=== PATIENT | female | born 1975 | race Caucasian/White ===

== ENCOUNTER 2023-04-02 09:42 | Emergency (ER) | payer OTHER, SELFPAY ==
[2023-04-02 09:56] VITALS: BP 116/78; PULSE 93; RESP 16; TEMP 36.6; O2SAT 100; BMI 32.9
--- NOTE | 2023-04-02 10:16 | CRLHL7_ITS ---
For Patients: As a result of the Century Cures Act, medical imaging exams and procedure reports are released immediately into your electronic medical record. You may view this report before your referring provider. If you have questions, please contact your health care provider. INDICATION: THIGH AND KNEE PAIN COMPARISON: None. TECHNIQUE: A compression venous ultrasound exam was performed of the left lower extremity using crawley-scale imaging, color Doppler and spectral Doppler analysis. FINDINGS: Sonographic imaging of the left lower extremity demonstrates normal compressibility and color Doppler venous blood flow within the common femoral vein, deep femoral vein, and the proximal greater saphenous vein. Within the thigh, the femoral vein is patent and compressible. At a lower level, the popliteal and posterior tibial veins also show normal compressibility and color Doppler venous blood flow. Limited imaging of the contralateral groin demonstrates a normal spectral waveform and color Doppler venous blood flow within the right common femoral vein. IMPRESSION: Normal venous ultrasound exam. No evidence of deep vein thrombosis within the left lower extremity. Dictated by Segun Ahn MD @ 04/02/2023 11:01:58 AM (Electronically Signed)
[2023-04-02] MEDS: ACETAMINOPHEN 500 MG TABLET 1000 MG PO (10:24)
--- NOTE | 2023-04-02 11:10 | ED_ITS ---
HPI - General Adult General Chief complaint: Extremity Pain/Injury, Lower Stated complaint: Leg pain, mono Time Seen by Provider: 04/02/23 09:58 History of Present Illness HPI narrative: 47 yo previously healthy female presenting to the ER today for pain involving her left anterolateral thigh and left knee. His crush go with good she does have a history of a previous partial ACL injury that was treated with physical therapy years ago. She also is currently recovering from mono and has been sick that for the past several weeks. She had a slip and fall injury that occurred perhaps 6 or 8 weeks ago when she was walking down a hill. Ever since then she has had some mild pain involving her left anterolateral thigh (lateral quad muscles) and sometimes down into her left knee. It has been persistent over time. She is typically able to manage it with ibuprofen. It got a little bit worse since yesterday and was not controlled with ibuprofen last night. No clear reason for to get worse. No fevers. No swelling. No redness. No bruising. No swelling or pain in her right leg. No associated hip pain or back pain. She called the clinic triage line and instructed to come to the ER to get a DVT ultrasound given the leg pain. She has no history of DVT or PE. No shortness of breath. Related Data Home Medications Medication Instructions Recorded Confirmed lisinopril 10 1 tab PO DAILY 04/02/23 04/02/23 mg-hydrochlorothiazide 12.5 mg tablet Previous Rx's Medication Instructions Recorded cyclobenzaprine 10 mg tablet 5 - 10 mg (0.5 - 1 x 10 mg) PO TID 04/02/23 PRN muscle spasm #10 tabs Allergies Allergy/AdvReac Type Severity Reaction Status Date / Time No Known Drug Allergies Allergy Verified 04/02/23 09:56 [facility] Social History Smoking Status: Never smoker How often do you have a drink containing alcohol: never AUDIT-C Alcohol total score: 0 Non-prescribed substance use: denies use Exam Narrative: Exam Narrative: Constitutional: Appears well-developed and well-nourished. Alert. Conversant. Non toxic. HENT: Head: Atraumatic. Nose: Nose normal. Mouth/Throat: Oral mucosa is clear and moist. no trismus. Pharynx normal. Tonsils symmetric. No tonsillar enlargement, erythema, or exudate. Eyes: Conjunctivae normal. EOM normal. Pupils equal, round, and reactive to light. No scleral icterus. Neck: Normal range of motion. Neck supple. No tracheal deviation present. Cardiovascular: Normal rate, regular rhythm. No gallop. No friction rub. No murmur heard. Symmetric PT and DP artery pulses Pulmonary/Chest: Effort normal. No stridor. No respiratory distress. Abdominal: Soft. Bowel sounds normal. No distension. No mass. No tenderness. No rebound. No guarding. Musculoskeletal: RUE: Normal range of motion. No tenderness. No deformity LUE: Normal range of motion. No tenderness. No deformity RLE: Normal range of motion. No edema. No tenderness. No deformity LLE: Normal range of motion. No edema. She endorses pain in the anterolateral distal half of her thigh. Is not really tender there and if anything feels better when it is palpated. Normal inspection. No redness. No warmth. No rash. No bruising. No tenderness over the lumbar spine, SI joints, hip. Norm al flexion and extension of the hip and knee. She does have a little bit of pain with flexing her knee. Examination of the knee reveals no definite ligamentous laxity but possibly as subtle anterior drawer sign. No bony tenderness over the patella, proximal tibia, proximal fibula. This does not reproduce her leg pain. Lower extremity is nontender. No calf swelling or edema. Ankle, foot are normal Lymph: No cervical adenopathy. Neurological: Alert and oriented to person, place, and time. Normal strength. CN II-VII intact. No sensory deficit. GCS eye subscore is 4. GCS verbal subscore is 5. GCS motor subscore is 6. Normal coordination Skin: Skin is warm and dry. No rash noted. No pallor. Normal capillary refill. Psychiatric: Normal mood. Normal affect. Const: Vital Signs, click to edit/add: Vital Signs - 24 hr 04/02/23 09:56 Temperature 97.9 F Pulse Rate [Right Pulse Oximeter] 93 Respiratory Rate 16 Blood Pressure [Ri ght Upper Arm] 116/78 Pulse Oximetry 100 Oxygen Delivery Me thod Room Air Course Vital Signs Vital signs: Initial Vital Signs Temperature 97.9 F 04/02/23 09:56 Temperature Source Temporal Artery Scan 04/02/23 09:56 Pulse Rate 93 04/02/23 09:56 Respiratory Rate 16 04/02/23 09:56 Blood Pressure 116/78 04/02/23 09:56 Blood Pressure Mean 90 04/02/23 09:56 Blood Pressure Position Sitting 04/02/23 09:56 Pulse Oximetry 100 04/02/23 09:56 Oxygen Delivery Method Room Air 04/02/23 09:56 Vital Signs Temperature 97.9 F 04/02/23 09:56 Pulse Rate 93 04/02/23 09:56 Respiratory Rate 16 04/02/23 09:56 Blood Pressure 116/78 04/02/23 09:56 Pulse Oximetry 100 04/02/23 09:56 Oxygen Delivery Method Room Air 04/02/23 09:56 Temperature 97.9 F 04/02/23 09:56 Pulse Rate 93 04/02/23 09:56 Respiratory Rate 16 04/02/23 09:56 Blood Pressure 116/78 04/02/23 09:56 Pulse Oximetry 100 04/02/23 09:56 Oxygen Delivery Method Room Air 04/02/23 09:56 Medical Decision Making MDM Narrative Medical decision making narrative: This is a very pleasant 47-year-old female with a distant history of a partial left ACL injury. She has had several weeks of left anterolateral thigh and knee pain after a fall. She was sent here to the ER today by clinic to be ruled out for DVT. Fortunately DVT ultrasound is negative. She is not have any symptoms of PE. At this point clinical suspicion would favor a musculoskeletal cause for pain. Given the ability to ambulate on the problem leg now for about 6 weeks, likelihood of fracture is very low. Will hold off on radiography, using shared decision-making. Discussed the potential need for MRI of her knee or her thigh for further evaluation. This is not available here in the ER today. She will need outpatient follow-up with Orthopedic surgery. She will follow-up with [place] [facility] within the next 3-7 days. Precautions for return to the are reviewed. For temporary pain management she will continue on ibuprofen. Recommended 600 mg q.6 hours p.r.n.. Add acetaminophen 1000 mg q.6 hours p.r.n.. Also add a prescription for Flexeril that she can use her muscle relaxer. Discussed sedation precautions with this. She plans to use it only if she is having pain the keeps her awake at night. Imaging Data US leg: Radiologist's impression: IMPRESSION: Normal venous ultrasound exam. No evidence of deep vein thrombosis within the left lower extremity. Discharge Plan Discharge Clinical Impression: Acute thigh pain Patient Disposition: Home, Self-Care Condition: Stable Instructions: Leg Pain (ED) Additional Instructions: Please continue to use Ibuprofen (600mg every 6 hours as needed) and Tylenol (1000mg every 6 hours as needed) for pain. Add muscle relaxers if needed, but be careful because muscle relaxers cause side effects such as drowsiness and dizziness. Please follow up with the [facility] orthopedic clinic within 3-7 days for a recheck. Call [phone] to schedule the appointment. If you have worsening symptoms such as increasing pain, numbness or weakness in your leg, fever, swelling or bruising of your leg, trouble breathing, come back to the ER right away. Prescriptions: New cyclobenzaprine 10 mg tablet 5 - 10 mg PO TID PRN (Reason: muscle spasm) Qty: 10 0RF No Action lisinopril-hydrochlorothiazide 10-12.5 mg tablet 1 tab PO DAILY Follow Up/Referrals: Ondina Chávez MD [Primary Care Provider] - Stand Alone Forms: LookIt Info Instructions
== END 2023-04-02 11:41 | disposition home or self-care (01) ==
PROVIDERS: Emergency Provider Emergency Medicine; PCP Family Medicine
DX: M79.652 Pain in left thigh (principal)
CPT/HCPCS: 93971; 99283; 99284; A9270

== ENCOUNTER 2023-05-01 12:44 | Outpatient (RCR) | payer OTHER, SELFPAY | END 2023-06-26 14:11 | disposition home or self-care (01) | PROVIDERS: PCP Family Medicine; Visit Provider Orthopaedic Surgery Sports Medicine | DX: S83.512A Sprain of anterior cruciate ligament of left knee, initial encounter (principal); M25.562 Pain in left knee; Z74.09 Other reduced mobility; R53.1 Weakness; Z51.89 Encounter for other specified aftercare | CPT/HCPCS: 97110; 97140; 97161 ==

== ENCOUNTER 2023-05-08 19:11 | Outpatient (CLI) | payer OTHER, SELFPAY ==
--- NOTE | 2023-05-08 19:45 | MR_ITS ---
[address] [address] Phone:?[phone] Fax:?[phone] Referring Physician Information: Pravin Chavez M.D. [id number] [facility] [address] Phone:?[phone] Fax:?[phone] Patient:Minh Cota D.O.B:?1975 Sex:?Female Phone:?[phone] [facility] MRN:?[id number] Exam Date:?05/08/2023 EXAM: MRI OF THE LEFT FEMUR, WITH AND WITHOUT CONTRAST CLINICAL: Evaluate osseous lesions. COMPARISONS: MRI 05/03/2023. X-rays 04/19/2023. TECHNICAL: Multiplanar multisequence MRI of the left femur was obtained without the use of contrast. Coronal STIR, coronal T1, coronal T2, axial PD fat-sat, axial T1, axial T1 fat-sat pre and post contrast and coronal T1 fat-sat pre and post contrast images of the bilateral femurs were obtained. Sagittal STIR and T1 fat-sat post contrast images of the left femur were also obtained. SEDATION: None. CONTRAST: 15 mL of dotarem was injected intravenously. FINDINGS: Multiple enhancing lesions are seen within the proximal and distal femurs bilaterally, with the proximal lesions not entirely included in the [id number]. Largest lesion within the distal right femoral diaphysis measures approximately 8.8 cm in craniocaudal length as seen on coronal series 3 image 12 with the lesion within the distal left femoral metaphysis measuring approximately 5.8 cm in craniocaudal dimension. Other femoral lesions noted more proximally. There is scattered periosteal edema about the femurs. Partially visualized osseous lesions are also seen within the imaged proximal tibias bilaterally. No discrete osseous fracture is identified. No myotendinous injury is identified. IMPRESSION: 1. Multiple lesions within the visualized femurs and imaged proximal tibias bilaterally concerning for malignancy/metastatic disease. Recommend follow-up with whole body nuclear medicine bone scan for further evaluation. NANCY Electronically signed on 05/09/2023 1:14:00 PM by Les Madrid D.O.
== END 2023-05-08 19:12 | disposition home or self-care (01) ==
LOC: MRI 19:12
PROVIDERS: PCP Family Medicine; Visit Provider Orthopaedic Surgery Sports Medicine
DX: D49.2 Neoplasm of unspecified behavior of bone, soft tissue, and skin (principal); M89.9 Disorder of bone, unspecified
CPT/HCPCS: 73720; A9575

== ENCOUNTER 2023-08-08 12:02 | Outpatient (CLI) | payer OTHER, SELFPAY ==
--- OUTSIDE RECORDS SUMMARY | 2023-08-09 18:59 | XMS_ITS | Clinical Summary ---
Author Name Unknown Organization [facility] Address [address] [place] [address] Care Team Providers Care Paint Tester Name Role Phone Elsewhere, Pcp Primary Care Provider Unavailabl e Source Comments Patient records contain information from all sites at [facility]. For routine questions regarding patient records, call [phone] during business hours, M-F 8:00 AM - 5:00 PM Central Time. Record requests for emergency care only can be directed to [phone] at any time.[facility] Allergies No known active allergies Medications Medication [...] Active Problems Problem Noted Date Diagnosed Date Sepsis 08/08/2023 Melanoma Trunk 06/04/2023 Encounters Date Type Department Care Team Description 08/09/2023 12:40 AM MERCHANDISING TEAM LEAD Ancillary Procedure Department of Radiology in [place], [place] [address] [place] [phone] Jose Cavanaugh APRN, C.N.P. Arrived 08/09/2023 12:21 AM MERCHANDISING TEAM LEAD - 08/09/2023 3:38 PM MERCHANDISING TEAM LEAD Hospital Encounter [facility], Tenth Floor [address] [place] [address] Jose Cavanaugh APRN, C.N.P. Ciaran Reese M.D. Dimou, Anastasios, M.D. Ahmad, Sumera R, M.B.B.S. Sepsis (HCC) (Primary Dx); Multiple Myeloma Not Having Achieved Remission (HCC) Discharge Disposition: Home or Self Care 08/09/2023 Clinical Communication Department of Oncology in [place], [place] [address] [place] [phone] Anahy Amezcua R.N., O.C.N. 08/09/2023 Documentation Department of Oncology in [place], [place] [address] [place] [phone] Pérez Zuniga M.D., Ph.D. 08/09/2023 Hospital Encounter [facility] Bed Planning Felicity Vargas M.D. Jhonathan Gray M.D., Ph.D. 08/08/2023 Intake [facility] 08/08/2023 Clinical Communication Department of Oncology in [place], [place] [address] [place] [phone] Cherelle Sanabria M.D. 08/06/2023 2:30 PM MERCHANDISING TEAM LEAD Clinical Communication Virtual Review in [place], [place] [address] [place] [address] 08/04/2023 Specialty Pharmacy [facility] [address] [place] [address] Demetrius Londono Jr., R.Ph. 07/29/2023 10:15 AM MERCHANDISING TEAM LEAD Telemedicine Department of Palliative Care in [place], [place] [address] [place] [phone] Valentine Kelsey M.D., M.S. Melanoma Trunk (HCC) (Primary Dx); Secondary Malignant Neoplasm Bone (HCC); Pain Cancer Associated; Palliative Care 07/26/2023 1:15 PM MERCHANDISING TEAM LEAD Telemedicine Department of Palliative Care in [place], [place] [address] [place] [phone] Marija Olivas APRN, C.N.P., M.S.N. Meka Rinaldi D.N.P., R.N., [facility] Palliative Care 07/17/2023 4:15 PM MERCHANDISING TEAM LEAD Comprehensive Visit Department of Dermatology in [place], [place] [address] [place] [phone] Naida Mejia P.A.-C., M.S. Anh Lee M.D. Nevi Multiple (Primary Dx); Melanoma Trunk (HCC); Secondary Malignant Neoplasm Bone (HCC); Screening Examination Skin Cancer; Dermatoheliosis; Tumor Skin Uncertain Behavior 07/17/2023 12:45 PM MERCHANDISING TEAM LEAD Ancillary Procedure Department of Ophthalmology 07/17/2023 11:45 AM MERCHANDISING TEAM LEAD Office Visit Department of Ophthalmology in [place], [place] [address] [place] [phone] Wolfgang Larose M.D. Hemorrhage Retinal Bilateral (Primary Dx); Melanoma Trunk (HCC) 07/17/2023 11:30 AM MERCHANDISING TEAM LEAD Ancillary Procedure Department of Ophthalmology in [place], [place] [address] [place] [phone] Phi Palm M.D., Ph.D. Hemorrhage Retinal Bilateral 07/17/2023 10:40 AM MERCHANDISING TEAM LEAD Ancillary Procedure Department of Ophthalmology in [place], [place] [address] [place] [phone] Phi Palm M.D., Ph.D. 07/17/2023 10:00 AM MERCHANDISING TEAM LEAD Procedure visit Department of Ophthalmology in [place], [place] [address] [place] [phone] Phi Palm M.D., Ph.D. Suleiman Vargas Hemorrhage Retinal Bilateral 07/17/2023 12:10 AM MERCHANDISING TEAM LEAD Ancillary Procedure Department of Dermatology 07/17/2023 12:05 AM MERCHANDISING TEAM LEAD Ancillary Procedure Department of Dermatology 07/17/2023 Ancillary Procedure Department of Ophthalmology 07/16/2023 Clinical Communication Department of Palliative Care in [place], [place] [address] [place] [phone] Meka Rinaldi D.N.P., R.N., [facility] 07/10/2023 Orders Only Department of Ophthalmology in [place], [place] [address] [place] [phone] Ani Bashir 07/05/2023 2:30 PM MERCHANDISING TEAM LEAD Comprehensive Visit Department of Ophthalmology in [place], [place] [address] [place] [phone] Wolfgang Larose M.D. Hemorrhage Retinal Bilateral (Primary Dx) 07/05/2023 Clinical Communication Department of Oncology in [place], [place] [address] [place] [phone] Anahy Amezcua R.N., O.C.N. Sx - retinal hemorrhaging 07/04/2023 12:20 PM MERCHANDISING TEAM LEAD Office Visit Department of Oncology in [place], [place] [address] [place] [address] Pérez Zuniga M.D., Ph.D. Melanoma Trunk (HCC) (Primary Dx); Nausea 07/04/2023 10:30 AM MERCHANDISING TEAM LEAD Clinical Support Department of Palliative Care in [place], [place] [address] [place] [address] Valentine Kelsey M.D., M.S. Inés Wiley R.Makenzie. Melanoma Trunk (HCC); Nausea 07/04/2023 9:36 AM MERCHANDISING TEAM LEAD - 07/04/2023 11:59 PM MERCHANDISING TEAM LEAD Hospital Encounter Department of Laboratory Medicine and Pathology, [facility] in [place], [place] [address] [place] [phone] Pérez Zuniga M.D., Ph.D. Melanoma Trunk (HCC); Secondary Malignant Neoplasm Bone (HCC); Other Jail Current Drug Therapy Discharge Disposition: Home or Self Care 07/04/2023 Clinical Communication Department of Ophthalmology in [place], [place] [address] [place] [phone] Provider, Unknown 07/04/2023 Clinical Communication Department of Palliative Care in [place], [place] [address] [place] [phone] Inés Wiley, R.N. 07/01/2023 3:00 PM MERCHANDISING TEAM LEAD Telemedicine Department of Palliative Care in [place], [place] [address] [place] [phone] Valentine Kelsey M.D., M.S. Melanoma Trunk (HCC) (Primary Dx); Nausea; Pain Cancer Associated; Palliative Care 07/01/2023 Clinical Communication [facility] [address] [place] [phone] Cherelle Brooks C.Ph.T. Redirect Prescriptions 06/24/2023 Clinical Communication Department of Palliative Care in [place], [place] [address] [place] [phone] Valentine Kelsey M.D., M.S. Rx Denial (XTAMPZA ER 9 MG CAPSULES) 06/21/2023 8:30 AM MERCHANDISING TEAM LEAD Comprehensive Visit Department of Palliative Care in [place], [place] [address] [place] [phone] Pérez Zuniga M.D., Ph.D. Valentine Kelsey M.D., M.S. Rachelle Oliver R.N. Melanoma Trunk (HCC); Secondary Malignant Neoplasm Bone (HCC) 06/20/2023 4:40 PM MERCHANDISING TEAM LEAD Office Visit Department of Oncology in [place], [place] [address] [place] [phone] Pérez Zuniga M.D., Ph.D. Melanoma Trunk (HCC) (Primary Dx); Secondary Malignant Neoplasm Bone (HCC); Other [place] Current Drug Therapy 06/20/2023 3:00 PM MERCHANDISING TEAM LEAD Nurse Only Department of Oncology in [address] [phone] Laura Dalal M.D. Akosua Liz D.N.PSantosh, R.N. 06/20/2023 12:07 PM MERCHANDISING TEAM LEAD - 06/20/2023 11:59 PM MERCHANDISING TEAM LEAD Hospital Encounter Department of Cardiovascular Diseases in [address] [phone] Pérez Zuniga M.D., Ph.D. Melanoma Trunk (HCC); Secondary Malignant Neoplasm Bone (HCC); Other [place] Current Drug Therapy Discharge Disposition: Home or Self Care 06/20/2023 11:46 AM MERCHANDISING TEAM LEAD - 06/20/2023 12:06 PM MERCHANDISING TEAM LEAD Hospital Encounter Department of Laboratory Medicine and Pathology, [facility] in [address] [phone] Pérez Zuniga M.D., Ph.D. Melanoma Trunk (HCC); Secondary Malignant Neoplasm Bone (HCC) Discharge Disposition: Home or Self Care 06/17/2023 7:00 AM MERCHANDISING TEAM LEAD Clinical Communication Virtual Review in [place], [place] [address] [place] [address] Pre-visit Intake 06/10/2023 Clinical Communication Department of Oncology in [address] [phone] Akosua Liz D.N.P., R.N. 06/05/2023 Clinical Communication [facility] [address] [place] [phone] Joanne Yoo C.Ph.T. Specialty Medication Delivery 06/05/2023 Specialty Pharmacy [facility] [address] [place] [phone] Yessi Patel, Pharm.D., R.Ph. Melanoma Trunk (HCC) (Primary Dx) 06/05/2023 Specialty Pharmacy [facility] [address] [place] [phone] Yessi Patel, Pharm.D., R.Ph. 06/05/2023 Clinical Communication Department of Oncology in [place], [place] [address] [place] [phone] Anahy Amezcua R.N., O.C.N. 06/04/2023 4:40 PM MERCHANDISING TEAM LEAD Education Department of Oncology in [place], [place] [address] [place] [phone] Pérez Zuniga M.D., Ph.D. Anahy Amezcua R.N., O.C.N. Melanoma Trunk (HCC); Secondary Malignant Neoplasm Bone (HCC) 06/04/2023 2:20 PM MERCHANDISING TEAM LEAD Comprehensive Visit Department of Oncology in [place], [place] [address] [place] [phone] Pérez Zuniga M.D., Ph.D. Melanoma Trunk (HCC) (Primary Dx); Secondary Malignant Neoplasm Bone (HCC); Other Jail Current Drug Therapy 06/04/2023 7:35 AM MERCHANDISING TEAM LEAD Ancillary Procedure Department of Radiology in [place], [place] [address] [place] [phone] Pérez Zuniga M.D., Ph.D. Melanoma Trunk (HCC); Secondary Malignant Neoplasm Bone (HCC) 06/04/2023 7:35 AM MERCHANDISING TEAM LEAD Ancillary Procedure Department of Radiology in [place], [place] [address] [place] [address] Pérez Zuniga M.D., Ph.D. Melanoma Trunk (HCC); Secondary Malignant Neoplasm Bone (HCC) 06/04/2023 Orders Only [facility] [address] [place] [phone] Joy Hernandez, PharmSantoshDSantosh, R.Ph. 05/30/2023 1:00 PM MERCHANDISING TEAM LEAD Lab RST RO LMP [address] [place] [phone] Naida Mejia P.A.-C., M.S. Melanoma Trunk (HCC); Secondary Malignant Neoplasm Bone (HCC) 05/29/2023 5:50 PM MERCHANDISING TEAM LEAD - 05/29/2023 11:59 PM MERCHANDISING TEAM LEAD Hospital Encounter Department of Radiology, [facility] in [place], [place] [address] [place] [address] Naida Mejia P.A.-C., M.S. Melanoma Trunk (HCC); Secondary Malignant Neoplasm Bone (HCC) Discharge Disposition: Home or Self Care 05/29/2023 5:21 PM MERCHANDISING TEAM LEAD - 05/29/2023 5:49 PM MERCHANDISING TEAM LEAD Hospital Encounter Department of Laboratory Medicine and Pathology, [facility] in [place], [place] [address] [place] [address] Naida Mejia P.A.-C., M.S. Melanoma Trunk (HCC); Secondary Malignant Neoplasm Bone (HCC) Discharge Disposition: Home or Self Care 05/29/2023 2:15 PM MERCHANDISING TEAM LEAD Admin Visit Department of Oncology in [place], [place] [address] [place] [phone] 05/29/2023 Clinical Communication Department of Oncology in [place], [place] [address] [place] [phone] Naida Mejia P.A.-C., M.S. Pre-visit Testing Orders 05/28/2023 Clinical Communication Department of Oncology in [place], [place] [address] [place] [phone] Naida Mejia P.A.-C., M.S. Pre-visit Testing Orders (New Reg) 05/24/2023 7:55 AM MERCHANDISING TEAM LEAD Lab RST RO LMP [address] [place] [phone] Naida Mejia P.A.-C., M.S. Melanoma Trunk (HCC); Secondary Malignant Neoplasm Bone (HCC) 05/23/2023 Clinical Communication Department of Oncology in [place], [place] [address] [place] [phone] Naida Mejia P.A.-C., M.S. 05/23/2023 Clinical Communication Department of Oncology in [place], [place] [address] [place] [phone] Provider, Unknown [facility] (Med Onc) 05/22/2023 Clinical Communication Department of Oncology in [place], [place] [address] [place] [phone] Naida Mejia P.A.-C., M.S. 05/22/2023 Clinical Communication Department of Oncology in [place], [place] [address] [place] [phone] Prescheduling, Provider Pre-visit Intake (NEW REG ) 05/13/2023 11:59 PM CDT Hospital Encounter Department of Radiology, [facility], in [place], [place] [address] [place] [address] Lacho Joshi M.D. Canceled (Patient: Request) Discharge [...] = 0.6 oz pur e alcohol) Occasional [facility] Utilities Answer Date Recorded In the past [...] situation today? I have a [facility] place to live 07/10/2023 Sex and Gender Information Value Date Recorded Sex Assigned at Female 05/31/2023 8:26 AM MERCHANDISING TEAM LEAD Gender Identity Female 05/31/2023 8:26 AM MERCHANDISING TEAM LEAD Sexual Orientation Straight 05/31/2023 8: 26 AM MERCHANDISING TEAM LEAD Last Filed Vital Signs Vital Sign Reading Time Taken Comments Blood Pressure 97/61 08/09/2023 3:00 PM MERCHANDISING TEAM LEAD Pulse 96 08/09/2023 3:00 PM MERCHANDISING TEAM LEAD Temperature 36.9 ??C (98.5 ??F) 08/09/2023 3:00 PM CS T Respiratory Rate 18 08/09/2023 3:00 PM MERCHANDISING TEAM LEAD Oxygen Saturation 99% 08/09/2023 3:00 PM MERCHANDISING TEAM LEAD Inhaled Oxygen Concentration - - Weight 79.3 kg (174 lb 13.2 oz) 08/09/2023 7:30 AM MERCHANDISING TEAM LEAD Height 154.9 cm (5' 1) 08/09/2023 8:00 AM MERCHANDISING TEAM LEAD Body Mass Index 33.03 08/09/2023 7:30 AM MERCHANDISING TEAM LEAD Plan of Treatment Upcoming Encounters Date Type Department Care Team (Late st Contact Info) Description 08/19/2023 6:40 AM MERCHANDISING TEAM LEAD Appointment Department of Laboratory Medicine and Pathology, [facility] in [place], [place] [address] [place] [phone] Pérez Zuniga M.D., Ph.D. [address] [place] [phone] 08/19/2023 7:00 AM MERCHANDISING TEAM LEAD Ancillary Procedure Department of Cardiovascular Medicine in [address] [phone] Pérez Zuniga M.D., Ph.D. [address] [place] [phone] 08/19/2023 9:00 AM MERCHANDISING TEAM LEAD Appointment Department of Radiology, [facility] in [place], [place] [address] [place] [phone] Pérez Zuniga M.D., Ph.D. [address] [place] [phone] 08/19/2023 3:40 PM MERCHANDISING TEAM LEAD Office Visit Department of Oncology in [address] [phone] Zhane Granados APRN, C.N.P. [address] [place] [phone] 08/21/2023 10:15 AM MERCHANDISING TEAM LEAD Clinical Support Department of Palliative Care in [place], [place] [address] [place] [address] Serenity Kelsey, Eliane. [address] [place] [address] Meka Rinaldi D.N.P., R.N., [facility] Health Maintenance Due Date Last Done Comments CT Colonography 1977 Cervical Cancer Screening 1977 Cologuard 1977 Colonoscopy 1977 Colorectal Cancer Screening 1977 FIT 1977 Generalized Anxiety (MOJGAN-7) 1977 HIV Screening 1977 Hepatitis B Vaccines (1 of 3 - 3-dose series) 1977 Hepatitis C Screening 1977 Depression Screening (Annual PHQ-2) 07/15/2023 Controlled Substance Agreement 08/09/2023 Controlled Substance Monitoring (PHQ-9) 08/09/2023 Controlled Substance Monitoring 08/09/2023 Opioid Risk Tool (ORT) 08/09/2023 PEG assessment for Opioid therapy 08/09/2023 Mammogram 10/23/2023 10/22/2022 Creatinine Level (Kidney Function Test) 08/09/2024 08/09/2023, 07/04/2023, 06/20/2023, Additional history exists Potassium Level 08/09/2024 08/09/2023, 07/16, 07/04/2023, Additional history exists Sodium Level 08/09/2024 08/09/2023, 07/16, 07/04/2023, Additional history exists Lipid (Cholesterol) Screening 08/12/2025 08/12/2020 Fasting Glucose for Diabetes Screening 08/09/2026 08/09/2023, 08/09/2023, 07/04/2023, Additional history exists DTaP,Tdap,and Td Vaccines (4 - Td or Tdap) 04/13/2031 04/13/2021, 06/26/2010, 07/28/2003, Additional history exists COVID-19 Vaccine Completed 06/05/2023, , 04/19/2021, Additional history exists Influenza Vaccine Completed 06/05/2023, , 03/23/2021, Additional history exists Pneumococcal vaccine (0-64 years) Aged Out No longer eligible based on patient's age to complete this topic Procedures Procedure Name Priority Date/Time Associated Diagnosis Comments HEPATIC FUNCTION PANEL, S Timed 08/09/2023 12:22 PM MERCHANDISING TEAM LEAD US GALLBLADDER AND OR BILIARY DUCTS RAD - Semiurgent (Fast; most ED patients; some inpatients) 08/09/2023 2:44 AM MERCHANDISING TEAM LEAD INTERPRETATION OF OUTSIDE CT ABDOMEN AND OR PELVIS RAD - Semiurgent (Fast; most ED patients; some inpatients) 08/09/2023 2:14 AM MERCHANDISING TEAM LEAD ECG STAT 08/09/2023 12:49 AM MERCHANDISING TEAM LEAD VBG & LYTES CG8+, POCT, B STAT 08/09/2023 12:49 AM MERCHANDISING TEAM LEAD LACTATE FOR SEPSIS WITH REFLEX, POCT STAT 08/09/2023 12:49 AM MERCHANDISING TEAM LEAD LIPASE, S/P STAT 08/09/2023 12:49 AM MERCHANDISING TEAM LEAD HEPATIC FUNCTION PANEL, S STAT 08/09/2023 12:49 AM MERCHANDISING TEAM LEAD BASIC METABOLIC PANEL, S/P STAT 08/09/2023 12:49 AM MERCHANDISING TEAM LEAD CBC WITH DIFFERENTIAL, B STAT 08/09/2023 12:49 AM MERCHANDISING TEAM LEAD OUTSIDE CT BODY Routine 08/08/2023 6:45 PM MERCHANDISING TEAM LEAD OUTSIDE DX CHEST Routine 08/08/2023 6:10 PM MERCHANDISING TEAM LEAD DERMATOPATHOLOGY Routine 07/17/2023 4:41 PM MERCHANDISING TEAM LEAD 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) Screening Examination Skin Cancer Dermatoheliosis Nevi Multiple ANGIOGRAPHY - OU - BOTH EYES Routine 07/17/2023 12:55 PM MERCHANDISING TEAM LEAD Hemorrhage Retinal Bilateral OPHTHALMOLOGY IMAGE EXAM Routine 07/17/2023 12:45 PM MERCHANDISING TEAM LEAD FUNDUS PHOTOS - OU - BOTH EYES Routine 07/17/2023 11:52 AM MERCHANDISING TEAM LEAD Hemorrhage Retinal Bilateral DERMATOLOGY IMAGE EXAM Routine 12:10 AM MERCHANDISING TEAM LEAD DERMATOLOGY IMAGE EXAM Routine 12:05 AM MERCHANDISING TEAM LEAD OPHTHALMOLOGY IMAGE EXAM Routine 07/17/2023 12:00 AM MERCHANDISING TEAM LEAD ECG Routine 07/04/2023 10:08 AM MERCHANDISING TEAM LEAD 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) Other [place] Current Drug Therapy CBC WITH DIFFERENTIAL, B Routine 07/04/2023 9:50 AM MERCHANDISING TEAM LEAD 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) Other Jail Current Drug Therapy THYROID FUNCTION CASCADE, S Routine 07/04/2023 9:49 AM MERCHANDISING TEAM LEAD 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) Other [place] Current Drug Therapy COMPREHENSIVE METABOLIC PANEL, S/P Routine 07/04/2023 9:49 AM MERCHANDISING TEAM LEAD 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) Other [place] Current Drug Therapy (TTE) 2D ECHO DOPPLER COLOR Routine 06/20/2023 1:28 PM MERCHANDISING TEAM LEAD 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) Other Jail Current Drug Therapy TYPE AND SCREEN Routine 06/20/2023 12:01 PM MERCHANDISING TEAM LEAD 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) THYROID FUNCTION CASCADE, S Routine 06/20/2023 12:01 PM MERCHANDISING TEAM LEAD 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) COMPREHENSIVE METABOLIC PANEL, S/P Routine 06/20/2023 12:01 PM MERCHANDISING TEAM LEAD 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) CBC WITH DIFFERENTIAL, B Routine 06/20/2023 12:01 PM MERCHANDISING TEAM LEAD 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) ECG Routine 06/04/2023 4:02 PM MERCHANDISING TEAM LEAD 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) INTERPRETATION OF OUTSIDE NM PET SCAN RAD - Routine (most inpatients and all outpatients) 06/04/2023 7:56 AM MERCHANDISING TEAM LEAD 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) INTERPRETATION OF OUTSIDE MR EXTREMITY RAD - Routine (most inpatients and all outpatients) 06/04/2023 7:54 AM MERCHANDISING TEAM LEAD 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) MR BRAIN WITHOUT AND WITH IV CONTRAST RAD - Routine (most inpatients and all outpatients) 05/29/2023 7:09 PM MERCHANDISING TEAM LEAD 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) TX T4 FREE Routine 05/29/2023 5:35 PM MERCHANDISING TEAM LEAD THYROPEROXIDASE (TPO) ABS, S Routine 05/29/2023 5:35 PM MERCHANDISING TEAM LEAD THYROID FUNCTION CASCADE, S Routine 05/29/2023 5:35 PM MERCHANDISING TEAM LEAD 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) LACTATE DEHYDROGENASE (LD), S Routine 05/29/2023 5:35 PM MERCHANDISING TEAM LEAD 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) COMPREHENSIVE METABOLIC PANEL, S/P Routine 05/29/2023 5:35 PM MERCHANDISING TEAM LEAD 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) CBC WITH DIFFERENTIAL, B Routine 05/29/2023 5:35 PM MERCHANDISING TEAM LEAD 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) OUTSIDE NM PET Routine 05/15/2023 11:00 AM CDT BRAF/KIT MUTATION ANALYSIS, TUMOR Routine 05/13/2023 8:27 AM CDT 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) PATHOLOGY REVIEW OF OUTSIDE MATERIAL Routine 05/13/2023 1:26 AM CDT 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) OUTSIDE DX CHEST Routine 05/09/2023 1:45 PM CDT from Last 3 Months Results * (ABNORMAL) Hepatic Function Panel (08/09/2023 12:22 PM MERCHANDISING TEAM LEAD) Only the most recent of2 resultswithin the time period is included. Bilirubin, Total, S 1.3(H) 0.0 - 1.2 mg/dL 08/09/2023 1:29 PM MERCHANDISING TEAM LEAD DTL Bilirubin, Direct, S 1.1(H) 0.0 - 0.3 mg/dL 08/09/2023 1:29 PM MERCHANDISING TEAM LEAD DTL Aspartate Aminotransferase (AST), S 154(H) 8 - 43 U/L 08/09/2023 1:29 PM MERCHANDISING TEAM LEAD DTL Alanine Aminotransferase (ALT), S 127(H) 7 - 45 U/L 08/09/2023 1:29 PM MERCHANDISING TEAM LEAD DTL Alkaline Phosphatase, S 396(H) 35 - 104 U/L 08/09/2023 1:29 PM MERCHANDISING TEAM LEAD DTL Albumin, S 3.5 3.5 - 5.0 g/dL 08/09/2023 1:29 PM MERCHANDISING TEAM LEAD DTL Protein, Total, S 6.2(L) 6.3 - 7.9 g/dL 08/09/2023 1:29 PM MERCHANDISING TEAM LEAD DTL Blood (Blood, Venous) 08/09/2023 12:22 PM MERCHANDISING TEAM LEAD 08/09/2023 1:14 PM MERCHANDISING TEAM LEAD Lesvia Ma APRN, C.N.P., M.S.N. LA B BLOOD ADD-ON [facility] [address] [place] [address], [facility] DTL [facility] [address] [place] [address] * US Gallbladder and or Biliary Ducts (08/09/2023 2:44 AM MERCHANDISING TEAM LEAD) Anatomical Region Laterality Modality Abdomen, Ultrasound RST LOS, Ultrasound ARZ LOS, Ultrasound FLA LOS N/A Ultrasound Impressions 08/09/2023 8:05 AM MERCHANDISING TEAM LEAD Cholelithiasis without evidence of acute cholecystitis. Narrative 08/09/2023 8:05 AM MERCHANDISING TEAM LEAD EXAM: US GALLBLADDER AND OR BILIARY DUCTS COMPARISON: 07/19/2023 CT abdomen pelvis. FINDINGS: Gallbladder: Sludge/non-shadowing gallstones within the nondistended gallbladder. No wall thickening or pericholecystic fluid. ??Negative sonographic Tello sign. Intrahepatic ducts: Not dilated. Common duct: Not dilated. Aorta: Normal caliber. Procedure Note Delano Sanders M.D. - 08/09/2023 EXAM: US GALLBLADDER AND OR BILIARY DUCTS COMPARISON: 07/19/2023 CT abdomen pelvis. FINDINGS: Gallbladder: Sludge/non-shadowing gallstones within the nondistendedgallbladder. No wall thickening or pericholecystic fluid. Negativesonographic Tello sign. Intrahepatic ducts: Not dilated. Common duct: Not dilated. Aorta: Normal caliber. IMPRESSION: Cholelithiasis without evidence of acute cholecystitis. Jose Cavanaugh APRN, C.N.P. IMG US TX OCEDURES * Interpretation of Outside CT Abdomen and or Pelvis (08/09/2023 2:14 AM MERCHANDISING TEAM LEAD) Anatomical Region Laterality Modality Abdomen, Pelvis, Abdominal R ST LOS, Abdominal ARZ LOS, Abdominal FLA LOS, Other N/A Computed Tomography Impressions 08/09/2023 5:35 AM MERCHANDISING TEAM LEAD 1. ??No evidence of cholangitis. 2. There is a new 13 x 20 mm nodule in the right lower lobe (09/04). This lesion has an irregular, ground glass border and contains an air bronchogram. Infection and metastatic disease are in the differential. 3. Interval increased size in multiple partially treated bone metastases. Narrative 08/09/2023 5:35 AM MERCHANDISING TEAM LEAD EXAM: ??INTERPRETATION OF OUTSIDE CT ABDOMEN AND OR PELVIS COMPARISON: ??05/15/2023 PET/CT Outside CT abdomen pelvis with IV contrast performed 08/08/2023. FINDINGS: There is a new 13 x 20 mm nodule in the right lower lobe (/). This lesion has an irregular, ground glass border and contains an air bronchogram. Infection and metastatic disease are in the differential. Marked interval reduced size of the masses described on the PET CT from 05/15/23 as abutting the uterus and cecum. These may represent metastatic disease to the ovaries - the right ovary contains a dominant cystic structure (2/104). The left ovary is enlarged with a complex multicystic structure, with hyperdense components (HU 38 2/121). Consider pelvic ultrasound for more detailed evaluation of the ovaries. There is a 2.7 x 4 cm solid, enhancing ovoid masslike lesion along the left uterine body which may represent a fibroid as this does not appear to have increased uptake on PET (2/122). Prominent adnexal vasculature bilaterally. Faint layering sludge within the nondistended gallbladder. Trace pericholecystic fluid, may be partially related to volume averaging. Nonacute appearance of the liver, spleen, pancreas, adrenal glands. Hepatic cyst or hemangioma, stable compared to the PET CT. No free intra-peritoneal air or ascites. Normal caliber small and large bowel. Negative appendix. The urinary bladder is unremarkable. No abdominal or pelvic lymphadenopathy. Innumerable osseous lesions, many of which have increased in size. For example, the ovoid lytic lesion in the left femoral neck measures 2.5 x 1.6 cm (; previously 2.1 x 1.3 cm), the lesion in the right femoral neck measures 2.3 x 2.6 cm (; previously 2.2 x 1.7 cm), and 1.1 x 1.4 cm at T8 (, ??previously 0.8 x 1.1 cm). These lesions appear treated, with sclerotic rims and some increased internal ossification is some of them. Stable height loss at the T10 superior endplate. Procedure Note Serenity Mireles M.D. - 08/09/2023 EXAM: INTERPRETATION OF OUTSIDE CT ABDOMEN AND OR PELVIS COMPARISON: 05/15/2023 PET/CT Outside CT abdomen pelvis with IV contrast performed 08/08/2023. FINDINGS: There is a new 13 x 20 mm nodule in the right lower lobe (09/04). Thislesion has an irregular, ground glass border and contains an airbronchogram. Infection and metastatic disease are in the differential. Marked interval reduced size of the masses described on the PET CT from05/15/23 as abutting the uterus and cecum. These may represent metastaticdisease to the ovaries - the right ovary contains a dominant cysticstructure (2/104). The left ovary is enlarged with a complex multicystic structure, with hyperdense components(HU 38 2/121). Consider pelvic ultrasound for more detailed evaluation ofthe ovaries. There is a 2.7 x 4 cm solid, enhancing ovoid masslike lesion along theleft uterine body which may represent a fibroid as this does not appear tohave increased uptake on PET (2/122). Prominent adnexal vasculature bilaterally. Faint layering sludge within the nondistended gallbladder. Tracepericholecystic fluid, may be partially related to volume averaging. Nonacute appearance of the liver, spleen, pancreas, adrenal glands.Hepatic cyst or hemangioma, stable compared to the PET CT. No freeintra-peritoneal air or ascites. Normal caliber small and large bowel.Negative appendix. The urinary bladder is unremarkable. No abdominal or pelviclymphadenopathy. Innumerable osseous lesions, many of which have increased in size. Forexample, the ovoid lytic lesion in the left femoral neck measures 2.5 x1.6 cm (; previously 2.1 x 1.3 cm), the lesion in the right femoralneck measures 2.3 x 2.6 cm (; previously 2.2 x 1.7 cm), and 1.1 x 1.4 cm at T8 (, previously 0.8 x1.1 cm). These lesions appear treated, with sclerotic rims and someincreased internal ossification is some of them. Stable height loss at theT10 superior endplate. IMPRESSION: 1. No evidence of cholangitis. 2. There is a new 13 x 20 mm nodule in the right lower lobe (09/04). Thislesion has an irregular, ground glass border and contains an airbronchogram. Infection and metastatic disease are in the differential. 3. Interval increased size in multiple partially treated bonemetastases. Jose Cavanaugh APRN, C.N.P. IMG CT TX OCEDURES * ECG 12 Lead (08/09/2023 12:49 AM MERCHANDISING TEAM LEAD) Only the most recent of3 resultswithin the time period is included. Ventricular Rate ECG/Min 66 BPM MUSE TX Interval 150 ms MUSE QRSD Interval 86 ms MUSE QT Interval 456 ms MUSE QTC Interval 478 ms MUSE P [place] 52 degrees MUSE R [place] 80 degrees MUSE T Wave [place] 86 degrees MUSE 08/09/2023 12:4 9 AM MERCHANDISING TEAM LEAD 08/09/2023 12:51 AM MERCHANDISING TEAM LEAD Impressions MUSE - 08/09/2023 12:51 AM MERCHANDISING TEAM LEAD Normal sinus rhythm Low anterior forces Nonspecific T wave abnormality When compared with ECG of 04-JUL-2023 10:08, Anterior forces have decreased T waves have changed Reviewed by BREANNA Whiting Narrative Procedure Note Jordan García M.D. - 08/09/2023 IMPRESSION: Normal sinus rhythm Low anterior forces Nonspecific T wave abnormality When compared with ECG of 04-JUL-2023 10:08, Anterior forces have decreased T waves have changed Reviewed by BREANNA Whiting Jose Cavanaugh APRN, C.N.P. ECG ORDER DANIEL MUSE NA * Lactate for Sepsis with Reflex, POCT (08/09/2023 12:49 AM MERCHANDISING TEAM LEAD) Pathologist [facility] [place] Lactate, POCT 1.33 0.50 - 2.20 mmol/L 08/09/2023 1:01 AM MERCHANDISING TEAM LEAD PCLX Blood (Blood, Venous) 08/09/2023 12:49 AM MERCHANDISING TEAM LEAD 08/09/2023 12:49 AM MERCHANDISING TEAM LEAD Jose Cavanaugh APRN, C.N.P. LAB POCT ORDERABLES - DEVICE POC [facility] [address] [place] [address], [place] PCLX [facility] POC [address] [place] [address] * (ABNORMAL) Venous Blood Gas and Electrolytes CG8+, POCT (08/09/2023 12:49 AM MERCHANDISING TEAM LEAD) Sample Site, POCT Venstick 08/09/2023 1:01 AM MERCHANDISING TEAM LEAD PCLX Comment: ----ADDITIONAL INFORMATION---- Performed at the Point of Care pH, Venous, POCT, B 7.37 7.32 - 7.43 08/09/2023 1:01 AM MERCHANDISING TEAM LEAD PCSM Comment: ----ADDITIONAL INFORMATION---- Performed at the Point of Care pCO2, Venous, POCT, B 35(L) 41 - 51 mm Hg 08/09/2023 1:01 AM MERCHANDISING TEAM LEAD PCSM Comment: ----ADDITIONAL INFORMATION---- Performed at the Point of Care pO2, Venous, POCT, B 36 Not Applicable mm Hg 08/09/2023 1:01 AM MERCHANDISING TEAM LEAD PCSM Comment: ----ADDITIONAL INFORMATION---- Performed at the Point of Care Base Excess, Venous, POCT, B -5 Not Applicable mmol/L 08/09/2023 1:01 AM MERCHANDISING TEAM LEAD PCSM Comment: ----ADDITIONAL INFORMATION---- Performed at the Point of Care HCO3, Venous, POCT, B 20 Not Applicable mmol/L 08/09/2023 1:01 AM MERCHANDISING TEAM LEAD PCSM Comment: ----ADDITIONAL INFORMATION---- Performed at the Point of Care Sodium, POCT, B 136 135 - 145 mmol/L 08/09/2023 1:01 AM MERCHANDISING TEAM LEAD PCLX Comment: ----ADDITIONAL INFORMATION---- Performed at the Point of Care Potassium, POCT, B 3.3(L) 3.6 - 5.2 mmol/L 08/09/2023 1:01 AM MERCHANDISING TEAM LEAD PCLX Comment: ----ADDITIONAL INFORMATION---- Performed at the Point of Care Calcium, Ionized, POCT, B 4.60(L) 4.65 - 5.30 mg/dL 08/09/2023 1:01 AM MERCHANDISING TEAM LEAD PCLX Comment: ----ADDITIONAL INFORMATION---- Performed at the Point of Care Glucose, POCT, B 135 70 - 140 mg/dL 08/09/2023 1:01 AM MERCHANDISING TEAM LEAD PCLX Comment: ----ADDITIONAL INFORMATION---- Performed at the Point of Care Hematocrit, POCT, B 31.0(L) 35.5 - 44.9 % 08/09/2023 1:01 AM MERCHANDISING TEAM LEAD PCLX Comment: ----ADDITIONAL INFORMATION---- Performed at the Point of Care Blood (Blood, Venous) 08/09/2023 12:49 AM MERCHANDISING TEAM LEAD 08/09/2023 12:49 AM MERCHANDISING TEAM LEAD Jose Cavanaugh APRN C.N.P. LAB POCT ORDERABLES - DEVICE Performing Organization Address City/State/[facility] Co de Phone Number POC [facility] [address] [place] [address], [facility] PCLX [facility] POC [address] [place] [address] PCSM [facility] POC [address] [place] [id number] * (ABNORMAL) CBC with Differential, Blood (08/09/2023 12:49 AM MERCHANDISING TEAM LEAD) Only the most recent of4 resultswithin the time period is included. Hemoglobin 10.8(L) 11.6 - 15.0 g/dL 08/09/2023 1:00 AM MERCHANDISING TEAM LEAD STMA Hematocrit 32.0(L) 35.5 - 44.9 % 08/09/2023 1:00 AM MERCHANDISING TEAM LEAD STMA Erythrocytes 3.33(L) 3.92 - 5.13 x10(12)/L 08/09/2023 1:00 AM MERCHANDISING TEAM LEAD STMA MCV 96.1 78.2 - 97.9 fL 08/09/2023 1:00 AM MERCHANDISING TEAM LEAD STMA RBC Distrib Width 14.1 12.2 - 16.1 % 08/09/2023 1:00 AM MERCHANDISING TEAM LEAD STMA Platelet Count 226 157 - 371 x10(9)/L 08/09/2023 1:00 AM MERCHANDISING TEAM LEAD STMA Leukocytes 7.9 3.4 - 9.6 x10(9)/L 08/09/2023 1:00 AM MERCHANDISING TEAM LEAD STMA Neutrophils 6.54(H) 1.56 - 6.45 x10(9)/L 08/09/2023 1:00 AM MERCHANDISING TEAM LEAD PM Lymphocytes 1.14 0.95 - 3.07 x10(9)/L 08/09/2023 1:00 AM MERCHANDISING TEAM LEAD STMA Monocytes 0.14(L) 0.26 - 0.81 x10(9)/L 08/09/2023 1:00 AM MERCHANDISING TEAM LEAD STMA Eosinophils <0.03 0.03 - 0.48 x10(9)/L 08/09/2023 1:00 AM MERCHANDISING TEAM LEAD STMA Basophils 0.04 0.01 - 0.08 x10(9)/L 08/09/2023 1:00 AM MERCHANDISING TEAM LEAD STMA Blood (Blood, Venous) 08/09/2023 12:49 AM MERCHANDISING TEAM LEAD 08/09/2023 12:58 AM MERCHANDISING TEAM LEAD Jose Cavanaugh APRN, C.N.P. LAB BLOOD ADD-ON [facility] [address] [place] [address], [facility] STMA [facility] [address] [place] [address] * (ABNORMAL) Lipase (08/09/2023 12:49 AM MERCHANDISING TEAM LEAD) Lipase, S 79(H) 13 - 60 U/L 08/09/2023 1: 51 AM MERCHANDISING TEAM LEAD DTL Blood (Blood, Venous) 08/09/2023 12:49 AM MERCHANDISING TEAM LEAD 08/09/2023 1:20 AM MERCHANDISING TEAM LEAD Jose Cavanaugh APRN, C.N.P. LAB BLOOD ADD-ON [facility] [address] [place] [address], [facility] DTL [facility] [address] [place] [address] * (ABNORMAL) Basic Metabolic Panel (08/09/2023 12:49 AM MERCHANDISING TEAM LEAD) Potassium, P 3.3(L) 3.6 - 5.2 mmol/L 08/09/2023 1:44 AM MERCHANDISING TEAM LEAD DTL Sodium, P 137 135 - 145 mmol/L 08/09/2023 1:44 AM MERCHANDISING TEAM LEAD DTL Chloride, P 102 98 - 107 mmol/L 08/09/2023 1:44 AM MERCHANDISING TEAM LEAD DTL Bicarbonate, P 18(L) 22 - 29 mmol/L 08/09/2023 1:44 AM MERCHANDISING TEAM LEAD DTL Anion Gap, P 17(H) 7 - 15 08/09/2023 1:44 AM MERCHANDISING TEAM LEAD DTL BUN (Blood Urea Nitrogen), P 16 6 - 21 mg/dL 08/09/2023 1:44 AM MERCHANDISING TEAM LEAD DTL Creatinine 0.95 0.59 - 1.04 mg/dL 08/09/2023 1:44 AM MERCHANDISING TEAM LEAD DTL Estimated GFR (eGFR) 75 >=60 mL/min/BSA 08/09/2023 1:44 AM MERCHANDISING TEAM LEAD DTL Comment: Estimated GFR calculated using the 2020 CKD_EPI creatinine equation. Calcium, Total, P 8.6 8.6 - 10.0 mg/dL 08/09/2023 1:44 AM MERCHANDISING TEAM LEAD DTL Glucose, P 138 70 - 140 mg/dL 08/09/2023 1:44 AM MERCHANDISING TEAM LEAD DTL Blood (Blood, Venous) 08/09/2023 12:49 AM MERCHANDISING TEAM LEAD 08/09/2023 1:20 AM MERCHANDISING TEAM LEAD Jose Cavanaugh APRN, C.N.P. LAB BLOOD ADD-ON [facility] [address] [place] [address], [facility] DTL [facility] [address] [place] [address] * CT ABDOMEN PELVIS W CON-Outside CT Body (08/08/2023 6:45 PM MERCHANDISING TEAM LEAD) 08/08/2023 6:44 PM MERCHANDISING TEAM LEAD Narrative IIMS - 08/08/2023 9:23 PM MERCHANDISING TEAM LEAD This order has been created and auto-finalized to support the import of outside images. If available, original interpretation can be found on the Media Tab in Chart Review, in Document Viewer, or as an image in QREADS. If a re-interpretation or overread is required please follow defined workflow. ?? Provider Not In System IMG CT PROCEDURES Performing Organization Address [facility] de Phone Number IIMS NA * XR CHEST 1V PORTABLE-Outside Chest Xray (08/08/2023 6:10 PM MERCHANDISING TEAM LEAD) Only the most recent of2 resultswithin the time period is included. 08/08/2023 6:06 PM MERCHANDISING TEAM LEAD Narrative IIMS - 08/08/2023 9:19 PM MERCHANDISING TEAM LEAD This order has been created and auto-finalized to support the import of outside images. If available, original interpretation can be found on the Media Tab in Chart Review, in Document Viewer, or as an image in QREADS. If a re-interpretation or overread is required please follow defined workflow. ?? Provider Not In System IMG DIAGNOSTIC IM AGING PROCEDURES Performing Organization Address [facility] de Phone Number IIMS NA * Dermatopathology (07/17/2023 4:41 PM MERCHANDISING TEAM LEAD) 07/22/2023 6:51 AM MERCHANDISING TEAM LEAD PDRM Report electronically signed by Catalina Martell M.D. 07/22/2023 6:51 AM MERCHANDISING TEAM LEAD PDRM Gross Description Received in formalin labeled [...] A1. ??Grossed by AJElvin. 07/22/2023 6:51 AM MERCHANDISING TEAM LEAD PDRM Interpretation FINAL DIAGNOSIS A. ??Right Shoulder - Anterior, Skin punch biopsy: Lentiginous compound nevus COMMENT Clinical note and photos reviewed. Diagnosis was made via digital imaging. A portion of the testing process was performed at [facility] site [id number]. 07/22/2023 6:51 AM MERCHANDISING TEAM LEAD PDRM Skin (Right Shoulder - Anterior) 07/17/2023 4:40 PM MERCHANDISING TEAM LEAD Anh Lee M.D. LAB PATH DERM OR DERABLES Performing Organization Address [facility] Co de Phone Number [facility] [address] [place] [address], [facility] PDRM [address] [facility] [address] [place] [address] * Fluorescein Angiography - OU - Both Eyes (07/17/2023 12:55 PM MERCHANDISING TEAM LEAD) Narrative OPHTHALMOLOGY IMAGING EXAM - 07/17/2023 7:03 PM MERCHANDISING TEAM LEAD Right Eye Dye used is fluorescein. Fluorescein dose given is normal. Left Eye Dye used is fluorescein. Fluorescein dose given is normal. Notes Interpretation in note Phi Palm M.D., Ph.D. OPHTH PHOTOGRA PHY Performing Organization Address [facility] de Phone Number OPHTHALMOLOGY IMAGING EXAM * [employer]-Ophthalmology Image Exam (07/17/2023 12:45 PM MERCHANDISING TEAM LEAD) Only the most recent of2 resultswithin the time period is included. 07/17/2023 12:4 5 PM MERCHANDISING TEAM LEAD Narrative IIMS - 07/17/2023 1:03 PM MERCHANDISING TEAM LEAD This order has been created and auto-finalized to support the import of images acquired without order. The clinical documentation to support these images can be found on the encounter that produced images. Provider Not In System IMG NON RAD IMAGI NG PROCEDURES Performing Organization Address [facility] Co de Phone Number IIMS NA * Fundus Photos - OU - Both Eyes (07/17/2023 11:52 AM MERCHANDISING TEAM LEAD) Narrative OPHTHALMOLOGY IMAGING EXAM - 07/17/2023 7:03 PM MERCHANDISING TEAM LEAD Right Eye Field of view is standard view. Fundus photo type obtained is Color. Left Eye Field of view is standard view. Fundus photo type obtained is Color. Notes Interpretation in note Phi Palm M.D., Ph.D. OPHTH PHOTOGRA ZABRINAY Performing Organization Address [facility] Co de Phone Number OPHTHALMOLOGY IMAGING EXAM * Shoulder Dermoscopy-Dermatology Image Exam (07/17/2023 12:10 AM MERCHANDISING TEAM LEAD) Only the most recent of2 resultswithin the time period is included. Narrative IIMS - 07/18/2023 7:21 AM MERCHANDISING TEAM LEAD This order has been created and auto-finalized to support the import of images acquired without order. The clinical documentation to support these images can be found on the encounter that produced images. Provider Not In System IMG NON RAD IMAGI NG PROCEDURES Performing Organization Address [facility] de Phone Number IIID NA * Thyroid Function [place] (07/04/2023 9:49 AM MERCHANDISING TEAM LEAD) Only the most recent of3 resultswithin the time period is included. TSH, Sensitive 2.3 0.3 - 4.2 mIU/L 07/04/2023 11:05 AM MERCHANDISING TEAM LEAD DTL Blood (Blood, Venous) 07/04/2023 9:49 AM MERCHANDISING TEAM LEAD 07/04/2023 10:29 AM MERCHANDISING TEAM LEAD Pérez Zuniga M.D., Ph.D. LAB BLOO D ADD-ON Performing Organization Address [facility] de Phone Number [facility] [address] [place] [address], [facility] DTL [facility] [address] [place] [address] * (ABNORMAL) Comprehensive Metabolic Panel (07/04/2023 9:49 AM MERCHANDISING TEAM LEAD) Only the most recent of3 resultswithin the time period is included. Potassium, S 4.7 3.6 - 5.2 mmol/L 07/04/2023 11:05 AM MERCHANDISING TEAM LEAD DTL Sodium, S 137 135 - 145 mmol/L 07/04/2023 11:05 AM MERCHANDISING TEAM LEAD DTL Chloride, S 103 98 - 107 mmol/L 07/04/2023 11:05 AM MERCHANDISING TEAM LEAD DTL Bicarbonate, S 24 22 - 29 mmol/L 07/04/2023 11:05 AM MERCHANDISING TEAM LEAD DTL Anion Gap 10 7 - 15 07/04/2023 11:05 AM MERCHANDISING TEAM LEAD DTL BUN (Blood Urea Nitrogen), S 22(H) 6 - 21 mg/dL 07/04/2023 11:05 AM MERCHANDISING TEAM LEAD DTL Creatinine 0.90 0.59 - 1.04 mg/dL 07/04/2023 11:05 AM MERCHANDISING TEAM LEAD DTL Estimated GFR (eGFR) 80 >=60 mL/min/BS A 07/04/2023 11:05 AM MERCHANDISING TEAM LEAD DTL Comment: Estimated GFR calculated using the 2020 CKD_EPI creatinine equation. Calcium, Total, S 9.9 8.6 - 10.0 mg/dL 07/04/2023 11:05 AM MERCHANDISING TEAM LEAD DTL Glucose, S 98 70 - 140 mg/dL 07/04/2023 11:05 AM MERCHANDISING TEAM LEAD DTL Protein, Total, S 7.7 6.3 - 7.9 g/dL 07/04/2023 11:05 AM MERCHANDISING TEAM LEAD DTL Albumin, S 4.3 3.5 - 5.0 g/dL 07/04/2023 11:05 AM MERCHANDISING TEAM LEAD DTL Aspartate Aminotransferase (AST), S 26 8 - 43 U/L 07/04/2023 11:05 AM MERCHANDISING TEAM LEAD DTL Alkaline Phosphatase, S 229(H) 35 - 104 U/L 07/04/2023 11:05 AM MERCHANDISING TEAM LEAD DTL Alanine Aminotransferase (ALT), S 24 7 - 45 U/L 07/04/2023 11:05 AM MERCHANDISING TEAM LEAD DTL Bilirubin, Total, S 0.2 0.0 - 1.2 mg/dL 07/04/2023 11:05 AM MERCHANDISING TEAM LEAD DTL Blood (Blood, Venous) 07/04/2023 9:49 AM MERCHANDISING TEAM LEAD 07/04/2023 10:29 AM MERCHANDISING TEAM LEAD Pérez Zuniga M.D., Ph.D. LAB BLOO D ADD-ON [facility] [employer] [facility] [address] [place] [address], [place] DTL [facility] [place] [address] [place] [address] * (TTE) 2D ECHO DOPPLER COLOR (06/20/2023 1:28 PM MERCHANDISING TEAM LEAD) Ejection Fraction 65 MC CV EIMS Mid-Ascending [...] Laterality Modality Other 06/20/2023 12:3 4 PM MERCHANDISING TEAM LEAD Impressions 06/20/2023 1:42 PM MERCHANDISING TEAM LEAD There are no previous [facility] echocardiograms available for comparison. LEFT VENTRICLE:Normal [...] the Order-Level Documents. Narrative 06/20/2023 1:42 PM MERCHANDISING TEAM LEAD For the complete report, see the Order-Level [...] Findings There are no previous [facility] echocardiograms available forcomparison. LEFT VENTRICLE:Normal left [...] (with Reflex Antibody ID) (06/20/2023 12:01 PM MERCHANDISING TEAM LEAD) ABORh O Neg Not applicable 06/20/2023 1:48 PM MERCHANDISING TEAM LEAD ETRM Antibody Screen Negative Negative 06/20/2023 2:00 PM MERCHANDISING TEAM LEAD ETRM Type & Screen Expiration 06/23/2023 23:59 06/20/2023 1:48 PM MERCHANDISING TEAM LEAD ETRM Testing Location Bee DEFAULT 06/20/2023 12:53 PM MERCHANDISING TEAM LEAD ETRM Blood (Blood, Venous) 06/20/2023 12:01 PM MERCHANDISING TEAM LEAD 06/20/2023 12:53 PM MERCHANDISING TEAM LEAD Pérez Zuniga M.D., Ph.D. LAB BLOO D BANK TEST ORDERABLES [facility] [address] [place] [address], [place] ETRM [facility] [address] [place] [address] * Interpretation of Outside NM PET Scan (06/04/2023 7:56 AM MERCHANDISING TEAM LEAD) Anatomical Region Laterality Modality Nuclear Medicine PET RST LOS , Nuclear Medicine ARZ LOS, Nuclear Medicine FLA LOS, Nuclear Medicine, Other, Neuroradiology ARZ LOS, Neuroradiology FLA LOS, Neuroradiology RST LOS, Body N/A Nuclear Medicine 06/10/2023 8:28 AM MERCHANDISING TEAM LEAD Impressions 06/10/2023 10:24 AM MERCHANDISING TEAM LEAD 1. Large intensely hypermetabolic mixed solid and [...] of the report. Narrative 06/10/2023 10:24 AM MERCHANDISING TEAM LEAD EXAM: ??INTERPRETATION OF OUTSIDE NM PET SCAN [...] of Outside MR Extremity (06/04/2023 7:54 AM MERCHANDISING TEAM LEAD) Anatomical Region Laterality Modality Musculoskeletal RST LOS, Mus culoskeletal ARZ LOS, Muskuloskeletal FLA LOS, Musculoskeletal, Other N/A Magnet ic Resonance 06/04/2023 11:3 3 AM MERCHANDISING TEAM LEAD Impressions 06/04/2023 11:45 AM MERCHANDISING TEAM LEAD There are several 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 The largest is seen proximally extending off of the proximal [id number]. This involves the intertrochanteric left femur extending [...] diaphysis, which extends off of the proximal [id number]-enmz (series 3 and 4 image 15). The lesions right around the knee were not present on the MRI from October 2014 and correlate with areas of hypermetabolic activity on the recent PET CT. Findings are compatible with recent biopsy results of metastatic melanoma. Large qzwgx-ha-rylu coronal and axial images include the right femur, which demonstrates numerous large intramedullary lesions throughout the right femoral diaphysis as well as the proximal right tibial diaphysis, as well. No definite discrete soft tissue masses within either thigh. Narrative 06/04/2023 11:45 AM MERCHANDISING TEAM LEAD EXAM: ??INTERPRETATION OF OUTSIDE MR LEFT FEMUR [...] is seen proximally extending off of the ifwjewlbahsjs-zr-[id number]. This involves the intertrochanteric left femur extendingdistally [...] tibial diaphysis, which extends offof the proximal psofw-te-dksp (series 3 and 4 image 15). The lesions right around the knee were not present on the MRIfrom October 2014 and correlate with areas of hypermetabolic activity on therecent PET CT. Findings are compatible with recent biopsy results ofmetastatic melanoma. Large jidff-jm-moaj coronal and axial images include the right femur, whichdemonstrates numerous large intramedullary lesions throughout the rightfemoral diaphysis as well as the proximal right tibial diaphysis, as well.No definite discrete soft tissue masses within either thigh. Pérez Zuniga M.D., Ph.D. IMG MRI PROCEDURES * MR Brain without and with IV Contrast (05/29/2023 7:09 PM MERCHANDISING TEAM LEAD) Anatomical Region Laterality Modality Head, Brain, Neuroradiology [facility], [facility]adiology [facility], Neur[facility]iology [facility] N/A Magnetic Resonance 05/30/2023 10:1 9 AM MERCHANDISING TEAM LEAD Impressions 05/30/2023 10:38 AM MERCHANDISING TEAM LEAD Multifocal subcentimeter intracranial metastases. No significant associated mass effect or hydrocephalus. Narrative 05/30/2023 10:38 AM MERCHANDISING TEAM LEAD EXAM: MR BRAIN WITHOUT AND WITH IV [...] venous anomaly. Procedure Note Antonio Wood M.D., [facility] - 05/30/2023 EXAM: MR BRAIN WITHOUT AND [...] Mejia P.A.-C. MSantoshS. IMG MRI PROCEDURES * T4 (Thyroxine), Free, Serum (05/29/2023 5:35 PM MERCHANDISING TEAM LEAD) T4 (Thyroxine), Free, S 1.0 0.9 - 1.7 ng/dL 05/29/2023 7:06 PM MERCHANDISING TEAM LEAD DTL Blood 05/29/2023 5:35 PM MERCHANDISING TEAM LEAD 05/29/2023 6:09 PM MERCHANDISING TEAM LEAD Naida Mejia P.A.-C. MSantoshS. LAB BLOO D ADD-ON [facility] [address] [place] [address], [place] [facility] [address] [place] [address] * Thyroperoxidase (TPO) Antibodies (05/29/2023 5:35 PM MERCHANDISING TEAM LEAD) Thyroperoxidase Ab, S 15.1 <34.0 IU/mL 05/29/2023 7:06 PM MERCHANDISING TEAM LEAD DTL Blood 05/29/2023 5:35 PM MERCHANDISING TEAM LEAD 05/29/2023 6:09 PM MERCHANDISING TEAM LEAD Naida Mejia P.A.-C., M.S. LAB BLOO D ADD-ON Performing Organization Address City/[facility]/ZIP Co de Phone Number [facility] [address] [place] [address], [facility] [address] [place] [address] * (ABNORMAL) LD (Lactate Dehydrogenase) (05/29/2023 5:35 PM MERCHANDISING TEAM LEAD) Lactate Dehydrogenase (LD), S 439(H) 122 - 222 U/L 05/29/2023 6:46 PM MERCHANDISING TEAM LEAD DTL Blood (Blood, Venous) 05/29/2023 5:35 PM MERCHANDISING TEAM LEAD 05/29/2023 6:09 PM MERCHANDISING TEAM LEAD Naida Mejia P.A.-C., M.S. LAB BLOO D NON ADD-ON Performing Organization Address City/[facility] Co de Phone Number [facility] [address] [place] [address], [facility] [address] [place] [address] * PET [facility]_PET_CAP_C (Adult)-Outside [place] Pet (05/15/2023 11:00 AM CDT) Narrative [facility] - 05/27/2023 12:26 PM MERCHANDISING TEAM LEAD This order has been created and auto-finalized to support the import of outside images. If available, original interpretation can be found on the Media Tab in Chart Review, in Document Viewer, or as an image in QREADS. If a re-interpretation or overread is required please follow defined workflow. ?? 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 06/24/2023 1:13 PM MERCHANDISING TEAM LEAD DTL Additional Information CLINICAL TRIALS Possible clinical trials of benefit for this patient can be found at the following sites: 1) ClinicalTrials.gov: www.clinicaltrials. gov/ct2/search/adva nced 2) [facility]: www.[place] healthcare/resear ch/clinical-trials/ 3) [facility] [place]: www.cancer.gov/clin icaltrials/search REFERENCE TRANSCRIPT Sequence variant nomenclature is based on the following RefSeq accession number (build GRCh37 (hg19)):BRAF [id number]. 06/24/2023 1:13 PM MERCHANDISING TEAM LEAD DTL Specimen Tissue, Tumor 06/24/2023 1:13 PM MERCHANDISING TEAM LEAD DTL Tissue ID [id number] 06/24/2023 1:13 PM MERCHANDISING TEAM LEAD DTL Method Microscopic examination is performed by [...] and additional information on this test, see www.imedo. [employer] (Test ID BRFKT). 06/24/2023 1:13 PM MERCHANDISING TEAM LEAD DTL Disclaimer This test cannot differentiate between [...] of heterozygosity) and sequencing artifact/misalignme nt [PMID: 18090087, PMID: [id number]]. Rare polymorphisms may be present that could [...] developed and its performance characteristics determined by [facility] in a manner consistent with CLIA requirements. This test has not been cleared or approved by the U.S. Food and Drug Administration. 06/24/2023 1:13 PM MERCHANDISING TEAM LEAD DTL Released By Lexy Lang M.D. 06/24/2023 1:13 PM MERCHANDISING TEAM LEAD DTL Interpretation BRAF c.1799T>A (p.V600E) (Exon 15) BRAF encodes the signaling protein Braf, which is downstream of Eduardo and activates the MAPK pathway. Braf signaling is critically involved in the processes of cell division and differentiation. BRAF activating mutations occur predominantly at a single location (V600E). BRAF activating mutations or amplification have been reported to result in uncontrolled cell growth and tumorigenesis [PMID:[id number], PMID:[id number]]. Clinically approved targeted therapy is available for patients with unresectable or metastatic solid tumors with a BRAF V600E mutation [fda.gov/drugs]. 06/24/2023 1:13 PM MERCHANDISING TEAM LEAD DTL Tissue (Bone) 05/13/2023 8:2 7 AM CDT 06/16/2023 1:57 PM MERCHANDISING TEAM LEAD Naida Mejia P.A.-C., M.S. LAB GENE TIC TESTING [facility] [address] [place] [address], [facility] DTL [address] [place] [address] * Pathology Review of Outside Material (05/13/2023 1:26 AM CDT) Pathologist [facility] 06/10/2023 3:51 PM MERCHANDISING TEAM LEAD DTL Participated in the Interpretation Yann Dixon M.D.-Pathology Fellow 06/10/2023 3:51 PM MERCHANDISING TEAM LEAD DTL Report electronically signed by Jose Willis M.D. I verify that I have examined all relevant slides/materials for the specimen(s) and rendered or confirmed the diagnosis. 06/10/2023 3:51 PM MERCHANDISING TEAM LEAD DTL Material Received A. [id number]: Left femur ? 22 stained slides, 20 unstained slides 06/10/2023 3:51 PM MERCHANDISING TEAM LEAD DTL Addendum Genetic testing for BRAF/KIT Mutation Analysis, Tumor (BRFKT) ??will be performed and resulted in the patient's medical record. Signed by Cl Edwards M.D. 06/14/2023 10:19 AM 06/14/2023 10:19 AM MERCHANDISING TEAM LEAD DTL Comment:REVISED RESULTS Interpretation FINAL DIAGNOSIS Left femur mass, biopsy ([id number]; 05/13/2023): Metastatic melanoma, diffusely positive for BRAF [...] not hesitate to reach me by calling [facility] at [phone]. 06/14/2023 10:19 AM MERCHANDISING TEAM LEAD DTL Varies 05/13/2023 1:26 AM CDT 06/05/2023 7:18 PM MERCHANDISING TEAM LEAD Naida Mejia P.A.-C. MAnkit LAB SURG PATH ORDERABLES [facility] [address] [place] [address], [facility] DTL [address] [place] [address] from Last 3 Months Additional Health Concerns Infection Onset Date Last Indicated Protective Environment 06/04/2023 3 Advance Directives For more information, please contact: [phone] Latest Code Status on File Code Status Date Activated Date Inactivated Comments Full Code 08/09/2023 5:52 AM 08/09/2023 5:43 PM Question Answer Comments Full Code: Discussed Care Teams Paint Tester Relationship Specialty Start Date End Date Elsewhere, Pcp PCP - General Family Medicine 06/17/23
--- OUTSIDE RECORDS SUMMARY | 2023-08-09 19:00 | XMS_ITS ---
Author Name Unknown Organization [facility] Address [address] [place] [address] Care Team Providers Care Undercollar Baster Name Role Phone Unavailable Unavailable Unavailable Surgery Details Not on file Complications Check Surgery Details section. Procedure Estimated Blood Loss Check Surgery Details section. Procedure Findings Check Surgery Details section. Procedure Specimens Taken Check Surgery Details section.
--- OUTSIDE RECORDS SUMMARY | 2023-08-09 19:00 | XMS_ITS | Encounter Summary ---
Author Name Unknown Organization [facility] Address [address] [place] [id number] Care Team Providers Care Marketing Strategy Analyst Name Role Phone Elsewhere, Pcp Primary Care Provider Unavailabl e Reason for Visit * Reason Comments Syncope Hypotension * Auth/Cert (Routine) Specialty Diagnoses / Procedures Referred By Contsweetie t Referred To Contact Diagnoses Sepsis (HCC) Multiple Myeloma Not Having Achieved Remission (HCC) Fever, syncopal Procedures ADMIT TO INPATIENT Referral ID Status Reason Start Date Expiration Date Visits Re quested Visits Authorized [id number] 1 1 Encounter Details Date Type Department Care Team (Late st Contact Info) Description 08/09/2023 12:21 AM APPLICATION ENGINEER - 08/09/2023 3:38 PM APPLICATION ENGINEER Hospital Encounter [facility], Tenth Floor [address] [place] [id number] Jose Cavanaugh, GAIL, C.N.P. [address] [place] [address] [phone] Ciaran Reese M.D. [address] [place] [address] [phone] Felicity Vargas M.D. [address] [place] [address] [phone] Veda Sanchez M.B.BSantoshS. [address] [place] [phone] Sepsis (HCC) (Primary Dx); Multiple Myeloma Not Having Achieved Remission (HCC) Discharge Disposition: Home or Self Care Social History Tobacco Use Types Packs/Day Years Used Date Smoking Tobacco: Never Passive Smoke Exposure: Never Smokeless Tobacco: Never Alcohol Use Standard Drinks/Week Comments Not Currently 6 (1 standard drink = 0.6 oz pur e alcohol) Occasional [facility] Utilities Answer Date Recorded In the [...] your living situation today? I [place] a [facility] [address] to live 07/10/2023 Sex and Gender Information Value Date Recorded Sex Assigned at Female 05/31/2023 8:26 AM APPLICATION ENGINEER Gender Identity Female 05/31/2023 8:26 AM APPLICATION ENGINEER Sexual Orientation Straight 05/31/2023 8: 26 AM APPLICATION ENGINEER documented as of this encounter Last Filed Vital Signs Vital Sign Reading Time Taken Comments Blood Pressure 97/61 08/09/2023 3:00 PM APPLICATION ENGINEER Pulse 96 08/09/2023 3:00 PM APPLICATION ENGINEER Temperature 36.9 ??C (98.5 ??F) 08/09/2023 3:00 PM CS T Respiratory Rate 18 08/09/2023 3:00 PM APPLICATION ENGINEER Oxygen Saturation 99% 08/09/2023 3:00 PM APPLICATION ENGINEER Inhaled Oxygen Concentration - - Weight 79.3 kg (174 lb 13.2 oz) 08/09/2023 7:30 AM APPLICATION ENGINEER Height 154.9 cm (5' 1) 08/09/2023 8:00 AM APPLICATION ENGINEER Body Mass Index 33.03 08/09/2023 7:30 AM APPLICATION ENGINEER documented in this encounter Discharge Summaries * Emely Beavers M.D. 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 She was [facility], zosyn, and stress dose steroids. Upon arrival to [facility] ED, she received an additional 1L crystalloid with initiation of norepinephrine up to 0.1. Upon arrival to ICU, she was quickly down-titrated off norepinephrine and maintained blood pressures. During her work-up for possible septic shock, she underwent a CXR, UA, and CTA/P at the OSH - all with noindication for acute infection. LFTs were found to be elevated - downtrending at time of discharge.As this is a known side effect of her chemo Blood cultures were also collected, no growth at this time. After discussion with her primary oncologist, hypotension and fevers can be seen with her current chemotherapy regimen. As she is well appearing at this time, he recommended discharge home with plansto follow up with him on Saturday. She was instructed to return to the ED if she experiences light-headedness, chest pain, dyspnea, nausea/vomiting, jaundice. OBJECTIVE VITAL SIGNS Temperature: [36.3 ??C-38 ??C] 37.2 ??C Heart Rate: [48-115] 110 Resp Rate: [11-31] 20 Blood Pressure: (66-138)/(53-124) 106/70 SpO2: [97 %-100 %] 99 % Height: [154.9 cm] 154.9 cm Weight: [77 kg-79.3 kg] 79.3 kg Pulse Rate: [48-111] 110 I/Os/Wt Intake/Output Summary (Last 24 hours) at 08/09/2023 1346 Last data filed at 08/09/2023 0632 Gross per 24 hour Intake 145.09 ml Output -- Net 145.09 ml Admission Weight: 77 kg Current Weight: 79.3 kg PHYSICAL EXAM General: Alert and oriented. No acute distress. Pleasant woman in NAD, sitting up comfortably in bed HEENT: Normocephalic. Atraumatic. EOMI. Heart: RRR. No murmurs appreciated. Lungs: Chest symmetric with respirations, CTAB. Abdomen: Soft, nontender, nondistended. No guarding or rebound. Skin: Visible skin is warm, dry and intact without apparent rashes or lesions. Extremities: Upper and lower extremities are atraumatic in appearance without tenderness or deformity. No edema noted Neuro: No focal deficits. Cranial nerves II-XII grossly intact. Psych: Mood and affect congruent. Good insight. DIAGNOSTICS LFTs (08/09): Tbili 1.3 D 1.1 ALT 127 AST 154 Alk Phos 396 RECOMMENDATIONS FOR PATIENT 1) Hold chemotherapy regimen until Saturday (08/11) 2) Plan to follow up with primary oncologist on Saturday (08/12) 3) PCP at [facility] to follow up blood culture results - please call your PCP on Saturday (08/12) to obtain results of blood culture Emely Beavers MD [facility] PGY-3 ICATION ENGINEER * Emely Beavers M.D. - 08/09/2023 6:24 AM CST 10-3 ICU Transfer Note SUBJECTIVE Interval Events: Admitted overnight for sepsis - syncopal episode resulting in presentation to OSH. 2L crystalloid and started on zosyn. Additional 1L crystalloid at [facility] ED with initiation of norepiephrine up to 0.1.Blood cx x2 at OSH, UA (negative), COVID/flu/RSV (negative). Cholelithiasis without cholecystitis on US. OBJECTIVE VITAL SIGNS Temperature: [36.3 ??C-36.4 ??C] 36.4 ??C Heart Rate: [48-80] 72 Resp Rate: [14-24] 14 Blood Pressure: (66-123)/(53-83) 85/53 SpO2: [97 %-100 %] 99 % Weight: [77 kg] 77 kg Pulse Rate: [48-77] 72 I/Os/Wt No intake or output data in the 24 hours ending 08/09/23 0624 Admission Weight: 77 kg Current Weight: 77 kg PHYSICAL EXAM General: Alert and oriented. No acute distress. Pleasant woman in NAD, sitting up comfortably in bed HEENT: Normocephalic. Atraumatic. EOMI. Heart: RRR. No murmurs appreciated. Lungs: Chest symmetric with respirations, CTAB. Abdomen: Soft, nontender, nondistended. No guarding or rebound. Skin: Visible skin is warm, dry and intact without apparent rashes or lesions. Extremities: Upper and lower extremities are atraumatic in appearance without tenderness or deformity. No edema noted Neuro: No focal deficits. Cranial nerves II-XII grossly intact. Psych: Mood and affect congruent. Good insight. DIAGNOSTICS I have reviewed relevant laboratory, imaging, and other diagnostics as applicable to this admission. ASSESSMENT / PLAN Ms. Tony Cota is a 48 y.o. female with known metastatic melanoma with mets to the bone and brain on dabrafenib + trametinib diagnosed (05/06) with cancer- related pains. Admitted for treatment of septic shock, now s/p 3L crystalloid, initially requiring norepinephrine gtt, now off. Doing well this AM - ready for transfer to floor. #1 Sepsis (HCC) Plan for Today: - Continuing zosyn for treatment of septic shock with unknown source - Will follow up blood cx at OSH - Repleting K - Re-check LFTs today - Transfer to floor Neuro: - Continue oxycodone 5mg / 10mg q6h PRN - has not required any so far Hemodynamics/CV: - MAP goal >65 - Currently off vasopressors Pulm: - No active concerns - CXR unremarkable - Saturating well on RA Renal: - Repleting K this AM - Daily BMP ID: - Will continue zosyn at this time - No clear source at this time - Will f/u on blood cx obtained at OSH Heme: - Known metastatic melanoma on dabrafenib and trametinib. Although these agents are associated withelevations in transaminases and ALP, typically it is asymptomatic so i would not expect it to causeher related symptoms. Would anticipate holding treatment for now regardless of whether DILI is the cause. GI: - CTA/P (08/08): no evidence of cholangitis; new nodule in RLL with irregular border and air bronchogram - infection vs metastatic disease; interval increased size in bone metastases - Cholestatic liver enzyme elevation - most likely DILI vs progression of disease - Will recheck LFTs this PM - Will start regular diet Endocrine: - Along with her chemotherapy agents she does take dexamethasone 1mg Q12H. She received stress dosesteroids outside - will transition back to home dexamethasone MSK/Skin: Activity: up ad joshua Diet: general GI prophylaxis: not indicated VTE prophylaxis: Heparin SQ 5,000 units TID LDA: PIVx2 Code status: Full Code DISPO: Transfer to floor today Emely Beavers MD [facility] PGY-3 ICATION ENGINEER documented in this encounter Medications at Time of Discharge Medication Sig Dispensed Refills Start Date End Date acetaminophen (TYLENOL) 500 mg tablet Take 500-1,000 mg by mouth every 6 (six) hours as needed. 0 dabrafenib (TAFINLAR) 75 mg capsule Take 2 capsules (150 mg total) by mouth 2 (two) times a day. Take at least 1 hour before or 2 hours after a meal. Do not open, crush, or break. 120 capsule 2 07/02/2023 dexAMETHasone (DECADRON) 1 mg tablet Take [...] every morning before breakfast. 0 05/08/2023 ondansetron (ZOFRAN) 8 mg tablet Take 1 tablet (8 mg total) by mouth every 8 (eight) hours as needed for nausea or vomiting. 30 tablet 5 08/19/2023 oxyCODONE (ROXICODONE) 5 mg immediate release tabletIndications:Ch ronic Pain/Nonacute Pain Take 1 tablet (5 mg total) by mouth every 4 (four) hours as needed for pain (pain) Indication: Chronic Pain/Nonacute Pain. 60 tablet 0 07/29/2023 polyethylene glycol (MIRALAX) 17 gram powder packet Take 17 g by mouth daily. Dissolve each 17 g dose in 240 mLs (8 ounces) of beverage. 0 sennosides (senna) 8.6 mg tablet Take 8.6 mg by mouth daily. 0 trametinib dimethyl sulfoxide (MEKINIST) 2 mg tablet Take 1 tablet (2 mg total) by mouth daily. Take at least 1 hour before or 2 hours after a meal. Keep refrigerated in original bottle. 30 tablet 2 07/02/2023 traZODone (DESYREL) 50 mg tablet 50 mg as needed. 0 08/01/2023 documented as of this encounter Progress Notes * Juani Morfin, Pharm.D., R.Ph. - 08/09/2023 11:50 AM CST Clinical Pharmacist Progress Note Tony Cota is a 48 y.o. female who was admitted on 08/09/2023 to [id number] for managementof suspected septic shock secondary to unknown source PMH: HTN, metastatic melanoma (brain, bone, renal) on dabrafenib, trametinib OBJECTIVE Home meds: Held: dabrafenib, trametinib, lisinopril-HCTZ Changed: none Home supply: has home supply dabrafenib, trametinib with her if needed Prophylaxis SQH PPI Assessment/Plan 1. Resuscitation with fluids, briefly on NE but now HD stable without any support 2. Transition zosyn to augmentin due to rapid improvement 3. Elevated LFT's likely due to oral chemo. Hold until Saturday per primary oncologist Juani Morfin, Joleen.Brie, R.Ph. Clinical Pharmacist Pager [phone] ICATION ENGINEER documented in this encounter H&P Notes * Veda Sanchez M.B.BSantoshS. - 08/09/2023 5:44 AM CST SUBJECTIVE CHIEF COMPLAINT Passed out going to post office, fever, nausea, HISTORY OF PRESENT ILLNESS I have seen patient personally, reviewed in multidisciplinary rounds chart, imaging and labs and agree with the plan per critical care team note. Mrs. Tony Cota is a 48 yo woman who is coming from our ED for hypotension, shock, need for pressors. She was intended to be a direct transfer from [facility] to oncology, but en route had low MAPs so was diverted to [facility] ER instead. Tony had presented first to outside ED with syncope. She shared that she was intended to have a PET scan yesterday morning. But the night before she had fever and so was advised to not have the PET scan. She had been not eating and drinking anyways as per instructions for the PET. And then when itwas cancelled just felt nauseous. She also had abdominal pain. She described having some more feverof about a 100 F. But somehow, felt ok enough to head to the post- office, when she had passed out. She had received blood cultures, antimicrobials and COVID/ Influenza at [facility]. Received 2 L ofIVF there too She arrived to our ED with BP of 84/58 and received 1 L of fluids. Also received zosyn. She was on norepi up to 0.1 down in [facility] ED. Lactate of 1.3. Tony has known metastatic melanoma with mets to bone and brain, and on dabrafenib + trametinib diagnosed in 05/06 incidentally and has been having caner related pains. She also takes dexamethasone 1mg BID. 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 Lives with her and has 3 children. Her and her eldest are in [place] exploring college options. Her friend Kenya is at bedside who supported Tony through her course from [facility] to [facility] and here. OBJECTIVE VITAL SIGNS I have reviewed the current vital sign data as applicable to this admission. PHYSICAL EXAM Gen; alert, awake, appears in good spirits, in NAD, Rest as per critical care team note DIAGNOSTICS I have reviewed relevant laboratory, imaging, and other diagnostics as applicable to this admission. ASSESSMENT / PLAN Shock Sepsis Dehydration Cholelithiasis Transaminitis Elevated bilirubin Hypokalemia Metastatic melanoma to bone and brains, on dabrafenib + trametinib Cancer related pain On chronic dexamethasone The shock state has resolved. Likely a combination of sepsis and dehydration. Tony has received antimicrobials and fluids. Off norepinephrine on arrival. Continue zosyn, follow blood cultures from [facility]. Query of DILI raised with elevated liver enzymes. Can consider that after infectious aspects evaluated. Observe in ICU. Oncology consult. Possible transfer later if remains off pressors. Rest as per critical care team note. ICATION ENGINEER * Meet Mcgregor M.D., Pharm.D. - 08/09/2023 3:37 AM CST ICU ADMISSION NOTE SUBJECTIVE CHIEF COMPLAINT Fever, malaise, syncope HISTORY OF PRESENT ILLNESS Tnoy Cota is a 48 y.o. female admitted for sepsis. Pertinent medical comorbidities include: metastatic melanoma, unknown primary, on dabrefenib/trametinib with bone mets, renal mets and intracranial mets, cancer related pain on home opioids. Patient reports two days of fever and chills. Had syncopal episode resulting in presentation to [facility] ED for initial evaluation. There received 2L crystalloid and started on Zosyn. She was transferred to [facility] ED where she received 1L crystalloid and Zosyn was continued. She was started on norepi nephrine for hypotension despite fluids. She underwent a CT scan in [facility] which demonstrated gallbladder sludge and pericholecystic fluid. Also had blood cultures x2, urinalysis (reportedly bland per patient), COVID/flu/RSV (negative per patient). RUQ US at [facility] demonstrated cholelithiasis without cholecystitis. Denies cough, chest pain, abd pain, N/V, dysuria. Remainder of medication list, allergies, past medical/surgical history, social history and family history were reviewed in the chart and updated as able and appropriate. OBJECTIVE PHYSICAL EXAMINATION Constitutional: vitals reviewed and in chart; interactive, not acutely ill Eyes: PERRL, anicteric, no conjunctival injection ENT: hearing grossly intact, moist mucus membranes CV: regular rate and rhythm; no lower extremity edema; cap refill <3 sec Resp: no respiratory distress GI: soft and nontender abdomen without guarding or rebound MSK: no joint swelling or redness Skin: no rashes appreciated; warm without pallor Neuro: motor strength to all 4 extremities grossly intact Psych: converses appropriately to questions, affect appropriate for situation; alert and oriented x3 DIAGNOSTICS The labs, imaging and diagnostic studies from the admission were reviewed. Notable findings are summarized below and in the plan by systems. CXR: No obvious consolidations to explain infectious etiology by my read ECG: NSR CT abd/pelvis: some sludge within gallbladder and trace pericholecystic fluid. Left ovarian cyst 5.6cm RUQ US: cholelithiasis without cholecystitis Labs: cholestatic liver enzyme pattern, mild hypokalemia at 3.3, mild anion gap acidosis with a normal lactate at 1.3. ASSESSMENT / PLAN Tony Cota is a 48 y.o. female admitted for sepsis. Presentation initially seemed like a sepsis syndrome. She overall appears nontoxic. She is already off pressors on arrival and I am not so worried about an extensive sepsis at the moment. Likely someviral illness. It is possible findings are related to DILI related to her chemo agents. Continue broad spectrum gram negative and anaerobe coverage for now but i suspect these can be continued once she gets settled. Hold chemo agents and engage oncology. At this time I have low suspicion for any respiratory cause given lack of any localizing findings. Would be reasonable to get a resp pathogen panel to assess for viral cause of fever. I don't think viral cause is likely given the relative lower levels of transaminases. Portal vein thrombosis is a possibility to consider. SYSTEM SUMMARY: Neuro: Takes oxycodone 5mg approx 2 times per day at home for cancer related pain. Will continue here. Hemodynamics/CV: MAP goal >65. She is off pressors on arrival. Pulm: No active concerns. CXR outside appears unremarkable for acute findings by my read. Good saturations on room air. VBG suggests appropriate ventilation. Renal: Mild hypokalemia. Replace PRN. Lactate normal. ID: [id number] U/S was negative for apparent cholecystitis. Her abd exam is totally benign. I do not have any source for infection based on exam. Can continue the Zosyn for now while initial evaluation is underway. Blood cultures x2 at OSH. She had UA at OSH which reportedly was bland per patient. Patient reports negative COVID/flu/RSV test at [facility] as well. Heme: Known metastatic melanoma on dabrafenib and trametinib. Although these agents are associated with elevations in transaminases and ALP, typically it is asymptomatic so i would not expect it to cause her related symptoms. Would anticipate holding treatment for now regardless of whether DILI is the cause. GI: Cholestatic liver enzyme elevation. CT findings noted above. Given the clinical picture possible DILI vs progression of disease vs portal vein thrombus vs some viral hepatitis (seems low likelihood given relatively lower transaminases). Endocrine: Along with her chemotherapy agents she does take dexamethasone 1mg Q12H. She received stress dose steroids outside. Don't plan to continue at the moment given clinical status. MSK/Skin: Activity: up ad joshua GOALS OF CARE: CODE STATUS: full code Surrogate: (Francis) ACCESS/LINES: Peripheral lines PROPHYLAXIS: VTE: SQH TID GI: not indicated DISPO: Requires PCU level of cares for hemodynamic monitoring Meet Mcgregor MD, PharmD PGY-4 Personal Pager: [phone] ICATION ENGINEER * Aranza Harvey Pharm.D., R.Ph. - 08/09/2023 1:27 AM CST Images from the original note were not included. Admission Medication History Note Adherence issues: No concerns Medication list source: Patient Prior to Admission Medications Med List Status: Pharmacy Complete Set By: Aranza Harvey PharmNemesio., R.Ph. at 08/09/2023 1:27 AM Taking? Last Dose Informant Start Date End Date LT acetaminophen (TYLENOL) 500 mg tablet -- -- -- -- Take 500-1,000 mg by mouth every 6 (six) hours as needed. dabrafenib (TAFINLAR) 75 mg capsule 08/08/2023 at 0800 -- 07/02/23 -- Take 2 capsules (150 mg total) by mouth 2 (two) times a day. Take at least 1 hour before or 2 hoursafter a meal. Do not open, crush, or break. dexAMETHasone (DECADRON) 1 mg tablet 08/08/2023 at 0800 -- 07/04/23 11/01/23 Take 1 tablet (1 mg total) by mouth every 12 (twelve) hours. hydrOXYzine (ATARAX) 25 mg tablet -- -- 05/31/23 -- Take 25-50 mg by mouth at bedtime as needed. lisinopril-hydroCHLOROthiazide (PRINZIDE,ZESTORETIC) 10-12.5 mg per tablet 08/08/2023 at 0800 -- 01/02/23 -- Take 1 tablet by mouth every morning. naloxone (NARCAN) 4 mg/actuation nasal spray -- -- 06/21/23 -- Administer 1 spray (4 mg total) into one nostril as needed for reversal. Use 1 spray in 1 nostril. Repeat with second device in other nostril after 2-3 minutes if no or minimal response. Notes: Based on insurance and cost, may sub with 2 x Naloxone 2 mg/2 mL Inj (Nasal) with MAD: sig: Assemble as directed and spray 1 mL into each nostril. Repeat in 2-3 minutes if no or minimal response. omeprazole (PriLOSEC OTC) [address] tablet -- -- 05/08/23 -- Take 20 mg by mouth every morning before breakfast. ondansetron (ZOFRAN) 8 mg tablet -- -- 08/19/23 -- Take 1 tablet (8 mg total) by mouth every 8 (eight) hours as needed for nausea or vomiting. Notes: Need about 1 tablet a day in the afternoon oxyCODONE (ROXICODONE) 5 mg immediate release tablet -- -- 07/29/23 -- Take 1 tablet (5 mg total) by mouth every 4 (four) hours as needed for pain (pain) Indication: Chronic Pain/Nonacute Pain. Notes: Take about 1 tablet at night time for aches and pains polyethylene glycol (MIRALAX) 17 gram powder packet -- -- -- -- Take 17 g by mouth daily. Dissolve each 17 g dose in 240 mLs (8 ounces) of beverage. sennosides (senna) 8.6 mg tablet -- -- -- -- Take 8.6 mg by mouth daily. sodium chloride 0.9 % injection 3 mL -- -- 07/10/23 -- 3 mL, intravenous, As needed, line care, Starting on Sat07/10/23 at 0748 trametinib dimethyl sulfoxide (MEKINIST) 2 mg tablet 08/07/2023 at 2100 -- 07/02/23 -- Take 1 tablet (2 mg total) by mouth daily. Take at least 1 hour before or 2 hours after a meal. Keep refrigerated in original bottle. traZODone (DESYREL) 50 mg tablet -- -- 08/01/23 -- 50 mg as needed. Notes: Not taking Aranaz Harvey, Pharm.D., R.Ph. 08/09/23 0127 ICATION ENGINEER documented in this encounter ED Notes * Jose Cavanaugh, GAIL, C.N.P. - 08/09/2023 12:54 AM CST SUBJECTIVE CHIEF COMPLAINT/REASON FOR VISIT Syncope and Hypotension HISTORY OF PRESENT ILLNESS Patient is a pleasant 48 y.o. female coming in for evaluation of hypotension and syncope. She is history of metastatic multiple myeloma coming in after she had a syncopal episode at [facility]. She was supposed to be direct admit to oncology but unfortunatelyin route she started dumping her pressure. Will in route she became very symptomatic diaphoretic lig htheaded and weak her pressures were in the 70s systolic. She would received 2 L of fluid at the outside facility it along with blood cultures and antibiotics. She also received a steroids there is well. The initial thought that this could represent cholangitis given the LFT elevation. Upon arrivalto the ER she is resting comfortably in no acute distress in his overall looking very well. She is currently on nor epi at 0.2 mg per kg her pressures are in the 120s. She is afebrile upon arrival tothe ER and does not appear in any acute distress at this time History provided by: Patient REVIEW OF SYSTEMS Constitutional: Positive for diaphoresis and fever. Respiratory: Negative for cough and chest tightness. Cardiovascular: Negative for chest pain. Gastrointestinal: Positive for abdominal pain. Negative for nausea and vomiting. Skin: Negative for wound. Neurological: Positive for syncope. Negative for weakness. Hematological: Does not bruise/bleed easily. Psychiatric/Behavioral: The patient is not nervous/anxious. OBJECTIVE Initial Vitals Temperature 08/09/23 0207 36.4 ??C Pulse Rate 08/09/23 0030 77 Heart Rate 08/09/23 0030 80 Resp Rate 08/09/23 0030 19 Blood Pressure 08/09/23 0030 (!) 84/58 SpO2 08/09/23 0030 100 % Pain Score 08/09/23 0405 0 - No pain PHYSICAL EXAMINATION Constitutional: Nursing note and vitals reviewed. Vital signs are normal. She appears not listless and not lethargic. She is active and cooperative. She is easily aroused. She does not appear ill. Nodistress. HENT: Head: Normocephalic and atraumatic. No signs of injury. There is normal jaw occlusion. Mouth/Throat: Oropharynx is clear and moist. Mucous membranes are moist. Eyes: Conjunctivae and EOM are normal. Pupils are equal, round, and reactive to light. Periorbital area normal appearing. Neck: Neck supple. Cardiovascular: Normal rate, regular rhythm, normal pulses and normal peripheral perfusion. Pulses are palpable. Pulses are no weak pulses. Capillary refill: takes less than 3 seconds Pulmonary/Chest: Effort normal. There is normal air entry. No apnea and no tachypnea. No respiratory distress. Abdominal: Soft. Bowel sounds are normal and non-distended. exhibits no distension. There is no abdominal tenderness. Musculoskeletal: General: No tenderness, deformity or edema. Normal range of motion. Cervical back: Full passive range of motion without pain, normal range of motion and neck supple. Neurological: Alert, oriented to person, place, and time and easily aroused. She has normal sensation and normal strength. She is not disoriented. GCS eye subscore is 4. GCS verbal subscore is 5. GCSmotor subscore is 6. Normal speech. Gait normal. Skin: Skin is warm, dry, intact and normal color. She is not diaphoretic. Psychiatric: She has a normal mood and affect. Speech pattern is normal. Judgment and thought content normal. Relaxed.Cognition and memory are normal. ASSESSMENT/PLAN Assessment and Plan Patient is a pleasant 48 y.o. female coming in for evaluation of syncope and hypotension. Given their history and physical exam, I have considered multiple differential diagnosis such as sepsis, cholangitis, dehydration, metastatic disease amongst others. I have ordered diagnostic studies to evaluate further. We will continue to reassess the patient throughout their stay in the ER. Patient had a thorough workup completed at the outpatient facility which did not find any significant findings or source of this infection. In route she did start to lose her pressures and they initiated her on norepinephrine. Since then she has been obtained pressures in the high 90s low 100s witha maps 60s while on norepinephrine here we did trial her often for brief moment and she did drop her pressures into the 70s. She is continuing to do well while she was here will provide her with another L of fluid. Overall I do feel she will likely require admission to the ICU given this profound hypotension. There has been no significant change in her laboratory studies and her ultrasound does not reveal any significant sign of cholecystitis and cholangitis at this time. There is evidence of cholelithiasis which could be causing obstructive pattern at this time this could also be related to her multiple myeloma. I have informed the cc OD of this in the agrees that the patient should be admitted to the ICU given the norepinephrine drip. 10-3 will be accepting the patient. I have provided signed off to the resident construction consultant. Based on their diagnostic studies and the overall appearance of the patient I do feel that the patient will require admission to the hospital. I have admitted the patient to critical care medicine for further evaluation and treatment. I have informed the patient of this plan for admission at this time they are agreeable to the plan. . I reviewed the following external records: prior outpatient radiology tests, primary care records, office records, outside ED records and prior outpatient labs. ED Course as of 08/09/23426Aug 09, 2023 0056 Patient was taken off the nor epi for a brief time when she 1st arrived in her pressures did drop significantly. She was restarted on the nor epi at 0.2 will continue to try to adjust keep maps at greater than 60. 0057 The patient continues to do well and feels overall quite well at this time. Will obtain an ultrasound and over-read of her CT scan from the outside facility. 0057 Repeat blood work with a lactate and VBG are overall reassuring at this time there is no significant elevation or acidosis or electrolyte derangement 0259 I spoke with the cc OD at this time he is happy to accept the patient he will call over to 10 3 to see if they are able to accept the patient at this time. 0319 10 3 will take the patient 0350 Sign-out has been given to the 10 3 resident and the construction consultant (via the cc OD) Final Diagnoses: as of 08/09/23426 Sepsis (HCC) Multiple Myeloma Not Having Achieved Remission (HCC) Care Handoff Row Name 08/09/23 0344 Care Handoff Type of Handoff Admission handoff Jose Cavanaugh APRN, C.N.P. 08/09/23426 ICATION ENGINEER documented in this encounter Plan of Treatment Upcoming Encounters Date Type Department Care Team (Late st Contact Info) Description 08/19/2023 6:40 AM APPLICATION ENGINEER Appointment Department of Laboratory Medicine and Pathology, [facility] in [place], [place] [address] [place] [phone] Pérez Zuniga M.D., Ph.D. [address] [place] [phone] 08/19/2023 7:00 AM APPLICATION ENGINEER Ancillary Procedure Department of Cardiovascular Medicine in [place], [place] [address] [place] [phone] Pérez Zuniga M.D., Ph.D. [address] [place] [phone] 08/19/2023 9:00 AM APPLICATION ENGINEER Appointment Department of Radiology, [facility] in [place], [place] [address] [place] [phone] Pérez Zuniga M.D., Ph.D. [address] [place] [phone] 08/19/2023 3:40 PM APPLICATION ENGINEER Office Visit Department of Oncology in [place], [place] [address] [place] [phone] Zhane Granados, PARTNER MARKETING MANAGER, C.N.P. [address] [place] [phone] 08/21/2023 10:15 AM APPLICATION ENGINEER Clinical Support Department of Palliative Care in [place], [place] [address] [place] [phone] Serenity Kelsey, P.A.-C. [address] [place] [phone] Meka Rinaldi D.N.P., R.N., [facility] documented as of this encounter Procedures Procedure Name Priority Date/Time Associated Diagnosis Comments HEPATIC FUNCTION PANEL, S Timed 08/09/2023 12:22 PM APPLICATION ENGINEER US GALLBLADDER AND OR BILIARY DUCTS RAD - Semiurgent (Fast; most ED patients; some inpatients) 08/09/2023 2:44 AM APPLICATION ENGINEER INTERPRETATION OF OUTSIDE CT ABDOMEN AND OR PELVIS RAD - Semiurgent (Fast; most ED patients; some inpatients) 08/09/2023 2:14 AM APPLICATION ENGINEER ECG STAT 08/09/2023 12:49 AM APPLICATION ENGINEER LACTATE FOR SEPSIS WITH REFLEX, POCT STAT 08/09/2023 12:49 AM APPLICATION ENGINEER VBG & LYTES CG8+, POCT, B STAT 08/09/2023 12:49 AM APPLICATION ENGINEER HEPATIC FUNCTION PANEL, S STAT 08/09/2023 12:49 AM APPLICATION ENGINEER CBC WITH DIFFERENTIAL, B STAT 08/09/2023 12:49 AM APPLICATION ENGINEER LIPASE, S/P STAT 08/09/2023 12:49 AM APPLICATION ENGINEER BASIC METABOLIC PANEL, S/P STAT 08/09/2023 12:49 AM APPLICATION ENGINEER documented in this encounter Results * (ABNORMAL) Hepatic Function Panel (08/09/2023 12:22 PM APPLICATION ENGINEER) Bilirubin, Total, S 1.3(H) 0.0 - 1.2 mg/dL 08/09/2023 1:29 PM APPLICATION ENGINEER DTL Bilirubin, Direct, S 1.1(H) 0.0 - 0.3 mg/dL 08/09/2023 1:29 PM APPLICATION ENGINEER DTL Aspartate Aminotransferase (AST), S 154(H) 8 - 43 U/L 08/09/2023 1:29 PM APPLICATION ENGINEER DTL Alanine Aminotransferase (ALT), S 127(H) 7 - 45 U/L 08/09/2023 1:29 PM APPLICATION ENGINEER DTL Alkaline Phosphatase, S 396(H) 35 - 104 U/L 08/09/2023 1:29 PM APPLICATION ENGINEER DTL Albumin, S 3.5 3.5 - 5.0 g/dL 08/09/2023 1:29 PM APPLICATION ENGINEER DTL Protein, Total, S 6.2(L) 6.3 - 7.9 g/dL 08/09/2023 1:29 PM APPLICATION ENGINEER DTL Blood (Blood, Venous) 08/09/2023 12:22 PM APPLICATION ENGINEER 08/09/2023 1:14 PM APPLICATION ENGINEER Lesvia Ma APRN, Harsha.N.Gemma, MLindsey ESPINAL BLOOD ADD-ON [facility] [address] [place] [address], [facility] [address] [place] [address] * US Gallbladder and or Biliary Ducts (08/09/2023 2:44 AM APPLICATION ENGINEER) Anatomical Region Laterality Modality Abdomen, Ultrasound RST LOS, Ultrasound ARZ LOS, Ultrasound FLA LOS N/A Ultrasound Impressions 08/09/2023 8:05 AM APPLICATION ENGINEER Cholelithiasis without evidence of acute cholecystitis. Narrative 08/09/2023 8:05 AM APPLICATION ENGINEER EXAM: US GALLBLADDER AND OR BILIARY DUCTS [...] IMPRESSION: Cholelithiasis without evidence of acute cholecystitis. Harsha Jones APRN.NSimi. IMG US IN OCEDURES * Interpretation of Outside CT Abdomen and or Pelvis (08/09/2023 2:14 AM APPLICATION ENGINEER) Anatomical Region Laterality Modality Abdomen, Pelvis, Abdominal R ST LOS, Abdominal ARZ LOS, Abdominal FLA LOS, Other N/A Computed Tomography Impressions 08/09/2023 5:35 AM APPLICATION ENGINEER 1. ??No evidence of cholangitis. 2. There is a new 13 x 20 mm nodule in the right lower lobe (2/21). This lesion has an irregular, ground glass border and contains an air bronchogram. Infection and metastatic disease are in the differential. 3. Interval increased size in multiple partially treated bone metastases. Narrative 08/09/2023 5:35 AM APPLICATION ENGINEER EXAM: ??INTERPRETATION OF OUTSIDE CT ABDOMEN AND OR PELVIS COMPARISON: ??05/15/2023 PET/CT Outside CT abdomen pelvis with IV contrast performed 08/08/2023. FINDINGS: There is a new 13 x 20 mm nodule in the right lower lobe (2/21). This lesion has an irregular, ground glass [...] bonemetastases. Jose Cavanaugh APRN, C.N.P. IMG CT IN OCEDURES * ECG 12 Lead (08/09/2023 12:49 AM APPLICATION ENGINEER) Ventricular Rate ECG/Min 66 BPM MUSE IN Interval 150 ms MUSE QRSD Interval 86 ms MUSE QT Interval 456 ms MUSE QTC Interval 478 ms MUSE P Deering 52 degrees MUSE R Deering 80 degrees MUSE T Wave Deering 86 degrees MUSE 08/09/2023 12:4 9 AM APPLICATION ENGINEER 08/09/2023 12:51 AM APPLICATION ENGINEER Impressions MUSE - 08/09/2023 12:51 AM APPLICATION ENGINEER Normal sinus rhythm Low anterior forces Nonspecific [...] Jose Cavanaugh APRN, C.N.P. ECG ORDER DANIEL Performing Organization Address City/[facility]/ZIP Co de Phone Number MUSE NA * (ABNORMAL) Lipase (08/09/2023 12:49 AM APPLICATION ENGINEER) Lipase, S 79(H) 13 - 60 U/L 08/09/2023 1: 51 AM APPLICATION ENGINEER DTL Blood (Blood, Venous) 08/09/2023 12:49 AM APPLICATION ENGINEER 08/09/2023 1:20 AM APPLICATION ENGINEER Jose Cavanaugh APRN, C.N.P. LAB BLOOD ADD-ON Performing Organization Address City/[facility] Co de Phone Number [facility] [address] [place] [address], [facility] DTL [facility] 200 [place] [address] * (ABNORMAL) Hepatic Function Panel (08/09/2023 12:49 AM APPLICATION ENGINEER) Bilirubin, Total, S 2.2(H) 0.0 - 1.2 mg/dL 08/09/2023 1:51 AM APPLICATION ENGINEER DTL Bilirubin, Direct, S 2.2(H) 0.0 - 0.3 mg/dL 08/09/2023 1:51 AM APPLICATION ENGINEER DTL Aspartate Aminotransferase (AST), S 202(H) 8 - 43 U/L 08/09/2023 1:51 AM APPLICATION ENGINEER DTL Alanine Aminotransferase (ALT), S 147(H) 7 - 45 U/L 08/09/2023 1:51 AM APPLICATION ENGINEER DTL Alkaline Phosphatase, S 471(H) 35 - 104 U/L 08/09/2023 1:51 AM APPLICATION ENGINEER DTL Albumin, S 3.6 3.5 - 5.0 g/dL 08/09/2023 1:51 AM APPLICATION ENGINEER DTL Protein, Total, S 6.5 6.3 - 7.9 g/dL 08/09/2023 1:51 AM APPLICATION ENGINEER DTL Blood (Blood, Venous) 08/09/2023 12:49 AM APPLICATION ENGINEER 08/09/2023 1:20 AM APPLICATION ENGINEER Price Jones APRNN.P. LAB BLOOD ADD-ON Performing Organization Address City/[facility]/ZIP Co de Phone Number [facility] [address] [place], [place] [phone] [place] [address] DTL [facility] 200 [place] [address] * (ABNORMAL) Basic Metabolic Panel (08/09/2023 12:49 AM APPLICATION ENGINEER) Pathologist [facility] Potassium, P 3.3(L) 3.6 - 5.2 mmol/L 08/09/2023 1:44 AM APPLICATION ENGINEER DTL Sodium, P 137 135 - 145 mmol/L 08/09/2023 1:44 AM APPLICATION ENGINEER DTL Chloride, P 102 98 - 107 mmol/L 08/09/2023 1:44 AM APPLICATION ENGINEER DTL Bicarbonate, P 18(L) 22 - 29 mmol/L 08/09/2023 1:44 AM APPLICATION ENGINEER DTL Anion Gap, P 17(H) 7 - 15 08/09/2023 1:44 AM APPLICATION ENGINEER DTL BUN (Blood Urea Nitrogen), P 16 6 - 21 mg/dL 08/09/2023 1:44 AM APPLICATION ENGINEER DTL Creatinine 0.95 0.59 - 1.04 mg/dL 08/09/2023 1:44 AM APPLICATION ENGINEER DTL Estimated GFR (eGFR) 75 >=60 mL/min/BSA 08/09/2023 1:44 AM APPLICATION ENGINEER DTL Comment: Estimated GFR calculated using the 2020 CKD_EPI creatinine equation. Calcium, Total, P 8.6 8.6 - 10.0 mg/dL 08/09/2023 1:44 AM APPLICATION ENGINEER DTL Glucose, P 138 70 - 140 mg/dL 08/09/2023 1:44 AM APPLICATION ENGINEER DTL Blood (Blood, Venous) 08/09/2023 12:49 AM APPLICATION ENGINEER 08/09/2023 1:20 AM APPLICATION ENGINEER Harsha Jones APRN.N.P. LAB BLOOD ADD-ON [facility] [address] [place] [address], [facility] DTL [facility] [address] [place] [address] * (ABNORMAL) CBC with Differential, Blood (08/09/2023 12:49 AM APPLICATION ENGINEER) Hemoglobin 10.8(L) 11.6 - 15.0 g/dL 08/09/2023 1:00 AM APPLICATION ENGINEER STMA Hematocrit 32.0(L) 35.5 - 44.9 % 08/09/2023 1:00 AM APPLICATION ENGINEER STMA Erythrocytes 3.33(L) 3.92 - 5.13 x10(12)/L 08/09/2023 1:00 AM APPLICATION ENGINEER STMA MCV 96.1 78.2 - 97.9 fL 08/09/2023 1:00 AM APPLICATION ENGINEER STMA RBC Distrib Width 14.1 12.2 - 16.1 % 08/09/2023 1:00 AM APPLICATION ENGINEER STMA Platelet Count 226 157 - 371 x10(9)/L 08/09/2023 1:00 AM APPLICATION ENGINEER STMA Leukocytes 7.9 3.4 - 9.6 x10(9)/L 08/09/2023 1:00 AM APPLICATION ENGINEER STMA Neutrophils 6.54(H) 1.56 - 6.45 x10(9)/L 08/09/2023 1:00 AM APPLICATION ENGINEER DHPM Lymphocytes 1.14 0.95 - 3.07 x10(9)/L 08/09/2023 1:00 AM APPLICATION ENGINEER STMA Monocytes 0.14(L) 0.26 - 0.81 x10(9)/L 08/09/2023 1:00 AM APPLICATION ENGINEER STMA Eosinophils <0.03 0.03 - 0.48 x10(9)/L 08/09/2023 1:00 AM APPLICATION ENGINEER STMA Basophils 0.04 0.01 - 0.08 x10(9)/L 08/09/2023 1:00 AM APPLICATION ENGINEER STMA Blood (Blood, Venous) 08/09/2023 12:49 AM APPLICATION ENGINEER 08/09/2023 12:58 AM APPLICATION ENGINEER Jose Cavanaugh APRN, C.N.P. LAB BLOOD ADD-ON [facility] [address] [place] [address], [place] STMA [facility] [address] [place] [address] [facility] [address] [place] [address] * (ABNORMAL) Venous Blood Gas and Electrolytes CG8+, POCT (08/09/2023 12:49 AM APPLICATION ENGINEER) [facility] Sample Site, POCT Venstick 08/09/2023 1:01 AM APPLICATION ENGINEER PCLX Comment: ----ADDITIONAL INFORMATION---- Performed at the Point of Care pH, Venous, POCT, B 7.37 7.32 - 7.43 08/09/2023 1:01 AM APPLICATION ENGINEER PCSM Comment: ----ADDITIONAL INFORMATION---- Performed at the Point of Care pCO2, Venous, POCT, B 35(L) 41 - 51 mm Hg 08/09/2023 1:01 AM APPLICATION ENGINEER PCSM Comment: ----ADDITIONAL INFORMATION---- Performed at the Point of Care pO2, Venous, POCT, B 36 Not Applicable mm Hg 08/09/2023 1:01 AM APPLICATION ENGINEER PCSM Comment: ----ADDITIONAL INFORMATION---- Performed at the Point of Care Base Excess, Venous, POCT, B -5 Not Applicable mmol/L 08/09/2023 1:01 AM APPLICATION ENGINEER PCSM Comment: ----ADDITIONAL INFORMATION---- Performed at the Point of Care HCO3, Venous, POCT, B 20 Not Applicable mmol/L 08/09/2023 1:01 AM APPLICATION ENGINEER PCSM Comment: ----ADDITIONAL INFORMATION---- Performed at the Point of Care Sodium, POCT, B 136 135 - 145 mmol/L 08/09/2023 1:01 AM APPLICATION ENGINEER PCLX Comment: ----ADDITIONAL INFORMATION---- Performed at the Point of Care Potassium, POCT, B 3.3(L) 3.6 - 5.2 mmol/L 08/09/2023 1:01 AM APPLICATION ENGINEER PCLX Comment: ----ADDITIONAL INFORMATION---- Performed at the Point of Care Calcium, Ionized, POCT, B 4.60(L) 4.65 - 5.30 mg/dL 08/09/2023 1:01 AM APPLICATION ENGINEER PCLX Comment: ----ADDITIONAL INFORMATION---- Performed at the Point of Care Glucose, POCT, B 135 70 - 140 mg/dL 08/09/2023 1:01 AM APPLICATION ENGINEER PCLX Comment: ----ADDITIONAL INFORMATION---- Performed at the Point of Care Hematocrit, POCT, B 31.0(L) 35.5 - 44.9 % 08/09/2023 1:01 AM APPLICATION ENGINEER PCLX Comment: ----ADDITIONAL INFORMATION---- Performed at the Point of Care Blood (Blood, Venous) 08/09/2023 12:49 AM APPLICATION ENGINEER 08/09/2023 12:49 AM APPLICATION ENGINEER Jose Cavanaugh APRN, C.N.P. LAB POCT ORDERABLES - DEVICE Performing Organization Address [facility] de Phone Number [facility] [address] [place] [address], [facility] PCLX [facility] [address] [place] [address] PCSM [facility] [address] [place] [address] * Lactate for Sepsis with Reflex, POCT (08/09/2023 12:49 AM APPLICATION ENGINEER) Lactate, POCT 1.33 0.50 - 2.20 mmol/L 08/09/2023 1:01 AM APPLICATION ENGINEER PCLX Blood (Blood, Venous) 08/09/2023 12:49 AM APPLICATION ENGINEER 08/09/2023 12:49 AM APPLICATION ENGINEER Jose Cavanaugh APRN, C.N.P. LAB POCT ORDERABLES - DEVICE Performing Organization Address [facility] de Phone Number [facility] [address] [place] [address], [facility] PCLX [facility] [address] [place] [address] documented in this encounter Visit Diagnoses Diagnosis Sepsis (HCC)- Primary Sepsis (HCC) Multiple Myeloma Not Having Achieved Remission (HCC) documented in this encounter Admitting Diagnoses Diagnosis Sepsis (HCC) documented in this encounter Administered Medications Inactive Administered Medications - up to 3 most recent administrations Medication Order MAR Action Action Date Dose Rate Site acetaminophen tablet 500 mg (TYLENOL) 500 mg, oral, 4 times daily PRN, mild pain or score 1-3 of 10, Starting on Sat08/09/23 at 0536 amoxicillin-pot clavulanate 875-125 mg per tablet 1 tablet (AUGMENTIN) 1 tablet, oral, Every 12 hours scheduled, First dose on Sat08/09/23 at 0900, Drug Monitoring Program: Pharmacist to adjust medication dosing based on indication and drug clearance factors., Indications: Sepsis syndrome, unknown source, community acquired Given 08/09/2023 9:34 AM APPLICATION ENGINEER 1 tablet dexAMETHasone tablet 1 mg (DECADRON) 1 mg, oral, Every 12 hours scheduled, First dose on Sat08/09/23 at 0900, For 85 days Given 08/09/2023 9:34 AM APPLICATION ENGINEER 1 mg heparin (porcine) injection 5,000 Units 5,000 Units, subcutaneous, Every 8 hours scheduled, First dose on Sat08/09/23 at 1400 NaCl 0.9 % bolus 1,000 mL 1,000 mL, intravenous, at 1,000 mL/hr, Administer over 1 Hours, Once, On Sat08/09/23 at 0153, For 1 dose New Bag 08/09/2023 2:05 AM APPLICATION ENGINEER 1,000 mL 1000 mL/hr norepinephrine 16 mcg/mL in D5W 250 mL infusion 0-0.3 mcg/kg/min ? 77 kg Order-specific weight (0-86.625 mL/hr, rounded to 0-86.63 mL/hr), intravenous, Continuous, Starting on Sat08/09/23 at 0034, Protect from light and avoid extravasation, Patient Type: Standard, Initiate at: 0.05 mcg/kg/min, Titrate at: 0.05 mcg/kg/min. every 5 min., Wean at: 0.01 mcg/kg/min. every 5 min., Goal: MAP 60-80 Restarted 08/09/2023 6:16 AM APPLICATION ENGINEER 0.02 mcg/kg/min 5.78 mL/hr Rate/Dose Change 08/09/2023 5:26 AM APPLICATION ENGINEER 0.05 mcg/kg/min 14 .4 mL/hr Rate/Dose Change 08/09/2023 2:40 AM APPLICATION ENGINEER 0.1 mcg/kg/min 28. 9 mL/hr oxyCODONE IR tablet 10 mg (ROXICODONE) 10 mg, oral, Every 4 hours PRN, severe pain or score 7-10 of 10, Starting on Sat08/09/23 at 0537 oxyCODONE IR tablet 5 mg (ROXICODONE) 5 mg, oral, Every 6 hours PRN, moderate pain or score 4-6 of 10, Starting on Sat08/09/[address] tablet 40 mg (PROTONIX) 40 mg, oral, Daily before breakfast, First dose on Sat08/09/23 at 0700, pantoprazole 40 mg oral daily was interchanged for omeprazole 20 or 40 mg oral daily Swallow whole. Do NOT crush, chew, or split tablet. Given 08/09/2023 7:22 AM APPLICATION ENGINEER 40 mg piperacillin-tazobactam in dextrose (iso osm) IVPB 3.375 g (ZOSYN) 3.375 g, intravenous, at 100 mL/hr, Administer over 0.5 Hours, Once, On Sat08/09/23 at 0230, For 1 dose, Drug Monitoring Program: Pharmacist to adjust medication dosing based on indication and drug clearance factors., Indications: Intra-abdominal infection, community acquired New Bag 08/09/2023 2:21 AM APPLICATION ENGINEER 3.375 g 1 00 mL/hr potassium chloride ER tablet 40 mEq (KLORCON/K-TAB) 40 mEq, oral, Once, On Sat08/09/23 at 0700, For 1 dose, For K<3.3-3.5 mEq/L - give total of 40 mEq Swallow whole. Do NOT crush, chew, or split tablet., Monitor the following for replacement: Potassium, Replace Potassium per: Standard Schedule Given 08/09/2023 7:23 AM APPLICATION ENGINEER 40 mEq documented in this encounter Active and Recently Administered Medications Times are shown in APPLICATION ENGINEER. Scheduled Medication Order 08/07/2023 08/08/2023 08/09/2023 amoxicillin-pot clavulanate 875-125 mg per tablet 1 tablet (AUGMENTIN) 1 tablet, oral, Every 12 hours scheduled, First dose on Sat08/09/23 at 0900, Drug Monitoring Program: Pharmacist to adjust medication dosing based on indication and drug clearance factors., Indications: Sepsis syndrome, unknown source, community acquired 0934 (Given - Provid er: Ny Lucero R.N.) dexAMETHasone tablet 1 mg (DECADRON) 1 mg, oral, Every 12 hours scheduled, First dose on Sat08/09/23 at 0900, For 85 days 0554 (Held by [facility] er - Provider: Meet Mcgregor M.D., Pharm.D. - Comment: For initial eval)0841 (Unheld by provider - Provider: Juani Morfin PharmSantoshDSantosh, R.Ph.)0934 (Given - Provider: Ny Lucero R.N.) heparin (porcine) injection 5,000 Units 5,000 Units, subcutaneous, Every 8 hours scheduled, First dose on Sat08/09/23 at 1400 1400 (Due) lisinopril-hydroCHLOROthiazide 10-12.5 mg per tablet 1 tablet (PRINZIDE,ZESTORETIC) 1 tablet, oral, Every morning, First dose on Sat08/09/23 at 0900, On hold since Sat08/09/2023 at 0554 until manually unheld 0554 (Held by [facility] er - Provider: Meet Mcgregor M.D., Pharm.D. - Comment: For initial hypotension)0900 (Not Given - Provider: Ny Lucero R.N. - Reason: See Provider Order)1738 (Unheld by provider - Provider: Discharge Provider, Automatic) NaCl 0.9 % bolus 1,000 mL (COMPLETED) 1,000 mL, intravenous, at 1,000 mL/hr, Administer over 1 Hours, Once, On Sat08/09/23 at 0153, For 1 dose 0205 (New Bag - Prov ider: Luan LincolnNSantosh)0305 (Due: Stopped - Provider: Rachel Girard R.N.) pantoprazole DR tablet 40 mg (PROTONIX) 40 mg, oral, Daily before breakfast, First dose on Sat08/09/23 at 0700, pantoprazole 40 mg oral daily was interchanged for omeprazole 20 or 40 mg oral daily Swallow whole. Do NOT crush, chew, or split tablet. 0722 (Given - Provid er: Ny Lucero R.N.) piperacillin-tazobactam in dextrose (iso osm) IVPB 3.375 g (ZOSYN) (COMPLETED) 3.375 g, intravenous, at 100 mL/hr, Administer over 0.5 Hours, Once, On Sat08/09/23 at 0230, For 1 dose, Drug Monitoring Program: Pharmacist to adjust medication dosing based on indication and drug clearance factors., Indications: Intra-abdominal infection, community acquired 0221 (New Bag - Prov ider: Rachel Girard RSantoshNSantosh)0249 (Stopped - Provider: Rachel Girard R.N.) potassium chloride ER tablet 40 mEq (KLORCON/K-TAB) (COMPLETED) 40 mEq, oral, Once, On Sat08/09/23 at 0700, For 1 dose, For K<3.3-3.5 mEq/L - give total of 40 mEq Swallow whole. Do NOT crush, chew, or split tablet., Monitor the following for replacement: Potassium, Replace Potassium per: Standard Schedule 0723 (Given - Provid er: Ny Lucero R.N.) Continuous Medication Order 08/07/2023 08/08/2023 08/09/2023 norepinephrine 16 mcg/mL in D5W 250 mL infusion (CANCELED) 0-0.3 mcg/kg/min ? 77 kg Order-specific weight (0-86.625 mL/hr, rounded to 0-86.63 mL/hr), intravenous, Continuous, Starting on Sat08/09/23 at 0034, Protect from light and avoid extravasation, Patient Type: Standard, Initiate at: 0.05 mcg/kg/min, Titrate at: 0.05 mcg/kg/min. every 5 min., Wean at: 0.01 mcg/kg/min. every 5 min., Goal: MAP 60-80 0041 (New Bag - Prov ider: Reyna Mayorga R.N.)0048 (Rate/Dose Change - Provider: Reyna Mayorga RSantoshN.)0058 (Rate/Dose Change - Provider: Luan WoodsN.)0106 (Rate/Dose Change - Provider: Reyna Mayorga R.N.)0139 (Rate/Dose Change - Provider: Josias Woods.N.)0204 (Rate/Dose Change - Provider: Rachel Girard R.N.)0216 (Rate/Dose Change - Provider: Rachel Girard R.N.)0224 (Rate/Dose Change - Provider: Rachel Girard R.N.)0230 (Rate/Dose Change - Provider: Rachel Girard R.N.)0240 (Rate/Dose Change - Provider: Rachel Girard R.N.)0526 (Rate/Dose Change - Provider: Simi Hubbard R.N.)0531 (Stopped - Provider: Simi Hubbard R.N.)0616 (Restarted - Provider: Isis Smith R.N.)0632 (Stopped - Provider: Isis Smith R.N.) PRN Medication Order 08/07/2023 08/08/2023 08/09/2023 acetaminophen tablet 500 mg (TYLENOL) 500 mg, oral, 4 times daily PRN, mild pain or score 1-3 of 10, Starting on Sat08/09/23 at 0536 oxyCODONE IR tablet 10 mg (ROXICODONE)(Linked Group 1) 10 mg, oral, Every 4 hours PRN, severe pain or score 7-10 of 10, Starting on Sat08/09/23 at 0537 oxyCODONE IR tablet 5 mg (ROXICODONE)(Linked Group 1) 5 mg, oral, Every 6 hours PRN, moderate pain or score 4-6 of 10, Starting on Sat08/09/23 at 0537 Linked Groups Order Group 1: oxyCODONE IR tablet 5 mg (ROXICODONE)Jump to med 5 mg, oral, Every 6 hours PRN, moderate pain or score 4-6 of 10, Starting on Sat08/09/23 at 0537 Or oxyCODONE IR tablet 10 mg (ROXICODONE)Jump to med 10 mg, oral, Every 4 hours PRN, severe pain or score 7-10 of 10, Starting on Sat08/09/23 at 0537 documented in this encounter Additional Health Concerns Infection Onset Date Last Indicated Resolved Time Protective Environment 06/04/2023 06/04/2023 documented as of this encounter Care Teams Marketing Strategy Analyst Relationship Specialty Start Date End Date Elsewhere, Pcp PCP - General Family Medicine 06/17/23 documented as of this encounter
--- OUTSIDE RECORDS SUMMARY | 2023-08-09 19:00 | XMS_ITS | Encounter Summary ---
Author Name Unknown Organization [facility] Address [address] [place] [address] Care Team Providers Care Transportation Superintendent Name Role Phone Elsewhere, Pcp Primary Care Provider Unavailabl e Encounter Details Date Type Department Care Team (Late st Contact Info) Description 08/09/2023 Documentation Department of Oncology in [place], [place] [address] [place] [phone] Pérez Zuniga M.D., Ph.D. [address] [place] [phone] Social History Tobacco Use Types Packs/Day Years [...] your living situation today? I have a [facility] place to live 07/10/2023 Sex and Gender Information Value Date Recorded Sex Assigned at Female 05/31/2023 8:26 AM [employer] Gender Identity Female 05/31/2023 8:26 AM COMM[employer] Sexual Orientation Straight 05/31/2023 8: 26 AM COMMISSIONER [employer] documented as of this encounter Progress Notes * Pérez Zuniga M.D., Ph.D. - 08/09/2023 11:06 AM CST I saw Mrs. Cota in the hospital. She was admitted with hypotension and fever. Fully recovered thismorning with the care of our ICU team. I suspect that the main culprit for the events pre-admissionwas a recent viral infection (ill child) along with ongoing dabrafenib + trametinib therapy, complicated by nausea and dramatic decrease in PO intake. With all that in mind, we will hold the chemo meds today and tomorrow; she will make sure that she is taking enough fluids every day as this will bethe requirement to restart chemo on Saturday or Saturday morning. We will recheck the LFT's on Saturday and of next week; this is a common abnormality with this form of chemotherapy. We will just m onitor and adjust meds as needed. She has an appointment in about 10 days to see us on Gonda 10. Mrs. Cota was very appreciative for the visit. I am very grateful to the ICU team for their outstanding care. The patient should be OK to dismiss today. [employer]ER [employer] documented in this encounter Plan of Treatment Upcoming Encounters Date Type Department Care Team (Late st Contact Info) Description 08/19/2023 6:40 AM COMMISSIONER [employer] Appointment [facility] [address] [phone] Pérez Zuniga M.D., Ph.D. [address] [place] [phone] 08/19/2023 7:00 AM COMM[employer]ER [employer] Ancillary Procedure Department of Cardiovascular Medicine in [address] [phone] Pérez Zuniga M.D., Ph.D. [address] [place] [phone] 08/19/2023 9:00 AM COMMISSIONER [employer] Appointment Department of Radiology, [facility] in [address] [phone] Pérez Zuniga M.D., Ph.D. [address] [place] [phone] 08/19/2023 3:40 PM [employer] Office Visit Department of Oncology in [address] [phone] Zhane Granados APRN, C.N.P. [address] [place] [phone] 08/21/2023 10:15 AM [employer] Clinical Support Department of Palliative Care in [place], [place] [address] [place] [phone] Serenity Kelsey P.A.-C. [address] [place] [phone] Meka Rinaldi D.N.Dina., R.N., [facility] documented as of this encounter Visit Diagnoses Not on filedocumented in this encounter Additional Health Concerns Infection Onset Date Last Indicated Resolved Time Protective Environment 06/04/2023 06/04/2023 documented as of this encounter Care Teams Transportation Superintendent Relationship Specialty Start Date End Date Elsewhere, Pcp PCP - General Family Medicine 06/17/23 documented as of this encounter
--- OUTSIDE RECORDS SUMMARY | 2023-08-09 19:00 | XMS_ITS | Encounter Summary ---
Author Name Unknown Organization [facility] Address [address] [place] [address] Care Team Providers Care Piercer Name Role Phone Elsewhere, Pcp Primary Care Provider Unavailabl e Encounter Details Date Type Department Care Team (Late st Contact Info) Description 08/09/2023 12:40 AM INSIDE STEWARD/STEWARDESS Ancillary Procedure Department of Radiology in [place], [place] [address] [place] [phone] Jose Cavanaugh, GAIL, C.N.P. [address] [place] [phone] Arrived Social History Tobacco Use Types Packs/Day Years [...] Sex Assigned at Female 05/31/2023 8:26 AM INSIDE STEWARD/STEWARDESS Gender Identity Female 05/31/2023 8:26 AM INSIDE STEWARD/STEWARDESS Sexual Orientation Straight 05/31/2023 8: 26 AM INSIDE STEWARD/STEWARDESS documented as of this encounter Plan of Treatment Upcoming Encounters Date Type Department Care Team (Late st Contact Info) Description 08/19/2023 6:40 AM INSIDE STEWARD/STEWARDESS Appointment Department of Laboratory Medicine and Pathology, [facility] in [place], [place] [address] [place] [phone] Pérez Zuniga M.D., Ph.D. [address] [place] [phone] 08/19/2023 7:00 AM INSIDE STEWARD/STEWARDESS Ancillary Procedure Department of Cardiovascular Medicine in [place], [place] [address] [place] [phone] Pérez Zuniga M.D., Ph.D. [address] [place] [phone] 08/19/2023 9:00 AM INSIDE STEWARD/STEWARDESS Appointment Department of Radiology, [facility], in [place], [place] [address] [place] [phone] Pérez Zuniga M.D., Ph.D. [address] [place] [phone] 08/19/2023 3:40 PM INSIDE STEWARD/STEWARDESS Office Visit Department of Oncology in [place], [place] [address] [place] [phone] Zhane Granados APRN, C.N.P. [address] [place] [phone] 08/21/2023 10:15 AM INSIDE STEWARD/STEWARDESS Clinical Support Department of Palliative Care in [place], [place] [address] [place] [phone] Serenity Kelsey, P.A.-C. [address] [place] [phone] Meka Rinaldi, Elvin.N.P., R.N., [facility] documented as of this encounter Procedures Procedure Name Priority Date/Time Associated Diagnosis Comments INTERPRETATION OF OUTSIDE CT ABDOMEN AND OR PELVIS RAD - Semiurgent (Fast; most ED patients; some inpatients) 08/09/2023 2:14 AM INSIDE STEWARD/STEWARDESS documented in this encounter Results * Interpretation of Outside CT Abdomen and or Pelvis (08/09/2023 2:14 AM INSIDE STEWARD/STEWARDESS) Anatomical Region Laterality Modality Abdomen, Pelvis, Abdominal R ST LOS, Abdominal ARZ LOS, Abdominal FLA LOS, Other N/A Computed Tomography Impressions 08/09/2023 5:35 AM INSIDE STEWARD/STEWARDESS 1. ??No evidence of cholangitis. 2. There is a new 13 x 20 mm nodule in the right lower lobe (2/21). This lesion has an irregular, ground glass border and contains an air bronchogram. Infection and metastatic disease are in the differential. 3. Interval increased size in multiple partially treated bone metastases. Narrative 08/09/2023 5:35 AM INSIDE STEWARD/STEWARDESS EXAM: ??INTERPRETATION OF OUTSIDE CT ABDOMEN AND [...] nodule in the right lower lobe (/). Thislesion has an irregular, ground glass border [...] bonemetastases. Jose Cavanaugh APRN, C.N.P. IMG CT NM OCEDURES documented in this encounter Visit Diagnoses Not on filedocumented in this encounter Additional Health Concerns Infection Onset Date Last Indicated Resolved Time Protective Environment 06/04/2023 06/04/2023 documented as of this encounter Care Teams Piercer Relationship Specialty Start Date End Date Elsewhere, Pcp PCP - General Family Medicine 06/17/23 documented as of this encounter
--- OUTSIDE RECORDS SUMMARY | 2023-08-09 19:00 | XMS_ITS | Referral Summary ---
Author Name Unknown Organization [facility] Address [address] [place] [phone] Care Team Providers Care Pollution Control Chemist Name Role Phone Elsewhere, Pcp Primary Care Provider Unavailabl e Source Comments Patient records contain information from all sites at [facility]. For routine questions regarding patient records, call [phone] during business hours, M-F 8:00 AM - 5:00 PM Central Time. Record requests for emergency care only can be directed to [phone] at any time.[facility] Encounters Date Type Department Care Team Description 08/09/2023 Clinical Communication Department of Oncology in [place], [place] [address] [place] [phone] Anahy Amezcua R.N., O.C.N. 08/09/2023 Documentation Department of Oncology in [place], [place] [address] [place] [phone] Pérez Zuniga M.D., Ph.D. 08/09/2023 12:40 AM GRADE AND CENTER MARKER Ancillary Procedure Department of Radiology in [place], [place] [address] [place] [phone] Jose Cavanaugh APRN, C.N.P. Arrived 08/09/2023 12:21 AM GRADE AND CENTER MARKER - 08/09/2023 3:38 PM GRADE AND CENTER MARKER Hospital Encounter [facility], Tenth Floor [address] [place] [address] Jose Cavanaugh APRN, Harsha.N.P. Ciaran Reese M.D. Felicity Vargas M.D. Veda Sanchez M.B.B.S. Sepsis (HCC) (Primary Dx); Multiple Myeloma Not Having Achieved Remission (HCC) Discharge Disposition: Home or Self Care 08/09/2023 Hospital Encounter [facility] Bed Planning Felicity Vargas M.D. Ranganath, Nischal, M.D., Ph.D. 08/08/2023 Intake [facility] 08/08/2023 Clinical Communication Department of Oncology in [address] [phone] Cherelle Sanabria M.D. 08/06/2023 2:30 PM GRADE AND CENTER MARKER Clinical Communication Virtual Review in [address] [address] 08/04/2023 Specialty Pharmacy [facility] [address] [place] [address] [facility] 07/29/2023 10:15 AM GRADE AND CENTER MARKER Telemedicine Department of Palliative Care in [address] [phone] Valentine Kelsey M.D., M.S. Melanoma Trunk (HCC) (Primary Dx); Secondary Malignant Neoplasm Bone (HCC); Pain Cancer Associated; Palliative Care 07/26/2023 1:15 PM GRADE AND CENTER MARKER Telemedicine Department of Palliative Care in [address] [phone] Marija Olivas APRN, C.N.P., M.S.N. Meka Rinaldi D.N.P., R.N., [facility] Palliative Care 07/17/2023 12:10 AM GRADE AND CENTER MARKER Ancillary Procedure Department of Dermatology 07/17/2023 12:05 AM GRADE AND CENTER MARKER Ancillary Procedure Department of Dermatology 07/17/2023 12:45 PM GRADE AND CENTER MARKER Ancillary Procedure Department of Ophthalmology 07/17/2023 Ancillary Procedure Department of Ophthalmology 07/17/2023 11:45 AM GRADE AND CENTER MARKER Office Visit Department of Ophthalmology in [place], [place] [address] [place] [phone] Wolfgang Larose M.D. Hemorrhage Retinal Bilateral (Primary Dx); Melanoma Trunk (HCC) 07/17/2023 10:40 AM GRADE AND CENTER MARKER Ancillary Procedure Department of Ophthalmology in [place], [place] [address] [place] [phone] Phi Palm M.D., Ph.D. 07/17/2023 11:30 AM GRADE AND CENTER MARKER Ancillary Procedure Department of Ophthalmology in [place], [place] [address] [place] [phone] Phi Palm M.D., Ph.D. Hemorrhage Retinal Bilateral 07/17/2023 10:00 AM GRADE AND CENTER MARKER Procedure visit Department of Ophthalmology in [place], [place] [address] [place] [phone] Phi Palm M.D., Ph.D. Suleiman Vargas Hemorrhage Retinal Bilateral 07/17/2023 4:15 PM GRADE AND CENTER MARKER Comprehensive Visit Department of Dermatology in [place], [place] [address] [place] [phone] Naida Mejia P.A.-C., M.S. Anh Lee M.D. Nevi Multiple (Primary Dx); Melanoma Trunk (HCC); Secondary Malignant Neoplasm Bone (HCC); Screening Examination Skin Cancer; Dermatoheliosis; Tumor Skin Uncertain Behavior 07/16/2023 Clinical Communication Department of Palliative Care in [address] [phone] Meka Rinaldi D.N.P., R.N., [facility] 07/10/2023 Orders Only Department of Ophthalmology in [place], [place] [address] [place] [phone] Ani Bashir 07/05/2023 2:30 PM GRADE AND CENTER MARKER Comprehensive Visit Department of Ophthalmology in [place], [place] [address] [place] [phone] Wolfgang Larose M.D. Hemorrhage Retinal Bilateral (Primary Dx) 07/05/2023 Clinical Communication Department of Oncology in [place], [place] [address] [place] [address] Anahy Amezcua R.N., O.C.N. Sx - retinal hemorrhaging 07/04/2023 Clinical Communication Department of Ophthalmology in [place], [place] [address] [place] [address] Provider, Unknown 07/04/2023 Clinical Communication Department of Palliative Care in [place], [place] [address] [place] [phone] Inés Wiley R.N. 07/04/2023 10:30 AM GRADE AND CENTER MARKER Clinical Support Department of Palliative Care in [place], [place] [address] [place] [phone] Valentine Kelsey M.D., M.S. Inés Wiley RHaider. Melanoma Trunk (HCC); Nausea 07/04/2023 9:36 AM GRADE AND CENTER MARKER - 07/04/2023 11:59 PM GRADE AND CENTER MARKER Hospital Encounter Department of Laboratory Medicine and Pathology, [facility] in [place], [place] [address] [place] [address] éPrez Zuniga M.D., Ph.D. Melanoma Trunk (HCC); Secondary Malignant Neoplasm Bone (HCC); Other Senior Living Current Drug Therapy Discharge Disposition: Home or Self Care 07/04/2023 12:20 PM GRADE AND CENTER MARKER Office Visit Department of Oncology in [place], [place] [address] [place] [address] Pérez Zuniga M.D., Ph.D. Melanoma Trunk (HCC) (Primary Dx); Nausea 07/01/2023 Clinical Communication [facility] [address] [place] [phone] Cherelle Brooks C.Ph.T. Redirect Prescriptions 07/01/2023 3:00 PM GRADE AND CENTER MARKER Telemedicine Department of Palliative Care in [place], [place] [address] [place] [phone] Valentine Kelsey M.D., M.S. Melanoma Trunk (HCC) (Primary Dx); Nausea; Pain Cancer Associated; Palliative Care 06/24/2023 Clinical Communication Department of Palliative Care in [address] [phone] Valentine Kelsey M.D., M.S. Rx Denial (XTAMPZA ER 9 MG CAPSULES) 06/21/2023 8:30 AM GRADE AND CENTER MARKER Comprehensive Visit Department of Palliative Care in [address] [phone] Pérez Zuniga M.D., Ph.D. Valentine Kelsey M.D., M.S. Rachelle Oliver R.Makenzie. Melanoma Trunk (HCC); Secondary Malignant Neoplasm Bone (HCC) 06/20/2023 3:00 PM GRADE AND CENTER MARKER Nurse Only Department of Oncology in [address] [phone] Laura Dalal M.D. Akosua Liz D.NAurelia, R.N. 06/20/2023 11:46 AM GRADE AND CENTER MARKER - 06/20/2023 12:06 PM GRADE AND CENTER MARKER Hospital Encounter Department of Laboratory Medicine and Pathology, [facility], in [address] [address] Pérez Zuniga M.D., Ph.D. Melanoma Trunk (HCC); Secondary Malignant Neoplasm Bone (HCC) Discharge Disposition: Home or Self Care 06/20/2023 12:07 PM GRADE AND CENTER MARKER - 06/20/2023 11:59 PM GRADE AND CENTER MARKER Hospital Encounter Department of Cardiovascular Diseases in [address] [address] Pérez Zuniga M.D., Ph.D. Melanoma Trunk (HCC); Secondary Malignant Neoplasm Bone (HCC); Other Assistant Press Operator Current Drug Therapy Discharge Disposition: Home or Self Care 06/20/2023 4:40 PM GRADE AND CENTER MARKER Office Visit Department of Oncology in [address] [address] Pérez Zuniga M.D., Ph.D. Melanoma Trunk (HCC) (Primary Dx); Secondary Malignant Neoplasm Bone (HCC); Other Senior Living Current Drug Therapy 06/17/2023 7:00 AM GRADE AND CENTER MARKER Clinical Communication Virtual Review in [place], [place] [address] [place] [address] Pre-visit Intake 06/10/2023 Clinical Communication Department of Oncology in [place], [place] [address] [place] [phone] Akosua Liz D.N.P., R.N. 06/05/2023 Clinical Communication [facility] [address] [place] [phone] Joanne Yoo C.Ph.T. Specialty Medication Delivery 06/05/2023 Specialty Pharmacy [facility] [place] [phone] Yessi Patel, Pharm.D., R.Ph. Melanoma Trunk (HCC) (Primary Dx) 06/05/2023 Specialty Pharmacy [facility] [address] [place] [phone] Yessi Patel, Pharm.D., R.Ph. 06/05/2023 Clinical Communication Department of Oncology in [place], [place] [address] [place] [phone] Anahy Amezcua R.N., O.C.N. 06/04/2023 4:40 PM GRADE AND CENTER MARKER Education Department of Oncology in [place], [place] [address] [place] [address] Pérez Zuniga M.D., Ph.D. Anahy Amezcua R.N., O.C.N. Melanoma Trunk (HCC); Secondary Malignant Neoplasm Bone (HCC) 06/04/2023 Orders Only [facility] [place] [phone] Joy Hernandez, Pharm.D., R.Ph. 06/04/2023 7:35 AM GRADE AND CENTER MARKER Ancillary Procedure Department of Radiology in [place], [place] [address] [place] [address] Pérez Zuniga M.D., Ph.D. Melanoma Trunk (HCC); Secondary Malignant Neoplasm Bone (HCC) 06/04/2023 7:35 AM GRADE AND CENTER MARKER Ancillary Procedure Department of Radiology in [place], [place] [address] [place] [phone] Pérez Zuniga M.D., Ph.D. Melanoma Trunk (HCC); Secondary Malignant Neoplasm Bone (HCC) 06/04/2023 2:20 PM GRADE AND CENTER MARKER Comprehensive Visit Department of Oncology in [address] [phone] Pérez Zuniga M.D., Ph.D. Melanoma Trunk (HCC) (Primary Dx); Secondary Malignant Neoplasm Bone (HCC); Other Assistant Press Operator Current Drug Therapy 05/30/2023 1:00 PM GRADE AND CENTER MARKER Lab RST RO LMP [address] [place] [phone] Naida Mejia P.A.-C., M.S. Melanoma Trunk (HCC); Secondary Malignant Neoplasm Bone (HCC) 05/29/2023 Clinical Communication Department of Oncology in [address] [phone] Naida Mejia P.A.-Harsha., M.S. Pre-visit Testing Orders 05/29/2023 2:15 PM GRADE AND CENTER MARKER Admin Visit Department of Oncology in [address] [phone] 05/29/2023 5:21 PM GRADE AND CENTER MARKER - 05/29/2023 5:49 PM GRADE AND CENTER MARKER Hospital Encounter Department of Laboratory Medicine and Pathology, [facility] in [place], [place] [address] [place] [phone] Naida Mejia P.A.-C., M.S. Melanoma Trunk (HCC); Secondary Malignant Neoplasm Bone (HCC) Discharge Disposition: Home or Self Care 05/29/2023 5:50 PM GRADE AND CENTER MARKER - 05/29/2023 11:59 PM GRADE AND CENTER MARKER Hospital Encounter Department of Radiology, [facility] in [place], [place] [address] [place] [phone] Naida Mejia P.A.-C., M.S. Melanoma Trunk (HCC); Secondary Malignant Neoplasm Bone (HCC) Discharge Disposition: Home or Self Care 05/28/2023 Clinical Communication Department of Oncology in [place], [place] [address] [place] [address] Naida Mejia P.A.-C., M.S. Pre-visit Testing Orders (New Reg) 05/24/2023 7:55 AM GRADE AND CENTER MARKER Lab RST RO LMP [address] [place] [phone] Naida Mejia P.A.-C., M.S. Melanoma Trunk (HCC); Secondary Malignant Neoplasm Bone (HCC) 05/23/2023 Clinical Communication Department of Oncology in [place], [place] [address] [place] [phone] Naida Mejia P.A.-C., M.S. 05/23/2023 Clinical Communication Department of Oncology in [place], [place] [address] [place] [phone] Provider, Unknown [facility] (Med Onc) 05/22/2023 Clinical Communication Department of Oncology in [place], [place] [address] [place] [phone] Naida Mejia P.A.-C., M.S. 05/22/2023 Clinical Communication Department of Oncology in [address] [phone] Prescheduling, Provider Pre-visit Intake (NEW REG ) 05/13/2023 11:59 PM CDT Hospital Encounter Department of Radiology, [facility], in [place], [place] [address] [place] [phone] Lacho Joshi M.D. Canceled (Patient: Request) Discharge [...] Diagnosed Date Sepsis 08/08/2023 Melanoma Trunk 06/04/2023 Social History Tobacco Use Types Packs/Day Years Used Date Smoking Tobacco: Never Passive Smoke Exposure: Never Smokeless Tobacco: Never Tobacco Cessation:Counseling Given: Not Answered Alcohol Use Standard Drinks/Week Comments Not Currently 6 (1 standard drink = 0.6 oz pur e alcohol) Occasional [employer] Answer Date Recorded In the past 12 months has e [employer], gas, oil, or water [employer] threatened to shut off services in your [...] your living situation today? I have a [facility] place to live 07/10/2023 Sex and Gender Information Value Date Recorded Sex Assigned at Female 05/31/2023 8:26 AM GRADE AND CENTER MARKER Gender Identity Female 05/31/2023 8:26 AM GRADE AND CENTER MARKER Sexual Orientation Straight 05/31/2023 8: 26 AM GRADE AND CENTER MARKER Last Filed Vital Signs Vital Sign Reading Time Taken Comments Blood Pressure 97/61 08/09/2023 3:00 PM GRADE AND CENTER MARKER Pulse 96 08/09/2023 3:00 PM GRADE AND CENTER MARKER Temperature 36.9 ??C (98.5 ??F) 08/09/2023 3:00 PM CS T Respiratory Rate 18 08/09/2023 3:00 PM GRADE AND CENTER MARKER Oxygen Saturation 99% 08/09/2023 3:00 PM GRADE AND CENTER MARKER Inhaled Oxygen Concentration - - Weight 79.3 kg (174 lb 13.2 oz) 08/09/2023 7:30 AM GRADE AND CENTER MARKER Height 154.9 cm (5' 1) 08/09/2023 8:00 AM GRADE AND CENTER MARKER Body Mass Index 33.03 08/09/2023 7:30 AM GRADE AND CENTER MARKER Plan of Treatment Upcoming Encounters Date Type Department Care Team (Late st Contact Info) Description 08/19/2023 6:40 AM GRADE AND CENTER MARKER Appointment Department of Laboratory Medicine and Pathology, [facility], in [place], [place] [address] [place] [phone] Pérez Zuniga M.D., Ph.D. [address] [place] [phone] 08/19/2023 7:00 AM GRADE AND CENTER MARKER Ancillary Procedure Department of Cardiovascular Medicine in [place], [place] [address] [place] [phone] Pérez Zuniga M.D., Ph.D. [address] [place] [phone] 08/19/2023 9:00 AM GRADE AND CENTER MARKER Appointment Department of Radiology, [facility], in [place], [place] [address] [place] [address] Pérez Zuniga M.D., Ph.D. [address] [place] [phone] 08/19/2023 3:40 PM GRADE AND CENTER MARKER Office Visit Department of Oncology in [place], [place] [address] [place] [phone] Zhane Granados, MATERIAL STRESS TESTER, C.N.P. [address] [place] [phone] 08/21/2023 10:15 AM GRADE AND CENTER MARKER Clinical Support Department of Palliative Care in [place], [place] [address] [place] [phone] Serenity Kelsey, P.A.-C. [address] [place] [phone] Meka Rinaldi D.N.P., R.N., [facility] Procedures Procedure Name Priority Date/Time Associated Diagnosis Comments HEPATIC FUNCTION PANEL, S Timed 08/09/2023 12:22 PM GRADE AND CENTER MARKER US GALLBLADDER AND OR BILIARY DUCTS RAD - Semiurgent (Fast; most ED patients; some inpatients) 08/09/2023 2:44 AM GRADE AND CENTER MARKER INTERPRETATION OF OUTSIDE CT ABDOMEN AND OR PELVIS RAD - Semiurgent (Fast; most ED patients; some inpatients) 08/09/2023 2:14 AM GRADE AND CENTER MARKER ECG STAT 08/09/2023 12:49 AM GRADE AND CENTER MARKER VBG & LYTES CG8+, POCT, B STAT 08/09/2023 12:49 AM GRADE AND CENTER MARKER LACTATE FOR SEPSIS WITH REFLEX, POCT STAT 08/09/2023 12:49 AM GRADE AND CENTER MARKER LIPASE, S/P STAT 08/09/2023 12:49 AM GRADE AND CENTER MARKER HEPATIC FUNCTION PANEL, S STAT 08/09/2023 12:49 AM GRADE AND CENTER MARKER BASIC METABOLIC PANEL, S/P STAT 08/09/2023 12:49 AM GRADE AND CENTER MARKER CBC WITH DIFFERENTIAL, B STAT 08/09/2023 12:49 AM GRADE AND CENTER MARKER OUTSIDE CT BODY Routine 08/08/2023 6:45 PM GRADE AND CENTER MARKER OUTSIDE DX CHEST Routine 08/08/2023 6:10 PM GRADE AND CENTER MARKER DERMATOPATHOLOGY Routine 07/17/2023 4:41 PM GRADE AND CENTER MARKER 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) Screening Examination Skin Cancer Dermatoheliosis Nevi Multiple ANGIOGRAPHY - OU - BOTH EYES Routine 07/17/2023 12:55 PM GRADE AND CENTER MARKER Hemorrhage Retinal Bilateral OPHTHALMOLOGY IMAGE EXAM Routine 07/17/2023 12:45 PM GRADE AND CENTER MARKER FUNDUS PHOTOS - OU - BOTH EYES Routine 07/17/2023 11:52 AM GRADE AND CENTER MARKER Hemorrhage Retinal Bilateral DERMATOLOGY IMAGE EXAM Routine 4 12:10 AM GRADE AND CENTER MARKER DERMATOLOGY IMAGE EXAM Routine 4 12:05 AM GRADE AND CENTER MARKER OPHTHALMOLOGY IMAGE EXAM Routine 07/17/2023 12:00 AM GRADE AND CENTER MARKER ECG Routine 07/04/2023 10:08 AM GRADE AND CENTER MARKER 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) Other Assistant Press Operator Current Drug Therapy CBC WITH DIFFERENTIAL, B Routine 07/04/2023 9:50 AM GRADE AND CENTER MARKER 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) Other Senior Living Current Drug Therapy THYROID FUNCTION CASCADE, S Routine 07/04/2023 9:49 AM GRADE AND CENTER MARKER 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) Other Senior Living Current Drug Therapy COMPREHENSIVE METABOLIC PANEL, S/P Routine 07/04/2023 9:49 AM GRADE AND CENTER MARKER 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) Other Senior Living Current Drug Therapy (TTE) 2D ECHO DOPPLER COLOR Routine 06/20/2023 1:28 PM GRADE AND CENTER MARKER 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) Other Senior Living Current Drug Therapy TYPE AND SCREEN Routine 06/20/2023 12:01 PM GRADE AND CENTER MARKER 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) THYROID FUNCTION CASCADE, S Routine 06/20/2023 12:01 PM GRADE AND CENTER MARKER 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) COMPREHENSIVE METABOLIC PANEL, S/P Routine 06/20/2023 12:01 PM GRADE AND CENTER MARKER 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) CBC WITH DIFFERENTIAL, B Routine 06/20/2023 12:01 PM GRADE AND CENTER MARKER 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) ECG Routine 06/04/2023 4:02 PM GRADE AND CENTER MARKER 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) INTERPRETATION OF OUTSIDE NM PET SCAN RAD - Routine (most inpatients and all outpatients) 06/04/2023 7:56 AM GRADE AND CENTER MARKER 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) INTERPRETATION OF OUTSIDE MR EXTREMITY RAD - Routine (most inpatients and all outpatients) 06/04/2023 7:54 AM GRADE AND CENTER MARKER 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) MR BRAIN WITHOUT AND WITH IV CONTRAST RAD - Routine (most inpatients and all outpatients) 05/29/2023 7:09 PM GRADE AND CENTER MARKER 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) WI T4 FREE Routine 05/29/2023 5:35 PM GRADE AND CENTER MARKER THYROPEROXIDASE (TPO) ABS, S Routine 05/29/2023 5:35 PM GRADE AND CENTER MARKER THYROID FUNCTION CASCADE, S Routine 05/29/2023 5:35 PM GRADE AND CENTER MARKER 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) LACTATE DEHYDROGENASE (LD), S Routine 05/29/2023 5:35 PM GRADE AND CENTER MARKER 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) COMPREHENSIVE METABOLIC PANEL, S/P Routine 05/29/2023 5:35 PM GRADE AND CENTER MARKER 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) CBC WITH DIFFERENTIAL, B Routine 05/29/2023 5:35 PM GRADE AND CENTER MARKER Melanoma Trunk (HCC) Secondary Malignant Neoplasm Bone [...] (ABNORMAL) Hepatic Function Panel (08/09/2023 12:22 PM GRADE AND CENTER MARKER) Only the most recent of2 resultswithin the time period is included. Bilirubin, Total, S 1.3(H) 0.0 - 1.2 mg/dL 08/09/2023 1:29 PM GRADE AND CENTER MARKER DTL Bilirubin, Direct, S 1.1(H) 0.0 - 0.3 mg/dL 08/09/2023 1:29 PM GRADE AND CENTER MARKER DTL Aspartate Aminotransferase (AST), S 154(H) 8 - 43 U/L 08/09/2023 1:29 PM GRADE AND CENTER MARKER DTL Alanine Aminotransferase (ALT), S 127(H) 7 - 45 U/L 08/09/2023 1:29 PM GRADE AND CENTER MARKER DTL Alkaline Phosphatase, S 396(H) 35 - 104 U/L 08/09/2023 1:29 PM GRADE AND CENTER MARKER DTL Albumin, S 3.5 3.5 - 5.0 g/dL 08/09/2023 1:29 PM GRADE AND CENTER MARKER DTL Protein, Total, S 6.2(L) 6.3 - 7.9 g/dL 08/09/2023 1:29 PM GRADE AND CENTER MARKER DTL Blood (Blood, Venous) 08/09/2023 12:22 PM GRADE AND CENTER MARKER 08/09/2023 1:14 PM GRADE AND CENTER MARKER Lesvia Ma APRN, C.N.P., M.S.N. LA B BLOOD ADD-ON [facility] [address] [place] [address], [facility] DTL [facility] [address] [place] [address] * US Gallbladder and or Biliary Ducts (08/09/2023 2:44 AM GRADE AND CENTER MARKER) Anatomical Region Laterality Modality Abdomen, Ultrasound RST LOS, Ultrasound ARZ LOS, Ultrasound FLA LOS N/A Ultrasound Impressions 08/09/2023 8:05 AM GRADE AND CENTER MARKER Cholelithiasis without evidence of acute cholecystitis. Narrative 08/09/2023 8:05 AM GRADE AND CENTER MARKER EXAM: US GALLBLADDER AND OR BILIARY DUCTS COMPARISON: 07/19/2023 CT abdomen pelvis. FINDINGS: Gallbladder: Sludge/non-shadowing gallstones within the nondistended gallbladder. No wall thickening or pericholecystic fluid. ??Negative sonographic Tello sign. Intrahepatic ducts: Not dilated. Common duct: Not dilated. Aorta: Normal caliber. Procedure Note Delano aSnders M.D. - 08/09/2023 EXAM: US GALLBLADDER AND OR BILIARY DUCTS COMPARISON: 07/19/2023 CT abdomen pelvis. FINDINGS: Gallbladder: Sludge/non-shadowing gallstones within the nondistendedgallbladder. No wall thickening or pericholecystic fluid. Negativesonographic Tello sign. Intrahepatic ducts: Not dilated. Common duct: Not dilated. Aorta: Normal caliber. IMPRESSION: Cholelithiasis without evidence of acute cholecystitis. Jose Cavanaugh APRN, C.N.P. IMG US WI OCEDURES * Interpretation of Outside CT Abdomen and or Pelvis (08/09/2023 2:14 AM GRADE AND CENTER MARKER) Anatomical Region Laterality Modality Abdomen, Pelvis, Abdominal R ST LOS, Abdominal ARZ LOS, Abdominal FLA LOS, Other N/A Computed Tomography Impressions 08/09/2023 5:35 AM GRADE AND CENTER MARKER 1. ??No evidence of cholangitis. 2. There is a new 13 x 20 mm nodule in the right lower lobe (09/04). This lesion has an irregular, ground glass border and contains an air bronchogram. Infection and metastatic disease are in the differential. 3. Interval increased size in multiple partially treated bone metastases. Narrative 08/09/2023 5:35 AM GRADE AND CENTER MARKER EXAM: ??INTERPRETATION OF OUTSIDE CT ABDOMEN AND OR PELVIS COMPARISON: ??05/15/2023 PET/CT Outside CT abdomen pelvis with IV contrast performed 08/08/2023. FINDINGS: There is a new 13 x 20 mm nodule in the right lower lobe (2/). This lesion has an irregular, ground glass [...] mm nodule in the right lower lobe (2/). Thislesion has an irregular, ground glass border and contains an airbronchogram. Infection and metastatic disease are in the differential. Marked interval reduced size of the masses described on the PET CT from05/15/23 as abutting the uterus and cecum. These may represent metastaticdisease to the ovaries - the right ovary contains a dominant cysticstructure (/104). The left ovary is enlarged with a complex multicystic structure, with hyperdense components(HU 38 2/121). Consider pelvic ultrasound for more detailed evaluation ofthe ovaries. There is a 2.7 x 4 cm solid, enhancing ovoid masslike lesion along theleft uterine body which may represent a fibroid as this does not appear tohave increased uptake on PET (/122). Prominent adnexal vasculature bilaterally. Faint layering sludge [...] bonemetastases. Jose Cavanaugh APRN, C.N.P. IMG CT WI OCEDURES * ECG 12 Lead (08/09/2023 12:49 AM GRADE AND CENTER MARKER) Only the most recent of3 resultswithin the time period is included. Ventricular Rate ECG/Min 66 BPM MUSE WI Interval 150 ms MUSE QRSD Interval 86 ms MUSE QT Interval 456 ms MUSE QTC Interval 478 ms MUSE P [place] 52 degrees MUSE R [place] 80 degrees MUSE T Wave [place] 86 degrees MUSE 08/09/2023 12:4 9 AM [employer]ADE AND CENTER MARKER 08/09/2023 12:51 AM GRADE AND CENTER MARKER Impressions MUSE - 08/09/2023 12:51 AM GRADE AND CENTER MARKER Normal sinus rhythm Low anterior forces Nonspecific [...] C.N.P. ECG ORDER DANIEL Performing Organization Address [facility] de Phone Number MUSE NA * Lactate for Sepsis with Reflex, POCT (08/09/2023 12:49 AM GRADE AND CENTER MARKER) Pathologist [facility] [place] Lactate, POCT 1.33 0.50 - 2.20 mmol/L 08/09/2023 1:01 AM GRADE AND CENTER MARKER PCLX Blood (Blood, Venous) 08/09/2023 12:49 AM GRADE AND CENTER MARKER 08/09/2023 12:49 AM GRADE AND CENTER MARKER Jose Cavanaugh APRN, C.N.P. LAB POCT ORDERABLES - DEVICE Performing Organization Address City/[facility] Co de Phone Number POC [facility] [address] [place] [address], [facility] PCLX [facility] POC [address] [place] [address] * (ABNORMAL) Venous Blood Gas and Electrolytes CG8+, POCT (08/09/2023 12:49 AM GRADE AND CENTER MARKER) [facility] Sample Site, POCT Venstick 08/09/2023 1:01 AM GRADE AND CENTER MARKER PCLX Comment: ----ADDITIONAL INFORMATION---- Performed at the Point of Care pH, Venous, POCT, B 7.37 7.32 - 7.43 08/09/2023 1:01 AM GRADE AND CENTER MARKER PCSM Comment: ----ADDITIONAL INFORMATION---- Performed at the Point of Care pCO2, Venous, POCT, B 35(L) 41 - 51 mm Hg 08/09/2023 1:01 AM GRADE AND CENTER MARKER PCSM Comment: ----ADDITIONAL INFORMATION---- Performed at the Point of Care pO2, Venous, POCT, B 36 Not Applicable mm Hg 08/09/2023 1:01 AM GRADE AND CENTER MARKER PCSM Comment: ----ADDITIONAL INFORMATION---- Performed at the Point of Care Base Excess, Venous, POCT, B -5 Not Applicable mmol/L 08/09/2023 1:01 AM GRADE AND CENTER MARKER PCSM Comment: ----ADDITIONAL INFORMATION---- Performed at the Point of Care HCO3, Venous, POCT, B 20 Not Applicable mmol/L 08/09/2023 1:01 AM GRADE AND CENTER MARKER PCSM Comment: ----ADDITIONAL INFORMATION---- Performed at the Point of Care Sodium, POCT, B 136 135 - 145 mmol/L 08/09/2023 1:01 AM GRADE AND CENTER MARKER PCLX Comment: ----ADDITIONAL INFORMATION---- Performed at the Point of Care Potassium, POCT, B 3.3(L) 3.6 - 5.2 mmol/L 08/09/2023 1:01 AM GRADE AND CENTER MARKER PCLX Comment: ----ADDITIONAL INFORMATION---- Performed at the Point of Care Calcium, Ionized, POCT, B 4.60(L) 4.65 - 5.30 mg/dL 08/09/2023 1:01 AM GRADE AND CENTER MARKER PCLX Comment: ----ADDITIONAL INFORMATION---- Performed at the Point of Care Glucose, POCT, B 135 70 - 140 mg/dL 08/09/2023 1:01 AM GRADE AND CENTER MARKER PCLX Comment: ----ADDITIONAL INFORMATION---- Performed at the Point of Care Hematocrit, POCT, B 31.0(L) 35.5 - 44.9 % 08/09/2023 1:01 AM GRADE AND CENTER MARKER PCLX Comment: ----ADDITIONAL INFORMATION---- Performed at the Point of Care Blood (Blood, Venous) 08/09/2023 12:49 AM GRADE AND CENTER MARKER 08/09/2023 12:49 AM GRADE AND CENTER MARKER Jose Cavanaugh APRN, C.N.P. LAB POCT ORDERABLES - DEVICE [facility] [address] [place] [address], [facility] PCLX [facility] POC [address] [place] [address] PCSM [facility] POC [address] [place] [address] * (ABNORMAL) CBC with Differential, Blood (08/09/2023 12:49 AM GRADE AND CENTER MARKER) Only the most recent of4 resultswithin the time period is included. Hemoglobin 10.8(L) 11.6 - 15.0 g/dL 08/09/2023 1:00 AM GRADE AND CENTER MARKER STMA Hematocrit 32.0(L) 35.5 - 44.9 % 08/09/2023 1:00 AM GRADE AND CENTER MARKER STMA Erythrocytes 3.33(L) 3.92 - 5.13 x10(12)/L 08/09/2023 1:00 AM GRADE AND CENTER MARKER STMA MCV 96.1 78.2 - 97.9 fL 08/09/2023 1:00 AM GRADE AND CENTER MARKER STMA RBC Distrib Width 14.1 12.2 - 16.1 % 08/09/2023 1:00 AM GRADE AND CENTER MARKER STMA Platelet Count 226 157 - 371 x10(9)/L 08/09/2023 1:00 AM GRADE AND CENTER MARKER STMA Leukocytes 7.9 3.4 - 9.6 x10(9)/L 08/09/2023 1:00 AM GRADE AND CENTER MARKER STMA Neutrophils 6.54(H) 1.56 - 6.45 x10(9)/L 08/09/2023 1:00 AM GRADE AND CENTER MARKER DHPM Lymphocytes 1.14 0.95 - 3.07 x10(9)/L 08/09/2023 1:00 AM GRADE AND CENTER MARKER STMA Monocytes 0.14(L) 0.26 - 0.81 x10(9)/L 08/09/2023 1:00 AM GRADE AND CENTER MARKER STMA Eosinophils <0.03 0.03 - 0.48 x10(9)/L 08/09/2023 1:00 AM GRADE AND CENTER MARKER STMA Basophils 0.04 0.01 - 0.08 x10(9)/L 08/09/2023 1:00 AM GRADE AND CENTER MARKER STMA Blood (Blood, Venous) 08/09/2023 12:49 AM GRADE AND CENTER MARKER 08/09/2023 12:58 AM GRADE AND CENTER MARKER Jose Cavanaugh APRN, C.N.P. LAB BLOOD ADD-ON Performing Organization Address City/[facility]/ZIP Co de Phone Number [facility] [address] [place] [address], [facility] STMA [facility] [address] [place] [address] * (ABNORMAL) Lipase (08/09/2023 12:49 AM GRADE AND CENTER MARKER) Pathologist [facility] [place] Lipase, S 79(H) 13 - 60 U/L 08/09/2023 1: 51 AM GRADE AND CENTER MARKER DTL Blood (Blood, Venous) 08/09/2023 12:49 AM GRADE AND CENTER MARKER 08/09/2023 1:20 AM GRADE AND CENTER MARKER Jose Cavanaugh APRN, C.N.P. LAB BLOOD ADD-ON [facility] [address] DTL [facility] [address] [place] [address] * (ABNORMAL) Basic Metabolic Panel (08/09/2023 12:49 AM GRADE AND CENTER MARKER) Potassium, P 3.3(L) 3.6 - 5.2 mmol/L 08/09/2023 1:44 AM GRADE AND CENTER MARKER DTL Sodium, P 137 135 - 145 mmol/L 08/09/2023 1:44 AM GRADE AND CENTER MARKER DTL Chloride, P 102 98 - 107 mmol/L 08/09/2023 1:44 AM GRADE AND CENTER MARKER DTL Bicarbonate, P 18(L) 22 - 29 mmol/L 08/09/2023 1:44 AM GRADE AND CENTER MARKER DTL Anion Gap, P 17(H) 7 - 15 08/09/2023 1:44 AM GRADE AND CENTER MARKER DTL BUN (Blood Urea Nitrogen), P 16 6 - 21 mg/dL 08/09/2023 1:44 AM GRADE AND CENTER MARKER DTL Creatinine 0.95 0.59 - 1.04 mg/dL 08/09/2023 1:44 AM GRADE AND CENTER MARKER DTL Estimated GFR (eGFR) 75 >=60 mL/min/BSA 08/09/2023 1:44 AM GRADE AND CENTER MARKER DTL Comment: Estimated GFR calculated using the 2020 CKD_EPI creatinine equation. Calcium, Total, P 8.6 8.6 - 10.0 mg/dL 08/09/2023 1:44 AM GRADE AND CENTER MARKER DTL Glucose, P 138 70 - 140 mg/dL 08/09/2023 1:44 AM GRADE AND CENTER MARKER DTL Blood (Blood, Venous) 08/09/2023 12:49 AM GRADE AND CENTER MARKER 08/09/2023 1:20 AM GRADE AND CENTER MARKER Jose Cavanaugh APRN, C.N.P. LAB BLOOD ADD-ON Performing Organization Address City/State/[facility] Co de Phone Number [facility] [address] [place] [address], [facility] [address] [place] [address] * CT ABDOMEN PELVIS W CON-Outside CT Body (08/08/2023 6:45 PM GRADE AND CENTER MARKER) 08/08/2023 6:44 PM GRADE AND CENTER MARKER Narrative IIMS - 08/08/2023 9:23 PM GRADE AND CENTER MARKER This order has been created and auto-finalized to support the import of outside images. If available, original interpretation can be found on the Media Tab in Chart Review, in Document Viewer, or as an image in QREADS. If a re-interpretation or overread is required please follow defined workflow. ?? Provider Not In System IMG CT PROCEDURES IIMS NA * XR CHEST 1V PORTABLE-Outside Chest Xray (08/08/2023 6:10 PM GRADE AND CENTER MARKER) Only the most recent of2 resultswithin the time period is included. 08/08/2023 6:06 PM GRADE AND CENTER MARKER Narrative IIMS - 08/08/2023 9:19 PM GRADE AND CENTER MARKER This order has been created and auto-finalized to support the import of outside images. If available, original interpretation can be found on the Media Tab in Chart Review, in Document Viewer, or as an image in QREADS. If a re-interpretation or overread is required please follow defined workflow. ?? Provider Not In System IMG DIAGNOSTIC IM AGING PROCEDURES Performing Organization Address [facility] de Phone Number IIMS NA * Dermatopathology (07/17/2023 4:41 PM GRADE AND CENTER MARKER) 07/22/2023 6:51 AM GRADE AND CENTER MARKER PDRM Report electronically signed by Catalina Martell M.D. 07/22/2023 6:51 AM GRADE AND CENTER MARKER PDRM Gross Description Received in formalin labeled with the patient's name, medical record number, and right shoulder-anterio r is a 0.5 cm in diameter whiteskin punch biopsy excised to a depth 0.5 cm. Eccentrically located on the skin surface is a 0.4 x 0.3 cm pale hansen-hansen, pigmented lesionwith well-circumscrib ed borders. ??Specimen is bisected and submitted entirely in cassette A1. ??Grossed by AJD. 07/22/2023 6:51 AM GRADE AND CENTER MARKER PDRM Interpretation FINAL DIAGNOSIS A. ??Right Shoulder - Anterior, Skin punch biopsy: Lentiginous compound nevus COMMENT Clinical note and photos reviewed. Diagnosis was made via digital imaging. A portion of the testing process was performed at [facility] [employer] site [id number]. 07/22/2023 6:51 AM GRADE AND CENTER MARKER PDRM Skin (Right Shoulder - Anterior) 07/17/2023 4:40 PM GRADE AND CENTER MARKER Anh Lee M.D. LAB PATH DERM OR DERABLES Performing Organization Address [facility] Co de Phone Number [facility] [address] [place] [address], [facility] PDRM [address] [facility] [address] [place] [address] * Fluorescein Angiography - OU - Both Eyes (07/17/2023 12:55 PM GRADE AND CENTER MARKER) Narrative OPHTHALMOLOGY IMAGING EXAM - 07/17/2023 7:03 PM GRADE AND CENTER MARKER Right Eye Dye used is fluorescein. Fluorescein dose given is normal. Left Eye Dye used is fluorescein. Fluorescein dose given is normal. Notes Interpretation in note Phi Palm M.D., Ph.D. [facility] PHOTOGRDonnie PEÑA Performing Organization Address [facility] de Phone Number OPHTHALMOLOGY IMAGING EXAM * [employer]-Ophthalmology Image Exam (07/17/2023 12:45 PM GRADE AND CENTER MARKER) Only the most recent of2 resultswithin the time period is included. 07/17/2023 12:4 5 PM GRADE AND CENTER MARKER Narrative IIMS - 07/17/2023 1:03 PM GRADE AND CENTER MARKER This order has been created and auto-finalized to support the import of images acquired without order. The clinical documentation to support these images can be found on the encounter that produced images. Provider Not In System IMG NON RAD IMAGI NG PROCEDURES Performing Organization Address [facility] de Phone Number IIMS NA * Fundus Photos - OU - Both Eyes (07/17/2023 11:52 AM GRADE AND CENTER MARKER) Narrative OPHTHALMOLOGY IMAGING EXAM - 07/17/2023 7:03 PM GRADE AND CENTER MARKER Right Eye Field of view is standard view. Fundus photo type obtained is Color. Left Eye Field of view is standard view. Fundus photo type obtained is Color. Notes Interpretation in note Phi Palm M.D., Ph.D. [facility] PHOTOGRA MARIANA Performing Organization Address [facility] de Phone Number OPHTHALMOLOGY IMAGING EXAM * Shoulder Dermoscopy-Dermatology Image Exam (07/17/2023 12:10 AM GRADE AND CENTER MARKER) Only the most recent of2 resultswithin the time period is included. Narrative IIPR - 07/18/2023 7:21 AM GRADE AND CENTER MARKER This order has been created and auto-finalized to support the import of images acquired without order. The clinical documentation to support these images can be found on the encounter that produced images. Provider Not In System IMG NON RAD IMAGI NG PROCEDURES Performing Organization Address City/[facility]/ZIP Co de Phone Number [facility] NA * Thyroid Function [place] (07/04/2023 9:49 AM GRADE AND CENTER MARKER) Only the most recent of3 resultswithin the time period is included. TSH, Sensitive 2.3 0.3 - 4.2 mIU/L 07/04/2023 11:05 AM GRADE AND CENTER MARKER DTL Blood (Blood, Venous) 07/04/2023 9:49 AM GRADE AND CENTER MARKER 07/04/2023 10:29 AM GRADE AND CENTER MARKER Pérez Zuniga M.D., Ph.D. LAB BLOO D ADD-ON Performing Organization Address City/[facility] [place] [address], [facility] [place] [address] * (ABNORMAL) Comprehensive Metabolic Panel (07/04/2023 9:49 AM GRADE AND CENTER MARKER) Only the most recent of3 resultswithin the time period is included. Potassium, S 4.7 3.6 - 5.2 mmol/L 07/04/2023 11:05 AM GRADE AND CENTER MARKER DTL Sodium, S 137 135 - 145 mmol/L 07/04/2023 11:05 AM GRADE AND CENTER MARKER DTL Chloride, S 103 98 - 107 mmol/L 07/04/2023 11:05 AM GRADE AND CENTER MARKER DTL Bicarbonate, S 24 22 - 29 mmol/L 07/04/2023 11:05 AM GRADE AND CENTER MARKER DTL Anion Gap 10 7 - 15 07/04/2023 11:05 AM GRADE AND CENTER MARKER DTL BUN (Blood Urea Nitrogen), S 22(H) 6 - 21 mg/dL 07/04/2023 11:05 AM GRADE AND CENTER MARKER DTL Creatinine 0.90 0.59 - 1.04 mg/dL 07/04/2023 11:05 AM GRADE AND CENTER MARKER DTL Estimated GFR (eGFR) 80 >=60 mL/min/BS A 07/04/2023 11:05 AM GRADE AND CENTER MARKER DTL Comment: Estimated GFR calculated using the 2020 CKD_EPI creatinine equation. Calcium, Total, S 9.9 8.6 - 10.0 mg/dL 07/04/2023 11:05 AM GRADE AND CENTER MARKER DTL Glucose, S 98 70 - 140 mg/dL 07/04/2023 11:05 AM GRADE AND CENTER MARKER DTL Protein, Total, S 7.7 6.3 - 7.9 g/dL 07/04/2023 11:05 AM GRADE AND CENTER MARKER DTL Albumin, S 4.3 3.5 - 5.0 g/dL 07/04/2023 11:05 AM GRADE AND CENTER MARKER DTL Aspartate Aminotransferase (AST), S 26 8 - 43 U/L 07/04/2023 11:05 AM GRADE AND CENTER MARKER DTL Alkaline Phosphatase, S 229(H) 35 - 104 U/L 07/04/2023 11:05 AM GRADE AND CENTER MARKER DTL Alanine Aminotransferase (ALT), S 24 7 - 45 U/L 07/04/2023 11:05 AM GRADE AND CENTER MARKER DTL Bilirubin, Total, S 0.2 0.0 - 1.2 mg/dL 07/04/2023 11:05 AM GRADE AND CENTER MARKER DTL Blood (Blood, Venous) 07/04/2023 9:49 AM GRADE AND CENTER MARKER 07/04/2023 10:29 AM GRADE AND CENTER MARKER Pérez Zuniga M.D., Ph.D. LAB BLOO D ADD-ON [facility] [address] [place] [address], [facility] [address] [place] [address] * (TTE) 2D ECHO DOPPLER COLOR (06/20/2023 1:28 PM GRADE AND CENTER MARKER) Ejection Fraction 65 MC CV EIMS Mid-Ascending [...] Laterality Modality Other 06/20/2023 12:3 4 PM GRADE AND CENTER MARKER Impressions 06/20/2023 1:42 PM GRADE AND CENTER MARKER There are no previous [facility] echocardiograms available for comparison. LEFT VENTRICLE:Normal left [...] the Order-Level Documents. Narrative 06/20/2023 1:42 PM GRADE AND CENTER MARKER For the complete report, see the Order-Level [...] pericardial effusion. Findings There are no previous [facility] echocardiograms available forcomparison. LEFT VENTRICLE:Normal left ventricular [...] (with Reflex Antibody ID) (06/20/2023 12:01 PM GRADE AND CENTER MARKER) ABORh O Neg Not applicable 06/20/2023 1:48 PM GRADE AND CENTER MARKER ETRM Antibody Screen Negative Negative 06/20/2023 2:00 PM GRADE AND CENTER MARKER ETRM Type & Screen Expiration 06/23/2023 23:59 06/20/2023 1:48 PM GRADE AND CENTER MARKER ETRM Testing Location [place] DEFAULT 06/20/2023 12:53 PM GRADE AND CENTER MARKER ETRM Blood (Blood, Venous) 06/20/2023 12:01 PM GRADE AND CENTER MARKER 06/20/2023 12:53 PM GRADE AND CENTER MARKER Préez Zuniga M.D., Ph.D. LAB BLOO D BANK TEST ORDERABLES [facility] [address] [place] [address], [place] ETRM [facility] [address] [place] [address] * Interpretation of Outside NM PET Scan (06/04/2023 7:56 AM GRADE AND CENTER MARKER) Anatomical Region Laterality Modality Nuclear Medicine PET RST LOS , Nuclear Medicine ARZ LOS, Nuclear Medicine FLA LOS, Nuclear Medicine, Other, Neuroradiology ARZ LOS, Neuroradiology FLA LOS, Neuroradiology RST LOS, Body N/A Nuclear Medicine 06/10/2023 8:28 AM GRADE AND CENTER MARKER Impressions 06/10/2023 10:24 AM GRADE AND CENTER MARKER 1. Large intensely hypermetabolic mixed solid and [...] of the report. Narrative 06/10/2023 10:24 AM GRADE AND CENTER MARKER EXAM: ??INTERPRETATION OF OUTSIDE NM PET SCAN [...] of Outside MR Extremity (06/04/2023 7:54 AM GRADE AND CENTER MARKER) Anatomical Region Laterality Modality Musculoskeletal RST LOS, Mus culoskeletal ARZ LOS, Muskuloskeletal FLA LOS, Musculoskeletal, Other N/A Magnet ic Resonance 06/04/2023 11:3 3 AM GRADE AND CENTER MARKER Impressions 06/04/2023 11:45 AM GRADE AND CENTER MARKER There are several 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 The largest is seen proximally extending off of the proximal uceky-cy-mapw. This involves the intertrochanteric left femur extending [...] diaphysis, which extends off of the proximal ktunc-rx-fnjv (series 3 and 4 image 15). The lesions right around the knee were not present on the MRI from October 2014 and correlate with areas of hypermetabolic activity on the recent PET CT. Findings are compatible with recent biopsy results of metastatic melanoma. Large vvvej-xv-smvu coronal and axial images include the right femur, which demonstrates numerous large intramedullary lesions throughout the right femoral diaphysis as well as the proximal right tibial diaphysis, as well. No definite discrete soft tissue masses within either thigh. Narrative 06/04/2023 11:45 AM GRADE AND CENTER MARKER EXAM: ??INTERPRETATION OF OUTSIDE MR LEFT FEMUR [...] is seen proximally extending off of the lhsvstcuagjpy-iy-dssf. This involves the intertrochanteric left femur extendingdistally [...] tibial diaphysis, which extends offof the proximal fkigx-xk-qatu (series 3 and 4 image 15). The lesions right around the knee were not present on the MRIfrom October 2014 and correlate with areas of hypermetabolic activity on therecent PET CT. Findings are compatible with recent biopsy results ofmetastatic melanoma. Large hxttb-mp-xtmt coronal and axial images include the right femur, whichdemonstrates numerous large intramedullary lesions throughout the rightfemoral diaphysis as well as the proximal right tibial diaphysis, as well.No definite discrete soft tissue masses within either thigh. Pérez Zuniga M.D., Ph.D. IMG MRI PROCEDURES * MR Brain without and with IV Contrast (05/29/2023 7:09 PM GRADE AND CENTER MARKER) Anatomical Region Laterality Modality Head, Brain, Neuroradiology RST LOS, Neuroradiology ARZ LOS, Neuroradiology FLA LOS N/A Magnetic Resonance 05/30/2023 10:1 9 AM GRADE AND CENTER MARKER Impressions 05/30/2023 10:38 AM GRADE AND CENTER MARKER Multifocal subcentimeter intracranial metastases. No significant associated mass effect or hydrocephalus. Narrative 05/30/2023 10:38 AM GRADE AND CENTER MARKER EXAM: MR BRAIN WITHOUT AND WITH IV [...] venous anomaly. Procedure Note Antonio Wood M.D., [facility] - 05/30/2023 EXAM: [...] T4 (Thyroxine), Free, Serum (05/29/2023 5:35 PM GRADE AND CENTER MARKER) T4 (Thyroxine), Free, S 1.0 0.9 - 1.7 ng/dL 05/29/2023 7:06 PM GRADE AND CENTER MARKER DTL Blood 05/29/2023 5:35 PM GRADE AND CENTER MARKER 05/29/2023 6:09 PM GRADE AND CENTER MARKER Narrative Authorizing Provider Result Krish Mejia P.A.-C., M.S. LAB BLOO D ADD-ON [facility] [address] [place] [address], [facility] [address] [place] [address] * Thyroperoxidase (TPO) Antibodies (05/29/2023 5:35 PM GRADE AND CENTER MARKER) Thyroperoxidase Ab, S 15.1 <34.0 IU/mL 05/29/2023 7:06 PM GRADE AND CENTER MARKER DTL Blood 05/29/2023 5:35 PM GRADE AND CENTER MARKER 05/29/2023 6:09 PM GRADE AND CENTER MARKER Naida Mejia P.A.-C., M.S. LAB BLOO D ADD-ON Performing Organization Address [facility] [place] [address] * (ABNORMAL) LD (Lactate Dehydrogenase) (05/29/2023 5:35 PM GRADE AND CENTER MARKER) Lactate Dehydrogenase (LD), S 439(H) 122 - 222 U/L 05/29/2023 6:46 PM GRADE AND CENTER MARKER DTL Blood (Blood, Venous) 05/29/2023 5:35 PM GRADE AND CENTER MARKER 05/29/2023 6:09 PM GRADE AND CENTER MARKER Naida Mejia P.A.-C., M.S. LAB BLOO D NON ADD-ON Performing Organization Address [facility] [place] [address] * PET [facility]_PET_CAP_C (Adult)-Outside NM Pet (05/15/2023 11:00 AM CDT) Narrative IIPR - 05/27/2023 12:26 PM GRADE AND CENTER MARKER This order has been created and auto-finalized to support the import of outside images. If available, original interpretation can be found on the Media Tab in Chart Review, in Document Viewer, or as an image in QREADS. If a re-interpretation or overread is required please follow defined workflow. ?? 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 06/24/2023 1:13 PM GRADE AND CENTER MARKER DTL Additional Information CLINICAL TRIALS Possible clinical trials of benefit for this patient can be found at the following sites: 1) ClinicalTrials.gov: www.clinicaltrials. gov/ct2/search/adva nced 2) [facility]: www.[facility]/resear ch/clinical-trials/ 3) National [employer] [place]: www.cancer.gov/clin icaltrials/search REFERENCE TRANSCRIPT Sequence variant nomenclature is based on the following RefSeq accession number (build GRCh37 (hg19)):BRAF [id number]. 06/24/2023 1:13 PM GRADE AND CENTER MARKER DTL Specimen Tissue, Tumor 06/24/2023 1:13 PM GRADE AND CENTER MARKER DTL Tissue ID [id number] 06/24/2023 1:13 PM GRADE AND CENTER MARKER DTL Method Microscopic examination is performed by [...] and additional information on this test, see [email or web address]. Unocoin (Test ID BRFKT). 06/24/2023 1:13 PM GRADE AND CENTER MARKER DTL Disclaimer This test cannot differentiate between [...] of heterozygosity) and sequencing artifact/misalignme nt [PMID: 17411333, PMID: [id number]]. Rare polymorphisms may be present that could [...] and its performance characteristics determined by [facility] in a manner consistent with CLIA requirements. This test has not been cleared or approved by the U.S. Food and Drug Administration. 06/24/2023 1:13 PM GRADE AND CENTER MARKER DTL Released By Lexy Lang M.D. 06/24/2023 1:13 PM GRADE AND CENTER MARKER DTL Interpretation BRAF c.1799T>A (p.V600E) (Exon 15) BRAF encodes the signaling protein Braf, which is downstream of Eduardo and activates the MAPK pathway. Braf signaling is critically involved in the processes of cell division and differentiation. BRAF activating mutations occur predominantly at a single location (V600E). BRAF activating mutations or amplification have been reported to result in uncontrolled cell growth and tumorigenesis [PMID:[id number], PMID:[id number]]. Clinically approved targeted therapy is available for patients with unresectable or metastatic solid tumors with a BRAF V600E mutation [fda.gov/drugs]. 06/24/2023 1:13 PM GRADE AND CENTER MARKER DTL Tissue (Bone) 05/13/2023 8:2 7 AM CDT 06/16/2023 1:57 PM GRADE AND CENTER MARKER Naida Mejia P.A.-C., M.S. LAB GENE TIC TESTING [facility] [employer] - [facility] [address] [place] [address], [facility] DTL [address] [place] [address] * Pathology Review of Outside Material (05/13/2023 1:26 AM CDT) 06/10/2023 3:51 PM GRADE AND CENTER MARKER DTL Participated in the Interpretation Yann Dixon M.D.-Pathology Fellow 06/10/2023 3:51 PM GRADE AND CENTER MARKER DTL Report electronically signed by Jose Willis M.D. I verify that I have examined all relevant slides/materials for the specimen(s) and rendered or confirmed the diagnosis. 06/10/2023 3:51 PM GRADE AND CENTER MARKER DTL Material Received A. [id number]: Left femur ? 22 stained slides, 20 unstained slides 06/10/2023 3:51 PM GRADE AND CENTER MARKER DTL Addendum Genetic testing for BRAF/KIT Mutation Analysis, Tumor (BRFKT) ??will be performed and resulted in the patient's medical record. Signed by Cl Edwards M.D. 06/14/2023 10:19 AM 06/14/2023 10:19 AM GRADE AND CENTER MARKER DTL Comment:REVISED RESULTS Interpretation FINAL DIAGNOSIS Left femur mass, biopsy ([id number]; 05/13/2023): Metastatic melanoma, diffusely positive for BRAF [...] hesitate to reach me by calling [facility] [employer] at [phone]. 06/14/2023 10:19 AM GRADE AND CENTER MARKER DTL Varies 05/13/2023 1:26 AM CDT 06/05/2023 7:18 PM GRADE AND CENTER MARKER Naida Mejia P.A.-C. MAnkit LAB SURG PATH ORDERABLES [facility] - [facility] [address] [place] [address], [facility] DTL [address] [place] [address] from Last 3 Months Additional Health Concerns Infection Onset Date Last Indicated Protective Environment 06/04/2023 3 Advance Directives For more information, please contact: [phone] Latest Code Status on File Code Status Date Activated Date Inactivated Comments Full Code 08/09/2023 5:52 AM 08/09/2023 5:43 PM Question Answer Comments Full Code: Discussed Care Teams Pollution Control Chemist Relationship Specialty Start Date End Date Elsewhere, Pcp PCP - General Family Medicine 06/17/23
--- OUTSIDE RECORDS SUMMARY | 2023-08-09 19:00 | XMS_ITS | Encounter Summary ---
Author Name Unknown Organization [facility] Address [address] [place] [address] Care Team Providers Care Campaign Analyst Name Role Phone Elsewhere, Pcp Primary Care Provider Unavailabl e Encounter Details Date Type Department Care Team (Late st Contact Info) Description 08/09/2023 Clinical Communication Department of Oncology in [place], [place] [address] [place] [phone] Anahy Amezcua, R.N., O.C.N. [address] [place] [phone] Social History Tobacco Use Types Packs/Day Years Used Date Smoking Tobacco: Never Passive Smoke Exposure: Never Smokeless Tobacco: Never Alcohol Use Standard Drinks/Week Comments Not Currently 6 (1 standard drink = 0.6 oz pur e alcohol) Occasional C Utilities Answer Date Recorded In the past 12 months has [employer], gas, oil, or water [employer] threatened to shut off services in your [...] your living situation today? I have a [facility] place to live 07/10/2023 Sex and Gender Information Value Date Recorded Sex Assigned at Female 05/31/2023 8:26 AM ELECTRONICS INSTALLER Gender Identity Female 05/31/2023 8:26 AM ELECTRONICS INSTALLER Sexual Orientation Straight 05/31/2023 8: 26 AM ELECTRONICS INSTALLER documented as of this encounter Plan of Treatment Upcoming Encounters Date Type Department Care Team (Late st Contact Info) Description 08/19/2023 6:40 AM ELECTRONICS INSTALLER Appointment Department of Laboratory Medicine and Pathology, [facility], in [place], [place] 200 [place] [phone] Pérez Zuniga M.D., Ph.D. [address] [place] [phone] 08/19/2023 7:00 AM ELECTRONICS INSTALLER Ancillary Procedure Department of Cardiovascular Medicine in [place], [place] 200 [place] [phone] Pérez Zuniga M.D., Ph.D. [address] [place] [phone] 08/19/2023 9:00 AM ELECTRONICS INSTALLER Appointment Department of Radiology, [facility], in [place], [place] [address] [place] [phone] Pérez Zuniga M.D., Ph.D. [address] [place] [phone] 08/19/2023 3:40 PM ELECTRONICS INSTALLER Office Visit Department of Oncology in [place], [place] [address] [place] [phone] Zhane Granados APRN, C.N.P. [address] [place] [phone] 08/21/2023 10:15 AM ELECTRONICS INSTALLER Clinical Support Department of Palliative Care in [place], [place] [address] [place] [phone] Serenity Kelsey, P.A.-C. [address] [place] [phone] Meka Rinaldi D.N.P., R.N., [facility] documented as of this encounter Visit Diagnoses Diagnosis Melanoma Trunk (HCC)- Primary Other Detention Current Drug Therapy documented in this encounter Additional Health Concerns Infection Onset Date Last Indicated Resolved Time Protective Environment 06/04/2023 06/04/2023 documented as of this encounter Care Teams Campaign Analyst Relationship Specialty Start Date End Date Elsewhere, Pcp PCP - General Family Medicine 06/17/23 documented as of this encounter
--- OUTSIDE RECORDS SUMMARY | 2023-08-09 19:01 | XMS_ITS | Encounter Summary ---
Author Name Unknown Organization [facility] Address [address] [place] [address] Care Team Providers Care Utility Arborist Name Role Phone Elsewhere, Pcp Primary Care Provider Unavailabl e Reason for Referral * Outpatient (Routine) - Authorized Specialty Diagnoses / Procedures Referred By Contac t Referred To Contact Palliative Medicine Diagnoses Palliative Care Serenity Kelsey P.A.-C. [address] [place] [phone] [facility] Referral ID Status Reason Start Date Expiration Date V isits Requested Visits Authorized [id number] Authorized 07/26/2023 07/25/2026 1 1 Scheduling Instructions Please schedule for 08/21 at 1015 via video. SURE SEALER AND TESTER Reason for Visit * Outpatient (Routine) - Closed Specialty Diagnoses / Procedures Referred By Contac t Referred To Contact Palliative Medicine Diagnoses Palliative Care Marija Olivas, GAIL, C.N.P., M.S.N. [address] [place] [phone] [facility] Referral ID Status Reason Start Date Expiration Date Visits Re quested Visits Authorized [id number] Closed 07/16/2023 07/15/2026 1 1 Encounter Details Date Type Department Care Team (Late st Contact Info) Description 07/26/2023 1:15 PM PRESSURE SEALER AND TESTER Telemedicine Department of Palliative Care in [place], [place] [address] [place] [phone] Marija Olivas APRN, C.N.P., M.S.N. [address] [place] [phone] Meka Rinaldi D.N.P., R.N., [facility] Palliative Care Social History Tobacco Use Types Packs/Day Years Used Date Smoking Tobacco: Never Passive Smoke Exposure: Never Smokeless Tobacco: Never Alcohol Use Standard Drinks/Week Comments Not Currently 6 (1 standard drink = 0.6 oz pur e alcohol) Occasional [facility] Utilities Answer Date Recorded In the past 12 months has [employer], gas, oil, or water [employer] threatened to shut off services in your [...] your living situation today? 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 She lives in [place] with her , Francis, and their 3 kids (a daughter who is a senior in highschool, daughterwho is a freshman in highschool and a 6th grade son), and dog. 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 [facility] plans to work on the following goals prior to our next meeting: Continue morning gratitude practice (setting an alarm just prior to morning chemo medications to create a habit) Complete the entirety of course modules-[facility] is looking forward to modules 2 and 4 Re-engage in journaling, a previously meaningful and uplifting activity in Tony's life. Next Resilient Living Meetin/7 at 10:15 via video Meka Rinaldi RNathletic equipment manager Department of Palliative Medicine [facility] I spent 60 minutes face to face and non-face to face caring for the patient today. SURE SEALER AND TESTER documented in this encounter Plan of Treatment Upcoming Encounters Date Type Department Care Team (Late st Contact Info) Description 08/19/2023 6:40 AM PRESSURE SEALER AND TESTER Appointment Department of Laboratory Medicine and Pathology, [facility], in [place], [place] [address] [place] [phone] Pérez Zuniga M.D., Ph.D. [address] [place] [phone] 08/19/2023 7:00 AM PRESSURE SEALER AND TESTER Ancillary Procedure Department of Cardiovascular Medicine in [address] [phone] Pérez Zuniga M.D., Ph.D. [address] [place] [phone] 08/19/2023 9:00 AM PRESSURE SEALER AND TESTER Appointment Department of Radiology, [facility], in [address] [phone] Pérez Zuniga M.D., Ph.D. [address] [place] [phone] 08/19/2023 3:40 PM PRESSURE SEALER AND TESTER Office Visit Department of Oncology in [address] [phone] Zhane Granados, TOP STEEP TENDER, C.N.P. [address] [place] [phone] 08/21/2023 10:15 AM PRESSURE SEALER AND TESTER Clinical Support Department of Palliative Care in [address] [phone] Serenity Kelsey, P.A.-C. [address] [place] [phone] Meka Rinaldi D.N.P., R.N., [facility] Scheduled Referrals Name Type Priority Associated Diagnoses Order Schedule Palliative Care nurse therapy visit (clinic) Outpatient Referral Routine Palliative Care Expected: 08/21/2023, Expires: 10/24/2024 documented as of this encounter Visit Diagnoses Diagnosis Palliative Care documented in this encounter Additional Health Concerns Infection Onset Date Last Indicated Resolved Time Protective Environment 06/04/2023 06/04/2023 documented as of this encounter Care Teams Utility Arborist Relationship Specialty Start Date End Date Elsewhere, Pcp PCP - General Family Medicine 06/17/23 documented as of this encounter
--- OUTSIDE RECORDS SUMMARY | 2023-08-09 19:01 | XMS_ITS | Encounter Summary ---
Author Name Unknown Organization [facility] Address [address] [place] [address] Care Team Providers Care Margin Trimmer Name Role Phone Elsewhere, Pcp Primary Care Provider Unavailabl e Encounter Details Date Type Department Care Team (Latest Contact Info) Description 08/08/2023 Intake [facility] Social History Tobacco Use Types Packs/Day [...] your living situation today? I have a [facility] place to live 07/10/2023 Sex and Gender Information Value Date Recorded Sex Assigned at Female 05/31/2023 8:26 AM MOTOR COACH OPERATOR Gender Identity Female 05/31/2023 8:26 AM MOTOR COACH OPERATOR Sexual Orientation Straight 05/31/2023 8: 26 AM MOTOR COACH OPERATOR documented as of this encounter Plan of Treatment Upcoming Encounters Date Type Department Care Team (Late st Contact Info) Description 08/19/2023 6:40 AM MOTOR COACH OPERATOR Appointment Department of Laboratory Medicine and Pathology, [facility] in [place], [place] [address] [place] [phone] Pérez Zuniga M.D., Ph.D. [address] [place] [phone] 08/19/2023 7:00 AM MOTOR COACH OPERATOR Ancillary Procedure Department of Cardiovascular Medicine in [place], [place] [address] [place] [address] Pérez Zuniga M.D., Ph.D. [address] [place] [phone] 08/19/2023 9:00 AM MOTOR COACH OPERATOR Appointment Department of Radiology, [facility] in [place], [place] [address] [place] [address] Pérez Zuniga M.D., Ph.D. [address] [place] [phone] 08/19/2023 3:40 PM MOTOR COACH OPERATOR Office Visit Department of Oncology in [place], [place] [address] [place] [phone] Zhane Granados APRN, C.N.P. [address] [place] [phone] 08/21/2023 10:15 AM MOTOR COACH OPERATOR Clinical Support Department of Palliative Care in [place], [place] [address] [place] [phone] Serenity Kelsey, P.A.-C. [address] [place] [phone] Meka Rinaldi D.N.P., R.N., [facility] documented as of this encounter Visit Diagnoses Not on filedocumented in this encounter Additional Health Concerns Infection Onset Date Last Indicated Resolved Time Protective Environment 06/04/2023 06/04/2023 documented as of this encounter Care Teams Margin Trimmer Relationship Specialty Start Date End Date Elsewhere, Pcp PCP - General Family Medicine 06/17/23 documented as of this encounter
--- OUTSIDE RECORDS SUMMARY | 2023-08-09 19:01 | XMS_ITS | Encounter Summary ---
Author Name Unknown Organization [facility] Address [address] [place] [address] Care Team Providers Care Field Investigator Name Role Phone Elsewhere, Pcp Primary Care [...] your living situation today? I have a [facility] place to live 07/10/2023 Sex and Gender Information Value Date Recorded Sex Assigned at Female 05/31/2023 8:26 AM PIPE FITTER MARINE Gender Identity Female 05/31/2023 8:26 AM PIPE FITTER MARINE Sexual Orientation Straight 05/31/2023 8: 26 AM PIPE FITTER MARINE documented as of this encounter Plan of Treatment Upcoming Encounters Date Type Department Care Team (Late st Contact Info) Description 08/19/2023 6:40 AM PIPE FITTER MARINE Appointment Department of Laboratory Medicine and Pathology, [facility] in [place], [place] [address] [place] [phone] Pérez Zuniga M.D., Ph.D. [address] [place] [phone] 08/19/2023 7:00 AM PIPE FITTER MARINE Ancillary Procedure Department of Cardiovascular Medicine in [place], [place] [address] [place] [phone] éPrez Zuniga M.D., Ph.D. [address] [place] [phone] 08/19/2023 9:00 AM PIPE FITTER MARINE Appointment Department of Radiology, [facility] in [place], [place] [address] [place] [phone] Pérez Zuniga M.D., Ph.D. [address] [place] [phone] 08/19/2023 3:40 PM PIPE FITTER MARINE Office Visit Department of Oncology in [place], [place] [address] [place] [phone] Zhane Granados APRN, C.N.P. [address] [place] [phone] 08/21/2023 10:15 AM PIPE FITTER MARINE Clinical Support Department of Palliative Care in [place], [place] [address] [place] [phone] Serenity Kelsey P.A.-Harsha. [address] [place] [phone] Meka Rinaldi D.N.P., R.N., [facility] documented as of this encounter Procedures Procedure Name Priority Date/Time Associated Diagnosis Comments OPHTHALMOLOGY IMAGE EXAM Routine 07/17/2023 12:00 AM PIPE FITTER MARINE documented in this encounter Results * Eyes Color-Ophthalmology Image Exam (07/17/2023 12:00 AM PIPE FITTER MARINE) Narrative IIMS - 07/17/2023 11:51 AM PIPE FITTER MARINE This order has been created and auto-finalized to support the import of images acquired without order. The clinical documentation to support these images can be found on the encounter that produced images. Provider Not In System IMG NON RAD IMAGI NG PROCEDURES IIWY NA documented in this encounter Visit Diagnoses Not on filedocumented in this encounter Additional Health Concerns Infection Onset Date Last Indicated Resolved Time Protective Environment 06/04/2023 06/04/2023 documented as of this encounter Care Teams Field Investigator Relationship Specialty Start Date End Date Elsewhere, Pcp PCP - General Family Medicine 06/17/23 documented as of this encounter
--- OUTSIDE RECORDS SUMMARY | 2023-08-09 19:01 | XMS_ITS | Encounter Summary ---
Author Name Unknown Organization [facility] Address [address] [place] [address] Care Team Providers Care Pigs Feet Cleaner Name Role Phone Elsewhere, Pcp Primary Care Provider Unavailabl e Encounter Details Date Type Department Care Team (Late st Contact Info) Description 07/17/2023 12:10 AM COSMETIC CONSULTANT Ancillary Procedure Department of Dermatology Social History Tobacco Use Types Packs/Day Years Used Date Smoking Tobacco: Never Passive Smoke Exposure: Never Smokeless Tobacco: Never Alcohol Use Standard Drinks/Week Comments Not Currently 6 (1 standard drink = 0.6 oz pur e alcohol) Occasional [facility] Utilities Answer Date Recorded In the past 12 months has [employer], gas, oil, or water company threatened [...] your living situation today? I have a [facility] place to live 07/10/2023 Sex and Gender Information Value Date Recorded Sex Assigned at Female 05/31/2023 8:26 AM COSMETIC CONSULTANT Gender Identity Female 05/31/2023 8:26 AM COSMETIC CONSULTANT Sexual Orientation Straight 05/31/2023 8: 26 AM COSMETIC CONSULTANT documented as of this encounter Plan of Treatment Upcoming Encounters Date Type Department Care Team (Late st Contact Info) Description 08/19/2023 6:40 AM COSMETIC CONSULTANT Appointment Department of Laboratory Medicine and Pathology, [place], [place] [address] [place] [phone] Pérez Zuniga M.D., Ph.D. [address] [place] [phone] 08/19/2023 7:00 AM COSMETIC CONSULTANT Ancillary Procedure Department of Cardiovascular Medicine in [place], [place] [address] [place] [phone] Pérez Zuniga M.D., Ph.D. [address] [place] [phone] 08/19/2023 9:00 AM COSMETIC CONSULTANT Appointment Department of Radiology, [facility] in [place], [place] [address] [place] [address] Pérez Zuniga M.D., Ph.D. [address] [place] [phone] 08/19/2023 3:40 PM COSMETIC CONSULTANT Office Visit Department of Oncology in [place], [place] [address] [place] [address] Zhane Granados, GAIL, C.N.P. [address] [place] [phone] 08/21/2023 10:15 AM COSMETIC CONSULTANT Clinical Support Department of Palliative Care in [place], [place] [address] [place] [phone] Serenity Kelsey P.A.-C. [address] [place] [phone] Meka Rinaldi D.N.P., R.N., [facility] documented as of this encounter Procedures Procedure Name Priority Date/Time Associated Diagnosis Comments DERMATOLOGY IMAGE EXAM Routine 07/17/2023 12:10 AM COSMETIC CONSULTANT documented in this encounter Results * Shoulder Dermoscopy-Dermatology Image Exam (07/17/2023 12:10 AM COSMETIC CONSULTANT) Narrative [facility]IM[facility] - 07/18/2023 7:21 AM COSMETIC CONSULTANT This order has been created and auto-finalized to support the import of images acquired without order. The clinical documentation to support these images can be found on the encounter that produced images. Provider Not In System IMG NON RAD IMAGI NG PROCEDURES IITX NA documented in this encounter Visit Diagnoses Not on filedocumented in this encounter Additional Health Concerns Infection Onset Date Last Indicated Resolved Time Protective Environment 06/04/2023 06/04/2023 documented as of this encounter Care Teams Pigs Feet Cleaner Relationship Specialty Start Date End Date Elsewhere, Pcp PCP - General Family Medicine 06/17/23 documented as of this encounter
--- OUTSIDE RECORDS SUMMARY | 2023-08-09 19:01 | XMS_ITS | Encounter Summary ---
Author Name Unknown Organization [facility] Address [address] [place] [address] Care Team Providers Care Customs Broker Name Role Phone Elsewhere, Pcp Primary Care Provider Unavailabl e Reason for Visit * Outpatient (Routine) - Closed Specialty Diagnoses / Procedures Referred By Mikki feliciano Referred To Contact Ophthalmology Phi Palm M.D., Ph.D. [address] [place] [address] [facility] Referral ID Status Reason Start Date Expiration Date Visits Re quested Visits Authorized [id number] Closed 07/05/2023 07/04/2026 1 1 Encounter Details Date Type Department Care Team (Latest Contact Info) Description 07/17/2023 11:45 AM SPRING ASSEMBLER SUPERVISOR Office Visit Department of Ophthalmology in [place], [place] [address] [place] [phone] Wolfgang Larose M.D. [address] [place] [phone] Hemorrhage Retinal Bilateral (Primary Dx); Melanoma Trunk (HCC) Social History Tobacco Use Types Packs/Day Years Used Date Smoking Tobacco: Never Passive Smoke Exposure: Never Smokeless Tobacco: Never Alcohol Use Standard Drinks/Week Comments Not Currently 6 (1 standard drink = 0.6 oz pur e alcohol) Occasional [facility] Utilities Answer Date Recorded In the past [...] your living situation today? I have a [facility] place to live 07/10/2023 Sex and Gender Information Value Date Recorded Sex Assigned at Female 05/31/2023 8:26 AM SPRING ASSEMBLER SUPERVISOR Gender Identity Female 05/31/2023 8:26 AM SPRING ASSEMBLER SUPERVISOR Sexual Orientation Straight 05/31/2023 8: 26 AM SPRING ASSEMBLER SUPERVISOR documented as of this encounter Progress [...] 1 mg BID. Discussed with Dr. Ingram NG ASSEMBLER SUPERVISOR documented in this encounter Plan of Treatment Upcoming Encounters Date Type Department Care Team (Late st Contact Info) Description 08/19/2023 6:40 AM SPRING ASSEMBLER SUPERVISOR Appointment Department of Laboratory Medicine and Pathology, [facility] in [address] [phone] Pérez Zuniga M.D., Ph.D. [address] [place] [phone] 08/19/2023 7:00 AM SPRING ASSEMBLER SUPERVISOR Ancillary Procedure Department of Cardiovascular Medicine in [address] [phone] Pérez Zuniga M.D., Ph.D. [address] [place] [phone] 08/19/2023 9:00 AM SPRING ASSEMBLER SUPERVISOR Appointment Department of Radiology, [facility] in [address] [phone] Pérez Zuniga M.D., Ph.D. [address] [place] [phone] 08/19/2023 3:40 PM SPRING ASSEMBLER SUPERVISOR Office Visit Department of Oncology in [address] [phone] Zhane Granados APRN, C.N.P. [address] [place] [phone] 08/21/2023 10:15 AM SPRING ASSEMBLER SUPERVISOR Clinical Support Department of Palliative Care in [place], [place] [address] [place] [phone] Serenity Kelsey P.A.-C. [address] [place] [address] Meka Rinaldi D.N.P., R.N., [facility] documented as of this encounter Visit Diagnoses Diagnosis Hemorrhage Retinal Bilateral- Primary Melanoma Trunk (HCC) documented in this encounter Additional Health Concerns Infection Onset Date Last Indicated Resolved Time Protective Environment 06/04/2023 06/04/2023 documented as of this encounter Care Teams Customs Broker Relationship Specialty Start Date End Date Elsewhere, Pcp PCP - General Family Medicine 06/17/23 documented as of this encounter
--- OUTSIDE RECORDS SUMMARY | 2023-08-09 19:01 | XMS_ITS | Encounter Summary ---
Author Name Unknown Organization [facility] Address [address] [place] [address] Care Team Providers Care Computer Systems Software Engineer Name Role Phone Elsewhere, Pcp Primary Care Provider Unavailabl e Reason for Visit * Outpatient (Routine) - Closed Specialty Diagnoses / Procedures Referred By Mikki feliciano Referred To Contact Ophthalmology Diagnoses Hemorrhage Retinal Bilateral Procedures ANGIOGRAPHY - OU - BOTH EYES OPH PROC IV START Phi Palm M.D., Ph.D. [address] [place] [phone] Rst [place] [place] [address] [place] [phone] Referral ID Status Reason Start Date Expiration Date Visits Re quested Visits Authorized [id number] Closed 07/17/2023 07/16/2024 3 3 Encounter Details Date Type Department Care Team (Latest Contact Info) Description 07/17/2023 10:00 AM VIDEO TAPE EDITOR Procedure visit Department of Ophthalmology in [place], [place] [address] [place] [phone] Phi Palm M.D., Ph.D. [address] [place] [phone] Suleiman Vargas Hemorrhage Retinal Bilateral Social History Tobacco Use Types Packs/Day Years Used Date Smoking Tobacco: Never Passive Smoke Exposure: Never Smokeless Tobacco: Never Alcohol Use Standard Drinks/Week Comments Not Currently 6 (1 standard drink = 0.6 oz pur e alcohol) Occasional [facility] Utilities Answer Date Recorded In [...] your living situation today? I have a [facility] place to live 07/10/2023 Sex and Gender Information Value Date Recorded Sex Assigned at Female 05/31/2023 8:26 AM VIDEO TAPE EDITOR Gender Identity Female 05/31/2023 8:26 AM VIDEO TAPE EDITOR Sexual Orientation Straight 05/31/2023 8: 26 AM VIDEO TAPE EDITOR documented as of this encounter Progress Notes * Suleiman Vargas - 07/17/2023 10:00 AM CST Patient [...] CREATININE 0.90 07/04/2023 Adverse reaction noted: NONE. O TAPE EDITOR documented in this encounter Plan of Treatment Upcoming Encounters Date Type Department Care Team (Late st Contact Info) Description 08/19/2023 6:40 AM VIDEO TAPE EDITOR Appointment Department of Laboratory Medicine and Pathology, [facility] in [place], [place] [address] [place] [phone] Pérez Zuniga M.D., Ph.D. [address] [place] [phone] 08/19/2023 7:00 AM VIDEO TAPE EDITOR Ancillary Procedure Department of Cardiovascular Medicine in [address] [phone] Pérez Zuniga M.D., Ph.D. [address] [place] [phone] 08/19/2023 9:00 AM VIDEO TAPE EDITOR Appointment Department of Radiology, [facility] in [place], [place] [address] [place] [phone] Pérez Zuniga M.D., Ph.D. [address] [place] [phone] 08/19/2023 3:40 PM VIDEO TAPE EDITOR Office Visit Department of Oncology in [place], [place] [address] [place] [phone] Zhane Granados APRN, C.N.P. [address] [place] [phone] 08/21/2023 10:15 AM VIDEO TAPE EDITOR Clinical Support Department of Palliative Care in [place], [place] [address] [place] [phone] Serenity Kelsey P.A.-C. [address] [place] [phone] Meka Rinaldi D.N.Dina., R.N., [facility] documented as of this encounter Procedures Procedure Name Priority Date/Time Associated Diagnosis Comments ANGIOGRAPHY - OU - BOTH EYES Routine 07/17/2023 12:55 PM VIDEO TAPE EDITOR Hemorrhage Retinal Bilateral documented in this encounter Results * Fluorescein Angiography - OU - Both Eyes (07/17/2023 12:55 PM VIDEO TAPE EDITOR) Narrative OPHTHALMOLOGY IMAGING EXAM - 07/17/2023 7:03 PM VIDEO TAPE EDITOR Right Eye Dye used is fluorescein. Fluorescein [...] Sat07/10/23 at 0748 Given 07/17/2023 12:43 PM VIDEO TAPE EDITOR 3 mL Inactive Administered Medications - up to 3 most recent administrations Medication Order MAR Action Action Date Dose Rate Site fluorescein 100 mg/mL (10 %) injection 500 mg (AK-FLUOR/FLUORESCEIN) 500 mg, intravenous, Once, On Sat07/10/23 at 0815, For 1 dose Given 07/17/2023 12:42 PM VIDEO TAPE EDITOR 500 mg documented in this encounter Additional Health Concerns Infection Onset Date Last Indicated Resolved Time Protective Environment 06/04/2023 06/04/2023 documented as of this encounter Care Teams Computer Systems Software Engineer Relationship Specialty Start Date End Date Elsewhere, Pcp PCP - General Family Medicine 06/17/23 documented as of this encounter
--- OUTSIDE RECORDS SUMMARY | 2023-08-09 19:01 | XMS_ITS | Encounter Summary ---
Author Name Unknown Organization [facility] Address [address] [place] [address] Care Team Providers Care Barrel Cutter Name Role Phone Elsewhere, Pcp Primary Care Provider Unavailabl e Reason for Referral * Outpatient (Routine) - Authorized Specialty Diagnoses / Procedures Referred By Mikki feliciano Referred To Contact Palliative Valentine Singh M.D., M.S. [address] [place] [phone] [facility] Referral ID Status Reason Start Date Expiration Date V isits Requested Visits Authorized [id number] Authorized 07/29/2023 07/28/2026 1 1 Scheduling Instructions 4-8 weeks, with Dr. Kelsey or if needed based on date, ok for another provider FIELD Reason for Visit * Outpatient (Routine) - Closed Specialty Diagnoses / Procedures Referred By Mikki feliciano Referred To Contact Palliative Valentine Singh M.D., M.S. [address] [place] [phone] [facility] Referral ID Status Reason Start Date Expiration Date Visits Re quested Visits Authorized [id number] Closed 07/01/2023 06/30/2026 1 1 Encounter Details Date Type Department Care Team (Late st Contact Info) Description 07/29/2023 10:15 AM RN FIELD Telemedicine Department of Palliative Care in [place], [place] 200 [place] [address] Valentine Kelsey M.D., M.S. 200 [place] [phone] Melanoma Trunk (HCC) (Primary Dx); Secondary Malignant Neoplasm Bone (HCC); Pain Cancer Associated; Palliative Care Social History Tobacco Use Types Packs/Day Years Used Date Smoking Tobacco: Never Passive Smoke Exposure: Never Smokeless Tobacco: Never Alcohol Use Standard Drinks/Week Comments Not Currently 6 (1 standard drink = 0.6 oz pur e alcohol) Occasional [facility] Utilities Answer Date Recorded In the [...] your living situation today? I have a [facility] place to live 07/10/2023 Sex and Gender Information Value Date Recorded Sex Assigned at Female 05/31/2023 8:26 AM RN FIELD Gender Identity Female 05/31/2023 8:26 AM RN FIELD Sexual Orientation Straight 05/31/2023 8: 26 AM RN FIELD documented as of this encounter Progress Notes * Valentine Kelsey M.D., M.S. - 07/29/2023 10:15 AM CST SUBJECTIVE CHIEF COMPLAINT/REASON FOR VISIT Tony Cota is a 47 y.o. woman from [place], [place] with Stage IV melanoma metastatic to [...] fever and nausea with future dexamethasone wean. [employer] Who completed this form?: Patient No [...] Cota is a 47 y.o. woman from [place], [place] with Stage IV melanoma metastatic to [...] related to controlled substance prescribing: Melanoma [place] AUTOMOTIVE TECHNICIAN INSTRUCTOR Review: We have reviewed the patient's record in the [place] prescription monitoring program 07/29/2023. Opioid Toxicity Review: [...] technology by Valentine Kelsey M.D., M.S. in [facility] to the patient in Patient's Home Valentine Kelsey M.D., M.S. FIELD documented in this encounter Plan of Treatment Upcoming Encounters Date Type Department Care Team (Late st Contact Info) Description 08/19/2023 6:40 AM RN FIELD Appointment Department of Laboratory Medicine and Pathology, [facility], in [place], [place] [address] [place] [phone] Pérez Zuniga M.D., Ph.D. [address] [place] [phone] 08/19/2023 7:00 AM RN FIELD Ancillary Procedure Department of Cardiovascular Medicine in [place], [place] [address] [place] [phone] Pérez Zuniga M.D., Ph.D. [address] [place] [phone] 08/19/2023 9:00 AM RN FIELD Appointment Department of Radiology, [facility], in [place], [place] [address] [place] [phone] Pérez Zuniga M.D., Ph.D. [address] [place] [phone] 08/19/2023 3:40 PM RN FIELD Office Visit Department of Oncology in [place], [place] [address] [place] [phone] Zhane Granados, GAIL, C.N.P. [address] [place] [phone] 08/21/2023 10:15 AM RN FIELD Clinical Support Department of Palliative Care in [place], [place] [address] [place] [phone] Serenity Kelsey, P.A.-C. [address] [place] [phone] Meka Rinaldi D.N.P., R.N., [facility] Scheduled Referrals Name Type Priority Associated [...] documented as of this encounter Care Teams Barrel Cutter Relationship Specialty Start Date End Date Elsewhere, Pcp PCP - General Family Medicine 06/17/23 documented as of this encounter
--- OUTSIDE RECORDS SUMMARY | 2023-08-09 19:01 | XMS_ITS | Encounter Summary ---
Author Name Unknown Organization [facility] Address [address] [place] [address] Care Team Providers Care Engraved Roller Inspector Name Role Phone Elsewhere, Pcp Primary Care Provider Unavailabl e Encounter Details Date Type Department Care Team (Late st Contact Info) Description 08/08/2023 Clinical Communication Department of Oncology in [place], [place] [address] [place] [phone] Cherelle Sanabria M.D. [address] [place] [phone] Social History Tobacco Use Types Packs/Day Years Used Date Smoking Tobacco: Never Passive Smoke Exposure: Never Smokeless Tobacco: Never Alcohol Use Standard Drinks/Week Comments Not Currently 6 (1 standard drink = 0.6 oz pur e alcohol) Occasional C Utilities Answer Date Recorded In the past 12 months has [email or web address] electric, gas, oil, or water company threatened [...] your living situation today? I have a [facility] place to live 07/10/2023 Sex and Gender Information Value Date Recorded Sex Assigned at Female 05/31/2023 8:26 AM FINANCIAL REPORTING DIRECTOR Gender Identity Female 05/31/2023 8:26 AM FINANCIAL REPORTING DIRECTOR Sexual Orientation Straight 05/31/2023 8: 26 AM FINANCIAL REPORTING DIRECTOR documented as of this encounter Miscellaneous Notes * Telephone Encounter - Cherelle Sanabria M.D. - 08/08/2023 12:45 AM FINANCIAL REPORTING DIRECTOR Oncology Red Leader Received a call from Tony Cota, 48 [...] by: Cherelle Sanabria M.D. 08/08/23 1:06 AM FINANCIAL REPORTING DIRECTOR Medical Oncology Fellow NCIAL REPORTING DIRECTOR documented in this encounter Plan of Treatment Upcoming Encounters Date Type Department Care Team (Late st Contact Info) Description 08/19/2023 6:40 AM FINANCIAL REPORTING DIRECTOR Appointment Department of Laboratory Medicine and Pathology, [facility] in [place], [place] [address] [place] [phone] Pérez Zuniga M.D., Ph.D. [address] [place] [phone] 08/19/2023 7:00 AM FINANCIAL REPORTING DIRECTOR Ancillary Procedure Department of Cardiovascular Medicine in [place], [place] [address] [place] [phone] Pérez Zuniga M.D., Ph.D. [address] [place] [phone] 08/19/2023 9:00 AM FINANCIAL REPORTING DIRECTOR Appointment Department of Radiology, [facility] in [place], [place] [address] [place] [address] Pérez Zuniga M.D., Ph.D. [address] [place] [phone] 08/19/2023 3:40 PM FINANCIAL REPORTING DIRECTOR Office Visit Department of Oncology in [place], [place] [address] [place] [phone] Zhane Granados APRN, C.N.P. [address] [place] [phone] 08/21/2023 10:15 AM FINANCIAL REPORTING DIRECTOR Clinical Support Department of Palliative Care in [place], [place] [address] [place] [phone] Serenity Kelsey, P.A.-C. [address] [place] [phone] Meka Rinaldi D.N.P., R.N., [facility] documented as of this encounter Visit Diagnoses Not on filedocumented in this encounter Additional Health Concerns Infection Onset Date Last Indicated Resolved Time Protective Environment 06/04/2023 06/04/2023 documented as of this encounter Care Teams Engraved Roller Inspector Relationship Specialty Start Date End Date Elsewhere, Pcp PCP - General Family Medicine 06/17/23 documented as of this encounter
--- OUTSIDE RECORDS SUMMARY | 2023-08-09 19:01 | XMS_ITS | Encounter Summary ---
Author Name Unknown Organization [facility] Address [address] [place] [address] Care Team Providers Care Enterprise Systems Architect Name Role Phone Elsewhere, Pcp Primary Care Provider Unavailabl e Reason for Visit * Outpatient (Routine) - Closed Specialty Diagnoses / Procedures Referred By Mikki feliciano Referred To Contact Ophthalmology Diagnoses Hemorrhage Retinal Bilateral Procedures ANGIOGRAPHY - OU - BOTH EYES OPH PROC IV START Phi Palm M.D., Ph.D. [address] [place] [phone] Rst Oph [place] [address] [place] [phone] Referral ID Status Reason Start Date Expiration Date Visits Re quested Visits Authorized [id number] Closed 07/17/2023 07/16/2024 3 3 Encounter Details Date Type Department Care Team (Late st Contact Info) Description 07/17/2023 10:40 AM HOUSEHOLD APPLIANCE INSTALLER Ancillary Procedure Department of Ophthalmology in [place], [place] [address] [place] [phone] Phi Palm M.D., Ph.D. [address] [place] [phone] Social History Tobacco Use Types Packs/Day Years Used Date Smoking Tobacco: Never Passive Smoke Exposure: Never Smokeless Tobacco: Never Alcohol Use Standard Drinks/Week Comments Not Currently 6 (1 standard drink = 0.6 oz pur e alcohol) Occasional [facility] Utilities Answer Date Recorded In the past [...] your living situation today? I have a [facility] place to live 07/10/2023 Sex and Gender Information Value Date Recorded Sex Assigned at Female 05/31/2023 8:26 AM HOUSEHOLD APPLIANCE INSTALLER Gender Identity Female 05/31/2023 8:26 AM HOUSEHOLD APPLIANCE INSTALLER Sexual Orientation Straight 05/31/2023 8: 26 AM HOUSEHOLD APPLIANCE INSTALLER documented as of this encounter Plan of Treatment Upcoming Encounters Date Type Department Care Team (Late st Contact Info) Description 08/19/2023 6:40 AM HOUSEHOLD APPLIANCE INSTALLER Appointment Department of Laboratory Medicine and Pathology, [facility], in [place], [place] [address] [place] [phone] Pérez Zuniga M.D., Ph.D. [address] [place] [phone] 08/19/2023 7:00 AM HOUSEHOLD APPLIANCE INSTALLER Ancillary Procedure Department of Cardiovascular Medicine in [place], [place] [address] [place] [phone] Pérez Zuniga M.D., Ph.D. [address] [place] [phone] 08/19/2023 9:00 AM HOUSEHOLD APPLIANCE INSTALLER Appointment Department of Radiology, [facility], in [place], [place] [address] [place] [phone] Pérez Zuniga M.D., Ph.D. [address] [place] [phone] 08/19/2023 3:40 PM HOUSEHOLD APPLIANCE INSTALLER Office Visit Department of Oncology in [place], [place] [address] [place] [phone] Zhane Granados, SUPPLY CHAIN MANAGER, C.N.P. [address] [place] [phone] 08/21/2023 10:15 AM HOUSEHOLD APPLIANCE INSTALLER Clinical Support Department of Palliative Care in [place], [place] [address] [place] [phone] Serenity Kelsey, P.A.-C. [address] [place] [phone] Meka Rinaldi D.N.P., R.N., [facility] documented as of this encounter Procedures Procedure Name Priority Date/Time Associated Diagnosis Comments ANGIOGRAPHY - OU - BOTH EYES Routine 07/17/2023 12:55 PM HOUSEHOLD APPLIANCE INSTALLER Hemorrhage Retinal Bilateral documented in this encounter Results * Fluorescein Angiography - OU - Both Eyes (07/17/2023 12:55 PM HOUSEHOLD APPLIANCE INSTALLER) Narrative OPHTHALMOLOGY IMAGING EXAM - 07/17/2023 7:03 PM HOUSEHOLD APPLIANCE INSTALLER Right Eye Dye used is fluorescein. Fluorescein [...] documented as of this encounter Care Teams Enterprise Systems Architect Relationship Specialty Start Date End Date Elsewhere, Pcp PCP - General Family Medicine 06/17/23 documented as of this encounter
--- OUTSIDE RECORDS SUMMARY | 2023-08-09 19:01 | XMS_ITS | Encounter Summary ---
Author Name Unknown Organization [facility] Address [address] [place] [address] Care Team Providers Care Resident Care Director Name Role Phone Elsewhere, Pcp Primary Care Provider Unavailabl e Encounter Details Date Type Department Care Team (Late st Contact Info) Description 07/17/2023 12:05 AM ENGINEERING SUPPLIES SALES Ancillary Procedure Department of Dermatology Social History Tobacco Use Types Packs/Day Years Used Date Smoking Tobacco: Never Passive Smoke Exposure: Never Smokeless Tobacco: Never Alcohol Use Standard Drinks/Week Comments Not Currently 6 (1 standard drink = 0.6 oz pur e alcohol) Occasional [facility] Utilities Answer Date Recorded In the past 12 months has [email or web address] electric, gas, oil, or water company threatened [...] your living situation today? I have a [facility] place to live 07/10/2023 Sex and Gender Information Value Date Recorded Sex Assigned at Female 05/31/2023 8:26 AM ENGINEERING SUPPLIES SALES Gender Identity Female 05/31/2023 8:26 AM ENGINEERING SUPPLIES SALES Sexual Orientation Straight 05/31/2023 8: 26 AM ENGINEERING SUPPLIES SALES documented as of this encounter Plan of Treatment Upcoming Encounters Date Type Department Care Team (Late st Contact Info) Description 08/19/2023 6:40 AM ENGINEERING SUPPLIES SALES Appointment Department of Laboratory Medicine and Pathology, [place], [place] [address] [place] [phone] Pérez Zuniga M.D., Ph.D. [address] [place] [phone] 08/19/2023 7:00 AM ENGINEERING SUPPLIES SALES Ancillary Procedure Department of Cardiovascular Medicine in [place], [place] [address] [place] [phone] Pérez Zuniga M.D., Ph.D. [address] [place] [phone] 08/19/2023 9:00 AM ENGINEERING SUPPLIES SALES Appointment Department of Radiology, [facility] in [place], [place] [address] [place] [address] Pérez Zuniga M.D., Ph.D. [address] [place] [phone] 08/19/2023 3:40 PM ENGINEERING SUPPLIES SALES Office Visit Department of Oncology in [place], [place] [address] [place] [phone] Zhane Granados, GAIL, C.N.P. [address] [place] [phone] 08/21/2023 10:15 AM ENGINEERING SUPPLIES SALES Clinical Support Department of Palliative Care in [place], [place] [address] [place] [phone] Serenity Kelsey P.A.-C. [address] [place] [phone] Meka Rinaldi D.N.P., R.N., [facility] documented as of this encounter Procedures Procedure Name Priority Date/Time Associated Diagnosis Comments DERMATOLOGY IMAGE EXAM Routine 07/17/2023 12:05 AM ENGINEERING SUPPLIES SALES documented in this encounter Results * Back 527 Dermoscopy-Dermatology Image Exam (07/17/2023 12:05 AM ENGINEERING SUPPLIES SALES) Narrative IIMS - 07/18/2023 7:21 AM ENGINEERING SUPPLIES SALES This order has been created and auto-finalized to support the import of images acquired without order. The clinical documentation to support these images can be found on the encounter that produced images. Provider Not In System IMG NON RAD IMAGI NG PROCEDURES IIMI NA documented in this encounter Visit Diagnoses Not on filedocumented in this encounter Additional Health Concerns Infection Onset Date Last Indicated Resolved Time Protective Environment 06/04/2023 06/04/2023 documented as of this encounter Care Teams Resident Care Director Relationship Specialty Start Date End Date Elsewhere, Pcp PCP - General Family Medicine 06/17/23 documented as of this encounter
--- OUTSIDE RECORDS SUMMARY | 2023-08-09 19:01 | XMS_ITS | Encounter Summary ---
Author Name Unknown Organization [facility] Address [address] [place] [phone] Care Team Providers Care Property Maintenance Technician Name Role Phone Elsewhere, Pcp Primary Care Provider Unavailabl e Encounter Details Date Type Department Care Team (Latest Contact Info) Description 08/06/2023 2:30 PM DINING ROOM MANAGER Clinical Communication Virtual Review in [place], [place] 200 [place], [place] [phone] Social History Tobacco Use Types Packs/Day Years Used Date Smoking Tobacco: Never Passive Smoke Exposure: Never Smokeless Tobacco: Never Tobacco Cessation:Counseling Given: Not Answered Alcohol Use Standard Drinks/Week Comments Not Currently 6 (1 standard drink = 0.6 oz pur e alcohol) Occasional [facility] Utilities Answer Date Recorded In the past 12 months has [employer], gas, oil, or water [employer] threatened to shut off services in your [...] your living situation today? I have a [facility] place to live 07/10/2023 Sex and Gender Information Value Date Recorded Sex Assigned at Female 05/31/2023 8:26 AM DINING ROOM MANAGER Gender Identity Female 05/31/2023 8:26 AM DINING ROOM MANAGER Sexual Orientation Straight 05/31/2023 8: 26 AM DINING ROOM MANAGER documented as of this encounter Plan of Treatment Upcoming Encounters Date Type Department Care Team (Late st Contact Info) Description 08/19/2023 6:40 AM DINING ROOM MANAGER Appointment Department of Laboratory Medicine and Pathology, [facility] in [place], [place] [address] [place] [address] Pérez Zuniga M.D., Ph.D. [address] [place] [phone] 08/19/2023 7:00 AM DINING ROOM MANAGER Ancillary Procedure Department of Cardiovascular Medicine in [place], [place] [address] [place] [address] Pérez Zuniga M.D., Ph.D. [address] [place] [phone] 08/19/2023 9:00 AM DINING ROOM MANAGER Appointment Department of Radiology, [facility] in [place], [place] [address] [place] [phone] Pérez Zuniga M.D., Ph.D. [address] [place] [phone] 08/19/2023 3:40 PM DINING ROOM MANAGER Office Visit Department of Oncology in [place], [place] [address] [place] [phone] Zhane Granados APRN, C.N.P. [address] [place] [phone] 08/21/2023 10:15 AM DINING ROOM MANAGER Clinical Support Department of Palliative Care in [place], [place] [address] [place] [phone] Serenity Kelsey, P.A.-C. [address] [place] [phone] Meka Rinaldi D.N.P., R.N., [facility] documented as of this encounter Visit Diagnoses Not on filedocumented in this encounter Additional Health Concerns Infection Onset Date Last Indicated Resolved Time Protective Environment 06/04/2023 06/04/2023 documented as of this encounter Care Teams Property Maintenance Technician Relationship Specialty Start Date End Date Elsewhere, Pcp PCP - General Family Medicine 06/17/23 documented as of this encounter
--- OUTSIDE RECORDS SUMMARY | 2023-08-09 19:01 | XMS_ITS | Encounter Summary ---
Author Name Unknown Organization [facility] Address [address] [place] [address] Care Team Providers Care Hi Lift Operator Name Role Phone Elsewhere, Pcp Primary Care Provider Unavailabl e Encounter Details Date Type Department Care Team (Late st Contact Info) Description 07/17/2023 12:45 PM ASSISTANT MEN'S SOCCER COACH Ancillary Procedure Department of Ophthalmology Social History Tobacco Use Types Packs/Day Years Used Date Smoking Tobacco: Never Passive Smoke Exposure: Never Smokeless Tobacco: Never Alcohol Use Standard Drinks/Week Comments Not Currently 6 (1 standard drink = 0.6 oz pur e alcohol) Occasional [facility] Utilities Answer Date Recorded In the past 12 months has [employer], gas, oil, or water company threatened [...] living situation today? I have a [facility] place to live 07/10/2023 Sex and Gender Information Value Date Recorded Sex Assigned at Female 05/31/2023 8:26 AM ASSISTANT MEN'S SOCCER COACH Gender Identity Female 05/31/2023 8:26 AM ASSISTANT MEN'S SOCCER COACH Sexual Orientation Straight 05/31/2023 8: 26 AM ASSISTANT MEN'S SOCCER COACH documented as of this encounter Plan of Treatment Upcoming Encounters Date Type Department Care Team (Late st Contact Info) Description 08/19/2023 6:40 AM ASSISTANT MEN'S SOCCER COACH Appointment Department of Laboratory Medicine and Pathology, [place], [place] [address] [place] [address] Pérez Zuniga M.D., Ph.D. [address] [place] [phone] 08/19/2023 7:00 AM ASSISTANT MEN'S SOCCER COACH Ancillary Procedure Department of Cardiovascular Medicine in [place], [place] [address] [place] [address] Pérez Zuniga M.D., Ph.D. [address] [place] [phone] 08/19/2023 9:00 AM ASSISTANT MEN'S SOCCER COACH Appointment Department of Radiology, [facility] in [place], [place] [address] [place] [address] Pérez Zuniga M.D., Ph.D. [address] [place] [phone] 08/19/2023 3:40 PM ASSISTANT MEN'S SOCCER COACH Office Visit Department of Oncology in [place], [place] [address] [place] [phone] Zhane Granados APRN, C.N.P. [address] [place] [phone] 08/21/2023 10:15 AM ASSISTANT MEN'S SOCCER COACH Clinical Support Department of Palliative Care in [place], [place] [address] [place] [phone] Serenity Kelsey P.A.-C. [address] [place] [phone] Meka Rinaldi D.N.P., R.N., [facility] documented as of this encounter Procedures Procedure Name Priority Date/Time Associated Diagnosis Comments OPHTHALMOLOGY IMAGE EXAM Routine 07/17/2023 12:45 PM ASSISTANT MEN'S SOCCER COACH documented in this encounter Results * [employer]-Ophthalmology Image Exam (07/17/2023 12:45 PM ASSISTANT MEN'S SOCCER COACH) 07/17/2023 12:4 5 PM ASSISTANT MEN'S SOCCER COACH Narrative IIMS - 07/17/2023 1:03 PM ASSISTANT MEN'S SOCCER COACH This order has been created and auto-finalized [...] documented as of this encounter Care Teams Hi Lift Operator Relationship Specialty Start Date End Date Elsewhere, Pcp PCP - General Family Medicine 06/17/23 documented as of this encounter
--- OUTSIDE RECORDS SUMMARY | 2023-08-09 19:01 | XMS_ITS | Encounter Summary ---
Author Name Unknown Organization [facility] Address [address] [place] [address] Care Team Providers Care Laboratory Supervisor Name Role Phone Elsewhere, Pcp Primary Care Provider Unavailabl e Encounter Details Date Type Department Care Team (Late st Contact Info) Description 08/04/2023 Specialty Pharmacy [facility] [address] [place] [phone] Demetrius Londono Jr., R.Ph. [address] [place] [phone] Social History Tobacco Use Types Packs/Day Years [...] living situation today? I have a [facility] place to live 07/10/2023 Sex and Gender Information Value Date Recorded Sex Assigned at Female 05/31/2023 8:26 AM HEATING PLANT SUPERINTENDENT Gender Identity Female 05/31/2023 8:26 AM HEATING PLANT SUPERINTENDENT Sexual Orientation Straight 05/31/2023 8: 26 AM HEATING PLANT SUPERINTENDENT documented as of this encounter Miscellaneous Notes * Telephone Encounter - Demetrius Londono Jr., R.Ph. - 08/04/2023 1:15 PM HEATING PLANT SUPERINTENDENT [facility] Specialty Pharm[facility] service discontinued at this time. Patient using other pharmacy. ING PLANT SUPERINTENDENT documented in this encounter Plan of Treatment Upcoming Encounters Date Type Department Care Team (Late st Contact Info) Description 08/19/2023 6:40 AM HEATING PLANT SUPERINTENDENT Appointment Department of Laboratory Medicine and Pathology, [facility], in [place], [place] [address] [place] [address] Pérez Zuniga M.D., Ph.D. [address] [place] [phone] 08/19/2023 7:00 AM HEATING PLANT SUPERINTENDENT Ancillary Procedure Department of Cardiovascular Medicine in [place], [place] [address] [place] [address] Pérez Zuniga M.D., Ph.D. [address] [place] [phone] 08/19/2023 9:00 AM HEATING PLANT SUPERINTENDENT Appointment Department of Radiology, [facility] in [place], [place] [address] [place] [address] Pérez Zuniga M.D., Ph.D. [address] [place] [phone] 08/19/2023 3:40 PM HEATING PLANT SUPERINTENDENT Office Visit Department of Oncology in [place], [place] [address] [place] [phone] Zhane Granados APRN, C.N.P. [address] [place] [phone] 08/21/2023 10:15 AM HEATING PLANT SUPERINTENDENT Clinical Support Department of Palliative Care in [place], [place] [address] [place] [address] Serenity Kelsey, P.A.-C. [address] [place] [phone] Meka Rinaldi D.N.P., R.N., [facility] documented as of this encounter Visit Diagnoses Not on filedocumented in this encounter Additional Health Concerns Infection Onset Date Last Indicated Resolved Time Protective Environment 06/04/2023 06/04/2023 documented as of this encounter Care Teams Laboratory Supervisor Relationship Specialty Start Date End Date Elsewhere, Pcp PCP - General Family Medicine 06/17/23 documented as of this encounter
--- OUTSIDE RECORDS SUMMARY | 2023-08-09 19:01 | XMS_ITS | Encounter Summary ---
Author Name Unknown Organization [facility] Address [address] [place] [address] Care Team Providers Care Transfer Coordinator Name Role Phone Elsewhere, Pcp Primary Care Provider Unavailabl e Reason for Visit * Outpatient (Routine) - Closed Specialty Diagnoses / Procedures Referred By Mikki t Referred To Contact Ophthalmology Diagnoses Hemorrhage Retinal Bilateral Procedures ANGIOGRAPHY - OU - BOTH EYES OPH PROC IV START Phi Palm M.D., Ph.D. [address] [place] [phone] Rst [place]ph [place] [address] [place] [phone] Referral ID Status Reason Start Date Expiration Date Visits Re quested Visits Authorized [id number] Closed 07/17/2023 07/16/2024 3 3 Encounter Details Date Type Department Care Team (Latest Contact Info) Description 07/17/2023 11:30 AM OLIVE PITTER Ancillary Procedure Department of Ophthalmology in [place], [place] [address] [place] [phone] Phi Palm M.D., Ph.D. [address] [place] [phone] Hemorrhage Retinal Bilateral Social History Tobacco Use Types Packs/Day Years Used Date Smoking Tobacco: Never Passive Smoke Exposure: Never Smokeless Tobacco: Never Alcohol Use Standard Drinks/Week Comments Not Currently 6 (1 standard drink = 0.6 oz pur e alcohol) Occasional [facility] Utilities Answer Date Recorded In [...] your living situation today? I have a [facility] place to live 07/10/2023 Sex and Gender Information Value Date Recorded Sex Assigned at Female 05/31/2023 8:26 AM OLIVE PITTER Gender Identity Female 05/31/2023 8:26 AM OLIVE PITTER Sexual Orientation Straight 05/31/2023 8: 26 AM OLIVE PITTER documented as of this encounter Plan of Treatment Upcoming Encounters Date Type Department Care Team (Late st Contact Info) Description 08/19/2023 6:40 AM OLIVE PITTER Appointment Department of Laboratory Medicine and Pathology, [facility], in [place], [place] [address] [place] [phone] Pérez Zuniga M.D., Ph.D. [address] [place] [phone] 08/19/2023 7:00 AM OLIVE PITTER Ancillary Procedure Department of Cardiovascular Medicine in [place], [place] [address] [place] [phone] Pérez Zuniga M.D., Ph.D. [address] [place] [phone] 08/19/2023 9:00 AM OLIVE PITTER Appointment Department of Radiology, [facility], in [place], [place] [address] [place] [phone] Pérez Zuniga M.D., Ph.D. [address] [place] [phone] 08/19/2023 3:40 PM OLIVE PITTER Office Visit Department of Oncology in [place], [place] [address] [place] [phone] Zhane Granados, FAMILY PROGRAM SPECIALIST, C.N.P. [address] [place] [phone] 08/21/2023 10:15 AM OLIVE PITTER Clinical Support Department of Palliative Care in [place], [place] [address] [place] [phone] Serenity Kelsey, P.A.-C. [address] [place] [phone] Meka Rinaldi D.N.P., R.N., [facility] documented as of this encounter Procedures Procedure Name Priority Date/Time Associated Diagnosis Comments FUNDUS PHOTOS - OU - BOTH EYES Routine 07/17/2023 11:52 AM OLIVE PITTER Hemorrhage Retinal Bilateral documented in this encounter Results * Fundus Photos - OU - Both Eyes (07/17/2023 11:52 AM OLIVE PITTER) Narrative OPHTHALMOLOGY IMAGING EXAM - 07/17/2023 7:03 PM OLIVE PITTER Right Eye Field of view is standard [...] documented as of this encounter Care Teams Transfer Coordinator Relationship Specialty Start Date End Date Elsewhere, Pcp PCP - General Family Medicine 06/17/23 documented as of this encounter
--- OUTSIDE RECORDS SUMMARY | 2023-08-09 19:01 | XMS_ITS | Encounter Summary ---
Author Name Unknown Organization [facility] Address [address] [place] [address] Care Team Providers Care Armature Winder Repair Name Role Phone Elsewhere, Pcp Primary Care Provider Unavailabl e Reason for Visit * Auth/Cert (Routine) Specialty Diagnoses / Procedures Referred By Contac t Referred To Contact Diagnoses Sepsis (HCC) Multiple Myeloma Not Having Achieved Remission (HCC) Fever, syncopal Procedures ADMIT TO INPATIENT Referral ID Status Reason Start Date Expiration Date Visits Re quested Visits Authorized [id number] 1 1 Encounter Details Date Type Department Care Team (Late st Contact Info) Description 08/09/2023 Hospital Encounter RST [facility] Bed Planning Felicity Vargas M.D. [address] [place] [phone] Jhonathan Gray M.D., Ph.D. [address] [place] [phone] Social History Tobacco Use Types Packs/Day Years Used Date Smoking Tobacco: Never Passive Smoke Exposure: Never Smokeless Tobacco: Never Alcohol Use Standard Drinks/Week Comments Not Currently 6 (1 standard drink = 0.6 oz pur e alcohol) Occasional [facility] Utilities Answer Date Recorded In the past 12 months has e [employer], gas, oil, or water company threatened to [...] living situation today? I have a [facility] place to live 07/10/2023 Sex and Gender Information Value Date Recorded Sex Assigned at Female 05/31/2023 8:26 AM CLINICAL ASSISTANT PROFESSOR Gender Identity Female 05/31/2023 8:26 AM CLINICAL ASSISTANT PROFESSOR Sexual Orientation Straight 05/31/2023 8: 26 AM CLINICAL ASSISTANT PROFESSOR documented as of this encounter Plan of Treatment Upcoming Encounters Date Type Department Care Team (Late st Contact Info) Description 08/19/2023 6:40 AM CLINICAL ASSISTANT PROFESSOR Appointment Department of Laboratory Medicine and Pathology, [facility] in [place], [place] [address] [place] [address] Pérez Zuniga M.D., Ph.D. [address] [place] [phone] 08/19/2023 7:00 AM CLINICAL ASSISTANT PROFESSOR Ancillary Procedure Department of Cardiovascular Medicine in [place], [place] [address] [place] [address] Pérez Zuniga M.D., Ph.D. [address] [place] [phone] 08/19/2023 9:00 AM CLINICAL ASSISTANT PROFESSOR Appointment Department of Radiology, [facility] in [place], [place] [address] [place] [address] Pérez Zuniga M.D., Ph.D. [address] [place] [phone] 08/19/2023 3:40 PM CLINICAL ASSISTANT PROFESSOR Office Visit Department of Oncology in [place], [place] [address] [place] [address] Zhane Granados, BACON SLICER, C.N.P. [address] [place] [phone] 08/21/2023 10:15 AM CLINICAL ASSISTANT PROFESSOR Clinical Support Department of Palliative Care in [place], [place] [address] [place] [address] Serenity Kelsey, P.A.-C. [address] [place] [phone] Meka Rinaldi D.N.P., R.N., [facility] documented as of this encounter Visit Diagnoses Not on filedocumented in this encounter Admitting Diagnoses Diagnosis Sepsis (HCC) documented in this encounter Additional Health Concerns Infection Onset Date Last Indicated Resolved Time Protective Environment 06/04/2023 06/04/2023 documented as of this encounter Care Teams Armature Winder Repair Relationship Specialty Start Date End Date Elsewhere, Pcp PCP - General Family Medicine 06/17/23 documented as of this encounter
--- OUTSIDE RECORDS SUMMARY | 2023-08-09 19:02 | XMS_ITS | Encounter Summary ---
Author Name Unknown Organization [facility] Address [address] [place] [address] Care Team Providers Care Briquette Molder Name Role Phone Elsewhere, Pcp Primary Care Provider Unavailabl e Encounter Details Date Type Department Care Team (Latest Contact Info) Description 07/04/2023 9:36 AM HAT BINDER - 07/04/2023 11:59 PM HAT BINDER Hospital Encounter Department of Laboratory Medicine and Pathology, [facility], in [place], [place] [address] [place] [address] Pérez Zuniga M.D., Ph.D. [address] [place] [phone] Melanoma Trunk (HCC); Secondary Malignant Neoplasm Bone (HCC); Other Wire Communications Engineer Current Drug Therapy Discharge Disposition: Home or [...] Sex Assigned at Female 05/31/2023 8:26 AM HAT BINDER Gender Identity Female 05/31/2023 8:26 AM HAT BINDER Sexual Orientation Straight 05/31/2023 8: 26 AM HAT BINDER documented as of this encounter Medications at [...] in original bottle. 30 tablet 2 07/02/2023 morphine (MS Contin) 15 mg ER tabletIndications:Ch [...] st Contact Info) Description 08/19/2023 6:40 AM HAT BINDER Appointment Department of Laboratory Medicine and Pathology, [facility] in [place], [place] [address] [place] [phone] Pérez Zuniga M.D., Ph.D. [address] [place] [phone] 08/19/2023 7:00 AM HAT BINDER Ancillary Procedure Department of Cardiovascular Medicine in [address] [phone] Pérez Zuniga M.D., Ph.D. [address] [place] [phone] 08/19/2023 9:00 AM HAT BINDER Appointment Department of Radiology, [facility] in [place], [place] [address] [place] [phone] Pérez Zuniga M.D., Ph.D. [address] [place] [phone] 08/19/2023 3:40 PM HAT BINDER Office Visit Department of Oncology in [place], [place] [address] [place] [phone] Zhane Granados APRN, C.N.P. [address] [place] [phone] 08/21/2023 10:15 AM HAT BINDER Clinical Support Department of Palliative Care in [place], [place] [address] [place] [phone] Serenity Kelsey, PSantoshASantosh-C. 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2 - 97.9 fL 07/04/2023 10:56 AM HAT BINDER DHPM RBC Distrib Width 17.5(H) 12.2 - 16.1 % 07/04/2023 10:56 AM HAT BINDER DHPM Platelet Count 701(H) 157 - 371 x10(9)/L 07/04/2023 10:56 AM HAT BINDER DHPM Leukocytes 9.9(H) 3.4 - 9.6 x10(9)/L 07/04/2023 10:56 AM HAT BINDER DHPM Neutrophils 5.27 1.56 - 6.45 x10(9)/L 07/04/2023 10:56 AM HAT BINDER DHPM Lymphocytes 3.81(H) 0.95 - 3.07 x10(9)/L 07/04/2023 10:56 AM HAT BINDER DHPM Monocytes 0.63 0.26 - 0.81 x10(9)/L 07/04/2023 10:56 AM HAT BINDER DHPM Eosinophils 0.10 0.03 - 0.48 x10(9)/L 07/04/2023 10:56 AM HAT BINDER DHPM Basophils 0.12(H) 0.01 - 0.08 x10(9)/L 07/04/2023 10:56 AM HAT BINDER DHPM Blood (Blood, Venous) 07/04/2023 9:50 AM HAT BINDER 07/04/2023 10:11 AM HAT BINDER Pérez Zuniga M.D., Ph.D. LAB BLOO D ADD-ON Performing Organization Address City/State/[facility] Co de Phone Number [facility] [address] [place] [address], [facility] [address] [place] [address] * Thyroid Function [place] (07/04/2023 9:49 AM HAT BINDER) [facility] TSH, Sensitive 2.3 0.3 - 4.2 mIU/L 07/04/2023 11:05 AM HAT BINDER DTL Blood (Blood, Venous) 07/04/2023 9:49 AM HAT BINDER 07/04/2023 10:29 AM HAT BINDER Pérez Zuniga M.D., Ph.D. LAB BLOO D ADD-ON [facility] [address] [place] [address], [place] DTL [facility] [address] [place] [address] * (ABNORMAL) Comprehensive Metabolic Panel (07/04/2023 9:49 AM HAT BINDER) Potassium, S 4.7 3.6 - 5.2 mmol/L 07/04/2023 11:05 AM HAT BINDER DTL Sodium, S 137 135 - 145 mmol/L 07/04/2023 11:05 AM HAT BINDER DTL Chloride, S 103 98 - 107 mmol/L 07/04/2023 11:05 AM HAT BINDER DTL Bicarbonate, S 24 22 - 29 mmol/L 07/04/2023 11:05 AM HAT BINDER DTL Anion Gap 10 7 - 15 07/04/2023 11:05 AM HAT BINDER DTL BUN (Blood Urea Nitrogen), S 22(H) 6 - 21 mg/dL 07/04/2023 11:05 AM HAT BINDER DTL Creatinine 0.90 0.59 - 1.04 mg/dL 07/04/2023 11:05 AM HAT BINDER DTL Estimated GFR (eGFR) 80 >=60 mL/min/BS A 07/04/2023 11:05 AM HAT BINDER DTL Comment: Estimated GFR calculated using the 2020 CKD_EPI creatinine equation. Calcium, Total, S 9.9 8.6 - 10.0 mg/dL 07/04/2023 11:05 AM HAT BINDER DTL Glucose, S 98 70 - 140 mg/dL 07/04/2023 11:05 AM HAT BINDER DTL Protein, Total, S 7.7 6.3 - 7.9 g/dL 07/04/2023 11:05 AM HAT BINDER DTL Albumin, S 4.3 3.5 - 5.0 g/dL 07/04/2023 11:05 AM HAT BINDER DTL Aspartate Aminotransferase (AST), S 26 8 - 43 U/L 07/04/2023 11:05 AM HAT BINDER DTL Alkaline Phosphatase, S 229(H) 35 - 104 U/L 07/04/2023 11:05 AM HAT BINDER DTL Alanine Aminotransferase (ALT), S 24 7 - 45 U/L 07/04/2023 11:05 AM HAT BINDER DTL Bilirubin, Total, S 0.2 0.0 - 1.2 mg/dL 07/04/2023 11:05 AM HAT BINDER DTL Blood (Blood, Venous) 07/04/2023 9:49 AM HAT BINDER 07/04/2023 10:29 AM HAT BINDER Pérez Zuniga M.D., Ph.D. 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
--- OUTSIDE RECORDS SUMMARY | 2023-08-09 19:02 | XMS_ITS | Encounter Summary ---
Author Name Unknown Organization [facility] Address [address] [place] [address] Care Team Providers Care Rubble Placer Name Role Phone Elsewhere, Pcp Primary Care Provider Unavailabl e Reason for Visit * Outpatient (Routine) - Closed Specialty Diagnoses / Procedures Referred By Mikki t Referred To Contact Oncology Laura Dalal M.D. [address] [place] [phone] [facility] Referral ID Status Reason Start Date Expiration Date Visits Re quested Visits Authorized [id number] Closed 06/10/2023 06/09/2026 1 1 Encounter Details Date Type Department Care Team (Late st Contact Info) Description 06/20/2023 3:00 PM AUTOMOTIVE FUEL SYSTEMS CONVERTER Nurse Only Department of Oncology in [place], [place] [address] [place] [phone] Laura Dalal M.D. [address] [place] [phone] Akosua Liz D.N.P., R.N. [address] [place] [phone] Social History Tobacco Use Types Packs/Day Years [...] Sex Assigned at Female 05/31/2023 8:26 AM AUTOMOTIVE FUEL SYSTEMS CONVERTER Gender Identity Female 05/31/2023 8:26 AM AUTOMOTIVE FUEL SYSTEMS CONVERTER Sexual Orientation Straight 05/31/2023 8: 26 AM AUTOMOTIVE FUEL SYSTEMS CONVERTER documented as of this encounter Progress Notes * Akosua Liz D.N.P., R.N., O.C.N. - 06/20/2023 3:00 PM CST INTEGRATIVE ONCOLOGY NURSE FOLLOW UP NOTE Tony Cota is seen in the [facility] for a nurse follow [...] Liz DNP, RN, ONC [facility]ative [facility] MOTIVE FUEL SYSTEMS CONVERTER documented in this encounter Plan of Treatment Upcoming Encounters Date Type Department Care Team (Late st Contact Info) Description 08/19/2023 6:40 AM AUTOMOTIVE FUEL SYSTEMS CONVERTER Appointment Department of Laboratory Medicine and Pathology, [address] [phone] Pérez Zuniga M.D., Ph.D. [address] [place] [phone] 08/19/2023 7:00 AM AUTOMOTIVE FUEL SYSTEMS CONVERTER Ancillary Procedure Department of Cardiovascular Medicine in [address] [phone] Pérez Zuniga M.D., Ph.D. [address] [place] [phone] 08/19/2023 9:00 AM AUTOMOTIVE FUEL SYSTEMS CONVERTER Appointment Department of Radiology, [facility] in [address] [phone] Pérez Zuniga M.D., Ph.D. [address] [place] [phone] 08/19/2023 3:40 PM AUTOMOTIVE FUEL SYSTEMS CONVERTER Office Visit Department of Oncology in [place], [place] [address] [place] [phone] Zhane Granados APRN, C.N.P. [address] [place] [phone] 08/21/2023 10:15 AM AUTOMOTIVE FUEL SYSTEMS CONVERTER Clinical Support Department of Palliative Care in [place], [place] [address] [place] [phone] Serenity Kelsey, PKarin-C. [address] [place] [phone] Meka Rinaldi D.N.P., R.N., [facility] documented as of this encounter Visit Diagnoses Not on filedocumented in this encounter Additional Health Concerns Infection Onset Date Last Indicated Resolved Time Protective Environment 06/04/2023 06/04/2023 documented as of this encounter Care Teams Rubble Placer Relationship Specialty Start Date End Date Elsewhere, Pcp PCP - General Family Medicine 06/17/23 documented as of this encounter
--- OUTSIDE RECORDS SUMMARY | 2023-08-09 19:02 | XMS_ITS | Encounter Summary ---
Author Name Unknown Organization [facility] Address [address] [place] [address] Care Team Providers Care Instructor Watch Assembly Name Role Phone Elsewhere, Pcp Primary Care Provider Unavailabl e Reason for Visit * Reason Onset Date Comments Redirect Prescriptions 07/01/2023 Encounter Details Date Type Department Care Team (Latest Contact Info) Description 07/01/2023 Clinical Communication [facility] [address] [place] [phone] Cherelle Brooks C.Ph.T. [address] [place] [phone] Redirect Prescriptions Social History Tobacco Use Types [...] Sex Assigned at Female 05/31/2023 8:26 AM ECOLOGICAL TECHNICAL OFFICER Gender Identity Female 05/31/2023 8:26 AM ECOLOGICAL TECHNICAL OFFICER Sexual Orientation Straight 05/31/2023 8: 26 AM ECOLOGICAL TECHNICAL OFFICER documented as of this encounter Miscellaneous Notes * Addendum Note - Armani Nielson M.D., Ph.D. - 07/02/2023 3:46 PM ECOLOGICAL TECHNICAL OFFICER Addended by: ARMANI NIELSON on: 07/02/2023 03:46 PM Modules accepted: Orders OGICAL TECHNICAL OFFICER documented in this encounter Plan of Treatment Upcoming Encounters Date Type Department Care Team (Late st Contact Info) Description 08/19/2023 6:40 AM ECOLOGICAL TECHNICAL OFFICER Appointment Department of Laboratory Medicine and Pathology, [facility] in [place], [place] [address] [place] [phone] Armani Nielson M.D., Ph.D. [address] [place] [phone] 08/19/2023 7:00 AM ECOLOGICAL TECHNICAL OFFICER Ancillary Procedure Department of Cardiovascular Medicine in [address] [phone] Armani Nielson M.D., Ph.D. [address] [place] [phone] 08/19/2023 9:00 AM ECOLOGICAL TECHNICAL OFFICER Appointment Department of Radiology, [facility] in [place], [place] [address] [place] [phone] Armani Nielson M.D., Ph.D. [address] [place] [phone] 08/19/2023 3:40 PM ECOLOGICAL TECHNICAL OFFICER Office Visit Department of Oncology in [place], [place] [address] [place] [phone] Zhane Granados, GAIL, C.N.P. [address] [place] [phone] 08/21/2023 10:15 AM ECOLOGICAL TECHNICAL OFFICER Clinical Support Department of Palliative Care in [place], [place] 200 [place] [address] Serenity Kelsey P.A.-C. 200 [place] [phone] Meka Rinaldi D.N.P., R.N., [facility] documented as of this encounter Visit Diagnoses Not on filedocumented in this encounter Additional Health Concerns Infection Onset Date Last Indicated Resolved Time Protective Environment 06/04/2023 06/04/2023 documented as of this encounter Care Teams Instructor Watch Assembly Relationship Specialty Start Date End Date Elsewhere, Pcp PCP - General Family Medicine 06/17/23 documented as of this encounter
--- OUTSIDE RECORDS SUMMARY | 2023-08-09 19:02 | XMS_ITS | Encounter Summary ---
Author Name Unknown Organization [facility] Address [address] [place] [address] Care Team Providers Care Tanning Wheel Filler Name Role Phone Elsewhere, Pcp Primary Care Provider Unavailabl e Reason for Referral * Outpatient (Routine) - Authorized Specialty Diagnoses / Procedures Referred By Mikki feliciano Referred To Contact Palliative Medicine Diagnoses Melanoma Trunk (HCC) Marija Olivas APRN, C.N.P., M.S.N. [address] [place] [phone] [facility] Referral ID Status Reason Start Date Expiration Date V isits Requested Visits Authorized [id number] Authorized 07/04/2023 07/03/2026 1 1 Scheduling Instructions With oncology appts LANE COVERER Encounter Details Date Type Department Care Team (Late st Contact Info) Description 07/04/2023 Clinical Communication Department of Palliative Care in [place], [place] [address] [place] [phone] Inés Wiley R.N. [address] [place] [phone] Social History Tobacco Use Types Packs/Day Years [...] your living situation today? I have a [facility] place to live 07/10/2023 Sex and Gender Information Value Date Recorded Sex Assigned at Female 05/31/2023 8:26 AM AIRPLANE COVERER Gender Identity Female 05/31/2023 8:26 AM AIRPLANE COVERER Sexual Orientation Straight 05/31/2023 8: 26 AM AIRPLANE COVERER documented as of this encounter Plan of Treatment Upcoming Encounters Date Type Department Care Team (Late st Contact Info) Description 08/19/2023 6:40 AM AIRPLANE COVERER Appointment Department of Laboratory Medicine and Pathology, [facility] in [place], [place] [address] [place] [phone] Pérez Zuniga M.D., Ph.D. [address] [place] [phone] 08/19/2023 7:00 AM AIRPLANE COVERER Ancillary Procedure Department of Cardiovascular Medicine in [place], [place] [address] [place] [phone] Pérez Zuniga M.D., Ph.D. [address] [place] [phone] 08/19/2023 9:00 AM AIRPLANE COVERER Appointment Department of Radiology, [facility] in [place], [place] [address] [place] [phone] Pérez Zuniga M.D., Ph.D. [address] [place] [phone] 08/19/2023 3:40 PM AIRPLANE COVERER Office Visit Department of Oncology in [address] [phone] Zhane Granados APRN, C.N.P. [address] [place] [phone] 08/21/2023 10:15 AM AIRPLANE COVERER Clinical Support Department of Palliative Care in [address] [phone] Serenity Kelsey, P.A.-C. [address] [place] [phone] Meka Rinaldi D.N.P., R.N., [facility] Scheduled Referrals Name Type Priority Associated Diagnoses Order Schedule Palliative Care nurse therapy visit (clinic) Outpatient Referral Routine Melanoma Trunk (HCC) Expected: 08/01/2023, Expires: 10/02/2024 documented as of this encounter Visit Diagnoses Diagnosis Melanoma Trunk (HCC)- Primary documented in this encounter Additional Health Concerns Infection Onset Date Last Indicated Resolved Time Protective Environment 06/04/2023 06/04/2023 documented as of this encounter Care Teams Tanning Wheel Filler Relationship Specialty Start Date End Date Elsewhere, Pcp PCP - General Family Medicine 06/17/23 documented as of this encounter
--- OUTSIDE RECORDS SUMMARY | 2023-08-09 19:02 | XMS_ITS | Encounter Summary ---
Author Name Unknown Organization [facility] Address [address] [place] [address] Care Team Providers Care Feedmobile Driver Name Role Phone Elsewhere, Pcp Primary Care Provider Unavailabl e Reason for Referral * Outpatient (Routine) - Closed Specialty Diagnoses / Procedures Referred By Contac t Referred To Contact Palliative Medicine Valentine Kelsey M.D., M.S. 200 [place] [phone] [facility] Referral ID Status Reason Start Date Expiration Date Visits Re quested Visits Authorized [id number] Closed 07/01/2023 06/30/2026 [address] Kelsey ONAL TRUCK DRIVER * Outpatient (Routine) - Closed Specialty Diagnoses / Procedures Referred By Contsweetie t Referred To Contact Palliative Medicine Diagnoses Melanoma Trunk (HCC) Nausea Valentine Kelsey M.D., M.S. [address] [place] [phone] [facility] Referral ID Status Reason Start Date Expiration Date Visits Re quested Visits Authorized [id number] Closed 07/01/2023 06/30/2026 1 1 Scheduling Instructions If can coordinate with accupressure ONAL TRUCK DRIVER Reason for Visit * Outpatient (Routine) - Closed Specialty Diagnoses / Procedures Referred By Mikki feliciano Referred To Contact Palliative Medicine Valentine Kelsey M.D., M.S. [address] [place] [phone] [facility] Referral ID Status Reason Start Date Expiration Date Visits Re quested Visits Authorized [id number] Closed 06/21/2023 06/20/2026 1 1 Encounter Details Date Type Department Care Team (Late st Contact Info) Description 07/01/2023 3:00 PM REGIONAL TRUCK DRIVER Telemedicine Department of Palliative Care in [place], [place] [address] [place] [phone] Valentine Kelsey M.D., M.S. [address] [place] [phone] Melanoma Trunk (HCC) (Primary Dx); Nausea; Pain [...] Assigned at Female 05/31/2023 8:26 AM REGIONAL TRUCK DRIVER Gender Identity Female 05/31/2023 8:26 AM REGIONAL TRUCK DRIVER Sexual Orientation Straight 05/31/2023 8: 26 AM REGIONAL TRUCK DRIVER documented as of this encounter Progress Notes * Valentine Kelsey M.D., M.S. - 07/01/2023 3:00 PM CST SUBJECTIVE CHIEF COMPLAINT/REASON FOR VISIT Tony Cota is a 47 y.o. woman from [place] with Stage IV melanoma metastatic to [...] Cota is a 47 y.o. woman from [place], [place] with Stage IV melanoma metastatic to [...] related to controlled substance prescribing: Melanoma [place] FARM MANAGER Review: We have reviewed the patient's record in the [place] prescription monitoring program 07/01/2023. Opioid Toxicity Review: [...] technology by Valentine Kelsey M.D., M.S. in [facility] to the patient in Patient's Home Valentine Kelsey M.D., M.S. ONAL TRUCK DRIVER documented in this encounter Plan of Treatment Upcoming Encounters Date Type Department Care Team (Late st Contact Info) Description 08/19/2023 6:40 AM REGIONAL TRUCK DRIVER Appointment Department of Laboratory Medicine and Pathology, [facility], in [place], [place] [address] [place] [phone] Pérez Zuniga M.D., Ph.D. [address] [place] [phone] 08/19/2023 7:00 AM REGIONAL TRUCK DRIVER Ancillary Procedure Department of Cardiovascular Medicine in [place], [place] [address] [place] [phone] Pérez Zuniga M.D., Ph.D. [address] [place] [phone] 08/19/2023 9:00 AM REGIONAL TRUCK DRIVER Appointment Department of Radiology, [facility], in [place], [place] [address] [place] [phone] Pérez Zuniga M.D., Ph.D. [address] [place] [phone] 08/19/2023 3:40 PM REGIONAL TRUCK DRIVER Office Visit Department of Oncology in [place], [place] [address] [place] [phone] Zhane Granados APRN, C.N.P. [address] [place] [phone] 08/21/2023 10:15 AM REGIONAL TRUCK DRIVER Clinical Support Department of Palliative Care in [place], [place] [address] [place] [phone] Serenity Kelsey, P.A.-C. [address] [place] [phone] Meka Rinaldi D.N.P., R.N., [facility] Scheduled Referrals Name Type Priority Associated [...] documented as of this encounter Care Teams Feedmobile Driver Relationship Specialty Start Date End Date Elsewhere, Pcp PCP - General Family Medicine 06/17/23 documented as of this encounter
--- OUTSIDE RECORDS SUMMARY | 2023-08-09 19:02 | XMS_ITS | Encounter Summary ---
Author Name Unknown Organization [facility] Address [address] [place] [address] Care Team Providers Care Customer Sales Consultant Name Role Phone Elsewhere, Pcp Primary Care Provider Unavailabl e Encounter Details Date Type Department Care Team (Late st Contact Info) Description 07/10/2023 Orders Only Department of Ophthalmology in [place], [place] [address] [place] [address] Ani Bashir [address] [place] [address] Social History Tobacco Use Types Packs/Day Years Used Date Smoking Tobacco: Never Passive Smoke Exposure: Never Smokeless Tobacco: Never Alcohol Use Standard Drinks/Week Comments Not Currently 6 (1 standard drink = 0.6 oz pur e alcohol) Occasional C Utilities Answer Date Recorded In the past 12 months has 9Cookies, gas, oil, or water [employer] threatened to shut off services in your [...] Assigned at Female 05/31/2023 8:26 AM EMERGENCY MEDICINE MEDICAL DIRECTOR Gender Identity Female 05/31/2023 8:26 AM EMERGENCY MEDICINE MEDICAL DIRECTOR Sexual Orientation Straight 05/31/2023 8: 26 AM EMERGENCY MEDICINE MEDICAL DIRECTOR documented as of this encounter Plan of Treatment Upcoming Encounters Date Type Department Care Team (Late st Contact Info) Description 08/19/2023 6:40 AM EMERGENCY MEDICINE MEDICAL DIRECTOR Appointment Department of Laboratory Medicine and Pathology, [facility] in [place], [place] 200 [place] [address] Pérez Zuniga M.D., Ph.D. [address] [place] [phone] 08/19/2023 7:00 AM EMERGENCY MEDICINE MEDICAL DIRECTOR Ancillary Procedure Department of Cardiovascular Medicine in [place], [place] 200 [place] [address] Pérez Zuniga M.D., Ph.D. [address] [place] [phone] 08/19/2023 9:00 AM EMERGENCY MEDICINE MEDICAL DIRECTOR Appointment Department of Radiology, [facility], in [place], [place] [address] [place] [address] Pérez Zuniga M.D., Ph.D. [address] [place] [phone] 08/19/2023 3:40 PM EMERGENCY MEDICINE MEDICAL DIRECTOR Office Visit Department of Oncology in [place], [place] [address] [place] [phone] Zhane Granados APRN, C.N.P. [address] [place] [phone] 08/21/2023 10:15 AM EMERGENCY MEDICINE MEDICAL DIRECTOR Clinical Support Department of Palliative Care in [place], [place] [address] [place] [phone] Serenity Kelsey, P.A.-C. [address] [place] [address] [phone] Meka Rinaldi D.N.P., R.N., [facility] documented as of this encounter Visit Diagnoses Not on filedocumented in this encounter Additional Health Concerns Infection Onset Date Last Indicated Resolved Time Protective Environment 06/04/2023 06/04/2023 documented as of this encounter Care Teams Customer Sales Consultant Relationship Specialty Start Date End Date Elsewhere, Pcp PCP - General Family Medicine 06/17/23 documented as of this encounter
--- OUTSIDE RECORDS SUMMARY | 2023-08-09 19:02 | XMS_ITS | Encounter Summary ---
Author Name Unknown Organization [facility] Address [address] [place] [address] Care Team Providers Care Baseball Glove Stuffer Name Role Phone Elsewhere, Pcp Primary Care Provider Unavailabl e Reason for Visit * Outpatient (Routine) - Closed Specialty Diagnoses / Procedures Referred By Contsweetie t Referred To Contact Palliative Medicine Diagnoses Melanoma Trunk (HCC) Nausea Valentine Kelsey M.D., M.S. [address] [place] [phone] [facility] Referral ID Status Reason Start Date Expiration Date Visits Re quested Visits Authorized [id number] Closed 07/01/2023 06/30/2026 1 1 Encounter Details Date Type Department Care Team (Latest Contact Info) Description 07/04/2023 10:30 AM [facility] Clinical Support Department of Palliative Care in [place], [place] [address] [place] [phone] Valentine Kelsey M.D., M.S. [address] [place] [address] [phone] Inés Wiley R.N. [address] [place] [phone] Melanoma Trunk (HCC); Nausea Social History Tobacco [...] Sex Assigned at Female 05/31/2023 8:26 AM LOG HANDLER Gender Identity Female 05/31/2023 8:26 AM LOG HANDLER Sexual Orientation Straight 05/31/2023 8: 26 AM LOG HANDLER documented as of this encounter Progress Notes [...] Gastrointestinal Acupoints used: Esophagus, Liver, [place] [employer] [place], Spleen, and Stomach Device used: Titanium Ear [...] per day for best results. Acupressure Booklet [id number], Aromatherapy Safety [id number] , and Essential Oil Patient Education [id number] were provided and reviewed with the patient [...] Palliative Care Nurse [facility] HANDLER documented in this encounter Plan of Treatment Upcoming Encounters Date Type Department Care Team (Late st Contact Info) Description 08/19/2023 6:40 AM LOG HANDLER Appointment Department of Laboratory Medicine and Pathology, [place], [place] [address] [place] [phone] Pérez Zuniga M.D., Ph.D. [address] [place] [phone] 08/19/2023 7:00 AM LOG HANDLER Ancillary Procedure Department of Cardiovascular Medicine in [place], [place] [address] [place] [phone] Pérez Zuniga M.D., Ph.D. [address] [place] [phone] 08/19/2023 9:00 AM LOG HANDLER Appointment Department of Radiology, [place], in [place], [place] [address] [place] [phone] Pérez Zuniga M.D., Ph.D. [address] [place] [phone] 08/19/2023 3:40 PM LOG HANDLER Office Visit Department of Oncology in [place], [place] [address] [place] [phone] Zhane Granados, GAIL, C.N.P. [address] [place] [phone] 08/21/2023 10:15 AM LOG HANDLER Clinical Support Department of Palliative Care in [place], [place] [address] [place] [phone] Serenity Kelsey, P.A.-C. [address] [place] [phone] Meka Rinaldi D.N.P., R.N., [facility] documented as of this encounter Visit Diagnoses Diagnosis Melanoma Trunk (HCC) Nausea documented in this encounter Additional Health Concerns Infection Onset Date Last Indicated Resolved Time Protective Environment 06/04/2023 06/04/2023 documented as of this encounter Care Teams Baseball Glove Stuffer Relationship Specialty Start Date End Date Elsewhere, Pcp PCP - General Family Medicine 06/17/23 documented as of this encounter
--- OUTSIDE RECORDS SUMMARY | 2023-08-09 19:02 | XMS_ITS | Encounter Summary ---
Author Name Unknown Organization [facility] Address [address] [place] [address] Care Team Providers Care Pickle Cutter Name Role Phone Elsewhere, Pcp Primary Care Provider Unavailabl e Reason for Referral * Outpatient (Routine) - Closed Specialty Diagnoses / Procedures Referred By Mikki t Referred To Contact Ophthalmology Phi Palm M.D., Ph.D. [address] [place] [phone] [facility] Referral ID Status Reason Start Date Expiration Date Visits Re quested Visits Authorized [id number] Closed 07/05/2023 07/04/2026 [address] Larose CTOR OF SPORTS PERFORMANCE Encounter Details Date Type Department Care Team (Latest Contact Info) Description 07/05/2023 2:30 PM DIRECTOR OF SPORTS PERFORMANCE Comprehensive Visit Department of Ophthalmology in [place], [place] [address] [place] [phone] Wolfgang Larose M.D. [address] [place] [phone] Hemorrhage Retinal Bilateral (Primary Dx) Social History [...] Sex Assigned at Female 05/31/2023 8:26 AM DIRECTOR OF SPORTS PERFORMANCE Gender Identity Female 05/31/2023 8:26 AM DIRECTOR OF SPORTS PERFORMANCE Sexual Orientation Straight 05/31/2023 8: 26 AM DIRECTOR OF SPORTS PERFORMANCE documented as of this encounter Progress Notes * Phi Palm M.D., Ph.D. - 07/05/2023 2:30 PM CST # Retinal hemorrhage, both eyes [facility] seeing for Dr. Larose to expedite care in [place] She had an asymptomatic visit to [facility] yesterday and was found to have [...] next available. She will be back in [place] Jul 17. Will request photography then. She will call us for any visualsymptoms in the interim. # Metastatic melanoma Dabrafenib at 75 QAM + 150 QPM and Trametinib at 2 mg QD, doing well with DXM 1 mg BID. [employer]OR OF SPORTS PERFORMANCE documented in this encounter Plan of Treatment Upcoming Encounters Date Type Department Care Team (Late st Contact Info) Description 08/19/2023 6:40 AM DIRECTOR OF SPORTS PERFORMANCE Appointment Department of Laboratory Medicine and Pathology, [facility], in [place], [place] [address] [place] [phone] Pérez Zuniga M.D., Ph.D. [address] [place] [phone] 08/19/2023 7:00 AM DIRECTOR OF SPORTS PERFORMANCE Ancillary Procedure Department of Cardiovascular Medicine in [place], [place] [address] [place] [phone] Pérez Zuniga M.D., Ph.D. [address] [place], [place] [phone] 08/19/2023 9:00 AM DIRECTOR OF SPORTS PERFORMANCE Appointment Department of Radiology, [facility] in [place], [place] [address] [place] [phone] Pérez Zuniga M.D., Ph.D. [address] [place] [phone] 08/19/2023 3:40 PM DIRECTOR OF SPORTS PERFORMANCE Office Visit Department of Oncology in [address] [phone] Zhane Granados, GAIL, C.N.P. [address] [place] [phone] 08/21/2023 10:15 AM DIRECTOR OF SPORTS PERFORMANCE Clinical Support Department of Palliative Care in [address] [phone] Serenity Kelsey, P.A.-C. [address] [place] [phone] Meka Rinaldi D.N.P., R.N., [facility] Scheduled Referrals Name Type Priority Associated Diagnoses Order Schedule Ophthalmology office visit (clinic) Outpatient Referral Routine Expected: 07/17/2023, Expires: 10/03/2024 documented as of this encounter Results * Fluorescein Angiography - OU - Both Eyes (07/17/2023 12:55 PM DIRECTOR OF SPORTS PERFORMANCE) Narrative OPHTHALMOLOGY IMAGING EXAM - 07/17/2023 7:03 PM DIRECTOR OF SPORTS PERFORMANCE Right Eye Dye used is fluorescein. Fluorescein dose given is normal. Left Eye Dye used is fluorescein. Fluorescein dose given is normal. Notes Interpretation in note Phi Palm M.D., Ph.D. TAYLA PHOTOSELVIN PEÑA Performing Organization Address City/[facility]/ZIP Co de Phone Number OPHTHALMOLOGY IMAGING EXAM * Fundus Photos - OU - Both Eyes (07/17/2023 11:52 AM DIRECTOR OF SPORTS PERFORMANCE) Narrative OPHTHALMOLOGY IMAGING EXAM - 07/17/2023 7:03 PM DIRECTOR OF SPORTS PERFORMANCE Right Eye Field of view is standard view. Fundus photo type obtained is Color. Left Eye Field of view is standard view. Fundus photo type obtained is Color. Notes Interpretation in note Phi Palm M.D., Ph.D. TAYLA PHOTOSELVIN PEÑA Performing Organization Address [facility] de Phone Number OPHTHALMOLOGY IMAGING EXAM documented in this encounter Visit Diagnoses Diagnosis Hemorrhage Retinal Bilateral- Primary Hemorrhage Retinal Bilateral Hemorrhage Retinal Bilateral documented in this encounter Additional Health Concerns Infection Onset Date Last Indicated Resolved Time Protective Environment 06/04/2023 06/04/2023 documented as of this encounter Care Teams Pickle Cutter Relationship Specialty Start Date End Date Elsewhere, Pcp PCP - General Family Medicine 06/17/23 documented as of this encounter
--- OUTSIDE RECORDS SUMMARY | 2023-08-09 19:02 | XMS_ITS | Encounter Summary ---
Author Name Unknown Organization [facility] Address [address] [place] [address] Care Team Providers Care Hemmer Chainstitch Name Role Phone Elsewhere, Pcp Primary Care Provider Unavailabl e Reason for Referral * Outpatient (Routine) - Authorized Specialty Diagnoses / Procedures Referred By Contac t Referred To Contact Diagnoses Melanoma Trunk (HCC) Nausea Procedures ECG 12 Lead Pérez Zuniga M.D., Ph.D. [address] [place] [phone] [facility] Referral ID Status Reason Start Date Expiration Date V isits Requested Visits Authorized [id number] Authorized 07/04/2023 07/03/2024 1 1 AGENT * MRI/CAT/PET Scan (Routine) - Authorized Specialty Diagnoses / Procedures Referred By Contac t Referred To Contact Diagnoses Melanoma Trunk (HCC) Nausea Procedures PET CT Skull to Thigh FDG Pérez Zuniga M.D., Ph.D. [address] [place] [phone] [facility] Referral ID Status Reason Start Date Expiration Date V isits Requested Visits Authorized [id number] Authorized 07/04/2023 07/03/2024 1 1 AGENT * Outpatient (Routine) - Authorized Specialty Diagnoses / Procedures Referred By iMkki feliciano Referred To Contact Oncology Pérez Zuniga M.D., Ph.D. [address] [place] [phone] [facility] Referral ID Status Reason Start Date Expiration Date V isits Requested Visits Authorized [id number] Authorized 07/04/2023 07/03/2026 1 1 AGENT Reason for Visit * Outpatient (Routine) - Closed Specialty Diagnoses / Procedures Referred By Mikki feliciano Referred To Contact Oncology Pérez Zuniga M.D., Ph.D. [address] [place] [phone] [facility] Referral ID Status Reason Start Date Expiration Date Visits Re quested Visits Authorized [id number] Closed 06/20/2023 06/19/2026 1 1 Encounter Details Date Type Department Care Team (Late st Contact Info) Description 07/04/2023 12:20 PM GATE AGENT Office Visit Department of Oncology in [place], [place] [address] [place] [phone] Pérez Zuniga M.D., Ph.D. [address] [place] [phone] Melanoma Trunk (HCC) (Primary Dx); Nausea Social [...] Sex Assigned at Female 05/31/2023 8:26 AM GATE AGENT Gender Identity Female 05/31/2023 8:26 AM GATE AGENT Sexual Orientation Straight 05/31/2023 8: 26 AM GATE AGENT documented as of this encounter Progress Notes [...] and/or coordination of care as described above. AGENT documented in this encounter Plan of Treatment Upcoming Encounters Date Type Department Care Team (Late st Contact Info) Description 08/19/2023 6:40 AM GATE AGENT Appointment Department of Laboratory Medicine and Pathology, [facility] in [place], [place] [address] [place] [phone] Pérez Zuniga M.D., Ph.D. [address] [place] [phone] 08/19/2023 7:00 AM GATE AGENT Ancillary Procedure Department of Cardiovascular Medicine in [place], [place] [address] [place] [phone] Pérez Zuniga M.D., Ph.D. [address] [place] [phone] 08/19/2023 9:00 AM GATE AGENT Appointment Department of Radiology, [facility] in [place], [place] [address] [place] [phone] Pérez Zuniga M.D., Ph.D. [address] [place] [phone] 08/19/2023 3:40 PM GATE AGENT Office Visit Department of Oncology in [place], [place] [address] [place] [phone] Zhane Granados APRN, C.N.P. [address] [place] [phone] 08/21/2023 10:15 AM GATE AGENT Clinical Support Department of Palliative Care in [place], [place] [address] [place] [phone] Serenity Kelsey PSantoshASantosh-Price [address] [place] [phone] Meka Rinaldi D.N.P., R.N., [facility] Scheduled Orders Name Type Priority [...] Expected: 08/01/2023 (Approximate), Expires: 07/04/2024 Thyroid Function [facility] Routine Melanoma Trunk (HCC) Nausea Expected: [...] documented as of this encounter Care Teams Hemmer Chainstitch Relationship Specialty Start Date End Date Elsewhere, Pcp PCP - General Family Medicine 06/17/23 documented as of this encounter
--- OUTSIDE RECORDS SUMMARY | 2023-08-09 19:02 | XMS_ITS | Encounter Summary ---
Author Name Unknown Organization [facility] Address [address] [place] [address] Care Team Providers Care Patient Placement Coordinator Name Role Phone Elsewhere, Pcp Primary Care Provider Unavailabl e Reason for Referral * Outpatient (Routine) - Authorized Specialty Diagnoses / Procedures Referred By Contac t Referred To Contact Dermatology Anh Lee M.D. [address] [place] [phone] [facility] Referral ID Status Reason Start Date Expiration Date V isits Requested Visits Authorized [id number] Authorized 07/17/2023 07/16/2026 1 1 BILITATION DIRECTOR * Outpatient (Routine) - Authorized Specialty Diagnoses / Procedures Referred By Contac t Referred To Contact Clinical Genomics Diagnoses Dermatoheliosis Anh Lee M.D. 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 [address] [place] [phone] [facility] Referral ID Status Reason Start Date Expiration Date Visits Re quested Visits Authorized [id number] Closed 05/22/2023 05/21/2024 1 1 Encounter Details Date Type Department Care Team (Latest Contact Info) Description 07/17/2023 4:15 PM REHABILITATION DIRECTOR Comprehensive Visit Department of Dermatology in [place], [place] [address] [place] [phone] Naida Mejia P.A.-C., M.S. [address] [place] [phone] Anh Lee M.D. [address] [place] [phone] Nevi Multiple (Primary Dx); Melanoma Trunk (HCC); Secondary Malignant Neoplasm Bone (HCC); Screening Examination Skin Cancer; Dermatoheliosis; Tumor Skin Uncertain Behavior Social History Tobacco Use Types Packs/Day Years Used Date Smoking Tobacco: Never Passive Smoke Exposure: Never Smokeless Tobacco: Never Alcohol Use Standard Drinks/Week Comments Not Currently 6 (1 standard drink = 0.6 oz pur e alcohol) Occasional [facility] Utilities Answer Date Recorded In the past 12 months has Get In, oil, or water [employer] threatened to shut off services in your [...] your living situation today? I have a [facility] place to live 07/10/2023 Sex and Gender Information Value Date Recorded Sex Assigned at Female 05/31/2023 8:26 AM REHABILITATION DIRECTOR Gender Identity Female 05/31/2023 8:26 AM REHABILITATION DIRECTOR Sexual Orientation Straight 05/31/2023 8: 26 AM REHABILITATION DIRECTOR documented as of this encounter Consult Notes [...] [facility]. The patient is new to [facility]. Today, she reports that she had a mole growing in the whites of her eye in high school. This was removed, and found to be benign, with no recurrence over yearsof ophthalmologic follow up. No other pigmented lesions have been biopsied. Last skin check by a betting agency manager was approximately 8 years ago. She states [...] the patient by letter. Patient given pamphlet [id number]. #5 Skin tumor uncertain behavior, left upper [...] behalf by ROSHAN Wilcox, a trained medical physics teacher. The creation of this record is based on the scribe remotely listening to the visit and the provider's statements to them. This document has been checked and approved by the attending provider. Scribed for Anh Lee M.D. by ROSHAN Wilcox, on 07/17/2023, 11:10 AM REHABILITATION DIRECTOR. BILITATION DIRECTOR documented in this encounter Plan of Treatment Upcoming Encounters Date Type Department Care Team (Late st Contact Info) Description 08/19/2023 6:40 AM REHABILITATION DIRECTOR Appointment Department of Laboratory Medicine and Pathology, [facility] in [address] [phone] Pérez Zuniga M.D., Ph.D. [address] [place] [phone] 08/19/2023 7:00 AM REHABILITATION DIRECTOR Ancillary Procedure Department of Cardiovascular Medicine in [address] [phone] Pérez Zuniga M.D., Ph.D. [address] [place] [phone] 08/19/2023 9:00 AM REHABILITATION DIRECTOR Appointment Department of Radiology, [facility] in [place], [place] [address] [place] [phone] Pérez Zuniga M.D., Ph.D. [address] [place] [phone] 08/19/2023 3:40 PM REHABILITATION DIRECTOR Office Visit Department of Oncology in [place], [place] [address] [place] [phone] Zhane Granados APRN, C.N.P. [address] [place] [phone] 08/21/2023 10:15 AM REHABILITATION DIRECTOR Clinical Support Department of Palliative Care in [place], [place] [address] [place] [phone] Serenity Kelsey, PSantoshASantosh-CSantosh [address] [place] [phone] Meka Rinaldi D.N.P., R.N., [facility] Scheduled Referrals Name Type Priority Associated Diagnoses Order Schedule Clinical Genomics - General genetics consult (clinic) Outpatient Referral Routine Dermatoheliosis Expected: 07/17/2023 (Approximate), Expires: 10/15/2024 Dermatology office visit (clinic) Outpatient Referral Routine Expected: 10/16/2023 (Approximate), Expires: 10/15/2024 documented as of this encounter Procedures Procedure Name Priority Date/Time Associated Diagnosis Comments DERMATOPATHOLOGY Routine 07/17/2023 4:41 PM REHABILITATION DIRECTOR 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 07/22/2023 6:51 AM REHABILITATION DIRECTOR PDRM Gross Description Received in formalin labeled [...] A1. ??Grossed by JONATHAN. 07/22/2023 6:51 AM REHABILITATION DIRECTOR PDRM Interpretation FINAL DIAGNOSIS A. ??Right Shoulder - Anterior, Skin punch biopsy: Lentiginous compound nevus COMMENT Clinical note and photos reviewed. Diagnosis was made via digital imaging. A portion of the testing process was performed at [facility] site [id number]. 07/22/2023 6:51 AM REHABILITATION DIRECTOR PDRM Skin (Right Shoulder - Anterior) 07/17/2023 4:40 PM REHABILITATION DIRECTOR Anh Lee M.D. 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
--- OUTSIDE RECORDS SUMMARY | 2023-08-09 19:02 | XMS_ITS | Encounter Summary ---
Author Name Unknown Organization [facility] Address [address] [place] [address] Care Team Providers Care Nursing Education Consultant Name Role Phone Elsewhere, Pcp Primary Care Provider Unavailabl e Reason for Referral * Medication Prior Authorization - Closed Specialty Diagnoses / Procedures Referred By Mikki feliciano Referred To Contact Valentine Dolan M.D., M.S. [address] [place] [address] Referral ID Status Reason Start Date Expiration Date Visits Re quested Visits Authorized [id number] Closed 1 1 NGUAL MANAGER * Outpatient (Routine) - Closed Specialty Diagnoses / Procedures Referred By Mikki feliciano Referred To Contact Palliative Medicine Valentine Dolan M.D., M.S. [address] [place] [address] [facility] Referral ID Status Reason Start Date Expiration Date Visits Re quested Visits Authorized [id number] Closed 06/21/2023 06/20/2026 1 1 Scheduling Instructions For 07/[address] 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 [address] [place] [phone] [facility] Referral ID Status Reason Start Date Expiration Date Visits Re quested Visits Authorized [id number] Closed 06/04/2023 06/03/2024 1 1 Encounter Details Date Type Department Care Team (Latest Contact Info) Description 06/21/2023 8:30 AM BILINGUAL MANAGER Comprehensive Visit Department of Palliative Care in [place], [place] [address] [place] [phone] Pérez Zuniga M.D., Ph.D. [address] [place] [phone] Valentine Dolan M.D., M.S. [address] [place] [phone] Rachelle Oliver RSantoshNSantosh [address] [place] [phone] Melanoma Trunk (HCC); Secondary Malignant Neoplasm Bone [...] Sex Assigned at Female 05/31/2023 8:26 AM BILINGUAL MANAGER Gender Identity Female 05/31/2023 8:26 AM BILINGUAL MANAGER Sexual Orientation Straight 05/31/2023 8: 26 AM BILINGUAL MANAGER documented as of this encounter Last Filed Vital Signs Vital Sign Reading Time Taken Comments Blood Pressure 102/69 06/21/2023 8:26 AM BILINGUAL MANAGER Pulse 78 06/21/2023 8:26 AM BILINGUAL MANAGER Temperature 36.8 ??C (98.2 ??F) 06/21/2023 8:26 AM CS T Respiratory Rate - - Oxygen Saturation 100% 06/21/2023 8:26 AM BILINGUAL MANAGER Inhaled Oxygen Concentration - - Weight - - Height - - Body Mass Index - - documented in this encounter Patient Instructions * Patient Instructions* Valentine Dolan M.D., M.S. - 06/21/2023 8:30 AM BILINGUAL MANAGER You can adjust the timing of the [...] three times a day 6 hours apart. NGUAL MANAGER documented in this encounter Progress Notes * [...] Care: Care for People with Serious Illness [id number] and Integrative and Supportive Therapies for Palliative Care Patients [id number] provided at this visit. Standard Opioid education included: Medication specific education for Oxycodone and Xtampza Safe Management of Controlled Substances [id number] Important Information About Opioid Medication ZO5231 (page 7 opioid withdrawal) Treating Constipation Caused by Pain Medications [id number] Educational materials provided were: Integrative and Supportive Therapies for Palliative Care Patients [id number], Opioid Storage and Safety MC 7891-06, Palliative Care: Care for People with Serious Illness [id number], Re[facility] Integrative Medicine Program [place] AS6965-34, Safe Management of Controlled Substances KR1990 , and Treating Constipation Caused by Pain Medications [id number] Follow-up as per the consult note of Dr. Valentine Dolan 06/21 NGUAL MANAGER documented in this encounter Consult Notes * Valentine Dolan M.D., M.S. - 06/21/2023 8:30 AM CST SUBJECTIVE PRIMARY CARE PROVIDER ELSEWHERE, PCP Patient Care Team: Ondina Chávez M.D. as External Primary Care Physician (Family Medicine) REFERRING PROVIDER Pérez Znuiga M.D., Ph.D. [phone] REFERRING SERVICE Medical Oncology CHIEF COMPLAINT / REASON FOR CONSULT Tony Cota is a 47 y.o. woman from [place], [place] with Stage IV melanoma metastatic to [...] in original bottle. Social History: Lives in [place], [place] with her Francis and three children. 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 They have a 17-year-old daughter who is a senior in high school, a 15-year-old daughter who is a freshman, and a son who is 6th grade. Their families live in [place]. Tony's mother is currently living with them to care for the children and get them ready in the morning. CODE STATUS No Order REVIEW OF SYSTEMS As described in the history of present illness otherwise reviewed with patient and non-contributoryto the current encounter. [place] Scores Who completed this form?: Patient No [...] Date: 06/20/2023 Impression: There are no previous [facility] echocardiograms available for comparison. LEFT VENTRICLE:Normal [...] Cota is a 47 y.o. woman from [place], [place] with Stage IV melanoma metastatic to [...] with bone, pulmonary, lymph node metastases [place] MAINTENANCE ELECTRICIAN Review: We have reviewed the patient's record in the [place] prescription monitoring program 06/21/2023. Opioid Toxicity Review: [...] Tony will be notified of this adjustment. NGUAL MANAGER documented in this encounter Miscellaneous Notes * Addendum Note - Valentine Dolan M.D., M.S. - 06/21/2023 8:30 AM BILINGUAL MANAGER Addended by: VALENTINE DOLAN on: 06/24/2023 03:42 PM Modules accepted: Orders NGUAL MANAGER documented in this encounter Plan of Treatment Upcoming Encounters Date Type Department Care Team (Late st Contact Info) Description 08/19/2023 6:40 AM BILINGUAL MANAGER Appointment Department of Laboratory Medicine and Pathology, [facility] in [address] [phone] Pérez Zuniga M.D., Ph.D. [address] [place] [phone] 08/19/2023 7:00 AM BILINGUAL MANAGER Ancillary Procedure Department of Cardiovascular Medicine in [address] [phone] Pérez Zuniga M.D., Ph.D. [address] [place] [phone] 08/19/2023 9:00 AM BILINGUAL MANAGER Appointment Department of Radiology, [facility] in [address] [phone] Pérez Zuniga M.D., Ph.D. [address] [place] [phone] 08/19/2023 3:40 PM BILINGUAL MANAGER Office Visit Department of Oncology in [address] [phone] Zhane Granados APRN, C.N.P. [address] [place] [phone] 08/21/2023 10:15 AM BILINGUAL MANAGER Clinical Support Department of Palliative Care in [address] [phone] Serenity Dolan P.A.-C. 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
--- OUTSIDE RECORDS SUMMARY | 2023-08-09 19:02 | XMS_ITS | Encounter Summary ---
Author Name Unknown Organization [facility] Address [address] [place] [address] Care Team Providers Care Veterinarian Name Role Phone Elsewhere, Pcp Primary Care Provider Unavailabl e Encounter Details Date Type Department Care Team (Latest Contact Info) Description 07/04/2023 Clinical Communication Department of Ophthalmology in [place], [place] [address] [place] [phone] Provider, Unknown Social History Tobacco Use Types Packs/Day Years Used Date Smoking Tobacco: Never Passive Smoke Exposure: Never Smokeless Tobacco: Never Alcohol Use Standard Drinks/Week Comments Not Currently 6 (1 standard drink = 0.6 oz pur e alcohol) Occasional C Utilities Answer Date Recorded In the past 12 months has [facility] [employer], gas, oil, or water [employer] threatened to shut off services in your [...] your living situation today? I have a [facility] place to live 07/10/2023 Sex and Gender Information Value Date Recorded Sex Assigned at Female 05/31/2023 8:26 AM VICE PRESIDENT TAX Gender Identity Female 05/31/2023 8:26 AM VICE PRESIDENT TAX Sexual Orientation Straight 05/31/2023 8: 26 AM VICE PRESIDENT TAX documented as of this encounter Plan of Treatment Upcoming Encounters Date Type Department Care Team (Late st Contact Info) Description 08/19/2023 6:40 AM VICE PRESIDENT TAX Appointment Department of Laboratory Medicine and Pathology, [facility] in [place], [place] [address] [place] [phone] Pérez Zuniga M.D., Ph.D. [address] [place] [phone] 08/19/2023 7:00 AM VICE PRESIDENT TAX Ancillary Procedure Department of Cardiovascular Medicine in [place], [place] [address] [place] [phone] Pérez Zuniga M.D., Ph.D. [address] [place] [phone] 08/19/2023 9:00 AM VICE PRESIDENT TAX Appointment Department of Radiology, [facility] in [place], [place] [address] [place] [address] Pérez Zuniga M.D., Ph.D. [address] [place] [phone] 08/19/2023 3:40 PM VICE PRESIDENT TAX Office Visit Department of Oncology in [place], [place] [address] [place] [phone] Zhane Granados, GAIL, C.N.P. [address] [place] [phone] 08/21/2023 10:15 AM VICE PRESIDENT TAX Clinical Support Department of Palliative Care in [place], [place] [address] [place] [phone] Serenity Kelsey, P.A.-C. [address] [place] [phone] Meka Rinaldi D.N.P., R.N., [facility] documented as of this encounter Visit Diagnoses Not on filedocumented in this encounter Additional Health Concerns Infection Onset Date Last Indicated Resolved Time Protective Environment 06/04/2023 06/04/2023 documented as of this encounter Care Teams Veterinarian Relationship Specialty Start Date End Date Elsewhere, Pcp PCP - General Family Medicine 06/17/23 documented as of this encounter
--- OUTSIDE RECORDS SUMMARY | 2023-08-09 19:02 | XMS_ITS | Encounter Summary ---
Author Name Unknown Organization [facility] Address [address] [place] [address] Care Team Providers Care Gas Transfer Operator Name Role Phone Elsewhere, Pcp Primary Care Provider Unavailabl e Reason for Referral * Outpatient (Routine) - Closed Specialty Diagnoses / Procedures Referred By Mikki feliciano Referred To Contact Palliative Medicine Diagnoses Palliative Care Marija Olivas APRN, C.N.P., M.S.N. [address] [place] [phone] [facility] Referral ID Status Reason Start Date Expiration Date Visits Re quested Visits Authorized [id number] Closed 07/16/2023 07/15/2026 1 1 Scheduling Instructions Please schedule on Meka's personal calendar at 1 pm. Patient is aware. VIDEO visit. O VISUAL MANAGER Encounter Details Date Type Department Care Team (Late st Contact Info) Description 07/16/2023 Clinical Communication Department of Palliative Care in [place], [place] [address] [place] [phone] Meka Rinaldi D.N.P., R.N., [facility] Social History Tobacco Use Types Packs/Day Years Used Date Smoking Tobacco: Never Passive Smoke Exposure: Never Smokeless Tobacco: Never Alcohol Use Standard Drinks/Week Comments Not Currently 6 (1 standard drink = 0.6 oz pur e alcohol) Occasional [facility] Utilities Answer Date Recorded In the [...] Sex Assigned at Female 05/31/2023 8:26 AM AUDIO VISUAL MANAGER Gender Identity Female 05/31/2023 8:26 AM AUDIO VISUAL MANAGER Sexual Orientation Straight 05/31/2023 8: 26 AM AUDIO VISUAL MANAGER documented as of this encounter Miscellaneous Notes * Telephone Encounter - Meka Rinaldi D.N.P., NINI Farley - 07/16/2023 11:34 AM CST ----- Message from Jo-Ann Mariscal sent at 07/16/2023 11:23 AM AUDIO VISUAL MANAGER ----- Regarding: RE: Resilient Living Looks like we will need a new order for this. Please place order, I will watch for it. ----- Message ----- From: Meka Rinaldi D.N.P., NINI Farley Sent: 07/16/2023 10:58 AM AUDIO VISUAL MANAGER To: Rst Pal Scheduling Subject: Resilient Living Please reschedule resilient living visit to Saturday, 07/26 at 1 pm. Video visit. Tony is aware. Thank you! ----- Message ----- From: Marilu Parikh R.N., CHPN Sent: 07/09/2023 1:43 PM AUDIO VISUAL MANAGER To: Meka Rinaldi D.N.P., Martine lenny Jacobsen canceled Tony's RLP visit for 07/12. I sent her a portal message and let her know you would follow up on rescheduling when you are back in clinic! Thanks, Marilu O VISUAL MANAGER documented in this encounter Plan of Treatment Upcoming Encounters Date Type Department Care Team (Late st Contact Info) Description 08/19/2023 6:40 AM AUDIO VISUAL MANAGER Appointment Department of Laboratory Medicine and Pathology, [facility], in [place], [place] [address] [place] [phone] Pérez Zuniga M.D., Ph.D. [address] [place] [phone] 08/19/2023 7:00 AM AUDIO VISUAL MANAGER Ancillary Procedure Department of Cardiovascular Medicine in [place], [place] [address] [place] [phone] Pérez Zuniga M.D., Ph.D. [address] [place] [phone] 08/19/2023 9:00 AM AUDIO VISUAL MANAGER Appointment Department of Radiology, [facility], in [place], [place] [address] [place] [phone] Pérez Zuniga M.D., Ph.D. [address] [place] [phone] 08/19/2023 3:40 PM AUDIO VISUAL MANAGER Office Visit Department of Oncology in [place], [place] [address] [place] [phone] Zhane Granados APRN, C.N.P. [address] [place] [phone] 08/21/2023 10:15 AM AUDIO VISUAL MANAGER Clinical Support Department of Palliative Care in [place], [place] [address] [place] [phone] Serenity Kelsey, P.A.-C. [address] [place] [phone] Meka Rinaldi D.N.P., R.N., [facility] Scheduled Referrals Name Type Priority Associated Diagnoses Order Schedule Palliative Care nurse therapy visit (clinic) Outpatient Referral Routine Palliative Care Expected: 07/26/2023, Expires: 10/14/2024 documented as of this encounter Visit Diagnoses Diagnosis Palliative Care- Primary documented in this encounter Additional Health Concerns Infection Onset Date Last Indicated Resolved Time Protective Environment 06/04/2023 06/04/2023 documented as of this encounter Care Teams Gas Transfer Operator Relationship Specialty Start Date End Date Elsewhere, Pcp PCP - General Family Medicine 06/17/23 documented as of this encounter
--- OUTSIDE RECORDS SUMMARY | 2023-08-09 19:02 | XMS_ITS | Encounter Summary ---
Author Name Unknown Organization [facility] Address [address] [place] [phone] Care Team Providers Care Welder And Fitter Name Role Phone Elsewhere, Pcp Primary Care Provider Unavailabl e Reason for Visit * Reason Onset Date Comments Rx Denial 06/24/2023 XTAMPZA ER 9 MG CAPSULES Encounter Details Date Type Department Care Team (Latest Contact Info) Description 06/24/2023 Clinical Communication Department of Palliative Care in [place], [place] [address] [place] [phone] Valentine Kelsey M.D., M.S. [address] [place] [phone] Rx Denial (XTAMPZA ER 9 MG CAPSULES) [...] Sex Assigned at Female 05/31/2023 8:26 AM GAMING COMMISSIONER Gender Identity Female 05/31/2023 8:26 AM GAMING COMMISSIONER Sexual Orientation Straight 05/31/2023 8: 26 AM GAMING COMMISSIONER documented as of this encounter Miscellaneous Notes * Telephone Encounter - Rachelle Oliver R.N. - 06/24/2023 4:28 PM GAMING COMMISSIONER Medication changed to MS Contin per Dr. Kelsey NG COMMISSIONER * Telephone Encounter - Reyna Nelson I. [...] Release Rx: Open this encounter, go to [employer], and click on the medication. If the blue ???Release Rx?? button appears as an option, click to release the prescription. If the blue Release Rx button is not visible, the Rx has already been released to the pharmacy. If you have questions, please reply to Dina HILLS. Thank you, The OPPA Team NG COMMISSIONER documented in this encounter Plan of Treatment Upcoming Encounters Date Type Department Care Team (Late st Contact Info) Description 08/19/2023 6:40 AM GAMING COMMISSIONER Appointment Department of Laboratory Medicine and Pathology, [facility] in [place], [place] [address] [place] [address] Pérez Zuniga M.D., Ph.D. [address] [place] [phone] 08/19/2023 7:00 AM GAMING COMMISSIONER Ancillary Procedure Department of Cardiovascular Medicine in [place], [place] [address] [place] [phone] Pérez Zuniga M.D., Ph.D. [address] [place] [phone] 08/19/2023 9:00 AM GAMING COMMISSIONER Appointment Department of Radiology, [facility], in [place], [place] [address] [place] [address] Pérez Zuniga M.D., Ph.D. [address] [place] [phone] 08/19/2023 3:40 PM GAMING COMMISSIONER Office Visit Department of Oncology in [place], [place] [address] [place] [phone] Zhane Granados, PUMP ROOM OPERATOR, C.N.P. [address] [place] [phone] 08/21/2023 10:15 AM GAMING COMMISSIONER Clinical Support Department of Palliative Care in [place], [place] [address] [place] [phone] Serenity Kelsey, P.A.-C. [address] [place] [phone] Meka Rinaldi D.N.P., R.N., [facility] documented as of this encounter Visit Diagnoses Not on filedocumented in this encounter Additional Health Concerns Infection Onset Date Last Indicated Resolved Time Protective Environment 06/04/2023 06/04/2023 documented as of this encounter Care Teams Welder And Fitter Relationship Specialty Start Date End Date Elsewhere, Pcp PCP - General Family Medicine 06/17/23 documented as of this encounter
--- OUTSIDE RECORDS SUMMARY | 2023-08-09 19:02 | XMS_ITS | Encounter Summary ---
Author Name Unknown Organization [facility] Address [address] [place] [address] Care Team Providers Care Home Sales Service Professional Name Role Phone Elsewhere, Pcp Primary Care Provider Unavailabl e Reason for Visit * Reason Onset Date Comments Sx - retinal hemorrhaging 07/05/2023 Encounter Details Date Type Department Care Team (Latest Contact Info) Description 07/05/2023 Clinical Communication Department of Oncology in [place], [place] [address] [place] [phone] Anahy Amezcua, RSantoshN., O.C.N. [address] [place] [phone] Sx - retinal hemorrhaging Social History Tobacco [...] Sex Assigned at Female 05/31/2023 8:26 AM INDEPENDENT CROP CONSULTANT Gender Identity Female 05/31/2023 8:26 AM INDEPENDENT CROP CONSULTANT Sexual Orientation Straight 05/31/2023 8: 26 AM INDEPENDENT CROP CONSULTANT documented as of this encounter Miscellaneous Notes * Telephone Encounter - Efrain, Svetomir N, M.D., Ph.D. - 07/05/2023 8:52 AM CST I spoke to the patient. A routine eye exam at [facility] demonstrated minimal evidence of retinal pooling of [...] Cota was very appreciative of the call. PENDENT CROP CONSULTANT documented in this encounter Plan of Treatment Upcoming Encounters Date Type Department Care Team (Late st Contact Info) Description 08/19/2023 6:40 AM INDEPENDENT CROP CONSULTANT Appointment Department of Laboratory Medicine and Pathology, [place], [place] [address] [place] [phone] Pérez Zuniga M.D., Ph.D. [address] [place] [phone] 08/19/2023 7:00 AM INDEPENDENT CROP CONSULTANT Ancillary Procedure Department of Cardiovascular Medicine in [place], [place] [address] [place] [phone] Pérez Zuniga M.D., Ph.D. [address] [place] [phone] 08/19/2023 9:00 AM INDEPENDENT CROP CONSULTANT Appointment Department of Radiology, [facility] in [place], [place] [address] [place] [phone] Pérez Zuniga M.D., Ph.D. [address] [place] [phone] 08/19/2023 3:40 PM INDEPENDENT CROP CONSULTANT Office Visit Department of Oncology in [place], [place] [address] [place] [phone] Zhane Granados APRN, C.N.P. [address] [place] [phone] 08/21/2023 10:15 AM INDEPENDENT CROP CONSULTANT Clinical Support Department of Palliative Care in [place], [place] [address] [place] [phone] Serenity Kelsey, P.A.-C. [address] [place] [phone] Meka Rinaldi D.N.P., R.N., [facility] documented as of this encounter Visit Diagnoses Not on filedocumented in this encounter Additional Health Concerns Infection Onset Date Last Indicated Resolved Time Protective Environment 06/04/2023 06/04/2023 documented as of this encounter Care Teams Home Sales Service Professional Relationship Specialty Start Date End Date Elsewhere, Pcp PCP - General Family Medicine 06/17/23 documented as of this encounter
--- OUTSIDE RECORDS SUMMARY | 2023-08-09 19:03 | XMS_ITS | Encounter Summary ---
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 [address] [place] [address] [facility] Referral ID Status Reason Start Date Expiration Date Visits Re quested Visits Authorized [id number] Closed 06/04/2023 06/03/2024 1 1 Encounter Details Date Type Department Care Team (Latest Contact Info) Description 06/20/2023 12:07 PM VISITOR USE ASSISTANT - 06/20/2023 11:59 PM VISITOR USE ASSISTANT Hospital Encounter Department of Cardiovascular Diseases in [place], [place] [address] [place] [address] Pérez Zuniga M.D., Ph.D. [address] [place] [address] Melanoma Trunk (HCC); Secondary Malignant Neoplasm Bone (HCC); Other Long-Term Current Drug Therapy Discharge Disposition: Home or [...] Sex Assigned at Female 05/31/2023 8:26 AM VISITOR USE ASSISTANT Gender Identity Female 05/31/2023 8:26 AM VISITOR USE ASSISTANT Sexual Orientation Straight 05/31/2023 8: 26 AM VISITOR USE ASSISTANT documented as of this encounter Medications at [...] st Contact Info) Description 08/19/2023 6:40 AM VISITOR USE ASSISTANT Appointment Department of Laboratory Medicine and Pathology, [place], [place] [address] [place] [phone] Pérez Zuniga M.D., Ph.D. [address] [place] [address] [phone] 08/19/2023 7:00 AM VISITOR USE ASSISTANT Ancillary Procedure Department of Cardiovascular Medicine in [place], [place] [address] [place] [phone] Pérez Zuniga M.D., Ph.D. [address] [place] [address] [phone] 08/19/2023 9:00 AM VISITOR USE ASSISTANT Appointment Department of Radiology, [facility] in [place], [place] [address] [place] [phone] Pérez Zuniga M.D., Ph.D. [address] [place] [phone] 08/19/2023 3:40 PM VISITOR USE ASSISTANT Office Visit Department of Oncology in [place], [place] [address] [place] [address] [phone] Zhane Granados APRN, C.N.P. [address] [place] [phone] 08/21/2023 10:15 AM VISITOR USE ASSISTANT Clinical Support Department of Palliative Care in [place], [place] [address] [place] [phone] Serenity Kelsey P.A.-C. 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 LEFT VENTRICLE:Normal [...] the Order-Level Documents. Narrative 06/20/2023 1:42 PM VISITOR USE ASSISTANT For the complete report, see the Order-Level [...] pericardial effusion. Findings There are no previous [facility] echocardiograms available forcomparison. LEFT VENTRICLE:Normal left [...] (HCC) Secondary Malignant Neoplasm Bone (HCC) Other Sharepoint Admin Current Drug Therapy documented in this encounter Additional Health Concerns Infection Onset Date Last Indicated Resolved Time Protective Environment 06/04/2023 06/04/2023 documented as of this encounter Care Teams Hoeing Row Boss Relationship Specialty Start Date End Date Elsewhere, Pcp PCP - General Family Medicine 06/17/23 documented as of this encounter
--- OUTSIDE RECORDS SUMMARY | 2023-08-09 19:03 | XMS_ITS | Encounter Summary ---
Author Name Unknown Organization [facility] Address [address] [place] [address] Care Team Providers Care Roving Frame Tender Name Role Phone Elsewhere, Pcp Primary Care Provider Unavailabl e Reason for Visit * Reason Onset Date Comments Pre-visit Intake 06/17/2023 Encounter Details Date Type Department Care Team (Latest Contact Info) Description 06/17/2023 7:00 AM RAKER BUFFING WHEEL Clinical Communication Virtual Review in [address] [address] Pre-visit Intake Social History Tobacco [...] Sex Assigned at Female 05/31/2023 8:26 AM RAKER BUFFING WHEEL Gender Identity Female 05/31/2023 8:26 AM RAKER BUFFING WHEEL Sexual Orientation Straight 05/31/2023 8: 26 AM RAKER BUFFING WHEEL documented as of this encounter Plan of Treatment Upcoming Encounters Date Type Department Care Team (Late st Contact Info) Description 08/19/2023 6:40 AM RAKER BUFFING WHEEL Appointment Department of Laboratory Medicine and Pathology, [facility] in [place], [place] [address] [place] [phone] Pérez Zuniga M.D., Ph.D. [address] [place] [phone] 08/19/2023 7:00 AM RAKER BUFFING WHEEL Ancillary Procedure Department of Cardiovascular Medicine in [place], [place] [address] [place] [phone] Pérez Zuniga M.D., Ph.D. [address] [place] [phone] 08/19/2023 9:00 AM RAKER BUFFING WHEEL Appointment Department of Radiology, [facility] in [place], [place] [address] [place] [phone] Pérez Zuniga M.D., Ph.D. [address] [place] [phone] 08/19/2023 3:40 PM RAKER BUFFING WHEEL Office Visit Department of Oncology in [place], [place] [address] [place] [phone] Zhane Granados, PAPER PATTERN FOLDER, C.N.P. [address] [place] [phone] 08/21/2023 10:15 AM RAKER BUFFING WHEEL Clinical Support Department of Palliative Care in [place], [place] [address] [place] [phone] Serenity Kelsey, P.A.-C. [address] [place] [phone] Meka Rinaldi D.N.P., R.N., [facility] documented as of this encounter Visit Diagnoses Not on filedocumented in this encounter Additional Health Concerns Infection Onset Date Last Indicated Resolved Time Protective Environment 06/04/2023 06/04/2023 documented as of this encounter Care Teams Roving Frame Tender Relationship Specialty Start Date End Date Elsewhere, Pcp PCP - General Family Medicine 06/17/23 documented as of this encounter
--- OUTSIDE RECORDS SUMMARY | 2023-08-09 19:03 | XMS_ITS | Encounter Summary ---
Author Name Unknown Organization [facility] Address [address] [place] [address] Care Team Providers Care Fire Medic Name Role Phone Unavailable Primary Care Provider Unavailabl e Encounter Details Date Type Department Care Team (Late st Contact Info) Description 06/05/2023 Clinical Communication Department of Oncology in [place], [place] [address] [place] [phone] Anahy Amezcua R.N., O.C.N. [address] [place] [phone] Social History Tobacco Use Types Packs/Day Years [...] Sex Assigned at Female 05/31/2023 8:26 AM HR INTERNSHIP Gender Identity Female 05/31/2023 8:26 AM HR INTERNSHIP Sexual Orientation Straight 05/31/2023 8: 26 AM HR INTERNSHIP documented as of this encounter Miscellaneous Notes * Telephone Encounter - Anahy Amezcua R.N., O.C.N. - 06/05/2023 12:48 PM HR INTERNSHIP SUBJECTIVE CHIEF COMPLAINT / REASON FOR CALL [...] following references were used: nursing clinical judgement INTERNSHIP * Telephone Encounter - Anahy Amezcua R.N., O.C.N. - 06/05/2023 10:52 AM HR INTERNSHIP SUBJECTIVE CHIEF COMPLAINT / REASON FOR CALL [...] following references were used: nursing clinical judgement. INTERNSHIP documented in this encounter Plan of Treatment Upcoming Encounters Date Type Department Care Team (Late st Contact Info) Description 08/19/2023 6:40 AM HR INTERNSHIP Appointment Department of Laboratory Medicine and Pathology, [facility] in [address] [phone] Pérez Zuniga M.D., Ph.D. [address] [place] [phone] 08/19/2023 7:00 AM HR INTERNSHIP Ancillary Procedure Department of Cardiovascular Medicine in [address] [phone] Pérez Zuniga M.D., Ph.D. [address] [place] [phone] 08/19/2023 9:00 AM HR INTERNSHIP Appointment Department of Radiology, [facility] in [address] [phone] Pérez Zuniga M.D., Ph.D. [address] [place] [phone] 08/19/2023 3:40 PM HR INTERNSHIP Office Visit Department of Oncology in [address] [phone] Zhane Granados APRN, C.N.P. [address] [place] [phone] 08/21/2023 10:15 AM HR INTERNSHIP Clinical Support Department of Palliative Care in [address] [phone] Serenity Kelsey P.A.-C. [address] [place] [address] Meka Rinaldi D.N.P., R.N., [facility] documented as of this encounter Visit Diagnoses Not on filedocumented in this encounter Additional Health Concerns Infection Onset Date Last Indicated Resolved Time Protective Environment 06/04/2023 06/04/2023 documented as of this encounter
--- OUTSIDE RECORDS SUMMARY | 2023-08-09 19:03 | XMS_ITS | Encounter Summary ---
Author Name Unknown Organization [facility] Address [address] [place] [address] Care Team Providers Care Damage Adjuster Name Role Phone Unavailable Primary Care Provider Unavailabl e Encounter Details Date Type Department Care Team (Latest Contact Info) Description 06/04/2023 7:35 AM MANAGER SIGN Ancillary Procedure Department of Radiology in [place], [place] [address] [place] [address] Pérez Zuniga M.D., Ph.D. [address] [place] [phone] Melanoma Trunk (HCC); Secondary Malignant Neoplasm Bone [...] Assigned at Female 05/31/2023 8:26 AM MANAGER SIGN Gender Identity Female 05/31/2023 8:26 AM MANAGER SIGN Sexual Orientation Straight 05/31/2023 8: 26 AM MANAGER SIGN documented as of this encounter Plan of Treatment Upcoming Encounters Date Type Department Care Team (Late st Contact Info) Description 08/19/2023 6:40 AM MANAGER SIGN Appointment Department of Laboratory Medicine and Pathology, [facility] in [place], [place] [address] [place] [phone] Pérez Zuniga M.D., Ph.D. [address] [place] [phone] 08/19/2023 7:00 AM MANAGER SIGN Ancillary Procedure Department of Cardiovascular Medicine in [place], [place] [address] [place] [phone] Pérez Zuniga M.D., Ph.D. [address] [place] [phone] 08/19/2023 9:00 AM MANAGER SIGN Appointment Department of Radiology, [facility] in [place], [place] [address] [place] [phone] Pérez Zuniga M.D., Ph.D. [address] [place] [phone] 08/19/2023 3:40 PM MANAGER SIGN Office Visit Department of Oncology in [place], [place] [address] [place] [phone] Zhane Granados, VOLUNTEER PATIENT REPRESENTATIVE, C.N.P. [address] [place] [phone] 08/21/2023 10:15 AM MANAGER SIGN Clinical Support Department of Palliative Care in [place], [place] [address] [place] [phone] Serenity Kelsey, P.A.-C. 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 The largest is seen proximally extending off of the proximal lygeh-yx-hbds. This involves the intertrochanteric left femur extending [...] diaphysis, which extends off of the proximal mcaht-vg-hlmb (series 3 and 4 image 15). The lesions right around the knee were not present on the MRI from October 2014 and correlate with areas of hypermetabolic activity on the recent PET CT. Findings are compatible with recent biopsy results of metastatic melanoma. Large liztg-mw-btrb coronal and axial images include the right femur, which demonstrates numerous large intramedullary lesions throughout the right femoral diaphysis as well as the proximal right tibial diaphysis, as well. No definite discrete soft tissue masses within either thigh. Narrative 06/04/2023 11:45 AM MANAGER SIGN EXAM: ??INTERPRETATION OF OUTSIDE MR LEFT FEMUR [...] is seen proximally extending off of the cwfhsfnmcvgad-sh-hmnf. This involves the intertrochanteric left femur extendingdistally [...] tibial diaphysis, which extends offof the proximal nvhop-bi-dpup (series 3 and 4 image 15). The lesions right around the knee were not present on the MRIfrom October 2014 and correlate with areas of hypermetabolic activity on therecent PET CT. Findings are compatible with recent biopsy results ofmetastatic melanoma. Large ygoec-fm-bghm coronal and axial images include the right [...]
--- OUTSIDE RECORDS SUMMARY | 2023-08-09 19:03 | XMS_ITS | Encounter Summary ---
Author Name Unknown Organization [facility] Address [address] [place] [address] Care Team Providers Care Parking Lot Attendant Name Role Phone Unavailable Primary Care Provider Unavailabl e Encounter Details Date Type Department Care Team (Latest Contact Info) Description 06/04/2023 7:35 AM SPOOL WINDER Ancillary Procedure Department of Radiology in [place], [place] [address] [place] [address] Pérez Zuniga M.D., Ph.D. [address] [place] [phone] Melanoma Trunk (HCC); Secondary Malignant Neoplasm Bone [...] Sex Assigned at Female 05/31/2023 8:26 AM SPOOL WINDER Gender Identity Female 05/31/2023 8:26 AM SPOOL WINDER Sexual Orientation Straight 05/31/2023 8: 26 AM SPOOL WINDER documented as of this encounter Plan of Treatment Upcoming Encounters Date Type Department Care Team (Late st Contact Info) Description 08/19/2023 6:40 AM SPOOL WINDER Appointment Department of Laboratory Medicine and Pathology, [facility] in [place], [place] [address] [place] [phone] Pérez Zuniga M.D., Ph.D. [address] [place] [phone] 08/19/2023 7:00 AM SPOOL WINDER Ancillary Procedure Department of Cardiovascular Medicine in [place], [place] [address] [place] [phone] Pérez Zuniga M.D., Ph.D. [address] [place] [phone] 08/19/2023 9:00 AM SPOOL WINDER Appointment Department of Radiology, [facility] in [place], [place] [address] [place] [phone] Pérez Zuniga M.D., Ph.D. [address] [place] [phone] 08/19/2023 3:40 PM SPOOL WINDER Office Visit Department of Oncology in [place], [place] [address] [place] [phone] Zhane Granados, SALES AND MERCHANDISING REPRESENTATIVE, C.N.P. [address] [place] [phone] 08/21/2023 10:15 AM SPOOL WINDER Clinical Support Department of Palliative Care in [place], [place] [address] [place] [phone] Serenity Kelsey, P.A.-C. 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 Large intensely hypermetabolic mixed solid [...] of the report. Narrative 06/10/2023 10:24 AM SPOOL WINDER EXAM: ??INTERPRETATION OF OUTSIDE NM PET [...] of the report. Pérez Zuniga M.D., Ph.D. 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
--- OUTSIDE RECORDS SUMMARY | 2023-08-09 19:03 | XMS_ITS | Encounter Summary ---
Author Name Unknown Organization [facility] Address [address] [place] [address] Care Team Providers Care Stamping Die Maker Name Role Phone Unavailable Primary Care Provider Unavailabl e Encounter Details Date Type Department Care Team (Late st Contact Info) Description 06/04/2023 Orders Only [facility] [address] [place] [phone] Joy Hernandez, Pharm.D., R.Ph. [address] [place] [phone] Social History Tobacco Use Types Packs/Day Years [...] Sex Assigned at Female 05/31/2023 8:26 AM PRODUCT CONSULTANT Gender Identity Female 05/31/2023 8:26 AM PRODUCT CONSULTANT Sexual Orientation Straight 05/31/2023 8: 26 AM PRODUCT CONSULTANT documented as of this encounter Plan of Treatment Upcoming Encounters Date Type Department Care Team (Late st Contact Info) Description 08/19/2023 6:40 AM PRODUCT CONSULTANT Appointment Department of Laboratory Medicine and Pathology, [facility] in [place], [place] [address] [place] [address] Pérez Zuniga M.D., Ph.D. [address] [place] [phone] 08/19/2023 7:00 AM PRODUCT CONSULTANT Ancillary Procedure Department of Cardiovascular Medicine in [place], [place] [address] [place] [address] Pérez Zuniga M.D., Ph.D. [address] [place] [phone] 08/19/2023 9:00 AM PRODUCT CONSULTANT Appointment Department of Radiology, [facility], in [place], [place] [address] [place] [address] Pérez Zuniga M.D., Ph.D. [address] [place] [phone] 08/19/2023 3:40 PM PRODUCT CONSULTANT Office Visit Department of Oncology in [place], [place] [address] [place] [phone] Zhane Granados, SODA FOUNTAIN MANAGER, C.N.P. [address] [place] [phone] 08/21/2023 10:15 AM PRODUCT CONSULTANT Clinical Support Department of Palliative Care in [place], [place] [address] [place] [phone] Serenity Kelsey, P.A.-C. [address] [place] [phone] Meka Rinaldi D.N.P., R.N., [facility] documented as of this encounter Visit Diagnoses Not on filedocumented in this encounter
--- OUTSIDE RECORDS SUMMARY | 2023-08-09 19:03 | XMS_ITS | Encounter Summary ---
Author Name Unknown Organization [facility] Address [address] [place] [address] Care Team Providers Care Field Assessor Name Role Phone Unavailable Primary Care Provider Unavailabl e Encounter Details Date Type Department Care Team (Latest Contact Info) Description 06/05/2023 Specialty Pharmacy [facility] [address] [place] [phone] Yessi Patel, Pharm.D., R.Ph. [address] [place] [address] Melanoma Trunk (HCC) (Primary Dx) Social History [...] Sex Assigned at Female 05/31/2023 8:26 AM MANUFACTURING SOFTWARE ENGINEER Gender Identity Female 05/31/2023 8:26 AM MANUFACTURING SOFTWARE ENGINEER Sexual Orientation Straight 05/31/2023 8: 26 AM MANUFACTURING SOFTWARE ENGINEER documented as of this encounter Miscellaneous Notes [...] sensitivity, medication and health history considered at on awake counselor (renal function if available). To optimize outcomes, patient assessed for the needof other possible supportive therapies and informed of importance of proper monitoring and future reassessment. The patient/caregiver's prior education on this new therapy and disease specific knowledge were assessed with counseling and education tailored to this level of understanding. Caruso concerns and questions were addressed. Patient specific considerations/desires/requests noted at on awake counselor: Suggested to stop ibuprofen due to [...] apparent. Patient is eligible for service through [facility]. Links to access additional resources [...] on what pharmacy they will be using group home. Insurance investigation still underway. Follow-up: 1 month(s) Yessi Patel, PharmNemesio., R.Ph. FACTURING SOFTWARE ENGINEER documented in this encounter Plan of Treatment Upcoming Encounters Date Type Department Care Team (Late st Contact Info) Description 08/19/2023 6:40 AM MANUFACTURING SOFTWARE ENGINEER Appointment Department of Laboratory Medicine and Pathology, [facility], in [place], [place] [address] [place] [address] Pérez Zuniga M.D., Ph.D. [address] [place] [phone] 08/19/2023 7:00 AM MANUFACTURING SOFTWARE ENGINEER Ancillary Procedure Department of Cardiovascular Medicine in [place], [place] [address] [place] [address] Pérez Zuniga M.D., Ph.D. [address] [place] [phone] 08/19/2023 9:00 AM MANUFACTURING SOFTWARE ENGINEER Appointment Department of Radiology, [facility] in [place], [place] [address] [place] [address] Pérez Zuniga M.D., Ph.D. [address] [place] [phone] 08/19/2023 3:40 PM MANUFACTURING SOFTWARE ENGINEER Office Visit Department of Oncology in [place], [place] [address] [place] [address] Zhane Granados, LIBRARY CLERICAL ASSISTANT, C.N.P. [address] [place] [phone] 08/21/2023 10:15 AM MANUFACTURING SOFTWARE ENGINEER Clinical Support Department of Palliative Care in [place], [place] [address] [place] [phone] Serenity Kelsey, P.A.-C. [address] [place] [phone] Meka Rinaldi D.N.P., R.N., [facility] documented as of this encounter Visit Diagnoses Diagnosis Melanoma Trunk (HCC)- Primary documented in this encounter Additional Health Concerns Infection Onset Date Last Indicated Resolved Time Protective Environment 06/04/2023 06/04/2023 documented as of this encounter
--- OUTSIDE RECORDS SUMMARY | 2023-08-09 19:03 | XMS_ITS | Encounter Summary ---
Author Name Unknown Organization [facility] Address [address] [place] [address] Care Team Providers Care Beauty Sales Advisor Name Role Phone Unavailable Primary Care Provider Unavailabl e Encounter Details Date Type Department Care Team (Late st Contact Info) Description 06/04/2023 4:40 PM CLOTHING PATTERN PREPARER Education Department of Oncology in [place], [place] [address] [place] [phone] Pérez Zuniga M.D., Ph.D. [address] [place] [phone] Anahy Amezcua R.N., O.C.N. [address] [place] [phone] Melanoma Trunk (HCC); Secondary Malignant Neoplasm Bone [...] Sex Assigned at Female 05/31/2023 8:26 AM CLOTHING PATTERN PREPARER Gender Identity Female 05/31/2023 8:26 AM CLOTHING PATTERN PREPARER Sexual Orientation Straight 05/31/2023 8: 26 AM CLOTHING PATTERN PREPARER documented as of this encounter Progress Notes * Anahy Amezcua R.N., O.C.N. - 06/04/2023 4:40 PM CST Cancer Treatment Education Visit REASON FOR VISIT Met with Tony Cota for cancer treatment education. ASSESSMENT/PLAN Patient education provided per the cancer treatment letter attached in encounters. Printed materials provided to patient per Education Tab. Answered questions. Patient verbalized understanding and voiced appreciation for education. HING PATTERN PREPARER documented in this encounter Plan of Treatment Upcoming Encounters Date Type Department Care Team (Late st Contact Info) Description 08/19/2023 6:40 AM CLOTHING PATTERN PREPARER Appointment Department of Laboratory Medicine and Pathology, [facility] in [address] [phone] Pérez Zuniga M.D., Ph.D. [address] [place] [phone] 08/19/2023 7:00 AM CLOTHING PATTERN PREPARER Ancillary Procedure Department of Cardiovascular Medicine in [address] [phone] Pérez Zuniga M.D., Ph.D. [address] [place] [phone] 08/19/2023 9:00 AM CLOTHING PATTERN PREPARER Appointment Department of Radiology, [facility] in [place], [place] [address] [place] [phone] Pérez Zuniga M.D., Ph.D. [address] [place] [phone] 08/19/2023 3:40 PM CLOTHING PATTERN PREPARER Office Visit Department of Oncology in [address] [phone] Zhane Granados APRN, C.N.P. [address] [place] [phone] 08/21/2023 10:15 AM [facility] Clinical Support Department of Palliative Care in [place], [place] [address] [place] [phone] Serenity Kelsey, PSantoshA.-C. [address] [place] [phone] Meka Rinaldi D.N.P., R.N., [facility] documented as of this encounter Visit Diagnoses Diagnosis 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) documented in this encounter Additional Health Concerns Infection Onset Date Last Indicated Resolved Time Protective Environment 06/04/2023 06/04/2023 documented as of this encounter
--- OUTSIDE RECORDS SUMMARY | 2023-08-09 19:03 | XMS_ITS | Encounter Summary ---
Author Name Unknown Organization [facility] Address [address] [place] [address] Care Team Providers Care Slot Editor Name Role Phone Elsewhere, Pcp Primary Care Provider Unavailabl e Encounter Details Date Type Department Care Team (Latest Contact Info) Description 06/20/2023 11:46 AM EDM OPERATOR - 06/20/2023 12:06 PM EDM OPERATOR Hospital Encounter Department of Laboratory Medicine and Pathology, [facility], in [place], [place] [address] [place] [address] Pérez Zuniga M.D., Ph.D. [address] [place] [phone] Melanoma Trunk (HCC); Secondary Malignant Neoplasm Bone [...] Sex Assigned at Female 05/31/2023 8:26 AM EDM OPERATOR Gender Identity Female 05/31/2023 8:26 AM EDM OPERATOR Sexual Orientation Straight 05/31/2023 8: 26 AM EDM OPERATOR documented as of this encounter Medications at [...] st Contact Info) Description 08/19/2023 6:40 AM EDM OPERATOR Appointment Department of Laboratory Medicine and Pathology, [facility] in [place], [place] [address] [place] [phone] Pérez Zuniga M.D., Ph.D. [address] [place] [phone] 08/19/2023 7:00 AM EDM OPERATOR Ancillary Procedure Department of Cardiovascular Medicine in [place], [place] [address] [place] [phone] Pérez Zuniga M.D., Ph.D. [address] [place] [phone] 08/19/2023 9:00 AM EDM OPERATOR Appointment Department of Radiology, [facility] in [place], [place] [address] [place] [phone] Pérez Zuniga M.D., Ph.D. [address] [place] [phone] 08/19/2023 3:40 PM EDM OPERATOR Office Visit Department of Oncology in [address] [phone] Zhane Granados APRN, C.N.P. [address] [place] [phone] 08/21/2023 10:15 AM EDM OPERATOR Clinical Support Department of Palliative Care in [address] [phone] Serenity Kelsey, P.A.-C. [address] [place] [phone] Meka Rinaldi D.N.P., R.N., [facility] documented as of this encounter Procedures Procedure Name Priority Date/Time Associated Diagnosis Comments THYROID FUNCTION CASCADE, S Routine 06/20/2023 12:01 PM EDM OPERATOR 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) CBC WITH DIFFERENTIAL, B Routine 06/20/2023 12:01 PM EDM OPERATOR 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) TYPE AND SCREEN Routine 06/20/2023 12:01 PM EDM OPERATOR 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) COMPREHENSIVE METABOLIC PANEL, S/P Routine 06/20/2023 12:01 PM EDM OPERATOR 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) documented in this encounter Results * Type and Screen (with Reflex Antibody ID) (06/20/2023 12:01 PM EDM OPERATOR) ABORh O Neg Not applicable 06/20/2023 1:48 PM EDM OPERATOR ETRM Antibody Screen Negative Negative 06/20/2023 2:00 PM EDM OPERATOR ETRM Type & Screen Expiration 06/23/2023 23:59 06/20/2023 1:48 PM EDM OPERATOR ETRM Testing Location [place] DEFAULT 06/20/2023 12:53 PM EDM OPERATOR ETRM Blood (Blood, Venous) 06/20/2023 12:01 PM EDM OPERATOR 06/20/2023 12:53 PM EDM OPERATOR Pérez Zuniga M.D., Ph.D. LAB BLOO D BANK TEST ORDERABLES [facility] [address] [place] [address], [facility] ETRM [facility] [address] [place] [address] * Thyroid Function [place] (06/20/2023 12:01 PM EDM OPERATOR) TSH, Sensitive 1.5 0.3 - 4.2 mIU/L 06/20/2023 1:14 PM EDM OPERATOR DTL Blood (Blood, Venous) 06/20/2023 12:01 PM EDM OPERATOR 06/20/2023 12:41 PM EDM OPERATOR Pérez Zuniga M.D., Ph.D. LAB BLOO D ADD-ON [facility] [address] [place] [address], [facility] DTL [facility] [address] [place] [address] * (ABNORMAL) Comprehensive Metabolic Panel (06/20/2023 12:01 PM EDM OPERATOR) [facility] Potassium, S 4.0 3.6 - 5.2 mmol/L 06/20/2023 1:14 PM EDM OPERATOR DTL Sodium, S 137 135 - 145 mmol/L 06/20/2023 1:14 PM EDM OPERATOR DTL Chloride, S 101 98 - 107 mmol/L 06/20/2023 1:14 PM EDM OPERATOR DTL Bicarbonate, S 20(L) 22 - 29 mmol/L 06/20/2023 1:14 PM EDM OPERATOR DTL Anion Gap 16(H) 7 - 15 06/20/2023 1:14 PM EDM OPERATOR DTL BUN (Blood Urea Nitrogen), S 27(H) 6 - 21 mg/dL 06/20/2023 1:14 PM EDM OPERATOR DTL Creatinine 0.94 0.59 - 1.04 mg/dL 06/20/2023 1:14 PM EDM OPERATOR DTL Estimated GFR (eGFR) 76 >=60 mL/min/BS A 06/20/2023 1:14 PM EDM OPERATOR DTL Comment: Estimated GFR calculated using the 2020 CKD_EPI creatinine equation. Calcium, Total, S 9.7 8.6 - 10.0 mg/dL 06/20/2023 1:14 PM EDM OPERATOR DTL Glucose, S 101 70 - 140 mg/dL 06/20/2023 1:14 PM EDM OPERATOR DTL Protein, Total, S 7.7 6.3 - 7.9 g/dL 06/20/2023 1:14 PM EDM OPERATOR DTL Albumin, S 4.1 3.5 - 5.0 g/dL 06/20/2023 1:14 PM EDM OPERATOR DTL Aspartate Aminotransferase (AST), S 26 8 - 43 U/L 06/20/2023 1:14 PM EDM OPERATOR DTL Alkaline Phosphatase, S 277(H) 35 - 104 U/L 06/20/2023 1:14 PM EDM OPERATOR DTL Alanine Aminotransferase (ALT), S 22 7 - 45 U/L 06/20/2023 1:14 PM EDM OPERATOR DTL Bilirubin, Total, S 0.2 0.0 - 1.2 mg/dL 06/20/2023 1:14 PM EDM OPERATOR DTL Blood (Blood, Venous) 06/20/2023 12:01 PM EDM OPERATOR 06/20/2023 12:41 PM EDM OPERATOR Pérez Zuniga M.D., Ph.D. LAB BLOO D ADD-ON [facility] [address] [place] [address], [facility] [address] [place] [address] * (ABNORMAL) CBC with Differential, Blood (06/20/2023 12:01 PM EDM OPERATOR) Hemoglobin 7.6(L) 11.6 - 15.0 g/dL 06/20/2023 1:15 PM EDM OPERATOR DTL Hematocrit 24.1(L) 35.5 - 44.9 % 06/20/2023 1:15 PM EDM OPERATOR DTL Erythrocytes 2.49(L) 3.92 - 5.13 x10(12)/L 06/20/2023 1:15 PM EDM OPERATOR DTL MCV 96.8 78.2 - 97.9 fL 06/20/2023 1:15 PM EDM OPERATOR DTL RBC Distrib Width 16.2(H) 12.2 - 16.1 % 06/20/2023 1:15 PM EDM OPERATOR DTL Platelet Count 496(H) 157 - 371 x10(9)/L 06/20/2023 1:15 PM EDM OPERATOR DTL Leukocytes 7.9 3.4 - 9.6 x10(9)/L 06/20/2023 1:15 PM EDM OPERATOR DTL Neutrophils 4.72 1.56 - 6.45 x10(9)/L 06/20/2023 1:15 PM EDM OPERATOR DHPM Lymphocytes 1.98 0.95 - 3.07 x10(9)/L 06/20/2023 1:15 PM EDM OPERATOR DTL Monocytes 0.90(H) 0.26 - 0.81 x10(9)/L 06/20/2023 1:15 PM EDM OPERATOR DTL Eosinophils 0.22 0.03 - 0.48 x10(9)/L 06/20/2023 1:15 PM EDM OPERATOR DTL Basophils 0.07 0.01 - 0.08 x10(9)/L 06/20/2023 1:15 PM EDM OPERATOR DTL Blood (Blood, Venous) 06/20/2023 12:01 PM EDM OPERATOR 06/20/2023 12:26 PM EDM OPERATOR Pérez Zuniga M.D., Ph.D. LAB BLOO D ADD-ON [facility] [address] [place] [address], [facility] DTL [facility] [address] [place] [address] DHPM [facility] [address] [place] [address] documented in this encounter Visit Diagnoses Diagnosis 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) documented in this encounter Additional Health Concerns Infection Onset Date Last Indicated Resolved Time Protective Environment 06/04/2023 06/04/2023 documented as of this encounter Care Teams Slot Editor Relationship Specialty Start Date End Date Elsewhere, Pcp PCP - General Family Medicine 06/17/23 documented as of this encounter
--- OUTSIDE RECORDS SUMMARY | 2023-08-09 19:03 | XMS_ITS | Encounter Summary ---
Author Name Unknown Organization [facility] Address [address] [place] [address] Care Team Providers Care Hospital Sales Representative Name Role Phone Unavailable Primary Care Provider Unavailabl e Reason for Referral * Outpatient (Routine) - Closed Specialty Diagnoses / Procedures Referred By Mikki feliciano Referred To Contact Oncology Laura Dalal M.D. [address] [place] [phone] [facility] Referral ID Status Reason Start Date Expiration Date Visits Re quested Visits Authorized [id number] Closed 06/10/2023 06/09/2026 1 1 Scheduling Instructions With Julia Liz 3:00 pm ARATOR OPERATOR Encounter Details Date Type Department Care Team (Late st Contact Info) Description 06/10/2023 Clinical Communication Department of Oncology in [place], [place] [address] [place] [phone] Akosua Liz D.N.P., R.N. [address] [place] [phone] Social History Tobacco Use Types Packs/Day Years [...] Sex Assigned at Female 05/31/2023 8:26 AM COMPARATOR OPERATOR Gender Identity Female 05/31/2023 8:26 AM COMPARATOR OPERATOR Sexual Orientation Straight 05/31/2023 8: 26 AM COMPARATOR OPERATOR documented as of this encounter Plan of Treatment Upcoming Encounters Date Type Department Care Team (Late st Contact Info) Description 08/19/2023 6:40 AM COMPARATOR OPERATOR Appointment Department of Laboratory Medicine and Pathology, [facility] in [place], [place] [address] [place] [phone] Pérez Zuniga M.D., Ph.D. [address] [place] [phone] 08/19/2023 7:00 AM COMPARATOR OPERATOR Ancillary Procedure Department of Cardiovascular Medicine in [address] [phone] Pérez Zuniga M.D., Ph.D. [address] [place] [phone] 08/19/2023 9:00 AM COMPARATOR OPERATOR Appointment Department of Radiology, [facility] in [place], [place] [address] [place] [phone] Pérez Zuniga M.D., Ph.D. [address] [place] [phone] 08/19/2023 3:40 PM COMPARATOR OPERATOR Office Visit Department of Oncology in [place], [place] [address] [place] [phone] Zhane Granados APRN, C.N.P. [address] [place] [phone] 08/21/2023 10:15 AM [facility] Clinical Support Department of Palliative Care in [place], [place] [address] [place] [phone] Serenity Kelsey P.A.-C. [address] [place] [phone] Meka Rinaldi D.N.P., R.N., [facility] Scheduled Referrals Name Type Priority Associated Diagnoses Orde r Schedule Oncology nurse visit (clinic) Outpatient Referral Routine Expected: 06/20/2023, Expires: 09/10/2024 documented as of this encounter Visit Diagnoses Not on filedocumented in this encounter Additional Health Concerns Infection Onset Date Last Indicated Resolved Time Protective Environment 06/04/2023 06/04/2023 documented as of this encounter
--- OUTSIDE RECORDS SUMMARY | 2023-08-09 19:03 | XMS_ITS | Encounter Summary ---
Author Name Unknown Organization [facility] Address [address] [place] [address] Care Team Providers Care Manager Oracle Database Name Role Phone Elsewhere, Pcp Primary Care Provider Unavailabl e Reason for Referral * Outpatient (Routine) - Closed Specialty Diagnoses / Procedures Referred By Contac t Referred To Contact Diagnoses 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) Other Hardness Inspector Current Drug Therapy Procedures ECG 12 Lead Pérez Zuniga M.D., Ph.D. 200 [place] [phone] [facility] Referral ID Status Reason Start Date Expiration Date Visits Re quested Visits Authorized [id number] Closed 06/20/2023 06/19/2024 1 1 ET STRAIGHTENER * Outpatient (Routine) - Closed Specialty Diagnoses / Procedures Referred By Contac t Referred To Contact Oncology Pérez Zuniga M.D., Ph.D. [address] [place] [phone] [facility] Referral ID Status Reason Start Date Expiration Date Visits Re quested Visits Authorized [id number] Closed 06/20/2023 06/19/2026 1 1 ET STRAIGHTENER Reason for Visit * Outpatient (Routine) - Closed Specialty Diagnoses / Procedures Referred By Mikki feliciano Referred To Contact Oncology Pérez Zuniga M.D., Ph.D. [address] [place] [phone] [facility] Referral ID Status Reason Start Date Expiration Date Visits Re quested Visits Authorized [id number] Closed 06/04/2023 06/03/2026 1 1 Encounter Details Date Type Department Care Team (Late st Contact Info) Description 06/20/2023 4:40 PM BILLET STRAIGHTENER Office Visit Department of Oncology in [place], [place] [address] [place] [phone] Pérez Zuniga M.D., Ph.D. [address] [place] [phone] Melanoma Trunk (HCC) (Primary Dx); Secondary Malignant Neoplasm Bone (HCC); Other Hardness Inspector Current Drug Therapy Social History Tobacco Use [...] Sex Assigned at Female 05/31/2023 8:26 AM BILLET STRAIGHTENER Gender Identity Female 05/31/2023 8:26 AM BILLET STRAIGHTENER Sexual Orientation Straight 05/31/2023 8: 26 AM BILLET STRAIGHTENER documented as of this encounter Last Filed Vital Signs Vital Sign Reading Time Taken Comments Blood Pressure 125/79 06/20/2023 2:14 PM BILLET STRAIGHTENER Pulse 99 06/20/2023 2:14 PM BILLET STRAIGHTENER Temperature 37 ??C (98.6 ??F) 06/20/2023 2:14 PM BILLET STRAIGHTENER Respiratory Rate 16 06/20/2023 2:14 PM BILLET STRAIGHTENER Oxygen Saturation 100% 06/20/2023 2:14 PM BILLET STRAIGHTENER Inhaled Oxygen Concentration - - Weight 75 kg (165 lb 5.5 oz) 06/20/2023 2:14 PM BILLET STRAIGHTENER Height 160 cm (5' 2.99) 06/20/2023 2:14 PM BILLET STRAIGHTENER Body Mass Index 29.3 06/20/2023 2:14 PM BILLET STRAIGHTENER documented in this encounter Progress Notes * [...] and/or coordination of care as described above. ET STRAIGHTENER documented in this encounter Plan of Treatment Upcoming Encounters Date Type Department Care Team (Late st Contact Info) Description 08/19/2023 6:40 AM BILLET STRAIGHTENER Appointment Department of Laboratory Medicine and Pathology, [facility] in [place], [place] [address] [place] [phone] Pérez Zuniga M.D., Ph.D. [address] [place] [phone] 08/19/2023 7:00 AM BILLET STRAIGHTENER Ancillary Procedure Department of Cardiovascular Medicine in [place], [place] [address] [place] [phone] Pérez Zuniga M.D., Ph.D. [address] [place] [phone] 08/19/2023 9:00 AM BILLET STRAIGHTENER Appointment Department of Radiology, [facility] in [place], [place] [address] [place] [phone] Pérez Zuniga M.D., Ph.D. [address] [place] [phone] 08/19/2023 3:40 PM BILLET STRAIGHTENER Office Visit Department of Oncology in [place], [place] [address] [place] [phone] Zhane Granados APRN, C.N.P. [address] [place] [phone] 08/21/2023 10:15 AM BILLET STRAIGHTENER Clinical Support Department of Palliative Care in [place], [place] [address] [place] [phone] Serenity Kelsey, PSantoshADenilson. [address] [place] [phone] Meka Rinaldi D.N.P., R.N., [facility] Scheduled Referrals Name Type Priority Associated Diagnoses Orde r Schedule Oncology office visit (clinic) Outpatient Referral Routine Expected: 07/04/2023 (Approximate), Expires: 09/18/2024 documented as of this encounter Results * ECG 12 Lead (07/04/2023 10:08 AM [facility]) Ventricular Rate ECG/Min 81 BPM MUSE PA Interval 136 ms MUSE QRSD Interval 82 ms MUSE QT Interval 384 ms MUSE QTC Interval 446 ms MUSE P Uriah 46 degrees MUSE R Uriah 60 degrees MUSE T Wave Uriah 19 degrees MUSE 07/04/2023 10:0 8 AM BILLET STRAIGHTENER 07/04/2023 10:10 AM BILLET STRAIGHTENER Impressions MUSE - 07/04/2023 10:10 AM BILLET STRAIGHTENER Normal sinus rhythm Normal ECG When compared [...] CBC with Differential, Blood (07/04/2023 9:50 AM BILLET STRAIGHTENER) Hemoglobin 8.2(L) 11.6 - 15.0 g/dL 07/04/2023 10:56 AM BILLET STRAIGHTENER DHPM Hematocrit 26.3(L) 35.5 - 44.9 % 07/04/2023 10:56 AM BILLET STRAIGHTENER DHPM Erythrocytes 2.62(L) 3.92 - 5.13 x10(12)/L 07/04/2023 10:56 AM BILLET STRAIGHTENER DHPM MCV 100.4(H) 78.2 - 97.9 fL 07/04/2023 10:56 AM BILLET STRAIGHTENER DHPM RBC Distrib Width 17.5(H) 12.2 - 16.1 % 07/04/2023 10:56 AM BILLET STRAIGHTENER DHPM Platelet Count 701(H) 157 - 371 x10(9)/L 07/04/2023 10:56 AM BILLET STRAIGHTENER DHPM Leukocytes 9.9(H) 3.4 - 9.6 x10(9)/L 07/04/2023 10:56 AM BILLET STRAIGHTENER DHPM Neutrophils 5.27 1.56 - 6.45 x10(9)/L 07/04/2023 10:56 AM BILLET STRAIGHTENER DHPM Lymphocytes 3.81(H) 0.95 - 3.07 x10(9)/L 07/04/2023 10:56 AM BILLET STRAIGHTENER DHPM Monocytes 0.63 0.26 - 0.81 x10(9)/L 07/04/2023 10:56 AM BILLET STRAIGHTENER DHPM Eosinophils 0.10 0.03 - 0.48 x10(9)/L 07/04/2023 10:56 AM BILLET STRAIGHTENER DHPM Basophils 0.12(H) 0.01 - 0.08 x10(9)/L 07/04/2023 10:56 AM BILLET STRAIGHTENER DHPM Blood (Blood, Venous) 07/04/2023 9:50 AM BILLET STRAIGHTENER 07/04/2023 10:11 AM BILLET STRAIGHTENER Pérez Zuniga M.D., Ph.D. LAB BLOO D ADD-ON Performing Organization Address City/[facility]/ZIP Co de Phone Number [facility] 200 [place] [address], [facility] 200 [place] [address] * Thyroid Function [place] (07/04/2023 9:49 AM BILLET STRAIGHTENER) TSH, Sensitive 2.3 0.3 - 4.2 mIU/L 07/04/2023 11:05 AM BILLET STRAIGHTENER DTL Blood (Blood, Venous) 07/04/2023 9:49 AM BILLET STRAIGHTENER 07/04/2023 10:29 AM BILLET STRAIGHTENER Pérez Zuniga M.D., Ph.D. LAB BLOO D ADD-ON Performing Organization Address [facility] Co de Phone Number [facility] 200 [place] [address], [facility] 200 [place] [address] * (ABNORMAL) Comprehensive Metabolic Panel (07/04/2023 9:49 AM BILLET STRAIGHTENER) Potassium, S 4.7 3.6 - 5.2 mmol/L 07/04/2023 11:05 AM BILLET STRAIGHTENER DTL Sodium, S 137 135 - 145 mmol/L 07/04/2023 11:05 AM BILLET STRAIGHTENER DTL Chloride, S 103 98 - 107 mmol/L 07/04/2023 11:05 AM BILLET STRAIGHTENER DTL Bicarbonate, S 24 22 - 29 mmol/L 07/04/2023 11:05 AM BILLET STRAIGHTENER DTL Anion Gap 10 7 - 15 07/04/2023 11:05 AM BILLET STRAIGHTENER DTL BUN (Blood Urea Nitrogen), S 22(H) 6 - 21 mg/dL 07/04/2023 11:05 AM BILLET STRAIGHTENER DTL Creatinine 0.90 0.59 - 1.04 mg/dL 07/04/2023 11:05 AM BILLET STRAIGHTENER DTL Estimated GFR (eGFR) 80 >=60 mL/min/BS A 07/04/2023 11:05 AM BILLET STRAIGHTENER DTL Comment: Estimated GFR calculated using the 2020 CKD_EPI creatinine equation. Calcium, Total, S 9.9 8.6 - 10.0 mg/dL 07/04/2023 11:05 AM BILLET STRAIGHTENER DTL Glucose, S 98 70 - 140 mg/dL 07/04/2023 11:05 AM BILLET STRAIGHTENER DTL Protein, Total, S 7.7 6.3 - 7.9 g/dL 07/04/2023 11:05 AM BILLET STRAIGHTENER DTL Albumin, S 4.3 3.5 - 5.0 g/dL 07/04/2023 11:05 AM BILLET STRAIGHTENER DTL Aspartate Aminotransferase (AST), S 26 8 - 43 U/L 07/04/2023 11:05 AM BILLET STRAIGHTENER DTL Alkaline Phosphatase, S 229(H) 35 - 104 U/L 07/04/2023 11:05 AM BILLET STRAIGHTENER DTL Alanine Aminotransferase (ALT), S 24 7 - 45 U/L 07/04/2023 11:05 AM BILLET STRAIGHTENER DTL Bilirubin, Total, S 0.2 0.0 - 1.2 mg/dL 07/04/2023 11:05 AM BILLET STRAIGHTENER DTL Blood (Blood, Venous) 07/04/2023 9:49 AM BILLET STRAIGHTENER 07/04/2023 10:29 AM BILLET STRAIGHTENER Pérez Zuniga M.D., Ph.D. LAB BLOO D ADD-ON [facility] [address] [place] [address], [facility] [address] [place] [address] documented in this encounter Visit Diagnoses Diagnosis Melanoma Trunk (HCC)- Primary Secondary Malignant Neoplasm Bone (HCC) Other Group Home Current Drug Therapy documented in this encounter Additional Health Concerns Infection Onset Date Last Indicated Resolved Time Protective Environment 06/04/2023 06/04/2023 documented as of this encounter Care Teams Manager Oracle Database Relationship Specialty Start Date End Date Elsewhere, Pcp PCP - General Family Medicine 06/17/23 documented as of this encounter
--- OUTSIDE RECORDS SUMMARY | 2023-08-09 19:03 | XMS_ITS | Encounter Summary ---
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 [address] [place] [phone] [facility] Referral ID Status Reason Start Date Expiration Date Visits Re quested Visits Authorized [id number] Closed 06/04/2023 06/03/2024 1 1 SER HAND * Specialty Diagnoses / Procedures Referred By Contac t Referred To Contact Pérez Zuniga M.D., Ph.D. [address] [place] [phone] [facility] Referral ID Status Reason Start Date Expiration Date Visits Re quested Visits Authorized SER HAND * Outpatient (Routine) - Closed Specialty Diagnoses / Procedures Referred By Contac t Referred To Contact Oncology Pérez Zuniga M.D., Ph.D. [address] [place] [phone] 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 [address] [place] [phone] [facility] Referral ID Status Reason Start Date Expiration Date Visits Re quested Visits Authorized [id number] Closed 06/04/2023 06/03/2024 1 1 SER HAND Reason for Visit * Appointment Request (Routine) - Closed Specialty Diagnoses / Procedures Referred By Mikki t Referred To Contact Oncology Diagnoses Metastatic Melanoma Cancer Referral ID Status Reason Start Date Expiration Date Visits Re quested Visits Authorized [id number] Closed 05/22/2023 05/21/2024 1 1 Encounter Details Date Type Department Care Team (Latest Contact Info) Description 06/04/2023 2:20 PM PRESSER HAND Comprehensive Visit Department of Oncology in [place], [place] 200 [place] [phone] Pérez Zuniga M.D., Ph.D. [address] [place] [phone] Melanoma Trunk (HCC) (Primary Dx); Secondary Malignant Neoplasm Bone (HCC); Other Assisted Current Drug Therapy Social History Tobacco Use [...] Sex Assigned at Female 05/31/2023 8:26 AM PRESSER HAND Gender Identity Female 05/31/2023 8:26 AM PRESSER HAND Sexual Orientation Straight 05/31/2023 8: 26 AM PRESSER HAND documented as of this encounter Last Filed Vital Signs Vital Sign Reading Time Taken Comments Blood Pressure 103/69 06/04/2023 2:11 PM PRESSER HAND Pulse 81 06/04/2023 2:11 PM PRESSER HAND Temperature 36.3 ??C (97.3 ??F) 06/04/2023 2:11 PM CS T Respiratory Rate 17 06/04/2023 2:11 PM PRESSER HAND Oxygen Saturation 100% 06/04/2023 2:11 PM PRESSER HAND Inhaled Oxygen Concentration - - Weight 85 kg (187 lb 6.3 oz) 06/04/2023 2:11 PM PRESSER HAND Height 160 cm (5' 2.99) 06/04/2023 2:11 PM PRESSER HAND Body Mass Index 33.2 06/04/2023 2:11 PM PRESSER HAND documented in this encounter Consult Notes * [...] and/or coordination of care as described above. SER HAND documented in this encounter Miscellaneous Notes * Addendum Note - Laura Amezcua R.N., O.C.N. - 06/04/2023 2:20 PM CSTAddended by: LAURA AMEZCUA on: 06/04/2023 03:23 PM Modules accepted: Orders SER HAND * Addendum Note - Laura Amezcua R.N., O.C.N. - 06/04/2023 2:20 PM CSTAddended by: LAURA AMEZCUA on: 06/04/2023 03:38 PM Modules accepted: Orders SER HAND documented in this encounter Plan of Treatment Upcoming Encounters Date Type Department Care Team (Late st Contact Info) Description 08/19/2023 6:40 AM PRESSER HAND Appointment Department of Laboratory Medicine and Pathology, [facility], in [place], [place] [address] [place] [phone] Pérez Zuniga M.D., Ph.D. [address] [place] [phone] 08/19/2023 7:00 AM PRESSER HAND Ancillary Procedure Department of Cardiovascular Medicine in [place], [place] [address] [place] [phone] Pérez Zuniga M.D., Ph.D. [address] [place] [phone] 08/19/2023 9:00 AM PRESSER HAND Appointment Department of Radiology, [facility], in [place], [place] [address] [place] [phone] Pérez Zuniga M.D., Ph.D. [address] [place] [phone] 08/19/2023 3:40 PM PRESSER HAND Office Visit Department of Oncology in [place], [place] [address] [place], [place] [phone] Zhane Granados APRN, C.N.P. [address] [place] [phone] 08/21/2023 10:15 AM PRESSER HAND Clinical Support Department of Palliative Care in [place], [place] [address] [place] [phone] Serenity Kelsey, P.A.-C. 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 LEFT VENTRICLE:Normal left [...] the Order-Level Documents. Narrative 06/20/2023 1:42 PM PRESSER HAND For the complete report, see the Order-Level [...] effusion. Findings There are no previous [facility] echocardiograms available forcomparison. LEFT VENTRICLE:Normal left ventricular [...] (with Reflex Antibody ID) (06/20/2023 12:01 PM PRESSER HAND) ABORh O Neg Not applicable 06/20/2023 1:48 PM PRESSER HAND ETRM Antibody Screen Negative Negative 06/20/2023 2:00 PM PRESSER HAND ETRM Type & Screen Expiration 06/23/2023 23:59 06/20/2023 1:48 PM PRESSER HAND ETRM Testing Location [facility] 06/20/2023 12:53 PM PRESSER HAND ETRM Blood (Blood, Venous) 06/20/2023 12:01 PM PRESSER HAND 06/20/2023 12:53 PM PRESSER HAND Pérez Zuniga M.D., Ph.D. LAB BLOO D BANK TEST ORDERABLES Performing Organization Address [facility] Co de Phone Number [facility] [address] [place] [address], [facility] ETRM [facility] [address] [place] [address] * Thyroid Function [place] (06/20/2023 12:01 PM PRESSER HAND) TSH, Sensitive 1.5 0.3 - 4.2 mIU/L 06/20/2023 1:14 PM PRESSER HAND DTL Blood (Blood, Venous) 06/20/2023 12:01 PM PRESSER HAND 06/20/2023 12:41 PM PRESSER HAND Pérez Zuniga M.D., Ph.D. LAB BLOO D ADD-ON Performing Organization Address [facility] Co de Phone Number [facility] [address] [place] [address], [facility] DTL [facility] [address] [place] [address] * (ABNORMAL) Comprehensive Metabolic Panel (06/20/2023 12:01 PM PRESSER HAND) Potassium, S 4.0 3.6 - 5.2 mmol/L 06/20/2023 1:14 PM PRESSER HAND DTL Sodium, S 137 135 - 145 mmol/L 06/20/2023 1:14 PM PRESSER HAND DTL Chloride, S 101 98 - 107 mmol/L 06/20/2023 1:14 PM PRESSER HAND DTL Bicarbonate, S 20(L) 22 - 29 mmol/L 06/20/2023 1:14 PM PRESSER HAND DTL Anion Gap 16(H) 7 - 15 06/20/2023 1:14 PM PRESSER HAND DTL BUN (Blood Urea Nitrogen), S 27(H) 6 - 21 mg/dL 06/20/2023 1:14 PM PRESSER HAND DTL Creatinine 0.94 0.59 - 1.04 mg/dL 06/20/2023 1:14 PM PRESSER HAND DTL Estimated GFR (eGFR) 76 >=60 mL/min/BS A 06/20/2023 1:14 PM PRESSER HAND DTL Comment: Estimated GFR calculated using the 2020 CKD_EPI creatinine equation. Calcium, Total, S 9.7 8.6 - 10.0 mg/dL 06/20/2023 1:14 PM PRESSER HAND DTL Glucose, S 101 70 - 140 mg/dL 06/20/2023 1:14 PM PRESSER HAND DTL Protein, Total, S 7.7 6.3 - 7.9 g/dL 06/20/2023 1:14 PM PRESSER HAND DTL Albumin, S 4.1 3.5 - 5.0 g/dL 06/20/2023 1:14 PM PRESSER HAND DTL Aspartate Aminotransferase (AST), S 26 8 - 43 U/L 06/20/2023 1:14 PM PRESSER HAND DTL Alkaline Phosphatase, S 277(H) 35 - 104 U/L 06/20/2023 1:14 PM PRESSER HAND DTL Alanine Aminotransferase (ALT), S 22 7 - 45 U/L 06/20/2023 1:14 PM PRESSER HAND DTL Bilirubin, Total, S 0.2 0.0 - 1.2 mg/dL 06/20/2023 1:14 PM PRESSER HAND DTL Blood (Blood, Venous) 06/20/2023 12:01 PM PRESSER HAND 06/20/2023 12:41 PM PRESSER HAND Pérez Zuniga M.D., Ph.D. LAB BLOO D ADD-ON [facility] [address] [place] [address], [facility] [address] [place] [address] * (ABNORMAL) CBC with Differential, Blood (06/20/2023 12:01 PM PRESSER HAND) Hemoglobin 7.6(L) 11.6 - 15.0 g/dL 06/20/2023 1:15 PM PRESSER HAND DTL Hematocrit 24.1(L) 35.5 - 44.9 % 06/20/2023 1:15 PM PRESSER HAND DTL Erythrocytes 2.49(L) 3.92 - 5.13 x10(12)/L 06/20/2023 1:15 PM PRESSER HAND DTL MCV 96.8 78.2 - 97.9 fL 06/20/2023 1:15 PM PRESSER HAND DTL RBC Distrib Width 16.2(H) 12.2 - 16.1 % 06/20/2023 1:15 PM PRESSER HAND DTL Platelet Count 496(H) 157 - 371 x10(9)/L 06/20/2023 1:15 PM PRESSER HAND DTL Leukocytes 7.9 3.4 - 9.6 x10(9)/L 06/20/2023 1:15 PM PRESSER HAND DTL Neutrophils 4.72 1.56 - 6.45 x10(9)/L 06/20/2023 1:15 PM PRESSER HAND DHPM Lymphocytes 1.98 0.95 - 3.07 x10(9)/L 06/20/2023 1:15 PM PRESSER HAND DTL Monocytes 0.90(H) 0.26 - 0.81 x10(9)/L 06/20/2023 1:15 PM PRESSER HAND DTL Eosinophils 0.22 0.03 - 0.48 x10(9)/L 06/20/2023 1:15 PM PRESSER HAND DTL Basophils 0.07 0.01 - 0.08 x10(9)/L 06/20/2023 1:15 PM PRESSER HAND DTL Blood (Blood, Venous) 06/20/2023 12:01 PM PRESSER HAND 06/20/2023 12:26 PM PRESSER HAND Pérez Zuniga M.D., Ph.D. LAB BLOO D ADD-ON [facility] [address] [place] [address], [facility] DTL [facility] [address] [place] [address] DHPM [facility] [address] [place] [address] * ECG 12 Lead (06/04/2023 4:02 PM PRESSER HAND) Ventricular Rate ECG/Min 83 BPM MUSE W[place] Interval 146 ms MUSE QRSD Interval 84 ms MUSE QT Interval 392 ms MUSE QTC Interval 460 ms MUSE P [place] 50 degrees MUSE R [place] 51 degrees MUSE T Wave [place] -10 degrees MUSE 06/04/2023 4:02 PM PRESSER HAND 06/04/2023 4:11 PM PRESSER HAND Impressions MUSE - 06/04/2023 4:11 PM PRESSER HAND Normal sinus rhythm Low voltage QRS Nonspecific ST and T wave abnormality No previous ECGs available Reviewed by BREANNA Schwarz Narrative Procedure Note Cornelius Amezcua M.D., Ph.D. - 06/04/2023 IMPRESSION: Normal sinus rhythm Low voltage QRS Nonspecific ST and T wave abnormality No previous ECGs available Reviewed by BREANNA Schwarz Svetomdenise Zuniga M.D., Ph.D. ECG [facility] MUSE NA * Interpretation of Outside NM PET Scan (06/04/2023 7:56 AM PRESSER HAND) Anatomical Region Laterality Modality Nuclear Medicine PET RST LOS , Nuclear Medicine ARZ LOS, Nuclear Medicine FLA LOS, Nuclear Medicine, Other, Neuroradiology ARZ LOS, Neuroradiology FLA LOS, Neuroradiology RST LOS, Body N/A Nuclear Medicine 06/10/2023 8:28 AM PRESSER HAND Impressions 06/10/2023 10:24 AM PRESSER HAND 1. Large intensely hypermetabolic mixed solid and [...] of the report. Narrative 06/10/2023 10:24 AM PRESSER HAND EXAM: ??INTERPRETATION OF OUTSIDE NM PET SCAN [...] of Outside MR Extremity (06/04/2023 7:54 AM PRESSER HAND) Anatomical Region Laterality Modality Musculoskeletal RST LOS, Mus culoskeletal ARZ LOS, Muskuloskeletal FLA LOS, Musculoskeletal, Other N/A Magnet ic Resonance 06/04/2023 11:3 3 AM PRESSER HAND Impressions 06/04/2023 11:45 AM PRESSER HAND There are several 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 The largest is seen proximally extending off of the proximal bbwah-ad-tepf. This involves the intertrochanteric left femur extending [...] diaphysis, which extends off of the proximal cbowp-kt-dvhl (series 3 and 4 image 15). The lesions right around the knee were not present on the MRI from October 2014 and correlate with areas of hypermetabolic activity on the recent PET CT. Findings are compatible with recent biopsy results of metastatic melanoma. Large awkyv-yl-skco coronal and axial images include the right femur, which demonstrates numerous large intramedullary lesions throughout the right femoral diaphysis as well as the proximal right tibial diaphysis, as well. No definite discrete soft tissue masses within either thigh. Narrative 06/04/2023 11:45 AM PRESSER HAND EXAM: ??INTERPRETATION OF OUTSIDE MR LEFT FEMUR [...] is seen proximally extending off of the hqlcauyazenfy-yt-mday. This involves the intertrochanteric left femur extendingdistally [...] tibial diaphysis, which extends offof the proximal qbktv-mm-lisz (series 3 and 4 image 15). The lesions right around the knee were not present on the MRIfrom October 2014 and correlate with areas of hypermetabolic activity on therecent PET CT. Findings are compatible with recent biopsy results ofmetastatic melanoma. Large hhebk-tm-tqia coronal and axial images include the right femur, whichdemonstrates numerous large intramedullary lesions throughout the rightfemoral diaphysis as well as the proximal right tibial diaphysis, as well.No definite discrete soft tissue masses within either thigh. Pérez Zuniga M.D., Ph.D. 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
--- OUTSIDE RECORDS SUMMARY | 2023-08-09 19:03 | XMS_ITS | Encounter Summary ---
Author Name Unknown Organization [facility] Address [address] [place] [address] Care Team Providers Care Agriculture Instructor Name Role Phone Unavailable Primary Care Provider Unavailabl e Reason for Visit * Reason Onset Date Comments Specialty Medication Delivery 06/05/2023 Encounter Details Date Type Department Care Team (Latest Contact Info) Description 06/05/2023 Clinical Communication [facility] [address] [place] [phone] Joanne Yoo C.Ph.T. Specialty Medication Delivery Social [...] Sex Assigned at Female 05/31/2023 8:26 AM SENIOR ANALYST DEVELOPER Gender Identity Female 05/31/2023 8:26 AM SENIOR ANALYST DEVELOPER Sexual Orientation Straight 05/31/2023 8: 26 AM SENIOR ANALYST DEVELOPER documented as of this encounter Plan of Treatment Upcoming Encounters Date Type Department Care Team ( st Contact Info) Description 08/19/2023 6:40 AM SENIOR ANALYST DEVELOPER Appointment Department of Laboratory Medicine and Pathology, [facility] in [place], [place] [address] [place] [phone] Pérez Zuniga M.D., Ph.D. [address] [place] [phone] 08/19/2023 7:00 AM SENIOR ANALYST DEVELOPER Ancillary Procedure Department of Cardiovascular Medicine in [place], [place] [address] [place] [phone] Pérez Zuniga M.D., Ph.D. [address] [place] [phone] 08/19/2023 9:00 AM SENIOR ANALYST DEVELOPER Appointment Department of Radiology, [facility] in [place], [place] [address] [place] [phone] Pérez Zuniga M.D., Ph.D. [address] [place] [phone] 08/19/2023 3:40 PM SENIOR ANALYST DEVELOPER Office Visit Department of Oncology in [address] [phone] Zhane Granados, MANUFACTURING EXECUTIVE, C.N.P. [address] [place] [phone] 08/21/2023 10:15 AM SENIOR ANALYST DEVELOPER Clinical Support Department of Palliative Care in [place], [place] [address] [place] [phone] Serenity Kelsey, P.A.-C. [address] [place] [phone] Meka Rinaldi D.N.P., R.N., [facility] documented as of this encounter Visit Diagnoses Not on filedocumented in this encounter Additional Health Concerns Infection Onset Date Last Indicated Resolved Time Protective Environment 06/04/2023 06/04/2023 documented as of this encounter
--- OUTSIDE RECORDS SUMMARY | 2023-08-09 19:03 | XMS_ITS | Encounter Summary ---
Author Name Unknown Organization [facility] Address [address] [place] [address] Care Team Providers Care Certified Medication Technician Name Role Phone Unavailable Primary Care Provider Unavailabl e Encounter Details Date Type Department Care Team (Late st Contact Info) Description 06/05/2023 Specialty Pharmacy [facility] [address] [place] [phone] Yessi Patel, Pharm.D., R.Ph. [address] [place] [phone] Social History Tobacco Use Types Packs/Day Years [...] Sex Assigned at Female 05/31/2023 8:26 AM BLOOD BANK TECHNOLOGIST Gender Identity Female 05/31/2023 8:26 AM BLOOD BANK TECHNOLOGIST Sexual Orientation Straight 05/31/2023 8: 26 AM BLOOD BANK TECHNOLOGIST documented as of this encounter Miscellaneous Notes * Telephone Encounter - Yessi Patel, Pharm.D., R.Ph. - 06/05/2023 1:59 PM CST Note created for purposes of potential enrollment with [facility] and medication interaction check via Glance App interaction wash test checker. No telephone contact with patient at this point. D BANK TECHNOLOGIST documented in this encounter Plan of Treatment Upcoming Encounters Date Type Department Care Team (Late st Contact Info) Description 08/19/2023 6:40 AM BLOOD BANK TECHNOLOGIST Appointment Department of Laboratory Medicine and Pathology, [facility] in [place], [place] [address] [place] [phone] Pérez Zuniga M.D., Ph.D. [address] [place] [phone] 08/19/2023 7:00 AM BLOOD BANK TECHNOLOGIST Ancillary Procedure Department of Cardiovascular Medicine in [place], [place] [address] [place] [phone] Pérez Zuniga M.D., Ph.D. [address] [place] [phone] 08/19/2023 9:00 AM BLOOD BANK TECHNOLOGIST Appointment Department of Radiology, [facility] in [place], [place] [address] [place] [phone] Pérez Zuniga M.D., Ph.D. [address] [place] [phone] 08/19/2023 3:40 PM BLOOD BANK TECHNOLOGIST Office Visit Department of Oncology in [place], [place] [address] [place] [phone] Zhane Granados APRN, C.N.P. [address] [place] [phone] 08/21/2023 10:15 AM BLOOD BANK TECHNOLOGIST Clinical Support Department of Palliative Care in [place], [place] [address] [place] [phone] Serenity Kelsey P.A.-C. [address] [place] [phone] Meka Rinaldi D.N.P., R.N., [facility] documented as of this encounter Visit Diagnoses Not on filedocumented in this encounter Additional Health Concerns Infection Onset Date Last Indicated Resolved Time Protective Environment 06/04/2023 06/04/2023 documented as of this encounter
--- OUTSIDE RECORDS SUMMARY | 2023-08-09 19:04 | XMS_ITS | Encounter Summary ---
Author Name Unknown Organization [facility] Address [address] [place] [address] Care Team Providers Care Fly Setter Name Role Phone Unavailable Primary Care Provider Unavailabl e Encounter Details Date Type Department Care Team (Late st Contact Info) Description 05/06/2023 Clinical Communication Department of Orthopedic Surgery in [place], [place] [address] [place] [phone] Prescheduling, Provider Social History Tobacco Use Types Packs/Day Years Used Date Smoking Tobacco: Never Assessed Nutrition Answer Date Recorded Nutrition: EVOO Fat Source Unknown 05/06 Nutrition: Servings of Fruits/Vegetables per Day Not on file 05/06/2023 Dental Answer Date Recorded Dental: Regular Dentist Unknown 05/06/20 Sex and Gender Information Value Date Recorded Sex Assigned at Female 05/31/2023 8:26 AM FUNDRAISING ASSISTANT Gender Identity Female 05/31/2023 8:26 AM FUNDRAISING ASSISTANT Sexual Orientation Straight 05/31/2023 8: 26 AM FUNDRAISING ASSISTANT documented as of this encounter Plan of Treatment Upcoming Encounters Date Type Department Care Team (Late st Contact Info) Description 08/19/2023 6:40 AM FUNDRAISING ASSISTANT Appointment Department of Laboratory Medicine and Pathology, [facility], in [place], [place] [address] [place] [phone] Pérez Zuniga M.D., Ph.D. [address] [place] [phone] 08/19/2023 7:00 AM FUNDRAISING ASSISTANT Ancillary Procedure Department of Cardiovascular Medicine in [place], [place] [address] [place] [phone] Pérez Zuniga M.D., Ph.D. [address] [place] [phone] 08/19/2023 9:00 AM FUNDRAISING ASSISTANT Appointment Department of Radiology, [facility] in [place], [place] [address] [place] [phone] Pérez Zuniga M.D., Ph.D. [address] [place] [phone] 08/19/2023 3:40 PM FUNDRAISING ASSISTANT Office Visit Department of Oncology in [place], [place] [address] [place] [phone] Zhane Granados, SENIOR JAVA ARCHITECT, C.N.P. [address] [place] [phone] 08/21/2023 10:15 AM FUNDRAISING ASSISTANT Clinical Support Department of Palliative Care in [place], [place] [address] [place] [phone] Serenity Kelsey, P.A.-C. [address] [place] [phone] Meka Rinaldi D.N.P., R.N., [facility] documented as of this encounter Visit Diagnoses Not on filedocumented in this encounter
--- OUTSIDE RECORDS SUMMARY | 2023-08-09 19:04 | XMS_ITS | Encounter Summary ---
Author Name Unknown Organization [facility] Address [address] [place] [address] Care Team Providers Care Media Planner / Buyer Name Role Phone Elsewhere, Pcp Primary Care Provider Unavailabl e Reason for Visit * Reason Onset Date Comments Pre-visit Testing Orders 05/28/2023 New Reg Encounter Details Date Type Department Care Team (Latest Contact Info) Description 05/28/2023 Clinical Communication Department of Oncology in [place], [place] [address] [place] [phone] Naida Mejia P.A.-C., M.S. [address] [place] [phone] Pre-visit Testing Orders (New Reg) Social History Tobacco Use Types Packs/Day Years Used Date Smoking Tobacco: Never Assessed Nutrition Answer Date Recorded Nutrition: EVOO Fat Source Unknown 05/06 Nutrition: Servings of Fruits/Vegetables per Day Not on file 05/06/2023 Dental Answer Date Recorded Dental: Regular Dentist Unknown 05/06/20 Sex and Gender Information Value Date Recorded Sex Assigned at Female 05/31/2023 8:26 AM FERRY ENGINEER Gender Identity Female 05/31/2023 8:26 AM FERRY ENGINEER Sexual Orientation Straight 05/31/2023 8: 26 AM FERRY ENGINEER documented as of this encounter Plan of Treatment Upcoming Encounters Date Type Department Care Team (Late st Contact Info) Description 08/19/2023 6:40 AM FERRY ENGINEER Appointment Department of Laboratory Medicine and Pathology, [facility] in [place], [place] [address] [place] [phone] Pérez Zuniga M.D., Ph.D. [address] [place] [phone] 08/19/2023 7:00 AM FERRY ENGINEER Ancillary Procedure Department of Cardiovascular Medicine in [place], [place] [address] [place] [phone] Pérez Zuniga M.D., Ph.D. [address] [place] [phone] 08/19/2023 9:00 AM FERRY ENGINEER Appointment Department of Radiology, [facility] in [place], [place] [address] [place] [phone] Pérez Zuniga M.D., Ph.D. [address] [place] [phone] 08/19/2023 3:40 PM FERRY ENGINEER Office Visit Department of Oncology in [place], [place] [address] [place] [phone] Zhane Granados, GAIL, C.N.P. [address] [place] [phone] 08/21/2023 10:15 AM FERRY ENGINEER Clinical Support Department of Palliative Care in [place], [place] [address] [place] [phone] Serenity Kelsey, P.A.-C. [address] [place] [phone] Meka Rinaldi D.N.P., R.N., [facility] documented as of this encounter Visit Diagnoses Not on filedocumented in this encounter Additional Health Concerns Infection Onset Date Last Indicated Resolved Time Protective Environment 06/04/2023 06/04/2023 documented as of this encounter Care Teams Media Planner / Buyer Relationship Specialty Start Date End Date Elsewhere, Pcp PCP - General Family Medicine 06/17/23 documented as of this encounter
--- OUTSIDE RECORDS SUMMARY | 2023-08-09 19:04 | XMS_ITS | Encounter Summary ---
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 200 [place] [phone] [facility] Referral ID Status Reason Start Date Expiration Date Visits Re quested Visits Authorized [id number] Closed 05/22/2023 05/21/2024 1 1 Scheduling Instructions Please coordinate with medical oncology visits, as able. 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 200 [place] [address] [facility] Referral ID Status Reason Start Date Expiration Date Visits Re quested Visits Authorized [id number] Closed 05/22/2023 05/21/2024 1 1 I SHARE PROGRAM COORDINATOR Encounter Details Date Type Department Care Team (Late st Contact Info) Description 05/22/2023 Clinical Communication Department of Oncology in [place], [place] [address] [place] [phone] Naida Mejia P.A.-C., M.S. [address] [place] [phone] Social History Tobacco Use Types Packs/Day Years Used Date Smoking Tobacco: Never Assessed Nutrition Answer Date Recorded Nutrition: EVOO Fat Source Unknown 05/06 Nutrition: Servings of Fruits/Vegetables per Day Not on file 05/06/2023 Dental Answer Date Recorded Dental: Regular Dentist Unknown 05/06/20 Sex and Gender Information Value Date Recorded Sex Assigned at Female 05/31/2023 8:26 AM MULTI SHARE PROGRAM COORDINATOR Gender Identity Female 05/31/2023 8:26 AM MULTI SHARE PROGRAM COORDINATOR Sexual Orientation Straight 05/31/2023 8: 26 AM MULTI SHARE PROGRAM COORDINATOR documented as of this encounter Miscellaneous Notes [...] External Pathology Dermatology for full skin exam I SHARE PROGRAM COORDINATOR documented in this encounter Plan of Treatment Upcoming Encounters Date Type Department Care Team (Late st Contact Info) Description 08/19/2023 6:40 AM MULTI SHARE PROGRAM COORDINATOR Appointment Department of Laboratory Medicine and Pathology, [facility], in [place], [place] [address] [place] [address] Pérez Zuniga M.D., Ph.D. [address] [place] [phone] 08/19/2023 7:00 AM MULTI SHARE PROGRAM COORDINATOR Ancillary Procedure Department of Cardiovascular Medicine in [place], [place] [address] [place] [phone] Pérez Zuniga M.D., Ph.D. [address] [place] [phone] 08/19/2023 9:00 AM MULTI SHARE PROGRAM COORDINATOR Appointment Department of Radiology, [facility], in [place], [place] [address] [place] [phone] Pérez Zuniga M.D., Ph.D. [address] [place] [phone] 08/19/2023 3:40 PM MULTI SHARE PROGRAM COORDINATOR Office Visit Department of Oncology in [place], [place] [address] [place] [phone] Zhane Granados, SUPERVISOR AIR CONDITIONING INSTALLER, C.N.P. [address] [place] [phone] 08/21/2023 10:15 AM MULTI SHARE PROGRAM COORDINATOR Clinical Support Department of Palliative Care in [place], [place] [address] [place] [phone] Serenity Kelsey, P.A.-C. 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 No significant associated mass effect or hydrocephalus. Narrative 05/30/2023 10:38 AM MULTI SHARE PROGRAM COORDINATOR EXAM: MR BRAIN WITHOUT AND WITH IV [...] venous anomaly. Procedure Note Antonio Wood M.D., [facility] - 05/30/2023 EXAM: MR BRAIN WITHOUT AND [...] IMG MRI PROCEDURES * (ABNORMAL) Thyroid Function Clinch (05/29/2023 5:35 PM MULTI SHARE PROGRAM COORDINATOR) TSH, Sensitive 4.7(H) 0.3 - 4.2 mIU/L 05/29/2023 6:46 PM MULTI SHARE PROGRAM COORDINATOR DTL Blood (Blood, Venous) 05/29/2023 5:35 PM MULTI SHARE PROGRAM COORDINATOR 05/29/2023 6:09 PM MULTI SHARE PROGRAM COORDINATOR Naida Mejia P.A.-C., M.S. LAB BLOO D ADD-ON Performing Organization Address City/[facility] [address]/ZIP Co de Phone Number [facility] [address] [facility] 200 [place] [address] * (ABNORMAL) LD (Lactate Dehydrogenase) (05/29/2023 5:35 PM MULTI SHARE PROGRAM COORDINATOR) Lactate Dehydrogenase (LD), S 439(H) 122 - 222 U/L 05/29/2023 6:46 PM MULTI SHARE PROGRAM COORDINATOR DTL Blood (Blood, Venous) 05/29/2023 5:35 PM MULTI SHARE PROGRAM COORDINATOR 05/29/2023 6:09 PM MULTI SHARE PROGRAM COORDINATOR Naida Mejia P.A.-C., M.S. LAB BLOO D NON ADD-ON [facility] 200 [place] [address] * (ABNORMAL) Comprehensive Metabolic Panel (05/29/2023 5:35 PM MULTI SHARE PROGRAM COORDINATOR) Potassium, S 3.7 3.6 - 5.2 mmol/L 05/29/2023 6:46 PM MULTI SHARE PROGRAM COORDINATOR DTL Sodium, S 134(L) 135 - 145 mmol/L 05/29/2023 6:46 PM MULTI SHARE PROGRAM COORDINATOR DTL Chloride, S 97(L) 98 - 107 mmol/L 05/29/2023 6:46 PM MULTI SHARE PROGRAM COORDINATOR DTL Bicarbonate, S 20(L) 22 - 29 mmol/L 05/29/2023 6:46 PM MULTI SHARE PROGRAM COORDINATOR DTL Anion Gap 17(H) 7 - 15 05/29/2023 6:46 PM MULTI SHARE PROGRAM COORDINATOR DTL BUN (Blood Urea Nitrogen), S 28(H) 6 - 21 mg/dL 05/29/2023 6:46 PM MULTI SHARE PROGRAM COORDINATOR DTL Creatinine 1.56(H) 0.59 - 1.04 mg/dL 05/29/2023 6:46 PM MULTI SHARE PROGRAM COORDINATOR DTL Estimated GFR (eGFR) 42(L) >=60 mL/min/BS A 05/29/2023 6:46 PM MULTI SHARE PROGRAM COORDINATOR DTL Comment: Estimated GFR calculated using the 2020 CKD_EPI creatinine equation. Calcium, Total, S 9.0 8.6 - 10.0 mg/dL 05/29/2023 6:46 PM MULTI SHARE PROGRAM COORDINATOR DTL Glucose, S 137 70 - 140 mg/dL 05/29/2023 6:46 PM MULTI SHARE PROGRAM COORDINATOR DTL Protein, Total, S 6.7 6.3 - 7.9 g/dL 05/29/2023 6:46 PM MULTI SHARE PROGRAM COORDINATOR DTL Albumin, S 3.4(L) 3.5 - 5.0 g/dL 05/29/2023 6:46 PM MULTI SHARE PROGRAM COORDINATOR DTL Aspartate Aminotransferase (AST), S 21 8 - 43 U/L 05/29/2023 6:46 PM MULTI SHARE PROGRAM COORDINATOR DTL Alkaline Phosphatase, S 132(H) 35 - 104 U/L 05/29/2023 6:46 PM MULTI SHARE PROGRAM COORDINATOR DTL Alanine Aminotransferase (ALT), S 9 7 - 45 U/L 05/29/2023 7:14 PM MULTI SHARE PROGRAM COORDINATOR DTL Bilirubin, Total, S 0.3 0.0 - 1.2 mg/dL 05/29/2023 6:46 PM MULTI SHARE PROGRAM COORDINATOR DTL Blood (Blood, Venous) 05/29/2023 5:35 PM MULTI SHARE PROGRAM COORDINATOR 05/29/2023 6:09 PM MULTI SHARE PROGRAM COORDINATOR Naida Mejia P.A.-C.Rajinder LAB BLOO D ADD-ON [facility] [address] [place] [address], [facility] DTL [facility] [address] [place] [address] * (ABNORMAL) CBC with Differential, Blood (05/29/2023 5:35 PM MULTI SHARE PROGRAM COORDINATOR) Hemoglobin 7.6(L) 11.6 - 15.0 g/dL 05/29/2023 6:02 PM MULTI SHARE PROGRAM COORDINATOR DTL Hematocrit 22.9(L) 35.5 - 44.9 % 05/29/2023 6:02 PM MULTI SHARE PROGRAM COORDINATOR DTL Erythrocytes 2.46(L) 3.92 - 5.13 x10(12)/L 05/29/2023 6:02 PM MULTI SHARE PROGRAM COORDINATOR DTL MCV 93.1 78.2 - 97.9 fL 05/29/2023 6:02 PM MULTI SHARE PROGRAM COORDINATOR DTL RBC Distrib Width 15.1 12.2 - 16.1 % 05/29/2023 6:02 PM MULTI SHARE PROGRAM COORDINATOR DTL Platelet Count 464(H) 157 - 371 x10(9)/L 05/29/2023 6:02 PM MULTI SHARE PROGRAM COORDINATOR DTL Leukocytes 14.9(H) 3.4 - 9.6 x10(9)/L 05/29/2023 6:02 PM MULTI SHARE PROGRAM COORDINATOR DTL Neutrophils 12.04(H) 1.56 - 6.45 x10(9)/L 05/29/2023 6:02 PM MULTI SHARE PROGRAM COORDINATOR DHPM Lymphocytes 1.39 0.95 - 3.07 x10(9)/L 05/29/2023 6:02 PM MULTI SHARE PROGRAM COORDINATOR DTL Monocytes 1.32(H) 0.26 - 0.81 x10(9)/L 05/29/2023 6:02 PM MULTI SHARE PROGRAM COORDINATOR DTL Eosinophils 0.11 0.03 - 0.48 x10(9)/L 05/29/2023 6:02 PM MULTI SHARE PROGRAM COORDINATOR DTL Basophils 0.05 0.01 - 0.08 x10(9)/L 05/29/2023 6:02 PM MULTI SHARE PROGRAM COORDINATOR DTL Blood (Blood, Venous) 05/29/2023 5:35 PM MULTI SHARE PROGRAM COORDINATOR 05/29/2023 5:52 PM MULTI SHARE PROGRAM COORDINATOR Naida Banegas Roberto Altman M.S. 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 06/24/2023 1:13 PM MULTI SHARE PROGRAM COORDINATOR DTL Additional Information CLINICAL TRIALS Possible clinical trials of benefit for this patient can be found at the following sites: 1) ClinicalTrials.gov: www.clinicaltrials. gov/ct2/search/adva nced 2) [facility]: www.[facility]/resear ch/clinical-trials/ 3) [employer] [place]: www.cancer.gov/clin icaltrials/search REFERENCE TRANSCRIPT Sequence variant nomenclature is based on the following RefSeq accession number (build GRCh37 (hg19)):BRAF [id number]. 06/24/2023 1:13 PM MULTI SHARE PROGRAM COORDINATOR DTL Specimen Tissue, Tumor 06/24/2023 1:13 PM MULTI SHARE PROGRAM COORDINATOR DTL Tissue ID [id number] 06/24/2023 1:13 PM MULTI SHARE PROGRAM COORDINATOR DTL Method Microscopic examination is performed by [...] and additional information on this test, see www.[employer]. [place] (Test ID BRFKT). 06/24/2023 1:13 PM MULTI SHARE PROGRAM COORDINATOR DTL Disclaimer This test cannot differentiate between [...] of heterozygosity) and sequencing artifact/misalignme nt [PMID: [id number], PMID: [id number]]. Rare polymorphisms may be present that could [...] developed and its performance characteristics determined by [facility] in a manner consistent with CLIA requirements. This test has not been cleared or approved by the U.S. Food and Drug Administration. 06/24/2023 1:13 PM MULTI SHARE PROGRAM COORDINATOR DTL Released By Lexy Lang M.D. 06/24/2023 1:13 PM MULTI SHARE PROGRAM COORDINATOR DTL Interpretation BRAF c.1799T>A (p.V600E) (Exon 15) BRAF encodes the signaling protein Braf, which is downstream of Eduardo and activates the MAPK pathway. Braf signaling is critically involved in the processes of cell division and differentiation. BRAF activating mutations occur predominantly at a single location (V600E). BRAF activating mutations or amplification have been reported to result in uncontrolled cell growth and tumorigenesis [PMID:[id number], PMID:21260483]. Clinically approved targeted therapy is available for patients with unresectable or metastatic solid tumors with a BRAF V600E mutation [fda.gov/drugs]. 06/24/2023 1:13 PM MULTI SHARE PROGRAM COORDINATOR DTL Tissue (Bone) 05/13/2023 8:2 7 AM CDT 06/16/2023 1:57 PM MULTI SHARE PROGRAM COORDINATOR Naida Mejia P.A.-C., M.S. 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
--- OUTSIDE RECORDS SUMMARY | 2023-08-09 19:04 | XMS_ITS | Encounter Summary ---
Author Name Unknown Organization [facility] Address [address] [place] [address] Care Team Providers Care Supply Chain Generalist Name Role Phone Unavailable Primary Care Provider Unavailabl e Encounter Details Date Type Department Care Team (Late st Contact Info) Description 05/30/2023 1:00 PM SEAFOOD PACKER Lab RST RO LMP [address] [place] [phone] Naida Mejia P.A.-Harsha., M.S. [address] [place] [phone] Melanoma Trunk (HCC); Secondary Malignant Neoplasm Bone [...] Sex Assigned at Female 05/31/2023 8:26 AM SEAFOOD PACKER Gender Identity Female 05/31/2023 8:26 AM SEAFOOD PACKER Sexual Orientation Straight 05/31/2023 8: 26 AM SEAFOOD PACKER documented as of this encounter Plan of Treatment Upcoming Encounters Date Type Department Care Team (Late st Contact Info) Description 08/19/2023 6:40 AM SEAFOOD PACKER Appointment Department of Laboratory Medicine and Pathology, [facility] in [place], [place] [address] [place] [phone] Pérez Zuniga M.D., Ph.D. [address] [place] [phone] 08/19/2023 7:00 AM SEAFOOD PACKER Ancillary Procedure Department of Cardiovascular Medicine in [place], [place] [address] [place] [phone] Pérez Zuniga M.D., Ph.D. [address] [place] [phone] 08/19/2023 9:00 AM SEAFOOD PACKER Appointment Department of Radiology, [facility] in [place], [place] [address] [place] [phone] Pérez Zuniga M.D., Ph.D. [address] [place] [phone] 08/19/2023 3:40 PM SEAFOOD PACKER Office Visit Department of Oncology in [address] [phone] Zhane Granados APRN, C.N.P. [address] [place] [phone] 08/21/2023 10:15 AM SEAFOOD PACKER Clinical Support Department of Palliative Care in [address] [phone] Serenity Kelsey, P.A.-C. 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 I verify that I have examined all relevant slides/materials for the specimen(s) and rendered or confirmed the diagnosis. 06/10/2023 3:51 PM SEAFOOD PACKER DTL Material Received A. [id number]: Left femur ? 22 stained slides, 20 unstained slides 06/10/2023 3:51 PM SEAFOOD PACKER DTL Addendum Genetic testing for BRAF/KIT Mutation Analysis, Tumor (BRFKT) ??will be performed and resulted in the patient's medical record. Signed by Cl Edwards M.D. 06/14/2023 10:19 AM 06/14/2023 10:19 AM SEAFOOD PACKER DTL Comment:REVISED RESULTS Interpretation FINAL DIAGNOSIS Left femur mass, biopsy ([id number]; 05/13/2023): Metastatic melanoma, diffusely positive for BRAF [...] not hesitate to reach me by calling [facility] [employer] at [phone]. 06/14/2023 10:19 AM SEAFOOD PACKER DTL Varies 05/13/2023 1:26 AM CDT 06/05/2023 7:18 PM SEAFOOD PACKER Naida Mejia P.A.-C. M.S. 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
--- OUTSIDE RECORDS SUMMARY | 2023-08-09 19:04 | XMS_ITS | Encounter Summary ---
Author Name Unknown Organization [facility] Address [address] [place] [address] Care Team Providers Care Dance Entertainer Name Role Phone Elsewhere, Pcp Primary Care Provider Unavailabl e Encounter Details Date Type Department Care Team (Late st Contact Info) Description 05/23/2023 Clinical Communication Department of Oncology in [place], [place] [address] [place] [phone] Naida Mejia P.A.-C., M.S. [address] [place] [phone] Social History Tobacco Use Types Packs/Day Years Used Date Smoking Tobacco: Never Assessed Nutrition Answer Date Recorded Nutrition: EVOO Fat Source Unknown 05/06 Nutrition: Servings of Fruits/Vegetables per Day Not on file 05/06/2023 Dental Answer Date Recorded Dental: Regular Dentist Unknown 05/06/20 Sex and Gender Information Value Date Recorded Sex Assigned at Female 05/31/2023 8:26 AM WEAPONS OFFICER Gender Identity Female 05/31/2023 8:26 AM WEAPONS OFFICER Sexual Orientation Straight 05/31/2023 8: 26 AM WEAPONS OFFICER documented as of this encounter Plan of Treatment Upcoming Encounters Date Type Department Care Team (Late st Contact Info) Description 08/19/2023 6:40 AM WEAPONS OFFICER Appointment Department of Laboratory Medicine and Pathology, [facility], in [place], [place] [address] [place] [phone] Pérez Zuniga M.D., Ph.D. [address] [place] [phone] 08/19/2023 7:00 AM WEAPONS OFFICER Ancillary Procedure Department of Cardiovascular Medicine in [place], [place] [address] [place] [phone] Pérez Zuniga M.D., Ph.D. [address] [place] [phone] 08/19/2023 9:00 AM WEAPONS OFFICER Appointment Department of Radiology, [facility] in [place], [place] [address] [place] [phone] Pérez Zuniga M.D., Ph.D. [address] [place] [phone] 08/19/2023 3:40 PM WEAPONS OFFICER Office Visit Department of Oncology in [place], [place] [address] [place] [phone] Zhane Granados, SERVICE ORDER DISPATCHER CHIEF, C.N.P. [address] [place] [phone] 08/21/2023 10:15 AM WEAPONS OFFICER Clinical Support Department of Palliative Care in [place], [place] [address] [place] [phone] Serenity Kelsey, P.A.-C. [address] [place] [phone] Meka Rinaldi D.N.P., R.N., [facility] documented as of this encounter Visit Diagnoses Not on filedocumented in this encounter Additional Health Concerns Infection Onset Date Last Indicated Resolved Time Protective Environment 06/04/2023 06/04/2023 documented as of this encounter Care Teams Dance Entertainer Relationship Specialty Start Date End Date Elsewhere, Pcp PCP - General Family Medicine 06/17/23 documented as of this encounter
--- OUTSIDE RECORDS SUMMARY | 2023-08-09 19:04 | XMS_ITS | Encounter Summary ---
Author Name Unknown Organization [facility] Address [address] [place] [address] Care Team Providers Care Safety Sealer Name Role Phone Unavailable Primary Care Provider Unavailabl e Encounter Details Date Type Department Care Team (Latest Contact Info) Description 05/29/2023 5:21 PM CHEMICAL ENGINEERING TECHNICIAN - 05/29/2023 5:49 PM CHEMICAL ENGINEERING TECHNICIAN Hospital Encounter Department of Laboratory Medicine and Pathology, [facility], in [place], [place] [address] [place] [address] Naida Mejia P.A.-C., M.S. [address] [place] [address] Melanoma Trunk (HCC); Secondary Malignant Neoplasm Bone [...] Sex Assigned at Female 05/31/2023 8:26 AM CHEMICAL ENGINEERING TECHNICIAN Gender Identity Female 05/31/2023 8:26 AM CHEMICAL ENGINEERING TECHNICIAN Sexual Orientation Straight 05/31/2023 8: 26 AM CHEMICAL ENGINEERING TECHNICIAN documented as of this encounter Medications at [...] st Contact Info) Description 08/19/2023 6:40 AM CHEMICAL ENGINEERING TECHNICIAN Appointment Department of Laboratory Medicine and Pathology, [place], [place] [address] [place] [phone] Pérez Zuniga M.D., Ph.D. [address] [place] [phone] 08/19/2023 7:00 AM CHEMICAL ENGINEERING TECHNICIAN Ancillary Procedure Department of Cardiovascular Medicine in [place], [place] [address] [place] [phone] Pérez Zuniga M.D., Ph.D. [address] [place] [phone] 08/19/2023 9:00 AM CHEMICAL ENGINEERING TECHNICIAN Appointment Department of Radiology, [facility] in [place], [place] [address] [place] [phone] Pérez Zuniga M.D., Ph.D. [address] [place] [phone] 08/19/2023 3:40 PM CHEMICAL ENGINEERING TECHNICIAN Office Visit Department of Oncology in [place], [place] [address] [place] [phone] Zhane Granados, GAIL, C.N.P. [address] [place] [phone] 08/21/2023 10:15 AM CHEMICAL ENGINEERING TECHNICIAN Clinical Support Department of Palliative Care in [place], [place] [address] [place] [phone] Serenity Kelsey P.A.-Harsha. 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) THYROPEROXIDASE (TPO) ABS, S Routine 05/29/2023 5:35 PM CHEMICAL ENGINEERING TECHNICIAN CBC WITH DIFFERENTIAL, B Routine 05/29/2023 5:35 PM CHEMICAL ENGINEERING TECHNICIAN 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) LACTATE DEHYDROGENASE (LD), S Routine 05/29/2023 5:35 PM CHEMICAL ENGINEERING TECHNICIAN 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 LAB BLOO D ADD-ON [facility] [address] [facility] 200 [place] [address] * Thyroperoxidase (TPO) Antibodies (05/29/2023 5:35 PM CHEMICAL ENGINEERING TECHNICIAN) Thyroperoxidase Ab, S 15.1 <34.0 IU/mL 05/29/2023 7:06 PM CHEMICAL ENGINEERING TECHNICIAN DTL Blood 05/29/2023 5:35 PM CHEMICAL ENGINEERING TECHNICIAN 05/29/2023 6:09 PM CHEMICAL ENGINEERING TECHNICIAN Naida Mejia P.A.-C., M.S. LAB BLOO D ADD-ON Performing Organization Address City/[facility]/ZIP Co de Phone Number [facility] [address] [place] [address], [facility] [address] [place] [address] * (ABNORMAL) Thyroid Function [place] (05/29/2023 5:35 PM CHEMICAL ENGINEERING TECHNICIAN) TSH, Sensitive 4.7(H) 0.3 - 4.2 mIU/L 05/29/2023 6:46 PM CHEMICAL ENGINEERING TECHNICIAN DTL Blood (Blood, Venous) 05/29/2023 5:35 PM CHEMICAL ENGINEERING TECHNICIAN 05/29/2023 6:09 PM CHEMICAL ENGINEERING TECHNICIAN Naida Mejia P.A.-C., M.S. LAB BLOO D ADD-ON [facility] [address] [place] [address], [facility] 200 [place] [address] * (ABNORMAL) LD (Lactate Dehydrogenase) (05/29/2023 5:35 PM CHEMICAL ENGINEERING TECHNICIAN) Lactate Dehydrogenase (LD), S 439(H) 122 - 222 U/L 05/29/2023 6:46 PM CHEMICAL ENGINEERING TECHNICIAN DTL Blood (Blood, Venous) 05/29/2023 5:35 PM CHEMICAL ENGINEERING TECHNICIAN 05/29/2023 6:09 PM CHEMICAL ENGINEERING TECHNICIAN Naida Mejia P.A.-C. MSantoshSSantosh LAB BLOO D NON ADD-ON [facility] 200 [place] [address], [facility] [address] [address] * (ABNORMAL) Comprehensive Metabolic Panel (05/29/2023 5:35 PM CHEMICAL ENGINEERING TECHNICIAN) Pathologist [facility] Potassium, S 3.7 3.6 - 5.2 mmol/L 05/29/2023 6:46 PM CHEMICAL ENGINEERING TECHNICIAN DTL Sodium, S 134(L) 135 - 145 mmol/L 05/29/2023 6:46 PM CHEMICAL ENGINEERING TECHNICIAN DTL Chloride, S 97(L) 98 - 107 mmol/L 05/29/2023 6:46 PM CHEMICAL ENGINEERING TECHNICIAN DTL Bicarbonate, S 20(L) 22 - 29 mmol/L 05/29/2023 6:46 PM CHEMICAL ENGINEERING TECHNICIAN DTL Anion Gap 17(H) 7 - 15 05/29/2023 6:46 PM CHEMICAL ENGINEERING TECHNICIAN DTL BUN (Blood Urea Nitrogen), S 28(H) 6 - 21 mg/dL 05/29/2023 6:46 PM CHEMICAL ENGINEERING TECHNICIAN DTL Creatinine 1.56(H) 0.59 - 1.04 mg/dL 05/29/2023 6:46 PM CHEMICAL ENGINEERING TECHNICIAN DTL Estimated GFR (eGFR) 42(L) >=60 mL/min/BS A 05/29/2023 6:46 PM CHEMICAL ENGINEERING TECHNICIAN DTL Comment: Estimated GFR calculated using the 2020 CKD_EPI creatinine equation. Calcium, Total, S 9.0 8.6 - 10.0 mg/dL 05/29/2023 6:46 PM CHEMICAL ENGINEERING TECHNICIAN DTL Glucose, S 137 70 - 140 mg/dL 05/29/2023 6:46 PM CHEMICAL ENGINEERING TECHNICIAN DTL Protein, Total, S 6.7 6.3 - 7.9 g/dL 05/29/2023 6:46 PM CHEMICAL ENGINEERING TECHNICIAN DTL Albumin, S 3.4(L) 3.5 - 5.0 g/dL 05/29/2023 6:46 PM CHEMICAL ENGINEERING TECHNICIAN DTL Aspartate Aminotransferase (AST), S 21 8 - 43 U/L 05/29/2023 6:46 PM CHEMICAL ENGINEERING TECHNICIAN DTL Alkaline Phosphatase, S 132(H) 35 - 104 U/L 05/29/2023 6:46 PM CHEMICAL ENGINEERING TECHNICIAN DTL Alanine Aminotransferase (ALT), S 9 7 - 45 U/L 05/29/2023 7:14 PM CHEMICAL ENGINEERING TECHNICIAN DTL Bilirubin, Total, S 0.3 0.0 - 1.2 mg/dL 05/29/2023 6:46 PM CHEMICAL ENGINEERING TECHNICIAN DTL Blood (Blood, Venous) 05/29/2023 5:35 PM CHEMICAL ENGINEERING TECHNICIAN 05/29/2023 6:09 PM CHEMICAL ENGINEERING TECHNICIAN Naida Mejia P.A.-C. M.S. LAB BLOO D ADD-ON [address] [address], [facility] [address] [address] * (ABNORMAL) CBC with Differential, Blood (05/29/2023 5:35 PM CHEMICAL ENGINEERING TECHNICIAN) Hemoglobin 7.6(L) 11.6 - 15.0 g/dL 05/29/2023 6:02 PM CHEMICAL ENGINEERING TECHNICIAN DTL Hematocrit 22.9(L) 35.5 - 44.9 % 05/29/2023 6:02 PM CHEMICAL ENGINEERING TECHNICIAN DTL Erythrocytes 2.46(L) 3.92 - 5.13 x10(12)/L 05/29/2023 6:02 PM CHEMICAL ENGINEERING TECHNICIAN DTL MCV 93.1 78.2 - 97.9 fL 05/29/2023 6:02 PM CHEMICAL ENGINEERING TECHNICIAN DTL RBC Distrib Width 15.1 12.2 - 16.1 % 05/29/2023 6:02 PM CHEMICAL ENGINEERING TECHNICIAN DTL Platelet Count 464(H) 157 - 371 x10(9)/L 05/29/2023 6:02 PM CHEMICAL ENGINEERING TECHNICIAN DTL Leukocytes 14.9(H) 3.4 - 9.6 x10(9)/L 05/29/2023 6:02 PM CHEMICAL ENGINEERING TECHNICIAN DTL Neutrophils 12.04(H) 1.56 - 6.45 x10(9)/L 05/29/2023 6:02 PM CHEMICAL ENGINEERING TECHNICIAN DHPM Lymphocytes 1.39 0.95 - 3.07 x10(9)/L 05/29/2023 6:02 PM CHEMICAL ENGINEERING TECHNICIAN DTL Monocytes 1.32(H) 0.26 - 0.81 x10(9)/L 05/29/2023 6:02 PM CHEMICAL ENGINEERING TECHNICIAN DTL Eosinophils 0.11 0.03 - 0.48 x10(9)/L 05/29/2023 6:02 PM CHEMICAL ENGINEERING TECHNICIAN DTL Basophils 0.05 0.01 - 0.08 x10(9)/L 05/29/2023 6:02 PM CHEMICAL ENGINEERING TECHNICIAN DTL Blood (Blood, Venous) 05/29/2023 5:35 PM CHEMICAL ENGINEERING TECHNICIAN 05/29/2023 5:52 PM CHEMICAL ENGINEERING TECHNICIAN Naida Mejia P.A.-C., M.S. 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
--- OUTSIDE RECORDS SUMMARY | 2023-08-09 19:04 | XMS_ITS | Encounter Summary ---
Author Name Unknown Organization [facility] Address [address] [place] [address] Care Team Providers Care De Icer Name Role Phone Unavailable Primary Care Provider Unavailabl e Reason for Visit * MRI/CAT/PET Scan (Routine) - Authorized Specialty Diagnoses / Procedures Referred By Mikki feliciano Referred To Contact Radiology Diagnoses Tumor Bone Procedures CT Bone Biopsy Lacho Joshi M.D. [address] [place] [phone] [facility] Referral ID Status Reason Start Date Expiration Date V isits Requested Visits Authorized [id number] Authorized 05/07/2023 05/06/2024 1 1 Encounter Details Date Type Department Care Team (Latest Contact Info) Description 05/13/2023 11:59 PM CDT Hospital Encounter Department of Radiology, [facility] in [place], [place] [address] [place] [address] Lacho Joshi M.D. [address] [place] [phone] Canceled (Patient: Request) Discharge Disposition: Home or [...] Sex Assigned at Female 05/31/2023 8:26 AM MEAL COOKER Gender Identity Female 05/31/2023 8:26 AM MEAL COOKER Sexual Orientation Straight 05/31/2023 8: 26 AM MEAL COOKER documented as of this encounter Medications at [...] st Contact Info) Description 08/19/2023 6:40 AM MEAL COOKER Appointment Department of Laboratory Medicine and Pathology, [place], [place] [address] [place] [phone] Pérez Zuniga M.D., Ph.D. [address] [place] [phone] 08/19/2023 7:00 AM MEAL COOKER Ancillary Procedure Department of Cardiovascular Medicine in [place], [place] [address] [place] [phone] Pérez Zuniga M.D., Ph.D. [address] [place] [phone] 08/19/2023 9:00 AM MEAL COOKER Appointment Department of Radiology, [facility] in [place], [place] [address] [place] [address] Pérez Zuniga M.D., Ph.D. [address] [place] [phone] 08/19/2023 3:40 PM MEAL COOKER Office Visit Department of Oncology in [place], [place] [address] [place] [phone] Zhane Granados APRN, C.N.P. [address] [place] [phone] 08/21/2023 10:15 AM MEAL COOKER Clinical Support Department of Palliative Care in [place], [place] [address] [place] [phone] Serenity Kelsey, P.A.-C. [address] [place] [phone] Meka Rinaldi D.N.P., R.N., [facility] documented as of this encounter Visit Diagnoses Not on filedocumented in this encounter
--- OUTSIDE RECORDS SUMMARY | 2023-08-09 19:04 | XMS_ITS | Encounter Summary ---
Author Name Unknown Organization [facility] Address [address] [place] [address] Care Team Providers Care Sow Farm Barn Technician Name Role Phone Elsewhere, Pcp Primary Care Provider Unavailabl e Reason for Visit * Reason Onset Date Comments [facility] 05/23/2023 Med Onc Encounter Details Date Type Department Care Team (Late st Contact Info) Description 05/23/2023 Clinical Communication Department of Oncology in [place], [place] [address] [place] [phone] Provider, Unknown [facility] (Med Onc) Social History Tobacco Use Types Packs/Day Years Used Date Smoking Tobacco: Never Assessed Nutrition Answer Date Recorded Nutrition: EVOO Fat Source Unknown 05/06 Nutrition: Servings of Fruits/Vegetables per Day Not on file 05/06/2023 Dental Answer Date Recorded Dental: Regular Dentist Unknown 05/06/20 Sex and Gender Information Value Date Recorded Sex Assigned at Female 05/31/2023 8:26 AM SENIOR SOFTWARE QA ENGINEER Gender Identity Female 05/31/2023 8:26 AM SENIOR SOFTWARE QA ENGINEER Sexual Orientation Straight 05/31/2023 8: 26 AM SENIOR SOFTWARE QA ENGINEER documented as of this encounter Plan of Treatment Upcoming Encounters Date Type Department Care Team (Late st Contact Info) Description 08/19/2023 6:40 AM SENIOR SOFTWARE QA ENGINEER Appointment Department of Laboratory Medicine and Pathology, [facility], in [place], [place] [address] [place] [address] Pérez Zuniga M.D., Ph.D. [address] [place] [phone] 08/19/2023 7:00 AM SENIOR SOFTWARE QA ENGINEER Ancillary Procedure Department of Cardiovascular Medicine in [place], [place] [address] [place] [phone] Pérez Zuniga M.D., Ph.D. [address] [place] [phone] 08/19/2023 9:00 AM SENIOR SOFTWARE QA ENGINEER Appointment Department of Radiology, [facility], in [address] [phone] Pérez Zuniga M.D., Ph.D. [address] [place] [phone] 08/19/2023 3:40 PM SENIOR SOFTWARE QA ENGINEER Office Visit Department of Oncology in [address] [phone] Zhane Granados, COPY CUTTER, C.N.P. [address] [place] [phone] 08/21/2023 10:15 AM SENIOR SOFTWARE QA ENGINEER Clinical Support Department of Palliative Care in [address] [phone] Serenity Kelsey, P.A.-C. [address] [place] [phone] Meka Rinaldi D.N.P., R.N., [facility] documented as of this encounter Visit Diagnoses Not on filedocumented in this encounter Additional Health Concerns Infection Onset Date Last Indicated Resolved Time Protective Environment 06/04/2023 06/04/2023 documented as of this encounter Care Teams Sow Farm Barn Technician Relationship Specialty Start Date End Date Elsewhere, Pcp PCP - General Family Medicine 06/17/23 documented as of this encounter
--- OUTSIDE RECORDS SUMMARY | 2023-08-09 19:04 | XMS_ITS | Encounter Summary ---
Author Name Unknown Organization [facility] Address [address] [place] [address] Care Team Providers Care Associate Professor Of Criminal Justice Name Role Phone Unavailable Primary Care Provider Unavailabl e Reason for Referral * MRI/CAT/PET Scan (Routine) - Authorized Specialty Diagnoses / Procedures Referred By Mikki feliciano Referred To Contact Radiology Diagnoses Tumor Bone Procedures CT Bone Biopsy Lacho Joshi M.D. 200 [place] [phone] [facility] Referral ID Status Reason Start Date Expiration Date V isits Requested Visits Authorized [id number] Authorized 05/07/2023 05/06/2024 1 1 * Outpatient (Routine) - Authorized Specialty Diagnoses / Procedures Referred By Mikki feliciano Referred To Contact Diagnoses Tumor Bone Procedures DX Femur Left 2 Views Lacho Joshi M.D. [address] [place] [phone] [facility] Referral ID Status Reason Start Date Expiration Date V isits Requested Visits Authorized [id number] Authorized 05/07/2023 05/06/2024 1 1 Encounter Details Date Type Department Care Team (Late st Contact Info) Description 05/07/2023 Orders Only Department of Orthopedic Surgery in [place], [place] [address] [place] [phone] Lacho Joshi M.D. [address] [place] [phone] Tumor Bone (Primary Dx) Social History Tobacco Use Types Packs/Day Years Used Date Smoking Tobacco: Never Assessed Nutrition Answer Date Recorded Nutrition: EVOO Fat Source Unknown 05/06 Nutrition: Servings of Fruits/Vegetables per Day Not on file 05/06/2023 Dental Answer Date Recorded Dental: Regular Dentist Unknown 05/06/20 Sex and Gender Information Value Date Recorded Sex Assigned at Female 05/31/2023 8:26 AM INSPECTOR [employer] Gender Identity Female 05/31/2023 8:26 AM INSPECTOR [employer] Sexual Orientation Straight 05/31/2023 8: 26 AM INSPECTOR [employer] documented as of this encounter Plan of Treatment Upcoming Encounters Date Type Department Care Team (Late st Contact Info) Description 08/19/2023 6:40 AM INSPECTOR [employer] Appointment Department of Laboratory Medicine and Pathology, [facility] in [place], [place] [address] [place] [phone] Pérez Zuniga M.D., Ph.D. [address] [place] [phone] 08/19/2023 7:00 AM INSPECTOR [employer] Ancillary Procedure Department of Cardiovascular Medicine in [place], [place] [address] [place] [phone] Pérez Zuniga M.D., Ph.D. [address] [place] [phone] 08/19/2023 9:00 AM INSPECTOR [employer] Appointment Department of Radiology, [facility] in [place], [place] [address] [place] [phone] Pérez Zuniga M.D., Ph.D. [address] [place] [phone] 08/19/2023 3:40 PM INSPECTOR [employer] Office Visit Department of Oncology in [place], [place] [address] [place] [phone] Zhane Granados APRN, C.N.P. [address] [place] [phone] 08/21/2023 10:15 AM INSPECTOR [employer] Clinical Support Department of Palliative Care in [place], [place] [address] [place] [phone] Serenity Kelsey, PSantoshA.-C. [address] [place] [phone] Meka Rinaldi D.N.P., R.N., [facility] Scheduled Orders Name Type Priority Associated Diagnoses [...]
--- OUTSIDE RECORDS SUMMARY | 2023-08-09 19:04 | XMS_ITS | Encounter Summary ---
Author Name Unknown Organization [facility] Address [address] [place] [address] Care Team Providers Care Coin Wrapping Machine Operator Name Role Phone Unavailable Primary Care Provider Unavailabl e Reason for Visit * Reason Onset Date Comments Pre-visit Intake 05/22/2023 NEW REG Encounter Details Date Type Department Care Team (Latest Contact Info) Description 05/22/2023 Clinical Communication Department of Oncology in [place], [place] [address] [place] [phone] Prescheduling, Provider Pre-visit Intake (NEW REG ) Social History Tobacco Use Types Packs/Day Years Used Date Smoking Tobacco: Never Assessed Nutrition Answer Date Recorded Nutrition: EVOO Fat Source Unknown 05/06 Nutrition: Servings of Fruits/Vegetables per Day Not on file 05/06/2023 Dental Answer Date Recorded Dental: Regular Dentist Unknown 05/06/20 Sex and Gender Information Value Date Recorded Sex Assigned at Female 05/31/2023 8:26 AM CATTLE FEEDER Gender Identity Female 05/31/2023 8:26 AM CATTLE FEEDER Sexual Orientation Straight 05/31/2023 8: 26 AM CATTLE FEEDER documented as of this encounter Plan of Treatment Upcoming Encounters Date Type Department Care Team (Late st Contact Info) Description 08/19/2023 6:40 AM CATTLE FEEDER Appointment Department of Laboratory Medicine and Pathology, [facility], in [place], [place] [address] [place] [address] Pérez Zuniga M.D., Ph.D. [address] [place] [phone] 08/19/2023 7:00 AM CATTLE FEEDER Ancillary Procedure Department of Cardiovascular Medicine in [place], [place] [address] [place] [address] Pérez Zuniga M.D., Ph.D. [address] [place] [phone] 08/19/2023 9:00 AM CATTLE FEEDER Appointment Department of Radiology, [facility], in [place], [place] [address] [place] [address] Pérez Zuniga M.D., Ph.D. [address] [place] [phone] 08/19/2023 3:40 PM CATTLE FEEDER Office Visit Department of Oncology in [place], [place] [address] [place] [phone] Zhane Granados, NEGATIVE NOTCHER, C.N.P. [address] [place] [phone] 08/21/2023 10:15 AM CATTLE FEEDER Clinical Support Department of Palliative Care in [place], [place] [address] [place] [address] Serenity Kelsey, P.A.-C. [address] [place] [phone] Meka Rinaldi, Elvin.N.P., R.N., [facility] documented as of this encounter Visit Diagnoses Not on filedocumented in this encounter
--- OUTSIDE RECORDS SUMMARY | 2023-08-09 19:04 | XMS_ITS | Encounter Summary ---
Author Name Unknown Organization [facility] Address [address] [place] [address] Care Team Providers Care Clam Shovel Operator Name Role Phone Unavailable Primary Care Provider Unavailabl e Encounter Details Date Type Department Care Team (Late st Contact Info) Description 05/24/2023 7:55 AM RESEARCH MICROBIOLOGIST Lab RST RO LMP [address] [place] [phone] Naida Mejia P.A.-C., M.S. [address] [place] [phone] Melanoma Trunk (HCC); Secondary Malignant Neoplasm Bone [...] Sex Assigned at Female 05/31/2023 8:26 AM RESEARCH MICROBIOLOGIST Gender Identity Female 05/31/2023 8:26 AM RESEARCH MICROBIOLOGIST Sexual Orientation Straight 05/31/2023 8: 26 AM RESEARCH MICROBIOLOGIST documented as of this encounter Plan of Treatment Upcoming Encounters Date Type Department Care Team (Late st Contact Info) Description 08/19/2023 6:40 AM RESEARCH MICROBIOLOGIST Appointment Department of Laboratory Medicine and Pathology, [facility] in [place], [place] [address] [place] [phone] Pérez Zuniga M.D., Ph.D. [address] [place] [phone] 08/19/2023 7:00 AM RESEARCH MICROBIOLOGIST Ancillary Procedure Department of Cardiovascular Medicine in [place], [place] [address] [place] [phone] Pérez Zuniga M.D., Ph.D. [address] [place] [phone] 08/19/2023 9:00 AM RESEARCH MICROBIOLOGIST Appointment Department of Radiology, [facility] in [place], [place] [address] [place] [phone] Pérez Zuniga M.D., Ph.D. [address] [place] [phone] 08/19/2023 3:40 PM RESEARCH MICROBIOLOGIST Office Visit Department of Oncology in [address] [phone] Zhane Granados, GAIL, C.N.P. [address] [place] [phone] 08/21/2023 10:15 AM RESEARCH MICROBIOLOGIST Clinical Support Department of Palliative Care in [place], [place] [address] [place] [phone] Serenity Kelsey, P.A.-C. [address] [place] [phone] Meka Rinaldi D.N.P., R.N., [facility] documented as of this encounter Procedures Procedure [...] c.1799T>A (Exon 15) Amino Acid Change: p.V600E (Uwt518Vzo) Variant Allele Frequency: 49.9% No other reportable sequence variants were detected within the analyzed regions of the tested genes listed in the method description. 06/24/2023 1:13 PM RESEARCH MICROBIOLOGIST DTL Additional Information CLINICAL TRIALS Possible clinical trials of benefit for this patient can be found at the following sites: 1) ClinicalTrials.gov: www.clinicaltrials. gov/ct2/search/adva nced 2) [facility]: www.[facility]/resear ch/clinical-trials/ 3) [employer] [place]: www.cancer.gov/clin icaltrials/search REFERENCE TRANSCRIPT Sequence variant nomenclature is based on the following RefSeq accession number (build GRCh37 (hg19)):BRAF [id number]. 06/24/2023 1:13 PM RESEARCH MICROBIOLOGIST DTL Specimen Tissue, Tumor 06/24/2023 1:13 PM RESEARCH MICROBIOLOGIST DTL Tissue ID [id number] 06/24/2023 1:13 PM RESEARCH MICROBIOLOGIST DTL Method Microscopic examination is performed by [...] and additional information on this test, see www.[facility]. [employer] (Test ID BRFKT). 06/24/2023 1:13 PM RESEARCH MICROBIOLOGIST DTL Disclaimer This test cannot differentiate between [...] of heterozygosity) and sequencing artifact/misalignme nt [PMID: [id number], PMID: [id number]]. Rare polymorphisms may be present that could [...] its performance characteristics determined by [facility] in a manner consistent with CLIA requirements. This test has not been cleared or approved by the U.S. Food and Drug Administration. 06/24/2023 1:13 PM RESEARCH MICROBIOLOGIST DTL Released By Lexy Lang M.D. 06/24/2023 1:13 PM RESEARCH MICROBIOLOGIST DTL Interpretation BRAF c.1799T>A (p.V600E) (Exon 15) BRAF encodes the signaling protein Braf, which is downstream of Eduardo and activates the MAPK pathway. Braf signaling is critically involved in the processes of cell division and differentiation. BRAF activating mutations occur predominantly at a single location (V600E). BRAF activating mutations or amplification have been reported to result in uncontrolled cell growth and tumorigenesis [PMID:[id number], PMID:[id number]]. Clinically approved targeted therapy is available for patients with unresectable or metastatic solid tumors with a BRAF V600E mutation [fda.gov/drugs]. 06/24/2023 1:13 PM RESEARCH MICROBIOLOGIST DTL Tissue (Bone) 05/13/2023 8:2 7 AM CDT 06/16/2023 1:57 PM RESEARCH MICROBIOLOGIST Naida Mejia P.A.-C. MSantoshS. 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
--- OUTSIDE RECORDS SUMMARY | 2023-08-09 19:04 | XMS_ITS | Encounter Summary ---
Author Name Unknown Organization [facility] Address [address] [place] [address] Care Team Providers Care Sports Centre Manager Name Role Phone Elsewhere, Pcp Primary Care Provider Unavailabl e Reason for Visit * Reason Onset Date Comments Pre-visit Testing Orders 05/29/2023 Encounter Details Date Type Department Care Team (Latest Contact Info) Description 05/29/2023 Clinical Communication Department of Oncology in [place], [place] [address] [place] [phone] Naida Mejia P.A.-C., M.S. [address] [place] [phone] Pre-visit Testing Orders Social History Tobacco Use Types Packs/Day Years Used Date Smoking Tobacco: Never Assessed Nutrition Answer Date Recorded Nutrition: EVOO Fat Source Unknown 05/06 Nutrition: Servings of Fruits/Vegetables per Day Not on file 05/06/2023 Dental Answer Date Recorded Dental: Regular Dentist Unknown 05/06/20 Sex and Gender Information Value Date Recorded Sex Assigned at Female 05/31/2023 8:26 AM STRATIGRAPHER Gender Identity Female 05/31/2023 8:26 AM STRATIGRAPHER Sexual Orientation Straight 05/31/2023 8: 26 AM STRATIGRAPHER documented as of this encounter Plan of Treatment Upcoming Encounters Date Type Department Care Team (Late st Contact Info) Description 08/19/2023 6:40 AM STRATIGRAPHER Appointment Department of Laboratory Medicine and Pathology, [facility] in [place], [place] [address] [place] [phone] Pérez Zuniga M.D., Ph.D. [address] [place] [phone] 08/19/2023 7:00 AM STRATIGRAPHER Ancillary Procedure Department of Cardiovascular Medicine in [place], [place] [address] [place] [phone] Pérez Zuniga M.D., Ph.D. [address] [place] [phone] 08/19/2023 9:00 AM STRATIGRAPHER Appointment Department of Radiology, [facility] in [place], [place] [address] [place] [phone] Pérez Zuniga M.D., Ph.D. [address] [place] [phone] 08/19/2023 3:40 PM STRATIGRAPHER Office Visit Department of Oncology in [place], [place] [address] [place] [phone] Zhane Granados, MECHANICAL RESEARCH ENGINEER, C.N.P. [address] [place] [phone] 08/21/2023 10:15 AM STRATIGRAPHER Clinical Support Department of Palliative Care in [place], [place] [address] [place] [phone] Serenity Kelsey, P.A.-C. [address] [place] [phone] Meka Rinaldi D.N.P., R.N., [facility] documented as of this encounter Results * Pathology Review of Outside Material (05/13/2023 1:26 AM CDT) 06/10/2023 3:51 PM STRATIGRAPHER DTL Participated in the Interpretation Yann Dixon M.D.-Pathology Fellow 06/10/2023 3:51 PM STRATIGRAPHER DTL Report electronically signed by Jose Willis M.D. I verify that I have examined all relevant slides/materials for the specimen(s) and rendered or confirmed the diagnosis. 06/10/2023 3:51 PM STRATIGRAPHER DTL Material Received A. [id number]: Left femur ? 22 stained slides, 20 unstained slides 06/10/2023 3:51 PM STRATIGRAPHER DTL Addendum Genetic testing for BRAF/KIT Mutation Analysis, Tumor (BRFKT) ??will be performed and resulted in the patient's medical record. Signed by Cl Edwards M.D. 06/14/2023 10:19 AM 06/14/2023 10:19 AM STRATIGRAPHER DTL Comment:REVISED RESULTS Interpretation FINAL DIAGNOSIS Left femur mass, biopsy ([id number]; 05/13/2023): Metastatic melanoma, diffusely positive for BRAF [...] not hesitate to reach me by calling [facility] [employer] at [phone]. 06/14/2023 10:19 AM STRATIGRAPHER DTL Varies 05/13/2023 1:26 AM CDT 06/05/2023 7:18 PM STRATIGRAPHER Naida Mejia P.A.-C. MSantoshS. 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
--- OUTSIDE RECORDS SUMMARY | 2023-08-09 19:04 | XMS_ITS | Encounter Summary ---
Author Name Unknown Organization [facility] Address [address] [place] [address] Care Team Providers Care Oracle Applications Developer Name Role Phone Unavailable Primary Care Provider Unavailabl e Encounter Details Date Type Department Care Team (Late st Contact Info) Description 05/29/2023 2:15 PM COMPUTER EQUIPMENT INSTALLER Admin Visit Department of Oncology in [place], [place] [address] [place] [phone] Social History Tobacco Use Types Packs/Day Years Used Date Smoking Tobacco: Never Assessed Nutrition Answer Date Recorded Nutrition: EVOO Fat Source Unknown 05/06 Nutrition: Servings of Fruits/Vegetables per Day Not on file 05/06/2023 Dental Answer Date Recorded Dental: Regular Dentist Unknown 05/06/20 Sex and Gender Information Value Date Recorded Sex Assigned at Female 05/31/2023 8:26 AM COMPUTER EQUIPMENT INSTALLER Gender Identity Female 05/31/2023 8:26 AM COMPUTER EQUIPMENT INSTALLER Sexual Orientation Straight 05/31/2023 8: 26 AM COMPUTER EQUIPMENT INSTALLER documented as of this encounter Plan of Treatment Upcoming Encounters Date Type Department Care Team (Late Contact Info) Description 08/19/2023 6:40 AM COMPUTER EQUIPMENT INSTALLER Appointment Department of Laboratory Medicine and Pathology, [facility], in [place], [place] [address] [place] [phone] Pérez Zuniga M.D., Ph.D. [address] [place] [phone] 08/19/2023 7:00 AM COMPUTER EQUIPMENT INSTALLER Ancillary Procedure Department of Cardiovascular Medicine in [place], [place] [address] [place] [address] Pérez Zuniga M.D., Ph.D. [address] [place] [phone] 08/19/2023 9:00 AM COMPUTER EQUIPMENT INSTALLER Appointment Department of Radiology, [facility] in [place], [place] [address] [place] [address] Pérez Zuniga M.D., Ph.D. [address] [place] [phone] 08/19/2023 3:40 PM COMPUTER EQUIPMENT INSTALLER Office Visit Department of Oncology in [place], [place] [address] [place] [phone] Zhane Granados, SAP FICO BUSINESS ANALYST, C.N.P. [address] [place] [phone] 08/21/2023 10:15 AM COMPUTER EQUIPMENT INSTALLER Clinical Support Department of Palliative Care in [place], [place] [address] [place] [phone] Serenity Kelsey, P.A.-C. [address] [place] [phone] Meka Rinaldi D.N.P., R.N., [facility] documented as of this encounter Visit Diagnoses Not on filedocumented in this encounter
--- OUTSIDE RECORDS SUMMARY | 2023-08-09 19:04 | XMS_ITS | Encounter Summary ---
Author Name Unknown Organization [facility] Address [address] [place] [address] Care Team Providers Care Epic Kaleidoscope Analyst Name Role Phone Unavailable Primary Care Provider Unavailabl e Reason for Referral * MRI/CAT/PET Scan (Routine) - Closed Specialty Diagnoses / Procedures Referred By Mikki feliciano Referred To Contact Radiology Diagnoses 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) Procedures MR Brain without and with IV Contrast Naida Mejia P.A.-C., M.S. [address] [place] [phone] [facility] Referral ID Status Reason Start Date Expiration Date Visits Re quested Visits Authorized [id number] Closed 05/22/2023 05/21/2024 1 1 CILPERSON Reason for Visit * MRI/CAT/PET Scan (Routine) - Closed Specialty Diagnoses / Procedures Referred By Mikki feliciano Referred To Contact Radiology Diagnoses 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) Procedures MR Brain without and with IV Contrast Naida Mejia P.A.-C., M.S. [address] [place] [phone] [facility] Referral ID Status Reason Start Date Expiration Date Visits Re quested Visits Authorized [id number] Closed 05/22/2023 05/21/2024 1 1 Encounter Details Date Type Department Care Team (Latest Contact Info) Description 05/29/2023 5:50 PM COUNCILPERSON - 05/29/2023 11:59 PM COUNCILPERSON Hospital Encounter Department of Radiology, [facility] in [place], [place] [address] [place] [address] Naida Mejia P.A.-C., M.S. [address] [place] [address] Melanoma Trunk (HCC); Secondary Malignant Neoplasm Bone [...] Sex Assigned at Female 05/31/2023 8:26 AM COUNCILPERSON Gender Identity Female 05/31/2023 8:26 AM COUNCILPERSON Sexual Orientation Straight 05/31/2023 8: 26 AM COUNCILPERSON documented as of this encounter Last Filed Vital Signs Vital Sign Reading Time Taken Comments Blood Pressure - - Pulse - - Temperature - - Respiratory Rate - - Oxygen Saturation - - Inhaled Oxygen Concentration - - Weight - - Height 157.5 cm (5' 2) 05/29/2023 6:22 PM COUNCILPERSON Body Mass Index - - documented in [...] st Contact Info) Description 08/19/2023 6:40 AM COUNCILPERSON Appointment Department of Laboratory Medicine and Pathology, [facility] in [address] [phone] Pérez Zuniga M.D., Ph.D. [address] [place] [phone] 08/19/2023 7:00 AM COUNCILPERSON Ancillary Procedure Department of Cardiovascular Medicine in [address] [phone] Pérez Zuniga M.D., Ph.D. [address] [place] [phone] 08/19/2023 9:00 AM COUNCILPERSON Appointment Department of Radiology, [facility] in [address] [phone] Pérez Zuniga M.D., Ph.D. [address] [place] [phone] 08/19/2023 3:40 PM COUNCILPERSON Office Visit Department of Oncology in [address] [phone] Zhane Granados APRN, C.N.P. [address] [place] [phone] 08/21/2023 10:15 AM COUNCILPERSON Clinical Support Department of Palliative Care in [address] [phone] Serenity Kelsey, P.A.-C. [address] [place] [phone] Meka Rinaldi D.N.P., R.N., [facility] documented as of this encounter Procedures Procedure Name Priority Date/Time Associated Diagnosis Comments MR BRAIN WITHOUT AND WITH IV CONTRAST RAD - Routine (most inpatients and all outpatients) 05/29/2023 7:09 PM COUNCILPERSON 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) documented in this encounter Results * MR Brain without and with IV Contrast (05/29/2023 7:09 PM COUNCILPERSON) Anatomical Region Laterality Modality Head, Brain, Neuroradiology RST LOS, Neuroradiology ARZ LOS, Neuroradiology FLA LOS N/A Magnetic Resonance 05/30/2023 10:1 9 AM COUNCILPERSON Impressions 05/30/2023 10:38 AM COUNCILPERSON Multifocal subcentimeter intracranial metastases. No significant associated mass effect or hydrocephalus. Narrative 05/30/2023 10:38 AM COUNCILPERSON EXAM: MR BRAIN WITHOUT AND WITH IV [...] anomaly. Procedure Note Antonio Wood M.D., [facility] - 05/30/2023 EXAM: MR BRAIN WITHOUT AND [...] mL not recommended. Given 05/29/2023 7:09 PM COUNCILPERSON 7.5 mL documented in this encounter
--- OUTSIDE RECORDS SUMMARY | 2023-08-09 19:05 | XMS_ITS | Encounter Summary ---
Author Name Unknown Organization [facility] Address [address] [place] [address] Care Team Providers Care Vinyl Hanger Name Role Phone Ondina Chávez MD Primary Care Provider [phone] Max Lee MD Unavailable [phone] Igor Myers MD Unavailable UnavailDonna Forde RN Unavailable Unavailable Igor Myers MD Unavailable Unavaila Shiva Huff MD Unavailable [phone] Encounter Details Date Type Department Care Team (Late st Contact Info) Description 05/24/2023 [facility] Medical Advice [facility] [address] [place] [address] Shiva Kruger MD [address] [place] [address] Social History Tobacco Use Types [...] not send urgent or symptomatic messages through [employer]. I will contact scheduling to arrange or make changes in my appointments. Patient will contact clinic and [facility] as needed ongoing. documented as of this encounter Visit Diagnoses Not on filedocumented in this encounter Care Teams Vinyl Hanger Relationship Specialty Start Date End Date Ondina Chávez MD [facility] [address] [place] [address] PCP - General Family Medicine 05/07/23 Max Lee MD [address] [place] [address] Hematology & Oncology 05/17/23 Igor Myers MD Hematology & Oncology 05/20/23 Donna Ang, BEATRIZ Specialty Driver Retraining Instructor Hematology & Oncology 05/31/23 Igor Myers MD Assigned Cancer Care Provider 06/01/23 Shiva Kruger MD [facility] [place] [address] Assigned Musculoskeletal Provider 05/18/23 documented as of this encounter
--- OUTSIDE RECORDS SUMMARY | 2023-08-09 19:05 | XMS_ITS | Clinical Summary ---
Author Name Unknown Organization [facility] Address [address] [place] [id number] Care Team Providers Care Datapower Consultant Name Role Phone Ondina Chávez MD Primary Care Provider [phone] Max Lee MD Unavailable [phone] Igor Myers MD Unavailable Unavaila Donna Hunt RN Unavailable Unavailable Igor Myers MD Unavailable Unavaila Shiva Huff MD Unavailable [phone] Allergies No known active allergies Medications Medication [...] Department Care Team Description 05/31/2023 Orders Only [facility] [address] [phone] Igor Myers MD Bone cyst 05/28/2023 Telephone [facility] [address] [phone] Igor Myers MD Prior Auth - Medication (OxyContin 10mg ER -PA denied) 05/28/2023 MyC Medical Advice [facility] Cancer [address] [phone] Igor Myers MD 05/24/2023 9:45 AM PAVER INSTALLER Oncology Visit [facility] [address] [phone] Rachel Sanz PA-C Bloom, Stuart Hunegs, MD Cancer related pain (Primary Dx); 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) 05/24/2023 MyC Medical Advice [facility] [address] 4th [place] [phone] Shiva Kruger MD 05/24/2023 Travel 05/23/2023 Tumor Conference [facility] Services - Cancer Care Service Line [address] [place] [address] Demetrice Harrison MD 05/22/2023 Travel 05/22/2023 Orders Only [facility] [address] [phone] Igor Myers MD Metastatic malignant melanoma (H) (Primary Dx) 05/22/2023 PRE VISIT [facility] [address] [place] [phone] Max Lee MD *-*INCOMING RECORDS*-* 05/21/2023 12:30 PM PAVER INSTALLER Office Visit [facility] Radiation Oncology [address] [facility], 1st [place] [phone] Rachel Sanz PA-C Reynolds, Margaret A, MD Nurse, [facility] Rad Onc Cancer related pain (Primary Dx); 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) 05/21/2023 Travel 05/21/[address] [facility] Radiation Oncology [address] [facility], [address] [place] [phone] Zuleika Rogers MD *-*INCOMING RECORDS*-* 05/20/2023 MyC Medical Advice [facility] Cancer [facility] [address] [place] [phone] Ana Balck 05/20/2023 MyC Medical Advice [facility] [address] [phone] Shiva Kruger MD 05/20/2023 Travel 05/16/2023 Orders Only [facility] [address] [phone] Shiva Kruger MD 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) (Primary Dx) 05/15/2023 10:12 AM CDT - 05/15/2023 11:59 PM CDT Hospital Encounter [facility] Imaging [address] [place] [phone] Rachel Sanz PA-C 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) Discharge Disposition: Home or Self Care 05/15/2023 Travel 05/14/2023 MyC Medical Advice [facility] [address] [phone] Shiva Kruger MD 05/14/2023 MyC Refill [facility] Orthopedic [address] [phone] Shiva Kruger MD History of claustrophobia (Primary Dx) 05/14/2023 MyC Refill [facility] Orthopedic [address] [phone] Patria Tidwell, BEATRIZ 05/14/2023 Orders Only [address] [phone] Rachel Sanz PA-C Claustrophobia (Primary Dx) 05/13/2023 12:43 PM CDT Anesthesia Event [facility] PeriOp Services [address] [place] [address] [phone] Suleiman Sanz MD Essler, Stacia M, BREAD PAN GREASER DIRECT CASTING OPERATOR 05/13/2023 11:30 AM CDT - 05/13/2023 1:10 PM CDT Surgery [facility] [address] [place] [address] [phone] Shiav Kruger MD Biopsy left distal femur 05/13/2023 8:43 AM CDT - 05/13/2023 11:59 PM CDT Hospital Encounter [facility] PACU [address] [place] [phone] Shiva Kruger MD Bone cyst (Primary Dx); 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) Discharge Disposition: Home or Self Care 05/13/2023 MyC Medical Advice [facility]opedic [address] [phone] Patria Tidwell, BEATRIZ 05/13/2023 Orders Only [facility] [address] [place] [phone] Rachel Sanz PA-C 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) (Primary Dx) 05/13/2023 Travel 05/10/2023 Telephone [facility]opedic [address] [place] [phone] Rachel Sanz PA-C 05/10/2023 Telephone [facility] Orthopedic [address] [place] [phone] Shiva Kruger MD Schedule Surgery (Dr. Kruger) 05/10/2023 Orders [address] [facility] Interventional Radiology [address] [place] [phone] Zuri Pizarro APRN DIRECT CASTING OPERATOR Bone cyst 05/09/2023 4:45 PM CDT Lab [facility] Lab [address] 1st [place] [phone] Bone cyst; Primary hypertension 05/09/2023 3:30 PM CDT Office Visit [facility] Preoperative Assessment Center [address] [place] [phone] Lily Meyers APRN DIRECT CASTING OPERATOR Preop examination (Primary Dx); Primary hypertension 05/09/2023 2:00 PM CDT Ancillary Procedure [facility] Orthopedic Xray [address] [place] [phone] Rachel Sanz PA-C Bone cyst 05/09/2023 1:00 PM CDT Office Visit [facility] Orthopedic [address] [phone] Shiva Kruger MD Bone cyst (Primary Dx) 05/09/2023 Travel 05/09/2023 PRE VISIT [facility] [address] [place] [phone] Shiva Kruger MD Previsit from [...] Comments Blood Pressure 106/71 05/24/2023 9:36 AM PAVER INSTALLER Pulse 70 05/24/2023 9:36 AM PAVER INSTALLER Temperature 36.7 ??C (98 ??F) 05/24/2023 9:36 AM PAVER INSTALLER Respiratory Rate 16 05/24/2023 9:36 AM PAVER INSTALLER Oxygen Saturation 100% 05/24/2023 9:36 AM PAVER INSTALLER Inhaled Oxygen Concentration - - Weight 82.3 kg (181 lb 8 oz) 05/24/2023 9:36 AM PAVER INSTALLER Height 160.3 cm (5' 3.11) 05/13/2023 8:55 [...] not send urgent or symptomatic messages through [employer]. I will contact scheduling to arrange or [...] Routine 05/09/2023 2:10 PM CDT Bone cyst from Last 3 Months Results * PET Oncology (Eyes to Thighs) (05/15/2023 12:02 PM CDT) Anatomical Region Laterality Modality Whole Body, SUBRAD CT BODY, P NUC [facility] Positron Emission Tomography (PET) Impressions 05/15/2023 2:53 [...] or part of chromosome 22. ISCN: nuc homero([id number])[81/ 200]/([id number])[6 0/200]/(FXDL9r3) [48/200] ADDITIONAL COMMENTS: Control ranges: EWSR1 rearr: 0-0.1% FHEM5t0: 0-3.4% QPXM5w3: 0-1.8% PGCH7p6: 0-0.1% Analyte Specific Reagents (ASRs) are used in many laboratory tests necessary for standard medical care and generally do not require FDA approval. This test was developed and its performance characteristics determined by the [facility]. It has not been cleared or approved by the U.S. Food and Drug Administration. Electronically signed by Jose Patel M.D., Ph.D., [facility] on 05/21/23 at 5:03 PM. 05/21/2023 5:03 PM [facility] CYTOGENETICS Bone Biopsy STRUCTURE OF LEFT FEMUR / Unknown 05/13/2023 1:39 PM CDT 05/17/2023 4:50 PM CDT Shiva Kruger MD LAB - BEAKER AP CYTOGENETICS [facility] Cytogenetics Lab [address] [facility] Room 15-[address] [phone] * MTB Complex and Resistance (05/13/2023 1:32 PM CDT) Pathologist [facility] Mycobacterium Tuberculosis PCR Not Detected 05/16/2023 3:20 [...] the molecular method test result. Performed By: [email or web address] [address] [place] [address] Dedicated Local Truck Driver: Ventura Adrian MD, PhD CLIA Number: [id number] Bone Biopsy STRUCTURE OF LEFT FEMUR / Unknown Non-blood Collection / Unknown 05/13/2023 1:32 PM CDT 05/13/2023 1:58 PM CDT Shiva Kruger MD LAB - BLOOD ORDER [facility] [employer] [address] [place] [address], [place] [phone] * Bone Biopsy Aerobic Bacterial Culture Routine (05/13/2023 1:32 PM CDT) Culture No Growth BRADLY 05/19/2023 7:06 AM PAVER INSTALLER [facility] Bone Biopsy STRUCTURE OF LEFT FEMUR / Unknown Non-blood Collection / Unknown 05/13/2023 1:32 PM CDT 05/13/2023 1:58 PM CDT Shiva Kruger MD LAB - MICRO GENER AL ORDERABLES [facility] Inf. Diseases Diag. Lab [address] [facility][1], [address] [address], [facility] [phone] * Fungal or Yeast Culture Routine (05/13/2023 1:32 PM CDT) Culture No Growth BRADLY 06/10/2023 7:35 AM PAVER INSTALLER [facility] Bone Biopsy STRUCTURE OF LEFT FEMUR / Unknown Non-blood Collection / Unknown 05/13/2023 1:32 PM CDT 05/13/2023 1:58 PM CDT Shiva Kruger MD LAB - MICRO GENER AL ORDERABLES Performing Organization Address City/[facility] Co de Phone Number [facility] Inf. Diseases Diag. Lab [address] [facility][1], [address] [address], [facility] [phone] * Anaerobic Bacterial Culture Routine (05/13/2023 1:32 PM CDT) Culture No anaerobic organisms isolated BRADLY 05/20/2023 9:34 AM PAVER INSTALLER [facility] Bone Biopsy STRUCTURE OF LEFT FEMUR / Unknown Non-blood Collection / Unknown 05/13/2023 1:32 PM CDT 05/13/2023 1:58 PM CDT Shiva Kruger MD LAB - MICRO GENER AL ORDERABLES [facility] Inf. Diseases Diag. Lab [address] [facility][1], [address] [place] [address], [facility] [phone] * (ABNORMAL) Surgical Pathology Exam (05/13/2023 1:26 PM CDT) Case Report Surgical Pathology Report ? Case: [id number] ? Authorizing Provider: ??Shiva Kruger MD ?? [...] if ? needed ? 3 6:13 PM [facility] Addendum FISH test demonstrates no evidence of EWSR1 gene rearrangement, rendering the possibility of clear cell sarcoma unlikely. The original final diagnosis of melanoma is therefore unchanged. 3 6:13 PM [facility] Addendum electronically signed by La Nena Velarde MD on 05/21/2023 at 6:13 PM Final Diagnosis A, B. Bone, left femur tumor, biopsy: - Metastatic high grade malignancy most consistent with melanoma - See comment 6:13 PM [facility] Comment:This is an [...] reported in an addendum. 3 6:13 PM [facility] Comment:This is an appended report. These results have been appended to a previously preliminary verified report. Clinical Information History of a heterogeneous solid cystic hypermetabolic pelvic mass abutting the uterus and cecum, multiple lytic osseous and pulmonary metastatic lesions, and a right renal cortical soft tissue nodule. 3 6:13 PM [facility] [employer] Comment:This is an appended report. These results have been appended to a previously preliminary verified report. Intraoperative Consultation A(1). Femur, Left, Left femur tumor: AFS1: Metastatic carcinoma 3 6:13 PM [facility] Gross Description A(1). [...] (decal) B2-B3: Soft tissue 3 6:13 PM [facility] Comment:This is an appended report. [...] determine the final diagnosis. 3 6:13 PM [facility] Comment:This is an appended report. These results have been appended to a previously preliminary verified report. Disclaimer Analyte Specific Reagents (ASRs) are used in many laboratory tests necessary for standard medical care and generally do not require FDA approval. This test was developed and its performance characteristics determined by [facility]. It has not been cleared or approved by the U.S. Food and Drug Administration. [facility] are certified for the performance of high-complexity clinical testing under the Clinical Laboratory Improvement Amendments of 1988 (CLIA), and in keeping with the certification requirements, the laboratory has verified this test's accuracy, precision and/or validity of the method. 3 6:13 PM [facility] Comment:This is an appended report. These results have been appended to a previously preliminary verified report. MCRS Yes(A) N/A 3 6:13 PM [facility] Comment:This is an appended report. These results have been appended to a previously preliminary verified report. Performing Labs The technical component of this testing was completed at [facility] 3 6:13 PM [facility] Comment:This is an appended report. These results have been appended to a previously preliminary verified report. Case Images 3 6:13 PM [facility] Bone Biopsy STRUCTURE OF LEFT FEMUR / Unknown 05/13/2023 1:26 PM CDT 05/13/2023 1:36 PM CDT Bone biopsy specimen (specimen) STRUCTURE OF LEFT FEMUR / Unknown 05/13/2023 1:39 PM CDT 05/13/2023 2:17 PM CDT [facility] Specialty Lab [address] [facility], [address] [place] [address], [facility] [phone] [facility] Acute Care Lab [address] [facility], [address] [place] [address], [facility] [phone] * ANE AIRWAY ETT PERFORMABLE (05/13/2023 1:12 PM CDT) Narrative Emelia Bermudez APRN SALES SUPERVISOR - 05/13/2023 1:12 PM CDT Emelia Bermudez [...] easy ? Dentition: Intact Suleiman Sanz MD MA ANESTHESIA * (ABNORMAL) Protein Electrophoresis, Serum (05/09/2023 [...] OOD ORDERABLES SPECIALTY CORE/PROT/ENDO Specialty Core/Prot/Endo [address] [facility], [address] [phone] * Total Protein, Serum for ELP (05/09/2023 4:21 PM CDT) Total Protein Serum for ELP 7.9 6.4 - 8.3 g/dL 05/10/2023 3:42 AM CDT [facility] Blood STRUCTURE OF LEFT UPPER LIMB / Unknown Venipuncture / Unknown 05/09/2023 4:21 PM CDT 05/09/2023 4:21 PM CDT Rachel Sanz PA-C LAB - BL OOD ORDERABLES [facility] Core Lab [address] [facility], [address] [address], [facility] [phone] * (ABNORMAL) CBC with platelets and differential (05/09/2023 4:21 PM CDT) WBC Count 7.9 4.0 - 11.0 10e3/uL 05/09/2023 4:25 PM CDT [facility] RBC Count 3.37(L) 3.80 - 5.20 10e6/uL 05/09/2023 4:25 PM CDT [facility] - CORE LAB Hemoglobin 10.2(L) 11.7 - 15.7 g/dL 05/09/2023 4:25 PM CDT [facility]ORE LAB Hematocrit 30.2(L) 35.0 - 47.0 % 05/09/2023 4:25 PM CDT [facility]ORE LAB MCV 90 78 - 100 fL 05/09/2023 4:25 PM CDT [facility]ORE LAB MCH 30.3 26.5 - 33.0 pg 05/09/2023 4:25 PM CDT [facility]ORE LAB MCHC 33.8 31.5 - 36.5 g/dL 05/09/2023 4:25 PM CDT [facility] LAB RDW 13.4 10.0 - 15.0 % 05/09/2023 4:25 PM CDT [facility] LAB Platelet Count 460(H) 150 - 450 10e3/uL 05/09/2023 4:25 PM CDT [facility] % Neutrophils 72 % 05/09/2023 4:25 PM CDT [facility] % Lymphocytes 19 % 05/09/2023 4:25 PM CDT [facility] % Monocytes 9 % 05/09/2023 4:25 PM CDT [facility] % Eosinophils 0 % 05/09/2023 4:25 PM CDT [facility] % Basophils 0 % 05/09/2023 4:25 PM CDT [facility] % Immature Granulocytes 0 % 05/09/2023 4:25 PM CDT [facility] LAB NRBCs per 100 WBC 0 <1 /100 023 4:25 PM CDT [facility] LAB Absolute Neutrophils 5.6 1.6 - 8.3 10e3/uL 05/09/2023 4:25 PM CDT [facility] LAB Absolute Lymphocytes 1.5 0.8 - 5.3 10e3/uL 05/09/2023 4:25 PM CDT [facility] LAB Absolute Monocytes 0.7 0.0 - 1.3 10e3/uL 05/09/2023 4:25 PM CDT [facility] LAB Absolute Eosinophils 0.0 0.0 - 0.7 10e3/uL 05/09/2023 4:25 PM CDT [facility] Absolute Basophils 0.0 0.0 - 0.2 10e3/uL 05/09/2023 4:25 PM CDT [facility] Absolute Immature Granulocytes 0.0 <=0.4 10e3/uL 05/09/2023 4:25 PM CDT [facility] Absolute NRBCs 0.0 10e3/uL 05/09/2023 4:25 PM CDT [facility] LAB Blood STRUCTURE OF LEFT UPPER LIMB / Unknown Venipuncture / Unknown 05/09/2023 4:21 PM CDT 05/09/2023 4:21 PM CDT Rachel Sanz PA-C LAB - BL OOD ORDERABLES [facility] [address] 1st [place] [address] * Adult Type and Screen (05/09/2023 4:21 PM CDT) ABO/RH(D) O NEG 05/08/2023 7:00 PM CDT BLOOD BANK Antibody Screen Negative Negative 05/08/2023 7:00 PM CDT BLOOD BANK SPECIMEN EXPIRATION DATE [id number] 05/08/2023 7:00 PM CDT BLOOD BANK Blood STRUCTURE OF LEFT UPPER LIMB / Unknown Venipuncture / Unknown 05/09/2023 4:21 PM CDT 05/09/2023 4:21 PM CDT Lily Meyers APRN DIRECT CASTING OPERATOR LAB - BLOOD BAN K TEST ORDER BLOOD BANK [address] [place] [address] * (ABNORMAL) Custar and lambda light chain (05/09/2023 4:21 PM CDT) Custar Free Light Chains 4.33(H) 0.33 - 1.94 mg/dL 05/10/2023 11:06 AM CDT [facility] C[facility]/PROT/ENDO Lambda Free Light Chains 2.91(H) 0.57 - 2.63 mg/dL 05/10/2023 11:06 AM CDT [facility] CORE/PROT/ENDO Custar /Lambda Ratio 1.49 0.26 - 1.65 05/10/2023 11:06 AM [facility]T SPECIALTY CORE/PROT/ENDO Blood STRUCTURE OF LEFT UPPER LIMB / Unknown Venipuncture / Unknown 05/09/2023 4:21 PM CDT 05/09/2023 4:21 PM CDT Rachel Sanz PA-C LAB - BL OOD ORDERABLES [facility] CORE/PROT/ENDO Specialty Core/Prot/Endo [address] [facility], Room [address] [phone] * (ABNORMAL) Erythrocyte sedimentation rate auto (05/09/2023 4:21 PM CDT) Erythrocyte Sedimentation Rate 100(H) 0 - 20 mm/hr 05/09/2023 4:32 PM CDT [facility] Blood STRUCTURE OF LEFT UPPER LIMB / Unknown Venipuncture / Unknown 05/09/2023 4:21 PM CDT 05/09/2023 4:21 PM CDT Rachel Sanz PA-C LAB - BL OOD ORDERABLES [facility]ORE LAB [facility] [address] [facility] 1st [place] [address] * (ABNORMAL) CRP inflammation (05/09/2023 4:21 PM CDT) CRP Inflammation 75.60(H) <5.00 mg/L 05/09/2023 4:57 PM CDT [facility] Blood STRUCTURE OF LEFT UPPER LIMB / Unknown Venipuncture / Unknown 05/09/2023 4:21 PM CDT 05/09/2023 4:21 PM CDT Rachel Sanz PA-C LAB - BL OOD ORDERABLES [facility] - [facility]ORE LAB [facility] Surgery [facility] [address] [place] [address] 1st [place] [address] * (ABNORMAL) Comprehensive metabolic panel (05/09/2023 4:21 PM CDT) Sodium 133(L) 135 - 145 mmol/L 05/09/2023 4:57 PM CDT [facility] Comment:Reference intervals for this test were updated on 04/09/2023 to more accurately reflect our healthy population. There may be differences in the flagging of prior results with similar values performed with this method. Interpretation of those prior results can be made in the context of the updated reference intervals. Potassium 3.3(L) 3.4 - 5.3 mmol/L 05/09/2023 4:57 PM CDT [facility] Carbon Dioxide (CO2) 25 22 - 29 mmol/L 05/09/2023 4:57 PM CDT [facility] Anion Gap 18(H) 7 - 15 mmol/L 05/09/2023 4:57 PM CDT [facility] Urea Nitrogen 14.1 6.0 - 20.0 mg/dL 05/09/2023 4:57 PM CDT [facility] Creatinine 0.73 0.51 - 0.95 mg/dL 05/09/2023 4:57 PM CDT [facility] GFR Estimate >90 >60 mL/min/1. 73m2 05/09/2023 4:57 PM CDT [facility] Calcium 10.1(H) 8.6 - 10.0 mg/dL 05/09/2023 4:57 PM CDT [facility] Chloride 90(L) 98 - 107 mmol/L 05/09/2023 4:57 PM CDT [facility] Glucose 95 70 - 99 mg/dL 05/09/2023 4:57 PM CDT [facility] Alkaline Phosphatase 110(H) 35 - 104 U/L 05/09/2023 4:57 PM CDT [facility] AST 25 0 - 45 U/L 05/09/2023 4:57 PM CDT [facility] Comment:Reference intervals for this test were updated on 12/24/2022 to more accurately reflect our healthy population. There may be differences in the flagging of prior results with similar values performed with this method. Interpretation of those prior results can be made in the context of the updated reference intervals. ALT 16 0 - 50 U/L 05/09/2023 4:57 PM CDT [facility] Comment:Reference intervals for [...] - 8.3 g/dL 05/09/2023 4:57 PM CDT [facility] Albumin 4.1 3.5 - 5.2 g/dL 05/09/2023 4:57 PM CDT [facility] Bilirubin Total 0.4 <=1.2 mg/dL 05/09/2023 4:57 PM CDT [facility] Blood STRUCTURE OF LEFT UPPER LIMB / Unknown Venipuncture / Unknown 05/09/2023 4:21 PM CDT 05/09/2023 4:21 PM CDT Rachel Sanz PA-C LAB - BL OOD ORDERABLES [facility] LAB [facility] Surgery [facility] [address] [facility] 1st [place] [address] * XR Chest 2 VW (05/09/2023 2:10 [...] Sanz PA-C IMG DIAG NOSTIC IMAGING ORDERABLES from Last 3 Months Care Teams Datapower Consultant Relationship Specialty Start Date End Date Ondina Chávez MD [facility] [address] [place] [address] PCP - General Family Medicine 05/07/23 Max Lee MD [address] [place] [address] Hematology & Oncology 05/17/23 Igor Myers MD Hematology & Oncology 05/20/23 Donna Ang, BEATRIZ Specialty Quality Assurance Inspector Hematology & Oncology 05/31/23 Igor Myers MD Assigned Cancer Care Provider 06/01/23 Shiva Kruger MD [address] [place] [address] Assigned Musculoskeletal Provider 05/18/23
--- OUTSIDE RECORDS SUMMARY | 2023-08-09 19:05 | XMS_ITS | Encounter Summary ---
Author Name Unknown Organization [facility] Address [address] [place] [address] Care Team Providers Care Sewing Room Supervisor Name Role Phone Ondina Chávez MD Primary Care Provider [phone] Max Lee MD Unavailable [phone] Igor Myers MD Unavailable Unavaila Shiva Huff MD Unavailable [phone] Encounter Details Date Type Department Care Team [...] on filedocumented in this encounter Care Teams Sewing Room Supervisor Relationship Specialty Start Date End Date Ondina Chávez MD [facility] [address] [place] [address] PCP - General Family Medicine 05/07/23 Max Lee MD [address] [place] [address] Hematology & Oncology 05/17/23 Igor Myers MD Hematology & Oncology 05/20/23 Shiva Kruger MD [facility] [address] Assigned Musculoskeletal Provider 05/18/23 documented as of this encounter
--- OUTSIDE RECORDS SUMMARY | 2023-08-09 19:05 | XMS_ITS | Encounter Summary ---
Author Name Unknown Organization [facility] Address [address] [place] [address] Care Team Providers Care Shrimp Packer Name Role Phone Ondina Chávez MD Primary Care Provider Max Lee MD Unavailable [phone] Igor Myers MD Unavailable Unavaila Shiva Huff MD Unavailable [phone] Encounter Details Date Type Department Care Team [...] not send urgent or symptomatic messages through [employer]. I will contact scheduling to arrange or make changes in my appointments. Patient will contact clinic and [facility]CC as needed ongoing. documented as of this encounter Visit Diagnoses Not on filedocumented in this encounter Care Teams Shrimp Packer Relationship Specialty Start Date End Date Ondina Chávez MD [facility] [address] [place] [address] PCP - General Family Medicine 05/07/23 Max Lee MD [address] [place] [address] Hematology & Oncology 05/17/23 Igor Myers MD Hematology & Oncology 05/20/23 Shiva Kruger MD [address] [place] [address] [address] [place] [address] Assigned Musculoskeletal Provider 05/18/23 documented as of this encounter
--- OUTSIDE RECORDS SUMMARY | 2023-08-09 19:05 | XMS_ITS | Encounter Summary ---
Author Name Unknown Organization [facility] Address [address] [place] [address] Care Team Providers Care E Commerce Architect Name Role Phone Ondina Chávez MD Primary Care Provider [phone] Max Lee MD Unavailable [phone] Igor Myers MD Unavailable Unavaila Shiva Huff MD Unavailable [phone] Encounter Details Date Type Department Care Team [...] on filedocumented in this encounter Care Teams E Commerce Architect Relationship Specialty Start Date End Date Ondina Chávez MD [facility] [address] [place] [address] PCP - General Family Medicine 05/07/23 Max Lee MD [address] [place] [address] Hematology & Oncology 05/17/23 Igor Myers MD Hematology & Oncology 05/20/23 Shiva Kruger MD [facility] [address] Assigned Musculoskeletal Provider 05/18/23 documented as of this encounter
--- OUTSIDE RECORDS SUMMARY | 2023-08-09 19:05 | XMS_ITS | Encounter Summary ---
Author Name Unknown Organization [facility] Address [address] [place] [address] Care Team Providers Care Refractory Bricklayer Name Role Phone Ondina Chávez MD Primary Care Provider [phone] Max Lee MD Unavailable [phone] Igor Myers MD Unavailable Unavaila Shiva Huff MD Unavailable [phone] Reason for Visit * Reason Onset Date Comments *-*INCOMING RECORDS*-* 05/22/2023 Encounter Details Date Type Department Care Team (Late st Contact Info) Description 05/22/2023 PRE VISIT [facility] [address] [place] [address] Max Lee MD [address] [place] [address] *-*INCOMING RECORDS*-* Social History Tobacco [...] on filedocumented in this encounter Care Teams Refractory Bricklayer Relationship Specialty Start Date End Date Ondina Chávez MD [address] [address] PCP - General Family Medicine 05/07/23 Max Lee MD [address] [place] [address] Hematology & Oncology 05/17/23 Igor Myers MD Hematology & Oncology 05/20/23 Shiva Kruger MD [address] [place] [address] [place] [id number] Assigned Musculoskeletal Provider 05/18/23 documented as of this encounter
--- OUTSIDE RECORDS SUMMARY | 2023-08-09 19:05 | XMS_ITS | Encounter Summary ---
Author Name Unknown Organization [place] Address [address] [place] [address] Care Team Providers Care Web Marketing Strategist Name Role Phone Ondina Chávez MD Primary Care Provider [phone] Max Lee MD Unavailable [phone] Igor Myers MD Unavailable Unavaila Donna Hunt RN Unavailable Unavailable Igor Myers MD Unavailable Unavaila Shiva Huff MD Unavailable [phone] Encounter Details Date Type Department Care Team (Late st Contact Info) Description 05/28/2023 [facility] [address] [place] [phone] Igor Myers MD Social History Tobacco [...] not send urgent or symptomatic messages through [employer]. I will contact scheduling to arrange or make changes in my appointments. Patient will contact clinic and [facility] as needed ongoing. documented as of this encounter Visit Diagnoses Not on filedocumented in this encounter Care Teams Web Marketing Strategist Relationship Specialty Start Date End Date Ondina Chávez MD [facility] [address] [place] [address] PCP - General Family Medicine 05/07/23 Max Lee MD [address] [place] [address] Hematology & Oncology 05/17/23 Igor Myers MD Hematology & Oncology 05/20/23 Donna Ang, BEATRIZ Specialty Campaign Coordinator Hematology & Oncology 05/31/23 Igor Myers MD Assigned Cancer Care Provider 06/01/23 Shiva Kruger MD [address] [place] [address] Assigned Musculoskeletal Provider 05/18/23 documented as of this encounter
--- OUTSIDE RECORDS SUMMARY | 2023-08-09 19:05 | XMS_ITS | Referral Summary ---
Author Name Unknown Organization [facility] Address [address] [place] [address] Care Team Providers Care Paste Up Artist Name Role Phone Ondina Chávez MD Primary Care Provider Max Lee MD Unavailable [phone] Igor Myers MD Unavailable UnavailDonna Forde RN Unavailable Unavailable Igor Myers MD Unavailable Unavaila Shiva Huff MD Unavailable [phone] Encounters Date Type Department Care Team Description 05/31/2023 Orders Only [facility] Cancer [address] [phone] Igor Myers MD Bone cyst 05/28/2023 Telephone [facility] Cancer [address] [phone] Igor Myers MD Prior Auth - Medication (OxyContin 10mg ER -PA denied) 05/28/2023 MyC Medical Advice [facility] Cancer [address] [phone] Igor Myers MD 05/24/2023 MyC Medical Advice [facility] Orthopedic Clinic [address] 4th [place] [address] Shiva Kruger MD 05/24/2023 Travel 05/24/2023 9:45 AM SALES SUPPORT ADVISOR Oncology Visit [facility] Cancer [address] [phone] Rachel Sanz PA-C Bloom, Stuart Hunegs, MD Cancer related pain (Primary Dx); 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) 05/23/2023 Tumor Conference [facility] - Cancer Care Service Line Replaced by [facility] [place] [phone] Demetrice Harrison MD 05/22/2023 Travel 05/22/2023 Orders Only [facility] Cancer [address] [phone] Igor Myers MD Metastatic malignant melanoma (H) (Primary Dx) 05/22/2023 PRE VISIT [facility] Cancer [address] [phone] Max Lee MD *-*INCOMING RECORDS*-* 05/21/2023 Travel 05/21/2023 12:30 PM SALES SUPPORT ADVISOR Office Visit [facility] Radiation Oncology [address] [facility], 1st [place] [phone] Rachel Sanz PA-C Reynolds, Margaret A, MD Nurse, [facility] Rad Onc Cancer related pain (Primary Dx); 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) 05/21/2023 PRE VISIT [facility] Radiation Oncology [address] [facility], 1st [place] [phone] Zuleika Rogers MD *-*INCOMING RECORDS*-* 05/20/2023 MyC Medical Advice [facility] Cancer [address] [phone] Ana Black 05/20/2023 MyC Medical Advice [facility] Orthopedic [address] 4th [place] [phone] Shiva Kruger MD 05/20/2023 Travel 05/16/2023 Orders Only [facility] Orthopedic [address] [phone] Shiva Kruger MD 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) (Primary Dx) 05/15/2023 Travel 05/15/2023 10:12 AM CDT - 05/15/2023 11:59 PM CDT Hospital Encounter [facility] Imaging [address] [place] [address] Rachel Sanz PA-C 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) Discharge Disposition: Home or Self Care 05/14/2023 MyC Medical Advice [facility] Orthopedic [address] [phone] Shiva Kruger MD 05/14/2023 MyC Refill [address] [phone] Shiva Kruger MD History of claustrophobia (Primary Dx) 05/14/2023 MyC Refill [facility] Orthopedic [address] [phone] Patria Tidwell RN 05/14/2023 Orders Only [address] [phone] Rachel Sanz PA-C Claustrophobia (Primary Dx) 05/13/2023 MyC Medical Advice [address] [phone] Patria Tidwell, BEATRIZ 05/13/2023 Orders Only [facility] Orthopedic [address] [phone] Rachel Sanz PA-C 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) (Primary Dx) 05/13/2023 Travel 05/13/2023 11:30 AM CDT - 05/13/2023 1:10 PM CDT Surgery [facility] [address] [place] [phone] Shiva Kruger MD Biopsy left distal femur 05/13/2023 12:43 PM CDT Anesthesia Event [facility] [address] [place] [address] [place] [phone] Suleiman Sanz MD Essler, Stacia M, EQUITIES TRADER AUDIO PRODUCTION INSTRUCTOR 05/13/2023 8:43 AM CDT - 05/13/2023 11:59 PM CDT Hospital Encounter [facility] PACU [address] [place] [phone] Shiva Kruger MD Bone cyst (Primary Dx); 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) Discharge Disposition: Home or Self Care 05/10/2023 Telephone [facility] [address] 4[address] [place] [address] Rachel Sanz PA-C 05/10/2023 Telephone [facility] [address] [phone] Shiva Kruger MD Schedule Surgery (Dr. Kruger) 05/10/2023 Orders Only [facility] Interventional Radiology [address] [place] [phone] Zuri Pizarro, GAIL AUDIO PRODUCTION INSTRUCTOR Bone cyst 05/09/2023 4:45 PM CDT Lab [facility] Lab [address] 1st [place] [phone] Bone cyst; Primary hypertension 05/09/2023 2:00 PM CDT Ancillary Procedure [facility] Orthopedic Xray [address] 4th [place] [phone] Rachel Sanz, PAMiguelinaC Bone cyst 05/09/2023 3:30 PM CDT Office Visit [facility] Preoperative Assessment Center [address] 5th [place] [phone] Lily Meyers, GAIL AUDIO PRODUCTION INSTRUCTOR Preop examination (Primary Dx); Primary hypertension 05/09/2023 Travel 05/09/2023 PRE VISIT [facility] Clinic [address] [place] [phone] Shiva Kruger MD Previsit 05/09/2023 1:00 PM CDT Office Visit [facility] Orthopedic [address] 4th [place] [phone] Shiva Kruger MD Bone cyst (Primary Dx) [...] Comments Blood Pressure 106/71 05/24/2023 9:36 AM SALES SUPPORT ADVISOR Pulse 70 05/24/2023 9:36 AM SALES SUPPORT ADVISOR Temperature 36.7 ??C (98 ??F) 05/24/2023 9:36 AM SALES SUPPORT ADVISOR Respiratory Rate 16 05/24/2023 9:36 AM SALES SUPPORT ADVISOR Oxygen Saturation 100% 05/24/2023 9:36 AM SALES SUPPORT ADVISOR Inhaled Oxygen Concentration - - Weight 82.3 kg (181 lb 8 oz) 05/24/2023 9:36 AM SALES SUPPORT ADVISOR Height 160.3 cm (5' 3.11) 05/13/2023 8:55 [...] not send urgent or symptomatic messages through via680. I will contact scheduling to arrange or [...] JJ FLOYD DO Rachel Sanz PA-C IMG PET ORDERABLES * CT Chest/Abdomen/Pelvis w Contrast [...] or part of chromosome 22. ISCN: nuc homero([id number])[81/ 200]/([id number])[6 0/200]/([id number]) [48/200] ADDITIONAL COMMENTS: Control ranges: EWSR1 rearr: 0-0.1% MMBI6q5: 0-3.4% CXDW0g4: 0-1.8% GONW3x1: 0-0.1% Analyte Specific Reagents (ASRs) are used in many laboratory tests necessary for standard medical care and generally do not require FDA approval. This test was developed and its performance characteristics determined by the [facility]. It has not been cleared or approved by the U.S. Food and Drug Administration. . 05/21/2023 5:03 PM [facility] CYTOGENETICS Bone Biopsy STRUCTURE OF LEFT FEMUR / Unknown 05/13/2023 1:39 PM CDT 05/17/2023 4:50 PM CDT Shiva Kruger MD LAB - [facility] CYTOGENETICS [facility] Cytogenetics Lab [address] [facility] Room [address] [phone] * MTB Complex and Resistance (05/13/2023 1:32 PM CDT) Pathologist [facility] Mycobacterium Tuberculosis PCR Not Detected 05/16/2023 3:20 AM CDT [employer] MTB Rifampin Resistance by PCR Not Applicable 05/16/2023 3:20 AM CDT [employer] MTB Complex Interpretation Not Detected 05/16/2023 3:20 AM CDT [facility] Comment: MTB target is not detected within the sample. INTERPRETIVE INFORMATION: Mycobacterium tuberculosis Complex Detection and Rifampin Resistance by PCR Mycobacterial culture is a more sensitive method than molecular testing for the diagnosis of tuberculosis and is still considered the gold standard. When possible, a culture must be performed regardless of the molecular method test result. Performed By: [employer] [address] [place] [address] Telehealth Coordinator: Ventura Adrian MD, PhD CLIA Number: [id number] Bone Biopsy STRUCTURE OF LEFT FEMUR / Unknown Non-blood Collection / Unknown 05/13/2023 1:32 PM CDT 05/13/2023 1:58 PM CDT Shiva Kruger MD LAB - BLOOD ORDER [facility] [employer] [address] [place] [address], [facility] [phone] * Bone Biopsy Aerobic Bacterial Culture Routine (05/13/2023 1:32 PM CDT) Culture No Growth BRADLY 05/19/2023 7:06 AM SALES SUPPORT ADVISOR [facility] Bone Biopsy STRUCTURE OF LEFT FEMUR / Unknown Non-blood Collection / Unknown 05/13/2023 1:32 PM CDT 05/13/2023 1:58 PM CDT Shiva Kruger MD LAB - MICRO GENER AL ORDERABLES Performing Organization Address City/[facility] Co de Phone Number [facility] Inf. Diseases Diag. Lab [address] [facility], Room [place] [phone], [facility] [phone] * Fungal or Yeast Culture Routine (05/13/2023 1:32 PM CDT) Culture No Growth BRADLY 06/10/2023 7:35 AM SALES SUPPORT ADVISOR [facility] Bone Biopsy STRUCTURE OF LEFT FEMUR / Unknown Non-blood Collection / Unknown 05/13/2023 1:32 PM CDT 05/13/2023 1:58 PM CDT Shiva Kruger MD LAB - MICRO GENER AL ORDERABLES Performing Organization Address City/[facility]/ZIP Co de Phone Number [facility] Inf. Diseases Diag. Lab [address] [facility], Room [address] [address], [facility] [phone] * Anaerobic Bacterial Culture Routine (05/13/2023 1:32 PM CDT) Culture No anaerobic organisms isolated BRADLY 05/20/2023 9:34 AM SALES SUPPORT ADVISOR [facility] Bone Biopsy STRUCTURE OF LEFT FEMUR / Unknown Non-blood Collection / Unknown 05/13/2023 1:32 PM CDT 05/13/2023 1:58 PM CDT Shiva Kruger MD LAB - MICRO GENER AL ORDERABLES [facility] Inf. Diseases Diag. Lab [address] [facility], [address] [place] [phone], [facility] [phone] * (ABNORMAL) Surgical Pathology Exam (05/13/2023 1:26 PM CDT) Case Report Surgical Pathology Report ? Case: [id number] ? Authorizing Provider: ??Shiva Kruger MD ?? [...] if ? needed ? 3 6:[address] [facility] Addendum FISH test demonstrates no evidence of EWSR1 gene rearrangement, rendering the possibility of clear cell sarcoma unlikely. The original final diagnosis of melanoma is therefore unchanged. 3 6:[address] [facility] Addendum electronically signed by La Nena Velarde MD on 05/21/2023 at 6:13 PM Final Diagnosis A, B. Bone, left femur tumor, biopsy: - Metastatic high grade malignancy most consistent with melanoma - See comment 3 6:[address] [facility] Comment:This is [...] in an addendum. 3 6:[address] [facility] Comment:This is an appended report. These results have been appended to a previously preliminary verified report. Clinical Information History of a heterogeneous solid cystic hypermetabolic pelvic mass abutting the uterus and cecum, multiple lytic osseous and pulmonary metastatic lesions, and a right renal cortical soft tissue nodule. 3 6:13 PM SALES SUPPORT ADVISOR SPECIAL[facility] LABS Comment:This is an appended report. These results have been appended to a previously preliminary verified report. Intraoperative Consultation A(1). Femur, Left, Left femur tumor: AFS1: Metastatic carcinoma 3 6:13 PM SALES SUPPORT ADVISOR [facility] LAB[facility] Gross Description A(1). Femur, Left, [...] (decal) B2-B3: Soft tissue 3 6:13 PM SALES SUPPORT ADVISOR [facility] Comment:This is an appended report. [...] the final diagnosis. 3 6:[address] [facility] Comment:This is an appended report. These results have been appended to a previously preliminary verified report. Disclaimer Analyte Specific Reagents (ASRs) are used in many laboratory tests necessary for standard medical care and generally do not require FDA approval. This test was developed and its performance characteristics determined by [facility]. It has not been cleared or approved by the U.S. Food and Drug Administration. [facility] Laboratories are certified for the performance of high-complexity clinical testing under the Clinical Laboratory Improvement Amendments of 1988 (CLIA), and in keeping with the certification requirements, the laboratory has verified this test's accuracy, precision and/or validity of the method. 3 6:[address] [facility] Comment:This is an appended report. These results have been appended to a previously preliminary verified report. MCRS Yes(A) N/A 3 6:[address] [facility] Comment:This is an appended report. These results have been appended to a previously preliminary verified report. Performing Labs The technical component of this testing was completed at [facility] 3 6:[address] [facility] Comment:This is an appended report. These results have been appended to a previously preliminary verified report. Case Images 3 6:[address] [facility] Bone Biopsy STRUCTURE OF LEFT FEMUR / Unknown 05/13/2023 1:26 PM CDT 05/13/2023 1:36 PM CDT Bone biopsy specimen (specimen) STRUCTURE OF LEFT FEMUR / Unknown 05/13/2023 1:39 PM CDT 05/13/2023 2:17 PM CDT Shiva [facility] Specialty Lab [address] [facility], Room [address] [place] [phone], [facility] [phone] LABORATORY [facility] Acute Care Lab [address] [facility], Room [address] [place] [phone], [facility] [phone] * ANE AIRWAY ETT PERFORMABLE (05/13/2023 1:12 PM CDT) Narrative Emelai Bermudez APRN PRODUCTION STAGE MANAGER - 05/13/2023 1:12 PM CDT Emelia Bermudez APRN PRODUCTION STAGE MANAGER ? 05/13/2023 ??1:13 PM Airway ? Patient [...] easy ? Dentition: Intact Suleiman Sanz MD [place] ANESTHESIA * (ABNORMAL) Protein Electrophoresis, Serum (05/09/2023 [...] SPECIALTY CORE/PROT/ENDO Specialty Core/Prot/Endo [address] [facility], Room [address] [phone] * Total Protein, Serum for ELP (05/09/2023 4:21 PM CDT) Total Protein Serum for ELP 7.9 6.4 - 8.3 g/dL 05/10/2023 3:42 AM CDT [facility] Blood STRUCTURE OF LEFT UPPER LIMB / Unknown Venipuncture / Unknown 05/09/2023 4:21 PM CDT 05/09/2023 4:21 PM CDT Rachel Sanz PA-C LAB - BL OOD ORDERABLES [facility] [place] Core Lab [address] [facility], [address] [phone], [facility] [phone] * (ABNORMAL) CBC with platelets and differential (05/09/2023 4:21 PM CDT) [facility] WBC Count 7.9 4.0 - 11.0 10e3/uL 05/09/2023 4:25 PM CDT [facility] - CORE LAB RBC Count 3.37(L) 3.80 - 5.20 10e6/uL 05/09/2023 4:25 PM CDT [facility] - CORE LAB Hemoglobin 10.2(L) 11.7 - 15.7 g/dL 05/09/2023 4:25 PM CDT [facility] - CORE LAB Hematocrit 30.2(L) 35.0 - 47.0 % 05/09/2023 4:25 PM CDT [facility] - CORE LAB MCV 90 78 - 100 fL 05/09/2023 4:25 PM CDT [facility] - CORE LAB MCH 30.3 26.5 - 33.0 pg 05/09/2023 4:25 PM CDT [facility] - CORE LAB MCHC 33.8 31.5 - 36.5 g/dL 05/09/2023 4:25 PM CDT [facility] - CORE LAB RDW 13.4 10.0 - 15.0 % 05/09/2023 4:25 PM CDT [facility] - CORE LAB Platelet Count 460(H) 150 - 450 10e3/uL 05/09/2023 4:25 PM CDT [facility] - CORE LAB % Neutrophils 72 % 05/09/2023 4:25 PM CDT [facility] - CORE LAB % Lymphocytes 19 % 05/09/2023 4:25 PM CDT [facility] - CORE LAB % Monocytes 9 % 05/09/2023 4:25 PM CDT [facility] - CORE LAB % Eosinophils 0 % 05/09/2023 4:25 PM CDT [facility] - CORE LAB % Basophils 0 % 05/09/2023 4:25 PM CDT [facility] - CORE LAB % Immature Granulocytes 0 % 05/09/2023 4:25 PM CDT [facility] - CORE LAB NRBCs per 100 WBC 0 <1 /100 023 4:25 PM CDT [facility] - CORE LAB Absolute Neutrophils 5.6 1.6 - 8.3 10e3/uL 05/09/2023 4:25 PM CDT [facility] - CORE LAB Absolute Lymphocytes 1.5 0.8 - 5.3 10e3/uL 05/09/2023 4:25 PM CDT [facility] - CORE LAB Absolute Monocytes 0.7 0.0 - 1.3 10e3/uL 05/09/2023 4:25 PM CDT [facility] - CORE LAB Absolute Eosinophils 0.0 0.0 - 0.7 10e3/uL 05/09/2023 4:25 PM CDT [facility] - CORE LAB Absolute Basophils 0.0 0.0 - 0.2 10e3/uL 05/09/2023 4:25 PM CDT [facility] - CORE LAB Absolute Immature Granulocytes 0.0 <=0.4 10e3/uL 05/09/2023 4:25 PM CDT [facility] - CORE LAB Absolute NRBCs 0.0 10e3/uL 05/09/2023 4:25 PM CDT [facility] - CORE LAB Blood STRUCTURE OF LEFT UPPER LIMB / Unknown Venipuncture / Unknown 05/09/2023 4:21 PM CDT 05/09/2023 4:21 PM CDT Rachel Sanz PA-C LAB - BL OOD ORDERABLES [facility] - CORE LAB [facility] [address] [place] [address] 1st [place] [address] * Adult Type and Screen (05/09/2023 4:21 PM CDT) ABO/RH(D) O NEG 05/08/2023 7:00 PM CDT [facility] Antibody Screen Negative Negative 05/08/2023 7:00 PM CDT U BLOOD BANK SPECIMEN EXPIRATION DATE [id number] 05/08/2023 7:00 PM CDT U BLO[facility] BANK Blood STRUCTURE OF LEFT UPPER LIMB / Unknown Venipuncture / Unknown 05/09/2023 4:21 PM CDT 05/09/2023 4:21 PM CDT Lily Meyers EQUITIES TRADER AUDIO PRODUCTION INSTRUCTOR LAB - BLOOD BAN K TEST ORDER [facility] [address] [place] [address], [facility] * (ABNORMAL) Kaser and lambda light chain (05/09/2023 4:21 PM CDT) Kaser Free Light Chains 4.33(H) 0.33 - 1.94 mg/dL 05/10/2023 11:06 AM CDT SPECIALTY CORE/PROT/ENDO Lambda Free Light Chains 2.91(H) 0.57 - 2.63 mg/dL 05/10/2023 11:06 AM CDT SPECIALTY CORE/PROT/ENDO Kaser /Lambda Ratio 1.49 0.26 - 1.65 05/10/2023 11:06 AM CDT SPECIALTY CORE/PROT/ENDO Blood STRUCTURE OF LEFT UPPER LIMB / Unknown Venipuncture / Unknown 05/09/2023 4:21 PM CDT 05/09/2023 4:21 PM CDT Rachel Sanz PA-C LAB - BL OOD ORDERABLES SPECIALTY CORE/PROT/ENDO Specialty Core/Prot/Endo [address] [facility], Room [address] [phone] * (ABNORMAL) Erythrocyte sedimentation rate auto (05/09/2023 4:21 PM CDT) Erythrocyte Sedimentation Rate 100(H) 0 - 20 mm/hr 05/09/2023 4:32 PM CDT [facility] - CORE LAB Blood STRUCTURE OF LEFT UPPER LIMB / Unknown Venipuncture / Unknown 05/09/2023 4:21 PM CDT 05/09/2023 4:21 PM CDT Rachel Sanz PA-C LAB - BL OOD ORDERABLES [facility] - CORE LAB [facility] [address] [facility] 1st [place] [address] * (ABNORMAL) CRP inflammation (05/09/2023 4:21 PM CDT) Pathologist [facility] CRP Inflammation 75.60(H) <5.00 mg/L 05/09/2023 4:57 PM CDT [facility] - CORE LAB Blood STRUCTURE OF LEFT UPPER LIMB / Unknown Venipuncture / Unknown 05/09/2023 4:21 PM CDT 05/09/2023 4:21 PM CDT Rachel Sanz PA-C LAB - BL OOD ORDERABLES [facility] - CORE LAB [address] 1st [place] [address] * (ABNORMAL) Comprehensive metabolic panel (05/09/2023 4:21 PM CDT) Pathologist [facility] Sodium 133(L) 135 - 145 mmol/L 05/09/2023 4:57 PM CDT [facility] - CORE LAB Comment:Reference intervals for this test were updated on 04/09/2023 to more accurately reflect our healthy population. There may be differences in the flagging of prior results with similar values performed with this method. Interpretation of those prior results can be made in the context of the updated reference intervals. Potassium 3.3(L) 3.4 - 5.3 mmol/L 05/09/2023 4:57 PM CDT [facility] - CORE LAB Carbon Dioxide (CO2) 25 22 - 29 mmol/L 05/09/2023 4:57 PM CDT [facility] - CORE LAB Anion Gap 18(H) 7 - 15 mmol/L 05/09/2023 4:57 PM CDT [facility] - CORE LAB Urea Nitrogen 14.1 6.0 - 20.0 mg/dL 05/09/2023 4:57 PM CDT [facility] - CORE LAB Creatinine 0.73 0.51 - 0.95 mg/dL 05/09/2023 4:57 PM CDT [facility] - CORE LAB GFR Estimate >90 >60 mL/min/1. 73m2 05/09/2023 4:57 PM CDT [facility] - CORE LAB Calcium 10.1(H) 8.6 - 10.0 mg/dL 05/09/2023 4:57 PM CDT [facility] - CORE LAB Chloride 90(L) 98 - 107 mmol/L 05/09/2023 4:57 PM CDT [facility] - CORE LAB Glucose 95 70 - 99 mg/dL 05/09/2023 4:57 PM CDT [facility] - CORE LAB Alkaline Phosphatase 110(H) 35 - 104 U/L 05/09/2023 4:57 PM CDT [facility] - CORE LAB AST 25 0 - 45 U/L 05/09/2023 4:57 PM CDT [facility] - CORE LAB Comment:Reference intervals for this test were updated on 12/24/2022 to more accurately reflect our healthy population. There may be differences in the flagging of prior results with similar values performed with this method. Interpretation of those prior results can be made in the context of the updated reference intervals. ALT 16 0 - 50 U/L 05/09/2023 4:57 PM CDT [facility] - CORE LAB Comment:Reference intervals for [...] - 8.3 g/dL 05/09/2023 4:57 PM CDT [facility] - CORE LAB Albumin 4.1 3.5 - 5.2 g/dL 05/09/2023 4:57 PM CDT [facility] - CORE LAB Bilirubin Total 0.4 <=1.2 mg/dL 05/09/2023 4:57 PM CDT [facility] - CORE LAB Blood STRUCTURE OF LEFT UPPER LIMB / Unknown Venipuncture / Unknown 05/09/2023 4:21 PM CDT 05/09/2023 4:21 PM CDT Rachel Sanz PA-C LAB - BL OOD ORDERABLES [facility] - CORE LAB [facility] Surgery [address] 1st [place] [address] * XR Chest 2 VW (05/09/2023 2:10 [...] ORDERABLES from Last 3 Months Care Teams Paste Up Artist Relationship Specialty Start Date End Date Ondina Chávez MD [facility] [address] [place] [address] PCP - General Family Medicine 05/07/23 Max Lee MD [address] [place] [address] Hematology & Oncology 05/17/23 Igor Myers MD Hematology & Oncology 05/20/23 Donna Ang, RN Specialty Trailer Body Assembler Hematology & Oncology 05/31/23 Igor Myers MD Assigned Cancer Care Provider 06/01/23 Shiva Kruger MD [facility] [place] [id number] [place] [address] Assigned Musculoskeletal Provider 05/18/23
--- OUTSIDE RECORDS SUMMARY | 2023-08-09 19:05 | XMS_ITS | Encounter Summary ---
Author Name Unknown Organization [place] Address [address] [place] [address]. [place] [address] Care Team Providers Care Refund Specialist Name Role Phone Ondina Chávez MD Primary Care Provider [phone] Max Lee MD Unavailable [phone] Igor Myers MD Unavailable Unavaila Shiva Huff MD Unavailable [phone] Encounter Details Date Type Department Care Team (Late st Contact Info) Description 05/23/2023 Tumor Conference [facility] - Cancer Care Service Line [facility]0 [place] [address] Demetrice Harrison MD [address] [facility] [address] [place], [place] [address]185 Social History Tobacco Use Types Packs/Day Years [...] on filedocumented in this encounter Care Teams Refund Specialist Relationship Specialty Start Date End Date Ondina Chávez MD [facility] [address] [place] [address] PCP - General Family Medicine 05/07/23 Max Lee MD [address] [place] [address] Hematology & Oncology 05/17/23 Igor Myers MD Hematology & Oncology 05/20/23 Shiva Kruger MD [address] [place] [address] [address] [place] [address] Assigned Musculoskeletal Provider 05/18/23 documented as of this encounter
--- OUTSIDE RECORDS SUMMARY | 2023-08-09 19:05 | XMS_ITS | Encounter Summary ---
Author Name Unknown Organization [place] Address [address] [place] [address] Care Team Providers Care Charter Representative Name Role Phone Ondina Chávez MD Primary Care Provider [phone] Max Lee MD Unavailable [phone] Igor Myers MD Unavailable Unavaila Donna Hunt RN Unavailable Unavailable Shiva Kruger MD Unavailable [phone] Encounter Details Date Type Department Care Team (Late st Contact Info) Description 05/31/2023 Orders Only [facility] [address] [place] [address] Igor Myers MD Bone cyst [...] not send urgent or symptomatic messages through [employer]. I will contact scheduling to arrange or make changes in my appointments. Patient will contact clinic and RNCC as needed ongoing. documented as of this encounter Visit Diagnoses Diagnosis Bone cyst Cyst of bone (localized), unspecified documented in this encounter Care Teams Charter Representative Relationship Specialty Start Date End Date Ondina Chávez MD [facility] [address] [place] [address] PCP - General Family Medicine 05/07/23 Max Lee MD [address] [place] [address] Hematology & Oncology 05/17/23 Igor Myers MD Hematology & Oncology 05/20/23 Donna Ang, BEATRIZ Specialty Leather Seasoner Hematology & Oncology 05/31/23 Shiva Kruger MD [facility] [address] [place] [address] Assigned Musculoskeletal Provider 05/18/23 documented as of this encounter
--- OUTSIDE RECORDS SUMMARY | 2023-08-09 19:05 | XMS_ITS | Encounter Summary ---
Author Name Unknown Organization [place] Address [address] [place] [address] Care Team Providers Care Artificial Breeding Distributor Name Role Phone Ondina Chávez MD Primary Care Provider [phone] Max Lee MD Unavailable [phone] Igor Myers MD Unavailable Unavaila Shiva Huff MD Unavailable [phone] Reason for Visit * Reason Onset Date Comments *-*INCOMING RECORDS*-* 05/21/2023 Encounter Details Date Type Department Care Team (Late st Contact Info) Description 05/21/2023 PRE VISIT [facility] Radiation Oncology [address] [facility], 1st [place] [phone] Zuleika Rogers MD [address] [place], [place] [address] *-*INCOMING RECORDS*-* Social History Tobacco Use Types [...] on filedocumented in this encounter Care Teams Artificial Breeding Distributor Relationship Specialty Start Date End Date Ondina Chávez MD [address] [address] PCP - General Family Medicine 05/07/23 Max Lee MD [address] [place] [address] Hematology & Oncology 05/17/23 Igor Myers MD Hematology & Oncology 05/20/23 Shiva Kruger MD [address] [place] [address] [place] [address] [id number] Assigned Musculoskeletal Provider 05/18/23 documented as of this encounter
--- OUTSIDE RECORDS SUMMARY | 2023-08-09 19:05 | XMS_ITS | Encounter Summary ---
Author Name Unknown Organization [place] Address [address] [place] [address] Care Team Providers Care Feeder Switchboard Operator Name Role Phone Ondina Chávez MD Primary Care Provider [phone] Max Lee MD Unavailable [phone] Igor Myers MD Unavailable Unavaila Shiva Huff MD Unavailable [phone] Reason for Referral * Diagnostic Imaging MRI (Routine) - Authorized Specialty Diagnoses / Procedures Referred By Mikki feliciano Referred To Contact Radiology. 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) Rachel Sanz PA-C [address] [place] [address] Referral ID Status Reason Start Date Expiration Date V isits Requested Visits Authorized [id number] Pending Review 05/13/2023 05/12/2024 1 1 Encounter Details Date Type Department Care Team (Late st Contact Info) Description 05/24/2023 9:45 AM HOME HEALTH RN Oncology Visit [facility] Cancer Clinic [address] [place] [address] Rachel Sanz PA-C [address] [place] [address] Igor Myers MD Cancer related pain [...] Comments Blood Pressure 106/71 05/24/2023 9:36 AM HOME HEALTH RN Pulse 70 05/24/2023 9:36 AM HOME HEALTH RN Temperature 36.7 ??C (98 ??F) 05/24/2023 9:36 AM HOME HEALTH RN Respiratory Rate 16 05/24/2023 9:36 AM HOME HEALTH RN Oxygen Saturation 100% 05/24/2023 9:36 AM HOME HEALTH RN Inhaled Oxygen Concentration - - Weight 82.3 kg (181 lb 8 oz) 05/24/2023 9:36 AM HOME HEALTH RN Height - - Body Mass Index 32.04 05/13/2023 8:55 AM CDT documented in this encounter Progress Notes * Igor Myers MD - 05/24/2023 9:45 AM CST Images from the original note were not included. [facility] Medical Oncology Note Date of visit: May [...] started with treatment. Igor Myers MD, MSc dope pourer [facility] Cancer [address] [id number] CHIEF COMPLAINT/DIAGNOSIS New dagnosis of widespread metastatic malignant melanoma History of Present Illness: Tony Cota is a 42 year old woman who saw her PMD this summer for her annual physical with no realconcerning medical issues at that time. She then developed left knee and thigh pain and went to [facility] ED 04/03/2023. US was negative for [...] the following exceptions: Tony grew up in [place], [place] and graduated from high school in 1995. Her soon-to-be Francis was also in that class, though they were not high school sweetheart's. She then went to the [employer] where she majored in both business and communications. 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 When her first child was born, Sherlyn, 17 years ago, she transitioned to a [id number] mom followed by a substitute astronomy teacher. She has 3 children, Gloria who is 17, Doris who is 15, and Magdy who is 12. They all are very into sports. She ingestant metduring the second year of college. They in the year 1999 after graduation for both. They currently live in [place]. Francis works for [employer] as a leader of a [employer] division. They love live music. She likes to MPV as well. Family History: No family history [...] MAG, PHOS, LDH, URIC in the last [id number] hours. Recent Labs Lab Test 05/09/23 1621 [...] with other provider(s), and discussion with family HEALTH RN documented in this encounter Nursing Notes * [...] not needed today. Pharmacy name entered into [facility]: [id number] [address] [id number] - [place] [address] Clinical concerns: Pt is experiencing mild pain in their left thigh (where biopsy was performed) and left shoulder. Pain is constant and rated a 3 after taking pain meds. Before meds pain would be 8 or 9. Erika Arreguin HEALTH RN documented in this encounter Plan of Treatment [...] not send urgent or symptomatic messages through [employer] I will contact scheduling to arrange or make changes in my appointments. Patient will contact clinic and RNCC as needed ongoing. 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
--- OUTSIDE RECORDS SUMMARY | 2023-08-09 19:05 | XMS_ITS | Encounter Summary ---
Author Name Unknown Organization [place] Address [address] [place] [address] Care Team Providers Care Applications Engineer Name Role Phone Ondina Chávez MD Primary Care Provider [phone] Max Lee MD Unavailable [phone] Igor Myers MD Unavailable Unavaila Donna Hunt RN Unavailable Unavailable Igor Myers MD Unavailable Unavaila Shiva Huff MD Unavailable [phone] Reason for Visit * Reason Onset Date Comments Prior Auth - Medication 05/28/2023 OxyConti n 10mg ER -[place] denied Encounter Details Date Type Department Care Team (Late st Contact Info) Description 05/28/2023 [facility] [address] [place] [address] Igor Myers MD Prior Auth [...] OXYCONTIN 10 MG PO T12A Insurance Company: [employer] [facility] - Denial Date: 04/28/2023 Denial Rational: Excluded from coverage Appeal Information: HEAD DOOR TECHNICIAN * Telephone Encounter - Cherelle Causey - 05/29/2023 7:26 AM CST Images from the original note were not included. Central Prior Authorization Team PA Initiation Medication: OXYCONTIN 10 MG PO T12A Insurance Company: [employer]) - Pharmacy Filling the Rx: [id number] [place] [address] Filling Pharmacy Filling Pharmacy Fax: Start Date: 05/29/2023 HEAD DOOR TECHNICIAN * Telephone Encounter - Taisha Goldstein LPN - 05/28/2023 7:21 PM CST Fax received from [facility] Prior auth need for OxyContin 10mg ER to be used to cancer related pain [employer] GOMEZ on fax: [id number] Payer Info: Carrier: [facility] Plan Name: [employer] [facility] [place] ID# [id number] [facility] [id number] [facility] 9999 HEAD DOOR TECHNICIAN documented in this encounter Plan of [...] not send urgent or symptomatic messages through [employer]. I will contact scheduling to arrange or make changes in my appointments. Patient will contact clinic and RNCC as needed ongoing. documented as of this encounter Visit Diagnoses Not on filedocumented in this encounter Care Teams Applications Engineer Relationship Specialty Start Date End Date Ondina Chávez MD [address] [address] PCP - General Family Medicine 05/07/23 Max Lee MD [address] [place] [address] Hematology & Oncology 05/17/23 Igor Myers MD Hematology & Oncology 05/20/23 Donna Ang, BEATRIZ Specialty University Manager Hematology & Oncology 05/31/23 Igor Myers MD Assigned Cancer Care Provider 06/01/23 Shiva Kruger MD [address] [place] [address] [address] [place] [address] Assigned Musculoskeletal Provider 05/18/23 documented as of this encounter
--- OUTSIDE RECORDS SUMMARY | 2023-08-09 19:05 | XMS_ITS ---
Author Name Unknown Organization [place] Address [address] [place] [address] Care Team Providers Care Senior Compliance Analyst Name Role Phone Ondina Chávez MD Primary Care Provider [phone] Max Lee MD Unavailable [phone] Igor Myers MD Unavailable Unavaila Donna Hunt RN Unavailable Unavailable Igor Myers MD Unavailable Unavaila Shiva Huff MD Unavailable [phone] Active Problems Problem Noted Date Diagnosed Date [...]
--- OUTSIDE RECORDS SUMMARY | 2023-08-09 19:05 | XMS_ITS | Encounter Summary ---
Author Name Unknown Organization [facility] Address [address] [place] [address]. 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) Oanh Carrillo PA-C [address] [place] [address] Referral ID Status Reason Start Date Expiration Date Visits Re quested Visits Authorized [id number] Closed 05/13/2023 05/12/2024 1 1 Encounter Details Date Type Department Care Team (Late st Contact Info) Description 05/21/2023 12:30 PM FIRST OFFICER Office Visit formerly [facility] Radiation Oncology [address] [facility], 1st [place] [phone] Oanh Carrillo PA-C [address] [place] [place] [address] Akosua Rosas MD [address] [place] [address] [address] [place] [address] Nurse, [facility] Rad Onc Cancer related pain (Primary [...] Kruger MD; Location: [facility] OR ENT SURGERY [place] teeth extracted. 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 She has 3 young children. FAMILY HISTORY: [...] Akosua Rosas MD Department of Radiation Oncology [facility] CC Patient Care Team: Ondina Chávez MD as PCP - General (Family Medicine) Max Lee MD as MD (Hematology & Oncology) Igor Myers MD as MD (Hematology & Oncology) AONH CARRILLO Deanna MD This note was dictated with voice recognition software and then edited. Please excuse any unintentional errors. T OFFICER * Bibi Steel RN - 05/21/2023 12:30 PM CST HPI INITIAL PATIENT ASSESSMENT Diagnosis: Cancer Prior radiation therapy: None Prior chemotherapy: None Prior hormonal therapy:No Pain Eval: Current history of pain associated with this visit: Intensity: 6/10 Current: dull Location: [facility] Treatment: Oxycodone 5 mg Psychosocial Living arrangements: Lives with family Fall Risk: independent director of maternity services referral needs: Not needed Advanced Directive: No Implantable Cardiac Device? No Review of Systems Constitutional: Positive for malaise/fatigue. HENT: Negative. Eyes: Negative. Respiratory: Negative. Cardiovascular: Negative. Gastrointestinal: Positive for constipation, nausea and vomiting. Genitourinary: Negative. Musculoskeletal: Leg pain Skin: Negative. Neurological: Negative. Endo/Heme/Allergies: Negative. Psychiatric/Behavioral: The patient is nervous/anxious. 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
--- OUTSIDE RECORDS SUMMARY | 2023-08-09 19:06 | XMS_ITS | Encounter Summary ---
Author Name Unknown Organization [place] Address [address] [place] [address] Care Team Providers Care Curriculum And Instruction Director Name Role Phone Ondina Chávez MD Primary Care Provider [phone] Max Lee MD Unavailable [phone] Zuleika Rogers MD Unavailable [phone] Igor Myers MD Unavailable Unavaila [facility] Shiva Kruger MD Unavailable [phone] Encounter Details Date Type Department Care Team (Late st Contact Info) Description 05/20/2023 MyC Medical Advice [facility] [address] 4th [place] [address] Shiva Kruger MD [address] [place] [address] Social History Tobacco Use Types [...] call if they had an further questions. ANICAL SPREADER OPERATOR documented in this encounter Plan of Treatment Not on file documented as of this encounter Visit Diagnoses Not on filedocumented in this encounter Care Teams Curriculum And Instruction Director Relationship Specialty Start Date End Date Ondina Chávez MD [address] [address] PCP - General Family Medicine 05/07/23 Max Lee MD [address] [place] [address] Hematology & Oncology 05/17/23 Zuleika Rogers MD [address] [place] [address] [phone] Radiation Oncology 05/17/23 05/20/23 Igor Myers MD Hematology & Oncology 05/20/23 Shiva Kruger MD [address] [place] [address] 170434 Assigned Musculoskeletal Provider 05/18/23 documented as of this encounter
--- OUTSIDE RECORDS SUMMARY | 2023-08-09 19:06 | XMS_ITS | Encounter Summary ---
Author Name Unknown Organization [place] Address [address] [place] [address]. [place] [address] Care Team Providers Care Voucher Examiner Name Role Phone Ondina Chávez MD Primary Care Provider [phone] Reason for Visit * Auth/Cert (Routine) Specialty Diagnoses / Procedures Referred By Mikki t Referred To Contact Surgery Diagnoses Bone cyst Bone cyst [M85.60] Procedures VT BIOPSY BONE,TROCAR/NEEDLE SUPERFICIAL VT BONE BIOPSY,TROCAR/NEEDLE DEEP VT BIOPSY BONE OPEN, SUPERIFICAL VT BIOPSY BONE,EXCISIONAL DEEP VT OPEN TX FEMORAL FRACTURE DISTAL MED/LAT CONDYLE biopsy left distal femur. possible plating Ur Periop [address] [place] [phone] Referral ID Status Reason Start Date Expiration Date Visits Re quested Visits Authorized [id number] 1 1 Encounter Details Date Type Department Care Team (Late st Contact Info) Description 05/13/2023 12:43 PM CDT Anesthesia Event [facility] [address] [place] [address] Suleiman Sanz MD [address] [place] [address] 294/ [address] [place], [place] 46[address] Emelia Bermudez, ANIMAL HUSBANDMAN WEATHER ANALYST [address] [place] [address] 038264 Anesthesia Record Procedure Summary Procedure Name Responsible [...] recorded are pre- induction. Emelia Bermudez APRN WEATHER ANALYST 1243 An Start 1243 An Start Data [...] Grade View: 1; Adjucts: Stylet; Placement Person: WEATHER ANALYST; Attempts: 1 05/13/23 1313 by Emelia Bermudez APRN CRNA 05/13/23 1353 by Emelia Bermudez APRN WEATHER ANALYST documented in this encounter Social History Tobacco [...] Anesthesia Procedure Notes - Emelia Bermudez APRN WEATHER ANALYST - 05/13/2023 1:12 PM CDTAssociated Order(s): Airway [...] Surgical History: Procedure Laterality Date ENT SURGERY [place] teeth extracted. No Known Allergies Social History [...] and realistic alternatives discussed. Questions answered and patient/digital sales representative(s) expressed understanding. - Discussed: - Discussed with: Patient Postoperative Care Pain management: Oral pain medications, IV analgesics, Multi-modal analgesia. PONV prophylaxis: Ondansetron (or other 5HT-3), Dexamethasone or Solumedrol, Background Propofol Infusion Comments: Suleiman Sanz MD documented in this encounter Miscellaneous Notes * Anesthesia Care Transfer Note - Emelia Bermudez APRN WEATHER ANALYST - 05/13/2023 2:01 PM CDT Patient: Tony [...] mg documented in this encounter Care Teams Voucher Examiner Relationship Specialty Start Date End Date Ondina Chávez MD [address] [address] PCP - General Family Medicine 05/07/23 documented as of this encounter
--- OUTSIDE RECORDS SUMMARY | 2023-08-09 19:06 | XMS_ITS | Encounter Summary ---
Author Name Unknown Organization [place] Address [address] [place] [address]. [place] [address] Care Team Providers Care Camera Operator Name Role Phone Ondina Chávez MD Primary Care Provider [phone] Encounter Details Date Type Department Care Team (Late st Contact Info) Description 05/14/2023 [facility] Only [facility] [address] 4th [place] [address] Rachel Sanz PA-C [address] [place] [phone] Claustrophobia (Primary Dx) Social History Tobacco Use [...] phobias documented in this encounter Care Teams Camera Operator Relationship Specialty Start Date End Date Ondina Chávez MD [facility] [address] [place] [address] PCP - General Family Medicine 05/07/23 documented as of this encounter
--- OUTSIDE RECORDS SUMMARY | 2023-08-09 19:06 | XMS_ITS | Encounter Summary ---
Author Name Unknown Organization [place] Address [address] [place] [address] Care Team Providers Care Card Lacer Name Role Phone Ondina Chávez MD Primary Care Provider [phone] Encounter Details Date Type Department Care Team [...] on filedocumented in this encounter Care Teams Card Lacer Relationship Specialty Start Date End Date Ondina Chávez MD [facility] [address] [place] [address] PCP - General Family Medicine 05/07/23 documented as of this encounter
--- OUTSIDE RECORDS SUMMARY | 2023-08-09 19:06 | XMS_ITS | Encounter Summary ---
Author Name Unknown Organization [place] Address [address] [place] [address]. [place] [address] Care Team Providers Care Bridge Expert Name Role Phone Ondina Chávez MD Primary Care Provider Reason for Visit * Auth/Cert (Routine) Specialty Diagnoses / Procedures Referred By Mikki t Referred To Contact Surgery Diagnoses Bone cyst Bone cyst [M85.60] Procedures [place] BIOPSY BONE,TROCAR/NEEDLE SUPERFICIAL [place] BONE BIOPSY,TROCAR/NEEDLE DEEP [place] BIOPSY BONE OPEN, SUPERIFICAL [place] BIOPSY BONE,EXCISIONAL DEEP [place] OPEN TX FEMORAL FRACTURE DISTAL MED/LAT CONDYLE biopsy left distal femur. possible plating Ur Periop [facility] [place] [address] Referral ID Status Reason Start Date Expiration Date Visits Re quested Visits Authorized [id number] 1 1 Encounter Details Date Type Department Care Team (Late st Contact Info) Description 05/13/2023 11:30 AM CDT - 05/13/2023 1:10 PM CDT Surgery [facility] PeriOp Services [address] [place] [address] Shiva Kruger MD [address] [place] [address] Biopsy left distal femur Surgery [...] doctor, call Dr. Kruger, Orthopedic, or: ' [phone] and ask for the Resident Coal Handler for: Orthopedic (answered 24 hours a day) ' Emergency Department: [facility]: [phone] [facility]: [phone] Rev. 04/2014 documented in this encounter Medications [...] Crespo MD - 05/13/2023 1:55 PM CDT [facility] Brief Operative Note Pre-operative diagnosis: Bone [...] or part of chromosome 22. ISCN: nuc homero([id number])[81/ 200]/([id number])[6 0/200]/(WRAC0u3) [48/200] ADDITIONAL COMMENTS: Control ranges: EWSR1 rearr: 0-0.1% TBNP3g8: 0-3.4% FJJE2h6: 0-1.8% XLKQ0t1: 0-0.1% Analyte Specific Reagents (ASRs) are used in many laboratory tests necessary for standard medical care and generally do not require FDA approval. This test was developed and its performance characteristics determined by the [facility], [facility]. It has not been cleared or approved by the U.S. Food and Drug Administration. . 05/21/2023 5:03 PM [facility] Bone Biopsy STRUCTURE OF LEFT FEMUR / Unknown 05/13/2023 1:39 PM CDT 05/17/2023 4:50 PM CDT Shiva [facility] Cytogenetics Lab [address] [facility] Room [address] [phone] * MTB Complex and Resistance (05/13/2023 1:32 PM CDT) Mycobacterium Tuberculosis PCR Not Detected 05/16/2023 3:20 AM CDT [facility] MTB Rifampin Resistance by PCR Not Applicable 05/16/2023 3:20 AM CDT [facility] MTB Complex Interpretation Not Detected 05/16/2023 3:20 AM CDT [facility] Comment: MTB target is not detected within the sample. INTERPRETIVE INFORMATION: Mycobacterium tuberculosis Complex Detection and Rifampin Resistance by PCR Mycobacterial culture is a more sensitive method than molecular testing for the diagnosis of tuberculosis and is still considered the gold standard. When possible, a culture must be performed regardless of the molecular method test result. Performed By: [employer] [address] [place] [address] Meter Engineer: Ventura Adrian MD, PhD CLIA Number: [id number] Bone Biopsy STRUCTURE OF LEFT FEMUR / Unknown Non-blood Collection / Unknown 05/13/2023 1:32 PM CDT 05/13/2023 1:58 PM CDT Shiva Kruger MD LAB - BLOOD ORDER DANIEL [address] [address], [facility] [phone] * Bone Biopsy Aerobic Bacterial Culture Routine (05/13/2023 1:32 PM CDT) Pathologist [facility] Culture No Growth BRADLY 05/19/2023 7:06 AM [facility] Bone Biopsy STRUCTURE OF LEFT FEMUR / Unknown Non-blood Collection / Unknown 05/13/2023 1:32 PM CDT 05/13/2023 1:58 PM CDT Shiva Kruger MD LAB - MICRO GENER AL ORDERABLES [facility] Inf. Diseases Diag. Lab [address] [facility], [address] [place] [address], [facility] [phone] * Fungal or Yeast Culture Routine (05/13/2023 1:32 PM CDT) Culture No Growth BRADLY 06/10/2023 7:35 AM [facility] Bone Biopsy STRUCTURE OF LEFT FEMUR / Unknown Non-blood Collection / Unknown 05/13/2023 1:32 PM CDT 05/13/2023 1:58 PM CDT Shiva Kruger MD LAB - MICRO GENER AL ORDERABLES [facility] Inf. Diseases Diag. Lab [address] [facility], Room [place] [id number], [facility] [phone] * Anaerobic Bacterial Culture Routine (05/13/2023 1:32 PM CDT) Culture No anaerobic organisms isolated BRADLY 05/20/2023 9:34 AM [facility] Bone Biopsy STRUCTURE OF LEFT FEMUR / Unknown Non-blood Collection / Unknown 05/13/2023 1:32 PM CDT 05/13/2023 1:58 PM CDT Shiva Kruger MD LAB - MICRO GENER AL ORDERABLES Performing Organization Address City/[facility]/ZIP Co de Phone Number [facility] Inf. Diseases Diag. Lab [address] [facility], Room [place] [id number], [facility] [phone] * (ABNORMAL) Surgical Pathology Exam (05/13/2023 1:26 PM CDT) Case Report Surgical Pathology Report ? Case: [id number] ? Authorizing Provider: ??Shiva Kruger MD ?? [...] if ? needed ? 3 6:13 PM [facility] Addendum FISH test demonstrates no evidence of EWSR1 gene rearrangement, rendering the possibility of clear cell sarcoma unlikely. The original final diagnosis of melanoma is therefore unchanged. 3 6:13 PM [facility] Addendum electronically signed by La Nena Velarde MD on 05/21/2023 at 6:13 PM Final Diagnosis A, B. Bone, left femur tumor, biopsy: - Metastatic high grade malignancy most consistent with melanoma - See comment 3 6:13 PM [facility] Comment:This is an [...] reported in an addendum. 3 6:13 PM [facility] Comment:This is an appended report. These results have been appended to a previously preliminary verified report. Clinical Information History of a heterogeneous solid cystic hypermetabolic pelvic mass abutting the uterus and cecum, multiple lytic osseous and pulmonary metastatic lesions, and a right renal cortical soft tissue nodule. 3 6:13 PM [facility] Comment:This is an appended report. These results have been appended to a previously preliminary verified report. Intraoperative Consultation A(1). Femur, Left, Left femur tumor: AFS1: Metastatic carcinoma 3 6:13 PM [facility] Gross Description A(1). [...] (decal) B2-B3: Soft tissue 3 6:13 PM [facility] Comment:This is an appended report. These [...] determine the final diagnosis. 3 6:13 PM [facility] Comment:This is an appended report. These results have been appended to a previously preliminary verified report. Disclaimer Analyte Specific Reagents (ASRs) are used in many laboratory tests necessary for standard medical care and generally do not require FDA approval. This test was developed and its performance characteristics determined by [facility]. It has not been cleared or approved by the U.S. Food and Drug Administration. [facility] are certified for the performance of high-complexity clinical testing under the Clinical Laboratory Improvement Amendments of 1988 (CLIA), and in keeping with the certification requirements, the laboratory has verified this test's accuracy, precision and/or validity of the method. 3 6:13 PM [facility] Comment:This is an appended report. These results have been appended to a previously preliminary verified report. MCRS Yes(A) N/A 3 6:13 PM [facility] Comment:This is an appended report. These results have been appended to a previously preliminary verified report. Performing Labs The technical component of this testing was completed at [facility] 3 6:13 PM [facility] Comment:This is an appended report. These results have been appended to a previously preliminary verified report. Case Images 3 6:13 PM [facility] Bone Biopsy STRUCTURE OF LEFT FEMUR / Unknown 05/13/2023 1:26 PM CDT 05/13/2023 1:36 PM CDT Bone biopsy specimen (specimen) STRUCTURE OF LEFT FEMUR / Unknown 05/13/2023 1:39 PM CDT 05/13/2023 2:17 PM CDT Shiva Kruger MD LAB - [facility] Specialty Lab [address] [facility], [address] [place] [address], [facility] [phone] [facility] LAB[facility]AT[facility] Care Lab [address] [facility], [address] [place] [address], [facility] [phone] documented in this encounter Visit Diagnoses Diagnosis [...] ll documented in this encounter Care Teams Bridge Expert Relationship Specialty Start Date End Date Ondina Chávez MD [facility] [address] [place] [address] PCP - General Family Medicine 05/07/23 documented as of this encounter
--- OUTSIDE RECORDS SUMMARY | 2023-08-09 19:06 | XMS_ITS | Encounter Summary ---
Author Name Unknown Organization [place] Address [address] [place] [address] Care Team Providers Care Room Service Server Name Role Phone Ondina Chávez MD Primary Care Provider Max Lee MD Unavailable [phone] Zuleika Rogers MD Unavailable [phone] Igor Myers MD Unavailable Unavaila Donna Hunt RN Unavailable Unavailable Igor Myers MD Unavailable Unavaila Shiva Huff MD Unavailable [phone] Encounter Details Date Type Department Care Team (Late st Contact Info) Description 05/14/2023 [facility] [address] 4[address] [place] [address] Shiva Kruger MD [address] [place], [place] [address] Social History Tobacco Use Types Packs/Day Years [...] on filedocumented in this encounter Care Teams Room Service Server Relationship Specialty Start Date End Date Ondina Chávez MD [facility] [address] [place] [address] PCP - General Family Medicine 05/07/23 Max Lee MD [address] [place] [address] [id number] Hematology & Oncology 05/17/23 Zuleika Rogers MD [address] [place] [address] [phone] Radiation Oncology 05/17/23 05/20/23 Igor Myers MD Hematology & Oncology 05/20/23 Donna Ang, BEATRIZ Specialty Liner Helper Hematology & Oncology 05/31/23 Igor Myers MD Assigned Cancer Care Provider 06/01/23 Shiva Kruger MD [address] [place] [address] Assigned Musculoskeletal Provider 05/18/23 documented as of this encounter
--- OUTSIDE RECORDS SUMMARY | 2023-08-09 19:06 | XMS_ITS | Encounter Summary ---
Author Name Unknown Organization [place] Address [address] [place] [address] Care Team Providers Care Virtualization Consultant Name Role Phone Ondina Chávez MD Primary Care Provider [phone] Encounter Details Date Type Department Care Team (Late st Contact Info) Description 05/13/2023 [facility] [address] [place] [address] Patria Tidwell RN Social History [...] on filedocumented in this encounter Care Teams Virtualization Consultant Relationship Specialty Start Date End Date Ondina Chávez MD [facility] [address] [place] [address] PCP - General Family Medicine 05/07/23 documented as of this encounter
--- OUTSIDE RECORDS SUMMARY | 2023-08-09 19:06 | XMS_ITS | Encounter Summary ---
Author Name Unknown Organization [place] Address [address] [place] [address] Care Team Providers Care Metal Wire Coating Operator Name Role Phone Ondina Chávez MD Primary Care Provider [phone] Encounter Details Date Type Department Care Team [...] on filedocumented in this encounter Care Teams Metal Wire Coating Operator Relationship Specialty Start Date End Date Ondina Chávez MD [facility] [address] [place] [address] PCP - General Family Medicine 05/07/23 documented as of this encounter
--- OUTSIDE RECORDS SUMMARY | 2023-08-09 19:06 | XMS_ITS | Encounter Summary ---
Author Name Unknown Organization [place] Address [address] [place] [address] Care Team Providers Care Lap Maker Name Role Phone Ondina Chávez MD Primary Care Provider Max Lee MD Unavailable [phone] Zuleika Rogers MD Unavailable [phone] Igor Myers MD Unavailable Unavaila Donna Hunt RN Unavailable Unavailable Igor Myers MD Unavailable Unavaila Shiva Huff MD Unavailable [phone] Encounter Details Date Type Department Care Team (Late st Contact Info) Description 05/14/2023 [facility] [address] [place] [address] Shiva Kruger MD [address] [place], [place] [phone] History of claustrophobia (Primary Dx) Social History [...] Primary documented in this encounter Care Teams Lap Maker Relationship Specialty Start Date End Date Ondina Chávez MD [facility] [address] [place] [address] PCP - General Family Medicine 05/07/23 Max Lee MD [address] [place] [address] Hematology & Oncology 05/17/23 Zuleika Rogers MD [address] [place] [address] Radiation Oncology 05/17/23 05/20/23 Igor Myers MD Hematology & Oncology 05/20/23 Donna Ang, BEATRIZ Specialty Grinding Machine Tender Hematology & Oncology 05/31/23 Igor Myers MD Assigned Cancer Care Provider 06/01/23 Shiva Kruger MD [address] [place] [address] Assigned Musculoskeletal Provider 05/18/23 documented as of this encounter
--- OUTSIDE RECORDS SUMMARY | 2023-08-09 19:06 | XMS_ITS | Encounter Summary ---
Author Name Unknown Organization [place] Address [address] [place] [address] Care Team Providers Care Headliner Installer Name Role Phone Ondina Chávez MD Primary Care Provider [phone] Max Lee MD Unavailable Zuleika Rogers MD Unavailable Encounter Details Date Type Department Care Team (Late st Contact Info) Description 05/16/2023 Orders Only [facility] [place] [address] [facility] [address] [place] [phone] Shiva Kruger MD [address] [place], [place] [address] Metastatic carcinoma involving bone with unknown primary [...] Primary documented in this encounter Care Teams Headliner Installer Relationship Specialty Start Date End Date Ondina Chávez MD [facility] [address] [place] [address] PCP - General Family Medicine 05/07/23 Max Lee MD [address] [place] [address] Hematology & Oncology 05/17/23 Zuleika Rogers MD [address] [place] [address] Radiation Oncology 05/17/23 05/20/23 documented as of this encounter
--- OUTSIDE RECORDS SUMMARY | 2023-08-09 19:06 | XMS_ITS | Encounter Summary ---
Author Name Unknown Organization [place] Address [address] [place] [address] Care Team Providers Care Steel Sash Erector Name Role Phone Ondina Chávez MD Primary Care Provider Encounter Details Date Type Department Care Team (Late st Contact Info) Description 05/14/2023 [facility] [address] 4th [place] [address] Patria Tidwell RN Social History [...] on filedocumented in this encounter Care Teams Steel Sash Erector Relationship Specialty Start Date End Date Ondina Chávez MD [facility] [address] [place] [address] PCP - General Family Medicine 05/07/23 documented as of this encounter
--- OUTSIDE RECORDS SUMMARY | 2023-08-09 19:06 | XMS_ITS | Encounter Summary ---
Author Name Unknown Organization [facility] Address [address] [place] [address]. [place] [address] Care Team Providers Care Personal Chef Name Role Phone Ondina Chávez MD Primary Care Provider [phone] Reason for Visit * Auth/Cert (Routine) Specialty Diagnoses / Procedures Referred By Mikki t Referred To Contact Surgery Diagnoses Bone cyst Bone cyst [M85.60] Procedures NJ BIOPSY BONE,TROCAR/NEEDLE SUPERFICIAL NJ BONE BIOPSY,TROCAR/NEEDLE DEEP NJ BIOPSY BONE OPEN, SUPERIFICAL NJ BIOPSY BONE,EXCISIONAL DEEP NJ OPEN TX FEMORAL FRACTURE DISTAL MED/LAT CONDYLE biopsy left distal femur. possible plating Ur Periop [address] [place] [id number] Referral ID Status Reason Start Date Expiration Date Visits Re quested Visits Authorized [id number] 1 1 Encounter Details Date Type Department Care Team (Latest Contact Info) Description 05/13/2023 8:43 AM CDT - 05/13/2023 11:59 PM CDT Hospital Encounter [facility] PACU [facility] [place] [address] Shiva Kruger MD [address] [place] [address] Bone cyst (Primary Dx); Metastatic [...] doctor, call Dr. Kruger, Orthopedic, or: ' [phone] and ask for the Resident Front Office Assistant for: Orthopedic (answered 24 hours a day) ' Emergency Department: [facility]: [phone] [facility]: [phone] Rev. 04/2014 documented in this encounter Medications [...] Crespo MD - 05/13/2023 1:55 PM CDT [facility] Brief Operative Note Pre-operative diagnosis: Bone [...] or part of chromosome 22. ISCN: nuc homero([id number])[81/ 200]/([id number])[6 0/200]/(SJMO7i0) [48/200] ADDITIONAL COMMENTS: Control ranges: EWSR1 rearr: 0-0.1% NZEQ6h8: 0-3.4% LKOC3g6: 0-1.8% JCDB6x2: 0-0.1% Analyte Specific Reagents (ASRs) are used in many laboratory tests necessary for standard medical care and generally do not require FDA approval. This test was developed and its performance characteristics determined by the [facility], [facility]. It has not been cleared or approved by the U.S. Food and Drug Administration. . 05/21/2023 5:03 PM ECHOCARDIOGRAPHY RADIOLOGY TECHNOLOGIST CYTOGENETICS Bone Biopsy STRUCTURE OF LEFT FEMUR / Unknown 05/13/2023 1:39 PM CDT 05/17/2023 4:50 PM CDT Shiva GARCÍA - [facility] Organization Address City/State/ZIP Co de Phone Number CYTOGENETICS [facility] Cytogenetics Lab 6 [facility] Room [address] [phone] * MTB Complex and Resistance (05/13/2023 1:32 [...] the molecular method test result. Performed By: [facility] [address] [place] [address] Mailing Specialist: Ventura Adrian MD, PhD CLIA Number: [id number] Bone Biopsy STRUCTURE OF LEFT FEMUR / Unknown Non-blood Collection / Unknown 05/13/2023 1:32 PM CDT 05/13/2023 1:58 PM CDT Shiva Kruger MD LAB - BLOOD ORDER [facility] [employer] [address] [place] [address], [facility] [phone] * Bone Biopsy Aerobic Bacterial Culture Routine (05/13/2023 1:32 PM CDT) Culture No Growth BRADLY 05/19/2023 7:06 AM ECHOCARDIOGRAPHY RADIOLOGY TECHNOLOGIST [facility] Bone Biopsy STRUCTURE OF LEFT FEMUR / Unknown Non-blood Collection / Unknown 05/13/2023 1:32 PM CDT 05/13/2023 1:58 PM CDT Shiva Kruger MD LAB - MICRO GENER AL ORDERABLES [facility] Inf. Diseases Diag. Lab [address] [facility], [address] [place] [address], [facility] [phone] * Fungal or Yeast Culture Routine (05/13/2023 1:32 PM CDT) Culture No Growth BRADLY 06/10/2023 7:35 AM ECHOCARDIOGRAPHY RADIOLOGY TECHNOLOGIST [facility] Bone Biopsy STRUCTURE OF LEFT FEMUR / Unknown Non-blood Collection / Unknown 05/13/2023 1:32 PM CDT 05/13/2023 1:58 PM CDT Shiva Kruger MD LAB - MICRO GENER AL ORDERABLES Performing Organization Address [facility] Co de Phone Number [facility] Inf. Diseases Diag. Lab [address] [facility], Room [place] [phone], [facility] [phone] * Anaerobic Bacterial Culture Routine (05/13/2023 1:32 PM CDT) Culture No anaerobic organisms isolated BRADLY 05/20/2023 9:34 AM ECHOCARDIOGRAPHY RADIOLOGY TECHNOLOGIST [facility] Bone Biopsy STRUCTURE OF LEFT FEMUR / Unknown Non-blood Collection / Unknown 05/13/2023 1:32 PM CDT 05/13/2023 1:58 PM CDT Shiva Kruger MD LAB - MICRO GENER AL ORDERABLES Performing Organization Address [facility] Co de Phone Number [facility] Inf. Diseases Diag. Lab [address] [facility], Room [address] [address], [facility] [phone] * (ABNORMAL) Surgical Pathology Exam (05/13/2023 1:26 PM CDT) Case Report Surgical Pathology Report ? Case: [id number] ? Authorizing Provider: ??Shiva Kruger MD ?? [...] if ? needed ? 3 6:13 PM [facility] Addendum FISH test demonstrates no evidence of EWSR1 gene rearrangement, rendering the possibility of clear cell sarcoma unlikely. The original final diagnosis of melanoma is therefore unchanged. 3 6:13 PM [facility] Addendum electronically signed by La Nena Velarde MD on 05/21/2023 at 6:13 PM Final Diagnosis A, B. Bone, left femur tumor, biopsy: - Metastatic high grade malignancy most consistent with melanoma - See comment 3 6:13 PM [facility] Comment:This is an appended [...] reported in an addendum. 3 6:13 PM [facility] Comment:This is an appended report. These results have been appended to a previously preliminary verified report. Clinical Information History of a heterogeneous solid cystic hypermetabolic pelvic mass abutting the uterus and cecum, multiple lytic osseous and pulmonary metastatic lesions, and a right renal cortical soft tissue nodule. 3 6:13 PM [facility] Comment:This is an appended report. These results have been appended to a previously preliminary verified report. Intraoperative Consultation A(1). Femur, Left, Left femur tumor: AFS1: Metastatic carcinoma 3 6:13 PM [facility] Gross Description A(1). Femur, [...] (decal) B2-B3: Soft tissue 3 6:13 PM [facility] Comment:This is an appended report. [...] determine the final diagnosis. 3 6:13 PM [facility] Comment:This is an appended [...] validity of the method. 3 6:13 PM [facility] Comment:This is an appended report. These results have been appended to a previously preliminary verified report. MCRS Yes(A) N/A 3 6:13 PM [facility] Comment:This is an appended report. These results have been appended to a previously preliminary verified report. Performing Labs The technical component of this testing was completed at [facility] 3 6:13 PM [facility] Comment:This is an appended report. These results have been appended to a previously preliminary verified report. Case Images 3 6:13 PM [facility] Bone Biopsy STRUCTURE OF LEFT FEMUR / Unknown 05/13/2023 1:26 PM CDT 05/13/2023 1:36 PM CDT Bone biopsy specimen (specimen) STRUCTURE OF LEFT FEMUR / Unknown 05/13/2023 1:39 PM CDT 05/13/2023 2:17 PM CDT Shiva GARCÍA - [facility] Specialty Lab [address], [address] [place] [address], [place] [phone] UR LABORATORY [facility] Acute Care Lab [address] [facility], [address] [place] [address], [facility] [phone] documented in this encounter Visit Diagnoses Diagnosis [...] ll documented in this encounter Care Teams Personal Chef Relationship Specialty Start Date End Date Ondina Chávez MD [facility] [address] [place] [address] PCP - General Family Medicine 05/07/23 documented as of this encounter
--- OUTSIDE RECORDS SUMMARY | 2023-08-09 19:06 | XMS_ITS | Encounter Summary ---
Author Name Unknown Organization [facility] Address [address] [place] [address] Care Team Providers Care Tobacco Prevention Health Educator Name Role Phone Ondina Chávez MD Primary Care Provider [phone] Max Lee MD Unavailable [phone] Zuleika Rogers MD Unavailable [phone] Igor Myers MD Unavailable Unavaila Shiva Huff MD Unavailable [phone] Encounter Details Date Type Department Care Team [...] on filedocumented in this encounter Care Teams Tobacco Prevention Health Educator Relationship Specialty Start Date End Date Ondina Chávez MD [facility] [address] [place] [address] PCP - General Family Medicine 05/07/23 Max Lee MD [address] [place] [address] Hematology & Oncology 05/17/23 Zuleika Rogers MD [address] [place] [address] Radiation Oncology 05/17/23 05/20/23 Igor Myers MD Hematology & Oncology 05/20/23 Shiva Kruger MD [address] [place] [id number] Assigned Musculoskeletal Provider 05/18/23 documented as of this encounter
--- OUTSIDE RECORDS SUMMARY | 2023-08-09 19:06 | XMS_ITS | Encounter Summary ---
Author Name Unknown Organization [facility] Address [address] [place] [address] Care Team Providers Care Vineyard Worker Name Role Phone Ondina Chávez MD Primary Care Provider [phone] Reason for Referral * Diagnostic Imaging PET (Routine) - Closed Specialty Diagnoses / Procedures Referred By [facility] Referred To Contact Radiology. 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 Call member services at your health plan with any benefit or coverage questions. 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 Ask for the Chemo only medicine physician. Reason for Referral: Medical Oncology Scheduling Instructions: Aleah Hernandez will call you to coordinate your care as prescribed by the provider. If you don? t hear from a wholesale representative within 2 business days, please call Comments Please be aware that coverage of these services is subject to the terms and limitations of your health insurance plan. Call member services at your health plan with any benefit or coverage questions. Aleah Hernandez will call you to coordinate your care as prescribed by the provider. If you don? t hear from a wholesale representative within 2 business days, please call Encounter Details Date Type Department Care Team (Late st Contact Info) Description 05/13/2023 Orders Only [facility] [address] 4[address] [place] [address] Rachel Sanz PA-C [address] [place] [address] Metastatic carcinoma involving bone with [...] Associated Diagnoses Orde r Schedule Adult Oncology/Hematology It Project Lead Referral Referral Urgent: 3-5 Days Metastatic carcinoma [...] (H) documented in this encounter Care Teams Vineyard Worker Relationship Specialty Start Date End Date Ondina Chávez MD [facility] [address] [place] [address] PCP - General Family Medicine 05/07/23 documented as of this encounter
--- OUTSIDE RECORDS SUMMARY | 2023-08-09 19:06 | XMS_ITS | Encounter Summary ---
Author Name Unknown Organization [facility] Address [address] [place] [address] Care Team Providers Care Casino Attendant Name Role Phone Ondina Chávez MD Primary Care Provider [phone] Reason for Visit * Diagnostic Imaging PET (Routine) - Closed Specialty Diagnoses / Procedures Referred By Mikki feliciano Referred To Contact Radiology. 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) Procedures PET Oncology (Eyes to Thighs) PET Oncology Whole Body Rachel Sanz PA-C [address] [place] [address] [place] [address] Referral ID Status Reason Start Date Expiration Date Visits Re quested Visits Authorized [id number] Closed 05/13/2023 05/12/2024 1 1 Encounter Details Date Type Department Care Team (Latest Contact Info) Description 05/15/2023 10:12 AM CDT - 05/15/2023 11:59 PM CDT Hospital Encounter [facility] [address] [place] [address] Rachel Sanz PA-C [address] [place] [address] Metastatic carcinoma involving bone with [...] and bilateral iliac bones. Procedure Note Jj eKene MD - 05/15/2023 Combined Report of: PET [...] mLs documented in this encounter Care Teams Casino Attendant Relationship Specialty Start Date End Date Ondina Chávez MD [facility] [address] [place] [address] PCP - General Family Medicine 05/07/23 documented as of this encounter
--- OUTSIDE RECORDS SUMMARY | 2023-08-09 19:06 | XMS_ITS | Encounter Summary ---
Author Name Unknown Organization [facility] Address [address] [place] [address] Care Team Providers Care Stone Cutter Name Role Phone Ondina Cáhvez MD Primary Care Provider [phone] Max Lee MD Unavailable [phone] Zuleika Rogers MD Unavailable [phone] Igor Myers MD Unavailable Unavaila Donna Hunt RN Unavailable Unavailable Igor Myers MD Unavailable Unavaila Shiva Huff MD Unavailable [phone] Encounter Details Date Type Department Care Team (Late st Contact Info) Description 05/20/2023 MyC Medical Advice [facility] [address] [place] [address] Ana Black Social History Tobacco [...] on filedocumented in this encounter Care Teams Stone Cutter Relationship Specialty Start Date End Date Ondina Chávez MD [facility] [address] [place] [address] PCP - General Family Medicine 05/07/23 Max Lee MD [address] [place] [address] Hematology & Oncology 05/17/23 Zuleika Rogers MD [address] [place] [address] Radiation Oncology 05/17/23 05/20/23 Igor Myers MD Hematology & Oncology 05/20/23 Donna Ang, RN Specialty Senior Software Qa Engineer Hematology & Oncology 05/31/23 Igor Myers MD Assigned Cancer Care Provider 06/01/23 Shiva Kruger MD [address] [place] [address] Assigned Musculoskeletal Provider 05/18/23 documented as of this encounter
--- OUTSIDE RECORDS SUMMARY | 2023-08-09 19:07 | XMS_ITS | Encounter Summary ---
Author Name Unknown Organization [facility] Address [address] [place] [address] Care Team Providers Care Video Game Creator Name Role Phone Ondina Chávez MD Primary Care Provider [phone] Encounter Details Date Type Department Care Team (Late st Contact Info) Description 05/07/2023 Telephone [facility] [address] 4[address] [place] [address] Shiva Kruger MD [address] [place] [address] Social History Tobacco Use Types Packs/Day Years [...] on filedocumented in this encounter Care Teams Video Game Creator Relationship Specialty Start Date End Date Ondina Chávez MD [facility] [address] [place] [address] PCP - General Family Medicine 05/07/23 documented as of this encounter
--- OUTSIDE RECORDS SUMMARY | 2023-08-09 19:07 | XMS_ITS | Encounter Summary ---
Author Name Unknown Organization [facility] Address [address] [place] [address] Care Team Providers Care Gear Cutting Machine Set Up Operator Name Role Phone Ondina Chávez MD Primary Care Provider [phone] Encounter Details Date Type Department Care Team (Late st Contact Info) Description 05/10/2023 Orders Only [facility] Interventional Radiology [address] [place] [address] Zuri Pizarro APRN UNIT LEADER [address] [place], [place] [address] Bone cyst Social History Tobacco Use Types [...] encounter Consult Notes * Zuri Pizarro APRN UNIT LEADER - 05/10/2023 6:45 AM CDTAssociated Order(s): IR [...] Surg made aware of IR recommendations via [employer] messaging. Zuri Pizarro DNP, APRN Interventional Radiology IR on-call pager: [phone] documented in this encounter Plan of Treatment Not on file documented as of this encounter Visit Diagnoses Diagnosis Bone cyst Cyst of bone (localized), unspecified documented in this encounter Care Teams Gear Cutting Machine Set Up Operator Relationship Specialty Start Date End Date Ondina Chávez MD [facility] [address] [place] [address] PCP - General Family Medicine 05/07/23 documented as of this encounter
--- OUTSIDE RECORDS SUMMARY | 2023-08-09 19:07 | XMS_ITS | Encounter Summary ---
Author Name Unknown Organization [facility] Address [address] [place] [address] Care Team Providers Care Services Manager Name Role Phone Ondina Chávez MD Primary Care Provider [phone] Reason for Visit * Reason Onset Date Comments Previsit 05/09/2023 Encounter Details Date Type Department Care Team (Late st Contact Info) Description 05/09/[address] [facility] [address] 4[address] [place] [phone] Shiva Kruger MD [address] [place], [place] [address] Previsit Social History Tobacco Use Types Packs/Day [...] Taken Sent a request for imaging from [facility]. Action May 09, 2023 9:54 AM MT Action Taken Imaging from [facility] received and called [facility] for the MRI done [...] Tab 04/19/2023 - aramis Zambrano MD - [facility] OFFICE NOTE from other specialist Media Tab 10/27/2014 - Josh Reynoso MD - [facility] DISCHARGE REPORT from the ER Media Tab 04/02/2023 - [facility] ED MEDICATION LIST Care Everywhere LABS MRI PACS [facility]: 05/08/2023 - LT Femur [facility]: 05/03/2023, 10/15/2014- LT Knee CT SCAN PACS [facility]: 04/02/2023 - Left Lower Extremity XRAYS (IMAGES & REPORTS) PACS [facility]: 04/19/2023 - Left Knee 04/19/2023 - Pelvis documented in this encounter Plan of Treatment Not on file documented as of this encounter Visit Diagnoses Not on filedocumented in this encounter Care Teams Services Manager Relationship Specialty Start Date End Date Ondina Chávez MD [facility] [address] [place] [address] PCP - General Family Medicine 05/07/23 documented as of this encounter
--- OUTSIDE RECORDS SUMMARY | 2023-08-09 19:07 | XMS_ITS | Encounter Summary ---
Author Name Unknown Organization [facility] Address [address] [place] [address] Care Team Providers Care Leathersmith Name Role Phone Ondina Chávez MD Primary Care Provider [phone] Reason for Visit * Reason Onset Date Comments Schedule Surgery 05/10/2023 Dr. Kruger Encounter Details Date Type Department Care Team (Late st Contact Info) Description 05/10/2023 Telephone [facility] [address] 4[address] [place] [address] Shiva Kruger MD [address] [place] [address] Schedule Surgery (Dr. Kruger) Social [...] Informed patient they will need an adult regional driver Yes Pre op with Provider PAC completed Additional imaging/appointments: TBD, per case request. Surgery packet: Received Additional comments: Requesting c/b to go over lab results. Urszula Pires on 05/10/2023 at 10:21 AM * Telephone Encounter - Urszula Pires I - 05/10/2023 10:09 AM CDT Phoned patient to confirm surgery with Dr. Kruger. Provided brief reason of call and call back number of [phone]. documented in this encounter Plan of Treatment Not on file documented as of this encounter Visit Diagnoses Not on filedocumented in this encounter Care Teams Leathersmith Relationship Specialty Start Date End Date Ondina Chávez MD [facility] [address] [place] [address] PCP - General Family Medicine 05/07/23 documented as of this encounter
--- OUTSIDE RECORDS SUMMARY | 2023-08-09 19:07 | XMS_ITS | Clinical Summary ---
Author Name Unknown Organization [facility] Address [place], [place] [address] Care Team Providers Care Market Intelligence Consultant Name Role Phone Ondina Chávez MD Primary Care Provider [phone] Allergies No known active allergies Medications Medication [...] Type Department Care Team Description 07/31/[address] [address] Ondina Chávez MD Refill Request (Trazodone) 05/16/[address] [address] Ondina Chávez MD 05/10/2023 4:05 PM CDT Phone Office Visit [facility] [address] [place] [address] Ondina Chávez MD Sleep Problem 05/10/2023 Travel 05/10/2023 Telephone [facility] [address] [place] [address] Ondina Chávez MD Medication Management (new prescription for valium) from Last 3 Months Immunizations Name Administration Dates Next Due AMB Influenza, IIV4 PF (=>6 mos Flulaval,Fluzone Fluarix)(Flu Clinic Only) 05/05/2018 COVID-19 vaccine (LocoMobi 30mcg/0.3mL) 12YO+ BIVALENT PFANTONY 03/28/2022 Influenza Virus, Unspecified 06/26/2010, 05/03/2008,04/23/2007,2005,04/16/2005 Influenza, [...] 3 3 Date Outcome GA Total Labor Labor/2nd/3rd Weight Sex Delivery Anes PTL Claudia A1 [...] through age 75 2022 COVID-19 vaccine series (2022- season) 2023 03/28/2022, 04/19/2021, 09/24/2020, Additional history [...] screening for ag e 18-79 Completed 03/28/2022 Care Teams Market Intelligence Consultant Relationship Specialty Start Date End Date Ondina Chávez MD [address] [place] [address] PCP - General Family Practice 08/18/20
--- OUTSIDE RECORDS SUMMARY | 2023-08-09 19:07 | XMS_ITS | Encounter Summary ---
Author Name Unknown Organization [place] Address [address] [place] [address] Care Team Providers Care Firebrick Layer Helper Name Role Phone Ondina Chávez MD Primary Care Provider [phone] Reason for Visit * Reason Comments Pre-Op Exam Encounter Details Date Type Department Care Team (Latest Contact Info) Description 05/09/2023 3:30 PM CDT Office Visit [facility] Preoperative Assessment Center [address] 5th [place] [address] Lily Meyers, GAIL [address] [address] Preop examination (Primary Dx); Primary [...] Grade View: 1; Adjucts: Stylet; Placement Person: FIREMAN HELPER; Attempts: 1 05/13/23 1313 by Emelia Bermudez APRN FIREMAN HELPER 05/13/23 1353 by Emelia Bermudez APRN [...] Please come to: Please come to: [facility] [address] [place] [address]. [place] [address] The Green Ramp for patients and visitors is located beneath the [facility]. The parking facility entrance is at the intersection of [address] [place] [address]. Patients and visitors who self-park will receive the reduced hospital parking rate (noticket validation needed). [place] parking, located at the [facility] main entrance on [address] [place] [address], is available Saturday - Saturday from 7 am to 3:30 pm. Discounted parking pass options can be purchased from geometry tutor attendants during business hours. -Check in at the security desk in the [facility] ([facility]) Lobby. They willdirect you to the correct elevators. -Proceed to the 3rd floor, check in at the Adult Surgery Waiting Lounge. [phone] If you are in need of directions, [...] or fragrance. - No makeup or fingernail icelandic. - Bring your ID and insurance card. [...] contact the Pre Admission Nursing Office at [phone]. - If you have health changes between [...] others Clean your hands with alcohol hand chief telephone operator. Do this when you arrive at and [...] encounter H&P Notes * Lily Meyers APRN PRESS PIPE INSPECTOR - 05/09/2023 3:30 PM CDT Images from [...] P in preparation for Procedure Information Case: [id number] Date/Time: 05/13/23 1130 Procedures: biopsy left distal [...] Surgical History: Procedure Laterality Date ENT SURGERY [place] teeth extracted. Prior to Admission Medications Current [...] prior anesthetic. No history of anesthetic complications ([place] teeth extraction.) ROS/MED HX ENT/Pulmonary: - neg pulmonary ROS Neurologic: - neg neurologic ROS Cardiovascular: Comment: Denies cardiac symptoms including chest pain, SOB, palpitations, syncope, CHANEL, orthopnea, or PND. 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 Resulting [facility] LABORATORY-CENTRAL LABORATORY Specimen Collected: 01/02/23 11:51 AM HEMOGLOBIN Specimen: Blood - Blood specimen (specimen) Component Ref Range & Units 4 mo ago HEMOGLOBIN 12.0 - 16.0 g/dL 13.0 MCV 80 - 100 fL 93 Resulting [facility] Specimen Collected: 01/02/23 11:51 AM FERRITIN Specimen: Blood - Blood specimen (specimen) Component Ref Range & Units 4 mo ago FERRITIN 15.0 - 150.0 ng/mL 28.3 Resulting [facility] LABORATORY-CENTRAL LABORATORY Specimen Collected: 01/02/23 11:51 AM [...] Antibody Screen Negative Negative SPECIMEN EXPIRATION DATE [id number] (L): Data is abnormally low (H): Data [...] Lily Meyers APRN CNP Preoperative Assessment Center [facility] documented in this encounter Plan of Treatment Not on file documented as of this encounter Visit Diagnoses Diagnosis Preop examination- Primary Preoperative examination, unspecified Primary hypertension Unspecified essential hypertension documented in this encounter Care Teams Firebrick Layer Helper Relationship Specialty Start Date End Date Ondina Chávez MD [facility] [address] [place] [address] PCP - General Family Medicine 05/07/23 documented as of this encounter
--- OUTSIDE RECORDS SUMMARY | 2023-08-09 19:07 | XMS_ITS | Encounter Summary ---
Author Name Unknown Organization [place] Address [address] [place] [address] Care Team Providers Care Sales Hunter Name Role Phone Ondina Chávez MD Primary Care Provider [phone] Encounter Details Date Type Department Care Team (Late st Contact Info) Description 05/09/2023 4:45 PM CDT Lab [address] 1st [place] [address] Bone cyst; Primary hypertension Social [...] PM CDT BLOOD BANK SPECIMEN EXPIRATION DATE [id number] 05/08/2023 7:00 PM CDT BLOOD BANK Blood STRUCTURE OF LEFT UPPER LIMB / Unknown Venipuncture / Unknown 05/09/2023 4:21 PM CDT 05/09/2023 4:21 PM CDT Lily Meyers [facility] DIRECTOR GASTROENTEROLOGY PROFESSOR LAB - BLOOD BAN K TEST ORDER BLOOD BANK [address] [place] [address], [facility] * (ABNORMAL) Protein Electrophoresis, Serum (05/09/2023 4:21 [...] ORDERABLES [facility] SPECIALTY CORE/PROT/ENDO Specialty Core/Prot/Endo [address] [facility] [address] [facility], Room [address] [place] [address], [facility] [phone] * Total Protein, Serum for ELP (05/09/2023 4:21 PM CDT) Total Protein Serum for ELP 7.9 6.4 - 8.3 g/dL 05/10/2023 3:42 AM CDT [facility] LAB[facility] Blood STRUCTURE OF LEFT UPPER LIMB / Unknown Venipuncture / Unknown 05/09/2023 4:21 PM CDT 05/09/2023 4:21 PM CDT Rachel Sanz PA-C LAB - BL OOD ORDERABLES U LABORATORY [facility] [place] Core Lab [address] [facility] J [facility], [address] [place] [address], [facility] [phone] * (ABNORMAL) CBC with platelets and differential (05/09/2023 4:21 PM CDT) [facility] WBC Count 7.9 4.0 - 11.0 10e3/uL 05/09/2023 4:25 PM CDT [facility] LABORATORY - CORE LAB RBC Count 3.37(L) 3.80 - 5.20 10e6/uL 05/09/2023 4:25 PM CDT [facility] LABORATORY - CORE LAB Hemoglobin 10.2(L) 11.7 - 15.7 g/dL 05/09/2023 4:25 PM CDT [facility] LABORATORY - CORE LAB Hematocrit 30.2(L) 35.0 - 47.0 % 05/09/2023 4:25 PM CDT [facility] LABORATORY - CORE LAB MCV 90 78 - 100 fL 05/09/2023 4:25 PM CDT [facility] LABORATORY - CORE LAB MCH 30.3 26.5 - 33.0 pg 05/09/2023 4:25 PM CDT [facility] LABORATORY - CORE LAB MCHC 33.8 31.5 - 36.5 g/dL 05/09/2023 4:25 PM CDT [facility] LABORATORY - CORE LAB RDW 13.4 10.0 - 15.0 % 05/09/2023 4:25 PM CDT [facility] LABORATORY - CORE LAB Platelet Count 460(H) 150 - 450 10e3/uL 05/09/2023 4:25 PM CDT [facility] LABORATORY - CORE LAB % Neutrophils 72 % 05/09/2023 4:25 PM CDT [facility] LABORATORY - CORE LAB % Lymphocytes 19 % 05/09/2023 4:25 PM CDT [facility] LABORATORY - CORE LAB % Monocytes 9 % 05/09/2023 4:25 PM CDT [facility] LABORATORY - CORE LAB % Eosinophils 0 % 05/09/2023 4:25 PM CDT [facility] LABORATORY - CORE LAB % Basophils 0 % 05/09/2023 4:25 PM CDT [facility] LABORATORY - CORE LAB % Immature Granulocytes 0 % 05/09/2023 4:25 PM CDT [facility] LABORATORY - CORE LAB NRBCs per 100 WBC 0 <1 /100 023 4:25 PM CDT [facility] LABORATORY - CORE LAB Absolute Neutrophils 5.6 1.6 - 8.3 10e3/uL 05/09/2023 4:25 PM CDT [facility] LABORATORY - CORE LAB Absolute Lymphocytes 1.5 0.8 - 5.3 10e3/uL 05/09/2023 4:25 PM CDT [facility] LABORATORY - CORE LAB Absolute Monocytes 0.7 0.0 - 1.3 10e3/uL 05/09/2023 4:25 PM CDT [facility] LABORATORY - CORE LAB Absolute Eosinophils 0.0 0.0 - 0.7 10e3/uL 05/09/2023 4:25 PM CDT [facility] LABORATORY - CORE LAB Absolute Basophils 0.0 0.0 - 0.2 10e3/uL 05/09/2023 4:25 PM CDT [facility] LABORATORY - CORE LAB Absolute Immature Granulocytes 0.0 <=0.4 10e3/uL 05/09/2023 4:25 PM CDT [facility] LABORATORY - CORE LAB Absolute NRBCs 0.0 10e3/uL 05/09/2023 4:25 PM CDT [facility] LABORAT[facility] - CORE LAB Blood STRUCTURE OF LEFT UPPER LIMB / Unknown Venipuncture / Unknown 05/09/2023 4:21 PM CDT 05/09/2023 4:21 PM CDT Rachel Sanz PA-C LAB - BL OOD ORDERABLES [facility] LABORATORY - CORE LAB [facility] Surgery [facility] [address] [facility] 1st [place] [address] * (ABNORMAL) [place] and lambda light chain (05/09/2023 4:21 PM CDT) [place] Free Light Chains 4.33(H) 0.33 - 1.94 mg/dL 05/10/2023 11:06 AM CDT UM SPECIALTY CORE/PROT/ENDO Lambda Free Light Chains 2.91(H) 0.57 - 2.63 mg/dL 05/10/2023 11:06 AM CDT SPECIALTY CORE/PROT/ENDO [place] /Lambda Ratio 1.49 0.26 - 1.65 05/10/2023 11:06 AM CDT SPECIALTY CORE/PROT/ENDO Blood STRUCTURE OF LEFT UPPER LIMB / Unknown Venipuncture / Unknown 05/09/2023 4:21 PM CDT 05/09/2023 4:21 PM CDT Rachel Sanz PA-C LAB - BL OOD ORDERABLES SPECIALTY CORE/PROT/ENDO Specialty Core/Prot/Endo [address] [facility] [address] Building, Room [address] [phone] * (ABNORMAL) Erythrocyte sedimentation rate auto (05/09/2023 4:21 PM CDT) Erythrocyte Sedimentation Rate 100(H) 0 - 20 mm/hr 05/09/2023 4:32 PM CDT [facility]ORATORY - CORE LAB Blood STRUCTURE OF LEFT UPPER LIMB / Unknown Venipuncture / Unknown 05/09/2023 4:21 PM CDT 05/09/2023 4:21 PM CDT Rachel Sanz PA-C LAB - BL OOD ORDERABLES [facility]ORATORY - CORE LAB [facility] [address] [place] [address] 1st [place] [address] * (ABNORMAL) CRP inflammation (05/09/2023 4:21 PM CDT) CRP Inflammation 75.60(H) <5.00 mg/L 05/09/2023 4:57 PM CDT [facility]ATORY - CORE LAB Blood STRUCTURE OF LEFT UPPER LIMB / Unknown Venipuncture / Unknown 05/09/2023 4:21 PM CDT 05/09/2023 4:21 PM CDT Rachel Sanz PA-C LAB - BL OOD ORDERABLES [facility] - CORE LAB [facility] [address] [place] [address] 1st [place] [address] * (ABNORMAL) Comprehensive metabolic panel (05/09/2023 4:21 PM CDT) Sodium 133(L) 135 - 145 mmol/L 05/09/2023 4:57 PM CDT [facility]ORATORY - CORE LAB Comment:Reference intervals for this test were updated on 04/09/2023 to more accurately reflect our healthy population. There may be differences in the flagging of prior results with similar values performed with this method. Interpretation of those prior results can be made in the context of the updated reference intervals. Potassium 3.3(L) 3.4 - 5.3 mmol/L 05/09/2023 4:57 PM CDT [facility]AT[facility] - CORE LAB Carbon Dioxide (CO2) 25 22 - 29 mmol/L 05/09/2023 4:57 PM CDT [facility] - CORE LAB Anion Gap 18(H) 7 - 15 mmol/L 05/09/2023 4:57 PM CDT [facility] - CORE LAB Urea Nitrogen 14.1 6.0 - 20.0 mg/dL 05/09/2023 4:57 PM CDT [facility] - CORE LAB Creatinine 0.73 0.51 - 0.95 mg/dL 05/09/2023 4:57 PM CDT [facility] - CORE LAB GFR Estimate >90 >60 mL/min/1. 73m2 05/09/2023 4:57 PM CDT [facility] - CORE LAB Calcium 10.1(H) 8.6 - 10.0 mg/dL 05/09/2023 4:57 PM CDT [facility] - CORE LAB Chloride 90(L) 98 - 107 mmol/L 05/09/2023 4:57 PM CDT [facility] - CORE LAB Glucose 95 70 - 99 mg/dL 05/09/2023 4:57 PM CDT [facility] - CORE LAB Alkaline Phosphatase 110(H) 35 - 104 U/L 05/09/2023 4:57 PM CDT [facility] - CORE LAB AST 25 0 - 45 U/L 05/09/2023 4:57 PM CDT [facility] - CORE LAB Comment:Reference intervals for this test were updated on 12/24/2022 to more accurately reflect our healthy population. There may be differences in the flagging of prior results with similar values performed with this method. Interpretation of those prior results can be made in the context of the updated reference intervals. ALT 16 0 - 50 U/L 05/09/2023 4:57 PM CDT [facility] - CORE LAB Comment:Reference intervals for [...] - 8.3 g/dL 05/09/2023 4:57 PM CDT [facility] - CORE LAB Albumin 4.1 3.5 - 5.2 g/dL 05/09/2023 4:57 PM CDT [facility] - CORE LAB Bilirubin Total 0.4 <=1.2 mg/dL 05/09/2023 4:57 PM CDT [facility] - CORE LAB Blood STRUCTURE OF LEFT UPPER LIMB / Unknown Venipuncture / Unknown 05/09/2023 4:21 PM CDT 05/09/2023 4:21 PM CDT Rachel Sanz PA-C LAB - BL OOD ORDERABLES [facility] - CORE LAB [facility] Surgery [address] 1st [place] [address] documented in this encounter Visit Diagnoses Diagnosis Bone cyst Cyst of bone (localized), unspecified Primary hypertension Unspecified essential hypertension documented in this encounter Care Teams Sales Hunter Relationship Specialty Start Date End Date Ondina Chávez MD [facility] [address] [place] [address] PCP - General Family Medicine 05/07/23 documented as of this encounter
--- OUTSIDE RECORDS SUMMARY | 2023-08-09 19:07 | XMS_ITS | Encounter Summary ---
Author Name Unknown Organization [place] Address [address] [place] [address] Care Team Providers Care Marketing Lead Name Role Phone Ondina Chávez MD Primary Care Provider [phone] Reason for Referral * Therapeutic Imaging/IR (Routine: Next available opening) - Pending Review Specialty Diagnoses / Procedures Referred By Contac t Referred To Contact Radiology. Diagnoses Bone cyst Procedures IR Referral Outpatient Rachel Sanz PA-C [address] [place] [address] Referral ID Status Reason Start Date Expiration Date V isits Requested Visits Authorized [id number] Pending Review 05/09/2023 05/08/2024 1 1 * Diagnostic Imaging XR (Routine) - Pending Review Specialty Diagnoses / Procedures Referred By Contac t Referred To Contact Radiology. Diagnoses Bone cyst Procedures XR Chest 2 VW Rachel Sanz PA-C [address] [place] [address] Referral ID Status Reason Start Date Expiration Date V isits Requested Visits Authorized [id number] Pending Review 05/09/2023 05/08/2024 1 1 Reason for Visit * Reason Comments Consult Left distal femur le german referred by KENIA Ortega // first noticed pain early March Encounter Details Date Type Department Care Team (Late st Contact Info) Description 05/09/2023 1:00 PM CDT Office Visit [facility] [place] [address] [facility] [address] 4th [place] [phone] Shiva Kruger MD [address] [place] [address] Bone cyst (Primary Dx) Social History Tobacco [...] is a non-smoker. 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 She is with 3 children. She has a couple family members who are physicians. She has also set up a consult with the [facility] next week if needed. No other concerns. [...] 7) Primary Pain Location: (left thigh) [facility] [address] [place] [address] No Known Allergies Current [...] (willing/able to accept information): Yes Any cultural factors/yazidi beliefs that may influence understanding or compliance? [...] the following person or people: Francis Soaresnellie ([phone]) -Next step: Surgery scheduled 05/13. Pre-op H&P scheduled with PAC 05/09 at 3:30. Time spent with patient: 15 minutes. Patria Tidwell RNCC documented in this encounter Plan of Treatment Not on file documented as of this encounter Procedures Procedure Name Priority Date/Time Associated Diagnosis Comments CASE REQUEST MODIFICATION Routine 2022 2:35 PM CDT documented in this encounter Results * (ABNORMAL) [place] and lambda light chain (05/09/2023 4:21 PM CDT) [place] Free Light Chains 4.33(H) 0.33 - 1.94 mg/dL 05/10/2023 11:06 AM CDT [facility] SPECIAL[facility] CORE/PROT/ENDO Lambda Free Light Chains 2.91(H) 0.57 - 2.63 mg/dL 05/10/2023 11:06 AM CDT [facility] SPECIALTY CORE/PROT/ENDO [place] /Lambda Ratio 1.49 0.26 - 1.65 05/10/2023 11:06 AM CDT SPECIALTY CORE/PROT/ENDO Blood STRUCTURE OF LEFT UPPER LIMB / Unknown Venipuncture / Unknown 05/09/2023 4:21 PM CDT 05/09/2023 4:21 PM CDT Rachel Sanz PA-C LAB - BL OOD ORDERABLES UM SPECIALTY CORE/PROT/ENDO [facility] Specialty Core/Prot/Endo [address] [facility] [address] Building, Room [address] [phone] * (ABNORMAL) Erythrocyte sedimentation rate auto (05/09/2023 4:21 PM CDT) Erythrocyte Sedimentation Rate 100(H) 0 - 20 mm/hr 05/09/2023 4:32 PM CDT [facility] - [facility] LAB Blood STRUCTURE OF LEFT UPPER LIMB / Unknown Venipuncture / Unknown 05/09/2023 4:21 PM CDT 05/09/2023 4:21 PM CDT Rachel Sanz PA-C LAB - BL OOD ORDERABLES Performing Organization Address [facility] Co de Phone Number [facility] - [facility]ORE LAB [address] [place] [address] * (ABNORMAL) CRP inflammation (05/09/2023 4:21 PM CDT) Pathologist [facility] CRP Inflammation 75.60(H) <5.00 mg/L 05/09/2023 4:57 PM CDT [facility] - [facility]ORE LAB Blood STRUCTURE OF LEFT UPPER LIMB / Unknown Venipuncture / Unknown 05/09/2023 4:21 PM CDT 05/09/2023 4:21 PM CDT Rachel Sanz PA-C LAB - BL OOD ORDERABLES Performing Organization Address [facility] de Phone Number [facility] - [facility]ORE LAB [facility] - [address] [place] [address] * (ABNORMAL) Comprehensive metabolic panel (05/09/2023 4:21 PM CDT) [facility] Sodium 133(L) 135 - 145 mmol/L 05/09/2023 4:57 PM CDT [facility] - [facility] LAB Comment:Reference intervals for this test were updated on 04/09/2023 to more accurately reflect our healthy population. There may be differences in the flagging of prior results with similar values performed with this method. Interpretation of those prior results can be made in the context of the updated reference intervals. Potassium 3.3(L) 3.4 - 5.3 mmol/L 05/09/2023 4:57 PM CDT [facility] - [facility]ORE LAB Carbon Dioxide (CO2) 25 22 - 29 mmol/L 05/09/2023 4:57 PM CDT [facility] - [facility]ORE LAB Anion Gap 18(H) 7 - 15 mmol/L 05/09/2023 4:57 PM CDT [facility] - [facility]ORE LAB Urea Nitrogen 14.1 6.0 - 20.0 mg/dL 05/09/2023 4:57 PM CDT [facility] - [facility]ORE LAB Creatinine 0.73 0.51 - 0.95 mg/dL 05/09/2023 4:57 PM CDT [facility] - [facility]ORE LAB GFR Estimate >90 >60 mL/min/1. 73m2 05/09/2023 4:57 PM CDT [facility] - [facility]ORE LAB Calcium 10.1(H) 8.6 - 10.0 mg/dL 05/09/2023 4:57 PM CDT [facility] - [facility] LAB Chloride 90(L) 98 - 107 mmol/L 05/09/2023 4:57 PM CDT [facility] - [facility]ORE LAB Glucose 95 70 - 99 mg/dL 05/09/2023 4:57 PM CDT [facility] - [facility]ORE LAB Alkaline Phosphatase 110(H) 35 - 104 U/L 05/09/2023 4:57 PM CDT [facility] - [facility]ORE LAB AST 25 0 - 45 U/L 05/09/2023 4:57 PM CDT [facility] LAB Comment:Reference intervals for this test were updated on 12/24/2022 to more accurately reflect our healthy population. There may be differences in the flagging of prior results with similar values performed with this method. Interpretation of those prior results can be made in the context of the updated reference intervals. ALT 16 0 - 50 U/L 05/09/2023 4:57 PM CDT [facility] Comment:Reference intervals for [...] - 8.3 g/dL 05/09/2023 4:57 PM CDT [facility] LAB Albumin 4.1 3.5 - 5.2 g/dL 05/09/2023 4:57 PM CDT [facility] LAB Bilirubin Total 0.4 <=1.2 mg/dL 05/09/2023 4:57 PM T [facility] - [facility] LAB Blood STRUCTURE OF LEFT UPPER LIMB / Unknown Venipuncture / Unknown 05/09/2023 4:21 PM CDT 05/09/2023 4:21 PM CDT Rachel Sanz PA-C LAB - BL OOD ORDERABLES [facility] - CORE LAB [facility] [address] 1st [place] [address] * XR Chest 2 VW (05/09/2023 2:10 [...] unspecified documented in this encounter Care Teams Marketing Lead Relationship Specialty Start Date End Date Ondina Chávez MD [facility] [address] [place] [address] PCP - General Family Medicine 05/07/23 documented as of this encounter
--- OUTSIDE RECORDS SUMMARY | 2023-08-09 19:07 | XMS_ITS | Encounter Summary ---
Author Name Unknown Organization [place] Address [address] [place] [address] Care Team Providers Care Yeast Fermentation Attendant Name Role Phone Ondina Chávez MD Primary Care Provider [phone] Reason for Visit * Reason Onset Date Comments Appointment 05/07/2023 RED FLAG TUMOR N EEDS VISIT Encounter Details Date Type Department Care Team (Late st Contact Info) Description 05/07/[address] [facility] [address] [place] [address] Unknown, DoctorMD Appointment (RED FLAG [...] of femur w and w/o done at [facility] SaturdayMay 08 at 7pm. Referring provider's nurse will push image early morning. Sujey Gilliland LPN * Telephone Encounter - Audra Yung - 05/07/2023 9:57 AM CDTSummary: RED FLAG TUMOR NEEDS VISIT [facility] Phone Message May a detailed message be left on voicemail: no Reason for Call: Needs appt for lesion left femur/ Dr Pravin Zambrano @ [place]/ MRI left knee @ [facility] MRI was done of the left knee where they saw the lesion. Radiologist is recommending further imaging, but they wanted to see what the Ortho Oncology doctor would recommend. Call Priya HENDERSON to schedule the appt [phone] Action Taken: Message routed to: [facility] Travel Screening: Not Applicable documented in this encounter Plan of Treatment Not on file documented as of this encounter Visit Diagnoses Not on filedocumented in this encounter Care Teams Yeast Fermentation Attendant Relationship Specialty Start Date End Date Ondina Chávez MD [facility] [address] [place] [address] PCP - General Family Medicine 05/07/23 documented as of this encounter
--- OUTSIDE RECORDS SUMMARY | 2023-08-09 19:07 | XMS_ITS | Encounter Summary ---
Author Name Unknown Organization [place] Address [address] [place] [address]. [place] [address] Care Team Providers Care Emergency Medical Dispatcher Name Role Phone Ondina Chávez MD Primary Care Provider [phone] Encounter Details Date Type Department Care Team (Late st Contact Info) Description 05/06/2023 Medical Correspondence [facility] [address] [place] [id number] Outside, Provider Social History Tobacco Use [...] on filedocumented in this encounter Care Teams Emergency Medical Dispatcher Relationship Specialty Start Date End Date Ondina Chávez MD [facility] [address] [place] [address] PCP - General Family Medicine 05/07/23 documented as of this encounter
--- OUTSIDE RECORDS SUMMARY | 2023-08-09 19:07 | XMS_ITS | Encounter Summary ---
Author Name Unknown Organization [place] Address [address] [place] [address]. [place] [address] Care Team Providers Care Relaster Name Role Phone Ondina Chávez MD Primary Care Provider [phone] Encounter Details Date Type Department Care Team (Late st Contact Info) Description 05/10/[address] [facility] [address] [place] [address] Rachel Sanz PA-C [address] [place] [address] Social History Tobacco Use Types Packs/Day [...] on filedocumented in this encounter Care Teams Relaster Relationship Specialty Start Date End Date Ondina Chávez MD [facility] [address] [place] [address] PCP - General Family Medicine 05/07/23 documented as of this encounter
--- OUTSIDE RECORDS SUMMARY | 2023-08-09 19:07 | XMS_ITS | Encounter Summary ---
Author Name Unknown Organization [place] Address [address] [place] [address] Care Team Providers Care Bus And Trolley Dispatcher Name Role Phone Ondina Chváez MD Primary Care Provider [phone] Encounter Details Date Type Department Care Team [...] on filedocumented in this encounter Care Teams Bus And Trolley Dispatcher Relationship Specialty Start Date End Date Ondina Chávez MD [facility] [address] [place] [address] PCP - General Family Medicine 05/07/23 documented as of this encounter
--- OUTSIDE RECORDS SUMMARY | 2023-08-09 19:07 | XMS_ITS | Encounter Summary ---
Author Name Unknown Organization [place] Address [address] [place] [address]. [place] [address] Care Team Providers Care Lockstitch Shoulder Joiner Name Role Phone Ondina Chávez MD Primary Care Provider [phone] Reason for Visit * Diagnostic Imaging XR (Routine) - Pending Review Specialty Diagnoses / Procedures Referred By Mikki t Referred To Contact Radiology. Diagnoses Bone cyst Procedures XR Chest 2 VW Rachel Sanz PA-C [address] [place] [address] Referral ID Status Reason Start Date Expiration Date V isits Requested Visits Authorized [id number] Pending Review 05/09/2023 05/08/2024 1 1 Encounter Details Date Type Department Care Team (Late st Contact Info) Description 05/09/2023 2:00 PM CDT Ancillary Procedure [facility] Orthopedic Xray [address] [place] [address] Rachel Sanz PA-C [address] [place] [id number] Bone cyst Social History Tobacco Use Types [...] unspecified documented in this encounter Care Teams Lockstitch Shoulder Joiner Relationship Specialty Start Date End Date Onidna Chávez MD [facility] [address] [place] [address] PCP - General Family Medicine 05/07/23 documented as of this encounter
== END 2023-08-08 12:03 | disposition home or self-care (01) ==
LOC: AMB 08-09 18:57
PROVIDERS: PCP Family Medicine; Visit Provider Emergency Medicine
DX: R55 Syncope and collapse (principal); S09.90XA Unspecified injury of head, initial encounter; W18.30XA Fall on same level, unspecified, initial encounter; Y93.89 Activity, other specified; Y92.512 Supermarket, store or market as the place of occurrence of the external cause
CPT/HCPCS: A0425; A0427

== ENCOUNTER 2023-08-08 16:53 | Emergency (ER) | payer OTHER, SELFPAY ==
[2023-08-08] VITALS (35 sets, daily range): BP systolic 85–105; BP diastolic 45–85; PULSE 92–120; RESP 20; TEMP 37.8–37.9; O2SAT 98–100; BMI 26.3
--- NOTE | 2023-08-08 17:12 | ED.GENADULT ---
HPI - General Adult General Date Seen: 08/08/23 Chief complaint: Syncope/Fainted Stated complaint: Syncope Time Seen by Provider: 08/08/23 17:01 History of Present Illness HPI narrative: This is a 48-year-old female with a past medical history notable for metastatic malignant melanoma. She follows with oncology at [facility] and is currently on to oral chemo medications and oral Decadron for her therapy. She has been on those meds for the past several weeks. She was actually due to have a follow-up PET scan and lab workup through [facility] today. Last night she began to feel ill with fever and chills. No other symptoms at that time. No cough. No chest pain. She was nauseous but has a lot of nausea and vomiting related to her chemo. No abdominal pain. No diarrhea. She took an at-home COVID test and it was negative. She called her oncologist about the fever and chills and they decided to delay her previously scheduled PET scan This morning she was nauseous. She tried to take some electrolyte drinks and water but threw them up. Later she remember to take her Zofran so she took that. She really has not been able to eat today or drink very much. She was at the store with her daughter. She was standing at the store when she began to feel lightheaded. She felt lightheadedness coming down so she tried to put her head down. In retrospect, she wishes she would have just sat down on the floor. Despite putting her head down she did lose consciousness. She did not have any chest pain, headache, shortness of breath, palpitations or any other symptoms leading up to her fainting spell. She came to immediately. There was no witness seizure. No postictal confusion. Since waking up she says she is feeling fine. No shortness of breath. No chest pain. No palpitations. She is nauseous. 911 was called because she fainted at the store. Initial blood pressure was low in the 80s/50s. EMS was unable to start an IV. Blood sugar was 118. The patient is mentating normally. She is polite and o'clock appreciative of her paramedics care. Her daughter is with her. Daughter is appropriately concerned. Patient says she has otherwise been ?dialed in? with her chemo and taking it as prescribed. No recent leg swelling. No rashes. She is feeling optimistic and was looking forward to getting her PET scan done today. But understands why it cannot be done in the setting of fever. Had no known sick exposures. No urinary symptoms. No abdominal pain. No rashes. She normally takes Decadron 2 times a day. She did manage to take her Decadron dose this morning but did not get her afternoon dose yet. Related Data Home Medications Medication Instructions Recorded Confirmed lisinopril 10 1 tab PO DAILY 04/02/23 04/19/23 mg-hydrochlorothiazide 12.5 mg tablet dabrafenib 75 mg capsule (Tafinlar) 150 mg PO BID 08/08/23 08/08/23 dexamethasone 1 mg tablet 1 mg PO BID 08/08/23 08/08/23 hydroxyzine HCl 25 mg tablet 25 - 50 mg PO QPM PRN anxiety 08/08/23 08/08/23 ondansetron HCl 8 mg tablet 8 mg PO Q8H PRN nausea/vomiting 08/08/23 08/08/23 trametinib 2 mg tablet (Mekinist) 2 mg PO DAILY 08/08/23 08/08/23 trazodone 50 mg tablet 100 mg PO QPM PRN 08/08/23 08/08/23 Previous Rx's Medication Instructions Recorded diazepam 5 mg tablet (Valium) 5 mg PO ONCE #2 tabs 05/07/23 oxycodone 5 mg tablet 5 mg PO Q6H PRN pain #10 tabs 05/07/23 Allergies Allergy/AdvReac Type Severity Reaction Status Date / Time No Known Drug Allergies Allergy Unverified 08/08/23 18:49 [facility] Medical History (Updated 08/08/23 @ 23:54 by Jordan Wilkins MD) Hypertension ?I10 - Essential (primary) hypertension (ICD-10) Sprain of anterior cruciate ligament of left knee ?S83.512A - Sprain of anterior cruciate ligament of left knee, initial encounter (ICD-10) Social History Smoking Status: Never smoker How often do you have a drink containing alcohol: never AUDIT-C Alcohol total score: 0 Non-prescribed substance use: denies use Exam Narrative: Exam Narrative: Constitutional: Appears well-developed and well-nourished. Alert. Conversant. Non toxic. Tachycardic. Blood pressure 92/50 HENT: Head: Atraumatic. Nose: Nose normal. Mouth/Throat: Oral mucosa is clear and moist. no trismus. Pharynx normal. Tonsils symmetric. No tonsillar enlargement, erythema, or exudate. Eyes: Conjunctivae normal. EOM normal. Pupils equal, round, and reactive to light. No scleral icterus. Neck: Normal range of motion. Neck supple. No tracheal deviation present. Cardiovascular: rate 115 on the monitor. Tachycardic, regular rhythm. No gallop. No friction rub. No murmur heard. Symmetric radial artery pulses Pulmonary/Chest: Effort normal. No stridor. No respiratory distress. No wheezes. No rales. No rhonchi . No tenderness. Abdominal: Soft. Bowel sounds normal. No distension. No mass. No HSM. No tenderness. No rebound. No guarding. Musculoskeletal: RUE: Normal range of motion. No tenderness. No deformity LUE: Normal range of motion. No tenderness. No deformity RLE: Normal range of motion. No edema. No tenderness. No deformity LLE: Normal range of motion. No edema. No tenderness. No deformity Lymph: No cervical adenopathy. Neurological: Alert and oriented to person, place, and time. Normal strength. CN II-VII intact. No sensory deficit. GCS eye subscore is 4. GCS verbal subscore is 5. GCS motor subscore is 6. Normal coordination Skin: Skin is warm and dry. No rash noted. No pallor. Normal capillary refill. Psychiatric: Normal mood. Normal affect. Const: Vital Signs, click to edit/add: Vital Signs - 24 hr 08/08/23 16:55 08/08/23 17:11 08/08/23 17:12 Temperature 100.1 F H Pulse Rate 116 H 111 H Pulse Rate [Pulse Oximeter] 118 H Pulse Rate [orthos tatic lying] Pulse Rate [orthos tatic sitting] Pulse Rate [orthos tatic standing] Respiratory Rate 20 Blood Pressure 100/55 L Blood Pressure [Ri ght Upper Arm] 92/58 L Blood Pressure [or thostatic lying] Blood Pressure [or thostatic sitting] Blood Pressure [or thostatic standing ] Pulse Oximetry 98 100 100 Oxygen Delivery Me thod Room Air 08/08/23 17:15 08/08/23 17:30 08/08/23 17:36 Temperature Pulse Rate 113 H 115 H 114 H Pulse Rate [Pulse Oximeter] Pulse Rate [orthos tatic lying] Pulse Rate [orthos tatic sitting] Pulse Rate [orthos tatic standing] Respiratory Rate Blood Pressure 90/57 L Blood Pressure [Ri ght Upper Arm] Blood Pressure [or thostatic lying] Blood Pressure [or thostatic sitting] Blood Pressure [or thostatic standing ] Pulse Oximetry 99 100 [facility] 08[facility] 17:41 08/08/23 17:47 08/08/23 18:00 Temperature Pulse Rate 111 H 108 H Pulse Rate [Pulse Oximeter] Pulse Rate [orthos tatic lying] Pulse Rate [orthos tatic sitting] Pulse Rate [orthos tatic standing] Respiratory Rate Blood Pressure 101/85 Blood Pressure [Ri ght Upper Arm] Blood Pressure [or thostatic lying] Blood Pressure [or thostatic sitting] Blood Pressure [or thostatic standing ] Pulse Oximetry 100 100 [facility] 08/08/23 18:02 08/08/23 18:03 08/08/23 18:15 Temperature Pulse Rate 110 H 107 H 109 H Pulse Rate [Pulse Oximeter] Pulse Rate [orthos tatic lying] Pulse Rate [orthos tatic sitting] Pulse Rate [orthos tatic standing] Respiratory Rate Blood Pressure 99/60 Blood Pressure [Ri ght Upper Arm] Blood Pressure [or thostatic lying] Blood Pressure [or thostatic sitting] Blood Pressure [or thostatic standing ] Pulse Oximetry 100 100 100 [facility] 08/08/23 18:29 08/08/23 18:30 08/08/23 18:32 Temperature Pulse Rate 112 H 112 H 111 H Pulse Rate [Pulse Oximeter] Pulse Rate [orthos tatic lying] Pulse Rate [orthos tatic sitting] Pulse Rate [orthos tatic standing] Respiratory Rate Blood Pressure 99/59 L 91/55 L Blood Pressure [Ri ght Upper Arm] Blood Pressure [or thostatic lying] Blood Pressure [or thostatic sitting] Blood Pressure [or thostatic standing ] Pulse Oximetry 100 100 100 [facility] 08/08/23 18:40 08/08/23 18:45 08/08/23 18:58 Temperature Pulse Rate 120 H 112 H Pulse Rate [Pulse Oximeter] Pulse Rate [orthos tatic lying] 112 H Pulse Rate [orthos tatic sitting] 112 H Pulse Rate [orthos tatic standing] 115 H Respiratory Rate Blood Pressure 96/58 L 97/58 L Blood Pressure [Ri ght Upper Arm] Blood Pressure [or thostatic lying] 91/55 L Blood Pressure [or thostatic sitting] 85/68 L Blood Pressure [or thostatic standing ] 96/58 L Pulse Oximetry 99 100 Oxygen Delivery Me thod 08/08/23 18:59 08/08/23 19:00 08/08/23 19:15 Temperature Pulse Rate 112 H 115 H 105 H Pulse Rate [Pulse Oximeter] Pulse Rate [orthos tatic lying] Pulse Rate [orthos tatic sitting] Pulse Rate [orthos tatic standing] Respiratory Rate Blood Pressure Blood Pressure [Ri ght Upper Arm] Blood Pressure [or thostatic lying] Blood Pressure [or thostatic sitting] Blood Pressure [or thostatic standing ] Pulse Oximetry 100 99 99 [facility] 08/08/23 19:38 08/08/23 19:39 08/08/23 19:45 Temperature Pulse Rate 112 H 111 H 104 H Pulse Rate [Pulse Oximeter] Pulse Rate [orthos tatic lying] Pulse Rate [orthos tatic sitting] Pulse Rate [orthos tatic standing] Respiratory Rate Blood Pressure 105/53 L Blood Pressure [Ri ght Upper Arm] Blood Pressure [or thostatic lying] Blood Pressure [or thostatic sitting] Blood Pressure [or thostatic standing ] Pulse Oximetry 99 100 99 [facility] 08/08/23 19:55 08/08/23 20:00 08/08/23 20:02 Temperature 100.2 F H Pulse Rate 102 H 103 H Pulse Rate [Pulse Oximeter] Pulse Rate [orthos tatic lying] Pulse Rate [orthos tatic sitting] Pulse Rate [orthos tatic standing] Respiratory Rate Blood Pressure 96/58 L Blood Pressure [Ri ght Upper Arm] Blood Pressure [or thostatic lying] Blood Pressure [or thostatic sitting] Blood Pressure [or thostatic standing ] Pulse Oximetry 98 99 Oxygen Delivery Me od 08/08/23 20:15 08/08/23 20:30 08/08/23 20:32 Temperature Pulse Rate 99 93 98 Pulse Rate [Pulse Oximeter] Pulse Rate [orthos tatic lying] Pulse Rate [orthos tatic sitting] Pulse Rate [orthos tatic standing] Respiratory Rate Blood Pressure 97/56 L Blood Pressure [Ri ght Upper Arm] Blood Pressure [or thostatic lying] Blood Pressure [or thostatic sitting] Blood Pressure [or thostatic standing ] Pulse Oximetry 99 98 98 Oxygen Delivery Me thod 08/08/23 20:33 08/08/23 20:45 08/08/23 21:00 Temperature Pulse Rate 96 92 101 H Pulse Rate [Pulse Oximeter] Pulse Rate [orthos tatic lying] Pulse Rate [orthos tatic sitting] Pulse Rate [orthos tatic standing] Respiratory Rate Blood Pressure Blood Pressure [Ri ght Upper Arm] Blood Pressure [or thostatic lying] Blood Pressure [or thostatic sitting] Blood Pressure [or thostatic standing ] Pulse Oximetry 98 98 100 Oxygen Delivery Me thod 08/08/23 21:03 08/08/23 21:32 Temperature Pulse Rate 92 Pulse Rate [Pulse Oximeter] Pulse Rate [orthos tatic lying] Pulse Rate [orthos tatic sitting] Pulse Rate [orthos tatic standing] Respiratory Rate Blood Pressure 93/45 L 97/64 Blood Pressure [Ri ght Upper Arm] Blood Pressure [or thostatic lying] Blood Pressure [or thostatic sitting] Blood Pressure [or thostatic standing ] Pulse Oximetry 98 Oxygen Delivery Me thod Course Course ED Course: Multiple bedside rechecks during initial evaluation and stabilization Reevaluation(s) Reevaluation #1: Recheck-blood pressure still normal. 1 L of saline almost in. Mental status still normal. Updated patient Reevaluation #2: Multiple rechecks. Reevaluation #3: Recheck-conversation with [facility]. Agreed for plan to transfer. They do of 1 bed available and will call back when bed assignment is ready. Recheck-bed assigned. At this point we cannot transfer by EMS because we only have 1 ring get our service area. Patient will be boarding here. Anticipate EMS will be available by about 11:00 p.m.. Additional Reevaluation(s): Recheck-at about 10 30 I was notified the patient's blood pressure had drifted down to about 82/51. Map 61. Patient is otherwise asymptomatic. She is feeling a bit tired because the late hour but no dizziness, shortness of breath, chest pain, confusion, abdominal pain, or vomiting. She had arteries received 2 L of crystalloid with normalization in her lactate. 1 L lactated Ringer's ordered. I recheck the patient at the bedside. Other than hypotension she was asymptomatic. Still good mentation. Normal cap refill and skin perfusion. Recheck-EMS arrived in his loading for transport. Patient is still hypotensive but blood pressure is trending up now 89/56. Mental status still normal. Skin is pink, warm, well perfused She has received about 500 mils of her 3 L of crystalloid. Will continue with IV fluid bolus. Anticipate blood pressure should normalize with that. Discussed with paramedics that if she remains hypotensive or blood pressure drops lower, it would be reasonable start Levophed. They have this available on the rig. I also recommended that they continue with IV crystalloid supplementation. Administer a 1000 mL of saline bolus, if still hypotensive after lactated Ringer's bolus is completed Consultations Consultation #1: Update-I was notified by phone from EMS in route the patient was still hypotensive at nearing completion of her L of LR. They intend to start Levophed. I updated the receiving facility at [facility]. They will re route the patient to the ER (rather than the oncology floor) for evaluation to determine ultimate disposition. Vital Signs Vital signs: Initial Vital Signs Temperature 100.1 F H 08/08/23 16:55 Temperature Source Temporal Artery Scan 08/08/23 16:55 Pulse Rate 118 H 08/08/23 16:55 Pulse Rhythm Regular 08/08/23 16:55 Respiratory Rate 20 08/08/23 16:55 Blood Pressure 92/58 L 08/08/23 16:55 Blood Pressure Mean 69 L 08/08/23 16:55 Blood Pressure Position Supine 08/08/23 16:55 Pulse Oximetry 98 08/08/23 16:55 Oxygen Delivery Method Room Air 08/08/23 16:55 Vital Signs Temperature 100.1 F H 08/08/23 16:55 Pulse Rate 118 H 08/08/23 16:55 Respiratory Rate 20 08/08/23 16:55 Blood Pressure 92/58 L 08/08/23 16:55 Pulse Oximetry 98 08/08/23 16:55 Oxygen Delivery Method Room Air 08/08/23 16:55 Temperature 100.2 F H 08/08/23 19:55 Pulse Rate 92 08/08/23 21:03 Respiratory Rate 20 08/08/23 16:55 Blood Pressure 97/64 08/08/23 21:32 Pulse Oximetry 98 08/08/23 21:03 Oxygen Delivery Method Room Air 08/08/23 16:55 Medications Administered Medications: Discontinued Medications Generic Name Dose Route Start Last Admin Trade Name Freq PRN Reason Stop Dose Admin Hydrocortisone Sodium Succinate 100 mg 08/08/23 17:10 08/08/23 17:25 Hydrocortisone Sod Succinate 50 Mg/Ml Inj IVP 08/08/23 17:11 100 mg ONCE ONE Administration Sodium Chloride 1,000 mls @ 1,000 mls/hr 08/08/23 17:15 08/08/23 18:35 0.9 % Sodium Chloride 1000 Ml IV 08/08/23 18:14 Infused .Q1H ELIZABETH Infusion Piperacillin Sod/Tazobactam 100 mls @ 200 mls/hr 08/08/23 19:50 08/08/23 20:58 Sod 4.5 gm/ Sodium Chloride IVPB 08/08/23 19:51 Infused ONCE ONE Infusion Vancomycin HCl 1,500 mg/ 515 mls @ 257.5 mls/hr 08/08/23 20:41 08/08/23 21:16 Sodium Chloride IVPB 08/08/23 20:42 257.5 mls/hr ONCE ONE Administration Protocol Ibuprofen 600 mg 08/08/23 19:43 08/08/23 19:55 Ibuprofen 600 Mg Tablet PO 08/08/23 19:44 600 mg ONCE ONE Administration Lactated Ringer's 1,000 ml 08/08/23 18:37 08/08/23 19:01 Lactated Ringers 1000 Ml IV 08/08/23 18:38 1,000 ml ONCE ONE Administration Lactated Ringer's 1,000 ml 08/08/23 22:37 08/08/23 22:42 Lactated Ringers 1000 Ml IV 08/08/23 22:38 1,000 ml ONCE ONE Administration Ondansetron HCl 4 mg 08/08/23 17:10 08/08/23 17:25 Ondansetron 2 Mg/Ml Inj IVP 08/08/23 17:11 4 mg ONCE ONE Administration Medical Decision Making MDM Narrative Medical decision making narrative: This is a very pleasant 48-year-old female with metastatic melanoma currently on oral chemotherapy an oral steroids. She is brought to the ER today by EMS after she had a witnessed syncopal event at a store this afternoon, with her daughter. In terms of the syncope, broad differential is considered. Strongly suspect that this is probably orthostatic and hypovolemic syncope. She has had nausea and vomiting related to her chemo meds and in particular has not been able to take any food or any water at all today. EKG is obtained and shows sinus tachycardia but no other arrhythmogenic abnormality such as prolonged QT, Brugada syndrome. She did not have any antecedent chest pain to suggest ACS, PE. No hypoxia. No shortness of breath. No antecedent headache to suggest subarachnoid hemorrhage. No focal deficits to suggest stroke. No witnessed seizure or postictal spell. Troponin negative. No ischemia on EKG. She is on long-term Decadron as part of her chemo regimen. Hydrocortisone 100 mg IV ordered with initial low blood pressure report from EMS. She is also febrile with a temperature 100.1? at home and a fever last night. Workup for fevers also undertaken. She is on long-term steroids with her chemo also consider possible adrenal insufficiency leading to low blood pressure and syncope. Stress dose hydrocortisone administered. Sodium and potassium normal. Kidney function normal. Consider infectious etiology for fever. Blood cultures pending. She is tachycardic but only has a low-grade fever. Overall she clinically looks good and has normal mental status, good peripheral perfusion, and does not look ?toxic. ? Blood pressure was hypotensive per paramedics but normal here in the ER even before IV fluids. Nonetheless, with fever, hypotension in a patient on chemo and steroids, infection and sepsis is considered. After IV fluids blood pressure is up to 99/60. Venous lactic is only mildly abnormal at 2.2. UA negative for infection . Chest x-ray negative for pneumonia by my read. CT abdomen pelvis negative for any clear inflammatory changes or intra-abdominal sepsis. No clear evidence for cholangitis on CT. She is not actually having any right upper quadrant pain. Initially no clear evidence for septic shock. Total white count normal at 7.7. Differential shows 89% neutrophils, which could suggest possible bacterial infection. Procalcitonin is markedly elevated. Empiric antibiotics with Zosyn and vancomycin administered. After 2 L of IV crystalloid, blood pressure was normal in the high 90s over 50s and heart rate came down from about 115 to about 91-93, sinus on the monitor. Repeat lactic acid after 2 L IV fluid improved to normal-1.2. After initial disposition had been determined we were awaiting transport patient did have recurrent hypotension. Additional IV fluids ordered. She is not having any cough but with current community prevalence we did screen for COVID, influenza, and RSV by PCR in testing is negative. Chest x-ray negative by my read Labs show markedly abnormal LFTs with alk-phos over 500, AST 300, ALT 183. Total bilirubin 2.8. She is not having any abdominal pain right upper quadrant pain. Previous LFTs drawn at [facility] recently were essentially normal on 07/04. Discussed the patient's presentation and LFTs with medical oncology from [facility], Dr. Yee. At this point would need to rule out cholangitis. No obvious gallstones or biliary tree dilatation on CT scan. Patient will be transferred to [facility] in [place] for further workup. They have a bed available tonight. Oncology agrees with starting empiric antibiotics, stress dose steroids which we have already given. Lab Data Labs: Lab Results 08/08/23 08/08/23 08/08/23 Range/Units 16:52 16:52 17:15 WBC 7.76 (4.50-11.00) K/uL RBC 3.52 L (4.00-5.20) m/uL Hgb 11.2 L (12.0-16.0) gm/dL Hct 34.4 (33.0-51.0) % MCV 98 (80-100) fL MCH 32 (26-34) pg MCHC 33 (32-36) gm/dL RDW Coeff of Zac 13.8 (11.5-15.5) % Plt Count 230 (140-440) K/uL Neut % (Auto) 89.2 H (42.0-72.0) % Lymph % (Auto) 7.2 L (20-44) % [place] % (Auto) 2.6 (0.0-11.0) % Eos % (Auto) 0.0 (0.0-7.0) % Baso % (Auto) 0.4 (0.0-3.0) % Neut # (Auto) 6.90 (1.7-7.0) K/uL Lymph # (Auto) 0.60 L (0.90-2.90) K/uL [place] # (Auto) 0.20 (0.00-0.90) K/UL Eos # (Auto) 0.00 (0.00-0.50) K/uL Baso # (Auto) 0.03 (0.00-0.30) K/uL Abs Immat Gran (auto) 0.05 (0.00-0.30) K/uL Imm/Tot Granulo (auto) 0.6 % VBG pH 7.374 (7.32-7.43) VBG pCO2 41 (40-50) mmHG VBG pO2 26.0 (25-47) mmHG VBG HCO3 24 (21-28) mmol/L Sodium 131 L (135-149) mmol/L Potassium 3.6 (3.6-5.1) mmol/L Chloride 97 (96-114) mmol/L Carbon Dioxide 23 (20-32) mmol/L Anion Gap 11 (7-15) mEq/L BUN 21 (5-24) mg/dL Creatinine 1.5 (0.5-1.5) mg/dL Estimated Creat Clear 42.17 Estimated GFR 43 ml/min Glucose 109 (60-115) mg/dL Lactate 2.2 H (0.5-1.9) mmol/L Calcium 8.8 (8.4-10.6) mg/dL Total Bilirubin 2.8 H (0.1-1.5) mg/dL AST 313 H (12-35) U/L ALT 183 H (4-35) U/L Alkaline Phosphatase 516 H (40-150) U/L Troponin I < 0.01 L Cancelled (0.01-0.04) ng/mL Total Protein 7.7 (6.0-8.3) g/dL Albumin 4.0 (3.3-5.0) g/dL Procalcitonin > 100.00 H (<0.50) ng/mL Urine Color (Yellow) Urine Appearance (Clear) Urine pH (5.0-8.5) Ur Specific [place] (1.000-1.030) Urine Protein (Negative) Urine Glucose (UA) (Negative) Urine Ketones (Negative) Urine Blood (Negative) Urine Nitrite (Negative) Urine Bilirubin (Negative) Urine Urobilinogen (0.2-1.0) Ur Leukocyte Esterase (Negative) Urine RBC (0-2) Urine WBC (0-5) Ur Squamous Epith Cells (None-Few) Urine Bacteria (None) SARS-CoV-2 (PCR) Negative SARS-CoV-2 (Negative) Influenza Type A (PCR) Negative PCR FLU A (Negative) Influenza Type B (PCR) Negative PCR FLU B (Negative) RSV (PCR) Negative PCR RSV (Negative) Lab Acknowledgement 08/08/23 08/08/23 08/08/23 Range/Units 19:50 20:18 Unknown WBC (4.50-11.00) K/uL RBC (4.00-5.20) m/uL Hgb (12.0-16.0) gm/dL Hct (33.0-51.0) % MCV (80-100) fL MCH (26-34) pg MCHC (32-36) gm/dL RDW Coeff of Zac (11.5-15.5) % Plt Count (140-440) K/uL Neut % (Auto) (42.0-72.0) % Lymph % (Auto) (20-44) % [place] % (Auto) (0.0-11.0) % Eos % (Auto) (0.0-7.0) % Baso % (Auto) (0.0-3.0) % Neut # (Auto) (1.7-7.0) K/uL Lymph # (Auto) (0.90-2.90) K/uL [place] # (Auto) (0.00-0.90) K/UL Eos # (Auto) (0.00-0.50) K/uL Baso # (Auto) (0.00-0.30) K/uL Abs Immat Gran (auto) (0.00-0.30) K/uL Imm/Tot Granulo (auto) % VBG pH (7.32-7.43) VBG pCO2 (40-50) mmHG VBG pO2 (25-47) mmHG VBG HCO3 (21-28) mmol/L Sodium (135-149) mmol/L Potassium (3.6-5.1) mmol/L Chloride (96-114) mmol/L Carbon Dioxide (20-32) mmol/L Anion Gap (7-15) mEq/L BUN (5-24) mg/dL Creatinine (0.5-1.5) mg/dL Estimated Creat Clear Estimated GFR ml/min Glucose (60-115) mg/dL Lactate 1.2 (0.5-1.9) mmol/L Calcium (8.4-10.6) mg/dL Total Bilirubin (0.1-1.5) mg/dL AST (12-35) U/L ALT (4-35) U/L Alkaline Phosphatase (40-150) U/L Troponin I (0.01-0.04) ng/mL Total Protein (6.0-8.3) g/dL Albumin (3.3-5.0) g/dL Procalcitonin (<0.50) ng/mL Urine Color Yellow (Yellow) Urine Appearance Cloudy A (Clear) Urine pH 5.5 (5.0-8.5) Ur Specific [place] 1.010 (1.000-1.030) Urine Protein 1+ A (Negative) Urine Glucose (UA) Negative (Negative) Urine Ketones 1+ A (Negative) Urine Blood Trace-intact A (Negative) Urine Nitrite Negative (Negative) Urine Bilirubin Negative (Negative) Urine Urobilinogen 0.2 (0.2-1.0) Ur Leukocyte Esterase Negative (Negative) Urine RBC 0-2 (0-2) Urine WBC 0-2 (0-5) Ur Squamous Epith Cells Few (None-Few) Urine Bacteria Few A (None) SARS-CoV-2 (PCR) (Negative) Influenza Type A (PCR) (Negative) Influenza Type B (PCR) (Negative) RSV (PCR) (Negative) Lab Acknowledgement Test Added Imaging Data Chest x-ray: My impression: No acute infiltrate. No pleural effusion. Normal mediastinum. No CHF. No pneumothorax. by my read. CT scan - abdomen: Attestation: I have reviewed the pertinent imaging results. Radiologist's impression: IMPRESSION: 1. no acute intra-abdominal process identified. 2. Right lower lobe 2.1 cm nodule, suspicious for metastatic disease. 3. Numerous lytic lesion sin the visualized bones, most consistent with metastases. 4. Left hepatic lobe, well marginated hypodensity, appears benign, although without prior comparison, metastatic disease not entirely excluded. 5. Mildly prominent upper abdominal lymph nodes, suspicious for metastatic involvement given history of malignancy. 6. Left adnexal multiple cysts and probable fibroid uterus. This can be better evaluated with outpatient, non-emergent pelvic ultrasound. ECG Data Attestation: I personally reviewed and interpreted this ECG as follows: Interpretation: Sinus tachycardia. Rate 115. IN 134 QRS axis normal axis. ST segment/T wave: Nonspecific T-wave flattening in ST wave changes throughout. No acute ST segment elevation or depression. QTc: 431 Discharge Plan Discharge Clinical Impression: Acute dehydration, Metastatic melanoma, Abnormal LFTs, Syncope, Sepsis, Acute hypotension Patient Disposition: [facility] Prescriptions: No Action trazodone 50 mg tablet 100 mg PO QPM PRN ondansetron HCl 8 mg tablet 8 mg PO Q8H PRN (Reason: nausea/vomiting) dexamethasone 1 mg tablet 1 mg PO BID hydroxyzine HCl 25 mg tablet 25 - 50 mg PO QPM PRN (Reason: anxiety) Tafinlar 75 mg capsule 150 mg PO BID Mekinist 2 mg tablet 2 mg PO DAILY lisinopril-hydrochlorothiazide 10-12.5 mg tablet 1 tab PO DAILY diazepam [Valium] 5 mg tablet 5 mg PO ONCE Qty: 2 0RF Rx Instructions: Take 1 tablet a half hour prior to MRI. May repeat x1. Patient will need tow car driver to/from MRI. oxycodone 5 mg tablet 5 mg PO Q6H PRN (Reason: pain) Qty: 10 0RF Stand Alone Forms: [employer] Info Instructions
[2023-08-08 17:18] LABS: HCO3 VBG 24 mmol/L (21-28); Lactate* 2.2 mmol/L (0.5-1.9); PCO2 VBG 41 mmHG (40-50); pH VBG 7.374 (7.32-7.43)
[2023-08-08 17:20] LABS: Basophils Absolute Auto 0.03 K/uL (0.00-0.30); Basophils Percent Auto 0.4 % (0.0-3.0); Hematocrit 34.4 % (33.0-51.0); Hemoglobin* 11.2 gm/dL (12.0-16.0); Immature Granulocytes Abs Auto 0.05 K/uL (0.00-0.30); Immature Granulocytes Pct Auto 0.6 %; Lymphocytes Percent Auto 7.2 % (20-44); Mean Corpuscular HGB Conc 33 gm/dL (32-36); Mean Corpuscular Hemoglobin 32 pg (26-34); Mean Corpuscular Volume 98 fL (80-100); Monocytes Percent Auto 2.6 % (0.0-11.0); Neutrophils Percent Auto 89.2 % (42.0-72.0); Platelet Count* 230 K/uL (140-440); RDW Coefficient of Variation % 13.8 % (11.5-15.5); Red Blood Count 3.52 m/uL (4.00-5.20); White Blood Count* 7.76 K/uL (4.50-11.00)
[2023-08-08] MEDS: 0.9 % SODIUM CHLORIDE 1000 ml 1,000 ML IV (17:24)
[2023-08-08] MEDS: ONDANSETRON 2 MG/ML inj 4 MG IVP (17:25)
[2023-08-08] MEDS: HYDROCORTISONE SOD SUCCINATE 50 MG/ML inj 100 MG IVP (17:25)
[2023-08-08 17:32] LABS: Chloride* 97 mmol/L (96-114); Potassium* 3.6 mmol/L (3.6-5.1); Sodium* 131 mmol/L (135-149)
[2023-08-08 17:34] LABS: Creatinine* 1.5 mg/dL (0.5-1.5); Est. Creatinine Clearance* 42.17; Estimated Glomerular Filt Rate 43 ml/min
[2023-08-08 17:35] LABS: Alanine Aminotransferase* 183 U/L (4-35); Alkaline Phosphatase* 516 U/L (40-150); Anion Gap 11 mEq/L (7-15); Aspartate Amino Transferase* 313 U/L (12-35); Bilirubin Total* 2.8 mg/dL (0.1-1.5); Blood Urea Nitrogen* 21 mg/dL (5-24); Calcium* 8.8 mg/dL (8.4-10.6); Carbon Dioxide* 23 mmol/L (20-32); Glucose* 109 mg/dL (60-115); Total Protein* 7.7 g/dL (6.0-8.3)
[2023-08-08 17:41] LABS: Slide Review Reflex No
[2023-08-08 17:48] LABS: Troponin I* < 0.01 ng/mL (0.01-0.04)
--- NOTE | 2023-08-08 18:03 | CRLHL7_ITS ---
For Patients: As a result of the Century Cures Act, medical imaging exams and procedure reports are released immediately into your electronic medical record. You may view this report before your referring provider. If you have questions, please contact your health care provider. INDICATION: Fever, abnormal LFTs, metastatic melanoma. TECHNIQUE: CT abdomen and pelvis acquired with 78 cc Isovue 370 IV contrast. COMPARISON: None. FINDINGS: Lower chest: 2.1 centimeter nodule in the right lower lobe. Liver: Indeterminate 1.8 centimeter hypodensity in the left hepatic lobe with well-defined margins. Otherwise, no suspicious hepatic lesions identified. Gallbladder and bile ducts: Unremarkable. No radiopaque stones or inflammation. No biliary dilatation. Pancreas: Unremarkable. No mass or inflammation. Spleen: Unremarkable. Normal in size. No masses. Adrenal glands: Unremarkable. No nodules. Kidneys: Unremarkable. No suspicious masses, stones, or hydronephrosis. GI tract: Unremarkable. Normal in caliber. No sign of mass or inflammation. Normal appendix. Vasculature: Abdominal aorta is normal in caliber. Mesenteric arteries are patent. Lymph nodes: Rounded, mildly prominent upper abdominal lymph nodes. Peritoneum/Abdominal Wall: Unremarkable. No sign of mass or infiltration. No free air or significant free fluid. Pelvis: Multiple cysts in the left adnexa. Probable fibroid uterus. Bladder is unremarkable. Bones: Multiple lytic lesions noted throughout the visualized bones including the right proximal femur, bilateral iliac bones, sacrum and visualized thoracolumbar spine. IMPRESSION: 1. no acute intra-abdominal process identified. 2. Right lower lobe 2.1 cm nodule, suspicious for metastatic disease. 3. Numerous lytic lesion sin the visualized bones, most consistent with metastases. 4. Left hepatic lobe, well marginated hypodensity, appears benign, although without prior comparison, metastatic disease not entirely excluded. 5. Mildly prominent upper abdominal lymph nodes, suspicious for metastatic involvement given history of malignancy. 6. Left adnexal multiple cysts and probable fibroid uterus. This can be better evaluated with outpatient, non-emergent pelvic ultrasound. Please note that all CT scans at this facility use dose modulation, iterative reconstruction, and/or weight-based dosing when appropriate to reduce radiation dose to as low as reasonably achievable. Dictated by Angie Ring MD @ 08/08/2023 7:25:16 PM (Electronically Signed)
--- NOTE | 2023-08-08 18:03 | XR_ITS ---
Patient: BRI JUNIOR Facility:?[facility] Patient ID:?[id number] Site Patient ID:?[id number]. Site :?[id number] Study:?XRay-Chest PORTABLE-08/08/2023 6:11:28 PM Ordering Physician:Rosario Ortega Final Report: INDICATION: Fever TECHNIQUE: Chest 1 view. Permanently recorded images are archived. COMPARISON: CT abdomen and pelvis from the same day FINDINGS: Cardiovascular and mediastinum: Heart size and vasculature are normal in caliber and appearance. Lungs and pleural spaces: Known right lower lobe nodule, better seen on the same day CT. No focal consolidation. No pleural effusion or pneumothorax. Bones and soft tissues: Unremarkable for age. IMPRESSION: No evidence of an acute pulmonary process. Dictated by Jordan Roblero MD @ 08/08/2023 7:53:02 PM Signed by:?Jordan Roblero MD @08/08/2023 7:53:02 PM (Electronic Signature)
--- OUTSIDE RECORDS SUMMARY | 2023-08-08 18:03 | XMS_ITS | Encounter Summary ---
Author Name Unknown Organization [facility] Address [address] [place] [address] Care Team Providers Care Master Chef Name Role Phone Elsewhere, Pcp Primary Care Provider Unavailabl e Encounter Details Date Type Department Care Team (Late st Contact Info) Description 07/17/2023 12:10 AM FACE BURLER Ancillary Procedure Department of Dermatology Social History Tobacco Use Types Packs/Day Years Used Date Smoking Tobacco: Never Passive Smoke Exposure: Never Smokeless Tobacco: Never Alcohol Use Standard Drinks/Week Comments Not Currently 6 (1 standard drink = 0.6 oz pur e alcohol) Occasional [facility] Utilities Answer Date Recorded In the past 12 months has [employer] electric, gas, oil, or water company threatened to shut off services in your home? No 07/10/2023 Exercise Vital Sign Answer Date Recorde d On average, how many days pe r week do you engage in moderate to strenuous exercise (like a brisk walk)? 4 days 07/10/2023 On average, how many minutes do you engage in exercise at this level? 20 min 07/10/2023 Hunger Vital Sign Answer Date Recorded Within the past 12 months, y ou worried that your food would run out before you got the money to buy more. Never true 07/10/20 23 Within the past 12 months, t he food you bought just didn't last and you didn't have money to get more. Never true 07/10/2023 PRAPARE - Transportation Answer Date Re corded In the past 12 months, has l ack of transportation kept you from medical appointments or from getting medications? No 06/15 In the past 12 months, has l ack of transportation kept you from meetings, work, or from getting things needed for daily living? No 07/10/2023 Nutrition Answer Date Recorded Nutrition: EVOO Fat Source Unknown 07/10 On average, how many serving s of fruits and vegetables do you eat per day (serving size is equal to 1 cup or approximately the size of a tennis ball)? 3-5 07/10/2023 Dental Answer Date Recorded Dental: Regular Dentist Yes 07/10/20 Employment Answer Date Recorded Employment status Employed but not working due t o illness or injury 07/10/2023 Housing Stability Answer Date Recorded What is your living situation today? I have a [facility] place to live 07/10/2023 Sex and Gender Information Value Date Recorded Sex Assigned at Female 05/31/2023 8:26 AM FACE BURLER Gender Identity Female 05/31/2023 8:26 AM FACE BURLER Sexual Orientation Straight 05/31/2023 8: 26 AM FACE BURLER documented as of this encounter Plan of Treatment Upcoming Encounters Date Type Department Care Team (Late st Contact Info) Description 08/19/2023 6:40 AM FACE BURLER Appointment Department of Laboratory Medicine and Pathology, [place], [place] [address] [place] [address] Pérez Zuniga M.D., Ph.D. [address] [place] [phone] 08/19/2023 7:00 AM FACE BURLER Ancillary Procedure Department of Cardiovascular Medicine in [place], [place] [address] [place] [address] Pérez Zuniga M.D., Ph.D. [address] [place] [phone] 08/19/2023 9:00 AM FACE BURLER Appointment Department of Radiology, [facility] in [place], [place] [address] [place] [address] Pérez Zuniga M.D., Ph.D. [address] [place] [phone] 08/19/2023 3:40 PM FACE BURLER Office Visit Department of Oncology in [place], [place] [address] [place] [address] Zhane Granados, GAIL, C.N.P. [address] [place] [phone] 08/21/2023 10:15 AM FACE BURLER Clinical Support Department of Palliative Care in [place], [place] [address] [place] [phone] Serenity Kelsey P.A.-C. [address] [place] [phone] Meka Rinaldi D.N.P., R.N., [facility] documented as of this encounter Procedures Procedure Name Priority Date/Time Associated Diagnosis Comments DERMATOLOGY IMAGE EXAM Routine 07/17/2023 12:10 AM FACE BURLER documented in this encounter Results * Shoulder Dermoscopy-Dermatology Image Exam (07/17/2023 12:10 AM FACE BURLER) Narrative [facility] - 07/18/2023 7:21 AM FACE BURLER This order has been created and auto-finalized to support the import of images acquired without order. The clinical documentation to support these images can be found on the encounter that produced images. Provider Not In System IMG NON RAD IMAGI NG PROCEDURES IICO NA documented in this encounter Visit Diagnoses Not on filedocumented in this encounter Additional Health Concerns Infection Onset Date Last Indicated Resolved Time Protective Environment 06/04/2023 06/04/2023 documented as of this encounter Care Teams Master Chef Relationship Specialty Start Date End Date Elsewhere, Pcp PCP - General Family Medicine 06/17/23 documented as of this encounter
--- OUTSIDE RECORDS SUMMARY | 2023-08-08 18:03 | XMS_ITS | Referral Summary ---
Author Name Unknown Organization [facility] Address [address] [place] [id number] Care Team Providers Care Regular Senior Care Provider Name Role Phone Elsewhere, Pcp Primary Care Provider Unavailabl e Source Comments Patient records contain information from all sites at [facility]. For routine questions regarding patient records, call [phone] during business hours, M-F 8:00 AM - 5:00 PM Central Time. Record requests for emergency care only can be directed to [phone] at any time.[facility] Encounters Date Type Department Care Team Description 08/08/2023 Clinical Communication Department of Oncology in [place], [place] [address] [place] [phone] Cherelle Sanabria M.D. 08/06/2023 2:[address] [facility] Clinical Communication Virtual Review in [place], [place] [address] [place] [address] 08/04/2023 Specialty Pharmacy [facility] [address] [place] [phone] Demetrius Londono Jr., R.Ph. 07/29/2023 10:15 AM ANDROID PROGRAMMER Telemedicine Department of Palliative Care in [place], [place] [address] [place] [phone] Valentine Kelsey M.D., M.S. Melanoma Trunk (HCC) (Primary Dx); Secondary Malignant Neoplasm Bone (HCC); Pain Cancer Associated; Palliative Care 07/26/2023 1:15 PM ANDROID PROGRAMMER Telemedicine Department of Palliative Care in [address] [phone] Marija Olivas APRN, C.NSantoshP., M.S.N. Meka Rinaldi D.N.P., R.N., [facility] Palliative Care 07/17/2023 12:10 AM ANDROID PROGRAMMER Ancillary Procedure Department of Dermatology 07/17/2023 12:05 AM ANDROID PROGRAMMER Ancillary Procedure Department of Dermatology 07/17/2023 12:45 PM ANDROID PROGRAMMER Ancillary Procedure Department of Ophthalmology 07/17/2023 Ancillary Procedure Department of Ophthalmology 07/17/2023 11:45 AM ANDROID PROGRAMMER Office Visit Department of Ophthalmology in [address] [phone] Wolfgang Larose M.D. Hemorrhage Retinal Bilateral (Primary Dx); Melanoma Trunk (HCC) 07/17/2023 10:40 AM ANDROID PROGRAMMER Ancillary Procedure Department of Ophthalmology in [address] [phone] Phi Palm M.D., Ph.D. 07/17/2023 11:30 AM ANDROID PROGRAMMER Ancillary Procedure Department of Ophthalmology in [address] [phone] Phi Plam M.D., Ph.D. Hemorrhage Retinal Bilateral 07/17/2023 10:00 AM ANDROID PROGRAMMER Procedure visit Department of Ophthalmology in [address] [phone] Phi Palm M.D., Ph.D. Suleiman Vargas Hemorrhage Retinal Bilateral 07/17/2023 4:15 PM ANDROID PROGRAMMER Comprehensive Visit Department of Dermatology in [address] [phone] Naida Mejia P.A.-C., M.SAnh Doshi M.D. Nevi Multiple (Primary Dx); Melanoma Trunk (HCC); Secondary Malignant Neoplasm Bone (HCC); Screening Examination Skin Cancer; Dermatoheliosis; Tumor Skin Uncertain Behavior 07/16/2023 Clinical Communication Department of Palliative Care in [place], [place] [address] [place] [phone] Meka Rinaldi D.N.P., R.N., [facility] 07/10/2023 Orders Only Department of Ophthalmology in [place], [place] [address] [place] [phone] Ani Bashir 07/05/2023 2:30 PM ANDROID PROGRAMMER Comprehensive Visit Department of Ophthalmology in [place], [place] [address] [place] [phone] Wolfgang Larose M.D. Hemorrhage Retinal Bilateral (Primary Dx) 07/05/2023 Clinical Communication Department of Oncology in [place], [place] [address] [place] [phone] Anahy Amezcua R.N., O.C.N. Sx - retinal hemorrhaging 07/04/2023 Clinical Communication Department of Ophthalmology in [place], [place] [address] [place] [phone] Provider, Unknown 07/04/2023 Clinical Communication Department of Palliative Care in [place], [place] [address] [place] [phone] Inés Wiley R.N. 07/04/2023 10:30 AM ANDROID PROGRAMMER Clinical Support Department of Palliative Care in [address] [phone] Valentine Kelsey M.D., M.S. Inés Wiley R.Makenzie. Melanoma Trunk (HCC); Nausea 07/04/2023 9:36 AM ANDROID PROGRAMMER - 07/04/2023 11:59 PM ANDROID PROGRAMMER Hospital Encounter Department of Laboratory Medicine and Pathology, [facility], in [place], [place] [address] [place] [phone] Pérez Zuniga M.D., Ph.D. Melanoma Trunk (HCC); Secondary Malignant Neoplasm Bone (HCC); Other [facility] Current Drug Therapy Discharge Disposition: Home or Self Care 07/04/2023 12:20 PM ANDROID PROGRAMMER Office Visit Department of Oncology in [place], [place] [address] [place] [phone] Pérez Zuniga M.D., Ph.D. Melanoma Trunk (HCC) (Primary Dx); Nausea 07/01/2023 Clinical Communication [facility] [address] [place] [address] Cherelle Brooks C.Ph.T. Redirect Prescriptions 07/01/2023 3:00 PM ANDROID PROGRAMMER Telemedicine Department of Palliative Care in [place], [place] [address] [place] [phone] Valentine Kelsey M.D., M.S. Melanoma Trunk (HCC) (Primary Dx); Nausea; Pain Cancer Associated; Palliative Care 06/24/2023 Clinical Communication Department of Palliative Care in [place], [place] [address] [place] [phone] Valentine Kelsey M.D., M.S. Rx Denial (XTAMPZA ER 9 MG CAPSULES) 06/21/2023 8:30 AM ANDROID PROGRAMMER Comprehensive Visit Department of Palliative Care in [place], [place] [address] [place] [phone] Pérez Zuniga M.D., Ph.D. Valentine Kelsey M.D., M.S. Rachelle Oliver, R.N. Melanoma Trunk (HCC); Secondary Malignant Neoplasm Bone (HCC) 06/20/2023 3:00 PM ANDROID PROGRAMMER Nurse Only Department of Oncology in [place], [place] [address] [place] [phone] Laura Dalal M.D. Akosua Liz D.N.P., R.N. 06/20/2023 11:46 AM ANDROID PROGRAMMER - 06/20/2023 12:06 PM ANDROID PROGRAMMER Hospital Encounter Department of Laboratory Medicine and Pathology, [facility], in [place], [place] [address] [place] [phone] Pérez Zuniga M.D., Ph.D. Melanoma Trunk (HCC); Secondary Malignant Neoplasm Bone (HCC) Discharge Disposition: Home or Self Care 06/20/2023 12:07 PM ANDROID PROGRAMMER - 06/20/2023 11:59 PM ANDROID PROGRAMMER Hospital Encounter Department of Cardiovascular Diseases in [place], [place] [address] [place] [phone] Pérez Zuniga M.D., Ph.D. Melanoma Trunk (HCC); Secondary Malignant Neoplasm Bone (HCC); Other Clay Stain Mixer Current Drug Therapy Discharge Disposition: Home or Self Care 06/20/2023 4:40 PM ANDROID PROGRAMMER Office Visit Department of Oncology in [place], [place] [address] [place] [phone] Pérez Zuniga M.D., Ph.D. Melanoma Trunk (HCC) (Primary Dx); Secondary Malignant Neoplasm Bone (HCC); Other Clay Stain Mixer Current Drug Therapy 06/17/2023 7:00 AM ANDROID PROGRAMMER Clinical Communication Virtual Review in [place], [place] [address] [place] [address] Pre-visit Intake 06/10/2023 Clinical Communication Department of Oncology in [place], [place] [address] [place] [phone] Akosua Liz D.N.P., R.N. 06/05/2023 Clinical Communication [facility] [address] [place] [phone] Joanne Yoo C.Ph.T. Specialty Medication Delivery 06/05/2023 Specialty Pharmacy [facility] [address] [place] [phone] Yessi Patel, Pharm.D., R.Ph. Melanoma Trunk (HCC) (Primary Dx) 06/05/2023 Specialty Pharmacy [facility] [address] [place] [phone] Yessi Patel, Pharm.D., R.Ph. 06/05/2023 Clinical Communication Department of Oncology in [place], [place] [address] [place] [phone] Anahy Amezcua R.N., O.C.N. 06/04/2023 4:40 PM ANDROID PROGRAMMER Education Department of Oncology in [place], [place] [address] [place] [phone] Pérez Zuniga M.D., Ph.D. Anahy Amezcua R.N., O.C.N. Melanoma Trunk (HCC); Secondary Malignant Neoplasm Bone (HCC) 06/04/2023 Orders Only [facility] [address] [place] [phone] Joy Hernandez Pharm.D., R.Ph. 06/04/2023 7:35 AM ANDROID PROGRAMMER Ancillary Procedure Department of Radiology in [place], [place] [address] [place] [phone] Pérez Zuniga M.D., Ph.D. Melanoma Trunk (HCC); Secondary Malignant Neoplasm Bone (HCC) 06/04/2023 7:35 AM ANDROID PROGRAMMER Ancillary Procedure Department of Radiology in [place], [place] [address] [place] [phone] Pérez Zuniga M.D., Ph.D. Melanoma Trunk (HCC); Secondary Malignant Neoplasm Bone (HCC) 06/04/2023 2:20 PM ANDROID PROGRAMMER Comprehensive Visit Department of Oncology in [place], [place] [address] [place] [phone] Pérez Zuniga M.D., Ph.D. Melanoma Trunk (HCC) (Primary Dx); Secondary Malignant Neoplasm Bone (HCC); Other Clay Stain Mixer Current Drug Therapy 05/30/2023 1:00 PM ANDROID PROGRAMMER Lab RST RO LMP [address] [place] [phone] Naida Mejia P.A.-C., M.S. Melanoma Trunk (HCC); Secondary Malignant Neoplasm Bone (HCC) 05/29/2023 Clinical Communication Department of Oncology in [place], [place] [address] [place] [phone] Naida Mejia P.A.-C., M.S. Pre-visit Testing Orders 05/29/2023 2:15 PM ANDROID PROGRAMMER Admin Visit Department of Oncology in [place], [place] [address] [place] [phone] 05/29/2023 5:21 PM ANDROID PROGRAMMER - 05/29/2023 5:49 PM ANDROID PROGRAMMER Hospital Encounter Department of Laboratory Medicine and Pathology, [facility] in [place], [place] [address] [place] [phone] Naida Mejia P.A.-C., M.S. Melanoma Trunk (HCC); Secondary Malignant Neoplasm Bone (HCC) Discharge Disposition: Home or Self Care 05/29/2023 5:50 PM ANDROID PROGRAMMER - 05/29/2023 11:59 PM ANDROID PROGRAMMER [facility] [place] [place] [address] [place] [phone] Naida Mejia P.A.-C., M.S. Melanoma Trunk (HCC); Secondary Malignant Neoplasm Bone (HCC) Discharge Disposition: Home or Self Care 05/28/2023 Clinical Communication Department of Oncology in [address] [phone] Naida Mejia P.A.-C., M.S. Pre-visit Testing Orders (New Reg) 05/24/2023 7:55 AM ANDROID PROGRAMMER Lab RST RO LMP [address] [place] [phone] Naida Mejia P.A.-C., M.S. Melanoma Trunk (HCC); Secondary Malignant Neoplasm Bone (HCC) 05/23/2023 Clinical Communication Department of Oncology in [address] [phone] Naida Mejia P.A.-C., M.S. 05/23/2023 Clinical Communication Department of Oncology in [address] [phone] Provider, Unknown [facility] (Med Onc) 05/22/2023 Clinical Communication Department of Oncology in [address] [phone] Naida Mejia P.A.-C., M.S. 05/22/2023 Clinical Communication Department of Oncology in [place], [place] [address] [place] [phone] Prescheduling, Provider Pre-visit Intake (NEW REG ) 05/13/2023 11:59 PM CDT Hospital Encounter Department of Radiology, [facility] in [place], [place] [address] [place] [address], [place] [phone] Lacho Joshi M.D. Canceled (Patient: Request) Discharge Disposition: Home or Self Care from Last 3 Months Allergies No known active allergies Medications Medication Sig Dispensed Refills Start Date End Date Status lisinopril-hydr oCHLOROthiazide (PRINZIDE,ZESTO RETIC) 10-12.5 mg per tablet Take 1 tablet by mouth every morning. 0 3 Active hydrOXYzine (ATARAX) 25 mg tablet Take 25-50 mg by mouth at bedtime as needed. 0 3 Active acetaminophen (TYLENOL) 500 mg tablet Take 500-1,000 mg by mouth every 6 (six) hours as needed. 0 Active omeprazole (PriLOSEC OTC) [address] tablet Take 20 mg by mouth every morning before breakfast. 0 3 Active polyethylene glycol (MIRALAX) 17 gram powder packet Take 17 g by mouth daily. Dissolve each 17 g dose in 240 mLs (8 ounces) of beverage. 0 Active sennosides (senna) 8.6 mg tablet Take 8.6 mg by mouth daily. 0 Active naloxone (NARCAN) 4 mg/actuation nasal spray Administer 1 spray (4 mg total) into one nostril as needed for reversal. Use 1 spray in 1 nostril. Repeat with second device in other nostril after 2-3 minutes if no or minimal response. 2 each 0 3 Active trametinib dimethyl sulfoxide (MEKINIST) 2 mg tablet Take 1 tablet (2 mg total) by mouth daily. Take at least 1 hour before or 2 hours after a meal. Keep refrigerated in original bottle. 30 tablet 2 3 Active dabrafenib (TAFINLAR) 75 mg capsule Take 2 capsules (150 mg total) by mouth 2 (two) times a day. Take at least 1 hour before or 2 hours after a meal. Do not open, crush, or break. 120 capsule 2 3 Active dexAMETHasone (DECADRON) 1 mg tablet Take 1 tablet (1 mg total) by mouth every 12 (twelve) hours. 60 tablet 3 3 11/01/19 24 Active oxyCODONE (ROXICODONE) 5 mg immediate release tabletIndicatio ns:Chronic Pain/Nonacute Pain Take 1 tablet (5 mg total) by mouth every 4 (four) hours as needed for pain (pain) Indication: Chronic Pain/Nonacute Pain. 60 tablet 0 4 Active ondansetron (ZOFRAN) 8 mg tablet Take 1 tablet (8 mg total) by mouth every 8 (eight) hours as needed for nausea or vomiting. 30 tablet 5 4 Active traZODone (DESYREL) 50 mg tablet 50 mg as needed. 0 4 Active oxyCODONE (ROXICODONE) 5 mg immediate release tabletIndicatio ns:Chronic Pain/Nonacute Pain Take 1-2 tablets (5-10 mg total) by mouth every 4 (four) hours as needed for pain Indication: Chronic Pain/Nonacute Pain. 80 tablet 0 3 07/21/19 24 ondansetron (ZOFRAN) 8 mg tablet Take 1 tablet (8 mg total) by mouth every 8 (eight) hours as needed for nausea or vomiting. 30 tablet 0 3 07/16/19 24 Discontinued(Reo rder) morphine (MS Contin) 15 mg ER tabletIndicatio ns:Chronic Pain/Nonacute Pain Take 1 tablet (15 mg total) by mouth every 12 (twelve) hours Indication: Chronic Pain/Nonacute Pain. 60 tablet 0 3 07/24/19 24 ondansetron (ZOFRAN) 8 mg tablet Take 1 tablet (8 mg total) by mouth every 8 (eight) hours as needed for nausea or vomiting. 30 tablet 0 4 07/29/19 24 Discontinued Hospital, Clinic, or Other Facility Administered Medication Ordered Dose Route Frequency Start Date End Date Status sodium chloride 0.9 % injection 3 mL 3 mL IV As needed 07/10/2023 Active fluorescein 100 mg/mL (10 %) injection 500 mg (AK-FLUOR/FLUORESCEIN) 500 mg IV Once 07/10/2023 07/17/2023 En ded Active Problems Problem Noted Date Diagnosed Date Melanoma Trunk 06/04/2023 Social History Tobacco Use Types Packs/Day Years Used Date Smoking Tobacco: Never Passive Smoke Exposure: Never Smokeless Tobacco: Never Tobacco Cessation:Counseling Given: Not Answered Alcohol Use Standard Drinks/Week Comments Not Currently 6 (1 standard drink = 0.6 oz pur e alcohol) Occasional [facility] Utilities Answer Date Recorded In the past 12 months has e electric, gas, oil, or water company threatened [...] money to buy more. Never true 07/10/20 Within the past 12 months, t he [...] your living situation today? I have a [facility] place to live 07/10/2023 Sex and Gender Information Value Date Recorded Sex Assigned at Female 05/31/2023 8:26 AM ANDROID PROGRAMMER Gender Identity Female 05/31/2023 8:26 AM ANDROID PROGRAMMER Sexual Orientation Straight 05/31/2023 8: 26 AM ANDROID PROGRAMMER Last Filed Vital Signs Vital Sign Reading Time Taken Comments Blood Pressure 102/69 06/21/2023 8:26 AM ANDROID PROGRAMMER Pulse 78 06/21/2023 8:26 AM ANDROID PROGRAMMER Temperature 36.8 ??C (98.2 ??F) 06/21/2023 8:26 AM CS T Respiratory Rate 16 06/20/2023 2:14 PM ANDROID PROGRAMMER Oxygen Saturation 100% 06/21/2023 8:26 AM ANDROID PROGRAMMER Inhaled Oxygen Concentration - - Weight 75 kg (165 lb 5.5 oz) 06/20/2023 2:14 PM ANDROID PROGRAMMER Height 160 cm (5' 2.99) 06/20/2023 2:14 PM ANDROID PROGRAMMER Body Mass Index 29.3 06/20/2023 2:14 PM ANDROID PROGRAMMER Plan of Treatment Upcoming Encounters Date Type Department Care Team (Late st Contact Info) Description 08/19/2023 6:40 AM ANDROID PROGRAMMER Appointment Department of Laboratory Medicine and Pathology, [facility] in [address] [phone] Pérez Zuniga M.D., Ph.D. [address] [place] [phone] 08/19/2023 7:00 AM ANDROID PROGRAMMER Ancillary Procedure Department of Cardiovascular Medicine in [address] [phone] Préez Zuniga M.D., Ph.D. [address] [place] [phone] 08/19/2023 9:00 AM ANDROID PROGRAMMER Appointment Department of Radiology, [facility] in [place], [place] [address] [place] [phone] Pérez Zuniga M.D., Ph.D. [address] [place] [phone] 08/19/2023 3:40 PM ANDROID PROGRAMMER Office Visit Department of Oncology in [place], [place] [address] [place] [phone] Zhane Granados APRN, C.N.P. [address] [place] [phone] 08/21/2023 10:15 AM ANDROID PROGRAMMER Clinical Support Department of Palliative Care in [place], [place] [address] [place] [phone] Serenity Kelsey P.A.-C. [address] [place] [phone] Meka Rinaldi D.N.P., R.N., [facility] Procedures Procedure Name Priority Date/Time Associated Diagnosis Comments DERMATOPATHOLOGY Routine 07/17/2023 4:41 PM ANDROID PROGRAMMER 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) Screening Examination Skin Cancer Dermatoheliosis Nevi Multiple ANGIOGRAPHY - OU - BOTH EYES Routine 07/17/2023 12:55 PM ANDROID PROGRAMMER Hemorrhage Retinal Bilateral OPHTHALMOLOGY IMAGE EXAM Routine 07/17/2023 12:45 PM ANDROID PROGRAMMER FUNDUS PHOTOS - OU - BOTH EYES Routine 07/17/2023 11:52 AM ANDROID PROGRAMMER Hemorrhage Retinal Bilateral DERMATOLOGY IMAGE EXAM Routine 4 12:10 AM ANDROID PROGRAMMER DERMATOLOGY IMAGE EXAM Routine 4 12:05 AM ANDROID PROGRAMMER OPHTHALMOLOGY IMAGE EXAM Routine 07/17/2023 12:00 AM ANDROID PROGRAMMER ECG Routine 07/04/2023 10:08 AM ANDROID PROGRAMMER 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) Other [facility] Current Drug Therapy CBC WITH DIFFERENTIAL, B Routine 07/04/2023 9:50 AM ANDROID PROGRAMMER 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) Other Clay Stain Mixer Current Drug Therapy THYROID FUNCTION CASCADE, S Routine 07/04/2023 9:49 AM ANDROID PROGRAMMER 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) Other [facility] Current Drug Therapy COMPREHENSIVE METABOLIC PANEL, S/P Routine 07/04/2023 9:49 AM ANDROID PROGRAMMER 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) Other Clay Stain Mixer Current Drug Therapy (TTE) 2D ECHO DOPPLER COLOR Routine 06/20/2023 1:28 PM ANDROID PROGRAMMER 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) Other [facility] Current Drug Therapy TYPE AND SCREEN Routine 06/20/2023 12:01 PM ANDROID PROGRAMMER 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) THYROID FUNCTION CASCADE, S Routine 06/20/2023 12:01 PM ANDROID PROGRAMMER 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) COMPREHENSIVE METABOLIC PANEL, S/P Routine 06/20/2023 12:01 PM ANDROID PROGRAMMER 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) CBC WITH DIFFERENTIAL, B Routine 06/20/2023 12:01 PM ANDROID PROGRAMMER 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) ECG Routine 06/04/2023 4:02 PM ANDROID PROGRAMMER 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) INTERPRETATION OF OUTSIDE NM PET SCAN RAD - Routine (most inpatients and all outpatients) 06/04/2023 7:56 AM ANDROID PROGRAMMER 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) INTERPRETATION OF OUTSIDE MR EXTREMITY RAD - Routine (most inpatients and all outpatients) 06/04/2023 7:54 AM ANDROID PROGRAMMER 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) MR BRAIN WITHOUT AND WITH IV CONTRAST RAD - Routine (most inpatients and all outpatients) 05/29/2023 7:09 PM ANDROID PROGRAMMER 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) MI T4 FREE Routine 05/29/2023 5:35 PM ANDROID PROGRAMMER THYROPEROXIDASE (TPO) ABS, S Routine 05/29/2023 5:35 PM ANDROID PROGRAMMER THYROID FUNCTION CASCADE, S Routine 05/29/2023 5:35 PM ANDROID PROGRAMMER 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) LACTATE DEHYDROGENASE (LD), S Routine 05/29/2023 5:35 PM ANDROID PROGRAMMER 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) COMPREHENSIVE METABOLIC PANEL, S/P Routine 05/29/2023 5:35 PM ANDROID PROGRAMMER 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) CBC WITH DIFFERENTIAL, B Routine 05/29/2023 5:35 PM ANDROID PROGRAMMER 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) OUTSIDE NM PET Routine 05/15/2023 11:00 AM CDT BRAF/KIT MUTATION ANALYSIS, TUMOR Routine 05/13/2023 8:27 AM CDT 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) PATHOLOGY REVIEW OF OUTSIDE MATERIAL Routine 05/13/2023 1:26 AM CDT 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) OUTSIDE DX CHEST Routine 05/09/2023 1:45 PM CDT OUTSIDE MR MSK Routine 05/08/2023 7:35 PM CDT from Last 3 Months Results * Dermatopathology (07/17/2023 4:41 PM ANDROID PROGRAMMER) 07/22/2023 6:51 AM ANDROID PROGRAMMER PDRM Report electronically signed by Catalina Martell M.D. 07/22/2023 6:51 AM ANDROID PROGRAMMER PDRM Gross Description Received in formalin labeled with the patient's name, medical record number, and right shoulder-anterio r is a 0.5 cm in diameter whiteskin punch biopsy excised to a depth 0.5 cm. Eccentrically located on the skin surface is a 0.4 x 0.3 cm pale hansen-hansen, pigmented lesionwith well-circumscrib ed borders. ??Specimen is bisected and submitted entirely in cassette A1. ??Grossed by AJElvin. 07/22/2023 6:51 AM ANDROID PROGRAMMER PDRM Interpretation FINAL DIAGNOSIS A. ??Right Shoulder - Anterior, Skin punch biopsy: Lentiginous compound nevus COMMENT Clinical note and photos reviewed. Diagnosis was made via digital imaging. A portion of the testing process was performed at [facility] site [id number]. 07/22/2023 6:51 AM ANDROID PROGRAMMER PDRM Skin (Right Shoulder - Anterior) 07/17/2023 4:40 PM ANDROID PROGRAMMER Anh Lee M.D. LAB PATH DERM OR DERABLES Performing Organization Address [facility] Co de Phone Number [facility] [address] [place] [address], [facility] PDRM [address] [place] [address] 200 [place] [address] * Fluorescein Angiography - OU - Both Eyes (07/17/2023 12:55 PM ANDROID PROGRAMMER) Narrative OPHTHALMOLOGY IMAGING EXAM - 07/17/2023 7:03 PM ANDROID PROGRAMMER Right Eye Dye used is fluorescein. Fluorescein dose given is normal. Left Eye Dye used is fluorescein. Fluorescein dose given is normal. Notes Interpretation in note Phi Palm M.D., Ph.D. OPHTH PHOTOGRA PHY Performing Organization Address [facility] Co de Phone Number OPHTHALMOLOGY IMAGING EXAM * [employer]-Ophthalmology Image Exam (07/17/2023 12:45 PM ANDROID PROGRAMMER) Only the most recent of2 resultswithin the time period is included. 07/17/2023 12:4 5 PM ANDROID PROGRAMMER Narrative IIMS - 07/17/2023 1:03 PM ANDROID PROGRAMMER This order has been created and auto-finalized to support the import of images acquired without order. The clinical documentation to support these images can be found on the encounter that produced images. Provider Not In System IMG NON RAD IMAGI NG PROCEDURES IIMS NA * Fundus Photos - OU - Both Eyes (07/17/2023 11:52 AM ANDROID PROGRAMMER) Narrative OPHTHALMOLOGY IMAGING EXAM - 07/17/2023 7:03 PM ANDROID PROGRAMMER Right Eye Field of view is standard view. Fundus photo type obtained is Color. Left Eye Field of view is standard view. Fundus photo type obtained is Color. Notes Interpretation in note Phi Palm M.D., Ph.D. OPHTH PHOTOGRA PHY Performing Organization Address [facility] de Phone Number OPHTHALMOLOGY IMAGING EXAM * Shoulder Dermoscopy-Dermatology Image Exam (07/17/2023 12:10 AM ANDROID PROGRAMMER) Only the most recent of2 resultswithin the time period is included. Narrative IIMS - 07/18/2023 7:21 AM ANDROID PROGRAMMER This order has been created and auto-finalized to support the import of images acquired without order. The clinical documentation to support these images can be found on the encounter that produced images. Provider Not In System IMG NON RAD IMAGI NG PROCEDURES Performing Organization Address [facility] de Phone Number IIMS NA * ECG 12 Lead (07/04/2023 10:08 AM ANDROID PROGRAMMER) Only the most recent of2 resultswithin the time period is included. Ventricular Rate ECG/Min 81 BPM MUSE MI Interval 136 ms MUSE QRSD Interval 82 ms MUSE QT Interval 384 ms MUSE QTC Interval 446 ms MUSE P [place] 46 degrees MUSE R [place] 60 degrees MUSE T Wave [place] 19 degrees MUSE 07/04/2023 10:0 8 AM ANDROID PROGRAMMER 07/04/2023 10:10 AM ANDROID PROGRAMMER Impressions MUSE - 07/04/2023 10:10 AM ANDROID PROGRAMMER Normal sinus rhythm Normal ECG When compared with ECG of 04-JUN-2023 16:02, No significant change was found Reviewed by BREANNA Bustamante Narrative Procedure Note Edmundo Sam M.D. - 07/04/2023 IMPRESSION: Normal sinus rhythm Normal ECG When compared with ECG of 04-JUN-2023 16:02, No significant change was found Reviewed by BREANNA Bustamante Pérez Zuniga M.D., Ph.D. ECG JOHN SIU MUSE NA * (ABNORMAL) CBC with Differential, Blood (07/04/2023 9:50 AM ANDROID PROGRAMMER) Only the most recent of3 resultswithin the time period is included. Hemoglobin 8.2(L) 11.6 - 15.0 g/dL 07/04/2023 10:56 AM ANDROID PROGRAMMER DHPM Hematocrit 26.3(L) 35.5 - 44.9 % 07/04/2023 10:56 AM ANDROID PROGRAMMER DHPM Erythrocytes 2.62(L) 3.92 - 5.13 x10(12)/L 07/04/2023 10:56 AM ANDROID PROGRAMMER DHPM MCV 100.4(H) 78.2 - 97.9 fL 07/04/2023 10:56 AM ANDROID PROGRAMMER DHPM RBC Distrib Width 17.5(H) 12.2 - 16.1 % 07/04/2023 10:56 AM ANDROID PROGRAMMER DHPM Platelet Count 701(H) 157 - 371 x10(9)/L 07/04/2023 10:56 AM ANDROID PROGRAMMER DHPM Leukocytes 9.9(H) 3.4 - 9.6 x10(9)/L 07/04/2023 10:56 AM ANDROID PROGRAMMER DHPM Neutrophils 5.27 1.56 - 6.45 x10(9)/L 07/04/2023 10:56 AM ANDROID PROGRAMMER DHPM Lymphocytes 3.81(H) 0.95 - 3.07 x10(9)/L 07/04/2023 10:56 AM ANDROID PROGRAMMER DHPM Monocytes 0.63 0.26 - 0.81 x10(9)/L 07/04/2023 10:56 AM ANDROID PROGRAMMER DHPM Eosinophils 0.10 0.03 - 0.48 x10(9)/L 07/04/2023 10:56 AM ANDROID PROGRAMMER DHPM Basophils 0.12(H) 0.01 - 0.08 x10(9)/L 07/04/2023 10:56 AM ANDROID PROGRAMMER [facility] Blood (Blood, Venous) 07/04/2023 9:50 AM ANDROID PROGRAMMER 07/04/2023 10:11 AM ANDROID PROGRAMMER Pérez Zuniga M.D., Ph.D. LAB BLOO D ADD-ON Performing Organization Address [facility] Co de Phone Number [facility] [address] [place] [address], [place] [address] * Thyroid Function [place] (07/04/2023 9:49 AM ANDROID PROGRAMMER) Only the most recent of3 resultswithin the time period is included. TSH, Sensitive 2.3 0.3 - 4.2 mIU/L 07/04/2023 11:05 AM ANDROID PROGRAMMER DT Blood (Blood, Venous) 07/04/2023 9:49 AM ANDROID PROGRAMMER 07/04/2023 10:29 AM ANDROID PROGRAMMER Pérez Zuniga M.D., Ph.D. LAB BLOO D ADD-ON Performing Organization Address [facility] de Phone Number [facility] [address] [place] [address], [place] [address] * (ABNORMAL) Comprehensive Metabolic Panel (07/04/2023 9:49 AM ANDROID PROGRAMMER) Only the most recent of3 resultswithin the time period is included. Potassium, S 4.7 3.6 - 5.2 mmol/L 07/04/2023 11:05 AM ANDROID PROGRAMMER DTL Sodium, S 137 135 - 145 mmol/L 07/04/2023 11:05 AM ANDROID PROGRAMMER DTL Chloride, S 103 98 - 107 mmol/L 07/04/2023 11:05 AM ANDROID PROGRAMMER DTL Bicarbonate, S 24 22 - 29 mmol/L 07/04/2023 11:05 AM ANDROID PROGRAMMER DTL Anion Gap 10 7 - 15 07/04/2023 11:05 AM ANDROID PROGRAMMER DTL BUN (Blood Urea Nitrogen), S 22(H) 6 - 21 mg/dL 07/04/2023 11:05 AM ANDROID PROGRAMMER DTL Creatinine 0.90 0.59 - 1.04 mg/dL 07/04/2023 11:05 AM ANDROID PROGRAMMER DTL Estimated GFR (eGFR) 80 >=60 mL/min/BS A 07/04/2023 11:05 AM ANDROID PROGRAMMER DTL Comment: Estimated GFR calculated using the 2020 CKD_EPI creatinine equation. Calcium, Total, S 9.9 8.6 - 10.0 mg/dL 07/04/2023 11:05 AM ANDROID PROGRAMMER DTL Glucose, S 98 70 - 140 mg/dL 07/04/2023 11:05 AM ANDROID PROGRAMMER DTL Protein, Total, S 7.7 6.3 - 7.9 g/dL 07/04/2023 11:05 AM ANDROID PROGRAMMER DTL Albumin, S 4.3 3.5 - 5.0 g/dL 07/04/2023 11:05 AM ANDROID PROGRAMMER DTL Aspartate Aminotransferase (AST), S 26 8 - 43 U/L 07/04/2023 11:05 AM ANDROID PROGRAMMER DTL Alkaline Phosphatase, S 229(H) 35 - 104 U/L 07/04/2023 11:05 AM ANDROID PROGRAMMER DTL Alanine Aminotransferase (ALT), S 24 7 - 45 U/L 07/04/2023 11:05 AM ANDROID PROGRAMMER DTL Bilirubin, Total, S 0.2 0.0 - 1.2 mg/dL 07/04/2023 11:05 AM ANDROID PROGRAMMER DTL Blood (Blood, Venous) 07/04/2023 9:49 AM ANDROID PROGRAMMER 07/04/2023 10:29 AM ANDROID PROGRAMMER Pérez Zuniga M.D., Ph.D. LAB BLOO D ADD-ON [facility] [address] [place] [address], [facility] [address] [place] [address] * (TTE) 2D ECHO DOPPLER COLOR (06/20/2023 1:28 PM ANDROID PROGRAMMER) Pathologist [facility] Ejection Fraction 65 CV EIMS Mid-Ascending Aorta 31 MC CV EIMS LV Mass Index 51 MC CV EIMS LV End-Diastolic Diameter 45 MC CV EIMS LV End-Systolic Diameter 30 MC CV EIMS LV End-Diastolic Volume 122 MC CV EIMS LV End-Systolic Volume 43 MC CV EIMS MV E Velocity 0.7 MC CV EIMS MV A Velocity 0.5 MC CV EIMS MV E/A 1.4 MC CV EIMS MV e' Velocity Medial 0.11 MC CV EIMS MV e' Velocity Lateral 0.15 MC CV EIMS MV E/e' Medial 6.4 MC CV EIMS MV E/e' Lateral 4.7 MC CV EIMS Left ventricular stroke volume index 35 MC CV EIMS Cardiac Output 5.2 MC CV EIMS Cardiac Index 2.77 MC CV EIMS LV Global Longitudinal Strain -21 MC CV EIMS LV Interventricular Septal Wall Thickness 8 MC CV EIMS LV Posterior Wall Thickness 6 MC CV EIMS LV Relative Wall Thickness 27 MC CV EIMS TAPSE 24 MC CV EIMS Tricuspid Annular S? 0.14 MC CV EIMS TR Vmax 2.19 MC CV EIMS RA Pressure 5 MC CV EIMS RV Systolic Pressure 24 MC CV EIMS AV mean gradient 4 MC CV EIMS Aortic valve area 2.63 MC CV EIMS Aortic Valve Dimensionless Index 0.76 MC CV EIMS LA Volume Index 34 MC CV EIMS Aortic Valve Systolic Peak Velocity 1.3 MC CV EIMS Anatomical Region Laterality Modality Other 06/20/2023 12:3 4 PM ANDROID PROGRAMMER Impressions 06/20/2023 1:42 PM ANDROID PROGRAMMER There are no previous [facility] echocardiograms available for comparison. LEFT VENTRICLE:Normal left ventricular chamber size. Normal left ventricular wall thickness. Calculated 2-D biplane volumetric left ventricular ejection fraction of 65%. Global averaged left ventricular longitudinal peak systolic strain is normal at -21% (normal = more negative than -18%). No regional wall motion abnormalities. Normal left ventricular diastolic function. RIGHT VENTRICLE:Normal right ventricular chamber size. Normal right ventricular systolic function. Estimated right ventricular systolic pressure 24 mmHg (right atrial pressure of 5 mmHg). ATRIA:Normal left atrial size. Left atrial volume index 34 ml/m2. Normal right atrial size. CARDIAC VALVES:Trileaflet aortic valve. Normal aortic valve. No aortic valve regurgitation. Normal mitral valve. Mild mitral valve regurgitation. Normal pulmonary valve. Normal pulmonary valve systolic velocities. Trivial pulmonary valve regurgitation. Normal tricuspid valve. Mild tricuspid valve regurgitation (image 74, two regurgitant jets). OTHER ECHO FINDINGS:Normal inferior vena cava size with normal inspiratory collapse (>50%). Normal mid ascending aorta diameter of 31 mm. No abdominal aortic aneurysm. Normal abdominal aorta Doppler flow pattern. No intracardiac mass or thrombus, but the left atrial appendage cannot be visualized adequately with transthoracic echo to exclude thrombus in this location. No ??pericardial effusion. Patent foramen ovale (image 98). For the complete report, see the Order-Level Documents. Narrative 06/20/2023 1:42 PM ANDROID PROGRAMMER For the complete report, see the Order-Level Documents. Hemodynamics Blood Pressure: 124 / 78 mmHg ECG: Sinus rhythm Final Impressions 1. Normal left ventricular chamber size, no regional wall motion abnormalities, calculated 2-D biplane volumetric ejection fraction of 65%, global averaged longitudinal peak systolic strain is normal at -21% (normal = more negative than -18%). 2. Normal left ventricular diastolic function. 3. Mild tricuspid valve regurgitation (two regurgitant jets). 4. Normal right ventricular chamber size, normal systolic function, estimated right ventricular systolic pressure 24 mmHg (right atrial pressure of 5 mmHg). 5. Patent foramen ovale. ?? This is seen by color Doppler and appears small. There is no right heart enlargement. The PFO is best appreciated on images 97 and 98. ?? Bubble study was not performed. 6. No ??pericardial effusion. Procedure Note Humza Cai M.D. - 06/20/2023 For the complete report, see the Order-Level Documents. Hemodynamics Blood Pressure: 124 / 78 mmHg ECG: Sinus rhythm Final Impressions 1. Normal left ventricular chamber size, no regional wall motionabnormalities, calculated 2-D biplane volumetric ejection fraction of 65%,global averaged longitudinal peak systolic strain is normal at -21%(normal = more negative than -18%). 2. Normal left ventricular diastolic function. 3. Mild tricuspid valve regurgitation (two regurgitant jets). 4. Normal right ventricular chamber size, normal systolic function,estimated right ventricular systolic pressure 24 mmHg (right atrialpressure of 5 mmHg). 5. Patent foramen ovale. This is seen by color Doppler and appearssmall. There is no right heart enlargement. The PFO is best appreciated onimages 97 and 98. Bubble study was not performed. 6. No pericardial effusion. Findings There are no previous [facility] echocardiograms available forcomparison. LEFT VENTRICLE:Normal left ventricular chamber size. Normal leftventricular wall thickness. Calculated 2-D biplane volumetric leftventricular ejection fraction of 65%. Global averaged left ventricularlongitudinal peak systolic strain is normal at -21% (normal = morenegative than -18%). No regional wall motion abnormalities. Normal leftventricular diastolic function. RIGHT VENTRICLE:Normal right ventricular chamber size. Normal rightventricular systolic function. Estimated right ventricular systolicpressure 24 mmHg (right atrial pressure of 5 mmHg). ATRIA:Normal left atrial size. Left atrial volume index 34 ml/m2. Normalright atrial size. CARDIAC VALVES:Trileaflet aortic valve. Normal aortic valve. No aorticvalve regurgitation. Normal mitral valve. Mild mitral valve regurgitation.Normal pulmonary valve. Normal pulmonary valve systolic velocities.Trivial pulmonary valve regurgitation. Normal tricuspid valve. Mildtricuspid valve regurgitation (image 74, two regurgitant jets). OTHER ECHO FINDINGS:Normal inferior vena cava size with normal inspiratorycollapse (>50%). Normal mid ascending aorta diameter of 31 mm. Noabdominal aortic aneurysm. Normal abdominal aorta Doppler flow pattern. Nointracardiac mass or thrombus, but the left atrial appendage cannot bevisualized adequately with transthoracic echo to exclude thrombus in thislocation. No pericardial effusion. Patent foramen ovale (image 98). For the complete report, see the Order-Level Documents. Pérez Zuniga M.D., Ph.D. CV ECHO PROCEDURES * Type and Screen (with Reflex Antibody ID) (06/20/2023 12:01 PM ANDROID PROGRAMMER) ABORh O Neg Not applicable 06/20/2023 1:48 PM ANDROID PROGRAMMER ETRM Antibody Screen Negative Negative 06/20/2023 2:00 PM ANDROID PROGRAMMER ETRM Type & Screen Expiration 06/23/2023 23:59 06/20/2023 1:48 PM ANDROID PROGRAMMER ETRM Testing Location [place] DEFAULT 06/20/2023 12:53 PM ANDROID PROGRAMMER ETRM Blood (Blood, Venous) 06/20/2023 12:01 PM ANDROID PROGRAMMER 06/20/2023 12:53 PM ANDROID PROGRAMMER Pérez Zuniga M.D., Ph.D. LAB BLOO D BANK TEST ORDERABLES [facility] [address] [place] [address], [place] ETRM [facility] [address] [place] [address] * Interpretation of Outside NM PET Scan (06/04/2023 7:56 AM ANDROID PROGRAMMER) Anatomical Region Laterality Modality Nuclear Medicine PET RST LOS , Nuclear Medicine ARZ LOS, Nuclear Medicine FLA LOS, Nuclear Medicine, Other, Neuroradiology ARZ LOS, Neuroradiology FLA LOS, Neuroradiology RST LOS, Body N/A Nuclear Medicine 06/10/2023 8:28 AM ANDROID PROGRAMMER Impressions 06/10/2023 10:24 AM ANDROID PROGRAMMER 1. Large intensely hypermetabolic mixed solid and cystic pelvic mass, unclear whether this arises from the uterus or the left adnexa. Additional intensely hypermetabolic mixed solid and cystic mass arising either from the right adnexa or cecum. Given history, this presumably represents metastatic melanoma; however, other pelvic malignancies remain in the differential. Further anatomic characterization with pelvic MRI may be helpful. 2. Bilateral pulmonary nodules, with the larger nodules demonstrating abnormally increased FDG uptake. There is an additional dominant right lower lobe intensely hypermetabolic pulmonary mass. Findings likely reflect metastatic disease disease (presumably metastatic melanoma). 3. Exophytic moderately hypermetabolic solid right renal mass. Given intensity of uptake compared to adjacent renal parenchyma, favor metastatic melanoma. A primary solid renal lesion is also in the differential, particularly if this lesion does not demonstrate improvement after initiation of therapy for metastatic melanoma. 4. Scattered small subcutaneous nodules and a few lymph nodes with associated mild to mild to moderate FDG uptake, suspicious for metastatic disease. 5. Known intracranial metastases are better demonstrated on the brain MRI from 05/29/2023. Please see that study for details. 6. Extensive abnormally hypermetabolic osseous metastatic disease most of which is lytic and/or destructive. Given the lytic/destructive nature of the lesions, some of these may be at risk for pathologic fracture, particularly involving the femoral necks (right more concerning than left). Some of the lesions involving the sacrum and spine have associated soft tissue components extending into the adjacent spinal canal/neural foramens as described above. Correlate for neurologic symptoms and consider additional imaging of those areas as indicated. 7. Fairly intense FDG uptake in the anorectal region without definite CT correlate. This may be physiologic or inflammatory but consider direct visualization as clinically indicated. 8. Several tiny low-density lesions in the liver which are too small to characterize and do not discretely demonstrate abnormally increased FDG uptake in relation a background. Recommend attention on follow-up. Additional findings as described in the body of the report. Narrative 06/10/2023 10:24 AM ANDROID PROGRAMMER EXAM: ??INTERPRETATION OF OUTSIDE NM PET SCAN dated 05/15/2023. TECHNIQUE: ??F-18 Fluorodeoxyglucose (FDG) PET/CT scan was performed from the vertex through the knees with CT fusion imaging for attenuation correction and anatomic coregistration only. Please note that the CT was performed with IV contrast. COMPARISON: ??Outside MRI left femur, 05/08/2023; MRI brain, 05/29/2023 INDICATION: Recently diagnosed metastatic melanoma. Biopsy of a left femoral mass, 05/13/2023 positive for metastatic melanoma. Initial treatment strategy. FINDINGS: ?? Intensely hypermetabolic mixed solid and cystic pelvic mass, superior to the bladder and anterior to the uterus (CT slice 234). This mass measures approximately 11.3 x 7.8 x 12.2 cm with a maximum SUV of 15.2 (origin unclear, left adnexal versus uterus). A 3 x 2.3 cm soft tissue structure is noted adjacent to the left aspect of the uterus which may represent the physiologic left adnexa/ovary and does not demonstrate associated concerning FDG uptake. There is an additional 4.5 x 3.5 cm mixed solid and cystic structure in the right hemipelvis (CT slice 235) with intense FDG uptake (maximum SUV 17.5) which could relate to the right adnexa versus the cecum. Extensive bilateral pulmonary nodules (more numerous in the lower lungs) with the larger nodules demonstrating associated mild to moderate FDG uptake. For instance a 5 mm nodule in the right upper lobe (CT slice 103) demonstrates a maximum SUV of 5.2 and a 7 mm nodule in the left lower lobe (CT slice 120) demonstrates a maximum SUV of 4.9. A dominant mass in the right lower lobe (CT slice 130) measures 4.1 x 3.5 x 2.6 cm with intense FDG uptake (maximum SUV 13.9). 1.8 x 1.6 cm moderately hypermetabolic exophytic solid right renal mass (CT slice 179, maximum SUV 7.4). Extensive multifocal abnormally hypermetabolic osseous metastatic disease throughout the axial and appendicular skeleton, including but not limited to the bilateral humeri, left clavicular head, right acromion, spine, sternum, ribs, sacrum, pelvis, and bilateral femora (uptake ranges from moderate to intense). Most of these lesions are lytic and/or destructive and some demonstrate associated soft tissue components. Some of the spinal and sacral lesions extend into the adjacent neural foramina/spinal canal. For instance an abnormally hypermetabolic 2.3 x 2.2 x 2 cm destructive lesion involving the T10 vertebral body (CT slice 146, maximum SUV 14.7) extends into the adjacent spinal canal at the level of T10-11. An abnormally hypermetabolic destructive lytic lesion with associated soft tissue component involving the right aspect of T12 (CT slice 166, maximum SUV 13.9) has a soft tissue component which extends towards the right T12-L1 neural foramen, and an abnormally hypermetabolic destructive lytic lesion in the left sacrum (CT slice 229, maximum SUV 10.1) appears to extend into the left S1 and S2 neural foramina. Given the destructive nature of the multiple osseous lesions, there is risk for pathologic fractures, particularly in bilateral femoral necks. For instance a lesion in the right femoral neck significantly thins the anterior cortex (CT slice 263) measuring approximately 2 x 1.4 cm with a maximum SUV of 8.7. There are multiple scattered prominent lymph nodes and subcutaneous soft tissue nodules with varying degrees of mild to mild-moderate FDG uptake. For instance a soft tissue nodule/lymph node involving the posterior mid right upper arm (CT slice 49) measures 9 mm with a maximum SUV of 3.6, a 7 mm left axillary lymph node (CT slice 119) demonstrates a maximum SUV of 3.8, a subcutaneous soft tissue nodule in the left back (CT slice 188) measures 6 mm with a maximum SUV of 2.7, and a posterior left femoral subcutaneous soft tissue nodule (CT slice 292) measures 9 mm with a maximum SUV of 2.6. 7 mm left presacral/internal iliac lymph node (CT slice 232) with mild uptake, indeterminate. Known bilateral intracranial metastases noted on the brain MRI from 05/29/2023 are not well evaluated on this study and are difficult to discern from adjacent background brain parenchymal activity. Presumed physiologic symmetric bilateral vocal cord apparatus activity. Fairly symmetric moderate oropharyngeal lymphoid tissue uptake is also favored to be physiologic. Intense FDG uptake in the anorectal region (PET slice 277, maximum SUV 10.4) is without definite CT correlate and may be physiologic/inflammatory, but consider direct visualization. Additional CT findings: 7 mm low-density right thyroid nodule (CT slice 87) without associated increased FDG uptake. Lobulated low-density lesion in the anterior left hepatic lobe (CT slice 161) without associated increased FDG uptake, likely a cyst or hemangioma. Additional tiny too small to characterize low-density lesions in the right hepatic lobe (CT slice 158 and 156) are without definite focal increased FDG uptake in relation to background. Attention on follow-up is recommended. Likely focal fatty replacement along the falciform ligament. Small splenule in the left upper quadrant. Several suspected small uterine fibroids. Procedure Note Jose Valentino M.D. - 06/10/2023 EXAM: INTERPRETATION OF OUTSIDE NM PET SCAN dated 05/15/2023. TECHNIQUE: F-18 Fluorodeoxyglucose (FDG) PET/CT scan was performed fromthe vertex through the knees with CT fusion imaging for attenuationcorrection and anatomic coregistration only. Please note that the CT wasperformed with IV contrast. COMPARISON: Outside MRI left femur, 05/08/2023; MRI brain, 05/29/2023 INDICATION: Recently diagnosed metastatic melanoma. Biopsy of a leftfemoral mass, 05/13/2023 positive for metastatic melanoma. Initialtreatment strategy. FINDINGS: Intensely hypermetabolic mixed solid and cystic pelvic mass, superior tothe bladder and anterior to the uterus (CT slice 234). This mass measuresapproximately 11.3 x 7.8 x 12.2 cm with a maximum SUV of 15.2 (originunclear, left adnexal versus uterus). A 3 x 2.3 cm soft tissue structure is noted adjacent to the left aspectof the uterus which may represent the physiologic left adnexa/ovary anddoes not demonstrate associated concerning FDG uptake. There is anadditional 4.5 x 3.5 cm mixed solid and cystic structure in the right hemipelvis (CT slice 235) with intense FDGuptake (maximum SUV 17.5) which could relate to the right adnexa versusthe cecum. Extensive bilateral pulmonary nodules (more numerous in the lower lungs)with the larger nodules demonstrating associated mild to moderate FDGuptake. For instance a 5 mm nodule in the right upper lobe (CT slice 103)demonstrates a maximum SUV of 5.2 and a 7 mm nodule in the left lower lobe (CT slice 120) demonstrates amaximum SUV of 4.9. A dominant mass in the right lower lobe (CT slice 130)measures 4.1 x 3.5 x 2.6 cm with intense FDG uptake (maximum SUV 13.9). 1.8 x 1.6 cm moderately hypermetabolic exophytic solid right renal mass(CT slice 179, maximum SUV 7.4). Extensive multifocal abnormally hypermetabolic osseous metastatic diseasethroughout the axial and appendicular skeleton, including but not limitedto the bilateral humeri, left clavicular head, right acromion, spine,sternum, ribs, sacrum, pelvis, and bilateral femora (uptake ranges from moderate to intense). Most of theselesions are lytic and/or destructive and some demonstrate associated softtissue components. Some of the spinal and sacral lesions extend into theadjacent neural foramina/spinal canal. For instance an abnormally hypermetabolic 2.3 x 2.2 x 2 cmdestructive lesion involving the T10 vertebral body (CT slice 146, maximumSUV 14.7) extends into the adjacent spinal canal at the level of T10-11.An abnormally hypermetabolic destructive lytic lesion with associated soft tissue component involving the rightaspect of T12 (CT slice 166, maximum SUV 13.9) has a soft tissue componentwhich extends towards the right T12-L1 neural foramen, and an abnormallyhypermetabolic destructive lytic lesion in the left sacrum (CT slice 229, maximum SUV 10.1) appears toextend into the left S1 and S2 neural foramina. Given the destructivenature of the multiple osseous lesions, there is risk for pathologicfractures, particularly in bilateral femoral necks. For instance a lesion in the right femoral neck significantly thinsthe anterior cortex (CT slice 263) measuring approximately 2 x 1.4 cm witha maximum SUV of 8.7. There are multiple scattered prominent lymph nodes and subcutaneous softtissue nodules with varying degrees of mild to mild-moderate FDG uptake.For instance a soft tissue nodule/lymph node involving the posterior midright upper arm (CT slice 49) measures 9 mm with a maximum SUV of 3.6, a 7 mm left axillary lymph node(CT slice 119) demonstrates a maximum SUV of 3.8, a subcutaneous softtissue nodule in the left back (CT slice 188) measures 6 mm with a maximumSUV of 2.7, and a posterior left femoral subcutaneous soft tissue nodule (CT slice 292) measures 9 mm witha maximum SUV of 2.6. 7 mm left presacral/internal iliac lymph node (CT slice 232) with milduptake, indeterminate. Known bilateral intracranial metastases noted on the brain MRI from05/29/2023 are not well evaluated on this study and are difficult todiscern from adjacent background brain parenchymal activity. Presumed physiologic symmetric bilateral vocal cord apparatus activity.Fairly symmetric moderate oropharyngeal lymphoid tissue uptake is alsofavored to be physiologic. Intense FDG uptake in the anorectal region (PET slice 277, maximum SUV10.4) is without definite CT correlate and may bephysiologic/inflammatory, but consider direct visualization. Additional CT findings: 7 mm low-density right thyroid nodule (CT slice87) without associated increased FDG uptake. Lobulated low-density lesionin the anterior left hepatic lobe (CT slice 161) without associatedincreased FDG uptake, likely a cyst or hemangioma. Additional tiny too small to characterize low-density lesionsin the right hepatic lobe (CT slice 158 and 156) are without definitefocal increased FDG uptake in relation to background. Attention onfollow-up is recommended. Likely focal fatty replacement along the falciform ligament. Small splenule in the leftupper quadrant. Several suspected small uterine fibroids. IMPRESSION: 1. Large intensely hypermetabolic mixed solid and cystic pelvic mass,unclear whether this arises from the uterus or the left adnexa. Additionalintensely hypermetabolic mixed solid and cystic mass arising either fromthe right adnexa or cecum. Given history, this presumably represents metastatic melanoma; however, otherpelvic malignancies remain in the differential. Further anatomiccharacterization with pelvic MRI may be helpful. 2. Bilateral pulmonary nodules, with the larger nodules demonstratingabnormally increased FDG uptake. There is an additional dominant rightlower lobe intensely hypermetabolic pulmonary mass. Findings likelyreflect metastatic disease disease (presumably metastatic melanoma). 3. Exophytic moderately hypermetabolic solid right renal mass. Givenintensity of uptake compared to adjacent renal parenchyma, favormetastatic melanoma. A primary solid renal lesion is also in thedifferential, particularly if this lesion does not demonstrate improvement after initiation of therapy for metastaticmelanoma. 4. Scattered small subcutaneous nodules and a few lymph nodes withassociated mild to mild to moderate FDG uptake, suspicious for metastaticdisease. 5. Known intracranial metastases are better demonstrated on the brain MRIfrom 05/29/2023. Please see that study for details. 6. Extensive abnormally hypermetabolic osseous metastatic disease most ofwhich is lytic and/or destructive. Given the lytic/destructive nature ofthe lesions, some of these may be at risk for pathologic fracture,particularly involving the femoral necks (right more concerning than left). Some of the lesions involving thesacrum and spine have associated soft tissue components extending into theadjacent spinal canal/neural foramens as described above. Correlate forneurologic symptoms and consider additional imaging of those areas as indicated. 7. Fairly intense FDG uptake in the anorectal region without definite CTcorrelate. This may be physiologic or inflammatory but consider directvisualization as clinically indicated. 8. Several tiny low-density lesions in the liver which are too small tocharacterize and do not discretely demonstrate abnormally increased FDGuptake in relation a background. Recommend attention on follow-up. Additional findings as described in the body of the report. Pérez Zuniga M.D., Ph.D. IMG NM P ROCEDURES * Interpretation of Outside MR Extremity (06/04/2023 7:54 AM ANDROID PROGRAMMER) Anatomical Region Laterality Modality Musculoskeletal RST LOS, Mus culoskeletal ARZ LOS, Muskuloskeletal FLA LOS, Musculoskeletal, Other N/A Magnet ic Resonance 06/04/2023 11:3 3 AM ANDROID PROGRAMMER Impressions 06/04/2023 11:45 AM ANDROID PROGRAMMER There are several 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 The largest is seen proximally extending off of the proximal kjtjr-aa-nsch. This involves the intertrochanteric left femur extending distally to the proximal/middle 3rd junction. Small lesion at the midshaft (series 4 image 9). There is a 3rd prominent lesion within the distal metadiaphysis measuring up to 5.6 cm in length (series 4 image 13) with several small (subcentimeter) satellite nodules within the distal metaphysis (series 4 images 16 through 19). These lesions are all enhancing on the post gadolinium images. There is a prominent lesion within the proximal tibial diaphysis, which extends off of the proximal fieex-ut-taej (series 3 and 4 image 15). The lesions right around the knee were not present on the MRI from October 2014 and correlate with areas of hypermetabolic activity on the recent PET CT. Findings are compatible with recent biopsy results of metastatic melanoma. Large surdo-ch-imob coronal and axial images include the right femur, which demonstrates numerous large intramedullary lesions throughout the right femoral diaphysis as well as the proximal right tibial diaphysis, as well. No definite discrete soft tissue masses within either thigh. Narrative 06/04/2023 11:45 AM ANDROID PROGRAMMER EXAM: ??INTERPRETATION OF OUTSIDE MR LEFT FEMUR WITHOUT AND WITH IV CONTRAST FROM 05/08/2023 COMPARISON: ??MRI from 10/15/2014. PET CT from 05/15/2023 Procedure Note Luther León M.D. - 06/04/2023 EXAM: INTERPRETATION OF OUTSIDE MR LEFT FEMUR WITHOUT AND WITH IVCONTRAST FROM 05/08/2023 COMPARISON: MRI from 10/15/2014. PET CT from 05/15/2023 IMPRESSION: There are several large marrow replacing intramedullary lesions within theleft femur. The largest is seen proximally extending off of the pbhderorjhrkn-xq-cnap. This involves the intertrochanteric left femur extendingdistally to the proximal/middle 3rd junction. Small lesion at the midshaft (series 4 image9). There is a 3rd prominent lesion within the distal metadiaphysismeasuring up to 5.6 cm in length (series 4 image 13) with several small(subcentimeter) satellite nodules within the distal metaphysis (series 4 images 16 through 19). Theselesions are all enhancing on the post gadolinium images. There is aprominent lesion within the proximal tibial diaphysis, which extends offof the proximal wboee-ko-ardx (series 3 and 4 image 15). The lesions right around the knee were not present on the MRIfrom October 2014 and correlate with areas of hypermetabolic activity on therecent PET CT. Findings are compatible with recent biopsy results ofmetastatic melanoma. Large snhte-yt-utms coronal and axial images include the right femur, whichdemonstrates numerous large intramedullary lesions throughout the rightfemoral diaphysis as well as the proximal right tibial diaphysis, as well.No definite discrete soft tissue masses within either thigh. Pérez Zuniga M.D., Ph.D. IMG MRI PROCEDURES * MR Brain without and with IV Contrast (05/29/2023 7:09 PM ANDROID PROGRAMMER) Anatomical Region Laterality Modality Head, Brain, Neuroradiology RST LOS, Neuroradiology ARZ [facility], Neuroradiology FLA [facility] N/A Magnetic Resonance 05/30/2023 10:1 9 AM ANDROID PROGRAMMER Impressions 05/30/2023 10:38 AM ANDROID PROGRAMMER Multifocal subcentimeter intracranial metastases. No significant associated mass effect or hydrocephalus. Narrative 05/30/2023 10:38 AM ANDROID PROGRAMMER EXAM: MR BRAIN WITHOUT AND WITH IV CONTRAST COMPARISON: None FINDINGS: Numerous small foci of abnormal intracranial enhancement, concerning for metastatic disease (axial series 700): right frontoparietal (image 82), right parietal (image 81), left inferior parietal lobule (image 72), left superior frontal gyrus (image 84), and left temporal lobe (image 63). Punctate enhancement along the right corpus callosum (image 76) is too small to characterize as a metastasis vs vessel. Some of the lesions have mild associated edema without significant mass effect. No hydrocephalus. No acute infarct. No recent intracranial hemorrhage. Focal hyperostosis of the right frontal calvarium with associated dural thickening but no masslike enhancement. Focal enhance of the right posterior scalp (image 63). 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 Procedure Note Antonio Wood M.D., [facility] [place] - 05/30/2023 EXAM: MR BRAIN WITHOUT AND WITH IV CONTRAST COMPARISON: None FINDINGS: Numerous small foci of abnormal intracranial enhancement,concerning for metastatic disease (axial series 700): right frontoparietal(image 82), right parietal (image 81), left inferior parietal lobule(image 72), left superior frontal gyrus (image 84), and left temporal lobe (image 63). Punctate enhancement alongthe right corpus callosum (image 76) is too small to characterize as ametastasis vs vessel. Some of the lesions have mild associated edemawithout significant mass effect. No hydrocephalus. No acute infarct. No recent intracranial hemorrhage. Focalhyperostosis of the right frontal calvarium with associated duralthickening but no masslike enhancement. Focal enhance of the rightposterior scalp (image 63). 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 IMPRESSION: Multifocal subcentimeter intracranial metastases. No significantassociated mass effect or hydrocephalus. Naida Mejia P.A.-C. M.S. IMG MRI PROCEDURES * T4 (Thyroxine), Free, Serum (05/29/2023 5:35 PM ANDROID PROGRAMMER) T4 (Thyroxine), Free, S 1.0 0.9 - 1.7 ng/dL 05/29/2023 7:06 PM ANDROID PROGRAMMER DTL Blood 05/29/2023 5:35 PM ANDROID PROGRAMMER 05/29/2023 6:09 PM ANDROID PROGRAMMER Naida Mejia P.A.-C., M.S. LAB BLOO D ADD-ON [facility] [address] [place] [address], [facility] [address] [place] [address] * Thyroperoxidase (TPO) Antibodies (05/29/2023 5:35 PM ANDROID PROGRAMMER) Thyroperoxidase Ab, S 15.1 <34.0 IU/mL 05/29/2023 7:06 PM ANDROID PROGRAMMER DTL Blood 05/29/2023 5:35 PM ANDROID PROGRAMMER 05/29/2023 6:09 PM ANDROID PROGRAMMER Naida Mejia P.A.-C. M.S. LAB BLOO D ADD-ON Performing Organization Address City/[facility] Co de Phone Number [facility] [address] [place] [address] * (ABNORMAL) LD (Lactate Dehydrogenase) (05/29/2023 5:35 PM ANDROID PROGRAMMER) Lactate Dehydrogenase (LD), S 439(H) 122 - 222 U/L 05/29/2023 6:46 PM ANDROID PROGRAMMER DTL Blood (Blood, Venous) 05/29/2023 5:35 PM ANDROID PROGRAMMER 05/29/2023 6:09 PM ANDROID PROGRAMMER Naida Mejia P.A.-C. M.S. LAB BLOO D NON ADD-ON Performing Organization Address [facility] de Phone Number [facility] [address] [place] [address] * PET [facility]_PET_CAP_C (Adult)-Outside NM Pet (05/15/2023 11:00 AM CDT) Narrative [facility] - 05/27/2023 12:26 PM ANDROID PROGRAMMER This order has been created and auto-finalized to support the import of outside images. If available, original interpretation can be found on the Media Tab in Chart Review, in Document Viewer, or as an image in QREADS. If a re-interpretation or overread is required please follow defined workflow. ?? Provider Not In System IMG NM PROCEDURES Performing Organization Address [facility] Co de Phone Number [facility] NA * BRAF/KIT Mutation Analysis, Next-Generation Sequencing, Tumor (05/13/2023 8:27 AM CDT) Result Provided diagnosis: metastatic melanoma involving left femur The following CLINICALLY RELEVANT VARIANT was detected: Gene: BRAF DNA Change: c.1799T>A (Exon 15) Amino Acid Change: p.V600E (Mrx135Anx) Variant Allele Frequency: 49.9% No other reportable sequence variants were detected within the analyzed regions of the tested genes listed in the method description. 06/24/2023 1:13 PM ANDROID PROGRAMMER DTL Additional Information CLINICAL TRIALS Possible clinical trials of benefit for this patient can be found at the following sites: 1) ClinicalTrials.gov: www.clinicaltrials. gov/ct2/search/adva nced 2) [facility]: www.[facility]/resear ch/clinical-trials/ 3) [employer] [place]: www.cancer.gov/clin icaltrials/search REFERENCE TRANSCRIPT Sequence variant nomenclature is based on the following RefSeq accession number (build GRCh37 (hg19)):BRAF [id number]. 06/24/2023 1:13 PM ANDROID PROGRAMMER DTL Specimen Tissue, Tumor 06/24/2023 1:13 PM ANDROID PROGRAMMER DTL Tissue ID [id number] 06/24/2023 1:13 PM ANDROID PROGRAMMER DTL Method Microscopic examination is performed by a pathologist to identify areas of tumor for enrichment by macrodissection. DNA is extracted from FFPE or cytology slides, and next generation sequencing is performed to evaluate the presence of a mutation in all coding regions and exon/intron boundaries of the BRAF and KIT genes. Variant nomenclature is based on build GRCh37 (hg19). For details about gene transcripts (RefSeq accession numbers), specific targeted regions of each gene, and additional information on this test, see www.[employer]. Prixtel (Test ID BRFKT). 06/24/2023 1:13 PM ANDROID PROGRAMMER DTL Disclaimer This test cannot differentiate between somatic and germline alterations. Additional testing may be necessary to clarify the significance of results if there is a potential hereditary risk. DNA variants of uncertain significance may be identified. A negative result does not rule out the presence of a variant that may be present but below the limits of detection of this assay. The analytical sensitivity of this assay for sequence reportable alterations is 5% mutant allele frequency with a minimum coverage of 500X in a sample with at least 20% tumor content. Point mutations and small insertion/deletion mutations will be detected in the BRAF and KIT genes only. This test may detect single exon deletions but does not detect multi-exon deletions, duplications or genomic copy number variants. Variant allele frequency (VAF) is the percentage of sequencing reads supporting a specific variant divided by the total sequencing reads at that position. In somatic testing, VAF should be interpreted in the context of several factors including, but not limited to: tumor purity/heterogeneit y/copy number status (ploidy, gains/losses, loss of heterozygosity) and sequencing artifact/misalignme nt [PMID: 89399198, PMID: 18057693]. Rare polymorphisms may be present that could lead to false-negative or false-positive results. The presence or absence of a variant may not be predictive of response to therapy in all patients. Test results should be interpreted in the context of clinical, tumor sampling, histopathological, and other laboratory data. If results obtained do not match other clinical or laboratory findings, contact the laboratory for discussion. Misinterpretation of results may occur if the information provided is inaccurate and/or incomplete. Reliable results are dependent on adequate specimen collection and processing. This test has been validated on cytology slides and formalin-fixed, paraffin-embedded tissues; other types of fixatives are discouraged. Improper treatment of tissues, such as decalcification, may cause PCR failure. This test was developed and its performance characteristics determined by [facility] in a manner consistent with CLIA requirements. This test has not been cleared or approved by the U.S. Food and Drug Administration. 06/24/2023 1:13 PM ANDROID PROGRAMMER DTL Released By Lexy Lang M.D. 06/24/2023 1:13 PM ANDROID PROGRAMMER DTL Interpretation BRAF c.1799T>A (p.V600E) (Exon 15) BRAF encodes the signaling protein Braf, which is downstream of Eduardo and activates the MAPK pathway. Braf signaling is critically involved in the processes of cell division and differentiation. BRAF activating mutations occur predominantly at a single location (V600E). BRAF activating mutations or amplification have been reported to result in uncontrolled cell growth and tumorigenesis [PMID:85118717, PMID:88524850]. Clinically approved targeted therapy is available for patients with unresectable or metastatic solid tumors with a BRAF V600E mutation [fda.gov/drugs]. 06/24/2023 1:13 PM ANDROID PROGRAMMER DTL Tissue (Bone) 05/13/2023 8:2 7 AM CDT 06/16/2023 1:57 PM ANDROID PROGRAMMER Naida Mejia P.A.-C., M.S. LAB GENE TIC TESTING [facility] [address] [place] [address], [facility] DTL [address] [facility] [address] [place] [address] * Pathology Review of Outside Material (05/13/2023 1:26 AM CDT) 06/10/2023 3:51 PM ANDROID PROGRAMMER DTL Participated in the Interpretation Yann Dixon M.D.-Pathology Fellow 06/10/2023 3:51 PM ANDROID PROGRAMMER DTL Report electronically signed by Jose Willis M.D. I verify that I have examined all relevant slides/materials for the specimen(s) and rendered or confirmed the diagnosis. 06/10/2023 3:51 PM ANDROID PROGRAMMER DTL Material Received A. [id number]: Left femur ? 22 stained slides, 20 unstained slides 06/10/2023 3:51 PM ANDROID PROGRAMMER DTL Addendum Genetic testing for BRAF/KIT Mutation Analysis, Tumor (BRFKT) ??will be performed and resulted in the patient's medical record. Signed by Cl Edwards M.D. 06/14/2023 10:19 AM 06/14/2023 10:19 AM ANDROID PROGRAMMER DTL Comment:REVISED RESULTS Interpretation FINAL DIAGNOSIS Left femur mass, biopsy ([id number]; 05/13/2023): Metastatic melanoma, diffusely positive for BRAF V600E on outside immunohistochemical studies. Thank you very much for allowing me to review this case. With your permission, I have retained material for my teaching files. ??If this is not acceptable, please let me know, and I will return material under separate cover. Your remaining material is enclosed. ??If you have any questions, please do not hesitate to reach me by calling [facility] [employer] at [phone]. 06/14/2023 10:19 AM ANDROID PROGRAMMER DTL Varies 05/13/2023 1:26 AM CDT 06/05/2023 7:18 PM ANDROID PROGRAMMER Naida Mejia P.A.-C. MSantoshS. LAB SURG PATH ORDERABLES Performing Organization Address [facility] de Phone Number [facility] [address] [place] [address], [facility] DTL [address] [place] [address] * XR CHEST 2 VIEWS-Outside Chest Xray (05/09/2023 1:45 PM CDT) Narrative IIMS - 05/27/2023 12:20 PM ANDROID PROGRAMMER This order has been created and auto-finalized to support the import of outside images. If available, original interpretation can be found on the Media Tab in Chart Review, in Document Viewer, or as an image in QREADS. If a re-interpretation or overread is required please follow defined workflow. ?? Provider Not In System IMG DIAGNOSTIC IM AGING PROCEDURES Performing Organization Address [facility] de Phone Number [facility] NA * MR FEMUR LT WO/W CON-Outside MR MSK (05/08/2023 7:35 PM CDT) 05/08/2023 7:33 PM CDT Narrative [facility] - 05/08/2023 8:54 PM CDT This order has been created and auto-finalized to support the import of outside images. If available, original interpretation can be found on the Media Tab in Chart Review, in Document Viewer, or as an image in QREADS. If a re-interpretation or overread is required please follow defined workflow. ?? Provider Not In System IMG MRI PROCEDURE S Performing Organization Address [facility] de Phone Number [facility] NA from Last 3 Months Additional Health Concerns Infection Onset Date Last Indicated Protective Environment 06/04/2023 3 Care Teams Regular Senior Care Provider Relationship Specialty Start Date End Date Elsewhere, Pcp PCP - General Family Medicine 06/17/23
--- OUTSIDE RECORDS SUMMARY | 2023-08-08 18:03 | XMS_ITS | Clinical Summary ---
Author Name Unknown Organization [facility] Address [address] [place] [address] Care Team Providers Care Car Top Bolter Name Role Phone Elsewhere, Pcp Primary Care Provider Unavailabl e Source Comments Patient records contain information from all sites at [facility]. For routine questions regarding patient records, call [phone] during business hours, M-F 8:00 AM - 5:00 PM Central Time. Record requests for emergency care only can be directed to [phone] at any time.[facility] Allergies No known active allergies Medications Medication [...] Noted Date Diagnosed Date Melanoma Trunk 06/04/2023 Encounters Date Type Department Care Team Description 08/08/2023 Clinical Communication Department of Oncology in [address] [phone] Cherelle Sanabria M.D. 08/06/2023 2:30 PM SPLICING SUPERVISOR Clinical Communication Virtual Review in [place], [place] [address] [place] [address] 08/04/2023 Specialty Pharmacy [facility] [address] [place] [phone] Demetrius Londono Jr., R.Ph. 07/29/2023 10:15 AM SPLICING SUPERVISOR Telemedicine Department of Palliative Care in [address] [phone] Valentine Kelsey M.D., M.S. Melanoma Trunk (HCC) (Primary Dx); Secondary Malignant Neoplasm Bone (HCC); Pain Cancer Associated; Palliative Care 07/26/2023 1:15 PM SPLICING SUPERVISOR Telemedicine Department of Palliative Care in [address] [phone] Marija Olivas, GAIL, C.N.P., M.S.Meka Brennan D.N.P., R.N., [facility] Palliative Care 07/17/2023 4:15 PM SPLICING SUPERVISOR Comprehensive Visit Department of Dermatology in [address] [phone] Naida Mejia P.A.-C., Anh Shoemaker M.D. Nevi Multiple (Primary Dx); Melanoma Trunk (HCC); Secondary Malignant Neoplasm Bone (HCC); Screening Examination Skin Cancer; Dermatoheliosis; Tumor Skin Uncertain Behavior 07/17/2023 12:45 PM SPLICING SUPERVISOR Ancillary Procedure Department of Ophthalmology 07/17/2023 11:45 AM SPLICING SUPERVISOR Office Visit Department of Ophthalmology in [address] [phone] Wolfgang Larose M.D. Hemorrhage Retinal Bilateral (Primary Dx); Melanoma Trunk (HCC) 07/17/2023 11:30 AM SPLICING SUPERVISOR Ancillary Procedure Department of Ophthalmology in [address] [phone] Phi Palm M.D., Ph.D. Hemorrhage Retinal Bilateral 07/17/2023 10:40 AM SPLICING SUPERVISOR Ancillary Procedure Department of Ophthalmology in [address] [phone] Phi Palm M.D., Ph.D. 07/17/2023 10:00 AM SPLICING SUPERVISOR Procedure visit Department of Ophthalmology in [address] [phone] Phi Palm M.D., Ph.D. Suleiman Vargas Hemorrhage Retinal Bilateral 07/17/2023 12:10 AM SPLICING SUPERVISOR Ancillary Procedure Department of Dermatology 07/17/2023 12:05 AM SPLICING SUPERVISOR Ancillary Procedure Department of Dermatology 07/17/2023 Ancillary Procedure Department of Ophthalmology 07/16/2023 Clinical Communication Department of Palliative Care in [address] [phone] Meka Rinaldi D.N.P., R.N., [facility] 07/10/2023 Orders Only Department of Ophthalmology in [address] [place] [address] Ani Bashir Aleah 07/05/2023 2:30 PM SPLICING SUPERVISOR Comprehensive Visit Department of Ophthalmology in [place], [place] [address] [place] [phone] Wolfgang Larose M.D. Hemorrhage Retinal Bilateral (Primary Dx) 07/05/2023 Clinical Communication Department of Oncology in [place], [place] [address] [place] [phone] Anahy Amezcua R.N., O.C.N. Sx - retinal hemorrhaging 07/04/2023 12:20 PM SPLICING SUPERVISOR Office Visit Department of Oncology in [place], [place] [address] [place] [phone] Pérez Zuniga M.D., Ph.D. Melanoma Trunk (HCC) (Primary Dx); Nausea 07/04/2023 10:30 AM SPLICING SUPERVISOR Clinical Support Department of Palliative Care in [place], [place] [address] [place] [phone] Valentine Kelsey M.D., M.S. Inés Wiley R.N. Melanoma Trunk (HCC); Nausea 07/04/2023 9:36 AM SPLICING SUPERVISOR - 07/04/2023 11:59 PM SPLICING SUPERVISOR Hospital Encounter Department of Laboratory Medicine and Pathology, [facility], in [place], [place] [address] [place] [phone] Pérez Zuniga M.D., Ph.D. Melanoma Trunk (HCC); Secondary Malignant Neoplasm Bone (HCC); Other Group Home Current Drug Therapy Discharge Disposition: Home or Self Care 07/04/2023 Clinical Communication Department of Ophthalmology in [place], [place] [address] [place] [phone] Provider, Unknown 07/04/2023 Clinical Communication Department of Palliative Care in [address] [phone] Inés Wiley RVince 07/01/2023 3:00 PM SPLICING SUPERVISOR Telemedicine Department of Palliative Care in [place], [place] [address] [place] [phone] Valentine Kelsey M.D., M.S. Melanoma Trunk (HCC) (Primary Dx); Nausea; Pain Cancer Associated; Palliative Care 07/01/2023 Clinical Communication [facility] [address] [place] [address] Cherelle Brooks C.Ph.T. Redirect Prescriptions 06/24/2023 Clinical Communication Department of Palliative Care in [place], [place] [address] [place] [phone] Valentine Kelsey M.D., M.S. Rx Denial (XTAMPZA ER 9 MG CAPSULES) 06/21/2023 8:30 AM SPLICING SUPERVISOR Comprehensive Visit Department of Palliative Care in [place], [place] [address] [place] [phone] Pérez Zuniga M.D., Ph.D. Valentine Kelsey M.D., M.S. Rachelle Oliver, R.N. Melanoma Trunk (HCC); Secondary Malignant Neoplasm Bone (HCC) 06/20/2023 4:40 PM SPLICING SUPERVISOR Office Visit Department of Oncology in [place], [place] [address] [place] [phone] Pérez Zuniga M.D., Ph.D. Melanoma Trunk (HCC) (Primary Dx); Secondary Malignant Neoplasm Bone (HCC); Other College Admissions Counselor Current Drug Therapy 06/20/2023 3:00 PM SPLICING SUPERVISOR Nurse Only Department of Oncology in [address] [phone] Laura Dalal M.D. Akosua Liz D.N.P., R.N. 06/20/2023 12:07 PM SPLICING SUPERVISOR - 06/20/2023 11:59 PM SPLICING SUPERVISOR Hospital Encounter Department of Cardiovascular Diseases in [place], [place] [address] [place] [phone] Pérez Zuniga M.D., Ph.D. Melanoma Trunk (HCC); Secondary Malignant Neoplasm Bone (HCC); Other Group Home Current Drug Therapy Discharge Disposition: Home or Self Care 06/20/2023 11:46 AM SPLICING SUPERVISOR - 06/20/2023 12:06 PM SPLICING SUPERVISOR Hospital Encounter Department of Laboratory Medicine and Pathology, [facility], in [place], [place] [address] [place] [phone] Pérez Zuniga M.D., Ph.D. Melanoma Trunk (HCC); Secondary Malignant Neoplasm Bone (HCC) Discharge Disposition: Home or Self Care 06/17/2023 7:00 AM SPLICING SUPERVISOR Clinical Communication Virtual Review in [place], [place] 200 [place] [address] Pre-visit Intake 06/10/2023 Clinical Communication Department of Oncology in [place], [place] [address] [place] [phone] Akosua Liz D.N.P., R.N. 06/05/2023 Clinical Communication [facility] [address] [place] [phone] Joanne Yoo C.Ph.T. Specialty Medication Delivery 06/05/2023 Specialty Pharmacy [facility] [address] [place] [phone] Yessi Patel, Pharm.D., R.Ph. Melanoma Trunk (HCC) (Primary Dx) 06/05/2023 Specialty Pharmacy [facility] [address] [place] [phone] Yessi Patel, Pharm.D., R.Ph. 06/05/2023 Clinical Communication Department of Oncology in [place], [place] [address] [place] [phone] Anahy Amezcua R.N., O.C.N. 06/04/2023 4:40 PM SPLICING SUPERVISOR Education Department of Oncology in [place], [place] [address] [place] [phone] Pérez Zuniga M.D., Ph.D. Anahy Amezcua R.N., O.C.N. Melanoma Trunk (HCC); Secondary Malignant Neoplasm Bone (HCC) 06/04/2023 2:20 PM SPLICING SUPERVISOR Comprehensive Visit Department of Oncology in [place], [place] [address] [place] [phone] Pérez Zuniga M.D., Ph.D. Melanoma Trunk (HCC) (Primary Dx); Secondary Malignant Neoplasm Bone (HCC); Other College Admissions Counselor Current Drug Therapy 06/04/2023 7:35 AM SPLICING SUPERVISOR Ancillary Procedure Department of Radiology in [place], [place] [address] [place] [phone] Pérez Zuniga M.D., Ph.D. Melanoma Trunk (HCC); Secondary Malignant Neoplasm Bone (HCC) 06/04/2023 7:35 AM SPLICING SUPERVISOR Ancillary Procedure Department of Radiology in [place], [place] [address] [place] [phone] Pérez Zuniga M.D., Ph.D. Melanoma Trunk (HCC); Secondary Malignant Neoplasm Bone (HCC) 06/04/2023 Orders Only [facility] [address] [place] [phone] Joy Hernandez, PharmSantoshD., R.Ph. 05/30/2023 1:00 PM SPLICING SUPERVISOR Lab RST RO LMP [address] [place] [phone] Naida Mejia P.A.-C., M.S. Melanoma Trunk (HCC); Secondary Malignant Neoplasm Bone (HCC) 05/29/2023 5:50 PM SPLICING SUPERVISOR - 05/29/2023 11:59 PM SPLICING SUPERVISOR Hospital Encounter Department of Radiology, [facility] in [place], [place] [address] [place] [phone] Naida Mejia P.A.-Harsha., M.S. Melanoma Trunk (HCC); Secondary Malignant Neoplasm Bone (HCC) Discharge Disposition: Home or Self Care 05/29/2023 5:21 PM SPLICING SUPERVISOR - 05/29/2023 5:49 PM SPLICING SUPERVISOR Hospital Encounter Department of Laboratory Medicine and Pathology, [facility] in [place], [place] [address] [place] [phone] Naida Mejia P.A.-C., M.S. Melanoma Trunk (HCC); Secondary Malignant Neoplasm Bone (HCC) Discharge Disposition: Home or Self Care 05/29/2023 2:15 PM SPLICING SUPERVISOR Admin Visit Department of Oncology in [place], [place] [address] [place] [phone] 05/29/2023 Clinical Communication Department of Oncology in [place], [place] [address] [place] [phone] Naida Mejia P.A.-C., M.S. Pre-visit Testing Orders 05/28/2023 Clinical Communication Department of Oncology in [place], [place] [address] [place] [phone] Naida Mejia P.A.-C., M.S. Pre-visit Testing Orders (New Reg) 05/24/2023 7:55 AM SPLICING SUPERVISOR Lab RST RO LMP [address] [place] [phone] Naida Mejia P.A.-C., M.S. Melanoma Trunk (HCC); Secondary Malignant Neoplasm Bone (HCC) 05/23/2023 Clinical Communication Department of Oncology in [address] [phone] Naida Mejia P.A.-C., M.S. 05/23/2023 Clinical Communication Department of Oncology in [address] [phone] Provider, Unknown [facility] (Med Onc) 05/22/2023 Clinical Communication Department of Oncology in [address] [phone] Naida Mejia P.A.-C., M.S. 05/22/2023 Clinical Communication Department of Oncology in [address] [phone] Prescheduling, Provider Pre-visit Intake (NEW REG ) 05/13/2023 11:59 PM CDT Hospital Encounter Department of Radiology, [facility], in [address] [phone] Lacho Joshi M.D. Canceled (Patient: Request) Discharge Disposition: Home or Self Care from Last 3 Months Family History Medical History Relation Name Comments Hypertension Brother Fredi Begum Sleep apnea Father Irineo Begum Diabetes Maternal Grandfather Magdy Skinner Rheum arthritis Maternal Grandmother Tania Skinner Hyperlipidemia Mother Cherelle Begum Hypertension Mother Cherelle Begum Osteoporosis Mother Cherelle Begum Parkinson disease Paternal Grandfather Tin Begum Relation Name Status Comments Brother Fredi Begum Father Irineo Begum Maternal Grandfather Magdy Skinner Maternal Grandmother Tania Skinner Mother Cherelle Begum Paternal Grandfather Tin Begum Social History Tobacco Use Types Packs/Day Years Used Date Smoking Tobacco: Never Passive Smoke Exposure: Never Smokeless Tobacco: Never Tobacco Cessation:Counseling Given: Not Answered Alcohol Use Standard Drinks/Week Comments Not Currently 6 (1 standard drink = 0.6 oz pur e alcohol) Occasional [facility] Utilities Answer Date Recorded In the past 12 months has e [employer], gas, oil, or water [facility] threatened to shut off services in your [...] your living situation today? I have a [facility] place to live 07/10/2023 Sex and Gender Information Value Date Recorded Sex Assigned at Female 05/31/2023 8:26 AM SPLICING SUPERVISOR Gender Identity Female 05/31/2023 8:26 AM SPLICING SUPERVISOR Sexual Orientation Straight 05/31/2023 8: 26 AM SPLICING SUPERVISOR Last Filed Vital Signs Vital Sign Reading Time Taken Comments Blood Pressure 102/69 06/21/2023 8:26 AM SPLICING SUPERVISOR Pulse 78 06/21/2023 8:26 AM SPLICING SUPERVISOR Temperature 36.8 ??C (98.2 ??F) 06/21/2023 8:26 AM CS T Respiratory Rate 16 06/20/2023 2:14 PM SPLICING SUPERVISOR Oxygen Saturation 100% 06/21/2023 8:26 AM SPLICING SUPERVISOR Inhaled Oxygen Concentration - - Weight 75 kg (165 lb 5.5 oz) 06/20/2023 2:14 PM SPLICING SUPERVISOR Height 160 cm (5' 2.99) 06/20/2023 2:14 PM SPLICING SUPERVISOR Body Mass Index 29.3 06/20/2023 2:14 PM SPLICING SUPERVISOR Plan of Treatment Upcoming Encounters Date Type Department Care Team (Late st Contact Info) Description 08/19/2023 6:40 AM SPLICING SUPERVISOR Appointment Department of Laboratory Medicine and Pathology, [place], [place] [address] [place] [phone] Pérez Zuniga M.D., Ph.D. [address] [place] [phone] 08/19/2023 7:00 AM SPLICING SUPERVISOR Ancillary Procedure Department of Cardiovascular Medicine in [place], [place] [address] [place] [address] Pérez Zuniga M.D., Ph.D. [address] [place] [phone] 08/19/2023 9:00 AM SPLICING SUPERVISOR Appointment Department of Radiology, [facility] in [place], [place] [address] [place] [address] Pérez Zuniga M.D., Ph.D. [address] [place] [phone] 08/19/2023 3:40 PM SPLICING SUPERVISOR Office Visit Department of Oncology in [place], [place] [address] [place] [phone] Zhane Granados APRN, C.N.P. [address] [place] [phone] 08/21/2023 10:15 AM SPLICING SUPERVISOR Clinical Support Department of Palliative Care in [place], [place] [address] [place] [phone] Serenity Kelsey, PSantoshA.-C. [address] [place] [phone] Meka Rinaldi D.N.P., R.N., [facility] Health Maintenance Due Date Last Done Comments CT Colonography 1977 Cervical Cancer Screening 1977 Cologuard 1977 Colonoscopy 1977 Colorectal Cancer Screening 1977 FIT 1977 Generalized Anxiety (MOJGAN-7) 1977 HIV Screening 1977 Hepatitis B Vaccines (1 of 3 - 3-dose series) 1977 Hepatitis C Screening 1977 Depression Screening (Annual PHQ-2) 07/15/2023 Controlled Substance Agreement 07/29/2023 Controlled Substance Monitoring (PHQ-9) 07/29/2023 Controlled Substance Monitoring 07/29/2023 Opioid Risk Tool (ORT) 07/29/2023 PEG assessment for Opioid therapy 07/29/2023 Opioid Use Disorder (OUD) Screening 07/30/2023 Mammogram 10/23/2023 10/22/2022 Creatinine Level (Kidney Function Test) 07/04/2024 07/04/2023, 06/20/2023, 05/29/2023, Additional history exists Potassium Level 07/04/2024 07/04/2023, 1201/2023, 05/29/2023, Additional history exists Sodium Level 07/04/2024 07/04/2023, 01/2023, 05/29/2023, Additional history exists Lipid (Cholesterol) Screening 08/12/2025 08/12/2020 Fasting Glucose for Diabetes Screening 07/04/2026 07/04/2023, 06/20/2023, 05/29/2023, Additional history exists DTaP,Tdap,and Td Vaccines (4 - Td or Tdap) 04/13/2031 04/13/2021, 06/26/2010, 07/28/2003, Additional history exists COVID-19 Vaccine Completed 06/05/2023, , 04/19/2021, Additional history exists Influenza Vaccine Completed 06/05/2023, , 03/23/2021, Additional history exists Pneumococcal vaccine (0-64 years) Aged Out No longer eligible based on patient's age to complete this topic Procedures Procedure Name Priority Date/Time Associated Diagnosis Comments DERMATOPATHOLOGY Routine 07/17/2023 4:41 PM SPLICING SUPERVISOR 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) Screening Examination Skin Cancer Dermatoheliosis Nevi Multiple ANGIOGRAPHY - OU - BOTH EYES Routine 07/17/2023 12:55 PM SPLICING SUPERVISOR Hemorrhage Retinal Bilateral OPHTHALMOLOGY IMAGE EXAM Routine 07/17/2023 12:45 PM SPLICING SUPERVISOR FUNDUS PHOTOS - OU - BOTH EYES Routine 07/17/2023 11:52 AM SPLICING SUPERVISOR Hemorrhage Retinal Bilateral DERMATOLOGY IMAGE EXAM Routine 12:10 AM SPLICING SUPERVISOR DERMATOLOGY IMAGE EXAM Routine 12:05 AM SPLICING SUPERVISOR OPHTHALMOLOGY IMAGE EXAM Routine 07/17/2023 12:00 AM SPLICING SUPERVISOR ECG Routine 07/04/2023 10:08 AM SPLICING SUPERVISOR 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) Other Group Home Current Drug Therapy CBC WITH DIFFERENTIAL, B Routine 07/04/2023 9:50 AM SPLICING SUPERVISOR 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) Other Group Home Current Drug Therapy THYROID FUNCTION CASCADE, S Routine 07/04/2023 9:49 AM SPLICING SUPERVISOR 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) Other Group Home Current Drug Therapy COMPREHENSIVE METABOLIC PANEL, S/P Routine 07/04/2023 9:49 AM SPLICING SUPERVISOR 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) Other Group Home Current Drug Therapy (TTE) 2D ECHO DOPPLER COLOR Routine 06/20/2023 1:28 PM SPLICING SUPERVISOR 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) Other College Admissions Counselor Current Drug Therapy TYPE AND SCREEN Routine 06/20/2023 12:01 PM SPLICING SUPERVISOR 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) THYROID FUNCTION CASCADE, S Routine 06/20/2023 12:01 PM SPLICING SUPERVISOR 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) COMPREHENSIVE METABOLIC PANEL, S/P Routine 06/20/2023 12:01 PM SPLICING SUPERVISOR 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) CBC WITH DIFFERENTIAL, B Routine 06/20/2023 12:01 PM SPLICING SUPERVISOR 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) ECG Routine 06/04/2023 4:02 PM SPLICING SUPERVISOR 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) INTERPRETATION OF OUTSIDE NM PET SCAN RAD - Routine (most inpatients and all outpatients) 06/04/2023 7:56 AM SPLICING SUPERVISOR 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) INTERPRETATION OF OUTSIDE MR EXTREMITY RAD - Routine (most inpatients and all outpatients) 06/04/2023 7:54 AM SPLICING SUPERVISOR 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) MR BRAIN WITHOUT AND WITH IV CONTRAST RAD - Routine (most inpatients and all outpatients) 05/29/2023 7:09 PM SPLICING SUPERVISOR 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) [place] T4 FREE Routine 05/29/2023 5:35 PM SPLICING SUPERVISOR THYROPEROXIDASE (TPO) ABS, S Routine 05/29/2023 5:35 PM SPLICING SUPERVISOR THYROID FUNCTION CASCADE, S Routine 05/29/2023 5:35 PM SPLICING SUPERVISOR 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) LACTATE DEHYDROGENASE (LD), S Routine 05/29/2023 5:35 PM SPLICING SUPERVISOR 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) COMPREHENSIVE METABOLIC PANEL, S/P Routine 05/29/2023 5:35 PM SPLICING SUPERVISOR 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) CBC WITH DIFFERENTIAL, B Routine 05/29/2023 5:35 PM SPLICING SUPERVISOR Melanoma Trunk (HCC) Secondary Malignant Neoplasm Bone [...] Months Results * Dermatopathology (07/17/2023 4:41 PM SPLICING SUPERVISOR) 07/22/2023 6:51 AM SPLICING SUPERVISOR PDRM Report electronically signed by Catalina Martell M.D. 07/22/2023 6:51 AM SPLICING SUPERVISOR PDRM Gross Description Received in formalin labeled with the patient's name, medical record number, and right shoulder-anterio r is a 0.5 cm in diameter whiteskin punch biopsy excised to a depth 0.5 cm. Eccentrically located on the skin surface is a 0.4 x 0.3 cm pale hansen-hansen, pigmented lesionwith well-circumscrib ed borders. ??Specimen is bisected and submitted entirely in cassette A1. ??Grossed by JONATHAN. 07/22/2023 6:51 AM SPLICING SUPERVISOR PDRM Interpretation FINAL DIAGNOSIS A. ??Right Shoulder - Anterior, Skin punch biopsy: Lentiginous compound nevus COMMENT Clinical note and photos reviewed. Diagnosis was made via digital imaging. A portion of the testing process was performed at [facility] site [id number]. 07/22/2023 6:51 AM SPLICING SUPERVISOR PDRM Skin (Right Shoulder - Anterior) 07/17/2023 4:40 PM SPLICING SUPERVISOR Anh Lee M.D. LAB PATH DERM OR DERABLES Performing Organization Address City/[facility]/ZIP Co de Phone Number [facility] [address] [place], [place] [address] PDRM [address] [place] [address] * Fluorescein Angiography - OU - Both Eyes (07/17/2023 12:55 PM SPLICING SUPERVISOR) Narrative OPHTHALMOLOGY IMAGING EXAM - 07/17/2023 7:03 PM SPLICING SUPERVISOR Right Eye Dye used is fluorescein. Fluorescein dose given is normal. Left Eye Dye used is fluorescein. Fluorescein dose given is normal. Notes Interpretation in note Phi Palm M.D., Ph.D. OPHTH PHOTOGRA PHY Performing Organization Address City/[facility]/ZIP Co de Phone Number OPHTHALMOLOGY IMAGING EXAM * [employer]-Ophthalmology Image Exam (07/17/2023 12:45 PM SPLICING SUPERVISOR) Only the most recent of2 resultswithin the time period is included. 07/17/2023 12:4 5 PM SPLICING SUPERVISOR Narrative IIMS - 07/17/2023 1:03 PM SPLICING SUPERVISOR This order has been created and auto-finalized to support the import of images acquired without order. The clinical documentation to support these images can be found on the encounter that produced images. Provider Not In System IMG NON RAD IMAGI NG PROCEDURES Performing Organization Address [facility] de Phone Number IIMS NA * Fundus Photos - OU - Both Eyes (07/17/2023 11:52 AM SPLICING SUPERVISOR) Narrative OPHTHALMOLOGY IMAGING EXAM - 07/17/2023 7:03 PM SPLICING SUPERVISOR Right Eye Field of view is standard view. Fundus photo type obtained is Color. Left Eye Field of view is standard view. Fundus photo type obtained is Color. Notes Interpretation in note Phi Palm M.D., Ph.D. OPHTH PHOTOGRA PHY Performing Organization Address [facility] de Phone Number OPHTHALMOLOGY IMAGING EXAM * Shoulder Dermoscopy-Dermatology Image Exam (07/17/2023 12:10 AM SPLICING SUPERVISOR) Only the most recent of2 resultswithin the time period is included. Narrative IIUT - 07/18/2023 7:21 AM SPLICING SUPERVISOR This order has been created and auto-finalized to support the import of images acquired without order. The clinical documentation to support these images can be found on the encounter that produced images. Provider Not In System IMG NON RAD IMAGI NG PROCEDURES Performing Organization Address [facility] de Phone Number IIMS NA * ECG 12 Lead (07/04/2023 10:08 AM SPLICING SUPERVISOR) Only the most recent of2 resultswithin the time period is included. Ventricular Rate ECG/Min 81 BPM MUSE [place] Interval 136 ms MUSE QRSD Interval 82 ms MUSE QT Interval 384 ms MUSE QTC Interval 446 ms MUSE P [place] 46 degrees MUSE R [place] 60 degrees MUSE T Wave [place] 19 degrees MUSE 07/04/2023 10:0 8 AM SPLICING SUPERVISOR 07/04/2023 10:10 AM SPLICING SUPERVISOR Impressions MUSE - 07/04/2023 10:10 AM SPLICING SUPERVISOR Normal sinus rhythm Normal ECG When compared with ECG of 04-JUN-2023 16:02, No significant change was found Reviewed by BREANNA Bustamante Narrative Procedure Note Edmundo Sam M.D. - 07/04/2023 IMPRESSION: Normal sinus rhythm Normal ECG When compared with ECG of 04-JUN-2023 16:02, No significant change was found Reviewed by BREANNA Bustamante Pérez Zuniga M.D., Ph.D. ECG [facility] MUSE NA * (ABNORMAL) CBC with Differential, Blood (07/04/2023 9:50 AM SPLICING SUPERVISOR) Only the most recent of3 resultswithin the time period is included. Hemoglobin 8.2(L) 11.6 - 15.0 g/dL 07/04/2023 10:56 AM SPLICING SUPERVISOR DHPM Hematocrit 26.3(L) 35.5 - 44.9 % 07/04/2023 10:56 AM SPLICING SUPERVISOR DHPM Erythrocytes 2.62(L) 3.92 - 5.13 x10(12)/L 07/04/2023 10:56 AM SPLICING SUPERVISOR DHPM MCV 100.4(H) 78.2 - 97.9 fL 07/04/2023 10:56 AM SPLICING SUPERVISOR DHPM RBC Distrib Width 17.5(H) 12.2 - 16.1 % 07/04/2023 10:56 AM SPLICING SUPERVISOR DHPM Platelet Count 701(H) 157 - 371 x10(9)/L 07/04/2023 10:56 AM SPLICING SUPERVISOR DHPM Leukocytes 9.9(H) 3.4 - 9.6 x10(9)/L 07/04/2023 10:56 AM SPLICING SUPERVISOR DHPM Neutrophils 5.27 1.56 - 6.45 x10(9)/L 07/04/2023 10:56 AM SPLICING SUPERVISOR DHPM Lymphocytes 3.81(H) 0.95 - 3.07 x10(9)/L 07/04/2023 10:56 AM SPLICING SUPERVISOR DHPM Monocytes 0.63 0.26 - 0.81 x10(9)/L 07/04/2023 10:56 AM SPLICING SUPERVISOR DHPM Eosinophils 0.10 0.03 - 0.48 x10(9)/L 07/04/2023 10:56 AM SPLICING SUPERVISOR DHPM Basophils 0.12(H) 0.01 - 0.08 x10(9)/L 07/04/2023 10:56 AM SPLICING SUPERVISOR DHPM Blood (Blood, Venous) 07/04/2023 9:50 AM SPLICING SUPERVISOR 07/04/2023 10:11 AM SPLICING SUPERVISOR Pérez Zuniga M.D., Ph.D. LAB BLOO D ADD-ON Performing Organization Address City/[facility] [place] [address] * Thyroid Function Nicholas (07/04/2023 9:49 AM SPLICING SUPERVISOR) Only the most recent of3 resultswithin the time period is included. Pathologist [facility] TSH, Sensitive 2.3 0.3 - 4.2 mIU/L 07/04/2023 11:05 AM SPLICING SUPERVISOR DTL Blood (Blood, Venous) 07/04/2023 9:49 AM SPLICING SUPERVISOR 07/04/2023 10:29 AM SPLICING SUPERVISOR Pérez Zuniga M.D., Ph.D. LAB BLOO D ADD-ON Performing Organization Address City/[facility]/ZIP Co de Phone Number [facility] [address] [place] [address] * (ABNORMAL) Comprehensive Metabolic Panel (07/04/2023 9:49 AM SPLICING SUPERVISOR) Only the most recent of3 resultswithin the time period is included. Pathologist [facility] Potassium, S 4.7 3.6 - 5.2 mmol/L 07/04/2023 11:05 AM SPLICING SUPERVISOR DTL Sodium, S 137 135 - 145 mmol/L 07/04/2023 11:05 AM SPLICING SUPERVISOR DTL Chloride, S 103 98 - 107 mmol/L 07/04/2023 11:05 AM SPLICING SUPERVISOR DTL Bicarbonate, S 24 22 - 29 mmol/L 07/04/2023 11:05 AM SPLICING SUPERVISOR DTL Anion Gap 10 7 - 15 07/04/2023 11:05 AM SPLICING SUPERVISOR DTL BUN (Blood Urea Nitrogen), S 22(H) 6 - 21 mg/dL 07/04/2023 11:05 AM SPLICING SUPERVISOR DTL Creatinine 0.90 0.59 - 1.04 mg/dL 07/04/2023 11:05 AM SPLICING SUPERVISOR DTL Estimated GFR (eGFR) 80 >=60 mL/min/BS A 07/04/2023 11:05 AM SPLICING SUPERVISOR DTL Comment: Estimated GFR calculated using the 2020 CKD_EPI creatinine equation. Calcium, Total, S 9.9 8.6 - 10.0 mg/dL 07/04/2023 11:05 AM SPLICING SUPERVISOR DTL Glucose, S 98 70 - 140 mg/dL 07/04/2023 11:05 AM SPLICING SUPERVISOR DTL Protein, Total, S 7.7 6.3 - 7.9 g/dL 07/04/2023 11:05 AM SPLICING SUPERVISOR DTL Albumin, S 4.3 3.5 - 5.0 g/dL 07/04/2023 11:05 AM SPLICING SUPERVISOR DTL Aspartate Aminotransferase (AST), S 26 8 - 43 U/L 07/04/2023 11:05 AM SPLICING SUPERVISOR DTL Alkaline Phosphatase, S 229(H) 35 - 104 U/L 07/04/2023 11:05 AM SPLICING SUPERVISOR DTL Alanine Aminotransferase (ALT), S 24 7 - 45 U/L 07/04/2023 11:05 AM SPLICING SUPERVISOR DTL Bilirubin, Total, S 0.2 0.0 - 1.2 mg/dL 07/04/2023 11:05 AM SPLICING SUPERVISOR DTL Blood (Blood, Venous) 07/04/2023 9:49 AM SPLICING SUPERVISOR 07/04/2023 10:29 AM SPLICING SUPERVISOR Pérez Zuniga M.D., Ph.D. LAB BLOO D ADD-ON [facility] [address] [place] [address], [place] DTL [facility] [address] [place] [address] * (TTE) 2D ECHO DOPPLER COLOR (06/20/2023 1:28 PM SPLICING SUPERVISOR) Ejection Fraction 65 MC CV EIMS Mid-Ascending Aorta 31 MC CV [...] Laterality Modality Other 06/20/2023 12:3 4 PM SPLICING SUPERVISOR Impressions 06/20/2023 1:42 PM SPLICING SUPERVISOR There are no previous [facility] echocardiograms available for comparison. LEFT VENTRICLE:Normal left [...] the Order-Level Documents. Narrative 06/20/2023 1:42 PM SPLICING SUPERVISOR For the complete report, see the Order-Level [...] pericardial effusion. Findings There are no previous [facility] echocardiograms available forcomparison. LEFT VENTRICLE:Normal left ventricular [...] (with Reflex Antibody ID) (06/20/2023 12:01 PM SPLICING SUPERVISOR) ABORh O Neg Not applicable 06/20/2023 1:48 PM SPLICING SUPERVISOR ETRM Antibody Screen Negative Negative 06/20/2023 2:00 PM SPLICING SUPERVISOR ETRM Type & Screen Expiration 06/23/2023 23:59 06/20/2023 1:48 PM SPLICING SUPERVISOR ETRM Testing Location Bee DEFAULT 06/20/2023 12:53 PM SPLICING SUPERVISOR ETRM Blood (Blood, Venous) 06/20/2023 12:01 PM SPLICING SUPERVISOR 06/20/2023 12:53 PM SPLICING SUPERVISOR Pérez Zuniga M.D., Ph.D. LAB BLOO D BANK TEST ORDERABLES [facility] [address] [place] [address], [place] ETRM [facility] [address] [place] [address] * Interpretation of Outside NM PET Scan (06/04/2023 7:56 AM SPLICING SUPERVISOR) Anatomical Region Laterality Modality Nuclear Medicine PET RST LOS , Nuclear Medicine ARZ LOS, Nuclear Medicine FLA LOS, Nuclear Medicine, Other, Neuroradiology ARZ LOS, Neuroradiology FLA LOS, Neuroradiology RST LOS, Body N/A Nuclear Medicine 06/10/2023 8:28 AM SPLICING SUPERVISOR Impressions 06/10/2023 10:24 AM SPLICING SUPERVISOR 1. Large intensely hypermetabolic mixed solid and [...] of the report. Narrative 06/10/2023 10:24 AM SPLICING SUPERVISOR EXAM: ??INTERPRETATION OF OUTSIDE NM PET SCAN [...] of Outside MR Extremity (06/04/2023 7:54 AM SPLICING SUPERVISOR) Anatomical Region Laterality Modality Musculoskeletal RST LOS, Mus culoskeletal ARZ LOS, Muskuloskeletal FLA LOS, Musculoskeletal, Other N/A Magnet ic Resonance 06/04/2023 11:3 3 AM SPLICING SUPERVISOR Impressions 06/04/2023 11:45 AM SPLICING SUPERVISOR There are several 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 The largest is seen proximally extending off of the proximal qrray-iw-bdfn. This involves the intertrochanteric left femur extending [...] diaphysis, which extends off of the proximal wnrwf-ek-zbqd (series 3 and 4 image 15). The lesions right around the knee were not present on the MRI from October 2014 and correlate with areas of hypermetabolic activity on the recent PET CT. Findings are compatible with recent biopsy results of metastatic melanoma. Large yvmbs-uz-xhnn coronal and axial images include the right femur, which demonstrates numerous large intramedullary lesions throughout the right femoral diaphysis as well as the proximal right tibial diaphysis, as well. No definite discrete soft tissue masses within either thigh. Narrative 06/04/2023 11:45 AM SPLICING SUPERVISOR EXAM: ??INTERPRETATION OF OUTSIDE MR LEFT FEMUR [...] is seen proximally extending off of the foncwtavjkqlg-ck-iphe. This involves the intertrochanteric left femur extendingdistally [...] tibial diaphysis, which extends offof the proximal rrbwj-or-vmxz (series 3 and 4 image 15). The lesions right around the knee were not present on the MRIfrom October 2014 and correlate with areas of hypermetabolic activity on therecent PET CT. Findings are compatible with recent biopsy results ofmetastatic melanoma. Large ubmwn-ho-fmmg coronal and axial images include the right femur, whichdemonstrates numerous large intramedullary lesions throughout the rightfemoral diaphysis as well as the proximal right tibial diaphysis, as well.No definite discrete soft tissue masses within either thigh. Pérez Zuniga M.D., Ph.D. IMG MRI PROCEDURES * MR Brain without and with IV Contrast (05/29/2023 7:09 PM SPLICING SUPERVISOR) Anatomical Region Laterality Modality Head, Brain, Neuroradiology RST [facility], Neuroradiology [facility], Neuroradiology [facility] N/A Magnetic Resonance 05/30/2023 10:1 9 AM SPLICING SUPERVISOR Impressions 05/30/2023 10:38 AM SPLICING SUPERVISOR Multifocal subcentimeter intracranial metastases. No significant associated mass effect or hydrocephalus. Narrative 05/30/2023 10:38 AM SPLICING SUPERVISOR EXAM: MR BRAIN WITHOUT AND WITH IV [...] venous anomaly. Procedure Note Antonio Wood M.D., [facility] - 05/30/2023 EXAM: MR BRAIN WITHOUT AND [...] significantassociated mass effect or hydrocephalus. Naida Mejia P.A.-C., M.S. IMG MRI PROCEDURES * T4 (Thyroxine), Free, Serum (05/29/2023 5:35 PM SPLICING SUPERVISOR) T4 (Thyroxine), Free, S 1.0 0.9 - 1.7 ng/dL 05/29/2023 7:06 PM SPLICING SUPERVISOR DTL Blood 05/29/2023 5:35 PM SPLICING SUPERVISOR 05/29/2023 6:09 PM SPLICING SUPERVISOR Naida Mejia P.A.-C., M.S. LAB BLOO D ADD-ON [facility] [address] [place] [address], [facility] DTL [facility] [place] [address] * Thyroperoxidase (TPO) Antibodies (05/29/2023 5:35 PM SPLICING SUPERVISOR) Thyroperoxidase Ab, S 15.1 <34.0 IU/mL 05/29/2023 7:06 PM SPLICING SUPERVISOR DTL Blood 05/29/2023 5:35 PM SPLICING SUPERVISOR 05/29/2023 6:09 PM SPLICING SUPERVISOR Naida Mejia P.A.-C., M.S. LAB BLOO D ADD-ON Performing Organization Address City/[facility]/[place] [address] * (ABNORMAL) LD (Lactate Dehydrogenase) (05/29/2023 5:35 PM SPLICING SUPERVISOR) Lactate Dehydrogenase (LD), S 439(H) 122 - 222 U/L 05/29/2023 6:46 PM SPLICING SUPERVISOR DTL Blood (Blood, Venous) 05/29/2023 5:35 PM SPLICING SUPERVISOR 05/29/2023 6:09 PM SPLICING SUPERVISOR Naida Mejia P.A.-C., M.S. LAB BLOO D NON ADD-ON Performing Organization Address City/[facility]/[place] [address] * PET [facility]_PET_CAP_C (Adult)-Outside NM Pet (05/15/2023 11:00 AM CDT) Narrative IIMS - 05/27/2023 12:26 PM SPLICING SUPERVISOR This order has been created and auto-finalized to support the import of outside images. If available, original interpretation can be found on the Media Tab in Chart Review, in Document Viewer, or as an image in [email or web address]. If a re-interpretation or overread is required please follow defined workflow. ?? Provider Not In System [facility] PROCEDURES IIMS NA * BRAF/KIT Mutation Analysis, Next-Generation Sequencing, Tumor (05/13/2023 8:27 AM CDT) Result Provided diagnosis: metastatic melanoma involving left femur The following CLINICALLY RELEVANT VARIANT was detected: Gene: BRAF DNA Change: c.1799T>A (Exon 15) Amino Acid Change: p.V600E (Epm494Xqb) Variant Allele Frequency: 49.9% No other reportable sequence variants were detected within the analyzed regions of the tested genes listed in the method description. 06/24/2023 1:13 PM SPLICING SUPERVISOR DTL Additional Information CLINICAL TRIALS Possible clinical trials of benefit for this patient can be found at the following sites: 1) ClinicalTrials.gov: www.clinicaltrials. gov/ct2/search/adva nced 2) [facility]: www.[facility]/resear ch/clinical-trials/ 3) National Cancer [place]: www.cancer.gov/clin icaltrials/search REFERENCE TRANSCRIPT Sequence variant nomenclature is based on the following RefSeq accession number (build GRCh37 (hg19)):BRAF [id number]. 06/24/2023 1:13 PM SPLICING SUPERVISOR DTL Specimen Tissue, Tumor 06/24/2023 1:13 PM SPLICING SUPERVISOR DTL Tissue ID [id number] 06/24/2023 1:13 PM SPLICING SUPERVISOR DTL Method Microscopic examination is performed by [...] and additional information on this test, see www.[employer]. GRAVIDI (Test ID BRFKT). 06/24/2023 1:13 PM SPLICING SUPERVISOR DTL Disclaimer This test cannot differentiate between [...] of heterozygosity) and sequencing artifact/misalignme nt [PMID: 44859771, PMID: [id number]]. Rare polymorphisms may be present that could [...] developed and its performance characteristics determined by [facility] in a manner consistent with CLIA requirements. This test has not been cleared or approved by the U.S. Food and Drug Administration. 06/24/2023 1:13 PM SPLICING SUPERVISOR DTL Released By Lexy Lang M.D. 06/24/2023 1:13 PM SPLICING SUPERVISOR DTL Interpretation BRAF c.1799T>A (p.V600E) (Exon 15) BRAF encodes the signaling protein Braf, which is downstream of Eduardo and activates the MAPK pathway. Braf signaling is critically involved in the processes of cell division and differentiation. BRAF activating mutations occur predominantly at a single location (V600E). BRAF activating mutations or amplification have been reported to result in uncontrolled cell growth and tumorigenesis [PMID:71363783, PMID:23409467]. Clinically approved targeted therapy is available for patients with unresectable or metastatic solid tumors with a BRAF V600E mutation [fda.gov/drugs]. 06/24/2023 1:13 PM SPLICING SUPERVISOR DTL Tissue (Bone) 05/13/2023 8:2 7 AM CDT 06/16/2023 1:57 PM SPLICING SUPERVISOR Naida Mejia P.A.-C. M.S. LAB GENE TIC TESTING [facility] [address] [place] [address], [facility] DTL [address] [place] [address] * Pathology Review of Outside Material (05/13/2023 1:26 AM CDT) Pathologist [facility] 06/10/2023 3:51 PM SPLICING SUPERVISOR DTL Participated in the Interpretation Yann Dixon M.D.-Pathology Fellow 06/10/2023 3:51 PM SPLICING SUPERVISOR DTL Report electronically signed by Jose Willis M.D. I verify that I have examined all relevant slides/materials for the specimen(s) and rendered or confirmed the diagnosis. 06/10/2023 3:51 PM SPLICING SUPERVISOR DTL Material Received A. [id number]: Left femur ? 22 stained slides, 20 unstained slides 06/10/2023 3:51 PM SPLICING SUPERVISOR DTL Addendum Genetic testing for BRAF/KIT Mutation Analysis, Tumor (BRFKT) ??will be performed and resulted in the patient's medical record. Signed by Cl Edwards M.D. 06/14/2023 10:19 AM 06/14/2023 10:19 AM SPLICING SUPERVISOR DTL Comment:REVISED RESULTS Interpretation FINAL DIAGNOSIS Left femur mass, biopsy ([id number]; 05/13/2023): Metastatic melanoma, diffusely positive for BRAF [...] not hesitate to reach me by calling [facility] at [phone]. 06/14/2023 10:19 AM SPLICING SUPERVISOR DTL Varies 05/13/2023 1:26 AM CDT 06/05/2023 7:18 PM SPLICING SUPERVISOR Naida Mejia P.A.-C., M.S. LAB SURG PATH ORDERABLES Performing Organization Address City/[facility] Co de Phone Number [facility] [address] [place] [address], [facility] DTL [address] [place] [address] * XR CHEST 2 VIEWS-Outside Chest Xray (05/09/2023 1:45 PM CDT) Narrative IIMS - 05/27/2023 12:20 PM SPLICING SUPERVISOR This order has been created and auto-finalized to support the import of outside images. If available, original interpretation can be found on the Media Tab in Chart Review, in Document Viewer, or as an image in [employer]READS. If a re-interpretation or overread is required please follow defined workflow. ?? Provider Not In System IMG DIAGNOSTIC IM AGING PROCEDURES Performing Organization Address City/[facility]/ZIP Co de Phone Number [facility] NA * MR FEMUR LT WO/W CON-Outside [...] Not In System IMG MRI PROCEDURE S IIMS NA from Last 3 Months Additional Health Concerns Infection Onset Date Last Indicated Protective Environment 06/04/2023 3 Care Teams Car Top Bolter Relationship Specialty Start Date End Date Elsewhere, Pcp PCP - General Family Medicine 06/17/23
--- OUTSIDE RECORDS SUMMARY | 2023-08-08 18:03 | XMS_ITS | Encounter Summary ---
Author Name Unknown Organization [facility] Address [address] [place] [id number] Care Team Providers Care Metal Ceiling Builder Name Role Phone Elsewhere, Pcp Primary Care Provider Unavailabl e Reason for Referral * Outpatient (Routine) - Authorized Specialty Diagnoses / Procedures Referred By Contac t Referred To Contact Palliative Medicine Diagnoses Palliative Care Serenity Kelsey P.A.-C. [address] [place] [phone] [facility] Referral ID Status Reason Start Date Expiration Date V isits Requested Visits Authorized [id number] Authorized 07/26/2023 07/25/2026 1 1 Scheduling Instructions Please schedule for 08/21 at 1015 via video. ASSEMBLER Reason for Visit * Outpatient (Routine) - Closed Specialty Diagnoses / Procedures Referred By Contac t Referred To Contact Palliative Medicine Diagnoses Palliative Care Marija Olivas, GAIL, C.N.P., M.S.N. [address] [place] [phone] [facility] Referral ID Status Reason Start Date Expiration Date Visits Re quested Visits Authorized [id number] Closed 07/16/2023 07/15/2026 1 1 Encounter Details Date Type Department Care Team (Late st Contact Info) Description 07/26/2023 1:15 PM LINK ASSEMBLER Telemedicine Department of Palliative Care in [place], [place] [address] [place] [phone] Marija Olivas APRN, C.N.P., M.S.N. [address] [place] [address] Meka Rinaldi D.N.P., R.N., [facility] Palliative Care Social History Tobacco Use Types Packs/Day Years Used Date Smoking Tobacco: Never Passive Smoke Exposure: Never Smokeless Tobacco: Never Alcohol Use Standard Drinks/Week Comments Not Currently 6 (1 standard drink = 0.6 oz pur e alcohol) Occasional [facility] Utilities Answer Date Recorded In the past 12 months has Shake, gas, oil, or water [employer] threatened to shut off services in your [...] your living situation today? I have a [facility] place to live 07/10/2023 Sex and Gender Information Value Date Recorded Sex Assigned at Female 05/31/2023 8:26 AM LINK ASSEMBLER Gender Identity Female 05/31/2023 8:26 AM LINK ASSEMBLER Sexual Orientation Straight 05/31/2023 8: 26 AM LINK ASSEMBLER documented as of this encounter Progress Notes * Meka Rinaldi D.N.P., R.N., [facility] - 07/26/2023 1:15 PM CST Palliative Care Clinic: Resilient Living Program, visit # 1 Visit Type: telemedicine live video visit PATIENT: Tony Cota; 48 y.o.female DATE OF SERVICE: 07/26/2023 CHIEF COMPLAINT/REASON FOR VISIT Participation in the Resilient Living Program SUBJECTIVE HISTORY OF PRESENT ILLNESS Tony Cota is a 48 y.o. female with history of metastatic melanoma who is followed in the Palliative Care Clinic for symptom management. The patient has identified the need for ongoing stress management and resilience training in the setting of serious illness. Others present during this visit: N/A Distress Thermometer score: 2 ESAS No Pain = 0 and Worst Pain = 10: 2 No Fatigue = 0 and Worst Fatigue = 10: 3 No Nausea = 0 and Worst Nausea = 10: 1 No Depression = 0 and Worst Depression = 10: 1 No Anxiety = 0 and Worst Anxiety = 10: 3 No Drowsiness = 0 and Worst Drowsiness = 10 : 0 No Shortness of Breath = 0 and Worst Shortness of Breath = 10: 0 Best Appetite = 0 and Worst Appetite = 10: 4 Best Feeling of Well Being = 0 and Worst Feeling of Well Being = 10: 4 Best Sleep = 0 and Worst Sleep = 10: 4 No Financial Distress (Distress/suffering experienced secondary to financial issues) = 0 and Worst Financial Distress = 10: 2 No Spiritual Pain (Pain deep in your soul/being that is not physical) = 0 and Worst Spiritual Pain = 10: 2 Social History Tony (pronounced Paysha) identifies herself as a , 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 She lives in [place] with her , Francis, and their 3 kids (a daughter who is a senior in highschool, daughterwho is a freshman in highschool and a 6th grade son), and dog. 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 Tony enjoys morning walks with her dog, family game nights, and spending time watching her kids attheir various activities (basketball, ski, soccer, track). Tony shares she has been on treatment for about a month and a half now. She has found that with this, she has experienced slightly more fatigue, muscle soreness, and reduction in strength, however upon reflecting back to pre- treatment, shares I feel almost back to myself. She describes herself as a naturally optimistic, glass half full person, seeing the good first. She also describes herself as goal oriented. Has been experiencing anxiety that comes and goes, specifically as it relates to the uncertainty, or the crawley that accompanies a cancer diagnosis. Tony has started a medication atnight to help with sleep and has found benefit from this. Current stressors include: cancer diagnosis, specifically where to park the fear and the what ifs that arise. She is hopeful to find strategies within this program to help her with the constant ness that accompanies a serious illness diagnosis. Tony is presently using daily intentional walks, gratitude practices, and engagement with family and work to help manage stress. This module's content on gratitude served as a reminder of practices she has engaged in previously such as gratitude journaling. The predominant stress trigger identified by the patient: - demand/resource imbalance, (where far more is expected of a person than they can handle - lack of control - lack of meaning OBJECTIVE Comfortable. In no acute distress. Tony was able to complete Module 1 of the online portion of this program prior to today's visit. ASSESSMENT / PLAN Resilient Living Program Reviewed the Resilient Living Program: This is a mindfulness-based program designed to help build resilience - the ability to recover from adversity. The tenants of this program are backed by research demonstrating the following outcomes: decreased stress, enhanced resiliency, and increased health promoting behaviors. All human beings have a neural predisposition to excessive mind wandering, rumination, and paying attention to threat at the exclusion of nathan - all part of the brain's default mode. Humans spend 50-80% of their time in this brain mode which is correlated with higher levels of unhappiness. The goal of this program is that with adherence over time, a person's default way of think ing will be replaced by higher grounding principles. Reviewed Module I concepts: Brain 101: A work in progress Brain vulnerabilities: Focus, Fatigue, Fear Attention sumps Putting in all together: take charge of the brain Gratitude practice Tony was able to recognize current unhelpful patterns of thinking and focus including attention sumps and spiraling what if type thoughts. Tony found the following ideas and concepts helpful: strengthening the muscles in our brain that help keep us engaged in the present moment RECOMMENDATION/PLAN: From Module I Implement Morning Gratitude: Wake up every morning and begin each day practicing a gratitude. This involves visualizing the faces of the people you deeply care for and appreciate in your mind and sending them silent gratitude. Implement RUM (Rest, Uplifting emotions, Meaning) moments: The brain is hungry for rest, uplifting emotions, and meaning as ways to energize and stave off stress. [facility] plans to work on the following goals prior to our next meeting: Continue morning gratitude practice (setting an alarm just prior to morning chemo medications to create a habit) Complete the entirety of course modules-[facility] is looking forward to modules 2 and 4 Re-engage in journaling, a previously meaningful and uplifting activity in Tony's life. Next Resilient Living Meetin/7 at 10:15 via video Meka Rinaldi RNbusiness solutions architect Department of Palliative Medicine [facility] I spent 60 minutes face to face and non-face to face caring for the patient today. ASSEMBLER documented in this encounter Plan of Treatment Upcoming Encounters Date Type Department Care Team (Late st Contact Info) Description 08/19/2023 6:40 AM LINK ASSEMBLER Appointment Department of Laboratory Medicine and Pathology, [facility], in [place], [place] [address] [place] [address] Pérez Zuniga M.D., Ph.D. [address] [place] [phone] 08/19/2023 7:00 AM LINK ASSEMBLER Ancillary Procedure Department of Cardiovascular Medicine in [address] [phone] Pérez Zuniga M.D., Ph.D. [address] [place] [phone] 08/19/2023 9:00 AM LINK ASSEMBLER Appointment Department of Radiology, [facility], in [address] [phone] Pérez Zuniga M.D., Ph.D. [address] [place] [phone] 08/19/2023 3:40 PM LINK ASSEMBLER Office Visit Department of Oncology in [address] [phone] Zhane Granados, MUSEUM GUIDE, C.N.P. [address] [place] [phone] 08/21/2023 10:15 AM LINK ASSEMBLER Clinical Support Department of Palliative Care in [address] [phone] Serenity Kelsey, P.A.-C. [address] [place] [phone] Meka Rinaldi D.N.P., R.N., [facility] Scheduled Referrals Name Type Priority Associated Diagnoses Order Schedule Palliative Care nurse therapy visit (clinic) Outpatient Referral Routine Palliative Care Expected: 08/21/2023, Expires: 10/24/2024 documented as of this encounter Visit Diagnoses Diagnosis Palliative Care documented in this encounter Additional Health Concerns Infection Onset Date Last Indicated Resolved Time Protective Environment 06/04/2023 06/04/2023 documented as of this encounter Care Teams Metal Ceiling Builder Relationship Specialty Start Date End Date Elsewhere, Pcp PCP - General Family Medicine 06/17/23 documented as of this encounter
--- OUTSIDE RECORDS SUMMARY | 2023-08-08 18:03 | XMS_ITS | Encounter Summary ---
Author Name Unknown Organization [facility] Address [address] [place] [address] Care Team Providers Care Replanting Machine Crew Name Role Phone Elsewhere, Pcp Primary Care Provider Unavailabl e Reason for Referral * Outpatient (Routine) - Authorized Specialty Diagnoses / Procedures Referred By Mikki feliciano Referred To Contact Palliative Valentine Singh M.D., M.S. [address] [place] [phone] [facility] Referral ID Status Reason Start Date Expiration Date V isits Requested Visits Authorized [id number] Authorized 07/29/2023 07/28/2026 1 1 Scheduling Instructions 4-8 weeks, with Dr. Kelsey or if needed based on date, ok for another provider HMAN/CRANE OPERATOR Reason for Visit * Outpatient (Routine) - Closed Specialty Diagnoses / Procedures Referred By Mikki feliciano Referred To Contact Palliative Valentine Singh M.D., M.S. [address] [place] [phone] [facility] Referral ID Status Reason Start Date Expiration Date Visits Re quested Visits Authorized [id number] Closed 07/01/2023 06/30/2026 1 1 Encounter Details Date Type Department Care Team (Late st Contact Info) Description 07/29/2023 10:15 AM WINCHMAN/CRANE OPERATOR Telemedicine Department of Palliative Care in [place], [place] 200 [place] [address] Valentine Kelsey M.D., M.S. 200 [place] [address] Melanoma Trunk (HCC) (Primary Dx); Secondary Malignant Neoplasm Bone (HCC); Pain Cancer Associated; Palliative Care Social History Tobacco Use Types Packs/Day Years Used Date Smoking Tobacco: Never Passive Smoke Exposure: Never Smokeless Tobacco: Never Alcohol Use Standard Drinks/Week Comments Not Currently 6 (1 standard drink = 0.6 oz pur e alcohol) Occasional [facility] Utilities Answer Date Recorded In the past 12 months has th e electric, gas, oil, or water company [...] your living situation today? I have a [facility] place to live 07/10/2023 Sex and Gender Information Value Date Recorded Sex Assigned at Female 05/31/2023 8:26 AM WINCHMAN/CRANE OPERATOR Gender Identity Female 05/31/2023 8:26 AM WINCHMAN/CRANE OPERATOR Sexual Orientation Straight 05/31/2023 8: 26 AM WINCHMAN/CRANE OPERATOR documented as of this encounter Progress Notes * Valentine Kelsey M.D., M.S. - 07/29/2023 10:15 AM CST SUBJECTIVE CHIEF COMPLAINT/REASON FOR VISIT Tony Cota is a 47 y.o. 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 established patient visit Visit conducted via virtual visit. The following person/people were also present during the discussion: None Medical Record review was conducted prior to the virtual visit. Date of last in-person clinic visit: 06/21/23 Interval History: Tony had good quality time with her family over the holidays. She notes some increased anxiety over upcoming scans, although feels hopeful they will show a good treatment response given significant improvements in pain and functionally in her left arm movement. On the video today, she demonstratesfull range of motion of her left shoulder/arm. Since last visit, Tony attempted to stop utilizing the oxycodone 5mg PO; however, after stopping, she developed worsening pain in the evening and has been taking twice a day morning and evening (daily OME = 15). She denies significant other symptom concerns at this time. Tony's main concern is recurrence of symptoms of fever and nausea with future dexamethasone wean. [place] Scores Who completed this form?: Patient No Pain = 0 and Worst Pain = 10: 1 No Fatigue = 0 and Worst Fatigue = 10: 1 No Nausea = 0 and Worst Nausea = 10: 2 No Depression = 0 and Worst Depression = 10: 0 No Anxiety = 0 and Worst Anxiety = 10: 2 No Drowsiness = 0 and Worst Drowsiness = 10 : 0 No Shortness of Breath = 0 and Worst Shortness of Breath = 10: 0 Best Appetite = 0 and Worst Appetite = 10: 2 Best Feeling of Well Being = 0 and Worst Feeling of Well Being = 10: 5 Best Sleep = 0 and Worst Sleep = 10: 5 No Financial Distress (Distress/suffering experienced secondary to financial issues) = 0 and Worst Financial Distress = 10: 3 No Spiritual Pain (Pain deep in your soul/being that is not physical) = 0 and Worst Spiritual Pain = 10: 0 OBJECTIVE PHYSICAL EXAM General: Alert, appropriately interactive over the phone, no acute distress Lungs: non-labored breathing pattern during conversation Psychiatric: Oriented X 3, intact recent and remote memory, judgment and insight, congruent mood and affect. LABS CMP 07/04/23: Potassium, S 3.6 - 5.2 mmol/L 4.7 4.0 3.7 Sodium, S 135 - 145 mmol/L 137 137 134 Low Chloride, S 98 - 107 mmol/L 103 101 97 Low Bicarbonate, S 22 - 29 mmol/L 24 20 Low 20 Low Anion Gap 7 - 15 10 16 High 17 High BUN (Blood Urea Nitrogen), S 6 - 21 mg/dL 22 High 27 High 28 High Creatinine 0.59 - 1.04 mg/dL 0.90 0.94 1.56 High Estimated GFR (eGFR) >=60 mL/min/BSA 80 76 CM 42 Low CM Comment: Estimated GFR calculated using the 2020 CKD_EPI creatinine equation. Calcium, Total, S 8.6 - 10.0 mg/dL 9.9 9.7 9.0 Glucose, S 70 - 140 mg/dL 98 101 137 Protein, Total, S 6.3 - 7.9 g/dL 7.7 7.7 6.7 Albumin, S 3.5 - 5.0 g/dL 4.3 4.1 3.4 Low Aspartate Aminotransferase (AST), S 8 - 43 U/L 26 26 21 Alkaline Phosphatase, S 35 - 104 U/L 229 High 277 High 132 High Alanine Aminotransferase (ALT), S 7 - 45 U/L 24 22 9 Bilirubin, Total, S 0.0 - 1.2 mg/dL 0.2 0.2 0.3 ASSESSMENT / PLAN Tony Cota is a 47 y.o. 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 Cancer-Associated Pain: Significantly improving with treatment with now full ROM in LUE, likely reflecting a positive treatment response. Would plan to discard MS richmond given improvements in pain. Tony may trial stopping the morning oxycodone if desired given the pain was more prominent at night;also discussed not driving for 4 hours after oxycodone. However, she could drive in the afternoon. - Continue acetaminophen, can utilize up to 1000mg 3x/day - Continue oxycodone 5mg PO q4h PRN; currently utilizing twice a day - Would dispose of MS [place] at this time Opioid Summary Opioid Need: This patient has a condition that necessitates treatment with an opioid for longer than 7 days. Additionally, a non-opioid alternative was not appropriate or inadequate to manage patient???s pain. Diagnosis related to controlled substance prescribing: Melanoma [place] OIL HEATER OPERATOR Review: We have reviewed the patient's record in the [place] prescription monitoring program 07/29/2023. Opioid Toxicity Review: We have reviewed the risks of opioid therapy and completed an assessment oftoxicities. Opioid Aberrant Use Concerns: None Recommended Opioid Regimen as of 07/29/2023.: as above Current Oral Morphine Equivalents (OME/MME): 15 OME/day 2. Nausea: Currently managed with daily zofran 8mg; prescription provided with refills. 3. Considerations for Dexamethasone Discontinuation: As she will be further out with the next plan for dexamethasone discontinuation, are hopeful she will not have the same symptoms. However, we discussed that when the dexamethasone is discontinued, could have ibuprofen available for fevers in addition to the acetaminophen and consider scheduling the ondansetron more frequently if needed (taking daily) or add olanzapine scheduled if needed. Follow up visit: 4-6 weeks Consult conducted via real-time audio/video technology by Valentine Kelsey M.D., M.S. in [facility] to the patient in Patient's Home Valentine Kelsey M.D., M.S. HMAN/CRANE OPERATOR documented in this encounter Plan of Treatment Upcoming Encounters Date Type Department Care Team (Late st Contact Info) Description 08/19/2023 6:40 AM WINCHMAN/CRANE OPERATOR Appointment Department of Laboratory Medicine and Pathology, [facility], in [place], [place] [address] [place] [address] Pérez Zuniga M.D., Ph.D. [address] [place] [phone] 08/19/2023 7:00 AM WINCHMAN/CRANE OPERATOR Ancillary Procedure Department of Cardiovascular Medicine in [place], [place] [address] [place] [phone] Pérez Zuniga M.D., Ph.D. [address] [place] [phone] 08/19/2023 9:00 AM WINCHMAN/CRANE OPERATOR Appointment Department of Radiology, [facility], in [place], [place] [address] [place] [phone] Pérez Zuniga M.D., Ph.D. [address] [place] [phone] 08/19/2023 3:40 PM WINCHMAN/CRANE OPERATOR Office Visit Department of Oncology in [place], [place] [address] [place] [phone] Zhane Granados, GAIL, C.N.P. [address] [place] [phone] 08/21/2023 10:15 AM WINCHMAN/CRANE OPERATOR Clinical Support Department of Palliative Care in [place], [place] [address] [place] [phone] Serenity Kelsey, P.A.-C. [address] [place] [phone] Meka Rinaldi D.N.P., R.N., [facility] Scheduled Referrals Name Type Priority Associated Diagnoses Order Schedule Palliative Care office visit (clinic) Outpatient Referral Routine Expected: 09/06/2023, Expires: 10/27/2024 documented as of this encounter Visit Diagnoses Diagnosis Melanoma Trunk (HCC)- Primary Secondary Malignant Neoplasm Bone (HCC) Pain Cancer Associated Palliative Care documented in this encounter Additional Health Concerns Infection Onset Date Last Indicated Resolved Time Protective Environment 06/04/2023 06/04/2023 documented as of this encounter Care Teams Replanting Machine Crew Relationship Specialty Start Date End Date Elsewhere, Pcp PCP - General Family Medicine 06/17/23 documented as of this encounter
--- OUTSIDE RECORDS SUMMARY | 2023-08-08 18:03 | XMS_ITS ---
Author Name Unknown Organization [facility] Address [address] [place] [address] Care Team Providers Care J2Ee Software Engineer Name Role Phone Unavailable Unavailable Unavailable Surgery Details Not on file Complications Check Surgery Details section. Procedure Estimated Blood Loss Check Surgery Details section. Procedure Findings Check Surgery Details section. Procedure Specimens Taken Check Surgery Details section.
--- OUTSIDE RECORDS SUMMARY | 2023-08-08 18:03 | XMS_ITS | Encounter Summary ---
Author Name Unknown Organization [facility] Address [address] [place] [address] Care Team Providers Care Harmonic Analyst Name Role Phone Elsewhere, Pcp Primary Care Provider Unavailabl e Encounter Details Date Type Department Care Team (Late st Contact Info) Description 08/08/2023 Clinical Communication Department of Oncology in [place], [place] [address] [place] [phone] Cherelle Sanabria M.D. [address] [place] [phone] Social History Tobacco Use Types Packs/Day Years Used Date Smoking Tobacco: Never Passive Smoke Exposure: Never Smokeless Tobacco: Never Alcohol Use Standard Drinks/Week Comments Not Currently 6 (1 standard drink = 0.6 oz pur e alcohol) Occasional C Utilities Answer Date Recorded In the past 12 months has [employer] electric, gas, oil, or water company threatened [...] your living situation today? I have a [facility] place to live 07/10/2023 Sex and Gender Information Value Date Recorded Sex Assigned at Female 05/31/2023 8:26 AM MOVIE OPERATOR Gender Identity Female 05/31/2023 8:26 AM MOVIE OPERATOR Sexual Orientation Straight 05/31/2023 8: 26 AM MOVIE OPERATOR documented as of this encounter Miscellaneous Notes * Telephone Encounter - Cherelle Sanabria M.D. - 08/08/2023 12:45 AM MOVIE OPERATOR Oncology Shipping Specialist Received a call from Tony Cota, 48 yo with history of metastatic malignant melanoma on DT. Tonight she was not feeling well however she thought it was just secondary to anxiety with appointments tomorrow and life events. She tried to sleep but could not. She then began feeling cold with chills and got under the blankets. She began to feel her heart racing and had difficulty catching her breath for about an hour. She laid by the fan but as she felt hot, she checked her temperature and it was 104F. I see she previously had a high fever when trying to wean off of dexamethasone, however is currently on baseline dose of 2 mg BID and has not missed any doses. She also feels this is different than that event. Furthermore, her son has had a fever for 2 days and she has been around him. She endorses a headache. No chest pain, cough, or other notable symptoms, just generally feeling unwell. Explained that her fevers could be a side effect of medications, however given her recent sick contact,general malaise/headache, and high grade fevers, this could be secondary to an infection ie COVID/flu. Recommended evaluation at this time. She is in agreement with this. She states that she may be unable to make her appointment with Dr. Zuniga today. Will send note to Dr. Zuniga and care team for awareness. She will also plan to call in at 8AM to inform team. Electronically signed by: Cherelle Sanabria M.D. 08/08/23 1:06 AM MOVIE OPERATOR Medical Oncology Fellow E OPERATOR documented in this encounter Plan of Treatment Upcoming Encounters Date Type Department Care Team (Late st Contact Info) Description 08/19/2023 6:40 AM MOVIE OPERATOR Appointment Department of Laboratory Medicine and Pathology, [facility] in [place], [place] [address] [place] [phone] Pérez Zuniga M.D., Ph.D. [address] [place] [phone] 08/19/2023 7:00 AM MOVIE OPERATOR Ancillary Procedure Department of Cardiovascular Medicine in [place], [place] [address] [place] [phone] Pérez Zuniga M.D., Ph.D. [address] [place] [phone] 08/19/2023 9:00 AM MOVIE OPERATOR Appointment Department of Radiology, [facility] in [place], [place] [address] [place] [phone] Pérez Zuniga M.D., Ph.D. [address] [place] [phone] 08/19/2023 3:40 PM MOVIE OPERATOR Office Visit Department of Oncology in [place], [place] [address] [place] [phone] Zhane Granados APRN, C.N.P. [address] [place] [phone] 08/21/2023 10:15 AM MOVIE OPERATOR Clinical Support Department of Palliative Care in [place], [place] [address] [place] [phone] Serenity Kelsey, P.A.-C. [address] [place] [phone] Meka Rinaldi D.N.P., R.N., [facility] documented as of this encounter Visit Diagnoses Not on filedocumented in this encounter Additional Health Concerns Infection Onset Date Last Indicated Resolved Time Protective Environment 06/04/2023 06/04/2023 documented as of this encounter Care Teams Harmonic Analyst Relationship Specialty Start Date End Date Elsewhere, Pcp PCP - General Family Medicine 06/17/23 documented as of this encounter
--- OUTSIDE RECORDS SUMMARY | 2023-08-08 18:03 | XMS_ITS | Encounter Summary ---
Author Name Unknown Organization [facility] Address [address] [place] [address] Care Team Providers Care Studio Sales Associate Name Role Phone Elsewhere, Pcp Primary Care Provider Unavailabl e Encounter Details Date Type Department Care Team (Latest Contact Info) Description 08/06/2023 2:30 PM MOBILE PAINT SPECIALIST Clinical Communication Virtual Review in [place], [place] 200 [place], [place] [phone] Social History Tobacco Use Types Packs/Day Years Used Date Smoking Tobacco: Never Passive Smoke Exposure: Never Smokeless Tobacco: Never Tobacco Cessation:Counseling Given: Not Answered Alcohol Use Standard Drinks/Week Comments Not Currently 6 (1 standard drink = 0.6 oz pur e alcohol) Occasional [facility] Utilities Answer Date Recorded In the past 12 months has [employer], gas, oil, or water [email or web address] threatened to shut off services in your [...] your living situation today? I have a [facility] place to live 07/10/2023 Sex and Gender Information Value Date Recorded Sex Assigned at Female 05/31/2023 8:26 AM MOBILE PAINT SPECIALIST Gender Identity Female 05/31/2023 8:26 AM MOBILE PAINT SPECIALIST Sexual Orientation Straight 05/31/2023 8: 26 AM MOBILE PAINT SPECIALIST documented as of this encounter Plan of Treatment Upcoming Encounters Date Type Department Care Team (Late st Contact Info) Description 08/19/2023 6:40 AM MOBILE PAINT SPECIALIST Appointment Department of Laboratory Medicine and Pathology, [facility] in [place], [place] [address] [place] [phone] Pérez Zuniga M.D., Ph.D. [address] [place] [phone] 08/19/2023 7:00 AM MOBILE PAINT SPECIALIST Ancillary Procedure Department of Cardiovascular Medicine in [place], [place] [address] [place] [phone] Pérez Zuniga M.D., Ph.D. [address] [place] [phone] 08/19/2023 9:00 AM MOBILE PAINT SPECIALIST Appointment Department of Radiology, [facility] in [place], [place] [address] [place] [phone] Pérez Zuniga M.D., Ph.D. [address] [place] [phone] 08/19/2023 3:40 PM MOBILE PAINT SPECIALIST Office Visit Department of Oncology in [place], [place] [address] [place] [phone] Zhane Granados APRN, C.N.P. [address] [place] [phone] 08/21/2023 10:15 AM MOBILE PAINT SPECIALIST Clinical Support Department of Palliative Care in [place], [place] [address] [place] [phone] Serenity Kelsey, P.A.-C. [address] [place] [phone] Meka Rinaldi D.N.P., R.N., [facility] documented as of this encounter Visit Diagnoses Not on filedocumented in this encounter Additional Health Concerns Infection Onset Date Last Indicated Resolved Time Protective Environment 06/04/2023 06/04/2023 documented as of this encounter Care Teams Studio Sales Associate Relationship Specialty Start Date End Date Elsewhere, Pcp PCP - General Family Medicine 06/17/23 documented as of this encounter
--- OUTSIDE RECORDS SUMMARY | 2023-08-08 18:03 | XMS_ITS | Encounter Summary ---
Author Name Unknown Organization [facility] Address [address] [place] [address] Care Team Providers Care Records Coordinator Name Role Phone Elsewhere, Pcp Primary Care Provider Unavailabl e Encounter Details Date Type Department Care Team (Late st Contact Info) Description 08/04/[address] [facility] [address] [place] [phone] Demetrius Londono Jr., R.Ph. [address] [place] [phone] Social History Tobacco Use Types Packs/Day Years [...] your living situation today? I have a [facility] place to live 07/10/2023 Sex and Gender Information Value Date Recorded Sex Assigned at Female 05/31/2023 8:26 AM LUMBER GRADER Gender Identity Female 05/31/2023 8:26 AM LUMBER GRADER Sexual Orientation Straight 05/31/2023 8: 26 AM LUMBER GRADER documented as of this encounter Miscellaneous Notes * Telephone Encounter - Demetrius Londono Jr., R.Ph. - 08/04/2023 1:[address] [facility] Specialty Pharmacy service discontinued at this time. Patient using other pharmacy. ER GRADER documented in this encounter Plan of Treatment Upcoming Encounters Date Type Department Care Team (Late st Contact Info) Description 08/19/2023 6:40 AM LUMBER GRADER Appointment Department of Laboratory Medicine and Pathology, [facility], in [place], [place] [address] [place] [phone] Pérez uZniga M.D., Ph.D. [address] [place] [phone] 08/19/2023 7:00 AM LUMBER GRADER Ancillary Procedure Department of Cardiovascular Medicine in [place], [place] [address] [place] [phone] Pérez Zuniga M.D., Ph.D. [address] [place] [phone] 08/19/2023 9:00 AM LUMBER GRADER Appointment Department of Radiology, [facility] in [place], [place] [address] [place] [address] Pérez Zuniga M.D., Ph.D. [address] [place] [phone] 08/19/2023 3:40 PM LUMBER GRADER Office Visit Department of Oncology in [place], [place] [address] [place] [phone] Zhane Granados APRN, C.N.P. [address] [place] [phone] 08/21/2023 10:15 AM LUMBER GRADER Clinical Support Department of Palliative Care in [place], [place] [address] [place] [phone] Serenity Kelsey, P.A.-C. [address] [place] [phone] Meka Rinaldi D.N.P., R.N., [facility] documented as of this encounter Visit Diagnoses Not on filedocumented in this encounter Additional Health Concerns Infection Onset Date Last Indicated Resolved Time Protective Environment 06/04/2023 06/04/2023 documented as of this encounter Care Teams Records Coordinator Relationship Specialty Start Date End Date Elsewhere, Pcp PCP - General Family Medicine 06/17/23 documented as of this encounter
--- OUTSIDE RECORDS SUMMARY | 2023-08-08 18:04 | XMS_ITS | Encounter Summary ---
Author Name Unknown Organization [facility] Address [address] [place] [address] Care Team Providers Care Roll Table Operator Name Role Phone Elsewhere, Pcp Primary Care Provider Unavailabl e Reason for Referral * Outpatient (Routine) - Authorized Specialty Diagnoses / Procedures Referred By Mikki feliciano Referred To Contact Palliative Medicine Diagnoses Melanoma Trunk (HCC) Marija Olivas APRN, C.N.P., M.S.N. [address] [place] [phone] [facility] Referral ID Status Reason Start Date Expiration Date V isits Requested Visits Authorized [id number] Authorized 07/04/2023 07/03/2026 1 1 Scheduling Instructions With oncology appts R TRAINING MANAGER Encounter Details Date Type Department Care Team (Late st Contact Info) Description 07/04/2023 Clinical Communication Department of Palliative Care in [place], [place] [address] [place] [phone] Inés Wiley R.N. [address] [place] [phone] Social History Tobacco Use Types Packs/Day Years Used Date Smoking Tobacco: Never Passive Smoke Exposure: Never Smokeless Tobacco: Never Alcohol Use Standard Drinks/Week Comments Not Currently 6 (1 standard drink = 0.6 oz pur e alcohol) Occasional [facility] Utilities Answer Date Recorded In the [...] your living situation today? I have a [facility] place to live 07/10/2023 Sex and Gender Information Value Date Recorded Sex Assigned at Female 05/31/2023 8:26 AM LABOR TRAINING MANAGER Gender Identity Female 05/31/2023 8:26 AM LABOR TRAINING MANAGER Sexual Orientation Straight 05/31/2023 8: 26 AM LABOR TRAINING MANAGER documented as of this encounter Plan of Treatment Upcoming Encounters Date Type Department Care Team (Late st Contact Info) Description 08/19/2023 6:40 AM LABOR TRAINING MANAGER Appointment Department of Laboratory Medicine and Pathology, [facility] in [place], [place] [address] [place] [phone] Pérez Zuniga M.D., Ph.D. [address] [place] [phone] 08/19/2023 7:00 AM LABOR TRAINING MANAGER Ancillary Procedure Department of Cardiovascular Medicine in [place], [place] [address] [place] [phone] Pérez Zuniga M.D., Ph.D. [address] [place] [phone] 08/19/2023 9:00 AM LABOR TRAINING MANAGER Appointment Department of Radiology, [facility] in [place], [place] [address] [place] [phone] Pérez Zuniga M.D., Ph.D. [address] [place] [phone] 08/19/2023 3:40 PM LABOR TRAINING MANAGER Office Visit Department of Oncology in [address] [phone] Zhane Granados APRN, C.N.P. [address] [place] [phone] 08/21/2023 10:15 AM LABOR TRAINING MANAGER Clinical Support Department of Palliative Care in [address] [phone] Serenity Kelsey, P.A.-C. [address] [place] [phone] Meka Rinaldi D.N.P., R.N., [facility] Scheduled Referrals Name Type Priority Associated Diagnoses Order Schedule Palliative Care nurse therapy visit (clinic) Outpatient Referral Routine Melanoma Trunk (HCC) Expected: 08/01/2023, Expires: 10/02/2024 documented as of this encounter Visit Diagnoses Diagnosis Melanoma Trunk (HCC)- Primary documented in this encounter Additional Health Concerns Infection Onset Date Last Indicated Resolved Time Protective Environment 06/04/2023 06/04/2023 documented as of this encounter Care Teams Roll Table Operator Relationship Specialty Start Date End Date Elsewhere, Pcp PCP - General Family Medicine 06/17/23 documented as of this encounter
--- OUTSIDE RECORDS SUMMARY | 2023-08-08 18:04 | XMS_ITS | Encounter Summary ---
Author Name Unknown Organization [facility] Address [address] [place] [address] Care Team Providers Care Patient Financial Advocate Name Role Phone Elsewhere, Pcp Primary Care Provider Unavailabl e Reason for Visit * Outpatient (Routine) - Closed Specialty Diagnoses / Procedures Referred By Mikki feliciano Referred To Contact Ophthalmology Diagnoses Hemorrhage Retinal Bilateral Procedures ANGIOGRAPHY - OU - BOTH EYES OPH PROC IV START Phi Palm M.D., Ph.D. [address] [place] [phone] Rst Oph [place] [address] [place] [phone] Referral ID Status Reason Start Date Expiration Date Visits Re quested Visits Authorized [id number] Closed 07/17/2023 07/16/2024 3 3 Encounter Details Date Type Department Care Team (Late st Contact Info) Description 07/17/2023 10:40 AM CLOTH DESIZING RANGE TENDER Ancillary Procedure Department of Ophthalmology in [place], [place] [address] [place] [phone] Phi Palm M.D., Ph.D. [address] [place] [phone] Social History Tobacco Use Types Packs/Day Years Used Date Smoking Tobacco: Never Passive Smoke Exposure: Never Smokeless Tobacco: Never Alcohol Use Standard Drinks/Week Comments Not Currently 6 (1 standard drink = 0.6 oz pur e alcohol) Occasional [facility] Utilities Answer Date Recorded In the [...] your living situation today? I have a [facility] place to live 07/10/2023 Sex and Gender Information Value Date Recorded Sex Assigned at Female 05/31/2023 8:26 AM CLOTH DESIZING RANGE TENDER Gender Identity Female 05/31/2023 8:26 AM CLOTH DESIZING RANGE TENDER Sexual Orientation Straight 05/31/2023 8: 26 AM CLOTH DESIZING RANGE TENDER documented as of this encounter Plan of Treatment Upcoming Encounters Date Type Department Care Team (Late st Contact Info) Description 08/19/2023 6:40 AM CLOTH DESIZING RANGE TENDER Appointment Department of Laboratory Medicine and Pathology, [facility], in [place], [place] [address] [place] [phone] Pérez Zuniga M.D., Ph.D. [address] [place] [phone] 08/19/2023 7:00 AM CLOTH DESIZING RANGE TENDER Ancillary Procedure Department of Cardiovascular Medicine in [place], [place] [address] [place] [phone] Pérez Zuniga M.D., Ph.D. [address] [place] [phone] 08/19/2023 9:00 AM CLOTH DESIZING RANGE TENDER Appointment Department of Radiology, [facility], in [place], [place] [address] [place] [phone] Pérez Zuniga M.D., Ph.D. [address] [place] [phone] 08/19/2023 3:40 PM CLOTH DESIZING RANGE TENDER Office Visit Department of Oncology in [place], [place] [address] [place] [phone] Zhane Granados, TOUR CONDUCTOR, C.N.P. [address] [place] [phone] 08/21/2023 10:15 AM CLOTH DESIZING RANGE TENDER Clinical Support Department of Palliative Care in [place], [place] [address] [place] [phone] Serenity Kelsey, P.A.-C. [address] [place] [phone] Meka Rinaldi D.N.P., R.N., [facility] documented as of this encounter Procedures Procedure Name Priority Date/Time Associated Diagnosis Comments ANGIOGRAPHY - OU - BOTH EYES Routine 07/17/2023 12:55 PM CLOTH DESIZING RANGE TENDER Hemorrhage Retinal Bilateral documented in this encounter Results * Fluorescein Angiography - OU - Both Eyes (07/17/2023 12:55 PM CLOTH DESIZING RANGE TENDER) Narrative OPHTHALMOLOGY IMAGING EXAM - 07/17/2023 7:03 PM CLOTH DESIZING RANGE TENDER Right Eye Dye used is fluorescein. Fluorescein dose given is normal. Left Eye Dye used is fluorescein. Fluorescein dose given is normal. Notes Interpretation in note Phi Palm M.D., Ph.D. OPHTH PHOTOGRA PHY OPHTHALMOLOGY IMAGING EXAM documented in this encounter Visit Diagnoses Not on filedocumented in this encounter Additional Health Concerns Infection Onset Date Last Indicated Resolved Time Protective Environment 06/04/2023 06/04/2023 documented as of this encounter Care Teams Patient Financial Advocate Relationship Specialty Start Date End Date Elsewhere, Pcp PCP - General Family Medicine 06/17/23 documented as of this encounter
--- OUTSIDE RECORDS SUMMARY | 2023-08-08 18:04 | XMS_ITS | Encounter Summary ---
Author Name Unknown Organization [facility] Address [address] [place] [phone] Care Team Providers Care Ultrasound Tester Name Role Phone Elsewhere, Pcp Primary Care Provider Unavailabl e Reason for Visit * Outpatient (Routine) - Closed Specialty Diagnoses / Procedures Referred By Mikki t Referred To Contact Ophthalmology Diagnoses Hemorrhage Retinal Bilateral Procedures ANGIOGRAPHY - OU - BOTH EYES OPH PROC IV START Phi Palm M.D., Ph.D. [address] [place] [phone] Rst Oph [place] [address] [place] [phone] Referral ID Status Reason Start Date Expiration Date Visits Re quested Visits Authorized [id number] Closed 07/17/2023 07/16/2024 3 3 Encounter Details Date Type Department Care Team (Latest Contact Info) Description 07/17/2023 11:30 AM FOUNDRY SUPERINTENDANT Ancillary Procedure Department of Ophthalmology in [place], [place] [address] [place] [phone] Phi Palm M.D., Ph.D. [address] [place] [phone] Hemorrhage Retinal Bilateral Social History Tobacco Use Types Packs/Day Years Used Date Smoking Tobacco: Never Passive Smoke Exposure: Never Smokeless Tobacco: Never Alcohol Use Standard Drinks/Week Comments Not Currently 6 (1 standard drink = 0.6 oz pur e alcohol) Occasional [facility] Utilities Answer Date Recorded In the [...] your living situation today? I have a [facility] place to live 07/10/2023 Sex and Gender Information Value Date Recorded Sex Assigned at Female 05/31/2023 8:26 AM FOUNDRY SUPERINTENDANT Gender Identity Female 05/31/2023 8:26 AM FOUNDRY SUPERINTENDANT Sexual Orientation Straight 05/31/2023 8: 26 AM FOUNDRY SUPERINTENDANT documented as of this encounter Plan of Treatment Upcoming Encounters Date Type Department Care Team (Late st Contact Info) Description 08/19/2023 6:40 AM FOUNDRY SUPERINTENDANT Appointment Department of Laboratory Medicine and Pathology, [facility], in [place], [place] [address] [place] [phone] Pérez Zuniga M.D., Ph.D. [address] [place] [phone] 08/19/2023 7:00 AM FOUNDRY SUPERINTENDANT Ancillary Procedure Department of Cardiovascular Medicine in [place], [place] [address] [place] [phone] Pérez Zuniga M.D., Ph.D. [address] [place] [phone] 08/19/2023 9:00 AM FOUNDRY SUPERINTENDANT Appointment Department of Radiology, [facility], in [place], [place] [address] [place] [phone] Pérez Zuniga M.D., Ph.D. [address] [place] [phone] 08/19/2023 3:40 PM FOUNDRY SUPERINTENDANT Office Visit Department of Oncology in [place], [place] [address] [place] [phone] Zhane Graandos, [employer], C.N.P. [address] [place] [phone] 08/21/2023 10:15 AM FOUNDRY SUPERINTENDANT Clinical Support Department of Palliative Care in [place], [place] [address] [place] [phone] Serenity Kelsey, P.A.-C. [address] [place] [phone] Meka Rinaldi D.N.P., R.N., [facility] documented as of this encounter Procedures Procedure Name Priority Date/Time Associated Diagnosis Comments FUNDUS PHOTOS - OU - BOTH EYES Routine 07/17/2023 11:52 AM FOUNDRY SUPERINTENDANT Hemorrhage Retinal Bilateral documented in this encounter Results * Fundus Photos - OU - Both Eyes (07/17/2023 11:52 AM FOUNDRY SUPERINTENDANT) Narrative OPHTHALMOLOGY IMAGING EXAM - 07/17/2023 7:03 PM FOUNDRY SUPERINTENDANT Right Eye Field of view is standard view. Fundus photo type obtained is Color. Left Eye Field of view is standard view. Fundus photo type obtained is Color. Notes Interpretation in note Phi Palm M.D., Ph.D. OPHTH PHOTOGRA PHY OPHTHALMOLOGY IMAGING EXAM documented in this encounter Visit Diagnoses Diagnosis Hemorrhage Retinal Bilateral documented in this encounter Additional Health Concerns Infection Onset Date Last Indicated Resolved Time Protective Environment 06/04/2023 06/04/2023 documented as of this encounter Care Teams Ultrasound Tester Relationship Specialty Start Date End Date Elsewhere, Pcp PCP - General Family Medicine 06/17/23 documented as of this encounter
--- OUTSIDE RECORDS SUMMARY | 2023-08-08 18:04 | XMS_ITS | Encounter Summary ---
Author Name Unknown Organization [facility] Address [address] [place] [address] Care Team Providers Care Visitor Service Assistant Name Role Phone Elsewhere, Pcp Primary Care Provider Unavailabl e Reason for Referral * Outpatient (Routine) - Authorized Specialty Diagnoses / Procedures Referred By Contac t Referred To Contact Dermatology Anh Lee M.D. [address] [place] [phone] [facility] Referral ID Status Reason Start Date Expiration Date V isits Requested Visits Authorized [id number] Authorized 07/17/2023 07/16/2026 1 1 ORT SKILLED MAINTENANCE SUPERVISOR * Outpatient (Routine) - Authorized Specialty Diagnoses / Procedures Referred By Contac t Referred To Contact [facility] Diagnoses Dermatoheliosis Anh Lee M.D. 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 [address] [place] [phone] [facility] Referral ID Status Reason Start Date Expiration Date Visits Re quested Visits Authorized [id number] Closed 05/22/2023 05/21/2024 1 1 Encounter Details Date Type Department Care Team (Latest Contact Info) Description 07/17/2023 4:15 PM AIRPORT SKILLED MAINTENANCE SUPERVISOR Comprehensive Visit Department of Dermatology in [place], [place] [address] [place] [phone] Naiad Mejia P.A.-C., M.S. [address] [place] [phone] Anh Lee M.D. [address] [place] [phone] Nevi Multiple (Primary Dx); Melanoma Trunk (HCC); Secondary Malignant Neoplasm Bone (HCC); Screening Examination Skin Cancer; Dermatoheliosis; Tumor Skin Uncertain Behavior Social History Tobacco Use Types Packs/Day Years Used Date Smoking Tobacco: Never Passive Smoke Exposure: Never Smokeless Tobacco: Never Alcohol Use Standard Drinks/Week Comments Not Currently 6 (1 standard drink = 0.6 oz pur e alcohol) Occasional [facility] Utilities Answer Date Recorded In the past 12 months has [employer], oil, or water sones threatened to shut off services in your [...] your living situation today? I have a [facility] place to live 07/10/2023 Sex and Gender Information Value Date Recorded Sex Assigned at Female 05/31/2023 8:26 AM AIRPORT SKILLED MAINTENANCE SUPERVISOR Gender Identity Female 05/31/2023 8:26 AM AIRPORT SKILLED MAINTENANCE SUPERVISOR Sexual Orientation Straight 05/31/2023 8: 26 AM AIRPORT SKILLED MAINTENANCE SUPERVISOR documented as of this encounter Consult Notes * Anh Lee M.D. - 07/17/2023 4:15 PM CST REFERRED BY Naida Mejia P.A.-C., M.S. CHIEF COMPLAINT/REASON FOR VISIT History of metastatic malignant melanoma HISTORY OF PRESENT ILLNESS Ms. Tony Cota is a pleasant 48 y.o. female who presents today for a full skin cancer screening examination. The patient has a history of metastatic malignant melanoma first discovered in the leftfemur, unknown primary, diagnosed 05/03/2023, metastatic to bone and brain, BRAF V600E positive, treating with dabrafenib and trametinib. There is no other reported personal or family history of skincancer. She has [facility]. The patient is new to [facility]. Today, she reports that she had a mole growing in the whites of her eye in high school. This was removed, and found to be benign, with no recurrence over yearsof ophthalmologic follow up. No other pigmented lesions have been biopsied. Last skin check by a rack production worker was approximately 8 years ago. She states that she used tanning beds in the past, less than 50 times. She has gotten sunburns when she was younger. She has three children and had questions about genetic testing. No Known Allergies PAST DERMATOLOGIC HISTORY Metastatic malignant melanoma, unknown primary. FAMILY DERMATOLOGIC HISTORY Negative for skin cancer SYSTEMS REVIEW The patient denies unintended weight loss, fevers, chills, night sweats, headache, cough, bloody sputum, shortness of breath, abdominal pain, nausea, numbness/weakness, swollen glands, bone pain, or changing pigmented skin lesions. PHYSICAL EXAM General: Awake, alert, in no acute distress, and with appropriate affect. Eyes: No scleral injection or icterus. No eyelid abnormalities. Lymph: No lower extremity edema. No cervical, supraclavicular, axillary, lymphadenopathy. Skin: I have examined the scalp, face, neck, chest, abdomen, back, buttocks, bilateral upper extremities, and bilateral lower extremities. Morrison type II. There is dermatoheliosis in sun-exposedareas. On the right thigh is a light brown to pink macule that dimples with manipulation. Scatteredlight brown to dark brown, symmetric, uniform macules and thin papules on the trunk, and extremities with reassuring features under dermoscopy. Multiple pink to brown waxy, stuck-on appearing papulesand plaques scattered throughout the exam, consistent with seborrheic keratoses. Located on the left paraspinal back there is a 2-x 1-cm light brown macule with two darker macules within it. Located on the right shoulder is a 4- x 4-mm brown papule. Located on the left upper paraspinal back is a 3- x 4-mm brown macule. IMPRESSION/REPORT/PLAN #1 Skin cancer screening examination #2 Dermatoheliosis #3 History of metastatic malignant melanoma Due to the history of melanoma, there is an increased risk of additional melanoma in the future. Recommended regular examinations to evaluate for new, changing, symptomatic, or otherwise worrisome lesions. Signs and symptoms of melanoma and nonmelanoma skin cancer discussed. Photoprotection was recommended. Sun protection with SPF 30+ and sun avoidance were reviewed with the patient. Return to Dermatology in 3 months for a full skin exam or sooner for any concerns. An order for consultation in the [facility] was placed, as she is interested in considering genetic testing for inherited melanoma predisposition. #4 Skin tumor uncertain behavior, right shoulder This is clinically significant for atypical nevus. Photographs with dermoscopy were taken. Punch biopsy performed. CONSENT Discussed the risks, benefits, alternatives, and the necessity of other members of the healthcare team participating in the procedure. All questions answered and consent given. UNIVERSAL PROTOCOL Procedural pause conducted to verify: correct patient identity, procedure to be performed, and as applicable, correct side and site, correct patient position, and availability of implants, special equipment, or special requirements. PROCEDURE INFORMATION Punch biopsy. We explained the potential diagnosis and recommended that we obtain a biopsy. The risks and benefits of the procedure were discussed, and the patient consented to these procedures. Using 1% lidocainewith epinephrine for local anesthesia, a 6-mm punch biopsy was obtained. Biopsy submitted to Dermato pathology. Biopsy site closed with a top layer of nylon. The skin sutures need to be removed in 10-14 days. Dressing was applied, and wound care instructions were explained. Biopsy results and any further recommendations will be communicated to the patient by letter. Patient given pamphlet [id number]. #5 Skin tumor uncertain behavior, left upper paraspinal back This is clinically significant for atypical nevus. Photographs were taken. Punch biopsy recommendedbut not performed as patient began feeling pre-syncopal after first biopsy and preferred to defer until a time her could be present at appointment. I told her she is welcome to contact me at any time and I can arrange for a biopsy-only visit. If biopsy has not yet been done by the time we see her back in 3 months, we can re-evaluate and compare to photos. #6 Nevus spilus, left mid back Photographs with dermoscopy were obtained today for documentation and monitoring. We will monitor this during her follow up appointments. #7 Seborrheic keratoses #8 Benign-appearing nevi The benign nature of the skin lesion(s) was discussed with the patient. No treatment is required. Irecommend continued observation. Should symptoms or changes develop related to this condition, I would recommend a return visit for reassessment. PATIENT EDUCATION Ready to learn. No apparent learning barriers were identified. Learning preferences include listening. Explained diagnosis and treatment plan; patient/guardian of patient expressed understanding of the content. This document serves as a record of services personally performed by Anh Lee M.D. It was created on their behalf by ROSHAN Wilcox, a trained medical fee clerk. The creation of this record is based on the scribe remotely listening to the visit and the provider's statements to them. This document has been checked and approved by the attending provider. Scribed for Anh Lee M.D. by ROSHAN Wilcox, on 07/17/2023, 11:10 AM AIRPORT SKILLED MAINTENANCE SUPERVISOR. ORT SKILLED MAINTENANCE SUPERVISOR documented in this encounter Plan of Treatment Upcoming Encounters Date Type Department Care Team (Late st Contact Info) Description 08/19/2023 6:40 AM AIRPORT SKILLED MAINTENANCE SUPERVISOR Appointment Department of Laboratory Medicine and Pathology, [facility] in [address] [phone] Pérez Zuniga M.D., Ph.D. [address] [place] [phone] 08/19/2023 7:00 AM AIRPORT SKILLED MAINTENANCE SUPERVISOR Ancillary Procedure Department of Cardiovascular Medicine in [address] [phone] Pérez Zuniga M.D., Ph.D. [address] [place] [phone] 08/19/2023 9:00 AM AIRPORT SKILLED MAINTENANCE SUPERVISOR Appointment Department of Radiology, [facility] in [place], [place] [address] [place] [phone] Pérez Zuniga M.D., Ph.D. [address] [place] [phone] 08/19/2023 3:40 PM AIRPORT SKILLED MAINTENANCE SUPERVISOR Office Visit Department of Oncology in [place], [place] [address] [place] [phone] Zhane Granados APRN, C.N.P. [address] [place] [phone] 08/21/2023 10:15 AM AIRPORT SKILLED MAINTENANCE SUPERVISOR Clinical Support Department of Palliative Care in [place], [place] [address] [place] [phone] Serenity Kelsey, PSantoshASantosh-CSantosh [address] [place] [phone] Meka Rinaldi D.N.P., R.N., [facility] Scheduled Referrals Name Type Priority Associated Diagnoses Order Schedule Clinical Genomics - General genetics consult (clinic) Outpatient Referral Routine Dermatoheliosis Expected: 07/17/2023 (Approximate), Expires: 10/15/2024 Dermatology office visit (clinic) Outpatient Referral Routine Expected: 10/16/2023 (Approximate), Expires: 10/15/2024 documented as of this encounter Procedures Procedure Name Priority Date/Time Associated Diagnosis Comments DERMATOPATHOLOGY Routine 07/17/2023 4:41 PM AIRPORT SKILLED MAINTENANCE SUPERVISOR 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 07/22/2023 6:51 AM AIRPORT SKILLED MAINTENANCE SUPERVISOR PDRM Gross Description Received in formalin [...] A1. ??Grossed by JONATHAN. 07/22/2023 6:51 AM AIRPORT SKILLED MAINTENANCE SUPERVISOR PDRM Interpretation FINAL DIAGNOSIS A. ??Right Shoulder - Anterior, Skin punch biopsy: Lentiginous compound nevus COMMENT Clinical note and photos reviewed. Diagnosis was made via digital imaging. A portion of the testing process was performed at [facility] site [id number]. 07/22/2023 6:51 AM AIRPORT SKILLED MAINTENANCE SUPERVISOR PDRM Skin (Right Shoulder - Anterior) 07/17/2023 4:40 PM AIRPORT SKILLED MAINTENANCE SUPERVISOR Anh Lee M.D. 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
--- OUTSIDE RECORDS SUMMARY | 2023-08-08 18:04 | XMS_ITS | Encounter Summary ---
Author Name Unknown Organization [facility] Address [address] [place] [address] Care Team Providers Care Construction Cost Estimator Name Role Phone Elsewhere, Pcp Primary Care Provider Unavailabl e Encounter Details Date Type Department Care Team (Latest Contact Info) Description 07/04/2023 Clinical Communication Department of Ophthalmology in [place], [place] [address] [place] [phone] Provider, Unknown Social History Tobacco Use Types Packs/Day Years Used Date Smoking Tobacco: Never Passive Smoke Exposure: Never Smokeless Tobacco: Never Alcohol Use Standard Drinks/Week Comments Not Currently 6 (1 standard drink = 0.6 oz pur e alcohol) Occasional C Utilities Answer Date Recorded In the past 12 months has [facility] [employer], gas, oil, or water [employer] threatened to shut off services in your [...] your living situation today? I have a [facility] place to live 07/10/2023 Sex and Gender Information Value Date Recorded Sex Assigned at Female 05/31/2023 8:26 AM TAKER OUT Gender Identity Female 05/31/2023 8:26 AM TAKER OUT Sexual Orientation Straight 05/31/2023 8: 26 AM TAKER OUT documented as of this encounter Plan of Treatment Upcoming Encounters Date Type Department Care Team (Late st Contact Info) Description 08/19/2023 6:40 AM TAKER OUT Appointment Department of Laboratory Medicine and Pathology, [facility] in [place], [place] [address] [place] [phone] Pérez Zuniga M.D., Ph.D. [address] [place] [phone] 08/19/2023 7:00 AM TAKER OUT Ancillary Procedure Department of Cardiovascular Medicine in [place], [place] [address] [place] [phone] Pérez Zuniga M.D., Ph.D. [address] [place] [phone] 08/19/2023 9:00 AM TAKER OUT Appointment Department of Radiology, [facility] in [place], [place] [address] [place] [phone] Pérez Zuniga M.D., Ph.D. [address] [place] [phone] 08/19/2023 3:40 PM TAKER OUT Office Visit Department of Oncology in [place], [place] [address] [place] [phone] Zhane Granados, GAIL, C.N.P. [address] [place] [phone] 08/21/2023 10:15 AM TAKER OUT Clinical Support Department of Palliative Care in [place], [place] [address] [place] [phone] Serenity Kelsey, P.A.-C. [address] [place] [phone] Meka Rinaldi D.N.P., R.N., [facility] documented as of this encounter Visit Diagnoses Not on filedocumented in this encounter Additional Health Concerns Infection Onset Date Last Indicated Resolved Time Protective Environment 06/04/2023 06/04/2023 documented as of this encounter Care Teams Construction Cost Estimator Relationship Specialty Start Date End Date Elsewhere, Pcp PCP - General Family Medicine 06/17/23 documented as of this encounter
--- OUTSIDE RECORDS SUMMARY | 2023-08-08 18:04 | XMS_ITS | Encounter Summary ---
Author Name Unknown Organization [facility] Address [address] [place] [phone] Care Team Providers Care Airplane Rigger Name Role Phone Elsewhere, Pcp Primary Care Provider Unavailabl e Reason for Visit * Outpatient (Routine) - Closed Specialty Diagnoses / Procedures Referred By Contsweetie t Referred To Contact Palliative Medicine Diagnoses Melanoma Trunk (HCC) Nausea Valentine Kelsey M.D., M.S. [address] [place] [phone] [facility] Referral ID Status Reason Start Date Expiration Date Visits Re quested Visits Authorized [id number] Closed 07/01/2023 06/30/2026 1 1 Encounter Details Date Type Department Care Team (Latest Contact Info) Description 07/04/2023 10:30 AM [facility] Clinical Support Department of Palliative Care in [place], [place] [address] [place] [phone] Valentine Kelsey M.D., M.S. [address] [place] [address] [phone] Inés Wiley R.N. [address] [place] [phone] Melanoma Trunk (HCC); Nausea Social History Tobacco Use Types Packs/Day Years Used Date Smoking Tobacco: Never Passive Smoke Exposure: Never Smokeless Tobacco: Never Alcohol Use Standard Drinks/Week Comments Not Currently 6 (1 standard drink = 0.6 oz pur e alcohol) Occasional Nutrition Answer Date Recorded Nutrition: EVOO Fat Source Unknown 05/06 Nutrition: Servings of Fruits/Vegetables per Day Not on file 05/06/2023 Dental Answer Date Recorded Dental: Regular Dentist Unknown 05/06/20 Sex and Gender Information Value Date Recorded Sex Assigned at Female 05/31/2023 8:26 AM FORM MAKER PLASTER Gender Identity Female 05/31/2023 8:26 AM FORM MAKER PLASTER Sexual Orientation Straight 05/31/2023 8: 26 AM FORM MAKER PLASTER documented as of this encounter Progress Notes * Inés Wiley R.N. - 07/04/2023 10:30 AM CST PALLIATIVE CARE OUTPATIENT NURSING VISIT Patient Name: Tony Cota Age: 47 y.o. Reason for Palliative Medicine Nurse Visit: Acupressure, aromatherapy, and auricular acupressure education for symptom management in the setting of complex medical illness. I introduced the patient to acupressure as a healing modality for Nausea management. Prior to initiating acupressure, safety precautions were reviewed including platelet counts and skin integrity. Prior to initiating auricular acupressure, safety precautions were reviewed including skin integrity, and allergies. Patient verbalized understanding of rationale for these interventions for symptom management and verbal consent was obtained to proceed with the session. ASSESSMENT Pre acupressure assessment: Tony is very open and eager to learn non pharmacologic techniques for nausea management. Currently, her nausea is well controlled on dexamethasone. She did try coming off of this medication, though experienced fevers and worsening nausea. She is also using Zofran to help control nausea. Dr Kelsey has a detailed note of nausea history. Pressure points used during session were: P6 , St36, Cv12, and Kid27. Post acupressure assessment: Tony is thankful for today's visit. She is eager to try these interventions for nausea to see if they will help. She is also looking forward to Reiki that should be scheduled on a day when she is here for chemo/oncology appointments. Auricular Acupressure Ear (s) used: left ear Auricular protocol selected: Upper Gastrointestinal Acupoints used: Esophagus, Liver, [place], Spleen, and Stomach Device used: Titanium Ear Beads Number of beads placed: 5 RECOMMENDATION/PLAN -Will watch for Reiki appointment to be scheduled -Will send portal follow up in one week to reassess response to auricular acupressure Patient verbalized understanding of location of pressure points, frequency of repetition, and when to avoid acupressure for symptom management. Patient was educated and encouraged to use acupressure points multiple times per day for best results. Acupressure Booklet [id number], Aromatherapy Safety [id number] , and Essential Oil Patient Education [id number] were provided and reviewed with the patient for continued use of acupressure for symptom management. Stimulation instructions provided: Gentle finger pressure several times/day Advised devices should be removed in 3-6 days or if pain, soreness, swelling, pinching, redness, heat, or itching develop. Reviewed most common auricular acupressure risks including local skin irritation/discomfort, mild tenderness or pain at the application site, and itching. Visit and plan was discussed with DANIEL Leon R.N. Palliative Care Nurse [facility] MAKER PLASTER documented in this encounter Plan of Treatment Upcoming Encounters Date Type Department Care Team (Late st Contact Info) Description 08/19/2023 6:40 AM FORM MAKER PLASTER Appointment Department of Laboratory Medicine and Pathology, [place], [place] [address] [place] [phone] Pérez Zuniga M.D., Ph.D. [address] [place] [phone] 08/19/2023 7:00 AM FORM MAKER PLASTER Ancillary Procedure Department of Cardiovascular Medicine in [place], [place] [address] [place] [phone] Pérez Zuniga M.D., Ph.D. [address] [place] [phone] 08/19/2023 9:00 AM FORM MAKER PLASTER Appointment Department of Radiology, [place], in [place], [place] [address] [place] [phone] Pérez Zuniga M.D., Ph.D. [address] [place] [phone] 08/19/2023 3:40 PM FORM MAKER PLASTER Office Visit Department of Oncology in [place], [place] [address] [place] [address] [phone] Zhane Granados, GAIL, C.N.P. [address] [place] [phone] 08/21/2023 10:15 AM FORM MAKER PLASTER Clinical Support Department of Palliative Care in [place], [place] [address] [place] [address] [phone] Serenity Kelsey, P.A.-C. [address] [place] [phone] Meka Rinaldi D.N.P., R.N., [facility] documented as of this encounter Visit Diagnoses Diagnosis Melanoma Trunk (HCC) Nausea documented in this encounter Additional Health Concerns Infection Onset Date Last Indicated Resolved Time Protective Environment 06/04/2023 06/04/2023 documented as of this encounter Care Teams Airplane Rigger Relationship Specialty Start Date End Date Elsewhere, Pcp PCP - General Family Medicine 06/17/23 documented as of this encounter
--- OUTSIDE RECORDS SUMMARY | 2023-08-08 18:04 | XMS_ITS | Encounter Summary ---
Author Name Unknown Organization [facility] Address [address] [place] [phone] Care Team Providers Care Food Photographer Name Role Phone Elsewhere, Pcp Primary Care Provider Unavailabl e Reason for Referral * Outpatient (Routine) - Closed Specialty Diagnoses / Procedures Referred By Mikki feliciano Referred To Contact Palliative Medicine Diagnoses Palliative Care Marija Olivas APRN, C.N.P., M.S.N. [address] [place] [phone] [facility] Referral ID Status Reason Start Date Expiration Date Visits Re quested Visits Authorized [id number] Closed 07/16/2023 07/15/2026 1 1 Scheduling Instructions Please schedule on Meka's personal calendar at 1 pm. Patient is aware. VIDEO visit. LAYER Encounter Details Date Type Department Care Team (Late st Contact Info) Description 07/16/2023 Clinical Communication Department of Palliative Care in [place], [place] [address] [place] [phone] Meka Rinaldi D.N.P., R.N., [facility] Social History Tobacco Use Types Packs/Day Years Used Date Smoking Tobacco: Never Passive Smoke Exposure: Never Smokeless Tobacco: Never Alcohol Use Standard Drinks/Week Comments Not Currently 6 (1 standard drink = 0.6 oz pur e alcohol) Occasional [facility] Utilities Answer Date Recorded In the [...] your living situation today? I have a [facility] place to live 07/10/2023 Sex and Gender Information Value Date Recorded Sex Assigned at Female 05/31/2023 8:26 AM DISPLAYER Gender Identity Female 05/31/2023 8:26 AM DISPLAYER Sexual Orientation Straight 05/31/2023 8: 26 AM DISPLAYER documented as of this encounter Miscellaneous Notes * Telephone Encounter - Meka Rinaldi D.N.P., NINI Farley - 07/16/2023 11:34 AM CST ----- Message from Jo-Ann Mariscal sent at 07/16/2023 11:23 AM DISPLAYER ----- Regarding: RE: Resilient Living Looks like we will need a new order for this. Please place order, I will watch for it. ----- Message ----- From: Meka Rinaldi D.N.P., NINI Farley Sent: 07/16/2023 10:58 AM DISPLAYER To: Rst Pal Scheduling Subject: Resilient Living Please reschedule resilient living visit to Saturday, 07/26 at 1 pm. Video visit. Tony is aware. Thank you! ----- Message ----- From: Marilu Parikh R.N., CHPN Sent: 07/09/2023 1:43 PM DISPLAYER To: Meka Rinaldi D.N.P., Martine lenny Jacobsen canceled Tony's RLP visit for 07/12. I sent her a portal message and let her know you would follow up on rescheduling when you are back in clinic! Thanks, Marilu LAYER documented in this encounter Plan of Treatment Upcoming Encounters Date Type Department Care Team (Late st Contact Info) Description 08/19/2023 6:40 AM DISPLAYER Appointment Department of Laboratory Medicine and Pathology, [facility], in [place], [place] [address] [place] [address] [phone] Pérez Zuniga M.D., Ph.D. [address] [place] [address] [phone] 08/19/2023 7:00 AM DISPLAYER Ancillary Procedure Department of Cardiovascular Medicine in [place], [place] [address] [place] [phone] Pérez Zuniga M.D., Ph.D. [address] [place] [phone] 08/19/2023 9:00 AM DISPLAYER Appointment Department of Radiology, [facility], in [place], [place] [address] [place] [phone] Pérez Zuniga M.D., Ph.D. [address] [place] [phone] 08/19/2023 3:40 PM DISPLAYER Office Visit Department of Oncology in [place], [place] [address] [place] [phone] Zhane Granados APRN, C.N.P. [address] [place] [phone] 08/21/2023 10:15 AM DISPLAYER Clinical Support Department of Palliative Care in [place], [place] [address] [place] [address] [phone] Serenity Kelsey, P.A.-C. [address] [place] [address] [phone] Meka Rinaldi D.N.P., R.N., [facility] Scheduled Referrals Name Type Priority Associated Diagnoses Order Schedule Palliative Care nurse therapy visit (clinic) Outpatient Referral Routine Palliative Care Expected: 07/26/2023, Expires: 10/14/2024 documented as of this encounter Visit Diagnoses Diagnosis Palliative Care- Primary documented in this encounter Additional Health Concerns Infection Onset Date Last Indicated Resolved Time Protective Environment 06/04/2023 06/04/2023 documented as of this encounter Care Teams Food Photographer Relationship Specialty Start Date End Date Elsewhere, Pcp PCP - General Family Medicine 06/17/23 documented as of this encounter
--- OUTSIDE RECORDS SUMMARY | 2023-08-08 18:04 | XMS_ITS | Encounter Summary ---
Author Name Unknown Organization [facility] Address [address] [place] [phone] Care Team Providers Care Agricultural Education Professor Name Role Phone Elsewhere, Pcp Primary Care Provider Unavailabl e Reason for Visit * Outpatient (Routine) - Closed Specialty Diagnoses / Procedures Referred By Mikki feliciano Referred To Contact Ophthalmology Diagnoses Hemorrhage Retinal Bilateral Procedures ANGIOGRAPHY - OU - BOTH EYES OPH PROC IV START Phi Palm M.D., Ph.D. [address] [place] [phone] Rst Oph Garber [address] [place] [phone] Referral ID Status Reason Start Date Expiration Date Visits Re quested Visits Authorized [id number] Closed 07/17/2023 07/16/2024 3 3 Encounter Details Date Type Department Care Team (Latest Contact Info) Description 07/17/2023 10:00 AM HYDRAULIC ROCK DRILL OPERATOR Procedure visit Department of Ophthalmology in [place], [place] [address] [place] [address] [phone] Phi Palm M.D., Ph.D. [address] [place] [address] [phone] Suleiman Vargas Hemorrhage Retinal Bilateral Social History Tobacco Use Types Packs/Day Years Used Date Smoking Tobacco: Never Passive Smoke Exposure: Never Smokeless Tobacco: Never Alcohol Use Standard Drinks/Week Comments Not Currently 6 (1 standard drink = 0.6 oz pur e alcohol) Occasional [facility] Utilities Answer Date Recorded In the [...] living situation today? I have a [facility] place to live 07/10/2023 Sex and Gender Information Value Date Recorded Sex Assigned at Female 05/31/2023 8:26 AM HYDRAULIC ROCK DRILL OPERATOR Gender Identity Female 05/31/2023 8:26 AM HYDRAULIC ROCK DRILL OPERATOR Sexual Orientation Straight 05/31/2023 8: 26 AM HYDRAULIC ROCK DRILL OPERATOR documented as of this encounter Progress Notes * Suleiamn Vargas - 07/17/2023 10:00 AM CST Patient was assessed for Angiogram. Verified education and informed consent has been completed. Patient fits discharge criteria; patient sent to have IV removed. : NO. If yes, mother encouraged to discard breast milk for the next 72 hours as medications used during the Angiogram can be shared with the infant through breast milk. status: NO Dr. PALM is the authorizing prescriber who directed the protocol. Patient's creatinine level is Lab Results Component Value Date CREATININE 0.90 07/04/2023 Adverse reaction noted: NONE. AULIC ROCK DRILL OPERATOR documented in this encounter Plan of Treatment Upcoming Encounters Date Type Department Care Team (Late st Contact Info) Description 08/19/2023 6:40 AM HYDRAULIC ROCK DRILL OPERATOR Appointment Department of Laboratory Medicine and Pathology, [facility] in [place], [place] [address] [place] [phone] Pérez Zuniga M.D., Ph.D. [address] [place] [phone] 08/19/2023 7:00 AM HYDRAULIC ROCK DRILL OPERATOR Ancillary Procedure Department of Cardiovascular Medicine in [address] [phone] Pérez Zuniga M.D., Ph.D. [address] [place] [phone] 08/19/2023 9:00 AM HYDRAULIC ROCK DRILL OPERATOR Appointment Department of Radiology, [facility] in [place], [place] [address] [place] [phone] Pérez Zuniga M.D., Ph.D. [address] [place] [phone] 08/19/2023 3:40 PM HYDRAULIC ROCK DRILL OPERATOR Office Visit Department of Oncology in [place], [place] [address] [place] [phone] Zhane Granados APRN, C.N.P. [address] [place] [phone] 08/21/2023 10:15 AM HYDRAULIC ROCK DRILL OPERATOR Clinical Support Department of Palliative Care in [place], [place] [address] [place] [phone] Serenity Kelsey P.A.-C. [address] [place] [phone] Meka Rinaldi D.N.Dina., R.N., [facility] documented as of this encounter Procedures Procedure Name Priority Date/Time Associated Diagnosis Comments ANGIOGRAPHY - OU - BOTH EYES Routine 07/17/2023 12:55 PM HYDRAULIC ROCK DRILL OPERATOR Hemorrhage Retinal Bilateral documented in this encounter Results * Fluorescein Angiography - OU - Both Eyes (07/17/2023 12:55 PM HYDRAULIC ROCK DRILL OPERATOR) Narrative OPHTHALMOLOGY IMAGING EXAM - 07/17/2023 7:03 PM HYDRAULIC ROCK DRILL OPERATOR Right Eye Dye used is fluorescein. Fluorescein dose given is normal. Left Eye Dye used is fluorescein. Fluorescein dose given is normal. Notes Interpretation in note Phi Palm M.D., Ph.D. OPHTH PHOTOGRA PHY OPHTHALMOLOGY IMAGING EXAM documented in this encounter Visit Diagnoses Diagnosis Hemorrhage Retinal Bilateral documented in this encounter Administered Medications Active Administered Medications - up to 3 most recent administrations Medication Order MAR Action Action Date Dose Rate Site sodium chloride 0.9 % injection 3 mL 3 mL, intravenous, As needed, line care, Starting on Sat07/10/23 at 0748 Given 07/17/2023 12:43 PM HYDRAULIC ROCK DRILL OPERATOR 3 mL Inactive Administered Medications - up to 3 most recent administrations Medication Order MAR Action Action Date Dose Rate Site fluorescein 100 mg/mL (10 %) injection 500 mg (AK-FLUOR/FLUORESCEIN) 500 mg, intravenous, Once, On Sat07/10/23 at 0815, For 1 dose Given 07/17/2023 12:42 PM HYDRAULIC ROCK DRILL OPERATOR 500 mg documented in this encounter Additional Health Concerns Infection Onset Date Last Indicated Resolved Time Protective Environment 06/04/2023 06/04/2023 documented as of this encounter Care Teams Agricultural Education Professor Relationship Specialty Start Date End Date Elsewhere, Pcp PCP - General Family Medicine 06/17/23 documented as of this encounter
--- OUTSIDE RECORDS SUMMARY | 2023-08-08 18:04 | XMS_ITS | Encounter Summary ---
Author Name Unknown Organization [facility] Address [address] [place] [address] Care Team Providers Care Heavy Duty Mechanic Farm Equipment Name Role Phone Elsewhere, Pcp Primary Care Provider Unavailabl e Encounter Details Date Type Department Care Team (Late st Contact Info) Description 07/10/2023 Orders Only Department of Ophthalmology in [place], [place] [address] [place] [phone] Ani Bashir [address] [place] [phone] Social History Tobacco Use Types Packs/Day Years Used Date Smoking Tobacco: Never Passive Smoke Exposure: Never Smokeless Tobacco: Never Alcohol Use Standard Drinks/Week Comments Not Currently 6 (1 standard drink = 0.6 oz pur e alcohol) Occasional C Utilities Answer Date Recorded In the past 12 months has [employer], gas, oil, or water [employer] threatened to shut off services in your [...] your living situation today? I have a [facility] place to live 07/10/2023 Sex and Gender Information Value Date Recorded Sex Assigned at Female 05/31/2023 8:26 AM CONFERENCE SERVICES COORDINATOR Gender Identity Female 05/31/2023 8:26 AM CONFERENCE SERVICES COORDINATOR Sexual Orientation Straight 05/31/2023 8: 26 AM CONFERENCE SERVICES COORDINATOR documented as of this encounter Plan of Treatment Upcoming Encounters Date Type Department Care Team (Late st Contact Info) Description 08/19/2023 6:40 AM CONFERENCE SERVICES COORDINATOR Appointment Department of Laboratory Medicine and Pathology, [facility] in [place], [place] [address] [place] [phone] Pérez Zuniga M.D., Ph.D. [address] [place] [phone] 08/19/2023 7:00 AM CONFERENCE SERVICES COORDINATOR Ancillary Procedure Department of Cardiovascular Medicine in [place], [place] 200 [place] [phone] Pérez Zuniga M.D., Ph.D. [address] [place] [phone] 08/19/2023 9:00 AM CONFERENCE SERVICES COORDINATOR Appointment Department of Radiology, [facility], in [place], [place] [address] [place] [phone] Pérez Zuniga M.D., Ph.D. [address] [place] [address] [phone] 08/19/2023 3:40 PM CONFERENCE SERVICES COORDINATOR Office Visit Department of Oncology in [place], [place] [address] [place] [phone] Zhane Granados APRN, C.N.P. [address] [place] [phone] 08/21/2023 10:15 AM CONFERENCE SERVICES COORDINATOR Clinical Support Department of Palliative Care in [place], [place] [address] [place] [address] [phone] Serenity Kelsey, P.A.-C. [address] [place] [address] [phone] Meka Rinaldi D.N.P., R.N., [facility] documented as of this encounter Visit Diagnoses Not on filedocumented in this encounter Additional Health Concerns Infection Onset Date Last Indicated Resolved Time Protective Environment 06/04/2023 06/04/2023 documented as of this encounter Care Teams Heavy Duty Mechanic Farm Equipment Relationship Specialty Start Date End Date Elsewhere, Pcp PCP - General Family Medicine 06/17/23 documented as of this encounter
--- OUTSIDE RECORDS SUMMARY | 2023-08-08 18:04 | XMS_ITS | Encounter Summary ---
Author Name Unknown Organization [facility] Address [address] [place] [address] Care Team Providers Care Lithographic Proofer Apprentice Name Role Phone Elsewhere, Pcp Primary Care Provider Unavailabl e Encounter Details Date Type Department Care Team (Latest Contact Info) Description 07/04/2023 9:36 AM PLUMBING HARDWARE ASSEMBLER - 07/04/2023 11:59 PM PLUMBING HARDWARE ASSEMBLER Hospital Encounter Department of Laboratory Medicine and Pathology, [facility], in [place], [place] [address] [place] [address] Pérez Zuniga M.D., Ph.D. [address] [place] [address] Melanoma Trunk (HCC); Secondary Malignant Neoplasm Bone (HCC); Other Payable Representative Current Drug Therapy Discharge Disposition: Home or Self Care Social History Tobacco Use Types Packs/Day [...] Sex Assigned at Female 05/31/2023 8:26 AM PLUMBING HARDWARE ASSEMBLER Gender Identity Female 05/31/2023 8:26 AM PLUMBING HARDWARE ASSEMBLER Sexual Orientation Straight 05/31/2023 8: 26 AM PLUMBING HARDWARE ASSEMBLER documented as of this encounter Medications at Time of Discharge Medication Sig Dispensed Refills Start Date End Date dabrafenib (TAFINLAR) 75 mg capsule Take 2 capsules (150 mg total) by mouth 2 (two) times a day. Take at least 1 hour before or 2 hours after a meal. Do not open, crush, or break. 120 capsule 2 07/02/2023 trametinib dimethyl sulfoxide (MEKINIST) 2 mg tablet Take 1 tablet (2 mg total) by mouth daily. Take at least 1 hour before or 2 hours after a meal. Keep refrigerated in original bottle. 30 tablet 2 07/02/2023 acetaminophen (TYLENOL) 500 mg tablet Take 500-1,000 mg by mouth every 6 (six) hours as needed. 0 dexAMETHasone (DECADRON) 1 mg tablet Take 1 tablet (1 mg total) by mouth every 12 (twelve) hours. 60 tablet 3 07/04/2023 11/01/2023 hydrOXYzine (ATARAX) 25 mg tablet Take 25-50 mg by mouth at bedtime as needed. 0 05/31/2023 lisinopril-hydroCHLO ROthiazide (PRINZIDE,ZESTORETIC ) 10-12.5 mg per tablet Take 1 tablet by mouth every morning. 0 01/02/2023 naloxone (NARCAN) 4 mg/actuation nasal spray Administer 1 spray (4 mg total) into one nostril as needed for reversal. Use 1 spray in 1 nostril. Repeat with second device in other nostril after 2-3 minutes if no or minimal response. 2 each 0 06/21/2023 omeprazole (PriLOSEC OTC) [address] tablet Take 20 mg by mouth every morning before breakfast. 0 05/08/2023 polyethylene glycol (MIRALAX) 17 gram powder packet Take 17 g by mouth daily. Dissolve each 17 g dose in 240 mLs (8 ounces) of beverage. 0 sennosides (senna) 8.6 mg tablet Take 8.6 mg by mouth daily. 0 morphine (MS Contin) 15 mg ER tabletIndications:Ch ronic Pain/Nonacute Pain Take 1 tablet (15 mg total) by mouth every 12 (twelve) hours Indication: Chronic Pain/Nonacute Pain. 60 tablet 0 06/24/2023 07/24/2023 oxyCODONE (ROXICODONE) 5 mg immediate release tabletIndications:Ch ronic Pain/Nonacute Pain Take 1-2 tablets (5-10 mg total) by mouth every 4 (four) hours as needed for pain Indication: Chronic Pain/Nonacute Pain. 80 tablet 0 06/21/2023 07/21/2023 ondansetron (ZOFRAN) 8 mg tablet Take 1 tablet (8 mg total) by mouth every 8 (eight) hours as needed for nausea or vomiting. 30 tablet 0 06/21/2023 07/16/2023 documented as of this encounter Plan of Treatment Upcoming Encounters Date Type Department Care Team (Late st Contact Info) Description 08/19/2023 6:40 AM PLUMBING HARDWARE ASSEMBLER Appointment Department of Laboratory Medicine and Pathology, [facility] in [place], [place] [address] [place] [phone] Pérez Zuniga M.D., Ph.D. [address] [place] [phone] 08/19/2023 7:00 AM PLUMBING HARDWARE ASSEMBLER Ancillary Procedure Department of Cardiovascular Medicine in [address] [phone] Pérez Zuniga M.D., Ph.D. [address] [place] [phone] 08/19/2023 9:00 AM PLUMBING HARDWARE ASSEMBLER Appointment Department of Radiology, [facility] in [place], [place] [address] [place] [phone] Pérez Zuniga M.D., Ph.D. [address] [place] [phone] 08/19/2023 3:40 PM PLUMBING HARDWARE ASSEMBLER Office Visit Department of Oncology in [place], [place] [address] [place] [phone] Zhane Granados APRN, C.N.P. [address] [place] [phone] 08/21/2023 10:15 AM PLUMBING HARDWARE ASSEMBLER Clinical Support Department of Palliative Care in [place], [place] [address] [place] [phone] Serenity Kelsey, PSantoshASantosh-C. 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) Other Payable Representative Current Drug Therapy COMPREHENSIVE METABOLIC PANEL, S/P Routine 07/04/2023 9:49 AM PLUMBING HARDWARE ASSEMBLER 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) Other Longterm Current Drug Therapy documented in this encounter Results * (ABNORMAL) CBC with Differential, Blood (07/04/2023 9:50 AM PLUMBING HARDWARE ASSEMBLER) Pathologist [facility] Hemoglobin 8.2(L) 11.6 - 15.0 g/dL 07/04/2023 10:56 AM PLUMBING HARDWARE ASSEMBLER [facility] Hematocrit 26.3(L) 35.5 - 44.9 % 07/04/2023 10:56 AM PLUMBING HARDWARE ASSEMBLER [facility] Erythrocytes 2.62(L) 3.92 - 5.13 x10(12)/L 07/04/2023 10:56 AM PLUMBING HARDWARE ASSEMBLER [facility] MCV 100.4(H) 78.2 - 97.9 fL 07/04/2023 10:56 AM PLUMBING HARDWARE ASSEMBLER [facility] RBC Distrib Width 17.5(H) 12.2 - 16.1 % 07/04/2023 10:56 AM PLUMBING HARDWARE ASSEMBLER [facility] Platelet Count 701(H) 157 - 371 x10(9)/L 07/04/2023 10:56 AM PLUMBING HARDWARE ASSEMBLER [facility] Leukocytes 9.9(H) 3.4 - 9.6 x10(9)/L 07/04/2023 10:56 AM PLUMBING HARDWARE ASSEMBLER [facility] Neutrophils 5.27 1.56 - 6.45 x10(9)/L 07/04/2023 10:56 AM PLUMBING HARDWARE ASSEMBLER [facility] Lymphocytes 3.81(H) 0.95 - 3.07 x10(9)/L 07/04/2023 10:56 AM PLUMBING HARDWARE ASSEMBLER [facility] Monocytes 0.63 0.26 - 0.81 x10(9)/L 07/04/2023 10:56 AM PLUMBING HARDWARE ASSEMBLER [facility] Eosinophils 0.10 0.03 - 0.48 x10(9)/L 07/04/2023 10:56 AM PLUMBING HARDWARE ASSEMBLER [facility] Basophils 0.12(H) 0.01 - 0.08 x10(9)/L 07/04/2023 10:56 AM PLUMBING HARDWARE ASSEMBLER [facility] Blood (Blood, Venous) 07/04/2023 9:50 AM PLUMBING HARDWARE ASSEMBLER 07/04/2023 10:11 AM PLUMBING HARDWARE ASSEMBLER Pérez Zuniga M.D., Ph.D. LAB BLOO D ADD-ON Performing Organization Address City/State/[facility] Co de Phone Number [facility] [address] [place] [address], [facility] [address] [place] [address] * Thyroid Function [place] (07/04/2023 9:49 AM PLUMBING HARDWARE ASSEMBLER) [facility] TSH, Sensitive 2.3 0.3 - 4.2 mIU/L 07/04/2023 11:05 AM PLUMBING HARDWARE ASSEMBLER DTL Blood (Blood, Venous) 07/04/2023 9:49 AM PLUMBING HARDWARE ASSEMBLER 07/04/2023 10:29 AM PLUMBING HARDWARE ASSEMBLER Pérez Zuniga M.D., Ph.D. LAB BLOO D ADD-ON [facility] [place] [employer] [address] [place] [address], [place] DTL [facility] [address] [place] [address] * (ABNORMAL) Comprehensive Metabolic Panel (07/04/2023 9:49 AM PLUMBING HARDWARE ASSEMBLER) Potassium, S 4.7 3.6 - 5.2 mmol/L 07/04/2023 11:05 AM PLUMBING HARDWARE ASSEMBLER DTL Sodium, S 137 135 - 145 mmol/L 07/04/2023 11:05 AM PLUMBING HARDWARE ASSEMBLER DTL Chloride, S 103 98 - 107 mmol/L 07/04/2023 11:05 AM PLUMBING HARDWARE ASSEMBLER DTL Bicarbonate, S 24 22 - 29 mmol/L 07/04/2023 11:05 AM PLUMBING HARDWARE ASSEMBLER DTL Anion Gap 10 7 - 15 07/04/2023 11:05 AM PLUMBING HARDWARE ASSEMBLER DTL BUN (Blood Urea Nitrogen), S 22(H) 6 - 21 mg/dL 07/04/2023 11:05 AM PLUMBING HARDWARE ASSEMBLER DTL Creatinine 0.90 0.59 - 1.04 mg/dL 07/04/2023 11:05 AM PLUMBING HARDWARE ASSEMBLER DTL Estimated GFR (eGFR) 80 >=60 mL/min/BS A 07/04/2023 11:05 AM PLUMBING HARDWARE ASSEMBLER DTL Comment: Estimated GFR calculated using the 2020 CKD_EPI creatinine equation. Calcium, Total, S 9.9 8.6 - 10.0 mg/dL 07/04/2023 11:05 AM PLUMBING HARDWARE ASSEMBLER DTL Glucose, S 98 70 - 140 mg/dL 07/04/2023 11:05 AM PLUMBING HARDWARE ASSEMBLER DTL Protein, Total, S 7.7 6.3 - 7.9 g/dL 07/04/2023 11:05 AM PLUMBING HARDWARE ASSEMBLER DTL Albumin, S 4.3 3.5 - 5.0 g/dL 07/04/2023 11:05 AM PLUMBING HARDWARE ASSEMBLER DTL Aspartate Aminotransferase (AST), S 26 8 - 43 U/L 07/04/2023 11:05 AM PLUMBING HARDWARE ASSEMBLER DTL Alkaline Phosphatase, S 229(H) 35 - 104 U/L 07/04/2023 11:05 AM PLUMBING HARDWARE ASSEMBLER DTL Alanine Aminotransferase (ALT), S 24 7 - 45 U/L 07/04/2023 11:05 AM PLUMBING HARDWARE ASSEMBLER DTL Bilirubin, Total, S 0.2 0.0 - 1.2 mg/dL 07/04/2023 11:05 AM PLUMBING HARDWARE ASSEMBLER DTL Blood (Blood, Venous) 07/04/2023 9:49 AM PLUMBING HARDWARE ASSEMBLER 07/04/2023 10:29 AM PLUMBING HARDWARE ASSEMBLER Pérez Zuniga M.D., Ph.D. 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
--- OUTSIDE RECORDS SUMMARY | 2023-08-08 18:04 | XMS_ITS | Encounter Summary ---
Author Name Unknown Organization [facility] Address [address] [place] [address] Care Team Providers Care Gi Tech Name Role Phone Elsewhere, Pcp Primary Care Provider Unavailabl e Reason for Referral * Outpatient (Routine) - Authorized Specialty Diagnoses / Procedures Referred By Contac t Referred To Contact Diagnoses Melanoma Trunk (HCC) Nausea Procedures ECG 12 Lead Pérez Zuniga M.D., Ph.D. [address] [place] [phone] [facility] Referral ID Status Reason Start Date Expiration Date V isits Requested Visits Authorized [id number] Authorized 07/04/2023 07/03/2024 1 1 O RETOUCHER * MRI/CAT/PET Scan (Routine) - Authorized Specialty Diagnoses / Procedures Referred By Contac t Referred To Contact Diagnoses Melanoma Trunk (HCC) Nausea Procedures PET CT Skull to Thigh FDG Pérez Zuniga M.D., Ph.D. [address] [place] [phone] [facility] Referral ID Status Reason Start Date Expiration Date V isits Requested Visits Authorized [id number] Authorized 07/04/2023 07/03/2024 1 1 O RETOUCHER * Outpatient (Routine) - Authorized Specialty Diagnoses / Procedures Referred By Mikki feliciano Referred To Contact Oncology Pérez Zuniga M.D., Ph.D. [address] [place] [phone] [facility] Referral ID Status Reason Start Date Expiration Date V isits Requested Visits Authorized [id number] Authorized 07/04/2023 07/03/2026 1 1 O RETOUCHER Reason for Visit * Outpatient (Routine) - Closed Specialty Diagnoses / Procedures Referred By Mikki feliciano Referred To Contact Oncology Pérez Zuniga M.D., Ph.D. [address] [place] [phone] [facility] Referral ID Status Reason Start Date Expiration Date Visits Re quested Visits Authorized [id number] Closed 06/20/2023 06/19/2026 1 1 Encounter Details Date Type Department Care Team (Late st Contact Info) Description 07/04/2023 12:20 PM PHOTO RETOUCHER Office Visit Department of Oncology in [place], [place] [address] [place] [phone] Pérez Zuniga M.D., Ph.D. [address] [place] [phone] Melanoma Trunk (HCC) (Primary Dx); Nausea Social History Tobacco Use Types Packs/Day [...] Sex Assigned at Female 05/31/2023 8:26 AM PHOTO RETOUCHER Gender Identity Female 05/31/2023 8:26 AM PHOTO RETOUCHER Sexual Orientation Straight 05/31/2023 8: 26 AM PHOTO RETOUCHER documented as of this encounter Progress Notes * Pérez Zuniga M.D., Ph.D. 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 Cota returns for follow-up of melanoma. She feels a lot better with the DT treatment; pain control is stable. ECOG performance status is 0. MEDICAL/SURGICAL HISTORY Past Medical History: Diagnosis Date Hypertension NOS 07/2020 Melanoma Skin (HCC) 05/24/23 Past Surgical History: Procedure Laterality Date TONSILLECTOMY 1995 REVIEW OF SYSTEMS Pertinent items are noted in HPI; all other review of systems were negative. I reviewed the Medications, Allergies, Past Medical History, Social History, and Family History. OBJECTIVE VITAL SIGNS There were no vitals filed for this visit. No data recorded PHYSICAL EXAMINATION General: Alert female, in no acute distress. Ambulates on and off the exam table without difficulty. ASSESSMENT / PLAN Metastatic malignant melanoma, unknown primary, BRAF V600E positive, currently on Dabrafenib at 75 QAM + 150 QPM and Trametinib at 2 mg QD, doing well with DXM 1 mg BID. Mrs. Cota is doing well, feeling a lot better and able to move her LUE (abduct) to about 45 degrees. This is a significant improvement compared to pre-Rx. She is tolerating DT very well with the addition of a small dose of DXM. We will go up to full dose DT today and have her return to see us in 4 weeks with body imaging to assess response. Considering the aggressive nature of her melanoma, I am planning on adding anti-PD1 therapy in the next 1-3 months (+ DT). Mrs. Cota and family were very appreciative of the visit. Pain control. Mrs. Cota is doing very well on scheduled Tylenol and oxycodone; no need for additional treatments at this time. She tried to stop the medication for a couple of days with poor results. She is back on treatment as prescribed. I am very appreciative of the help from our colleagues in Palliative Medicine. PATIENT EDUCATION: Ready to learn, no apparent learning barriers were identified; learning preferences include listening. Explained diagnosis and treatment plan; patient expressed understanding of the content. ADMINISTRATIVE BILLING: I personally spent over half of a total 30 minutes face to face with the patient in counseling and discussion and/or coordination of care as described above. O RETOUCHER documented in this encounter Plan of Treatment Upcoming Encounters Date Type Department Care Team (Late st Contact Info) Description 08/19/2023 6:40 AM PHOTO RETOUCHER Appointment Department of Laboratory Medicine and Pathology, [facility] in [place], [place] [address] [place] [phone] Pérez Zuniga M.D., Ph.D. [address] [place] [phone] 08/19/2023 7:00 AM PHOTO RETOUCHER Ancillary Procedure Department of Cardiovascular Medicine in [place], [place] [address] [place] [phone] Pérez Zuniga M.D., Ph.D. [address] [place] [phone] 08/19/2023 9:00 AM PHOTO RETOUCHER Appointment Department of Radiology, [facility] in [place], [place] [address] [place] [phone] Pérez Zuniga M.D., Ph.D. [address] [place] [phone] 08/19/2023 3:40 PM PHOTO RETOUCHER Office Visit Department of Oncology in [place], [place] [address] [place] [phone] Zhane Granados APRN, C.N.P. [address] [place] [phone] 08/21/2023 10:15 AM PHOTO RETOUCHER Clinical Support Department of Palliative Care in [place], [place] [address] [place] [phone] Serenity Kelsey PSantoshASantosh-Price [address] [place] [phone] Meka Rinaldi D.N.P., R.N., [facility] Scheduled Orders Name Type Priority Associated Diagnoses Order Schedule PET CT Skull to Thigh FDG Imaging RAD - Routine (most inpatients and all outpatients) Melanoma Trunk (HCC) Nausea Expected: 08/01/2023 (Approximate), Expires: 10/02/2024 CBC with Differential, Blood Lab Routine Melanoma Trunk (HCC) Nausea Expected: 08/01/2023 (Approximate), Expires: 07/04/2024 Comprehensive Metabolic Panel Lab Routine Melanoma Trunk (HCC) Nausea Expected: 08/01/2023 (Approximate), Expires: 07/04/2024 Thyroid Function [facility] Routine Melanoma Trunk (HCC) Nausea Expected: 08/01/2023 (Approximate), Expires: 07/04/2024 ECG 12 Lead ECG Routine Melanoma Trunk (HCC) Nausea Expected: 08/04/2023 (Approximate), Expires: 10/02/2024 Scheduled Referrals Name Type Priority Associated Diagnoses Orde r Schedule Oncology office visit (clinic) Outpatient Referral Routine Expected: 08/01/2023 (Approximate), Expires: 10/02/2024 documented as of this encounter Visit Diagnoses Diagnosis Melanoma Trunk (HCC)- Primary Nausea documented in this encounter Additional Health Concerns Infection Onset Date Last Indicated Resolved Time Protective Environment 06/04/2023 06/04/2023 documented as of this encounter Care Teams Gi Tech Relationship Specialty Start Date End Date Elsewhere, Pcp PCP - General Family Medicine 06/17/23 documented as of this encounter
--- OUTSIDE RECORDS SUMMARY | 2023-08-08 18:04 | XMS_ITS | Encounter Summary ---
Author Name Unknown Organization [facility] Address [address] [place] [address] Care Team Providers Care Six Pack Loader Operator Name Role Phone Elsewhere, Pcp Primary Care Provider Unavailabl e Encounter Details Date Type Department Care Team (Late st Contact Info) Description 07/17/2023 12:05 AM BACK PADDER Ancillary Procedure Department of Dermatology Social History Tobacco Use Types Packs/Day Years Used Date Smoking Tobacco: Never Passive Smoke Exposure: Never Smokeless Tobacco: Never Alcohol Use Standard Drinks/Week Comments Not Currently 6 (1 standard drink = 0.6 oz pur e alcohol) Occasional C Utilities Answer Date Recorded In the past 12 months has [employer] electric, gas, oil, or water company threatened [...] your living situation today? I have a [facility] place to live 07/10/2023 Sex and Gender Information Value Date Recorded Sex Assigned at Female 05/31/2023 8:26 AM BACK PADDER Gender Identity Female 05/31/2023 8:26 AM BACK PADDER Sexual Orientation Straight 05/31/2023 8: 26 AM BACK PADDER documented as of this encounter Plan of Treatment Upcoming Encounters Date Type Department Care Team (Late st Contact Info) Description 08/19/2023 6:40 AM BACK PADDER Appointment Department of Laboratory Medicine and Pathology, [place], [place] [address] [place] [phone] Pérez Zuniga M.D., Ph.D. [address] [place] [phone] 08/19/2023 7:00 AM BACK PADDER Ancillary Procedure Department of Cardiovascular Medicine in [place], [place] [address] [place] [phone] Pérez Zuniga M.D., Ph.D. [address] [place] [phone] 08/19/2023 9:00 AM BACK PADDER Appointment Department of Radiology, [facility] in [place], [place] [address] [place] [phone] Pérez Zuniga M.D., Ph.D. [address] [place] [phone] 08/19/2023 3:40 PM BACK PADDER Office Visit Department of Oncology in [place], [place] [address] [place] [phone] Zhane Granados, GAIL, C.N.P. [address] [place] [phone] 08/21/2023 10:15 AM BACK PADDER Clinical Support Department of Palliative Care in [place], [place] [address] [place] [phone] Serenity Kelsey P.A.-C. [address] [place] [phone] Meka Rinaldi D.N.P., R.N., [facility] documented as of this encounter Procedures Procedure Name Priority Date/Time Associated Diagnosis Comments DERMATOLOGY IMAGE EXAM Routine 07/17/2023 12:05 AM BACK PADDER documented in this encounter Results * Back 527 Dermoscopy-Dermatology Image Exam (07/17/2023 12:05 AM BACK PADDER) Narrative [facility]IM[facility] - 07/18/2023 7:21 AM BACK PADDER This order has been created and auto-finalized to support the import of images acquired without order. The clinical documentation to support these images can be found on the encounter that produced images. Provider Not In System IMG NON RAD IMAGI NG PROCEDURES IIMD NA documented in this encounter Visit Diagnoses Not on filedocumented in this encounter Additional Health Concerns Infection Onset Date Last Indicated Resolved Time Protective Environment 06/04/2023 06/04/2023 documented as of this encounter Care Teams Six Pack Loader Operator Relationship Specialty Start Date End Date Elsewhere, Pcp PCP - General Family Medicine 06/17/23 documented as of this encounter
--- OUTSIDE RECORDS SUMMARY | 2023-08-08 18:04 | XMS_ITS | Encounter Summary ---
Author Name Unknown Organization [facility] Address [address] [place] [address] Care Team Providers Care Claims Counsel Name Role Phone Elsewhere, Pcp Primary Care Provider Unavailabl e Reason for Visit * Outpatient (Routine) - Closed Specialty Diagnoses / Procedures Referred By Mikki feliciano Referred To Contact Ophthalmology Phi Palm M.D., Ph.D. [address] [place] [address] [facility] Referral ID Status Reason Start Date Expiration Date Visits Re quested Visits Authorized [id number] Closed 07/05/2023 07/04/2026 1 1 Encounter Details Date Type Department Care Team (Latest Contact Info) Description 07/17/2023 11:45 AM CURATOR MEDICAL MUSEUM Office Visit Department of Ophthalmology in [place], [place] [address] [place] [phone] Wolfgang Larose M.D. [address] [place] [phone] Hemorrhage Retinal Bilateral (Primary Dx); Melanoma Trunk (HCC) Social History Tobacco Use Types Packs/Day Years Used Date Smoking Tobacco: Never Passive Smoke Exposure: Never Smokeless Tobacco: Never Alcohol Use Standard Drinks/Week Comments Not Currently 6 (1 standard drink = 0.6 oz pur e alcohol) Occasional [facility] Utilities Answer Date Recorded In the past [...] your living situation today? I have a [facility] place to live 07/10/2023 Sex and Gender Information Value Date Recorded Sex Assigned at Female 05/31/2023 8:26 AM CURATOR MEDICAL MUSEUM Gender Identity Female 05/31/2023 8:26 AM CURATOR MEDICAL MUSEUM Sexual Orientation Straight 05/31/2023 8: 26 AM CURATOR MEDICAL MUSEUM documented as of this encounter Progress Notes * Wolfgang Larose M.D. - 07/17/2023 11:45 AM CST # Retinal hemorrhage, both eyes Retinal hemorrhages resolved today with no evidence of exam. Fundus photos do not demonstrate heme as well and fluorescein angiography is WNL without evidence of vascular abnormality. She has been anemic, which may have contributed. Given that they have resolved and she denies any symptoms, no further w/up recommended at this time. She will contact with any new vision symptoms. Plan: - Recommend yearly dilated exams # Metastatic melanoma Dabrafenib at 75 QAM + 150 QPM and Trametinib at 2 mg QD, doing well with DXM [address] Ingram [employer] documented in this encounter Plan of Treatment Upcoming Encounters Date Type Department Care Team (Late st Contact Info) Description 08/19/2023 6:40 AM CURATOR [employer] M[employer]UM Appointment Department of Laboratory Medicine and Pathology, [facility] in [address] [phone] Pérez Zuniga M.D., Ph.D. [address] [place] [phone] 08/19/2023 7:00 AM [employer] Ancillary Procedure Department of Cardiovascular Medicine in [address] [phone] Pérez Zuniga M.D., Ph.D. [address] [place] [phone] 08/19/2023 9:00 AM CURATOR [employer]ICAL M[employer]UM Appointment Department of Radiology, [facility] in [address] [phone] Pérez Zuniga M.D., Ph.D. [address] [place] [phone] 08/19/2023 3:40 PM [employer] Office Visit Department of Oncology in [address] [phone] Zhane Granados APRN, C.N.P. [address] [place] [phone] 08/21/2023 10:15 AM [employer] Clinical Support Department of Palliative Care in [place], [place] [address] [place] [phone] Serenity Kelsey P.A.-C. [address] [place] [address] Meka Rinaldi D.N.P., R.N., [facility] documented as of this encounter Visit Diagnoses Diagnosis Hemorrhage Retinal Bilateral- Primary Melanoma Trunk (HCC) documented in this encounter Additional Health Concerns Infection Onset Date Last Indicated Resolved Time Protective Environment 06/04/2023 06/04/2023 documented as of this encounter Care Teams Claims Counsel Relationship Specialty Start Date End Date Elsewhere, Pcp PCP - General Family Medicine 06/17/23 documented as of this encounter
--- OUTSIDE RECORDS SUMMARY | 2023-08-08 18:04 | XMS_ITS | Encounter Summary ---
Author Name Unknown Organization [facility] Address [address] [place] [address] Care Team Providers Care Sales Development Consultant Name Role Phone Elsewhere, Pcp Primary Care Provider Unavailabl e Reason for Visit * Reason Onset Date Comments Sx - retinal hemorrhaging 07/05/2023 Encounter Details Date Type Department Care Team (Latest Contact Info) Description 07/05/2023 Clinical Communication Department of Oncology in [place], [place] [address] [place] [address] Anahy Amezcua, RSantoshN., O.C.N. [address] [place] [address] Sx - retinal hemorrhaging Social History Tobacco Use Types Packs/Day Years [...] Sex Assigned at Female 05/31/2023 8:26 AM INSURANCE BILLING SPECIALIST Gender Identity Female 05/31/2023 8:26 AM INSURANCE BILLING SPECIALIST Sexual Orientation Straight 05/31/2023 8: 26 AM INSURANCE BILLING SPECIALIST documented as of this encounter Miscellaneous Notes * Telephone Encounter - Efrain, Svetomir N, M.D., Ph.D. - 07/05/2023 8:52 AM CST I spoke to the patient. A routine eye exam at [facility] demonstrated minimal evidence of retinal pooling of blood (per Mrs. Cota) and she was referred to a retina specialist. This is completely asymptomatic. It may be related to her medication, but this would be very unusual. At this point, I agree with the plan to be seen by a retina specialist, but we cannot afford to hold treatment in the face of response to therapy. We will continue on Dab/Tram and re-evaluate after her visit with the ophthalmologists and restaging imaging. Mrs. Cota was very appreciative of the call. RANCE BILLING SPECIALIST documented in this encounter Plan of Treatment Upcoming Encounters Date Type Department Care Team (Late st Contact Info) Description 08/19/2023 6:40 AM INSURANCE BILLING SPECIALIST Appointment Department of Laboratory Medicine and Pathology, [place], [place] [address] [place] [phone] Pérez Zuniga M.D., Ph.D. [address] [place] [phone] 08/19/2023 7:00 AM INSURANCE BILLING SPECIALIST Ancillary Procedure Department of Cardiovascular Medicine in [place], [place] [address] [place] [phone] Pérez Zuniga M.D., Ph.D. [address] [place] [phone] 08/19/2023 9:00 AM INSURANCE BILLING SPECIALIST Appointment Department of Radiology, [facility] in [place], [place] [address] [place] [phone] Pérez Zuniga M.D., Ph.D. [address] [place] [phone] 08/19/2023 3:40 PM INSURANCE BILLING SPECIALIST Office Visit Department of Oncology in [place], [place] [address] [place] [phone] Zhane Granados APRN, C.N.P. [address] [place] [phone] 08/21/2023 10:15 AM INSURANCE BILLING SPECIALIST Clinical Support Department of Palliative Care in [place], [place] [address] [place] [phone] Serenity Kelsey, P.A.-C. [address] [place] [phone] Meka Rinaldi D.N.P., R.N., [facility] documented as of this encounter Visit Diagnoses Not on filedocumented in this encounter Additional Health Concerns Infection Onset Date Last Indicated Resolved Time Protective Environment 06/04/2023 06/04/2023 documented as of this encounter Care Teams Sales Development Consultant Relationship Specialty Start Date End Date Elsewhere, Pcp PCP - General Family Medicine 06/17/23 documented as of this encounter
--- OUTSIDE RECORDS SUMMARY | 2023-08-08 18:04 | XMS_ITS | Encounter Summary ---
Author Name Unknown Organization [facility] Address [address] [place] [address] Care Team Providers Care Brush Finisher Name Role Phone Elsewhere, Pcp Primary Care Provider Unavailabl e Encounter Details Date Type Department Care Team (Late st Contact Info) Description 07/17/2023 Ancillary Procedure Department of Ophthalmology Social History Tobacco Use Types Packs/Day Years [...] your living situation today? I have a [facility] place to live 07/10/2023 Sex and Gender Information Value Date Recorded Sex Assigned at Female 05/31/2023 8:26 AM MARINE BIOLOGIST Gender Identity Female 05/31/2023 8:26 AM MARINE BIOLOGIST Sexual Orientation Straight 05/31/2023 8: 26 AM MARINE BIOLOGIST documented as of this encounter Plan of Treatment Upcoming Encounters Date Type Department Care Team (Late st Contact Info) Description 08/19/2023 6:40 AM MARINE BIOLOGIST Appointment Department of Laboratory Medicine and Pathology, [facility] in [place], [place] [address] [place] [phone] Pérez Zuniga M.D., Ph.D. [address] [place] [phone] 08/19/2023 7:00 AM MARINE BIOLOGIST Ancillary Procedure Department of Cardiovascular Medicine in [place], [place] [address] [place] [phone] Pérez Zuniga M.D., Ph.D. [address] [place] [phone] 08/19/2023 9:00 AM MARINE BIOLOGIST Appointment Department of Radiology, [facility] in [place], [place] [address] [place] [address] Pérze Zuniga M.D., Ph.D. [address] [place] [phone] 08/19/2023 3:40 PM MARINE BIOLOGIST Office Visit Department of Oncology in [place], [place] [address] [place] [phone] Zhane Granados APRN, C.N.P. [address] [place] [phone] 08/21/2023 10:15 AM MARINE BIOLOGIST Clinical Support Department of Palliative Care in [place], [place] [address] [place] [phone] Serenity Kelsey P.A.-Harsha. [address] [place] [phone] Meka Rinaldi D.N.P., R.N., [facility] documented as of this encounter Procedures Procedure Name Priority Date/Time Associated Diagnosis Comments OPHTHALMOLOGY IMAGE EXAM Routine 07/17/2023 12:00 AM MARINE BIOLOGIST documented in this encounter Results * Eyes Color-Ophthalmology Image Exam (07/17/2023 12:00 AM MARINE BIOLOGIST) Narrative IIMS - 07/17/2023 11:51 AM MARINE BIOLOGIST This order has been created and auto-finalized to support the import of images acquired without order. The clinical documentation to support these images can be found on the encounter that produced images. Provider Not In System IMG NON RAD IMAGI NG PROCEDURES IIIN NA documented in this encounter Visit Diagnoses Not on filedocumented in this encounter Additional Health Concerns Infection Onset Date Last Indicated Resolved Time Protective Environment 06/04/2023 06/04/2023 documented as of this encounter Care Teams Brush Finisher Relationship Specialty Start Date End Date Elsewhere, Pcp PCP - General Family Medicine 06/17/23 documented as of this encounter
--- OUTSIDE RECORDS SUMMARY | 2023-08-08 18:04 | XMS_ITS | Encounter Summary ---
Author Name Unknown Organization [facility] Address [address] [place] [address] Care Team Providers Care Health Education Aide Name Role Phone Elsewhere, Pcp Primary Care Provider Unavailabl e Encounter Details Date Type Department Care Team (Late st Contact Info) Description 07/17/2023 12:45 PM RECEPTIONIST TELEPHONE OPERATOR Ancillary Procedure Department of Ophthalmology Social History Tobacco Use Types Packs/Day Years Used Date Smoking Tobacco: Never Passive Smoke Exposure: Never Smokeless Tobacco: Never Alcohol Use Standard Drinks/Week Comments Not Currently 6 (1 standard drink = 0.6 oz pur e alcohol) Occasional [facility] Utilities Answer Date Recorded In the past 12 months has Company [employer], gas, oil, or water company threatened [...] living situation today? I have a [facility] place to live 07/10/2023 Sex and Gender Information Value Date Recorded Sex Assigned at Female 05/31/2023 8:26 AM RECEPTIONIST TELEPHONE OPERATOR Gender Identity Female 05/31/2023 8:26 AM RECEPTIONIST TELEPHONE OPERATOR Sexual Orientation Straight 05/31/2023 8: 26 AM RECEPTIONIST TELEPHONE OPERATOR documented as of this encounter Plan of Treatment Upcoming Encounters Date Type Department Care Team (Late st Contact Info) Description 08/19/2023 6:40 AM RECEPTIONIST TELEPHONE OPERATOR Appointment Department of Laboratory Medicine and Pathology, [place], [place] [address] [place] [address] Pérez Zuniga M.D., Ph.D. [address] [place] [phone] 08/19/2023 7:00 AM RECEPTIONIST TELEPHONE OPERATOR Ancillary Procedure Department of Cardiovascular Medicine in [place], [place] [address] [place] [phone] Pérez Zuniga M.D., Ph.D. [address] [place] [phone] 08/19/2023 9:00 AM RECEPTIONIST TELEPHONE OPERATOR Appointment Department of Radiology, [facility] in [place], [place] [address] [place] [phone] Pérez Zuniga M.D., Ph.D. [address] [place] [phone] 08/19/2023 3:40 PM RECEPTIONIST TELEPHONE OPERATOR Office Visit Department of Oncology in [place], [place] [address] [place] [phone] Zhane Granados APRN, C.N.P. [address] [place] [phone] 08/21/2023 10:15 AM RECEPTIONIST TELEPHONE OPERATOR Clinical Support Department of Palliative Care in [place], [place] [address] [place] [phone] Serenity Kelsey P.A.-C. [address] [place] [phone] Meka Rinaldi D.N.P., R.N., [facility] documented as of this encounter Procedures Procedure Name Priority Date/Time Associated Diagnosis Comments OPHTHALMOLOGY IMAGE EXAM Routine 07/17/2023 12:45 PM RECEPTIONIST TELEPHONE OPERATOR documented in this encounter Results * [employer]-Ophthalmology Image Exam (07/17/2023 12:45 PM RECEPTIONIST TELEPHONE OPERATOR) 07/17/2023 12:4 5 PM RECEPTIONIST TELEPHONE OPERATOR Narrative IIMS - 07/17/2023 1:03 PM RECEPTIONIST TELEPHONE OPERATOR This order has been created and auto-finalized to support the import of images acquired without order. The clinical documentation to support these images can be found on the encounter that produced images. Provider Not In System IMG NON RAD IMAGI NG PROCEDURES IIMS NA documented in this encounter Visit Diagnoses Not on filedocumented in this encounter Additional Health Concerns Infection Onset Date Last Indicated Resolved Time Protective Environment 06/04/2023 06/04/2023 documented as of this encounter Care Teams Health Education Aide Relationship Specialty Start Date End Date Elsewhere, Pcp PCP - General Family Medicine 06/17/23 documented as of this encounter
--- OUTSIDE RECORDS SUMMARY | 2023-08-08 18:04 | XMS_ITS | Encounter Summary ---
Author Name Unknown Organization [facility] Address [address] [place] [address] Care Team Providers Care Furniture Reproducer Name Role Phone Elsewhere, Pcp Primary Care Provider Unavailabl e Reason for Referral * Outpatient (Routine) - Closed Specialty Diagnoses / Procedures Referred By Mikki t Referred To Contact Ophthalmology Phi Palm M.D., Ph.D. [address] [place] [phone] [facility] Referral ID Status Reason Start Date Expiration Date Visits Re quested Visits Authorized [id number] Closed 07/05/2023 07/04/2026 [address] Larose LE CARVER Encounter Details Date Type Department Care Team (Latest Contact Info) Description 07/05/2023 2:30 PM MARBLE CARVER Comprehensive Visit Department of Ophthalmology in [place], [place] [address] [place] [phone] Wolfgang Larose M.D. [address] [place] [phone] Hemorrhage Retinal Bilateral (Primary Dx) Social History Tobacco Use Types Packs/Day Years [...] Sex Assigned at Female 05/31/2023 8:26 AM MARBLE CARVER Gender Identity Female 05/31/2023 8:26 AM MARBLE CARVER Sexual Orientation Straight 05/31/2023 8: 26 AM MARBLE CARVER documented as of this encounter Progress Notes * Phi Palm M.D., Ph.D. - 07/05/2023 2:30 PM CST # Retinal hemorrhage, both eyes [facility] seeing for Dr. Larose to expedite care in [facility] She had an asymptomatic visit to [facility] yesterday and was found to have retinal hemorrhages. I agree, there is one small hemorrhage in the right eye and three in the left, one being white centered. She is on monoclonal antibody chemotherapy for metastatic melanoma as well as Dexamethasone 2mg daily for symptom control for the chemotherapy These appear low risk, I recommended fundus photo and FA transit left, next available. She will be back in [place] Jul 17. Will request photography then. She will call us for any visualsymptoms in the interim. # Metastatic melanoma Dabrafenib at 75 QAM + 150 QPM and Trametinib at 2 mg QD, doing well with DXM 1 mg BID. LE CARVER documented in this encounter Plan of Treatment Upcoming Encounters Date Type Department Care Team (Late st Contact Info) Description 08/19/2023 6:40 AM MARBLE CARVER Appointment Department of Laboratory Medicine and Pathology, [facility], in [place], [place] [address] [place] [phone] Pérez Zuniga M.D., Ph.D. [address] [place] [address] 08/19/2023 7:00 AM MARBLE CARVER Ancillary Procedure Department of Cardiovascular Medicine in [place], [place] [address] [place] [phone] Pérez Zuniga M.D., Ph.D. [address] [place], [place] [phone] 08/19/2023 9:00 AM MARBLE CARVER Appointment Department of Radiology, [facility] in [place], [place] [address] [place] [phone] Pérez Zuniga M.D., Ph.D. [address] [place] [phone] 08/19/2023 3:40 PM MARBLE CARVER Office Visit Department of Oncology in [address] [place] [address] [phone] Zhane Granados, GAIL, C.N.P. [address] [place] [phone] 08/21/2023 10:15 AM MARBLE CARVER Clinical Support Department of Palliative Care in [address] [place] [address] [phone] Serenity Kelsey, P.A.-C. [address] [place] [phone] Meka Rinaldi D.N.P., R.N., [facility] Scheduled Referrals Name Type Priority Associated Diagnoses Order Schedule Ophthalmology office visit (clinic) Outpatient Referral Routine Expected: 07/17/2023, Expires: 10/03/2024 documented as of this encounter Results * Fluorescein Angiography - OU - Both Eyes (07/17/2023 12:55 PM MARBLE CARVER) Narrative OPHTHALMOLOGY IMAGING EXAM - 07/17/2023 7:03 PM MARBLE CARVER Right Eye Dye used is fluorescein. Fluorescein dose given is normal. Left Eye Dye used is fluorescein. Fluorescein dose given is normal. Notes Interpretation in note Phi Palm M.D., Ph.D. TAYLA PHOTOSELVIN PEÑA Performing Organization Address City/[facility]/ZIP Co de Phone Number OPHTHALMOLOGY IMAGING EXAM * Fundus Photos - OU - Both Eyes (07/17/2023 11:52 AM MARBLE CARVER) Narrative OPHTHALMOLOGY IMAGING EXAM - 07/17/2023 7:03 PM MARBLE CARVER Right Eye Field of view is standard view. Fundus photo type obtained is Color. Left Eye Field of view is standard view. Fundus photo type obtained is Color. Notes Interpretation in note Phi Palm M.D., Ph.D. TAYLA PHOTOSELVIN PEÑA Performing Organization Address [facility] de Phone Number OPHTHALMOLOGY IMAGING EXAM documented in this encounter Visit Diagnoses Diagnosis Hemorrhage Retinal Bilateral- Primary Hemorrhage Retinal Bilateral Hemorrhage Retinal Bilateral documented in this encounter Additional Health Concerns Infection Onset Date Last Indicated Resolved Time Protective Environment 06/04/2023 06/04/2023 documented as of this encounter Care Teams Furniture Reproducer Relationship Specialty Start Date End Date Elsewhere, Pcp PCP - General Family Medicine 06/17/23 documented as of this encounter
--- OUTSIDE RECORDS SUMMARY | 2023-08-08 18:05 | XMS_ITS | Encounter Summary ---
Author Name Unknown Organization [facility] Address [address] [place] [address] Care Team Providers Care Correspondent Name Role Phone Elsewhere, Pcp Primary Care Provider Unavailabl e Encounter Details Date Type Department Care Team (Latest Contact Info) Description 06/20/2023 11:46 AM [facility] CHIEF - 06/20/2023 12:06 PM [employer] Hospital Encounter Department of Laboratory Medicine and Pathology, [facility], in [place], [place] [address] [place] [address] Pérez Zuniga M.D., Ph.D. [address] [place] [phone] Melanoma Trunk (HCC); Secondary Malignant Neoplasm Bone (HCC) Discharge Disposition: Home or Self Care Social [...] Sex Assigned at Female 05/31/2023 8:26 AM [facility] [facility]IEF Gender Identity Female 05/31/2023 8:26 AM [employer] [facility] CHIEF Sexual Orientation Straight 05/31/2023 8: 26 AM [employer] [facility] [employer]IEF documented as of this encounter Medications at Time of Discharge Medication Sig Dispensed Refills Start Date End Date acetaminophen (TYLENOL) 500 mg tablet Take 500-1,000 mg by mouth every 6 (six) hours as needed. 0 hydrOXYzine (ATARAX) 25 mg tablet Take 25-50 mg by mouth at bedtime as needed. 0 05/31/2023 lisinopril-hydroCHLO ROthiazide (PRINZIDE,ZESTORETIC ) 10-12.5 mg per tablet Take 1 tablet by mouth every morning. 0 01/02/2023 omeprazole (PriLOSEC OTC) [address] tablet Take 20 mg by mouth every morning before breakfast. 0 05/08/2023 polyethylene glycol (MIRALAX) 17 gram powder packet Take 17 g by mouth daily. Dissolve each 17 g dose in 240 mLs (8 ounces) of beverage. 0 sennosides (senna) 8.6 mg tablet Take 8.6 mg by mouth daily. 0 dabrafenib (TAFINLAR) 75 mg capsule Take 2 capsules (150 mg total) by mouth 2 (two) times a day. Take at least 1 hour before or 2 hours after a meal. Do not open, crush, or break. 120 capsule 2 06/04/2023 07/02/2023 dexAMETHasone (DECADRON) 1 mg tablet Take 1 tablet (1 mg total) by mouth every 12 (twelve) hours. 60 tablet 0 06/05/2023 07/04/2023 Rx oxyCODONE (RX ROXICODONE) 5 MG IR tablet Take 5 mg by mouth every 4 (four) hours as needed for pain. ED Starter Pack Prescription 0 06/21/2023 trametinib dimethyl sulfoxide (MEKINIST) 2 mg tablet Take 1 tablet (2 mg total) by mouth daily. Take at least 1 hour before or 2 hours after a meal. Keep refrigerated in original bottle. 30 tablet 2 06/04/2023 07/02/2023 documented as of this encounter Plan of Treatment Upcoming Encounters Date Type Department Care Team (Late st Contact Info) Description 08/19/2023 6:40 AM [employer] [facility] CHIEF Appointment Department of Laboratory Medicine and Pathology, [facility] in [place], [place] [address] [place] [phone] Pérez Zuniga M.D., Ph.D. [address] [place] [phone] 08/19/2023 7:00 AM [employer] CHIEF Ancillary Procedure Department of Cardiovascular Medicine in [place], [place] [address] [place] [phone] Pérez Zuniga M.D., Ph.D. [address] [place] [phone] 08/19/2023 9:00 AM [employer] CHIEF Appointment Department of Radiology, [facility] in [place], [place] [address] [place] [phone] Pérez Zuniga M.D., Ph.D. [address] [place] [phone] 08/19/2023 3:40 PM [employer]IEF Office Visit Department of Oncology in [address] [phone] Zhane Granados APRN, C.N.P. [address] [place] [phone] 08/21/2023 10:15 AM [employer] CHIEF Clinical Support Department of Palliative Care in [address] [phone] Serenity Kelsey, P.A.-C. 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) COMPREHENSIVE METABOLIC PANEL, S/P Routine 06/20/2023 12:01 PM [employer] CHIEF 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 LAB BLOO D BANK TEST ORDERABLES [facility] [address] [place] [address], [facility] ETRM [facility] [address] [place] [address] * Thyroid Function Likely (06/20/2023 12:01 PM [employer] BR[employer] CHIEF) TSH, Sensitive 1.5 0.3 - 4.2 mIU/L 06/20/2023 1:14 PM [employer] BR[employer] CHIEF DTL Blood (Blood, Venous) 06/20/2023 12:01 PM [employer] BR[employer] CHIEF 06/20/2023 12:41 PM [employer] BR[employer] CHIEF Pérez Zuniga M.D., Ph.D. LAB BLOO D ADD-ON [facility] [address] [place] [address], [facility] DTL [facility] [address] [place] [address] * (ABNORMAL) Comprehensive Metabolic Panel (06/20/2023 12:01 PM MAT[employer] BRANCH CHIEF) [facility] Potassium, S 4.0 3.6 - 5.2 mmol/L 06/20/2023 1:14 PM [employer]S BR[employer] CHIEF DTL Sodium, S 137 135 - 145 mmol/L 06/20/2023 1:14 PM [employer] CHIEF DTL Chloride, S 101 98 - 107 mmol/L 06/20/2023 1:14 PM [employer] BR[employer] CHIEF DTL Bicarbonate, S 20(L) 22 - 29 mmol/L 06/20/2023 1:14 PM [employer]S BR[employer] CHIEF DTL Anion Gap 16(H) 7 - 15 06/20/2023 1:14 PM [employer]S BR[employer] CHIEF DTL BUN (Blood Urea Nitrogen), S 27(H) 6 - 21 mg/dL 06/20/2023 1:14 PM [employer] CHIEF DTL Creatinine 0.94 0.59 - 1.04 mg/dL 06/20/2023 1:14 PM [employer] BR[employer] CHIEF DTL Estimated GFR (eGFR) 76 >=60 mL/min/BS A 06/20/2023 1:14 PM [employer] BR[employer] CHIEF DTL Comment: Estimated GFR calculated using the 2020 CKD_EPI creatinine equation. Calcium, Total, S 9.7 8.6 - 10.0 mg/dL 06/20/2023 1:14 PM [employer]S [employer] CHIEF DTL Glucose, S 101 70 - 140 mg/dL 06/20/2023 1:14 PM [employer] BR[employer] CHIEF DTL Protein, Total, S 7.7 6.3 - 7.9 g/dL 06/20/2023 1:14 PM [employer] CHIEF DTL Albumin, S 4.1 3.5 - 5.0 g/dL 06/20/2023 1:14 PM [employer] BR[employer] CHIEF DTL Aspartate Aminotransferase (AST), S 26 8 - 43 U/L 06/20/2023 1:14 PM [employer] BR[employer] CHIEF DTL Alkaline Phosphatase, S 277(H) 35 - 104 U/L 06/20/2023 1:14 PM [employer] BR[employer] CHIEF DTL Alanine Aminotransferase (ALT), S 22 7 - 45 U/L 06/20/2023 1:14 PM [employer] CHIEF DTL Bilirubin, Total, S 0.2 0.0 - 1.2 mg/dL 06/20/2023 1:14 PM [employer] CHIEF DTL Blood (Blood, Venous) 06/20/2023 12:01 PM [employer] CHIEF 06/20/2023 12:41 PM [employer] CHIEF Pérez Zuniga M.D., Ph.D. LAB BLOO D ADD-ON [facility] [address] [place] [address], [facility] [address] [place] [address] * (ABNORMAL) CBC with Differential, Blood (06/20/2023 12:01 PM [employer] BR[employer] CHIEF) Hemoglobin 7.6(L) 11.6 - 15.0 g/dL 06/20/2023 1:15 PM [employer] BR[employer] CHIEF DTL Hematocrit 24.1(L) 35.5 - 44.9 % 06/20/2023 1:15 PM [employer] BR[employer] CHIEF DTL Erythrocytes 2.49(L) 3.92 - 5.13 x10(12)/L 06/20/2023 1:15 PM [employer]S BR[employer] CHIEF DTL MCV 96.8 78.2 - 97.9 fL 06/20/2023 1:15 PM [employer] BR[employer] CHIEF DTL RBC Distrib Width 16.2(H) 12.2 - 16.1 % 06/20/2023 1:15 PM [employer] CHIEF DTL Platelet Count 496(H) 157 - 371 x10(9)/L 06/20/2023 1:15 PM [employer] BR[employer] CHIEF DTL Leukocytes 7.9 3.4 - 9.6 x10(9)/L 06/20/2023 1:15 PM [employer] BR[employer] CHIEF DTL Neutrophils 4.72 1.56 - 6.45 x10(9)/L 06/20/2023 1:15 PM [employer] BR[employer] CHIEF DHPM Lymphocytes 1.98 0.95 - 3.07 x10(9)/L 06/20/2023 1:15 PM [employer]S BRAN[employer] CHIEF DTL Monocytes 0.90(H) 0.26 - 0.81 x10(9)/L 06/20/2023 1:15 PM [employer] BRAN[employer] CHIEF DTL Eosinophils 0.22 0.03 - 0.48 x10(9)/L 06/20/2023 1:15 PM [employer]S BR[employer] CHIEF DTL Basophils 0.07 0.01 - 0.08 x10(9)/L 06/20/2023 1:15 PM [employer]S BRANCH CHIEF DTL Blood (Blood, Venous) 06/20/2023 12:01 PM [employer] BR[employer] CHIEF 06/20/2023 12:26 PM [employer] BR[employer] CHIEF Pérez Zuniga M.D., Ph.D. 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
--- OUTSIDE RECORDS SUMMARY | 2023-08-08 18:05 | XMS_ITS | Encounter Summary ---
Author Name Unknown Organization [facility] Address [address] [place] [address] Care Team Providers Care Licensed Veterinary Technician Name Role Phone Elsewhere, Pcp Primary Care Provider Unavailabl e Reason for Referral * Medication Prior Authorization - Closed Specialty Diagnoses / Procedures Referred By Mikki feliciano Referred To Contact Valentine Dolan M.D., M.S. [address] [place] [phone] Referral ID Status Reason Start Date Expiration Date Visits Re quested Visits Authorized [id number] Closed 1 1 ALLER TECHNICIAN * Outpatient (Routine) - Closed Specialty Diagnoses / Procedures Referred By Mikki feliciano Referred To Contact Palliative Medicine Valentine Dolan M.D., M.S. [address] [place] [address] [facility] Referral ID Status Reason Start Date Expiration Date Visits Re quested Visits Authorized [id number] Closed 06/21/2023 06/20/2026 1 1 Scheduling Instructions For 07/[address] 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 [address] [place] [phone] [facility] Referral ID Status Reason Start Date Expiration Date Visits Re quested Visits Authorized [id number] Closed 06/04/2023 06/03/2024 1 1 Encounter Details Date Type Department Care Team (Latest Contact Info) Description 06/21/2023 8:30 AM INSTALLER TECHNICIAN Comprehensive Visit Department of Palliative Care in [place], [place] [address] [place] [phone] Pérez Zuniga M.D., Ph.D. [address] [place] [phone] Valentine Dolan M.D., M.S. [address] [place] [phone] Rachelle Oliver RSantoshNSantosh [address] [place] [phone] Melanoma Trunk (HCC); Secondary Malignant Neoplasm Bone (HCC) Social History Tobacco Use Types Packs/Day [...] Sex Assigned at Female 05/31/2023 8:26 AM INSTALLER TECHNICIAN Gender Identity Female 05/31/2023 8:26 AM INSTALLER TECHNICIAN Sexual Orientation Straight 05/31/2023 8: 26 AM INSTALLER TECHNICIAN documented as of this encounter Last Filed Vital Signs Vital Sign Reading Time Taken Comments Blood Pressure 102/69 06/21/2023 8:26 AM INSTALLER TECHNICIAN Pulse 78 06/21/2023 8:26 AM INSTALLER TECHNICIAN Temperature 36.8 ??C (98.2 ??F) 06/21/2023 8:26 AM CS T Respiratory Rate - - Oxygen Saturation 100% 06/21/2023 8:26 AM INSTALLER TECHNICIAN Inhaled Oxygen Concentration - - Weight - - Height - - Body Mass Index - - documented in this encounter Patient Instructions * Patient Instructions* Valentine Dolan M.D., M.S. - 06/21/2023 8:30 AM INSTALLER TECHNICIAN You can adjust the timing of the dexamethasone daily to see when works best for you. Will plan to start Xtampza 13.5 milligrams twice daily ~12 hours apart for the long-acting pain medication. If this is not approved, would start long-acting morphine (called MS contin) 15 milligrams ~12 hours apart. Continue to take oxycodone 5 milligrams up to every 4 hours as needed for pain. If this is not sufficient with the long-acting pain medication, you can try two tablets (total of 10 milligrams) to seeif this helps with the arm pain. You can decrease the Tylenol to three times a day 6 hours apart. ALLER TECHNICIAN documented in this encounter Progress Notes * Rachelle Oliver R.N. - 06/21/2023 8:30 AM CST Palliative Care Introduction I introduced the patient and to role of palliative medicine in the care of patients with serious illness, namely expertise in pain and non-pain symptom management, psychosocial, and spiritual supportfor patients and families as well as assistance in broader medical decision making. Palliative Medicine Clinic team sheet and contact information was reviewed with the patient. Chief Complaint/Purpose of Visit Patient was here for patient education. Patient was referred by Dr. Valentine Dolan Impression/Report/Plan Please see After Visit Summary for specific patient instructions. Patient Education: Education provided to patient For details involving the learning needs assessment, teaching methods used, and evaluation of learning, please refer to the patient education flowsheet. Education topics covered in this visit include: Clinic Care Team/Contacting the Clinic, Pain, Constipation , Medication Safety , and Opioid Medication Palliative Medicine Clinic face sheet & contact information, Palliative Care: Care for People with Serious Illness [id number] and Integrative and Supportive Therapies for Palliative Care Patients [id number] provided at this visit. Standard Opioid education included: Medication specific education for Oxycodone and Xtampza Safe Management of Controlled Substances [id number] Important Information About Opioid Medication [id number] (page 7 opioid withdrawal) Treating Constipation Caused by Pain Medications [id number] Educational materials provided were: Integrative and Supportive Therapies for Palliative Care Patients [id number], Opioid Storage and Safety MC [id number], Palliative Care: Care for People with Serious Illness [id number], [facility] Integrative Medicine Program Flier [id number], Safe Management of Controlled Substances [id number] , and Treating Constipation Caused by Pain Medications [id number] Follow-up as per the consult note of Dr. Valentine Dolan 06/21 ALLER TECHNICIAN documented in this encounter Consult Notes * Valentine Dolan M.D., M.S. - 06/21/2023 8:30 AM CST SUBJECTIVE PRIMARY CARE PROVIDER ELSEWHERE, PCP Patient Care Team: Ondina Chávez M.D. as External Primary Care Physician (Family Medicine) REFERRING PROVIDER Pérez Zuniga M.D., Ph.D. [phone] REFERRING SERVICE Medical Oncology CHIEF COMPLAINT / REASON FOR CONSULT Tony Cota is a 47 y.o. 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 She is accompanied in the visit by her Francis. HISTORY OF PRESENT ILLNESS The patient's medical history has been well delineated in the electronic medical record. I refer you to the detailed notes of Dr. Zuniga for full details. Briefly, Tony presented with pain in the distal femur radiating into the upper thigh and was sent to the ED on 04/02 where she was ruled out for DVT. Evaluation in Ortho ordered MRI which showed osseous lesions on 05/12. She was diagnosed with metastatic melanoma from biopsy on 05/13. After outpatient Oncology consult here on 06/04, she wasstarted on dabrafenib+trametinib. Tony was referred to clinic for pain management. Although she initially presented with distal femur pain radiating from the left knee to the hip uncontrolled despite ibuprofen and acetaminophen, this has improved with starting treatment the past two weeks and with taking oxycodone 5mg PO. She has been taking oxycodone 5mg PO. She currently has no pain in the legs until ~6-7 hours from the oxycodone pending on activity. She was uncertain about whether to come in today because other than her left arm pain, her pain has been much improved. One issue with her current regimen has been inability to drive her children to their activities with her PRN medication. Her primary pain at present is left upper lateral arm pain wrapper up and around her shoulder without radiation into her neck or spine. She has been unable to utilize her arm due to the severity of this pain and thought about purchasing a sling to keep people from embracing her on this side. She has been unable to lift it due to pain limitations. However, notes slight pain improvement with treatment initiation such that she is able to lift her arm slightly to put deodorant on. Of note, with treatment, will have temperatures with 100.7F with chills, no sweating. Tony has had nausea which is improved with starting dexamethasone through Oncology. This was prescribed q12h, and since she was spacing from treatment, she had been taking at 10am and 10pm. This contributed to poor sleep, even though she had been taking hydroxyzine for sleep which had previously providing benefit to help with the racing thoughts at night. She characterizes herself as a rule follower and will take the medication precisely as prescribed. The following portions of the patient's history were reviewed and updated as appropriate: allergies, current medications, family history, medical history, social history, surgical history, and problem list. Current Outpatient Medications Medication Sig acetaminophen (TYLENOL) 500 mg tablet Take 500-1,000 mg by mouth every 6 (six) hours as needed. dabrafenib (TAFINLAR) 75 mg capsule Take 2 capsules (150 mg total) by mouth 2 (two) times a day. Take at least 1 hour before or 2 hours after a meal. Do not open, crush, or break. dexAMETHasone (DECADRON) 1 mg tablet Take 1 tablet (1 mg total) by mouth every 12 (twelve) hours. hydrOXYzine (ATARAX) 25 mg tablet Take 25-50 mg by mouth at bedtime as needed. lisinopril-hydroCHLOROthiazide (PRINZIDE,ZESTORETIC) 10-12.5 mg per tablet Take 1 tablet by mouth every morning. naloxone (NARCAN) 4 mg/actuation nasal spray Administer 1 spray (4 mg total) into one nostril as needed for reversal. Use 1 spray in 1 nostril. Repeat with second device in other nostril after 2-3 minutes if no or minimal response. omeprazole (PriLOSEC OTC) [address] tablet Take 20 mg by mouth every morning before breakfast. ondansetron (ZOFRAN) 8 mg tablet Take 1 tablet (8 mg total) by mouth every 8 (eight) hours as needed for nausea or vomiting. oxyCODONE (ROXICODONE) 5 mg immediate release tablet Take 1-2 tablets (5-10 mg total) by mouth every 4 (four) hours as needed for pain Indication: Chronic Pain/Nonacute Pain. oxyCODONE myristate (Xtampza ER) 13.5 mg ER capsule, sprinkle Take 1 capsule (13.5 mg total) by mouth every 12 (twelve) hours Indication: Chronic Pain/Nonacute Pain. polyethylene glycol (MIRALAX) 17 gram powder packet Take 17 g by mouth daily. Dissolve each 17 g dose in 240 mLs (8 ounces) of beverage. sennosides (senna) 8.6 mg tablet Take 8.6 mg by mouth daily. trametinib dimethyl sulfoxide (MEKINIST) 2 mg tablet Take 1 tablet (2 mg total) by mouth daily. Take at least 1 hour before or 2 hours after a meal. Keep refrigerated in original bottle. Social History: Lives in [place], [place] with her Francis and three children. 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 They have a 17-year-old daughter who is a senior in high school, a 15-year-old daughter who is a freshman, and a son who is 6th grade. Their families live in [place]. Tony's mother is currently living with them to care for the children and get them ready in the morning. CODE STATUS No Order REVIEW OF SYSTEMS As described in the history of present illness otherwise reviewed with patient and non-contributoryto the current encounter. Jansen Scores Who completed this form?: Patient No Pain = 0 and Worst Pain = 10: 5 No Fatigue = 0 and Worst Fatigue = 10: 4 No Nausea = 0 and Worst Nausea = 10: 5 No Depression = 0 and Worst Depression = 10: 3 No Anxiety = 0 and Worst Anxiety = 10: 4 No Drowsiness = 0 and Worst Drowsiness = 10 : 1 No Shortness of Breath = 0 and Worst Shortness of Breath = 10: 0 Best Appetite = 0 and Worst Appetite = 10: 6 Best Feeling of Well Being = 0 and Worst Feeling of Well Being = 10: 8 Best Sleep = 0 and Worst Sleep = 10: 7 No Financial Distress (Distress/suffering experienced secondary to financial issues) = 0 and Worst Financial Distress = 10: 2 No Spiritual Pain (Pain deep in your soul/being that is not physical) = 0 and Worst Spiritual Pain = 10: 2 Palliative Functional Assessment 80%- Full ambulation, Normal activity with effort and some evidence of disease, Full self-care, Normal or reduced intake, Full level of consciousness OBJECTIVE PHYSICAL EXAM T 36.8, HR 78, BP 102/69 General: Alert; no acute distress Skin: Good turgor, no rash Eyes: Conjunctiva clear, sclera non-icteric Neck: No jugular venous distention noted Lungs: Clear to auscultation anteriorly; no use of accessory muscles of respiration, non-labored breathing pattern. Abdomen: Bowel sounds present, non-tender, non-distended Extremities: No lower extremity edema noted. MSK: Pain greater with active lateral arm raise, but even with passive arm raise, worsening at ~60 degrees, significant increase in pain with passive arm lowering Psychiatric: Oriented X 3, intact recent and remote memory, judgment and insight, congruent mood and affect. DIAGNOSTICS Lab results: CMP 06/20/23: Potassium, S 3.6 - 5.2 mmol/L 4.0 3.7 Sodium, S 135 - 145 mmol/L 137 134 Low Chloride, S 98 - 107 mmol/L 101 97 Low Bicarbonate, S 22 - 29 mmol/L 20 Low 20 Low Anion Gap 7 - 15 16 High 17 High BUN (Blood Urea Nitrogen), S 6 - 21 mg/dL 27 High 28 High Creatinine 0.59 - 1.04 mg/dL 0.94 1.56 High Estimated GFR (eGFR) >=60 mL/min/BSA 76 42 Low CM Comment: Estimated GFR calculated using the 2020 CKD_EPI creatinine equation. Calcium, Total, S 8.6 - 10.0 mg/dL 9.7 9.0 Glucose, S 70 - 140 mg/dL 101 137 Protein, Total, S 6.3 - 7.9 g/dL 7.7 6.7 Albumin, S 3.5 - 5.0 g/dL 4.1 3.4 Low Aspartate Aminotransferase (AST), S 8 - 43 U/L 26 21 Alkaline Phosphatase, S 35 - 104 U/L 277 High 132 High Alanine Aminotransferase (ALT), S 7 - 45 U/L 22 9 Bilirubin, Total, S 0.0 - 1.2 mg/dL 0.2 0.3 CBC 06/20/23: Hemoglobin 11.6 - 15.0 g/dL 7.6 Low 7.6 Low Hematocrit 35.5 - 44.9 % 24.1 Low 22.9 Low Erythrocytes 3.92 - 5.13 x10(12)/L 2.49 Low 2.46 Low MCV 78.2 - 97.9 fL 96.8 93.1 RBC Distrib Width 12.2 - 16.1 % 16.2 High 15.1 Platelet Count 157 - 371 x10(9)/L 496 High 464 High Leukocytes 3.4 - 9.6 x10(9)/L 7.9 14.9 High Neutrophils 1.56 - 6.45 x10(9)/L 4.72 12.04 High Lymphocytes 0.95 - 3.07 x10(9)/L 1.98 1.39 Monocytes 0.26 - 0.81 x10(9)/L 0.90 High 1.32 High Eosinophils 0.03 - 0.48 x10(9)/L 0.22 0.11 Basophils 0.01 - 0.08 x10(9)/L 0.07 0.05 Echo Transthoracic (TTE) Result Date: 06/20/2023 Impression: There are no previous [facility] echocardiograms available for comparison. LEFT VENTRICLE:Normal left [...] to exclude thrombus in this location. No pericardial effusion. Patent foramen ovale (image 98). For the complete report, see the Order-Level Documents. PET scan 05/15/23: 1. Large intensely hypermetabolic mixed solid and [...] associated soft tissue components extending into the a djacent spinal canal/neural foramens as described above. Correlate [...] uptake in relation a background. Recommend attention onfollow-up. 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 We introduced the patient and their caregiver's to role of palliative care in the care of patients with serious illness, namely expertise in pain and non-pain symptom management, psychosocial, and spiritual support for patients and families as well as assistance in broader medical decision making. RECOMMENDATIONS Cancer-Associated Pain, greatest in Left upper arm: I validated that the inability to utilize her arm secondary to the pain is of concern and that additional adjustments to her pain regimen are warranted. While the treatment has been associated with some improvements that are encouraging, in the interim, would add a long-acting agent. Discussed that with stable dosing and knowing the mental effects on dosing, at times patients will drive with this as opposed to the variable drug levels with theimmediate release opioids. Would still however utilize the PRN oxycodone dosing. While Oxycontin is not available with her insurance, Xtampza appears it may be. As she has tolerated the oxycodone well, she would like to try this first if it is an option. If not, would then start MS contin 15mg PO bid. - Start Xtampza 13.5mg PO q12h - Continue oxycodone at 5mg PO q4h PRN for now; if left arm pain not improved with the addition of Xtampza, can increase oxycodone to 10mg (two tablets) which we discussed today - Narcan prescription sent to the pharmacy; discussed the rationale for sending with addition of long-acting opioid Opioid Summary Opioid Need: This patient has a condition that necessitates treatment with an opioid for longer than 7 days. Additionally, a non-opioid alternative was not appropriate or inadequate to manage patient???s pain. 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 Opioid Toxicity Review: We have reviewed the risks of opioid therapy and completed an assessment oftoxicities. Opioid Aberrant Use Concerns: None Current Opioid Regimen: As above Current Oral Morphine Equivalents (OME/MME): 30 OME/day 2. Nausea: Discussed retiming the dexamethasone to earlier in the day and avoiding nighttime dosingwhich is likely impacting sleep. - May retime dexamethasone 1mg PO to afternoon when targets maximum nausea - Ondansetron 8mg PO q8h PRN ordered for PRN usage - Will assess for consideration of olanzapine qhs dosage for nausea and nighttime thoughts, potentially to replace hydroxyzine Thank you for the opportunity to see this patient. Patient has our contact information and understands to call with new/worsening symptoms or concerns. We will work alongside the primary outpatient team to address these issues. Palliative care outpatient clinic will continue to follow along. Follow up visit: ~2 weeks Total time spent was 70 minutes, with >50% spent on counseling and coordination of care, including Risks and benefits of management(treatment) options, Instructions for management (treatment) and/or follow-up, Importance of compliance with the chosen management, and Risk factor reduction. Valentine Dolan M.D., M.S. ADDENDUM: Correct dosage for the Xtampza should be 9mg PO bid instead of 13.5mg to replace her current oxycodone usage. The new prescription has been sent and will work on the prior authorization forthis dosage. ADDENDUM: Xtampza is not approved unless has a contraindication to MS contin. Will send a prescription for MS contin 15mg PO bid. Tony will be notified of this adjustment. ALLER TECHNICIAN documented in this encounter Miscellaneous Notes * Addendum Note - Valentine Dolan M.D., M.S. - 06/21/2023 8:30 AM INSTALLER TECHNICIAN Addended by: VALENTINE DOLAN on: 06/24/2023 03:42 PM Modules accepted: Orders ALLER TECHNICIAN documented in this encounter Plan of Treatment Upcoming Encounters Date Type Department Care Team (Late st Contact Info) Description 08/19/2023 6:40 AM INSTALLER TECHNICIAN Appointment Department of Laboratory Medicine and Pathology, [facility] in [address] [phone] Pérez Zuniga M.D., Ph.D. [address] [place] [phone] 08/19/2023 7:00 AM INSTALLER TECHNICIAN Ancillary Procedure Department of Cardiovascular Medicine in [address] [phone] Pérez Zuniga M.D., Ph.D. [address] [place] [phone] 08/19/2023 9:00 AM INSTALLER TECHNICIAN Appointment Department of Radiology, [facility] in [address] [phone] Pérez Zuniga M.D., Ph.D. [address] [place] [phone] 08/19/2023 3:40 PM INSTALLER TECHNICIAN Office Visit Department of Oncology in [address] [phone] Zhane Granados APRN, C.N.P. [address] [place] [phone] 08/21/2023 10:15 AM INSTALLER TECHNICIAN Clinical Support Department of Palliative Care in [address] [phone] Serenity Dolan P.A.-C. 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
--- OUTSIDE RECORDS SUMMARY | 2023-08-08 18:05 | XMS_ITS | Encounter Summary ---
Author Name Unknown Organization [facility] Address [address] [place] [id number] Care Team Providers Care Executive Chairman Name Role Phone Elsewhere, Pcp Primary Care Provider Unavailabl e Reason for Visit * Reason Onset Date Comments Pre-visit Intake 06/17/2023 Encounter Details Date Type Department Care Team (Latest Contact Info) Description 06/17/2023 7:00 AM MEMBER OF CONGRESS Clinical Communication Virtual Review in [address] [address] Pre-visit Intake Social History Tobacco Use Types Packs/Day Years Used Date Smoking Tobacco: Never Passive Smoke Exposure: Never Smokeless Tobacco: Never Tobacco Cessation:Counseling Given: No Alcohol Use Standard Drinks/Week Comments Not Currently 6 (1 standard drink = 0.6 oz pur e alcohol) Occasional Nutrition Answer Date Recorded Nutrition: EVOO Fat Source Unknown 05/06 Nutrition: Servings of Fruits/Vegetables per Day Not on file 05/06/2023 Dental Answer Date Recorded Dental: Regular Dentist Unknown 05/06/20 Sex and Gender Information Value Date Recorded Sex Assigned at Female 05/31/2023 8:26 AM MEMBER OF CONGRESS Gender Identity Female 05/31/2023 8:26 AM MEMBER OF CONGRESS Sexual Orientation Straight 05/31/2023 8: 26 AM MEMBER OF CONGRESS documented as of this encounter Plan of Treatment Upcoming Encounters Date Type Department Care Team (Late st Contact Info) Description 08/19/2023 6:40 AM MEMBER OF CONGRESS Appointment Department of Laboratory Medicine and Pathology, [facility] in [place], [place] [address] [place] [phone] Pérez Zuniga M.D., Ph.D. [address] [place] [phone] 08/19/2023 7:00 AM MEMBER OF CONGRESS Ancillary Procedure Department of Cardiovascular Medicine in [place], [place] [address] [place] [phone] Pérez Zuniga M.D., Ph.D. [address] [place] [phone] 08/19/2023 9:00 AM MEMBER OF CONGRESS Appointment Department of Radiology, [facility] in [place], [place] [address] [place] [phone] Pérez Zuniga M.D., Ph.D. [address] [place] [phone] 08/19/2023 3:40 PM MEMBER OF CONGRESS Office Visit Department of Oncology in [place], [place] [address] [place] [phone] Zhane Granados, PRESCHOOL ASSISTANT TEACHER, C.N.P. [address] [place] [phone] 08/21/2023 10:15 AM MEMBER OF CONGRESS Clinical Support Department of Palliative Care in [place], [place] [address] [place] [phone] Serenity Kelsey, P.A.-C. [address] [place] [phone] Meka Rinaldi D.N.P., R.N., [facility] documented as of this encounter Visit Diagnoses Not on filedocumented in this encounter Additional Health Concerns Infection Onset Date Last Indicated Resolved Time Protective Environment 06/04/2023 06/04/2023 documented as of this encounter Care Teams Executive Chairman Relationship Specialty Start Date End Date Elsewhere, Pcp PCP - General Family Medicine 06/17/23 documented as of this encounter
--- OUTSIDE RECORDS SUMMARY | 2023-08-08 18:05 | XMS_ITS | Encounter Summary ---
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 [address] [place] [phone] [facility] Referral ID Status Reason Start Date Expiration Date Visits Re quested Visits Authorized [id number] Closed 06/20/2023 06/19/2024 1 1 RONMENTAL ENGINEERING AIDE * Outpatient (Routine) - Closed Specialty Diagnoses / Procedures Referred By Contac t Referred To Contact Oncology Pérez Zuniga M.D., Ph.D. [address] [place] [address] [facility] Referral ID Status Reason Start Date Expiration Date Visits Re quested Visits Authorized [id number] Closed 06/20/2023 06/19/2026 1 1 RONMENTAL ENGINEERING AIDE Reason for Visit * Outpatient (Routine) - Closed Specialty Diagnoses / Procedures Referred By Mikki feliciano Referred To Contact Oncology Pérez Zuniga M.D., Ph.D. [address] [place] [phone] [facility] Referral ID Status Reason Start Date Expiration Date Visits Re quested Visits Authorized [id number] Closed 06/04/2023 06/03/2026 1 1 Encounter Details Date Type Department Care Team (Late st Contact Info) Description 06/20/2023 4:40 PM ENVIRONMENTAL ENGINEERING AIDE Office Visit Department of Oncology in [place], [place] [address] [place] [phone] Pérez Zuniga M.D., Ph.D. [address] [place] [phone] Melanoma Trunk (HCC) (Primary Dx); Secondary Malignant Neoplasm Bone (HCC); Other Institutional Research Director Current Drug Therapy Social History Tobacco Use Types Packs/Day Years [...] Sex Assigned at Female 05/31/2023 8:26 AM ENVIRONMENTAL ENGINEERING AIDE Gender Identity Female 05/31/2023 8:26 AM ENVIRONMENTAL ENGINEERING AIDE Sexual Orientation Straight 05/31/2023 8: 26 AM ENVIRONMENTAL ENGINEERING AIDE documented as of this encounter Last Filed Vital Signs Vital Sign Reading Time Taken Comments Blood Pressure 125/79 06/20/2023 2:14 PM ENVIRONMENTAL ENGINEERING AIDE Pulse 99 06/20/2023 2:14 PM ENVIRONMENTAL ENGINEERING AIDE Temperature 37 ??C (98.6 ??F) 06/20/2023 2:14 PM ENVIRONMENTAL ENGINEERING AIDE Respiratory Rate 16 06/20/2023 2:14 PM ENVIRONMENTAL ENGINEERING AIDE Oxygen Saturation 100% 06/20/2023 2:14 PM ENVIRONMENTAL ENGINEERING AIDE Inhaled Oxygen Concentration - - Weight 75 kg (165 lb 5.5 oz) 06/20/2023 2:14 PM ENVIRONMENTAL ENGINEERING AIDE Height 160 cm (5' 2.99) 06/20/2023 2:14 PM ENVIRONMENTAL ENGINEERING AIDE Body Mass Index 29.3 06/20/2023 2:14 PM ENVIRONMENTAL ENGINEERING AIDE documented in this encounter Progress Notes * Pérez Zuniga M.D., Ph.D. 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 Cota returns for follow-up of melanoma. After two weeks of treatment with DT, she feels less pressure in her abdomen (pelvic mass) and is ambulating with less pain. The L shoulder still hurts; not much improved. ECOG performance status is 1 (limited by pain). MEDICAL/SURGICAL HISTORY Past Medical History: Diagnosis Date Hypertension NOS 07/2020 Melanoma Skin (HCC) 05/24/23 Past Surgical History: Procedure Laterality Date TONSILLECTOMY 1995 REVIEW OF SYSTEMS Pertinent items are noted in HPI; all other review of systems were negative. I reviewed the Medications, Allergies, Past Medical History, Social History, and Family History. OBJECTIVE VITAL SIGNS Vitals: 06/20/23 1414 BP: 125/79 BP Location: Right arm Patient Position: Sitting Cuff Size: Regular Pulse: 99 Resp: 16 Temp: 37 ??C TempSrc: Tympanic SpO2: 100% Weight: 75 kg Height: 160 cm No data recorded PHYSICAL EXAMINATION General: Alert female, in no acute distress. Ambulates on and off the exam table without difficulty. 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 Mrs. Cota is here today for a toxicity check while on DT. She is tolerating therapy very well. Her labs today are looking good and her symptoms seem to be improving. The AP is elevated which may be the result of therapy (bone fraction). We will stay on course with treatments and I will see her in 2 weeks again, and plan to restage in 6 weeks from now (PET/CT and MRI brain). Bone pain. Mrs. Cota will be seeing our colleagues in Palliative Medicine tomorrow for thoughts/ideas on pain control. She is presently on a low dose narcotic and scheduled Tylenol. PATIENT EDUCATION: Ready to learn, no apparent learning barriers were identified; learning preferences include listening. Explained diagnosis and treatment plan; patient expressed understanding of the content. ADMINISTRATIVE BILLING: I personally spent over half of a total 30 minutes face to face with the patient in counseling and discussion and/or coordination of care as described above. RONMENTAL ENGINEERING AIDE documented in this encounter Plan of Treatment Upcoming Encounters Date Type Department Care Team (Late st Contact Info) Description 08/19/2023 6:40 AM ENVIRONMENTAL ENGINEERING AIDE Appointment Department of Laboratory Medicine and Pathology, [facility] in [place], [place] [address] [place] [phone] Pérez Zuniga M.D., Ph.D. [address] [place] [phone] 08/19/2023 7:00 AM ENVIRONMENTAL ENGINEERING AIDE Ancillary Procedure Department of Cardiovascular Medicine in [place], [place] [address] [place] [phone] Pérez Zuniga M.D., Ph.D. [address] [place] [phone] 08/19/2023 9:00 AM ENVIRONMENTAL ENGINEERING AIDE Appointment Department of Radiology, [facility] in [place], [place] [address] [place] [phone] Pérez Zuniga M.D., Ph.D. [address] [place] [phone] 08/19/2023 3:40 PM ENVIRONMENTAL ENGINEERING AIDE Office Visit Department of Oncology in [place], [place] [address] [place] [phone] Zhane Granados APRN, C.N.P. [address] [place] [phone] 08/21/2023 10:15 AM ENVIRONMENTAL ENGINEERING AIDE Clinical Support Department of Palliative Care in [place], [place] [address] [place] [phone] Serenity Kelsey, PSantoshADenilson. [address] [place] [phone] Meka Rinaldi D.N.P., R.N., [facility] Scheduled Referrals Name Type Priority Associated Diagnoses Orde r Schedule Oncology office visit (clinic) Outpatient Referral Routine Expected: 07/04/2023 (Approximate), Expires: 09/18/2024 documented as of this encounter Results * ECG 12 Lead (07/04/2023 10:08 AM [facility]) Ventricular Rate ECG/Min 81 BPM MUSE OR Interval 136 ms MUSE QRSD Interval 82 ms MUSE QT Interval 384 ms MUSE QTC Interval 446 ms MUSE P Holcomb 46 degrees MUSE R Holcomb 60 degrees MUSE T Wave Holcomb 19 degrees MUSE 07/04/2023 10:0 8 AM ENVIRONMENTAL ENGINEERING AIDE 07/04/2023 10:10 AM ENVIRONMENTAL ENGINEERING AIDE Impressions MUSE - 07/04/2023 10:10 AM ENVIRONMENTAL ENGINEERING AIDE Normal sinus rhythm Normal ECG When compared [...] CBC with Differential, Blood (07/04/2023 9:50 AM ENVIRONMENTAL ENGINEERING AIDE) Hemoglobin 8.2(L) 11.6 - 15.0 g/dL 07/04/2023 10:56 AM ENVIRONMENTAL ENGINEERING AIDE DHPM Hematocrit 26.3(L) 35.5 - 44.9 % 07/04/2023 10:56 AM ENVIRONMENTAL ENGINEERING AIDE DHPM Erythrocytes 2.62(L) 3.92 - 5.13 x10(12)/L 07/04/2023 10:56 AM ENVIRONMENTAL ENGINEERING AIDE DHPM MCV 100.4(H) 78.2 - 97.9 fL 07/04/2023 10:56 AM ENVIRONMENTAL ENGINEERING AIDE DHPM RBC Distrib Width 17.5(H) 12.2 - 16.1 % 07/04/2023 10:56 AM ENVIRONMENTAL ENGINEERING AIDE DHPM Platelet Count 701(H) 157 - 371 x10(9)/L 07/04/2023 10:56 AM ENVIRONMENTAL ENGINEERING AIDE DHPM Leukocytes 9.9(H) 3.4 - 9.6 x10(9)/L 07/04/2023 10:56 AM ENVIRONMENTAL ENGINEERING AIDE DHPM Neutrophils 5.27 1.56 - 6.45 x10(9)/L 07/04/2023 10:56 AM ENVIRONMENTAL ENGINEERING AIDE DHPM Lymphocytes 3.81(H) 0.95 - 3.07 x10(9)/L 07/04/2023 10:56 AM ENVIRONMENTAL ENGINEERING AIDE DHPM Monocytes 0.63 0.26 - 0.81 x10(9)/L 07/04/2023 10:56 AM ENVIRONMENTAL ENGINEERING AIDE DHPM Eosinophils 0.10 0.03 - 0.48 x10(9)/L 07/04/2023 10:56 AM ENVIRONMENTAL ENGINEERING AIDE DHPM Basophils 0.12(H) 0.01 - 0.08 x10(9)/L 07/04/2023 10:56 AM ENVIRONMENTAL ENGINEERING AIDE DHPM Blood (Blood, Venous) 07/04/2023 9:50 AM ENVIRONMENTAL ENGINEERING AIDE 07/04/2023 10:11 AM ENVIRONMENTAL ENGINEERING AIDE Pérez Zuniga M.D., Ph.D. LAB BLOO D ADD-ON Performing Organization Address City/[facility]/ZIP Co de Phone Number [facility] [address] [place] [address], [facility] [address] [place] [address] * Thyroid Function [place] (07/04/2023 9:49 AM ENVIRONMENTAL ENGINEERING AIDE) TSH, Sensitive 2.3 0.3 - 4.2 mIU/L 07/04/2023 11:05 AM ENVIRONMENTAL ENGINEERING AIDE DTL Blood (Blood, Venous) 07/04/2023 9:49 AM ENVIRONMENTAL ENGINEERING AIDE 07/04/2023 10:29 AM ENVIRONMENTAL ENGINEERING AIDE Pérez Zuniga M.D., Ph.D. LAB BLOO D ADD-ON Performing Organization Address [facility] Co de Phone Number [facility] [address] [place] [address], [facility] [address] [place] [address] * (ABNORMAL) Comprehensive Metabolic Panel (07/04/2023 9:49 AM ENVIRONMENTAL ENGINEERING AIDE) Potassium, S 4.7 3.6 - 5.2 mmol/L 07/04/2023 11:05 AM ENVIRONMENTAL ENGINEERING AIDE DTL Sodium, S 137 135 - 145 mmol/L 07/04/2023 11:05 AM ENVIRONMENTAL ENGINEERING AIDE DTL Chloride, S 103 98 - 107 mmol/L 07/04/2023 11:05 AM ENVIRONMENTAL ENGINEERING AIDE DTL Bicarbonate, S 24 22 - 29 mmol/L 07/04/2023 11:05 AM ENVIRONMENTAL ENGINEERING AIDE DTL Anion Gap 10 7 - 15 07/04/2023 11:05 AM ENVIRONMENTAL ENGINEERING AIDE DTL BUN (Blood Urea Nitrogen), S 22(H) 6 - 21 mg/dL 07/04/2023 11:05 AM ENVIRONMENTAL ENGINEERING AIDE DTL Creatinine 0.90 0.59 - 1.04 mg/dL 07/04/2023 11:05 AM ENVIRONMENTAL ENGINEERING AIDE DTL Estimated GFR (eGFR) 80 >=60 mL/min/BS A 07/04/2023 11:05 AM ENVIRONMENTAL ENGINEERING AIDE DTL Comment: Estimated GFR calculated using the 2020 CKD_EPI creatinine equation. Calcium, Total, S 9.9 8.6 - 10.0 mg/dL 07/04/2023 11:05 AM ENVIRONMENTAL ENGINEERING AIDE DTL Glucose, S 98 70 - 140 mg/dL 07/04/2023 11:05 AM ENVIRONMENTAL ENGINEERING AIDE DTL Protein, Total, S 7.7 6.3 - 7.9 g/dL 07/04/2023 11:05 AM ENVIRONMENTAL ENGINEERING AIDE DTL Albumin, S 4.3 3.5 - 5.0 g/dL 07/04/2023 11:05 AM ENVIRONMENTAL ENGINEERING AIDE DTL Aspartate Aminotransferase (AST), S 26 8 - 43 U/L 07/04/2023 11:05 AM ENVIRONMENTAL ENGINEERING AIDE DTL Alkaline Phosphatase, S 229(H) 35 - 104 U/L 07/04/2023 11:05 AM ENVIRONMENTAL ENGINEERING AIDE DTL Alanine Aminotransferase (ALT), S 24 7 - 45 U/L 07/04/2023 11:05 AM ENVIRONMENTAL ENGINEERING AIDE DTL Bilirubin, Total, S 0.2 0.0 - 1.2 mg/dL 07/04/2023 11:05 AM ENVIRONMENTAL ENGINEERING AIDE DTL Blood (Blood, Venous) 07/04/2023 9:49 AM ENVIRONMENTAL ENGINEERING AIDE 07/04/2023 10:29 AM ENVIRONMENTAL ENGINEERING AIDE Pérez Zuniga M.D., Ph.D. LAB BLOO D ADD-ON [facility] [address] [place] [address], [facility] [address] [place] [address] documented in this encounter Visit Diagnoses Diagnosis Melanoma Trunk (HCC)- Primary Secondary Malignant Neoplasm Bone (HCC) Other Senior Care Current Drug Therapy documented in this encounter Additional Health Concerns Infection Onset Date Last Indicated Resolved Time Protective Environment 06/04/2023 06/04/2023 documented as of this encounter Care Teams Mobile Therapist Relationship Specialty Start Date End Date Elsewhere, Pcp PCP - General Family Medicine 06/17/23 documented as of this encounter
--- OUTSIDE RECORDS SUMMARY | 2023-08-08 18:05 | XMS_ITS | Encounter Summary ---
Author Name Unknown Organization [facility] Address [address] [place] [address] Care Team Providers Care Billet Examiner Name Role Phone Unavailable Primary Care Provider Unavailabl e Reason for Visit * Reason Onset Date Comments Specialty Medication Delivery 06/05/2023 Encounter Details Date Type Department Care Team (Latest Contact Info) Description 06/05/2023 Clinical Communication [facility] [id number] [place] [phone] Joanne Yoo C.Ph.T. Specialty Medication Delivery Social History Tobacco Use Types Packs/Day Years Used Date Smoking Tobacco: Never Smokeless Tobacco: Never Alcohol Use Standard Drinks/Week Comments Yes 1 (1 standard drink = 0.6 oz pur e alcohol) Occasional Nutrition Answer Date Recorded Nutrition: EVOO Fat Source Unknown 05/06 Nutrition: Servings of Fruits/Vegetables per Day Not on file 05/06/2023 Dental Answer Date Recorded Dental: Regular Dentist Unknown 05/06/20 Sex and Gender Information Value Date Recorded Sex Assigned at Female 05/31/2023 8:26 AM ENTRY LEVEL MACHINE OPERATOR Gender Identity Female 05/31/2023 8:26 AM ENTRY LEVEL MACHINE OPERATOR Sexual Orientation Straight 05/31/2023 8: 26 AM ENTRY LEVEL MACHINE OPERATOR documented as of this encounter Plan of Treatment Upcoming Encounters Date Type Department Care Team ( st Contact Info) Description 08/19/2023 6:40 AM ENTRY LEVEL MACHINE OPERATOR Appointment Department of Laboratory Medicine and Pathology, [facility] in [place], [place] [address] [place] [phone] Pérez Zuniga M.D., Ph.D. [address] [place] [phone] 08/19/2023 7:00 AM ENTRY LEVEL MACHINE OPERATOR Ancillary Procedure Department of Cardiovascular Medicine in [place], [place] [address] [place] [phone] Pérez Zuniga M.D., Ph.D. [address] [place] [phone] 08/19/2023 9:00 AM ENTRY LEVEL MACHINE OPERATOR Appointment Department of Radiology, [facility] in [place], [place] [address] [place] [phone] Pérez Zuniga M.D., Ph.D. [address] [place] [phone] 08/19/2023 3:40 PM ENTRY LEVEL MACHINE OPERATOR Office Visit Department of Oncology in [address] [phone] Zhane Granados, EMBEDDED LINUX ENGINEER, C.N.P. [address] [place] [phone] 08/21/2023 10:15 AM ENTRY LEVEL MACHINE OPERATOR Clinical Support Department of Palliative Care in [place], [place] [address] [place] [phone] Serenity Kelsey, P.A.-C. [address] [place] [phone] Meka Rinaldi D.N.P., R.N., [facility] documented as of this encounter Visit Diagnoses Not on filedocumented in this encounter Additional Health Concerns Infection Onset Date Last Indicated Resolved Time Protective Environment 06/04/2023 06/04/2023 documented as of this encounter
--- OUTSIDE RECORDS SUMMARY | 2023-08-08 18:05 | XMS_ITS | Encounter Summary ---
Author Name Unknown Organization [facility] Address [address] [place] [address] Care Team Providers Care Crimping Machine Operator For Metal Name Role Phone Elsewhere, Pcp Primary Care Provider Unavailabl e Reason for Referral * Outpatient (Routine) - Closed Specialty Diagnoses / Procedures Referred By Contac t Referred To Contact Palliative Medicine Valentine Kelsey M.D., M.S. [address] [place] [phone] [facility] Referral ID Status Reason Start Date Expiration Date Visits Re quested Visits Authorized [id number] Closed 07/01/2023 06/30/2026 [address] Kelsey HT READINESS TECHNICIAN * Outpatient (Routine) - Closed Specialty Diagnoses / Procedures Referred By Contsweetie t Referred To Contact Palliative Medicine Diagnoses Melanoma Trunk (HCC) Nausea Valentine Kelsey M.D., M.S. [address] [place] [phone] [facility] Referral ID Status Reason Start Date Expiration Date Visits Re quested Visits Authorized [id number] Closed 07/01/2023 06/30/2026 1 1 Scheduling Instructions If can coordinate with accupressure HT READINESS TECHNICIAN Reason for Visit * Outpatient (Routine) - Closed Specialty Diagnoses / Procedures Referred By Mikki feliciano Referred To Contact Palliative Medicine Valentine Kelsey M.D., M.S. [address] [place] [phone] [facility] Referral ID Status Reason Start Date Expiration Date Visits Re quested Visits Authorized [id number] Closed 06/21/2023 06/20/2026 1 1 Encounter Details Date Type Department Care Team (Late st Contact Info) Description 07/01/2023 3:00 PM FLIGHT READINESS TECHNICIAN Telemedicine Department of Palliative Care in [place], [place] [address] [place] [phone] Valentine Kelsey M.D., M.S. [address] [place] [phone] Melanoma Trunk (HCC) (Primary Dx); Nausea; Pain Cancer Associated; Palliative Care Social History [...] Sex Assigned at Female 05/31/2023 8:26 AM FLIGHT READINESS TECHNICIAN Gender Identity Female 05/31/2023 8:26 AM FLIGHT READINESS TECHNICIAN Sexual Orientation Straight 05/31/2023 8: 26 AM FLIGHT READINESS TECHNICIAN documented as of this encounter Progress Notes * Valentine Kelsey M.D., M.S. - 07/01/2023 3:00 PM CST SUBJECTIVE CHIEF COMPLAINT/REASON FOR VISIT Tony Cota is a 47 y.o. 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 established patient visit Visit conducted via virtual visit. The following person/people were also present during the discussion: None Medical Record review was conducted prior to the virtual visit. Date of last in-person clinic visit: 06/21/23 Interval History: Since last visit, Tony had increased fevers and nausea with the decreased dexamethasone to daily, so Oncology increased the dose back to bid and she felt better within a few hours. She currently takes these doses at 7am and 3pm which work best for her schedule; with taking the steroid away from bedtime, she now has been able to sleep. With regards to her nausea, she takes zofran ~11am and with the steroids and zofran her nausea is well-controlled other than that precipitated by smells or difficulty with brushing her teeth later in the afternoon/evening. Tony's pain has been improving such that she did not start the MS contin and has been weaning downthe oxycodone and acetaminophen she is using. She has been newly able to abduct her left arm ~60 degrees independently without needing to move it with her right hand. Currently she is taking oxycodone 5mg PO 2x/day (daily OME = 15) and acetaminophen twice daily. OBJECTIVE PHYSICAL EXAM General: Alert, appropriately interactive, no acute distress Lungs: Non-labored breathing pattern during conversation Psychiatric: Oriented X 3, intact recent and remote memory, judgment and insight, congruent mood and affect. Musculoskeletal: Abducts her left arm independently to ~60 degrees, moves arm freely from the elbow DIAGNOSTICS No new labs or imaging to review since last visit. ASSESSMENT / PLAN Tony Cota is a 47 y.o. 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 RECOMMENDATIONS Cancer-Associated Pain, greatest in LUE: Significantly improving with treatment, likely reflecting a positive treatment response. At present, discussed keeping and setting aside the MS contin to ensure that her pain is continuing to improve; would plan to discard following next visit if her pain remains well managed. Discussed that she can stop the oxycodone at any time and utilize only acetaminophen if this is adequately controlling her pain given that she is on such low doses. - Continue acetaminophen, can utilize up to 1000mg 3x/day - Continue oxycodone 5mg PO q4h PRN; can try discontinuing and utilizing only acetaminophen if sufficient - Set aside MS contin for now; may dispose of following next visit if pain continuing to improve Opioid Summary Opioid Need: This patient has a condition that necessitates treatment with an opioid for longer than 7 days. Additionally, a non-opioid alternative was not appropriate or inadequate to manage patient???s pain. Diagnosis related to controlled substance prescribing: Melanoma [place] CLAIM TECHNICIAN Review: We have reviewed the patient's record in the [place] prescription monitoring program 07/01/2023. Opioid Toxicity Review: We have reviewed the risks of opioid therapy and completed an assessment oftoxicities. Opioid Aberrant Use Concerns: None Recommended Opioid Regimen as of 07/01/2023.: as above Current Oral Morphine Equivalents (OME/MME): 15 OME/day 2. Nausea: Mostly well-managed with the steroids per Oncology and the daily scheduled zofran. Discussed that the associations with brushing the teeth could potential be associations with when she hasworsened nausea; however, she has tried to break the cycle through adjustments to her brushing teeth schedule. No additional recommendations at this time. Follow up visit: provider 1 month, clinic visit if able to coordinate Consult conducted via real-time audio/video technology by Valentine Kelsey M.D., M.S. in [facility] to the patient in Patient's Home Valentine Kelsey M.D., M.S. HT READINESS TECHNICIAN documented in this encounter Plan of Treatment Upcoming Encounters Date Type Department Care Team (Late st Contact Info) Description 08/19/2023 6:40 AM FLIGHT READINESS TECHNICIAN Appointment Department of Laboratory Medicine and Pathology, [facility], in [place], [place] [address] [place] [phone] Pérez Zuniga M.D., Ph.D. [address] [place] [phone] 08/19/2023 7:00 AM FLIGHT READINESS TECHNICIAN Ancillary Procedure Department of Cardiovascular Medicine in [place], [place] [address] [place] [phone] Pérez Zuniga M.D., Ph.D. [address] [place] [phone] 08/19/2023 9:00 AM FLIGHT READINESS TECHNICIAN Appointment Department of Radiology, [facility], in [place], [place] [address] [place] [phone] Pérez Zuniga M.D., Ph.D. [address] [place] [phone] 08/19/2023 3:40 PM FLIGHT READINESS TECHNICIAN Office Visit Department of Oncology in [place], [place] [address] [place] [phone] Zhane Granados APRN, C.N.P. [address] [place] [phone] 08/21/2023 10:15 AM FLIGHT READINESS TECHNICIAN Clinical Support Department of Palliative Care in [place], [place] [address] [place] [phone] Serenity Kelsey, P.A.-C. [address] [place] [phone] Meka Rinaldi D.N.P., R.N., [facility] Scheduled Referrals Name Type Priority Associated Diagnoses Order Schedule Palliative Care nurse therapy visit (clinic) Outpatient Referral Routine Melanoma Trunk (HCC) Nausea Expected: 07/04/2023 (Approximate), Expires: 09/29/2024 Palliative Care office visit (clinic) Outpatient Referral Routine Expected: 07/25/2023, Expires: 09/29/2024 documented as of this encounter Visit Diagnoses Diagnosis Melanoma Trunk (HCC)- Primary Nausea Pain Cancer Associated Palliative Care documented in this encounter Additional Health Concerns Infection Onset Date Last Indicated Resolved Time Protective Environment 06/04/2023 06/04/2023 documented as of this encounter Care Teams Crimping Machine Operator For Metal Relationship Specialty Start Date End Date Elsewhere, Pcp PCP - General Family Medicine 06/17/23 documented as of this encounter
--- OUTSIDE RECORDS SUMMARY | 2023-08-08 18:05 | XMS_ITS | Encounter Summary ---
Author Name Unknown Organization [facility] Address [address] [place] [address] Care Team Providers Care Account Executive Software Sales Name Role Phone Elsewhere, Pcp Primary Care Provider Unavailabl e Reason for Visit * Reason Onset Date Comments Rx Denial 06/24/2023 XTAMPZA ER 9 MG CAPSULES Encounter Details Date Type Department Care Team (Latest Contact Info) Description 06/24/2023 Clinical Communication Department of Palliative Care in [place], [place] [address] [place] [phone] Valentine Kelsey M.D., M.S. [address] [place] [phone] Rx Denial (XTAMPZA ER 9 MG CAPSULES) Social History Tobacco Use Types Packs/Day Years [...] Sex Assigned at Female 05/31/2023 8:26 AM COMMUNICATIONS SENIOR ASSOCIATE Gender Identity Female 05/31/2023 8:26 AM COMMUNICATIONS SENIOR ASSOCIATE Sexual Orientation Straight 05/31/2023 8: 26 AM COMMUNICATIONS SENIOR ASSOCIATE documented as of this encounter Miscellaneous Notes * Telephone Encounter - Rachelle Oliver R.N. - 06/24/2023 4:28 PM COMMUNICATIONS SENIOR ASSOCIATE Medication changed to MS Contin per Dr. Kelsey UNICATIONS SENIOR ASSOCIATE * Telephone Encounter - Reyna Nelson I. - 06/24/2023 3:09 PM CST Images from the original note were not included. The patient's health insurer has denied prior authorization for XTAMPZA ER 9 MG CAPSULES. A screen shot of the denial reason is at the bottom of this communication message. To view the complete denial letter, scroll down to the green Guidance section below and click on the appropriate medication in the Current Prescription Prior Authorizations display. As the prescriber, your options are: Appeal the decision to the insurer directly (see denial letter for how to appeal). Write a new Rx for an alternative medication therapy. Release the Rx to the pharmacy so the patient has the option to pay out of pocket. To Release Rx: Open this encounter, go to [employer], and click on the medication. If the blue ???Release Rx?? button appears as an option, click to release the prescription. If the blue Release Rx button is not visible, the Rx has already been released to the pharmacy. If you have questions, please reply to [facility]. Thank you, The [facility]PP[facility] Team UNICATIONS SENIOR ASSOCIATE documented in this encounter Plan of Treatment Upcoming Encounters Date Type Department Care Team (Late st Contact Info) Description 08/19/2023 6:40 AM COMMUNICATIONS SENIOR ASSOCIATE Appointment Department of Laboratory Medicine and Pathology, [facility] in [place], [place] [address] [place] [phone] Pérez Zuniga M.D., Ph.D. [address] [place] [phone] 08/19/2023 7:00 AM COMMUNICATIONS SENIOR ASSOCIATE Ancillary Procedure Department of Cardiovascular Medicine in [place], [place] [address] [place] [phone] Pérez Zuniga M.D., Ph.D. [address] [place] [phone] 08/19/2023 9:00 AM COMMUNICATIONS SENIOR ASSOCIATE Appointment Department of Radiology, [facility], in [place], [place] [address] [place] [phone] Pérez Zuniga M.D., Ph.D. [address] [place] [phone] 08/19/2023 3:40 PM COMMUNICATIONS SENIOR ASSOCIATE Office Visit Department of Oncology in [place], [place] [address] [place] [phone] Zhane Granados, MEDICAL BILLING MANAGER, C.N.P. [address] [place] [phone] 08/21/2023 10:15 AM COMMUNICATIONS SENIOR ASSOCIATE Clinical Support Department of Palliative Care in [place], [place] [address] [place] [phone] Serenity Kelsey, P.A.-C. [address] [place] [phone] Meka Rinaldi D.N.P., R.N., [facility] documented as of this encounter Visit Diagnoses Not on filedocumented in this encounter Additional Health Concerns Infection Onset Date Last Indicated Resolved Time Protective Environment 06/04/2023 06/04/2023 documented as of this encounter Care Teams Account Executive Software Sales Relationship Specialty Start Date End Date Elsewhere, Pcp PCP - General Family Medicine 06/17/23 documented as of this encounter
--- OUTSIDE RECORDS SUMMARY | 2023-08-08 18:05 | XMS_ITS | Encounter Summary ---
Author Name Unknown Organization [facility] Address [address] [place] [address] Care Team Providers Care Nurse Practitioner Manager Name Role Phone Unavailable Primary Care Provider Unavailabl e Reason for Referral * Outpatient (Routine) - Closed Specialty Diagnoses / Procedures Referred By Mikki feliciano Referred To Contact Oncology Laura Dalal M.D. [address] [place] [phone] [facility] Referral ID Status Reason Start Date Expiration Date Visits Re quested Visits Authorized [id number] Closed 06/10/2023 06/09/2026 1 1 Scheduling Instructions With Julia Liz 3:00 pm WARE VALIDATION ENGINEER Encounter Details Date Type Department Care Team (Late st Contact Info) Description 06/10/2023 Clinical Communication Department of Oncology in [place], [place] [address] [place] [phone] Akosua Liz D.N.P., R.N. [address] [place] [phone] Social History Tobacco Use Types Packs/Day Years [...] Sex Assigned at Female 05/31/2023 8:26 AM SOFTWARE VALIDATION ENGINEER Gender Identity Female 05/31/2023 8:26 AM SOFTWARE VALIDATION ENGINEER Sexual Orientation Straight 05/31/2023 8: 26 AM SOFTWARE VALIDATION ENGINEER documented as of this encounter Plan of Treatment Upcoming Encounters Date Type Department Care Team (Late st Contact Info) Description 08/19/2023 6:40 AM SOFTWARE VALIDATION ENGINEER Appointment Department of Laboratory Medicine and Pathology, [facility] in [place], [place] [address] [place] [phone] Pérez Zuniga M.D., Ph.D. [address] [place] [phone] 08/19/2023 7:00 AM SOFTWARE VALIDATION ENGINEER Ancillary Procedure Department of Cardiovascular Medicine in [address] [phone] Pérez Zuniga M.D., Ph.D. [address] [place] [phone] 08/19/2023 9:00 AM SOFTWARE VALIDATION ENGINEER Appointment Department of Radiology, [facility] in [place], [place] [address] [place] [phone] Pérez Zuniga M.D., Ph.D. [address] [place] [phone] 08/19/2023 3:40 PM SOFTWARE VALIDATION ENGINEER Office Visit Department of Oncology in [place], [place] [address] [place] [phone] Zhane Graandos APRN, C.N.P. [address] [place] [phone] 08/21/2023 10:15 AM [facility] Clinical Support Department of Palliative Care in [place], [place] [address] [place] [phone] Serenity Kelsey P.A.-C. [address] [place] [phone] Meka Rinaldi D.N.P., R.N., [facility] Scheduled Referrals Name Type Priority Associated Diagnoses Orde r Schedule Oncology nurse visit (clinic) Outpatient Referral Routine Expected: 06/20/2023, Expires: 09/10/2024 documented as of this encounter Visit Diagnoses Not on filedocumented in this encounter Additional Health Concerns Infection Onset Date Last Indicated Resolved Time Protective Environment 06/04/2023 06/04/2023 documented as of this encounter
--- OUTSIDE RECORDS SUMMARY | 2023-08-08 18:05 | XMS_ITS | Encounter Summary ---
Author Name Unknown Organization [facility] Address [address] [place] [id number] Care Team Providers Care Machine Designer Name Role Phone Elsewhere, Pcp Primary Care Provider Unavailabl e Reason for Visit * Outpatient (Routine) - Closed Specialty Diagnoses / Procedures Referred By Mikki t Referred To Contact Oncology Laura Dalal M.D. [address] [place] [phone] [facility] Referral ID Status Reason Start Date Expiration Date Visits Re quested Visits Authorized [id number] Closed 06/10/2023 06/09/2026 1 1 Encounter Details Date Type Department Care Team (Late st Contact Info) Description 06/20/2023 3:00 PM PORCELAIN ENAMELING SUPERVISOR Nurse Only Department of Oncology in [place], [place] [address] [place] [phone] Laura Dalal M.D. [address] [place] [phone] Akosua Liz D.N.P., R.N. [address] [place] [phone] Social History Tobacco Use Types Packs/Day Years [...] Sex Assigned at Female 05/31/2023 8:26 AM PORCELAIN ENAMELING SUPERVISOR Gender Identity Female 05/31/2023 8:26 AM PORCELAIN ENAMELING SUPERVISOR Sexual Orientation Straight 05/31/2023 8: 26 AM PORCELAIN ENAMELING SUPERVISOR documented as of this encounter Progress Notes * Akosua Liz D.N.P., R.N., O.C.N. - 06/20/2023 3:00 PM CST INTEGRATIVE ONCOLOGY NURSE FOLLOW UP NOTE Tony Cota is seen in the [facility] for a nurse follow up visit requested by Dr. Leena MD. Please refer to her detailed consult note from 06/04/23 for a completepatient history. ASSESSMENT: Tony Cota is a 47 y.o. female presents for integrative oncology follow up visit. Current issuesinclude stress management, insomnia. Sleep: patient feels worry has impacted her quality of sleep Stress: explored in detail what has been supportive for tony in the past Social support/Spirituality: patient feels she has amazing support from friends and family Cancer: Patient shared how this diagnosis has been devastating to her family, but she still tends to have a positive mindset. Patient feels she will have moments of hopelessness and wanted to continue to explore ways she could provide herself with support Sleep: Reviewed sleep hygiene and the importance of sleep.Patient was started on hydroxazine and has used trazodone in the past while her oldest daughter was in the hospital after a care accident. Patient previously would write thoughts down that were keeping her up at night, but feels like this would not be as feasible for her now. Patient feels if she is able to better manage her stress and anxi ety around her diagnosis this will improve her sleep. Stress: Patient became tearful as she shared about how her diagnosis and the symptoms she was experiencing before starting treatment were impacting her quality of life. Due to discomfort in her abdomen and legs, even riding in a vehicle was uncomfortable and she was no longer moving her body as much or spending time as much time with friends and hosting guests. Patient shared that their oldest daughter was in a MVA and we explored support that was helpful for her during that stressful time. Patient shared that time with friends and family is very important to her, but recognizes that she may need to set boundaries and slowly increase the amount of time, who she spends time with, and the activities she is able to do with them. Patient has three children and being their as a parent and attending their activities is important. Patient and shared that movement has always been an important part of tony's life and with her pain she was not walking as much. They discussed the importance of tony going for walks with family or meeting up with friends for coffee just to go for a walk or get out of the house. Patient shared that journaling has been helpful for her in the past and she feels writing down some of the emotions she is feeling may be a good place to park them. We explored how journaling fits into the topic of celebrating her treatment successes and how far she has come since starting treatment. Patient feels journaling may also help her have a clear idea of what social support would be best for her in the coming weeks. Patient would like to start journaling daily and feel she has minimal barriers to doing this and it is important to her to start. RN discussedin detail the wide variety of emotional health support. We explored the idea that tony feels very supported by friends and likes to connect with them, but does not want to only discuss cancer or be known by her diagnosis. We discussed the topic of healthy boundaries around what she would like to talk about with friends and would not like to share outside of her family. RN offered counseling/CBT as another option she could consider, RN shared that there are many other interventions and forms ofsupport for emotional health that we could explore. Patient shared that she would like to focus on the journaling, movement, and social connection at this time. Patient and are aware that we can revisit other forms or support or refer patient to other services in the future. Patient set the following emotional health goals: Tony will journal daily in the morning for 10-15 minutes Social support/spirituality: Reviewed importance of having a good social support network. Consider joining support groups or reach out to counselors/social workers for more resources. Spirituality isalso important for many patients with a cancer diagnosis and encouraged engaging with these resources as well. Will refer as needed. INTERVENTION(S): Integrative Therapy(ies) Discussed: journaling, exercise/movement, spirituality PLAN FOR FOLLOW UP: Patient will start with lifestyle interventions and dietary changes and recommended supplements. Reviewed the core plan in detail with patient and answered all questions in detail. Educational handouts and resources given to patient. >45 minutes were spent (total time) which includes FTF time spent with patient as well as chart review, review of labs, and care coordination Julia Liz DNP, RN, ONC [facility] ELAIN ENAMELING SUPERVISOR documented in this encounter Plan of Treatment Upcoming Encounters Date Type Department Care Team (Late st Contact Info) Description 08/19/2023 6:40 AM PORCELAIN ENAMELING SUPERVISOR Appointment Department of Laboratory Medicine and Pathology, [address] [phone] Pérez Zuniga M.D., Ph.D. [address] [place] [phone] 08/19/2023 7:00 AM PORCELAIN ENAMELING SUPERVISOR Ancillary Procedure Department of Cardiovascular Medicine in [address] [phone] Pérez Zuniga M.D., Ph.D. [address] [place] [phone] 08/19/2023 9:00 AM PORCELAIN ENAMELING SUPERVISOR Appointment Department of Radiology, [facility] in [address] [phone] Pérez Zuniga M.D., Ph.D. [address] [place] [phone] 08/19/2023 3:40 PM PORCELAIN ENAMELING SUPERVISOR Office Visit Department of Oncology in [place], [place] [address] [place] [phone] Zhane Granados APRN, C.N.P. [address] [place] [phone] 08/21/2023 10:15 AM PORCELAIN ENAMELING SUPERVISOR Clinical Support Department of Palliative Care in [place], [place] [address] [place] [phone] Serenity Kelsey, PKarin-C. [address] [place] [phone] Meka Rinaldi D.N.P., R.N., [facility] documented as of this encounter Visit Diagnoses Not on filedocumented in this encounter Additional Health Concerns Infection Onset Date Last Indicated Resolved Time Protective Environment 06/04/2023 06/04/2023 documented as of this encounter Care Teams Machine Designer Relationship Specialty Start Date End Date Elsewhere, Pcp PCP - General Family Medicine 06/17/23 documented as of this encounter
--- OUTSIDE RECORDS SUMMARY | 2023-08-08 18:05 | XMS_ITS | Encounter Summary ---
Author Name Unknown Organization [facility] Address [address] [place] [address] Care Team Providers Care Casing In Line Feeder Name Role Phone Elsewhere, Pcp Primary Care Provider Unavailabl e Reason for Referral * Outpatient (Routine) - Closed Specialty Diagnoses / Procedures Referred By Mikki feliciano Referred To Contact Diagnoses 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) Other Senior It Recruiter Current Drug Therapy Procedures Echo Transthoracic (TTE) Pérez Zuniga M.D., Ph.D. 200 [place] [phone] 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 200 [place] [phone] [facility] Referral ID Status Reason Start Date Expiration Date Visits Re quested Visits Authorized [id number] Closed 06/04/2023 06/03/2024 1 1 Encounter Details Date Type Department Care Team (Latest Contact Info) Description 06/20/2023 12:07 PM CYTOTECHNOLOGIST - 06/20/2023 11:59 PM CYTOTECHNOLOGIST Hospital Encounter Department of Cardiovascular Diseases in [place], [place] [address] [place] [phone] Pérez Zuniga M.D., Ph.D. [address] [place] [phone] Melanoma Trunk (HCC); Secondary Malignant Neoplasm Bone (HCC); Other Correction Current Drug Therapy Discharge Disposition: Home or [...] Sex Assigned at Female 05/31/2023 8:26 AM CYTOTECHNOLOGIST Gender Identity Female 05/31/2023 8:26 AM CYTOTECHNOLOGIST Sexual Orientation Straight 05/31/2023 8: 26 AM CYTOTECHNOLOGIST documented as of this encounter Medications at [...] st Contact Info) Description 08/19/2023 6:40 AM CYTOTECHNOLOGIST Appointment Department of Laboratory Medicine and Pathology, [place], [place] [address] [place] [phone] Pérez Zuniga M.D., Ph.D. [address] [place] [phone] 08/19/2023 7:00 AM CYTOTECHNOLOGIST Ancillary Procedure Department of Cardiovascular Medicine in [place], [place] [address] [place] [phone] Pérez Zuniga M.D., Ph.D. [address] [place] [phone] 08/19/2023 9:00 AM CYTOTECHNOLOGIST Appointment Department of Radiology, [facility] in [place], [place] [address] [place] [phone] Pérez Zuniga M.D., Ph.D. [address] [place] [phone] 08/19/2023 3:40 PM CYTOTECHNOLOGIST Office Visit Department of Oncology in [place], [place] [address] [place] [phone] Zhane Granados APRN, C.N.P. [address] [place] [phone] 08/21/2023 10:15 AM CYTOTECHNOLOGIST Clinical Support Department of Palliative Care in [place], [place] [address] [place] [phone] Serenity Kelsey P.A.-C. 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 LEFT VENTRICLE:Normal left [...] the Order-Level Documents. Narrative 06/20/2023 1:42 PM CYTOTECHNOLOGIST For the complete report, see the Order-Level [...] pericardial effusion. Findings There are no previous [facility] echocardiograms available forcomparison. LEFT VENTRICLE:Normal left ventricular [...] Pérez Zuniga M.D., Ph.D. CV ECHO PROCEDURES documented in this encounter Visit Diagnoses Diagnosis 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) Other Senior It Recruiter Current Drug Therapy documented in this encounter Additional Health Concerns Infection Onset Date Last Indicated Resolved Time Protective Environment 06/04/2023 06/04/2023 documented as of this encounter Care Teams Casing In Line Feeder Relationship Specialty Start Date End Date Elsewhere, Pcp PCP - General Family Medicine 06/17/23 documented as of this encounter
--- OUTSIDE RECORDS SUMMARY | 2023-08-08 18:05 | XMS_ITS | Encounter Summary ---
Author Name Unknown Organization [facility] Address [address] [place] [address] Care Team Providers Care Wiper Blender Name Role Phone Unavailable Primary Care Provider Unavailabl e Encounter Details Date Type Department Care Team (Late st Contact Info) Description 06/05/2023 Specialty Pharmacy [facility] [address] [place] [phone] Yessi Patel, Pharm.D., R.Ph. [address] [place] [phone] Social History Tobacco Use Types Packs/Day Years [...] Sex Assigned at Female 05/31/2023 8:26 AM REGIONAL SALES TRAINER Gender Identity Female 05/31/2023 8:26 AM REGIONAL SALES TRAINER Sexual Orientation Straight 05/31/2023 8: 26 AM REGIONAL SALES TRAINER documented as of this encounter Miscellaneous Notes * Telephone Encounter - Yessi Patel, Pharm.D., R.Ph. - 06/05/2023 1:59 PM CST Note created for purposes of potential enrollment with [facility] Specialty Pharmacy and medication interaction check via [employer] interaction photo checker. No telephone contact with patient at this point. ONAL SALES TRAINER documented in this encounter Plan of Treatment Upcoming Encounters Date Type Department Care Team (Late st Contact Info) Description 08/19/2023 6:40 AM REGIONAL SALES TRAINER Appointment Department of Laboratory Medicine and Pathology, [facility] in [place], [place] [address] [place] [phone] Pérez Zuniga M.D., Ph.D. [address] [place] [phone] 08/19/2023 7:00 AM REGIONAL SALES TRAINER Ancillary Procedure Department of Cardiovascular Medicine in [place], [place] [address] [place] [phone] Pérez Zuniga M.D., Ph.D. [address] [place] [phone] 08/19/2023 9:00 AM REGIONAL SALES TRAINER Appointment Department of Radiology, [facility] in [place], [place] [address] [place] [phone] Pérez Zuniga M.D., Ph.D. [address] [place] [phone] 08/19/2023 3:40 PM REGIONAL SALES TRAINER Office Visit Department of Oncology in [place], [place] [address] [place] [phone] Zhane Granados APRN, C.N.P. [address] [place] [phone] 08/21/2023 10:15 AM REGIONAL SALES TRAINER Clinical Support Department of Palliative Care in [place], [place] [address] [place] [phone] Serenity Kelsey P.A.-C. [address] [place] [phone] Meka Rinaldi D.N.P., R.N., [facility] documented as of this encounter Visit Diagnoses Not on filedocumented in this encounter Additional Health Concerns Infection Onset Date Last Indicated Resolved Time Protective Environment 06/04/2023 06/04/2023 documented as of this encounter
--- OUTSIDE RECORDS SUMMARY | 2023-08-08 18:05 | XMS_ITS | Encounter Summary ---
Author Name Unknown Organization [facility] Address [address] [place] [address] Care Team Providers Care Hr Business Partner Consultant Name Role Phone Unavailable Primary Care Provider Unavailabl e Encounter Details Date Type Department Care Team (Latest Contact Info) Description 06/05/2023 Specialty Pharmacy [facility] [address] [place] [phone] Yessi Patel, Pharm.D., R.Ph. [address] [place] [address] Melanoma Trunk (HCC) (Primary Dx) Social History Tobacco Use Types [...] Sex Assigned at Female 05/31/2023 8:26 AM EMERGENCY VEHICLE DISPATCHER Gender Identity Female 05/31/2023 8:26 AM EMERGENCY VEHICLE DISPATCHER Sexual Orientation Straight 05/31/2023 8: 26 AM EMERGENCY VEHICLE DISPATCHER documented as of this encounter Miscellaneous Notes * Telephone Encounter - Yessi Patel, Pharm.D., R.Ph. - 06/05/2023 2:23 PM CST SUBJECTIVE REASON FOR VISIT Patient counseling and education, via telephone, for new hematology/oncology medication therapy andestablishing medication reassessment timeline. HISTORY OF PRESENT ILLNESS Ms. Tony Cota is a 47 y.o. 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 Medications the Patient Reported Taking acetaminophen (TYLENOL) 500 mg tablet (Taking) dabrafenib (TAFINLAR) 75 mg capsule (Taking) dexAMETHasone (DECADRON) 1 mg tablet (Taking) hydrOXYzine (ATARAX) 25 mg tablet (Taking) lisinopril-hydroCHLOROthiazide (PRINZIDE,ZESTORETIC) 10-12.5 mg per tablet (Taking) omeprazole (PriLOSEC OTC) [address] tablet (Taking) polyethylene glycol (MIRALAX) 17 gram powder packet (Taking) Rx oxyCODONE (RX ROXICODONE) 5 MG IR tablet (Taking) sennosides (senna) 8.6 mg tablet (Taking) trametinib dimethyl sulfoxide (MEKINIST) 2 mg tablet (Taking) OBJECTIVE Lab Results Component Value Date CREATININE 1.56 (H) 05/29/2023 EGFR 42 (L) 05/29/2023 ASSESSMENT / PLAN 1. Medication counseling/education I counseled the patient via phone. Education related to medication: Tafinlar (dabrafenib) (as part of combination therapy with Mekinist): Doses/directions: Tafinlar: Take 2 capsules (150 mg total) by mouth 2 (two) times a day. Take at least 1 hour before or 2 hours after a meal. Do not open, crush, or break. - Mekinist: Take 1 tablet (2 mg total) by mouth daily. Take at least 1 hour before or 2 hours after a meal. Keep refrigerated in original bottle. Duration: Duration per tolerance/provider. Proper use: Tafinlar(dabrafenib) is typically taken two times daily, approximately 12 hours apart, at least 1 hour before or 2 hours after a meal. Swallow capsules whole without opening or crushing. The Mekinist portion of therapy is dosed once daily. (Example daily dosing: Tafinlar+Mekinist AM, Taf inlar PM) A TAFINLAR missed dose can be taken up to 6 hours prior to next dose, a MEKINIST missed dose should not be taken within 12 hours of next dose. Timely administration/intake: smartphone applications recommended. Storage/handling: Mekinist is refrigerated and should be kept in the original bottle, do not removedesiccant. Tafinlar can be kept at room temperature, no special considerations. Side effects: fever, rash, chills, headache, muscle and/or joint pain, cough, fatigue, nausea, vomiting, and diarrhea, high blood pressure and face or extremity swelling. Other potential warnings/ safety precautions: new primary skin cancers, tumor promotion, hemorrhage, enlargement of the heart muscle, severe fever, inflammation in the eye/retinal detachment, seriousskin toxicity, high blood sugar, blood clots, and skin toxicity with rash, redness, peeling of skin Lifestyle and Self -management skills/ Tips to prevent adverse drug reactions: Report changes in vision, light sensitivity, or eye pain; skin changes; or signs of bleeding. Monitor blood sugars. Callprescriber if any fever. Self-monitor for s/sx of blood clots. Keep follow up blood work/cardiac monitoring appts. Important to manage hand/foot symptoms. Interactions (drug/food interactions): Drug interactions referenced in #2 below. Food: Grapefruit/grapefruit juice needs to be avoided. Take on an empty stomach. Contraindications/ considerations: This combination may cause harm. Women who can become should use effective contraception (NON HORMONAL due to drug interactions) while on this combination and for 4 months after stopping. Educational resource/decision support tools: https://www.us.tafinlarmekinist.com/ and mayoinic.org. The patient was attentive and ready to learn. They verbalized understanding and are in agreement with the plan for taking this new regimen. They were advised to contact the prescriber concerning symptoms or side effects as mentioned above. The importance of adherence to the treatment plan was emphasized in regard to success of therapy. Allergy, past sensitivity, medication and health history considered at middle school counselor (renal function if available). To optimize outcomes, patient assessed for the needof other possible supportive therapies and informed of importance of proper monitoring and future reassessment. The patient/caregiver's prior education on this new therapy and disease specific knowledge were assessed with counseling and education tailored to this level of understanding. Caruso concerns and questions were addressed. Patient specific considerations/desires/requests noted at middle school counselor: Suggested to stop ibuprofen due to bleeding risk unless ok'd by her providers. Will stick to oxy/apap combo. Shipping 06/05 for delivery 06/07. Mekinist has extended stability at room temps. Also, shipment should actually hopefully come within the 36 hour cold-chain packaging window as well. Discussed with colleague Rupesh Griffin PharmD. Patient is able to self-administer the medication(s). No social, environmental, functional or cognitive barriers are apparent. Patient is eligible for service through [facility]. Links to access additional resources (financial, community), pharmacy contact information and disposal information included in dispensed 'Welcome Packet' and/or printed materials provided with the prescription. The patient/caregiver was encouraged to ask questions or to call the specialty pharmacy with questions they may have after reviewing printed material. 2. Potential drug-drug interactions No clinically significant drug interactions were identified with Mekinist (trametinib) and Tafinlar(dabrafenib) . Specialty medication(s) reconciled and good tamy attempt made in obtaining a complete medication list. Patient encouraged to report any new or change of medications (prescribed/over the counter/supplements) to assist in maintaining this list for accuracy. 3. Goals of therapy and other expectations/outcomes: Optimize medication adherence. Evaluate/prevent drug-drug and drug-disease interactions. Minimize, prevent and/or manage side effects. The patient is still undecided on what pharmacy they will be using senior living. Insurance investigation still underway. Follow-up: 1 month(s) Yessi Patel, PharmNemesio., R.Ph. GENCY VEHICLE DISPATCHER documented in this encounter Plan of Treatment Upcoming Encounters Date Type Department Care Team (Late st Contact Info) Description 08/19/2023 6:40 AM EMERGENCY VEHICLE DISPATCHER Appointment Department of Laboratory Medicine and Pathology, [facility], in [place], [place] [address] [place] [address] Pérez Zuniga M.D., Ph.D. [address] [place] [phone] 08/19/2023 7:00 AM EMERGENCY VEHICLE DISPATCHER Ancillary Procedure Department of Cardiovascular Medicine in [place], [place] [address] [place] [address] Pérez Zuniga M.D., Ph.D. [address] [place] [phone] 08/19/2023 9:00 AM EMERGENCY VEHICLE DISPATCHER Appointment Department of Radiology, [facility] in [place], [place] [address] [place] [address] Pérez Zuniga M.D., Ph.D. [address] [place] [phone] 08/19/2023 3:40 PM EMERGENCY VEHICLE DISPATCHER Office Visit Department of Oncology in [place], [place] [address] [place] [address] Zhane Granados, FISHING GEAR MECHANIC, C.N.P. [address] [place] [phone] 08/21/2023 10:15 AM EMERGENCY VEHICLE DISPATCHER Clinical Support Department of Palliative Care in [place], [place] [address] [place] [phone] Serenity Kelsey, P.A.-C. [address] [place] [phone] Meka Rinaldi D.N.P., R.N., [facility] documented as of this encounter Visit Diagnoses Diagnosis Melanoma Trunk (HCC)- Primary documented in this encounter Additional Health Concerns Infection Onset Date Last Indicated Resolved Time Protective Environment 06/04/2023 06/04/2023 documented as of this encounter
--- OUTSIDE RECORDS SUMMARY | 2023-08-08 18:05 | XMS_ITS | Encounter Summary ---
Author Name Unknown Organization [facility] Address [address] [place] [address] Care Team Providers Care Binder Stripper Machine Name Role Phone Unavailable Primary Care Provider Unavailabl e Encounter Details Date Type Department Care Team (Late st Contact Info) Description 06/04/2023 Orders Only [facility] [address] [place] [phone] Joy Hernandez, Pharm.D., R.Ph. [address] [place] [phone] Social History Tobacco Use Types Packs/Day Years [...] Sex Assigned at Female 05/31/2023 8:26 AM GOVERNMENT AFFAIRS FELLOW Gender Identity Female 05/31/2023 8:26 AM GOVERNMENT AFFAIRS FELLOW Sexual Orientation Straight 05/31/2023 8: 26 AM GOVERNMENT AFFAIRS FELLOW documented as of this encounter Plan of Treatment Upcoming Encounters Date Type Department Care Team (Late st Contact Info) Description 08/19/2023 6:40 AM GOVERNMENT AFFAIRS FELLOW Appointment Department of Laboratory Medicine and Pathology, [facility] in [place], [place] [address] [place] [address] Pérez Zuniga M.D., Ph.D. [address] [place] [phone] 08/19/2023 7:00 AM GOVERNMENT AFFAIRS FELLOW Ancillary Procedure Department of Cardiovascular Medicine in [place], [place] [address] [place] [address] Pérez Zuniga M.D., Ph.D. [address] [place] [phone] 08/19/2023 9:00 AM GOVERNMENT AFFAIRS FELLOW Appointment Department of Radiology, [facility], in [place], [place] [address] [place] [address] Pérez Zuniga M.D., Ph.D. [address] [place] [phone] 08/19/2023 3:40 PM GOVERNMENT AFFAIRS FELLOW Office Visit Department of Oncology in [place], [place] [address] [place] [phone] Zhane Granados, REHABILITATION SERVICES DIRECTOR, C.N.P. [address] [place] [phone] 08/21/2023 10:15 AM GOVERNMENT AFFAIRS FELLOW Clinical Support Department of Palliative Care in [place], [place] [address] [place] [phone] Serenity Kelsey, P.A.-C. [address] [place] [phone] Meka Rinaldi D.N.P., R.N., [facility] documented as of this encounter Visit Diagnoses Not on filedocumented in this encounter
--- OUTSIDE RECORDS SUMMARY | 2023-08-08 18:05 | XMS_ITS | Encounter Summary ---
Author Name Unknown Organization [facility] Address [address] [place] [address] Care Team Providers Care Senior Drupal Developer Name Role Phone Unavailable Primary Care Provider Unavailabl e Encounter Details Date Type Department Care Team (Late st Contact Info) Description 06/05/2023 Clinical Communication Department of Oncology in [place], [place] [address] [place] [phone] Anahy Amezcua R.N., O.C.N. [address] [place] [phone] Social History Tobacco Use Types Packs/Day Years [...] Sex Assigned at Female 05/31/2023 8:26 AM CORRECTIONS OFFICER Gender Identity Female 05/31/2023 8:26 AM CORRECTIONS OFFICER Sexual Orientation Straight 05/31/2023 8: 26 AM CORRECTIONS OFFICER documented as of this encounter Miscellaneous Notes * Telephone Encounter - Anahy Amezcua R.N., O.C.N. - 06/05/2023 12:48 PM CORRECTIONS OFFICER SUBJECTIVE CHIEF COMPLAINT / REASON FOR CALL No chief complaint on file. Information Discussed Per Dr. Zuniga, I called Ms. Cota to let her know that she should hold her ibuprofen, but initiate dexamethasone twice a day. I did let her know that Dr. Zuniga is okay with her resuming ibuprofen if her pain level would increase with stopping this. I did ask her to let us know if she would need to resume or ibuprofen. She verbalized understanding of this and has no further questions or concerns. PLAN Disposition/Recommendation: recommended continue engagement in self-management activities Information/Education: patient/caller able to teach back Caller agreeable to plan of care: yes The following references were used: nursing clinical judgement ECTIONS OFFICER * Telephone Encounter - Anahy Amezcua R.N., O.C.N. - 06/05/2023 10:52 AM CORRECTIONS OFFICER SUBJECTIVE CHIEF COMPLAINT / REASON FOR CALL No chief complaint on file. ASSESSMENT I called and spoke with Ms. Cota. She reports that in March she would have episodes of emesis at least 5/7 days. She reports that these would always be in the evening. She states that at that time she was prescribed some Zofran and she took 1 to do doses and her symptoms did improve. Ms. Cota notes that earlier this week she started to have episodes of emesis again in the evening.Mainly when she brushed her teeth. She did try to change the timing of brushing her teeth to see ifthis would help. She states that she is now having episodes of emesis this morning after eating. She reports that she only ate very small amount. Given the fact that she is going to be starting dabrafenib and trametinib, she is wondering if she should be taking something more routinely to help prevent nausea. I let her know that I would discuss with Dr. Zuniga and call her back with further recommendations. I did review with her that she should try to eat small frequent meals and stay well hydrated to help with nausea. PLAN Update Dr. Zuniga Disposition/Recommendation: notified provider and awaiting recommendations. Information/Education: patient/caller able to teach back. Caller agreeable to plan of care: yes. The following references were used: nursing clinical judgement. ECTIONS OFFICER documented in this encounter Plan of Treatment Upcoming Encounters Date Type Department Care Team (Late st Contact Info) Description 08/19/2023 6:40 AM CORRECTIONS OFFICER Appointment Department of Laboratory Medicine and Pathology, [facility] in [address] [address] Pérez Zuniga M.D., Ph.D. [address] [place] [phone] 08/19/2023 7:00 AM CORRECTIONS OFFICER Ancillary Procedure Department of Cardiovascular Medicine in [address] [address] Pérez Zuniga M.D., Ph.D. [address] [place] [phone] 08/19/2023 9:00 AM CORRECTIONS OFFICER Appointment Department of Radiology, [facility] in [address] [address] Pérez Zuniga M.D., Ph.D. [address] [place] [phone] 08/19/2023 3:40 PM CORRECTIONS OFFICER Office Visit Department of Oncology in [address] [phone] Zhane Granados APRN, C.N.P. [address] [place] [phone] 08/21/2023 10:15 AM CORRECTIONS OFFICER Clinical Support Department of Palliative Care in [address] [phone] Serenity Kelsey P.A.-C. [address] [place] [address] Meka Rinaldi D.N.P., R.N., [facility] documented as of this encounter Visit Diagnoses Not on filedocumented in this encounter Additional Health Concerns Infection Onset Date Last Indicated Resolved Time Protective Environment 06/04/2023 06/04/2023 documented as of this encounter
--- OUTSIDE RECORDS SUMMARY | 2023-08-08 18:05 | XMS_ITS | Encounter Summary ---
Author Name Unknown Organization [facility] Address [address] [place] [address] Care Team Providers Care Workers Compensation Specialist Name Role Phone Elsewhere, Pcp Primary Care Provider Unavailabl e Reason for Visit * Reason Onset Date Comments Redirect Prescriptions 07/01/2023 Encounter Details Date Type Department Care Team (Latest Contact Info) Description 07/01/2023 Clinical Communication [facility] [address] [place] [phone] Cherelle Brooks C.Ph.T. [address] [place] [address] Redirect Prescriptions Social History Tobacco Use Types Packs/Day Years [...] Assigned at Female 05/31/2023 8:26 AM MOBILE LOUNGE DRIVER Gender Identity Female 05/31/2023 8:26 AM MOBILE LOUNGE DRIVER Sexual Orientation Straight 05/31/2023 8: 26 AM MOBILE LOUNGE DRIVER documented as of this encounter Miscellaneous Notes * Addendum Note - Armani Nielson M.D., Ph.D. - 07/02/2023 3:46 PM MOBILE LOUNGE DRIVER Addended by: ARMANI NIELSON on: 07/02/2023 03:46 PM Modules accepted: Orders LE LOUNGE DRIVER documented in this encounter Plan of Treatment Upcoming Encounters Date Type Department Care Team (Late st Contact Info) Description 08/19/2023 6:40 AM MOBILE LOUNGE DRIVER Appointment Department of Laboratory Medicine and Pathology, [facility] in [place], [place] [address] [place] [phone] Armani Nielson M.D., Ph.D. [address] [place] [phone] 08/19/2023 7:00 AM MOBILE LOUNGE DRIVER Ancillary Procedure Department of Cardiovascular Medicine in [address] [phone] Armani Nielson M.D., Ph.D. [address] [place] [phone] 08/19/2023 9:00 AM MOBILE LOUNGE DRIVER Appointment Department of Radiology, [facility] in [place], [place] [address] [place] [place] [phone] Armani Nielson M.D., Ph.D. [address] [place] [phone] 08/19/2023 3:40 PM MOBILE LOUNGE DRIVER Office Visit Department of Oncology in [place], [place] [address] [place] [place] [phone] Zhane Granados, GAIL, C.N.P. [address] [place] [phone] 08/21/2023 10:15 AM MOBILE LOUNGE DRIVER Clinical Support Department of Palliative Care in [place], [place] 200 [place] [address] Serenity Kelsey P.A.-C. [address] [place] [phone] Meka Rinaldi D.N.P., R.N., [facility] documented as of this encounter Visit Diagnoses Not on filedocumented in this encounter Additional Health Concerns Infection Onset Date Last Indicated Resolved Time Protective Environment 06/04/2023 06/04/2023 documented as of this encounter Care Teams Workers Compensation Specialist Relationship Specialty Start Date End Date Elsewhere, Pcp PCP - General Family Medicine 06/17/23 documented as of this encounter
--- OUTSIDE RECORDS SUMMARY | 2023-08-08 18:05 | XMS_ITS | Encounter Summary ---
Author Name Unknown Organization [facility] Address [address] [place] [address] Care Team Providers Care Manager Financial Planning Name Role Phone Unavailable Primary Care Provider Unavailabl e Encounter Details Date Type Department Care Team (Late st Contact Info) Description 06/04/2023 4:40 PM MANAGER MANAGEMENT Education Department of Oncology in [place], [place] [address] [place] [phone] Pérez Zuniga M.D., Ph.D. [address] [place] [phone] Anahy Amezcua R.N., O.C.N. [address] [place] [phone] Melanoma Trunk (HCC); Secondary Malignant Neoplasm Bone [...] Sex Assigned at Female 05/31/2023 8:26 AM MANAGER MANAGEMENT Gender Identity Female 05/31/2023 8:26 AM MANAGER MANAGEMENT Sexual Orientation Straight 05/31/2023 8: 26 AM MANAGER MANAGEMENT documented as of this encounter Progress Notes * Anahy Amezcua R.N., O.C.N. - 06/04/2023 4:40 PM CST Cancer Treatment Education Visit REASON FOR VISIT Met with Tony Cota for cancer treatment education. ASSESSMENT/PLAN Patient education provided per the cancer treatment letter attached in encounters. Printed materials provided to patient per Education Tab. Answered questions. Patient verbalized understanding and voiced appreciation for education. GER MANAGEMENT documented in this encounter Plan of Treatment Upcoming Encounters Date Type Department Care Team (Late st Contact Info) Description 08/19/2023 6:40 AM MANAGER MANAGEMENT Appointment Department of Laboratory Medicine and Pathology, [facility] in [address] [phone] Pérez Zuniga M.D., Ph.D. [address] [place] [phone] 08/19/2023 7:00 AM MANAGER MANAGEMENT Ancillary Procedure Department of Cardiovascular Medicine in [address] [phone] Pérez Zuniga M.D., Ph.D. [address] [place] [phone] 08/19/2023 9:00 AM MANAGER MANAGEMENT Appointment Department of Radiology, [facility] in [place], [place] [address] [place] [phone] Pérez Zuniga M.D., Ph.D. [address] [place] [phone] 08/19/2023 3:40 PM MANAGER MANAGEMENT Office Visit Department of Oncology in [address] [phone] Zhane Granados APRN, C.N.P. [address] [place] [phone] 08/21/2023 10:15 AM [facility] Clinical Support Department of Palliative Care in [place], [place] [address] [place] [phone] Serenity Kelsey, PSantoshA.-C. [address] [place] [phone] Meka Rinaldi D.N.P., R.N., [facility] documented as of this encounter Visit Diagnoses Diagnosis 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) documented in this encounter Additional Health Concerns Infection Onset Date Last Indicated Resolved Time Protective Environment 06/04/2023 06/04/2023 documented as of this encounter
--- OUTSIDE RECORDS SUMMARY | 2023-08-08 18:06 | XMS_ITS | Encounter Summary ---
Author Name Unknown Organization [facility] Address [address] [place] [id number] Care Team Providers Care Calender Roll Operator Name Role Phone Elsewhere, Pcp Primary Care Provider Unavailabl e Reason for Visit * Reason Onset Date Comments Pre-visit Testing Orders 05/28/2023 New Reg Encounter Details Date Type Department Care Team (Latest Contact Info) Description 05/28/2023 Clinical Communication Department of Oncology in [place], [place] [address] [place] [phone] Naida Mejia P.A.-C., M.S. [address] [place] [phone] Pre-visit Testing Orders (New Reg) Social History Tobacco Use Types Packs/Day Years Used Date Smoking Tobacco: Never Assessed Nutrition Answer Date Recorded Nutrition: EVOO Fat Source Unknown 05/06 Nutrition: Servings of Fruits/Vegetables per Day Not on file 05/06/2023 Dental Answer Date Recorded Dental: Regular Dentist Unknown 05/06/20 Sex and Gender Information Value Date Recorded Sex Assigned at Female 05/31/2023 8:26 AM WASHTUB WORKER Gender Identity Female 05/31/2023 8:26 AM WASHTUB WORKER Sexual Orientation Straight 05/31/2023 8: 26 AM WASHTUB WORKER documented as of this encounter Plan of Treatment Upcoming Encounters Date Type Department Care Team (Late st Contact Info) Description 08/19/2023 6:40 AM WASHTUB WORKER Appointment Department of Laboratory Medicine and Pathology, [facility] in [place], [place] [address] [place] [phone] Pérez Zuniga M.D., Ph.D. [address] [place] [phone] 08/19/2023 7:00 AM WASHTUB WORKER Ancillary Procedure Department of Cardiovascular Medicine in [place], [place] [address] [place] [phone] Pérez Zuniga M.D., Ph.D. [address] [place] [phone] 08/19/2023 9:00 AM WASHTUB WORKER Appointment Department of Radiology, [facility] in [place], [place] [address] [place] [phone] Pérez Zuniga M.D., Ph.D. [address] [place] [phone] 08/19/2023 3:40 PM WASHTUB WORKER Office Visit Department of Oncology in [place], [place] [address] [place] [phone] Zhane Granados, GAIL, C.N.P. [address] [place] [phone] 08/21/2023 10:15 AM WASHTUB WORKER Clinical Support Department of Palliative Care in [place], [place] [address] [place] [phone] Serenity Kelsey, P.A.-C. [address] [place] [phone] Meka Rinaldi D.N.P., R.N., [facility] documented as of this encounter Visit Diagnoses Not on filedocumented in this encounter Additional Health Concerns Infection Onset Date Last Indicated Resolved Time Protective Environment 06/04/2023 06/04/2023 documented as of this encounter Care Teams Calender Roll Operator Relationship Specialty Start Date End Date Elsewhere, Pcp PCP - General Family Medicine 06/17/23 documented as of this encounter
--- OUTSIDE RECORDS SUMMARY | 2023-08-08 18:06 | XMS_ITS | Encounter Summary ---
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 200 [place] [phone] [facility] Referral ID Status Reason Start Date Expiration Date Visits Re quested Visits Authorized [id number] Closed 06/04/2023 06/03/2024 1 1 ER WINDER * Specialty Diagnoses / Procedures Referred By Contac t Referred To Contact Pérez Zuniga M.D., Ph.D. 200 [place] [phone] [facility] Referral ID Status Reason Start Date Expiration Date Visits Re quested Visits Authorized ER WINDER * Outpatient (Routine) - Closed Specialty Diagnoses / Procedures Referred By Contac t Referred To Contact Oncology Pérez Zuniga M.D., Ph.D. 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 [address] [place] [phone] [facility] Referral ID Status Reason Start Date Expiration Date Visits Re quested Visits Authorized [id number] Closed 06/04/2023 06/03/2024 1 1 ER WINDER Reason for Visit * Appointment Request (Routine) - Closed Specialty Diagnoses / Procedures Referred By Mikki t Referred To Contact Oncology Diagnoses Metastatic Melanoma Cancer Referral ID Status Reason Start Date Expiration Date Visits Re quested Visits Authorized [id number] Closed 05/22/2023 05/21/2024 1 1 Encounter Details Date Type Department Care Team (Latest Contact Info) Description 06/04/2023 2:20 PM FOSTER WINDER Comprehensive Visit Department of Oncology in [place], [place] 200 [place] [phone] Péerz Zuniga M.D., Ph.D. [address] [place] [phone] Melanoma Trunk (HCC) (Primary Dx); Secondary Malignant Neoplasm Bone (HCC); Other Snf Current Drug Therapy Social History Tobacco Use Types Packs/Day Years Used Date Smoking Tobacco: Never Smokeless Tobacco: Never Tobacco Cessation:Counseling Given: Not Answered Alcohol Use Standard Drinks/Week Comments Yes 1 (1 standard drink = 0.6 oz pur e alcohol) Occasional Nutrition Answer Date Recorded Nutrition: EVOO Fat Source Unknown 05/06 Nutrition: Servings of Fruits/Vegetables per Day Not on file 05/06/2023 Dental Answer Date Recorded Dental: Regular Dentist Unknown 05/06/20 Sex and Gender Information Value Date Recorded Sex Assigned at Female 05/31/2023 8:26 AM FOSTER WINDER Gender Identity Female 05/31/2023 8:26 AM FOSTER WINDER Sexual Orientation Straight 05/31/2023 8: 26 AM FOSTER WINDER documented as of this encounter Last Filed Vital Signs Vital Sign Reading Time Taken Comments Blood Pressure 103/69 06/04/2023 2:11 PM FOSTER WINDER Pulse 81 06/04/2023 2:11 PM FOSTER WINDER Temperature 36.3 ??C (97.3 ??F) 06/04/2023 2:11 PM CS T Respiratory Rate 17 06/04/2023 2:11 PM FOSTER WINDER Oxygen Saturation 100% 06/04/2023 2:11 PM FOSTER WINDER Inhaled Oxygen Concentration - - Weight 85 kg (187 lb 6.3 oz) 06/04/2023 2:11 PM FOSTER WINDER Height 160 cm (5' 2.99) 06/04/2023 2:11 PM FOSTER WINDER Body Mass Index 33.2 06/04/2023 2:11 PM FOSTER WINDER documented in this encounter Consult Notes * Pérez Zuniga M.D., Ph.D. 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 Cota presents for evaluation of melanoma. She has widely metastatic disease which is symptomatic with pain in the L shoulder, L femur (biopsy site) and frequent urination/pelvic pain due to a large pelvic mass pressing on the bladder. ECOG performance status is 1. REVIEW OF SYSTEMS Pertinent items are noted in HPI; all other review of systems were negative. I reviewed the Medications, Allergies, Past Medical History, Social History, and Family History. OBJECTIVE VITAL SIGNS Vitals: 06/04/23 1411 BP: 103/69 BP Location: Right arm Patient Position: Sitting Cuff Size: Large Pulse: 81 Resp: 17 Temp: 36.3 ??C TempSrc: Tympanic SpO2: 100% Weight: 85 kg Height: 160 cm DISTRESS SCORE: No data recorded PHYSICAL EXAMINATION General: Alert female in no acute distress. Ambulates on and off the exam table without difficulty. Skin: No rashes. Eyes: Sclerae non-icteric. ENT: Moist mucous membranes. No oral lesions. Lymph: No palpable cervical, supraclavicular, or axillary lymphadenopathy. Heart: Regular rate and rhythm. Lungs: Clear to auscultation and resonant to percussion bilaterally. ASSESSMENT / PLAN Metastatic malignant melanoma, unknown primary, BRAF V600E positive. Mrs. Cota is a delightful 47 araceli with newly diagnosed met melanoma with mostly bony mets, pelvic mass and small brain mets. She has symptomatic mets in the L shoulder and L femur, currently on narcotics. Deep pelvic pain/bladder issues are due to a pelvic mass. I had a long conversation with the patient and family regarding her disease and options for treatment. Considering that the melanoma is wide spread and symptomatic, mybest recommendation would be to start therapy with a BRAF/MEK inhibitor combination that has penetrance to the brain. Our plan will be to start with full doses of dabrafenib + trametinib and use one of or pharmacy vouchers so that we can start therapy today. We will obtain an ECG today before the patient leaves. After discussing the risks, benefits and alternatives of therapy, and family agreed to proceed with DT treatment. We will initiate the process immediately, hoping to get her on treatment yet this week. Anemia. Mrs. Cota has a mild anemia that may be related to the malignancy infiltrating the bone marrow. We will follow the CBC in 2 weeks when she will come back for a tox check and re evaluation. Disposition. At this point, my main goal is volume reduction of the melanoma. We will obtain a f/u PET/CT and brain MRI in 2 months and potentially transition to immunotherapy, depending on the status of the disease. We will follow up with her in 2 week, 4 weeks and 2 months. Bone pain. Mrs. Cota is currently on narcotics for her bone pain. We will ask our colleagues in Palliative Medicine to see her at her next f/u visit. PATIENT EDUCATION Learning needs assessment was performed. No learning barriers were identified. Explained diagnosis and treatment plan. Patient expressed understanding and was able to teach back. ADMINISTRATIVE BILLING I personally spent over half of a total 60 minutes with the patient in counseling and discussion and/or coordination of care as described above. ER WINDER documented in this encounter Miscellaneous Notes * Addendum Note - Laura Amezcua R.N., O.C.N. - 06/04/2023 2:20 PM CSTAddended by: LAURA AMEZCUA on: 06/04/2023 03:23 PM Modules accepted: Orders ER WINDER * Addendum Note - Laura Amezcua R.N., O.C.N. - 06/04/2023 2:20 PM CSTAddended by: LAURA AMEZCUA on: 06/04/2023 03:38 PM Modules accepted: Orders ER WINDER documented in this encounter Plan of Treatment Upcoming Encounters Date Type Department Care Team (Late st Contact Info) Description 08/19/2023 6:40 AM FOSTER WINDER Appointment Department of Laboratory Medicine and Pathology, [facility], in [place], [place] [address] [place] [phone] Pérez Zuniga M.D., Ph.D. [address] [place] [phone] 08/19/2023 7:00 AM FOSTER WINDER Ancillary Procedure Department of Cardiovascular Medicine in [place], [place] [address] [place] [phone] Pérez Zuniga M.D., Ph.D. [address] [place] [phone] 08/19/2023 9:00 AM FOSTER WINDER Appointment Department of Radiology, [facility], in [place], [place] [address] [place] [phone] Pérez Zuniga M.D., Ph.D. [address] [place] [phone] 08/19/2023 3:40 PM FOSTER WINDER Office Visit Department of Oncology in [place], [place] [address] [place], [place] [phone] Zhane Granados APRN, C.N.P. [address] [place] [phone] 08/21/2023 10:15 AM FOSTER WINDER Clinical Support Department of Palliative Care in [place], [place] [address] [place] [phone] Serenity Kelsey, P.A.-C. 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 LEFT VENTRICLE:Normal [...] the Order-Level Documents. Narrative 06/20/2023 1:42 PM FOSTER WINDER For the complete report, see the Order-Level [...] pericardial effusion. Findings There are no previous [facility] echocardiograms available forcomparison. LEFT VENTRICLE:Normal left [...] (with Reflex Antibody ID) (06/20/2023 12:01 PM FOSTER WINDER) ABORh O Neg Not applicable 06/20/2023 1:48 PM FOSTER WINDER ETRM Antibody Screen Negative Negative 06/20/2023 2:00 PM FOSTER WINDER ETRM Type & Screen Expiration 06/23/2023 23:59 06/20/2023 1:48 PM FOSTER WINDER ETRM Testing Location [facility] 06/20/2023 12:53 PM FOSTER WINDER ETRM Blood (Blood, Venous) 06/20/2023 12:01 PM FOSTER WINDER 06/20/2023 12:53 PM FOSTER WINDER Pérez Zuniga M.D., Ph.D. LAB BLOO D BANK TEST ORDERABLES Performing Organization Address [facility] Co de Phone Number [facility] 200 [place] [address], [facility] ETRM [facility] 200 [place] [address] * Thyroid Function [place] (06/20/2023 12:01 PM FOSTER WINDER) TSH, Sensitive 1.5 0.3 - 4.2 mIU/L 06/20/2023 1:14 PM FOSTER WINDER DTL Blood (Blood, Venous) 06/20/2023 12:01 PM FOSTER WINDER 06/20/2023 12:41 PM FOSTER WINDER Pérez Zuniga M.D., Ph.D. LAB BLOO D ADD-ON Performing Organization Address [facility] Co de Phone Number [facility] 200 [place] [address], [facility] DTL [facility] 200 [place] [address] * (ABNORMAL) Comprehensive Metabolic Panel (06/20/2023 12:01 PM FOSTER WINDER) Potassium, S 4.0 3.6 - 5.2 mmol/L 06/20/2023 1:14 PM FOSTER WINDER DTL Sodium, S 137 135 - 145 mmol/L 06/20/2023 1:14 PM FOSTER WINDER DTL Chloride, S 101 98 - 107 mmol/L 06/20/2023 1:14 PM FOSTER WINDER DTL Bicarbonate, S 20(L) 22 - 29 mmol/L 06/20/2023 1:14 PM FOSTER WINDER DTL Anion Gap 16(H) 7 - 15 06/20/2023 1:14 PM FOSTER WINDER DTL BUN (Blood Urea Nitrogen), S 27(H) 6 - 21 mg/dL 06/20/2023 1:14 PM FOSTER WINDER DTL Creatinine 0.94 0.59 - 1.04 mg/dL 06/20/2023 1:14 PM FOSTER WINDER DTL Estimated GFR (eGFR) 76 >=60 mL/min/BS A 06/20/2023 1:14 PM FOSTER WINDER DTL Comment: Estimated GFR calculated using the 2020 CKD_EPI creatinine equation. Calcium, Total, S 9.7 8.6 - 10.0 mg/dL 06/20/2023 1:14 PM FOSTER WINDER DTL Glucose, S 101 70 - 140 mg/dL 06/20/2023 1:14 PM FOSTER WINDER DTL Protein, Total, S 7.7 6.3 - 7.9 g/dL 06/20/2023 1:14 PM FOSTER WINDER DTL Albumin, S 4.1 3.5 - 5.0 g/dL 06/20/2023 1:14 PM FOSTER WINDER DTL Aspartate Aminotransferase (AST), S 26 8 - 43 U/L 06/20/2023 1:14 PM FOSTER WINDER DTL Alkaline Phosphatase, S 277(H) 35 - 104 U/L 06/20/2023 1:14 PM FOSTER WINDER DTL Alanine Aminotransferase (ALT), S 22 7 - 45 U/L 06/20/2023 1:14 PM FOSTER WINDER DTL Bilirubin, Total, S 0.2 0.0 - 1.2 mg/dL 06/20/2023 1:14 PM FOSTER WINDER DTL Blood (Blood, Venous) 06/20/2023 12:01 PM FOSTER WINDER 06/20/2023 12:41 PM FOSTER WINDER Pérez Zuniga M.D., Ph.D. LAB BLOO D ADD-ON [facility] [address] [place] [address], [facility] [address] [place] [address] * (ABNORMAL) CBC with Differential, Blood (06/20/2023 12:01 PM FOSTER WINDER) Hemoglobin 7.6(L) 11.6 - 15.0 g/dL 06/20/2023 1:15 PM FOSTER WINDER DTL Hematocrit 24.1(L) 35.5 - 44.9 % 06/20/2023 1:15 PM FOSTER WINDER DTL Erythrocytes 2.49(L) 3.92 - 5.13 x10(12)/L 06/20/2023 1:15 PM FOSTER WINDER DTL MCV 96.8 78.2 - 97.9 fL 06/20/2023 1:15 PM FOSTER WINDER DTL RBC Distrib Width 16.2(H) 12.2 - 16.1 % 06/20/2023 1:15 PM FOSTER WINDER DTL Platelet Count 496(H) 157 - 371 x10(9)/L 06/20/2023 1:15 PM FOSTER WINDER DTL Leukocytes 7.9 3.4 - 9.6 x10(9)/L 06/20/2023 1:15 PM FOSTER WINDER DTL Neutrophils 4.72 1.56 - 6.45 x10(9)/L 06/20/2023 1:15 PM FOSTER WINDER DHPM Lymphocytes 1.98 0.95 - 3.07 x10(9)/L 06/20/2023 1:15 PM FOSTER WINDER DTL Monocytes 0.90(H) 0.26 - 0.81 x10(9)/L 06/20/2023 1:15 PM FOSTER WINDER DTL Eosinophils 0.22 0.03 - 0.48 x10(9)/L 06/20/2023 1:15 PM FOSTER WINDER DTL Basophils 0.07 0.01 - 0.08 x10(9)/L 06/20/2023 1:15 PM FOSTER WINDER DTL Blood (Blood, Venous) 06/20/2023 12:01 PM FOSTER WINDER 06/20/2023 12:26 PM FOSTER WINDER Pérez Zuniga M.D., Ph.D. LAB BLOO D ADD-ON [facility] [address] [place] [address], [facility] DTL [facility] [address] [place] [address] DHPM [facility] [address] [place] [address] * ECG 12 Lead (06/04/2023 4:02 PM FOSTER WINDER) Ventricular Rate ECG/Min 83 BPM MUSE NJ Interval 146 ms MUSE QRSD Interval 84 ms MUSE QT Interval 392 ms MUSE QTC Interval 460 ms MUSE P Atlantic 50 degrees MUSE R Atlantic 51 degrees MUSE T Wave Atlantic -10 degrees MUSE 06/04/2023 4:02 PM FOSTER WINDER 06/04/2023 4:11 PM FOSTER WINDER Impressions MUSE - 06/04/2023 4:11 PM FOSTER WINDER Normal sinus rhythm Low voltage QRS Nonspecific ST and T wave abnormality No previous ECGs available Reviewed by BREANNA Schwarz Narrative Procedure Note Cornelius Amezcua M.D., Ph.D. - 06/04/2023 IMPRESSION: Normal sinus rhythm Low voltage QRS Nonspecific ST and T wave abnormality No previous ECGs available Reviewed by BREANNA Schwarz Svetomdenise Zuniga M.D., Ph.D. ECG [facility]DE [facility] MUSE NA * Interpretation of Outside NM PET Scan (06/04/2023 7:56 AM FOSTER WINDER) Anatomical Region Laterality Modality Nuclear Medicine PET RST LOS , Nuclear Medicine ARZ LOS, Nuclear Medicine FLA LOS, Nuclear Medicine, Other, Neuroradiology ARZ LOS, Neuroradiology FLA LOS, Neuroradiology RST LOS, Body N/A Nuclear Medicine 06/10/2023 8:28 AM FOSTER WINDER Impressions 06/10/2023 10:24 AM FOSTER WINDER 1. Large intensely hypermetabolic mixed solid and [...] of the report. Narrative 06/10/2023 10:24 AM FOSTER WINDER EXAM: ??INTERPRETATION OF OUTSIDE NM PET SCAN [...] of the report. Pérez Zuniga M.D., Ph.D. IM NM P ROCEDURES * Interpretation of Outside MR Extremity (06/04/2023 7:54 AM FOSTER WINDER) Anatomical Region Laterality Modality Musculoskeletal RST LOS, Mus culoskeletal ARZ LOS, Muskuloskeletal FLA LOS, Musculoskeletal, Other N/A Magnet ic Resonance 06/04/2023 11:3 3 AM FOSTER WINDER Impressions 06/04/2023 11:45 AM FOSTER WINDER There are several 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 The largest is seen proximally extending off of the proximal kzdco-nd-eesr. This involves the intertrochanteric left femur extending [...] diaphysis, which extends off of the proximal slhey-dm-kexd (series 3 and 4 image 15). The lesions right around the knee were not present on the MRI from October 2014 and correlate with areas of hypermetabolic activity on the recent PET CT. Findings are compatible with recent biopsy results of metastatic melanoma. Large dtxvz-kj-kslp coronal and axial images include the right femur, which demonstrates numerous large intramedullary lesions throughout the right femoral diaphysis as well as the proximal right tibial diaphysis, as well. No definite discrete soft tissue masses within either thigh. Narrative 06/04/2023 11:45 AM FOSTER WINDER EXAM: ??INTERPRETATION OF OUTSIDE MR LEFT FEMUR [...] is seen proximally extending off of the ywnaeocfwimhe-zy-fdcd. This involves the intertrochanteric left femur extendingdistally [...] tibial diaphysis, which extends offof the proximal cvyzm-vq-ovke (series 3 and 4 image 15). The lesions right around the knee were not present on the MRIfrom October 2014 and correlate with areas of hypermetabolic activity on therecent PET CT. Findings are compatible with recent biopsy results ofmetastatic melanoma. Large hldri-uj-uyzy coronal and axial images include the right femur, whichdemonstrates numerous large intramedullary lesions throughout the rightfemoral diaphysis as well as the proximal right tibial diaphysis, as well.No definite discrete soft tissue masses within either thigh. Pérez Zuniga M.D., Ph.D. 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
--- OUTSIDE RECORDS SUMMARY | 2023-08-08 18:06 | XMS_ITS | Encounter Summary ---
Author Name Unknown Organization [facility] Address [address] [place] [address] Care Team Providers Care Resource Specialist Name Role Phone Unavailable Primary Care Provider Unavailabl e Reason for Visit * Reason Onset Date Comments Pre-visit Intake 05/22/2023 NEW REG Encounter Details Date Type Department Care Team (Latest Contact Info) Description 05/22/2023 Clinical Communication Department of Oncology in [place], [place] [address] [place] [address] Prescheduling, Provider Pre-visit Intake (NEW REG ) Social History Tobacco Use Types Packs/Day Years Used Date Smoking Tobacco: Never Assessed Nutrition Answer Date Recorded Nutrition: EVOO Fat Source Unknown 05/06 Nutrition: Servings of Fruits/Vegetables per Day Not on file 05/06/2023 Dental Answer Date Recorded Dental: Regular Dentist Unknown 05/06/20 Sex and Gender Information Value Date Recorded Sex Assigned at Female 05/31/2023 8:26 AM BOOK RETAILER Gender Identity Female 05/31/2023 8:26 AM BOOK RETAILER Sexual Orientation Straight 05/31/2023 8: 26 AM BOOK RETAILER documented as of this encounter Plan of Treatment Upcoming Encounters Date Type Department Care Team (Late st Contact Info) Description 08/19/2023 6:40 AM BOOK RETAILER Appointment Department of Laboratory Medicine and Pathology, [facility], in [place], [place] [address] [place] [address] Pérez Zuniga M.D., Ph.D. [address] [place] [phone] 08/19/2023 7:00 AM BOOK RETAILER Ancillary Procedure Department of Cardiovascular Medicine in [place], [place] [address] [place] [address] Péerz Zuniga M.D., Ph.D. [address] [place] [phone] 08/19/2023 9:00 AM BOOK RETAILER Appointment Department of Radiology, [facility], in [place], [place] [address] [place] [address] Pérez Zuniga M.D., Ph.D. [address] [place] [phone] 08/19/2023 3:40 PM BOOK RETAILER Office Visit Department of Oncology in [place], [place] [address] [place] [phone] Zhane Granados, NETWORK SUPPORT MANAGER, C.N.P. [address] [place] [phone] 08/21/2023 10:15 AM BOOK RETAILER Clinical Support Department of Palliative Care in [place], [place] [address] [place] [address] Serenity Kelsey, P.A.-C. [address] [place] [phone] Meka Rinaldi, Elvin.N.P., R.N., [facility] documented as of this encounter Visit Diagnoses Not on filedocumented in this encounter
--- OUTSIDE RECORDS SUMMARY | 2023-08-08 18:06 | XMS_ITS | Encounter Summary ---
Author Name Unknown Organization [facility] Address [address] [place] [address] Care Team Providers Care Video Game Developer Name Role Phone Unavailable Primary Care Provider Unavailabl e Encounter Details Date Type Department Care Team (Latest Contact Info) Description 06/04/2023 7:35 AM ASSEMBLY PERSON Ancillary Procedure Department of Radiology in [place], [place] [address] [place] [address] Pérez Zuniga M.D., Ph.D. [address] [place] [phone] Melanoma Trunk (HCC); Secondary Malignant Neoplasm Bone [...] Sex Assigned at Female 05/31/2023 8:26 AM ASSEMBLY PERSON Gender Identity Female 05/31/2023 8:26 AM ASSEMBLY PERSON Sexual Orientation Straight 05/31/2023 8: 26 AM ASSEMBLY PERSON documented as of this encounter Plan of Treatment Upcoming Encounters Date Type Department Care Team (Late st Contact Info) Description 08/19/2023 6:40 AM ASSEMBLY PERSON Appointment Department of Laboratory Medicine and Pathology, [facility] in [place], [place] [address] [place] [phone] Pérez Zuniga M.D., Ph.D. [address] [place] [phone] 08/19/2023 7:00 AM ASSEMBLY PERSON Ancillary Procedure Department of Cardiovascular Medicine in [place], [place] [address] [place] [phone] Pérez Zuniga M.D., Ph.D. [address] [place] [phone] 08/19/2023 9:00 AM ASSEMBLY PERSON Appointment Department of Radiology, [facility] in [place], [place] [address] [place] [phone] Pérez Zuniga M.D., Ph.D. [address] [place] [phone] 08/19/2023 3:40 PM ASSEMBLY PERSON Office Visit Department of Oncology in [place], [place] [address] [place] [phone] Zhane Granados, SUPERINTENDENT SALES, C.N.P. [address] [place] [phone] 08/21/2023 10:15 AM ASSEMBLY PERSON Clinical Support Department of Palliative Care in [place], [place] [address] [place] [phone] Serenity Kelsey, P.A.-C. 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 The largest is seen proximally extending off of the proximal muzjy-jc-sbvk. This involves the intertrochanteric left femur extending [...] diaphysis, which extends off of the proximal phiyv-ap-hrxa (series 3 and 4 image 15). The lesions right around the knee were not present on the MRI from October 2014 and correlate with areas of hypermetabolic activity on the recent PET CT. Findings are compatible with recent biopsy results of metastatic melanoma. Large khagv-va-xdbf coronal and axial images include the right femur, which demonstrates numerous large intramedullary lesions throughout the right femoral diaphysis as well as the proximal right tibial diaphysis, as well. No definite discrete soft tissue masses within either thigh. Narrative 06/04/2023 11:45 AM ASSEMBLY PERSON EXAM: ??INTERPRETATION OF OUTSIDE MR LEFT FEMUR [...] is seen proximally extending off of the ushidbsvomfng-cs-corv. This involves the intertrochanteric left femur extendingdistally [...] tibial diaphysis, which extends offof the proximal dmuzm-uf-llxj (series 3 and 4 image 15). The lesions right around the knee were not present on the MRIfrom October 2014 and correlate with areas of hypermetabolic activity on therecent PET CT. Findings are compatible with recent biopsy results ofmetastatic melanoma. Large kmnce-al-klpj coronal and axial images include the right [...]
--- OUTSIDE RECORDS SUMMARY | 2023-08-08 18:06 | XMS_ITS | Encounter Summary ---
Author Name Unknown Organization [facility] Address [address] [place] [address] Care Team Providers Care Surety Bond Agent Name Role Phone Unavailable Primary Care Provider Unavailabl e Encounter Details Date Type Department Care Team (Late st Contact Info) Description 05/24/2023 7:55 AM MANAGER FACILITY Lab RST RO LMP [address] [place] [phone] Naida Mejia P.A.-C., M.S. [address] [place] [phone] Melanoma Trunk (HCC); Secondary Malignant Neoplasm Bone [...] Assigned at Female 05/31/2023 8:26 AM MANAGER FACILITY Gender Identity Female 05/31/2023 8:26 AM MANAGER FACILITY Sexual Orientation Straight 05/31/2023 8: 26 AM MANAGER FACILITY documented as of this encounter Plan of Treatment Upcoming Encounters Date Type Department Care Team (Late st Contact Info) Description 08/19/2023 6:40 AM MANAGER FACILITY Appointment Department of Laboratory Medicine and Pathology, [facility] in [place], [place] [address] [place] [phone] Pérez Zuniga M.D., Ph.D. [address] [place] [phone] 08/19/2023 7:00 AM MANAGER FACILITY Ancillary Procedure Department of Cardiovascular Medicine in [place], [place] [address] [place] [phone] Pérez Zuniga M.D., Ph.D. [address] [place] [phone] 08/19/2023 9:00 AM MANAGER FACILITY Appointment Department of Radiology, [facility] in [place], [place] [address] [place] [phone] Pérez Zuniga M.D., Ph.D. [address] [place] [phone] 08/19/2023 3:40 PM MANAGER FACILITY Office Visit Department of Oncology in [address] [phone] Zhane Granados, GAIL, C.N.P. [address] [place] [phone] 08/21/2023 10:15 AM MANAGER FACILITY Clinical Support Department of Palliative Care in [place], [place] [address] [place] [phone] Serenity Kelsey, P.A.-C. 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 06/24/2023 1:13 PM MANAGER FACILITY DTL Additional Information CLINICAL TRIALS Possible clinical trials of benefit for this patient can be found at the following sites: 1) ClinicalTrials.gov: www.clinicaltrials. gov/ct2/search/adva nced 2) [facility]: www.[facility]/resear ch/clinical-trials/ 3) [employer] [place]: www.cancer.gov/clin icaltrials/search REFERENCE TRANSCRIPT Sequence variant nomenclature is based on the following RefSeq accession number (build GRCh37 (hg19)):BRAF [id number]. 06/24/2023 1:13 PM MANAGER FACILITY DTL Specimen Tissue, Tumor 06/24/2023 1:13 PM MANAGER FACILITY DTL Tissue ID [id number] 06/24/2023 1:13 PM MANAGER FACILITY DTL Method Microscopic examination is performed by [...] and additional information on this test, see www.[employer]. [employer] (Test ID BRFKT). 06/24/2023 1:13 PM MANAGER FACILITY DTL Disclaimer This test cannot differentiate between [...] of heterozygosity) and sequencing artifact/misalignme nt [PMID: [id number], PMID: 74066375]. Rare polymorphisms may be present that could [...] developed and its performance characteristics determined by [facility] in a manner consistent with CLIA requirements. This test has not been cleared or approved by the U.S. Food and Drug Administration. 06/24/2023 1:13 PM MANAGER FACILITY DTL Released By Lexy Lang M.D. 06/24/2023 1:13 PM MANAGER FACILITY DTL Interpretation BRAF c.1799T>A (p.V600E) (Exon 15) BRAF encodes the signaling protein Braf, which is downstream of Eduardo and activates the MAPK pathway. Braf signaling is critically involved in the processes of cell division and differentiation. BRAF activating mutations occur predominantly at a single location (V600E). BRAF activating mutations or amplification have been reported to result in uncontrolled cell growth and tumorigenesis [PMID:[id number], PMID:22767413]. Clinically approved targeted therapy is available for patients with unresectable or metastatic solid tumors with a BRAF V600E mutation [fda.gov/drugs]. 06/24/2023 1:13 PM MANAGER FACILITY DTL Tissue (Bone) 05/13/2023 8:2 7 AM CDT 06/16/2023 1:57 PM MANAGER FACILITY Naida Mejia P.A.-C. MSantoshS. LAB GENE TIC TESTING 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
--- OUTSIDE RECORDS SUMMARY | 2023-08-08 18:06 | XMS_ITS | Encounter Summary ---
Author Name Unknown Organization [facility] Address [address] [place] [address] Care Team Providers Care Spool Hauler Name Role Phone Elsewhere, Pcp Primary Care Provider Unavailabl e Encounter Details Date Type Department Care Team (Late st Contact Info) Description 05/23/2023 Clinical Communication Department of Oncology in [place], [place] [address] [place] [phone] Naida Mejia P.A.-C., M.S. [address] [place] [phone] Social History Tobacco Use Types Packs/Day Years Used Date Smoking Tobacco: Never Assessed Nutrition Answer Date Recorded Nutrition: EVOO Fat Source Unknown 05/06 Nutrition: Servings of Fruits/Vegetables per Day Not on file 05/06/2023 Dental Answer Date Recorded Dental: Regular Dentist Unknown 05/06/20 Sex and Gender Information Value Date Recorded Sex Assigned at Female 05/31/2023 8:26 AM POWER LINE INSTALLER AND REPAIRER Gender Identity Female 05/31/2023 8:26 AM POWER LINE INSTALLER AND REPAIRER Sexual Orientation Straight 05/31/2023 8: 26 AM POWER LINE INSTALLER AND REPAIRER documented as of this encounter Plan of Treatment Upcoming Encounters Date Type Department Care Team (Late st Contact Info) Description 08/19/2023 6:40 AM POWER LINE INSTALLER AND REPAIRER Appointment Department of Laboratory Medicine and Pathology, [facility], in [place], [place] [address] [place] [phone] Pérez Zuniga M.D., Ph.D. [address] [place] [phone] 08/19/2023 7:00 AM POWER LINE INSTALLER AND REPAIRER Ancillary Procedure Department of Cardiovascular Medicine in [place], [place] [address] [place] [phone] Pérez Zuniga M.D., Ph.D. [address] [place] [phone] 08/19/2023 9:00 AM POWER LINE INSTALLER AND REPAIRER Appointment Department of Radiology, [facility] in [place], [place] [address] [place] [phone] Pérez Zuniga M.D., Ph.D. [address] [place] [phone] 08/19/2023 3:40 PM POWER LINE INSTALLER AND REPAIRER Office Visit Department of Oncology in [place], [place] [address] [place] [phone] Zhane Granados, BUS PERSON, C.N.P. [address] [place] [phone] 08/21/2023 10:15 AM POWER LINE INSTALLER AND REPAIRER Clinical Support Department of Palliative Care in [place], [place] [address] [place] [phone] Serenity Kelsey, P.A.-C. [address] [place] [phone] Meka Rinaldi D.N.P., R.N., [facility] documented as of this encounter Visit Diagnoses Not on filedocumented in this encounter Additional Health Concerns Infection Onset Date Last Indicated Resolved Time Protective Environment 06/04/2023 06/04/2023 documented as of this encounter Care Teams Spool Hauler Relationship Specialty Start Date End Date Elsewhere, Pcp PCP - General Family Medicine 06/17/23 documented as of this encounter
--- OUTSIDE RECORDS SUMMARY | 2023-08-08 18:06 | XMS_ITS | Encounter Summary ---
Author Name Unknown Organization [facility] Address [address] [place] [address] Care Team Providers Care Pharmacist Helper Name Role Phone Unavailable Primary Care Provider Unavailabl e Reason for Visit * MRI/CAT/PET Scan (Routine) - Authorized Specialty Diagnoses / Procedures Referred By Mikki feliciano Referred To Contact Radiology Diagnoses Tumor Bone Procedures CT Bone Biopsy Lacho Joshi M.D. [address] [place] [phone] [facility] Referral ID Status Reason Start Date Expiration Date V isits Requested Visits Authorized [id number] Authorized 05/07/2023 05/06/2024 1 1 Encounter Details Date Type Department Care Team (Latest Contact Info) Description 05/13/2023 11:59 PM CDT Hospital Encounter Department of Radiology, [facility] [place] [facility] in [place], [place] [address] [place] [phone] Lacho Joshi M.D. [address] [place] [phone] Canceled (Patient: Request) Discharge Disposition: Home or Self Care Social History Tobacco Use Types Packs/Day Years Used Date Smoking Tobacco: Never Assessed Nutrition Answer Date Recorded Nutrition: EVOO Fat Source Unknown 05/06 Nutrition: Servings of Fruits/Vegetables per Day Not on file 05/06/2023 Dental Answer Date Recorded Dental: Regular Dentist Unknown 05/06/20 Sex and Gender Information Value Date Recorded Sex Assigned at Female 05/31/2023 8:26 AM LIBRARY ASSOCIATE Gender Identity Female 05/31/2023 8:26 AM LIBRARY ASSOCIATE Sexual Orientation Straight 05/31/2023 8: 26 AM LIBRARY ASSOCIATE documented as of this encounter Medications at Time of Discharge Medication Sig Dispensed Refills Start Date End Date lisinopril-hydroCHLOROthia zide (PRINZIDE,ZESTORETIC) 10-12.5 mg per tablet Take 1 tablet by mouth every morning. 0 01/02/2023 omeprazole (PriLOSEC OTC) [address] tablet Take 20 mg by mouth every morning before breakfast. 0 05/08/2023 ondansetron ODT (ZOFRAN-ODT) 4 mg disintegrating tablet Dissolve 4 mg in the mouth every 8 (eight) hours as needed for nausea or vomiting. 0 05/08/2023 06/17/2023 documented as of this encounter Plan of Treatment Upcoming Encounters Date Type Department Care Team (Late st Contact Info) Description 08/19/2023 6:40 AM LIBRARY ASSOCIATE Appointment Department of Laboratory Medicine and Pathology, [place], [place] [address] [place] [phone] Pérez Zuniga M.D., Ph.D. [address] [place] [phone] 08/19/2023 7:00 AM LIBRARY ASSOCIATE Ancillary Procedure Department of Cardiovascular Medicine in [place], [place] [address] [place] [phone] Pérez Zuniga M.D., Ph.D. [address] [place] [phone] 08/19/2023 9:00 AM LIBRARY ASSOCIATE Appointment Department of Radiology, [facility] [place] [facility] in [place], [place] [address] [place] [phone] Pérez Zuniga M.D., Ph.D. [address] [place] [phone] 08/19/2023 3:40 PM LIBRARY ASSOCIATE Office Visit Department of Oncology in [place], [place] [address] [place] [phone] Zhane Granados APRN, C.N.P. [address] [place] [phone] 08/21/2023 10:15 AM LIBRARY ASSOCIATE Clinical Support Department of Palliative Care in [place], [place] [address] [place] [phone] Serenity Kelsey, P.A.-C. [address] [place] [phone] Meka Rinaldi D.N.P., R.N., [facility] documented as of this encounter Visit Diagnoses Not on filedocumented in this encounter
--- OUTSIDE RECORDS SUMMARY | 2023-08-08 18:06 | XMS_ITS | Encounter Summary ---
Author Name Unknown Organization [facility] Address [address] [place] [address] Care Team Providers Care Tariff Supervisor Name Role Phone Unavailable Primary Care Provider Unavailabl e Encounter Details Date Type Department Care Team (Latest Contact Info) Description 06/04/2023 7:35 AM TEXTILE SLITTING MACHINE OPERATOR Ancillary Procedure Department of Radiology in [place], [place] [address] [place] [phone] Pérez Zuniga M.D., Ph.D. [address] [place] [phone] Melanoma Trunk (HCC); Secondary Malignant Neoplasm Bone [...] Sex Assigned at Female 05/31/2023 8:26 AM TEXTILE SLITTING MACHINE OPERATOR Gender Identity Female 05/31/2023 8:26 AM TEXTILE SLITTING MACHINE OPERATOR Sexual Orientation Straight 05/31/2023 8: 26 AM TEXTILE SLITTING MACHINE OPERATOR documented as of this encounter Plan of Treatment Upcoming Encounters Date Type Department Care Team (Late st Contact Info) Description 08/19/2023 6:40 AM TEXTILE SLITTING MACHINE OPERATOR Appointment Department of Laboratory Medicine and Pathology, [facility] in [place], [place] [address] [place] [phone] Pérez Zuniga M.D., Ph.D. [address] [place] [phone] 08/19/2023 7:00 AM TEXTILE SLITTING MACHINE OPERATOR Ancillary Procedure Department of Cardiovascular Medicine in [place], [place] [address] [place] [phone] Pérez Zuniga M.D., Ph.D. [address] [place] [phone] 08/19/2023 9:00 AM TEXTILE SLITTING MACHINE OPERATOR Appointment Department of Radiology, [facility] in [place], [place] [address] [place] [phone] Pérez Zuniga M.D., Ph.D. [address] [place] [phone] 08/19/2023 3:40 PM TEXTILE SLITTING MACHINE OPERATOR Office Visit Department of Oncology in [place], [place] [address] [place] [phone] Zhane Granados, DISTRICT CLAIMS MANAGER, C.N.P. [address] [place] [phone] 08/21/2023 10:15 AM TEXTILE SLITTING MACHINE OPERATOR Clinical Support Department of Palliative Care in [place], [place] [address] [place] [phone] Serenity Kelsey, P.A.-C. 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 Large intensely hypermetabolic mixed solid and [...] of the report. Narrative 06/10/2023 10:24 AM TEXTILE SLITTING MACHINE OPERATOR EXAM: ??INTERPRETATION OF OUTSIDE NM PET SCAN [...] of the report. Pérez Zuniga M.D., Ph.D. 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
--- OUTSIDE RECORDS SUMMARY | 2023-08-08 18:06 | XMS_ITS | Encounter Summary ---
Author Name Unknown Organization [facility] Address [address] [place] [address] Care Team Providers Care Overlock Hemmer Name Role Phone Unavailable Primary Care Provider Unavailabl e Encounter Details Date Type Department Care Team (Late st Contact Info) Description 05/30/2023 1:00 PM ELECTRIFIER OPERATOR Lab RST RO LMP [address] [place] [phone] Naida Mejia P.A.-Harsha., M.S. [address] [place] [phone] Melanoma Trunk (HCC); Secondary Malignant Neoplasm Bone [...] Sex Assigned at Female 05/31/2023 8:26 AM ELECTRIFIER OPERATOR Gender Identity Female 05/31/2023 8:26 AM ELECTRIFIER OPERATOR Sexual Orientation Straight 05/31/2023 8: 26 AM ELECTRIFIER OPERATOR documented as of this encounter Plan of Treatment Upcoming Encounters Date Type Department Care Team (Late st Contact Info) Description 08/19/2023 6:40 AM ELECTRIFIER OPERATOR Appointment Department of Laboratory Medicine and Pathology, [facility] in [place], [place] [address] [place] [phone] Pérez Zuniga M.D., Ph.D. [address] [place] [phone] 08/19/2023 7:00 AM ELECTRIFIER OPERATOR Ancillary Procedure Department of Cardiovascular Medicine in [place], [place] [address] [place] [phone] Pérez Zuniga M.D., Ph.D. [address] [place] [phone] 08/19/2023 9:00 AM ELECTRIFIER OPERATOR Appointment Department of Radiology, [facility] in [place], [place] [address] [place] [phone] Pérez Zuniga M.D., Ph.D. [address] [place] [phone] 08/19/2023 3:40 PM ELECTRIFIER OPERATOR Office Visit Department of Oncology in [address] [phone] Zhane Granados APRN, C.N.P. [address] [place] [phone] 08/21/2023 10:15 AM ELECTRIFIER OPERATOR Clinical Support Department of Palliative Care in [address] [phone] Serenity Kelsey, P.A.-C. 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 I verify that I have examined all relevant slides/materials for the specimen(s) and rendered or confirmed the diagnosis. 06/10/2023 3:51 PM ELECTRIFIER OPERATOR DTL Material Received A. [id number]: Left femur ? 22 stained slides, 20 unstained slides 06/10/2023 3:51 PM ELECTRIFIER OPERATOR DTL Addendum Genetic testing for BRAF/KIT Mutation Analysis, Tumor (BRFKT) ??will be performed and resulted in the patient's medical record. Signed by Cl Edwards M.D. 06/14/2023 10:19 AM 06/14/2023 10:19 AM ELECTRIFIER OPERATOR DTL Comment:REVISED RESULTS Interpretation FINAL DIAGNOSIS Left femur mass, biopsy ([id number]; 05/13/2023): Metastatic melanoma, diffusely positive for BRAF [...] not hesitate to reach me by calling [facility] [employer] at [phone]. 06/14/2023 10:19 AM ELECTRIFIER OPERATOR DTL Varies 05/13/2023 1:26 AM CDT 06/05/2023 7:18 PM ELECTRIFIER OPERATOR Naida Mejia P.A.-C. M.S. 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
--- OUTSIDE RECORDS SUMMARY | 2023-08-08 18:06 | XMS_ITS | Encounter Summary ---
Author Name Unknown Organization [facility] Address [address] [place] [address] Care Team Providers Care Roads Supervisor Name Role Phone Unavailable Primary Care Provider Unavailabl e Encounter Details Date Type Department Care Team (Late st Contact Info) Description 05/29/2023 2:15 PM LICSW Admin Visit Department of Oncology in [place], [place] [address] [place] [phone] Social History Tobacco Use Types Packs/Day Years Used Date Smoking Tobacco: Never Assessed Nutrition Answer Date Recorded Nutrition: EVOO Fat Source Unknown 05/06 Nutrition: Servings of Fruits/Vegetables per Day Not on file 05/06/2023 Dental Answer Date Recorded Dental: Regular Dentist Unknown 05/06/20 Sex and Gender Information Value Date Recorded Sex Assigned at Female 05/31/2023 8:26 AM LICSW Gender Identity Female 05/31/2023 8:26 AM LICSW Sexual Orientation Straight 05/31/2023 8: 26 AM LICSW documented as of this encounter Plan of Treatment Upcoming Encounters Date Type Department Care Team (Late Contact Info) Description 08/19/2023 6:40 AM LICSW Appointment Department of Laboratory Medicine and Pathology, [facility], in [place], [place] [address] [place] [phone] Pérez Zuniga M.D., Ph.D. [address] [place] [phone] 08/19/2023 7:00 AM LICSW Ancillary Procedure Department of Cardiovascular Medicine in [place], [place] [address] [place] [address] Pérez Zuniga M.D., Ph.D. [address] [place] [phone] 08/19/2023 9:00 AM LICSW Appointment Department of Radiology, [facility] in [place], [place] [address] [place] [address] Pérez Zuniga M.D., Ph.D. [address] [place] [phone] 08/19/2023 3:40 PM LICSW Office Visit Department of Oncology in [place], [place] [address] [place] [address] Zhane Granados, SPECIAL EFFECTS ARTIST, C.N.P. [address] [place] [phone] 08/21/2023 10:15 AM LICSW Clinical Support Department of Palliative Care in [place], [place] [address] [place] [address] Serenity Kelsey, P.A.-C. [address] [place] [phone] Meka Rinaldi D.N.P., R.N., [facility] documented as of this encounter Visit Diagnoses Not on filedocumented in this encounter
--- OUTSIDE RECORDS SUMMARY | 2023-08-08 18:06 | XMS_ITS | Encounter Summary ---
Author Name Unknown Organization [facility] Address [address] [place] [address] Care Team Providers Care Trials Manager Name Role Phone Elsewhere, Pcp Primary Care Provider Unavailabl e Reason for Visit * Reason Onset Date Comments OSM 05/23/2023 Med Onc Encounter Details Date Type Department Care Team (Late st Contact Info) Description 05/23/2023 Clinical Communication Department of Oncology in [place], [place] [address] [place] [phone] Provider, Unknown OSM (Med Onc) Social History Tobacco Use Types Packs/Day Years Used Date Smoking Tobacco: Never Assessed Nutrition Answer Date Recorded Nutrition: EVOO Fat Source Unknown 05/06 Nutrition: Servings of Fruits/Vegetables per Day Not on file 05/06/2023 Dental Answer Date Recorded Dental: Regular Dentist Unknown 05/06/20 Sex and Gender Information Value Date Recorded Sex Assigned at Female 05/31/2023 8:26 AM A&P MECHANIC Gender Identity Female 05/31/2023 8:26 AM A&P MECHANIC Sexual Orientation Straight 05/31/2023 8: 26 AM A&P MECHANIC documented as of this encounter Plan of Treatment Upcoming Encounters Date Type Department Care Team (Late st Contact Info) Description 08/19/2023 6:40 AM A&P MECHANIC Appointment Department of Laboratory Medicine and Pathology, [facility], in [place], [place] [address] [place] [address] Pérez Zuniga M.D., Ph.D. [address] [place] [phone] 08/19/2023 7:00 AM A&P MECHANIC Ancillary Procedure Department of Cardiovascular Medicine in [place], [place] [address] [place] [phone] Pérez Zuniga M.D., Ph.D. [address] [place] [phone] 08/19/2023 9:00 AM A&P MECHANIC Appointment Department of Radiology, [facility], in [address] [phone] Pérez Zuniga M.D., Ph.D. [address] [place] [phone] 08/19/2023 3:40 PM A&P MECHANIC Office Visit Department of Oncology in [address] [phone] Zhane Granados, SERVICE UNIT OPERATOR, C.N.P. [address] [place] [phone] 08/21/2023 10:15 AM A&P MECHANIC Clinical Support Department of Palliative Care in [address] [phone] Serenity Kelsey, P.A.-C. [address] [place] [phone] Meka Rinaldi D.N.P., R.N., [facility] documented as of this encounter Visit Diagnoses Not on filedocumented in this encounter Additional Health Concerns Infection Onset Date Last Indicated Resolved Time Protective Environment 06/04/2023 06/04/2023 documented as of this encounter Care Teams Trials Manager Relationship Specialty Start Date End Date Elsewhere, Pcp PCP - General Family Medicine 06/17/23 documented as of this encounter
--- OUTSIDE RECORDS SUMMARY | 2023-08-08 18:06 | XMS_ITS | Encounter Summary ---
Author Name Unknown Organization [facility] Address [address] [place] [address] Care Team Providers Care House Registry Rn Name Role Phone Elsewhere, Pcp Primary Care Provider Unavailabl e Reason for Visit * Reason Onset Date Comments Pre-visit Testing Orders 05/29/2023 Encounter Details Date Type Department Care Team (Latest Contact Info) Description 05/29/2023 Clinical Communication Department of Oncology in [place], [place] [address] [place] [phone] aNida Mejia P.A.-C., M.S. [address] [place] [phone] Pre-visit Testing Orders Social History Tobacco Use Types Packs/Day Years Used Date Smoking Tobacco: Never Assessed Nutrition Answer Date Recorded Nutrition: EVOO Fat Source Unknown 05/06 Nutrition: Servings of Fruits/Vegetables per Day Not on file 05/06/2023 Dental Answer Date Recorded Dental: Regular Dentist Unknown 05/06/20 Sex and Gender Information Value Date Recorded Sex Assigned at Female 05/31/2023 8:26 AM REWORK OPERATOR Gender Identity Female 05/31/2023 8:26 AM REWORK OPERATOR Sexual Orientation Straight 05/31/2023 8: 26 AM REWORK OPERATOR documented as of this encounter Plan of Treatment Upcoming Encounters Date Type Department Care Team (Late st Contact Info) Description 08/19/2023 6:40 AM REWORK OPERATOR Appointment Department of Laboratory Medicine and Pathology, [facility] in [place], [place] [address] [place] [phone] Pérez Zuniga M.D., Ph.D. [address] [place] [phone] 08/19/2023 7:00 AM REWORK OPERATOR Ancillary Procedure Department of Cardiovascular Medicine in [place], [place] [address] [place] [phone] Pérez Zuniga M.D., Ph.D. [address] [place] [phone] 08/19/2023 9:00 AM REWORK OPERATOR Appointment Department of Radiology, [facility] in [place], [place] [address] [place] [phone] Pérez Zuniga M.D., Ph.D. [address] [place] [phone] 08/19/2023 3:40 PM REWORK OPERATOR Office Visit Department of Oncology in [place], [place] [address] [place] [phone] Zhane Granados, PIE CRIMPING MACHINE OPERATOR, C.N.P. [address] [place] [phone] 08/21/2023 10:15 AM REWORK OPERATOR Clinical Support Department of Palliative Care in [place], [place] [address] [place] [phone] Serenity Kelsey, P.A.-C. [address] [place] [phone] Meka Rinaldi D.N.P., R.N., [facility] documented as of this encounter Results * Pathology Review of Outside Material (05/13/2023 1:26 AM CDT) 06/10/2023 3:51 PM REWORK OPERATOR DTL Participated in the Interpretation Yann Dixon M.D.-Pathology Fellow 06/10/2023 3:51 PM REWORK OPERATOR DTL Report electronically signed by Jose Willis M.D. I verify that I have examined all relevant slides/materials for the specimen(s) and rendered or confirmed the diagnosis. 06/10/2023 3:51 PM REWORK OPERATOR DTL Material Received A. [id number]: Left femur ? 22 stained slides, 20 unstained slides 06/10/2023 3:51 PM REWORK OPERATOR DTL Addendum Genetic testing for BRAF/KIT Mutation Analysis, Tumor (BRFKT) ??will be performed and resulted in the patient's medical record. Signed by Cl Edwards M.D. 06/14/2023 10:19 AM 06/14/2023 10:19 AM REWORK OPERATOR DTL Comment:REVISED RESULTS Interpretation FINAL DIAGNOSIS Left femur mass, biopsy ([id number]; 05/13/2023): Metastatic melanoma, diffusely positive for BRAF [...] not hesitate to reach me by calling [facility] [employer] at [phone]. 06/14/2023 10:19 AM REWORK OPERATOR DTL Varies 05/13/2023 1:26 AM CDT 06/05/2023 7:18 PM REWORK OPERATOR Naida Mejia P.A.-C. MSantoshS. 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
--- OUTSIDE RECORDS SUMMARY | 2023-08-08 18:06 | XMS_ITS | Encounter Summary ---
Author Name Unknown Organization [facility] Address [address] [place] [address] Care Team Providers Care Lining Layer Name Role Phone Unavailable Primary Care Provider Unavailabl e Encounter Details Date Type Department Care Team (Latest Contact Info) Description 05/29/2023 5:21 PM INTERNATIONAL RECRUITER - 05/29/2023 5:49 PM INTERNATIONAL RECRUITER Hospital Encounter Department of Laboratory Medicine and Pathology, [facility], in [place], [place] [address] [place] [address] Naida Mejia P.A.-C., M.S. [address] [place] [address] Melanoma Trunk (HCC); Secondary Malignant Neoplasm Bone [...] Sex Assigned at Female 05/31/2023 8:26 AM INTERNATIONAL RECRUITER Gender Identity Female 05/31/2023 8:26 AM INTERNATIONAL RECRUITER Sexual Orientation Straight 05/31/2023 8: 26 AM INTERNATIONAL RECRUITER documented as of this encounter Medications at [...] for nausea or vomiting. 0 05/08/2023 06/17/2023 oxyCODONE (ROXICODONE) 10 mg IR tablet Take 10 mg by mouth every 6 (six) hours as needed for pain. 0 05/24/2023 06/17/2023 documented as of this encounter Plan of Treatment Upcoming Encounters Date Type Department Care Team (Late st Contact Info) Description 08/19/2023 6:40 AM INTERNATIONAL RECRUITER Appointment Department of Laboratory Medicine and Pathology, [place], [place] [address] [place] [phone] Pérez Zuniga M.D., Ph.D. [address] [place] [phone] 08/19/2023 7:00 AM INTERNATIONAL RECRUITER Ancillary Procedure Department of Cardiovascular Medicine in [place], [place] [address] [place] [phone] Pérez Zuniga M.D., Ph.D. [address] [place] [phone] 08/19/2023 9:00 AM INTERNATIONAL RECRUITER Appointment Department of Radiology, [facility] in [place], [place] [address] [place] [phone] Pérez Zuniga M.D., Ph.D. [address] [place] [phone] 08/19/2023 3:40 PM INTERNATIONAL RECRUITER Office Visit Department of Oncology in [place], [place] [address] [place] [phone] Zhane Granados, GAIL, C.N.P. [address] [place] [phone] 08/21/2023 10:15 AM INTERNATIONAL RECRUITER Clinical Support Department of Palliative Care in [place], [place] [address] [place] [phone] Serenity Kelsey P.A.-Harsha. 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A.-C., M.S. LAB BLOO D ADD-ON [facility] [address] [facility] 200 [place] [address] * Thyroperoxidase (TPO) Antibodies (05/29/2023 5:35 PM INTERNATIONAL RECRUITER) Thyroperoxidase Ab, S 15.1 <34.0 IU/mL 05/29/2023 7:06 PM INTERNATIONAL RECRUITER DTL Blood 05/29/2023 5:35 PM INTERNATIONAL RECRUITER 05/29/2023 6:09 PM INTERNATIONAL RECRUITER Naida Mejia P.A.-C., M.S. LAB BLOO D ADD-ON Performing Organization Address City/[facility]/ZIP Co de Phone Number [facility] [address] [place] [address], [facility] [address] [place] [address] * (ABNORMAL) Thyroid Function [place]upe (05/29/2023 5:35 PM INTERNATIONAL RECRUITER) TSH, Sensitive 4.7(H) 0.3 - 4.2 mIU/L 05/29/2023 6:46 PM INTERNATIONAL RECRUITER DTL Blood (Blood, Venous) 05/29/2023 5:35 PM INTERNATIONAL RECRUITER 05/29/2023 6:09 PM INTERNATIONAL RECRUITER Naida Mejia P.A.-C., M.S. LAB BLOO D ADD-ON [facility] [address] [place] [address], [facility] 200 [place] [address] * (ABNORMAL) LD (Lactate Dehydrogenase) (05/29/2023 5:35 PM INTERNATIONAL RECRUITER) Lactate Dehydrogenase (LD), S 439(H) 122 - 222 U/L 05/29/2023 6:46 PM INTERNATIONAL RECRUITER DTL Blood (Blood, Venous) 05/29/2023 5:35 PM INTERNATIONAL RECRUITER 05/29/2023 6:09 PM INTERNATIONAL RECRUITER Naida Mejia P.A.-C. MSantoshSSantosh LAB BLOO D NON ADD-ON [facility] 200 [place] [address], [facility] [address] [address] * (ABNORMAL) Comprehensive Metabolic Panel (05/29/2023 5:35 PM INTERNATIONAL RECRUITER) Pathologist [facility] Potassium, S 3.7 3.6 - 5.2 mmol/L 05/29/2023 6:46 PM INTERNATIONAL RECRUITER DTL Sodium, S 134(L) 135 - 145 mmol/L 05/29/2023 6:46 PM INTERNATIONAL RECRUITER DTL Chloride, S 97(L) 98 - 107 mmol/L 05/29/2023 6:46 PM INTERNATIONAL RECRUITER DTL Bicarbonate, S 20(L) 22 - 29 mmol/L 05/29/2023 6:46 PM INTERNATIONAL RECRUITER DTL Anion Gap 17(H) 7 - 15 05/29/2023 6:46 PM INTERNATIONAL RECRUITER DTL BUN (Blood Urea Nitrogen), S 28(H) 6 - 21 mg/dL 05/29/2023 6:46 PM INTERNATIONAL RECRUITER DTL Creatinine 1.56(H) 0.59 - 1.04 mg/dL 05/29/2023 6:46 PM INTERNATIONAL RECRUITER DTL Estimated GFR (eGFR) 42(L) >=60 mL/min/BS A 05/29/2023 6:46 PM INTERNATIONAL RECRUITER DTL Comment: Estimated GFR calculated using the 2020 CKD_EPI creatinine equation. Calcium, Total, S 9.0 8.6 - 10.0 mg/dL 05/29/2023 6:46 PM INTERNATIONAL RECRUITER DTL Glucose, S 137 70 - 140 mg/dL 05/29/2023 6:46 PM INTERNATIONAL RECRUITER DTL Protein, Total, S 6.7 6.3 - 7.9 g/dL 05/29/2023 6:46 PM INTERNATIONAL RECRUITER DTL Albumin, S 3.4(L) 3.5 - 5.0 g/dL 05/29/2023 6:46 PM INTERNATIONAL RECRUITER DTL Aspartate Aminotransferase (AST), S 21 8 - 43 U/L 05/29/2023 6:46 PM INTERNATIONAL RECRUITER DTL Alkaline Phosphatase, S 132(H) 35 - 104 U/L 05/29/2023 6:46 PM INTERNATIONAL RECRUITER DTL Alanine Aminotransferase (ALT), S 9 7 - 45 U/L 05/29/2023 7:14 PM INTERNATIONAL RECRUITER DTL Bilirubin, Total, S 0.3 0.0 - 1.2 mg/dL 05/29/2023 6:46 PM INTERNATIONAL RECRUITER DTL Blood (Blood, Venous) 05/29/2023 5:35 PM INTERNATIONAL RECRUITER 05/29/2023 6:09 PM INTERNATIONAL RECRUITER Naida Mejia P.A.-C. M.S. LAB BLOO D ADD-ON [address] [address], [facility] [address] [address] * (ABNORMAL) CBC with Differential, Blood (05/29/2023 5:35 PM INTERNATIONAL RECRUITER) Hemoglobin 7.6(L) 11.6 - 15.0 g/dL 05/29/2023 6:02 PM INTERNATIONAL RECRUITER DTL Hematocrit 22.9(L) 35.5 - 44.9 % 05/29/2023 6:02 PM INTERNATIONAL RECRUITER DTL Erythrocytes 2.46(L) 3.92 - 5.13 x10(12)/L 05/29/2023 6:02 PM INTERNATIONAL RECRUITER DTL MCV 93.1 78.2 - 97.9 fL 05/29/2023 6:02 PM INTERNATIONAL RECRUITER DTL RBC Distrib Width 15.1 12.2 - 16.1 % 05/29/2023 6:02 PM INTERNATIONAL RECRUITER DTL Platelet Count 464(H) 157 - 371 x10(9)/L 05/29/2023 6:02 PM INTERNATIONAL RECRUITER DTL Leukocytes 14.9(H) 3.4 - 9.6 x10(9)/L 05/29/2023 6:02 PM INTERNATIONAL RECRUITER DTL Neutrophils 12.04(H) 1.56 - 6.45 x10(9)/L 05/29/2023 6:02 PM INTERNATIONAL RECRUITER DHPM Lymphocytes 1.39 0.95 - 3.07 x10(9)/L 05/29/2023 6:02 PM INTERNATIONAL RECRUITER DTL Monocytes 1.32(H) 0.26 - 0.81 x10(9)/L 05/29/2023 6:02 PM INTERNATIONAL RECRUITER DTL Eosinophils 0.11 0.03 - 0.48 x10(9)/L 05/29/2023 6:02 PM INTERNATIONAL RECRUITER DTL Basophils 0.05 0.01 - 0.08 x10(9)/L 05/29/2023 6:02 PM INTERNATIONAL RECRUITER DTL Blood (Blood, Venous) 05/29/2023 5:35 PM INTERNATIONAL RECRUITER 05/29/2023 5:52 PM INTERNATIONAL RECRUITER Naida Mejia P.A.-C., M.S. LAB BLOO D ADD-ON [facility] [address] [place] [address], [facility] DTL [facility] [address] [place] [address] DHPM [facility] [address] [place] [address] documented in this encounter Visit Diagnoses Diagnosis 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) documented in this encounter
--- OUTSIDE RECORDS SUMMARY | 2023-08-08 18:06 | XMS_ITS | Encounter Summary ---
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 [address] [place] [address] [facility] Referral ID Status Reason Start Date Expiration Date Visits Re quested Visits Authorized [id number] Closed 05/22/2023 05/21/2024 1 1 Scheduling Instructions Please coordinate with medical oncology visits, as able. 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 [address] [place] [address] [facility] Referral ID Status Reason Start Date Expiration Date Visits Re quested Visits Authorized [id number] Closed 05/22/2023 05/21/2024 1 1 EKEEPER NANNY Encounter Details Date Type Department Care Team (Late st Contact Info) Description 05/22/2023 Clinical Communication Department of Oncology in [place], [place] [address] [place] [phone] Naida Mejia P.A.-C., M.S. [address] [place] [address] Social History Tobacco Use Types Packs/Day Years Used Date Smoking Tobacco: Never Assessed Nutrition Answer Date Recorded Nutrition: EVOO Fat Source Unknown 05/06 Nutrition: Servings of Fruits/Vegetables per Day Not on file 05/06/2023 Dental Answer Date Recorded Dental: Regular Dentist Unknown 05/06/20 Sex and Gender Information Value Date Recorded Sex Assigned at Female 05/31/2023 8:26 AM HOUSEKEEPER NANNY Gender Identity Female 05/31/2023 8:26 AM HOUSEKEEPER NANNY Sexual Orientation Straight 05/31/2023 8: 26 AM HOUSEKEEPER NANNY documented as of this encounter Miscellaneous Notes * Telephone Encounter - Naida Mejia P.A.-C., M.S. - 05/22/2023 10:16 PM CST Patient is a 47 y.o. 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 Bx most consistent with metastatic melanoma. Orders placed: CBC with Differential CMP LD Thyroid Function BRAF/KIT if IHC negative Brain MRI Internal Review of External Pathology Dermatology for full skin exam EKEEPER NANNY documented in this encounter Plan of Treatment Upcoming Encounters Date Type Department Care Team (Late st Contact Info) Description 08/19/2023 6:40 AM HOUSEKEEPER NANNY Appointment Department of Laboratory Medicine and Pathology, [facility], in [place], [place] [address] [place] [address] Pérez Zuniga M.D., Ph.D. [address] [place] [phone] 08/19/2023 7:00 AM HOUSEKEEPER NANNY Ancillary Procedure Department of Cardiovascular Medicine in [place], [place] [address] [place] [phone] Pérez Zuniga M.D., Ph.D. [address] [place] [phone] 08/19/2023 9:00 AM HOUSEKEEPER NANNY Appointment Department of Radiology, [facility], in [place], [place] [address] [place] [phone] Pérez Zuniga M.D., Ph.D. [address] [place] [phone] 08/19/2023 3:40 PM HOUSEKEEPER NANNY Office Visit Department of Oncology in [place], [place] [address] [place] [phone] Zhane Granados, PHYSICIAN/ALLERGY/IMMUNOLOGY, C.N.P. [address] [place] [phone] 08/21/2023 10:15 AM HOUSEKEEPER NANNY Clinical Support Department of Palliative Care in [place], [place] [address] [place] [phone] Serenity Kelsey, P.A.-C. 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 No significant associated mass effect or hydrocephalus. Narrative 05/30/2023 10:38 AM HOUSEKEEPER NANNY EXAM: MR BRAIN WITHOUT AND WITH IV [...] anomaly. Procedure Note Antonio Wood M.D., [facility] [place] - 05/30/2023 EXAM: [...] mass effect or hydrocephalus. Naida Mejia P.A.-C. MSantoshS. IMG MRI PROCEDURES * (ABNORMAL) Thyroid Function [place] (05/29/2023 5:35 PM HOUSEKEEPER NANNY) TSH, Sensitive 4.7(H) 0.3 - 4.2 mIU/L 05/29/2023 6:46 PM HOUSEKEEPER NANNY DTL Blood (Blood, Venous) 05/29/2023 5:35 PM HOUSEKEEPER NANNY 05/29/2023 6:09 PM HOUSEKEEPER NANNY Naida Mejia P.A.-C., M.S. LAB BLOO D ADD-ON Performing Organization Address City/[facility]/ZIP Co de Phone Number [facility] [address] [facility] 200 [place] [address] * (ABNORMAL) LD (Lactate Dehydrogenase) (05/29/2023 5:35 PM HOUSEKEEPER NANNY) Lactate Dehydrogenase (LD), S 439(H) 122 - 222 U/L 05/29/2023 6:46 PM HOUSEKEEPER NANNY DTL Blood (Blood, Venous) 05/29/2023 5:35 PM HOUSEKEEPER NANNY 05/29/2023 6:09 PM HOUSEKEEPER NANNY Naida Mejia P.A.-C., M.S. LAB BLOO D NON ADD-ON [facility] 200 [place] [address] * (ABNORMAL) Comprehensive Metabolic Panel (05/29/2023 5:35 PM HOUSEKEEPER NANNY) Potassium, S 3.7 3.6 - 5.2 mmol/L 05/29/2023 6:46 PM HOUSEKEEPER NANNY DTL Sodium, S 134(L) 135 - 145 mmol/L 05/29/2023 6:46 PM HOUSEKEEPER NANNY DTL Chloride, S 97(L) 98 - 107 mmol/L 05/29/2023 6:46 PM HOUSEKEEPER NANNY DTL Bicarbonate, S 20(L) 22 - 29 mmol/L 05/29/2023 6:46 PM HOUSEKEEPER NANNY DTL Anion Gap 17(H) 7 - 15 05/29/2023 6:46 PM HOUSEKEEPER NANNY DTL BUN (Blood Urea Nitrogen), S 28(H) 6 - 21 mg/dL 05/29/2023 6:46 PM HOUSEKEEPER NANNY DTL Creatinine 1.56(H) 0.59 - 1.04 mg/dL 05/29/2023 6:46 PM HOUSEKEEPER NANNY DTL Estimated GFR (eGFR) 42(L) >=60 mL/min/BS A 05/29/2023 6:46 PM HOUSEKEEPER NANNY DTL Comment: Estimated GFR calculated using the 2020 CKD_EPI creatinine equation. Calcium, Total, S 9.0 8.6 - 10.0 mg/dL 05/29/2023 6:46 PM HOUSEKEEPER NANNY DTL Glucose, S 137 70 - 140 mg/dL 05/29/2023 6:46 PM HOUSEKEEPER NANNY DTL Protein, Total, S 6.7 6.3 - 7.9 g/dL 05/29/2023 6:46 PM HOUSEKEEPER NANNY DTL Albumin, S 3.4(L) 3.5 - 5.0 g/dL 05/29/2023 6:46 PM HOUSEKEEPER NANNY DTL Aspartate Aminotransferase (AST), S 21 8 - 43 U/L 05/29/2023 6:46 PM HOUSEKEEPER NANNY DTL Alkaline Phosphatase, S 132(H) 35 - 104 U/L 05/29/2023 6:46 PM HOUSEKEEPER NANNY DTL Alanine Aminotransferase (ALT), S 9 7 - 45 U/L 05/29/2023 7:14 PM HOUSEKEEPER NANNY DTL Bilirubin, Total, S 0.3 0.0 - 1.2 mg/dL 05/29/2023 6:46 PM HOUSEKEEPER NANNY DTL Blood (Blood, Venous) 05/29/2023 5:35 PM HOUSEKEEPER NANNY 05/29/2023 6:09 PM HOUSEKEEPER NANNY Naida Mejia P.A.-C.Rajinder LAB BLOO D ADD-ON [facility] [address] [place] [address], [facility] DTL [facility] [address] [place] [address] * (ABNORMAL) CBC with Differential, Blood (05/29/2023 5:35 PM HOUSEKEEPER NANNY) Hemoglobin 7.6(L) 11.6 - 15.0 g/dL 05/29/2023 6:02 PM HOUSEKEEPER NANNY DTL Hematocrit 22.9(L) 35.5 - 44.9 % 05/29/2023 6:02 PM HOUSEKEEPER NANNY DTL Erythrocytes 2.46(L) 3.92 - 5.13 x10(12)/L 05/29/2023 6:02 PM HOUSEKEEPER NANNY DTL MCV 93.1 78.2 - 97.9 fL 05/29/2023 6:02 PM HOUSEKEEPER NANNY DTL RBC Distrib Width 15.1 12.2 - 16.1 % 05/29/2023 6:02 PM HOUSEKEEPER NANNY DTL Platelet Count 464(H) 157 - 371 x10(9)/L 05/29/2023 6:02 PM HOUSEKEEPER NANNY DTL Leukocytes 14.9(H) 3.4 - 9.6 x10(9)/L 05/29/2023 6:02 PM HOUSEKEEPER NANNY DTL Neutrophils 12.04(H) 1.56 - 6.45 x10(9)/L 05/29/2023 6:02 PM HOUSEKEEPER NANNY DHPM Lymphocytes 1.39 0.95 - 3.07 x10(9)/L 05/29/2023 6:02 PM HOUSEKEEPER NANNY DTL Monocytes 1.32(H) 0.26 - 0.81 x10(9)/L 05/29/2023 6:02 PM HOUSEKEEPER NANNY DTL Eosinophils 0.11 0.03 - 0.48 x10(9)/L 05/29/2023 6:02 PM HOUSEKEEPER NANNY DTL Basophils 0.05 0.01 - 0.08 x10(9)/L 05/29/2023 6:02 PM HOUSEKEEPER NANNY DTL Blood (Blood, Venous) 05/29/2023 5:35 PM HOUSEKEEPER NANNY 05/29/2023 5:52 PM HOUSEKEEPER NANNY Naida Banegas Roberto Altman M.S. LAB BLOO D ADD-ON [facility] [address] [place] [address], [facility] DTL [facility] [address] [place] [address] DHPM [facility] [address] [place] [address] * BRAF/KIT Mutation Analysis, Next-Generation Sequencing, Tumor (05/13/2023 8:27 AM CDT) Result Provided diagnosis: metastatic melanoma involving left femur The following CLINICALLY RELEVANT VARIANT was detected: Gene: BRAF DNA Change: c.1799T>A (Exon 15) Amino Acid Change: p.V600E (Cps792Gwa) Variant Allele Frequency: 49.9% No other reportable sequence variants were detected within the analyzed regions of the tested genes listed in the method description. 06/24/2023 1:13 PM HOUSEKEEPER NANNY DTL Additional Information CLINICAL TRIALS Possible clinical trials of benefit for this patient can be found at the following sites: 1) ClinicalTrials.gov: www.clinicaltrials. gov/ct2/search/adva nced 2) [facility]: www.[facility]/resear ch/clinical-trials/ 3) [employer] [place]: www.cancer.gov/clin icaltrials/search REFERENCE TRANSCRIPT Sequence variant nomenclature is based on the following RefSeq accession number (build GRCh37 (hg19)):BRAF [id number]. 06/24/2023 1:13 PM HOUSEKEEPER NANNY DTL Specimen Tissue, Tumor 06/24/2023 1:13 PM HOUSEKEEPER NANNY DTL Tissue ID [id number] 06/24/2023 1:13 PM HOUSEKEEPER NANNY DTL Method Microscopic examination is performed by [...] and additional information on this test, see [email or web address]. [employer] (Test ID BRFKT). 06/24/2023 1:13 PM HOUSEKEEPER NANNY DTL Disclaimer This test cannot differentiate between [...] of heterozygosity) and sequencing artifact/misalignme nt [PMID: 72138707, PMID: 21121480]. Rare polymorphisms may be present that could [...] developed and its performance characteristics determined by [facility] in a manner consistent with CLIA requirements. This test has not been cleared or approved by the U.S. Food and Drug Administration. 06/24/2023 1:13 PM HOUSEKEEPER NANNY DTL Released By Lexy Lang M.D. 06/24/2023 1:13 PM HOUSEKEEPER NANNY DTL Interpretation BRAF c.1799T>A (p.V600E) (Exon 15) BRAF encodes the signaling protein Braf, which is downstream of Eduardo and activates the MAPK pathway. Braf signaling is critically involved in the processes of cell division and differentiation. BRAF activating mutations occur predominantly at a single location (V600E). BRAF activating mutations or amplification have been reported to result in uncontrolled cell growth and tumorigenesis [PMID:83773807, PMID:23935611]. Clinically approved targeted therapy is available for patients with unresectable or metastatic solid tumors with a BRAF V600E mutation [fda.gov/drugs]. 06/24/2023 1:13 PM HOUSEKEEPER NANNY DTL Tissue (Bone) 05/13/2023 8:2 7 AM CDT 06/16/2023 1:57 PM HOUSEKEEPER NANNY Naida Mejia P.A.-C., M.S. 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
--- OUTSIDE RECORDS SUMMARY | 2023-08-08 18:06 | XMS_ITS | Encounter Summary ---
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 [address] [place] [phone] [facility] Referral ID Status Reason Start Date Expiration Date Visits Re quested Visits Authorized [id number] Closed 05/22/2023 05/21/2024 1 1 Encounter Details Date Type Department Care Team (Latest Contact Info) Description 05/29/2023 5:50 PM BOX FEEDER - 05/29/2023 11:59 PM BOX FEEDER Hospital Encounter Department of Radiology, [facility] in [place], [place] [address] [place] [address] Naida Mejia P.A.-C., M.S. [address] [place] [address] Melanoma Trunk (HCC); Secondary Malignant Neoplasm Bone [...] Sex Assigned at Female 05/31/2023 8:26 AM BOX FEEDER Gender Identity Female 05/31/2023 8:26 AM BOX FEEDER Sexual Orientation Straight 05/31/2023 8: 26 AM BOX FEEDER documented as of this encounter Last Filed Vital Signs Vital Sign Reading Time Taken Comments Blood Pressure - - Pulse - - Temperature - - Respiratory Rate - - Oxygen Saturation - - Inhaled Oxygen Concentration - - Weight - - Height 157.5 cm (5' 2) 05/29/2023 6:22 PM BOX FEEDER Body Mass Index - - documented in this encounter Medications at Time of Discharge [...] st Contact Info) Description 08/19/2023 6:40 AM BOX FEEDER Appointment Department of Laboratory Medicine and Pathology, [facility] in [address] [phone] Pérez Zuniga M.D., Ph.D. [address] [place] [phone] 08/19/2023 7:00 AM BOX FEEDER Ancillary Procedure Department of Cardiovascular Medicine in [address] [phone] Pérez Zuniga M.D., Ph.D. [address] [place] [phone] 08/19/2023 9:00 AM BOX FEEDER Appointment Department of Radiology, [facility] in [address] [phone] Pérez Zuniga M.D., Ph.D. [address] [place] [phone] 08/19/2023 3:40 PM BOX FEEDER Office Visit Department of Oncology in [address] [phone] Zhane Granados APRN, C.N.P. [address] [place] [phone] 08/21/2023 10:15 AM BOX FEEDER Clinical Support Department of Palliative Care in [address] [phone] Serenity Kelsey, P.A.-C. [address] [place] [phone] Meka Rinaldi D.N.P., R.N., 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 No significant associated mass effect or hydrocephalus. Narrative 05/30/2023 10:38 AM BOX FEEDER EXAM: MR BRAIN WITHOUT AND WITH IV [...] venous anomaly. Procedure Note Antonio Wood M.D., [facility] [place] [place] - 05/30/2023 EXAM: MR BRAIN WITHOUT AND [...] Naida Mejia P.A.-C., M.S. 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 Given 05/29/2023 7:09 PM BOX FEEDER 7.5 mL documented in this encounter
--- OUTSIDE RECORDS SUMMARY | 2023-08-08 18:07 | XMS_ITS | Clinical Summary ---
Author Name Unknown Organization [facility] Address [address] [place] [id number] Care Team Providers Care Elevator Constructor Supervisor Name Role Phone Ondina Chávez MD Primary Care Provider [phone] Max Lee MD Unavailable [phone] Igor Myers MD Unavailable Unavaila Donna Hunt RN Unavailable Unavailable Igor Myers MD Unavailable Unavaila Shiva Huff MD Unavailable [phone] Allergies No known active allergies Medications Medication Sig Dispensed Refills Start Date End Date Status lisinopril-hydrochlor othiazide (ZESTORETIC) 10-12.5 MG tablet Take 1 tablet by mouth every morning 0 01/02/2023 Active traZODone (DESYREL) 50 MG tablet Take 50 mg by mouth at bedtime 0 05/08/2023 Active ondansetron (ZOFRAN ODT) [address] 4 mg under the tongue every 8 hours as needed 0 05/08/2023 Active omeprazole 20 MG tablet Take 20 mg by mouth 0 05/08/2023 Active oxyCODONE (ROXICODONE) 5 MG tablet Take 5 mg by mouth every 6 hours as needed 0 05/08/2023 Active ibuprofen (ADVIL/MOTRIN) 200 MG tablet Take 200 mg by mouth every 4 hours as needed for pain 0 Active acetaminophen (TYLENOL) 500 MG tablet Take 500-1,000 mg by mouth every 6 hours as needed for mild pain 0 Active diazepam (VALIUM) 5 MG tabletIndications:His tory of claustrophobia Do no take until instructed by staff at appointment. 1 tablet 0 05/14/2023 Active oxyCODONE (ROXICODONE) 5 MG tabletIndications:Bon e cyst Take 1-2 tablets (5-10 mg) by mouth every 4 hours as needed for moderate to severe pain 90 tablet 0 05/31/2023 Active Active Problems Problem Noted Date Diagnosed Date Metastatic malignant melanoma 05/22/2023 Bone cyst 05/09/2023 Encounters Date Type Department Care Team Description 05/31/[address] [facility] Cancer [address] [phone] Igor Myers MD Bone cyst 05/28/[address] [facility] Cancer [address] [phone] Igor Myers MD Prior Auth - Medication (OxyContin 10mg ER -PA denied) 05/28/[address] 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 Cancer [address] [phone] Igor Myers MD Metastatic malignant melanoma (H) (Primary Dx) 05/22/[address] 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) (Primary Dx) 05/15/2023 10:12 AM CDT - 05/15/2023 11:59 PM CDT Hospital Encounter [facility] Imaging [address] [place] [phone] Rachel Sanz PA-C 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) Discharge Disposition: Home or Self Care 05/15/2023 Travel 05/14/2023 MyC Medical Advice [facility] [address] [phone] Shiva Kruger MD 05/14/2023 MyC Refill [facility]opedic [address] [phone] Shiva Kruger MD History of claustrophobia (Primary Dx) 05/14/2023 MyC Refill [facility]opedic [address] [phone] Patria Tidwell, BEATRIZ 05/14/2023 Orders Only [address] [phone] Rachel Sanz PA-C Claustrophobia (Primary Dx) 05/13/2023 12:43 PM CDT Anesthesia Event [facility] PeriOp Services [address] [place] [phone] Suleiman Sanz MD Essler, Stacia M, 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 PROFESSOR 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[employer]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 05/13/2023 11:30 AM CDT - 05/13/2023 1:10 PM CDT Surgery [facility] [address] [place] [address] [phone] Shiva Kruger MD Biopsy left distal femur 05/13/2023 8:43 AM CDT - 05/13/2023 11:59 PM CDT Hospital Encounter [facility] PACU [address] [place] [phone] Shiva Kruger MD Bone cyst (Primary Dx); 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) Discharge Disposition: Home or Self Care 05/13/2023 MyC Medical Advice [facility]opedic [address] [phone] Patria Tidwell, BEATRIZ 05/13/2023 Orders Only [facility] [address] [place] [phone] Rachel Sanz PA-C 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 Kruger) 05/10/2023 Orders Only [facility] Interventional Radiology [address] [place] [phone] Zuri Pizarro APRN ELECTRONIC CONTROLS REPAIRER SUPERVISOR Bone cyst 05/09/2023 4:45 PM CDT Lab [facility] Lab [address] 1st [place] [phone] Bone cyst; Primary hypertension 05/09/2023 3:30 PM CDT Office Visit [facility] Preoperative Assessment Center [address] [place] [phone] Lily Meyers APRN ELECTRONIC CONTROLS REPAIRER SUPERVISOR Preop examination (Primary Dx); Primary hypertension 05/09/2023 2:00 PM CDT Ancillary Procedure [facility] Orth[facility] Xray [address] [place] [phone] Rachel Sanz PA-C Bone cyst 05/09/2023 1:00 PM CDT Office Visit [facility] Orthopedic [address] [phone] Shiva Kruger MD Bone cyst (Primary Dx) 05/09/2023 Travel 05/09/2023 PRE VISIT [facility]opedic [address] [place] [phone] Shiva Kruger MD Previsit from Last 3 Months Social History Tobacco Use Types Packs/Day Years Used Date Smoking Tobacco: Never Smokeless Tobacco: Never Tobacco Cessation:Counseling Given: Not Answered Alcohol Use Standard Drinks/Week Comments Yes 0 (1 standard drink = 0.6 oz pur e alcohol) Social PHQ-2 Answer Date Recorded PHQ-2 Score 0 05/09/2023 Adolescent Education Answer Date Record ed Getting School Help Needed Not on file 05/07 Sex and Gender Information Value Date Recorded Sex Assigned at Not on file Gender Identity Not on file Sexual Orientation Not on file Last Filed Vital Signs Vital Sign Reading Time Taken Comments Blood Pressure 106/71 05/24/2023 9:36 AM SUPERVISOR [employer] Pulse 70 05/24/2023 9:36 AM SUPERVISOR [employer] Temperature 36.7 ??C (98 ??F) 05/24/2023 9:36 AM SUPERVISOR [employer] Respiratory Rate 16 05/24/2023 9:36 AM SUPERVISOR [employer] Oxygen Saturation 100% 05/24/2023 9:36 AM SUPERVISOR [employer] Inhaled Oxygen Concentration - - Weight 82.3 kg (181 lb 8 oz) 05/24/2023 9:36 AM SUPERVISOR [employer] Height 160.3 cm (5' 3.11) 05/13/2023 8:55 AM CD T Body Mass Index 32.04 05/13/2023 8:55 AM CDT Plan of Treatment Health Maintenance Due Date Last Done Comments ADVANCE CARE PLANNING 1977 ANNUAL REVIEW OF HM ORDERS 1977 CT COLONOGRAPHY 1977 FIT 1977 FLEX SIG 1977 HEPATITIS B IMMUNIZATION (1 of 3 - 3-dose series) 1977 sDNA (Cologuard) 1977 Pneumococcal Vaccine: Pediatrics (0 to 5 Years) and At-Risk Patients (6 to 64 Years) (1 of 2 - PCV) 1983 COLONOSCOPY 1987 COLORECTAL CANCER SCREENING 1987 HIV SCREENING 1992 HEPATITIS C SCREENING 1995 PAP 1998 LIPID 2022 COVID-19 Vaccine ( season) 2023 03/28/2022, 04/19/2021, 09/24/2020, Additional history exists INFLUENZA VACCINE (#1) 2023 2, 03/23/2021, 04/11/2020, Additional history exists YEARLY PREVENTIVE VISIT 03/28/2023 03/28/2022, 08/12 PHQ-2 (once per calendar year) 2023 05/09/2023, 05/09/2023 MAMMO SCREENING 10/23/2023 10/22/2022 DTAP/TDAP/TD IMMUNIZATION (4 - Td or Tdap) 04/13/2031 04/13/2021, 06/26/2010, 07/28/2003, Additional history exists HPV IMMUNIZATION Aged Out No longer e ligible based on patient's age to complete this topic IPV IMMUNIZATION Aged Out No longer e ligible based on patient's age to complete this topic MENINGITIS IMMUNIZATION Aged Out No l onger eligible based on patient's age to complete this topic RSV MONOCLONAL ANTIBODY Aged Out No l onger eligible based on patient's age to complete this topic Goals Goal Patient Goal Type Associated Problems Recent Progress Patient-Stated? Author Other General Yes Isis Hawthorne, BEATRIZ Note: Goal Statement: I will use my clinic and care team resources as directed. Date Goal set: 05/24/2023 Barriers: No barriers identified Strengths: support, coping, motivation, health awareness, and involvement with care team Date to Achieve By: ongoing Patient expressed understanding of goal: Yes Action steps to achieve this goal: I will contact triage with new, worsening or uncontrolled symptoms. I will contact triage with temperature over 100.4 I will call with difficulties of scheduling and/or transportation. I will request needed refills when there are 7 days of medication remaining. I will not send urgent or symptomatic messages through [employer]. I will contact scheduling to arrange or make changes in my appointments. Patient will contact clinic and [facility] as needed ongoing. 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) FISH Routine 05/13/2023 1:39 PM CDT AEROBIC BACTERIAL CULTURE ROUTINE Routine 05/13/2023 1:32 PM CDT FUNGAL OR YEAST CULTURE ROUTINE Routine 05/13/2023 1:32 PM CDT ANAEROBIC BACTERIAL CULTURE ROUTINE Routine 05/13/2023 1:32 PM CDT MTB COMPLEX AND RESISTANCE Routine 05/13/2023 1:32 PM CDT SURGICAL PATHOLOGY EXAM STAT 05/13/20 1:26 PM CDT ANE AIRWAY ETT PERFORMABLE Routine 05/13/2023 1:12 PM CDT BIOPSY, BONE, LOWER EXTREMITY 05/13/2023 12:42 PM CDT Bone cyst ABO/RH TYPE AND SCREEN Routine 3 4:21 PM CDT Primary hypertension PROTEIN ELECTROPHORESIS Routine 05/09/20 4:21 PM CDT Bone cyst CBC WITH PLATELETS & DIFFERENTIAL Routine 05/09/2023 4:21 PM CDT Bone cyst TYPE AND SCREEN, ADULT Routine 3 4:21 PM CDT Primary hypertension PROTEIN ELECTROPHORESIS, SERUM Routine 05/09/2023 4:21 PM CDT Bone cyst TOTAL PROTEIN, SERUM FOR ELP Routine 05/09/2023 4:21 PM CDT Bone cyst CBC WITH PLATELETS AND DIFFERENTIAL Routine 05/09/2023 4:21 PM CDT Bone cyst KAPPA AND LAMBDA LIGHT CHAIN Routine 05/09/2023 4:21 PM CDT Bone cyst ERYTHROCYTE SEDIMENTATION RATE AUTO Routine 05/09/2023 4:21 PM CDT Bone cyst CRP INFLAMMATION Routine 05/09/2023 4:21 PM CDT Bone cyst COMPREHENSIVE METABOLIC PANEL Routine 05/09/2023 4:21 PM CDT Bone cyst CASE REQUEST MODIFICATION Routine 05/09/2023 2:35 PM CDT XR CHEST 2 VIEWS Routine 05/09/2023 2:10 PM CDT Bone cyst MRI IMAGING - HIM SCAN 12:00 AM CDT from Last 3 Months Results * PET Oncology (Eyes to Thighs) (05/15/2023 12:02 PM CDT) Anatomical Region Laterality Modality Whole Body, SUBRAD CT BODY, UMP NUC MED Positron Emission Tomography (PET) Impressions 05/15/2023 2:53 PM CDT IMPRESSION: This patient with recently diagnosed metastatic carcinoma of unknown primary on femoral bone biopsy who presents for a staging exam: 1. Heterogeneous solid cystic hypermetabolic pelvic mass abutting the uterus and cecum. This is concerning for a primary tumor, possibly an adnexal mass. There is a smaller mass at the cecum which is likely a similar process. 2. Multiple lytic osseous and pulmonary metastatic lesions are throughout the axial and appendicular skeleton and in both lung davis suspicious for diffuse metastasis. No definite lymphadenopathy seen on current exam. 3. A hypermetabolic right renal cortical soft tissue nodule is indeterminate, this may represent metastatic disease versus second primary such as renal cell carcinoma. Dedicated renal protocol MRI pelvis may be helpful for further characterization. I have personally reviewed the examination and initial interpretation and I agree with the findings. JJ FLOYD, Narrative 05/15/2023 2:53 PM CDT Combined Report of: PET and CT on 05/15/2023 12:02 PM: 1. PET of the neck, chest, abdomen, and pelvis. 2. PET CT Fusion for Attenuation Correction and Anatomical Localization. 3. Diagnostic CT of the chest, abdomen and pelvis with intravenous contrast obtained for diagnostic interpretation. 4. 3D MIP and PET-CT fused images were processed on an independent workstation and archived to PACS and reviewed by a radiologist. Technique: 1. PET: The patient received 11.3 mCi of F-18-FDG. The serum glucose was 109 mg/dL prior to administration. Body weight was 80.6 kg. Images were evaluated in the axial, sagittal, and coronal planes as well as the rotational whole body MIP. Images were acquired from the cranial vertex to the feet. UPTAKE WAS MEASURED AT 60 MINUTES. BACKGROUND: Liver SUV max = 3.1, Aorta Blood SUV Max = 3.0. 2. CT: Volumetric acquisition for clinical interpretation of the chest, abdomen, and pelvis acquired at 3 mm sections. The chest, abdomen, and pelvis were evaluated at 5 mm sections in bone, soft tissue, and lung windows. Contrast and Medications: IV contrast: 108 mL of Isovue 370 intravenously. PO contrast: none. Additional Medications: None. 3. 3D MIP and PET-CT fused images were processed on an independent workstation and archived to PACS and reviewed by a radiologist. 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 ADDITIONAL INFORMATION OBTAINED FROM EMR: 47-year-old female with recently diagnosed metastatic bone carcinoma on left femoral bone biopsy having unknown primary. Staging exam. COMPARISON: None. FINDINGS: HEAD/NECK: There is no suspicious FDG uptake in the neck. The paranasal sinuses are clear. The mastoid air cells are clear. No hypermetabolic lymph nodes are demonstrated in the neck. The mucosal and deep spaces of the neck are unremarkable. The major salivary glands are unremarkable. The thyroid is unremarkable. The major vasculature of the neck are patent. CHEST: Multiple, scattered, predominantly rounded hypermetabolic soft tissue nodules of variable size in both lung davis for example: -Largest soft tissue mass in right lower lobe having SUV max of 13.8, measuring 4.0 x 3.3 cm. Series 4, image 130. -Left upper lobe with SUV max 4.9, measuring 0.8 x 0.7 cm (series 4, image 120. The central tracheobronchial tree is clear. No pleural effusion or pneumothorax. No hypermetabolic lymph nodes are demonstrated in the chest. Heart size is within normal limits. No pericardial effusion. The thoracic aorta and main pulmonary artery are within normal limits for diameter. The esophagus is unremarkable. Osseous lesions are detailed below under bones. ABDOMEN AND PELVIS: There is a large heterogeneously enhancing, hypermetabolic mass in the pelvis adjacent to the uterus, close to the cecum, and exerting mass effect over the terminal ileum and adjacent structures. This has internal hypodense, photopenic areas. It has an SUV max of 14.2 and measures approximately 12.0 x 68.5 x 8.5 cm. Series 4, image 244. There is soft tissue enhancement of the cecum with hypermetabolic uptake having SUV max of 13.7. Series 4, image 236. Several small fibroids within the uterus. A few prominent para-aortic lymph nodes with mild FDG uptake, for example right para-aortic node having SUV max of 2.7 measuring 1.3 cm. Series 4, image 190. These are favored to be reactive. The liver is unremarkable with 2 probable cysts. Apparent FDG uptake in segment 8 is likely artifactual from a right lower lobe/pleural nodule. The gallbladder is unremarkable. No intrahepatic or extrahepatic biliary ductal dilatation. The pancreas is unremarkable. No pancreatic ductal dilatation. The spleen is unremarkable. The adrenal glands are unremarkable. There is an exophytic hypermetabolic cortical lesion in the interpolar region of right kidney having SUV max of 7.3, it measures 1.4 x 1.3 cm. Series 4, image 180. Normal enhancing left kidney. No hydronephrosis on either side. The urinary bladder is unremarkable. Prominent left gonadal vein with prominent pelvic veins may be seen in pelvic congestion. Normal caliber of the small bowel. No free air, free fluid, or fluid collection. Normal caliber of the abdominal aorta. Few hypermetabolic subcutaneous nodules are seen in posterior-lateral abdominal wall for example hypermetabolic nodule with SUV max 2.7 history 0.5 cm. Series 4, image 188. These are nonspecific may represent injection granulomas. EXTREMITIES: There is no suspicious FDG uptake in the visualized ??extremities. BONES: Multiple areas of hypermetabolic lytic bone lesions, some with soft tissue competent are seen throughout the axial and proximal appendicular skeleton, for example: -Head of right fourth posterior rib and associated ??vertebral pedicle, that has an SUV max of 9.9. Series 4, image 101. -T4 vertebral body lytic lesion with SUV max 7.4. Series 4, image 111. -Body of sternum having soft tissue component having SUV max of 8.9. Series 4, image 118. -Left sacral ala with SUV max of 10.0 having a soft tissue component eroding into the S1 foramen on the left side. Series 4, image 2-8. Addition lesions in bilateral humeri and both femurs as well as the sacrum and bilateral iliac bones. Procedure Note Jj Floyd MD - 05/15/2023 Combined Report of: PET and CT on 05/15/2023 12:02 PM: 1. PET of the neck, chest, abdomen, and pelvis. 2. PET CT Fusion for Attenuation Correction and Anatomical Localization. 3. Diagnostic CT of the chest, abdomen and pelvis with intravenous contrast obtained for diagnostic interpretation. 4. 3D MIP and PET-CT fused images were processed on an independent workstation and archived to PACS and reviewed by a radiologist. Technique: 1. PET: The patient received 11.3 mCi of F-18-FDG. The serum glucose was 109 mg/dL prior to administration. Body weight was 80.6 kg. Images were evaluated in the axial, sagittal, and coronal planes as well as the rotational whole body MIP. Images were acquired from the cranial vertex to the feet. UPTAKE WAS MEASURED AT 60 MINUTES. BACKGROUND: Liver SUV max = 3.1, Aorta Blood SUV Max = 3.0. 2. CT: Volumetric acquisition for clinical interpretation of the chest, abdomen, and pelvis acquired at 3 mm sections. The chest, abdomen, and pelvis were evaluated at 5 mm sections in bone, soft tissue, and lung windows. Contrast and Medications: IV contrast: 108 mL of Isovue 370 intravenously. PO contrast: none. Additional Medications: None. 3. 3D MIP and PET-CT fused images were processed on an independent workstation and archived to PACS and reviewed by a radiologist. 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 ADDITIONAL INFORMATION OBTAINED FROM EMR: 47-year-old female with recently diagnosed metastatic bone carcinoma on left femoral bone biopsy having unknown primary. Staging exam. COMPARISON: None. FINDINGS: HEAD/NECK: There is no suspicious FDG uptake in the neck. The paranasal sinuses are clear. The mastoid air cells are clear. No hypermetabolic lymph nodes are demonstrated in the neck. The mucosal and deep spaces of the neck are unremarkable. The major salivary glands are unremarkable. The thyroid is unremarkable. The major vasculature of the neck are patent. CHEST: Multiple, scattered, predominantly rounded hypermetabolic soft tissue nodules of variable size in both lung davis for example: -Largest soft tissue mass in right lower lobe having SUV max of 13.8, measuring 4.0 x 3.3 cm. Series 4, image 130. -Left upper lobe with SUV max 4.9, measuring 0.8 x 0.7 cm (series 4, image 120. The central tracheobronchial tree is clear. No pleural effusion or pneumothorax. No hypermetabolic lymph nodes are demonstrated in the chest. Heart size is within normal limits. No pericardial effusion. The thoracic aorta and main pulmonary artery are within normal limits for diameter. The esophagus is unremarkable. Osseous lesions are detailed below under bones. ABDOMEN AND PELVIS: There is a large heterogeneously enhancing, hypermetabolic mass in the pelvis adjacent to the uterus, close to the cecum, and exerting mass effect over the terminal ileum and adjacent structures. This has internal hypodense, photopenic areas. It has an SUV max of 14.2 and measures approximately 12.0 x 68.5 x 8.5 cm. Series 4, image 244. There is soft tissue enhancement of the cecum with hypermetabolic uptake having SUV max of 13.7. Series 4, image 236. Several small fibroids within the uterus. A few prominent para-aortic lymph nodes with mild FDG uptake, for example right para-aortic node having SUV max of 2.7 measuring 1.3 cm. Series 4, image 190. These are favored to be reactive. The liver is unremarkable with 2 probable cysts. Apparent FDG uptake in segment 8 is likely artifactual from a right lower lobe/pleural nodule. The gallbladder is unremarkable. No intrahepatic or extrahepatic biliary ductal dilatation. The pancreas is unremarkable. No pancreatic ductal dilatation. The spleen is unremarkable. The adrenal glands are unremarkable. There is an exophytic hypermetabolic cortical lesion in the interpolar region of right kidney having SUV max of 7.3, it measures 1.4 x 1.3 cm. Series 4, image 180. Normal enhancing left kidney. No hydronephrosis on either side. The urinary bladder is unremarkable. Prominent left gonadal vein with prominent pelvic veins may be seen in pelvic congestion. Normal caliber of the small bowel. No free air, free fluid, or fluid collection. Normal caliber of the abdominal aorta. Few hypermetabolic subcutaneous nodules are seen in posterior-lateral abdominal wall for example hypermetabolic nodule with SUV max 2.7 history 0.5 cm. Series 4, image 188. These are nonspecific may represent injection granulomas. EXTREMITIES: There is no suspicious FDG uptake in the visualized extremities. BONES: Multiple areas of hypermetabolic lytic bone lesions, some with soft tissue competent are seen throughout the axial and proximal appendicular skeleton, for example: -Head of right fourth posterior rib and associated vertebral pedicle, that has an SUV max of 9.9. Series 4, image 101. -T4 vertebral body lytic lesion with SUV max 7.4. Series 4, image 111. -Body of sternum having soft tissue component having SUV max of 8.9. Series 4, image 118. -Left sacral ala with SUV max of 10.0 having a soft tissue component eroding into the S1 foramen on the left side. Series 4, image 2-8. Addition lesions in bilateral humeri and both femurs as well as the sacrum and bilateral iliac bones. 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 Heterogeneous solid cystic hypermetabolic pelvic mass abutting the uterus and cecum. This is concerning for a primary tumor, possibly an adnexal mass. There is a smaller mass at the cecum which is likely a similar process. 2. Multiple lytic osseous and pulmonary metastatic lesions are throughout the axial and appendicular skeleton and in both lung davis suspicious for diffuse metastasis. No definite lymphadenopathy seen on current exam. 3. A hypermetabolic right renal cortical soft tissue nodule is indeterminate, this may represent metastatic disease versus second primary such as renal cell carcinoma. Dedicated renal protocol MRI pelvis may be helpful for further characterization. I have personally reviewed the examination and initial interpretation and I agree with the findings. 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 Heterogeneous solid cystic hypermetabolic pelvic mass abutting the uterus and cecum. This is concerning for a primary tumor, possibly an adnexal mass. There is a smaller mass at the cecum which is likely a similar process. 2. Multiple lytic osseous and pulmonary metastatic lesions are throughout the axial and appendicular skeleton and in both lung davis suspicious for diffuse metastasis. No definite lymphadenopathy seen on current exam. 3. A hypermetabolic right renal cortical soft tissue nodule is indeterminate, this may represent metastatic disease versus second primary such as renal cell carcinoma. Dedicated renal protocol MRI pelvis may be helpful for further characterization. I have personally reviewed the examination and initial interpretation and I agree with the findings. JJ FLOYD DO Narrative 05/15/2023 2:53 PM CDT Combined Report of: PET and CT on 05/15/2023 12:02 PM: 1. PET of the neck, chest, abdomen, and pelvis. 2. PET CT Fusion for Attenuation Correction and Anatomical Localization. 3. Diagnostic CT of the chest, abdomen and pelvis with intravenous contrast obtained for diagnostic interpretation. 4. 3D MIP and PET-CT fused images were processed on an independent workstation and archived to PACS and reviewed by a radiologist. Technique: 1. PET: The patient received 11.3 mCi of F-18-FDG. The serum glucose was 109 mg/dL prior to administration. Body weight was 80.6 kg. Images were evaluated in the axial, sagittal, and coronal planes as well as the rotational whole body MIP. Images were acquired from the cranial vertex to the feet. UPTAKE WAS MEASURED AT 60 MINUTES. BACKGROUND: Liver SUV max = 3.1, Aorta Blood SUV Max = 3.0. 2. CT: Volumetric acquisition for clinical interpretation of the chest, abdomen, and pelvis acquired at 3 mm sections. The chest, abdomen, and pelvis were evaluated at 5 mm sections in bone, soft tissue, and lung windows. Contrast and Medications: IV contrast: 108 mL of Isovue 370 intravenously. PO contrast: none. Additional Medications: None. 3. 3D MIP and PET-CT fused images were processed on an independent workstation and archived to PACS and reviewed by a radiologist. 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 ADDITIONAL INFORMATION OBTAINED FROM EMR: 47-year-old female with recently diagnosed metastatic bone carcinoma on left femoral bone biopsy having unknown primary. Staging exam. COMPARISON: None. FINDINGS: HEAD/NECK: There is no suspicious FDG uptake in the neck. The paranasal sinuses are clear. The mastoid air cells are clear. No hypermetabolic lymph nodes are demonstrated in the neck. The mucosal and deep spaces of the neck are unremarkable. The major salivary glands are unremarkable. The thyroid is unremarkable. The major vasculature of the neck are patent. CHEST: Multiple, scattered, predominantly rounded hypermetabolic soft tissue nodules of variable size in both lung davis for example: -Largest soft tissue mass in right lower lobe having SUV max of 13.8, measuring 4.0 x 3.3 cm. Series 4, image 130. -Left upper lobe with SUV max 4.9, measuring 0.8 x 0.7 cm (series 4, image 120. The central tracheobronchial tree is clear. No pleural effusion or pneumothorax. No hypermetabolic lymph nodes are demonstrated in the chest. Heart size is within normal limits. No pericardial effusion. The thoracic aorta and main pulmonary artery are within normal limits for diameter. The esophagus is unremarkable. Osseous lesions are detailed below under bones. ABDOMEN AND PELVIS: There is a large heterogeneously enhancing, hypermetabolic mass in the pelvis adjacent to the uterus, close to the cecum, and exerting mass effect over the terminal ileum and adjacent structures. This has internal hypodense, photopenic areas. It has an SUV max of 14.2 and measures approximately 12.0 x 68.5 x 8.5 cm. Series 4, image 244. There is soft tissue enhancement of the cecum with hypermetabolic uptake having SUV max of 13.7. Series 4, image 236. Several small fibroids within the uterus. A few prominent para-aortic lymph nodes with mild FDG uptake, for example right para-aortic node having SUV max of 2.7 measuring 1.3 cm. Series 4, image 190. These are favored to be reactive. The liver is unremarkable with 2 probable cysts. Apparent FDG uptake in segment 8 is likely artifactual from a right lower lobe/pleural nodule. The gallbladder is unremarkable. No intrahepatic or extrahepatic biliary ductal dilatation. The pancreas is unremarkable. No pancreatic ductal dilatation. The spleen is unremarkable. The adrenal glands are unremarkable. There is an exophytic hypermetabolic cortical lesion in the interpolar region of right kidney having SUV max of 7.3, it measures 1.4 x 1.3 cm. Series 4, image 180. Normal enhancing left kidney. No hydronephrosis on either side. The urinary bladder is unremarkable. Prominent left gonadal vein with prominent pelvic veins may be seen in pelvic congestion. Normal caliber of the small bowel. No free air, free fluid, or fluid collection. Normal caliber of the abdominal aorta. Few hypermetabolic subcutaneous nodules are seen in posterior-lateral abdominal wall for example hypermetabolic nodule with SUV max 2.7 history 0.5 cm. Series 4, image 188. These are nonspecific may represent injection granulomas. EXTREMITIES: There is no suspicious FDG uptake in the visualized ??extremities. BONES: Multiple areas of hypermetabolic lytic bone lesions, some with soft tissue competent are seen throughout the axial and proximal appendicular skeleton, for example: -Head of right fourth posterior rib and associated ??vertebral pedicle, that has an SUV max of 9.9. Series 4, image 101. -T4 vertebral body lytic lesion with SUV max 7.4. Series 4, image 111. -Body of sternum having soft tissue component having SUV max of 8.9. Series 4, image 118. -Left sacral ala with SUV max of 10.0 having a soft tissue component eroding into the S1 foramen on the left side. Series 4, image 2-8. Addition lesions in bilateral humeri and both femurs as well as the sacrum and bilateral iliac bones. Procedure Note Jj Floyd MD - 05/15/2023 Combined Report of: PET and CT on 05/15/2023 12:02 PM: 1. PET of the neck, chest, abdomen, and pelvis. 2. PET CT Fusion for Attenuation Correction and Anatomical Localization. 3. Diagnostic CT of the chest, abdomen and pelvis with intravenous contrast obtained for diagnostic interpretation. 4. 3D MIP and PET-CT fused images were processed on an independent workstation and archived to PACS and reviewed by a radiologist. Technique: 1. PET: The patient received 11.3 mCi of F-18-FDG. The serum glucose was 109 mg/dL prior to administration. Body weight was 80.6 kg. Images were evaluated in the axial, sagittal, and coronal planes as well as the rotational whole body MIP. Images were acquired from the cranial vertex to the feet. UPTAKE WAS MEASURED AT 60 MINUTES. BACKGROUND: Liver SUV max = 3.1, Aorta Blood SUV Max = 3.0. 2. CT: Volumetric acquisition for clinical interpretation of the chest, abdomen, and pelvis acquired at 3 mm sections. The chest, abdomen, and pelvis were evaluated at 5 mm sections in bone, soft tissue, and lung windows. Contrast and Medications: IV contrast: 108 mL of Isovue 370 intravenously. PO contrast: none. Additional Medications: None. 3. 3D MIP and PET-CT fused images were processed on an independent workstation and archived to PACS and reviewed by a radiologist. 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 ADDITIONAL INFORMATION OBTAINED FROM EMR: 47-year-old female with recently diagnosed metastatic bone carcinoma on left femoral bone biopsy having unknown primary. Staging exam. COMPARISON: None. FINDINGS: HEAD/NECK: There is no suspicious FDG uptake in the neck. The paranasal sinuses are clear. The mastoid air cells are clear. No hypermetabolic lymph nodes are demonstrated in the neck. The mucosal and deep spaces of the neck are unremarkable. The major salivary glands are unremarkable. The thyroid is unremarkable. The major vasculature of the neck are patent. CHEST: Multiple, scattered, predominantly rounded hypermetabolic soft tissue nodules of variable size in both lung davis for example: -Largest soft tissue mass in right lower lobe having SUV max of 13.8, measuring 4.0 x 3.3 cm. Series 4, image 130. -Left upper lobe with SUV max 4.9, measuring 0.8 x 0.7 cm (series 4, image 120. The central tracheobronchial tree is clear. No pleural effusion or pneumothorax. No hypermetabolic lymph nodes are demonstrated in the chest. Heart size is within normal limits. No pericardial effusion. The thoracic aorta and main pulmonary artery are within normal limits for diameter. The esophagus is unremarkable. Osseous lesions are detailed below under bones. ABDOMEN AND PELVIS: There is a large heterogeneously enhancing, hypermetabolic mass in the pelvis adjacent to the uterus, close to the cecum, and exerting mass effect over the terminal ileum and adjacent structures. This has internal hypodense, photopenic areas. It has an SUV max of 14.2 and measures approximately 12.0 x 68.5 x 8.5 cm. Series 4, image 244. There is soft tissue enhancement of the cecum with hypermetabolic uptake having SUV max of 13.7. Series 4, image 236. Several small fibroids within the uterus. A few prominent para-aortic lymph nodes with mild FDG uptake, for example right para-aortic node having SUV max of 2.7 measuring 1.3 cm. Series 4, image 190. These are favored to be reactive. The liver is unremarkable with 2 probable cysts. Apparent FDG uptake in segment 8 is likely artifactual from a right lower lobe/pleural nodule. The gallbladder is unremarkable. No intrahepatic or extrahepatic biliary ductal dilatation. The pancreas is unremarkable. No pancreatic ductal dilatation. The spleen is unremarkable. The adrenal glands are unremarkable. There is an exophytic hypermetabolic cortical lesion in the interpolar region of right kidney having SUV max of 7.3, it measures 1.4 x 1.3 cm. Series 4, image 180. Normal enhancing left kidney. No hydronephrosis on either side. The urinary bladder is unremarkable. Prominent left gonadal vein with prominent pelvic veins may be seen in pelvic congestion. Normal caliber of the small bowel. No free air, free fluid, or fluid collection. Normal caliber of the abdominal aorta. Few hypermetabolic subcutaneous nodules are seen in posterior-lateral abdominal wall for example hypermetabolic nodule with SUV max 2.7 history 0.5 cm. Series 4, image 188. These are nonspecific may represent injection granulomas. EXTREMITIES: There is no suspicious FDG uptake in the visualized extremities. BONES: Multiple areas of hypermetabolic lytic bone lesions, some with soft tissue competent are seen throughout the axial and proximal appendicular skeleton, for example: -Head of right fourth posterior rib and associated vertebral pedicle, that has an SUV max of 9.9. Series 4, image 101. -T4 vertebral body lytic lesion with SUV max 7.4. Series 4, image 111. -Body of sternum having soft tissue component having SUV max of 8.9. Series 4, image 118. -Left sacral ala with SUV max of 10.0 having a soft tissue component eroding into the S1 foramen on the left side. Series 4, image 2-8. Addition lesions in bilateral humeri and both femurs as well as the sacrum and bilateral iliac bones. 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 Heterogeneous solid cystic hypermetabolic pelvic mass abutting the uterus and cecum. This is concerning for a primary tumor, possibly an adnexal mass. There is a smaller mass at the cecum which is likely a similar process. 2. Multiple lytic osseous and pulmonary metastatic lesions are throughout the axial and appendicular skeleton and in both lung davis suspicious for diffuse metastasis. No definite lymphadenopathy seen on current exam. 3. A hypermetabolic right renal cortical soft tissue nodule is indeterminate, this may represent metastatic disease versus second primary such as renal cell carcinoma. Dedicated renal protocol MRI pelvis may be helpful for further characterization. I have personally reviewed the examination and initial interpretation and I agree with the findings. JJ FLOYD DO Rachel Cecelia Sanz PA-C IMG CT O RDERABLES * FISH (05/13/2023 1:39 PM CDT) Interpretation METHODS: Specimen: Formalin-fixed, paraffin embedded (FFPE) left femur biopsy Test performed: Fluorescence in situ hybridization (FISH) Interphase cells examined: 200 Probes: - EWSR1 (22q12) (breakapart) - Weber Molecular RESULTS: ABNORMAL - Gains of EWSR1 (94.5%); No evidence of rearrangement of EWSR1 INTERPRETATION: Of the interphase cells examined, 94.5% had 3-5 EWSR1 signals present; no rearrangement of EWSR1 was found. The signal pattern seen in this case may reflect gains of all or part of chromosome 22. ISCN: nuc homero(JVED2a8)[81/ 200]/(OBHM1y4)[6 0/200]/(QSHH8r9) [48/200] ADDITIONAL COMMENTS: Control ranges: EWSR1 rearr: 0-0.1% MEOC8j5: 0-3.4% ZZYU2y6: 0-1.8% DDYK1z9: 0-0.1% Analyte Specific Reagents (ASRs) are used in many laboratory tests necessary for standard medical care and generally do not require FDA approval. This test was developed and its performance characteristics determined by the [facility], [facility]. It has not been cleared or approved by the U.S. Food and Drug Administration. Electronically signed by Jose Patel M.D., Ph.D., [facility] on 05/21/23 at 5:03 PM. 05/21/2023 5:03 PM [employer] [facility] Bone Biopsy STRUCTURE OF LEFT FEMUR / Unknown 05/13/2023 1:39 PM CDT 05/17/2023 4:50 PM CDT Shiva Kruger MD LAB - [facility] [employer] [facility] [facility] Cytogenetics Lab 6 [facility] [place] Room 15-[address] [phone] * MTB Complex and Resistance (05/13/2023 1:32 PM CDT) Mycobacterium Tuberculosis PCR Not Detected 05/16/2023 3:20 AM CDT [email or web address] MTB Rifampin Resistance by PCR Not Applicable 05/16/2023 3:20 AM CDT [facility] MTB Complex Interpretation Not Detected 05/16/2023 3:20 AM CDT [facility] Comment: MTB target is not detected within the sample. INTERPRETIVE INFORMATION: Mycobacterium tuberculosis Complex Detection and Rifampin Resistance by PCR Mycobacterial culture is a more sensitive method than molecular testing for the diagnosis of tuberculosis and is still considered the gold standard. When possible, a culture must be performed regardless of the molecular method test result. Performed By: [employer] [address] [place] [id number] [employer] Operator: Ventura Adrian MD, PhD CLIA Number: [id number] Bone Biopsy STRUCTURE OF LEFT FEMUR / Unknown Non-blood Collection / Unknown 05/13/2023 1:32 PM CDT 05/13/2023 1:58 PM CDT Shiva Kruger MD LAB - BLOOD ORDER DANIEL Performing Organization Address City/[facility]/ZIP Co de Phone Number [employer] [address] [place] [phone], [facility] [phone] * Bone Biopsy Aerobic Bacterial Culture Routine (05/13/2023 1:32 PM CDT) Culture No Growth BRADLY 05/19/2023 7:06 AM [employer] [facility] Bone Biopsy STRUCTURE OF LEFT FEMUR / Unknown Non-blood Collection / Unknown 05/13/2023 1:32 PM CDT 05/13/2023 1:58 PM CDT Shiva Kruger MD LAB - MICRO GENER AL ORDERABLES Performing Organization Address City/[facility]/ZIP Co de Phone Number [facility] Inf. Diseases Diag. Lab [address] [facility], Room [place] [phone], [facility] [phone] * Fungal or Yeast Culture Routine (05/13/2023 1:32 PM CDT) Culture No Growth BRADLY 06/10/2023 7:35 AM [employer] [facility] Bone Biopsy STRUCTURE OF LEFT FEMUR / Unknown Non-blood Collection / Unknown 05/13/2023 1:32 PM CDT 05/13/2023 1:58 PM CDT Shiva Kruger MD LAB - MICRO GENER AL ORDERABLES Performing Organization Address City/[facility] de Phone Number [facility] Inf. Diseases Diag. Lab [address] [facility], [address] [phone], [facility] [phone] * Anaerobic Bacterial Culture Routine (05/13/2023 1:32 PM CDT) Culture No anaerobic organisms isolated BRADLY 05/20/2023 9:34 AM [employer] [facility] Bone Biopsy STRUCTURE OF LEFT FEMUR / Unknown Non-blood Collection / Unknown 05/13/2023 1:32 PM CDT 05/13/2023 1:58 PM CDT Shiva Kruger MD LAB - MICRO GENER AL ORDERABLES [facility] Inf. Diseases Diag. Lab [address] [facility], [address] [place] [address], [facility] [phone] * (ABNORMAL) Surgical Pathology Exam (05/13/2023 1:26 PM CDT) Case Report Surgical Pathology Report ? Case: [id number] ? Authorizing Provider: ??Shiva Kruger MD ?? Collected: ? 05/13/2023 01:26 PM ? Ordering Location: ? [facility] ? Received: ?05/13/2023 01:36 PM ? Pathologist: ? La Nena Velarde MD ? Intraop: ? La Nena Velarde MD ? Specimens: ?? A) - Femur, Left, Left femur tumor ? B) - Femur, Left, FINAL, tumor left femur, please save some for immunophenotyping if ? needed ? 3 6:13 PM [facility] Addendum FISH test demonstrates no evidence of EWSR1 gene rearrangement, rendering the possibility of clear cell sarcoma unlikely. The original final diagnosis of melanoma is therefore unchanged. 3 6:13 PM [facility] Addendum electronically signed by La Nena Velarde MD on 05/21/2023 at 6:13 PM Final Diagnosis A, B. Bone, left femur tumor, biopsy: - Metastatic high grade malignancy most consistent with melanoma - See comment 3 6:13 PM [facility] Comment:This is an appended report. These results have been appended to a previously preliminary verified report. Comment Imaging studies demonstrate a large pelvic mass abutting the uterus and cecum with multiple osseous and pulmonary lesions. In conjunction with the lack of prior history of melanoma (per EMR), this clinical presentation is unusual for a melanoma. However, the immunohistochemical profile of the tumor (see microscopic description) is strongly indicative of a melanoma. FISH test for EWSR1 gene rearrangement will be performed to evaluate for the possibility of clear cell sarcoma (formerly known as melanoma of soft parts); the results will be reported in an addendum. 3 6:13 PM [facility] [employer] Comment:This is an appended report. These results have been appended to a previously preliminary verified report. Clinical Information History of a heterogeneous solid cystic hypermetabolic pelvic mass abutting the uterus and cecum, multiple lytic osseous and pulmonary metastatic lesions, and a right renal cortical soft tissue nodule. 3 6:13 PM [facility] Comment:This is an appended report. These results have been appended to a previously preliminary verified report. Intraoperative Consultation A(1). Femur, Left, Left femur tumor: AFS1: Metastatic carcinoma 11/07/202 3 6:13 PM [facility] Gross Description A(1). Femur, Left, Left femur tumor: The specimen is received fresh for frozen section, with proper patient identification, labeled left femur tumor. It consists of a 1.7 x 0.7 x 0.6 cm aggregate of bone and hansen-red soft tissue fragments. The soft tissue is submitted entirely for frozen section. The remainder of the frozen section block is submitted as A1 FS. The bone is wrapped and submitted in cassette A2 (decal). B(2). Femur, Left, FINAL, tumor left femur, please save some for immunophenotyping if needed: The specimen is received fresh with proper patient identification labeled tumor left femur. The specimen consists of a 4.0 x 3.5 x 1.5 cm aggregate of hansen-white soft tissue fragments and bone. The larger pieces are sectioned and the specimen is wrapped and entirely submitted. B1: Bone (decal) B2-B3: Soft tissue 3 6:13 PM [facility] Comment:This is an appended report. These results have been appended to a previously preliminary verified report. Microscopic Description Microscopic examination is performed. The biopsied tissue shows sheets of monotonous epithelioid cells with moderate pale eosinophilic cytoplasm, oval nuclei and inconspicuous nucleoli. Very high mitotic activity and tumor necrosis are noted. Immunohistochemical stains show the tumor is positive for SOX10, S100, Melan-A, HMB45, PRAME and BRAF V600E. Desmin, DOG1, INSM1, SSX18 and SF-1 are negative while SATB2 and SSXC show patchy weak reactivity. CK AE1/AE3 is weakly positive in rare cells. INI1 is retained. These results are consistent with and support the above diagnosis. Case was reviewed by the following: Resident Pathologist: Demetrius Miramontes MD A resident or fellow in a training program was involved in the initial review, preparation, and/or interpretation of this case. I, as the senior physician, attest that I have personally reviewed all specimens and or slides, including the listed special stains, and used them with my medical judgement to determine the final diagnosis. 3 6:13 PM [facility] Comment:This is an appended report. These results have been appended to a previously preliminary verified report. Disclaimer Analyte Specific Reagents (ASRs) are used in many laboratory tests necessary for standard medical care and generally do not require FDA approval. This test was developed and its performance characteristics determined by [facility]. It has not been cleared or approved by the U.S. Food and Drug Administration. [facility] are certified for the performance of high-complexity clinical testing under the Clinical Laboratory Improvement Amendments of 1988 (CLIA), and in keeping with the certification requirements, the laboratory has verified this test's accuracy, precision and/or validity of the method. 3 6:13 PM [facility] Comment:This is an appended report. These results have been appended to a previously preliminary verified report. MCRS Yes(A) N/A 3 6:13 PM [facility] Comment:This is an appended report. These results have been appended to a previously preliminary verified report. Performing Labs The technical component of this testing was completed at [facility] 3 6:13 PM [facility] Comment:This is an appended report. These results have been appended to a previously preliminary verified report. Case Images 3 6:13 PM [facility] Bone Biopsy STRUCTURE OF LEFT FEMUR / Unknown 05/13/2023 1:26 PM CDT 05/13/2023 1:36 PM CDT Bone biopsy specimen (specimen) STRUCTURE OF LEFT FEMUR / Unknown 05/13/2023 1:39 PM CDT 05/13/2023 2:17 PM CDT [facility] Specialty Lab [address] [facility] [address] Building, [address] [place] [address], [facility] [phone] LABORATORY [facility] Acute Care Lab [address] [facility], [address] [place] [address], [place] [phone] * ANE AIRWAY ETT PERFORMABLE (05/13/2023 1:12 PM CDT) Narrative Emelia Bermudez, GAIL CREMATORIUM OPERATOR - 05/13/2023 1:12 PM CDT Lara Emelianakul Diaz APRN CRNA ? 05/13/2023 ??1:13 PM Airway ? Patient location during procedure: OR Staff - ? Performed By: CRNAIndications and Patient Condition ? Indications for airway management: ze-procedural ? Induction type:intravenous ? Mask difficulty assessment: 1 - vent by mask Final Airway Details ? Final airway type: endotracheal airway ? Successful airway: Oral Endotracheal Airway Details ? Cuffed: yes ? Successful intubation technique: direct laryngoscopy ? DL Blade Type: MAC 3 ? Grade View of Cords: 1 ? Adjucts: stylet ? Position: Right ? Bite block used: None Post intubation assessment ? Placement verified by: capnometry, equal breath sounds and chest rise ? Number of attempts at approach: 1 ? Number of other approaches attempted: 0 ? Secured with: silk tape ? Ease of procedure: easy ? Dentition: Intact Suleiman Sanz MD DC ANESTHESIA * (ABNORMAL) Protein Electrophoresis, Serum (05/09/2023 4:21 PM CDT) Albumin 3.5(L) 3.7 - 5.1 g/dL 05/10/2023 1:06 PM CDT SPECIALTY CORE/PROT/E NDO Alpha 1 0.6(H) 0.2 - 0.4 g/dL 05/10/2023 1:06 PM CDT SPECIALTY CORE/PROT/E NDO Alpha 2 1.3(H) 0.5 - 0.9 g/dL 05/10/2023 1:06 PM CDT SPECIALTY CORE/PROT/E NDO Beta Globulin 1.0 0.6 - 1.0 g/dL 05/10/2023 1:06 PM CDT SPECIALTY CORE/PROT/E NDO Gamma Globulin 1.4 0.7 - 1.6 g/dL 05/10/2023 1:06 PM CDT SPECIALTY CORE/PROT/E NDO Monoclonal Peak 0.0 <=0.0 g/dL 05/10/2023 1:06 PM CDT SPECIALTY CORE/PROT/E NDO ELP Interpretation Hypoalbuminemia with increased alpha 1 and alpha 2 globulins, suggestive of acute phase reaction. No monoclonal protein seen. Pathologic significance requires clinical correlation. Zaid Fontenot M.D., Ph.D., Pathologist. 05/10/2023 1:06 PM CDT SPECIALTY CORE/PROT/E NDO Blood STRUCTURE OF LEFT UPPER LIMB / Unknown Venipuncture / Unknown 05/09/2023 4:21 PM CDT 05/09/2023 4:21 PM CDT Rachel Sanz PA-C LAB - BL OOD ORDERABLES SPECIALTY CORE/PROT/ENDO Specialty Core/Prot/Endo [address] [facility], [address] [phone] * Total Protein, Serum for ELP (05/09/2023 4:21 PM CDT) Total Protein Serum for ELP 7.9 6.4 - 8.3 g/dL 05/10/2023 3:42 AM CDT LABORATORY Blood STRUCTURE OF LEFT UPPER LIMB / Unknown Venipuncture / Unknown 05/09/2023 4:21 PM CDT 05/09/2023 4:21 PM CDT Rachel Sanz PA-C LAB - BL OOD ORDERABLES U LABORATORY [facility] [place] Core Lab [address] [facility] [address] [facility], [address] [place] [address], [facility] [phone] * (ABNORMAL) CBC with platelets and differential (05/09/2023 4:21 PM CDT) WBC Count 7.9 4.0 - 11.0 10e3/uL 05/09/2023 4:25 PM CDT [facility] RBC Count 3.37(L) 3.80 - 5.20 10e6/uL 05/09/2023 4:25 PM CDT [facility]ORE [facility] Hemoglobin 10.2(L) 11.7 - 15.7 g/dL 05/09/2023 4:25 PM CDT [facility] Hematocrit 30.2(L) 35.0 - 47.0 % 05/09/2023 4:25 PM CDT [facility] MCV 90 78 - 100 fL 05/09/2023 4:25 PM CDT [facility] MCH 30.3 26.5 - 33.0 pg 05/09/2023 4:25 PM CDT [facility] MCHC 33.8 31.5 - 36.5 g/dL 05/09/2023 4:25 PM CDT [facility] RDW 13.4 10.0 - 15.0 % 05/09/2023 4:25 PM CDT [facility] Platelet Count 460(H) 150 - 450 10e3/uL 05/09/2023 4:25 PM CDT [facility] % Neutrophils 72 % 05/09/2023 4:25 PM CDT [facility] % Lymphocytes 19 % 05/09/2023 4:25 PM CDT [facility] % Monocytes 9 % 05/09/2023 4:25 PM CDT [facility] % Eosinophils 0 % 05/09/2023 4:25 PM CDT [facility] % Basophils 0 % 05/09/2023 4:25 PM CDT [facility] % Immature Granulocytes 0 % 05/09/2023 4:25 PM CDT [facility] NRBCs per 100 WBC 0 <1 /100 023 4:25 PM CDT [facility] Absolute Neutrophils 5.6 1.6 - 8.3 10e3/uL 05/09/2023 4:25 PM CDT [facility] Absolute Lymphocytes 1.5 0.8 - 5.3 10e3/uL 05/09/2023 4:25 PM CDT [facility] Absolute Monocytes 0.7 0.0 - 1.3 10e3/uL 05/09/2023 4:25 PM CDT [facility] Absolute Eosinophils 0.0 0.0 - 0.7 10e3/uL 05/09/2023 4:25 PM CDT [facility] Absolute Basophils 0.0 0.0 - 0.2 10e3/uL 05/09/2023 4:25 PM CDT [facility] Absolute Immature Granulocytes 0.0 <=0.4 10e3/uL 05/09/2023 4:25 PM CDT [facility] Absolute NRBCs 0.0 10e3/uL 05/09/2023 4:25 PM CDT [facility] Blood STRUCTURE OF LEFT UPPER LIMB / Unknown Venipuncture / Unknown 05/09/2023 4:21 PM CDT 05/09/2023 4:21 PM CDT Rachel Sanz PA-C LAB - BL OOD ORDERABLES [facility] [address] 1st Floor Lab Core Lab [place], [place] [address] * Adult Type and Screen (05/09/2023 4:21 PM CDT) Pathologist [facility] ABO/RH(D) O NEG 05/08/2023 7:00 PM CDT BLOOD BANK Antibody Screen Negative Negative 05/08/2023 7:00 PM CDT BLOOD BANK SPECIMEN EXPIRATION DATE [id number] 05/08/2023 7:00 PM CDT BLOOD BANK Blood STRUCTURE OF LEFT UPPER LIMB / Unknown Venipuncture / Unknown 05/09/2023 4:21 PM CDT 05/09/2023 4:21 PM CDT Lily Meyers APRN ELECTRONIC CONTROLS REPAIRER SUPERVISOR LAB - BLOOD BAN K TEST ORDER BLOOD BANK [address] [place] [address] * (ABNORMAL) Peters and lambda light chain (05/09/2023 4:21 PM CDT) Pathologist [facility] Peters Free Light Chains 4.33(H) 0.33 - 1.94 mg/dL 05/10/2023 11:06 AM CDT SPECIALTY CORE/PROT/ENDO Lambda Free Light Chains 2.91(H) 0.57 - 2.63 mg/dL 05/10/2023 11:06 AM CDT [facility] SPECIALTY CORE/PROT/ENDO Peters /Lambda Ratio 1.49 0.26 - 1.65 05/10/2023 11:06 AM CDT SPECIALTY CORE/PROT/ENDO Blood STRUCTURE OF LEFT UPPER LIMB / Unknown Venipuncture / Unknown 05/09/2023 4:21 PM CDT 05/09/2023 4:21 PM CDT Rachel Sanz PA-C LAB - BL OOD ORDERABLES SPECIALTY CORE/PROT/ENDO Specialty Core/Prot/Endo [address] [facility] [address] [facility], [address] [phone] * (ABNORMAL) Erythrocyte sedimentation rate auto (05/09/2023 4:21 PM CDT) Erythrocyte Sedimentation Rate 100(H) 0 - 20 mm/hr 05/09/2023 4:32 PM CDT [facility] Blood STRUCTURE OF LEFT UPPER LIMB / Unknown Venipuncture / Unknown 05/09/2023 4:21 PM CDT 05/09/2023 4:21 PM CDT Rachel Sanz PA-C LAB - BL OOD ORDERABLES [facility] [address] [facility] 1st [place] [address] * (ABNORMAL) CRP inflammation (05/09/2023 4:21 PM CDT) CRP Inflammation 75.60(H) <5.00 mg/L 05/09/2023 4:57 PM CDT [facility] Blood STRUCTURE OF LEFT UPPER LIMB / Unknown Venipuncture / Unknown 05/09/2023 4:21 PM CDT 05/09/2023 4:21 PM CDT Rachel Sanz PA-C LAB - BL OOD ORDERABLES [facility] [address] 1[address] [place] [address] * (ABNORMAL) Comprehensive metabolic panel (05/09/2023 4:21 PM CDT) Sodium 133(L) 135 - 145 mmol/L 05/09/2023 4:57 PM CDT [facility] Comment:Reference intervals for this test were updated on 04/09/2023 to more accurately reflect our healthy population. There may be differences in the flagging of prior results with similar values performed with this method. Interpretation of those prior results can be made in the context of the updated reference intervals. Potassium 3.3(L) 3.4 - 5.3 mmol/L 05/09/2023 4:57 PM CDT [facility] Carbon Dioxide (CO2) 25 22 - 29 mmol/L 05/09/2023 4:57 PM CDT [facility] Anion Gap 18(H) 7 - 15 mmol/L 05/09/2023 4:57 PM CDT [facility] Urea Nitrogen 14.1 6.0 - 20.0 mg/dL 05/09/2023 4:57 PM CDT [facility] Creatinine 0.73 0.51 - 0.95 mg/dL 05/09/2023 4:57 PM CDT [facility] GFR Estimate >90 >60 mL/min/1. 73m2 05/09/2023 4:57 PM CDT [facility] Calcium 10.1(H) 8.6 - 10.0 mg/dL 05/09/2023 4:57 PM CDT [facility] Chloride 90(L) 98 - 107 mmol/L 05/09/2023 4:57 PM CDT [facility] Glucose 95 70 - 99 mg/dL 05/09/2023 4:57 PM CDT [facility] Alkaline Phosphatase 110(H) 35 - 104 U/L 05/09/2023 4:57 PM CDT [facility] AST 25 0 - 45 U/L 05/09/2023 4:57 PM CDT [facility] Comment:Reference intervals for this test were updated on 12/24/2022 to more accurately reflect our healthy population. There may be differences in the flagging of prior results with similar values performed with this method. Interpretation of those prior results can be made in the context of the updated reference intervals. ALT 16 0 - 50 U/L 05/09/2023 4:57 PM CDT [facility] Comment:Reference intervals for this test were updated on 12/24/2022 to more accurately reflect our healthy population. There may be differences in the flagging of prior results with similar values performed with this method. Interpretation of those prior results can be made in the context of the updated reference intervals. Protein Total 8.4(H) 6.4 - 8.3 g/dL 05/09/2023 4:57 PM CDT [facility] Albumin 4.1 3.5 - 5.2 g/dL 05/09/2023 4:57 PM CDT [facility] Bilirubin Total 0.4 <=1.2 mg/dL 05/09/2023 4:57 PM CDT [facility] Blood STRUCTURE OF LEFT UPPER LIMB / Unknown Venipuncture / Unknown 05/09/2023 4:21 PM CDT 05/09/2023 4:21 PM CDT Rachel Sanz PA-C LAB - BL OOD ORDERABLES [facility] [address] 1[address] [place] [address] * XR Chest 2 VW (05/09/2023 2:10 PM CDT) Anatomical Region Laterality Modality Chest Computed Radiogr aphy Impressions 05/09/2023 2:47 PM CDT Impression: 1. Suspicious right lower lung mass measuring up to 4.1 cm with a possible left scapular lytic lesion. Recommend CT chest for better characterization. I have personally reviewed the examination and initial interpretation and I agree with the findings. RODRIGUEZ CROWDER MD Narrative 05/09/2023 2:47 PM CDT Examination: ??XR CHEST 2 VIEWS Date: ??05/09/2023 2:10 PM Clinical Information: h/o abnormal bone marrow signal bilat femur; fever; fatigue; N/V; Bone cyst Additional Information: none Comparison: None available Findings: PA and lateral views of chest. No cardiomegaly. No pleural effusion or pneumothorax. Right lower lobe oval mass with an irregular superior border which measures up to 4.1 cm. Possible lytic area of the anterior border of the left scapula. Procedure Note Rodriguez Crowder MD - 05/09/2023 Examination: XR CHEST 2 VIEWS Date: 05/09/2023 2:10 PM Clinical Information: h/o abnormal bone marrow signal bilat femur; fever; fatigue; N/V; Bone cyst Additional Information: none Comparison: None available Findings: PA and lateral views of chest. No cardiomegaly. No pleural effusion or pneumothorax. Right lower lobe oval mass with an irregular superior border which measures up to 4.1 cm. Possible lytic area of the anterior border of the left scapula. Impression: 1. Suspicious right lower lung mass measuring up to 4.1 cm with a possible left scapular lytic lesion. Recommend CT chest for better characterization. I have personally reviewed the examination and initial interpretation and I agree with the findings. RODRIGUEZ CROWDER MD Rachel Sanz PA-C IMG DIAG NOSTIC IMAGING ORDERABLES * MRI IMAGING - HIM SCAN (05/08/2023 12:00 AM CDT) Anatomical Region Laterality Modality Other 05/08/2023 Provider Outside IMG MRI ORDERABLES from Last 3 Months Care Teams Elevator Constructor Supervisor Relationship Specialty Start Date End Date Ondina Chávez MD [facility] [address] [place] [address] PCP - General Family Medicine 05/07/23 Max Lee MD [address] [place] [address] Hematology & Oncology 05/17/23 Igor Myers MD Hematology & Oncology 05/20/23 Donna Ang, RN Specialty Fast Food Worker Hematology & Oncology 05/31/23 Igor Myers MD Assigned Cancer Care Provider 06/01/23 Shiva Kruger MD [facility] [place] [address] Assigned Musculoskeletal Provider 05/18/23
--- OUTSIDE RECORDS SUMMARY | 2023-08-08 18:07 | XMS_ITS | Encounter Summary ---
Author Name Unknown Organization [facility] Address [address] [place] [id number] Care Team Providers Care Line Assigner Name Role Phone Ondina Chávez MD Primary Care Provider [phone] Max Lee MD Unavailable [phone] Igor Myers MD Unavailable Unavaila Donna Hunt RN Unavailable Unavailable Shiva Kruger MD Unavailable [phone] Encounter Details Date Type Department Care Team (Late st Contact Info) Description 05/31/2023 Orders Only [facility] [address] [place] [address] Igor Myers MD Bone cyst Social History Tobacco Use Types Packs/Day Years Used Date Smoking Tobacco: Never Smokeless Tobacco: Never Alcohol Use Standard Drinks/Week Comments Yes 0 (1 standard drink = 0.6 oz pur e alcohol) Social PHQ-2 Answer Date Recorded PHQ-2 Score 0 05/09/2023 Adolescent Education Answer Date Record ed Getting School Help Needed Not on file 05/07 Sex and Gender Information Value Date Recorded Sex Assigned at Not on file Gender Identity Not on file Sexual Orientation Not on file documented as of this encounter Plan of Treatment Not on file documented as of this encounter Goals Goal Patient Goal Type Associated Problems [...] not send urgent or symptomatic messages through [employer]. I will contact scheduling to arrange or make changes in my appointments. Patient will contact clinic and [facility]CC as needed ongoing. documented as of this encounter Visit Diagnoses Diagnosis Bone cyst Cyst of bone (localized), unspecified documented in this encounter Care Teams Line Assigner Relationship Specialty Start Date End Date Ondina Chávez MD [facility] [address] [place] [address] PCP - General Family Medicine 05/07/23 Max Lee MD [address] [place] [address] Hematology & Oncology 05/17/23 Igor Myers MD Hematology & Oncology 05/20/23 Donan Ang, BEATRIZ Specialty Art Class Model Hematology & Oncology 05/31/23 Shiva Kruger MD [facility] [address] [place] [address] Assigned Musculoskeletal Provider 05/18/23 documented as of this encounter
--- OUTSIDE RECORDS SUMMARY | 2023-08-08 18:07 | XMS_ITS | Encounter Summary ---
Author Name Unknown Organization [facility] Address [address] [place] [address] Care Team Providers Care Baby Sitter Name Role Phone Ondina Chávez MD Primary Care Provider [phone] Mxa Lee MD Unavailable [phone] Igor Myers MD Unavailable Unavaila Shiva Huff MD Unavailable Encounter Details Date Type Department Care Team (Latest Contact Info) Description 05/24/2023 Travel Social History Tobacco Use Types Packs/Day Years [...] not send urgent or symptomatic messages through [employer]. I will contact scheduling to arrange or make changes in my appointments. Patient will contact clinic and [facility] as needed ongoing. documented as of this encounter Visit Diagnoses Not on filedocumented in this encounter Care Teams Baby Sitter Relationship Specialty Start Date End Date Ondina Chávez MD [facility] [address] [place] [address] PCP - General Family Medicine 05/07/23 Max Lee MD [address] [place] [address] Hematology & Oncology 05/17/23 Igor Myers MD Hematology & Oncology 05/20/23 Shiva Kruger MD [address] [place] [address] [address] [place] [address] Assigned Musculoskeletal Provider 05/18/23 documented as of this encounter
--- OUTSIDE RECORDS SUMMARY | 2023-08-08 18:07 | XMS_ITS | Encounter Summary ---
Author Name Unknown Organization [facility] Address [address] [place] [address] Care Team Providers Care Test Pilot Name Role Phone Ondina Chávez MD Primary Care Provider [phone] Max Lee MD Unavailable [phone] Igor Myers MD Unavailable Unavaila Shiva Huff MD Unavailable [phone] Reason for Referral * Diagnostic Imaging MRI (Routine) - Authorized Specialty Diagnoses / Procedures Referred By Mikki feliciano Referred To Contact Radiology. 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) Rachel Sanz PA-C [address] [place] [address] Referral ID Status Reason Start Date Expiration Date V isits Requested Visits Authorized [id number] Pending Review 05/13/2023 05/12/2024 1 1 Encounter Details Date Type Department Care Team (Late st Contact Info) Description 05/24/2023 9:45 AM SILK TRIMMER Oncology Visit [facility] [address] [place] [address] Rachel Sanz PA-C [address] [place] [address] Igor Myers MD Cancer related pain (Primary Dx); 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) Social History Tobacco Use Types Packs/Day Years [...] on file documented as of this encounter Last Filed Vital Signs Vital Sign Reading Time Taken Comments Blood Pressure 106/71 05/24/2023 9:36 AM SILK TRIMMER Pulse 70 05/24/2023 9:36 AM SILK TRIMMER Temperature 36.7 ??C (98 ??F) 05/24/2023 9:36 AM SILK TRIMMER Respiratory Rate 16 05/24/2023 9:36 AM SILK TRIMMER Oxygen Saturation 100% 05/24/2023 9:36 AM SILK TRIMMER Inhaled Oxygen Concentration - - Weight 82.3 kg (181 lb 8 oz) 05/24/2023 9:36 AM SILK TRIMMER Height - - Body Mass Index 32.04 05/13/2023 8:55 AM CDT documented in this encounter Progress Notes * Igor Myers MD - 05/24/2023 9:45 AM CST Images from the original note were not included. [facility] Medical Oncology Note Date of visit: May 24, 2023 New Outpatient Clinic Note Assessment: New diagnosis of widespread metastatic malignant melanoma. Unfortunately for Tony, this is a disease for which we don't have a cure. Therefore, the goals of treatment are to help her live as long aspossible, while at the same time have the highest quality of life. The tumor is positive for BRAF V600E mutation. Standard first line therapy in this setting is ipilimumab and nivolumab based on the just published DREAMseq trial. This trial randomized patients with metastatic disease to either first line ipi/nivo followed by combination targeted therapy with BRAF plus MEK inhibitors, vs the opposite sequence. This gives the longest progression free and overall survival. It does have substantial risk of side effects, including rash, diarrhea, electrolyte and liver function abnormalities, fatigue, nausea. About oneout of four patients went ff the regimen due to inability to tolerate the side effects. Tony is 47 and otherwise healthy, so I would like her to get started with ipi/nivo. If she cannot tolerate it, we could consider substituting relatlimab for the ipi,or just giving nivolumab monotherapy. We did review the NCCN 3 guidelines for systemic therapy in this setting, which also include thepossibility of combination targeted therapy with BRAF plus MEK inhibitors. But given the above trial, Tony will have the highest chance of being alive 7 years from now with getting started with Ipi/nivo. Clearly, the idea that a 47-year-old mother of 3 now having a life-threatening disease that carrieswith it a limited life expectancy for the majority of patients is a very difficult thing to process. Given the overall survival of 70% and 5 years with our current approach, I am cautiously optimistic that she will do okay. We will continue to discuss these things at every visit. My heart goes out to her, but the regimen as described above should be very helpful for her . Plan: Brain MRI to complete staging Chemotherapy teaching from [facility] for a ipilimumab and nivolumab Follow-up with Dr. Mcguire's office for evaluation of her biopsy site. This nonsurgeon does not see any stitches to remove today. We will begin OxyContin 10 mg p.o. twice daily with oxycodone for breakthrough pain. This will handle her current analgesic needs. Return to clinic as soon as possible to get started with treatment. Igor Myers MD, MSc payroll examiner [facility] [employer] [facility] [address] [id number] CHIEF COMPLAINT/DIAGNOSIS New dagnosis of widespread metastatic malignant melanoma History of Present Illness: Tony Cota is a 42 year old woman who saw her PMD this summer for her annual physical with no realconcerning medical issues at that time. She then developed left knee and thigh pain and went to [facility] ED 04/03/2023. US was negative for DVT and MRIs were ordered as out-patient. MRI of the left knee 05/03/2023 showed a 5 cm osseous lesion in the distal femur. She was referred to Dr. Harrison Kruger and on 05/13/2023 he performed a biopsy. The original read of the biopsy showed a carcinomaof unclear primary site. Final pathology was reviewed and she was presented at tumor conference 05/22/2023. The consensus was that this was mestatic malignanct melanoma. She is here today to discuss where we go from here regarding management. Interval history current review of symptoms: Tony still has pain in the left proximal leg. It is a lot better since going on oxycodone. There is some tenderness at the scar but not a lot. She still has significant left shoulder pain. Again theoxycodone has been helpful. She is taking roughly 4-5 5 mg tabs daily. She is also take some ibuprofen. She is fatigued. She is still menstruating regularly. She has no sternal pain despite what we see on scans. Emotionally this is obviously pretty difficult. This was all discussed at length. In terms of having other skin lesions, she did have a mole removed in the left eye 27 years ago. She was told it was not cancer but it was removed because it was growing. On ROS in addition to the above Endorses: Denies fevers, chills, NS, HORNER, dysphagia/odynophagia, change in weight, change in appetite, cough, SOB, CP, n/v, abd pain, constipation/diarrhea, hematochezia, dysuria, hematuria, swelling, rashes, lymphadenopathy Past Medical History: I have reviewed this patient's past medical history Past Medical History: Diagnosis Date Bone cyst of femur Essential hypertension Past Surgical History: This patient has no significant past surgical history Social History: Tobacco, ETOH, and rec drugs reviewed and as noted below with the following exceptions: Tony grew up in [place], [place] and graduated from high school in 1995. Her soon-to-be Francis was also in that class, though they were not high school sweetheart's. She then went to the [employer] where she majored in both business and communications. 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 She has 3 children, Gloria who is 17, Doris who is 15, and Magdy who is 12. They all are very into sports. She ingestant metduring the second year of college. They in the year 1999 after graduation for both. They currently live in [place]. Francis works for [employer] as a leader of a [employer] division. They love live music. She likes to [employer] as well. Family History: No family history on file. Medications: Current Outpatient Medications Medication Sig Dispense Refill acetaminophen (TYLENOL) 500 MG tablet Take 500-1,000 mg by mouth every 6 hours as needed for mild pain diazepam (VALIUM) 5 MG tablet Do no take until instructed by staff at appointment. 1 tablet 0 ibuprofen (ADVIL/MOTRIN) 200 MG tablet Take 200 mg by mouth every 4 hours as needed for pain lisinopril-hydrochlorothiazide (ZESTORETIC) 10-12.5 MG tablet Take 1 tablet by mouth every morning omeprazole 20 MG tablet Take 20 mg by mouth ondansetron (ZOFRAN ODT) [address] 4 mg under the tongue every 8 hours as needed oxyCODONE (ROXICODONE) 5 MG tablet Take 1-2 tablets (5-10 mg) by mouth every 6 hours as needed for pain 40 tablet 0 oxyCODONE (ROXICODONE) 5 MG tablet Take 1-2 tablets (5-10 mg) by mouth every 4 hours as needed for moderate to severe pain 12 tablet 0 oxyCODONE (ROXICODONE) 5 MG tablet Take 5 mg by mouth every 6 hours as needed traZODone (DESYREL) 50 MG tablet Take 50 mg by mouth at bedtime Physical Exam: Last menstrual period 05/13/2023, not currently . ECOG PS: 1 Constitutional: WDWN female in NAD, pleasant and appropriate HEENT: NC/AT, no icterus, OP clear, MMM Skin: No jaundice nor ecchymoses Lungs: CTAB, no w/r/r, nonlabored breathing Cardiovascular: RRR, S1, S2, no m/r/g Abdomen: +BS, soft, nontender, nondistended, no organomegaly. In the suprapubic area just left of midline, there is a 8-10 cm mass noted with minimal palpation. MSK/Extremities: Warm, well perfused. No edema. Biopsy site shows a well approximated wound with nosign of infection or hemorrhage or erythema. LN: no cervical, supraclavicular, axillary, nor inguinal lymphadenopathy Neurologic: alert, answering questions appropriately, moving all extremities spontaneously. CN 2-12grossly intact. Psych: appropriate affect Data: BIOPSY PATH: Final Diagnosis A, B. Bone, left femur tumor, biopsy: - Metastatic high grade malignancy most consistent with melanoma The biopsied tissue shows sheets of monotonous [...] consistent with and support the above diagnosis. Recent Labs Lab Test 05/09/23 1621 WBC 7.9 NEUTROPHIL 72 HGB 10.2* PLT 460* Recent Labs Lab Test 05/09/23 1621 NA 133* POTASSIUM 3.3* CHLORIDE 90* CO2 25 ANIONGAP 18* BUN 14.1 CR 0.73 EVAN 10.1* No results for input(s): MAG, PHOS, LDH, URIC in the last [id number] hours. Recent Labs Lab Test 05/09/23 1621 BILITOTAL 0.4 ALKPHOS 110* ALT 16 AST 25 ALBUMIN 4.1 @LABRCNT(PSAtumormarker:7) No results found for this or any previous visit (from the past 24 hour(s)). Other Data CT/PET 05/15/2023 1. Heterogeneous solid cystic hypermetabolic pelvic mass [...] pelvis may be helpful for further characterization. Labs, imaging and treatment plan reviewed with patient. All questions answered. 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 Estimated body mass index is 32.04 kg/m?? as calculated from the following: Height as of 05/13/23: 1.603 m (5' 3.11). Weight as of this encounter: 82.3 kg (181 lb 8 oz). Body surface area is 1.91 meters squared. Mild Pain (3) Comment: constant Patient's last menstrual period was 05/13/2023 (approximate). Allergies reviewed: Yes Medications reviewed: Yes Medications: Medication refills not needed today. Pharmacy name entered into [facility]: [id number] - [address] [id number] - [place] [address] Clinical concerns: Pt is experiencing mild pain in their left thigh (where biopsy was performed) and left shoulder. Pain is constant and rated a 3 after taking pain meds. Before meds pain would be 8 or 9. 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 I will contact scheduling to arrange or make changes in my appointments. Patient will contact clinic and RNCC as needed ongoing. 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
--- OUTSIDE RECORDS SUMMARY | 2023-08-08 18:07 | XMS_ITS | Encounter Summary ---
Author Name Unknown Organization [facility] Address [address] [place] [address] Care Team Providers Care Home Service Director Name Role Phone Ondina Chávez MD Primary Care Provider [phone] Max Lee MD Unavailable [phone] Igor Myers MD Unavailable Unavaila Donna Hunt RN Unavailable Unavailable Igor Myers MD Unavailable Unavaila Shiva Huff MD Unavailable [phone] Reason for Visit * Reason Onset Date Comments Prior Auth - Medication 05/28/2023 OxyConti n 10mg ER -[place] denied Encounter Details Date Type Department Care Team (Late st Contact Info) Description 05/28/2023 [facility] [address] [place] [address] Igor Myers MD Prior Auth - Medication (OxyContin 10mg ER -[place] denied) Social History Tobacco Use Types Packs/Day Years [...] on file documented as of this encounter Miscellaneous Notes * Telephone Encounter - Cherelle Causey - 05/30/2023 3:49 PM CST Images from the original note were not included. PRIOR AUTHORIZATION DENIED Medication: OXYCONTIN 10 MG PO T12A [facility] - Denial Date: 04/28/2023 Denial Rational: Excluded from coverage Appeal Information: RY DRILL OPERATOR HELPER * Telephone Encounter - Cherelle Causey - 05/29/2023 7:26 AM CST Images from the original note were not included. Central Prior Authorization Team PA Initiation Medication: OXYCONTIN 10 MG PO T12A Insurance [facility] - Pharmacy Filling the Rx: [id number] [place] [id number] Filling Pharmacy Filling Pharmacy Fax: Start Date: 05/29/2023 RY DRILL OPERATOR HELPER * Telephone Encounter - Taisha Goldstein LPN - 05/28/2023 7:21 PM CST Fax received from [facility] Prior auth need for OxyContin 10mg ER to be used to cancer related pain [employer] on fax: [id number] Payer Info: Carrier: [facility] Plan Name: [employer] [facility] ID# [id number] [facility] [id number] [facility] [id number] RY DRILL OPERATOR HELPER documented in this encounter Plan of Treatment Not on file documented as of this encounter Goals Goal Patient Goal Type Associated Problems Recent Progress Patient-Stated? Author Other General Yes Isis Hawthorne RN Note: Goal Statement: I will use my [...] not send urgent or symptomatic messages through [employer]. I will contact scheduling to arrange or make changes in my appointments. Patient will contact clinic and RNCC as needed ongoing. documented as of this encounter Visit Diagnoses Not on filedocumented in this encounter Care Teams Home Service Director Relationship Specialty Start Date End Date Ondina Chávez MD [address] [address] PCP - General Family Medicine 05/07/23 Max Lee MD [address] [place] [address] Hematology & Oncology 05/17/23 Igor Myers MD Hematology & Oncology 05/20/23 Donna Ang, BEATRIZ Specialty Framing Mill Operator Helper Hematology & Oncology 05/31/23 Igor Myers MD Assigned Cancer Care Provider 06/01/23 Shiva Kruger MD [address] [place] [address] [address] [place] [address] Assigned Musculoskeletal Provider 05/18/23 documented as of this encounter
--- OUTSIDE RECORDS SUMMARY | 2023-08-08 18:07 | XMS_ITS | Encounter Summary ---
Author Name Unknown Organization [facility] Address [address] [place] [address] Care Team Providers Care Electrical Intern Name Role Phone Ondina Chávez MD Primary Care Provider [phone] Max Lee MD Unavailable [phone] Igor Myers MD Unavailable UnavailDonna Forde RN Unavailable Unavailable Igor Myers MD Unavailable Unavaila Shiva Huff MD Unavailable [phone] Encounter Details Date Type Department Care Team (Late st Contact Info) Description 05/24/2023 [facility] [address] [place] [address] Shiva Kruger MD [address] [place] [address] Social History Tobacco Use Types Packs/Day Years [...] Patient-Stated? Author Other General Yes Isis Hawthorne, RN Note: Goal Statement: I will use [...] not send urgent or symptomatic messages through [employer]. I will contact scheduling to arrange or make changes in my appointments. Patient will contact clinic and RNCC as needed ongoing. documented as of this encounter Visit Diagnoses Not on filedocumented in this encounter Care Teams Electrical Intern Relationship Specialty Start Date End Date Ondina Chváez MD [facility] [address] [place] [address] PCP - General Family Medicine 05/07/23 Max Lee MD [address] [place] [address] Hematology & Oncology 05/17/23 Igor Myers MD Hematology & Oncology 05/20/23 Donna Ang, BEATRIZ Specialty Jumbo Operator Hematology & Oncology 05/31/23 Igor Myers MD Assigned Cancer Care Provider 06/01/23 Shiva Kruger MD [facility] [place] [address] Assigned Musculoskeletal Provider 05/18/23 documented as of this encounter
--- OUTSIDE RECORDS SUMMARY | 2023-08-08 18:07 | XMS_ITS | Referral Summary ---
Author Name Unknown Organization Levels Address [address] [place] [address] Care Team Providers Care Stamp Press Operator Name Role Phone Ondina Chávez MD Primary Care Provider Max Lee MD Unavailable [phone] Igor Myers MD Unavailable UnavailDonna Forde RN Unavailable Unavailable Igor Myers MD Unavailable Unavaila Shiva Huff MD Unavailable [phone] Encounters Date Type Department Care Team Description 05/31/2023 Orders Only [facility] Cancer [address] [phone] Igor Myers MD Bone cyst 05/28/2023 Telephone [facility] Cancer [address] [phone] Igor Myers MD Prior Auth - Medication (OxyContin 10mg ER -PA denied) 05/28/2023 MyC Medical Advice [facility] Cancer [address] [phone] Igor Myers MD 05/24/2023 MyC Medical Advice [facility] [address] 4th [place] [address] Shiva Kruger MD 05/24/2023 Travel 05/24/2023 9:45 AM VICE PRESIDENT NETWORK Oncology Visit [facility] Cancer [address] [phone] Rachel Sanz PA-C Bloom, Stuart Hunegs, MD Cancer related pain (Primary Dx); 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) 05/23/2023 Tumor Conference [facility] - Cancer Care Service Line [facility] [place] [place] [phone] Demetrice Harrison MD 05/22/2023 Travel 05/22/2023 Orders Only [facility] Cancer [address] [phone] Igor Myers MD Metastatic malignant melanoma (H) (Primary Dx) 05/22/2023 PRE VISIT [facility] Cancer [address] [phone] Max Lee MD *-*INCOMING RECORDS*-* 05/21/2023 Travel 05/21/2023 12:30 PM VICE PRESIDENT NETWORK Office Visit [facility] Radiation Oncology [address] [facility], 1st [place] [phone] Rachel Sanz PA-C Reynolds, Margaret A, MD Nurse, [facility] Rad Onc Cancer related pain (Primary Dx); 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) 05/21/2023 PRE VISIT [facility] Radiation Oncology [address] [facility], 1st [place] [phone] Zuleika Rogers MD *-*INCOMING RECORDS*-* 05/20/2023 MyC Medical Advice [facility] Cancer [address] [phone] Ana Black 05/20/2023 MyC Medical Advice [facility] [address]th [place] [phone] Shiva Kruger MD 05/20/2023 Travel 05/16/2023 Orders Only [facility] [address] [phone] Shiva Kruger MD 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) (Primary Dx) 05/15/2023 Travel 05/15/2023 10:12 AM CDT - 05/15/2023 11:59 PM CDT Hospital Encounter [facility] Imaging [address] [place] [address] Rachel Sanz PA-C 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) Discharge Disposition: Home or Self Care 05/14/2023 MyC Medical Advice [facility] [address] [phone] Shiva Kruger MD 05/14/2023 MyC Refill [address] [phone] Shiva Kruger MD History of claustrophobia (Primary Dx) 05/14/2023 MyC Refill [facility] [address] [phone] Patria Tidwell RN 05/14/2023 Orders Only [address] [phone] Rachel Sanz PA-C Claustrophobia (Primary Dx) 05/13/2023 MyC Medical Advice [address] [phone] Patria Tidwell, BEATRIZ 05/13/2023 Orders Only [facility] [address] [phone] Rachel Sanz PA-C 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) (Primary Dx) 05/13/2023 Travel 05/13/2023 11:30 AM CDT - 05/13/2023 1:10 PM CDT Surgery [facility] PeriOp Services [address] [facility] [phone] Shiva Kruger MD Biopsy left distal femur 05/13/2023 12:43 PM CDT Anesthesia Event [facility] [address] [place] [address] [place] [phone] Suleiman Sanz MD Essler, Stacia M, HVAC/R INSTRUCTOR SPRING TIER 05/13/2023 8:43 AM CDT - 05/13/2023 11:59 PM CDT Hospital Encounter [facility] PACU [address] [place] [phone] Shiva Kruger MD Bone cyst (Primary Dx); 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) Discharge Disposition: Home or Self Care 05/10/2023 Telephone [facility] [address] [place] [address] Rachel Sanz PA-C 05/10/2023 Telephone [facility] [address] [phone] Shiva Kruger MD Schedule Surgery (Dr. Kruger) 05/10/2023 Orders Only [facility] Interventional Radiology [address] [place] [phone] Zuri Pizarro, GAIL SPRING TIER Bone cyst 05/09/2023 4:45 PM CDT Lab [facility] [address] [place] [phone] Bone cyst; Primary hypertension 05/09/2023 2:00 PM CDT Ancillary Procedure [facility] Xray [address] [place] [phone] Rachel Sanz, PAMiguelinaC Bone cyst 05/09/2023 3:30 PM CDT Office Visit [facility] [address] 5th [place] [phone] Lily Meyers, GAIL SPRING TIER Preop examination (Primary Dx); Primary hypertension 05/09/2023 Travel 05/09/2023 PRE VISIT [facility] [address] [place] [phone] Shiva Kruger MD Previsit 05/09/2023 1:00 PM CDT Office Visit [facility] [address] [place] [phone] Shiva Kruger MD Bone cyst (Primary Dx) from Last 3 Months Allergies No known [...] Metastatic malignant melanoma 05/22/2023 Bone cyst 05/09/2023 Social History Tobacco Use Types Packs/Day Years [...] Comments Blood Pressure 106/71 05/24/2023 9:36 AM VICE PRESIDENT NETWORK Pulse 70 05/24/2023 9:36 AM VICE PRESIDENT NETWORK Temperature 36.7 ??C (98 ??F) 05/24/2023 9:36 AM VICE PRESIDENT NETWORK Respiratory Rate 16 05/24/2023 9:36 AM VICE PRESIDENT NETWORK Oxygen Saturation 100% 05/24/2023 9:36 AM VICE PRESIDENT NETWORK Inhaled Oxygen Concentration - - Weight 82.3 kg (181 lb 8 oz) 05/24/2023 9:36 AM VICE PRESIDENT NETWORK Height 160.3 cm (5' 3.11) 05/13/2023 8:55 AM CD T Body Mass Index 32.04 05/13/2023 8:55 AM CDT Plan of Treatment Not on file Goals Goal Patient Goal Type Associated Problems [...] not send urgent or symptomatic messages through [facility]. I will contact scheduling to arrange or [...] CDT Primary hypertension PROTEIN ELECTROPHORESIS Routine 05/09/20 23 4:21 PM CDT Bone cyst CBC WITH [...] JJ FLOYD DO Rachel Cecelia Sanz PA-C [facility] PET ORDERABLES * CT Chest/Abdomen/Pelvis w Contrast [...] findings. JJ FLOYD DO Rachel Sanz PA-C IMG CT O RDERABLES * [...] or part of chromosome 22. ISCN: nuc homero(EAQV6w2)[81/ 200]/(QTPQ9i1)[6 0/200]/(HFRM6d3) [48/200] ADDITIONAL COMMENTS: Control ranges: EWSR1 rearr: 0-0.1% PIAU7v2: 0-3.4% ODCX9e1: 0-1.8% VMLB3l6: 0-0.1% Analyte Specific Reagents (ASRs) are used in many laboratory tests necessary for standard medical care and generally do not require FDA approval. This test was developed and its performance characteristics determined by the [facility], [facility]. It has not been cleared or approved by the U.S. Food and Drug Administration. . 05/21/2023 5:03 PM [facility] Bone Biopsy STRUCTURE OF LEFT FEMUR / Unknown 05/13/2023 1:39 PM CDT 05/17/2023 4:50 PM CDT Shiva Kruger MD [facility] Organization Address City/State/[facility] Co de Phone Number CYTOGENETICS [facility] Cytogenetics Lab 6 [facility] Room 15[address] [phone] * MTB Complex and Resistance (05/13/2023 1:32 PM CDT) Pathologist [facility] Mycobacterium Tuberculosis PCR Not Detected 05/16/2023 3:20 AM CDT [facility] MTB Rifampin Resistance by PCR Not Applicable 05/16/2023 3:20 AM CDT [facility] MTB Complex Interpretation Not Detected 05/16/2023 3:20 AM CDT [facility] Comment: MTB target is not detected within the sample. INTERPRETIVE INFORMATION: Mycobacterium tuberculosis Complex Detection and Rifampin Resistance by PCR Mycobacterial culture is a more sensitive method than molecular testing for the diagnosis of tuberculosis and is still considered the gold standard. When possible, a culture must be performed regardless of the molecular method test result. Performed By: [facility] [address] [place] [address] President: Ventura Adrian MD, PhD CLIA Number: [id number] Bone Biopsy STRUCTURE OF LEFT FEMUR / Unknown Non-blood Collection / Unknown 05/13/2023 1:32 PM CDT 05/13/2023 1:58 PM CDT Shiva Kruger MD LAB - BLOOD ORDER DANIEL [facility] [address] [place] [address], [facility] [phone] * Bone Biopsy Aerobic Bacterial Culture Routine (05/13/2023 1:32 PM CDT) Culture No Growth BRADLY 05/19/2023 7:06 AM VICE PRESIDENT NETWORK [facility] Bone Biopsy STRUCTURE OF LEFT FEMUR / Unknown Non-blood Collection / Unknown 05/13/2023 1:32 PM CDT 05/13/2023 1:58 PM CDT Shiva Kruger MD LAB - MICRO GENER AL ORDERABLES Performing Organization Address City/[facility] Co de Phone Number [facility] Inf. Diseases Diag. Lab [address] [facility], Room [address] [address], [facility] [phone] * Fungal or Yeast Culture Routine (05/13/2023 1:32 PM CDT) Culture No Growth BRADLY 06/10/2023 7:35 AM VICE PRESIDENT NETWORK [facility] Bone Biopsy STRUCTURE OF LEFT FEMUR / Unknown Non-blood Collection / Unknown 05/13/2023 1:32 PM CDT 05/13/2023 1:58 PM CDT Shiva Kruger MD LAB - MICRO GENER AL ORDERABLES Performing Organization Address City/[facility]/ZIP Co de Phone Number [facility] Inf. Diseases Diag. Lab [address] [facility], [address] [address], [facility] [phone] * Anaerobic Bacterial Culture Routine (05/13/2023 1:32 PM CDT) Culture No anaerobic organisms isolated BRADLY 05/20/2023 9:34 AM VICE PRESIDENT NETWORK [facility] Bone Biopsy STRUCTURE OF LEFT FEMUR / Unknown Non-blood Collection / Unknown 05/13/2023 1:32 PM CDT 05/13/2023 1:58 PM CDT Shiva Kruger MD LAB - MICRO GENER AL ORDERABLES [facility] Inf. Diseases Diag. Lab [address] [facility], [address] [place] [address], [facility] [phone] * (ABNORMAL) Surgical Pathology Exam (05/13/2023 1:26 PM CDT) Case Report Surgical Pathology Report ? Case: [id number] ? Authorizing Provider: ??Shiva Kruger MD ?? [...] if ? needed ? 3 6:13 PM [facility] Addendum FISH test demonstrates no evidence of EWSR1 gene rearrangement, rendering the possibility of clear cell sarcoma unlikely. The original final diagnosis of melanoma is therefore unchanged. 3 6:13 PM [facility] Addendum electronically signed by La Nena Velarde MD on 05/21/2023 at 6:13 PM Final Diagnosis A, B. Bone, left femur tumor, biopsy: - Metastatic high grade malignancy most consistent with melanoma - See comment 3 6:13 PM [facility] Comment:This is an appended report. [...] reported in an addendum. 3 6:13 PM [facility] Comment:This is an appended report. These results have been appended to a previously preliminary verified report. Clinical Information History of a heterogeneous solid cystic hypermetabolic pelvic mass abutting the uterus and cecum, multiple lytic osseous and pulmonary metastatic lesions, and a right renal cortical soft tissue nodule. 3 6:13 PM [facility] Comment:This is an appended report. These results have been appended to a previously preliminary verified report. Intraoperative Consultation A(1). Femur, Left, Left femur tumor: AFS1: Metastatic carcinoma 3 6:13 PM [facility] Gross Description A(1). Femur, Left, [...] (decal) B2-B3: Soft tissue 3 6:13 PM VICE PRESIDENT NETWORK [facility] Comment:This is an appended report. These [...] determine the final diagnosis. 3 6:13 PM [facility] Comment:This is an appended report. These results have been appended to a previously preliminary verified report. Disclaimer Analyte Specific Reagents (ASRs) are used in many laboratory tests necessary for standard medical care and generally do not require FDA approval. This test was developed and its performance characteristics determined by [facility]. It has not been cleared or approved by the U.S. Food and Drug Administration. [facility] are certified for the performance of high-complexity clinical testing under the Clinical Laboratory Improvement Amendments of 1988 (CLIA), and in keeping with the certification requirements, the laboratory has verified this test's accuracy, precision and/or validity of the method. 3 6:13 PM [facility] Comment:This is an appended report. These results have been appended to a previously preliminary verified report. MCRS Yes(A) N/A 3 6:13 PM [facility] Comment:This is an appended report. These results have been appended to a previously preliminary verified report. Performing Labs The technical component of this testing was completed at [facility] 3 6:13 PM [facility] Comment:This is an appended report. These results have been appended to a previously preliminary verified report. Case Images 3 6:13 PM [facility] Bone Biopsy STRUCTURE OF LEFT FEMUR / Unknown 05/13/2023 1:26 PM CDT 05/13/2023 1:36 PM CDT Bone biopsy specimen (specimen) STRUCTURE OF LEFT FEMUR / Unknown 05/13/2023 1:39 PM CDT 05/13/2023 2:17 PM CDT Shiva [facility] Specialty Lab 500 [facility] J [facility], Room [address] [place] [address] [phone] UR LABORATORY [facility] Acute Care Lab [address] [facility], [address] [place] [address], [facility] [phone] * ANE AIRWAY ETT PERFORMABLE (05/13/2023 1:12 PM CDT) Narrative Emelia Bermduez APRN COMPLIANCE REVIEW SPECIALIST - 05/13/2023 1:12 PM CDT Emelia Bermudez APRN COMPLIANCE REVIEW SPECIALIST ? 05/13/2023 ??1:13 PM Airway ? Patient [...] easy ? Dentition: Intact Suleiman Sanz MD IN ANESTHESIA * (ABNORMAL) Protein Electrophoresis, Serum (05/09/2023 4:21 PM CDT) Albumin 3.5(L) 3.7 - 5.1 g/dL 05/10/2023 1:06 PM CDT SPECIALTY CORE/PROT/E NDO Alpha 1 0.6(H) 0.2 - 0.4 g/dL 05/10/2023 1:06 PM CDT SPECIALTY CORE/PROT/E NDO Alpha 2 1.3(H) 0.5 - 0.9 g/dL 05/10/2023 1:06 PM CDT [facility] SPECIALTY CORE/PROT/E NDO Beta Globulin 1.0 0.6 - 1.0 g/dL 05/10/2023 1:06 PM CDT [facility] SPECIALTY CORE/PROT/E NDO Gamma Globulin 1.4 0.7 - 1.6 g/dL 05/10/2023 1:06 PM CDT [facility] SPECIALTY CORE/PROT/E NDO Monoclonal Peak 0.0 <=0.0 g/dL 05/10/2023 1:06 PM CDT [facility] SPECIALTY CORE/PROT/E NDO ELP Interpretation Hypoalbuminemia with [...] OOD ORDERABLES SPECIALTY CORE/PROT/ENDO Specialty Core/Prot/Endo 500 [facility], [address] [phone] * Total Protein, Serum for ELP (05/09/2023 4:21 PM CDT) Total Protein Serum for ELP 7.9 6.4 - 8.3 g/dL 05/10/2023 3:42 AM CDT [facility] Blood STRUCTURE OF LEFT UPPER LIMB / Unknown Venipuncture / Unknown 05/09/2023 4:21 PM CDT 05/09/2023 4:21 PM CDT Rachel Sanz PA-C LAB - BL OOD ORDERABLES [facility] [place] [facility] 500 [facility], [address] [phone], [facility] [phone] * (ABNORMAL) CBC with platelets and differential (05/09/2023 4:21 PM CDT) [facility] WBC Count 7.9 4.0 - 11.0 10e3/uL 05/09/2023 4:25 PM CDT [facility] [place] [place] [facility] - CORE LAB RBC Count 3.37(L) 3.80 - 5.20 10e6/uL 05/09/2023 4:25 PM CDT [facility] [place] [place] [facility] - CORE LAB Hemoglobin 10.2(L) 11.7 - 15.7 g/dL 05/09/2023 4:25 PM CDT [facility] [place] [place] [facility] - CORE LAB Hematocrit 30.2(L) 35.0 - 47.0 % 05/09/2023 4:25 PM CDT [facility] [place] [place] [facility] - CORE LAB MCV 90 78 - 100 fL 05/09/2023 4:25 PM CDT [facility] [place] [place] [facility] - CORE LAB MCH 30.3 26.5 - 33.0 pg 05/09/2023 4:25 PM CDT [facility] [place] [place] [facility] - CORE LAB MCHC 33.8 31.5 - 36.5 g/dL 05/09/2023 4:25 PM CDT [facility] [place] [place] [facility] - CORE LAB RDW 13.4 10.0 - 15.0 % 05/09/2023 4:25 PM CDT [facility] [place] [place] [facility] - CORE LAB Platelet Count 460(H) 150 - 450 10e3/uL 05/09/2023 4:25 PM CDT [facility] [place] [place] [facility] - CORE LAB % Neutrophils 72 % 05/09/2023 4:25 PM CDT [facility] [place] [place] [facility] - CORE LAB % Lymphocytes 19 % 05/09/2023 4:25 PM CDT [facility] [place] [place] [facility] - CORE LAB % Monocytes 9 % 05/09/2023 4:25 PM CDT [facility] [place] [place] [facility] - CORE LAB % Eosinophils 0 % 05/09/2023 4:25 PM CDT [facility] [place] [place] [facility] - CORE LAB % Basophils 0 % 05/09/2023 4:25 PM CDT [facility] [place] [place] [facility] - CORE LAB % Immature Granulocytes 0 % 05/09/2023 4:25 PM CDT [facility] [place] [place] [facility] - CORE LAB NRBCs per 100 WBC 0 <1 /100 023 4:25 PM CDT [facility] [place] [place] [facility] - CORE LAB Absolute Neutrophils 5.6 1.6 - 8.3 10e3/uL 05/09/2023 4:25 PM CDT [facility] [place] [place] [facility] - CORE LAB Absolute Lymphocytes 1.5 0.8 - 5.3 10e3/uL 05/09/2023 4:25 PM CDT [facility] [place] [place] [facility] - CORE LAB Absolute Monocytes 0.7 0.0 - 1.3 10e3/uL 05/09/2023 4:25 PM CDT [facility] [place] [place] [facility] - CORE LAB Absolute Eosinophils 0.0 0.0 - 0.7 10e3/uL 05/09/2023 4:25 PM CDT [facility] [place] [place] [facility] - CORE LAB Absolute Basophils 0.0 0.0 - 0.2 10e3/uL 05/09/2023 4:25 PM CDT [facility] [place] [place] [facility] - CORE LAB Absolute Immature Granulocytes 0.0 <=0.4 10e3/uL 05/09/2023 4:25 PM CDT [facility] [place] [place] [facility] - CORE LAB Absolute NRBCs 0.0 10e3/uL 05/09/2023 4:25 PM CDT [facility] [place] [place] [facility] - CORE LAB Blood STRUCTURE OF LEFT UPPER LIMB / Unknown Venipuncture / Unknown 05/09/2023 4:21 PM CDT 05/09/2023 4:21 PM CDT Rachel Sanz PA-C LAB - BL OOD ORDERABLES [facility] [place] [place] [facility] - CORE LAB [address] 1st [place] [address] * Adult Type and Screen (05/09/2023 4:21 PM CDT) ABO/RH(D) O NEG 05/08/2023 7:00 PM CDT [facility] Antibody Screen Negative Negative 05/08/2023 7:00 PM CDT U BLOOD BANK SPECIMEN EXPIRATION DATE [id number] 05/08/2023 7:00 PM CDT U BLOOD BANK Blood STRUCTURE OF LEFT UPPER LIMB / Unknown Venipuncture / Unknown 05/09/2023 4:21 PM CDT 05/09/2023 4:21 PM CDT Lily M Essler HVAC/R INSTRUCTOR SPRING TIER LAB - BLOOD BAN K TEST ORDER BLOOD BANK [address] [place] [address] * (ABNORMAL) [place] and lambda light chain (05/09/2023 4:21 PM CDT) [place] Free Light Chains 4.33(H) 0.33 - 1.94 mg/dL 05/10/2023 11:06 AM CDT SPECIALTY CORE/PROT/ENDO [place] Free Light Chains 2.91(H) 0.57 - 2.63 mg/dL 05/10/2023 11:06 AM CDT SPECIALTY CORE/PROT/ENDO [place] /Lambda Ratio 1.49 0.26 - 1.65 05/10/2023 11:06 AM CDT SPECIALTY CORE/PROT/ENDO Blood STRUCTURE OF LEFT UPPER LIMB / Unknown Venipuncture / Unknown 05/09/2023 4:21 PM CDT 05/09/2023 4:21 PM CDT Rachel Sanz PA-C LAB - BL OOD ORDERABLES SPECIALTY CORE/PROT/ENDO Specialty Core/Prot/Endo 500 [facility] J Building, Room [address] [phone] * (ABNORMAL) Erythrocyte sedimentation rate auto (05/09/2023 4:21 PM CDT) Erythrocyte Sedimentation Rate 100(H) 0 - 20 mm/hr 05/09/2023 4:32 PM CDT [facility] [place] [place] [facility] - CORE LAB Blood STRUCTURE OF LEFT UPPER LIMB / Unknown Venipuncture / Unknown 05/09/2023 4:21 PM CDT 05/09/2023 4:21 PM CDT Rachel Sanz PA-C LAB - BL OOD ORDERABLES [facility] [place] [place] [facility] - CORE LAB [facility] [address] 1st [place] [address] * (ABNORMAL) CRP inflammation (05/09/2023 4:21 PM CDT) Pathologist [facility] CRP Inflammation 75.60(H) <5.00 mg/L 05/09/2023 4:57 PM CDT [facility] [place] [place] [facility] - CORE LAB Blood STRUCTURE OF LEFT UPPER LIMB / Unknown Venipuncture / Unknown 05/09/2023 4:21 PM CDT 05/09/2023 4:21 PM CDT Rachel Sanz PA-C LAB - BL OOD ORDERABLES [facility] [place] [place] [facility] - CORE LAB [facility] [address] [place] [address] * (ABNORMAL) Comprehensive metabolic panel (05/09/2023 4:21 PM CDT) [facility] Sodium 133(L) 135 - 145 mmol/L 05/09/2023 4:57 PM CDT [facility] [place] [place] [facility] - CORE LAB Comment:Reference intervals for this test were updated on 04/09/2023 to more accurately reflect our healthy population. There may be differences in the flagging of prior results with similar values performed with this method. Interpretation of those prior results can be made in the context of the updated reference intervals. Potassium 3.3(L) 3.4 - 5.3 mmol/L 05/09/2023 4:57 PM CDT [facility] [place] [place] [facility] - CORE LAB Carbon Dioxide (CO2) 25 22 - 29 mmol/L 05/09/2023 4:57 PM CDT [facility] [place] [place] [facility] - CORE LAB Anion Gap 18(H) 7 - 15 mmol/L 05/09/2023 4:57 PM CDT [facility] [place] [place] [facility] - CORE LAB Urea Nitrogen 14.1 6.0 - 20.0 mg/dL 05/09/2023 4:57 PM CDT [facility] [place] [place] [facility] - CORE LAB Creatinine 0.73 0.51 - 0.95 mg/dL 05/09/2023 4:57 PM CDT [facility] [place] [place] [facility] - CORE LAB GFR Estimate >90 >60 mL/min/1. 73m2 05/09/2023 4:57 PM CDT [facility] [place] [place] [facility] - CORE LAB Calcium 10.1(H) 8.6 - 10.0 mg/dL 05/09/2023 4:57 PM CDT [facility] [place] [place] [facility] - CORE LAB Chloride 90(L) 98 - 107 mmol/L 05/09/2023 4:57 PM CDT [facility] [place] [place] [facility] - CORE LAB Glucose 95 70 - 99 mg/dL 05/09/2023 4:57 PM CDT [facility] [place] [place] [facility] - CORE LAB Alkaline Phosphatase 110(H) 35 - 104 U/L 05/09/2023 4:57 PM CDT [facility] [place] [place] [facility] - CORE LAB AST 25 0 - 45 U/L 05/09/2023 4:57 PM CDT [facility] [facility] [place] [place] [facility] Comment:Reference intervals for this test were updated on 12/24/2022 to more accurately reflect our healthy population. There may be differences in the flagging of prior results with similar values performed with this method. Interpretation of those prior results can be made in the context of the updated reference intervals. ALT 16 0 - 50 U/L 05/09/2023 4:57 PM CDT [facility] [place] [place] [facility] Comment:Reference intervals for [...] - 8.3 g/dL 05/09/2023 4:57 PM CDT [facility] [place] [place] [facility] Albumin 4.1 3.5 - 5.2 g/dL 05/09/2023 4:57 PM CDT [facility] [place] [place] [facility] Bilirubin Total 0.4 <=1.2 mg/dL 05/09/2023 4:57 PM CDT [facility] [place] [place] [facility] Blood STRUCTURE OF LEFT UPPER LIMB / Unknown Venipuncture / Unknown 05/09/2023 4:21 PM CDT 05/09/2023 4:21 PM CDT Rachel Sanz PA-C LAB - BL OOD ORDERABLES [facility] [place] [place] [facility] [address] 1st [place] [address] * XR Chest 2 VW (05/09/2023 2:10 [...] ORDERABLES from Last 3 Months Care Teams Stamp Press Operator Relationship Specialty Start Date End Date Ondina Chávez MD [facility] [address] [place] [address] PCP - General Family Medicine 05/07/23 Max Lee MD [address] [place] [address] Hematology & Oncology 05/17/23 Igor Myers MD Hematology & Oncology 05/20/23 Donna Ang, BEATRIZ Specialty Pill Maker Hematology & Oncology 05/31/23 Igor Myers MD Assigned Cancer Care Provider 06/01/23 Shiva Kruger MD [facility] [place] [address] Assigned Musculoskeletal Provider 05/18/23
--- OUTSIDE RECORDS SUMMARY | 2023-08-08 18:07 | XMS_ITS | Encounter Summary ---
Author Name Unknown Organization [facility] Address [address] [place] [address] Care Team Providers Care Order Packer Name Role Phone Unavailable Primary Care Provider Unavailabl e Encounter Details Date Type Department Care Team (Late st Contact Info) Description 05/06/2023 Clinical Communication Department of Orthopedic Surgery in [place], [place] [address] [place] [phone] Prescheduling, Provider Social History Tobacco Use Types Packs/Day Years Used Date Smoking Tobacco: Never Assessed Nutrition Answer Date Recorded Nutrition: EVOO Fat Source Unknown 05/06 Nutrition: Servings of Fruits/Vegetables per Day Not on file 05/06/2023 Dental Answer Date Recorded Dental: Regular Dentist Unknown 05/06/20 Sex and Gender Information Value Date Recorded Sex Assigned at Female 05/31/2023 8:26 AM RISK MANAGEMENT INTERN Gender Identity Female 05/31/2023 8:26 AM RISK MANAGEMENT INTERN Sexual Orientation Straight 05/31/2023 8: 26 AM RISK MANAGEMENT INTERN documented as of this encounter Plan of Treatment Upcoming Encounters Date Type Department Care Team (Late st Contact Info) Description 08/19/2023 6:40 AM RISK MANAGEMENT INTERN Appointment Department of Laboratory Medicine and Pathology, [facility], in [place], [place] [address] [place] [phone] Pérez uZniga M.D., Ph.D. [address] [place] [phone] 08/19/2023 7:00 AM RISK MANAGEMENT INTERN Ancillary Procedure Department of Cardiovascular Medicine in [place], [place] [address] [place] [address] Pérez Zuniga M.D., Ph.D. [address] [place] [address] 08/19/2023 9:00 AM RISK MANAGEMENT INTERN Appointment Department of Radiology, [facility] in [place], [place] [address] [place] [address] Pérez Zuniga M.D., Ph.D. [address] [place] [phone] 08/19/2023 3:40 PM RISK MANAGEMENT INTERN Office Visit Department of Oncology in [place], [place] [address] [place] [address] Zhane Granados, RESEARCH CENTER PARTNER, C.N.P. [address] [place] [phone] 08/21/2023 10:15 AM RISK MANAGEMENT INTERN Clinical Support Department of Palliative Care in [place], [place] [address] [place] [address] Serenity Kelsey, P.A.-C. [address] [place] [phone] Meka Rinaldi D.N.P., R.N., [facility] documented as of this encounter Visit Diagnoses Not on filedocumented in this encounter
--- OUTSIDE RECORDS SUMMARY | 2023-08-08 18:07 | XMS_ITS | Encounter Summary ---
Author Name Unknown Organization [facility] Address [address] [place] [address] Care Team Providers Care Math Professor Name Role Phone Unavailable Primary Care Provider Unavailabl e Reason for Referral * MRI/CAT/PET Scan (Routine) - Authorized Specialty Diagnoses / Procedures Referred By Mikki feliciano Referred To Contact Radiology Diagnoses Tumor Bone Procedures CT Bone Biopsy Lacho Joshi M.D. 200 [place] [address] [facility] Referral ID Status Reason Start Date Expiration Date V isits Requested Visits Authorized [id number] Authorized 05/07/2023 05/06/2024 1 1 * Outpatient (Routine) - Authorized Specialty Diagnoses / Procedures Referred By Mikki feliciano Referred To Contact Diagnoses Tumor Bone Procedures DX Femur Left 2 Views Lacho Joshi M.D. [address] [place] [address] [facility] Referral ID Status Reason Start Date Expiration Date V isits Requested Visits Authorized [id number] Authorized 05/07/2023 05/06/2024 1 1 Encounter Details Date Type Department Care Team (Late st Contact Info) Description 05/07/2023 Orders Only Department of Orthopedic Surgery in [place], [place] [address] [place] [phone] Lacho Joshi M.D. [address] [place] [phone] Tumor Bone (Primary Dx) Social History Tobacco Use Types Packs/Day Years Used Date Smoking Tobacco: Never Assessed Nutrition Answer Date Recorded Nutrition: EVOO Fat Source Unknown 05/06 Nutrition: Servings of Fruits/Vegetables per Day Not on file 05/06/2023 Dental Answer Date Recorded Dental: Regular Dentist Unknown 05/06/20 Sex and Gender Information Value Date Recorded Sex Assigned at Female 05/31/2023 8:26 AM READING PROFESSOR Gender Identity Female 05/31/2023 8:26 AM READING PROFESSOR Sexual Orientation Straight 05/31/2023 8: 26 AM READING PROFESSOR documented as of this encounter Plan of Treatment Upcoming Encounters Date Type Department Care Team (Late st Contact Info) Description 08/19/2023 6:40 AM READING PROFESSOR Appointment Department of Laboratory Medicine and Pathology, [facility] in [place], [place] [address] [place] [phone] Pérez Zuniga M.D., Ph.D. [address] [place] [phone] 08/19/2023 7:00 AM READING PROFESSOR Ancillary Procedure Department of Cardiovascular Medicine in [place], [place] [address] [place] [phone] Pérez Zuniga M.D., Ph.D. [address] [place] [phone] 08/19/2023 9:00 AM READING PROFESSOR Appointment Department of Radiology, [facility] in [place], [place] [address] [place] [address] Pérez Zuniga M.D., Ph.D. [address] [place] [phone] 08/19/2023 3:40 PM READING PROFESSOR Office Visit Department of Oncology in [place], [place] [address] [place] [phone] Zhane Granados APRN, C.N.P. [address] [place] [phone] 08/21/2023 10:15 AM READING PROFESSOR Clinical Support Department of Palliative Care in [place], [place] [address] [place] [phone] Serenity Kelsey, PSantoshA.-C. [address] [place] [phone] Meka Rinaldi D.N.P., R.N., [facility] Scheduled Orders Name Type Priority Associated Diagnoses Orde r Schedule DX Femur Left 2 Views Imaging RAD - Routine (most inpatients and all outpatients) Tumor Bone Expected: 05/13/2023, Expires: 08/07/2024 CT Bone Biopsy Imaging RAD - Routine (m ost inpatients and all outpatients) Tumor Bone Expected: 05/13/2023, Expires: 08/07/2024 documented as of this encounter Visit Diagnoses Diagnosis Tumor Bone- Primary documented in this encounter
--- OUTSIDE RECORDS SUMMARY | 2023-08-08 18:07 | XMS_ITS | Encounter Summary ---
Author Name Unknown Organization [facility] Address [address] [place] [address] Care Team Providers Care Mingler Operator Name Role Phone Ondina Chávez MD Primary Care Provider [phone] Max Lee MD Unavailable [phone] Igor Myers MD Unavailable Unavaila Donna Hunt RN Unavailable Unavailable Igor Myers MD Unavailable Unavaila Shiva Huff MD Unavailable [phone] Encounter Details Date Type Department Care Team (Late st Contact Info) Description 05/28/2023 [facility] [address] [place] [phone] Igor Myers MD Social History Tobacco Use Types Packs/Day Years [...] not send urgent or symptomatic messages through [employer]. I will contact scheduling to arrange or make changes in my appointments. Patient will contact clinic and [facility]CC as needed ongoing. documented as of this encounter Visit Diagnoses Not on filedocumented in this encounter Care Teams Mingler Operator Relationship Specialty Start Date End Date Ondina Chávez MD [facility] [address] [place] [address] PCP - General Family Medicine 05/07/23 Max Lee MD [address] [place] [address] Hematology & Oncology 05/17/23 Igor Myers MD Hematology & Oncology 05/20/23 Donna Ang, BEATRIZ Specialty Comb Capper Hematology & Oncology 05/31/23 Igor Myers MD Assigned Cancer Care Provider 06/01/23 Shiva Kruger MD [address] [place] [address] Assigned Musculoskeletal Provider 05/18/23 documented as of this encounter
--- OUTSIDE RECORDS SUMMARY | 2023-08-08 18:07 | XMS_ITS ---
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/09/2023 Current Oncology Plans OP ONC Metastatic Melanoma or Unresectable - Ipilimumab / Nivolumab* Plan Start Date:05/29/2023 Plan Provider:Igor Myers MD Linked Problems Metastatic malignant melanom a (H) Treatment Medications Current Day (Day 1 , Cycle 1 - Planned for 05/29/2023) Next Day (Day 1, Cycle 2 - Planned for 06/19/2023) ipilimumab (YERVOY)nivolumab (OPDIVO) ipilimumab (YERVOY) 240 mg in sodium chloride 0.9 % 198 mL infusionnivolumab (OPDIVO) 80 mg in sodium chloride 0.9 % 58 mL infusion ipilimumab (YERVOY) 240 mg in sodium chloride 0.9 % 198 mL infusionnivolumab (OPDIVO) 80 mg in sodium chloride 0.9 % 58 mL infusion Past Plans No past plan information found. Radiation Treatments * No radiation treatments are documented for this patient in Epic. Treatments may have been administered in another system.
--- OUTSIDE RECORDS SUMMARY | 2023-08-08 18:08 | XMS_ITS | Encounter Summary ---
Author Name Unknown Organization [facility] Address [address] [place] [address] Care Team Providers Care Bundling Machine Operator Name Role Phone Ondina Chávez MD Primary Care Provider [phone] Max Lee MD Unavailable [phone] Igor Myers MD Unavailable Unavaila Shiva Huff MD Unavailable [phone] Encounter Details Date Type Department Care Team (Latest Contact Info) Description 05/22/2023 Travel Social History Tobacco Use Types Packs/Day [...] on file documented as of this encounter Visit Diagnoses Not on filedocumented in this encounter Care Teams Bundling Machine Operator Relationship Specialty Start Date End Date Ondina Chávez MD [facility] [address] [place] [address] PCP - General Family Medicine 05/07/23 Max Lee MD [address] [place] [address] Hematology & Oncology 05/17/23 Igor Myers MD Hematology & Oncology 05/20/23 Shiva Kruger MD [facility] [address] Assigned Musculoskeletal Provider 05/18/23 documented as of this encounter
--- OUTSIDE RECORDS SUMMARY | 2023-08-08 18:08 | XMS_ITS | Encounter Summary ---
Author Name Unknown Organization [facility] Address [address] [place] [address] Care Team Providers Care Viscera Washer Name Role Phone Ondina Chávez MD Primary Care Provider [phone] Max Lee MD Unavailable [phone] Zuleika Rogers MD Unavailable [phone] Igor Myers MD Unavailable Unavaila [facility] Shiva Kruger MD Unavailable [phone] Encounter Details Date Type Department Care Team (Late st Contact Info) Description 05/20/[address] [facility] [address] 4th [place] [address] Shiva Kruger MD [address] [place] [address] Social History Tobacco Use Types [...] encounter Miscellaneous Notes * Telephone Encounter - Nancy Bills RN - 05/20/2023 4:24 PM CST - A call was placed to the patient. - I let patient know the pathology diagnosis was as follows: - Metastatic high grade malignancy most consistent with melanoma They changed her appointments so she would be seeing oncology doctors the specialize in melanoma. I let her know that these doctors will the have more accurate information and to go with questions.She agreed to this. - Patient verbalized understanding of plan and all questions were answered. Call back number to clinic was given and patient was told to call if they had an further questions. ATION PROFESSIONAL documented in this encounter Plan of Treatment Not on file documented as of this encounter Visit Diagnoses Not on filedocumented in this encounter Care Teams Viscera Washer Relationship Specialty Start Date End Date Ondina Chávez MD [address] [address] PCP - General Family Medicine 05/07/23 Max Lee MD [address] [place] [address] Hematology & Oncology 05/17/23 Zuleika Rogers MD [address] [place] [phone] Radiation Oncology 05/17/23 05/20/23 Igor Myers MD Hematology & Oncology 05/20/23 Shiva Kruger MD [address] [place] [address] Assigned Musculoskeletal Provider 05/18/23 documented as of this encounter
--- OUTSIDE RECORDS SUMMARY | 2023-08-08 18:08 | XMS_ITS | Encounter Summary ---
Author Name Unknown Organization [facility] Address [address] [place] [address] Care Team Providers Care River Boat Captain Name Role Phone Ondina Chávez MD Primary Care Provider Max Lee MD Unavailable [phone] Zuleika Rogers MD Unavailable [phone] Igor Myers MD Unavailable Unavaila Donna Hunt RN Unavailable Unavailable Igor Myers MD Unavailable Unavaila Shiva Huff MD Unavailable [phone] Encounter Details Date Type Department Care Team (Late st Contact Info) Description 05/14/2023 Ashley Bullard [facility] [address] [place] [address] Shiva Kruger MD [address] [place], [place] [address] History of claustrophobia (Primary Dx) Social History Tobacco Use Types [...] as of this encounter Visit Diagnoses Diagnosis History of claustrophobia- Primary documented in this encounter Care Teams River Boat Captain Relationship Specialty Start Date End Date Ondina Chávez MD [facility] [address] [place] [address] PCP - General Family Medicine 05/07/23 Max Lee MD [address] [place] [address] Hematology & Oncology 05/17/23 Zuleika Rogers MD [address] [place] [address] Radiation Oncology 05/17/23 05/20/23 Igor Myers MD Hematology & Oncology 05/20/23 Donna Ang, BEATRIZ Specialty Preschool Principal Hematology & Oncology 05/31/23 Igor Myers MD Assigned Cancer Care Provider 06/01/23 Shiva Kruger MD [address] [place] [address] Assigned Musculoskeletal Provider 05/18/23 documented as of this encounter
--- OUTSIDE RECORDS SUMMARY | 2023-08-08 18:08 | XMS_ITS | Encounter Summary ---
Author Name Unknown Organization [facility] Address [address] [place] [address] Care Team Providers Care Clinical Trial Assistant Name Role Phone Ondina Chávez MD Primary Care Provider [phone] Max Lee MD Unavailable [phone] Zuleika Rogers MD Unavailable [phone] Igor Myers MD Unavailable Unavaila Shiva Huff MD Unavailable [phone] Encounter Details Date Type Department Care Team (Latest Contact Info) Description 05/20/2023 Travel Social History Tobacco Use Types Packs/Day [...] on filedocumented in this encounter Care Teams Clinical Trial Assistant Relationship Specialty Start Date End Date Ondina Chávez MD [facility] [address] [place] [address] PCP - General Family Medicine 05/07/23 Max Lee MD [address] [place] [address] Hematology & Oncology 05/17/23 Zuleika Roegrs MD [address] [place] [phone] Radiation Oncology 05/17/23 05/20/23 Igor Myers MD Hematology & Oncology 05/20/23 Shiva Kruger MD [address] [place] [address] [phone] Assigned Musculoskeletal Provider 05/18/23 documented as of this encounter
--- OUTSIDE RECORDS SUMMARY | 2023-08-08 18:08 | XMS_ITS | Encounter Summary ---
Author Name Unknown Organization [facility] Address [address] [place] [address]. [place] [address] Care Team Providers Care Criminalist Technician Name Role Phone Ondina Chávez MD Primary Care Provider [phone] Max Lee MD Unavailable [phone] Igor Myers MD Unavailable Unavaila Shiva Huff MD Unavailable [phone] Encounter Details Date Type Department Care Team (Late st Contact Info) Description 05/23/2023 Tumor Conference [facility] - Cancer Care Service Line [facility]0 [place] [address] Demetrice Harrison MD [address] [facility] [address] [place], [place] [address] Social History Tobacco Use Types Packs/Day Years [...] on filedocumented in this encounter Care Teams Criminalist Technician Relationship Specialty Start Date End Date Ondina Chávez MD [facility] [address] [place] [address] PCP - General Family Medicine 05/07/23 Max Lee MD [address] [place] [address] Hematology & Oncology 05/17/23 Igor Myers MD Hematology & Oncology 05/20/23 Shiva Kruger MD [address] [place] [address] [address] [place] [address] Assigned Musculoskeletal Provider 05/18/23 documented as of this encounter
--- OUTSIDE RECORDS SUMMARY | 2023-08-08 18:08 | XMS_ITS | Encounter Summary ---
Author Name Unknown Organization [facility] Address [address] [place] [address] Care Team Providers Care Community Arts Worker Name Role Phone Ondina Chávez MD Primary Care Provider [phone] Encounter Details Date Type Department Care Team (Latest Contact Info) Description 05/15/2023 Travel Social History Tobacco Use Types Packs/Day [...] on filedocumented in this encounter Care Teams Community Arts Worker Relationship Specialty Start Date End Date Ondina Chávez MD [facility] [address] [place] [address] PCP - General Family Medicine 05/07/23 documented as of this encounter
--- OUTSIDE RECORDS SUMMARY | 2023-08-08 18:08 | XMS_ITS | Encounter Summary ---
Author Name Unknown Organization [facility] Address [address] [place] [address] Care Team Providers Care Defective Cigarette Slitter Name Role Phone Ondina Chávez MD Primary Care Provider Max Lee MD Unavailable [phone] Igor Myers MD Unavailable Unavaila Shiva Huff MD Unavailable [phone] Encounter Details Date Type Department Care Team (Late st Contact Info) Description 05/22/2023 Orders Only [facility] [address] [place] [address] Igor Myers MD Metastatic malignant melanoma (H) (Primary Dx) Social History Tobacco Use Types [...] as of this encounter Visit Diagnoses Diagnosis Metastatic malignant melanoma (H)- Primary Melanoma of skin, site unspecified documented in this encounter Care Teams Defective Cigarette Slitter Relationship Specialty Start Date End Date Ondina Chávez MD [facility] [address] [place] [address] PCP - General Family Medicine 05/07/23 Max Lee MD [address] [place] [address] Hematology & Oncology 05/17/23 Igor Myers MD Hematology & Oncology 05/20/23 Shiva Kruger MD [address] [place] [address] Assigned Musculoskeletal Provider 05/18/23 documented as of this encounter
--- OUTSIDE RECORDS SUMMARY | 2023-08-08 18:08 | XMS_ITS | Encounter Summary ---
Author Name Unknown Organization [place] Address [address] [place] [address] Care Team Providers Care High School Math Teacher Name Role Phone Ondina Chávez MD Primary Care Provider [phone] Reason for Visit * Diagnostic Imaging PET (Routine) - Closed Specialty Diagnoses / Procedures Referred By Mikki feliciano Referred To Contact Radiology. 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) Procedures PET Oncology (Eyes to Thighs) PET Oncology Whole Body Rachel Sanz PA-C [address] [place] [address] [place] [address] Referral ID Status Reason Start Date Expiration Date Visits Re quested Visits Authorized [id number] Closed 05/13/2023 05/12/2024 1 1 Encounter Details Date Type Department Care Team (Latest Contact Info) Description 05/15/2023 10:12 AM CDT - 05/15/2023 11:59 PM CDT Hospital Encounter [facility] [address] [place] [address] Rachel Sanz PA-C [address] [place] [address] 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 1 tablet 0 05/14/2023 ibuprofen (ADVIL/MOTRIN) 200 MG tablet Take 200 mg by mouth every 4 hours as needed for pain 0 lisinopril-hydrochloroth iazide (ZESTORETIC) 10-12.5 MG tablet Take 1 tablet by mouth every morning 0 01/02/2023 omeprazole 20 MG tablet Take 20 mg by mouth 0 05/08/2023 ondansetron (ZOFRAN ODT) [address] 4 mg under the tongue every 8 hours as needed 0 05/08/2023 oxyCODONE (ROXICODONE) 5 MG tablet Take 5 mg by mouth every 6 hours as needed 0 05/08/2023 traZODone (DESYREL) 50 MG tablet Take 50 mg by mouth at bedtime 0 05/08/2023 oxyCODONE (ROXICODONE) 5 MG tabletIndications:Bone cyst Take 1-2 tablets (5-10 mg) by mouth every 4 hours as needed for moderate to severe pain 12 tablet 0 05/13/2023 05/31/2023 documented as of this encounter Plan of Treatment Not on file documented as of this encounter Procedures Procedure Name Priority Date/Time Associated Diagnosis Comments CT CHEST/ABDOMEN/PELVI S W CONTRAST STAT 05/15/2023 12:02 PM CDT 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 JJ KEENE DO Narrative 05/15/2023 2:53 PM CDT Combined [...] and bilateral iliac bones. Procedure Note Jj Keene MD - 05/15/2023 Combined Report of: PET [...] and I agree with the findings. JJ KEENE DO Rachel Sanz PA-C IMG CT O RDERABLES * PET Oncology (Eyes to Thighs) (05/15/2023 [...] and I agree with the findings. JJ KEENEDO Narrative 05/15/2023 2:53 PM CDT Combined Report [...] and bilateral iliac bones. Procedure Note Jj Keene MD - 05/15/2023 Combined Report of: PET [...] and I agree with the findings. 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 *HW* $Given 05/15/2023 10:50 AM CDT 10.62 millicuries iopamidol (ISOVUE-370) solution 10-135 mL 10-135 mL, Intravenous, ONCE, On Sat05/15/23 at 1030, For 1 dose $Given 05/15/2023 11:44 AM CDT 108 mLs sodium chloride (PF) 0.9% PF flush 10-60 mL 10-60 mL, Intravenous, ONCE, On Sat05/15/23 at 1030, For 1 dose $Given 05/15/2023 11:44 AM CDT 60 mLs documented in this encounter Care Teams High School Math Teacher Relationship Specialty Start Date End Date Ondina Chávez MD [facility] [address] [place] [address] PCP - General Family Medicine 05/07/23 documented as of this encounter
--- OUTSIDE RECORDS SUMMARY | 2023-08-08 18:08 | XMS_ITS | Encounter Summary ---
Author Name Unknown Organization [place] Address [address] [place] [address] Care Team Providers Care Medical Staff Manager Name Role Phone Ondina Chávez MD Primary Care Provider [phone] Max Lee MD Unavailable [phone] Igor Myers MD Unavailable Unavaila Shiva Huff MD Unavailable [phone] Encounter Details Date Type Department Care Team (Latest Contact Info) Description 05/21/2023 Travel Social History Tobacco Use Types Packs/Day [...] on filedocumented in this encounter Care Teams Medical Staff Manager Relationship Specialty Start Date End Date Ondina Chávez MD [facility] [address] [place] [address] PCP - General Family Medicine 05/07/23 Max Lee MD [address] [place] [address] Hematology & Oncology 05/17/23 Igor Myers MD Hematology & Oncology 05/20/23 Shiva Kruger MD [facility] [address] [address] Assigned Musculoskeletal Provider 05/18/23 documented as of this encounter
--- OUTSIDE RECORDS SUMMARY | 2023-08-08 18:08 | XMS_ITS | Encounter Summary ---
Author Name Unknown Organization [place] Address [address] [place] [address] Care Team Providers Care Customer Specialist Name Role Phone Ondina Chávez MD Primary Care Provider [phone] Reason for Referral * Diagnostic Imaging PET (Routine) - Closed Specialty Diagnoses / Procedures Referred By [facility] Referred To Contact Radiology. 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 Call member services at your health plan with any benefit or coverage questions. 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 Ask for the Chemo only medicine physician. Reason for Referral: Medical Oncology Scheduling Instructions: Aleah Hernandez will call you to coordinate your care as prescribed by the provider. If you don? t hear from a graphic art sales representative within 2 business days, please call Comments Please be aware that coverage of these services is subject to the terms and limitations of your health insurance plan. Call member services at your health plan with any benefit or coverage questions. Aleah Hernandez will call you to coordinate your care as prescribed by the provider. If you don? 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) (Primary Dx) Social History Tobacco Use [...] as of this encounter Plan of Treatment Scheduled Referrals Name Type Priority Associated Diagnoses Orde r Schedule Adult Oncology/Hematology Pharmacy Salesperson Referral Referral Urgent: 3-5 Days 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 JJ KEENE, Narrative 05/15/2023 2:53 PM CDT Combined Report [...] with the findings. 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
--- OUTSIDE RECORDS SUMMARY | 2023-08-08 18:08 | XMS_ITS | Encounter Summary ---
Author Name Unknown Organization [place] Address [address] [place] [address] Care Team Providers Care Cheese Cutter Name Role Phone Ondina Chávez MD Primary Care Provider [phone] Encounter Details Date Type Department Care Team (Late st Contact Info) Description 05/13/2023 [facility] Medical Advice [facility] [address] [place] [address] Patria Tidwell RN Social History Tobacco Use Types Packs/Day Years [...] encounter Miscellaneous Notes * Telephone Encounter - Patria Tidwell RN - 05/14/2023 10:27 AM CDT Call placed to patient. She has claustrophobia and has required Valium for previous MRI's. Confirmed pharmacy, prescription pended and routed to PA. Informed patient prescription had to be signed before it will be available for pickup at pharmacy. Instructed patient to bring medication to appointment and not take until instructed by staff. She will have her drive her to and from the appointment. She is currently taking 5 mg of Oxycodone every 6 hours. Advised patient against taking Valium and Oxycodone at the same time. Patient verbalized understanding. Patient was hoping to talk to Dr. Kruger after her PET/CT and pathology results are final. Virtualvisit scheduled for May 25 at 2:15. Patria Tidwell RNCC documented in this encounter Plan of Treatment Not on file documented as of this encounter Visit Diagnoses Not on filedocumented in this encounter Care Teams Cheese Cutter Relationship Specialty Start Date End Date Ondina Chávez MD [facility] [address] [place] [address] PCP - General Family Medicine 05/07/23 documented as of this encounter
--- OUTSIDE RECORDS SUMMARY | 2023-08-08 18:08 | XMS_ITS | Encounter Summary ---
Author Name Unknown Organization [place] Address [address] [place] [address]. [place] [address] Care Team Providers Care Academic Hospitalist Name Role Phone Ondina Chávez MD Primary Care Provider [phone] Encounter Details Date Type Department Care Team (Late st Contact Info) Description 05/14/2023 [facility] [address] [place] [address] Rachel Sanz PA-C [address] [place] [id number] Claustrophobia (Primary Dx) Social History Tobacco Use Types [...] on file documented as of this encounter Progress Notes * Patria Tidwell RN - 05/14/2023 9:49 AM CDT Erroneous encounter, please disregard. Patria Tidwell RNCC documented in this encounter Plan of Treatment Not on file documented as of this encounter Visit Diagnoses Diagnosis Claustrophobia- Primary Other isolated or specific phobias documented in this encounter Care Teams Academic Hospitalist Relationship Specialty Start Date End Date Ondina Chávez MD [facility] [address] [place] [address] PCP - General Family Medicine 05/07/23 documented as of this encounter
--- OUTSIDE RECORDS SUMMARY | 2023-08-08 18:08 | XMS_ITS | Encounter Summary ---
Author Name Unknown Organization [place] Address [address] [place] [address] Care Team Providers Care Business Process Architect Name Role Phone Ondina Chávez MD Primary Care Provider [phone] Encounter Details Date Type Department Care Team (Latest Contact Info) Description 05/13/2023 Travel Social History Tobacco Use Types Packs/Day [...] on filedocumented in this encounter Care Teams Business Process Architect Relationship Specialty Start Date End Date Ondina Chávez MD [facility] [address] [place] [address] PCP - General Family Medicine 05/07/23 documented as of this encounter
--- OUTSIDE RECORDS SUMMARY | 2023-08-08 18:08 | XMS_ITS | Encounter Summary ---
Author Name Unknown Organization [place] Address [address] [place] [address] Care Team Providers Care Transportation Technician Name Role Phone Ondina Chávez MD Primary Care Provider [phone] Max Lee MD Unavailable [phone] Igor Myers MD Unavailable Unavaila Shiva Huff MD Unavailable [phone] Reason for Visit * Reason Onset Date Comments *-*INCOMING RECORDS*-* 05/22/2023 Encounter Details Date Type Department Care Team (Late st Contact Info) Description 05/22/2023 PRE VISIT [facility] [address] [place] [address] Max Lee MD [address] [place] [address] *-*INCOMING RECORDS*-* Social History Tobacco Use Types Packs/Day Years [...] encounter Miscellaneous Notes * Telephone Encounter - Danielle Yancey - 05/17/2023 11:05 AM CDT May 17, 2023 11:05 AM TJ Internal Referral, Per call to PT, confirmed no previous radiation or outside records needed documented in this encounter Plan of Treatment Not on file documented as of this encounter Visit Diagnoses Not on filedocumented in this encounter Care Teams Transportation Technician Relationship Specialty Start Date End Date Ondina Chávez MD [address] [address] PCP - General Family Medicine 05/07/23 Max Lee MD [address] [place] [address] Hematology & Oncology 05/17/23 Igor Myers MD Hematology & Oncology 05/20/23 Shiva Kruger MD [address] [place] [address] [place] [address] [id number] Assigned Musculoskeletal Provider 05/18/23 documented as of this encounter
--- OUTSIDE RECORDS SUMMARY | 2023-08-08 18:08 | XMS_ITS | Encounter Summary ---
Author Name Unknown Organization [place] Address [address] [place] [address] Care Team Providers Care Machine Plug Shaper Name Role Phone Ondina Chávez MD Primary Care Provider [phone] Max Lee MD Unavailable [phone] Igor Myers MD Unavailable Unavaila Shiva Huff MD Unavailable [phone] Reason for Visit * Reason Onset Date Comments *-*INCOMING RECORDS*-* 05/21/2023 Encounter Details Date Type Department Care Team (Late st Contact Info) Description 05/21/2023 PRE VISIT [facility] Radiation Oncology [address] [facility], 1st [place] [id number] Zuleika Rogers MD [address] [place], [place] [address] *-*INCOMING RECORDS*-* Social History Tobacco Use Types [...] Telephone Encounter - Danielle Yancey - 05/17/2023 11:02 AM CDT May 17, 2023 11:03 AM TJ Internal Referral, Per call to PT, confirmed no previous radiation or outside records needed documented in this encounter Plan of Treatment Not on file documented as of this encounter Visit Diagnoses Not on filedocumented in this encounter Care Teams Machine Plug Shaper Relationship Specialty Start Date End Date Ondina Chávez MD [address] [address] PCP - General Family Medicine 05/07/23 Max Lee MD [address] [place] [address] Hematology & Oncology 05/17/23 Igor Myers MD Hematology & Oncology 05/20/23 Shiva Kruger MD [address] [place] [address] [place] [id number] Assigned Musculoskeletal Provider 05/18/23 documented as of this encounter
--- OUTSIDE RECORDS SUMMARY | 2023-08-08 18:08 | XMS_ITS | Encounter Summary ---
Author Name Unknown Organization [place] Address [address] [place] [address] Care Team Providers Care Winder Helper Name Role Phone Ondina Chávez MD Primary Care Provider [phone] Max Lee MD Unavailable [phone] Zuleika Rogers MD Unavailable [phone] Igor Myers MD Unavailable Unavaila Donna Hunt RN Unavailable Unavailable Igor Myers MD Unavailable Unavaila Shiva Huff MD Unavailable [phone] Encounter Details Date Type Department Care Team (Late st Contact Info) Description 05/20/2023 [facility] Medical Advice [facility] Cancer Clinic [address] [place] [address] Ana Black Social History Tobacco Use Types Packs/Day Years [...] on filedocumented in this encounter Care Teams Winder Helper Relationship Specialty Start Date End Date Ondina Chávez MD [facility] [address] [place] [address] PCP - General Family Medicine 05/07/23 Max Lee MD [address] [place] [address] Hematology & Oncology 05/17/23 Zuleika Rogers MD [address] [place] [address] Radiation Oncology 05/17/23 05/20/23 Igor Myers MD Hematology & Oncology 05/20/23 Donna Ang, RN Specialty Heel Buffer Hematology & Oncology 05/31/23 Igor Myers MD Assigned Cancer Care Provider 06/01/23 Shiva Kruger MD [address] [place] [address] Assigned Musculoskeletal Provider 05/18/23 documented as of this encounter
--- OUTSIDE RECORDS SUMMARY | 2023-08-08 18:08 | XMS_ITS | Encounter Summary ---
Author Name Unknown Organization [facility] Address [address] [place] [address]. 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) Oanh Carrillo PA-C [address] [place] [address] Referral ID Status Reason Start Date Expiration Date Visits Re quested Visits Authorized [id number] Closed 05/13/2023 05/12/2024 1 1 Encounter Details Date Type Department Care Team (Late st Contact Info) Description 05/21/2023 12:30 PM SINGE MACHINE OPERATOR Office Visit [facility] Radiation Oncology [address] [facility], 1st [place] [phone] Oanh Carrillo PA-C [address] [place], [place] [address] Akosua Rosas MD [address] [place] [address] [address] [place] [address] Nurse, [facility] Rad Onc Cancer related pain [...] of this encounter Progress Notes * Akosua Rosas MD - 05/21/2023 12:30 PM CST RADIATION ONCOLOGY CONSULTATION DATE OF VISIT: May 21, 2023 Tony Cota PROBLEM: Ms. Tony Cota was seen for initial consultation in the Department of Radiation Oncology on 05/21/2023 at the request of Dr. Kruger for new diagnosis of metastatic melanoma. All available pertinent medical records, radiographic and laboratory studies were reviewed. HISTORY OF PRESENT ILLNESS: Tony Cota is a 47-year-old woman who presented to her primary care physician in early April 2023 with left knee pain of several months duration which did not improve with physical therapy. The pain was significant enough to keep her from sleeping. Additionally, she had symptoms of pronounced fatigue which she thought was related to her son's recent diagnosis of mononucleosis, as well as nausea and vomiting which she attributes to the knee pain. She was initially evaluated and felt to have an ACL injury. An MRI scan of the left knee was obtained on 05/03/2023 which demonstrated osseous lesions within the distal femur which were new compared to prior examination on October 15, 2014. Findings were concerning for malignancy. She saw Dr. Kruger and underwent biopsy of the left distal femur on 05/13/2023. Pathology demonstrated metastatic high-grade malignancy most consistent with melanoma. IHC stains show positivity for SOX10, S100, Melan-A, HMB45, PRAME and BRAF V600E. Staining was negative for desmin, DOG1, INSM1, SSX 18 and SF-1 while SATB2 and SSXC show patchy weak reactivity. She underwent PET CT scan on 05/15/2023 which demonstrated a heterogeneous solid cystic hypermetabolic pelvic mass abutting the uterus and cecum concerning for primary tumor possibly representing an adnexal mass with a smaller mass at the cecum which is likely of similar process. There were multiplelytic osseous metastatic lesions throughout the axial and appendicular skeleton and in both lung davis suspicious for diffuse metastasis. There was a hypermetabolic right renal cortical soft tissue nodule which was indeterminant either representing metastatic disease versus second primary such as renal cell carcinoma. Within the bones, there were multiple lytic lesions within the vertebral bodies, body of the sternum, left sacral ala, bilateral humeri, bilateral femurs. She was referred to Radiation Oncology for consideration of palliative radiation to the left femur. Aside from fatigue and left thigh pain, she also notes frequent urination and has been getting up afew times each night to empty her bladder. She has not been experiencing any vaginal bleeding in between menstrual cycles. She has not experienced any unexplained weight loss. The nausea and vomitingimproved when she started taking oxycodone for pain. She is not having any headaches, confusion, visual changes, imbalance. PAST MEDICAL HISTORY: Past Medical History: Diagnosis Date Bone cyst of femur Essential hypertension PAST SURGICAL HISTORY: Past Surgical History: Procedure Laterality Date BIOPSY BONE LOWER EXTREMITY Left 05/13/2023 Procedure: Biopsy left distal femur; Surgeon: Shiva Kruger MD; Location: [facility] [place] teeth extracted. CHEMOTHERAPY HISTORY: None PAST RADIATION THERAPY HISTORY: None IMPLANTABLE CARDIAC DEVICE: None MEDICATIONS: Current Outpatient Medications Medication Sig Dispense Refill [...] Take 50 mg by mouth at bedtime ALLERGIES: Allergies as of 05/21/2023 (No Known Allergies) SOCIAL HISTORY: Social History Socioeconomic History Marital status: Spouse name: Not on file Number of children: Not on file Years of education: Not on file Highest education level: Not on file Occupational History Not on file Tobacco Use Smoking status: Never Smokeless tobacco: Never Substance and Sexual Activity Alcohol use: Yes Comment: Social Drug use: Not Currently Sexual activity: Not on file Other Topics Concern Not on file Social History Narrative Not on file Social Determinants of Health Financial Resource Strain: Not on file Food Insecurity: Not on file Transportation Needs: Not on file Physical Activity: Not on file Stress: Not on file Social Connections: Not on file Interpersonal Safety: Not on file Housing Stability: Not on file 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 She has 3 young children. FAMILY HISTORY: Noncontributory REVIEW OF SYMPTOMS: A full 12-point review of systems was performed. All pertinent positives and negatives are noted in HPI. FUNCTIONAL STATUS: ECO PHYSICAL EXAMINATION: LMP 05/13/2023 (Approximate) Exam: General: Alert, oriented, in no acute distress The remainder of physical examination was not performed today. IMAGING/PATH: Please refer to history of present illness. LABORATORY: Lab Results Component Value Date WBC 7.9 05/09/2023 HGB 10.2 (L) 05/09/2023 HCT 30.2 (L) 05/09/2023 MCV 90 05/09/2023 PLT 460 (H) 05/09/2023 Lab Results Component Value Date NA 133 (L) 05/09/2023 POTASSIUM 3.3 (L) 05/09/2023 CHLORIDE 90 (L) 05/09/2023 CO2 25 05/09/2023 GLC 95 05/09/2023 Lab Results Component Value Date AST 25 05/09/2023 ALT 16 05/09/2023 ALKPHOS 110 (H) 05/09/2023 BILITOTAL 0.4 05/09/2023 ASSESSMENT AND PLAN: Tony Cota is a 47-year-old woman with new diagnosis of possible metastatic melanoma. Her PET scanshows widely metastatic disease including a large pelvic mass. I spent some time reviewing her caseso far and going over her PET CT scan with the patient and her . They asked several questions which were answered such that they verbalized understanding of the issues. They understand the need for further evaluation prior to treatment recommendations. At this time, her pain is well controlled with oxycodone and palliative radiation can be consideredin the near future after further work-up. Her case was discussed with Gynecologic Oncology for review of the pelvic mass. The pathology does not have specific tumor markers to rule out a gynecologic origin of this tumor and these will be requested. We will also plan to discuss her case in Gynecologic Oncology tumor conference tomorrow. Additionally, she is currently scheduled to see Medical Oncology Dr. Myers on Saturday. Her PET scan shows several lytic lesions within the vertebral bodies with some anterior encroachment on the spinal canal at level T10 and I would recommend MRI of the spine as part of her further evaluation. Additionally, given her history of nausea and vomiting despite lack of neurologic symptoms,a brain MRI for further staging would help identify any potential brain metastasis. I refilled her prescription for oxycodone. We will contact her after discussion in tumor conferencetomorrow morning to discuss next steps. I have urged her to keep her an appointment with Dr. Myers as well. We appreciate the opportunity to participate in Ms. Cota' care. Please call with any questions. 95 minutes spent by me on the date of the encounter doing chart review, history and exam, documentation and further activities per the note. Akosua Rosas MD Department of Radiation Oncology [facility] Patient Care Team: Ondina Chávez MD as PCP - General (Family Medicine) Max Lee MD as MD (Hematology & Oncology) Igor Myers MD as MD (Hematology & Oncology) OANH CARRILLO Deanna MD This note was dictated with voice recognition software and then edited. Please excuse any unintentional errors. E MACHINE OPERATOR * Bibi Steel RN - 05/21/2023 12:30 PM CST HPI INITIAL PATIENT ASSESSMENT Diagnosis: Cancer Prior radiation therapy: None Prior chemotherapy: None Prior hormonal therapy:No Pain Eval: Current history of pain associated with this visit: Intensity: 6/10 Current: dull Location: Femur Treatment: Oxycodone 5 mg Psychosocial Living arrangements: Lives with family Fall Risk: independent senior administrative services officer referral needs: Not needed Advanced Directive: No Implantable Cardiac Device? No Review of Systems Constitutional: Positive for malaise/fatigue. HENT: Negative. Eyes: Negative. Respiratory: Negative. Cardiovascular: Negative. Gastrointestinal: Positive for constipation, nausea and vomiting. Genitourinary: Negative. Musculoskeletal: Leg pain Skin: Negative. Neurological: Negative. Endo/Heme/Allergies: Negative. Psychiatric/Behavioral: The patient is nervous/anxious. 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
--- OUTSIDE RECORDS SUMMARY | 2023-08-08 18:08 | XMS_ITS | Encounter Summary ---
Author Name Unknown Organization [facility] Address [address] [place] [address] Care Team Providers Care Inspector Bicycle Name Role Phone Ondina Chávez MD Primary Care Provider [phone] Max Lee MD Unavailable [phone] Zuleika Rogers MD Unavailable [phone] Igor Myers MD Unavailable Unavaila Donna Hunt RN Unavailable Unavailable Igor Myers MD Unavailable Unavaila Shiva Huff MD Unavailable [phone] Encounter Details Date Type Department Care Team (Late st Contact Info) Description 05/14/2023 [facility] Medical Advice [facility] [address] 4[address] [place] [address] Shiva Kruger MD [address] [place], [place] [phone] Social History Tobacco Use Types Packs/Day Years [...] on filedocumented in this encounter Care Teams Inspector Bicycle Relationship Specialty Start Date End Date Ondina Chávez MD [facility] [address] [place] [address] PCP - General Family Medicine 05/07/23 Max Lee MD [address] [place] [address] [id number] Hematology & Oncology 05/17/23 Zuleika Rogers MD [address] [place] [address] [phone] Radiation Oncology 05/17/23 05/20/23 Igor Myers MD Hematology & Oncology 05/20/23 Donna Ang, BEATRIZ Specialty Visitor Services Technician Hematology & Oncology 05/31/23 Igor Myers MD Assigned Cancer Care Provider 06/01/23 Shiva Kruger MD [address] [place] [id number] Assigned Musculoskeletal Provider 05/18/23 documented as of this encounter
--- OUTSIDE RECORDS SUMMARY | 2023-08-08 18:08 | XMS_ITS | Encounter Summary ---
Author Name Unknown Organization [facility] Address [address] [place] [address] Care Team Providers Care Frozen Foods Manager Name Role Phone Ondina Chávez MD Primary Care Provider [phone] Encounter Details Date Type Department Care Team (Late st Contact Info) Description 05/14/2023 [facility] [address] 4th [place] [address] Patria Tidwell RN Social History [...] Encounter - Patria Tidwell RN - 05/14/2023 10:21 AM CDT Erroneous encounter, please disregard. Patria Tidwell RNCC documented in this encounter Plan of Treatment Not on file documented as of this encounter Visit Diagnoses Not on filedocumented in this encounter Care Teams Frozen Foods Manager Relationship Specialty Start Date End Date Ondina Chávez MD [facility] [address] [place] [address] PCP - General Family Medicine 05/07/23 documented as of this encounter
--- OUTSIDE RECORDS SUMMARY | 2023-08-08 18:08 | XMS_ITS | Encounter Summary ---
Author Name Unknown Organization [facility] Address [address] [place] [address] Care Team Providers Care Unemployment Insurance Hearing Officer Name Role Phone Ondina Chávez MD Primary Care Provider Max Lee MD Unavailable Zuleika Rogers MD Unavailable [phone] Encounter Details Date Type Department Care Team (Late st Contact Info) Description 05/16/2023 Orders Only [facility] [place] [address] [facility] [address] 4th [place] [address] Shiva Kruger MD [address] [place], [place] [address] Metastatic carcinoma involving bone with unknown primary [...] of this encounter Visit Diagnoses Diagnosis 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
--- OUTSIDE RECORDS SUMMARY | 2023-08-08 18:09 | XMS_ITS | Encounter Summary ---
Author Name Unknown Organization [facility] Address [address] [place] [address]. [place] [address] Care Team Providers Care Utilities Manager Name Role Phone Ondina Chávez MD Primary Care Provider [phone] Reason for Visit * Auth/Cert (Routine) Specialty Diagnoses / Procedures Referred By Mikki t Referred To Contact Surgery Diagnoses Bone cyst Bone cyst [M85.60] Procedures FL BIOPSY BONE,TROCAR/NEEDLE SUPERFICIAL FL BONE BIOPSY,TROCAR/NEEDLE DEEP FL BIOPSY BONE OPEN, SUPERIFICAL FL BIOPSY BONE,EXCISIONAL DEEP FL OPEN TX FEMORAL FRACTURE DISTAL MED/LAT CONDYLE biopsy left distal femur. possible plating Ur [facility] [address] [place] [phone] Referral ID Status Reason Start Date Expiration Date Visits Re quested Visits Authorized [id number] 1 1 Encounter Details Date Type Department Care Team (Latest Contact Info) Description 05/13/2023 8:43 AM CDT - 05/13/2023 11:59 PM CDT Hospital Encounter [facility] PACU [facility] [place] [address] Shiva Kruger MD [address] [place] [address] Bone cyst (Primary Dx); Metastatic carcinoma involving [...] Sign Reading Time Taken Comments Blood Pressure 131/76 05/13/2023 4:13 PM CDT Pulse 102 05/13/2023 4:13 PM CDT Temperature 36.9 ??C (98.4 ??F) 05/13/2023 4:13 PM CD T Respiratory Rate 14 05/13/2023 4:15 PM CDT Oxygen Saturation 100% 05/13/2023 4:15 PM CDT Inhaled Oxygen Concentration - - Weight 80.6 kg (177 lb 11.1 oz) 05/13/2023 8:55 AM CDT Height 160.3 cm (5' 3.11) 05/13/2023 8:55 AM CD T Body Mass Index 31.37 05/13/2023 8:55 AM CDT documented in this encounter Discharge Instructions * Discharge Instructions* Jose Blank, RN - 05/13/2023 2:14 PM CDT Same-Day Surgery Adult Discharge Orders & Instructions For 24 hours after surgery: Get plenty of rest. A responsible adult must stay with you for at least 24 hours after you leave the hospital. Pain medication can slow your reflexes. Do not drive or use heavy equipment. If you have weakness or tingling, don't drive or use heavy equipment until this feeling goes away. Mixing alcohol and pain medication can cause dizziness and slow your breathing. It can even be fatal. Do not drink alcohol while taking pain medication. Avoid strenuous or risky activities. Ask for help when climbing stairs. You may feel lightheaded. If so, sit for a few minutes before standing. Have someone help you get up. If you have nausea (feel sick to your stomach), drink only clear liquids such as apple juice, danny diaz, broth or 7-Up. Rest may also help. Be sure to drink enough fluids. Move to a regular diet as you feel able. Take pain medications with a small amount of solid food, such as toast or crackers, to avoid nausea. A slight fever is normal. Call the doctor if your fever is over 100??F (37.7??C) (taken under the tongue) or lasts longer than 24 hours. You may have a dry mouth, muscle aches, trouble sleeping or a sore throat. These symptoms should goaway after 24 hours. Do not make important or legal decisions. Pain Management: 1. Take pain medication (if prescribed) for pain as directed by your physician. 2. WARNING: If the pain medication you have been prescribed contains Tylenol (acetaminophen), DO NOT take additional doses of Tylenol (acetaminophen). Call your doctor for any of the followin. Signs of infection (fever, growing tenderness at the surgery site, severe pain, a large amount of drainage or bleeding, foul-smelling drainage, redness, swelling). 2. It has been over 8 to 10 hours since surgery and you are still not able to urinate (pee). 3. Headache for over 24 hours. 4. Numbness, tingling or weakness the day after surgery (if you had spinal anesthesia). To contact a doctor, call Dr. Kruger, Orthopedic, or: ' [phone] and ask for the Resident Steel Loader for: Orthopedic (answered 24 hours a day) ' Emergency Department: [facility]: [phone] [facility]: [phone] Rev. 04/2014 documented in this encounter Medications at Time of Discharge Medication Sig Dispensed Refills Start Date End Date acetaminophen (TYLENOL) 500 MG tablet Take 500-1,000 mg by mouth every 6 hours as needed for mild pain 0 ibuprofen (ADVIL/MOTRIN) 200 MG tablet Take 200 mg by mouth every 4 hours as needed for pain 0 lisinopril-hydrochlorot hiazide (ZESTORETIC) 10-12.5 MG tablet Take 1 tablet [...] 05/13/2023 05/31/2023 documented as of this encounter Miscellaneous Notes * Brief Op Note - Jose Crespo MD - 05/13/2023 1:55 PM CDT [facility] Brief Operative Note Pre-operative diagnosis: Bone cyst [M85.60] Post-operative diagnosis Same as pre-operative diagnosis Procedure: biopsy left distal femur., Left - Leg Surgeon: Surgeon(s) and Role: * Shiva Kruger MD - Primary * Rachel Sanz PA-Harsha - Assisting * Jose Crespo MD - Resident - Assisting Anesthesia: General Estimated Blood Loss: Less than 20 ml Drains: None Specimens: ID Type Source Tests Collected by Time Destination 1 : Left femur tumor Bone Biopsy Femur, Left SURGICAL PATHOLOGY EXAM Shiva Kruger MD 05/13/2023 1:26 PM 2 : FINAL, tumor left femur, please save some for immunophenotyping if needed Bone Biopsy Femur, Left SURGICAL PATHOLOGY EXAM Shiva Kruger MD 05/13/2023 1:39 PM A : Left femur biopsy Bone Biopsy Femur, Left ANAEROBIC BACTERIAL CULTURE ROUTINE, FUNGAL OR YEAST CULTURE ROUTINE, AEROBIC BACTERIAL CULTURE ROUTINE, MTB COMPLEX AND RESISTANCE Shiva Kruger MD 05/13/2023 1:32 PM Findings: See full op note . Complications: None. Implants: * No implants in log * POSTOP PLAN: Discontinue to home per pacu protocol WBAT, ROMAT LLE, no running, jumping or other strenuous activity Follow up in clinic as previously scheduled Jose Crespo MD Orthopedic Surgery, PGY-4 * Op Note - Shiva Kruger MD - 05/13/2023 1:08 PM CDT Preop diagnosis: Tumor left distal femur Postoperative diagnosis: Same Procedure performed: Biopsy tumor left distal femur Surgeon: Shiva Kruger and Atul crespo Estimated blood loss: 50 cc Pathology submitted: 1. Frozen section tumor left distal femur 2. Cultures for aerobic anaerobic fungus TB. 3. Final pathology tumor left distal femur Patient was interviewed in the preoperative area risk and benefits have been reviewed. Consent was signed. The surgical site was marked with my initials and line of intended incision. Preoperative briefing was performed. The patient was taken the operating room in a supine position the left leg was prepped and draped sterilely. Surgical timeout was performed. 2 inch incision was made over the lateral aspect of left distal thigh. Sharp dissection was taken down through skin and subcutaneous tissue. The superficial fascia was incised just anterior to the ITband. The femur was exposed and opened with the drill. The biopsy site was curetted and then packedwith Gelfoam. The tests as described above were ordered. The frozen section was interpreted to show metastatic carcinoma. Postoperative plan: 1. Discharge home today. 2. Oxycodone for pain. I spoke with her about administering this with the Advil. 3. Body PET CT scan has been ordered. 4. Medical oncology and radiation therapy consults ordered. 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 ISCN: nuc homero(EOPP5t1)[81/ 200]/(LOBO4n7)[6 0/200]/(TYAR2x0) [48/200] ADDITIONAL COMMENTS: Control ranges: EWSR1 rearr: 0-0.1% MWPN3y9: 0-3.4% WCVI0n2: 0-1.8% WHVV5t4: 0-0.1% Analyte Specific Reagents (ASRs) are used in many laboratory tests necessary for standard medical care and generally do not require FDA approval. This test was developed and its performance characteristics determined by the [facility], [facility]. It has not been cleared or approved by the U.S. Food and Drug Administration. . 05/21/2023 5:03 PM LAYOUT INSPECTOR [facility] Bone Biopsy STRUCTURE OF LEFT FEMUR / Unknown 05/13/2023 1:39 PM CDT 05/17/2023 4:50 PM CDT Shiva GARCÍA - [facility] Organization Address City/State/ZIP Co de Phone Number [facility] Cytogenetics Lab 6 [facility] [place] [address] [phone] * MTB Complex and Resistance (05/13/2023 1:32 PM CDT) Mycobacterium Tuberculosis PCR Not Detected 05/16/2023 3:20 AM CDT [facility] MTB Rifampin Resistance by PCR Not [...] the molecular method test result. Performed By: [facility] [address] [place] [address] Inside Technical Sales Representative: Ventura Adrian MD, PhD CLIA Number: [id number] Bone Biopsy STRUCTURE OF LEFT FEMUR / Unknown Non-blood Collection / Unknown 05/13/2023 1:32 PM CDT 05/13/2023 1:58 PM CDT Shiva Kruger MD LAB - BLOOD ORDER [facility] [employer] [facility] [employer] [address] [place] [phone], [facility] [phone] * Bone Biopsy Aerobic Bacterial Culture Routine (05/13/2023 1:32 PM CDT) Culture No Growth BRADLY 05/19/2023 7:06 AM LAYOUT INSPECTOR [facility] Bone Biopsy STRUCTURE OF LEFT FEMUR / Unknown Non-blood Collection / Unknown 05/13/2023 1:32 PM CDT 05/13/2023 1:58 PM CDT Shiva Kruger MD LAB - MICRO GENER AL ORDERABLES [facility] Inf. Diseases Diag. Lab [address] [facility], [address] [place] [address], [facility] [phone] * Fungal or Yeast Culture Routine (05/13/2023 1:32 PM CDT) Culture No Growth BRADLY 06/10/2023 7:35 AM LAYOUT INSPECTOR [facility] Bone Biopsy STRUCTURE OF LEFT FEMUR / Unknown Non-blood Collection / Unknown 05/13/2023 1:32 PM CDT 05/13/2023 1:58 PM CDT Shiva Kruger MD LAB - MICRO GENER AL ORDERABLES Performing Organization Address [facility] Co de Phone Number [facility] Inf. Diseases Diag. Lab [address] [facility], Room [place] [phone], [facility] [phone] * Anaerobic Bacterial Culture Routine (05/13/2023 1:32 PM CDT) Culture No anaerobic organisms isolated BRADLY 05/20/2023 9:34 AM LAYOUT INSPECTOR [facility] Bone Biopsy STRUCTURE OF LEFT FEMUR / Unknown Non-blood Collection / Unknown 05/13/2023 1:32 PM CDT 05/13/2023 1:58 PM CDT Shiva Kruger MD LAB - MICRO GENER AL ORDERABLES Performing Organization Address [facility] Co de Phone Number [facility] Inf. Diseases Diag. Lab [address] [facility], [address] [address], [facility] [phone] * (ABNORMAL) Surgical Pathology Exam (05/13/2023 1:26 PM CDT) Case Report Surgical Pathology Report ? Case: [id number] ? Authorizing Provider: ??Shiva Kruger MD ?? [...] if ? needed ? 3 6:13 PM [facility] Addendum FISH test demonstrates no evidence of EWSR1 gene rearrangement, rendering the possibility of clear cell sarcoma unlikely. The original final diagnosis of melanoma is therefore unchanged. 3 6:13 PM [facility] Addendum electronically signed by La Nena Velarde MD on 05/21/2023 at 6:13 PM Final Diagnosis A, B. Bone, left femur tumor, biopsy: - Metastatic high grade malignancy most consistent with melanoma - See comment 3 6:13 PM [facility] Comment:This is an appended [...] reported in an addendum. 3 6:13 PM [facility] Comment:This is an appended report. These results have been appended to a previously preliminary verified report. Clinical Information History of a heterogeneous solid cystic hypermetabolic pelvic mass abutting the uterus and cecum, multiple lytic osseous and pulmonary metastatic lesions, and a right renal cortical soft tissue nodule. 3 6:13 PM [facility] Comment:This is an appended report. These results have been appended to a previously preliminary verified report. Intraoperative Consultation A(1). Femur, Left, Left femur tumor: AFS1: Metastatic carcinoma 3 6:13 PM [facility] Gross Description A(1). Femur, [...] (decal) B2-B3: Soft tissue 3 6:13 PM [facility] Comment:This is an appended report. [...] determine the final diagnosis. 3 6:13 PM [facility] Comment:This is an appended report. These results have been appended to a previously preliminary verified report. Disclaimer Analyte Specific Reagents (ASRs) are used in many laboratory tests necessary for standard medical care and generally do not require FDA approval. This test was developed and its performance characteristics determined by [facility]. It has not been cleared or approved by the U.S. Food and Drug Administration. [facility] are certified for the performance of high-complexity clinical testing under the Clinical Laboratory Improvement Amendments of 1988 (CLIA), and in keeping with the certification requirements, the laboratory has verified this test's accuracy, precision and/or validity of the method. 3 6:13 PM [facility] Comment:This is an appended report. These results have been appended to a previously preliminary verified report. MCRS Yes(A) N/A 3 6:13 PM [facility] Comment:This is an appended report. These results have been appended to a previously preliminary verified report. Performing Labs The technical component of this testing was completed at [facility] 3 6:13 PM [facility] Comment:This is an appended report. These results have been appended to a previously preliminary verified report. Case Images 3 6:13 PM [facility] Bone Biopsy STRUCTURE OF LEFT FEMUR / Unknown 05/13/2023 1:26 PM CDT 05/13/2023 1:36 PM CDT Bone biopsy specimen (specimen) STRUCTURE OF LEFT FEMUR / Unknown 05/13/2023 1:39 PM CDT 05/13/2023 2:17 PM CDT Shiva GARCÍA - [facility] Specialty Lab [address], [address] [place] [address], [place] [phone] UR LABORATORY [facility] Lab [address] 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 $Given 05/13/2023 2:27 PM CDT 975 mg fentaNYL (PF) (SUBLIMAZE) injection 25 mcg 25 mcg, Intravenous, EVERY 5 MIN PRN, moderate pain, Give fentaNYL (SUBLIMAZE) first if HYDROmorphone (DILAUDID) also ordered., Starting on Sat05/13/23 at 1406, Administer fentaNYL (SUBLIMAZE) for acute pain control. Move to HYDROmorphone (DILAUDID): -IF patient has received up to 200 mcg of fentaNYL (SUBLIMAZE) OR - IF patient has received 2 doses of fentaNYL (SUBLIMAZE) AND continues to have pain score greater than or equal to six (6) or is unable to participate in post op recovery due to pain. Wait 5 minutes AFTER last fentaNYL (SUBLIMAZE) dose before administering HYDROmorphone (DILADUDID). Postop Anesthesia Phase I only. Notify Provider to assess for uncontrolled pain or analgesic side effects. DO NOT revert back to fentanyl (SUBLIMAZE) after moving to HYDROmorphone (DILAUDID)., PACU $Given 05/13/2023 2:17 PM CDT 25 mcg $Given 05/13/2023 2:11 PM CDT 25 mcg fentaNYL (PF) (SUBLIMAZE) injection 25 mcg 25 mcg, Intravenous, EVERY 15 MIN PRN, other, acute pain while in Phase II, Starting on Sat05/13/23 at 1406, Up to a total of 100 mcg. Use as a short acting IV agent for acute pain control. Patient must be monitored a minimum of 30 minutes before leaving the facility and meet all Phase II discharge criteria., Phase ll fentaNYL (PF) (SUBLIMAZE) injection 50 mcg 50 mcg, Intravenous, EVERY 5 MIN PRN, severe pain, Give fentaNYL (SUBLIMAZE) first if HYDROmorphone (DILAUDID) also ordered., Starting on Sat05/13/23 at 1406, Administer fentaNYL (SUBLIMAZE) for acute pain control. Move to HYDROmorphone (DILAUDID): - IF patient has received up to 200 mcg of fentaNYL (SUBLIMAZE), OR - IF patient has received 2 doses of fentaNYL (SUBLIMAZE) AND continues to have severe pain (pain score greater than or equal to seven (7) or is unable to participate in post op recovery due to pain. Wait 5 minutes AFTER last fentaNYL (SUBLIMAZE) dose before administering HYDROmorphone (DILADUDID). Postop Anesthesia Phase I only. Notify Provider to assess for uncontrolled pain or analgesic side effects. DO NOT revert back to fentanyl (SUBLIMAZE) after moving to HYDROmorphone (DILAUDID)., PACU HYDROmorphone (PF) (DILAUDID) injection 0.2 mg 0.2 mg, Intravenous, EVERY 5 MIN PRN, moderate pain, Starting on Sat05/13/23 at 1406, Use FentaNYL (SUBLIMAZE) first if ordered. Administer HYDROmorphone (DILAUDID) up to a total of 2 mg for moderate or severe pain. Notify Provider to assess for uncontrolled pain or analgesic side effects., PACU HYDROmorphone (PF) (DILAUDID) injection 0.4 mg 0.4 mg, Intravenous, EVERY 5 MIN PRN, severe pain, Starting on Sat05/13/23 at 1406, Use FentaNYL (SUBLIMAZE) first if ordered. Administer HYDROmorphone (DILAUDID) up to a total of 2 mg for moderate or severe pain. Notify Provider to assess for uncontrolled pain or analgesic side effects., PACU lactated ringers infusion at 100 mL/hr, Intravenous, CONTINUOUS, Continue until IV catheter is weaned, PACU, Starting on Sat05/13/23 at 1430, Until Sat05/17/23 at 1449 ondansetron (ZOFRAN ODT) ODT tab 4 mg 4 mg, Oral, EVERY 30 MIN PRN, nausea, Starting on Sat05/13/23 at 1406, For 2 doses, MAX total dose = 8 mg, including OR dosing. If not resolved in 15 minutes, then go to step 2 [prochlorperazine (COMPAZINE), if ordered]. With dry hands, peel back foil backing and gently remove tablet. Do not push oral disintegrating tablet through foil backing. Administer immediately on tongue and oral disintegrating tablet dissolves in seconds, then swallow with saliva. Liquid not required., PACU ondansetron (ZOFRAN ODT) ODT tab 4 mg 4 mg, Oral, EVERY 30 MIN PRN, nausea, Starting on Sat05/13/23 at 1406, For 2 doses, MAX total dose = 8 mg, including OR dosing. If not resolved in 15 minutes, then go to step 2 [prochlorperazine (COMPAZINE), if ordered]. With dry hands, peel back foil backing and gently remove tablet. Do not push oral disintegrating tablet through foil backing. Administer immediately on tongue and oral disintegrating tablet dissolves in seconds, then swallow with saliva. Liquid not required., Phase ll ondansetron (ZOFRAN) injection 4 mg 4 mg, Intravenous, EVERY 30 MIN PRN, nausea, Administer over 2-5 Minutes, Starting on Sat05/13/23 at 1406, For 2 doses, MAX total dose = 8 mg, including OR dosing. If not resolved in 15 minutes, then go to step 2 [prochlorperazine (COMPAZINE), if ordered]. Irritant., PACU ondansetron (ZOFRAN) injection 4 mg 4 mg, Intravenous, EVERY 30 MIN PRN, nausea, Administer over 2-5 Minutes, Starting on Sat05/13/23 at 1406, For 2 doses, MAX total dose = 8 mg, including OR dosing. If not resolved in 15 minutes, then go to step 2 [prochlorperazine (COMPAZINE), if ordered]. Irritant., Phase ll oxyCODONE (ROXICODONE) tablet 5 mg 5 mg, Oral, ONCE PRN, moderate pain, Starting on Sat05/13/23 at 1406, For 1 dose, Max: 5 mg for opioid-na??ve patient., Phase ll oxyCODONE IR (ROXICODONE) tablet 10 mg 10 mg, Oral, ONCE PRN, severe pain, Starting on Sat05/13/23 at 1406, For 1 dose, Max: 5 mg for opioid-na??ve patient. Use caution with patient Age GREATER than 65 years, COPD, or CrCl LESS than 50 mL/min., Phase ll documented in this encounter Active and Recently Administered Medications Times are shown in CDT. Scheduled Medication Order 05/11/2023 05/12/2023 05/13/2023 acetaminophen (TYLENOL) tablet 975 mg (COMPLETED) 975 mg, Oral, ONCE, On Sat05/13/23 at 1430, For 1 dose, Maximum acetaminophen dose from all sources = 75 mg/kg/day not to exceed 4 grams/day. 1427 ($Given - Provi davina: Jose Blank RN) ceFAZolin Sodium (ANCEF) injection 2 g (COMPLETED) Routine, 2 g, Intravenous, PRE-OP/PRE-PROCEDURE, Starting on Sat05/13/23 at 0852, For 1 dose, Give first dose within 1 hour PRIOR to incision. If patient weight is greater than or equal to 120 kg increase dose to 3 g., Indications: Perioperative Pharmacoprophylaxis, Pre-procedure 1331 ($Given - Provi davina: Emelia Bermudez, GAIL KENT) Continuous Medication Order 05/11/2023 05/12/2023 05/13/2023 lactated ringers infusion at 100 mL/hr, Intravenous, CONTINUOUS, Continue until IV catheter is weaned, PACU, Starting on Sat05/13/23 at 1430, Until Sat05/17/23 at 1449 1430 (Canceled Entry - Provider: Orders Generic Provider - Comment: Automatically canceled at discontinue of medication order) PRN Medication Order 05/11/2023 05/12/2023 05/13/2023 fentaNYL (PF) (SUBLIMAZE) injection 25 mcg 25 mcg, Intravenous, EVERY 5 MIN PRN, moderate pain, Give fentaNYL (SUBLIMAZE) first if HYDROmorphone (DILAUDID) also ordered., Starting on Sat05/13/23 at 1406, Administer fentaNYL (SUBLIMAZE) for acute pain control. Move to HYDROmorphone (DILAUDID): -IF patient has received up to 200 mcg of fentaNYL (SUBLIMAZE) OR - IF patient has received 2 doses of fentaNYL (SUBLIMAZE) AND continues to have pain score greater than or equal to six (6) or is unable to participate in post op recovery due to pain. Wait 5 minutes AFTER last fentaNYL (SUBLIMAZE) dose before administering HYDROmorphone (DILADUDID). Postop Anesthesia Phase I only. Notify Provider to assess for uncontrolled pain or analgesic side effects. DO NOT revert back to fentanyl (SUBLIMAZE) after moving to HYDROmorphone (DILAUDID)., PACU 1411 ($Given - Provi davina: Jose Blank RN)1417 ($Given - Provider: Jose Blank RN) fentaNYL (PF) (SUBLIMAZE) injection 25 mcg 25 mcg, Intravenous, EVERY 15 MIN PRN, other, acute pain while in Phase II, Starting on Sat05/13/23 at 1406, Up to a total of 100 mcg. Use as a short acting IV agent for acute pain control. Patient must be monitored a minimum of 30 minutes before leaving the facility and meet all Phase II discharge criteria., Phase ll fentaNYL (PF) (SUBLIMAZE) injection 50 mcg 50 mcg, Intravenous, EVERY 5 MIN PRN, severe pain, Give fentaNYL (SUBLIMAZE) first if HYDROmorphone (DILAUDID) also ordered., Starting on Sat05/13/23 at 1406, Administer fentaNYL (SUBLIMAZE) for acute pain control. Move to HYDROmorphone (DILAUDID): - IF patient has received up to 200 mcg of fentaNYL (SUBLIMAZE), OR - IF patient has received 2 doses of fentaNYL (SUBLIMAZE) AND continues to have severe pain (pain score greater than or equal to seven (7) or is unable to participate in post op recovery due to pain. Wait 5 minutes AFTER last fentaNYL (SUBLIMAZE) dose before administering HYDROmorphone (DILADUDID). Postop Anesthesia Phase I only. Notify Provider to assess for uncontrolled pain or analgesic side effects. DO NOT revert back to fentanyl (SUBLIMAZE) after moving to HYDROmorphone (DILAUDID)., PACU HYDROmorphone (PF) (DILAUDID) injection 0.2 mg 0.2 mg, Intravenous, EVERY 5 MIN PRN, moderate pain, Starting on Sat05/13/23 at 1406, Use FentaNYL (SUBLIMAZE) first if ordered. Administer HYDROmorphone (DILAUDID) up to a total of 2 mg for moderate or severe pain. Notify Provider to assess for uncontrolled pain or analgesic side effects., PACU HYDROmorphone (PF) (DILAUDID) injection 0.4 mg 0.4 mg, Intravenous, EVERY 5 MIN PRN, severe pain, Starting on Sat05/13/23 at 1406, Use FentaNYL (SUBLIMAZE) first if ordered. Administer HYDROmorphone (DILAUDID) up to a total of 2 mg for moderate or severe pain. Notify Provider to assess for uncontrolled pain or analgesic side effects., PACU ondansetron (ZOFRAN ODT) ODT tab 4 mg(Linked Group 1) 4 mg, Oral, EVERY 30 MIN PRN, nausea, Starting on Sat05/13/23 at 1406, For 2 doses, MAX total dose = 8 mg, including OR dosing. If not resolved in 15 minutes, then go to step 2 [prochlorperazine (COMPAZINE), if ordered]. With dry hands, peel back foil backing and gently remove tablet. Do not push oral disintegrating tablet through foil backing. Administer immediately on tongue and oral disintegrating tablet dissolves in seconds, then swallow with saliva. Liquid not required., PACU ondansetron (ZOFRAN ODT) ODT tab 4 mg(Linked Group 2) 4 mg, Oral, EVERY 30 MIN PRN, nausea, Starting on Sat05/13/23 at 1406, For 2 doses, MAX total dose = 8 mg, including OR dosing. If not resolved in 15 minutes, then go to step 2 [prochlorperazine (COMPAZINE), if ordered]. With dry hands, peel back foil backing and gently remove tablet. Do not push oral disintegrating tablet through foil backing. Administer immediately on tongue and oral disintegrating tablet dissolves in seconds, then swallow with saliva. Liquid not required., Phase ll ondansetron (ZOFRAN) injection 4 mg(Linked Group 1) 4 mg, Intravenous, EVERY 30 MIN PRN, nausea, Administer over 2-5 Minutes, Starting on Sat05/13/23 at 1406, For 2 doses, MAX total dose = 8 mg, including OR dosing. If not resolved in 15 minutes, then go to step 2 [prochlorperazine (COMPAZINE), if ordered]. Irritant., PACU ondansetron (ZOFRAN) injection 4 mg(Linked Group 2) 4 mg, Intravenous, EVERY 30 MIN PRN, nausea, Administer over 2-5 Minutes, Starting on Sat05/13/23 at 1406, For 2 doses, MAX total dose = 8 mg, including OR dosing. If not resolved in 15 minutes, then go to step 2 [prochlorperazine (COMPAZINE), if ordered]. Irritant., Phase ll oxyCODONE (ROXICODONE) tablet 5 mg 5 mg, Oral, ONCE PRN, other, pain control or improvement in physical function.??, Starting on Sat05/13/23 at 1406, For 1 dose, Notify provider to assess for uncontrolled pain or analgesic side effects. oxyCODONE (ROXICODONE) tablet 5 mg 5 mg, Oral, ONCE PRN, moderate pain, Starting on Sat05/13/23 at 1406, For 1 dose, Max: 5 mg for opioid-na??ve patient., Phase ll oxyCODONE IR (ROXICODONE) tablet 10 mg 10 mg, Oral, ONCE PRN, severe pain, Starting on Sat05/13/23 at 1406, For 1 dose, Max: 5 mg for opioid-na??ve patient. Use caution with patient Age GREATER than 65 years, COPD, or CrCl LESS than 50 mL/min., Phase ll sodium chloride 0.9% (bottle) irrigation (CANCELED) PRN, Starting on Sat05/13/23 at 1353, Intra-procedure 1353 ($Given - Provi davina: Shiva Kruger MD) Linked Groups Order Group 1: ondansetron (ZOFRAN ODT) ODT tab 4 mgJump to med 4 mg, Oral, EVERY 30 MIN PRN, nausea, Starting on Sat05/13/23 at 1406, For 2 doses, MAX total dose = 8 mg, including OR dosing. If not resolved in 15 minutes, then go to step 2 [prochlorperazine (COMPAZINE), if ordered]. With dry hands, peel back foil backing and gently remove tablet. Do not push oral disintegrating tablet through foil backing. Administer immediately on tongue and oral disintegrating tablet dissolves in seconds, then swallow with saliva. Liquid not required., PACU Or ondansetron (ZOFRAN) injection 4 mgJump to med 4 mg, Intravenous, EVERY 30 MIN PRN, nausea, Administer over 2-5 Minutes, Starting on Sat05/13/23 at 1406, For 2 doses, MAX total dose = 8 mg, including OR dosing. If not resolved in 15 minutes, then go to step 2 [prochlorperazine (COMPAZINE), if ordered]. Irritant., PACU Group 2: ondansetron (ZOFRAN ODT) ODT tab 4 mgJump to med 4 mg, Oral, EVERY 30 MIN PRN, nausea, Starting on Sat05/13/23 at 1406, For 2 doses, MAX total dose = 8 mg, including OR dosing. If not resolved in 15 minutes, then go to step 2 [prochlorperazine (COMPAZINE), if ordered]. With dry hands, peel back foil backing and gently remove tablet. Do not push oral disintegrating tablet through foil backing. Administer immediately on tongue and oral disintegrating tablet dissolves in seconds, then swallow with saliva. Liquid not required., Phase ll Or ondansetron (ZOFRAN) injection 4 mgJump to med 4 mg, Intravenous, EVERY 30 MIN PRN, nausea, Administer over 2-5 Minutes, Starting on Sat05/13/23 at 1406, For 2 doses, MAX total dose = 8 mg, including OR dosing. If not resolved in 15 minutes, then go to step 2 [prochlorperazine (COMPAZINE), if ordered]. Irritant., Phase ll documented in this encounter Care Teams Utilities Manager Relationship Specialty Start Date End Date Ondina Chávez MD [facility] [address] [place] [address] PCP - General Family Medicine 05/07/23 documented as of this encounter
--- OUTSIDE RECORDS SUMMARY | 2023-08-08 18:09 | XMS_ITS | Encounter Summary ---
Author Name Unknown Organization [facility] Address [address] [place] [address]. [place] [address] Care Team Providers Care Cork Molder Name Role Phone Ondina Chávez MD Primary Care Provider Encounter Details Date Type Department Care Team (Late st Contact Info) Description 05/10/2023 Telephone [facility] [address] 4[address] [place] [address] Rachel Sanz PA-C [address] [place] [address] Social History Tobacco Use Types Packs/Day Years [...] encounter Miscellaneous Notes * Telephone Encounter - Rachel Sanz PA-C - 05/10/2023 1:50 PM CDT Spoke to the patient about her lab results. CMP electrolytes slightly off. Encourage gatorade and adding salt to foods, continue to hydrate. Patient has been vomiting for weeks, improved with zofran. Some abnormalities with multiple myeloma labs. Biopsy will give us the final answer. All questions answered. documented in this encounter Plan of Treatment Not on file documented as of this encounter Visit Diagnoses Not on filedocumented in this encounter Care Teams Cork Molder Relationship Specialty Start Date End Date Ondina Chávez MD [facility] [address] [place] [address] PCP - General Family Medicine 05/07/23 documented as of this encounter
--- OUTSIDE RECORDS SUMMARY | 2023-08-08 18:09 | XMS_ITS | Encounter Summary ---
Author Name Unknown Organization [facility] Address [address] [place] [address]. [place] [address] Care Team Providers Care Sql Engineer Name Role Phone Ondina Chávez MD Primary Care Provider [phone] Reason for Visit * Auth/Cert (Routine) Specialty Diagnoses / Procedures Referred By Mikki t Referred To Contact Surgery Diagnoses Bone cyst Bone cyst [M85.60] Procedures GA BIOPSY BONE,TROCAR/NEEDLE SUPERFICIAL GA BONE BIOPSY,TROCAR/NEEDLE DEEP GA BIOPSY BONE OPEN, SUPERIFICAL GA BIOPSY BONE,EXCISIONAL DEEP GA OPEN TX FEMORAL FRACTURE DISTAL MED/LAT CONDYLE biopsy left distal femur. possible plating Ur Periop [facility] [place] [address] Referral ID Status Reason Start Date Expiration Date Visits Re quested Visits Authorized [id number] 1 1 Encounter Details Date Type Department Care Team (Late st Contact Info) Description 05/13/2023 11:30 AM CDT - 05/13/2023 1:10 PM CDT Surgery [facility] [address] [place] [address] Shiva Kruger MD [address] [place] [address] Biopsy left distal femur Surgery Details Date/Time Status Location OR Service Patient Class Case Class Case Type Trauma Case? 05/13/23 11:30 AM Posted UR OR UR OR 11 Orthopedics Same Day Surgery Elective Panel 1 Procedure LRB Anes Op Region Wound Class Comments Biopsy left distal femur Left General Leg I-Seun an Surgeon Surgeon Role Service Panel Shiva Kruger MD Primary Orthopedics 1 Rachel Sanz PA-C Assisting Assista nt Authorization 1 Jose Crespo MD Resident - Assisting 1 documented in this encounter Social History Tobacco Use Types Packs/Day Years [...] Sign Reading Time Taken Comments Blood Pressure 120/68 05/13/2023 8:55 AM CDT Pulse 90 05/13/2023 8:55 AM CDT Temperature 36.6 ??C (97.9 ??F) 05/13/2023 8:55 AM CD T Respiratory Rate 18 05/13/2023 8:55 AM CDT Oxygen Saturation 100% 05/13/2023 8:55 AM CDT Inhaled Oxygen Concentration - - Weight [...] doctor, call Dr. Kruger, Orthopedic, or: ' [phone] and ask for the Resident Wheel Press Clerk for: Orthopedic (answered 24 hours a day) ' Emergency Department: [place] [place] [facility]: [phone] [facility]: [phone] Rev. 04/2014 documented in this encounter Medications [...] Crespo MD - 05/13/2023 1:55 PM CDT [facility] Brief Operative Note Pre-operative diagnosis: Bone cyst [M85.60] Post-operative diagnosis Same as pre-operative diagnosis Procedure: biopsy left distal femur., Left - Leg Surgeon: Surgeon(s) and Role: * Shiva Kruger MD - Primary * Rachel Sanz PA-C - Assisting * Jose Crespo MD - [...] with the findings. JJ FLOYD DO Rachel Rai [facility] O RDERABLES * FISH (05/13/2023 [...] or part of chromosome 22. ISCN: nuc homero([id number])[81/ 200]/(IJOO9p1)[6 0/200]/(ZVDW8c9) [48/200] ADDITIONAL COMMENTS: Control ranges: EWSR1 rearr: 0-0.1% JMEI3x0: 0-3.4% YRUM7z5: 0-1.8% AGSI4k6: 0-0.1% Analyte Specific Reagents (ASRs) are used in many laboratory tests necessary for standard medical care and generally do not require FDA approval. This test was developed and its performance characteristics determined by the [facility]. It has not been cleared or approved by the U.S. Food and Drug Administration. Electronically signed by Jose Patel M.D., Ph.D., [facility] on 05/21/23 at 5:03 PM. 05/21/2023 5:03 PM [facility] CHIEF CYTOGENETICS Bone Biopsy STRUCTURE OF LEFT FEMUR / Unknown 05/13/2023 1:39 PM CDT 05/17/2023 4:50 PM CDT Shiva BOSE U CYTOGENETICS [facility] Cytogenetics Lab [address] [facility] Building Room 15[address] [phone] * MTB Complex and Resistance (05/13/2023 1:32 PM CDT) Mycobacterium Tuberculosis PCR Not Detected 05/16/2023 3:20 AM CDT [facility] MTB Rifampin Resistance by PCR Not Applicable 05/16/2023 3:20 AM CDT [facility] MTB Complex Interpretation Not Detected 05/16/2023 3:20 AM CDT [facility] Comment: MTB target is not detected within the sample. INTERPRETIVE INFORMATION: Mycobacterium tuberculosis Complex Detection and Rifampin Resistance by PCR Mycobacterial culture is a more sensitive method than molecular testing for the diagnosis of tuberculosis and is still considered the gold standard. When possible, a culture must be performed regardless of the molecular method test result. Performed By: [employer] [address] [place] [id number] Transition Program Manager: Ventura Adrian MD, PhD CLIA Number: [id number] Bone Biopsy STRUCTURE OF LEFT FEMUR / Unknown Non-blood Collection / Unknown 05/13/2023 1:32 PM CDT 05/13/2023 1:58 PM CDT Shiva Kruger MD LAB - BLOOD ORDER DANIEL [address] [address], [facility] [phone] * Bone Biopsy Aerobic Bacterial Culture Routine (05/13/2023 1:32 PM CDT) Pathologist [facility] Culture No Growth BRADLY 05/19/2023 7:06 AM GEOPHYSICAL LABORATORY CHIEF [facility] Bone Biopsy STRUCTURE OF LEFT FEMUR / Unknown Non-blood Collection / Unknown 05/13/2023 1:32 PM CDT 05/13/2023 1:58 PM CDT Shiva Kruger MD LAB - MICRO GENER AL ORDERABLES [facility] Inf. Diseases Diag. Lab [address] [facility], [address] [place] [address], [facility] [phone] * Fungal or Yeast Culture Routine (05/13/2023 1:32 PM CDT) Culture No Growth BRADLY 06/10/2023 7:35 AM GEOPHYSICAL LABORATORY CHIEF [facility] Bone Biopsy STRUCTURE OF LEFT FEMUR / Unknown Non-blood Collection / Unknown 05/13/2023 1:32 PM CDT 05/13/2023 1:58 PM CDT Shiva Kruger MD LAB - MICRO GENER AL ORDERABLES [facility] Inf. Diseases Diag. Lab [address] [facility], Room [place] [address], [facility] [phone] * Anaerobic Bacterial Culture Routine (05/13/2023 1:32 PM CDT) Culture No anaerobic organisms isolated BRADLY 05/20/2023 9:34 AM GEOPHYSICAL LABORATORY CHIEF [facility] Bone Biopsy STRUCTURE OF LEFT FEMUR / Unknown Non-blood Collection / Unknown 05/13/2023 1:32 PM CDT 05/13/2023 1:58 PM CDT Shiva Kruger MD LAB - MICRO GENER AL ORDERABLES Performing Organization Address City/[facility]/ZIP Co de Phone Number [facility] Inf. Diseases Diag. Lab [address] [facility], [address] [place] [address], [facility] [phone] * (ABNORMAL) Surgical Pathology Exam (05/13/2023 1:26 PM CDT) Case Report Surgical Pathology Report ? Case: [id number] ? Authorizing Provider: ??Shiva Kruger MD ?? [...] if ? needed ? 3 6:13 PM [facility] Addendum FISH test demonstrates no evidence of EWSR1 gene rearrangement, rendering the possibility of clear cell sarcoma unlikely. The original final diagnosis of melanoma is therefore unchanged. 3 6:13 PM [facility]ICAL LAB[facility]ORY [facility] Addendum electronically signed by La Nena Velarde MD on 05/21/2023 at 6:13 PM Final Diagnosis A, B. Bone, left femur tumor, biopsy: - Metastatic high grade malignancy most consistent with melanoma - See comment 3 6:[address] [facility] Comment:This is an appended report. [...] reported in an addendum. 3 6:[address] [facility] Comment:This is an appended report. These results have been appended to a previously preliminary verified report. Clinical Information History of a heterogeneous solid cystic hypermetabolic pelvic mass abutting the uterus and cecum, multiple lytic osseous and pulmonary metastatic lesions, and a right renal cortical soft tissue nodule. 3 6:[address] [facility] Comment:This is an appended report. These results have been appended to a previously preliminary verified report. Intraoperative Consultation A(1). Femur, Left, Left femur tumor: AFS1: Metastatic carcinoma 3 6:[address] [facility] Gross Description A(1). Femur, Left, [...] (decal) B2-B3: Soft tissue 3 6:[address] [facility] Comment:This is an appended report. [...] determine the final diagnosis. 3 6:[address] [facility] Comment:This is an appended report. These results have been appended to a previously preliminary verified report. Disclaimer Analyte Specific Reagents (ASRs) are used in many laboratory tests necessary for standard medical care and generally do not require FDA approval. This test was developed and its performance characteristics determined by [facility]. It has not been cleared or approved by the U.S. Food and Drug Administration. [facility] are certified for the performance of high-complexity clinical testing under the Clinical Laboratory Improvement Amendments of 1988 (CLIA), and in keeping with the certification requirements, the laboratory has verified this test's accuracy, precision and/or validity of the method. 3 6:[address] [facility] Comment:This is an appended report. These results have been appended to a previously preliminary verified report. MCRS Yes(A) N/A 3 6:[address] [facility] Comment:This is an appended report. These results have been appended to a previously preliminary verified report. Performing Labs The technical component of this testing was completed at [facility] 3 6:[address] [facility] Comment:This is an appended report. These results have been appended to a previously preliminary verified report. Case Images 3 6:[address] [facility] Bone Biopsy STRUCTURE OF LEFT FEMUR / Unknown 05/13/2023 1:26 PM CDT 05/13/2023 1:36 PM CDT Bone biopsy specimen (specimen) STRUCTURE OF LEFT FEMUR / Unknown 05/13/2023 1:39 PM CDT 05/13/2023 2:17 PM CDT Shiva Kruger MD LAB - [facility] Specialty Lab [address] [facility], [address] [place] [address], [facility] [phone] UR LABORATORY [facility] Acute Care Lab [address] [facility], [address] [place] [address], [facility] [phone] documented in this encounter Visit Diagnoses Diagnosis Bone cyst- Primary Cyst of bone (localized), unspecified 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) Bone cyst Cyst of bone (localized), unspecified Metastatic carcinoma [...] Phase ll sodium chloride 0.9% (bottle) irrigation PRN, Starting on Sat05/13/23 at 1353, Intra-procedure $Given 05/13/2023 1:53 PM CDT 50 mLs Operative Site/Surgi amy Site documented in this encounter Active and Recently [...] ll documented in this encounter Care Teams Sql Engineer Relationship Specialty Start Date End Date Ondina Chávez MD [facility] [address] [place] [address] PCP - General Family Medicine 05/07/23 documented as of this encounter
--- OUTSIDE RECORDS SUMMARY | 2023-08-08 18:09 | XMS_ITS | Encounter Summary ---
Author Name Unknown Organization [facility] Address [address] [place] [address] Care Team Providers Care Dust Control Engineer Name Role Phone Ondina Chávez MD Primary Care Provider Encounter Details Date Type Department Care Team (Late st Contact Info) Description 05/07/2023 Telephone [facility] [address] [place] [phone] Shiva Kruger MD [address] [place] [address] Social History Tobacco Use Types Packs/Day Years Used Date Smoking Tobacco: Never Assessed Adolescent Education Answer Date Record ed Getting School Help Needed Not on file 05/07 Sex and Gender Information Value Date Recorded Sex Assigned at Not on file Gender Identity Not on file Sexual Orientation Not on file documented as of this encounter Plan of Treatment Not on file documented as of this encounter Visit Diagnoses Not on filedocumented in this encounter Care Teams Dust Control Engineer Relationship Specialty Start Date End Date Ondina Chávez MD [facility] [address] [place] [address] PCP - General Family Medicine 05/07/23 documented as of this encounter
--- OUTSIDE RECORDS SUMMARY | 2023-08-08 18:09 | XMS_ITS | Encounter Summary ---
Author Name Unknown Organization [place] Address [address] [place] [address] Care Team Providers Care Washing Tub Operator Name Role Phone Ondina Chávez MD Primary Care Provider [phone] Encounter Details Date Type Department Care Team (Late st Contact Info) Description 05/09/2023 4:45 PM CDT Lab [address] 1st [place] [address] Bone cyst; Primary hypertension Social History Tobacco Use Types Packs/Day Years [...] Procedure Name Priority Date/Time Associated Diagnosis Comments PROTEIN ELECTROPHORESIS, SERUM Routine 05/09/2023 4:21 PM CDT Bone cyst TOTAL PROTEIN, SERUM FOR ELP Routine 05/09/2023 4:21 PM CDT Bone cyst CBC WITH PLATELETS AND DIFFERENTIAL Routine 05/09/2023 4:21 PM CDT Bone cyst TYPE AND SCREEN, ADULT Routine 4:21 PM CDT Primary hypertension [place] LIGHT CHAIN Routine 05/09/2023 4:21 PM CDT Bone cyst CBC WITH PLATELETS & DIFFERENTIAL Routine 05/09/2023 4:21 PM CDT Bone cyst ERYTHROCYTE SEDIMENTATION RATE AUTO Routine 05/09/2023 4:21 PM CDT Bone cyst PROTEIN ELECTROPHORESIS Routine 05/09/20 4:21 PM CDT Bone cyst CRP INFLAMMATION Routine 05/09/2023 4:21 PM CDT Bone cyst COMPREHENSIVE METABOLIC PANEL Routine 05/09/2023 4:21 PM CDT Bone cyst ABO/RH TYPE AND SCREEN Routine 4:21 PM CDT Primary hypertension documented in this encounter Results * Adult Type and Screen (05/09/2023 4:21 PM CDT) ABO/RH(D) O NEG 05/08/2023 7:00 PM CDT BLOOD BANK Antibody Screen Negative Negative 05/08/2023 7:00 PM CDT BLOOD BANK SPECIMEN EXPIRATION DATE [id number] 05/08/2023 7:00 PM CDT BLOOD BANK Blood STRUCTURE OF LEFT UPPER LIMB / Unknown Venipuncture / Unknown 05/09/2023 4:21 PM CDT 05/09/2023 4:21 PM CDT Lily Meyers INSURANCE EXAMINING CLERK DIRECTOR SPECIAL EDUCATION LAB - BLOOD BAN K TEST ORDER BLOOD BANK [address] [place] [address], [facility] * (ABNORMAL) Protein Electrophoresis, Serum (05/09/2023 4:21 PM CDT) Albumin 3.5(L) 3.7 - 5.1 g/dL 05/10/2023 1:06 PM CDT [facility] CORE/PROT/E NDO Alpha 1 0.6(H) 0.2 - 0.4 g/dL 05/10/2023 1:06 PM CDT [facility] SPECIALTY CORE/PROT/E NDO Alpha 2 1.3(H) 0.5 [...] PM CDT 05/09/2023 4:21 PM CDT Rachel Cecelia Sanz PA-C LAB - BL OOD ORDERABLES [facility] SPECIALTY CORE/PROT/ENDO Specialty Core/Prot/Endo [address] [facility] [address] [facility], Room [address] [place] [address], [facility] [phone] * Total Protein, Serum for ELP (05/09/2023 4:21 PM CDT) Total Protein Serum for ELP 7.9 6.4 - 8.3 g/dL 05/10/2023 3:42 AM CDT [facility] Blood STRUCTURE OF LEFT UPPER LIMB / Unknown Venipuncture / Unknown 05/09/2023 4:21 PM CDT 05/09/2023 4:21 PM CDT Rachel Sanz PA-C LAB - BL OOD ORDERABLES [facility] [place] [facility] [address] [facility], [address] [place] [address], [facility] [phone] * (ABNORMAL) CBC with platelets and differential (05/09/2023 4:21 PM CDT) [facility] WBC Count 7.9 4.0 - 11.0 10e3/uL 05/09/2023 4:25 PM CDT [facility] RBC Count 3.37(L) 3.80 - 5.20 10e6/uL 05/09/2023 4:25 PM CDT [facility] Hemoglobin 10.2(L) 11.7 - 15.7 g/dL 05/09/2023 4:25 PM CDT [facility] Hematocrit 30.2(L) 35.0 - 47.0 % 05/09/2023 4:25 PM CDT [facility] MCV 90 78 - 100 fL 05/09/2023 4:25 PM CDT [facility] MCH 30.3 26.5 - 33.0 pg 05/09/2023 4:25 PM CDT [facility] MCHC 33.8 31.5 - 36.5 g/dL 05/09/2023 4:25 PM CDT [facility] RDW 13.4 10.0 - 15.0 % 05/09/2023 4:25 PM CDT [facility] Platelet Count 460(H) 150 - 450 10e3/uL 05/09/2023 4:25 PM CDT [facility] % Neutrophils 72 % 05/09/2023 4:25 PM CDT [facility] % Lymphocytes 19 % 05/09/2023 4:25 PM CDT [facility] % Monocytes 9 % 05/09/2023 4:25 PM CDT [facility] % Eosinophils 0 % 05/09/2023 4:25 PM CDT [facility] % Basophils 0 % 05/09/2023 4:25 PM CDT [facility] % Immature Granulocytes 0 % 05/09/2023 4:25 PM CDT [facility] NRBCs per 100 WBC 0 <1 /100 023 4:25 PM CDT [facility] Absolute Neutrophils 5.6 1.6 - 8.3 10e3/uL 05/09/2023 4:25 PM CDT [facility] Absolute Lymphocytes 1.5 0.8 - 5.3 10e3/uL 05/09/2023 4:25 PM CDT [facility] Absolute Monocytes 0.7 0.0 - 1.3 10e3/uL 05/09/2023 4:25 PM CDT [facility] Absolute Eosinophils 0.0 0.0 - 0.7 10e3/uL 05/09/2023 4:25 PM CDT [facility] Absolute Basophils 0.0 0.0 - 0.2 10e3/uL 05/09/2023 4:25 PM CDT [facility] Absolute Immature Granulocytes 0.0 <=0.4 10e3/uL 05/09/2023 4:25 PM CDT [facility] Absolute NRBCs 0.0 10e3/uL 05/09/2023 4:25 PM CDT [facility] Blood STRUCTURE OF LEFT UPPER LIMB / Unknown Venipuncture / Unknown 05/09/2023 4:21 PM CDT 05/09/2023 4:21 PM CDT Rachel Sanz PA-C LAB - BL OOD ORDERABLES [facility] [employer] [address] [facility] 1st [place] [address] * (ABNORMAL) [place] and lambda light chain (05/09/2023 4:21 PM CDT) [place] Free Light Chains 4.33(H) 0.33 - 1.94 mg/dL 05/10/2023 11:06 AM CDT [facility] CORE/PROT/ENDO Lambda Free Light Chains 2.91(H) 0.57 - 2.63 mg/dL 05/10/2023 11:06 AM CDT SPECIALTY CORE/PROT/ENDO [place] /Lambda Ratio 1.49 0.26 - 1.65 05/10/2023 11:06 AM CDT SPECIALTY CORE/PROT/ENDO Blood STRUCTURE OF LEFT UPPER LIMB / Unknown Venipuncture / Unknown 05/09/2023 4:21 PM CDT 05/09/2023 4:21 PM CDT Rachel Sanz PA-C LAB - BL OOD ORDERABLES SPECIALTY CORE/PROT/ENDO Specialty Core/Prot/Endo [address] [facility] [address] Building, Room [address] [phone] * (ABNORMAL) Erythrocyte sedimentation rate auto (05/09/2023 4:21 PM CDT) Erythrocyte Sedimentation Rate 100(H) 0 - 20 mm/hr 05/09/2023 4:32 PM CDT [facility] Blood STRUCTURE OF LEFT UPPER LIMB / Unknown Venipuncture / Unknown 05/09/2023 4:21 PM CDT 05/09/2023 4:21 PM CDT Rachel Sanz PA-C LAB - BL OOD ORDERABLES [facility] [address] [place] [address] 1st [place] [address] * (ABNORMAL) CRP inflammation (05/09/2023 4:21 PM CDT) CRP Inflammation 75.60(H) <5.00 mg/L 05/09/2023 4:57 PM CDT [facility] Blood STRUCTURE OF LEFT UPPER LIMB / Unknown Venipuncture / Unknown 05/09/2023 4:21 PM CDT 05/09/2023 4:21 PM CDT Rachel Sanz PA-C LAB - BL OOD ORDERABLES [facility] [address] [place] [address] 1st [place] [address] * (ABNORMAL) Comprehensive metabolic panel (05/09/2023 4:21 PM CDT) Sodium 133(L) 135 - 145 mmol/L 05/09/2023 4:57 PM CDT [facility] Comment:Reference intervals for this test were updated on 04/09/2023 to more accurately reflect our healthy population. There may be differences in the flagging of prior results with similar values performed with this method. Interpretation of those prior results can be made in the context of the updated reference intervals. Potassium 3.3(L) 3.4 - 5.3 mmol/L 05/09/2023 4:57 PM CDT [facility] Carbon Dioxide (CO2) 25 22 - 29 mmol/L 05/09/2023 4:57 PM CDT [facility] Anion Gap 18(H) 7 - 15 mmol/L 05/09/2023 4:57 PM CDT [facility] Urea Nitrogen 14.1 6.0 - 20.0 mg/dL 05/09/2023 4:57 PM CDT [facility] Creatinine 0.73 0.51 - 0.95 mg/dL 05/09/2023 4:57 PM CDT [facility] GFR Estimate >90 >60 mL/min/1. 73m2 05/09/2023 4:57 PM CDT [facility] Calcium 10.1(H) 8.6 - 10.0 mg/dL 05/09/2023 4:57 PM CDT [facility] Chloride 90(L) 98 - 107 mmol/L 05/09/2023 4:57 PM CDT [facility] Glucose 95 70 - 99 mg/dL 05/09/2023 4:57 PM CDT [facility] Alkaline Phosphatase 110(H) 35 - 104 U/L 05/09/2023 4:57 PM CDT [facility] AST 25 0 - 45 U/L 05/09/2023 4:57 PM CDT [facility] Comment:Reference intervals for this test were updated on 12/24/2022 to more accurately reflect our healthy population. There may be differences in the flagging of prior results with similar values performed with this method. Interpretation of those prior results can be made in the context of the updated reference intervals. ALT 16 0 - 50 U/L 05/09/2023 4:57 PM CDT [facility] Comment:Reference intervals for [...] - 8.3 g/dL 05/09/2023 4:57 PM CDT [facility] Albumin 4.1 3.5 - 5.2 g/dL 05/09/2023 4:57 PM CDT [facility] Bilirubin Total 0.4 <=1.2 mg/dL 05/09/2023 4:57 PM CDT [facility] Blood STRUCTURE OF LEFT UPPER LIMB / Unknown Venipuncture / Unknown 05/09/2023 4:21 PM CDT 05/09/2023 4:21 PM CDT Rachel Sanz PA-C LAB - BL OOD ORDERABLES [facility] [address] 1st [place] [address] documented in this encounter Visit Diagnoses Diagnosis Bone cyst Cyst of bone (localized), unspecified Primary hypertension Unspecified essential hypertension documented in this encounter Care Teams Washing Tub Operator Relationship Specialty Start Date End Date Ondina Chávez MD [facility] [address] [place] [address] PCP - General Family Medicine 05/07/23 documented as of this encounter
--- OUTSIDE RECORDS SUMMARY | 2023-08-08 18:09 | XMS_ITS | Encounter Summary ---
Author Name Unknown Organization [place] Address [address] [place] [address] Care Team Providers Care Payment Manager Name Role Phone Ondina Chávez MD Primary Care Provider [phone] Reason for Visit * Reason Onset Date Comments Previsit 05/09/2023 Encounter Details Date Type Department Care Team (Late st Contact Info) Description 05/09/2023 PRE VISIT [facility] [address] 4th [place] [phone] Shiva Kruger MD [address] [place], [place] [address] Previsit Social History Tobacco Use Types Packs/Day Years [...] encounter Miscellaneous Notes * Telephone Encounter - Ondina Beltran - 05/07/2023 9:05 PM CDT Action May 07, 2023 9:20 PM MT Action Taken Sent a request for imaging from [facility]. Action May 09, 2023 9:54 AM MT Action Taken Imaging from [facility] received and called [facility] for the MRI done yesterday.The rep states that the read is not available, just imaging and we confirmed that the results will not be ready today. Will have to call back another time for the read. DIAGNOSIS: Left Distal Femur Osseous Lesion APPOINTMENT DATE: 05/09/2023 NOTES STATUS DETAILS OFFICE NOTE from referring provider Media Tab 04/19/2023 - aramis Zambrano MD - [facility] OFFICE NOTE from other specialist Media Tab 10/27/2014 - Josh Reynoso MD - [facility] DISCHARGE REPORT from the ER Media Tab 04/02/2023 - [facility] ED MEDICATION LIST Care Everywhere LABS MRI PACS [facility]: 05/08/2023 - LT Femur [place]: 05/03/2023, 10/15/2014- LT Knee CT SCAN PACS [facility]: 04/02/2023 - Left Lower Extremity XRAYS (IMAGES & REPORTS) PACS [facility]: 04/19/2023 - Left Knee 04/19/2023 - Pelvis documented in this encounter Plan of Treatment Not on file documented as of this encounter Visit Diagnoses Not on filedocumented in this encounter Care Teams Payment Manager Relationship Specialty Start Date End Date Ondina Chávez MD [facility] [address] [place] [address] PCP - General Family Medicine 05/07/23 documented as of this encounter
--- OUTSIDE RECORDS SUMMARY | 2023-08-08 18:09 | XMS_ITS | Encounter Summary ---
Author Name Unknown Organization [place] Address [address] [place] [id number] Care Team Providers Care Household Cook Name Role Phone Ondina Chávez MD Primary Care Provider [phone] Encounter Details Date Type Department Care Team (Latest Contact Info) Description 05/09/2023 Travel Social History Tobacco Use Types Packs/Day [...] on filedocumented in this encounter Care Teams Household Cook Relationship Specialty Start Date End Date Ondina Chávez MD [facility] [address] [place] [address] PCP - General Family Medicine 05/07/23 documented as of this encounter
--- OUTSIDE RECORDS SUMMARY | 2023-08-08 18:09 | XMS_ITS | Encounter Summary ---
Author Name Unknown Organization [facility] Address [address] [place] [address] Care Team Providers Care Tilting Head Band Sawyer Name Role Phone Ondina Chávez MD Primary Care Provider [phone] Reason for Visit * Reason Comments Pre-Op Exam Encounter Details Date Type Department Care Team (Latest Contact Info) Description 05/09/2023 3:30 PM CDT Office Visit [facility] [address] 5th [place] [address] Lily Meyers, GAIL [address] [address] Preop examination (Primary Dx); Primary hypertension Anesthesia Record Procedure Summary Procedure Name Responsible Anesthesiologist Anesthesia Start Time Anesthesia Stop Time Biopsy left distal femur (Left: Leg) Suleiman Sanz MD 05/13/23 1243 05/13/23 1400 Events Date Time Event Comment 05/13/2023 1243 AN REASSESS I attest that I have identified and re-evaluated the patient immediately before the induction of anesthesia and I am satisfied that the anesthetic plan is suitable for the patient's condition and procedure. The first vital signs recorded are pre- induction. Emelia Bermudez APRN CRNA 1243 An Start 1243 An Start Data 1251 An Induction 1255 An Intubation 1324 Quick Note Antibiotic held per Dr. Kruger 1353 AN Extubation All extubation criteria met prior to removal. 1353 an stop data 1400 An Stop Electronically signed by Emelia Bermudez APRN CRNA on May 13, 2023 2:01 PM Meds * Agents No agents on file. * Blood No blood administrations on file. Lines, Drains, and Airways Type Details Placement Removal Incision/Surgical Site 05/13/23; 1320; Anterior, Left; Thigh 05/13/23 1320 by Marilyn León RN Incision/Surgical Site 05/13/23; 1347; L eft; Leg 05/13/23 1347 by Seamus Childers RN Peripheral IV 05/13/23; 0945; 20 G ; BD; Right; Hand; Chlorhexidine; Injectable; 1; Tolerated well 05/13/23 0945 by Zhane Ware RN 05/13/23 1642 by Myriam Escudero RN ETT Placement Date: 05/13/23; Placement Time: 1313 (created via procedure documentation); Mask Ventilation: 1; Induction Type: Intravenous; Ease of Intubation: Easy; Technique: Direct laryngoscopy; ETT Type: Oral; DL Blade Size: MAC 3; Grade View: 1; Adjucts: Stylet; Placement Person: COPPERSMITH HELPER; Attempts: 1 05/13/23 1313 by Emelia Bermudez APRN COPPERSMITH HELPER 05/13/23 1353 by Emelia Bermudez APRN CRNA documented in this encounter Social History Tobacco [...] Sign Reading Time Taken Comments Blood Pressure 119/77 05/09/2023 3:18 PM CDT Pulse 91 05/09/2023 3:18 PM CDT Temperature 36.7 ??C (98 ??F) 05/09/2023 3:18 PM CDT Respiratory Rate 16 05/09/2023 3:18 PM CDT Oxygen Saturation 100% 05/09/2023 3:18 PM CDT Inhaled Oxygen Concentration - - Weight 82.3 kg (181 lb 6.4 oz) 05/09/2023 3:18 P M CDT Height 160.3 cm (5' 3.11) 05/09/2023 3:18 PM CD T Body Mass Index 32.02 05/09/2023 3:18 PM CDT documented in this encounter Patient Instructions * Patient Instructions* Ashley Montelongo RN - 05/09/2023 3:30 PM CDT Preparing for Your Surgery Name: Tony Cota : 1975 Today's Date: 05/09/2023 Arriving for surgery: Surgery date: 05/13/2023 Arrival time: 9:00 am Please come to: Please come to: [facility] [address] [place] [address]. [place] [address] The Green Ramp for patients and visitors is located beneath the [facility]. The parking facility entrance is at the intersection of [address] [place] [address] [address]. Patients and visitors who self-park will receive the reduced hospital parking rate (noticket validation needed). [employer] parking, located at the [facility] main entrance on [address] [place] [address], is available Saturday - Saturday from 7 am to 3:30 pm. Discounted parking pass options can be purchased from ancient art curator attendants during business hours. -Check in at the security desk in the [facility] ([facility]) Lobby. They willdirect you to the correct elevators. -Proceed to the 3rd floor, check in at the Adult Surgery Waiting Lounge. [phone] If you are in need of directions, a wheelchair or escort please stop at the Information Desk in thelobby. Inform the information person that you are here for surgery; a wheelchair and escort to [address] will be provided. An escort to the Adult Surgery Waiting Lounge will be provided. What can I eat or drink? - You may eat and drink normally up to 8 hours prior to arrival time. (Until Midnight) - You may have clear liquids until 2 hours prior to arrival time. (Until 7 am) Examples of clear liquids: Water Clear broth Juices (apple, white grape, white cranberry and cider) without pulp Noncarbonated, powder based beverages (lemonade and Kirill-Aid) Sodas (Sprite, 7-Up, danny diaz and seltzer) Coffee or tea (without milk or cream) Gatorade - No Alcohol or cannabis products for at least 24 hours before surgery. Which medicines can I take? Hold Aspirin for 7 days before surgery. Hold Multivitamins for 7 days before surgery. Hold Supplements for 7 days before surgery. Hold Ibuprofen (Advil, Motrin) for 3 day(s) before surgery--unless otherwise directed by surgeon. Hold Naproxen (Aleve) for 4 days before surgery. - DO NOT take these medications the day of surgery: Lisinopril - PLEASE TAKE these medications the day of surgery: Omeprazole Acetaminophen (Tylenol) if needed Ondansetron if needed Oxycodone if needed How do I prepare myself? - Please take 2 showers (one the night prior to surgery and one the morning of surgery) using Scrubcare or Hibiclens soap. Use this soap only from the neck to your toes. Leave the soap on your skin for one minute--then rinse thoroughly. You may use your own shampoo and conditioner. No other hair products. - Please remove all jewelry and body piercings. - No lotions, deodorants or fragrance. - No makeup or fingernail nigerian. - Bring your ID and insurance card. -If you have a Deep Brain Stimulator, Spinal Cord Stimulator, or any Neuro Stimulator device---you must bring the remote control to the hospital. ALL PATIENTS GOING HOME THE SAME DAY OF SURGERY ARE REQUIRED TO HAVE A RESPONSIBLE ADULT TO DRIVE AND BE IN ATTENDANCE WITH THEM FOR 24 HOURS FOLLOWING SURGERY. Covid testing policy as of 06/19/2022 Your surgeon will notify and schedule you for a COVID test if one is needed before surgery--please direct any questions or COVID symptoms to your surgeon Questions or Concerns: - For any questions regarding the day of surgery or your hospital stay, please contact the Pre Admission Nursing Office at [phone]. - If you have health changes between today and your surgery, please call your surgeon. - For questions after surgery, please call your surgeons office. Current Visitor Guidelines You may have 2 visitors in the pre op area. Visiting hours: 8 a.m. to 8:30 p.m. You may have four visitors during your inpatient hospital stay. Patients confirmed or suspected to have symptoms of COVID 19 or flu: No visitors allowed for adult patients. Children (under age 18) can have 1 named visitor. People who are sick or showing symptoms of COVID 19 or flu: Are not allowed to visit patients--we can only make exceptions in special situations. Please follow these guidelines for your visit: Please maintain social distance Masking is optional--however at times you may be asked to wear a mask for the safety of yourself and others Clean your hands with alcohol hand county surveyor. Do this when you arrive at and leave the building andpatient room, And again after you touch your mask or anything in the room. Go directly to and from the room you are visiting. Stay in the patient???s room during your visit. Limit going to other places in the hospital as muchas possible Leave bags and jackets at home or in the car. For everyone???s health, please don???t come and go during your visit. That includes for smoking during your visit. documented in this encounter H&P Notes * Lily Meyers APRN TELEMARKETING SUPERVISOR - 05/09/2023 3:30 PM CDT Images from the original note were not included. Pre-Operative H & P CC: Preoperative exam to assess for increased cardiopulmonary risk while undergoing surgery and anesthesia. Date of Encounter: 05/09/2023 Primary Care Physician: Ondina Chávez Reason for visit: Encounter Diagnoses Name Primary? Preop examination Yes Primary hypertension HPI Tony Cota is a 47 year old female who presents for pre-operative H & P in preparation for Procedure Information Case: [id number] Date/Time: 05/13/23 1130 Procedures: biopsy left distal femur. (Left: Leg) possible plating (Left: Leg) Anesthesia type: General Diagnosis: Bone cyst [M85.60] Pre-op diagnosis: Bone cyst [M85.60] Location: [facility] OR 11 / [facility] OR Providers: Shiva Kruger MD The patient was seen by Dr. Kruger in orthopedic surgery consultation today for further evaluationof osseous lesions within the distal femur-- concerning for malignancy. Through Dr. Kruger's evaluation, he counseled the patient on the findings The above procedure has been scheduled for diagnosis. The patient presents to the PAC in person today with her , Francis, in preparation for the above scheduled procedure with comorbid conditions including History is obtained from the patient and chart review Hx of abnormal bleeding or anti-platelet use: denies Menstrual history: Patient's last menstrual period was 03/15/2023 (within days).: Past Medical History Past Medical History: Diagnosis Date Bone cyst of femur Essential hypertension Past Surgical History Past Surgical History: Procedure Laterality Date ENT SURGERY Fulshear teeth extracted. Prior to Admission Medications Current Outpatient Medications Medication Sig Dispense Refill acetaminophen (TYLENOL) 500 MG tablet Take 500-1,000 mg by mouth every 6 hours as needed for mild pain ibuprofen (ADVIL/MOTRIN) 200 MG tablet Take 200 mg by mouth every 4 hours as needed for pain lisinopril-hydrochlorothiazide (ZESTORETIC) 10-12.5 MG tablet Take 1 tablet by mouth every morning ondansetron (ZOFRAN ODT) [address] 4 mg under the tongue every 8 hours as needed oxyCODONE (ROXICODONE) 5 MG tablet Take 5 mg by mouth every 6 hours as needed traZODone (DESYREL) 50 MG tablet Take 50 mg by mouth at bedtime omeprazole 20 MG tablet Take 20 mg by mouth (Patient not taking: Reported on 05/09/2023) Allergies No Known Allergies Social History Social History Socioeconomic History Marital status: Spouse [...] on file Housing Stability: Not on file Family History No family history on file. Review of Systems The complete review of systems is negative other than noted in the HPI or here. Anesthesia Evaluation Pt has had prior anesthetic. No history of anesthetic complications (Fulshe[place] teeth extraction.) ROS/MED HX ENT/Pulmonary: - neg pulmonary ROS Neurologic: - neg neurologic ROS Cardiovascular: Comment: Denies cardiac symptoms including chest pain, SOB, palpitations, syncope, CHANEL, orthopnea, or PND. 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 Busy Mom of three children ages 17, 15 and 12. Hematologic: - neg hematologic ROS Musculoskeletal: Comment: Pain in left leg treated with tylenol and ibuprofen. GI/Hepatic: (+) GERD, Asymptomatic on medication, Renal/Genitourinary: - neg Renal ROS Endo: Comment: Weight loss of ~15 pounds over 2 months. Psychiatric/Substance Use: - neg psychiatric ROS Infectious Disease: - neg infectious disease ROS Malignancy: - neg malignancy ROS Other: (+) LMP: 03/15/2023, , BP 119/77 (BP Location: Right arm, Patient Position: Sitting, Cuff Size: Adult Regular) Pulse 91 Temp 98 ??F (36.7 ??C) (Oral) Resp 16 Ht 1.603 m (5' 3.11) Wt 82.3 kg (181 lb 6.4 oz) LMP03/15/2023 (Within Days) SpO2 100% No BMI 32.02 kg/m?? Physical Exam Constitutional: Awake, alert, cooperative, weepy intermittently and appears stated age. Eyes: Pupils equal, round and reactive to light, extra ocular muscles intact, sclera clear, conjunctiva normal. HENT: Normocephalic, oral pharynx with moist mucus membranes, good dentition. No goiter appreciated. Respiratory: Clear to auscultation bilaterally, no crackles or wheezing. Cardiovascular: Regular rate and rhythm, normal S1 and S2, and no murmur noted. Carotids +2, no bruits. No edema. Palpable pulses to radial DP and PT arteries. GI: Normal bowel sounds, soft, non-distended, non-tender, no masses palpated, no hepatosplenomegaly. Lymph/Hematologic: No cervical lymphadenopathy and no supraclavicular lymphadenopathy. Skin: Warm and dry. No rashes at anticipated surgical site. Musculoskeletal: Full ROM of neck. There is no redness, warmth, or swelling of the joints. Gross motor strength is normal. Neurologic: Awake, alert, oriented to name, place and time. Cranial nerves II- XII are grossly intact. Gait is normal. Neuropsychiatric: Calm, cooperative. Normal affect. Prior Labs/Diagnostic Studies All labs and imaging personally reviewed BASIC METABOLIC PANEL Specimen: Blood - Blood specimen (specimen) Component Ref Range & Units 4 mo ago Comments SODIUM 136 - 145 mmol/L 138 POTASSIUM 3.5 - 5.1 mmol/L 4.1 CHLORIDE 98 - 107 mmol/L 102 CO2,TOTAL 22 - 29 mmol/L 25 ANION GAP 5 - 18 11 GLUCOSE 70 - 99 mg/dL 99 CALCIUM 8.6 - 10.0 mg/dL 9.2 BUN 6 - 20 mg/dL 11 CREATININE 0.50 - 0.90 mg/dL 0.79 BUN/CREAT RATIO 10 - 20 14 eGFR >90 mL/min/1.73m2 >90 As of 09/26/2021, eGFR is calculated by the CKD-EPI creatinine equationwithout race adjustment. eGFR can be influenced by muscle mass, exercise, and diet. The reported eGFR is an estimation only and is only applicable if the renal function is stable. Resulting [facility] LABORATORY-CENTRAL LABORATORY Specimen Collected: 01/02/23 11:51 AM HEMOGLOBIN Specimen: Blood - Blood specimen (specimen) Component Ref Range & Units 4 mo ago HEMOGLOBIN 12.0 - 16.0 g/dL 13.0 MCV 80 - 100 fL 93 Resulting [facility] Specimen Collected: 01/02/23 11:51 AM FERRITIN Specimen: Blood - Blood specimen (specimen) Component Ref Range & Units 4 mo ago FERRITIN 15.0 - 150.0 ng/mL 28.3 Resulting [facility] LABORATORY-CENTRAL LABORATORY Specimen Collected: 01/02/23 11:51 AM LAB/DIAGNOSTIC STUDIES TODAY: Latest Reference Range & Units 05/09/23 16:21 Sodium 135 - 145 mmol/L 133 (L) Potassium 3.4 - 5.3 mmol/L 3.3 (L) Chloride 98 - 107 mmol/L 90 (L) Carbon Dioxide (CO2) 22 - 29 mmol/L 25 Urea Nitrogen 6.0 - 20.0 mg/dL 14.1 Creatinine 0.51 - 0.95 mg/dL 0.73 GFR Estimate >60 mL/min/1.73m2 >90 Calcium 8.6 - 10.0 mg/dL 10.1 (H) Anion Gap 7 - 15 mmol/L 18 (H) Albumin 3.5 - 5.2 g/dL 4.1 Protein Total 6.4 - 8.3 g/dL 8.4 (H) Alkaline Phosphatase 35 - 104 U/L 110 (H) ALT 0 - 50 U/L 16 AST 0 - 45 U/L 25 Bilirubin Total <=1.2 mg/dL 0.4 CRP Inflammation <5.00 mg/L 75.60 (H) Glucose 70 - 99 mg/dL 95 WBC 4.0 - 11.0 10e3/uL 7.9 Hemoglobin 11.7 - 15.7 g/dL 10.2 (L) Hematocrit 35.0 - 47.0 % 30.2 (L) Platelet Count 150 - 450 10e3/uL 460 (H) RBC Count 3.80 - 5.20 10e6/uL 3.37 (L) MCV 78 - 100 fL 90 MCH 26.5 - 33.0 pg 30.3 MCHC 31.5 - 36.5 g/dL 33.8 RDW 10.0 - 15.0 % 13.4 % Neutrophils % 72 % Lymphocytes % 19 % Monocytes % 9 % Eosinophils % 0 % Basophils % 0 Absolute Basophils 0.0 - 0.2 10e3/uL 0.0 Absolute Eosinophils 0.0 - 0.7 10e3/uL 0.0 Absolute Immature Granulocytes <=0.4 10e3/uL 0.0 Absolute Lymphocytes 0.8 - 5.3 10e3/uL 1.5 Absolute Monocytes 0.0 - 1.3 10e3/uL 0.7 % Immature Granulocytes % 0 Absolute Neutrophils 1.6 - 8.3 10e3/uL 5.6 Absolute NRBCs 10e3/uL 0.0 NRBCs per 100 WBC <1 /100 0 Sed Rate 0 - 20 mm/hr 100 (H) ABO/Rh(D) O NEG Antibody Screen Negative Negative SPECIMEN EXPIRATION DATE [id number] (L): Data is abnormally low (H): Data is abnormally high PROCEDURES MRI 05/03/23 Osseous lesions within the distal femur-- concerning for malignancy. Please see EMR for further details. The patient's records and results personally reviewed by this provider. Outside records reviewed from: Care Everywhere Assessment Tony Cota is a 47 year old female seen as a PAC referral for risk assessment and optimization for anesthesia. Plan/Recommendations Pt will be optimized for the proposed procedure. See below for details on the assessment, risk, andpreoperative recommendations NEUROLOGY - No history of TIA, CVA or seizure - Chronic Pain of left thigh ~ alternating acetaminophen and ibuprofen ~ recently prescribed oxycodone and took one at bedtime earlier this week. Did not find it to be effective. ~ morphine equivilant = 30 MME/Day -Post Op delirium risk factors: No risk identified ENT - No current airway concerns. Will need to be reassessed day of surgery. Mallampati: II TM: > 3 CARDIAC - No history of CAD and Afib. Denies cardiac symptoms - HTN ~ managed with lisinopril-hydrochlorothiazide combination ~ hold QUENTIN-I/thiazide diuretic combination morning of surgery. - METS (Metabolic Equivalents) Patient performs 4 or more METS exercise without symptoms Total Score: 0 - RCRI-Very low risk: Class 1 0.4% complication rate Total Score: 0 PULMONARY - LIDIA Low Risk Total Score: 1 LIDIA: Hypertension - Denies asthma or inhaler use - Tobacco History History Smoking Status Never Smokeless Tobacco Never GI - GERD ~ Controlled on medications: Proton Pump Inhibitor - Constipation ~ Miralax - Nausea and vomiting, unspecified ~ ondansetron - PONV High Risk Total Score: 3 1 AN PONV: Pt is Female 1 AN PONV: Patient is not a current smoker 1 AN PONV: Intended Post Op Opioids /RENAL - Baseline Creatinine see above ENDOCRINE - BMI: Estimated body mass index is 32.02 kg/m?? as calculated from the following: Height as of this encounter: 1.603 m (5' 3.11). Weight as of this encounter: 82.3 kg (181 lb 6.4 oz). Obesity (BMI >30) - No history of Diabetes Mellitus HEME - VTE Medium Risk 1.8% Total Score: 5 VTE: Current cancer - No history of abnormal bleeding or antiplatelet use. Hemoglobin Date Value Ref Range Status 05/09/2023 10.2 (L) 11.7 - 15.7 g/dL Final - Denies previous blood transfusion MSK - osseous lesions within the distal femur ~ concerning for malignancy ~ above procedure scheduled for diagnosis and guide treatment options. PSYCH - insomnia due to psychological stress/anxiety ~ PCP prescribed trazodone but patient has not found to be effective ~ Encouraged to follow closely with PCP for further evaluation and treatment Different anesthesia methods/types have been discussed with the patient, but they are aware that the final plan will be decided by the assigned anesthesia provider on the date of service. Patient was discussed with Dr Velarde The patient is optimized for their procedure. AVS with information on surgery time/arrival time, meds and NPO status given by nursing staff. No further diagnostic testing indicated. On the day of service: Prep time: 7 minutes Visit time: 19 minutes Documentation time: 23 minutes Total time: 49 minutes Lily Meyers APRN CNP Preoperative Assessment Center [facility] documented in this encounter Plan of Treatment Not on file documented as of this encounter Visit Diagnoses Diagnosis Preop examination- Primary Preoperative examination, unspecified Primary hypertension Unspecified essential hypertension documented in this encounter Care Teams Tilting Head Band Sawyer Relationship Specialty Start Date End Date Ondina Chávez MD [facility] [address] [place] [address] PCP - General Family Medicine 05/07/23 documented as of this encounter
--- OUTSIDE RECORDS SUMMARY | 2023-08-08 18:09 | XMS_ITS | Encounter Summary ---
Author Name Unknown Organization [facility] Address [address] [place] [id number] Care Team Providers Care General Cleaner Name Role Phone Ondina Chávez MD Primary Care Provider [phone] Reason for Visit * Reason Onset Date Comments Schedule Surgery 05/10/2023 Dr. Kruger Encounter Details Date Type Department Care Team (Late st Contact Info) Description 05/10/2023 Telephone [facility] [address] [place] [address] Shiva Kruger MD [address] [place] [address] Schedule Surgery (Dr. Kruger) Social History Tobacco Use Types Packs/Day Years [...] encounter Miscellaneous Notes * Telephone Encounter - Urszula Pires I - 05/10/2023 10:21 AM CDT Patient is scheduled for surgery with Dr. Kruger Spoke with: Tony Date of Surgery: 05/13/23 Location: [facility] OR Informed patient they will need an adult hazardous materials tanker driver Yes Pre op with Provider PAC completed Additional imaging/appointments: TBD, per case request. Surgery packet: Received Additional comments: Requesting c/b to go over lab results. Urszula Pires on 05/10/2023 at 10:21 AM * Telephone Encounter - Urszula Pires I - 05/10/2023 10:09 AM CDT Phoned patient to confirm surgery with Dr. Kruger. Provided brief reason of call and call back number of [phone]. documented in this encounter Plan of Treatment Not on file documented as of this encounter Visit Diagnoses Not on filedocumented in this encounter Care Teams General Cleaner Relationship Specialty Start Date End Date Ondina Chávez MD [facility] [address] [place] [address] PCP - General Family Medicine 05/07/23 documented as of this encounter
--- OUTSIDE RECORDS SUMMARY | 2023-08-08 18:09 | XMS_ITS | Encounter Summary ---
Author Name Unknown Organization [facility] Address [address] [place] [address]. [place] [address] Care Team Providers Care Plating Department Helper Name Role Phone Ondina Chávez MD Primary Care Provider [phone] Encounter Details Date Type Department Care Team (Late st Contact Info) Description 05/06/2023 Medical Correspondence [facility] [address] [place] [address] Outside, Provider Social History Tobacco Use Types Packs/Day [...] on filedocumented in this encounter Care Teams Plating Department Helper Relationship Specialty Start Date End Date Ondina Chávez MD [facility] [address] [place] [address] PCP - General Family Medicine 05/07/23 documented as of this encounter
--- OUTSIDE RECORDS SUMMARY | 2023-08-08 18:09 | XMS_ITS | Encounter Summary ---
Author Name Unknown Organization [facility] Address [address] [place] [address]. [place] [address] Care Team Providers Care Supervisor Shuttle Veneering Name Role Phone Ondina Chávez MD Primary Care Provider [phone] Reason for Visit * Diagnostic Imaging XR (Routine) - Pending Review Specialty Diagnoses / Procedures Referred By Mikki t Referred To Contact Radiology. Diagnoses Bone cyst Procedures XR Chest 2 VW Rachel Sanz PA-C [address] [place] [id number] Referral ID Status Reason Start Date Expiration Date V isits Requested Visits Authorized [id number] Pending Review 05/09/2023 05/08/2024 1 1 Encounter Details Date Type Department Care Team (Late st Contact Info) Description 05/09/2023 2:00 PM CDT Ancillary Procedure [facility] Orthopedic Xray [address] [place] [address] Rachel Sanz PA-C [address] [place] [id number] Bone cyst Social History Tobacco Use Types [...] Procedure Name Priority Date/Time Associated Diagnosis Comments XR CHEST 2 VIEWS Routine 05/09/2023 2:10 PM CDT Bone cyst documented in this encounter Results * XR Chest 2 VW (05/09/2023 2:10 [...] with the findings. RODRIGUEZ CROWDER MD Rachel Andersonrylee Sanz PA-C IMG DIAG NOSTIC IMAGING ORDERABLES documented in this encounter Visit Diagnoses Diagnosis Bone cyst Cyst of bone (localized), unspecified documented in this encounter Care Teams Supervisor Shuttle Veneering Relationship Specialty Start Date End Date Ondina Chávez MD [facility] [address] [place] [address] PCP - General Family Medicine 05/07/23 documented as of this encounter
--- OUTSIDE RECORDS SUMMARY | 2023-08-08 18:09 | XMS_ITS | Encounter Summary ---
Author Name Unknown Organization [facility] Address [address] [place] [address] Care Team Providers Care Sales Support Technician Name Role Phone Ondina Chávez MD Primary Care Provider [phone] Reason for Referral * Therapeutic Imaging/IR (Routine: Next available opening) - Pending Review Specialty Diagnoses / Procedures Referred By Contac t Referred To Contact Radiology. Diagnoses Bone cyst Procedures IR Referral Outpatient Rachel Sanz PA-C [address] [place] [address] Referral ID Status Reason Start Date Expiration Date V isits Requested Visits Authorized [id number] Pending Review 05/09/2023 05/08/2024 1 1 * Diagnostic Imaging XR (Routine) - Pending Review Specialty Diagnoses / Procedures Referred By Contac t Referred To Contact Radiology. Diagnoses Bone cyst Procedures XR Chest 2 VW Rachel Sanz PA-C [address] [place] [address] Referral ID Status Reason Start Date Expiration Date V isits Requested Visits Authorized [id number] Pending Review 05/09/2023 05/08/2024 1 1 Reason for Visit * Reason Comments Consult Left distal femur le german referred by KENIA Ortega // first noticed pain early March Encounter Details Date Type Department Care Team (Late st Contact Info) Description 05/09/2023 1:00 PM CDT Office Visit [facility] [address] [facility] [address] [facility] [address] 4th [place] [phone] Shiva Kruger MD [address] [place] [address] Bone cyst (Primary Dx) Social History Tobacco Use Types [...] on file documented as of this encounter Patient Instructions * Patient Instructions* Shiva Kruger MD - 05/09/2023 1:00 PM CDT Assessment: Multiple skeletal lesions with a right lung nodule. Biopsies are indicated. Plan: 1. Surgical biopsy and possible plating on Saturday. 2. Blood work has been ordered for today. 3. Image guided biopsy of the right lung mass has been requested but can always be canceled if not necessary. documented in this encounter Progress Notes * Rachel Sanz PA-C - 05/09/2023 1:00 PM CDT Chief Complaint: Left thigh pain, left femur lesion History: Tony is a 47-year-old female here with her today for further evaluation and treatment of left thigh pain and left femur bone abnormality. Patient reports that this summer, she noticed some left thigh pain and tightness without injury. She did not notice any swelling or redness. InAugust she felt very fatigued. She assumed she had mono, which one of her children had. She was getting pain at night in the thigh and it was hard to sleep. She has been alternating Tylenol and ibuprofen every 3 hours which seems to help. At some point, that was not helping her pain, so she was sent to the ER for Doppler ultrasound, which was negative. She was then referred to orthopedics for further work-up. She had an x-ray of the knee which was read as normal. She was sent to physical therapy with no relief. An MRI of the knee was ordered which showed an abnormality in the bone marrow of the left distal femur. Yesterday she had a left femur MRI which did partially include both femurs on the scan. She was referred here for further evaluation. She was just told that there was an abnormality in the bone. Patient reports that over the last 6 weeks she has had nausea and vomiting. Just recently she was given Zofran by her PCP, which has been helpful for her. She has had a significant loss of appetite and weight loss. She denies any night sweats, but does states she has had a low-grade fever of 100 degrees off-and-on over the last several weeks. Her only medical history is hypertension that is controlled with low-dose medication. She is a non-smoker. 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 She is with 3 children. She has a couple family members who are physicians. She has also set up a consult with the [facility] next week if needed. No other concerns. Patient reports no pain in the right thigh or lower extremities. She does occasionally have left upper arm pain. PastMedHx: HTN PastSurgHx: none FamHx: none Social History Tobacco Use Smoking status: Not on file Smokeless tobacco: Not on file Substance Use Topics Alcohol use: Not on file Meds: Current Outpatient Medications Medication acetaminophen (TYLENOL) 500 MG tablet ibuprofen (ADVIL/MOTRIN) 200 MG tablet lisinopril-hydrochlorothiazide (ZESTORETIC) 10-12.5 MG tablet omeprazole 20 MG tablet ondansetron (ZOFRAN ODT) 4 MG ODT tab oxyCODONE (ROXICODONE) 5 MG tablet traZODone (DESYREL) 50 MG tablet No current facility-administered medications for this visit. Allergies: No Known Allergies Review of Systems: ROS: 10 point ROS neg other than the symptoms noted above in the HPI. Physical Exam: There were no vitals taken for this visit. Tony is a 47-year-old female who is alert and oriented no apparent distress. She has a minimally antalgic gait without gait assistance. She has diffuse deep soreness of the left thigh. No obvious swelling or mass. She has full range of motion of the hip and knee today. She is neurovascular intact distally. No edema or calf pain Imaging: Outside images were reviewed including MRI of the left knee and MRI of the left femur withand without contrast, partially including the right femur as well shows: Multiple enhancing lesionswithin the proximal and distal femurs bilaterally with no sign of pathologic fracture or cortical breakthrough. There is scattered periosteal edema around the femurs. Partially visualized osseous lesions also within the proximal tibias bilaterally. AP and lateral chest x-ray was ordered and obtained today. This shows: 1. Suspicious right lower lung mass measuring up to 4.1 cm with a possible left scapular lytic lesion. Impression: 47-year-old female with multiple bony lesions and systemic symptoms, concerning for malignancy Plan: We told the patient and her that we do have some concern she may have a malignancy. It is also possible that she has a systemic infection. We would like to get some baseline lab work including CBC, CMP, CRP, sed rate, kappa and lambda light chain and serum protein electrophoresis. We will also schedule her for a biopsy of the left distal femur lesion on Saturday. She will be seen by the PAC clinic for clearance. She should stop her ibuprofen today. She can take Tylenol as needed forpain. There is a slight chance that she would need plate and screw fixation if we have to make a larger hole in the bone. This will be an outpatient procedure. We should have preliminary results the day of surgery and final results within 4 to 5 days. She will be presented at our tumor conference as well. She understands and agrees with this plan. All questions answered. Patient was also examined by Dr. Kruger, and he agrees with the plan of care. documented in this encounter Nursing Notes * Ivanna Nugent ATC - 05/09/2023 1:00 PM CDT Chief Complaint Patient presents with Consult Left distal femur lesion referred by KENIA Ortega // first noticed pain early March 47 year old 1975 Pain Assessment Patient Currently in Pain: Yes 0-10 Pain Scale: 3 (can get up to 7) Primary Pain Location: (left thigh) [facility] [id number] [place] [address] No Known Allergies Current Outpatient Medications Medication acetaminophen (TYLENOL) 500 MG tablet ibuprofen (ADVIL/MOTRIN) 200 MG tablet lisinopril-hydrochlorothiazide (ZESTORETIC) 10-12.5 MG tablet omeprazole 20 MG tablet ondansetron (ZOFRAN ODT) 4 MG ODT tab oxyCODONE (ROXICODONE) 5 MG tablet traZODone (DESYREL) 50 MG tablet No current facility-administered medications for this visit. * Patria Tidwell RN - 05/09/2023 1:00 PM CDT Pre-Op Teaching was done in person at the clinic. Teaching Flowsheet Relevant Diagnosis: L distal femur biopsy and possible plating Teaching Topic: Pre-Operative Teaching Person(s) involved in teaching: Patient and Motivation Level: Asks Questions: Yes Eager to Learn: Yes Cooperative: Yes Receptive (willing/able to accept information): Yes Any cultural factors/mormonism beliefs that may influence understanding or compliance? No Patient demonstrates understanding of the following: Reason for the appointment, diagnosis and treatment plan: Yes Knowledge of proper use of medications and conditions for which they are ordered (with special attention to potential side effects or drug interactions): Yes Which situations necessitate calling provider and whom to contact: Yes- discussed the stoplight tool to help assist with this. Teaching Concerns Addressed: Proper use of surgical scrub explain and provided to patient: Yes Nutritional needs and diet plan: Yes Pain management techniques: Yes Wound Care: Yes How and/when to access community resources: Yes Instructional Materials Used/Given: surgical soap received in clinic. - Important contact info/ phone numbers - Map/ location of surgery - Showering instructions - Stop light tool Additionally the following was discussed with patient: - Patient's , Francis, will drive her home and stay with her for 24 hours after surgery. - Authorization to Share Protected Health Information- Person to person communication signed by patient and sent to be scanned into chart. Patient authorized the following person or people: Francis Soaresnellie ([phone]) -Next step: Surgery scheduled 05/13. Pre-op H&P scheduled with PAC 05/09 at 3:30. Time spent with patient: 15 minutes. Patria Tidwell RNCC documented in this encounter Plan of Treatment Not on file documented as of this encounter Procedures Procedure Name Priority Date/Time Associated Diagnosis Comments CASE REQUEST MODIFICATION Routine 2022 2:35 PM CDT documented in this encounter Results * (ABNORMAL) [place] and lambda light chain (05/09/2023 4:21 PM CDT) [place] Free Light Chains 4.33(H) 0.33 - 1.94 mg/dL 05/10/2023 11:06 AM CDT [facility] Lambda Free Light Chains 2.91(H) 0.57 - 2.63 mg/dL 05/10/2023 11:06 AM CDT [facility]PROT/ENDO [place] /Lambda Ratio 1.49 0.26 - 1.65 05/10/2023 11:06 AM CDT SPECIALTY CORE/PROT/ENDO Blood STRUCTURE OF LEFT UPPER LIMB / Unknown Venipuncture / Unknown 05/09/2023 4:21 PM CDT 05/09/2023 4:21 PM CDT Rachel Sanz PA-C LAB - BL OOD ORDERABLES [facility]PROT/ENDO [facility]Prot/Endo [address] [facility] [address], Room [address] [phone] * (ABNORMAL) Erythrocyte sedimentation rate auto (05/09/2023 4:21 PM CDT) Erythrocyte Sedimentation Rate 100(H) 0 - 20 mm/hr 05/09/2023 4:32 PM CDT [facility] Blood STRUCTURE OF LEFT UPPER LIMB / Unknown Venipuncture / Unknown 05/09/2023 4:21 PM CDT 05/09/2023 4:21 PM CDT Rachel Sanz PA-C LAB - BL OOD ORDERABLES Performing Organization Address [facility] Co de Phone Number [facility] [address] [place] [address] * (ABNORMAL) CRP inflammation (05/09/2023 4:21 PM CDT) Pathologist [facility] CRP Inflammation 75.60(H) <5.00 mg/L 05/09/2023 4:57 PM CDT [facility] Blood STRUCTURE OF LEFT UPPER LIMB / Unknown Venipuncture / Unknown 05/09/2023 4:21 PM CDT 05/09/2023 4:21 PM CDT Rachel Sanz PA-C LAB - BL OOD ORDERABLES Performing Organization Address [facility] de Phone Number [facility] - [address] [place] [address] * (ABNORMAL) Comprehensive metabolic panel (05/09/2023 4:21 PM CDT) [facility] Sodium 133(L) 135 - 145 mmol/L 05/09/2023 4:57 PM CDT [facility] Comment:Reference intervals for this test were updated on 04/09/2023 to more accurately reflect our healthy population. There may be differences in the flagging of prior results with similar values performed with this method. Interpretation of those prior results can be made in the context of the updated reference intervals. Potassium 3.3(L) 3.4 - 5.3 mmol/L 05/09/2023 4:57 PM CDT [facility] Carbon Dioxide (CO2) 25 22 - 29 mmol/L 05/09/2023 4:57 PM CDT [facility] Anion Gap 18(H) 7 - 15 mmol/L 05/09/2023 4:57 PM CDT [facility] Urea Nitrogen 14.1 6.0 - 20.0 mg/dL 05/09/2023 4:57 PM CDT [facility] Creatinine 0.73 0.51 - 0.95 mg/dL 05/09/2023 4:57 PM CDT [facility] GFR Estimate >90 >60 mL/min/1. 73m2 05/09/2023 4:57 PM CDT [facility] Calcium 10.1(H) 8.6 - 10.0 mg/dL 05/09/2023 4:57 PM CDT [facility] Chloride 90(L) 98 - 107 mmol/L 05/09/2023 4:57 PM CDT [facility] Glucose 95 70 - 99 mg/dL 05/09/2023 4:57 PM CDT [facility] Alkaline Phosphatase 110(H) 35 - 104 U/L 05/09/2023 4:57 PM CDT [facility] AST 25 0 - 45 U/L 05/09/2023 4:57 PM CDT [facility] Comment:Reference intervals for this test were updated on 12/24/2022 to more accurately reflect our healthy population. There may be differences in the flagging of prior results with similar values performed with this method. Interpretation of those prior results can be made in the context of the updated reference intervals. ALT 16 0 - 50 U/L 05/09/2023 4:57 PM CDT [facility] Comment:Reference intervals for [...] - 8.3 g/dL 05/09/2023 4:57 PM CDT [facility] Albumin 4.1 3.5 - 5.2 g/dL 05/09/2023 4:57 PM CDT [facility] Bilirubin Total 0.4 <=1.2 mg/dL 05/09/2023 4:57 PM T [facility] Blood STRUCTURE OF LEFT UPPER LIMB / Unknown Venipuncture / Unknown 05/09/2023 4:21 PM CDT 05/09/2023 4:21 PM CDT Rachel Sanz PA-C LAB - BL OOD ORDERABLES [facility] [address] 1st [place] [address] * XR Chest 2 VW (05/09/2023 2:10 [...] with the findings. RODRIGUEZ CROWDER MD Rachel Cecelia Sanz PA-C IMG DIAG NOSTIC IMAGING ORDERABLES documented in this encounter Visit Diagnoses Diagnosis Bone cyst- Primary Cyst of bone (localized), unspecified Bone cyst Cyst of bone (localized), unspecified documented in this encounter Care Teams Sales Support Technician Relationship Specialty Start Date End Date Ondina Chávez MD [facility] [address] [place] [address] PCP - General Family Medicine 05/07/23 documented as of this encounter
--- OUTSIDE RECORDS SUMMARY | 2023-08-08 18:09 | XMS_ITS | Clinical Summary ---
Author Name Unknown Organization [employer] [facility] [employer] [facility] Address [place], [place] [address] Care Team Providers Care Communications Assistant Name Role Phone Ondina Chávez MD Primary Care Provider [phone] Allergies No known active allergies Medications Medication Sig Dispensed Refills Start Date End Date Status lisinopril-hydrochl orothiazide (10-12.5 mg) tablet (PRINZIDE; ZESTORETIC)Indicati ons:HTN (hypertension) Take 1 Tablet by mouth once daily. 90 Tablet 3 3 Active omeprazole 20 mg tabletIndications:N ausea and vomiting, unspecified vomiting type Take 1 Tablet (20 mg) by mouth once daily before a meal. 30 Tablet 0 3 Active ondansetron (ZOFRAN ODT) 4 mg disintegrating tabletIndications:N ausea and vomiting, unspecified vomiting type Place 1 Tablet (4 mg) on the tongue every 8 hours if needed for Nausea/Vomit ing. 30 Tablet 0 3 Active diazePAM (VALIUM) 5 mg tabletIndications:I nsomnia due to psychological stress Take 1 Tablet (5 mg) by mouth at bedtime if needed for Anxiety or Sleep (Do not use with oxycodone). 10 Tablet 0 3 Active oxyCODONE (ROXICODONE) 5 mg immediate release tabletIndications:B one tumor Take 1 Tablet (5 mg) by mouth every 4 hours if needed for Pain. 25 Tablet 0 3 Active hydrOXYzine HCL (ATARAX) 25 mg tabletIndications:I nsomnia due to psychological stress Take 1-2 Tablets (25-50 mg) by mouth at bedtime if needed for Anxiety (sleep). 180 Tablet 0 3 Active traZODone (DESYREL) 50 mg tabletIndications:I nsomnia due to psychological stress TAKE 1 TO 2 TABLETS BY MOUTH AT BEDTIME IF NEEDED FOR SLEEP 180 Tablet 0 4 Active traZODone (DESYREL) 50 mg tabletIndications:I nsomnia due to psychological stress TAKE 1 TO 2 TABLETS BY MOUTH AT BEDTIME IF NEEDED FOR SLEEP 180 Tablet 0 3 08/01/19 24 Discontinued hydrOXYzine HCL (ATARAX) 25 mg tabletIndications:I nsomnia due to psychological stress Take 1-2 Tablets (25-50 mg) by mouth at bedtime if needed for Anxiety (sleep). 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 Bone tumor 05/31/2023 Metastatic malignant melanoma 05/22/2023 Encounters Date Type Department Care Team Description 07/31/2023 Refill [facility] [address] [place] [address] Ondina Chávez MD Refill Request (Trazodone) 05/16/2023 Telephone [facility] [address] [place] [address] Ondina Chávez MD 05/10/2023 4:05 PM CDT Phone Office Visit [facility] [address] [place] [address] Ondina Chávez MD Sleep Problem 05/10/2023 Travel 05/10/2023 Telephone [facility] [address] [place] [address] Ondina Chávez MD Medication Management (new prescription for valium) 05/08/2023 10:00 AM CDT Office Visit [facility] [address] [place] [address] Ondina Chávez MD Follow Up 05/08/2023 Orders Only [facility] Scanner 1 scan: (1-Ord) ROUND TOP, LT FEMUR, 05/08/2023 05/08/2023 Orders Only [facility] Scanner 1 scan: (1-Ord) INCOMING RECORDS-MRI, [facility], 05/08/2023 05/08/2023 Orders Only [facility] Scanner 1 scan: (1-Ord) INCOMING RECORDS-MRI, [facility], 05/08/2023 05/08/2023 Orders Only [facility] Scanner 1 scan: (1-Ord) INCOMING RECORDS-, [facility], 05/08/2023 05/08/2023 Travel from Last 3 Months Immunizations Name Administration Dates Next Due AMB Influenza, IIV4 PF (=>6 mos Flulaval,Fluzone Fluarix)(Flu Clinic Only) 05/05/2018 COVID-19 vaccine ([email or web address] 30mcg/0.3mL) 12YO+ BIVALENT PF, MDV 03/28/2022 Influenza Virus, Unspecified 06/26/2010, 05/03/2008,04/23/2007,2005,04/16/2005 Influenza, IIV3 (Age >=3 years) 03/14/2011 Influenza, IIV4 04/09/2022,,04/11/2020,2018,04/19/2017,04/16/2016,04/06/2014 Influenza,LAIV4 Live Intrana shubham (Flumist) 04/12/2015,04/07/2013,03/14/2012,2008 Td (Age >=7 Years) 07/28/2003,02/15/1994 Tdap 04/13/2021,06/26/2010 Family History Medical History Relation Name Comments Hypertension Brother 1 Good Health Father Hyperlipidemia Mother Hypertension Mother Cancer-breast No Family History Relation Name Status Comments Brother 1 Alive Brother 2 Alive Father Alive Mother Alive Social History Tobacco Use Types Packs/Day Years Used Date Smoking Tobacco: Never Smokeless Tobacco: Never Tobacco Cessation:Counseling Given: Yes Alcohol Use Standard Drinks/Week Comments Yes 0 (1 standard drink = 0.6 oz pur e alcohol) occassionally PHQ-2 Answer Date Recorded PHQ-2 TOTAL SCORE 1 08/12/2020 Social Connections Answer Date Recorded Frequency of Communication with Friends and Fami ly 0 05/08/2023 Financial Resource Strain Answer Date R ecorded Difficulty of Paying Living Expenses 3 05/08/2023 Difficulty of Paying Living Expenses Not on file 05/08/2023 Food Insecurity Answer Date Recorded Worried About Running Out of Food in the Last Ye ar 1 05/08/2023 Transportation Needs Answer Date Record ed Lack of Transportation (Medical) 1 05/08/2023 Housing Stability Answer Date Recorded Unable to Pay for Housing in the Last Year 1 05/08/2023 Sex and Gender Information Value Date Recorded Sex Assigned at Not on file Gender Identity Not on file Sexual Orientation Not on file Obstetrics History Para Term AB IAB SAB Ectopic Multiple Livin g Live Births 3 3 3 3 3 Date Outcome GA Total Labor Labor//3rd Weight Sex Delivery Anes PTL Claudia A1 A5 Name Cl in Term Term Term Last Filed Vital Signs Vital Sign Reading Time Taken Comments Blood Pressure 108/73 05/08/2023 10:09 AM CDT Pulse 80 05/08/2023 10:09 AM CDT Temperature - - Respiratory Rate - - Oxygen Saturation 99% 05/08/2023 10:09 AM CDT Inhaled Oxygen Concentration - - Weight 81.5 kg (179 lb 9.6 oz) 05/08/2023 10:09 AM CDT Height 158.4 cm (5' 2.36) 03/28/2022 11:02 AM C DT Body Mass Index 32.47 03/28/2022 11:02 AM CDT Plan of Treatment Health Maintenance Due Date Last Done Comments Pneumococcal series for age 6-64 (1 of 2 - PCV) 1983 HIV for age 15-65 1992 Depression screening for age 12+ 08/12/2021 08/12/19 21 Colonoscopy through age 75 2022 COVID-19 vaccine series ( season) 2023 03/28/2022, 04/19/2021, 09/24/2020, Additional history exists Influenza for age 9-49 03/15/2023 , 03/23/2021, 04/11/2020, Additional history exists BMI (ht and wt on same day) for age 18+ 03/28/2023 03/28/2022, 08/12/2020 Mammogram for age 45-75 10/23/2023 10/22/2022 Lipids for age 45-75 08/12/2025 08/12/2020 Pap test for age 21-65 08/12/2025 08/12/2020, 2020 Tetanus booster 04/13/2031 04/13/2021, 06/14, 07/28/2003, Additional history exists Tdap Completed 04/13/2021, 06/26/2010 Hepatitis C screening for ag e 18-79 Completed 03/28/2022 Procedures Procedure Name Priority Date/Time Associated Diagnosis Comments SCAN-MRI INTERPRETATION 05/08/20 12:00 AM CDT SCAN CORRESP-IMAGING 05/08/2023 12:00 AM CDT SCAN CORRESP-IMAGING 05/08/2023 12:00 AM CDT SCAN CORRESP-IMAGING 05/08/2023 12:00 AM CDT from Last 3 Months Results * SCAN CORRESP-IMAGING (05/08/2023 12:00 AM CDT) Only the most recent of3 resultswithin the time period is included. Anatomical Region Laterality Modality Other Scanner OTHER * SCAN-MRI INTERPRETATION (05/08/2023 12:00 AM CDT) Anatomical Region Laterality Modality Other Scanner OTHER from Last 3 Months Care Teams Communications Assistant Relationship Specialty Start Date End Date Ondina Chávez MD [address] [place] [address] PCP - General Family Practice 08/18/20
--- OUTSIDE RECORDS SUMMARY | 2023-08-08 18:09 | XMS_ITS | Encounter Summary ---
Author Name Unknown Organization [place] Address [address] [place] [address] Care Team Providers Care Platemaker Name Role Phone Ondina Chávez MD Primary Care Provider [phone] Reason for Visit * Reason Onset Date Comments Appointment 05/07/2023 RED FLAG TUMOR N EEDS VISIT Encounter Details Date Type Department Care Team (Late st Contact Info) Description 05/07/2023 [facility] [address] [place] [address] Unknown, DoctorMD Appointment (RED FLAG TUMOR NEEDS VISIT) Social History Tobacco Use Types Packs/Day Years Used Date Smoking Tobacco: Never Assessed Adolescent Education Answer Date Record ed Getting School Help Needed Not on file 05/07 Sex and Gender Information Value Date Recorded Sex Assigned at Not on file Gender Identity Not on file Sexual Orientation Not on file documented as of this encounter Miscellaneous Notes * Telephone Encounter - Sujey Gilliland LPN - 05/07/2023 1:30 PM CDT Patient is having STAT MRI of femur w and w/o done at [facility] SaturdayMay 08 at 7pm. Referring provider's nurse will push image early morning. Sujey Gilliland LPN * Telephone Encounter - Audra Yung - 05/07/2023 9:57 AM CDTSummary: RED FLAG TUMOR NEEDS VISIT [facility] Call Center Phone Message May a detailed message be left on voicemail: no Reason for Call: Needs appt for lesion left femur/ Dr Pravin Zambrano @ [facility]/ MRI left knee @ [facility] MRI was done of the left knee where they saw the lesion. Radiologist is recommending further imaging, but they wanted to see what the Ortho Oncology doctor would recommend. Call Priya HENDERSON to schedule the appt [phone] Action Taken: Message routed to: [facility] Travel Screening: Not Applicable documented in this encounter Plan of Treatment Not on file documented as of this encounter Visit Diagnoses Not on filedocumented in this encounter Care Teams Platemaker Relationship Specialty Start Date End Date Ondina Chávez MD [facility] [address] [place] [address] PCP - General Family Medicine 05/07/23 documented as of this encounter
--- OUTSIDE RECORDS SUMMARY | 2023-08-08 18:09 | XMS_ITS | Encounter Summary ---
Author Name Unknown Organization [place] Address [address] [place] [address]. [place] [address] Care Team Providers Care Veterans Service Officer Name Role Phone Ondina Chávez MD Primary Care Provider [phone] Reason for Visit * Auth/Cert (Routine) Specialty Diagnoses / Procedures Referred By Mikki t Referred To Contact Surgery Diagnoses Bone cyst Bone cyst [M85.60] Procedures [place] BIOPSY BONE,TROCAR/NEEDLE SUPERFICIAL [place] BONE BIOPSY,TROCAR/NEEDLE DEEP [place] BIOPSY BONE OPEN, SUPERIFICAL [place] BIOPSY BONE,EXCISIONAL DEEP [place] OPEN TX FEMORAL FRACTURE DISTAL MED/LAT CONDYLE biopsy left distal femur. possible plating Ur [facility] [address] [place] [id number] Referral ID Status Reason Start Date Expiration Date Visits Re quested Visits Authorized [id number] 1 1 Encounter Details Date Type Department Care Team (Late st Contact Info) Description 05/13/2023 12:43 PM CDT Anesthesia Event [facility] [address] [place] [phone] Suleiman Sanz MD [address] [place] [address] [phone] [place], [place] [address] Emelia Bermudez, MEDIATOR SUPERVISOR POST WAVE [address] [place] [id number] Anesthesia Record Procedure Summary Procedure Name Responsible Anesthesiologist Anesthesia Start Time Anesthesia Stop Time Biopsy left distal femur (Left: Leg) Suleiman aSnz MD 05/13/23 1243 05/13/23 1400 Events Date Time Event Comment 05/13/2023 1243 AN REASSESS I attest that I have identified and re-evaluated the patient immediately before the induction of anesthesia and I am satisfied that the anesthetic plan is suitable for the patient's condition and procedure. The first vital signs recorded are pre- induction. Emelia Berumdez APRN SUPERVISOR POST WAVE 1243 An Start 1243 An Start Data 1251 An Induction 1255 An Intubation 1324 Quick Note Antibiotic held per Dr. Kruger 1353 AN Extubation All extubation criteria met prior to removal. 1353 an stop data 1400 An Stop Electronically signed by Emelia Bermudez APRN CRNA on May 13, 2023 2:01 PM Meds Name Total midazolam 1 mg/mL 2 mg fentaNYL 50 mcg/mL 100 mcg lidocaine 2% 100 mg propofol 10 mg/mL 150 mg propofol drip mcg/kg/min 84.63 mg rocuronium 10 mg/mL 50 mg phenylephrine (RYLAN-SYNEPHRINE) injection 200 mcg dexamethasone (DECADRON) 4 mg/mL 8 mg sugammadex (BRIDION) 200mg/2mL 200 mg ceFAZolin Sodium (ANCEF) injection 2 g 2 g ketorolac 30 mg/mL 30 mg LR 500 mL * Agents Name NO HELIOX O2 N2O Air Exp Sevoflurane Exp Isoflurane Exp Desflurane Exp N2O Ins Sevoflurane Ins Isoflurane Ins Desflurane O2 Auxiliary * Blood No blood administrations on file. [...] Grade View: 1; Adjucts: Stylet; Placement Person: SUPERVISOR POST WAVE; Attempts: 1 05/13/23 1313 by Emelia Bermudez APRN CRNA 05/13/23 1353 by Emelia Bermudez APRN SUPERVISOR POST WAVE documented in this encounter Social History Tobacco [...] on file documented as of this encounter OR Notes * Anesthesia Postprocedure Evaluation - Suleiman Sanz MD - 05/13/2023 3:46 PM CDT Patient: Tony Cota Procedure: Procedure(s): biopsy left distal femur. Anesthesia Type: General Note: Disposition: Outpatient Postop Pain Control: Uneventful Sign Out: Well controlled pain PONV: No Neuro/Psych: Uneventful Sign Out: Acceptable/Baseline neuro status Airway/Respiratory: Uneventful Sign Out: Acceptable/Baseline resp. status CV/Hemodynamics: Uneventful Sign Out: Acceptable CV status; No obvious hypovolemia; No obvious fluid overload Other NRE: NONE DID A NON-ROUTINE EVENT OCCUR? Last vitals: Vitals Value Taken Time BP 123/83 05/13/23 1445 Temp 36.8 ??C (98.2 ??F) 05/13/23 1430 Pulse 92 05/13/23 1449 Resp 9 05/13/23 1449 SpO2 97 % 05/13/23 1451 Vitals shown include unfiled device data. Electronically Signed By: Suleiman Sanz MD May 13, 2023 3:46 PM * Anesthesia Procedure Notes - Emelia Bermudez APRN SUPERVISOR POST WAVE - 05/13/2023 1:12 PM CDTAssociated Order(s): Airway Airway Patient location during procedure: OR Staff - Performed By: CRNAIndications and Patient Condition Indications for airway management: ze-procedural Induction type:intravenous Mask difficulty assessment: 1 - vent by mask Final Airway Details Final airway type: endotracheal airway Successful airway: Oral Endotracheal Airway Details Cuffed: yes Successful intubation technique: direct laryngoscopy DL Blade Type: MAC 3 Grade View of Cords: 1 Adjucts: stylet Position: Right Bite block used: None Post intubation assessment Placement verified by: capnometry, equal breath sounds and chest rise Number of attempts at approach: 1 Number of other approaches attempted: 0 Secured with: silk tape Ease of procedure: easy Dentition: Intact * Anesthesia Preprocedure Evaluation - Suleiman Sanz MD - 05/13/2023 8:49 AM CDT Anesthesia Pre-Procedure Evaluation Patient: Tony Cota : 1975 Procedure : Procedure(s): biopsy left distal femur. possible plating Past Medical History: Diagnosis Date Bone cyst of femur Essential hypertension Past Surgical History: Procedure Laterality Date ENT SURGERY [place] teeth extracted. No Known Allergies Social History Tobacco Use Smoking status: Never Smokeless tobacco: Never Substance Use Topics Alcohol use: Yes Comment: Social Wt Readings from Last 1 Encounters: 05/09/23 82.3 kg (181 lb 6.4 oz) Anesthesia Evaluation ROS/MED HX ENT/Pulmonary: Neurologic: Cardiovascular: (+) hypertension- - - - - METS/Exercise Tolerance: Hematologic: Musculoskeletal: GI/Hepatic: (+) GERD, Asymptomatic on medication, Renal/Genitourinary: Endo: (+) Obesity, Psychiatric/Substance Use: Infectious Disease: Malignancy: Other: Physical Exam Airway Mallampati: II Respiratory Devices and Support Dental (+) Minor Abnormalities - some fillings, tiny chips Cardiovascular Rhythm and rate: regular Pulmonary breath sounds clear to auscultation OUTSIDE LABS: CBC: Lab Results Component Value Date WBC 7.9 05/09/2023 HGB 10.2 (L) 05/09/2023 HCT 30.2 (L) 05/09/2023 PLT 460 (H) 05/09/2023 BMP: Lab Results Component Value Date NA 133 (L) 05/09/2023 POTASSIUM 3.3 (L) 05/09/2023 CHLORIDE 90 (L) 05/09/2023 CO2 25 05/09/2023 BUN 14.1 05/09/2023 CR 0.73 05/09/2023 GLC 95 05/09/2023 COAGS: No results found for: PTT, INR, FIBR POC: No results found for: BGM, HCG, HCGS HEPATIC: Lab Results Component Value Date ALBUMIN 4.1 05/09/2023 PROTTOTAL 8.4 (H) 05/09/2023 ALT 16 05/09/2023 AST 25 05/09/2023 ALKPHOS 110 (H) 05/09/2023 BILITOTAL 0.4 05/09/2023 OTHER: Lab Results Component Value Date EVAN 10.1 (H) 05/09/2023 SED 100 (H) 05/09/2023 Anesthesia Plan ASA Status: 2 NPO Status: NPO Appropriate Anesthesia Type: General. - Airway: LMA Induction: Intravenous. Maintenance: Balanced. Consents Anesthesia Plan(s) and associated risks, benefits, and realistic alternatives discussed. Questions answered and patient/inside sales account representative(s) expressed understanding. - Discussed: - Discussed with: Patient Postoperative Care Pain management: Oral pain medications, IV analgesics, Multi-modal analgesia. PONV prophylaxis: Ondansetron (or other 5HT-3), Dexamethasone or Solumedrol, Background Propofol Infusion Comments: Suleiman Sanz MD documented in this encounter Miscellaneous Notes * Anesthesia Care Transfer Note - Emelia Bermudez APRN SUPERVISOR POST WAVE - 05/13/2023 2:01 PM CDT Patient: Tony Cota Procedure: Procedure(s): biopsy left distal femur. Diagnosis: Bone cyst [M85.60] Diagnosis Additional Information: No value filed. Anesthesia Type: General Note: Oropharynx: spontaneously breathing Level of Consciousness: awake Oxygen Supplementation: face mask Level of Supplemental Oxygen (L/min / FiO2): 8 Independent Airway: airway patency satisfactory and stable Dentition: dentition unchanged Vital Signs Stable: post-procedure vital signs reviewed and stable Report to RN Given: handoff report given Patient transferred to: PACU Handoff Report: Identifed the Patient, Identified the Reponsible Provider, Reviewed the pertinent medical history, Discussed the surgical course, Reviewed Intra-OP anesthesia mangement and issues during anesthesia, Set expectations for post-procedure period and Allowed opportunity for questions andacknowledgement of understanding Vitals: Vitals Value Taken Time BP 108/66 05/13/23 1357 Temp Pulse 92 05/13/23 1359 Resp 27 05/13/23 1359 SpO2 100 % 05/13/23 1359 Vitals shown include unfiled device data. Electronically Signed By: Emelia Bermudez APRN CRNA May 13, 2023 2:01 PM documented in this encounter Plan of Treatment Not on file documented as of this encounter Procedures Procedure Name Priority Date/Time Associated Diagnosis Comments ANE AIRWAY ETT PERFORMABLE Routine 05/13/2023 1:12 PM CDT documented in this encounter Results * ANE AIRWAY ETT PERFORMABLE (05/13/2023 1:12 PM CDT) Narrative Emelia Bermudez APRN CRNA - 05/13/2023 1:12 PM CDT Emelia Bermudez APRN CRNA ? 05/13/2023 ??1:13 PM Airway [...] of procedure: easy ? Dentition: Intact Suleiman DRAPER ANESTHESIA documented in this encounter Visit Diagnoses Not on filedocumented in this encounter Administered Medications Inactive Administered Medications - up to 3 most recent administrations Medication Order MAR Action Action Date Dose Rate Site ceFAZolin Sodium (ANCEF) injection 2 g Routine, 2 g, Intravenous, PRE-OP/PRE-PROCEDURE, Starting on Sat05/13/23 at 0852, For 1 dose, Give first dose within 1 hour PRIOR to incision. If patient weight is greater than or equal to 120 kg increase dose to 3 g., Indications: Perioperative Pharmacoprophylaxis, Pre-procedure $Given 05/13/2023 1:31 PM CDT 2 g dexAMETHasone (DECADRON) injection Intravenous, PRN, Administer over 1 Minutes, Starting on Sat05/13/23 at 1251, Anesthesia Intra-op $Given 05/13/2023 12:51 PM CDT 8 mg fentaNYL (PF) (SUBLIMAZE) injection Intravenous, PRN, Administer over 3-5 Minutes, Starting on Sat05/13/23 at 1251, Anesthesia Intra-op $Given 05/13/2023 1:41 PM CDT 25 mcg $Given 05/13/2023 12:51 PM CDT 75 mcg ketorolac (TORADOL) injection Intravenous, PRN, Administer over 2 Minutes, Starting on Sat05/13/23 at 1342, Anesthesia Intra-op $Given 05/13/2023 1:42 PM CDT 30 mg lactated ringers infusion Intravenous, CONTINUOUS PRN, Anesthesia Intra-op, Starting on Sat05/13/23 at 1243, Until Sat05/13/23 at 1401 $New Bag 05/13/2023 12:43 PM CDT lidocaine 2% injection (MDV) Intravenous, PRN, Starting on Sat05/13/23 at 1251, Anesthesia Intra-op $Given 05/13/2023 12:51 PM CDT 100 m g midazolam (VERSED) injection Intravenous, Administer over 2 Minutes, PRN, Starting on Sat05/13/23 at 1243, Anesthesia Intra-op $Given 05/13/2023 12:43 PM CDT 2 mg phenylephrine (RYLAN-SYNEPHRINE) injection Intravenous, CONTINUOUS PRN, Starting on Sat05/13/23 at 1309, Anesthesia Intra-op $Bolus 05/13/2023 1:19 PM CDT 100 mcg $New Bag 05/13/2023 1:09 PM CDT 100 mcg propofol (DIPRIVAN) infusion Intravenous, CONTINUOUS PRN, Starting on Sat05/13/23 at 1300, Anesthesia Intra-op $New Bag 05/13/2023 1:00 PM CDT 30 mcg/kg/min 14.508 mL/hr propofol (DIPRIVAN) injection 10 mg/mL vial Intravenous, PRN, Starting on Sat05/13/23 at 1251, Anesthesia Intra-op $Given 05/13/2023 12:51 PM CDT 150 mg rocuronium injection Intravenous, PRN, Starting on Sat05/13/23 at 1251, Anesthesia Intra-op $Given 05/13/2023 12:51 PM CDT 50 mg sugammadex (BRIDION) injection Intravenous, PRN, Starting on Sat05/13/23 at 1349, Anesthesia Intra-op $Given 05/13/2023 1:49 PM CDT 200 mg documented in this encounter Care Teams Veterans Service Officer Relationship Specialty Start Date End Date Ondina Chávez MD [address] [address] PCP - General Family Medicine 05/07/23 documented as of this encounter
--- OUTSIDE RECORDS SUMMARY | 2023-08-08 18:09 | XMS_ITS | Encounter Summary ---
Author Name Unknown Organization [place] Address [address] [place] [address] Care Team Providers Care Pump Room Operator Name Role Phone Ondina Chávez MD Primary Care Provider [phone] Encounter Details Date Type Department Care Team (Late st Contact Info) Description 05/10/2023 Orders Only [facility] Interventional Radiology [address] [place] [address] Zuri Pizarro APRN WOOL WASHER [address] [place], [place] [address] Bone cyst Social History Tobacco Use Types [...] on file documented as of this encounter Consult Notes * Zuri Pizarro APRN WOOL WASHER - 05/10/2023 6:45 AM CDTAssociated Order(s): IR REFERRAL Images from the original note were not included. Outpatient IR Biopsy Referral Patient is a 47 y/o female with a PMH of bone cyst, multiple bone lesions, systemic sx's; new lung nodule, concerning for malignancy vs infection IR has been asked to biopsy the right lung lesion found on Chest X ray. Patient has not had an oncology consult for work up. IR has asked for cross sectional imaging, CT w/o contrast chest and oncology referral for complete work up prior to lung biopsy. 05/14/23 update from referring team: Hold Request for lung biopsy due to biopsy today showed metastatic Carcinoma I ordered Pet/CT, oncology and radiation. We will hold on the lung Bx for now 05/09/23 CT chest Findings: PA and lateral views of chest. [...] lesion. Recommend CT chest for better characterization. Primary team Rachel Sanz PAC Ortho Surg made aware of IR recommendations via [employer] messaging. Zuri Pizarro DNP, APRN Interventional Radiology IR on-call pager: [phone] documented in this encounter Plan of Treatment Not on file documented as of this encounter Visit Diagnoses Diagnosis Bone cyst Cyst of bone (localized), unspecified documented in this encounter Care Teams Pump Room Operator Relationship Specialty Start Date End Date nOdina Chávez MD [facility] [address] [place] [address] PCP - General Family Medicine 05/07/23 documented as of this encounter
[2023-08-08 18:10] LABS: PCR FLU A Negative PCR FLU A (Negative); PCR FLU B Negative PCR FLU B (Negative); PCR RSV Negative PCR RSV (Negative); SARS PCR* Negative SARS-CoV-2 (Negative)
[2023-08-08] MEDS: LACTATED RINGERS 1000 ML IV ×2 (19:01→22:42)
[2023-08-08] MEDS: IBUPROFEN 600 MG TABLET PO (19:55)
[2023-08-08 20:15] LABS: Appearance Urine Cloudy (Clear); Bilirubin Urine Negative (Negative); Blood Urine Trace-intact (Negative); Color Urine Yellow (Yellow); Glucose Urine Negative (Negative); Ketones Urine 1+ (Negative); Leukocyte Esterase Urine Negative (Negative); Nitrite Urine Negative (Negative); Protein Urine 1+ (Negative); Urobilinogen Urine 0.2 (0.2-1.0); pH Urine 5.5 (5.0-8.5)
[2023-08-08] MEDS: PIPERACILLIN/TAZOBACTAM 4.5 GM in 0.9 % SODIUM CHLORIDE Mini-bag 100 ML IVPB (20:20)
[2023-08-08 20:25] LABS: Bacteria Urine Few; RBC Urine 0-2 (0-2); Squamous Epithelial Cell Urine Few (None-Few); WBC Urine 0-2 (0-5)
[2023-08-08 20:28] LABS: Lactate* 1.2 mmol/L (0.5-1.9)
[2023-08-08 20:35] LABS: Procalcitonin* > 100.00 ng/mL (<0.50)
--- NOTE | 2023-08-08 23:27 | ED.NURSE ---
Patient report called to [facility] at [facility]. She will go to room 20. RN given report to was
== END 2023-08-08 23:21 | disposition short-term general hospital (02) ==
PROVIDERS: Emergency Provider Emergency Medicine; PCP Family Medicine
DX: R55 Syncope and collapse (principal); C43.9 Malignant melanoma of skin, unspecified; I95.9 Hypotension, unspecified; A41.9 Sepsis, unspecified organism
CPT/HCPCS: 36415; 71045; 74177; 80053; 81001; 82803; 83605; 84145; 84484; 85025; 87040; 87086; 87631; 93005; 96365; 96366; 96375; 99285; A9270; J1720; J2405; J2543; J3370; J7030; J7120; Q9967

== ENCOUNTER 2023-08-08 23:02 | Outpatient (CLI) | payer OTHER, SELFPAY ==
--- OUTSIDE RECORDS SUMMARY | 2023-08-09 19:18 | XMS_ITS | Encounter Summary ---
Author Name Unknown Organization [place] Address [address] [place] [address] Care Team Providers Care Director Pharmacovigilance Name Role Phone Ondina Chávez MD Primary Care Provider Max Lee MD Unavailable [phone] Igor Myers MD Unavailable Unavaila Shiva Huff MD Unavailable [phone] Encounter Details Date Type Department Care Team (Late st Contact Info) Description 05/22/2023 Orders Only [facility] [address] [place] [address] Igor Myers MD Metastatic malignant [...] unspecified documented in this encounter Care Teams Director Pharmacovigilance Relationship Specialty Start Date End Date Ondina Chávez MD [facility] [address] [place] [address] PCP - General Family Medicine 05/07/23 Max Lee MD [address] [place] [address] Hematology & Oncology 05/17/23 Igor Myers MD Hematology & Oncology 05/20/23 Shiva Kruger MD [address] [place] [id number] Assigned Musculoskeletal Provider 05/18/23 documented as of this encounter
--- OUTSIDE RECORDS SUMMARY | 2023-08-09 19:20 | XMS_ITS | Clinical Summary ---
Author Name Unknown Organization [facility] Address [address] [place] [address] Care Team Providers Care Night Assistant Name Role Phone Elsewhere, Pcp Primary Care Provider Unavailabl e Source Comments Patient records contain information from all sites at [facility]. For routine questions regarding patient records, call [phone] during business hours, M-F 8:00 AM - 5:00 PM Central Time. Record requests for emergency care only can be directed to [phone] at any time.[facility] Allergies No known active allergies Medications [...] Department Care Team Description 08/09/2023 12:40 AM INSURANCE CLAIMS ADJUSTER Ancillary Procedure Department of Radiology in [place], [place] [address] [place] [phone] Jose Cavanaugh APRN, C.N.P. Arrived 08/09/2023 12:21 AM INSURANCE CLAIMS ADJUSTER - 08/09/2023 3:38 PM INSURANCE CLAIMS ADJUSTER Hospital Encounter [facility], Tenth Floor [address] [place] [address] Jose Cavanaugh APRN, C.N.P. Ciaran Reese M.D. Dimou, Anastasios, M.D. Ahmad, Sumera R, M.B.B.S. Sepsis (HCC) (Primary Dx); Multiple Myeloma Not Having Achieved Remission (HCC) Discharge Disposition: Home or Self Care 08/09/2023 Clinical Communication Department of Oncology in [place], [place] [address] [place] [phone] Anahy Amezcua R.N., O.C.N. 08/09/2023 Documentation Department of Oncology in [place], [place] [address] [place] [phone] Pérez Zuniga M.D., Ph.D. 08/09/2023 Hospital Encounter [facility] Bed Planning Felicity Vargas M.D. Jhonathan Gray M.D., Ph.D. 08/08/2023 Intake [facility] 08/08/2023 Clinical Communication Department of Oncology in [place], [place] [address] [place] [phone] Cherelle Sanabria M.D. 08/06/2023 2:30 PM INSURANCE CLAIMS ADJUSTER Clinical Communication Virtual Review in [place], [place] 200 [place] [address] 08/04/2023 Specialty Pharmacy [facility] [address] [place] [address] Demetrius Londono Jr., R.Ph. 07/29/2023 10:15 AM INSURANCE CLAIMS ADJUSTER Telemedicine Department of Palliative Care in [place], [place] [address] [place] [phone] Valentine Kelsey M.D., M.S. Melanoma Trunk (HCC) (Primary Dx); Secondary Malignant Neoplasm Bone (HCC); Pain Cancer Associated; Palliative Care 07/26/2023 1:15 PM INSURANCE CLAIMS ADJUSTER Telemedicine Department of Palliative Care in [place], [place] [address] [place] [phone] Marija Olivas APRN, C.N.P., M.S.N. Meka Rinaldi D.N.P., R.N., [facility] Palliative Care 07/17/2023 4:15 PM INSURANCE CLAIMS ADJUSTER Comprehensive Visit Department of Dermatology in [place], [place] [address] [place] [phone] Naida Mejia P.A.-C., M.S. Anh Lee M.D. Nevi Multiple (Primary Dx); Melanoma Trunk (HCC); Secondary Malignant Neoplasm Bone (HCC); Screening Examination Skin Cancer; Dermatoheliosis; Tumor Skin Uncertain Behavior 07/17/2023 12:45 PM INSURANCE CLAIMS ADJUSTER Ancillary Procedure Department of Ophthalmology 07/17/2023 11:45 AM INSURANCE CLAIMS ADJUSTER Office Visit Department of Ophthalmology in [place], [place] [address] [place] [phone] Wolfgang Larose M.D. Hemorrhage Retinal Bilateral (Primary Dx); Melanoma Trunk (HCC) 07/17/2023 11:30 AM INSURANCE CLAIMS ADJUSTER Ancillary Procedure Department of Ophthalmology in [place], [place] [address] [place] [phone] Phi Palm M.D., Ph.D. Hemorrhage Retinal Bilateral 07/17/2023 10:40 AM INSURANCE CLAIMS ADJUSTER Ancillary Procedure Department of Ophthalmology in [place], [place] [address] [place] [phone] Phi Palm M.D., Ph.D. 07/17/2023 10:00 AM INSURANCE CLAIMS ADJUSTER Procedure visit Department of Ophthalmology in [place], [place] [address] [place] [phone] Phi Palm M.D., Ph.D. Suleiman Vargas Hemorrhage Retinal Bilateral 07/17/2023 12:10 AM INSURANCE CLAIMS ADJUSTER Ancillary Procedure Department of Dermatology 07/17/2023 12:05 AM INSURANCE CLAIMS ADJUSTER Ancillary Procedure Department of Dermatology 07/17/2023 Ancillary Procedure Department of Ophthalmology 07/16/2023 Clinical Communication Department of Palliative Care in [place], [place] [address] [place] [phone] Meka Rinaldi D.N.P., R.N., [facility] 07/10/2023 Orders Only Department of Ophthalmology in [place], [place] [address] [place] [phone] Ani Bashir 07/05/2023 2:30 PM INSURANCE CLAIMS ADJUSTER Comprehensive Visit Department of Ophthalmology in [place], [place] [address] [place] [phone] Wolfgang Larose M.D. Hemorrhage Retinal Bilateral (Primary Dx) 07/05/2023 Clinical Communication Department of Oncology in [place], [place] [address] [place] [phone] Anahy Amezcua R.N., O.C.N. Sx - retinal hemorrhaging 07/04/2023 12:20 PM INSURANCE CLAIMS ADJUSTER Office Visit Department of Oncology in [place], [place] [address] [place] [phone] Pérez Zuniga M.D., Ph.D. Melanoma Trunk (HCC) (Primary Dx); Nausea 07/04/2023 10:30 AM INSURANCE CLAIMS ADJUSTER Clinical Support Department of Palliative Care in [place], [place] [address] [place] [phone] Valentine Kelsey M.D., M.S. Inés Wiley R.Makenzie. Melanoma Trunk (HCC); Nausea 07/04/2023 9:36 AM INSURANCE CLAIMS ADJUSTER - 07/04/2023 11:59 PM INSURANCE CLAIMS ADJUSTER Hospital Encounter Department of Laboratory Medicine and Pathology, [facility] in [place], [place] [address] [place] [phone] Pérez Zuniga M.D., Ph.D. Melanoma Trunk (HCC); Secondary Malignant Neoplasm Bone (HCC); Other Alf Current Drug Therapy Discharge Disposition: Home or Self Care 07/04/2023 Clinical Communication Department of Ophthalmology in [place], [place] [address] [place] [phone] Provider, Unknown 07/04/2023 Clinical Communication Department of Palliative Care in [place], [place] [address] [place] [phone] Inés Wiley, R.N. 07/01/2023 3:00 PM INSURANCE CLAIMS ADJUSTER Telemedicine Department of Palliative Care in [place], [place] [address] [place] [phone] Valentine Kelsey M.D., M.S. Melanoma Trunk (HCC) (Primary Dx); Nausea; Pain Cancer Associated; Palliative Care 07/01/2023 Clinical Communication [facility] [address] [place] [phone] Cherelle Brooks C.Ph.T. Redirect Prescriptions 06/24/2023 Clinical Communication Department of Palliative Care in [place], [place] [address] [place] [phone] Valentine Kelsey M.D., M.S. Rx Denial (XTAMPZA ER 9 MG CAPSULES) 06/21/2023 8:30 AM INSURANCE CLAIMS ADJUSTER Comprehensive Visit Department of Palliative Care in [place], [place] [address] [place] [phone] Pérez Zuniga M.D., Ph.D. Valentine Kelsey M.D., M.S. Rachelle Oliver R.N. Melanoma Trunk (HCC); Secondary Malignant Neoplasm Bone (HCC) 06/20/2023 4:40 PM INSURANCE CLAIMS ADJUSTER Office Visit Department of Oncology in [place], [place] [address] [place] [phone] Pérez Zuniga M.D., Ph.D. Melanoma Trunk (HCC) (Primary Dx); Secondary Malignant Neoplasm Bone (HCC); Other Director Of Home Economics Current Drug Therapy 06/20/2023 3:00 PM INSURANCE CLAIMS ADJUSTER Nurse Only Department of Oncology in [address] [phone] Laura Dalal M.D. Akosua Liz D.N.PSantosh, R.N. 06/20/2023 12:07 PM INSURANCE CLAIMS ADJUSTER - 06/20/2023 11:59 PM INSURANCE CLAIMS ADJUSTER Hospital Encounter Department of Cardiovascular Diseases in [address] [phone] Pérez Zuniga M.D., Ph.D. Melanoma Trunk (HCC); Secondary Malignant Neoplasm Bone (HCC); Other Director Of Home Economics Current Drug Therapy Discharge Disposition: Home or Self Care 06/20/2023 11:46 AM INSURANCE CLAIMS ADJUSTER - 06/20/2023 12:06 PM INSURANCE CLAIMS ADJUSTER Hospital Encounter Department of Laboratory Medicine and Pathology, [facility] in [address] [phone] Pérez Zuniga M.D., Ph.D. Melanoma Trunk (HCC); Secondary Malignant Neoplasm Bone (HCC) Discharge Disposition: Home or Self Care 06/17/2023 7:00 AM INSURANCE CLAIMS ADJUSTER Clinical Communication Virtual Review in [place], [place] [address] [place] [address] Pre-visit Intake 06/10/2023 Clinical Communication Department of Oncology in [address] [phone] Akosua Liz D.N.P., R.N. 06/05/2023 Clinical Communication [facility] [address] [place] [phone] Joanne Yoo C.Ph.T. Specialty Medication Delivery 06/05/2023 Specialty Pharmacy [facility] [address] [place] [phone] Yessi Patel, Pharm.D., R.Ph. Melanoma Trunk (HCC) (Primary Dx) 06/05/2023 Specialty Pharmacy [facility] [address] [place] [phone] Yessi Patel, Pharm.D., R.Ph. 06/05/2023 Clinical Communication Department of Oncology in [place], [place] [address] [place] [phone] Anahy Amezcua R.N., O.C.N. 06/04/2023 4:40 PM INSURANCE CLAIMS ADJUSTER Education Department of Oncology in [place], [place] [address] [place] [phone] Pérez Zuniga M.D., Ph.D. Anahy Amezcua R.N., O.C.N. Melanoma Trunk (HCC); Secondary Malignant Neoplasm Bone (HCC) 06/04/2023 2:20 PM INSURANCE CLAIMS ADJUSTER Comprehensive Visit Department of Oncology in [place], [place] [address] [place] [phone] Pérez Zuniga M.D., Ph.D. Melanoma Trunk (HCC) (Primary Dx); Secondary Malignant Neoplasm Bone (HCC); Other Alf Current Drug Therapy 06/04/2023 7:35 AM INSURANCE CLAIMS ADJUSTER Ancillary Procedure Department of Radiology in [place], [place] [address] [place] [phone] Pérez Zuniga M.D., Ph.D. Melanoma Trunk (HCC); Secondary Malignant Neoplasm Bone (HCC) 06/04/2023 7:35 AM INSURANCE CLAIMS ADJUSTER Ancillary Procedure Department of Radiology in [place], [place] [address] [place] [address] Pérez Zuniga M.D., Ph.D. Melanoma Trunk (HCC); Secondary Malignant Neoplasm Bone (HCC) 06/04/2023 Orders Only [facility] [address] [place] [phone] Joy Hernandez, PharmSantoshDSantosh, R.Ph. 05/30/2023 1:00 PM INSURANCE CLAIMS ADJUSTER Lab RST RO [facility] [address] [place] [phone] Naida Mejia P.A.-C., M.S. Melanoma Trunk (HCC); Secondary Malignant Neoplasm Bone (HCC) 05/29/2023 5:50 PM INSURANCE CLAIMS ADJUSTER - 05/29/2023 11:59 PM INSURANCE CLAIMS ADJUSTER Hospital Encounter Department of Radiology, [facility] in [place], [place] [address] [place] [address] Naida Mejia P.A.-C., M.S. Melanoma Trunk (HCC); Secondary Malignant Neoplasm Bone (HCC) Discharge Disposition: Home or Self Care 05/29/2023 5:21 PM INSURANCE CLAIMS ADJUSTER - 05/29/2023 5:49 PM INSURANCE CLAIMS ADJUSTER Hospital Encounter Department of Laboratory Medicine and Pathology, [facility] in [place], [place] [address] [place] [address] Naida Mejia P.A.-C., M.S. Melanoma Trunk (HCC); Secondary Malignant Neoplasm Bone (HCC) Discharge Disposition: Home or Self Care 05/29/2023 2:15 PM INSURANCE CLAIMS ADJUSTER Admin Visit Department of Oncology in [place], [place] [address] [place] [phone] 05/29/2023 Clinical Communication Department of Oncology in [place], [place] [address] [place] [phone] Naida Mejia P.A.-C., M.S. Pre-visit Testing Orders 05/28/2023 Clinical Communication Department of Oncology in [place], [place] [address] [place] [phone] Naida Mejia P.A.-C., M.S. Pre-visit Testing Orders (New Reg) 05/24/2023 7:55 AM INSURANCE CLAIMS ADJUSTER Lab RST RO [facility]MP [address] [place] [phone] Naida Mejia P.A.-C., M.S. Melanoma Trunk (HCC); Secondary Malignant Neoplasm Bone (HCC) 05/23/2023 Clinical Communication Department of Oncology in [place], [place] [address] [place] [phone] Naida Mejia P.A.-C., M.S. 05/23/2023 Clinical Communication Department of Oncology in [place], [place] [address] [place] [phone] Provider, Unknown [facility] (Med Onc) 05/22/2023 Clinical Communication Department of Oncology in [place], [place] [address] [place] [phone] Naida Mejia P.A.-C., M.S. 05/22/2023 Clinical Communication Department of Oncology in [place], [place] [address] [place] [phone] Prescheduling, Provider Pre-visit Intake (NEW REG ) 05/13/2023 11:59 PM CDT Hospital Encounter Department of Radiology, [facility], in [place], [place] [address] [place] [address] Lacho Joshi M.D. Canceled (Patient: Request) Discharge [...] = 0.6 oz pur e alcohol) Occasional [facility] Utilities Answer Date Recorded In the past [...] your living situation today? I have a [facility] place to live 07/10/2023 Sex and Gender Information Value Date Recorded Sex Assigned at Female 05/31/2023 8:26 AM INSURANCE CLAIMS ADJUSTER Gender Identity Female 05/31/2023 8:26 AM INSURANCE CLAIMS ADJUSTER Sexual Orientation Straight 05/31/2023 8: 26 AM INSURANCE CLAIMS ADJUSTER Last Filed Vital Signs Vital Sign Reading Time Taken Comments Blood Pressure 97/61 08/09/2023 3:00 PM INSURANCE CLAIMS ADJUSTER Pulse 96 08/09/2023 3:00 PM INSURANCE CLAIMS ADJUSTER Temperature 36.9 ??C (98.5 ??F) 08/09/2023 3:00 PM CS T Respiratory Rate 18 08/09/2023 3:00 PM INSURANCE CLAIMS ADJUSTER Oxygen Saturation 99% 08/09/2023 3:00 PM INSURANCE CLAIMS ADJUSTER Inhaled Oxygen Concentration - - Weight 79.3 kg (174 lb 13.2 oz) 08/09/2023 7:30 AM INSURANCE CLAIMS ADJUSTER Height 154.9 cm (5' 1) 08/09/2023 8:00 AM INSURANCE CLAIMS ADJUSTER Body Mass Index 33.03 08/09/2023 7:30 AM INSURANCE CLAIMS ADJUSTER Plan of Treatment Upcoming Encounters Date Type Department Care Team (Late st Contact Info) Description 08/19/2023 6:40 AM INSURANCE CLAIMS ADJUSTER Appointment Department of Laboratory Medicine and Pathology, [facility] in [place], [place] [address] [place] [phone] Pérez Zuniga M.D., Ph.D. [address] [place] [phone] 08/19/2023 7:00 AM INSURANCE CLAIMS ADJUSTER Ancillary Procedure Department of Cardiovascular Medicine in [address] [phone] Pérez Zuniga M.D., Ph.D. [address] [place] [phone] 08/19/2023 9:00 AM INSURANCE CLAIMS ADJUSTER Appointment Department of Radiology, [facility] in [place], [place] [address] [place] [phone] Pérez Zuniga M.D., Ph.D. [address] [place] [phone] 08/19/2023 3:40 PM INSURANCE CLAIMS ADJUSTER Office Visit Department of Oncology in [address] [phone] Zhane Granados APRN, C.N.P. [address] [place] [phone] 08/21/2023 10:15 AM INSURANCE CLAIMS ADJUSTER Clinical Support Department of Palliative Care in [place], [place] [address] [place] [address] Serenity Kelsey, Eliane. [address] [place] [address] Meka Rinaldi D.N.P., R.N., [facility] Health Maintenance Due Date Last Done [...] FUNCTION PANEL, S Timed 08/09/2023 12:22 PM INSURANCE CLAIMS ADJUSTER US GALLBLADDER AND OR BILIARY DUCTS RAD - Semiurgent (Fast; most ED patients; some inpatients) 08/09/2023 2:44 AM INSURANCE CLAIMS ADJUSTER INTERPRETATION OF OUTSIDE CT ABDOMEN AND OR PELVIS RAD - Semiurgent (Fast; most ED patients; some inpatients) 08/09/2023 2:14 AM INSURANCE CLAIMS ADJUSTER ECG STAT 08/09/2023 12:49 AM INSURANCE CLAIMS ADJUSTER VBG & LYTES CG8+, POCT, B STAT 08/09/2023 12:49 AM INSURANCE CLAIMS ADJUSTER LACTATE FOR SEPSIS WITH REFLEX, POCT STAT 08/09/2023 12:49 AM INSURANCE CLAIMS ADJUSTER LIPASE, S/P STAT 08/09/2023 12:49 AM INSURANCE CLAIMS ADJUSTER HEPATIC FUNCTION PANEL, S STAT 08/09/2023 12:49 AM INSURANCE CLAIMS ADJUSTER BASIC METABOLIC PANEL, S/P STAT 08/09/2023 12:49 AM INSURANCE CLAIMS ADJUSTER CBC WITH DIFFERENTIAL, B STAT 08/09/2023 12:49 AM INSURANCE CLAIMS ADJUSTER OUTSIDE CT BODY Routine 08/08/2023 6:45 PM INSURANCE CLAIMS ADJUSTER OUTSIDE DX CHEST Routine 08/08/2023 6:10 PM INSURANCE CLAIMS ADJUSTER DERMATOPATHOLOGY Routine 07/17/2023 4:41 PM INSURANCE CLAIMS ADJUSTER 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) Screening Examination Skin Cancer Dermatoheliosis Nevi Multiple ANGIOGRAPHY - OU - BOTH EYES Routine 07/17/2023 12:55 PM INSURANCE CLAIMS ADJUSTER Hemorrhage Retinal Bilateral OPHTHALMOLOGY IMAGE EXAM Routine 07/17/2023 12:45 PM INSURANCE CLAIMS ADJUSTER FUNDUS PHOTOS - OU - BOTH EYES Routine 07/17/2023 11:52 AM INSURANCE CLAIMS ADJUSTER Hemorrhage Retinal Bilateral DERMATOLOGY IMAGE EXAM Routine 12:10 AM INSURANCE CLAIMS ADJUSTER DERMATOLOGY IMAGE EXAM Routine 12:05 AM INSURANCE CLAIMS ADJUSTER OPHTHALMOLOGY IMAGE EXAM Routine 07/17/2023 12:00 AM INSURANCE CLAIMS ADJUSTER ECG Routine 07/04/2023 10:08 AM INSURANCE CLAIMS ADJUSTER 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) Other Director Of Home Economics Current Drug Therapy CBC WITH DIFFERENTIAL, B Routine 07/04/2023 9:50 AM INSURANCE CLAIMS ADJUSTER 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) Other Alf Current Drug Therapy THYROID FUNCTION CASCADE, S Routine 07/04/2023 9:49 AM INSURANCE CLAIMS ADJUSTER 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) Other Director Of Home Economics Current Drug Therapy COMPREHENSIVE METABOLIC PANEL, S/P Routine 07/04/2023 9:49 AM INSURANCE CLAIMS ADJUSTER 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) Other Director Of Home Economics Current Drug Therapy (TTE) 2D ECHO DOPPLER COLOR Routine 06/20/2023 1:28 PM INSURANCE CLAIMS ADJUSTER 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) Other Alf Current Drug Therapy TYPE AND SCREEN Routine 06/20/2023 12:01 PM INSURANCE CLAIMS ADJUSTER 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) THYROID FUNCTION CASCADE, S Routine 06/20/2023 12:01 PM INSURANCE CLAIMS ADJUSTER 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) COMPREHENSIVE METABOLIC PANEL, S/P Routine 06/20/2023 12:01 PM INSURANCE CLAIMS ADJUSTER 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) CBC WITH DIFFERENTIAL, B Routine 06/20/2023 12:01 PM INSURANCE CLAIMS ADJUSTER 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) ECG Routine 06/04/2023 4:02 PM INSURANCE CLAIMS ADJUSTER 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) INTERPRETATION OF OUTSIDE NM PET SCAN RAD - Routine (most inpatients and all outpatients) 06/04/2023 7:56 AM INSURANCE CLAIMS ADJUSTER 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) INTERPRETATION OF OUTSIDE MR EXTREMITY RAD - Routine (most inpatients and all outpatients) 06/04/2023 7:54 AM INSURANCE CLAIMS ADJUSTER 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) MR BRAIN WITHOUT AND WITH IV CONTRAST RAD - Routine (most inpatients and all outpatients) 05/29/2023 7:09 PM INSURANCE CLAIMS ADJUSTER 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) DC T4 FREE Routine 05/29/2023 5:35 PM INSURANCE CLAIMS ADJUSTER THYROPEROXIDASE (TPO) ABS, S Routine 05/29/2023 5:35 PM INSURANCE CLAIMS ADJUSTER THYROID FUNCTION CASCADE, S Routine 05/29/2023 5:35 PM INSURANCE CLAIMS ADJUSTER 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) LACTATE DEHYDROGENASE (LD), S Routine 05/29/2023 5:35 PM INSURANCE CLAIMS ADJUSTER 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) COMPREHENSIVE METABOLIC PANEL, S/P Routine 05/29/2023 5:35 PM INSURANCE CLAIMS ADJUSTER 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) CBC WITH DIFFERENTIAL, B Routine 05/29/2023 5:35 PM INSURANCE CLAIMS ADJUSTER Melanoma Trunk (HCC) Secondary Malignant Neoplasm Bone [...] (ABNORMAL) Hepatic Function Panel (08/09/2023 12:22 PM INSURANCE CLAIMS ADJUSTER) Only the most recent of2 resultswithin the time period is included. Bilirubin, Total, S 1.3(H) 0.0 - 1.2 mg/dL 08/09/2023 1:29 PM INSURANCE CLAIMS ADJUSTER DTL Bilirubin, Direct, S 1.1(H) 0.0 - 0.3 mg/dL 08/09/2023 1:29 PM INSURANCE CLAIMS ADJUSTER DTL Aspartate Aminotransferase (AST), S 154(H) 8 - 43 U/L 08/09/2023 1:29 PM INSURANCE CLAIMS ADJUSTER DTL Alanine Aminotransferase (ALT), S 127(H) 7 - 45 U/L 08/09/2023 1:29 PM INSURANCE CLAIMS ADJUSTER DTL Alkaline Phosphatase, S 396(H) 35 - 104 U/L 08/09/2023 1:29 PM INSURANCE CLAIMS ADJUSTER DTL Albumin, S 3.5 3.5 - 5.0 g/dL 08/09/2023 1:29 PM INSURANCE CLAIMS ADJUSTER DTL Protein, Total, S 6.2(L) 6.3 - 7.9 g/dL 08/09/2023 1:29 PM INSURANCE CLAIMS ADJUSTER DTL Blood (Blood, Venous) 08/09/2023 12:22 PM INSURANCE CLAIMS ADJUSTER 08/09/2023 1:14 PM INSURANCE CLAIMS ADJUSTER Lesvia Ma APRN, C.N.P., M.S.N. [place] B BLOOD ADD-ON [facility] [address] [place] [address], [facility] DTL [facility] [address] [place] [address] * US Gallbladder and or Biliary Ducts (08/09/2023 2:44 AM INSURANCE CLAIMS ADJUSTER) Anatomical Region Laterality Modality Abdomen, Ultrasound RST LOS, Ultrasound ARZ LOS, Ultrasound FLA LOS N/A Ultrasound Impressions 08/09/2023 8:05 AM INSURANCE CLAIMS ADJUSTER Cholelithiasis without evidence of acute cholecystitis. Narrative 08/09/2023 8:05 AM INSURANCE CLAIMS ADJUSTER EXAM: US GALLBLADDER AND OR BILIARY DUCTS [...] cholecystitis. Jose Cavanaugh APRN, C.N.P. IMG US DC OCEDURES * Interpretation of Outside CT Abdomen and or Pelvis (08/09/2023 2:14 AM INSURANCE CLAIMS ADJUSTER) Anatomical Region Laterality Modality Abdomen, Pelvis, Abdominal R ST LOS, Abdominal ARZ LOS, Abdominal FLA LOS, Other N/A Computed Tomography Impressions 08/09/2023 5:35 AM INSURANCE CLAIMS ADJUSTER 1. ??No evidence of cholangitis. 2. There is a new 13 x 20 mm nodule in the right lower lobe (09/04). This lesion has an irregular, ground glass border and contains an air bronchogram. Infection and metastatic disease are in the differential. 3. Interval increased size in multiple partially treated bone metastases. Narrative 08/09/2023 5:35 AM INSURANCE CLAIMS ADJUSTER EXAM: ??INTERPRETATION OF OUTSIDE CT ABDOMEN AND [...] bonemetastases. Jose Cavanaugh APRN, C.N.P. IMG CT DC OCEDURES * ECG 12 Lead (08/09/2023 12:49 AM INSURANCE CLAIMS ADJUSTER) Only the most recent of3 resultswithin the time period is included. Ventricular Rate ECG/Min 66 BPM MUSE DC Interval 150 ms MUSE QRSD Interval 86 ms MUSE QT Interval 456 ms MUSE QTC Interval 478 ms MUSE P Eleele 52 degrees MUSE R Eleele 80 degrees MUSE T Wave Eleele 86 degrees MUSE 08/09/2023 12:4 9 AM INSURANCE CLAIMS ADJUSTER 08/09/2023 12:51 AM INSURANCE CLAIMS ADJUSTER Impressions MUSE - 08/09/2023 12:51 AM INSURANCE CLAIMS ADJUSTER Normal sinus rhythm Low anterior forces Nonspecific [...] Sepsis with Reflex, POCT (08/09/2023 12:49 AM INSURANCE CLAIMS ADJUSTER) Pathologist [facility] Lactate, POCT 1.33 0.50 - 2.20 mmol/L 08/09/2023 1:01 AM INSURANCE CLAIMS ADJUSTER PCLX Blood (Blood, Venous) 08/09/2023 12:49 AM INSURANCE CLAIMS ADJUSTER 08/09/2023 12:49 AM INSURANCE CLAIMS ADJUSTER Jose Caavnaugh APRN, C.N.P. LAB POCT ORDERABLES - DEVICE POC [facility] [address] [place] [address], [place] PCLX [facility] POC [address] [place] [address] * (ABNORMAL) Venous Blood Gas and Electrolytes CG8+, POCT (08/09/2023 12:49 AM INSURANCE CLAIMS ADJUSTER) Sample Site, POCT Venstick 08/09/2023 1:01 AM INSURANCE CLAIMS ADJUSTER PCLX Comment: ----ADDITIONAL INFORMATION---- Performed at the Point of Care pH, Venous, POCT, B 7.37 7.32 - 7.43 08/09/2023 1:01 AM INSURANCE CLAIMS ADJUSTER PCSM Comment: ----ADDITIONAL INFORMATION---- Performed at the Point of Care pCO2, Venous, POCT, B 35(L) 41 - 51 mm Hg 08/09/2023 1:01 AM INSURANCE CLAIMS ADJUSTER PCSM Comment: ----ADDITIONAL INFORMATION---- Performed at the Point of Care pO2, Venous, POCT, B 36 Not Applicable mm Hg 08/09/2023 1:01 AM INSURANCE CLAIMS ADJUSTER PCSM Comment: ----ADDITIONAL INFORMATION---- Performed at the Point of Care Base Excess, Venous, POCT, B -5 Not Applicable mmol/L 08/09/2023 1:01 AM INSURANCE CLAIMS ADJUSTER PCSM Comment: ----ADDITIONAL INFORMATION---- Performed at the Point of Care HCO3, Venous, POCT, B 20 Not Applicable mmol/L 08/09/2023 1:01 AM INSURANCE CLAIMS ADJUSTER PCSM Comment: ----ADDITIONAL INFORMATION---- Performed at the Point of Care Sodium, POCT, B 136 135 - 145 mmol/L 08/09/2023 1:01 AM INSURANCE CLAIMS ADJUSTER PCLX Comment: ----ADDITIONAL INFORMATION---- Performed at the Point of Care Potassium, POCT, B 3.3(L) 3.6 - 5.2 mmol/L 08/09/2023 1:01 AM INSURANCE CLAIMS ADJUSTER PCLX Comment: ----ADDITIONAL INFORMATION---- Performed at the Point of Care Calcium, Ionized, POCT, B 4.60(L) 4.65 - 5.30 mg/dL 08/09/2023 1:01 AM INSURANCE CLAIMS ADJUSTER PCLX Comment: ----ADDITIONAL INFORMATION---- Performed at the Point of Care Glucose, POCT, B 135 70 - 140 mg/dL 08/09/2023 1:01 AM INSURANCE CLAIMS ADJUSTER PCLX Comment: ----ADDITIONAL INFORMATION---- Performed at the Point of Care Hematocrit, POCT, B 31.0(L) 35.5 - 44.9 % 08/09/2023 1:01 AM INSURANCE CLAIMS ADJUSTER PCLX Comment: ----ADDITIONAL INFORMATION---- Performed at the Point of Care Blood (Blood, Venous) 08/09/2023 12:49 AM INSURANCE CLAIMS ADJUSTER 08/09/2023 12:49 AM INSURANCE CLAIMS ADJUSTER Jose Cavanaugh APRN C.N.P. LAB POCT ORDERABLES - DEVICE Performing Organization Address City/State/[facility] Co de Phone Number POC [facility] [address] [place] [address], [facility] PCLX [facility] P[facility] [address] [place] [address] PCSM [facility] POC [address] [place] [id number] * (ABNORMAL) CBC with Differential, Blood (08/09/2023 12:49 AM INSURANCE CLAIMS ADJUSTER) Only the most recent of4 resultswithin the time period is included. Hemoglobin 10.8(L) 11.6 - 15.0 g/dL 08/09/2023 1:00 AM INSURANCE CLAIMS ADJUSTER STMA Hematocrit 32.0(L) 35.5 - 44.9 % 08/09/2023 1:00 AM INSURANCE CLAIMS ADJUSTER STMA Erythrocytes 3.33(L) 3.92 - 5.13 x10(12)/L 08/09/2023 1:00 AM INSURANCE CLAIMS ADJUSTER STMA MCV 96.1 78.2 - 97.9 fL 08/09/2023 1:00 AM INSURANCE CLAIMS ADJUSTER STMA RBC Distrib Width 14.1 12.2 - 16.1 % 08/09/2023 1:00 AM INSURANCE CLAIMS ADJUSTER STMA Platelet Count 226 157 - 371 x10(9)/L 08/09/2023 1:00 AM INSURANCE CLAIMS ADJUSTER STMA Leukocytes 7.9 3.4 - 9.6 x10(9)/L 08/09/2023 1:00 AM INSURANCE CLAIMS ADJUSTER STMA Neutrophils 6.54(H) 1.56 - 6.45 x10(9)/L 08/09/2023 1:00 AM INSURANCE CLAIMS ADJUSTER PM Lymphocytes 1.14 0.95 - 3.07 x10(9)/L 08/09/2023 1:00 AM INSURANCE CLAIMS ADJUSTER STMA Monocytes 0.14(L) 0.26 - 0.81 x10(9)/L 08/09/2023 1:00 AM INSURANCE CLAIMS ADJUSTER STMA Eosinophils <0.03 0.03 - 0.48 x10(9)/L 08/09/2023 1:00 AM INSURANCE CLAIMS ADJUSTER STMA Basophils 0.04 0.01 - 0.08 x10(9)/L 08/09/2023 1:00 AM INSURANCE CLAIMS ADJUSTER STMA Blood (Blood, Venous) 08/09/2023 12:49 AM INSURANCE CLAIMS ADJUSTER 08/09/2023 12:58 AM INSURANCE CLAIMS ADJUSTER Jose Cavanaugh APRN, C.N.P. LAB BLOOD ADD-ON [facility] [address] [place] [address], [facility] STMA [facility] [address] [place] [address] * (ABNORMAL) Lipase (08/09/2023 12:49 AM INSURANCE CLAIMS ADJUSTER) Lipase, S 79(H) 13 - 60 U/L 08/09/2023 1: 51 AM INSURANCE CLAIMS ADJUSTER DTL Blood (Blood, Venous) 08/09/2023 12:49 AM INSURANCE CLAIMS ADJUSTER 08/09/2023 1:20 AM INSURANCE CLAIMS ADJUSTER Jose Cavanaugh APRN, C.N.P. LAB BLOOD ADD-ON [facility] [address] [place] [address], [facility] DTL [facility] [address] [place] [address] * (ABNORMAL) Basic Metabolic Panel (08/09/2023 12:49 AM INSURANCE CLAIMS ADJUSTER) Potassium, P 3.3(L) 3.6 - 5.2 mmol/L 08/09/2023 1:44 AM INSURANCE CLAIMS ADJUSTER DTL Sodium, P 137 135 - 145 mmol/L 08/09/2023 1:44 AM INSURANCE CLAIMS ADJUSTER DTL Chloride, P 102 98 - 107 mmol/L 08/09/2023 1:44 AM INSURANCE CLAIMS ADJUSTER DTL Bicarbonate, P 18(L) 22 - 29 mmol/L 08/09/2023 1:44 AM INSURANCE CLAIMS ADJUSTER DTL Anion Gap, P 17(H) 7 - 15 08/09/2023 1:44 AM INSURANCE CLAIMS ADJUSTER DTL BUN (Blood Urea Nitrogen), P 16 6 - 21 mg/dL 08/09/2023 1:44 AM INSURANCE CLAIMS ADJUSTER DTL Creatinine 0.95 0.59 - 1.04 mg/dL 08/09/2023 1:44 AM INSURANCE CLAIMS ADJUSTER DTL Estimated GFR (eGFR) 75 >=60 mL/min/BSA 08/09/2023 1:44 AM INSURANCE CLAIMS ADJUSTER DTL Comment: Estimated GFR calculated using the 2020 CKD_EPI creatinine equation. Calcium, Total, P 8.6 8.6 - 10.0 mg/dL 08/09/2023 1:44 AM INSURANCE CLAIMS ADJUSTER DTL Glucose, P 138 70 - 140 mg/dL 08/09/2023 1:44 AM INSURANCE CLAIMS ADJUSTER DTL Blood (Blood, Venous) 08/09/2023 12:49 AM INSURANCE CLAIMS ADJUSTER 08/09/2023 1:20 AM INSURANCE CLAIMS ADJUSTER Jose Cavanaugh APRN, C.N.P. LAB BLOOD ADD-ON [facility] [address] [place] [address], [facility] DTL [facility] [address] [place] [address] * CT ABDOMEN PELVIS W CON-Outside CT Body (08/08/2023 6:45 PM INSURANCE CLAIMS ADJUSTER) 08/08/2023 6:44 PM INSURANCE CLAIMS ADJUSTER Narrative IIMS - 08/08/2023 9:23 PM INSURANCE CLAIMS ADJUSTER This order has been created and auto-finalized to support the import of outside images. If available, original interpretation can be found on the Media Tab in Chart Review, in Document Viewer, or as an image in QREADS. If a re-interpretation or overread is required please follow defined workflow. ?? Provider Not In System IMG CT PROCEDURES Performing Organization Address [facility] de Phone Number IIMS NA * XR CHEST 1V PORTABLE-Outside Chest Xray (08/08/2023 6:10 PM INSURANCE CLAIMS ADJUSTER) Only the most recent of2 resultswithin the time period is included. 08/08/2023 6:06 PM INSURANCE CLAIMS ADJUSTER Narrative IIMS - 08/08/2023 9:19 PM INSURANCE CLAIMS ADJUSTER This order has been created and auto-finalized to support the import of outside images. If available, original interpretation can be found on the Media Tab in Chart Review, in Document Viewer, or as an image in QREADS. If a re-interpretation or overread is required please follow defined workflow. ?? Provider Not In System IMG DIAGNOSTIC IM AGING PROCEDURES Performing Organization Address [facility] de Phone Number IIMS NA * Dermatopathology (07/17/2023 4:41 PM INSURANCE CLAIMS ADJUSTER) 07/22/2023 6:51 AM INSURANCE CLAIMS ADJUSTER PDRM Report electronically signed by Catalina Martell M.D. 07/22/2023 6:51 AM INSURANCE CLAIMS ADJUSTER PDRM Gross Description Received in formalin labeled [...] A1. ??Grossed by AJElvin. 07/22/2023 6:51 AM INSURANCE CLAIMS ADJUSTER PDRM Interpretation FINAL DIAGNOSIS A. ??Right Shoulder - Anterior, Skin punch biopsy: Lentiginous compound nevus COMMENT Clinical note and photos reviewed. Diagnosis was made via digital imaging. A portion of the testing process was performed at [facility] site [id number]. 07/22/2023 6:51 AM INSURANCE CLAIMS ADJUSTER PDRM Skin (Right Shoulder - Anterior) 07/17/2023 4:40 PM INSURANCE CLAIMS ADJUSTER Anh Lee M.D. LAB PATH DERM OR DERABLES Performing Organization Address [facility] Co de Phone Number [facility] [address] [place] [address], [facility] PDRM [address] [facility] 200 [place] [address] * Fluorescein Angiography - OU - Both Eyes (07/17/2023 12:55 PM INSURANCE CLAIMS ADJUSTER) Narrative OPHTHALMOLOGY IMAGING EXAM - 07/17/2023 7:03 PM INSURANCE CLAIMS ADJUSTER Right Eye Dye used is fluorescein. Fluorescein dose given is normal. Left Eye Dye used is fluorescein. Fluorescein dose given is normal. Notes Interpretation in note Phi Palm M.D., Ph.D. OPHTH PHOTOGRA PHY Performing Organization Address [facility] de Phone Number OPHTHALMOLOGY IMAGING EXAM * [employer]-Ophthalmology Image Exam (07/17/2023 12:45 PM INSURANCE CLAIMS ADJUSTER) Only the most recent of2 resultswithin the time period is included. 07/17/2023 12:4 5 PM INSURANCE CLAIMS ADJUSTER Narrative IIMS - 07/17/2023 1:03 PM INSURANCE CLAIMS ADJUSTER This order has been created and auto-finalized to support the import of images acquired without order. The clinical documentation to support these images can be found on the encounter that produced images. Provider Not In System IMG NON RAD IMAGI NG PROCEDURES Performing Organization Address [facility] Co de Phone Number IIMS NA * Fundus Photos - OU - Both Eyes (07/17/2023 11:52 AM INSURANCE CLAIMS ADJUSTER) Narrative OPHTHALMOLOGY IMAGING EXAM - 07/17/2023 7:03 PM INSURANCE CLAIMS ADJUSTER Right Eye Field of view is standard view. Fundus photo type obtained is Color. Left Eye Field of view is standard view. Fundus photo type obtained is Color. Notes Interpretation in note Phi Palm M.D., Ph.D. OPHTH PHOTOGRA ZABRINAY Performing Organization Address [facility] Co de Phone Number OPHTHALMOLOGY IMAGING EXAM * Shoulder Dermoscopy-Dermatology Image Exam (07/17/2023 12:10 AM INSURANCE CLAIMS ADJUSTER) Only the most recent of2 resultswithin the time period is included. Narrative IIMS - 07/18/2023 7:21 AM INSURANCE CLAIMS ADJUSTER This order has been created and auto-finalized to support the import of images acquired without order. The clinical documentation to support these images can be found on the encounter that produced images. Provider Not In System IMG NON RAD IMAGI NG PROCEDURES Performing Organization Address [facility] de Phone Number IIMT NA * Thyroid Function Mcgrady (07/04/2023 9:49 AM INSURANCE CLAIMS ADJUSTER) Only the most recent of3 resultswithin the time period is included. TSH, Sensitive 2.3 0.3 - 4.2 mIU/L 07/04/2023 11:05 AM INSURANCE CLAIMS ADJUSTER DTL Blood (Blood, Venous) 07/04/2023 9:49 AM INSURANCE CLAIMS ADJUSTER 07/04/2023 10:29 AM INSURANCE CLAIMS ADJUSTER Pérez Zuniga M.D., Ph.D. LAB BLOO D ADD-ON Performing Organization Address [facility] de Phone Number [facility] [address] [place] [address], [facility] DTL [facility] [address] [place] [address] * (ABNORMAL) Comprehensive Metabolic Panel (07/04/2023 9:49 AM INSURANCE CLAIMS ADJUSTER) Only the most recent of3 resultswithin the time period is included. Potassium, S 4.7 3.6 - 5.2 mmol/L 07/04/2023 11:05 AM INSURANCE CLAIMS ADJUSTER DTL Sodium, S 137 135 - 145 mmol/L 07/04/2023 11:05 AM INSURANCE CLAIMS ADJUSTER DTL Chloride, S 103 98 - 107 mmol/L 07/04/2023 11:05 AM INSURANCE CLAIMS ADJUSTER DTL Bicarbonate, S 24 22 - 29 mmol/L 07/04/2023 11:05 AM INSURANCE CLAIMS ADJUSTER DTL Anion Gap 10 7 - 15 07/04/2023 11:05 AM INSURANCE CLAIMS ADJUSTER DTL BUN (Blood Urea Nitrogen), S 22(H) 6 - 21 mg/dL 07/04/2023 11:05 AM INSURANCE CLAIMS ADJUSTER DTL Creatinine 0.90 0.59 - 1.04 mg/dL 07/04/2023 11:05 AM INSURANCE CLAIMS ADJUSTER DTL Estimated GFR (eGFR) 80 >=60 mL/min/BS A 07/04/2023 11:05 AM INSURANCE CLAIMS ADJUSTER DTL Comment: Estimated GFR calculated using the 2020 CKD_EPI creatinine equation. Calcium, Total, S 9.9 8.6 - 10.0 mg/dL 07/04/2023 11:05 AM INSURANCE CLAIMS ADJUSTER DTL Glucose, S 98 70 - 140 mg/dL 07/04/2023 11:05 AM INSURANCE CLAIMS ADJUSTER DTL Protein, Total, S 7.7 6.3 - 7.9 g/dL 07/04/2023 11:05 AM INSURANCE CLAIMS ADJUSTER DTL Albumin, S 4.3 3.5 - 5.0 g/dL 07/04/2023 11:05 AM INSURANCE CLAIMS ADJUSTER DTL Aspartate Aminotransferase (AST), S 26 8 - 43 U/L 07/04/2023 11:05 AM INSURANCE CLAIMS ADJUSTER DTL Alkaline Phosphatase, S 229(H) 35 - 104 U/L 07/04/2023 11:05 AM INSURANCE CLAIMS ADJUSTER DTL Alanine Aminotransferase (ALT), S 24 7 - 45 U/L 07/04/2023 11:05 AM INSURANCE CLAIMS ADJUSTER DTL Bilirubin, Total, S 0.2 0.0 - 1.2 mg/dL 07/04/2023 11:05 AM INSURANCE CLAIMS ADJUSTER DTL Blood (Blood, Venous) 07/04/2023 9:49 AM INSURANCE CLAIMS ADJUSTER 07/04/2023 10:29 AM INSURANCE CLAIMS ADJUSTER Pérez Zuniga M.D., Ph.D. LAB BLOO D ADD-ON [facility] [address] [place] [address], [place] DTL [facility] [address] [place] [address] * (TTE) 2D ECHO DOPPLER COLOR (06/20/2023 1:28 PM INSURANCE CLAIMS ADJUSTER) Ejection Fraction 65 MC CV EIMS Mid-Ascending [...] Laterality Modality Other 06/20/2023 12:3 4 PM INSURANCE CLAIMS ADJUSTER Impressions 06/20/2023 1:42 PM INSURANCE CLAIMS ADJUSTER There are no previous [facility] echocardiograms available for comparison. LEFT VENTRICLE:Normal [...] the Order-Level Documents. Narrative 06/20/2023 1:42 PM INSURANCE CLAIMS ADJUSTER For the complete report, see the Order-Level [...] pericardial effusion. Findings There are no previous [facility] echocardiograms available forcomparison. LEFT VENTRICLE:Normal left [...] (with Reflex Antibody ID) (06/20/2023 12:01 PM INSURANCE CLAIMS ADJUSTER) ABORh O Neg Not applicable 06/20/2023 1:48 PM INSURANCE CLAIMS ADJUSTER ETRM Antibody Screen Negative Negative 06/20/2023 2:00 PM INSURANCE CLAIMS ADJUSTER ETRM Type & Screen Expiration 06/23/2023 23:59 06/20/2023 1:48 PM INSURANCE CLAIMS ADJUSTER ETRM Testing Location Bee DEFAULT 06/20/2023 12:53 PM INSURANCE CLAIMS ADJUSTER ETRM Blood (Blood, Venous) 06/20/2023 12:01 PM INSURANCE CLAIMS ADJUSTER 06/20/2023 12:53 PM INSURANCE CLAIMS ADJUSTER Pérez Zuniga M.D., Ph.D. LAB BLOO D BANK TEST ORDERABLES [facility] [address] [place] [address], [place] ETRM [facility] [address] [place] [address] * Interpretation of Outside NM PET Scan (06/04/2023 7:56 AM INSURANCE CLAIMS ADJUSTER) Anatomical Region Laterality Modality Nuclear Medicine PET RST LOS , Nuclear Medicine ARZ LOS, Nuclear Medicine FLA LOS, Nuclear Medicine, Other, Neuroradiology ARZ LOS, Neuroradiology FLA LOS, Neuroradiology RST LOS, Body N/A Nuclear Medicine 06/10/2023 8:28 AM INSURANCE CLAIMS ADJUSTER Impressions 06/10/2023 10:24 AM INSURANCE CLAIMS ADJUSTER 1. Large intensely hypermetabolic mixed solid and [...] of the report. Narrative 06/10/2023 10:24 AM INSURANCE CLAIMS ADJUSTER EXAM: ??INTERPRETATION OF OUTSIDE NM PET SCAN [...] of Outside MR Extremity (06/04/2023 7:54 AM INSURANCE CLAIMS ADJUSTER) Anatomical Region Laterality Modality Musculoskeletal RST LOS, Mus culoskeletal ARZ LOS, Muskuloskeletal FLA LOS, Musculoskeletal, Other N/A Magnet ic Resonance 06/04/2023 11:3 3 AM INSURANCE CLAIMS ADJUSTER Impressions 06/04/2023 11:45 AM INSURANCE CLAIMS ADJUSTER There are several 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 The largest is seen proximally extending off of the proximal yjfdc-fe-pzhi. This involves the intertrochanteric left femur extending [...] diaphysis, which extends off of the proximal uwuqa-mk-lccg (series 3 and 4 image 15). The lesions right around the knee were not present on the MRI from October 2014 and correlate with areas of hypermetabolic activity on the recent PET CT. Findings are compatible with recent biopsy results of metastatic melanoma. Large gkbsk-af-saev coronal and axial images include the right femur, which demonstrates numerous large intramedullary lesions throughout the right femoral diaphysis as well as the proximal right tibial diaphysis, as well. No definite discrete soft tissue masses within either thigh. Narrative 06/04/2023 11:45 AM INSURANCE CLAIMS ADJUSTER EXAM: ??INTERPRETATION OF OUTSIDE MR LEFT FEMUR [...] is seen proximally extending off of the vqurrutuflbtc-dh-zngp. This involves the intertrochanteric left femur extendingdistally [...] tibial diaphysis, which extends offof the proximal czkbg-vp-mwjy (series 3 and 4 image 15). The lesions right around the knee were not present on the MRIfrom October 2014 and correlate with areas of hypermetabolic activity on therecent PET CT. Findings are compatible with recent biopsy results ofmetastatic melanoma. Large zjqje-nz-jcdx coronal and axial images include the right femur, whichdemonstrates numerous large intramedullary lesions throughout the rightfemoral diaphysis as well as the proximal right tibial diaphysis, as well.No definite discrete soft tissue masses within either thigh. Pérez Zuniga M.D., Ph.D. IMG MRI PROCEDURES * MR Brain without and with IV Contrast (05/29/2023 7:09 PM INSURANCE CLAIMS ADJUSTER) Anatomical Region Laterality Modality Head, Brain, Neuroradiology [facility], [facility]ad[facility], [facility] N/A Magnetic Resonance 05/30/2023 10:1 9 AM INSURANCE CLAIMS ADJUSTER Impressions 05/30/2023 10:38 AM INSURANCE CLAIMS ADJUSTER Multifocal subcentimeter intracranial metastases. No significant associated mass effect or hydrocephalus. Narrative 05/30/2023 10:38 AM INSURANCE CLAIMS ADJUSTER EXAM: MR BRAIN WITHOUT AND WITH IV [...] venous anomaly. Procedure Note Antonio Wood M.D., [facility] - 05/30/2023 EXAM: MR BRAIN WITHOUT AND [...] T4 (Thyroxine), Free, Serum (05/29/2023 5:35 PM INSURANCE CLAIMS ADJUSTER) T4 (Thyroxine), Free, S 1.0 0.9 - 1.7 ng/dL 05/29/2023 7:06 PM INSURANCE CLAIMS ADJUSTER DTL Blood 05/29/2023 5:35 PM INSURANCE CLAIMS ADJUSTER 05/29/2023 6:09 PM INSURANCE CLAIMS ADJUSTER Naida Mejia P.A.-C. MSantoshS. LAB BLOO D ADD-ON [facility] [address] [place] [address], [place] [facility] [address] [place] [address] * Thyroperoxidase (TPO) Antibodies (05/29/2023 5:35 PM INSURANCE CLAIMS ADJUSTER) Thyroperoxidase Ab, S 15.1 <34.0 IU/mL 05/29/2023 7:06 PM INSURANCE CLAIMS ADJUSTER DTL Blood 05/29/2023 5:35 PM INSURANCE CLAIMS ADJUSTER 05/29/2023 6:09 PM INSURANCE CLAIMS ADJUSTER Naida Mejia P.A.-C., M.S. LAB BLOO D ADD-ON Performing Organization Address City/[facility]/ZIP Co de Phone Number [facility] [address] [place] [address], [facility] [address] [place] [address] * (ABNORMAL) LD (Lactate Dehydrogenase) (05/29/2023 5:35 PM INSURANCE CLAIMS ADJUSTER) Lactate Dehydrogenase (LD), S 439(H) 122 - 222 U/L 05/29/2023 6:46 PM INSURANCE CLAIMS ADJUSTER DTL Blood (Blood, Venous) 05/29/2023 5:35 PM INSURANCE CLAIMS ADJUSTER 05/29/2023 6:09 PM INSURANCE CLAIMS ADJUSTER Naida Mejia P.A.-C., M.S. LAB BLOO D NON ADD-ON Performing Organization Address City/[facility] Co de Phone Number [facility] [address] [place] [address], [facility] [address] [place] [address] * PET [facility]_PET_CAP_C (Adult)-Outside NM Pet (05/15/2023 11:00 AM CDT) Narrative IIMS - 05/27/2023 12:26 PM INSURANCE CLAIMS ADJUSTER This order has been created and auto-finalized [...] c.1799T>A (Exon 15) Amino Acid Change: p.V600E ([id number]) Variant Allele Frequency: 49.9% No other reportable sequence variants were detected within the analyzed regions of the tested genes listed in the method description. 06/24/2023 1:13 PM INSURANCE CLAIMS ADJUSTER DTL Additional Information CLINICAL TRIALS Possible clinical trials of benefit for this patient can be found at the following sites: 1) ClinicalTrials.gov: www.clinicaltrials. gov/ct2/search/adva nced 2) [facility]: www.[facility]/resear ch/clinical-trials/ 3) [employer]: www.cancer.gov/clin icaltrials/search REFERENCE TRANSCRIPT Sequence variant nomenclature is based on the following RefSeq accession number (build GRCh37 (hg19)):BRAF [id number]. 06/24/2023 1:13 PM INSURANCE CLAIMS ADJUSTER DTL Specimen Tissue, Tumor 06/24/2023 1:13 PM INSURANCE CLAIMS ADJUSTER DTL Tissue ID [id number] 06/24/2023 1:13 PM INSURANCE CLAIMS ADJUSTER DTL Method Microscopic examination is performed by [...] and additional information on this test, see www.[employer]. [employer] (Test ID BRFKT). 06/24/2023 1:13 PM INSURANCE CLAIMS ADJUSTER DTL Disclaimer This test cannot differentiate between [...] of heterozygosity) and sequencing artifact/misalignme nt [PMID: [id number], PMID: [id number]]. Rare polymorphisms may be present that could [...] developed and its performance characteristics determined by [facility] in a manner consistent with CLIA requirements. This test has not been cleared or approved by the U.S. Food and Drug Administration. 06/24/2023 1:13 PM INSURANCE CLAIMS ADJUSTER DTL Released By Lexy Lang M.D. 06/24/2023 1:13 PM INSURANCE CLAIMS ADJUSTER DTL Interpretation BRAF c.1799T>A (p.V600E) (Exon 15) BRAF encodes the signaling protein Braf, which is downstream of Eduardo and activates the MAPK pathway. Braf signaling is critically involved in the processes of cell division and differentiation. BRAF activating mutations occur predominantly at a single location (V600E). BRAF activating mutations or amplification have been reported to result in uncontrolled cell growth and tumorigenesis [PMID:[id number], PMID:[id number]]. Clinically approved targeted therapy is available for patients with unresectable or metastatic solid tumors with a BRAF V600E mutation [fda.gov/drugs]. 06/24/2023 1:13 PM INSURANCE CLAIMS ADJUSTER DTL Tissue (Bone) 05/13/2023 8:2 7 AM CDT 06/16/2023 1:57 PM INSURANCE CLAIMS ADJUSTER Naida Mejia P.A.-C., M.S. LAB GENE TIC TESTING [facility] [address] [place] [address], [facility] DTL [address] [place] [address] * Pathology Review of Outside Material (05/13/2023 1:26 AM CDT) Pathologist [facility] 06/10/2023 3:51 PM INSURANCE CLAIMS ADJUSTER DTL Participated in the Interpretation Yann Dixon M.D.-Pathology Fellow 06/10/2023 3:51 PM INSURANCE CLAIMS ADJUSTER DTL Report electronically signed by Jose Willis M.D. I verify that I have examined all relevant slides/materials for the specimen(s) and rendered or confirmed the diagnosis. 06/10/2023 3:51 PM INSURANCE CLAIMS ADJUSTER DTL Material Received A. [id number]: Left femur ? 22 stained slides, 20 unstained slides 06/10/2023 3:51 PM INSURANCE CLAIMS ADJUSTER DTL Addendum Genetic testing for BRAF/KIT Mutation Analysis, Tumor (BRFKT) ??will be performed and resulted in the patient's medical record. Signed by Cl Edwards M.D. 06/14/2023 10:19 AM 06/14/2023 10:19 AM INSURANCE CLAIMS ADJUSTER DTL Comment:REVISED RESULTS Interpretation FINAL DIAGNOSIS Left femur mass, biopsy ([id number]; 05/13/2023): Metastatic melanoma, diffusely positive for BRAF [...] not hesitate to reach me by calling [facility] at [phone]. 06/14/2023 10:19 AM INSURANCE CLAIMS ADJUSTER DTL Varies 05/13/2023 1:26 AM CDT 06/05/2023 7:18 PM INSURANCE CLAIMS ADJUSTER Naida Mejia P.A.-C. MAnkit LAB SURG PATH ORDERABLES [facility] [address] [place] [address], [facility] DTL [address] [place] [address] from Last 3 Months Additional Health Concerns Infection Onset Date Last Indicated Protective Environment 06/04/2023 3 Advance Directives For more information, please contact: [phone] Latest Code Status on File Code Status Date Activated Date Inactivated Comments Full Code 08/09/2023 5:52 AM 08/09/2023 5:43 PM Question Answer Comments Full Code: Discussed Care Teams Night Assistant Relationship Specialty Start Date End Date Elsewhere, Pcp PCP - General Family Medicine 06/17/23
--- OUTSIDE RECORDS SUMMARY | 2023-08-09 19:20 | XMS_ITS | Referral Summary ---
Author Name Unknown Organization [facility] Address [address] [place] [id number] Care Team Providers Care Maintenance Machinist Name Role Phone Elsewhere, Pcp Primary Care Provider Unavailabl e Source Comments Patient records contain information from all sites at [facility]. For routine questions regarding patient records, call [phone] during business hours, M-F 8:00 AM - 5:00 PM Central Time. Record requests for emergency care only can be directed to [phone] at any time.[facility] Encounters Date Type Department Care Team Description 08/09/2023 Clinical Communication Department of Oncology in [place], [place] [address] [place] [phone] Anahy Amezcua R.N., O.C.N. 08/09/2023 Documentation Department of Oncology in [place], [place] [address] [place] [phone] Pérez Zuniga M.D., Ph.D. 08/09/2023 12:40 AM CIVIL PREPAREDNESS TRAINING OFFICER Ancillary Procedure Department of Radiology in [place], [place] [address] [place] [phone] Jose Cavanaugh APRN, C.N.P. Arrived 08/09/2023 12:21 AM CIVIL PREPAREDNESS TRAINING OFFICER - 08/09/2023 3:38 PM CIVIL PREPAREDNESS TRAINING OFFICER Hospital Encounter [facility], Tenth Floor [address] [place] [address] Jose Cavanaugh APRN, Harsha.N.P. Ciaran Reese M.D. Felicity Vargas M.D. Veda Sanchez M.B.B.S. Sepsis (HCC) (Primary Dx); Multiple Myeloma Not Having Achieved Remission (HCC) Discharge Disposition: Home or Self Care 08/09/2023 Hospital Encounter [facility] Bed Planning Felicity Vargas M.D. Ranganath, Nischal, M.D., Ph.D. 08/08/2023 Intake [facility] 08/08/2023 Clinical Communication Department of Oncology in [address] [phone] Cherelle Sanabria M.D. 08/06/2023 2:30 PM CIVIL PREPAREDNESS TRAINING OFFICER Clinical Communication Virtual Review in [address] [address] 08/04/2023 Specialty Pharmacy [facility] [address] [place] [address] [facility] R.Ph[facility] 07/29/2023 10:15 AM CIVIL PREPAREDNESS TRAINING OFFICER Telemedicine Department of Palliative Care in [address] [address] Valentine Kelsey M.D., M.S. Melanoma Trunk (HCC) (Primary Dx); Secondary Malignant Neoplasm Bone (HCC); Pain Cancer Associated; Palliative Care 07/26/2023 1:15 PM CIVIL PREPAREDNESS TRAINING OFFICER Telemedicine Department of Palliative Care in [address] [phone] Marija Olivas APRN, C.N.P., M.S.N. Meka Rinaldi D.N.P., R.N., [facility] Palliative Care 07/17/2023 12:10 AM CIVIL PREPAREDNESS TRAINING OFFICER Ancillary Procedure Department of Dermatology 07/17/2023 12:05 AM CIVIL PREPAREDNESS TRAINING OFFICER Ancillary Procedure Department of Dermatology 07/17/2023 12:45 PM CIVIL PREPAREDNESS TRAINING OFFICER Ancillary Procedure Department of Ophthalmology 07/17/2023 Ancillary Procedure Department of Ophthalmology 07/17/2023 11:45 AM CIVIL PREPAREDNESS TRAINING OFFICER Office Visit Department of Ophthalmology in [place], [place] [address] [place] [phone] Wolfgang Larose M.D. Hemorrhage Retinal Bilateral (Primary Dx); Melanoma Trunk (HCC) 07/17/2023 10:40 AM CIVIL PREPAREDNESS TRAINING OFFICER Ancillary Procedure Department of Ophthalmology in [place], [place] [address] [place] [phone] Phi Palm M.D., Ph.D. 07/17/2023 11:30 AM CIVIL PREPAREDNESS TRAINING OFFICER Ancillary Procedure Department of Ophthalmology in [place], [place] [address] [place] [phone] Phi Palm M.D., Ph.D. Hemorrhage Retinal Bilateral 07/17/2023 10:00 AM CIVIL PREPAREDNESS TRAINING OFFICER Procedure visit Department of Ophthalmology in [place], [place] [address] [place] [phone] Phi Palm M.D., Ph.D. Suleiman Vargas Hemorrhage Retinal Bilateral 07/17/2023 4:15 PM CIVIL PREPAREDNESS TRAINING OFFICER Comprehensive Visit Department of Dermatology in [place], [place] [address] [place] [phone] Naida Mejia P.A.-C., M.S. Anh Lee M.D. Nevi Multiple (Primary Dx); Melanoma Trunk (HCC); Secondary Malignant Neoplasm Bone (HCC); Screening Examination Skin Cancer; Dermatoheliosis; Tumor Skin Uncertain Behavior 07/16/2023 Clinical Communication Department of Palliative Care in [address] [phone] Meka Rinaldi D.N.P., R.N., [facility] 07/10/2023 Orders Only Department of Ophthalmology in [place], [place] [address] [place] [phone] Ani Bashir 07/05/2023 2:30 PM CIVIL PREPAREDNESS TRAINING OFFICER Comprehensive Visit Department of Ophthalmology in [place], [place] [address] [place] [phone] Wolfgang Larose M.D. Hemorrhage Retinal Bilateral (Primary Dx) 07/05/2023 Clinical Communication Department of Oncology in [place], [place] [address] [place] [address] Anahy Amezcua R.N., O.C.N. Sx - retinal hemorrhaging 07/04/2023 Clinical Communication Department of Ophthalmology in [place], [place] [address] [place] [address] Provider, Unknown 07/04/2023 Clinical Communication Department of Palliative Care in [place], [place] [address] [place] [phone] Inés Wiley R.N. 07/04/2023 10:30 AM CIVIL PREPAREDNESS TRAINING OFFICER Clinical Support Department of Palliative Care in [place], [place] [address] [place] [phone] Valentine Kelsey M.D., M.S. Inés Wiley RHaider. Melanoma Trunk (HCC); Nausea 07/04/2023 9:36 AM CIVIL PREPAREDNESS TRAINING OFFICER - 07/04/2023 11:59 PM CIVIL PREPAREDNESS TRAINING OFFICER Hospital Encounter Department of Laboratory Medicine and Pathology, [facility] in [place], [place] [address] [place] [address] Pérez Zuniga M.D., Ph.D. Melanoma Trunk (HCC); Secondary Malignant Neoplasm Bone (HCC); Other Care Home Current Drug Therapy Discharge Disposition: Home or Self Care 07/04/2023 12:20 PM CIVIL PREPAREDNESS TRAINING OFFICER Office Visit Department of Oncology in [place], [place] [address] [place] [address] Pérez Zuniga M.D., Ph.D. Melanoma Trunk (HCC) (Primary Dx); Nausea 07/01/2023 Clinical Communication [facility] [address] [place] [phone] Cherelle Brooks C.Ph.T. Redirect Prescriptions 07/01/2023 3:00 PM CIVIL PREPAREDNESS TRAINING OFFICER Telemedicine Department of Palliative Care in [place], [place] [address] [place] [phone] Valentine Kelsey M.D., M.S. Melanoma Trunk (HCC) (Primary Dx); Nausea; Pain Cancer Associated; Palliative Care 06/24/2023 Clinical Communication Department of Palliative Care in [address] [phone] Valentine Kelsey M.D., M.S. Rx Denial (XTAMPZA ER 9 MG CAPSULES) 06/21/2023 8:30 AM CIVIL PREPAREDNESS TRAINING OFFICER Comprehensive Visit Department of Palliative Care in [address] [phone] Pérez Zuniga M.D., Ph.D. Valentine Kelsey M.D., M.S. Rachelle Oliver R.Makenzie. Melanoma Trunk (HCC); Secondary Malignant Neoplasm Bone (HCC) 06/20/2023 3:00 PM CIVIL PREPAREDNESS TRAINING OFFICER Nurse Only Department of Oncology in [address] [phone] Laura Dalal M.D. Akosua Liz D.NAurelia, R.N. 06/20/2023 11:46 AM CIVIL PREPAREDNESS TRAINING OFFICER - 06/20/2023 12:06 PM CIVIL PREPAREDNESS TRAINING OFFICER Hospital Encounter Department of Laboratory Medicine and Pathology, [facility], in [address] [address] Pérez Zuniga M.D., Ph.D. Melanoma Trunk (HCC); Secondary Malignant Neoplasm Bone (HCC) Discharge Disposition: Home or Self Care 06/20/2023 12:07 PM CIVIL PREPAREDNESS TRAINING OFFICER - 06/20/2023 11:59 PM CIVIL PREPAREDNESS TRAINING OFFICER Hospital Encounter Department of Cardiovascular Diseases in [address] [address] Pérez Zuniga M.D., Ph.D. Melanoma Trunk (HCC); Secondary Malignant Neoplasm Bone (HCC); Other Hydraulic Specialist Current Drug Therapy Discharge Disposition: Home or Self Care 06/20/2023 4:40 PM CIVIL PREPAREDNESS TRAINING OFFICER Office Visit Department of Oncology in [address] [phone] Pérez Zuniga M.D., Ph.D. Melanoma Trunk (HCC) (Primary Dx); Secondary Malignant Neoplasm Bone (HCC); Other Care Home Current Drug Therapy 06/17/2023 7:00 AM CIVIL PREPAREDNESS TRAINING OFFICER Clinical Communication Virtual Review in [place], [place] [address] [place] [address] Pre-visit Intake 06/10/2023 Clinical Communication Department of Oncology in [place], [place] [address] [place] [place] [phone] Akosua Liz D.N.P., R.N. 06/05/2023 Clinical Communication [facility] [address] [place] [phone] Joanne Yoo C.Ph.T. Specialty Medication Delivery 06/05/2023 Specialty Pharmacy [facility] [place] [phone] Yessi Patel, Pharm.D., R.Ph. Melanoma Trunk (HCC) (Primary Dx) 06/05/2023 Specialty Pharmacy [facility] [address] [place] [phone] Yessi Patel, Pharm.D., R.Ph. 06/05/2023 Clinical Communication Department of Oncology in [place], [place] [address] [place] [phone] Anahy Amezcua R.N., O.C.N. 06/04/2023 4:40 PM CIVIL PREPAREDNESS TRAINING OFFICER Education Department of Oncology in [place], [place] [address] [place] [address] Pérez Zuniga M.D., Ph.D. Anahy Amezcua R.N., O.C.N. Melanoma Trunk (HCC); Secondary Malignant Neoplasm Bone (HCC) 06/04/2023 Orders Only [facility] [place] [phone] Joy Hernandez, Pharm.D., R.Ph. 06/04/2023 7:35 AM CIVIL PREPAREDNESS TRAINING OFFICER Ancillary Procedure Department of Radiology in [place], [place] [address] [place] [address] Pérez Zuniga M.D., Ph.D. Melanoma Trunk (HCC); Secondary Malignant Neoplasm Bone (HCC) 06/04/2023 7:35 AM CIVIL PREPAREDNESS TRAINING OFFICER Ancillary Procedure Department of Radiology in [place], [place] [address] [place] [phone] Pérez Zuniga M.D., Ph.D. Melanoma Trunk (HCC); Secondary Malignant Neoplasm Bone (HCC) 06/04/2023 2:20 PM CIVIL PREPAREDNESS TRAINING OFFICER Comprehensive Visit Department of Oncology in [address] [phone] Pérez Zuniga M.D., Ph.D. Melanoma Trunk (HCC) (Primary Dx); Secondary Malignant Neoplasm Bone (HCC); Other Hydraulic Specialist Current Drug Therapy 05/30/2023 1:00 PM CIVIL PREPAREDNESS TRAINING OFFICER Lab [facility] [address] [place] [phone] Naida Mejia P.A.-C., M.S. Melanoma Trunk (HCC); Secondary Malignant Neoplasm Bone (HCC) 05/29/2023 Clinical Communication Department of Oncology in [address] [address] Naida Mejia P.A.-Harsha., M.S. Pre-visit Testing Orders 05/29/2023 2:15 PM CIVIL PREPAREDNESS TRAINING OFFICER Admin Visit Department of Oncology in [address] [phone] 05/29/2023 5:21 PM CIVIL PREPAREDNESS TRAINING OFFICER - 05/29/2023 5:49 PM CIVIL PREPAREDNESS TRAINING OFFICER Hospital Encounter Department of Laboratory Medicine and Pathology, [facility] in [place], [place] [address] [place] [phone] Naida Mejia P.A.-C., M.S. Melanoma Trunk (HCC); Secondary Malignant Neoplasm Bone (HCC) Discharge Disposition: Home or Self Care 05/29/2023 5:50 PM CIVIL PREPAREDNESS TRAINING OFFICER - 05/29/2023 11:59 PM CIVIL PREPAREDNESS TRAINING OFFICER Hospital Encounter Department of Radiology, [facility] in [place], [place] [address] [place] [phone] Naida Mejia P.A.-C., M.S. Melanoma Trunk (HCC); Secondary Malignant Neoplasm Bone (HCC) Discharge Disposition: Home or Self Care 05/28/2023 Clinical Communication Department of Oncology in [place], [place] [address] [place] [address] Naida Mejia P.A.-C., M.S. Pre-visit Testing Orders (New Reg) 05/24/2023 7:55 AM CIVIL PREPAREDNESS TRAINING OFFICER Lab [facility] [address] [place] [phone] Naida Mejia P.A.-C., M.S. Melanoma Trunk (HCC); Secondary Malignant Neoplasm Bone (HCC) 05/23/2023 Clinical Communication Department of Oncology in [place], [place] [address] [place] [place] [phone] Naida Mejia P.A.-C., M.S. 05/23/2023 Clinical Communication Department of Oncology in [place], [place] [address] [place] [phone] Provider, Unknown [facility] (Med Onc) 05/22/2023 Clinical Communication Department of Oncology in [place], [place] [address] [place] [phone] Naida Mejia P.A.-C., M.S. 05/22/2023 Clinical Communication Department of Oncology in [address] [phone] Prescheduling, Provider Pre-visit Intake (NEW REG ) 05/13/2023 11:59 PM CDT Hospital Encounter Department of Radiology, [facility], in [place], [place] [address] [place] [phone] Lacho Joshi M.D. Canceled (Patient: Request) Discharge [...] = 0.6 oz pur e alcohol) Occasional [employer] Utilities Answer Date Recorded In the past 12 months has e [employer], gas, oil, or water [employer] threatened to shut off services in your [...] your living situation today? I have a [facility] place to live 07/10/2023 Sex and Gender Information Value Date Recorded Sex Assigned at Female 05/31/2023 8:26 AM CIVIL PREPAREDNESS TRAINING OFFICER Gender Identity Female 05/31/2023 8:26 AM CIVIL PREPAREDNESS TRAINING OFFICER Sexual Orientation Straight 05/31/2023 8: 26 AM CIVIL PREPAREDNESS TRAINING OFFICER Last Filed Vital Signs Vital Sign Reading Time Taken Comments Blood Pressure 97/61 08/09/2023 3:00 PM CIVIL PREPAREDNESS TRAINING OFFICER Pulse 96 08/09/2023 3:00 PM CIVIL PREPAREDNESS TRAINING OFFICER Temperature 36.9 ??C (98.5 ??F) 08/09/2023 3:00 PM CS T Respiratory Rate 18 08/09/2023 3:00 PM CIVIL PREPAREDNESS TRAINING OFFICER Oxygen Saturation 99% 08/09/2023 3:00 PM CIVIL PREPAREDNESS TRAINING OFFICER Inhaled Oxygen Concentration - - Weight 79.3 kg (174 lb 13.2 oz) 08/09/2023 7:30 AM CIVIL PREPAREDNESS TRAINING OFFICER Height 154.9 cm (5' 1) 08/09/2023 8:00 AM CIVIL PREPAREDNESS TRAINING OFFICER Body Mass Index 33.03 08/09/2023 7:30 AM CIVIL PREPAREDNESS TRAINING OFFICER Plan of Treatment Upcoming Encounters Date Type Department Care Team (Late st Contact Info) Description 08/19/2023 6:40 AM CIVIL PREPAREDNESS TRAINING OFFICER Appointment Department of Laboratory Medicine and Pathology, [facility], in [place], [place] [address] [place] [phone] Pérez Zuniga M.D., Ph.D. [address] [place] [phone] 08/19/2023 7:00 AM CIVIL PREPAREDNESS TRAINING OFFICER Ancillary Procedure Department of Cardiovascular Medicine in [place], [place] [address] [place] [place] [phone] Pérez Zuniga M.D., Ph.D. [address] [place] [phone] 08/19/2023 9:00 AM CIVIL PREPAREDNESS TRAINING OFFICER Appointment Department of Radiology, [facility], in [place], [place] [address] [place] [address] Pérez Zuniga M.D., Ph.D. [address] [place] [phone] 08/19/2023 3:40 PM CIVIL PREPAREDNESS TRAINING OFFICER Office Visit Department of Oncology in [place], [place] [address] [place] [phone] Zhane Granados, ACETYLENE OPERATOR, C.N.P. [address] [place] [phone] 08/21/2023 10:15 AM CIVIL PREPAREDNESS TRAINING OFFICER Clinical Support Department of Palliative Care in [place], [place] [address] [place] [phone] Serenity Kelsey, P.A.-C. [address] [place] [phone] Meka Rinaldi D.N.P., R.N., [facility] Procedures Procedure Name Priority Date/Time Associated Diagnosis Comments HEPATIC FUNCTION PANEL, S Timed 08/09/2023 12:22 PM CIVIL PREPAREDNESS TRAINING OFFICER US GALLBLADDER AND OR BILIARY DUCTS RAD - Semiurgent (Fast; most ED patients; some inpatients) 08/09/2023 2:44 AM CIVIL PREPAREDNESS TRAINING OFFICER INTERPRETATION OF OUTSIDE CT ABDOMEN AND OR PELVIS RAD - Semiurgent (Fast; most ED patients; some inpatients) 08/09/2023 2:14 AM CIVIL PREPAREDNESS TRAINING OFFICER ECG STAT 08/09/2023 12:49 AM CIVIL PREPAREDNESS TRAINING OFFICER VBG & LYTES CG8+, POCT, B STAT 08/09/2023 12:49 AM CIVIL PREPAREDNESS TRAINING OFFICER LACTATE FOR SEPSIS WITH REFLEX, POCT STAT 08/09/2023 12:49 AM CIVIL PREPAREDNESS TRAINING OFFICER LIPASE, S/P STAT 08/09/2023 12:49 AM CIVIL PREPAREDNESS TRAINING OFFICER HEPATIC FUNCTION PANEL, S STAT 08/09/2023 12:49 AM CIVIL PREPAREDNESS TRAINING OFFICER BASIC METABOLIC PANEL, S/P STAT 08/09/2023 12:49 AM CIVIL PREPAREDNESS TRAINING OFFICER CBC WITH DIFFERENTIAL, B STAT 08/09/2023 12:49 AM CIVIL PREPAREDNESS TRAINING OFFICER OUTSIDE CT BODY Routine 08/08/2023 6:45 PM CIVIL PREPAREDNESS TRAINING OFFICER OUTSIDE DX CHEST Routine 08/08/2023 6:10 PM CIVIL PREPAREDNESS TRAINING OFFICER DERMATOPATHOLOGY Routine 07/17/2023 4:41 PM CIVIL PREPAREDNESS TRAINING OFFICER 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) Screening Examination Skin Cancer Dermatoheliosis Nevi Multiple ANGIOGRAPHY - OU - BOTH EYES Routine 07/17/2023 12:55 PM CIVIL PREPAREDNESS TRAINING OFFICER Hemorrhage Retinal Bilateral OPHTHALMOLOGY IMAGE EXAM Routine 07/17/2023 12:45 PM CIVIL PREPAREDNESS TRAINING OFFICER FUNDUS PHOTOS - OU - BOTH EYES Routine 07/17/2023 11:52 AM CIVIL PREPAREDNESS TRAINING OFFICER Hemorrhage Retinal Bilateral DERMATOLOGY IMAGE EXAM Routine 4 12:10 AM CIVIL PREPAREDNESS TRAINING OFFICER DERMATOLOGY IMAGE EXAM Routine 4 12:05 AM CIVIL PREPAREDNESS TRAINING OFFICER OPHTHALMOLOGY IMAGE EXAM Routine 07/17/2023 12:00 AM CIVIL PREPAREDNESS TRAINING OFFICER ECG Routine 07/04/2023 10:08 AM CIVIL PREPAREDNESS TRAINING OFFICER 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) Other Hydraulic Specialist Current Drug Therapy CBC WITH DIFFERENTIAL, B Routine 07/04/2023 9:50 AM CIVIL PREPAREDNESS TRAINING OFFICER 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) Other Care Home Current Drug Therapy THYROID FUNCTION CASCADE, S Routine 07/04/2023 9:49 AM CIVIL PREPAREDNESS TRAINING OFFICER 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) Other Care Home Current Drug Therapy COMPREHENSIVE METABOLIC PANEL, S/P Routine 07/04/2023 9:49 AM CIVIL PREPAREDNESS TRAINING OFFICER 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) Other Care Home Current Drug Therapy (TTE) 2D ECHO DOPPLER COLOR Routine 06/20/2023 1:28 PM CIVIL PREPAREDNESS TRAINING OFFICER 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) Other Care Home Current Drug Therapy TYPE AND SCREEN Routine 06/20/2023 12:01 PM CIVIL PREPAREDNESS TRAINING OFFICER 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) THYROID FUNCTION CASCADE, S Routine 06/20/2023 12:01 PM CIVIL PREPAREDNESS TRAINING OFFICER 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) COMPREHENSIVE METABOLIC PANEL, S/P Routine 06/20/2023 12:01 PM CIVIL PREPAREDNESS TRAINING OFFICER 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) CBC WITH DIFFERENTIAL, B Routine 06/20/2023 12:01 PM CIVIL PREPAREDNESS TRAINING OFFICER 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) ECG Routine 06/04/2023 4:02 PM CIVIL PREPAREDNESS TRAINING OFFICER 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) INTERPRETATION OF OUTSIDE NM PET SCAN RAD - Routine (most inpatients and all outpatients) 06/04/2023 7:56 AM CIVIL PREPAREDNESS TRAINING OFFICER 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) INTERPRETATION OF OUTSIDE MR EXTREMITY RAD - Routine (most inpatients and all outpatients) 06/04/2023 7:54 AM CIVIL PREPAREDNESS TRAINING OFFICER 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) MR BRAIN WITHOUT AND WITH IV CONTRAST RAD - Routine (most inpatients and all outpatients) 05/29/2023 7:09 PM CIVIL PREPAREDNESS TRAINING OFFICER 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) SD T4 FREE Routine 05/29/2023 5:35 PM CIVIL PREPAREDNESS TRAINING OFFICER THYROPEROXIDASE (TPO) ABS, S Routine 05/29/2023 5:35 PM CIVIL PREPAREDNESS TRAINING OFFICER THYROID FUNCTION CASCADE, S Routine 05/29/2023 5:35 PM CIVIL PREPAREDNESS TRAINING OFFICER 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) LACTATE DEHYDROGENASE (LD), S Routine 05/29/2023 5:35 PM CIVIL PREPAREDNESS TRAINING OFFICER 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) COMPREHENSIVE METABOLIC PANEL, S/P Routine 05/29/2023 5:35 PM CIVIL PREPAREDNESS TRAINING OFFICER 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) CBC WITH DIFFERENTIAL, B Routine 05/29/2023 5:35 PM CIVIL PREPAREDNESS TRAINING OFFICER Melanoma Trunk (HCC) Secondary Malignant Neoplasm Bone [...] (ABNORMAL) Hepatic Function Panel (08/09/2023 12:22 PM CIVIL PREPAREDNESS TRAINING OFFICER) Only the most recent of2 resultswithin the time period is included. Bilirubin, Total, S 1.3(H) 0.0 - 1.2 mg/dL 08/09/2023 1:29 PM CIVIL PREPAREDNESS TRAINING OFFICER DTL Bilirubin, Direct, S 1.1(H) 0.0 - 0.3 mg/dL 08/09/2023 1:29 PM CIVIL PREPAREDNESS TRAINING OFFICER DTL Aspartate Aminotransferase (AST), S 154(H) 8 - 43 U/L 08/09/2023 1:29 PM CIVIL PREPAREDNESS TRAINING OFFICER DTL Alanine Aminotransferase (ALT), S 127(H) 7 - 45 U/L 08/09/2023 1:29 PM CIVIL PREPAREDNESS TRAINING OFFICER DTL Alkaline Phosphatase, S 396(H) 35 - 104 U/L 08/09/2023 1:29 PM CIVIL PREPAREDNESS TRAINING OFFICER DTL Albumin, S 3.5 3.5 - 5.0 g/dL 08/09/2023 1:29 PM CIVIL PREPAREDNESS TRAINING OFFICER DTL Protein, Total, S 6.2(L) 6.3 - 7.9 g/dL 08/09/2023 1:29 PM CIVIL PREPAREDNESS TRAINING OFFICER DTL Blood (Blood, Venous) 08/09/2023 12:22 PM CIVIL PREPAREDNESS TRAINING OFFICER 08/09/2023 1:14 PM CIVIL PREPAREDNESS TRAINING OFFICER Lesvia Ma APRN, C.N.P., M.S.N. LA B BLOOD ADD-ON [facility] [address] [place] [address], [facility] DTL [facility] [address] [place] [address] * US Gallbladder and or Biliary Ducts (08/09/2023 2:44 AM CIVIL PREPAREDNESS TRAINING OFFICER) Anatomical Region Laterality Modality Abdomen, Ultrasound RST LOS, Ultrasound ARZ LOS, Ultrasound FLA LOS N/A Ultrasound Impressions 08/09/2023 8:05 AM CIVIL PREPAREDNESS TRAINING OFFICER Cholelithiasis without evidence of acute cholecystitis. Narrative 08/09/2023 8:05 AM CIVIL PREPAREDNESS TRAINING OFFICER EXAM: US GALLBLADDER AND OR BILIARY DUCTS [...] cholecystitis. Jose Cavanaugh APRN, C.N.P. IMG US SD OCEDURES * Interpretation of Outside CT Abdomen and or Pelvis (08/09/2023 2:14 AM CIVIL PREPAREDNESS TRAINING OFFICER) Anatomical Region Laterality Modality Abdomen, Pelvis, Abdominal R ST LOS, Abdominal ARZ LOS, Abdominal FLA LOS, Other N/A Computed Tomography Impressions 08/09/2023 5:35 AM CIVIL PREPAREDNESS TRAINING OFFICER 1. ??No evidence of cholangitis. 2. There is a new 13 x 20 mm nodule in the right lower lobe (09/04). This lesion has an irregular, ground glass border and contains an air bronchogram. Infection and metastatic disease are in the differential. 3. Interval increased size in multiple partially treated bone metastases. Narrative 08/09/2023 5:35 AM CIVIL PREPAREDNESS TRAINING OFFICER EXAM: ??INTERPRETATION OF OUTSIDE CT ABDOMEN AND [...] bonemetastases. Jose Cavanaugh APRN, C.N.P. IMG CT SD OCEDURES * ECG 12 Lead (08/09/2023 12:49 AM CIVIL PREPAREDNESS TRAINING OFFICER) Only the most recent of3 resultswithin the time period is included. Ventricular Rate ECG/Min 66 BPM MUSE SD Interval 150 ms MUSE QRSD Interval 86 ms MUSE QT Interval 456 ms MUSE QTC Interval 478 ms MUSE P Ramer 52 degrees MUSE R Ramer 80 degrees MUSE T Wave Ramer 86 degrees MUSE 08/09/2023 12:4 9 AM CIVIL PREPAREDNESS TRAINING OFFICER 08/09/2023 12:51 AM CIVIL PREPAREDNESS TRAINING OFFICER Impressions MUSE - 08/09/2023 12:51 AM CIVIL PREPAREDNESS TRAINING OFFICER Normal sinus rhythm Low anterior forces Nonspecific [...] C.N.P. ECG ORDER DANIEL Performing Organization Address [facility] de Phone Number MUSE NA * Lactate for Sepsis with Reflex, POCT (08/09/2023 12:49 AM CIVIL PREPAREDNESS TRAINING OFFICER) Pathologist [facility] Lactate, POCT 1.33 0.50 - 2.20 mmol/L 08/09/2023 1:01 AM CIVIL PREPAREDNESS TRAINING OFFICER PCLX Blood (Blood, Venous) 08/09/2023 12:49 AM CIVIL PREPAREDNESS TRAINING OFFICER 08/09/2023 12:49 AM CIVIL PREPAREDNESS TRAINING OFFICER Jose Cavanaugh APRN, C.N.P. LAB POCT ORDERABLES - DEVICE Performing Organization Address City/[facility] Co de Phone Number POC [facility] [address] [place] [address], [facility] PCLX [facility] POC [address] [place] [address] * (ABNORMAL) Venous Blood Gas and Electrolytes CG8+, POCT (08/09/2023 12:49 AM CIVIL PREPAREDNESS TRAINING OFFICER) [facility] Sample Site, POCT Venstick 08/09/2023 1:01 AM CIVIL PREPAREDNESS TRAINING OFFICER PCLX Comment: ----ADDITIONAL INFORMATION---- Performed at the Point of Care pH, Venous, POCT, B 7.37 7.32 - 7.43 08/09/2023 1:01 AM CIVIL PREPAREDNESS TRAINING OFFICER PCSM Comment: ----ADDITIONAL INFORMATION---- Performed at the Point of Care pCO2, Venous, POCT, B 35(L) 41 - 51 mm Hg 08/09/2023 1:01 AM CIVIL PREPAREDNESS TRAINING OFFICER PCSM Comment: ----ADDITIONAL INFORMATION---- Performed at the Point of Care pO2, Venous, POCT, B 36 Not Applicable mm Hg 08/09/2023 1:01 AM CIVIL PREPAREDNESS TRAINING OFFICER PCSM Comment: ----ADDITIONAL INFORMATION---- Performed at the Point of Care Base Excess, Venous, POCT, B -5 Not Applicable mmol/L 08/09/2023 1:01 AM CIVIL PREPAREDNESS TRAINING OFFICER PCSM Comment: ----ADDITIONAL INFORMATION---- Performed at the Point of Care HCO3, Venous, POCT, B 20 Not Applicable mmol/L 08/09/2023 1:01 AM CIVIL PREPAREDNESS TRAINING OFFICER PCSM Comment: ----ADDITIONAL INFORMATION---- Performed at the Point of Care Sodium, POCT, B 136 135 - 145 mmol/L 08/09/2023 1:01 AM CIVIL PREPAREDNESS TRAINING OFFICER PCLX Comment: ----ADDITIONAL INFORMATION---- Performed at the Point of Care Potassium, POCT, B 3.3(L) 3.6 - 5.2 mmol/L 08/09/2023 1:01 AM CIVIL PREPAREDNESS TRAINING OFFICER PCLX Comment: ----ADDITIONAL INFORMATION---- Performed at the Point of Care Calcium, Ionized, POCT, B 4.60(L) 4.65 - 5.30 mg/dL 08/09/2023 1:01 AM CIVIL PREPAREDNESS TRAINING OFFICER PCLX Comment: ----ADDITIONAL INFORMATION---- Performed at the Point of Care Glucose, POCT, B 135 70 - 140 mg/dL 08/09/2023 1:01 AM CIVIL PREPAREDNESS TRAINING OFFICER PCLX Comment: ----ADDITIONAL INFORMATION---- Performed at the Point of Care Hematocrit, POCT, B 31.0(L) 35.5 - 44.9 % 08/09/2023 1:01 AM CIVIL PREPAREDNESS TRAINING OFFICER PCLX Comment: ----ADDITIONAL INFORMATION---- Performed at the Point of Care Blood (Blood, Venous) 08/09/2023 12:49 AM CIVIL PREPAREDNESS TRAINING OFFICER 08/09/2023 12:49 AM CIVIL PREPAREDNESS TRAINING OFFICER Jose Cavanaugh APRN, C.N.P. LAB POCT ORDERABLES - DEVICE POC [facility] [address] [place] [address], [facility] PCLX [facility] POC [address] [place] [address] PCSM [facility] POC [address] [place] [address] * (ABNORMAL) CBC with Differential, Blood (08/09/2023 12:49 AM CIVIL PREPAREDNESS TRAINING OFFICER) Only the most recent of4 resultswithin the time period is included. Hemoglobin 10.8(L) 11.6 - 15.0 g/dL 08/09/2023 1:00 AM CIVIL PREPAREDNESS TRAINING OFFICER STMA Hematocrit 32.0(L) 35.5 - 44.9 % 08/09/2023 1:00 AM CIVIL PREPAREDNESS TRAINING OFFICER STMA Erythrocytes 3.33(L) 3.92 - 5.13 x10(12)/L 08/09/2023 1:00 AM CIVIL PREPAREDNESS TRAINING OFFICER STMA MCV 96.1 78.2 - 97.9 fL 08/09/2023 1:00 AM CIVIL PREPAREDNESS TRAINING OFFICER STMA RBC Distrib Width 14.1 12.2 - 16.1 % 08/09/2023 1:00 AM CIVIL PREPAREDNESS TRAINING OFFICER STMA Platelet Count 226 157 - 371 x10(9)/L 08/09/2023 1:00 AM CIVIL PREPAREDNESS TRAINING OFFICER STMA Leukocytes 7.9 3.4 - 9.6 x10(9)/L 08/09/2023 1:00 AM CIVIL PREPAREDNESS TRAINING OFFICER STMA Neutrophils 6.54(H) 1.56 - 6.45 x10(9)/L 08/09/2023 1:00 AM CIVIL PREPAREDNESS TRAINING OFFICER DHPM Lymphocytes 1.14 0.95 - 3.07 x10(9)/L 08/09/2023 1:00 AM CIVIL PREPAREDNESS TRAINING OFFICER STMA Monocytes 0.14(L) 0.26 - 0.81 x10(9)/L 08/09/2023 1:00 AM CIVIL PREPAREDNESS TRAINING OFFICER STMA Eosinophils <0.03 0.03 - 0.48 x10(9)/L 08/09/2023 1:00 AM CIVIL PREPAREDNESS TRAINING OFFICER STMA Basophils 0.04 0.01 - 0.08 x10(9)/L 08/09/2023 1:00 AM CIVIL PREPAREDNESS TRAINING OFFICER STMA Blood (Blood, Venous) 08/09/2023 12:49 AM CIVIL PREPAREDNESS TRAINING OFFICER 08/09/2023 12:58 AM CIVIL PREPAREDNESS TRAINING OFFICER Jose Cavanaugh APRN, C.N.P. LAB BLOOD ADD-ON Performing Organization Address City/[facility]/ZIP Co de Phone Number [facility] [address] [place] [address], [facility] STMA [facility] [address] [place] [address] * (ABNORMAL) Lipase (08/09/2023 12:49 AM CIVIL PREPAREDNESS TRAINING OFFICER) Pathologist [facility] Lipase, S 79(H) 13 - 60 U/L 08/09/2023 1: 51 AM CIVIL PREPAREDNESS TRAINING OFFICER DTL Blood (Blood, Venous) 08/09/2023 12:49 AM CIVIL PREPAREDNESS TRAINING OFFICER 08/09/2023 1:20 AM CIVIL PREPAREDNESS TRAINING OFFICER Jose Cavanaugh APRN, C.N.P. LAB BLOOD ADD-ON [facility] [address] DTL [facility] 200 [place] [address] * (ABNORMAL) Basic Metabolic Panel (08/09/2023 12:49 AM CIVIL PREPAREDNESS TRAINING OFFICER) Potassium, P 3.3(L) 3.6 - 5.2 mmol/L 08/09/2023 1:44 AM CIVIL PREPAREDNESS TRAINING OFFICER DTL Sodium, P 137 135 - 145 mmol/L 08/09/2023 1:44 AM CIVIL PREPAREDNESS TRAINING OFFICER DTL Chloride, P 102 98 - 107 mmol/L 08/09/2023 1:44 AM CIVIL PREPAREDNESS TRAINING OFFICER DTL Bicarbonate, P 18(L) 22 - 29 mmol/L 08/09/2023 1:44 AM CIVIL PREPAREDNESS TRAINING OFFICER DTL Anion Gap, P 17(H) 7 - 15 08/09/2023 1:44 AM CIVIL PREPAREDNESS TRAINING OFFICER DTL BUN (Blood Urea Nitrogen), P 16 6 - 21 mg/dL 08/09/2023 1:44 AM CIVIL PREPAREDNESS TRAINING OFFICER DTL Creatinine 0.95 0.59 - 1.04 mg/dL 08/09/2023 1:44 AM CIVIL PREPAREDNESS TRAINING OFFICER DTL Estimated GFR (eGFR) 75 >=60 mL/min/BSA 08/09/2023 1:44 AM CIVIL PREPAREDNESS TRAINING OFFICER DTL Comment: Estimated GFR calculated using the 2020 CKD_EPI creatinine equation. Calcium, Total, P 8.6 8.6 - 10.0 mg/dL 08/09/2023 1:44 AM CIVIL PREPAREDNESS TRAINING OFFICER DTL Glucose, P 138 70 - 140 mg/dL 08/09/2023 1:44 AM CIVIL PREPAREDNESS TRAINING OFFICER DTL Blood (Blood, Venous) 08/09/2023 12:49 AM CIVIL PREPAREDNESS TRAINING OFFICER 08/09/2023 1:20 AM CIVIL PREPAREDNESS TRAINING OFFICER Jose Cavanaugh APRN, C.N.P. LAB BLOOD ADD-ON Performing Organization Address City/State/[facility] Co de Phone Number [facility] [address] [place] [address], [facility] [place] [address] [place] [address] * CT ABDOMEN PELVIS W CON-Outside CT Body (08/08/2023 6:45 PM CIVIL PREPAREDNESS TRAINING OFFICER) 08/08/2023 6:44 PM CIVIL PREPAREDNESS TRAINING OFFICER Narrative IIMS - 08/08/2023 9:23 PM CIVIL PREPAREDNESS TRAINING OFFICER This order has been created and auto-finalized [...] 1V PORTABLE-Outside Chest Xray (08/08/2023 6:10 PM CIVIL PREPAREDNESS TRAINING OFFICER) Only the most recent of2 resultswithin the time period is included. 08/08/2023 6:06 PM CIVIL PREPAREDNESS TRAINING OFFICER Narrative IIMS - 08/08/2023 9:19 PM CIVIL PREPAREDNESS TRAINING OFFICER This order has been created and auto-finalized to support the import of outside images. If available, original interpretation can be found on the Media Tab in Chart Review, in Document Viewer, or as an image in QREADS. If a re-interpretation or overread is required please follow defined workflow. ?? Provider Not In System IMG DIAGNOSTIC IM AGING PROCEDURES Performing Organization Address [facility] de Phone Number IIMS NA * Dermatopathology (07/17/2023 4:41 PM CIVIL PREPAREDNESS TRAINING OFFICER) 07/22/2023 6:51 AM CIVIL PREPAREDNESS TRAINING OFFICER PDRM Report electronically signed by Catalina Martell M.D. 07/22/2023 6:51 AM CIVIL PREPAREDNESS TRAINING OFFICER PDRM Gross Description Received in formalin labeled [...] A1. ??Grossed by AJD. 07/22/2023 6:51 AM CIVIL PREPAREDNESS TRAINING OFFICER PDRM Interpretation FINAL DIAGNOSIS A. ??Right Shoulder - Anterior, Skin punch biopsy: Lentiginous compound nevus COMMENT Clinical note and photos reviewed. Diagnosis was made via digital imaging. A portion of the testing process was performed at [facility] Cylex site [id number]. 07/22/2023 6:51 AM CIVIL PREPAREDNESS TRAINING OFFICER PDRM Skin (Right Shoulder - Anterior) 07/17/2023 4:40 PM CIVIL PREPAREDNESS TRAINING OFFICER Anh Lee M.D. LAB PATH DERM OR DERABLES Performing Organization Address [facility] Co de Phone Number [facility] 200 [place] [address], [facility] PDRM [address] [facility] 200 [place] [address] * Fluorescein Angiography - OU - Both Eyes (07/17/2023 12:55 PM CIVIL PREPAREDNESS TRAINING OFFICER) Narrative OPHTHALMOLOGY IMAGING EXAM - 07/17/2023 7:03 PM CIVIL PREPAREDNESS TRAINING OFFICER Right Eye Dye used is fluorescein. Fluorescein dose given is normal. Left Eye Dye used is fluorescein. Fluorescein dose given is normal. Notes Interpretation in note Phi Palm M.D., Ph.D. [facility] PHOTOGRDonnie PEÑA Performing Organization Address [facility] de Phone Number OPHTHALMOLOGY IMAGING EXAM * [employer]-Ophthalmology Image Exam (07/17/2023 12:45 PM CIVIL PREPAREDNESS TRAINING OFFICER) Only the most recent of2 resultswithin the time period is included. 07/17/2023 12:4 5 PM CIVIL PREPAREDNESS TRAINING OFFICER Narrative IIMS - 07/17/2023 1:03 PM CIVIL PREPAREDNESS TRAINING OFFICER This order has been created and auto-finalized to support the import of images acquired without order. The clinical documentation to support these images can be found on the encounter that produced images. Provider Not In System IMG NON RAD IMAGI NG PROCEDURES Performing Organization Address [facility] de Phone Number IIMS NA * Fundus Photos - OU - Both Eyes (07/17/2023 11:52 AM CIVIL PREPAREDNESS TRAINING OFFICER) Narrative OPHTHALMOLOGY IMAGING EXAM - 07/17/2023 7:03 PM CIVIL PREPAREDNESS TRAINING OFFICER Right Eye Field of view is standard view. Fundus photo type obtained is Color. Left Eye Field of view is standard view. Fundus photo type obtained is Color. Notes Interpretation in note Phi Palm M.D., Ph.D. [facility] PHOTOGRA MARIANA Performing Organization Address [facility] de Phone Number OPHTHALMOLOGY IMAGING EXAM * Shoulder Dermoscopy-Dermatology Image Exam (07/17/2023 12:10 AM CIVIL PREPAREDNESS TRAINING OFFICER) Only the most recent of2 resultswithin the time period is included. Narrative IIKY - 07/18/2023 7:21 AM CIVIL PREPAREDNESS TRAINING OFFICER This order has been created and auto-finalized to support the import of images acquired without order. The clinical documentation to support these images can be found on the encounter that produced images. Provider Not In System IMG NON RAD IMAGI NG PROCEDURES Performing Organization Address City/[facility]/ZIP Co de Phone Number [facility] NA * Thyroid Function Coleman (07/04/2023 9:49 AM CIVIL PREPAREDNESS TRAINING OFFICER) Only the most recent of3 resultswithin the time period is included. TSH, Sensitive 2.3 0.3 - 4.2 mIU/L 07/04/2023 11:05 AM CIVIL PREPAREDNESS TRAINING OFFICER DTL Blood (Blood, Venous) 07/04/2023 9:49 AM CIVIL PREPAREDNESS TRAINING OFFICER 07/04/2023 10:29 AM CIVIL PREPAREDNESS TRAINING OFFICER Pérez Zuniga M.D., Ph.D. LAB BLOO D ADD-ON Performing Organization Address City/[facility] Co [place] [address], [facility] [place] [address] * (ABNORMAL) Comprehensive Metabolic Panel (07/04/2023 9:49 AM CIVIL PREPAREDNESS TRAINING OFFICER) Only the most recent of3 resultswithin the time period is included. Potassium, S 4.7 3.6 - 5.2 mmol/L 07/04/2023 11:05 AM CIVIL PREPAREDNESS TRAINING OFFICER DTL Sodium, S 137 135 - 145 mmol/L 07/04/2023 11:05 AM CIVIL PREPAREDNESS TRAINING OFFICER DTL Chloride, S 103 98 - 107 mmol/L 07/04/2023 11:05 AM CIVIL PREPAREDNESS TRAINING OFFICER DTL Bicarbonate, S 24 22 - 29 mmol/L 07/04/2023 11:05 AM CIVIL PREPAREDNESS TRAINING OFFICER DTL Anion Gap 10 7 - 15 07/04/2023 11:05 AM CIVIL PREPAREDNESS TRAINING OFFICER DTL BUN (Blood Urea Nitrogen), S 22(H) 6 - 21 mg/dL 07/04/2023 11:05 AM CIVIL PREPAREDNESS TRAINING OFFICER DTL Creatinine 0.90 0.59 - 1.04 mg/dL 07/04/2023 11:05 AM CIVIL PREPAREDNESS TRAINING OFFICER DTL Estimated GFR (eGFR) 80 >=60 mL/min/BS A 07/04/2023 11:05 AM CIVIL PREPAREDNESS TRAINING OFFICER DTL Comment: Estimated GFR calculated using the 2020 CKD_EPI creatinine equation. Calcium, Total, S 9.9 8.6 - 10.0 mg/dL 07/04/2023 11:05 AM CIVIL PREPAREDNESS TRAINING OFFICER DTL Glucose, S 98 70 - 140 mg/dL 07/04/2023 11:05 AM CIVIL PREPAREDNESS TRAINING OFFICER DTL Protein, Total, S 7.7 6.3 - 7.9 g/dL 07/04/2023 11:05 AM CIVIL PREPAREDNESS TRAINING OFFICER DTL Albumin, S 4.3 3.5 - 5.0 g/dL 07/04/2023 11:05 AM CIVIL PREPAREDNESS TRAINING OFFICER DTL Aspartate Aminotransferase (AST), S 26 8 - 43 U/L 07/04/2023 11:05 AM CIVIL PREPAREDNESS TRAINING OFFICER DTL Alkaline Phosphatase, S 229(H) 35 - 104 U/L 07/04/2023 11:05 AM CIVIL PREPAREDNESS TRAINING OFFICER DTL Alanine Aminotransferase (ALT), S 24 7 - 45 U/L 07/04/2023 11:05 AM CIVIL PREPAREDNESS TRAINING OFFICER DTL Bilirubin, Total, S 0.2 0.0 - 1.2 mg/dL 07/04/2023 11:05 AM CIVIL PREPAREDNESS TRAINING OFFICER DTL Blood (Blood, Venous) 07/04/2023 9:49 AM CIVIL PREPAREDNESS TRAINING OFFICER 07/04/2023 10:29 AM CIVIL PREPAREDNESS TRAINING OFFICER Pérez Zuniga M.D., Ph.D. LAB BLOO D ADD-ON [facility] [address] [place] [address], [facility] [place] [address] [place] [address] * (TTE) 2D ECHO DOPPLER COLOR (06/20/2023 1:28 PM CIVIL PREPAREDNESS TRAINING OFFICER) Ejection Fraction 65 MC CV EIMS Mid-Ascending [...] Laterality Modality Other 06/20/2023 12:3 4 PM CIVIL PREPAREDNESS TRAINING OFFICER Impressions 06/20/2023 1:42 PM CIVIL PREPAREDNESS TRAINING OFFICER There are no previous [facility] echocardiograms available for comparison. LEFT VENTRICLE:Normal [...] the Order-Level Documents. Narrative 06/20/2023 1:42 PM CIVIL PREPAREDNESS TRAINING OFFICER For the complete report, see the Order-Level [...] pericardial effusion. Findings There are no previous [facility] echocardiograms available forcomparison. LEFT VENTRICLE:Normal left [...] (with Reflex Antibody ID) (06/20/2023 12:01 PM CIVIL PREPAREDNESS TRAINING OFFICER) ABORh O Neg Not applicable 06/20/2023 1:48 PM CIVIL PREPAREDNESS TRAINING OFFICER ETRM Antibody Screen Negative Negative 06/20/2023 2:00 PM CIVIL PREPAREDNESS TRAINING OFFICER ETRM Type & Screen Expiration 06/23/2023 23:59 06/20/2023 1:48 PM CIVIL PREPAREDNESS TRAINING OFFICER ETRM Testing Location [place] DEFAULT 06/20/2023 12:53 PM CIVIL PREPAREDNESS TRAINING OFFICER ETRM Blood (Blood, Venous) 06/20/2023 12:01 PM CIVIL PREPAREDNESS TRAINING OFFICER 06/20/2023 12:53 PM CIVIL PREPAREDNESS TRAINING OFFICER Pérez Zuniga M.D., Ph.D. LAB BLOO D BANK TEST ORDERABLES [facility] [address] [place] [address], [place] ETRM [facility] [place] [address] [place] [address] * Interpretation of Outside NM PET Scan (06/04/2023 7:56 AM CIVIL PREPAREDNESS TRAINING OFFICER) Anatomical Region Laterality Modality Nuclear Medicine PET RST LOS , Nuclear Medicine ARZ LOS, Nuclear Medicine FLA LOS, Nuclear Medicine, Other, Neuroradiology ARZ LOS, Neuroradiology FLA LOS, Neuroradiology RST LOS, Body N/A Nuclear Medicine 06/10/2023 8:28 AM CIVIL PREPAREDNESS TRAINING OFFICER Impressions 06/10/2023 10:24 AM CIVIL PREPAREDNESS TRAINING OFFICER 1. Large intensely hypermetabolic mixed solid and [...] of the report. Narrative 06/10/2023 10:24 AM CIVIL PREPAREDNESS TRAINING OFFICER EXAM: ??INTERPRETATION OF OUTSIDE NM PET SCAN [...] of Outside MR Extremity (06/04/2023 7:54 AM CIVIL PREPAREDNESS TRAINING OFFICER) Anatomical Region Laterality Modality Musculoskeletal RST LOS, Mus culoskeletal ARZ LOS, Muskuloskeletal FLA LOS, Musculoskeletal, Other N/A Magnet ic Resonance 06/04/2023 11:3 3 AM CIVIL PREPAREDNESS TRAINING OFFICER Impressions 06/04/2023 11:45 AM CIVIL PREPAREDNESS TRAINING OFFICER There are several 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 The largest is seen proximally extending off of the proximal daubx-jk-tbce. This involves the intertrochanteric left femur extending [...] diaphysis, which extends off of the proximal akppk-ts-dhet (series 3 and 4 image 15). The lesions right around the knee were not present on the MRI from October 2014 and correlate with areas of hypermetabolic activity on the recent PET CT. Findings are compatible with recent biopsy results of metastatic melanoma. Large gtloz-gg-ivpg coronal and axial images include the right femur, which demonstrates numerous large intramedullary lesions throughout the right femoral diaphysis as well as the proximal right tibial diaphysis, as well. No definite discrete soft tissue masses within either thigh. Narrative 06/04/2023 11:45 AM CIVIL PREPAREDNESS TRAINING OFFICER EXAM: ??INTERPRETATION OF OUTSIDE MR LEFT FEMUR [...] is seen proximally extending off of the ziwonooyhvlng-gd-lvcz. This involves the intertrochanteric left femur extendingdistally [...] tibial diaphysis, which extends offof the proximal lxyib-rk-fjfg (series 3 and 4 image 15). The lesions right around the knee were not present on the MRIfrom October 2014 and correlate with areas of hypermetabolic activity on therecent PET CT. Findings are compatible with recent biopsy results ofmetastatic melanoma. Large mdrsw-lq-lizk coronal and axial images include the right femur, whichdemonstrates numerous large intramedullary lesions throughout the rightfemoral diaphysis as well as the proximal right tibial diaphysis, as well.No definite discrete soft tissue masses within either thigh. Pérez Zuniga M.D., Ph.D. IMG MRI PROCEDURES * MR Brain without and with IV Contrast (05/29/2023 7:09 PM CIVIL PREPAREDNESS TRAINING OFFICER) Anatomical Region Laterality Modality Head, Brain, Neuroradiology RST LOS, Neuroradiology ARZ LOS, Neuroradiology FLA LOS N/A Magnetic Resonance 05/30/2023 10:1 9 AM CIVIL PREPAREDNESS TRAINING OFFICER Impressions 05/30/2023 10:38 AM CIVIL PREPAREDNESS TRAINING OFFICER Multifocal subcentimeter intracranial metastases. No significant associated mass effect or hydrocephalus. Narrative 05/30/2023 10:38 AM CIVIL PREPAREDNESS TRAINING OFFICER EXAM: MR BRAIN WITHOUT AND WITH IV [...] venous anomaly. Procedure Note Antonio Wood M.D., [facility] - 05/30/2023 EXAM: MR BRAIN WITHOUT AND [...] T4 (Thyroxine), Free, Serum (05/29/2023 5:35 PM CIVIL PREPAREDNESS TRAINING OFFICER) T4 (Thyroxine), Free, S 1.0 0.9 - 1.7 ng/dL 05/29/2023 7:06 PM CIVIL PREPAREDNESS TRAINING OFFICER DTL Blood 05/29/2023 5:35 PM CIVIL PREPAREDNESS TRAINING OFFICER 05/29/2023 6:09 PM CIVIL PREPAREDNESS TRAINING OFFICER Narrative Authorizing Provider Result Krish Mejia P.A.-C., M.S. LAB BLOO D ADD-ON [facility] [address] [place] [address], [facility] [place] [address] [place] [address] * Thyroperoxidase (TPO) Antibodies (05/29/2023 5:35 PM CIVIL PREPAREDNESS TRAINING OFFICER) Thyroperoxidase Ab, S 15.1 <34.0 IU/mL 05/29/2023 7:06 PM CIVIL PREPAREDNESS TRAINING OFFICER DTL Blood 05/29/2023 5:35 PM CIVIL PREPAREDNESS TRAINING OFFICER 05/29/2023 6:09 PM CIVIL PREPAREDNESS TRAINING OFFICER Naida Mejia P.A.-C., M.S. LAB BLOO D ADD-ON Performing Organization Address [facility] [place] [address] * (ABNORMAL) LD (Lactate Dehydrogenase) (05/29/2023 5:35 PM CIVIL PREPAREDNESS TRAINING OFFICER) Lactate Dehydrogenase (LD), S 439(H) 122 - 222 U/L 05/29/2023 6:46 PM CIVIL PREPAREDNESS TRAINING OFFICER DTL Blood (Blood, Venous) 05/29/2023 5:35 PM CIVIL PREPAREDNESS TRAINING OFFICER 05/29/2023 6:09 PM CIVIL PREPAREDNESS TRAINING OFFICER Naida Mejia P.A.-C., M.S. LAB BLOO D NON ADD-ON Performing Organization Address [facility] [place] [address] * PET [facility]_PET_CAP_C (Adult)-Outside NM Pet (05/15/2023 11:00 AM CDT) Narrative IIKY - 05/27/2023 12:26 PM CIVIL PREPAREDNESS TRAINING OFFICER This order has been created and auto-finalized to support the import of outside images. If available, original interpretation can be found on the Media Tab in Chart Review, in Document Viewer, or as an image in QREADS. If a re-interpretation or overread is required please follow defined workflow. ?? 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 06/24/2023 1:13 PM CIVIL PREPAREDNESS TRAINING OFFICER DTL Additional Information CLINICAL TRIALS Possible clinical trials of benefit for this patient can be found at the following sites: 1) ClinicalTrials.gov: www.clinicaltrials. gov/ct2/search/adva nced 2) [facility]: www.[facility]/resear ch/clinical-trials/ 3) National Cancer [place]: www.cancer.gov/clin icaltrials/search REFERENCE TRANSCRIPT Sequence variant nomenclature is based on the following RefSeq accession number (build GRCh37 (hg19)):BRAF [id number]. 06/24/2023 1:13 PM CIVIL PREPAREDNESS TRAINING OFFICER DTL Specimen Tissue, Tumor 06/24/2023 1:13 PM CIVIL PREPAREDNESS TRAINING OFFICER DTL Tissue ID [id number] 06/24/2023 1:13 PM CIVIL PREPAREDNESS TRAINING OFFICER DTL Method Microscopic examination is performed by [...] and additional information on this test, see [email or web address] (Test ID [id number]). 06/24/2023 1:13 PM CIVIL PREPAREDNESS TRAINING OFFICER DTL Disclaimer This test cannot differentiate between [...] of heterozygosity) and sequencing artifact/misalignme nt [PMID: [id number], PMID: [id number]]. Rare polymorphisms may be present that could [...] developed and its performance characteristics determined by [facility] in a manner consistent with CLIA requirements. This test has not been cleared or approved by the U.S. Food and Drug Administration. 06/24/2023 1:13 PM CIVIL PREPAREDNESS TRAINING OFFICER DTL Released By Lexy Lang M.D. 06/24/2023 1:13 PM CIVIL PREPAREDNESS TRAINING OFFICER DTL Interpretation BRAF c.1799T>A (p.V600E) (Exon 15) BRAF encodes the signaling protein Braf, which is downstream of Eduardo and activates the MAPK pathway. Braf signaling is critically involved in the processes of cell division and differentiation. BRAF activating mutations occur predominantly at a single location (V600E). BRAF activating mutations or amplification have been reported to result in uncontrolled cell growth and tumorigenesis [PMID:[id number], PMID:[id number]]. Clinically approved targeted therapy is available for patients with unresectable or metastatic solid tumors with a BRAF V600E mutation [fda.gov/drugs]. 06/24/2023 1:13 PM CIVIL PREPAREDNESS TRAINING OFFICER DTL Tissue (Bone) 05/13/2023 8:2 7 AM CDT 06/16/2023 1:57 PM CIVIL PREPAREDNESS TRAINING OFFICER Naida Mejia P.A.-C., M.S. LAB GENE TIC TESTING [facility] [employer] - [facility] [address] [place] [address], [facility] DTL [address] [place] [address] * Pathology Review of Outside Material (05/13/2023 1:26 AM CDT) 06/10/2023 3:51 PM CIVIL PREPAREDNESS TRAINING OFFICER DTL Participated in the Interpretation Yann Dixon M.D.-Pathology Fellow 06/10/2023 3:51 PM CIVIL PREPAREDNESS TRAINING OFFICER DTL Report electronically signed by Jose Willis M.D. I verify that I have examined all relevant slides/materials for the specimen(s) and rendered or confirmed the diagnosis. 06/10/2023 3:51 PM CIVIL PREPAREDNESS TRAINING OFFICER DTL Material Received A. [id number]: Left femur ? 22 stained slides, 20 unstained slides 06/10/2023 3:51 PM CIVIL PREPAREDNESS TRAINING OFFICER DTL Addendum Genetic testing for BRAF/KIT Mutation Analysis, Tumor (BRFKT) ??will be performed and resulted in the patient's medical record. Signed by Cl Edwards M.D. 06/14/2023 10:19 AM 06/14/2023 10:19 AM CIVIL PREPAREDNESS TRAINING OFFICER DTL Comment:REVISED RESULTS Interpretation FINAL DIAGNOSIS Left femur mass, biopsy ([id number]; 05/13/2023): Metastatic melanoma, diffusely positive for BRAF [...] not hesitate to reach me by calling [facility] at [phone]. 06/14/2023 10:19 AM CIVIL PREPAREDNESS TRAINING OFFICER DTL Varies 05/13/2023 1:26 AM CDT 06/05/2023 7:18 PM CIVIL PREPAREDNESS TRAINING OFFICER Naida Mejia P.A.-C. 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
--- OUTSIDE RECORDS SUMMARY | 2023-08-09 19:20 | XMS_ITS ---
Author Name Unknown Organization [facility] Address [address] [place] [address] Care Team Providers Care Cabinet Professional Name Role Phone Unavailable Unavailable Unavailable Surgery Details Not on file Complications Check Surgery Details section. Procedure Estimated Blood Loss Check Surgery Details section. Procedure Findings Check Surgery Details section. Procedure Specimens Taken Check Surgery Details section.
--- OUTSIDE RECORDS SUMMARY | 2023-08-09 19:21 | XMS_ITS | Encounter Summary ---
Author Name Unknown Organization [facility] Address [address] [place] [address] Care Team Providers Care Reconsignment Clerk Name Role Phone Elsewhere, Pcp Primary Care [...] your living situation today? I have a [facility] place to live 07/10/2023 Sex and Gender Information Value Date Recorded Sex Assigned at Female 05/31/2023 8:26 AM CHAIN HOIST OPERATOR Gender Identity Female 05/31/2023 8:26 AM CHAIN HOIST OPERATOR Sexual Orientation Straight 05/31/2023 8: 26 AM CHAIN HOIST OPERATOR documented as of this encounter Plan of Treatment Upcoming Encounters Date Type Department Care Team (Late st Contact Info) Description 08/19/2023 6:40 AM CHAIN HOIST OPERATOR Appointment Department of Laboratory Medicine and Pathology, [facility] in [place], [place] [address] [place] [phone] Pérez Zuniga M.D., Ph.D. [address] [place] [phone] 08/19/2023 7:00 AM CHAIN HOIST OPERATOR Ancillary Procedure Department of Cardiovascular Medicine in [place], [place] [address] [place] [address] Pérez Zuniga M.D., Ph.D. [address] [place] [phone] 08/19/2023 9:00 AM CHAIN HOIST OPERATOR Appointment Department of Radiology, [facility] in [place], [place] [address] [place] [address] Pérez Zuniga M.D., Ph.D. [address] [place] [phone] 08/19/2023 3:40 PM CHAIN HOIST OPERATOR Office Visit Department of Oncology in [place], [place] [address] [place] [phone] Zhane Granados APRN, C.N.P. [address] [place] [phone] 08/21/2023 10:15 AM CHAIN HOIST OPERATOR Clinical Support Department of Palliative Care in [place], [place] [address] [place] [phone] Serenity Kelsey, P.A.-C. [address] [place] [phone] Meka Rinaldi D.N.P., R.N., [facility] documented as of this encounter Visit Diagnoses Not on filedocumented in this encounter Additional Health Concerns Infection Onset Date Last Indicated Resolved Time Protective Environment 06/04/2023 06/04/2023 documented as of this encounter Care Teams Reconsignment Clerk Relationship Specialty Start Date End Date Elsewhere, Pcp PCP - General Family Medicine 06/17/23 documented as of this encounter
--- OUTSIDE RECORDS SUMMARY | 2023-08-09 19:21 | XMS_ITS | Encounter Summary ---
Author Name Unknown Organization [facility] Address [address] [place] [address] Care Team Providers Care Fur Weigher Name Role Phone Elsewhere, Pcp Primary Care Provider Unavailabl e Encounter Details Date Type Department Care Team (Late st Contact Info) Description 08/09/2023 Documentation Department of Oncology in [place], [place] [address] [place] [phone] Pérez Zuniga M.D., Ph.D. [address] [place] [phone] Social History Tobacco Use Types Packs/Day Years [...] your living situation today? I have a [facility] place to live 07/10/2023 Sex and Gender Information Value Date Recorded Sex Assigned at Female 05/31/2023 8:26 AM TANYARD WORKER Gender Identity Female 05/31/2023 8:26 AM TANYARD WORKER Sexual Orientation Straight 05/31/2023 8: 26 AM TANYARD WORKER documented as of this encounter Progress Notes [...] patient should be OK to dismiss today. ARD WORKER documented in this encounter Plan of Treatment Upcoming Encounters Date Type Department Care Team (Late st Contact Info) Description 08/19/2023 6:40 AM TANYARD WORKER Appointment Department of Laboratory Medicine and Pathology, [facility] in [address] [phone] Pérez Zuniga M.D., Ph.D. [address] [place] [phone] 08/19/2023 7:00 AM TANYARD WORKER Ancillary Procedure Department of Cardiovascular Medicine in [address] [phone] Pérez Zuniga M.D., Ph.D. [address] [place] [phone] 08/19/2023 9:00 AM TANYARD WORKER Appointment Department of Radiology, [facility] in [address] [phone] Pérez Zuniga M.D., Ph.D. [address] [place] [phone] 08/19/2023 3:40 PM TANYARD WORKER Office Visit Department of Oncology in [address] [phone] Zhane Garnados APRN, C.N.P. [address] [place] [phone] 08/21/2023 10:15 AM TANYARD WORKER Clinical Support Department of Palliative Care in [place], [place] [address] [place] [phone] Serenity Kelsey P.A.-C. [address] [place] [phone] Meka Rinaldi D.N.Dina., R.N., [facility] documented as of this encounter Visit Diagnoses Not on filedocumented in this encounter Additional Health Concerns Infection Onset Date Last Indicated Resolved Time Protective Environment 06/04/2023 06/04/2023 documented as of this encounter Care Teams Fur Weigher Relationship Specialty Start Date End Date Elsewhere, Pcp PCP - General Family Medicine 06/17/23 documented as of this encounter
--- OUTSIDE RECORDS SUMMARY | 2023-08-09 19:21 | XMS_ITS | Encounter Summary ---
Author Name Unknown Organization [facility] Address [address] [place] [address] Care Team Providers Care Block Paver Name Role Phone Elsewhere, Pcp Primary Care Provider Unavailabl e Reason for Visit * Auth/Cert (Routine) Specialty Diagnoses / Procedures Referred By Contac t Referred To Contact Diagnoses Sepsis (HCC) Multiple Myeloma Not Having Achieved Remission (HCC) Fever, syncopal Procedures ADMIT TO INPATIENT Referral ID Status Reason Start Date Expiration Date Visits Re quested Visits Authorized [id number] 1 1 Encounter Details Date Type Department Care Team (Late st Contact Info) Description 08/09/2023 Hospital Encounter [facility] Bed Planning Felicity Vargas M.D. [address] [place] [phone] Jhonathan Gray M.D., Ph.D. [address] [place] [phone] Social History Tobacco Use Types Packs/Day Years Used Date Smoking Tobacco: Never Passive Smoke Exposure: Never Smokeless Tobacco: Never Alcohol Use Standard Drinks/Week Comments Not Currently 6 (1 standard drink = 0.6 oz pur e alcohol) Occasional [facility] Utilities Answer Date Recorded In the past 12 months has e [employer], gas, oil, or water company threatened to [...] your living situation today? I have a [facility] place to live 07/10/2023 Sex and Gender Information Value Date Recorded Sex Assigned at Female 05/31/2023 8:26 AM SPIRITUAL COUNSELOR Gender Identity Female 05/31/2023 8:26 AM SPIRITUAL COUNSELOR Sexual Orientation Straight 05/31/2023 8: 26 AM SPIRITUAL COUNSELOR documented as of this encounter Plan of Treatment Upcoming Encounters Date Type Department Care Team (Late st Contact Info) Description 08/19/2023 6:40 AM SPIRITUAL COUNSELOR Appointment Department of Laboratory Medicine and Pathology, [facility] in [place], [place] [address] [place] [address] Pérez Zuniga M.D., Ph.D. [address] [place] [phone] 08/19/2023 7:00 AM SPIRITUAL COUNSELOR Ancillary Procedure Department of Cardiovascular Medicine in [place], [place] [address] [place] [address] Pérez Zuniga M.D., Ph.D. [address] [place] [phone] 08/19/2023 9:00 AM SPIRITUAL COUNSELOR Appointment Department of Radiology, [facility] in [place], [place] [address] [place] [address] Pérez Zuniga M.D., Ph.D. [address] [place] [phone] 08/19/2023 3:40 PM SPIRITUAL COUNSELOR Office Visit Department of Oncology in [place], [place] [address] [place] [phone] Zhane Granados, CHILD CARE WORKER, C.N.P. [address] [place] [phone] 08/21/2023 10:15 AM SPIRITUAL COUNSELOR Clinical Support Department of Palliative Care in [place], [place] [address] [place] [phone] Serenity Kelsey, P.A.-C. [address] [place] [phone] Meka Rinaldi D.N.P., R.N., [facility] documented as of this encounter Visit Diagnoses Not on filedocumented in this encounter Admitting Diagnoses Diagnosis Sepsis (HCC) documented in this encounter Additional Health Concerns Infection Onset Date Last Indicated Resolved Time Protective Environment 06/04/2023 06/04/2023 documented as of this encounter Care Teams Block Paver Relationship Specialty Start Date End Date Elsewhere, Pcp PCP - General Family Medicine 06/17/23 documented as of this encounter
--- OUTSIDE RECORDS SUMMARY | 2023-08-09 19:21 | XMS_ITS | Encounter Summary ---
Author Name Unknown Organization [facility] Address [address] [place] [address] Care Team Providers Care Technical Specialist Cytology Name Role Phone Elsewhere, Pcp Primary Care Provider Unavailabl e Reason for Visit * Reason Comments Syncope Hypotension * Auth/Cert (Routine) Specialty Diagnoses / Procedures Referred By Contsweetie t Referred To Contact Diagnoses Sepsis (HCC) Multiple Myeloma Not Having Achieved Remission (HCC) Fever, syncopal Procedures ADMIT TO INPATIENT Referral ID Status Reason Start Date Expiration Date Visits Re quested Visits Authorized [id number] 1 1 Encounter Details Date Type Department Care Team (Late st Contact Info) Description 08/09/2023 12:21 AM MEASUREMENT AND SENSING TECHNICIAN - 08/09/2023 3:38 PM MEASUREMENT AND SENSING TECHNICIAN Hospital Encounter [facility], Tenth Floor [address] [place] [phone] Jose Cavanaugh, GAIL, C.N.P. [address] [place] [address] [phone] Ciaran Reese M.D. [address] [place] [address] [phone] Felicity Vargas M.D. [address] [place] [address] [phone] Veda Sanchez M.B.BSantoshS. [address] [place] [address] Sepsis (HCC) (Primary Dx); Multiple Myeloma Not Having Achieved Remission (HCC) Discharge Disposition: Home or Self Care Social History Tobacco Use Types Packs/Day Years Used Date Smoking Tobacco: Never Passive Smoke Exposure: Never Smokeless Tobacco: Never Alcohol Use Standard Drinks/Week Comments Not Currently 6 (1 standard drink = 0.6 oz pur e alcohol) Occasional [facility] Utilities Answer Date Recorded In [...] Sex Assigned at Female 05/31/2023 8:26 AM MEASUREMENT AND SENSING TECHNICIAN Gender Identity Female 05/31/2023 8:26 AM MEASUREMENT AND SENSING TECHNICIAN Sexual Orientation Straight 05/31/2023 8: 26 AM MEASUREMENT AND SENSING TECHNICIAN documented as of this encounter Last Filed Vital Signs Vital Sign Reading Time Taken Comments Blood Pressure 97/61 08/09/2023 3:00 PM MEASUREMENT AND SENSING TECHNICIAN Pulse 96 08/09/2023 3:00 PM MEASUREMENT AND SENSING TECHNICIAN Temperature 36.9 ??C (98.5 ??F) 08/09/2023 3:00 PM CS T Respiratory Rate 18 08/09/2023 3:00 PM MEASUREMENT AND SENSING TECHNICIAN Oxygen Saturation 99% 08/09/2023 3:00 PM MEASUREMENT AND SENSING TECHNICIAN Inhaled Oxygen Concentration - - Weight 79.3 kg (174 lb 13.2 oz) 08/09/2023 7:30 AM MEASUREMENT AND SENSING TECHNICIAN Height 154.9 cm (5' 1) 08/09/2023 8:00 AM MEASUREMENT AND SENSING TECHNICIAN Body Mass Index 33.03 08/09/2023 7:30 AM MEASUREMENT AND SENSING TECHNICIAN documented in this encounter Discharge Summaries * Emely Beavers M.D. 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 [place] was [place], zosyn, and stress dose steroids. Upon arrival to [facility] ED, she received an additional 1L crystalloid [...] oncologist on Saturday (08/12) 3) PCP at [place] to follow up blood culture results - please call your PCP on Saturday (08/12) to obtain results of blood culture Emely Beavers MD [facility] PGY-3 UREMENT AND SENSING TECHNICIAN * Emely Beavers M.D. - 08/09/2023 6:24 AM CST 10-3 ICU Transfer Note SUBJECTIVE Interval Events: Admitted overnight for sepsis - syncopal episode resulting in presentation to OSH. 2L crystalloid and started on zosyn. Additional 1L crystalloid at [facility] ED with initiation of norepiephrine up to [...] Transfer to floor today Emely Beavers MD [facility] PGY-3 UREMENT AND SENSING TECHNICIAN documented in this encounter Medications at Time [...] female who was admitted on 08/09/2023 to [id number] for managementof suspected septic shock secondary to [...] Juani Morfin, Joleen.Brie, R.Ph. Clinical Pharmacist Pager [phone] UREMENT AND SENSING TECHNICIAN documented in this encounter H&P Notes * [...] intended to be a direct transfer from [place] Ed to oncology, but en route had low MAPs so was diverted to [facility] ER instead. Tony had presented first to [...] blood cultures, antimicrobials and COVID/ Influenza at [place]. Received 2 L ofIVF there too She arrived to our ED with BP of 84/58 and received 1 L of fluids. Also received zosyn. She was on norepi up to 0.1 down in [facility] ED. Lactate of 1.3. Tony has known metastatic melanoma with mets to bone and brain, and on dabrafenib + trametinib diagnosed in 05/06 incidentally and has been having caner related pains. She also takes dexamethasone 1mg BID. 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 Lives with her and has 3 children. Her and her eldest are in [place] exploring college options. Her friend Kenya is at bedside who supported Tony through her course from [place] to [facility] and here. OBJECTIVE VITAL SIGNS I have [...] arrival. Continue zosyn, follow blood cultures from [place]. Query of DILI raised with elevated liver enzymes. Can consider that after infectious aspects evaluated. Observe in ICU. Oncology consult. Possible transfer later if remains off pressors. Rest as per critical care team note. UREMENT AND SENSING TECHNICIAN * Meet Mcgregor M.D., Pharm.D. - 08/09/2023 3:37 AM CST ICU ADMISSION NOTE SUBJECTIVE CHIEF COMPLAINT Fever, malaise, syncope HISTORY OF PRESENT ILLNESS Tony Cota is a 48 y.o. female admitted for sepsis. Pertinent medical comorbidities include: metastatic melanoma, unknown primary, on dabrefenib/trametinib with bone mets, renal mets and intracranial mets, cancer related pain on home opioids. Patient reports two days of fever and chills. Had syncopal episode resulting in presentation to [place] ED for initial evaluation. There received 2L crystalloid and started on Zosyn. She was transferred to [facility] ED where she received 1L crystalloid and Zosyn was continued. She was started on norepi nephrine for hypotension despite fluids. She underwent a CT scan in [place] which demonstrated gallbladder sludge and pericholecystic fluid. Also had blood cultures x2, urinalysis (reportedly bland per patient), COVID/flu/RSV (negative per patient). RUQ US at [facility] demonstrated cholelithiasis without cholecystitis. Denies cough, chest [...] patient. Patient reports negative COVID/flu/RSV test at [place] as well. Heme: Known metastatic melanoma on [...] Meet Mcgregor MD, PharmD PGY-4 Personal Pager: [phone] UREMENT AND SENSING TECHNICIAN * Aranza Harvey Pharm.D., R.Ph. - 08/09/2023 [...] 50 mg as needed. Notes: Not taking Aranza Harvey, Pharm.D., R.Ph. 08/09/23 0127 UREMENT AND SENSING TECHNICIAN documented in this encounter ED Notes * [...] episode at the grocery storewhen [facility]. She was supposed to be direct admit [...] have provided signed off to the resident project management consultant. Based on their diagnostic studies and [...] to the 10 3 resident and the project management consultant (via the cc OD) Final Diagnoses: as of 08/09/23426 Sepsis (HCC) Multiple Myeloma Not Having Achieved Remission (HCC) Care Handoff Row Name 08/09/23 0344 Care Handoff Type of Handoff Admission handoff Jose Cavanaugh APRN, C.N.P. 08/09/23426 UREMENT AND SENSING TECHNICIAN documented in this encounter Plan of Treatment Upcoming Encounters Date Type Department Care Team (Late st Contact Info) Description 08/19/2023 6:40 AM MEASUREMENT AND SENSING TECHNICIAN Appointment Department of Laboratory Medicine and Pathology, [facility] in [place], [place] [address] [place] [phone] Pérez Zuniga M.D., Ph.D. [address] [place] [phone] 08/19/2023 7:00 AM MEASUREMENT AND SENSING TECHNICIAN Ancillary Procedure Department of Cardiovascular Medicine in [place], [place] [address] [place] [phone] Pérez Zuniga M.D., Ph.D. [address] [place] [phone] 08/19/2023 9:00 AM MEASUREMENT AND SENSING TECHNICIAN Appointment Department of Radiology, [facility] in [place], [place] [address] [place] [phone] Pérez Zuniga M.D., Ph.D. [address] [place] [phone] 08/19/2023 3:40 PM MEASUREMENT AND SENSING TECHNICIAN Office Visit Department of Oncology in [place], [place] [address] [place] [phone] Zhane Granados, METHODS ANALYST, C.N.P. [address] [place] [phone] 08/21/2023 10:15 AM MEASUREMENT AND SENSING TECHNICIAN Clinical Support Department of Palliative Care in [place], [place] [address] [place] [phone] Serenity Kelsey, P.A.-C. [address] [place] [phone] Meka Rinaldi D.N.P., R.N., [facility] documented as of this encounter Procedures Procedure Name Priority Date/Time Associated Diagnosis Comments HEPATIC FUNCTION PANEL, S Timed 08/09/2023 12:22 PM MEASUREMENT AND SENSING TECHNICIAN US GALLBLADDER AND OR BILIARY DUCTS RAD - Semiurgent (Fast; most ED patients; some inpatients) 08/09/2023 2:44 AM MEASUREMENT AND SENSING TECHNICIAN INTERPRETATION OF OUTSIDE CT ABDOMEN AND OR PELVIS RAD - Semiurgent (Fast; most ED patients; some inpatients) 08/09/2023 2:14 AM MEASUREMENT AND SENSING TECHNICIAN ECG STAT 08/09/2023 12:49 AM MEASUREMENT AND SENSING TECHNICIAN LACTATE FOR SEPSIS WITH REFLEX, POCT STAT 08/09/2023 12:49 AM MEASUREMENT AND SENSING TECHNICIAN VBG & LYTES CG8+, POCT, B STAT 08/09/2023 12:49 AM MEASUREMENT AND SENSING TECHNICIAN HEPATIC FUNCTION PANEL, S STAT 08/09/2023 12:49 AM MEASUREMENT AND SENSING TECHNICIAN CBC WITH DIFFERENTIAL, B STAT 08/09/2023 12:49 AM MEASUREMENT AND SENSING TECHNICIAN LIPASE, S/P STAT 08/09/2023 12:49 AM MEASUREMENT AND SENSING TECHNICIAN BASIC METABOLIC PANEL, S/P STAT 08/09/2023 12:49 AM MEASUREMENT AND SENSING TECHNICIAN documented in this encounter Results * (ABNORMAL) Hepatic Function Panel (08/09/2023 12:22 PM MEASUREMENT AND SENSING TECHNICIAN) Bilirubin, Total, S 1.3(H) 0.0 - 1.2 mg/dL 08/09/2023 1:29 PM MEASUREMENT AND SENSING TECHNICIAN DTL Bilirubin, Direct, S 1.1(H) 0.0 - 0.3 mg/dL 08/09/2023 1:29 PM MEASUREMENT AND SENSING TECHNICIAN DTL Aspartate Aminotransferase (AST), S 154(H) 8 - 43 U/L 08/09/2023 1:29 PM MEASUREMENT AND SENSING TECHNICIAN DTL Alanine Aminotransferase (ALT), S 127(H) 7 - 45 U/L 08/09/2023 1:29 PM MEASUREMENT AND SENSING TECHNICIAN DTL Alkaline Phosphatase, S 396(H) 35 - 104 U/L 08/09/2023 1:29 PM MEASUREMENT AND SENSING TECHNICIAN DTL Albumin, S 3.5 3.5 - 5.0 g/dL 08/09/2023 1:29 PM MEASUREMENT AND SENSING TECHNICIAN DTL Protein, Total, S 6.2(L) 6.3 - 7.9 g/dL 08/09/2023 1:29 PM MEASUREMENT AND SENSING TECHNICIAN DTL Blood (Blood, Venous) 08/09/2023 12:22 PM MEASUREMENT AND SENSING TECHNICIAN 08/09/2023 1:14 PM MEASUREMENT AND SENSING TECHNICIAN Lesvia Ma APRN, Harsha.N.Gemma, MLindsey ESPINAL BLOOD ADD-ON [facility] [address] [place] [address], [facility] [place] [address] [place] [address] * US Gallbladder and or Biliary Ducts (08/09/2023 2:44 AM MEASUREMENT AND SENSING TECHNICIAN) Anatomical Region Laterality Modality Abdomen, Ultrasound RST LOS, Ultrasound ARZ LOS, Ultrasound FLA LOS N/A Ultrasound Impressions 08/09/2023 8:05 AM MEASUREMENT AND SENSING TECHNICIAN Cholelithiasis without evidence of acute cholecystitis. Narrative 08/09/2023 8:05 AM MEASUREMENT AND SENSING TECHNICIAN EXAM: US GALLBLADDER AND OR BILIARY DUCTS [...] acute cholecystitis. Harsha Jones APRN.NSimi. IMG US MD OCEDURES * Interpretation of Outside CT Abdomen and or Pelvis (08/09/2023 2:14 AM MEASUREMENT AND SENSING TECHNICIAN) Anatomical Region Laterality Modality Abdomen, Pelvis, Abdominal R ST LOS, Abdominal ARZ LOS, Abdominal FLA LOS, Other N/A Computed Tomography Impressions 08/09/2023 5:35 AM MEASUREMENT AND SENSING TECHNICIAN 1. ??No evidence of cholangitis. 2. There is a new 13 x 20 mm nodule in the right lower lobe (2/21). This lesion has an irregular, ground glass border and contains an air bronchogram. Infection and metastatic disease are in the differential. 3. Interval increased size in multiple partially treated bone metastases. Narrative 08/09/2023 5:35 AM MEASUREMENT AND SENSING TECHNICIAN EXAM: ??INTERPRETATION OF OUTSIDE CT ABDOMEN AND [...] bonemetastases. Jose Cavanaugh APRN, C.N.P. IMG CT MD OCEDURES * ECG 12 Lead (08/09/2023 12:49 AM MEASUREMENT AND SENSING TECHNICIAN) Ventricular Rate ECG/Min 66 BPM MUSE MD Interval 150 ms MUSE QRSD Interval 86 ms MUSE QT Interval 456 ms MUSE QTC Interval 478 ms MUSE P Bryant 52 degrees MUSE R Bryant 80 degrees MUSE T Wave Bryant 86 degrees MUSE 08/09/2023 12:4 9 AM MEASUREMENT AND SENSING TECHNICIAN 08/09/2023 12:51 AM MEASUREMENT AND SENSING TECHNICIAN Impressions MUSE - 08/09/2023 12:51 AM MEASUREMENT AND SENSING TECHNICIAN Normal sinus rhythm Low anterior forces Nonspecific [...] C.N.P. ECG ORDER DANIEL Performing Organization Address City/[facility]/ZIP Co de Phone Number MUSE NA * (ABNORMAL) Lipase (08/09/2023 12:49 AM MEASUREMENT AND SENSING TECHNICIAN) Lipase, S 79(H) 13 - 60 U/L 08/09/2023 1: 51 AM MEASUREMENT AND SENSING TECHNICIAN DTL Blood (Blood, Venous) 08/09/2023 12:49 AM MEASUREMENT AND SENSING TECHNICIAN 08/09/2023 1:20 AM MEASUREMENT AND SENSING TECHNICIAN Jose Cavanaugh APRN, C.N.P. LAB BLOOD ADD-ON Performing Organization Address City/[facility] Co de Phone Number [facility] [address] [place] [address], [facility] DTL [facility] [address] [place] [address] * (ABNORMAL) Hepatic Function Panel (08/09/2023 12:49 AM MEASUREMENT AND SENSING TECHNICIAN) Bilirubin, Total, S 2.2(H) 0.0 - 1.2 mg/dL 08/09/2023 1:51 AM MEASUREMENT AND SENSING TECHNICIAN DTL Bilirubin, Direct, S 2.2(H) 0.0 - 0.3 mg/dL 08/09/2023 1:51 AM MEASUREMENT AND SENSING TECHNICIAN DTL Aspartate Aminotransferase (AST), S 202(H) 8 - 43 U/L 08/09/2023 1:51 AM MEASUREMENT AND SENSING TECHNICIAN DTL Alanine Aminotransferase (ALT), S 147(H) 7 - 45 U/L 08/09/2023 1:51 AM MEASUREMENT AND SENSING TECHNICIAN DTL Alkaline Phosphatase, S 471(H) 35 - 104 U/L 08/09/2023 1:51 AM MEASUREMENT AND SENSING TECHNICIAN DTL Albumin, S 3.6 3.5 - 5.0 g/dL 08/09/2023 1:51 AM MEASUREMENT AND SENSING TECHNICIAN DTL Protein, Total, S 6.5 6.3 - 7.9 g/dL 08/09/2023 1:51 AM MEASUREMENT AND SENSING TECHNICIAN DTL Blood (Blood, Venous) 08/09/2023 12:49 AM MEASUREMENT AND SENSING TECHNICIAN 08/09/2023 1:20 AM MEASUREMENT AND SENSING TECHNICIAN Price Jones APRNN.P. LAB BLOOD ADD-ON Performing Organization Address City/[facility]/ZIP Co de Phone Number [facility] [address] [place], [place] [phone] [place] [address] DTL [facility] [address] [place] [address] * (ABNORMAL) Basic Metabolic Panel (08/09/2023 12:49 AM MEASUREMENT AND SENSING TECHNICIAN) Pathologist [facility] Potassium, P 3.3(L) 3.6 - 5.2 mmol/L 08/09/2023 1:44 AM MEASUREMENT AND SENSING TECHNICIAN DTL Sodium, P 137 135 - 145 mmol/L 08/09/2023 1:44 AM MEASUREMENT AND SENSING TECHNICIAN DTL Chloride, P 102 98 - 107 mmol/L 08/09/2023 1:44 AM MEASUREMENT AND SENSING TECHNICIAN DTL Bicarbonate, P 18(L) 22 - 29 mmol/L 08/09/2023 1:44 AM MEASUREMENT AND SENSING TECHNICIAN DTL Anion Gap, P 17(H) 7 - 15 08/09/2023 1:44 AM MEASUREMENT AND SENSING TECHNICIAN DTL BUN (Blood Urea Nitrogen), P 16 6 - 21 mg/dL 08/09/2023 1:44 AM MEASUREMENT AND SENSING TECHNICIAN DTL Creatinine 0.95 0.59 - 1.04 mg/dL 08/09/2023 1:44 AM MEASUREMENT AND SENSING TECHNICIAN DTL Estimated GFR (eGFR) 75 >=60 mL/min/BSA 08/09/2023 1:44 AM MEASUREMENT AND SENSING TECHNICIAN DTL Comment: Estimated GFR calculated using the 2020 CKD_EPI creatinine equation. Calcium, Total, P 8.6 8.6 - 10.0 mg/dL 08/09/2023 1:44 AM MEASUREMENT AND SENSING TECHNICIAN DTL Glucose, P 138 70 - 140 mg/dL 08/09/2023 1:44 AM MEASUREMENT AND SENSING TECHNICIAN DTL Blood (Blood, Venous) 08/09/2023 12:49 AM MEASUREMENT AND SENSING TECHNICIAN 08/09/2023 1:20 AM MEASUREMENT AND SENSING TECHNICIAN Harsha Jones APRN.N.P. LAB BLOOD ADD-ON [facility] [address] [place] [address], [facility] DTL [facility] [address] [place] [address] * (ABNORMAL) CBC with Differential, Blood (08/09/2023 12:49 AM MEASUREMENT AND SENSING TECHNICIAN) Hemoglobin 10.8(L) 11.6 - 15.0 g/dL 08/09/2023 1:00 AM MEASUREMENT AND SENSING TECHNICIAN STMA Hematocrit 32.0(L) 35.5 - 44.9 % 08/09/2023 1:00 AM MEASUREMENT AND SENSING TECHNICIAN STMA Erythrocytes 3.33(L) 3.92 - 5.13 x10(12)/L 08/09/2023 1:00 AM MEASUREMENT AND SENSING TECHNICIAN STMA MCV 96.1 78.2 - 97.9 fL 08/09/2023 1:00 AM MEASUREMENT AND SENSING TECHNICIAN STMA RBC Distrib Width 14.1 12.2 - 16.1 % 08/09/2023 1:00 AM MEASUREMENT AND SENSING TECHNICIAN STMA Platelet Count 226 157 - 371 x10(9)/L 08/09/2023 1:00 AM MEASUREMENT AND SENSING TECHNICIAN STMA Leukocytes 7.9 3.4 - 9.6 x10(9)/L 08/09/2023 1:00 AM MEASUREMENT AND SENSING TECHNICIAN STMA Neutrophils 6.54(H) 1.56 - 6.45 x10(9)/L 08/09/2023 1:00 AM MEASUREMENT AND SENSING TECHNICIAN DHPM Lymphocytes 1.14 0.95 - 3.07 x10(9)/L 08/09/2023 1:00 AM MEASUREMENT AND SENSING TECHNICIAN STMA Monocytes 0.14(L) 0.26 - 0.81 x10(9)/L 08/09/2023 1:00 AM MEASUREMENT AND SENSING TECHNICIAN STMA Eosinophils <0.03 0.03 - 0.48 x10(9)/L 08/09/2023 1:00 AM MEASUREMENT AND SENSING TECHNICIAN STMA Basophils 0.04 0.01 - 0.08 x10(9)/L 08/09/2023 1:00 AM MEASUREMENT AND SENSING TECHNICIAN STMA Blood (Blood, Venous) 08/09/2023 12:49 AM MEASUREMENT AND SENSING TECHNICIAN 08/09/2023 12:58 AM MEASUREMENT AND SENSING TECHNICIAN Jose Cavanaugh APRN, C.N.P. LAB BLOOD ADD-ON [facility] [address] [place] [address], [place] STMA [facility] [address] [place] [address] [facility] [address] [place] [address] * (ABNORMAL) Venous Blood Gas and Electrolytes CG8+, POCT (08/09/2023 12:49 AM MEASUREMENT AND SENSING TECHNICIAN) [facility] Sample Site, POCT Venstick 08/09/2023 1:01 AM MEASUREMENT AND SENSING TECHNICIAN PCLX Comment: ----ADDITIONAL INFORMATION---- Performed at the Point of Care pH, Venous, POCT, B 7.37 7.32 - 7.43 08/09/2023 1:01 AM MEASUREMENT AND SENSING TECHNICIAN PCSM Comment: ----ADDITIONAL INFORMATION---- Performed at the Point of Care pCO2, Venous, POCT, B 35(L) 41 - 51 mm Hg 08/09/2023 1:01 AM MEASUREMENT AND SENSING TECHNICIAN PCSM Comment: ----ADDITIONAL INFORMATION---- Performed at the Point of Care pO2, Venous, POCT, B 36 Not Applicable mm Hg 08/09/2023 1:01 AM MEASUREMENT AND SENSING TECHNICIAN PCSM Comment: ----ADDITIONAL INFORMATION---- Performed at the Point of Care Base Excess, Venous, POCT, B -5 Not Applicable mmol/L 08/09/2023 1:01 AM MEASUREMENT AND SENSING TECHNICIAN PCSM Comment: ----ADDITIONAL INFORMATION---- Performed at the Point of Care HCO3, Venous, POCT, B 20 Not Applicable mmol/L 08/09/2023 1:01 AM MEASUREMENT AND SENSING TECHNICIAN PCSM Comment: ----ADDITIONAL INFORMATION---- Performed at the Point of Care Sodium, POCT, B 136 135 - 145 mmol/L 08/09/2023 1:01 AM MEASUREMENT AND SENSING TECHNICIAN PCLX Comment: ----ADDITIONAL INFORMATION---- Performed at the Point of Care Potassium, POCT, B 3.3(L) 3.6 - 5.2 mmol/L 08/09/2023 1:01 AM MEASUREMENT AND SENSING TECHNICIAN PCLX Comment: ----ADDITIONAL INFORMATION---- Performed at the Point of Care Calcium, Ionized, POCT, B 4.60(L) 4.65 - 5.30 mg/dL 08/09/2023 1:01 AM MEASUREMENT AND SENSING TECHNICIAN PCLX Comment: ----ADDITIONAL INFORMATION---- Performed at the Point of Care Glucose, POCT, B 135 70 - 140 mg/dL 08/09/2023 1:01 AM MEASUREMENT AND SENSING TECHNICIAN PCLX Comment: ----ADDITIONAL INFORMATION---- Performed at the Point of Care Hematocrit, POCT, B 31.0(L) 35.5 - 44.9 % 08/09/2023 1:01 AM MEASUREMENT AND SENSING TECHNICIAN PCLX Comment: ----ADDITIONAL INFORMATION---- Performed at the Point of Care Blood (Blood, Venous) 08/09/2023 12:49 AM MEASUREMENT AND SENSING TECHNICIAN 08/09/2023 12:49 AM MEASUREMENT AND SENSING TECHNICIAN Jose Cavanaugh APRN, C.N.P. LAB POCT ORDERABLES - DEVICE Performing Organization Address [facility] de Phone Number [facility] [address] [place] [address], [facility] PCLX [facility] [address] [place] [address] PCSM [facility] [address] [place] [address] * Lactate for Sepsis with Reflex, POCT (08/09/2023 12:49 AM MEASUREMENT AND SENSING TECHNICIAN) Lactate, POCT 1.33 0.50 - 2.20 mmol/L 08/09/2023 1:01 AM MEASUREMENT AND SENSING TECHNICIAN PCLX Blood (Blood, Venous) 08/09/2023 12:49 AM MEASUREMENT AND SENSING TECHNICIAN 08/09/2023 12:49 AM MEASUREMENT AND SENSING TECHNICIAN Jose Cavanaugh APRN, C.N.P. LAB POCT ORDERABLES - DEVICE Performing Organization Address [facility] de Phone Number [facility] [address] [place] [address], [facility] PCLX [facility] [address] [place] [address] documented in this encounter Visit Diagnoses Diagnosis [...] source, community acquired Given 08/09/2023 9:34 AM MEASUREMENT AND SENSING TECHNICIAN 1 tablet dexAMETHasone tablet 1 mg (DECADRON) 1 mg, oral, Every 12 hours scheduled, First dose on Sat08/09/23 at 0900, For 85 days Given 08/09/2023 9:34 AM MEASUREMENT AND SENSING TECHNICIAN 1 mg heparin (porcine) injection 5,000 Units 5,000 Units, subcutaneous, Every 8 hours scheduled, First dose on Sat08/09/23 at 1400 NaCl 0.9 % bolus 1,000 mL 1,000 mL, intravenous, at 1,000 mL/hr, Administer over 1 Hours, Once, On Sat08/09/23 at 0153, For 1 dose New Bag 08/09/2023 2:05 AM MEASUREMENT AND SENSING TECHNICIAN 1,000 mL 1000 mL/hr norepinephrine 16 mcg/mL [...] Goal: MAP 60-80 Restarted 08/09/2023 6:16 AM MEASUREMENT AND SENSING TECHNICIAN 0.02 mcg/kg/min 5.78 mL/hr Rate/Dose Change 08/09/2023 5:26 AM MEASUREMENT AND SENSING TECHNICIAN 0.05 mcg/kg/min 14 .4 mL/hr Rate/Dose Change 08/09/2023 2:40 AM MEASUREMENT AND SENSING TECHNICIAN 0.1 mcg/kg/min 28. 9 mL/hr oxyCODONE IR [...] or split tablet. Given 08/09/2023 7:22 AM MEASUREMENT AND SENSING TECHNICIAN 40 mg piperacillin-tazobactam in dextrose (iso osm) IVPB 3.375 g (ZOSYN) 3.375 g, intravenous, at 100 mL/hr, Administer over 0.5 Hours, Once, On Sat08/09/23 at 0230, For 1 dose, Drug Monitoring Program: Pharmacist to adjust medication dosing based on indication and drug clearance factors., Indications: Intra-abdominal infection, community acquired New Bag 08/09/2023 2:21 AM MEASUREMENT AND SENSING TECHNICIAN 3.375 g 1 00 mL/hr potassium chloride ER tablet 40 mEq (KLORCON/K-TAB) 40 mEq, oral, Once, On Sat08/09/23 at 0700, For 1 dose, For K<3.3-3.5 mEq/L - give total of 40 mEq Swallow whole. Do NOT crush, chew, or split tablet., Monitor the following for replacement: Potassium, Replace Potassium per: Standard Schedule Given 08/09/2023 7:23 AM MEASUREMENT AND SENSING TECHNICIAN 40 mEq documented in this encounter Active and Recently Administered Medications Times are shown in MEASUREMENT AND SENSING TECHNICIAN. Scheduled Medication Order 08/07/2023 08/08/2023 08/09/2023 amoxicillin-pot [...] 0900, For 85 days 0554 (Held by [facility] - Provider: Meet Mcgregor M.D., Pharm.D. [...] 0554 until manually unheld 0554 (Held by [facility] - Provider: Meet Mcgregor M.D., Pharm.D. [...] documented as of this encounter Care Teams Technical Specialist Cytology Relationship Specialty Start Date End Date Elsewhere, Pcp PCP - General Family Medicine 06/17/23 documented as of this encounter
--- OUTSIDE RECORDS SUMMARY | 2023-08-09 19:21 | XMS_ITS | Encounter Summary ---
Author Name Unknown Organization [facility] Address [address] [place] [address] Care Team Providers Care Seasonal Clerk Name Role Phone Elsewhere, Pcp Primary Care Provider Unavailabl e Encounter Details Date Type Department Care Team (Late st Contact Info) Description 08/08/2023 Clinical Communication Department of Oncology in [place], [place] [address] [place] [phone] Cherelle Sanabria M.D. [address] [place] [phone] Social History Tobacco Use Types Packs/Day Years Used Date Smoking Tobacco: Never Passive Smoke Exposure: Never Smokeless Tobacco: Never Alcohol Use Standard Drinks/Week Comments Not Currently 6 (1 standard drink = 0.6 oz pur e alcohol) Occasional C Utilities Answer Date Recorded In the past 12 months has [employer], gas, oil, or water company threatened [...] your living situation today? I have a [facility] [facility] [employer] place to live 07/10/2023 Sex and Gender Information Value Date Recorded Sex Assigned at Female 05/31/2023 8:26 AM SPRING COILING MACHINE SETTER Gender Identity Female 05/31/2023 8:26 AM SPRING COILING MACHINE SETTER Sexual Orientation Straight 05/31/2023 8: 26 AM SPRING COILING MACHINE SETTER documented as of this encounter Miscellaneous Notes * Telephone Encounter - Cherelle Sanabria M.D. - 08/08/2023 12:45 AM SPRING COILING MACHINE SETTER Oncology Certified Medical Transcriptionist Received a call from Tony Cota, 48 [...] by: Cherelle Sanabria M.D. 08/08/23 1:06 AM SPRING COILING MACHINE SETTER Medical Oncology Fellow NG COILING MACHINE SETTER documented in this encounter Plan of Treatment Upcoming Encounters Date Type Department Care Team (Late st Contact Info) Description 08/19/2023 6:40 AM SPRING COILING MACHINE SETTER Appointment Department of Laboratory Medicine and Pathology, [facility] in [place], [place] [address] [place] [phone] Pérez Zuniga M.D., Ph.D. [address] [place] [phone] 08/19/2023 7:00 AM SPRING COILING MACHINE SETTER Ancillary Procedure Department of Cardiovascular Medicine in [place], [place] [address] [place] [phone] Pérez Zuniga M.D., Ph.D. [address] [place] [phone] 08/19/2023 9:00 AM SPRING COILING MACHINE SETTER Appointment Department of Radiology, [facility] in [place], [place] [address] [place] [address] Pérez Zuniga M.D., Ph.D. [address] [place] [phone] 08/19/2023 3:40 PM SPRING COILING MACHINE SETTER Office Visit Department of Oncology in [place], [place] [address] [place] [phone] Zhane Granados APRN, C.N.P. [address] [place] [phone] 08/21/2023 10:15 AM SPRING COILING MACHINE SETTER Clinical Support Department of Palliative Care in [place], [place] [address] [place] [phone] Serenity Kelsey, P.A.-C. [address] [place] [phone] Meka Rinaldi D.N.P., R.N., [facility] documented as of this encounter Visit Diagnoses Not on filedocumented in this encounter Additional Health Concerns Infection Onset Date Last Indicated Resolved Time Protective Environment 06/04/2023 06/04/2023 documented as of this encounter Care Teams Seasonal Clerk Relationship Specialty Start Date End Date Elsewhere, Pcp PCP - General Family Medicine 06/17/23 documented as of this encounter
--- OUTSIDE RECORDS SUMMARY | 2023-08-09 19:21 | XMS_ITS | Encounter Summary ---
Author Name Unknown Organization [facility] Address [address] [place] [address] Care Team Providers Care Delivery Of Shopping News Name Role Phone Elsewhere, Pcp Primary Care Provider Unavailabl e Reason for Referral * Outpatient (Routine) - Authorized Specialty Diagnoses / Procedures Referred By Contac t Referred To Contact Palliative Medicine Diagnoses Palliative Care Serenity Kelsey P.A.-C. [address] [place] [phone] [facility] Referral ID Status Reason Start Date Expiration Date V isits Requested Visits Authorized [id number] Authorized 07/26/2023 07/25/2026 1 1 Scheduling Instructions Please schedule for 08/21 at 1015 via video. MOTIVE PAINTER HELPER Reason for Visit * Outpatient (Routine) - Closed Specialty Diagnoses / Procedures Referred By Contac t Referred To Contact Palliative Medicine Diagnoses Palliative Care Marija Olivas, GAIL, C.N.P., M.S.N. [address] [place] [phone] [facility] Referral ID Status Reason Start Date Expiration Date Visits Re quested Visits Authorized [id number] Closed 07/16/2023 07/15/2026 1 1 Encounter Details Date Type Department Care Team (Late st Contact Info) Description 07/26/2023 1:15 PM AUTOMOTIVE PAINTER HELPER Telemedicine Department of Palliative Care in [place], [place] [address] [place] [phone] Marija Olivas APRN, C.N.P., M.S.N. [address] [place] [address] Meka Rinaldi D.N.P., R.N., [facility] Palliative Care Social History Tobacco Use Types Packs/Day Years Used Date Smoking Tobacco: Never Passive Smoke Exposure: Never Smokeless Tobacco: Never Alcohol Use Standard Drinks/Week Comments Not Currently 6 (1 standard drink = 0.6 oz pur e alcohol) Occasional [facility] Utilities Answer Date Recorded In the past 12 months has [employer], gas, oil, or water [employer] threatened to shut off services in your [...] Assigned at Female 05/31/2023 8:26 AM AUTOMOTIVE PAINTER HELPER Gender Identity Female 05/31/2023 8:26 AM AUTOMOTIVE PAINTER HELPER Sexual Orientation Straight 05/31/2023 8: 26 AM AUTOMOTIVE PAINTER HELPER documented as of this encounter Progress Notes * Meka Rinaldi D.N.P., R.N., [facility] - 07/26/2023 1:15 PM CST Palliative [...] , 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 She lives in [place] with her , Francis, and their 3 kids (a daughter who is a senior in highschool, daughterwho is a freshman in highschool and a 6th grade son), and dog. 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 [facility] plans to work on the following goals prior to our next meeting: Continue morning gratitude practice (setting an alarm just prior to morning chemo medications to create a habit) Complete the entirety of course modules-[facility] is looking forward to modules 2 and 4 Re-engage in journaling, a previously meaningful and uplifting activity in Tony's life. Next [facility] Meetin/7 at 10:15 via video Meka Rinaldi RNaccount maintenance representative Department of Palliative Medicine [facility] I spent 60 minutes face to face and non-face to face caring for the patient today. Electronically signed by Meka Rinaldi D.N.P., R.N., [facility] at 07/26/2023 2:40 PM AUTOMOTIVE PAINTER HELPER documented in this encounter Plan of Treatment Upcoming Encounters Date Type Department Care Team (Late st Contact Info) Description 08/19/2023 6:40 AM AUTOMOTIVE PAINTER HELPER Appointment Department of Laboratory Medicine and Pathology, [facility], in [place], [place] [address] [place] [address] Pérez Zuniga M.D., Ph.D. [address] [place] [phone] 08/19/2023 7:00 AM AUTOMOTIVE PAINTER HELPER Ancillary Procedure Department of Cardiovascular Medicine in [address] [phone] Pérez Zuniga M.D., Ph.D. [address] [place] [phone] 08/19/2023 9:00 AM AUTOMOTIVE PAINTER HELPER Appointment Department of Radiology, [facility], in [address] [phone] Pérez Zuniga M.D., Ph.D. [address] [place] [phone] 08/19/2023 3:40 PM AUTOMOTIVE PAINTER HELPER Office Visit Department of Oncology in [address] [phone] Zhane Granados, INSURANCE COUNSELOR, C.N.P. [address] [place] [phone] 08/21/2023 10:15 AM AUTOMOTIVE PAINTER HELPER Clinical Support Department of Palliative Care in [address] [phone] Serenity Kelsey, P.A.-C. [address] [place] [phone] Meka Rinaldi D.N.P., R.N., [facility] Scheduled Referrals Name Type Priority Associated Diagnoses Order Schedule Palliative Care nurse therapy visit (clinic) Outpatient Referral Routine Palliative Care Expected: 08/21/2023, Expires: 10/24/2024 documented as of this encounter Visit Diagnoses Diagnosis Palliative Care documented in this encounter Additional Health Concerns Infection Onset Date Last Indicated Resolved Time Protective Environment 06/04/2023 06/04/2023 documented as of this encounter Care Teams Delivery Of Shopping News Relationship Specialty Start Date End Date Elsewhere, Pcp PCP - General Family Medicine 06/17/23 documented as of this encounter
--- OUTSIDE RECORDS SUMMARY | 2023-08-09 19:21 | XMS_ITS | Encounter Summary ---
Author Name Unknown Organization [facility] Address [address] [place] [address] Care Team Providers Care Director Community Health Nursing Name Role Phone Elsewhere, Pcp Primary Care Provider Unavailabl e Reason for Referral * Outpatient (Routine) - Authorized Specialty Diagnoses / Procedures Referred By Mikki feliciano Referred To Contact Palliative Valentine Singh M.D., M.S. [address] [place] [phone] [facility] Referral ID Status Reason Start Date Expiration Date V isits Requested Visits Authorized [id number] Authorized 07/29/2023 07/28/2026 1 1 Scheduling Instructions 4-8 weeks, with Dr. Kelsey or if needed based on date, ok for another provider MOTIVE QUALITY MANAGER Reason for Visit * Outpatient (Routine) - Closed Specialty Diagnoses / Procedures Referred By Mikki feliciano Referred To Contact Palliative Valentine Singh M.D., M.S. [address] [place] [phone] [facility] Referral ID Status Reason Start Date Expiration Date Visits Re quested Visits Authorized [id number] Closed 07/01/2023 06/30/2026 1 1 Encounter Details Date Type Department Care Team (Late st Contact Info) Description 07/29/2023 10:15 AM AUTOMOTIVE QUALITY MANAGER Telemedicine Department of Palliative Care in [place], [place] 200 [place] [phone] Valentine Kelsey M.D., M.S. 200 [place] [phone] Melanoma Trunk (HCC) (Primary Dx); Secondary Malignant Neoplasm Bone (HCC); Pain Cancer Associated; Palliative Care Social History Tobacco Use Types Packs/Day Years Used Date Smoking Tobacco: Never Passive Smoke Exposure: Never Smokeless Tobacco: Never Alcohol Use Standard Drinks/Week Comments Not Currently 6 (1 standard drink = 0.6 oz pur e alcohol) Occasional [facility] Utilities Answer Date Recorded In the [...] Assigned at Female 05/31/2023 8:26 AM AUTOMOTIVE QUALITY MANAGER Gender Identity Female 05/31/2023 8:26 AM AUTOMOTIVE QUALITY MANAGER Sexual Orientation Straight 05/31/2023 8: 26 AM AUTOMOTIVE QUALITY MANAGER documented as of this encounter Progress Notes * Valentine Kelsey M.D., M.S. - 07/29/2023 10:15 AM CST SUBJECTIVE CHIEF COMPLAINT/REASON FOR VISIT Tony Cota is a 47 y.o. woman from [place], [place] with Stage IV melanoma metastatic to [...] fever and nausea with future dexamethasone wean. [employer] Who completed this form?: Patient No [...] Cota is a 47 y.o. woman from [place], [place] with Stage IV melanoma metastatic to [...] related to controlled substance prescribing: Melanoma [place] MAGAZINE JOURNALIST Review: We have reviewed the patient's record in the [place] prescription monitoring program 07/29/2023. Opioid Toxicity Review: [...] in Patient's Home Valentine Kelsey M.D., M.S. MOTIVE QUALITY MANAGER documented in this encounter Plan of Treatment Upcoming Encounters Date Type Department Care Team (Late st Contact Info) Description 08/19/2023 6:40 AM AUTOMOTIVE QUALITY MANAGER Appointment Department of Laboratory Medicine and Pathology, [facility], in [place], [place] [address] [place] [address] Pérez Zuniga M.D., Ph.D. [address] [place] [phone] 08/19/2023 7:00 AM AUTOMOTIVE QUALITY MANAGER Ancillary Procedure Department of Cardiovascular Medicine in [place], [place] [address] [place] [phone] Pérez Zuniga M.D., Ph.D. [address] [place] [phone] 08/19/2023 9:00 AM AUTOMOTIVE QUALITY MANAGER Appointment Department of Radiology, [facility], in [place], [place] [address] [place] [phone] Pérez Zuniga M.D., Ph.D. [address] [place] [phone] 08/19/2023 3:40 PM AUTOMOTIVE QUALITY MANAGER Office Visit Department of Oncology in [place], [place] [address] [place] [phone] Zhane Granados, GAIL, C.N.P. [address] [place] [phone] 08/21/2023 10:15 AM AUTOMOTIVE QUALITY MANAGER Clinical Support Department of Palliative Care in [place], [place] [address] [place] [phone] Serenity Kelsey, P.A.-C. [address] [place] [phone] Meka Rinaldi D.N.P., R.N., [facility] Scheduled Referrals Name Type Priority Associated [...] documented as of this encounter Care Teams Director Community Health Nursing Relationship Specialty Start Date End Date Elsewhere, Pcp PCP - General Family Medicine 06/17/23 documented as of this encounter
--- OUTSIDE RECORDS SUMMARY | 2023-08-09 19:21 | XMS_ITS | Encounter Summary ---
Author Name Unknown Organization [facility] Address [address] [place] [address] Care Team Providers Care Surface Plate Finisher Name Role Phone Elsewhere, Pcp Primary Care Provider Unavailabl e Encounter Details Date Type Department Care Team (Late st Contact Info) Description 07/17/2023 12:45 PM LAP CUTTER TRUER OPERATOR Ancillary Procedure Department of Ophthalmology Social History Tobacco Use Types Packs/Day Years Used Date Smoking Tobacco: Never Passive Smoke Exposure: Never Smokeless Tobacco: Never Alcohol Use Standard Drinks/Week Comments Not Currently 6 (1 standard drink = 0.6 oz pur e alcohol) Occasional [facility] Utilities Answer Date Recorded In the past 12 months has [employer] electric, gas, oil, or water company threatened [...] your living situation today? I have a [facility] place to live 07/10/2023 Sex and Gender Information Value Date Recorded Sex Assigned at Female 05/31/2023 8:26 AM LAP CUTTER TRUER OPERATOR Gender Identity Female 05/31/2023 8:26 AM LAP CUTTER TRUER OPERATOR Sexual Orientation Straight 05/31/2023 8: 26 AM LAP CUTTER TRUER OPERATOR documented as of this encounter Plan of Treatment Upcoming Encounters Date Type Department Care Team (Late st Contact Info) Description 08/19/2023 6:40 AM LAP CUTTER TRUER OPERATOR Appointment Department of Laboratory Medicine and Pathology, [place], [place] [address] [place] [address] Pérez Zuniga M.D., Ph.D. [address] [place] [phone] 08/19/2023 7:00 AM LAP CUTTER TRUER OPERATOR Ancillary Procedure Department of Cardiovascular Medicine in [place], [place] [address] [place] [address] Pérez Zuniga M.D., Ph.D. [address] [place] [phone] 08/19/2023 9:00 AM LAP CUTTER TRUER OPERATOR Appointment Department of Radiology, [facility] in [place], [place] [address] [place] [address] Pérez Zuniga M.D., Ph.D. [address] [place] [phone] 08/19/2023 3:40 PM LAP CUTTER TRUER OPERATOR Office Visit Department of Oncology in [place], [place] [address] [place] [phone] Zhane Granados APRN, C.N.P. [address] [place] [phone] 08/21/2023 10:15 AM LAP CUTTER TRUER OPERATOR Clinical Support Department of Palliative Care in [place], [place] [address] [place] [phone] Serenity Kelsey P.A.-C. [address] [place] [phone] Meka Rinaldi D.N.P., R.N., [facility] documented as of this encounter Procedures Procedure Name Priority Date/Time Associated Diagnosis Comments OPHTHALMOLOGY IMAGE EXAM Routine 07/17/2023 12:45 PM LAP CUTTER TRUER OPERATOR documented in this encounter Results * [employer]-Ophthalmology Image Exam (07/17/2023 12:45 PM LAP CUTTER TRUER OPERATOR) 07/17/2023 12:4 5 PM LAP CUTTER TRUER OPERATOR Narrative IIMS - 07/17/2023 1:03 PM LAP CUTTER TRUER OPERATOR This order has been created and [...] documented as of this encounter Care Teams Surface Plate Finisher Relationship Specialty Start Date End Date Elsewhere, Pcp PCP - General Family Medicine 06/17/23 documented as of this encounter
--- OUTSIDE RECORDS SUMMARY | 2023-08-09 19:21 | XMS_ITS | Encounter Summary ---
Author Name Unknown Organization [facility] Address [address] [place] [address] Care Team Providers Care Fiberglass Tube Molder Name Role Phone Elsewhere, Pcp Primary Care Provider Unavailabl e Encounter Details Date Type Department Care Team (Late st Contact Info) Description 07/17/2023 12:10 AM ADJUSTO WRITER OPERATOR Ancillary Procedure Department of Dermatology Social History Tobacco Use Types Packs/Day Years Used Date Smoking Tobacco: Never Passive Smoke Exposure: Never Smokeless Tobacco: Never Alcohol Use Standard Drinks/Week Comments Not Currently 6 (1 standard drink = 0.6 oz pur e alcohol) Occasional [facility] Utilities Answer Date Recorded In the past 12 months has [employer] electric, gas, oil, or water company threatened [...] Sex Assigned at Female 05/31/2023 8:26 AM ADJUSTO WRITER OPERATOR Gender Identity Female 05/31/2023 8:26 AM ADJUSTO WRITER OPERATOR Sexual Orientation Straight 05/31/2023 8: 26 AM ADJUSTO WRITER OPERATOR documented as of this encounter Plan of Treatment Upcoming Encounters Date Type Department Care Team (Late st Contact Info) Description 08/19/2023 6:40 AM ADJUSTO WRITER OPERATOR Appointment Department of Laboratory Medicine and Pathology, [place], [place] [address] [place] [address] Pérez Zuniga M.D., Ph.D. [address] [place] [phone] 08/19/2023 7:00 AM ADJUSTO WRITER OPERATOR Ancillary Procedure Department of Cardiovascular Medicine in [place], [place] [address] [place] [address] Pérez Zuniga M.D., Ph.D. [address] [place] [phone] 08/19/2023 9:00 AM ADJUSTO WRITER OPERATOR Appointment Department of Radiology, [facility] in [place], [place] [address] [place] [address] Pérez Zuniga M.D., Ph.D. [address] [place] [phone] 08/19/2023 3:40 PM ADJUSTO WRITER OPERATOR Office Visit Department of Oncology in [place], [place] [address] [place] [address] Zhane Granados, GAIL, C.N.P. [address] [place] [phone] 08/21/2023 10:15 AM ADJUSTO WRITER OPERATOR Clinical Support Department of Palliative Care in [place], [place] [address] [place] [phone] Serenity Kelsey P.A.-C. [address] [place] [phone] Meka Rinaldi D.N.P., R.N., [facility] documented as of this encounter Procedures Procedure Name Priority Date/Time Associated Diagnosis Comments DERMATOLOGY IMAGE EXAM Routine 07/17/2023 12:10 AM ADJUSTO WRITER OPERATOR documented in this encounter Results * Shoulder Dermoscopy-Dermatology Image Exam (07/17/2023 12:10 AM ADJUSTO WRITER OPERATOR) Narrative [facility]IM[facility] - 07/18/2023 7:21 AM ADJUSTO WRITER OPERATOR This order has been created and auto-finalized to support the import of images acquired without order. The clinical documentation to support these images can be found on the encounter that produced images. Provider Not In System IMG NON RAD IMAGI NG PROCEDURES IINM NA documented in this encounter Visit Diagnoses Not on filedocumented in this encounter Additional Health Concerns Infection Onset Date Last Indicated Resolved Time Protective Environment 06/04/2023 06/04/2023 documented as of this encounter Care Teams Fiberglass Tube Molder Relationship Specialty Start Date End Date Elsewhere, Pcp PCP - General Family Medicine 06/17/23 documented as of this encounter
--- OUTSIDE RECORDS SUMMARY | 2023-08-09 19:21 | XMS_ITS | Encounter Summary ---
Author Name Unknown Organization [facility] Address [address] [place] [address] Care Team Providers Care Career Development Associate Name Role Phone Elsewhere, Pcp Primary Care Provider Unavailabl e Encounter Details Date Type Department Care Team (Late st Contact Info) Description 08/09/2023 Clinical Communication Department of Oncology in [place], [place] [address] [place] [phone] Anahy Amezcua, R.N., O.C.N. [address] [place] [phone] Social History Tobacco Use Types Packs/Day Years Used Date Smoking Tobacco: Never Passive Smoke Exposure: Never Smokeless Tobacco: Never Alcohol Use Standard Drinks/Week Comments Not Currently 6 (1 standard drink = 0.6 oz pur e alcohol) Occasional C Utilities Answer Date Recorded In the past 12 months has [employer], gas, oil, or water [employer] threatened to shut off services in your [...] Sex Assigned at Female 05/31/2023 8:26 AM MEDICAL OFFICE ASST Gender Identity Female 05/31/2023 8:26 AM MEDICAL OFFICE ASST Sexual Orientation Straight 05/31/2023 8: 26 AM MEDICAL OFFICE ASST documented as of this encounter Plan of Treatment Upcoming Encounters Date Type Department Care Team (Late st Contact Info) Description 08/19/2023 6:40 AM MEDICAL OFFICE ASST Appointment Department of Laboratory Medicine and Pathology, [facility], in [place], [place] 200 [place] [phone] Pérez Zuniga M.D., Ph.D. [address] [place] [phone] 08/19/2023 7:00 AM MEDICAL OFFICE ASST Ancillary Procedure Department of Cardiovascular Medicine in [place], [place] 200 [place] [phone] Pérez Zuniga M.D., Ph.D. [address] [place] [phone] 08/19/2023 9:00 AM MEDICAL OFFICE ASST Appointment Department of Radiology, [facility], in [place], [place] [address] [place] [phone] Pérez Zuniga M.D., Ph.D. [address] [place] [phone] 08/19/2023 3:40 PM MEDICAL OFFICE ASST Office Visit Department of Oncology in [place], [place] [address] [place] [phone] Zhane Granados APRN, C.N.P. [address] [place] [phone] 08/21/2023 10:15 AM MEDICAL OFFICE ASST Clinical Support Department of Palliative Care in [place], [place] [address] [place] [phone] Serenity Kelsey, P.A.-C. [address] [place] [phone] Meka Rinaldi D.N.P., R.N., [facility] documented as of this encounter Visit Diagnoses Diagnosis Melanoma Trunk (HCC)- Primary Other Jail Current Drug Therapy documented in this encounter Additional Health Concerns Infection Onset Date Last Indicated Resolved Time Protective Environment 06/04/2023 06/04/2023 documented as of this encounter Care Teams Career Development Associate Relationship Specialty Start Date End Date Elsewhere, Pcp PCP - General Family Medicine 06/17/23 documented as of this encounter
--- OUTSIDE RECORDS SUMMARY | 2023-08-09 19:21 | XMS_ITS | Encounter Summary ---
Author Name Unknown Organization [facility] Address [address] [place] [address] Care Team Providers Care Sample Supervisor Name Role Phone Elsewhere, Pcp Primary Care Provider Unavailabl e Encounter Details Date Type Department Care Team (Latest Contact Info) Description 08/06/2023 2:30 PM PACKAGING OPERATOR Clinical Communication Virtual Review in [place], [place] 200 [place], [place] [phone] Social History Tobacco Use Types Packs/Day Years Used Date Smoking Tobacco: Never Passive Smoke Exposure: Never Smokeless Tobacco: Never Tobacco Cessation:Counseling Given: Not Answered Alcohol Use Standard Drinks/Week Comments Not Currently 6 (1 standard drink = 0.6 oz pur e alcohol) Occasional [facility] Utilities Answer Date Recorded In the past 12 months has [employer], gas, oil, or water [employer] threatened to shut off services in your [...] your living situation today? I have a [facility] place to live 07/10/2023 Sex and Gender Information Value Date Recorded Sex Assigned at Female 05/31/2023 8:26 AM PACKAGING OPERATOR Gender Identity Female 05/31/2023 8:26 AM PACKAGING OPERATOR Sexual Orientation Straight 05/31/2023 8: 26 AM PACKAGING OPERATOR documented as of this encounter Plan of Treatment Upcoming Encounters Date Type Department Care Team (Late st Contact Info) Description 08/19/2023 6:40 AM PACKAGING OPERATOR Appointment Department of Laboratory Medicine and Pathology, [facility] in [place], [place] [address] [place] [address] Pérez Zuniga M.D., Ph.D. [address] [place] [phone] 08/19/2023 7:00 AM PACKAGING OPERATOR Ancillary Procedure Department of Cardiovascular Medicine in [place], [place] [address] [place] [address] Pérez Zuniga M.D., Ph.D. [address] [place] [phone] 08/19/2023 9:00 AM PACKAGING OPERATOR Appointment Department of Radiology, [facility] in [place], [place] [address] [place] [phone] Pérez Zuniga M.D., Ph.D. [address] [place] [phone] 08/19/2023 3:40 PM PACKAGING OPERATOR Office Visit Department of Oncology in [place], [place] [address] [place] [phone] Zhane Granados APRN, C.N.P. [address] [place] [phone] 08/21/2023 10:15 AM PACKAGING OPERATOR Clinical Support Department of Palliative Care in [place], [place] [address] [place] [phone] Serenity Kelsey, P.A.-C. [address] [place] [phone] Meka Rinaldi D.N.P., R.N., [facility] documented as of this encounter Visit Diagnoses Not on filedocumented in this encounter Additional Health Concerns Infection Onset Date Last Indicated Resolved Time Protective Environment 06/04/2023 06/04/2023 documented as of this encounter Care Teams Sample Supervisor Relationship Specialty Start Date End Date Elsewhere, Pcp PCP - General Family Medicine 06/17/23 documented as of this encounter
--- OUTSIDE RECORDS SUMMARY | 2023-08-09 19:21 | XMS_ITS | Encounter Summary ---
Author Name Unknown Organization [facility] Address [address] [place] [address] Care Team Providers Care Shingle Grader Name Role Phone Elsewhere, Pcp Primary Care Provider Unavailabl e Encounter Details Date Type Department Care Team (Late st Contact Info) Description 07/17/2023 12:05 AM PROCESSING TECHNICIAN Ancillary Procedure Department of Dermatology Social History Tobacco Use Types Packs/Day Years Used Date Smoking Tobacco: Never Passive Smoke Exposure: Never Smokeless Tobacco: Never Alcohol Use Standard Drinks/Week Comments Not Currently 6 (1 standard drink = 0.6 oz pur e alcohol) Occasional [facility] Utilities Answer Date Recorded In the past 12 months has [employer], gas, oil, or water company threatened [...] Sex Assigned at Female 05/31/2023 8:26 AM PROCESSING TECHNICIAN Gender Identity Female 05/31/2023 8:26 AM PROCESSING TECHNICIAN Sexual Orientation Straight 05/31/2023 8: 26 AM PROCESSING TECHNICIAN documented as of this encounter Plan of Treatment Upcoming Encounters Date Type Department Care Team (Late st Contact Info) Description 08/19/2023 6:40 AM PROCESSING TECHNICIAN Appointment Department of Laboratory Medicine and Pathology, [place], [place] [address] [place] [address] Pérez Zuniga M.D., Ph.D. [address] [place] [phone] 08/19/2023 7:00 AM PROCESSING TECHNICIAN Ancillary Procedure Department of Cardiovascular Medicine in [place], [place] [address] [place] [address] Pérez Zuniga M.D., Ph.D. [address] [place] [phone] 08/19/2023 9:00 AM PROCESSING TECHNICIAN Appointment Department of Radiology, [facility] in [place], [place] [address] [place] [phone] Pérez Zuniga M.D., Ph.D. [address] [place] [phone] 08/19/2023 3:40 PM PROCESSING TECHNICIAN Office Visit Department of Oncology in [place], [place] [address] [place] [phone] Zhane Granados, GAIL, C.N.P. [address] [place] [phone] 08/21/2023 10:15 AM PROCESSING TECHNICIAN Clinical Support Department of Palliative Care in [place], [place] [address] [place] [phone] Serenity Kelsey P.A.-C. [address] [place] [phone] Meka Rinaldi D.N.P., R.N., [facility] documented as of this encounter Procedures Procedure Name Priority Date/Time Associated Diagnosis Comments DERMATOLOGY IMAGE EXAM Routine 07/17/2023 12:05 AM PROCESSING TECHNICIAN documented in this encounter Results * Back 527 Dermoscopy-Dermatology Image Exam (07/17/2023 12:05 AM PROCESSING TECHNICIAN) Narrative IIMS - 07/18/2023 7:21 AM PROCESSING TECHNICIAN This order has been created and auto-finalized to support the import of images acquired without order. The clinical documentation to support these images can be found on the encounter that produced images. Provider Not In System IMG NON RAD IMAGI NG PROCEDURES IIWV NA documented in this encounter Visit Diagnoses Not on filedocumented in this encounter Additional Health Concerns Infection Onset Date Last Indicated Resolved Time Protective Environment 06/04/2023 06/04/2023 documented as of this encounter Care Teams Shingle Grader Relationship Specialty Start Date End Date Elsewhere, Pcp PCP - General Family Medicine 06/17/23 documented as of this encounter
--- OUTSIDE RECORDS SUMMARY | 2023-08-09 19:21 | XMS_ITS | Encounter Summary ---
Author Name Unknown Organization [facility] Address [address] [place] [address] Care Team Providers Care Quality Assurance Engineer Name Role Phone Elsewhere, Pcp Primary Care Provider Unavailabl e Encounter Details Date Type Department Care Team (Late st Contact Info) Description 08/04/2023 Specialty Pharmacy [facility] [address] [place] [phone] Demetrius Londono Jr., R.Ph. [address] [place] [phone] Social History Tobacco Use Types Packs/Day Years [...] your living situation today? I have a [facility] place to live 07/10/2023 Sex and Gender Information Value Date Recorded Sex Assigned at Female 05/31/2023 8:26 AM MAINFRAME PROGRAMMER Gender Identity Female 05/31/2023 8:26 AM MAINFRAME PROGRAMMER Sexual Orientation Straight 05/31/2023 8: 26 AM MAINFRAME PROGRAMMER documented as of this encounter Miscellaneous Notes * Telephone Encounter - Demetrius Londono Jr., R.Ph. - 08/04/2023 1:15 PM MAINFRAME PROGRAMMER [facility] Specialty Pharmacy service discontinued at this time. Patient using other pharmacy. FRAME PROGRAMMER documented in this encounter Plan of Treatment Upcoming Encounters Date Type Department Care Team (Late st Contact Info) Description 08/19/2023 6:40 AM MAINFRAME PROGRAMMER Appointment Department of Laboratory Medicine and Pathology, [facility], in [place], [place] [address] [place] [address] Pérez Zuniga M.D., Ph.D. [address] [place] [phone] 08/19/2023 7:00 AM MAINFRAME PROGRAMMER Ancillary Procedure Department of Cardiovascular Medicine in [place], [place] [address] [place] [address] Pérez Zuniga M.D., Ph.D. [address] [place] [phone] 08/19/2023 9:00 AM MAINFRAME PROGRAMMER Appointment Department of Radiology, [facility] in [place], [place] [address] [place] [address] Pérez Zuniga M.D., Ph.D. [address] [place] [phone] 08/19/2023 3:40 PM MAINFRAME PROGRAMMER Office Visit Department of Oncology in [place], [place] [address] [place] [address] Zhane Granados APRN, C.N.P. [address] [place] [phone] 08/21/2023 10:15 AM MAINFRAME PROGRAMMER Clinical Support Department of Palliative Care in [place], [place] [address] [place] [address] Serenity Kelsey, P.A.-C. [address] [place] [phone] Meka Rinaldi D.N.P., R.N., [facility] documented as of this encounter Visit Diagnoses Not on filedocumented in this encounter Additional Health Concerns Infection Onset Date Last Indicated Resolved Time Protective Environment 06/04/2023 06/04/2023 documented as of this encounter Care Teams Quality Assurance Engineer Relationship Specialty Start Date End Date Elsewhere, Pcp PCP - General Family Medicine 06/17/23 documented as of this encounter
--- OUTSIDE RECORDS SUMMARY | 2023-08-09 19:21 | XMS_ITS | Encounter Summary ---
Author Name Unknown Organization [facility] Address [address] [place] [address] Care Team Providers Care Neurology Tech Name Role Phone Elsewhere, Pcp Primary Care Provider Unavailabl e Encounter Details Date Type Department Care Team (Late st Contact Info) Description 08/09/2023 12:40 AM FIRE CONTROLMAN Ancillary Procedure Department of Radiology in [place], [place] [address] [place] [phone] Jose Cavanaugh, GAIL, C.N.P. [address] [place] [phone] Arrived Social History Tobacco Use Types Packs/Day [...] your living situation today? I have a [facility] place to live 07/10/2023 Sex and Gender Information Value Date Recorded Sex Assigned at Female 05/31/2023 8:26 AM FIRE CONTROLMAN Gender Identity Female 05/31/2023 8:26 AM FIRE CONTROLMAN Sexual Orientation Straight 05/31/2023 8: 26 AM FIRE CONTROLMAN documented as of this encounter Plan of Treatment Upcoming Encounters Date Type Department Care Team (Late st Contact Info) Description 08/19/2023 6:40 AM FIRE CONTROLMAN Appointment Department of Laboratory Medicine and Pathology, [facility] in [place], [place] [address] [place] [phone] Pérez Zuniga M.D., Ph.D. [address] [place] [phone] 08/19/2023 7:00 AM FIRE CONTROLMAN Ancillary Procedure Department of Cardiovascular Medicine in [place], [place] [address] [place] [phone] Pérez Zuniga M.D., Ph.D. [address] [place] [phone] 08/19/2023 9:00 AM FIRE CONTROLMAN Appointment Department of Radiology, [facility], in [place], [place] [address] [place] [phone] Pérez Zuniga M.D., Ph.D. [address] [place] [address] [phone] 08/19/2023 3:40 PM FIRE CONTROLMAN Office Visit Department of Oncology in [place], [place] [address] [place] [phone] Zhane Granados APRN, C.N.P. [address] [place] [phone] 08/21/2023 10:15 AM FIRE CONTROLMAN Clinical Support Department of Palliative Care in [place], [place] [address] [place] [phone] Serenity Kelsey, P.A.-C. [address] [place] [phone] Meka Rinaldi, Elvin.N.P., R.N., [facility] documented as of this encounter Procedures Procedure Name Priority Date/Time Associated Diagnosis Comments INTERPRETATION OF OUTSIDE CT ABDOMEN AND OR PELVIS RAD - Semiurgent (Fast; most ED patients; some inpatients) 08/09/2023 2:14 AM FIRE CONTROLMAN documented in this encounter Results * Interpretation of Outside CT Abdomen and or Pelvis (08/09/2023 2:14 AM FIRE CONTROLMAN) Anatomical Region Laterality Modality Abdomen, Pelvis, Abdominal R ST LOS, Abdominal ARZ LOS, Abdominal FLA LOS, Other N/A Computed Tomography Impressions 08/09/2023 5:35 AM FIRE CONTROLMAN 1. ??No evidence of cholangitis. 2. There is a new 13 x 20 mm nodule in the right lower lobe (2/21). This lesion has an irregular, ground glass border and contains an air bronchogram. Infection and metastatic disease are in the differential. 3. Interval increased size in multiple partially treated bone metastases. Narrative 08/09/2023 5:35 AM FIRE CONTROLMAN EXAM: ??INTERPRETATION OF OUTSIDE CT ABDOMEN AND [...] bonemetastases. Jose Cavanaugh APRN, C.N.P. IMG CT [place] OCEDURES documented in this encounter Visit Diagnoses Not on filedocumented in this encounter Additional Health Concerns Infection Onset Date Last Indicated Resolved Time Protective Environment 06/04/2023 06/04/2023 documented as of this encounter Care Teams Neurology Tech Relationship Specialty Start Date End Date Elsewhere, Pcp PCP - General Family Medicine 06/17/23 documented as of this encounter
--- OUTSIDE RECORDS SUMMARY | 2023-08-09 19:22 | XMS_ITS | Encounter Summary ---
Author Name Unknown Organization [facility] Address [address] [place] [address] Care Team Providers Care Manufacturer'S Representative Name Role Phone Elsewhere, Pcp Primary Care Provider Unavailabl e Reason for Referral * Outpatient (Routine) - Authorized Specialty Diagnoses / Procedures Referred By Contac t Referred To Contact Dermatology Anh Lee M.D. [address] [place] [address] [facility] Referral ID Status Reason Start Date Expiration Date V isits Requested Visits Authorized [id number] Authorized 07/17/2023 07/16/2026 1 1 CTOR CLIENT SERVICES * Outpatient (Routine) - Authorized Specialty Diagnoses / Procedures Referred By Contac t Referred To Contact Clinical Genomics Diagnoses Dermatoheliosis Anh Lee M.D. 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 [address] [place] [phone] [facility] Referral ID Status Reason Start Date Expiration Date Visits Re quested Visits Authorized [id number] Closed 05/22/2023 05/21/2024 1 1 Encounter Details Date Type Department Care Team (Latest Contact Info) Description 07/17/2023 4:15 PM DIRECTOR CLIENT SERVICES Comprehensive Visit Department of Dermatology in [place], [place] [address] [place] [phone] Naida Mejia P.A.-C., M.S. [address] [place] [phone] Anh Lee M.D. [address] [place] [phone] Nevi Multiple (Primary Dx); Melanoma Trunk (HCC); Secondary Malignant Neoplasm Bone (HCC); Screening Examination Skin Cancer; Dermatoheliosis; Tumor Skin Uncertain Behavior Social History Tobacco Use Types Packs/Day Years Used Date Smoking Tobacco: Never Passive Smoke Exposure: Never Smokeless Tobacco: Never Alcohol Use Standard Drinks/Week Comments Not Currently 6 (1 standard drink = 0.6 oz pur e alcohol) Occasional [facility] Utilities Answer Date Recorded In the past 12 months has [employer], oil, or water [employer] threatened to shut off services in your [...] your living situation today? I have a [facility] place to live 07/10/2023 Sex and Gender Information Value Date Recorded Sex Assigned at Female 05/31/2023 8:26 AM DIRECTOR CLIENT SERVICES Gender Identity Female 05/31/2023 8:26 AM DIRECTOR CLIENT SERVICES Sexual Orientation Straight 05/31/2023 8: 26 AM DIRECTOR CLIENT SERVICES documented as of this encounter Consult Notes [...] [facility]. The patient is new to [facility]. Today, she reports that she had a mole growing in the whites of her eye in high school. This was removed, and found to be benign, with no recurrence over yearsof ophthalmologic follow up. No other pigmented lesions have been biopsied. Last skin check by a sow farm technician was approximately 8 years ago. She states [...] the patient by letter. Patient given pamphlet TK5329. #5 Skin tumor uncertain behavior, left upper [...] by ROSHAN Wilcox, on 07/17/2023, 11:10 AM DIRECTOR CLIENT SERVICES. [facility] CLIENT SERVICES documented in this encounter Plan of Treatment Upcoming Encounters Date Type Department Care Team (Late st Contact Info) Description 08/19/2023 6:40 AM DIRECTOR CLIENT SERVICES Appointment Department of Laboratory Medicine and Pathology, [facility] in [address] [phone] Pérez Zuniga M.D., Ph.D. [address] [place] [phone] 08/19/2023 7:00 AM DIRECTOR CLIENT SERVICES Ancillary Procedure Department of Cardiovascular Medicine in [address] [phone] Pérez Zuniga M.D., Ph.D. [address] [place] [phone] 08/19/2023 9:00 AM DIRECTOR CLIENT SERVICES Appointment Department of Radiology, [facility] in [place], [place] [address] [place] [phone] Péerz Zuniga M.D., Ph.D. [address] [place] [phone] 08/19/2023 3:40 PM DIRECTOR CLIENT SERVICES Office Visit Department of Oncology in [place], [place] [address] [place] [phone] Zhane Granados APRN, C.N.P. [address] [place] [phone] 08/21/2023 10:15 AM DIRECTOR CLIENT SERVICES Clinical Support Department of Palliative Care in [place], [place] [address] [place] [phone] Serenity Kelsey, PSantoshASantosh-CSantosh [address] [place] [phone] Meka Rinaldi D.N.P., R.N., [facility] Scheduled Referrals Name Type Priority Associated Diagnoses Order Schedule Clinical Genomics - General genetics consult (clinic) Outpatient Referral Routine Dermatoheliosis Expected: 07/17/2023 (Approximate), Expires: 10/15/2024 Dermatology office visit (clinic) Outpatient Referral Routine Expected: 10/16/2023 (Approximate), Expires: 10/15/2024 documented as of this encounter Procedures Procedure Name Priority Date/Time Associated Diagnosis Comments DERMATOPATHOLOGY Routine 07/17/2023 4:41 PM DIRECTOR CLIENT SERVICES 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 07/22/2023 6:51 AM DIRECTOR CLIENT SERVICES PDRM Gross Description Received in formalin labeled [...] A1. ??Grossed by JONATHAN. 07/22/2023 6:51 AM DIRECTOR CLIENT SERVICES PDRM Interpretation FINAL DIAGNOSIS A. ??Right Shoulder - Anterior, Skin punch biopsy: Lentiginous compound nevus COMMENT Clinical note and photos reviewed. Diagnosis was made via digital imaging. A portion of the testing process was performed at [facility] site [id number]. 07/22/2023 6:51 AM DIRECTOR CLIENT SERVICES PDRM Skin (Right Shoulder - Anterior) 07/17/2023 4:40 PM DIRECTOR CLIENT SERVICES Anh Lee M.D. 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
--- OUTSIDE RECORDS SUMMARY | 2023-08-09 19:22 | XMS_ITS | Encounter Summary ---
Author Name Unknown Organization [facility] Address [address] [place] [address] Care Team Providers Care Fitness Studies Teacher Name Role Phone Elsewhere, Pcp Primary Care Provider Unavailabl e Encounter Details Date Type Department Care Team (Latest Contact Info) Description 07/04/2023 Clinical Communication Department of Ophthalmology in [place], [place] [address] [place] [address] Provider, Unknown Social History Tobacco Use Types Packs/Day Years Used Date Smoking Tobacco: Never Passive Smoke Exposure: Never Smokeless Tobacco: Never Alcohol Use Standard Drinks/Week Comments Not Currently 6 (1 standard drink = 0.6 oz pur e alcohol) Occasional C Utilities Answer Date Recorded In the past 12 months has [facility] CX, gas, oil, or water [employer] threatened to shut off services in your [...] your living situation today? I have a [facility] place to live 07/10/2023 Sex and Gender Information Value Date Recorded Sex Assigned at Female 05/31/2023 8:26 AM STEM TEACHER Gender Identity Female 05/31/2023 8:26 AM STEM TEACHER Sexual Orientation Straight 05/31/2023 8: 26 AM STEM TEACHER documented as of this encounter Plan of Treatment Upcoming Encounters Date Type Department Care Team (Late st Contact Info) Description 08/19/2023 6:40 AM STEM TEACHER Appointment Department of Laboratory Medicine and Pathology, [facility] in [place], [place] [address] [place] [phone] Pérez Zuniga M.D., Ph.D. [address] [place] [phone] 08/19/2023 7:00 AM STEM TEACHER Ancillary Procedure Department of Cardiovascular Medicine in [place], [place] [address] [place] [phone] Pérez Zuniga M.D., Ph.D. [address] [place] [phone] 08/19/2023 9:00 AM STEM TEACHER Appointment Department of Radiology, [facility] in [place], [place] [address] [place] [phone] Pérez Zuniga M.D., Ph.D. [address] [place] [phone] 08/19/2023 3:40 PM STEM TEACHER Office Visit Department of Oncology in [place], [place] [address] [place] [phone] Zhane Granados, GAIL, C.N.P. [address] [place] [phone] 08/21/2023 10:15 AM STEM TEACHER Clinical Support Department of Palliative Care in [place], [place] [address] [place] [phone] Serenity Kelsey, P.A.-C. [address] [place] [phone] Meka Rinaldi D.N.P., R.N., [facility] documented as of this encounter Visit Diagnoses Not on filedocumented in this encounter Additional Health Concerns Infection Onset Date Last Indicated Resolved Time Protective Environment 06/04/2023 06/04/2023 documented as of this encounter Care Teams Fitness Studies Teacher Relationship Specialty Start Date End Date Elsewhere, Pcp PCP - General Family Medicine 06/17/23 documented as of this encounter
--- OUTSIDE RECORDS SUMMARY | 2023-08-09 19:22 | XMS_ITS | Encounter Summary ---
Author Name Unknown Organization [facility] Address [address] [place] [id number] Care Team Providers Care Messenger Office Name Role Phone Elsewhere, Pcp Primary Care Provider Unavailabl e Reason for Visit * Outpatient (Routine) - Closed Specialty Diagnoses / Procedures Referred By Contsweetie t Referred To Contact Palliative Medicine Diagnoses Melanoma Trunk (HCC) Nausea Valentine Kelsey M.D., M.S. [address] [place] [phone] [facility] Referral ID Status Reason Start Date Expiration Date Visits Re quested Visits Authorized [id number] Closed 07/01/2023 06/30/2026 1 1 Encounter Details Date Type Department Care Team (Latest Contact Info) Description 07/04/2023 10:30 AM [facility] Clinical Support Department of Palliative Care in [place], [place] [address] [place] [phone] Valentine Kelsey M.D., M.S. [address] [place] [address] [phone] Inés Wiley R.N. [address] [place] [phone] Melanoma Trunk (HCC); Nausea Social History Tobacco [...] Sex Assigned at Female 05/31/2023 8:26 AM AUTO PARKER Gender Identity Female 05/31/2023 8:26 AM AUTO PARKER Sexual Orientation Straight 05/31/2023 8: 26 AM AUTO PARKER documented as of this encounter Progress Notes [...] Gastrointestinal Acupoints used: Esophagus, Liver, [place] Spirit [place], Spleen, and Stomach Device used: Titanium Ear [...] per day for best results. Acupressure Booklet [id number], Aromatherapy Safety [id number] , and Essential Oil Patient Education [id number] were provided and reviewed with the patient [...] Palliative Care Nurse [facility] PARKER documented in this encounter Plan of Treatment Upcoming Encounters Date Type Department Care Team (Late st Contact Info) Description 08/19/2023 6:40 AM AUTO PARKER Appointment Department of Laboratory Medicine and Pathology, [place], [place] [address] [place] [phone] Pérez Zuniga M.D., Ph.D. [address] [place] [phone] 08/19/2023 7:00 AM AUTO PARKER Ancillary Procedure Department of Cardiovascular Medicine in [place], [place] [address] [place] [phone] Pérez Zuniga M.D., Ph.D. [address] [place] [phone] 08/19/2023 9:00 AM AUTO PARKER Appointment Department of Radiology, [place], in [place], [place] [address] [place] [phone] Pérez Zuniga M.D., Ph.D. [address] [place] [phone] 08/19/2023 3:40 PM AUTO PARKER Office Visit Department of Oncology in [place], [place] [address] [place] [phone] Zhane Granados, GAIL, C.N.P. [address] [place] [phone] 08/21/2023 10:15 AM AUTO PARKER Clinical Support Department of Palliative Care in [place], [place] [address] [place] [phone] Serenity Kelsey, P.A.-C. [address] [place] [phone] Meka Rinaldi D.N.P., R.N., [facility] documented as of this encounter Visit Diagnoses Diagnosis Melanoma Trunk (HCC) Nausea documented in this encounter Additional Health Concerns Infection Onset Date Last Indicated Resolved Time Protective Environment 06/04/2023 06/04/2023 documented as of this encounter Care Teams Messenger Office Relationship Specialty Start Date End Date Elsewhere, Pcp PCP - General Family Medicine 06/17/23 documented as of this encounter
--- OUTSIDE RECORDS SUMMARY | 2023-08-09 19:22 | XMS_ITS | Encounter Summary ---
Author Name Unknown Organization [facility] Address [address] [place] [address] Care Team Providers Care Client Server Developer Name Role Phone Elsewhere, Pcp Primary Care Provider Unavailabl e Reason for Visit * Outpatient (Routine) - Closed Specialty Diagnoses / Procedures Referred By Mikki t Referred To Contact Ophthalmology Diagnoses Hemorrhage Retinal Bilateral Procedures ANGIOGRAPHY - OU - BOTH EYES OPH PROC IV START Phi Palm M.D., Ph.D. [address] [place] [phone] [facility] [place] [address] [place] [phone] Referral ID Status Reason Start Date Expiration Date Visits Re quested Visits Authorized [id number] Closed 07/17/2023 07/16/2024 3 3 Encounter Details Date Type Department Care Team (Latest Contact Info) Description 07/17/2023 11:30 AM HOLLOW WARE MAKER Ancillary Procedure Department of Ophthalmology in [place], [place] [address] [place] [phone] Phi Palm M.D., Ph.D. [address] [place] [phone] Hemorrhage Retinal Bilateral Social History Tobacco Use Types Packs/Day Years Used Date Smoking Tobacco: Never Passive Smoke Exposure: Never Smokeless Tobacco: Never Alcohol Use Standard Drinks/Week Comments Not Currently 6 (1 standard drink = 0.6 oz pur e alcohol) Occasional [facility] Utilities Answer Date Recorded In the [...] your living situation today? I have a [facility] place to live 07/10/2023 Sex and Gender Information Value Date Recorded Sex Assigned at Female 05/31/2023 8:26 AM HOLLOW WARE MAKER Gender Identity Female 05/31/2023 8:26 AM HOLLOW WARE MAKER Sexual Orientation Straight 05/31/2023 8: 26 AM HOLLOW WARE MAKER documented as of this encounter Plan of Treatment Upcoming Encounters Date Type Department Care Team (Late st Contact Info) Description 08/19/2023 6:40 AM HOLLOW WARE MAKER Appointment Department of Laboratory Medicine and Pathology, [facility], in [place], [place] [address] [place] [phone] Pérez Zuniga M.D., Ph.D. [address] [place] [phone] 08/19/2023 7:00 AM HOLLOW WARE MAKER Ancillary Procedure Department of Cardiovascular Medicine in [place], [place] [address] [place] [phone] Pérez Zuniga M.D., Ph.D. [address] [place] [phone] 08/19/2023 9:00 AM HOLLOW WARE MAKER Appointment Department of Radiology, [facility], in [place], [place] [address] [place] [phone] Pérez Zuniga M.D., Ph.D. [address] [place] [phone] 08/19/2023 3:40 PM HOLLOW WARE MAKER Office Visit Department of Oncology in [place], [place] [address] [place] [phone] Zhane Granados, MEMBERSHIP COORDINATOR, C.N.P. [address] [place] [phone] 08/21/2023 10:15 AM HOLLOW WARE MAKER Clinical Support Department of Palliative Care in [place], [place] [address] [place] [phone] Serenity Kelsey, P.A.-C. [address] [place] [phone] Meka Rinaldi D.N.P., R.N., [facility] documented as of this encounter Procedures Procedure Name Priority Date/Time Associated Diagnosis Comments FUNDUS PHOTOS - OU - BOTH EYES Routine 07/17/2023 11:52 AM HOLLOW WARE MAKER Hemorrhage Retinal Bilateral documented in this encounter Results * Fundus Photos - OU - Both Eyes (07/17/2023 11:52 AM HOLLOW WARE MAKER) Narrative OPHTHALMOLOGY IMAGING EXAM - 07/17/2023 7:03 PM HOLLOW WARE MAKER Right Eye Field of view is standard [...] documented as of this encounter Care Teams Client Server Developer Relationship Specialty Start Date End Date Elsewhere, Pcp PCP - General Family Medicine 06/17/23 documented as of this encounter
--- OUTSIDE RECORDS SUMMARY | 2023-08-09 19:22 | XMS_ITS | Encounter Summary ---
Author Name Unknown Organization [facility] Address [address] [place] [address] Care Team Providers Care Steam Locomotive Firer/Fireman Name Role Phone Elsewhere, Pcp Primary Care Provider Unavailabl e Reason for Referral * Outpatient (Routine) - Authorized Specialty Diagnoses / Procedures Referred By Mikki feliciano Referred To Contact Palliative Medicine Diagnoses Melanoma Trunk (HCC) Marija Olivas APRN, C.N.P., M.S.N. [address] [place] [phone] [facility] Referral ID Status Reason Start Date Expiration Date V isits Requested Visits Authorized [id number] Authorized 07/04/2023 07/03/2026 1 1 Scheduling Instructions With oncology appts STMAS TREE FARM MANAGER Encounter Details Date Type Department Care Team (Late st Contact Info) Description 07/04/2023 Clinical Communication Department of Palliative Care in [place], [place] [address] [place] [phone] Inés Wiley R.N. [address] [place] [phone] Social History Tobacco Use Types Packs/Day Years Used Date Smoking Tobacco: Never Passive Smoke Exposure: Never Smokeless Tobacco: Never Alcohol Use Standard Drinks/Week Comments Not Currently 6 (1 standard drink = 0.6 oz pur e alcohol) Occasional [facility] Utilities Answer Date Recorded In the past [...] your living situation today? I have a [facility] place to live 07/10/2023 Sex and Gender Information Value Date Recorded Sex Assigned at Female 05/31/2023 8:26 AM CHRISTMAS TREE FARM MANAGER Gender Identity Female 05/31/2023 8:26 AM CHRISTMAS TREE FARM MANAGER Sexual Orientation Straight 05/31/2023 8: 26 AM CHRISTMAS TREE FARM MANAGER documented as of this encounter Plan of Treatment Upcoming Encounters Date Type Department Care Team (Late st Contact Info) Description 08/19/2023 6:40 AM CHRISTMAS TREE FARM MANAGER Appointment Department of Laboratory Medicine and Pathology, [facility] in [place], [place] [address] [place] [phone] Pérez Zuniga M.D., Ph.D. [address] [place] [phone] 08/19/2023 7:00 AM CHRISTMAS TREE FARM MANAGER Ancillary Procedure Department of Cardiovascular Medicine in [place], [place] [address] [place] [phone] Pérez Zuniga M.D., Ph.D. [address] [place] [phone] 08/19/2023 9:00 AM CHRISTMAS TREE FARM MANAGER Appointment Department of Radiology, [facility] in [place], [place] [address] [place] [phone] Pérez Zuniga M.D., Ph.D. [address] [place] [phone] 08/19/2023 3:40 PM CHRISTMAS TREE FARM MANAGER Office Visit Department of Oncology in [address] [phone] Zhane Granados APRN, C.N.P. [address] [place] [phone] 08/21/2023 10:15 AM CHRISTMAS TREE FARM MANAGER Clinical Support Department of Palliative Care in [address] [phone] Serenity Kelsey, P.A.-C. [address] [place] [phone] Meka Rinaldi D.N.P., R.N., [facility] Scheduled Referrals Name Type Priority Associated Diagnoses Order Schedule Palliative Care nurse therapy visit (clinic) Outpatient Referral Routine Melanoma Trunk (HCC) Expected: 08/01/2023, Expires: 10/02/2024 documented as of this encounter Visit Diagnoses Diagnosis Melanoma Trunk (HCC)- Primary documented in this encounter Additional Health Concerns Infection Onset Date Last Indicated Resolved Time Protective Environment 06/04/2023 06/04/2023 documented as of this encounter Care Teams Steam Locomotive Firer/Fireman Relationship Specialty Start Date End Date Elsewhere, Pcp PCP - General Family Medicine 06/17/23 documented as of this encounter
--- OUTSIDE RECORDS SUMMARY | 2023-08-09 19:22 | XMS_ITS | Encounter Summary ---
Author Name Unknown Organization [facility] Address [address] [place] [address] Care Team Providers Care Hydraulic Jack Mechanic Name Role Phone Elsewhere, Pcp Primary Care [...] your living situation today? I have a [facility] place to live 07/10/2023 Sex and Gender Information Value Date Recorded Sex Assigned at Female 05/31/2023 8:26 AM SOCCER COMMENTATOR Gender Identity Female 05/31/2023 8:26 AM SOCCER COMMENTATOR Sexual Orientation Straight 05/31/2023 8: 26 AM SOCCER COMMENTATOR documented as of this encounter Plan of Treatment Upcoming Encounters Date Type Department Care Team (Late st Contact Info) Description 08/19/2023 6:40 AM SOCCER COMMENTATOR Appointment Department of Laboratory Medicine and Pathology, [facility] in [place], [place] [address] [place] [place] [phone] Pérez Zuniga M.D., Ph.D. [address] [place] [phone] 08/19/2023 7:00 AM SOCCER COMMENTATOR Ancillary Procedure Department of Cardiovascular Medicine in [place], [place] [address] [place] [place] [phone] Pérez Zuniga M.D., Ph.D. [address] [place] [phone] 08/19/2023 9:00 AM SOCCER COMMENTATOR Appointment Department of Radiology, [facility] in [place], [place] [address] [place] [phone] éPrez Zuniga M.D., Ph.D. [address] [place] [phone] 08/19/2023 3:40 PM SOCCER COMMENTATOR Office Visit Department of Oncology in [place], [place] [address] [place] [place] [phone] Zhane Granados APRN, C.N.P. [address] [place] [phone] 08/21/2023 10:15 AM SOCCER COMMENTATOR Clinical Support Department of Palliative Care in [place], [place] [address] [place] [address] [phone] Serenity Kelsey P.A.-Harsha. [address] [place] [address] [phone] Meka Rinaldi D.N.P., R.N., [facility] documented as of this encounter Procedures Procedure Name Priority Date/Time Associated Diagnosis Comments OPHTHALMOLOGY IMAGE EXAM Routine 07/17/2023 12:00 AM SOCCER COMMENTATOR documented in this encounter Results * Eyes Color-Ophthalmology Image Exam (07/17/2023 12:00 AM SOCCER COMMENTATOR) Narrative IIMS - 07/17/2023 11:51 AM SOCCER COMMENTATOR This order has been created and auto-finalized to support the import of images acquired without order. The clinical documentation to support these images can be found on the encounter that produced images. Provider Not In System IMG NON RAD IMAGI NG PROCEDURES IICA NA documented in this encounter Visit Diagnoses Not on filedocumented in this encounter Additional Health Concerns Infection Onset Date Last Indicated Resolved Time Protective Environment 06/04/2023 06/04/2023 documented as of this encounter Care Teams Hydraulic Jack Mechanic Relationship Specialty Start Date End Date Elsewhere, Pcp PCP - General Family Medicine 06/17/23 documented as of this encounter
--- OUTSIDE RECORDS SUMMARY | 2023-08-09 19:22 | XMS_ITS | Encounter Summary ---
Author Name Unknown Organization [facility] [place] Address [address] [place] [address] Care Team Providers Care Fleet Administrator Name Role Phone Elsewhere, Pcp Primary Care Provider Unavailabl e Reason for Visit * Reason Onset Date Comments Redirect Prescriptions 07/01/2023 Encounter Details Date Type Department Care Team (Latest Contact Info) Description 07/01/2023 Clinical Communication [facility] [place] [facility] [address] [place] [phone] Cherelle Brooks C.Ph.T. [address] [place] [phone] Redirect Prescriptions Social History Tobacco Use Types [...] Sex Assigned at Female 05/31/2023 8:26 AM BIOMETRICIAN Gender Identity Female 05/31/2023 8:26 AM BIOMETRICIAN Sexual Orientation Straight 05/31/2023 8: 26 AM BIOMETRICIAN documented as of this encounter Miscellaneous Notes * Addendum Note - Armani Nielson M.D., Ph.D. - 07/02/2023 3:46 PM BIOMETRICIAN Addended by: ARMANI NIELSON on: 07/02/2023 03:46 PM Modules accepted: Orders ETRICIAN documented in this encounter Plan of Treatment Upcoming Encounters Date Type Department Care Team (Late st Contact Info) Description 08/19/2023 6:40 AM BIOMETRICIAN Appointment Department of Laboratory Medicine and Pathology, [facility] in [place], [place] [address] [place] [phone] Armani Nielson M.D., Ph.D. [address] [place] [phone] 08/19/2023 7:00 AM BIOMETRICIAN Ancillary Procedure Department of Cardiovascular Medicine in [address] [phone] Armani Nielson M.D., Ph.D. [address] [place] [phone] 08/19/2023 9:00 AM BIOMETRICIAN Appointment Department of Radiology, [facility] in [place], [place] [address] [place] [phone] Armani Nielson M.D., Ph.D. [address] [place] [phone] 08/19/2023 3:40 PM BIOMETRICIAN Office Visit Department of Oncology in [place], [place] [address] [place] [phone] Zhane Granados, GAIL, C.N.P. [address] [place] [phone] 08/21/2023 10:15 AM BIOMETRICIAN Clinical Support Department of Palliative Care in [place], [place] 200 [place] [phone] Serenity Kelsey P.A.-C. 200 [place] [phone] Meka Rinaldi D.N.P., R.N., [facility] documented as of this encounter Visit Diagnoses Not on filedocumented in this encounter Additional Health Concerns Infection Onset Date Last Indicated Resolved Time Protective Environment 06/04/2023 06/04/2023 documented as of this encounter Care Teams Fleet Administrator Relationship Specialty Start Date End Date Elsewhere, Pcp PCP - General Family Medicine 06/17/23 documented as of this encounter
--- OUTSIDE RECORDS SUMMARY | 2023-08-09 19:22 | XMS_ITS | Encounter Summary ---
Author Name Unknown Organization [facility] Address [address] [place] [address] Care Team Providers Care Academic Advising Director Name Role Phone Elsewhere, Pcp Primary Care Provider Unavailabl e Reason for Referral * Outpatient (Routine) - Closed Specialty Diagnoses / Procedures Referred By Mikki t Referred To Contact Ophthalmology Phi Palm M.D., Ph.D. 200 [place] [phone] [facility] Referral ID Status Reason Start Date Expiration Date Visits Re quested Visits Authorized [id number] Closed 07/05/2023 07/04/2026 [address] Larose PROOFER Encounter Details Date Type Department Care Team (Latest Contact Info) Description 07/05/2023 2:30 PM MOTH PROOFER Comprehensive Visit Department of Ophthalmology in [place], [place] 200 [place] [phone] Wolfgang Larose M.D. [address] [place] [phone] Hemorrhage Retinal Bilateral (Primary Dx) Social History [...] Sex Assigned at Female 05/31/2023 8:26 AM MOTH PROOFER Gender Identity Female 05/31/2023 8:26 AM MOTH PROOFER Sexual Orientation Straight 05/31/2023 8: 26 AM MOTH PROOFER documented as of this encounter Progress Notes * Phi Palm M.D., Ph.D. - 07/05/2023 2:30 PM CST # Retinal hemorrhage, both eyes [facility] seeing for Dr. Larose to expedite care in [place] She had an asymptomatic visit to [facility] yesterday and was found to have [...] next available. She will be back in [place] Jul 17. Will request photography then. She will call us for any visualsymptoms in the interim. # Metastatic melanoma Dabrafenib at 75 QAM + 150 QPM and Trametinib at 2 mg QD, doing well with DXM 1 mg BID. PROOFER documented in this encounter Plan of Treatment Upcoming Encounters Date Type Department Care Team (Late st Contact Info) Description 08/19/2023 6:40 AM MOTH PROOFER Appointment Department of Laboratory Medicine and Pathology, [facility], in [place], [place] [address] [place] [phone] Pérez Zuniga M.D., Ph.D. [address] [place] [phone] 08/19/2023 7:00 AM MOTH PROOFER Ancillary Procedure Department of Cardiovascular Medicine in [place], [place] [address] [place] [phone] Pérez Zuniga M.D., Ph.D. [address] [place], [place] [phone] 08/19/2023 9:00 AM MOTH PROOFER Appointment Department of Radiology, [facility] in [place], [place] [address] [place] [phone] Pérez Zuniga M.D., Ph.D. [address] [place] [phone] 08/19/2023 3:40 PM MOTH PROOFER Office Visit Department of Oncology in [address] [phone] Zhane Granados, GAIL, C.N.P. [address] [place] [phone] 08/21/2023 10:15 AM MOTH PROOFER Clinical Support Department of Palliative Care in [address] [phone] Serenity Kelsey, P.A.-C. [address] [place] [address] [phone] Meka Rinaldi D.N.P., R.N., [facility] Scheduled Referrals Name Type Priority Associated Diagnoses Order Schedule Ophthalmology office visit (clinic) Outpatient Referral Routine Expected: 07/17/2023, Expires: 10/03/2024 documented as of this encounter Results * Fluorescein Angiography - OU - Both Eyes (07/17/2023 12:55 PM MOTH PROOFER) Narrative OPHTHALMOLOGY IMAGING EXAM - 07/17/2023 7:03 PM MOTH PROOFER Right Eye Dye used is fluorescein. Fluorescein dose given is normal. Left Eye Dye used is fluorescein. Fluorescein dose given is normal. Notes Interpretation in note Phi Palm M.D., Ph.D. TAYLA PHOTOSELVIN PEÑA Performing Organization Address City/[facility]/ZIP Co de Phone Number OPHTHALMOLOGY IMAGING EXAM * Fundus Photos - OU - Both Eyes (07/17/2023 11:52 AM MOTH PROOFER) Narrative OPHTHALMOLOGY IMAGING EXAM - 07/17/2023 7:03 PM MOTH PROOFER Right Eye Field of view is standard view. Fundus photo type obtained is Color. Left Eye Field of view is standard view. Fundus photo type obtained is Color. Notes Interpretation in note Phi Palm M.D., Ph.D. TAYLA PHOTOSELVIN PEÑA Performing Organization Address [facility] de Phone Number OPHTHALMOLOGY IMAGING EXAM documented in this encounter Visit Diagnoses Diagnosis Hemorrhage Retinal Bilateral- Primary Hemorrhage Retinal Bilateral Hemorrhage Retinal Bilateral documented in this encounter Additional Health Concerns Infection Onset Date Last Indicated Resolved Time Protective Environment 06/04/2023 06/04/2023 documented as of this encounter Care Teams Academic Advising Director Relationship Specialty Start Date End Date Elsewhere, Pcp PCP - General Family Medicine 06/17/23 documented as of this encounter
--- OUTSIDE RECORDS SUMMARY | 2023-08-09 19:22 | XMS_ITS | Encounter Summary ---
Author Name Unknown Organization [facility] Address [address] [place] [address] Care Team Providers Care Secure Software Assessor Name Role Phone Elsewhere, Pcp Primary Care Provider Unavailabl e Reason for Visit * Outpatient (Routine) - Closed Specialty Diagnoses / Procedures Referred By Mikki feliciano Referred To Contact Ophthalmology Phi Palm M.D., Ph.D. [address] [place] [address] [facility] Referral ID Status Reason Start Date Expiration Date Visits Re quested Visits Authorized [id number] Closed 07/05/2023 07/04/2026 1 1 Encounter Details Date Type Department Care Team (Latest Contact Info) Description 07/17/2023 11:45 AM RESERVATION SALES AGENT Office Visit Department of Ophthalmology in [place], [place] [address] [place] [phone] Wolfgang Larose M.D. [address] [place] [phone] Hemorrhage Retinal Bilateral (Primary Dx); Melanoma Trunk (HCC) Social History Tobacco Use Types Packs/Day Years Used Date Smoking Tobacco: Never Passive Smoke Exposure: Never Smokeless Tobacco: Never Alcohol Use Standard Drinks/Week Comments Not Currently 6 (1 standard drink = 0.6 oz pur e alcohol) Occasional [facility] Utilities Answer Date Recorded In [...] your living situation today? I have a [facility] place to live 07/10/2023 Sex and Gender Information Value Date Recorded Sex Assigned at Female 05/31/2023 8:26 AM RESERVATION SALES AGENT Gender Identity Female 05/31/2023 8:26 AM RESERVATION SALES AGENT Sexual Orientation Straight 05/31/2023 8: 26 AM RESERVATION SALES AGENT documented as of this encounter Progress [...] 1 mg BID. Discussed with Dr. Ingram RVATION SALES AGENT documented in this encounter Plan of Treatment Upcoming Encounters Date Type Department Care Team (Late st Contact Info) Description 08/19/2023 6:40 AM RESERVATION SALES AGENT Appointment Department of Laboratory Medicine and Pathology, [facility] in [address] [phone] Pérez Zuniga M.D., Ph.D. [address] [place] [phone] 08/19/2023 7:00 AM RESERVATION SALES AGENT Ancillary Procedure Department of Cardiovascular Medicine in [address] [phone] Pérez Zuniga M.D., Ph.D. [address] [place] [phone] 08/19/2023 9:00 AM RESERVATION SALES AGENT Appointment Department of Radiology, [facility] in [address] [phone] Pérez Zuniga M.D., Ph.D. [address] [place] [phone] 08/19/2023 3:40 PM RESERVATION SALES AGENT Office Visit Department of Oncology in [address] [phone] Zhane Granados APRN, C.N.P. [address] [place] [phone] 08/21/2023 10:15 AM RESERVATION SALES AGENT Clinical Support Department of Palliative Care in [place], [place] [address] [place] [phone] Serenity Kelsey P.A.-C. [address] [place] [phone] Meka Rinaldi D.N.P., R.N., [facility] documented as of this encounter Visit Diagnoses Diagnosis Hemorrhage Retinal Bilateral- Primary Melanoma Trunk (HCC) documented in this encounter Additional Health Concerns Infection Onset Date Last Indicated Resolved Time Protective Environment 06/04/2023 06/04/2023 documented as of this encounter Care Teams Secure Software Assessor Relationship Specialty Start Date End Date Elsewhere, Pcp PCP - General Family Medicine 06/17/23 documented as of this encounter
--- OUTSIDE RECORDS SUMMARY | 2023-08-09 19:22 | XMS_ITS | Encounter Summary ---
Author Name Unknown Organization [facility] Address [address] [place] [address] Care Team Providers Care Oriental Medicine Practitioner Name Role Phone Elsewhere, Pcp Primary Care Provider Unavailabl e Reason for Referral * Outpatient (Routine) - Closed Specialty Diagnoses / Procedures Referred By Mikki feliciano Referred To Contact Palliative Medicine Diagnoses Palliative Care Marija Olivas APRN, C.N.P., M.S.N. [address] [place] [phone] [facility] Referral ID Status Reason Start Date Expiration Date Visits Re quested Visits Authorized [id number] Closed 07/16/2023 07/15/2026 1 1 Scheduling Instructions Please schedule on Meka's personal calendar at 1 pm. Patient is aware. VIDEO visit. LAY TRIMMER Encounter Details Date Type Department Care Team (Late st Contact Info) Description 07/16/2023 Clinical Communication Department of Palliative Care in [place], [place] [address] [place] [phone] Meka Rinaldi D.N.P., R.N., [facility] Social History Tobacco Use Types Packs/Day Years Used Date Smoking Tobacco: Never Passive Smoke Exposure: Never Smokeless Tobacco: Never Alcohol Use Standard Drinks/Week Comments Not Currently 6 (1 standard drink = 0.6 oz pur e alcohol) Occasional [facility] Utilities Answer Date Recorded In the [...] living situation today? I have a [facility] place to live 07/10/2023 Sex and Gender Information Value Date Recorded Sex Assigned at Female 05/31/2023 8:26 AM DISPLAY TRIMMER Gender Identity Female 05/31/2023 8:26 AM DISPLAY TRIMMER Sexual Orientation Straight 05/31/2023 8: 26 AM DISPLAY TRIMMER documented as of this encounter Miscellaneous Notes * Telephone Encounter - Meka Rinaldi D.N.P., NINI Farley - 07/16/2023 11:34 AM CST ----- Message from Jo-Ann Mariscal sent at 07/16/2023 11:23 AM DISPLAY TRIMMER ----- Regarding: RE: Resilient Living Looks like we will need a new order for this. Please place order, I will watch for it. ----- Message ----- From: Meka Rinaldi D.N.P., NINI Farley Sent: 07/16/2023 10:58 AM DISPLAY TRIMMER To: Rst Pal Scheduling Subject: Resilient Living Please reschedule resilient living visit to Saturday, 07/26 at 1 pm. Video visit. Tony is aware. Thank you! ----- Message ----- From: Marilu Parikh R.N., CHPN Sent: 07/09/2023 1:43 PM DISPLAY TRIMMER To: Meka Rinaldi D.N.P., Martine lenny Jacobsen canceled Tony's RLP visit for 07/12. I sent her a portal message and let her know you would follow up on rescheduling when you are back in clinic! Thanks, Marilu LAY TRIMMER documented in this encounter Plan of Treatment Upcoming Encounters Date Type Department Care Team (Late st Contact Info) Description 08/19/2023 6:40 AM DISPLAY TRIMMER Appointment Department of Laboratory Medicine and Pathology, [facility], in [place], [place] [address] [place] [phone] Pérez Zuniga M.D., Ph.D. [address] [place] [phone] 08/19/2023 7:00 AM DISPLAY TRIMMER Ancillary Procedure Department of Cardiovascular Medicine in [place], [place] [address] [place] [phone] Pérez Zuniga M.D., Ph.D. [address] [place] [phone] 08/19/2023 9:00 AM DISPLAY TRIMMER Appointment Department of Radiology, [facility], in [place], [place] [address] [place] [phone] Pérez Zuniga M.D., Ph.D. [address] [place] [phone] 08/19/2023 3:40 PM DISPLAY TRIMMER Office Visit Department of Oncology in [place], [place] [address] [place] [phone] Zhane Granados APRN, C.N.P. [address] [place] [phone] 08/21/2023 10:15 AM DISPLAY TRIMMER Clinical Support Department of Palliative Care in [place], [place] [address] [place] [phone] Serenity Kelsey, P.A.-C. [address] [place] [phone] Meka Rinaldi D.N.P., R.N., [facility] Scheduled Referrals Name Type Priority Associated Diagnoses Order Schedule Palliative Care nurse therapy visit (clinic) Outpatient Referral Routine Palliative Care Expected: 07/26/2023, Expires: 10/14/2024 documented as of this encounter Visit Diagnoses Diagnosis Palliative Care- Primary documented in this encounter Additional Health Concerns Infection Onset Date Last Indicated Resolved Time Protective Environment 06/04/2023 06/04/2023 documented as of this encounter Care Teams Oriental Medicine Practitioner Relationship Specialty Start Date End Date Elsewhere, Pcp PCP - General Family Medicine 06/17/23 documented as of this encounter
--- OUTSIDE RECORDS SUMMARY | 2023-08-09 19:22 | XMS_ITS | Encounter Summary ---
Author Name Unknown Organization [facility] Address [address] [place] [address] Care Team Providers Care Barman Name Role Phone Elsewhere, Pcp Primary Care Provider Unavailabl e Encounter Details Date Type Department Care Team (Latest Contact Info) Description 07/04/2023 9:36 AM SENIOR ERP CONSULTANT - 07/04/2023 11:59 PM SENIOR ERP CONSULTANT Hospital Encounter Department of Laboratory Medicine and Pathology, [facility], in [place], [place] [address] [place] [address] Pérez Zuniga M.D., Ph.D. [address] [place] [phone] Melanoma Trunk (HCC); Secondary Malignant Neoplasm Bone (HCC); Other Instrumentation Engineering Technician Current Drug Therapy Discharge Disposition: Home or [...] Assigned at Female 05/31/2023 8:26 AM SENIOR ERP CONSULTANT Gender Identity Female 05/31/2023 8:26 AM SENIOR ERP CONSULTANT Sexual Orientation Straight 05/31/2023 8: 26 AM SENIOR ERP CONSULTANT documented as of this encounter Medications at [...] Contact Info) Description 08/19/2023 6:40 AM SENIOR ERP CONSULTANT Appointment Department of Laboratory Medicine and Pathology, [facility] in [place], [place] [address] [place] [phone] Pérez Zuniga M.D., Ph.D. [address] [place] [phone] 08/19/2023 7:00 AM SENIOR ERP CONSULTANT Ancillary Procedure Department of Cardiovascular Medicine in [address] [phone] Pérez Zuniga M.D., Ph.D. [address] [place] [phone] 08/19/2023 9:00 AM SENIOR ERP CONSULTANT Appointment Department of Radiology, [facility] in [place], [place] [address] [place] [phone] Pérez Zuniga M.D., Ph.D. [address] [place] [phone] 08/19/2023 3:40 PM SENIOR ERP CONSULTANT Office Visit Department of Oncology in [place], [place] [address] [place] [phone] Zhane Granados APRN, C.N.P. [address] [place] [phone] 08/21/2023 10:15 AM SENIOR ERP CONSULTANT Clinical Support Department of Palliative Care in [place], [place] [address] [place] [phone] Serenity Kelsey, PSantoshASantosh-C. 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) Other Instrumentation Engineering Technician Current Drug Therapy COMPREHENSIVE METABOLIC PANEL, S/P Routine 07/04/2023 9:49 AM SENIOR ERP CONSULTANT 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) Other [facility] Current Drug Therapy documented in this encounter Results * (ABNORMAL) CBC with Differential, Blood (07/04/2023 9:50 AM SENIOR ERP CONSULTANT) Pathologist [facility] Hemoglobin 8.2(L) 11.6 - 15.0 g/dL 07/04/2023 10:56 AM SENIOR ERP CONSULTANT [facility] Hematocrit 26.3(L) 35.5 - 44.9 % 07/04/2023 10:56 AM SENIOR ERP CONSULTANT [facility] Erythrocytes 2.62(L) 3.92 - 5.13 x10(12)/L 07/04/2023 10:56 AM SENIOR ERP CONSULTANT [facility] MCV 100.4(H) 78.2 - 97.9 fL 07/04/2023 10:56 AM SENIOR ERP CONSULTANT DH[facility] RBC Distrib Width 17.5(H) 12.2 - 16.1 % 07/04/2023 10:56 AM SENIOR ERP CONSULTANT DHPM Platelet Count 701(H) 157 - 371 x10(9)/L 07/04/2023 10:56 AM SENIOR ERP CONSULTANT DH[facility] Leukocytes 9.9(H) 3.4 - 9.6 x10(9)/L 07/04/2023 10:56 AM SENIOR ERP CONSULTANT DHPM Neutrophils 5.27 1.56 - 6.45 x10(9)/L 07/04/2023 10:56 AM SENIOR ERP CONSULTANT [facility] Lymphocytes 3.81(H) 0.95 - 3.07 x10(9)/L 07/04/2023 10:56 AM SENIOR ERP CONSULTANT DH[facility] Monocytes 0.63 0.26 - 0.81 x10(9)/L 07/04/2023 10:56 AM SENIOR ERP CONSULTANT DH[facility] Eosinophils 0.10 0.03 - 0.48 x10(9)/L 07/04/2023 10:56 AM SENIOR ERP CONSULTANT DH[facility] Basophils 0.12(H) 0.01 - 0.08 x10(9)/L 07/04/2023 10:56 AM SENIOR ERP CONSULTANT DH[facility] Blood (Blood, Venous) 07/04/2023 9:50 AM SENIOR ERP CONSULTANT 07/04/2023 10:11 AM SENIOR ERP CONSULTANT Pérez Zuniga M.D., Ph.D. LAB BLOO D ADD-ON Performing Organization Address City/State/[facility] Co de Phone Number [facility] [address] [place] [address], [facility] [address] [place] [address] * Thyroid Function [place] (07/04/2023 9:49 AM SENIOR ERP CONSULTANT) [facility] TSH, Sensitive 2.3 0.3 - 4.2 mIU/L 07/04/2023 11:05 AM SENIOR ERP CONSULTANT DTL Blood (Blood, Venous) 07/04/2023 9:49 AM SENIOR ERP CONSULTANT 07/04/2023 10:29 AM SENIOR ERP CONSULTANT Pérez Zuniga M.D., Ph.D. LAB BLOO D ADD-ON [facility] [address] [place] [address], [place] DTL [facility] [address] [place] [address] * (ABNORMAL) Comprehensive Metabolic Panel (07/04/2023 9:49 AM SENIOR ERP CONSULTANT) Potassium, S 4.7 3.6 - 5.2 mmol/L 07/04/2023 11:05 AM SENIOR ERP CONSULTANT DTL Sodium, S 137 135 - 145 mmol/L 07/04/2023 11:05 AM SENIOR ERP CONSULTANT DTL Chloride, S 103 98 - 107 mmol/L 07/04/2023 11:05 AM SENIOR ERP CONSULTANT DTL Bicarbonate, S 24 22 - 29 mmol/L 07/04/2023 11:05 AM SENIOR ERP CONSULTANT DTL Anion Gap 10 7 - 15 07/04/2023 11:05 AM SENIOR ERP CONSULTANT DTL BUN (Blood Urea Nitrogen), S 22(H) 6 - 21 mg/dL 07/04/2023 11:05 AM SENIOR ERP CONSULTANT DTL Creatinine 0.90 0.59 - 1.04 mg/dL 07/04/2023 11:05 AM SENIOR ERP CONSULTANT DTL Estimated GFR (eGFR) 80 >=60 mL/min/BS A 07/04/2023 11:05 AM SENIOR ERP CONSULTANT DTL Comment: Estimated GFR calculated using the 2020 CKD_EPI creatinine equation. Calcium, Total, S 9.9 8.6 - 10.0 mg/dL 07/04/2023 11:05 AM SENIOR ERP CONSULTANT DTL Glucose, S 98 70 - 140 mg/dL 07/04/2023 11:05 AM SENIOR ERP CONSULTANT DTL Protein, Total, S 7.7 6.3 - 7.9 g/dL 07/04/2023 11:05 AM SENIOR ERP CONSULTANT DTL Albumin, S 4.3 3.5 - 5.0 g/dL 07/04/2023 11:05 AM SENIOR ERP CONSULTANT DTL Aspartate Aminotransferase (AST), S 26 8 - 43 U/L 07/04/2023 11:05 AM SENIOR ERP CONSULTANT DTL Alkaline Phosphatase, S 229(H) 35 - 104 U/L 07/04/2023 11:05 AM SENIOR ERP CONSULTANT DTL Alanine Aminotransferase (ALT), S 24 7 - 45 U/L 07/04/2023 11:05 AM SENIOR ERP CONSULTANT DTL Bilirubin, Total, S 0.2 0.0 - 1.2 mg/dL 07/04/2023 11:05 AM SENIOR ERP CONSULTANT DTL Blood (Blood, Venous) 07/04/2023 9:49 AM SENIOR ERP CONSULTANT 07/04/2023 10:29 AM SENIOR ERP CONSULTANT Pérez Zuniga M.D., Ph.D. 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
--- OUTSIDE RECORDS SUMMARY | 2023-08-09 19:22 | XMS_ITS | Encounter Summary ---
Author Name Unknown Organization [facility] Address [address] [place] [address] Care Team Providers Care Rare/Endangered Species Specialist Name Role Phone Elsewhere, Pcp Primary Care Provider Unavailabl e Reason for Visit * Outpatient (Routine) - Closed Specialty Diagnoses / Procedures Referred By Mikki feliciano Referred To Contact Ophthalmology Diagnoses Hemorrhage Retinal Bilateral Procedures ANGIOGRAPHY - OU - BOTH EYES OPH PROC IV START Phi Palm M.D., Ph.D. [address] [place] [phone] Rst [facility] [address] [place] [phone] Referral ID Status Reason Start Date Expiration Date Visits Re quested Visits Authorized [id number] Closed 07/17/2023 07/16/2024 3 3 Encounter Details Date Type Department Care Team (Late st Contact Info) Description 07/17/2023 10:40 AM SPOOL HAULER Ancillary Procedure Department of Ophthalmology in [place], [place] [address] [place] [phone] Phi Palm M.D., Ph.D. [address] [place] [phone] Social History Tobacco Use Types Packs/Day Years Used Date Smoking Tobacco: Never Passive Smoke Exposure: Never Smokeless Tobacco: Never Alcohol Use Standard Drinks/Week Comments Not Currently 6 (1 standard drink = 0.6 oz pur e alcohol) Occasional [facility] Utilities Answer Date Recorded In the [...] your living situation today? I have a [facility] place to live 07/10/2023 Sex and Gender Information Value Date Recorded Sex Assigned at Female 05/31/2023 8:26 AM SPOOL HAULER Gender Identity Female 05/31/2023 8:26 AM SPOOL HAULER Sexual Orientation Straight 05/31/2023 8: 26 AM SPOOL HAULER documented as of this encounter Plan of Treatment Upcoming Encounters Date Type Department Care Team (Late st Contact Info) Description 08/19/2023 6:40 AM SPOOL HAULER Appointment Department of Laboratory Medicine and Pathology, [facility], in [place], [place] [address] [place] [phone] Pérez Zuniga M.D., Ph.D. [address] [place] [phone] 08/19/2023 7:00 AM SPOOL HAULER Ancillary Procedure Department of Cardiovascular Medicine in [place], [place] [address] [place] [phone] Pérez Zuniga M.D., Ph.D. [address] [place] [phone] 08/19/2023 9:00 AM SPOOL HAULER Appointment Department of Radiology, [facility], in [place], [place] [address] [place] [phone] Pérez Zuniga M.D., Ph.D. [address] [place] [phone] 08/19/2023 3:40 PM SPOOL HAULER Office Visit Department of Oncology in [place], [place] [address] [place] [phone] Zhane Granados, AIRCRAFT FUSELAGE FRAMER, C.N.P. [address] [place] [phone] 08/21/2023 10:15 AM SPOOL HAULER Clinical Support Department of Palliative Care in [place], [place] [address] [place] [phone] Serenity Kelsey, P.A.-C. [address] [place] [phone] Meka Rinaldi D.N.P., R.N., [facility] documented as of this encounter Procedures Procedure Name Priority Date/Time Associated Diagnosis Comments ANGIOGRAPHY - OU - BOTH EYES Routine 07/17/2023 12:55 PM SPOOL HAULER Hemorrhage Retinal Bilateral documented in this encounter Results * Fluorescein Angiography - OU - Both Eyes (07/17/2023 12:55 PM SPOOL HAULER) Narrative OPHTHALMOLOGY IMAGING EXAM - 07/17/2023 7:03 PM SPOOL HAULER Right Eye Dye used is fluorescein. Fluorescein [...] documented as of this encounter Care Teams Rare/Endangered Species Specialist Relationship Specialty Start Date End Date Elsewhere, Pcp PCP - General Family Medicine 06/17/23 documented as of this encounter
--- OUTSIDE RECORDS SUMMARY | 2023-08-09 19:22 | XMS_ITS | Encounter Summary ---
Author Name Unknown Organization [facility] Address [address] [place] [address] Care Team Providers Care Mold Dumper Name Role Phone Elsewhere, Pcp Primary Care Provider Unavailabl e Reason for Referral * Outpatient (Routine) - Authorized Specialty Diagnoses / Procedures Referred By Contac t Referred To Contact Diagnoses Melanoma Trunk (HCC) Nausea Procedures ECG 12 Lead Pérez Zuniga M.D., Ph.D. [address] [place] [phone] [facility] Referral ID Status Reason Start Date Expiration Date V isits Requested Visits Authorized [id number] Authorized 07/04/2023 07/03/2024 1 1 CATIONS CLERK * MRI/CAT/PET Scan (Routine) - Authorized Specialty Diagnoses / Procedures Referred By Contac t Referred To Contact Diagnoses Melanoma Trunk (HCC) Nausea Procedures PET CT Skull to Thigh FDG Pérez Zuniga M.D., Ph.D. [address] [place] [phone] [facility] Referral ID Status Reason Start Date Expiration Date V isits Requested Visits Authorized [id number] Authorized 07/04/2023 07/03/2024 1 1 CATIONS CLERK * Outpatient (Routine) - Authorized Specialty Diagnoses / Procedures Referred By Mikki feliciano Referred To Contact Oncology Pérez Zuniga M.D., Ph.D. [address] [place] [phone] [facility] Referral ID Status Reason Start Date Expiration Date V isits Requested Visits Authorized [id number] Authorized 07/04/2023 07/03/2026 1 1 CATIONS CLERK Reason for Visit * Outpatient (Routine) - Closed Specialty Diagnoses / Procedures Referred By Mikki feliciano Referred To Contact Oncology Pérez Zuniga M.D., Ph.D. [address] [place] [phone] [facility] Referral ID Status Reason Start Date Expiration Date Visits Re quested Visits Authorized [id number] Closed 06/20/2023 06/19/2026 1 1 Encounter Details Date Type Department Care Team (Late st Contact Info) Description 07/04/2023 12:20 PM ALLOCATIONS CLERK Office Visit Department of Oncology in [place], [place] [address] [place] [phone] Pérez Zuniga M.D., Ph.D. [address] [place] [phone] Melanoma Trunk (HCC) (Primary Dx); Nausea Social [...] Sex Assigned at Female 05/31/2023 8:26 AM ALLOCATIONS CLERK Gender Identity Female 05/31/2023 8:26 AM ALLOCATIONS CLERK Sexual Orientation Straight 05/31/2023 8: 26 AM ALLOCATIONS CLERK documented as of this encounter Progress Notes [...] and/or coordination of care as described above. CATIONS CLERK documented in this encounter Plan of Treatment Upcoming Encounters Date Type Department Care Team (Late st Contact Info) Description 08/19/2023 6:40 AM ALLOCATIONS CLERK Appointment Department of Laboratory Medicine and Pathology, [facility] in [place], [place] [address] [place] [phone] Pérez Zuniga M.D., Ph.D. [address] [place] [phone] 08/19/2023 7:00 AM ALLOCATIONS CLERK Ancillary Procedure Department of Cardiovascular Medicine in [place], [place] [address] [place] [phone] Pérez Zuniga M.D., Ph.D. [address] [place] [phone] 08/19/2023 9:00 AM ALLOCATIONS CLERK Appointment Department of Radiology, [facility] in [place], [place] [address] [place] [phone] Pérez Zuniga M.D., Ph.D. [address] [place] [phone] 08/19/2023 3:40 PM ALLOCATIONS CLERK Office Visit Department of Oncology in [place], [place] [address] [place] [phone] Zhane Granados APRN, C.N.P. [address] [place] [phone] 08/21/2023 10:15 AM ALLOCATIONS CLERK Clinical Support Department of Palliative Care in [place], [place] [address] [place] [phone] Serenity Kelsey PSantoshASantosh-Price [address] [place] [phone] Meka Rinaldi D.N.P., R.N., [facility] Scheduled Orders Name Type Priority Associated Diagnoses [...] Expected: 08/01/2023 (Approximate), Expires: 07/04/2024 Thyroid Function [facility] Routine Melanoma Trunk (HCC) Nausea Expected: [...] documented as of this encounter Care Teams Mold Dumper Relationship Specialty Start Date End Date Elsewhere, Pcp PCP - General Family Medicine 06/17/23 documented as of this encounter
--- OUTSIDE RECORDS SUMMARY | 2023-08-09 19:22 | XMS_ITS | Encounter Summary ---
Author Name Unknown Organization [facility] Address [address] [place] [address] Care Team Providers Care Punch Press Operator Name Role Phone Elsewhere, Pcp Primary Care Provider Unavailabl e Encounter Details Date Type Department Care Team (Late st Contact Info) Description 07/10/2023 Orders Only Department of Ophthalmology in [place], [place] [address] [place] [address] Ani Bashir [address] [place] [address] Social History Tobacco Use Types Packs/Day Years Used Date Smoking Tobacco: Never Passive Smoke Exposure: Never Smokeless Tobacco: Never Alcohol Use Standard Drinks/Week Comments Not Currently 6 (1 standard drink = 0.6 oz pur e alcohol) Occasional C Utilities Answer Date Recorded In the past 12 months has [employer], gas, oil, or water [employer] threatened to shut off services in your [...] your living situation today? I have a [facility] place to live 07/10/2023 Sex and Gender Information Value Date Recorded Sex Assigned at Female 05/31/2023 8:26 AM EVENTS ASSOCIATE Gender Identity Female 05/31/2023 8:26 AM EVENTS ASSOCIATE Sexual Orientation Straight 05/31/2023 8: 26 AM EVENTS ASSOCIATE documented as of this encounter Plan of Treatment Upcoming Encounters Date Type Department Care Team (Late st Contact Info) Description 08/19/2023 6:40 AM EVENTS ASSOCIATE Appointment Department of Laboratory Medicine and Pathology, [facility] in [place], [place] 200 [place] [address] Pérez Zuniga M.D., Ph.D. [address] [place] [phone] 08/19/2023 7:00 AM EVENTS ASSOCIATE Ancillary Procedure Department of Cardiovascular Medicine in [place], [place] [address] [place] [address] Pérez Zuniga M.D., Ph.D. [address] [place] [phone] 08/19/2023 9:00 AM EVENTS ASSOCIATE Appointment Department of Radiology, [facility], in [place], [place] [address] [place] [address] Pérez Zuniga M.D., Ph.D. [address] [place] [phone] 08/19/2023 3:40 PM EVENTS ASSOCIATE Office Visit Department of Oncology in [place], [place] [address] [place] [phone] Zhane Granados APRN, C.N.P. [address] [place] [phone] 08/21/2023 10:15 AM EVENTS ASSOCIATE Clinical Support Department of Palliative Care in [place], [place] [address] [place] [phone] Serenity Kelsey, P.A.-C. [address] [place] [phone] Meka Rinaldi D.N.P., R.N., [facility] documented as of this encounter Visit Diagnoses Not on filedocumented in this encounter Additional Health Concerns Infection Onset Date Last Indicated Resolved Time Protective Environment 06/04/2023 06/04/2023 documented as of this encounter Care Teams Punch Press Operator Relationship Specialty Start Date End Date Elsewhere, Pcp PCP - General Family Medicine 06/17/23 documented as of this encounter
--- OUTSIDE RECORDS SUMMARY | 2023-08-09 19:22 | XMS_ITS | Encounter Summary ---
Author Name Unknown Organization [facility] Address [address] [place] [address] Care Team Providers Care Film Mounter Name Role Phone Elsewhere, Pcp Primary Care Provider Unavailabl e Reason for Visit * Reason Onset Date Comments Sx - retinal hemorrhaging 07/05/2023 Encounter Details Date Type Department Care Team (Latest Contact Info) Description 07/05/2023 Clinical Communication Department of Oncology in [place], [place] [address] [place] [address] Anahy Amezcua, RSantoshN., O.C.N. [address] [place] [address] Sx - retinal hemorrhaging Social History Tobacco [...] Sex Assigned at Female 05/31/2023 8:26 AM TELETYPE TELEGRAPHER Gender Identity Female 05/31/2023 8:26 AM TELETYPE TELEGRAPHER Sexual Orientation Straight 05/31/2023 8: 26 AM TELETYPE TELEGRAPHER documented as of this encounter Miscellaneous Notes * Telephone Encounter - Efrain, Svetomir N, M.D., Ph.D. - 07/05/2023 8:52 AM CST I spoke to the patient. A routine eye exam at [facility] demonstrated minimal evidence of retinal pooling [...] Cota was very appreciative of the call. TYPE TELEGRAPHER documented in this encounter Plan of Treatment Upcoming Encounters Date Type Department Care Team (Late st Contact Info) Description 08/19/2023 6:40 AM TELETYPE TELEGRAPHER Appointment Department of Laboratory Medicine and Pathology, [place], [place] [address] [place] [phone] Pérez Zuniga M.D., Ph.D. [address] [place] [phone] 08/19/2023 7:00 AM TELETYPE TELEGRAPHER Ancillary Procedure Department of Cardiovascular Medicine in [place], [place] [address] [place] [phone] Pérez Zuniga M.D., Ph.D. [address] [place] [phone] 08/19/2023 9:00 AM TELETYPE TELEGRAPHER Appointment Department of Radiology, [facility] in [place], [place] [address] [place] [phone] Pérez Zuniga M.D., Ph.D. [address] [place] [phone] 08/19/2023 3:40 PM TELETYPE TELEGRAPHER Office Visit Department of Oncology in [place], [place] [address] [place] [phone] Zhane Granados APRN, C.N.P. [address] [place] [phone] 08/21/2023 10:15 AM TELETYPE TELEGRAPHER Clinical Support Department of Palliative Care in [place], [place] [address] [place] [phone] Serenity Kelsey, P.A.-C. [address] [place] [phone] Meka Rinaldi D.N.P., R.N., [facility] documented as of this encounter Visit Diagnoses Not on filedocumented in this encounter Additional Health Concerns Infection Onset Date Last Indicated Resolved Time Protective Environment 06/04/2023 06/04/2023 documented as of this encounter Care Teams Film Mounter Relationship Specialty Start Date End Date Elsewhere, Pcp PCP - General Family Medicine 06/17/23 documented as of this encounter
--- OUTSIDE RECORDS SUMMARY | 2023-08-09 19:22 | XMS_ITS | Encounter Summary ---
Author Name Unknown Organization [facility] Address [address] [place] [address] Care Team Providers Care Sailboat Captain Name Role Phone Elsewhere, Pcp Primary Care Provider Unavailabl e Reason for Visit * Outpatient (Routine) - Closed Specialty Diagnoses / Procedures Referred By Mikki feliciano Referred To Contact Ophthalmology Diagnoses Hemorrhage Retinal Bilateral Procedures ANGIOGRAPHY - OU - BOTH EYES OPH PROC IV START Phi Palm M.D., Ph.D. [address] [place] [phone] Rst Oph Husser [address] [place] [phone] Referral ID Status Reason Start Date Expiration Date Visits Re quested Visits Authorized [id number] Closed 07/17/2023 07/16/2024 3 3 Encounter Details Date Type Department Care Team (Latest Contact Info) Description 07/17/2023 10:00 AM INSURANCE DEFENSE ATTORNEY Procedure visit Department of Ophthalmology in [place], [place] [address] [place] [phone] Phi Palm M.D., Ph.D. [address] [place] [phone] Suleiman Vargas Hemorrhage Retinal Bilateral Social History Tobacco Use Types Packs/Day Years Used Date Smoking Tobacco: Never Passive Smoke Exposure: Never Smokeless Tobacco: Never Alcohol Use Standard Drinks/Week Comments Not Currently 6 (1 standard drink = 0.6 oz pur e alcohol) Occasional [facility] Utilities Answer Date Recorded In the past [...] your living situation today? I have a [facility] place to live 07/10/2023 Sex and Gender Information Value Date Recorded Sex Assigned at Female 05/31/2023 8:26 AM INSURANCE DEFENSE ATTORNEY Gender Identity Female 05/31/2023 8:26 AM INSURANCE DEFENSE ATTORNEY Sexual Orientation Straight 05/31/2023 8: 26 AM INSURANCE DEFENSE ATTORNEY documented as of this encounter Progress Notes [...] CREATININE 0.90 07/04/2023 Adverse reaction noted: NONE. RANCE DEFENSE ATTORNEY documented in this encounter Plan of Treatment Upcoming Encounters Date Type Department Care Team (Late st Contact Info) Description 08/19/2023 6:40 AM INSURANCE DEFENSE ATTORNEY Appointment Department of Laboratory Medicine and Pathology, [facility] in [place], [place] [address] [place] [phone] Pérez Zuniga M.D., Ph.D. [address] [place] [phone] 08/19/2023 7:00 AM INSURANCE DEFENSE ATTORNEY Ancillary Procedure Department of Cardiovascular Medicine in [address] [phone] Pérez Zuniga M.D., Ph.D. [address] [place] [phone] 08/19/2023 9:00 AM INSURANCE DEFENSE ATTORNEY Appointment Department of Radiology, [facility] in [place], [place] [address] [place] [phone] Pérez Zuniga M.D., Ph.D. [address] [place] [phone] 08/19/2023 3:40 PM INSURANCE DEFENSE ATTORNEY Office Visit Department of Oncology in [place], [place] [address] [place] [phone] Zhane Granados APRN, C.N.P. [address] [place] [phone] 08/21/2023 10:15 AM INSURANCE DEFENSE ATTORNEY Clinical Support Department of Palliative Care in [place], [place] [address] [place] [phone] Serenity Kelsey P.A.-C. [address] [place] [phone] Meka Rinaldi D.N.Dina., R.N., [facility] documented as of this encounter Procedures Procedure Name Priority Date/Time Associated Diagnosis Comments ANGIOGRAPHY - OU - BOTH EYES Routine 07/17/2023 12:55 PM INSURANCE DEFENSE ATTORNEY Hemorrhage Retinal Bilateral documented in this encounter Results * Fluorescein Angiography - OU - Both Eyes (07/17/2023 12:55 PM INSURANCE DEFENSE ATTORNEY) Narrative OPHTHALMOLOGY IMAGING EXAM - 07/17/2023 7:03 PM INSURANCE DEFENSE ATTORNEY Right Eye Dye used is fluorescein. Fluorescein [...] Sat07/10/23 at 0748 Given 07/17/2023 12:43 PM INSURANCE DEFENSE ATTORNEY 3 mL Inactive Administered Medications - up to 3 most recent administrations Medication Order MAR Action Action Date Dose Rate Site fluorescein 100 mg/mL (10 %) injection 500 mg (AK-FLUOR/FLUORESCEIN) 500 mg, intravenous, Once, On Sat07/10/23 at 0815, For 1 dose Given 07/17/2023 12:42 PM INSURANCE DEFENSE ATTORNEY 500 mg documented in this encounter Additional Health Concerns Infection Onset Date Last Indicated Resolved Time Protective Environment 06/04/2023 06/04/2023 documented as of this encounter Care Teams Sailboat Captain Relationship Specialty Start Date End Date Elsewhere, Pcp PCP - General Family Medicine 06/17/23 documented as of this encounter
--- OUTSIDE RECORDS SUMMARY | 2023-08-09 19:23 | XMS_ITS | Encounter Summary ---
Author Name Unknown Organization [facility] Address [address] [place] [address] Care Team Providers Care Managing Consultant Clinical Professor Name Role Phone Elsewhere, Pcp Primary Care Provider Unavailabl e Reason for Visit * Reason Onset Date Comments Rx Denial 06/24/2023 XTAMPZA ER 9 MG CAPSULES Encounter Details Date Type Department Care Team (Latest Contact Info) Description 06/24/2023 Clinical Communication Department of Palliative Care in [place], [place] [address] [place] [address] Valentine Kelsey M.D., M.S. [address] [place] [phone] Rx Denial (XTAMPZA ER 9 MG CAPSULES) [...] Assigned at Female 05/31/2023 8:26 AM LABOR CONTRACT ANALYST Gender Identity Female 05/31/2023 8:26 AM LABOR CONTRACT ANALYST Sexual Orientation Straight 05/31/2023 8: 26 AM LABOR CONTRACT ANALYST documented as of this encounter Miscellaneous Notes * Telephone Encounter - Rachelle Oliver R.N. - 06/24/2023 4:28 PM LABOR CONTRACT ANALYST Medication changed to MS Contin per Dr. Kelsey R CONTRACT ANALYST * Telephone Encounter - Reyna Nelson I. [...] Release Rx: Open this encounter, go to onkea, and click on the medication. If the blue ???Release Rx?? button appears as an option, click to release the prescription. If the blue Release Rx button is not visible, the Rx has already been released to the pharmacy. If you have questions, please reply to [facility]. Thank you, The [facility] Team R CONTRACT ANALYST documented in this encounter Plan of Treatment Upcoming Encounters Date Type Department Care Team (Late st Contact Info) Description 08/19/2023 6:40 AM LABOR CONTRACT ANALYST Appointment Department of Laboratory Medicine and Pathology, [facility] in [place], [place] [address] [place] [address] Pérez Zuniga M.D., Ph.D. [address] [place] [phone] 08/19/2023 7:00 AM LABOR CONTRACT ANALYST Ancillary Procedure Department of Cardiovascular Medicine in [place], [place] [address] [place] [address] Pérez Zuniga M.D., Ph.D. [address] [place] [phone] 08/19/2023 9:00 AM LABOR CONTRACT ANALYST Appointment Department of Radiology, [facility], in [place], [place] [address] [place] [address] Pérez Zuniga M.D., Ph.D. [address] [place] [phone] 08/19/2023 3:40 PM LABOR CONTRACT ANALYST Office Visit Department of Oncology in [place], [place] [address] [place] [phone] Zhane Granados, BAGGER AND STOCK HANDLER HELPER, C.N.P. [address] [place] [phone] 08/21/2023 10:15 AM LABOR CONTRACT ANALYST Clinical Support Department of Palliative Care in [place], [place] [address] [place] [phone] Serenity Kelsey, P.A.-C. [address] [place] [phone] Meka Rinaldi D.N.P., R.N., [facility] documented as of this encounter Visit Diagnoses Not on filedocumented in this encounter Additional Health Concerns Infection Onset Date Last Indicated Resolved Time Protective Environment 06/04/2023 06/04/2023 documented as of this encounter Care Teams Managing Consultant Clinical Professor Relationship Specialty Start Date End Date Elsewhere, Pcp PCP - General Family Medicine 06/17/23 documented as of this encounter
--- OUTSIDE RECORDS SUMMARY | 2023-08-09 19:23 | XMS_ITS | Encounter Summary ---
Author Name Unknown Organization [facility] Address [address] [place] [address] Care Team Providers Care Scrap Bunch Maker Name Role Phone Unavailable Primary Care Provider Unavailabl e Reason for Visit * Reason Onset Date Comments Specialty Medication Delivery 06/05/2023 Encounter Details Date Type Department Care Team (Latest Contact Info) Description 06/05/2023 Clinical Communication [facility] [address] [place] [phone] Joanne Yoo C.Ph.T. Specialty Medication Delivery Social [...] Sex Assigned at Female 05/31/2023 8:26 AM BAG MENDER Gender Identity Female 05/31/2023 8:26 AM BAG MENDER Sexual Orientation Straight 05/31/2023 8: 26 AM BAG MENDER documented as of this encounter Plan of Treatment Upcoming Encounters Date Type Department Care Team ( st Contact Info) Description 08/19/2023 6:40 AM BAG MENDER Appointment Department of Laboratory Medicine and Pathology, [facility] in [place], [place] [address] [place] [phone] Pérez Zuniga M.D., Ph.D. [address] [place] [phone] 08/19/2023 7:00 AM BAG MENDER Ancillary Procedure Department of Cardiovascular Medicine in [place], [place] [address] [place] [phone] Pérez Zuniga M.D., Ph.D. [address] [place] [phone] 08/19/2023 9:00 AM BAG MENDER Appointment Department of Radiology, [facility] in [place], [place] [address] [place] [phone] Pérez Zuniga M.D., Ph.D. [address] [place] [phone] 08/19/2023 3:40 PM BAG MENDER Office Visit Department of Oncology in [address] [phone] Zhane Granados, SAFETY ENGINEER, C.N.P. [address] [place] [phone] 08/21/2023 10:15 AM BAG MENDER Clinical Support Department of Palliative Care in [place], [place] [address] [place] [phone] Serenity Kelsey, P.A.-C. [address] [place] [phone] Meka Rinaldi D.N.P., R.N., [facility] documented as of this encounter Visit Diagnoses Not on filedocumented in this encounter Additional Health Concerns Infection Onset Date Last Indicated Resolved Time Protective Environment 06/04/2023 06/04/2023 documented as of this encounter
--- OUTSIDE RECORDS SUMMARY | 2023-08-09 19:23 | XMS_ITS | Encounter Summary ---
Author Name Unknown Organization [facility] Address [address] [place] [address] Care Team Providers Care Software Development Leader Name Role Phone Elsewhere, Pcp Primary Care Provider Unavailabl e Reason for Visit * Reason Onset Date Comments Pre-visit Intake 06/17/2023 Encounter Details Date Type Department Care Team (Latest Contact Info) Description 06/17/2023 7:00 AM CEMENTING BULK MATERIAL OPERATOR Clinical Communication Virtual Review in [address] [address] Pre-visit Intake Social History Tobacco [...] Sex Assigned at Female 05/31/2023 8:26 AM CEMENTING BULK MATERIAL OPERATOR Gender Identity Female 05/31/2023 8:26 AM CEMENTING BULK MATERIAL OPERATOR Sexual Orientation Straight 05/31/2023 8: 26 AM CEMENTING BULK MATERIAL OPERATOR documented as of this encounter Plan of Treatment Upcoming Encounters Date Type Department Care Team (Late st Contact Info) Description 08/19/2023 6:40 AM CEMENTING BULK MATERIAL OPERATOR Appointment Department of Laboratory Medicine and Pathology, [facility] in [place], [place] [address] [place] [phone] Pérez Zuniga M.D., Ph.D. [address] [place] [phone] 08/19/2023 7:00 AM CEMENTING BULK MATERIAL OPERATOR Ancillary Procedure Department of Cardiovascular Medicine in [place], [place] [address] [place] [phone] Pérez Zuniga M.D., Ph.D. [address] [place] [phone] 08/19/2023 9:00 AM CEMENTING BULK MATERIAL OPERATOR Appointment Department of Radiology, [facility] in [place], [place] [address] [place] [phone] Pérez Zuniga M.D., Ph.D. [address] [place] [phone] 08/19/2023 3:40 PM CEMENTING BULK MATERIAL OPERATOR Office Visit Department of Oncology in [place], [place] [address] [place] [phone] Zhane Granados, GUARDIAN FAMILY MEMBER, C.N.P. [address] [place] [phone] 08/21/2023 10:15 AM CEMENTING BULK MATERIAL OPERATOR Clinical Support Department of Palliative Care in [place], [place] [address] [place] [phone] Serenity Kelsey, P.A.-C. [address] [place] [phone] Meka Rinaldi D.N.P., R.N., [facility] documented as of this encounter Visit Diagnoses Not on filedocumented in this encounter Additional Health Concerns Infection Onset Date Last Indicated Resolved Time Protective Environment 06/04/2023 06/04/2023 documented as of this encounter Care Teams Software Development Leader Relationship Specialty Start Date End Date Elsewhere, Pcp PCP - General Family Medicine 06/17/23 documented as of this encounter
--- OUTSIDE RECORDS SUMMARY | 2023-08-09 19:23 | XMS_ITS | Encounter Summary ---
Author Name Unknown Organization [facility] Address [address] [place] [address] Care Team Providers Care Flatbed Owner Operator Name Role Phone Elsewhere, Pcp Primary Care Provider Unavailabl e Encounter Details Date Type Department Care Team (Latest Contact Info) Description 06/20/2023 11:46 AM DOG HAIR CLIPPER - 06/20/2023 12:06 PM DOG HAIR CLIPPER Hospital Encounter Department of Laboratory Medicine and Pathology, [facility], in [place], [place] [address] [place] [address] Pérez Zuniga M.D., Ph.D. [address] [place] [phone] Melanoma Trunk (HCC); Secondary Malignant Neoplasm Bone [...] Sex Assigned at Female 05/31/2023 8:26 AM DOG HAIR CLIPPER Gender Identity Female 05/31/2023 8:26 AM DOG HAIR CLIPPER Sexual Orientation Straight 05/31/2023 8: 26 AM DOG HAIR CLIPPER documented as of this encounter Medications at [...] st Contact Info) Description 08/19/2023 6:40 AM DOG HAIR CLIPPER Appointment Department of Laboratory Medicine and Pathology, [facility] in [place], [place] [address] [place] [phone] Pérez Zuniga M.D., Ph.D. [address] [place] [phone] 08/19/2023 7:00 AM DOG HAIR CLIPPER Ancillary Procedure Department of Cardiovascular Medicine in [place], [place] [address] [place] [phone] Pérez Zuniga M.D., Ph.D. [address] [place] [phone] 08/19/2023 9:00 AM DOG HAIR CLIPPER Appointment Department of Radiology, [facility] in [place], [place] [address] [place] [phone] Pérez Zuniga M.D., Ph.D. [address] [place] [phone] 08/19/2023 3:40 PM DOG HAIR CLIPPER Office Visit Department of Oncology in [address] [phone] Zhane Granados APRN, C.N.P. [address] [place] [phone] 08/21/2023 10:15 AM DOG HAIR CLIPPER Clinical Support Department of Palliative Care in [address] [phone] Serenity Kelsey, P.A.-C. 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) COMPREHENSIVE METABOLIC PANEL, S/P Routine 06/20/2023 12:01 PM DOG HAIR CLIPPER 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 LAB BLOO D BANK TEST ORDERABLES [facility] [address] [place] [address], [facility] ETRM [facility] [address] [place] [address] * Thyroid Function [place] (06/20/2023 12:01 PM DOG HAIR CLIPPER) TSH, Sensitive 1.5 0.3 - 4.2 mIU/L 06/20/2023 1:14 PM DOG HAIR CLIPPER DTL Blood (Blood, Venous) 06/20/2023 12:01 PM DOG HAIR CLIPPER 06/20/2023 12:41 PM DOG HAIR CLIPPER Pérez Zuniga M.D., Ph.D. LAB BLOO D ADD-ON [facility] [address] [place] [address], [facility] DTL [facility] [address] [place] [address] * (ABNORMAL) Comprehensive Metabolic Panel (06/20/2023 12:01 PM DOG HAIR CLIPPER) [facility] Potassium, S 4.0 3.6 - 5.2 mmol/L 06/20/2023 1:14 PM DOG HAIR CLIPPER DTL Sodium, S 137 135 - 145 mmol/L 06/20/2023 1:14 PM DOG HAIR CLIPPER DTL Chloride, S 101 98 - 107 mmol/L 06/20/2023 1:14 PM DOG HAIR CLIPPER DTL Bicarbonate, S 20(L) 22 - 29 mmol/L 06/20/2023 1:14 PM DOG HAIR CLIPPER DTL Anion Gap 16(H) 7 - 15 06/20/2023 1:14 PM DOG HAIR CLIPPER DTL BUN (Blood Urea Nitrogen), S 27(H) 6 - 21 mg/dL 06/20/2023 1:14 PM DOG HAIR CLIPPER DTL Creatinine 0.94 0.59 - 1.04 mg/dL 06/20/2023 1:14 PM DOG HAIR CLIPPER DTL Estimated GFR (eGFR) 76 >=60 mL/min/BS A 06/20/2023 1:14 PM DOG HAIR CLIPPER DTL Comment: Estimated GFR calculated using the 2020 CKD_EPI creatinine equation. Calcium, Total, S 9.7 8.6 - 10.0 mg/dL 06/20/2023 1:14 PM DOG HAIR CLIPPER DTL Glucose, S 101 70 - 140 mg/dL 06/20/2023 1:14 PM DOG HAIR CLIPPER DTL Protein, Total, S 7.7 6.3 - 7.9 g/dL 06/20/2023 1:14 PM DOG HAIR CLIPPER DTL Albumin, S 4.1 3.5 - 5.0 g/dL 06/20/2023 1:14 PM DOG HAIR CLIPPER DTL Aspartate Aminotransferase (AST), S 26 8 - 43 U/L 06/20/2023 1:14 PM DOG HAIR CLIPPER DTL Alkaline Phosphatase, S 277(H) 35 - 104 U/L 06/20/2023 1:14 PM DOG HAIR CLIPPER DTL Alanine Aminotransferase (ALT), S 22 7 - 45 U/L 06/20/2023 1:14 PM DOG HAIR CLIPPER DTL Bilirubin, Total, S 0.2 0.0 - 1.2 mg/dL 06/20/2023 1:14 PM DOG HAIR CLIPPER DTL Blood (Blood, Venous) 06/20/2023 12:01 PM DOG HAIR CLIPPER 06/20/2023 12:41 PM DOG HAIR CLIPPER Pérez Zuniga M.D., Ph.D. LAB BLOO D ADD-ON [facility] [address] [place] [address], [facility] [address] [place] [address] * (ABNORMAL) CBC with Differential, Blood (06/20/2023 12:01 PM DOG HAIR CLIPPER) Hemoglobin 7.6(L) 11.6 - 15.0 g/dL 06/20/2023 1:15 PM DOG HAIR CLIPPER DTL Hematocrit 24.1(L) 35.5 - 44.9 % 06/20/2023 1:15 PM DOG HAIR CLIPPER DTL Erythrocytes 2.49(L) 3.92 - 5.13 x10(12)/L 06/20/2023 1:15 PM DOG HAIR CLIPPER DTL MCV 96.8 78.2 - 97.9 fL 06/20/2023 1:15 PM DOG HAIR CLIPPER DTL RBC Distrib Width 16.2(H) 12.2 - 16.1 % 06/20/2023 1:15 PM DOG HAIR CLIPPER DTL Platelet Count 496(H) 157 - 371 x10(9)/L 06/20/2023 1:15 PM DOG HAIR CLIPPER DTL Leukocytes 7.9 3.4 - 9.6 x10(9)/L 06/20/2023 1:15 PM DOG HAIR CLIPPER DTL Neutrophils 4.72 1.56 - 6.45 x10(9)/L 06/20/2023 1:15 PM DOG HAIR CLIPPER DHPM Lymphocytes 1.98 0.95 - 3.07 x10(9)/L 06/20/2023 1:15 PM DOG HAIR CLIPPER DTL Monocytes 0.90(H) 0.26 - 0.81 x10(9)/L 06/20/2023 1:15 PM DOG HAIR CLIPPER DTL Eosinophils 0.22 0.03 - 0.48 x10(9)/L 06/20/2023 1:15 PM DOG HAIR CLIPPER DTL Basophils 0.07 0.01 - 0.08 x10(9)/L 06/20/2023 1:15 PM DOG HAIR CLIPPER DTL Blood (Blood, Venous) 06/20/2023 12:01 PM DOG HAIR CLIPPER 06/20/2023 12:26 PM DOG HAIR CLIPPER Pérez Zuniga M.D., Ph.D. 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
--- OUTSIDE RECORDS SUMMARY | 2023-08-09 19:23 | XMS_ITS | Encounter Summary ---
Author Name Unknown Organization [facility] Address [address] [place] [address] Care Team Providers Care Underwater Photographer Name Role Phone Unavailable Primary Care Provider Unavailabl e Encounter Details Date Type Department Care Team (Late st Contact Info) Description 06/04/2023 4:40 PM ETL LEAD Education Department of Oncology in [place], [place] [address] [place] [phone] Pérez Zuniga M.D., Ph.D. [address] [place] [phone] Anahy Amezcua R.N., O.C.N. [address] [place] [phone] Melanoma Trunk (HCC); Secondary Malignant Neoplasm Bone [...] Sex Assigned at Female 05/31/2023 8:26 AM ETL LEAD Gender Identity Female 05/31/2023 8:26 AM ETL LEAD Sexual Orientation Straight 05/31/2023 8: 26 AM ETL LEAD documented as of this encounter Progress Notes * Anahy Amezcua R.N., O.C.N. - 06/04/2023 4:40 PM CST Cancer Treatment Education Visit REASON FOR VISIT Met with Tony Cota for cancer treatment education. ASSESSMENT/PLAN Patient education provided per the cancer treatment letter attached in encounters. Printed materials provided to patient per Education Tab. Answered questions. Patient verbalized understanding and voiced appreciation for education. LEAD documented in this encounter Plan of Treatment Upcoming Encounters Date Type Department Care Team (Late st Contact Info) Description 08/19/2023 6:40 AM ETL LEAD Appointment Department of Laboratory Medicine and Pathology, [facility] in [address] [phone] Pérez Zuniga M.D., Ph.D. [address] [place] [phone] 08/19/2023 7:00 AM ETL LEAD Ancillary Procedure Department of Cardiovascular Medicine in [address] [phone] éPrez Zuniga M.D., Ph.D. [address] [place] [phone] 08/19/2023 9:00 AM ETL LEAD Appointment Department of Radiology, [facility] in [place], [place] [address] [place] [phone] Pérez Zuniga M.D., Ph.D. [address] [place] [phone] 08/19/2023 3:40 PM ETL LEAD Office Visit Department of Oncology in [address] [phone] Zhane Granados APRN, C.N.P. [address] [place] [phone] 08/21/2023 10:15 AM [facility] Clinical Support Department of Palliative Care in [place], [place] [address] [place] [phone] Serenity Kelsey, PSantoshA.-C. 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
--- OUTSIDE RECORDS SUMMARY | 2023-08-09 19:23 | XMS_ITS | Encounter Summary ---
Author Name Unknown Organization [facility] Address [address] [place] [address] Care Team Providers Care Analog Design Engineer Name Role Phone Elsewhere, Pcp Primary Care Provider Unavailabl e Reason for Visit * Outpatient (Routine) - Closed Specialty Diagnoses / Procedures Referred By Mikki t Referred To Contact Oncology Laura Dalal M.D. [address] [place] [phone] [facility] Referral ID Status Reason Start Date Expiration Date Visits Re quested Visits Authorized [id number] Closed 06/10/2023 06/09/2026 1 1 Encounter Details Date Type Department Care Team (Late st Contact Info) Description 06/20/2023 3:00 PM OFFICE CASHIER Nurse Only Department of Oncology in [place], [place] [address] [place] [phone] Laura Dalal M.D. [address] [place] [phone] Akosua Liz D.N.P., R.N. [address] [place] [phone] Social History Tobacco Use Types Packs/Day Years [...] Sex Assigned at Female 05/31/2023 8:26 AM OFFICE CASHIER Gender Identity Female 05/31/2023 8:26 AM OFFICE CASHIER Sexual Orientation Straight 05/31/2023 8: 26 AM OFFICE CASHIER documented as of this encounter Progress Notes * Akosua Liz D.N.P., R.N., O.C.N. - 06/20/2023 3:00 PM CST INTEGRATIVE ONCOLOGY NURSE FOLLOW UP NOTE Tony Cota is seen in the [facility] for a nurse [...] Liz DNP, RN, ONC [facility] CE CASHIER documented in this encounter Plan of Treatment Upcoming Encounters Date Type Department Care Team (Late st Contact Info) Description 08/19/2023 6:40 AM OFFICE CASHIER Appointment Department of Laboratory Medicine and Pathology, [address] [phone] Pérez Zuniga M.D., Ph.D. [address] [place] [phone] 08/19/2023 7:00 AM OFFICE CASHIER Ancillary Procedure Department of Cardiovascular Medicine in [address] [phone] Pérez Zuniga M.D., Ph.D. [address] [place] [phone] 08/19/2023 9:00 AM OFFICE CASHIER Appointment Department of Radiology, [facility] in [address] [phone] Pérez Zuniga M.D., Ph.D. [address] [place] [phone] 08/19/2023 3:40 PM OFFICE CASHIER Office Visit Department of Oncology in [place], [place] [address] [place] [phone] Zhane Granados APRN, C.N.P. [address] [place] [phone] 08/21/2023 10:15 AM OFFICE CASHIER Clinical Support Department of Palliative Care in [place], [place] [address] [place] [phone] Serenity Kelsey, PKarin-C. [address] [place] [phone] Meka Rinaldi D.N.P., R.N., [facility] documented as of this encounter Visit Diagnoses Not on filedocumented in this encounter Additional Health Concerns Infection Onset Date Last Indicated Resolved Time Protective Environment 06/04/2023 06/04/2023 documented as of this encounter Care Teams Analog Design Engineer Relationship Specialty Start Date End Date Elsewhere, Pcp PCP - General Family Medicine 06/17/23 documented as of this encounter
--- OUTSIDE RECORDS SUMMARY | 2023-08-09 19:23 | XMS_ITS | Encounter Summary ---
Author Name Unknown Organization [facility] Address [address] [place] [address] Care Team Providers Care Recycling Collections Driver Name Role Phone Elsewhere, Pcp Primary Care Provider Unavailabl e Reason for Referral * Medication Prior Authorization - Closed Specialty Diagnoses / Procedures Referred By Mikki feliciano Referred To Contact Valentine Dolan M.D., M.S. [address] [place] [address] Referral ID Status Reason Start Date Expiration Date Visits Re quested Visits Authorized [id number] Closed 1 1 MEASURER * Outpatient (Routine) - Closed Specialty Diagnoses / Procedures Referred By Mikki feliciano Referred To Contact Palliative Medicine Valentine Dolan M.D., M.S. [address] [place] [phone] [facility] Referral ID Status Reason Start Date Expiration Date Visits Re quested Visits Authorized [id number] Closed 06/21/2023 06/20/2026 1 1 Scheduling Instructions For 07/[address] 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 [address] [place] [phone] [facility] Referral ID Status Reason Start Date Expiration Date Visits Re quested Visits Authorized [id number] Closed 06/04/2023 06/03/2024 1 1 Encounter Details Date Type Department Care Team (Latest Contact Info) Description 06/21/2023 8:30 AM HAT MEASURER Comprehensive Visit Department of Palliative Care in [place], [place] [address] [place] [phone] Pérez Zuniga M.D., Ph.D. [address] [place] [phone] Valentine Dolan M.D., M.S. [address] [place] [phone] Rachelle Oliver RSantoshNSantosh [address] [place] [phone] Melanoma Trunk (HCC); Secondary Malignant Neoplasm Bone [...] Assigned at Female 05/31/2023 8:26 AM HAT MEASURER Gender Identity Female 05/31/2023 8:26 AM HAT MEASURER Sexual Orientation Straight 05/31/2023 8: 26 AM HAT MEASURER documented as of this encounter Last Filed Vital Signs Vital Sign Reading Time Taken Comments Blood Pressure 102/69 06/21/2023 8:26 AM HAT MEASURER Pulse 78 06/21/2023 8:26 AM HAT MEASURER Temperature 36.8 ??C (98.2 ??F) 06/21/2023 8:26 AM CS T Respiratory Rate - - Oxygen Saturation 100% 06/21/2023 8:26 AM HAT MEASURER Inhaled Oxygen Concentration - - Weight - - Height - - Body Mass Index - - documented in this encounter Patient Instructions * Patient Instructions* Valentine Dolan M.D., M.S. - 06/21/2023 8:30 AM HAT MEASURER You can adjust the timing of the [...] three times a day 6 hours apart. MEASURER documented in this encounter Progress Notes * [...] Care: Care for People with Serious Illness [id number] and Integrative and Supportive Therapies for Palliative Care Patients [id number] provided at this visit. Standard Opioid education included: Medication specific education for Oxycodone and Xtampza Safe Management of Controlled Substances [id number] Important Information About Opioid Medication EX0432 (page 7 opioid withdrawal) Treating Constipation Caused by Pain Medications [id number] Educational materials provided were: Integrative and Supportive Therapies for Palliative Care Patients [id number], Opioid Storage and Safety MC 7891-06, Palliative Care: Care for People with Serious Illness [id number], [facility] Integrative Medicine Program [place] TC6104-74, Safe Management of Controlled Substances DP1622 , and Treating Constipation Caused by Pain Medications [id number] Follow-up as per the consult note of Dr. Valentine Dolan 06/21 MEASURER documented in this encounter Consult Notes * Valentine Dolan M.D., M.S. - 06/21/2023 8:30 AM CST SUBJECTIVE PRIMARY CARE PROVIDER ELSEWHERE, PCP Patient Care Team: Ondina Chávez M.D. as External Primary Care Physician (Family Medicine) REFERRING PROVIDER Pérez Zuniga M.D., Ph.D. [phone] REFERRING SERVICE Medical Oncology CHIEF COMPLAINT / REASON FOR CONSULT Tony Cota is a 47 y.o. woman from [place], [place] with Stage IV melanoma metastatic to [...] in original bottle. Social History: Lives in [place], [place] with her Francis and three children. 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 They have a 17-year-old daughter who is a senior in high school, a 15-year-old daughter who is a freshman, and a son who is 6th grade. Their families live in [place]. Tony's mother is currently living with them to care for the children and get them ready in the morning. CODE STATUS No Order REVIEW OF SYSTEMS As described in the history of present illness otherwise reviewed with patient and non-contributoryto the current encounter. [place] Scores Who completed this form?: Patient No [...] Date: 06/20/2023 Impression: There are no previous [facility] echocardiograms available for comparison. LEFT VENTRICLE:Normal left [...] Cota is a 47 y.o. woman from [place], [place] with Stage IV melanoma metastatic to [...] with bone, pulmonary, lymph node metastases [place] SECURITY SERVICES SPECIALIST Review: We have reviewed the patient's record in the [place] prescription monitoring program 06/21/2023. Opioid Toxicity Review: [...] Tony will be notified of this adjustment. MEASURER documented in this encounter Miscellaneous Notes * Addendum Note - Valentine Dolan M.D., M.S. - 06/21/2023 8:30 AM HAT MEASURER Addended by: VALENTINE DOLAN on: 06/24/2023 03:42 PM Modules accepted: Orders MEASURER documented in this encounter Plan of Treatment Upcoming Encounters Date Type Department Care Team (Late st Contact Info) Description 08/19/2023 6:40 AM HAT MEASURER Appointment Department of Laboratory Medicine and Pathology, [facility] in [address] [phone] Pérez Zuniga M.D., Ph.D. [address] [place] [phone] 08/19/2023 7:00 AM HAT MEASURER Ancillary Procedure Department of Cardiovascular Medicine in [address] [phone] Pérez Zuniga M.D., Ph.D. [address] [place] [phone] 08/19/2023 9:00 AM HAT MEASURER Appointment Department of Radiology, [facility] in [address] [phone] Pérez Zuniga M.D., Ph.D. [address] [place] [phone] 08/19/2023 3:40 PM HAT MEASURER Office Visit Department of Oncology in [address] [phone] Zhane Granados APRN, C.N.P. [address] [place] [phone] 08/21/2023 10:15 AM HAT MEASURER Clinical Support Department of Palliative Care in [address] [phone] Serenity Dolan P.A.-C. [address] [place] [phone] Meka Rinaldi D.N.P., R.N., [facility] Scheduled Referrals Name Type Priority [...] documented as of this encounter Care Teams Recycling Collections Driver Relationship Specialty Start Date End Date Elsewhere, Pcp PCP - General Family Medicine 06/17/23 documented as of this encounter
--- OUTSIDE RECORDS SUMMARY | 2023-08-09 19:23 | XMS_ITS | Encounter Summary ---
Author Name Unknown Organization [facility] Address [address] [place] [address] Care Team Providers Care Manager Roofing Name Role Phone Unavailable Primary Care Provider Unavailabl e Encounter Details Date Type Department Care Team (Latest Contact Info) Description 06/05/2023 Specialty Pharmacy [facility] [address] [place] [phone] Yessi Patel, Pharm.D., R.Ph. [address] [place] [phone] Melanoma Trunk (HCC) (Primary Dx) Social History [...] Sex Assigned at Female 05/31/2023 8:26 AM VENDING MACHINE TECHNICIAN Gender Identity Female 05/31/2023 8:26 AM VENDING MACHINE TECHNICIAN Sexual Orientation Straight 05/31/2023 8: 26 AM VENDING MACHINE TECHNICIAN documented as of this encounter Miscellaneous Notes [...] sensitivity, medication and health history considered at school counsellor (renal function if available). To optimize outcomes, patient assessed for the needof other possible supportive therapies and informed of importance of proper monitoring and future reassessment. The patient/caregiver's prior education on this new therapy and disease specific knowledge were assessed with counseling and education tailored to this level of understanding. Caruso concerns and questions were addressed. Patient specific considerations/desires/requests noted at school counsellor: Suggested to stop ibuprofen due to bleeding [...] apparent. Patient is eligible for service through [facility]. Links to access additional resources [...] on what pharmacy they will be using retirement. Insurance investigation still underway. Follow-up: 1 month(s) Yessi Patel, PharmNemesio., R.Ph. ING MACHINE TECHNICIAN documented in this encounter Plan of Treatment Upcoming Encounters Date Type Department Care Team (Late st Contact Info) Description 08/19/2023 6:40 AM VENDING MACHINE TECHNICIAN Appointment Department of Laboratory Medicine and Pathology, [facility], in [place], [place] [address] [place] [address] Pérez Zuniga M.D., Ph.D. [address] [place] [phone] 08/19/2023 7:00 AM VENDING MACHINE TECHNICIAN Ancillary Procedure Department of Cardiovascular Medicine in [place], [place] [address] [place] [phone] Pérez Zuniga M.D., Ph.D. [address] [place] [phone] 08/19/2023 9:00 AM VENDING MACHINE TECHNICIAN Appointment Department of Radiology, [facility] in [place], [place] [address] [place] [phone] Pérez Zuniga M.D., Ph.D. [address] [place] [phone] 08/19/2023 3:40 PM VENDING MACHINE TECHNICIAN Office Visit Department of Oncology in [place], [place] [address] [place] [phone] Zhane Granados, DIRECTOR OF RETAIL MARKETING, C.N.P. [address] [place] [phone] 08/21/2023 10:15 AM VENDING MACHINE TECHNICIAN Clinical Support Department of Palliative Care in [place], [place] [address] [place] [phone] Serenity Kelsey, P.A.-C. [address] [place] [phone] Meka Rinaldi D.N.P., R.N., [facility] documented as of this encounter Visit Diagnoses Diagnosis Melanoma Trunk (HCC)- Primary documented in this encounter Additional Health Concerns Infection Onset Date Last Indicated Resolved Time Protective Environment 06/04/2023 06/04/2023 documented as of this encounter
--- OUTSIDE RECORDS SUMMARY | 2023-08-09 19:23 | XMS_ITS | Encounter Summary ---
Author Name Unknown Organization [facility] Address [address] [place] [address] Care Team Providers Care Manager Landscape Name Role Phone Unavailable Primary Care Provider Unavailabl e Encounter Details Date Type Department Care Team (Late st Contact Info) Description 06/05/2023 Specialty Pharmacy [facility] [address] [place] [address] Yessi Patel, Pharm.D., R.Ph. [address] [place] [phone] Social History Tobacco Use Types Packs/Day Years [...] Sex Assigned at Female 05/31/2023 8:26 AM CHEMISTRY LABORATORY TECHNICIAN Gender Identity Female 05/31/2023 8:26 AM CHEMISTRY LABORATORY TECHNICIAN Sexual Orientation Straight 05/31/2023 8: 26 AM CHEMISTRY LABORATORY TECHNICIAN documented as of this encounter Miscellaneous Notes * Telephone Encounter - Yessi Patel, Pharm.D., R.Ph. - 06/05/2023 1:59 PM CST Note created for purposes of potential enrollment with [facility] and medication interaction check via [employer] interaction gas meter checker. No telephone contact with patient at this point. ISTRY LABORATORY TECHNICIAN documented in this encounter Plan of Treatment Upcoming Encounters Date Type Department Care Team (Late st Contact Info) Description 08/19/2023 6:40 AM CHEMISTRY LABORATORY TECHNICIAN Appointment Department of Laboratory Medicine and Pathology, [facility] in [place], [place] [address] [place] [phone] Pérez Zuniga M.D., Ph.D. [address] [place] [phone] 08/19/2023 7:00 AM CHEMISTRY LABORATORY TECHNICIAN Ancillary Procedure Department of Cardiovascular Medicine in [place], [place] [address] [place] [phone] Pérez Zuniga M.D., Ph.D. [address] [place] [phone] 08/19/2023 9:00 AM CHEMISTRY LABORATORY TECHNICIAN Appointment Department of Radiology, [facility] in [place], [place] [address] [place] [phone] Pérez Zuniga M.D., Ph.D. [address] [place] [phone] 08/19/2023 3:40 PM CHEMISTRY LABORATORY TECHNICIAN Office Visit Department of Oncology in [place], [place] [address] [place] [phone] Zhane Granados APRN, C.N.P. [address] [place] [phone] 08/21/2023 10:15 AM CHEMISTRY LABORATORY TECHNICIAN Clinical Support Department of Palliative Care in [place], [place] [address] [place] [address] Serenity Kelsey P.A.-C. [address] [place] [phone] Meka Rinaldi D.N.P., R.N., [facility] documented as of this encounter Visit Diagnoses Not on filedocumented in this encounter Additional Health Concerns Infection Onset Date Last Indicated Resolved Time Protective Environment 06/04/2023 06/04/2023 documented as of this encounter
--- OUTSIDE RECORDS SUMMARY | 2023-08-09 19:23 | XMS_ITS | Encounter Summary ---
Author Name Unknown Organization [facility] Address [address] [place] [address] Care Team Providers Care Traffic Agent Name Role Phone Unavailable Primary Care Provider Unavailabl e Encounter Details Date Type Department Care Team (Latest Contact Info) Description 06/04/2023 7:35 AM CASH PROCESSING SPECIALIST Ancillary Procedure Department of Radiology in [place], [place] [address] [place] [address] Pérez Zuniga M.D., Ph.D. [address] [place] [phone] Melanoma Trunk (HCC); Secondary Malignant Neoplasm Bone [...] Sex Assigned at Female 05/31/2023 8:26 AM CASH PROCESSING SPECIALIST Gender Identity Female 05/31/2023 8:26 AM CASH PROCESSING SPECIALIST Sexual Orientation Straight 05/31/2023 8: 26 AM CASH PROCESSING SPECIALIST documented as of this encounter Plan of Treatment Upcoming Encounters Date Type Department Care Team (Late st Contact Info) Description 08/19/2023 6:40 AM CASH PROCESSING SPECIALIST Appointment Department of Laboratory Medicine and Pathology, [facility] in [place], [place] [address] [place] [phone] Pérez Zuniga M.D., Ph.D. [address] [place] [phone] 08/19/2023 7:00 AM CASH PROCESSING SPECIALIST Ancillary Procedure Department of Cardiovascular Medicine in [place], [place] [address] [place] [phone] Pérez Zuniga M.D., Ph.D. [address] [place] [phone] 08/19/2023 9:00 AM CASH PROCESSING SPECIALIST Appointment Department of Radiology, [facility] in [place], [place] [address] [place] [phone] Pérez Zuniga M.D., Ph.D. [address] [place] [phone] 08/19/2023 3:40 PM CASH PROCESSING SPECIALIST Office Visit Department of Oncology in [place], [place] [address] [place] [phone] Zhane Granados, LANDING SUPPORT SPECIALIST, C.N.P. [address] [place] [phone] 08/21/2023 10:15 AM CASH PROCESSING SPECIALIST Clinical Support Department of Palliative Care in [place], [place] [address] [place] [phone] Serenity Kelsey, P.A.-C. 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 The largest is seen proximally extending off of the proximal yoyfu-fp-fjni. This involves the intertrochanteric left femur extending [...] diaphysis, which extends off of the proximal mlcul-rs-rtcb (series 3 and 4 image 15). The lesions right around the knee were not present on the MRI from October 2014 and correlate with areas of hypermetabolic activity on the recent PET CT. Findings are compatible with recent biopsy results of metastatic melanoma. Large zchwz-lw-bjaq coronal and axial images include the right femur, which demonstrates numerous large intramedullary lesions throughout the right femoral diaphysis as well as the proximal right tibial diaphysis, as well. No definite discrete soft tissue masses within either thigh. Narrative 06/04/2023 11:45 AM CASH PROCESSING SPECIALIST EXAM: ??INTERPRETATION OF OUTSIDE MR LEFT FEMUR [...] is seen proximally extending off of the aldipuikvgbgr-qy-jmna. This involves the intertrochanteric left femur extendingdistally [...] tibial diaphysis, which extends offof the proximal ihmhp-tc-hubh (series 3 and 4 image 15). The lesions right around the knee were not present on the MRIfrom October 2014 and correlate with areas of hypermetabolic activity on therecent PET CT. Findings are compatible with recent biopsy results ofmetastatic melanoma. Large zbzaw-mu-uuog coronal and axial images include the right [...]
--- OUTSIDE RECORDS SUMMARY | 2023-08-09 19:23 | XMS_ITS | Encounter Summary ---
Author Name Unknown Organization [facility] Address [address] [place] [address] Care Team Providers Care Train Gateman Name Role Phone Unavailable Primary Care Provider Unavailabl e Reason for Referral * Outpatient (Routine) - Closed Specialty Diagnoses / Procedures Referred By Mikik feliciano Referred To Contact Oncology Laura Dalal M.D. [address] [place] [phone] [facility] Referral ID Status Reason Start Date Expiration Date Visits Re quested Visits Authorized [id number] Closed 06/10/2023 06/09/2026 1 1 Scheduling Instructions With Julia Liz 3:00 pm RVISORY HISTORIAN Encounter Details Date Type Department Care Team (Late st Contact Info) Description 06/10/2023 Clinical Communication Department of Oncology in [place], [place] [address] [place] [phone] Akosua Liz D.N.P., R.N. [address] [place] [phone] Social History Tobacco Use Types Packs/Day Years [...] Sex Assigned at Female 05/31/2023 8:26 AM SUPERVISORY HISTORIAN Gender Identity Female 05/31/2023 8:26 AM SUPERVISORY HISTORIAN Sexual Orientation Straight 05/31/2023 8: 26 AM SUPERVISORY HISTORIAN documented as of this encounter Plan of Treatment Upcoming Encounters Date Type Department Care Team (Late st Contact Info) Description 08/19/2023 6:40 AM SUPERVISORY HISTORIAN Appointment Department of Laboratory Medicine and Pathology, [facility] in [place], [place] [address] [place] [phone] Pérez Zuniga M.D., Ph.D. [address] [place] [phone] 08/19/2023 7:00 AM SUPERVISORY HISTORIAN Ancillary Procedure Department of Cardiovascular Medicine in [address] [phone] Pérez Zuniga M.D., Ph.D. [address] [place] [phone] 08/19/2023 9:00 AM SUPERVISORY HISTORIAN Appointment Department of Radiology, [facility] in [place], [place] [address] [place] [phone] Pérez Zuniga M.D., Ph.D. [address] [place] [phone] 08/19/2023 3:40 PM SUPERVISORY HISTORIAN Office Visit Department of Oncology in [place], [place] [address] [place] [phone] Zhane Granados APRN, C.N.P. [address] [place] [phone] 08/21/2023 10:15 AM [facility] Clinical Support Department of Palliative Care in [place], [place] [address] [place] [phone] Serenity Kelsey P.A.-C. [address] [place] [phone] Meka Rinaldi D.N.P., R.N., [facility] Scheduled Referrals Name Type Priority Associated Diagnoses Orde r Schedule Oncology nurse visit (clinic) Outpatient Referral Routine Expected: 06/20/2023, Expires: 09/10/2024 documented as of this encounter Visit Diagnoses Not on filedocumented in this encounter Additional Health Concerns Infection Onset Date Last Indicated Resolved Time Protective Environment 06/04/2023 06/04/2023 documented as of this encounter
--- OUTSIDE RECORDS SUMMARY | 2023-08-09 19:23 | XMS_ITS | Encounter Summary ---
Author Name Unknown Organization [facility] Address [address] [place] [address] Care Team Providers Care Press Reader Name Role Phone Elsewhere, Pcp Primary Care Provider Unavailabl e Reason for Referral * Outpatient (Routine) - Closed Specialty Diagnoses / Procedures Referred By Contac t Referred To Contact Palliative Medicine Valentine Kelsey M.D., M.S. [address] [place] [address] [facility] Referral ID Status Reason Start Date Expiration Date Visits Re quested Visits Authorized [id number] Closed 07/01/2023 06/30/2026 [address] Kelsey PING CAR SERVICE ATTENDANT * Outpatient (Routine) - Closed Specialty Diagnoses / Procedures Referred By Contsweetie t Referred To Contact Palliative Medicine Diagnoses Melanoma Trunk (HCC) Nausea Valentine Kelsey M.D., M.S. [address] [place] [phone] [facility] Referral ID Status Reason Start Date Expiration Date Visits Re quested Visits Authorized [id number] Closed 07/01/2023 06/30/2026 1 1 Scheduling Instructions If can coordinate with accupressure PING CAR SERVICE ATTENDANT Reason for Visit * Outpatient (Routine) - Closed Specialty Diagnoses / Procedures Referred By Mikki feliciano Referred To Contact Palliative Medicine Valentine Kelsey M.D., M.S. [address] [place] [phone] [facility] Referral ID Status Reason Start Date Expiration Date Visits Re quested Visits Authorized [id number] Closed 06/21/2023 06/20/2026 1 1 Encounter Details Date Type Department Care Team (Late st Contact Info) Description 07/01/2023 3:00 PM SLEEPING CAR SERVICE ATTENDANT Telemedicine Department of Palliative Care in [place], [place] [address] [place] [phone] Valentine Kelsey M.D., M.S. [address] [place] [phone] Melanoma Trunk (HCC) (Primary Dx); Nausea; Pain [...] Sex Assigned at Female 05/31/2023 8:26 AM SLEEPING CAR SERVICE ATTENDANT Gender Identity Female 05/31/2023 8:26 AM SLEEPING CAR SERVICE ATTENDANT Sexual Orientation Straight 05/31/2023 8: 26 AM SLEEPING CAR SERVICE ATTENDANT documented as of this encounter Progress Notes * Valentine Kelsey M.D., M.S. - 07/01/2023 3:00 PM CST SUBJECTIVE CHIEF COMPLAINT/REASON FOR VISIT Tony Cota is a 47 y.o. woman from [place], [place] with Stage IV melanoma metastatic to [...] Cota is a 47 y.o. woman from [place], [place] with Stage IV melanoma metastatic to [...] related to controlled substance prescribing: Melanoma [place] PET HANDLER Review: We have reviewed the patient's record in the [place] prescription monitoring program 07/01/2023. Opioid Toxicity Review: [...] technology by Valentine Kelsey M.D., M.S. in [facility] to the patient in Patient's Home Valentine Kelsey M.D., M.S. PING CAR SERVICE ATTENDANT documented in this encounter Plan of Treatment Upcoming Encounters Date Type Department Care Team (Late st Contact Info) Description 08/19/2023 6:40 AM SLEEPING CAR SERVICE ATTENDANT Appointment Department of Laboratory Medicine and Pathology, [facility], in [place], [place] [address] [place] [phone] Pérez Zuniga M.D., Ph.D. [address] [place] [phone] 08/19/2023 7:00 AM SLEEPING CAR SERVICE ATTENDANT Ancillary Procedure Department of Cardiovascular Medicine in [place], [place] [address] [place] [phone] Pérez Zuniga M.D., Ph.D. [address] [place] [phone] 08/19/2023 9:00 AM SLEEPING CAR SERVICE ATTENDANT Appointment Department of Radiology, [facility], in [place], [place] [address] [place] [phone] Pérez Zuniga M.D., Ph.D. [address] [place] [phone] 08/19/2023 3:40 PM SLEEPING CAR SERVICE ATTENDANT Office Visit Department of Oncology in [place], [place] [address] [place] [phone] Zhane Granados APRN, C.N.P. [address] [place] [phone] 08/21/2023 10:15 AM SLEEPING CAR SERVICE ATTENDANT Clinical Support Department of Palliative Care in [place], [place] [address] [place] [phone] Serenity Kelsey, P.A.-C. [address] [place] [phone] Meka Rinaldi D.N.P., R.N., [facility] Scheduled Referrals Name Type Priority Associated Diagnoses [...] documented as of this encounter Care Teams Press Reader Relationship Specialty Start Date End Date Elsewhere, Pcp PCP - General Family Medicine 06/17/23 documented as of this encounter
--- OUTSIDE RECORDS SUMMARY | 2023-08-09 19:23 | XMS_ITS | Encounter Summary ---
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 200 [place] [phone] [facility] Referral ID Status Reason Start Date Expiration Date Visits Re quested Visits Authorized [id number] Closed 06/20/2023 06/19/2024 1 1 TRACER * Outpatient (Routine) - Closed Specialty Diagnoses / Procedures Referred By Contac t Referred To Contact Oncology Pérez Zuniga M.D., Ph.D. [address] [place] [address] [facility] Referral ID Status Reason Start Date Expiration Date Visits Re quested Visits Authorized [id number] Closed 06/20/2023 06/19/2026 1 1 TRACER Reason for Visit * Outpatient (Routine) - Closed Specialty Diagnoses / Procedures Referred By Mikki feliciano Referred To Contact Oncology Pérez Zuniga M.D., Ph.D. [address] [place] [phone] [facility] Referral ID Status Reason Start Date Expiration Date Visits Re quested Visits Authorized [id number] Closed 06/04/2023 06/03/2026 1 1 Encounter Details Date Type Department Care Team (Late st Contact Info) Description 06/20/2023 4:40 PM SKIP TRACER Office Visit Department of Oncology in [place], [place] [address] [place] [phone] Pérez Zuniga M.D., Ph.D. [address] [place] [phone] Melanoma Trunk (HCC) (Primary Dx); Secondary Malignant Neoplasm Bone (HCC); Other Tactical Debriefer Officer Current Drug Therapy Social History Tobacco Use [...] Sex Assigned at Female 05/31/2023 8:26 AM SKIP TRACER Gender Identity Female 05/31/2023 8:26 AM SKIP TRACER Sexual Orientation Straight 05/31/2023 8: 26 AM SKIP TRACER documented as of this encounter Last Filed Vital Signs Vital Sign Reading Time Taken Comments Blood Pressure 125/79 06/20/2023 2:14 PM SKIP TRACER Pulse 99 06/20/2023 2:14 PM SKIP TRACER Temperature 37 ??C (98.6 ??F) 06/20/2023 2:14 PM SKIP TRACER Respiratory Rate 16 06/20/2023 2:14 PM SKIP TRACER Oxygen Saturation 100% 06/20/2023 2:14 PM SKIP TRACER Inhaled Oxygen Concentration - - Weight 75 kg (165 lb 5.5 oz) 06/20/2023 2:14 PM SKIP TRACER Height 160 cm (5' 2.99) 06/20/2023 2:14 PM SKIP TRACER Body Mass Index 29.3 06/20/2023 2:14 PM SKIP TRACER documented in this encounter Progress Notes * [...] and/or coordination of care as described above. TRACER documented in this encounter Plan of Treatment Upcoming Encounters Date Type Department Care Team (Late st Contact Info) Description 08/19/2023 6:40 AM SKIP TRACER Appointment Department of Laboratory Medicine and Pathology, [facility] in [place], [place] [address] [place] [phone] Pérez Zuniga M.D., Ph.D. [address] [place] [phone] 08/19/2023 7:00 AM SKIP TRACER Ancillary Procedure Department of Cardiovascular Medicine in [place], [place] [address] [place] [phone] Pérez Zuniga M.D., Ph.D. [address] [place] [phone] 08/19/2023 9:00 AM SKIP TRACER Appointment Department of Radiology, [facility] in [place], [place] [address] [place] [phone] Pérez Zuniga M.D., Ph.D. [address] [place] [phone] 08/19/2023 3:40 PM SKIP TRACER Office Visit Department of Oncology in [place], [place] [address] [place] [phone] Zhane Granados APRN, C.N.P. [address] [place] [phone] 08/21/2023 10:15 AM SKIP TRACER Clinical Support Department of Palliative Care in [place], [place] [address] [place] [phone] Serenity Kelsey, PSantoshADenilson. [address] [place] [phone] Meka Rinaldi D.N.P., R.N., [facility] Scheduled Referrals Name Type Priority Associated Diagnoses Orde r Schedule Oncology office visit (clinic) Outpatient Referral Routine Expected: 07/04/2023 (Approximate), Expires: 09/18/2024 documented as of this encounter Results * ECG 12 Lead (07/04/2023 10:08 AM [facility]) Ventricular Rate ECG/Min 81 BPM MUSE DC Interval 136 ms MUSE QRSD Interval 82 ms MUSE QT Interval 384 ms MUSE QTC Interval 446 ms MUSE P [place] 46 degrees MUSE R [place] 60 degrees MUSE T Wave [place] 19 degrees MUSE 07/04/2023 10:0 8 AM SKIP TRACER 07/04/2023 10:10 AM SKIP TRACER Impressions MUSE - 07/04/2023 10:10 AM SKIP TRACER Normal sinus rhythm Normal ECG When compared [...] CBC with Differential, Blood (07/04/2023 9:50 AM SKIP TRACER) Hemoglobin 8.2(L) 11.6 - 15.0 g/dL 07/04/2023 10:56 AM SKIP TRACER DHPM Hematocrit 26.3(L) 35.5 - 44.9 % 07/04/2023 10:56 AM SKIP TRACER DHPM Erythrocytes 2.62(L) 3.92 - 5.13 x10(12)/L 07/04/2023 10:56 AM SKIP TRACER DHPM MCV 100.4(H) 78.2 - 97.9 fL 07/04/2023 10:56 AM SKIP TRACER DHPM RBC Distrib Width 17.5(H) 12.2 - 16.1 % 07/04/2023 10:56 AM SKIP TRACER DHPM Platelet Count 701(H) 157 - 371 x10(9)/L 07/04/2023 10:56 AM SKIP TRACER DHPM Leukocytes 9.9(H) 3.4 - 9.6 x10(9)/L 07/04/2023 10:56 AM SKIP TRACER DHPM Neutrophils 5.27 1.56 - 6.45 x10(9)/L 07/04/2023 10:56 AM SKIP TRACER DHPM Lymphocytes 3.81(H) 0.95 - 3.07 x10(9)/L 07/04/2023 10:56 AM SKIP TRACER DHPM Monocytes 0.63 0.26 - 0.81 x10(9)/L 07/04/2023 10:56 AM SKIP TRACER DHPM Eosinophils 0.10 0.03 - 0.48 x10(9)/L 07/04/2023 10:56 AM SKIP TRACER DHPM Basophils 0.12(H) 0.01 - 0.08 x10(9)/L 07/04/2023 10:56 AM SKIP TRACER DHPM Blood (Blood, Venous) 07/04/2023 9:50 AM SKIP TRACER 07/04/2023 10:11 AM SKIP TRACER Pérez Zuniga M.D., Ph.D. LAB BLOO D ADD-ON Performing Organization Address City/[facility]/ZIP Co de Phone Number [facility] 200 [place] [address], [facility] 200 [place] [address] * Thyroid Function [place] (07/04/2023 9:49 AM SKIP TRACER) TSH, Sensitive 2.3 0.3 - 4.2 mIU/L 07/04/2023 11:05 AM SKIP TRACER DTL Blood (Blood, Venous) 07/04/2023 9:49 AM SKIP TRACER 07/04/2023 10:29 AM SKIP TRACER Pérez Zuniga M.D., Ph.D. LAB BLOO D ADD-ON Performing Organization Address [facility] Co de Phone Number [facility] 200 [place] [address], [facility] 200 [place] [address] * (ABNORMAL) Comprehensive Metabolic Panel (07/04/2023 9:49 AM SKIP TRACER) Potassium, S 4.7 3.6 - 5.2 mmol/L 07/04/2023 11:05 AM SKIP TRACER DTL Sodium, S 137 135 - 145 mmol/L 07/04/2023 11:05 AM SKIP TRACER DTL Chloride, S 103 98 - 107 mmol/L 07/04/2023 11:05 AM SKIP TRACER DTL Bicarbonate, S 24 22 - 29 mmol/L 07/04/2023 11:05 AM SKIP TRACER DTL Anion Gap 10 7 - 15 07/04/2023 11:05 AM SKIP TRACER DTL BUN (Blood Urea Nitrogen), S 22(H) 6 - 21 mg/dL 07/04/2023 11:05 AM SKIP TRACER DTL Creatinine 0.90 0.59 - 1.04 mg/dL 07/04/2023 11:05 AM SKIP TRACER DTL Estimated GFR (eGFR) 80 >=60 mL/min/BS A 07/04/2023 11:05 AM SKIP TRACER DTL Comment: Estimated GFR calculated using the 2020 CKD_EPI creatinine equation. Calcium, Total, S 9.9 8.6 - 10.0 mg/dL 07/04/2023 11:05 AM SKIP TRACER DTL Glucose, S 98 70 - 140 mg/dL 07/04/2023 11:05 AM SKIP TRACER DTL Protein, Total, S 7.7 6.3 - 7.9 g/dL 07/04/2023 11:05 AM SKIP TRACER DTL Albumin, S 4.3 3.5 - 5.0 g/dL 07/04/2023 11:05 AM SKIP TRACER DTL Aspartate Aminotransferase (AST), S 26 8 - 43 U/L 07/04/2023 11:05 AM SKIP TRACER DTL Alkaline Phosphatase, S 229(H) 35 - 104 U/L 07/04/2023 11:05 AM SKIP TRACER DTL Alanine Aminotransferase (ALT), S 24 7 - 45 U/L 07/04/2023 11:05 AM SKIP TRACER DTL Bilirubin, Total, S 0.2 0.0 - 1.2 mg/dL 07/04/2023 11:05 AM SKIP TRACER DTL Blood (Blood, Venous) 07/04/2023 9:49 AM SKIP TRACER 07/04/2023 10:29 AM SKIP TRACER Pérez Zuniga M.D., Ph.D. LAB BLOO D ADD-ON [facility] [address] [place] [address], [facility] [address] [place] [address] documented in this encounter Visit Diagnoses Diagnosis Melanoma Trunk (HCC)- Primary Secondary Malignant Neoplasm Bone (HCC) Other Prison Current Drug Therapy documented in this encounter Additional Health Concerns Infection Onset Date Last Indicated Resolved Time Protective Environment 06/04/2023 06/04/2023 documented as of this encounter Care Teams Corporate Sales Manager Relationship Specialty Start Date End Date Elsewhere, Pcp PCP - General Family Medicine 06/17/23 documented as of this encounter
--- OUTSIDE RECORDS SUMMARY | 2023-08-09 19:23 | XMS_ITS | Encounter Summary ---
Author Name Unknown Organization [facility] Address [address] [place] [address] Care Team Providers Care Microsoft Bi Consultant Name Role Phone Unavailable Primary Care Provider Unavailabl e Encounter Details Date Type Department Care Team (Late st Contact Info) Description 06/05/2023 Clinical Communication Department of Oncology in [place], [place] [address] [place] [phone] Anahy Amezcua R.N., O.C.N. [address] [place] [phone] Social History Tobacco Use Types Packs/Day Years [...] Sex Assigned at Female 05/31/2023 8:26 AM BINDER FIXER Gender Identity Female 05/31/2023 8:26 AM BINDER FIXER Sexual Orientation Straight 05/31/2023 8: 26 AM BINDER FIXER documented as of this encounter Miscellaneous Notes * Telephone Encounter - Anahy Amezcua R.N., O.C.N. - 06/05/2023 12:48 PM BINDER FIXER SUBJECTIVE CHIEF COMPLAINT / REASON FOR CALL [...] following references were used: nursing clinical judgement ER FIXER * Telephone Encounter - Anahy Amezcua R.N., O.C.N. - 06/05/2023 10:52 AM BINDER FIXER SUBJECTIVE CHIEF COMPLAINT / REASON FOR CALL [...] following references were used: nursing clinical judgement. ER FIXER documented in this encounter Plan of Treatment Upcoming Encounters Date Type Department Care Team (Late st Contact Info) Description 08/19/2023 6:40 AM BINDER FIXER Appointment Department of Laboratory Medicine and Pathology, [facility] in [address] [phone] Pérez Zuniga M.D., Ph.D. [address] [place] [phone] 08/19/2023 7:00 AM BINDER FIXER Ancillary Procedure Department of Cardiovascular Medicine in [address] [phone] Pérez Zuniga M.D., Ph.D. [address] [place] [phone] 08/19/2023 9:00 AM BINDER FIXER Appointment Department of Radiology, [facility] in [address] [phone] Pérez Zuniga M.D., Ph.D. [address] [place] [phone] 08/19/2023 3:40 PM BINDER FIXER Office Visit Department of Oncology in [address] [phone] Zhane Granados APRN, C.N.P. [address] [place] [phone] 08/21/2023 10:15 AM BINDER FIXER Clinical Support Department of Palliative Care in [address] [phone] Serenity Kelsey P.A.-C. [address] [place] [phone] Meka Rinaldi D.N.P., R.N., [facility] documented as of this encounter Visit Diagnoses Not on filedocumented in this encounter Additional Health Concerns Infection Onset Date Last Indicated Resolved Time Protective Environment 06/04/2023 06/04/2023 documented as of this encounter
--- OUTSIDE RECORDS SUMMARY | 2023-08-09 19:23 | XMS_ITS | Encounter Summary ---
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 200 [place] [address] [facility] Referral ID Status Reason Start Date Expiration Date Visits Re quested Visits Authorized [id number] Closed 06/04/2023 06/03/2024 1 1 Encounter Details Date Type Department Care Team (Latest Contact Info) Description 06/20/2023 12:07 PM OPTICAL MODEL MAKER AND TESTER - 06/20/2023 11:59 PM OPTICAL MODEL MAKER AND TESTER Hospital Encounter Department of Cardiovascular Diseases in [place], [place] [address] [place] [address] Pérez Zuniga M.D., Ph.D. [address] [place] [phone] Melanoma Trunk (HCC); Secondary Malignant Neoplasm Bone (HCC); Other Mc[facility] Current Drug Therapy Discharge Disposition: Home or [...] Sex Assigned at Female 05/31/2023 8:26 AM OPTICAL MODEL MAKER AND TESTER Gender Identity Female 05/31/2023 8:26 AM OPTICAL MODEL MAKER AND TESTER Sexual Orientation Straight 05/31/2023 8: 26 AM OPTICAL MODEL MAKER AND TESTER documented as of this encounter Medications at [...] st Contact Info) Description 08/19/2023 6:40 AM OPTICAL MODEL MAKER AND TESTER Appointment Department of Laboratory Medicine and Pathology, [place], [place] [address] [place] [phone] Pérez Zuniga M.D., Ph.D. [address] [place] [phone] 08/19/2023 7:00 AM OPTICAL MODEL MAKER AND TESTER Ancillary Procedure Department of Cardiovascular Medicine in [place], [place] [address] [place] [phone] Pérez Zuniga M.D., Ph.D. [address] [place] [phone] 08/19/2023 9:00 AM OPTICAL MODEL MAKER AND TESTER Appointment Department of Radiology, [facility] in [place], [place] [address] [place] [phone] Pérez Zuniga M.D., Ph.D. [address] [place] [phone] 08/19/2023 3:40 PM OPTICAL MODEL MAKER AND TESTER Office Visit Department of Oncology in [place], [place] [address] [place] [phone] Zhane Granados APRN, C.N.P. [address] [place] [phone] 08/21/2023 10:15 AM OPTICAL MODEL MAKER AND TESTER Clinical Support Department of Palliative Care in [place], [place] [address] [place] [phone] Serenity Kelsey P.A.-C. 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 LEFT VENTRICLE:Normal [...] the Order-Level Documents. Narrative 06/20/2023 1:42 PM OPTICAL MODEL MAKER AND TESTER For the complete report, see the Order-Level [...] Findings There are no previous [facility] echocardiograms available forcomparison. LEFT VENTRICLE:Normal left [...] (HCC) Secondary Malignant Neoplasm Bone (HCC) Other Furnace Process Supervisor Current Drug Therapy documented in this encounter Additional Health Concerns Infection Onset Date Last Indicated Resolved Time Protective Environment 06/04/2023 06/04/2023 documented as of this encounter Care Teams Electronics Engineering Technologist Relationship Specialty Start Date End Date Elsewhere, Pcp PCP - General Family Medicine 06/17/23 documented as of this encounter
--- OUTSIDE RECORDS SUMMARY | 2023-08-09 19:23 | XMS_ITS | Encounter Summary ---
Author Name Unknown Organization [facility] Address [address] [place] [address] Care Team Providers Care Gift Shop Clerk Name Role Phone Unavailable Primary Care Provider Unavailabl e Encounter Details Date Type Department Care Team (Late st Contact Info) Description 06/04/2023 Orders Only [facility] [address] [place] [phone] Joy Hernandez, Pharm.D., R.Ph. [address] [place] [phone] Social History Tobacco Use Types Packs/Day Years [...] Sex Assigned at Female 05/31/2023 8:26 AM TELEVISION AUDIO ENGINEER Gender Identity Female 05/31/2023 8:26 AM TELEVISION AUDIO ENGINEER Sexual Orientation Straight 05/31/2023 8: 26 AM TELEVISION AUDIO ENGINEER documented as of this encounter Plan of Treatment Upcoming Encounters Date Type Department Care Team (Late st Contact Info) Description 08/19/2023 6:40 AM TELEVISION AUDIO ENGINEER Appointment Department of Laboratory Medicine and Pathology, [facility] [place], [place] [address] [place] [address] Pérez Zuniga M.D., Ph.D. [address] [place] [phone] 08/19/2023 7:00 AM TELEVISION AUDIO ENGINEER Ancillary Procedure Department of Cardiovascular Medicine in [place], [place] [address] [place] [phone] Pérez Zuniga M.D., Ph.D. [address] [place] [phone] 08/19/2023 9:00 AM TELEVISION AUDIO ENGINEER Appointment Department of Radiology, [facility], in [place], [place] [address] [place] [phone] Pérez Zuniga M.D., Ph.D. [address] [place] [phone] 08/19/2023 3:40 PM TELEVISION AUDIO ENGINEER Office Visit Department of Oncology in [place], [place] [address] [place] [phone] Zhane Granados, ANALYTICS INTERN, C.N.P. [address] [place] [phone] 08/21/2023 10:15 AM TELEVISION AUDIO ENGINEER Clinical Support Department of Palliative Care in [place], [place] [address] [place] [phone] Serenity Kelsey, P.A.-C. [address] [place] [phone] Meka Rinaldi D.N.P., R.N., [facility] documented as of this encounter Visit Diagnoses Not on filedocumented in this encounter
--- OUTSIDE RECORDS SUMMARY | 2023-08-09 19:24 | XMS_ITS | Encounter Summary ---
Author Name Unknown Organization [facility] Address [address] [place] [address] Care Team Providers Care Java Groovy Developer Name Role Phone Elsewhere, Pcp Primary Care Provider Unavailabl e Encounter Details Date Type Department Care Team (Late st Contact Info) Description 05/23/2023 Clinical Communication Department of Oncology in [place], [place] [address] [place] [phone] Naida Mejia P.A.-C., M.S. [address] [place] [phone] Social History Tobacco Use Types Packs/Day Years Used Date Smoking Tobacco: Never Assessed Nutrition Answer Date Recorded Nutrition: EVOO Fat Source Unknown 05/06 Nutrition: Servings of Fruits/Vegetables per Day Not on file 05/06/2023 Dental Answer Date Recorded Dental: Regular Dentist Unknown 05/06/20 Sex and Gender Information Value Date Recorded Sex Assigned at Female 05/31/2023 8:26 AM INTERNET MARKETING ANALYST Gender Identity Female 05/31/2023 8:26 AM INTERNET MARKETING ANALYST Sexual Orientation Straight 05/31/2023 8: 26 AM INTERNET MARKETING ANALYST documented as of this encounter Plan of Treatment Upcoming Encounters Date Type Department Care Team (Late st Contact Info) Description 08/19/2023 6:40 AM INTERNET MARKETING ANALYST Appointment Department of Laboratory Medicine and Pathology, [facility], in [place], [place] [address] [place] [phone] Pérez Zuniga M.D., Ph.D. [address] [place] [phone] 08/19/2023 7:00 AM INTERNET MARKETING ANALYST Ancillary Procedure Department of Cardiovascular Medicine in [place], [place] [address] [place] [phone] Pérez Zuniga M.D., Ph.D. [address] [place] [phone] 08/19/2023 9:00 AM INTERNET MARKETING ANALYST Appointment Department of Radiology, [facility] in [place], [place] [address] [place] [phone] Pérez Zuniga M.D., Ph.D. [address] [place] [phone] 08/19/2023 3:40 PM INTERNET MARKETING ANALYST Office Visit Department of Oncology in [place], [place] [address] [place] [phone] Zhane Granados, MANAGER ELECTRICAL, C.N.P. [address] [place] [phone] 08/21/2023 10:15 AM INTERNET MARKETING ANALYST Clinical Support Department of Palliative Care in [place], [place] [address] [place] [phone] Serenity Kelsey, P.A.-C. [address] [place] [phone] Meka Rinaldi D.N.P., R.N., [facility] documented as of this encounter Visit Diagnoses Not on filedocumented in this encounter Additional Health Concerns Infection Onset Date Last Indicated Resolved Time Protective Environment 06/04/2023 06/04/2023 documented as of this encounter Care Teams Java Groovy Developer Relationship Specialty Start Date End Date Elsewhere, Pcp PCP - General Family Medicine 06/17/23 documented as of this encounter
--- OUTSIDE RECORDS SUMMARY | 2023-08-09 19:24 | XMS_ITS | Encounter Summary ---
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 [address] [place] [phone] [facility] Referral ID Status Reason Start Date Expiration Date Visits Re quested Visits Authorized [id number] Closed 06/04/2023 06/03/2024 1 1 AND FRAMES PRESCRIPTION CLERK * Specialty Diagnoses / Procedures Referred By Contac t Referred To Contact Pérez Zuniga M.D., Ph.D. [address] [place] [phone] [facility] Referral ID Status Reason Start Date Expiration Date Visits Re quested Visits Authorized AND FRAMES PRESCRIPTION CLERK * Outpatient (Routine) - Closed Specialty Diagnoses / Procedures Referred By Contac t Referred To Contact Oncology Pérez Zuniga M.D., Ph.D. 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 [address] [place] [phone] [facility] Referral ID Status Reason Start Date Expiration Date Visits Re quested Visits Authorized [id number] Closed 06/04/2023 06/03/2024 1 1 AND FRAMES PRESCRIPTION CLERK Reason for Visit * Appointment Request (Routine) - Closed Specialty Diagnoses / Procedures Referred By Mikki t Referred To Contact Oncology Diagnoses Metastatic Melanoma Cancer Referral ID Status Reason Start Date Expiration Date Visits Re quested Visits Authorized [id number] Closed 05/22/2023 05/21/2024 1 1 Encounter Details Date Type Department Care Team (Latest Contact Info) Description 06/04/2023 2:20 PM LENS AND FRAMES PRESCRIPTION CLERK Comprehensive Visit Department of Oncology in [place], [place] [address] [place] [phone] Pérez Zuniga M.D., Ph.D. [address] [place] [phone] Melanoma Trunk (HCC) (Primary Dx); Secondary Malignant Neoplasm Bone (HCC); Other [facility] Current Drug Therapy Social History Tobacco Use [...] Sex Assigned at Female 05/31/2023 8:26 AM LENS AND FRAMES PRESCRIPTION CLERK Gender Identity Female 05/31/2023 8:26 AM LENS AND FRAMES PRESCRIPTION CLERK Sexual Orientation Straight 05/31/2023 8: 26 AM LENS AND FRAMES PRESCRIPTION CLERK documented as of this encounter Last Filed Vital Signs Vital Sign Reading Time Taken Comments Blood Pressure 103/69 06/04/2023 2:11 PM LENS AND FRAMES PRESCRIPTION CLERK Pulse 81 06/04/2023 2:11 PM LENS AND FRAMES PRESCRIPTION CLERK Temperature 36.3 ??C (97.3 ??F) 06/04/2023 2:11 PM CS T Respiratory Rate 17 06/04/2023 2:11 PM LENS AND FRAMES PRESCRIPTION CLERK Oxygen Saturation 100% 06/04/2023 2:11 PM LENS AND FRAMES PRESCRIPTION CLERK Inhaled Oxygen Concentration - - Weight 85 kg (187 lb 6.3 oz) 06/04/2023 2:11 PM LENS AND FRAMES PRESCRIPTION CLERK Height 160 cm (5' 2.99) 06/04/2023 2:11 PM LENS AND FRAMES PRESCRIPTION CLERK Body Mass Index 33.2 06/04/2023 2:11 PM LENS AND FRAMES PRESCRIPTION CLERK documented in this encounter Consult Notes * [...] and/or coordination of care as described above. AND FRAMES PRESCRIPTION CLERK documented in this encounter Miscellaneous Notes * Addendum Note - Laura Amezcua R.N., O.C.N. - 06/04/2023 2:20 PM CSTAddended by: LAURA AMEZCUA on: 06/04/2023 03:23 PM Modules accepted: Orders AND FRAMES PRESCRIPTION CLERK * Addendum Note - Laura Amezcua R.N., O.C.N. - 06/04/2023 2:20 PM CSTAddended by: LAURA AMEZCUA on: 06/04/2023 03:38 PM Modules accepted: Orders AND FRAMES PRESCRIPTION CLERK documented in this encounter Plan of Treatment Upcoming Encounters Date Type Department Care Team (Late st Contact Info) Description 08/19/2023 6:40 AM LENS AND FRAMES PRESCRIPTION CLERK Appointment Department of Laboratory Medicine and Pathology, [facility], in [place], [place] [address] [place] [phone] Pérez Zuniga M.D., Ph.D. [address] [place] [phone] 08/19/2023 7:00 AM LENS AND FRAMES PRESCRIPTION CLERK Ancillary Procedure Department of Cardiovascular Medicine in [place], [place] [address] [place] [phone] Pérez Zuniga M.D., Ph.D. [address] [place] [phone] 08/19/2023 9:00 AM LENS AND FRAMES PRESCRIPTION CLERK Appointment Department of Radiology, [facility], in [place], [place] [address] [place] [phone] Pérez Zuniga M.D., Ph.D. [address] [place] [phone] 08/19/2023 3:40 PM LENS AND FRAMES PRESCRIPTION CLERK Office Visit Department of Oncology in [place], [place] [address] [place], [place] [phone] Zhane Granados APRN, C.N.P. [address] [place] [phone] 08/21/2023 10:15 AM LENS AND FRAMES PRESCRIPTION CLERK Clinical Support Department of Palliative Care in [place], [place] [address] [place] [phone] Serenity Kelsey, P.A.-C. 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 LEFT VENTRICLE:Normal [...] the Order-Level Documents. Narrative 06/20/2023 1:42 PM LENS AND FRAMES PRESCRIPTION CLERK For the complete report, see the Order-Level [...] Findings There are no previous [facility] echocardiograms available forcomparison. LEFT VENTRICLE:Normal left [...] (with Reflex Antibody ID) (06/20/2023 12:01 PM LENS AND FRAMES PRESCRIPTION CLERK) ABORh O Neg Not applicable 06/20/2023 1:48 PM LENS AND FRAMES PRESCRIPTION CLERK ETRM Antibody Screen Negative Negative 06/20/2023 2:00 PM LENS AND FRAMES PRESCRIPTION CLERK ETRM Type & Screen Expiration 06/23/2023 23:59 06/20/2023 1:48 PM LENS AND FRAMES PRESCRIPTION CLERK ETRM Testing Location [facility] 06/20/2023 12:53 PM LENS AND FRAMES PRESCRIPTION CLERK ETRM Blood (Blood, Venous) 06/20/2023 12:01 PM LENS AND FRAMES PRESCRIPTION CLERK 06/20/2023 12:53 PM LENS AND FRAMES PRESCRIPTION CLERK Pérez Zuniga M.D., Ph.D. LAB BLOO D BANK TEST ORDERABLES Performing Organization Address [facility] Co de Phone Number [facility] [address] [place] [address], [facility] ETRM [facility] [address] [place] [address] * Thyroid Function [place] (06/20/2023 12:01 PM LENS AND FRAMES PRESCRIPTION CLERK) TSH, Sensitive 1.5 0.3 - 4.2 mIU/L 06/20/2023 1:14 PM LENS AND FRAMES PRESCRIPTION CLERK DTL Blood (Blood, Venous) 06/20/2023 12:01 PM LENS AND FRAMES PRESCRIPTION CLERK 06/20/2023 12:41 PM LENS AND FRAMES PRESCRIPTION CLERK Pérez Zuniga M.D., Ph.D. LAB BLOO D ADD-ON Performing Organization Address [facility] Co de Phone Number [facility] [address] [place] [address], [facility] DTL [facility] [address] [place] [address] * (ABNORMAL) Comprehensive Metabolic Panel (06/20/2023 12:01 PM LENS AND FRAMES PRESCRIPTION CLERK) Potassium, S 4.0 3.6 - 5.2 mmol/L 06/20/2023 1:14 PM LENS AND FRAMES PRESCRIPTION CLERK DTL Sodium, S 137 135 - 145 mmol/L 06/20/2023 1:14 PM LENS AND FRAMES PRESCRIPTION CLERK DTL Chloride, S 101 98 - 107 mmol/L 06/20/2023 1:14 PM LENS AND FRAMES PRESCRIPTION CLERK DTL Bicarbonate, S 20(L) 22 - 29 mmol/L 06/20/2023 1:14 PM LENS AND FRAMES PRESCRIPTION CLERK DTL Anion Gap 16(H) 7 - 15 06/20/2023 1:14 PM LENS AND FRAMES PRESCRIPTION CLERK DTL BUN (Blood Urea Nitrogen), S 27(H) 6 - 21 mg/dL 06/20/2023 1:14 PM LENS AND FRAMES PRESCRIPTION CLERK DTL Creatinine 0.94 0.59 - 1.04 mg/dL 06/20/2023 1:14 PM LENS AND FRAMES PRESCRIPTION CLERK DTL Estimated GFR (eGFR) 76 >=60 mL/min/BS A 06/20/2023 1:14 PM LENS AND FRAMES PRESCRIPTION CLERK DTL Comment: Estimated GFR calculated using the 2020 CKD_EPI creatinine equation. Calcium, Total, S 9.7 8.6 - 10.0 mg/dL 06/20/2023 1:14 PM LENS AND FRAMES PRESCRIPTION CLERK DTL Glucose, S 101 70 - 140 mg/dL 06/20/2023 1:14 PM LENS AND FRAMES PRESCRIPTION CLERK DTL Protein, Total, S 7.7 6.3 - 7.9 g/dL 06/20/2023 1:14 PM LENS AND FRAMES PRESCRIPTION CLERK DTL Albumin, S 4.1 3.5 - 5.0 g/dL 06/20/2023 1:14 PM LENS AND FRAMES PRESCRIPTION CLERK DTL Aspartate Aminotransferase (AST), S 26 8 - 43 U/L 06/20/2023 1:14 PM LENS AND FRAMES PRESCRIPTION CLERK DTL Alkaline Phosphatase, S 277(H) 35 - 104 U/L 06/20/2023 1:14 PM LENS AND FRAMES PRESCRIPTION CLERK DTL Alanine Aminotransferase (ALT), S 22 7 - 45 U/L 06/20/2023 1:14 PM LENS AND FRAMES PRESCRIPTION CLERK DTL Bilirubin, Total, S 0.2 0.0 - 1.2 mg/dL 06/20/2023 1:14 PM LENS AND FRAMES PRESCRIPTION CLERK DTL Blood (Blood, Venous) 06/20/2023 12:01 PM LENS AND FRAMES PRESCRIPTION CLERK 06/20/2023 12:41 PM LENS AND FRAMES PRESCRIPTION CLERK Pérez Zuniga M.D., Ph.D. LAB BLOO D ADD-ON [facility] [address] [place] [address], [facility] [address] [place] [address] * (ABNORMAL) CBC with Differential, Blood (06/20/2023 12:01 PM LENS AND FRAMES PRESCRIPTION CLERK) Hemoglobin 7.6(L) 11.6 - 15.0 g/dL 06/20/2023 1:15 PM LENS AND FRAMES PRESCRIPTION CLERK DTL Hematocrit 24.1(L) 35.5 - 44.9 % 06/20/2023 1:15 PM LENS AND FRAMES PRESCRIPTION CLERK DTL Erythrocytes 2.49(L) 3.92 - 5.13 x10(12)/L 06/20/2023 1:15 PM LENS AND FRAMES PRESCRIPTION CLERK DTL MCV 96.8 78.2 - 97.9 fL 06/20/2023 1:15 PM LENS AND FRAMES PRESCRIPTION CLERK DTL RBC Distrib Width 16.2(H) 12.2 - 16.1 % 06/20/2023 1:15 PM LENS AND FRAMES PRESCRIPTION CLERK DTL Platelet Count 496(H) 157 - 371 x10(9)/L 06/20/2023 1:15 PM LENS AND FRAMES PRESCRIPTION CLERK DTL Leukocytes 7.9 3.4 - 9.6 x10(9)/L 06/20/2023 1:15 PM LENS AND FRAMES PRESCRIPTION CLERK DTL Neutrophils 4.72 1.56 - 6.45 x10(9)/L 06/20/2023 1:15 PM LENS AND FRAMES PRESCRIPTION CLERK DHPM Lymphocytes 1.98 0.95 - 3.07 x10(9)/L 06/20/2023 1:15 PM LENS AND FRAMES PRESCRIPTION CLERK DTL Monocytes 0.90(H) 0.26 - 0.81 x10(9)/L 06/20/2023 1:15 PM LENS AND FRAMES PRESCRIPTION CLERK DTL Eosinophils 0.22 0.03 - 0.48 x10(9)/L 06/20/2023 1:15 PM LENS AND FRAMES PRESCRIPTION CLERK DTL Basophils 0.07 0.01 - 0.08 x10(9)/L 06/20/2023 1:15 PM LENS AND FRAMES PRESCRIPTION CLERK DTL Blood (Blood, Venous) 06/20/2023 12:01 PM LENS AND FRAMES PRESCRIPTION CLERK 06/20/2023 12:26 PM LENS AND FRAMES PRESCRIPTION CLERK Pérez Zuniga M.D., Ph.D. LAB BLOO D ADD-ON [facility] [address] [place] [address], [facility] DTL [facility] [address] [place] [address] [facility] [address] [place] [address] * ECG 12 Lead (06/04/2023 4:02 PM LENS AND FRAMES PRESCRIPTION CLERK) Ventricular Rate ECG/Min 83 BPM MUSE RI Interval 146 ms MUSE QRSD Interval 84 ms MUSE QT Interval 392 ms MUSE QTC Interval 460 ms MUSE P Astor 50 degrees MUSE R [place] 51 degrees MUSE T Wave Astor -10 degrees MUSE 06/04/2023 4:02 PM LENS AND FRAMES PRESCRIPTION CLERK 06/04/2023 4:11 PM LENS AND FRAMES PRESCRIPTION CLERK Impressions MUSE - 06/04/2023 4:11 PM LENS AND FRAMES PRESCRIPTION CLERK Normal sinus rhythm Low voltage QRS Nonspecific ST and T wave abnormality No previous ECGs available Reviewed by BREANNA Schwarz Narrative Procedure Note Cornelius Amezcua M.D., Ph.D. - 06/04/2023 IMPRESSION: Normal sinus rhythm Low voltage QRS Nonspecific ST and T wave abnormality No previous ECGs available Reviewed by BREANNA Schwarz Svetomdenise Zuniga M.D., Ph.D. ECG ORDE [facility] MUSE NA * Interpretation of Outside NM PET Scan (06/04/2023 7:56 AM LENS AND FRAMES PRESCRIPTION CLERK) Anatomical Region Laterality Modality Nuclear Medicine PET RST LOS , Nuclear Medicine ARZ LOS, Nuclear Medicine FLA LOS, Nuclear Medicine, Other, Neuroradiology ARZ LOS, Neuroradiology FLA LOS, Neuroradiology RST LOS, Body N/A Nuclear Medicine 06/10/2023 8:28 AM LENS AND FRAMES PRESCRIPTION CLERK Impressions 06/10/2023 10:24 AM LENS AND FRAMES PRESCRIPTION CLERK 1. Large intensely hypermetabolic mixed solid and [...] of the report. Narrative 06/10/2023 10:24 AM LENS AND FRAMES PRESCRIPTION CLERK EXAM: ??INTERPRETATION OF OUTSIDE NM PET SCAN [...] of Outside MR Extremity (06/04/2023 7:54 AM LENS AND FRAMES PRESCRIPTION CLERK) Anatomical Region Laterality Modality Musculoskeletal RST LOS, Mus culoskeletal ARZ LOS, Muskuloskeletal FLA LOS, Musculoskeletal, Other N/A Magnet ic Resonance 06/04/2023 11:3 3 AM LENS AND FRAMES PRESCRIPTION CLERK Impressions 06/04/2023 11:45 AM LENS AND FRAMES PRESCRIPTION CLERK There are several 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 The largest is seen proximally extending off of the proximal vjyii-oq-apum. This involves the intertrochanteric left femur extending [...] diaphysis, which extends off of the proximal jbsqp-ll-qrem (series 3 and 4 image 15). The lesions right around the knee were not present on the MRI from October 2014 and correlate with areas of hypermetabolic activity on the recent PET CT. Findings are compatible with recent biopsy results of metastatic melanoma. Large bxuwh-qf-bwiu coronal and axial images include the right femur, which demonstrates numerous large intramedullary lesions throughout the right femoral diaphysis as well as the proximal right tibial diaphysis, as well. No definite discrete soft tissue masses within either thigh. Narrative 06/04/2023 11:45 AM LENS AND FRAMES PRESCRIPTION CLERK EXAM: ??INTERPRETATION OF OUTSIDE MR LEFT FEMUR [...] is seen proximally extending off of the wrrbtvkwkbbwc-ni-cgib. This involves the intertrochanteric left femur extendingdistally [...] tibial diaphysis, which extends offof the proximal fabmz-lo-olpw (series 3 and 4 image 15). The lesions right around the knee were not present on the MRIfrom October 2014 and correlate with areas of hypermetabolic activity on therecent PET CT. Findings are compatible with recent biopsy results ofmetastatic melanoma. Large aggky-sc-webb coronal and axial images include the right femur, whichdemonstrates numerous large intramedullary lesions throughout the rightfemoral diaphysis as well as the proximal right tibial diaphysis, as well.No definite discrete soft tissue masses within either thigh. Pérez Zuniga M.D., Ph.D. 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
--- OUTSIDE RECORDS SUMMARY | 2023-08-09 19:24 | XMS_ITS | Encounter Summary ---
Author Name Unknown Organization [facility] Address [address] [place] [address] Care Team Providers Care Activities Coordinator Name Role Phone Elsewhere, Pcp Primary Care Provider Unavailabl e Reason for Visit * Reason Onset Date Comments Pre-visit Testing Orders 05/28/2023 New Reg Encounter Details Date Type Department Care Team (Latest Contact Info) Description 05/28/2023 Clinical Communication Department of Oncology in [place], [place] [address] [place] [phone] Naida Mejia P.A.-C., M.S. [address] [place] [phone] Pre-visit Testing Orders (New Reg) Social History Tobacco Use Types Packs/Day Years Used Date Smoking Tobacco: Never Assessed Nutrition Answer Date Recorded Nutrition: EVOO Fat Source Unknown 05/06 Nutrition: Servings of Fruits/Vegetables per Day Not on file 05/06/2023 Dental Answer Date Recorded Dental: Regular Dentist Unknown 05/06/20 Sex and Gender Information Value Date Recorded Sex Assigned at Female 05/31/2023 8:26 AM FRENCH LECTURER Gender Identity Female 05/31/2023 8:26 AM FRENCH LECTURER Sexual Orientation Straight 05/31/2023 8: 26 AM FRENCH LECTURER documented as of this encounter Plan of Treatment Upcoming Encounters Date Type Department Care Team (Late st Contact Info) Description 08/19/2023 6:40 AM FRENCH LECTURER Appointment Department of Laboratory Medicine and Pathology, [facility] in [place], [place] [address] [place] [phone] Pérez Zuniga M.D., Ph.D. [address] [place] [phone] 08/19/2023 7:00 AM FRENCH LECTURER Ancillary Procedure Department of Cardiovascular Medicine in [place], [place] [address] [place] [phone] Pérez Zuniga M.D., Ph.D. [address] [place] [phone] 08/19/2023 9:00 AM FRENCH LECTURER Appointment Department of Radiology, [facility] in [place], [place] [address] [place] [phone] Pérez Zuniga M.D., Ph.D. [address] [place] [phone] 08/19/2023 3:40 PM FRENCH LECTURER Office Visit Department of Oncology in [place], [place] [address] [place] [phone] Zhane Granados, GAIL, C.N.P. [address] [place] [phone] 08/21/2023 10:15 AM FRENCH LECTURER Clinical Support Department of Palliative Care in [place], [place] [address] [place] [phone] Serenity Kelsey, P.A.-C. [address] [place] [phone] Meka Rinaldi D.N.P., R.N., [facility] documented as of this encounter Visit Diagnoses Not on filedocumented in this encounter Additional Health Concerns Infection Onset Date Last Indicated Resolved Time Protective Environment 06/04/2023 06/04/2023 documented as of this encounter Care Teams Activities Coordinator Relationship Specialty Start Date End Date Elsewhere, Pcp PCP - General Family Medicine 06/17/23 documented as of this encounter
--- OUTSIDE RECORDS SUMMARY | 2023-08-09 19:24 | XMS_ITS | Encounter Summary ---
Author Name Unknown Organization [facility] Address [address] [place] [address] Care Team Providers Care Lubrication Technician Name Role Phone Unavailable Primary Care Provider Unavailabl e Reason for Visit * MRI/CAT/PET Scan (Routine) - Authorized Specialty Diagnoses / Procedures Referred By Mikki feliciano Referred To Contact Radiology Diagnoses Tumor Bone Procedures CT Bone Biopsy Lacho Joshi M.D. [address] [place] [phone] [facility] Referral ID Status Reason Start Date Expiration Date V isits Requested Visits Authorized [id number] Authorized 05/07/2023 05/06/2024 1 1 Encounter Details Date Type Department Care Team (Latest Contact Info) Description 05/13/2023 11:59 PM CDT Hospital Encounter Department of Radiology, [facility] in [place], [place] [address] [place] [phone] Lacho Joshi M.D. [address] [place] [phone] Canceled (Patient: Request) Discharge Disposition: Home or [...] Sex Assigned at Female 05/31/2023 8:26 AM ADVENTURE CHALLENGE INSTRUCTOR Gender Identity Female 05/31/2023 8:26 AM ADVENTURE CHALLENGE INSTRUCTOR Sexual Orientation Straight 05/31/2023 8: 26 AM ADVENTURE CHALLENGE INSTRUCTOR documented as of this encounter Medications at [...] st Contact Info) Description 08/19/2023 6:40 AM ADVENTURE CHALLENGE INSTRUCTOR Appointment Department of Laboratory Medicine and Pathology, [place], [place] [address] [place] [phone] Pérez Zuniga M.D., Ph.D. [address] [place] [phone] 08/19/2023 7:00 AM ADVENTURE CHALLENGE INSTRUCTOR Ancillary Procedure Department of Cardiovascular Medicine in [place], [place] [address] [place] [phone] Pérez Zuniga M.D., Ph.D. [address] [place] [phone] 08/19/2023 9:00 AM ADVENTURE CHALLENGE INSTRUCTOR Appointment Department of Radiology, [facility] in [place], [place] [address] [place] [phone] Pérez Zuniga M.D., Ph.D. [address] [place] [phone] 08/19/2023 3:40 PM ADVENTURE CHALLENGE INSTRUCTOR Office Visit Department of Oncology in [place], [place] [address] [place] [phone] Zhane Granados APRN, C.N.P. [address] [place] [phone] 08/21/2023 10:15 AM ADVENTURE CHALLENGE INSTRUCTOR Clinical Support Department of Palliative Care in [place], [place] [address] [place] [phone] Serenity Kelsey, P.A.-C. [address] [place] [phone] Meka Rinaldi D.N.P., R.N., [facility] documented as of this encounter Visit Diagnoses Not on filedocumented in this encounter
--- OUTSIDE RECORDS SUMMARY | 2023-08-09 19:24 | XMS_ITS | Encounter Summary ---
Author Name Unknown Organization [facility] Address [address] [place] [address] Care Team Providers Care Chef Manager Name Role Phone Unavailable Primary Care Provider Unavailabl e Encounter Details Date Type Department Care Team (Late st Contact Info) Description 05/29/2023 2:15 PM OUTPATIENT ADMITTING CLERK Admin Visit Department of Oncology in [place], [place] [address] [place] [phone] Social History Tobacco Use Types Packs/Day Years Used Date Smoking Tobacco: Never Assessed Nutrition Answer Date Recorded Nutrition: EVOO Fat Source Unknown 05/06 Nutrition: Servings of Fruits/Vegetables per Day Not on file 05/06/2023 Dental Answer Date Recorded Dental: Regular Dentist Unknown 05/06/20 Sex and Gender Information Value Date Recorded Sex Assigned at Female 05/31/2023 8:26 AM OUTPATIENT ADMITTING CLERK Gender Identity Female 05/31/2023 8:26 AM OUTPATIENT ADMITTING CLERK Sexual Orientation Straight 05/31/2023 8: 26 AM OUTPATIENT ADMITTING CLERK documented as of this encounter Plan of Treatment Upcoming Encounters Date Type Department Care Team (Late Contact Info) Description 08/19/2023 6:40 AM OUTPATIENT ADMITTING CLERK Appointment Department of Laboratory Medicine and Pathology, [facility], in [place], [place] [address] [place] [phone] Pérez Zuniga M.D., Ph.D. [address] [place] [phone] 08/19/2023 7:00 AM OUTPATIENT ADMITTING CLERK Ancillary Procedure Department of Cardiovascular Medicine in [place], [place] [address] [place] [address] Pérez Zuniga M.D., Ph.D. [address] [place] [phone] 08/19/2023 9:00 AM OUTPATIENT ADMITTING CLERK Appointment Department of Radiology, [facility] in [place], [place] [address] [place] [address] Pérez Zuniga M.D., Ph.D. [address] [place] [phone] 08/19/2023 3:40 PM OUTPATIENT ADMITTING CLERK Office Visit Department of Oncology in [place], [place] [address] [place] [address] Zhane Granados, GOSPEL SINGER, C.N.P. [address] [place] [phone] 08/21/2023 10:15 AM OUTPATIENT ADMITTING CLERK Clinical Support Department of Palliative Care in [place], [place] [address] [place] [address] Serenity Kelsey, P.A.-C. [address] [place] [phone] Meka Rinaldi D.N.P., R.N., [facility] documented as of this encounter Visit Diagnoses Not on filedocumented in this encounter
--- OUTSIDE RECORDS SUMMARY | 2023-08-09 19:24 | XMS_ITS | Encounter Summary ---
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 [address] [place] [phone] [facility] Referral ID Status Reason Start Date Expiration Date Visits Re quested Visits Authorized [id number] Closed 05/22/2023 05/21/2024 1 1 Encounter Details Date Type Department Care Team (Latest Contact Info) Description 05/29/2023 5:50 PM HARDBOARD PRESS OPERATOR - 05/29/2023 11:59 PM HARDBOARD PRESS OPERATOR Hospital Encounter Department of Radiology, [facility] in [place], [place] [address] [place] [address] Naida Mejia P.A.-C., M.S. [address] [place] [address] Melanoma Trunk (HCC); Secondary Malignant Neoplasm Bone [...] Sex Assigned at Female 05/31/2023 8:26 AM HARDBOARD PRESS OPERATOR Gender Identity Female 05/31/2023 8:26 AM HARDBOARD PRESS OPERATOR Sexual Orientation Straight 05/31/2023 8: 26 AM HARDBOARD PRESS OPERATOR documented as of this encounter Last Filed Vital Signs Vital Sign Reading Time Taken Comments Blood Pressure - - Pulse - - Temperature - - Respiratory Rate - - Oxygen Saturation - - Inhaled Oxygen Concentration - - Weight - - Height 157.5 cm (5' 2) 05/29/2023 6:22 PM HARDBOARD PRESS OPERATOR Body Mass Index - - documented in [...] st Contact Info) Description 08/19/2023 6:40 AM HARDBOARD PRESS OPERATOR Appointment Department of Laboratory Medicine and Pathology, [facility] in [address] [phone] Pérez Zuniga M.D., Ph.D. [address] [place] [phone] 08/19/2023 7:00 AM HARDBOARD PRESS OPERATOR Ancillary Procedure Department of Cardiovascular Medicine in [address] [phone] Pérez Zuniga M.D., Ph.D. [address] [place] [phone] 08/19/2023 9:00 AM HARDBOARD PRESS OPERATOR Appointment Department of Radiology, [facility] in [address] [phone] Pérez Zuniga M.D., Ph.D. [address] [place] [phone] 08/19/2023 3:40 PM HARDBOARD PRESS OPERATOR Office Visit Department of Oncology in [address] [phone] Zhane Granados APRN, C.N.P. [address] [place] [phone] 08/21/2023 10:15 AM HARDBOARD PRESS OPERATOR Clinical Support Department of Palliative Care in [address] [phone] Serenity Kelsey, P.A.-C. 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 No significant associated mass effect or hydrocephalus. Narrative 05/30/2023 10:38 AM HARDBOARD PRESS OPERATOR EXAM: MR BRAIN WITHOUT AND WITH IV [...] venous anomaly. Procedure Note Antonio Wood M.D., [facility] - 05/30/2023 EXAM: MR BRAIN WITHOUT AND [...] mL not recommended. Given 05/29/2023 7:09 PM HARDBOARD PRESS OPERATOR 7.5 mL documented in this encounter
--- OUTSIDE RECORDS SUMMARY | 2023-08-09 19:24 | XMS_ITS | Encounter Summary ---
Author Name Unknown Organization [facility] Address [address] [place] [address] Care Team Providers Care Wastewater Treatment Plant Operator Name Role Phone Unavailable Primary Care Provider Unavailabl e Reason for Visit * Reason Onset Date Comments Pre-visit Intake 05/22/2023 NEW REG Encounter Details Date Type Department Care Team (Latest Contact Info) Description 05/22/2023 Clinical Communication Department of Oncology in [place], [place] [address] [place] [address] Prescheduling, Provider Pre-visit Intake (NEW REG ) Social History Tobacco Use Types Packs/Day Years Used Date Smoking Tobacco: Never Assessed Nutrition Answer Date Recorded Nutrition: EVOO Fat Source Unknown 05/06 Nutrition: Servings of Fruits/Vegetables per Day Not on file 05/06/2023 Dental Answer Date Recorded Dental: Regular Dentist Unknown 05/06/20 Sex and Gender Information Value Date Recorded Sex Assigned at Female 05/31/2023 8:26 AM PORTABLE TRACK LINE MARKER Gender Identity Female 05/31/2023 8:26 AM PORTABLE TRACK LINE MARKER Sexual Orientation Straight 05/31/2023 8: 26 AM PORTABLE TRACK LINE MARKER documented as of this encounter Plan of Treatment Upcoming Encounters Date Type Department Care Team (Late st Contact Info) Description 08/19/2023 6:40 AM PORTABLE TRACK LINE MARKER Appointment Department of Laboratory Medicine and Pathology, [facility], in [place], [place] [address] [place] [address] Pérez Zuniga M.D., Ph.D. [address] [place] [phone] 08/19/2023 7:00 AM PORTABLE TRACK LINE MARKER Ancillary Procedure Department of Cardiovascular Medicine in [place], [place] [address] [place] [address] Pérez Zuniga M.D., Ph.D. [address] [place] [phone] 08/19/2023 9:00 AM PORTABLE TRACK LINE MARKER Appointment Department of Radiology, [facility], in [place], [place] [address] [place] [address] Pérez Zuniga M.D., Ph.D. [address] [place] [phone] 08/19/2023 3:40 PM PORTABLE TRACK LINE MARKER Office Visit Department of Oncology in [place], [place] [address] [place] [phone] Zhane Granados, SPECIFICATION WRITER, C.N.P. [address] [place] [phone] 08/21/2023 10:15 AM PORTABLE TRACK LINE MARKER Clinical Support Department of Palliative Care in [place], [place] [address] [place] [address] Serenity Kelsey, P.A.-C. [address] [place] [phone] Meka Rinaldi, Elvin.N.P., R.N., [facility] documented as of this encounter Visit Diagnoses Not on filedocumented in this encounter
--- OUTSIDE RECORDS SUMMARY | 2023-08-09 19:24 | XMS_ITS | Encounter Summary ---
Author Name Unknown Organization [facility] Address [address] [place] [address] Care Team Providers Care Park Worker Name Role Phone Unavailable Primary Care Provider Unavailabl e Reason for Referral * MRI/CAT/PET Scan (Routine) - Authorized Specialty Diagnoses / Procedures Referred By Mikki feliciano Referred To Contact Radiology Diagnoses Tumor Bone Procedures CT Bone Biopsy Lacho Joshi M.D. 200 [place] [address] [facility] Referral ID Status Reason Start Date Expiration Date V isits Requested Visits Authorized [id number] Authorized 05/07/2023 05/06/2024 1 1 * Outpatient (Routine) - Authorized Specialty Diagnoses / Procedures Referred By Mikki feliciano Referred To Contact Diagnoses Tumor Bone Procedures DX Femur Left 2 Views Lacho Joshi M.D. [address] [place] [address] [facility] Referral ID Status Reason Start Date Expiration Date V isits Requested Visits Authorized [id number] Authorized 05/07/2023 05/06/2024 1 1 Encounter Details Date Type Department Care Team (Late st Contact Info) Description 05/07/2023 Orders Only Department of Orthopedic Surgery in [place], [place] [address] [place] [phone] Lacho Joshi M.D. [address] [place] [phone] Tumor Bone (Primary Dx) Social History Tobacco Use Types Packs/Day Years Used Date Smoking Tobacco: Never Assessed Nutrition Answer Date Recorded Nutrition: EVOO Fat Source Unknown 05/06 Nutrition: Servings of Fruits/Vegetables per Day Not on file 05/06/2023 Dental Answer Date Recorded Dental: Regular Dentist Unknown 05/06/20 Sex and Gender Information Value Date Recorded Sex Assigned at Female 05/31/2023 8:26 AM SYNTHETIC DEPARTMENT SUPERVISOR Gender Identity Female 05/31/2023 8:26 AM SYNTHETIC DEPARTMENT SUPERVISOR Sexual Orientation Straight 05/31/2023 8: 26 AM SYNTHETIC DEPARTMENT SUPERVISOR documented as of this encounter Plan of Treatment Upcoming Encounters Date Type Department Care Team (Late st Contact Info) Description 08/19/2023 6:40 AM SYNTHETIC DEPARTMENT SUPERVISOR Appointment Department of Laboratory Medicine and Pathology, [facility] in [place], [place] [address] [place] [phone] Pérez Zuniga M.D., Ph.D. [address] [place] [phone] 08/19/2023 7:00 AM SYNTHETIC DEPARTMENT SUPERVISOR Ancillary Procedure Department of Cardiovascular Medicine in [place], [place] [address] [place] [phone] Pérez Zuniga M.D., Ph.D. [address] [place] [phone] 08/19/2023 9:00 AM SYNTHETIC DEPARTMENT SUPERVISOR Appointment Department of Radiology, [facility] in [place], [place] [address] [place] [address] Pérez Zuniga M.D., Ph.D. [address] [place] [phone] 08/19/2023 3:40 PM SYNTHETIC DEPARTMENT SUPERVISOR Office Visit Department of Oncology in [place], [place] [address] [place] [phone] Zhane Granados APRN, C.N.P. [address] [place] [phone] 08/21/2023 10:15 AM SYNTHETIC DEPARTMENT SUPERVISOR Clinical Support Department of Palliative Care in [place], [place] [address] [place] [phone] Serenity Kelsey, PSantoshA.-C. [address] [place] [phone] Meka Rinaldi D.N.P., R.N., [facility] Scheduled Orders Name Type Priority Associated [...]
--- OUTSIDE RECORDS SUMMARY | 2023-08-09 19:24 | XMS_ITS | Encounter Summary ---
Author Name Unknown Organization [facility] Address [address] [place] [address] Care Team Providers Care Lathe Operator Name Role Phone Unavailable Primary Care Provider Unavailabl e Encounter Details Date Type Department Care Team (Late st Contact Info) Description 05/24/2023 7:55 AM PROTOTYPE ASSEMBLER ELECTRONICS Lab RST RO LMP [address] [place] [phone] Naida Mejia P.A.-C., M.S. [address] [place] [phone] Melanoma Trunk (HCC); Secondary Malignant Neoplasm Bone [...] Sex Assigned at Female 05/31/2023 8:26 AM PROTOTYPE ASSEMBLER ELECTRONICS Gender Identity Female 05/31/2023 8:26 AM PROTOTYPE ASSEMBLER ELECTRONICS Sexual Orientation Straight 05/31/2023 8: 26 AM PROTOTYPE ASSEMBLER ELECTRONICS documented as of this encounter Plan of Treatment Upcoming Encounters Date Type Department Care Team (Late st Contact Info) Description 08/19/2023 6:40 AM PROTOTYPE ASSEMBLER ELECTRONICS Appointment Department of Laboratory Medicine and Pathology, [facility] in [place], [place] [address] [place] [phone] Pérez Zuniga M.D., Ph.D. [address] [place] [phone] 08/19/2023 7:00 AM PROTOTYPE ASSEMBLER ELECTRONICS Ancillary Procedure Department of Cardiovascular Medicine in [place], [place] [address] [place] [phone] Pérez Zuniga M.D., Ph.D. [address] [place] [phone] 08/19/2023 9:00 AM PROTOTYPE ASSEMBLER ELECTRONICS Appointment Department of Radiology, [facility] in [place], [place] [address] [place] [phone] Pérez Zuniga M.D., Ph.D. [address] [place] [phone] 08/19/2023 3:40 PM PROTOTYPE ASSEMBLER ELECTRONICS Office Visit Department of Oncology in [address] [phone] Zhane Granados, GAIL, C.N.P. [address] [place] [phone] 08/21/2023 10:15 AM PROTOTYPE ASSEMBLER ELECTRONICS Clinical Support Department of Palliative Care in [place], [place] [address] [place] [phone] Serenity Kelsey, P.A.-C. [address] [place] [phone] Meka Rinaldi D.N.P., R.N., [facility] documented as of this encounter Procedures Procedure [...] c.1799T>A (Exon 15) Amino Acid Change: p.V600E (Rma820Vdb) Variant Allele Frequency: 49.9% No other reportable sequence variants were detected within the analyzed regions of the tested genes listed in the method description. 06/24/2023 1:13 PM PROTOTYPE ASSEMBLER ELECTRONICS DTL Additional Information CLINICAL TRIALS Possible clinical trials of benefit for this patient can be found at the following sites: 1) ClinicalTrials.gov: www.clinicaltrials. gov/ct2/search/adva nced 2) [facility]: www.[facility]/resear ch/clinical-trials/ 3) National Cancer [place]: www.cancer.gov/clin icaltrials/search REFERENCE TRANSCRIPT Sequence variant nomenclature is based on the following RefSeq accession number (build GRCh37 (hg19)):BRAF [id number]. 06/24/2023 1:13 PM PROTOTYPE ASSEMBLER ELECTRONICS DTL Specimen Tissue, Tumor 06/24/2023 1:13 PM PROTOTYPE ASSEMBLER ELECTRONICS DTL Tissue ID [id number] 06/24/2023 1:13 PM PROTOTYPE ASSEMBLER ELECTRONICS DTL Method Microscopic examination is performed by [...] and additional information on this test, see www.[employer]. [employer] (Test ID BRFKT). 06/24/2023 1:13 PM PROTOTYPE ASSEMBLER ELECTRONICS DTL Disclaimer This test cannot differentiate between [...] of heterozygosity) and sequencing artifact/misalignme nt [PMID: 25083046, PMID: 63367408]. Rare polymorphisms may be present that could [...] developed and its performance characteristics determined by [facility] in a manner consistent with CLIA requirements. This test has not been cleared or approved by the U.S. Food and Drug Administration. 06/24/2023 1:13 PM PROTOTYPE ASSEMBLER ELECTRONICS DTL Released By Lexy Lang M.D. 06/24/2023 1:13 PM PROTOTYPE ASSEMBLER ELECTRONICS DTL Interpretation BRAF c.1799T>A (p.V600E) (Exon 15) BRAF encodes the signaling protein Braf, which is downstream of Eduardo and activates the MAPK pathway. Braf signaling is critically involved in the processes of cell division and differentiation. BRAF activating mutations occur predominantly at a single location (V600E). BRAF activating mutations or amplification have been reported to result in uncontrolled cell growth and tumorigenesis [PMID:[id number], PMID:95650272]. Clinically approved targeted therapy is available for patients with unresectable or metastatic solid tumors with a BRAF V600E mutation [fda.gov/drugs]. 06/24/2023 1:13 PM PROTOTYPE ASSEMBLER ELECTRONICS DTL Tissue (Bone) 05/13/2023 8:2 7 AM CDT 06/16/2023 1:57 PM PROTOTYPE ASSEMBLER ELECTRONICS Naida Mejia P.A.-C. MSantoshS. 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
--- OUTSIDE RECORDS SUMMARY | 2023-08-09 19:24 | XMS_ITS | Encounter Summary ---
Author Name Unknown Organization [facility] Address [address] [place] [address] Care Team Providers Care Network Support Administrator Name Role Phone Elsewhere, Pcp Primary Care Provider Unavailabl e Reason for Visit * Reason Onset Date Comments Pre-visit Testing Orders 05/29/2023 Encounter Details Date Type Department Care Team (Latest Contact Info) Description 05/29/2023 Clinical Communication Department of Oncology in [place], [place] [address] [place] [phone] Naida Mejia P.A.-C., M.S. [address] [place] [phone] Pre-visit Testing Orders Social History Tobacco Use Types Packs/Day Years Used Date Smoking Tobacco: Never Assessed Nutrition Answer Date Recorded Nutrition: EVOO Fat Source Unknown 05/06 Nutrition: Servings of Fruits/Vegetables per Day Not on file 05/06/2023 Dental Answer Date Recorded Dental: Regular Dentist Unknown 05/06/20 Sex and Gender Information Value Date Recorded Sex Assigned at Female 05/31/2023 8:26 AM SIZER HAND Gender Identity Female 05/31/2023 8:26 AM SIZER HAND Sexual Orientation Straight 05/31/2023 8: 26 AM SIZER HAND documented as of this encounter Plan of Treatment Upcoming Encounters Date Type Department Care Team (Late st Contact Info) Description 08/19/2023 6:40 AM SIZER HAND Appointment Department of Laboratory Medicine and Pathology, [facility] in [place], [place] [address] [place] [phone] Pérez Zuniga M.D., Ph.D. [address] [place] [phone] 08/19/2023 7:00 AM SIZER HAND Ancillary Procedure Department of Cardiovascular Medicine in [place], [place] [address] [place] [phone] Pérez Zuniga M.D., Ph.D. [address] [place] [phone] 08/19/2023 9:00 AM SIZER HAND Appointment Department of Radiology, [facility] in [place], [place] [address] [place] [phone] Pérez Zuniga M.D., Ph.D. [address] [place] [phone] 08/19/2023 3:40 PM SIZER HAND Office Visit Department of Oncology in [place], [place] [address] [place] [phone] Zhane Granados, AIR QUALITY INSTRUMENT SPECIALIST, C.N.P. [address] [place] [phone] 08/21/2023 10:15 AM SIZER HAND Clinical Support Department of Palliative Care in [place], [place] [address] [place] [phone] Serenity Kelsey, P.A.-C. [address] [place] [phone] Meka Rinaldi D.N.P., R.N., [facility] documented as of this encounter Results * Pathology Review of Outside Material (05/13/2023 1:26 AM CDT) 06/10/2023 3:51 PM SIZER HAND DTL Participated in the Interpretation Yann Dixon M.D.-Pathology Fellow 06/10/2023 3:51 PM SIZER HAND DTL Report electronically signed by Jose Willis M.D. I verify that I have examined all relevant slides/materials for the specimen(s) and rendered or confirmed the diagnosis. 06/10/2023 3:51 PM SIZER HAND DTL Material Received A. [id number]: Left femur ? 22 stained slides, 20 unstained slides 06/10/2023 3:51 PM SIZER HAND DTL Addendum Genetic testing for BRAF/KIT Mutation Analysis, Tumor (BRFKT) ??will be performed and resulted in the patient's medical record. Signed by Cl Edwards M.D. 06/14/2023 10:19 AM 06/14/2023 10:19 AM SIZER HAND DTL Comment:REVISED RESULTS Interpretation FINAL DIAGNOSIS Left femur mass, biopsy ([id number]; 05/13/2023): Metastatic melanoma, diffusely positive for BRAF [...] hesitate to reach me by calling [facility] vufind at [phone]. 06/14/2023 10:19 AM SIZER HAND DTL Varies 05/13/2023 1:26 AM CDT 06/05/2023 7:18 PM SIZER HAND Naida Mejia P.A.-C. MSantoshS. LAB SURG PATH ORDERABLES [facility] [address] [place] [address], [facility] DTL [address] [place] [address] documented in this encounter Visit Diagnoses Diagnosis Melanoma Trunk (HCC)- Primary Secondary Malignant Neoplasm Bone (HCC) documented in this encounter Additional Health Concerns Infection Onset Date Last Indicated Resolved Time Protective Environment 06/04/2023 06/04/2023 documented as of this encounter Care Teams Network Support Administrator Relationship Specialty Start Date End Date Elsewhere, Pcp PCP - General Family Medicine 06/17/23 documented as of this encounter
--- OUTSIDE RECORDS SUMMARY | 2023-08-09 19:24 | XMS_ITS | Encounter Summary ---
Author Name Unknown Organization [facility] Address [address] [place] [address] Care Team Providers Care Fuel Cell Test Engineer Name Role Phone Elsewhere, Pcp Primary Care Provider Unavailabl e Reason for Visit * Reason Onset Date Comments OSM 05/23/2023 Med Onc Encounter Details Date Type Department Care Team (Late st Contact Info) Description 05/23/2023 Clinical Communication Department of Oncology in [place], [place] [address] [place] [phone] Provider, Unknown OSM (Med Onc) Social History Tobacco Use Types Packs/Day Years Used Date Smoking Tobacco: Never Assessed Nutrition Answer Date Recorded Nutrition: EVOO Fat Source Unknown 05/06 Nutrition: Servings of Fruits/Vegetables per Day Not on file 05/06/2023 Dental Answer Date Recorded Dental: Regular Dentist Unknown 05/06/20 Sex and Gender Information Value Date Recorded Sex Assigned at Female 05/31/2023 8:26 AM MANAGER SEMICONDUCTOR Gender Identity Female 05/31/2023 8:26 AM MANAGER SEMICONDUCTOR Sexual Orientation Straight 05/31/2023 8: 26 AM MANAGER SEMICONDUCTOR documented as of this encounter Plan of Treatment Upcoming Encounters Date Type Department Care Team (Late st Contact Info) Description 08/19/2023 6:40 AM MANAGER SEMICONDUCTOR Appointment Department of Laboratory Medicine and Pathology, [facility], in [place], [place] [address] [place] [address] Pérez Zuniga M.D., Ph.D. [address] [place] [phone] 08/19/2023 7:00 AM MANAGER SEMICONDUCTOR Ancillary Procedure Department of Cardiovascular Medicine in [place], [place] [address] [place] [phone] Pérez Zuniga M.D., Ph.D. [address] [place] [phone] 08/19/2023 9:00 AM MANAGER SEMICONDUCTOR Appointment Department of Radiology, [facility], in [address] [phone] Pérez Zuniga M.D., Ph.D. [address] [place] [phone] 08/19/2023 3:40 PM MANAGER SEMICONDUCTOR Office Visit Department of Oncology in [address] [phone] Zhane Granados, MACHINERY ENGINEER, C.N.P. [address] [place] [phone] 08/21/2023 10:15 AM MANAGER SEMICONDUCTOR Clinical Support Department of Palliative Care in [address] [phone] Serenity Kelsey, P.A.-C. [address] [place] [phone] Meka Rinaldi D.N.P., R.N., [facility] documented as of this encounter Visit Diagnoses Not on filedocumented in this encounter Additional Health Concerns Infection Onset Date Last Indicated Resolved Time Protective Environment 06/04/2023 06/04/2023 documented as of this encounter Care Teams Fuel Cell Test Engineer Relationship Specialty Start Date End Date Elsewhere, Pcp PCP - General Family Medicine 06/17/23 documented as of this encounter
--- OUTSIDE RECORDS SUMMARY | 2023-08-09 19:24 | XMS_ITS | Encounter Summary ---
Author Name Unknown Organization [facility] Address [address] [place] [address] Care Team Providers Care Career Development Director Name Role Phone Unavailable Primary Care Provider Unavailabl e Encounter Details Date Type Department Care Team (Latest Contact Info) Description 06/04/2023 7:35 AM MANAGER DELIVERY Ancillary Procedure Department of Radiology in [place], [place] [address] [place] [address] Pérez Zuniga M.D., Ph.D. [address] [place] [phone] Melanoma Trunk (HCC); Secondary Malignant Neoplasm Bone [...] Assigned at Female 05/31/2023 8:26 AM MANAGER DELIVERY Gender Identity Female 05/31/2023 8:26 AM MANAGER DELIVERY Sexual Orientation Straight 05/31/2023 8: 26 AM MANAGER DELIVERY documented as of this encounter Plan of Treatment Upcoming Encounters Date Type Department Care Team (Late st Contact Info) Description 08/19/2023 6:40 AM MANAGER DELIVERY Appointment Department of Laboratory Medicine and Pathology, [facility] in [place], [place] [address] [place] [phone] Pérez Zuniga M.D., Ph.D. [address] [place] [phone] 08/19/2023 7:00 AM MANAGER DELIVERY Ancillary Procedure Department of Cardiovascular Medicine in [place], [place] [address] [place] [phone] Pérez Zuniga M.D., Ph.D. [address] [place] [phone] 08/19/2023 9:00 AM MANAGER DELIVERY Appointment Department of Radiology, [facility] in [place], [place] [address] [place] [phone] Pérez Zuniga M.D., Ph.D. [address] [place] [phone] 08/19/2023 3:40 PM MANAGER DELIVERY Office Visit Department of Oncology in [place], [place] [address] [place] [phone] Zhane Granados, ASSISTANT OFFSET PRESS OPERATOR, C.N.P. [address] [place] [phone] 08/21/2023 10:15 AM MANAGER DELIVERY Clinical Support Department of Palliative Care in [place], [place] [address] [place] [phone] Serenity Kelsey, P.A.-C. 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 Large intensely hypermetabolic mixed solid and [...] of the report. Narrative 06/10/2023 10:24 AM MANAGER DELIVERY EXAM: ??INTERPRETATION OF OUTSIDE NM PET SCAN [...] of the report. Pérez Zuniga M.D., Ph.D. 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
--- OUTSIDE RECORDS SUMMARY | 2023-08-09 19:24 | XMS_ITS | Encounter Summary ---
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 [address] [place] [phone] [facility] Referral ID Status Reason Start Date Expiration Date Visits Re quested Visits Authorized [id number] Closed 05/22/2023 05/21/2024 1 1 Scheduling Instructions Please coordinate with medical oncology visits, as able. 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 [address] [place] [phone] [facility] Referral ID Status Reason Start Date Expiration Date Visits Re quested Visits Authorized [id number] Closed 05/22/2023 05/21/2024 1 1 NG MACHINES SALESPERSON Encounter Details Date Type Department Care Team (Late st Contact Info) Description 05/22/2023 Clinical Communication Department of Oncology in [place], [place] [address] [place] [phone] Naida Mejia P.A.-C., M.S. [address] [place] [phone] Social History Tobacco Use Types Packs/Day Years Used Date Smoking Tobacco: Never Assessed Nutrition Answer Date Recorded Nutrition: EVOO Fat Source Unknown 05/06 Nutrition: Servings of Fruits/Vegetables per Day Not on file 05/06/2023 Dental Answer Date Recorded Dental: Regular Dentist Unknown 05/06/20 Sex and Gender Information Value Date Recorded Sex Assigned at Female 05/31/2023 8:26 AM SEWING MACHINES SALESPERSON Gender Identity Female 05/31/2023 8:26 AM SEWING MACHINES SALESPERSON Sexual Orientation Straight 05/31/2023 8: 26 AM SEWING MACHINES SALESPERSON documented as of this encounter Miscellaneous Notes [...] External Pathology Dermatology for full skin exam NG MACHINES SALESPERSON documented in this encounter Plan of Treatment Upcoming Encounters Date Type Department Care Team (Late st Contact Info) Description 08/19/2023 6:40 AM SEWING MACHINES SALESPERSON Appointment Department of Laboratory Medicine and Pathology, [facility], in [place], [place] [address] [place] [phone] Pérez Zuniga M.D., Ph.D. [address] [place] [phone] 08/19/2023 7:00 AM SEWING MACHINES SALESPERSON Ancillary Procedure Department of Cardiovascular Medicine in [place], [place] [address] [place] [phone] Pérez Zuniga M.D., Ph.D. [address] [place] [phone] 08/19/2023 9:00 AM SEWING MACHINES SALESPERSON Appointment Department of Radiology, [facility], in [place], [place] [address] [place] [phone] Pérez Zuniga M.D., Ph.D. [address] [place] [phone] 08/19/2023 3:40 PM SEWING MACHINES SALESPERSON Office Visit Department of Oncology in [place], [place] [address] [place] [phone] Zhane Granados, SHIPPING TECHNICIAN, C.N.P. [address] [place] [phone] 08/21/2023 10:15 AM SEWING MACHINES SALESPERSON Clinical Support Department of Palliative Care in [place], [place] [address] [place] [phone] Serenity Kelsey, P.A.-C. 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 No significant associated mass effect or hydrocephalus. Narrative 05/30/2023 10:38 AM SEWING MACHINES SALESPERSON EXAM: MR BRAIN WITHOUT AND WITH IV [...] venous anomaly. Procedure Note Antonio Wood M.D., [facility] [place] - 05/30/2023 EXAM: MR BRAIN WITHOUT AND [...] IMG MRI PROCEDURES * (ABNORMAL) Thyroid Function [place] (05/29/2023 5:35 PM SEWING MACHINES SALESPERSON) TSH, Sensitive 4.7(H) 0.3 - 4.2 mIU/L 05/29/2023 6:46 PM SEWING MACHINES SALESPERSON DTL Blood (Blood, Venous) 05/29/2023 5:35 PM SEWING MACHINES SALESPERSON 05/29/2023 6:09 PM SEWING MACHINES SALESPERSON Naida Mejia P.A.-C., M.S. LAB BLOO D ADD-ON Performing Organization Address City/[facility]/ZIP Co de Phone Number [facility] [address] [facility] [address] [place] [address] * (ABNORMAL) LD (Lactate Dehydrogenase) (05/29/2023 5:35 PM SEWING MACHINES SALESPERSON) Lactate Dehydrogenase (LD), S 439(H) 122 - 222 U/L 05/29/2023 6:46 PM SEWING MACHINES SALESPERSON DTL Blood (Blood, Venous) 05/29/2023 5:35 PM SEWING MACHINES SALESPERSON 05/29/2023 6:09 PM SEWING MACHINES SALESPERSON Naida Mejia P.A.-C., M.S. LAB BLOO D NON ADD-ON [facility] 200 [place] [address] * (ABNORMAL) Comprehensive Metabolic Panel (05/29/2023 5:35 PM SEWING MACHINES SALESPERSON) Potassium, S 3.7 3.6 - 5.2 mmol/L 05/29/2023 6:46 PM SEWING MACHINES SALESPERSON DTL Sodium, S 134(L) 135 - 145 mmol/L 05/29/2023 6:46 PM SEWING MACHINES SALESPERSON DTL Chloride, S 97(L) 98 - 107 mmol/L 05/29/2023 6:46 PM SEWING MACHINES SALESPERSON DTL Bicarbonate, S 20(L) 22 - 29 mmol/L 05/29/2023 6:46 PM SEWING MACHINES SALESPERSON DTL Anion Gap 17(H) 7 - 15 05/29/2023 6:46 PM SEWING MACHINES SALESPERSON DTL BUN (Blood Urea Nitrogen), S 28(H) 6 - 21 mg/dL 05/29/2023 6:46 PM SEWING MACHINES SALESPERSON DTL Creatinine 1.56(H) 0.59 - 1.04 mg/dL 05/29/2023 6:46 PM SEWING MACHINES SALESPERSON DTL Estimated GFR (eGFR) 42(L) >=60 mL/min/BS A 05/29/2023 6:46 PM SEWING MACHINES SALESPERSON DTL Comment: Estimated GFR calculated using the 2020 CKD_EPI creatinine equation. Calcium, Total, S 9.0 8.6 - 10.0 mg/dL 05/29/2023 6:46 PM SEWING MACHINES SALESPERSON DTL Glucose, S 137 70 - 140 mg/dL 05/29/2023 6:46 PM SEWING MACHINES SALESPERSON DTL Protein, Total, S 6.7 6.3 - 7.9 g/dL 05/29/2023 6:46 PM SEWING MACHINES SALESPERSON DTL Albumin, S 3.4(L) 3.5 - 5.0 g/dL 05/29/2023 6:46 PM SEWING MACHINES SALESPERSON DTL Aspartate Aminotransferase (AST), S 21 8 - 43 U/L 05/29/2023 6:46 PM SEWING MACHINES SALESPERSON DTL Alkaline Phosphatase, S 132(H) 35 - 104 U/L 05/29/2023 6:46 PM SEWING MACHINES SALESPERSON DTL Alanine Aminotransferase (ALT), S 9 7 - 45 U/L 05/29/2023 7:14 PM SEWING MACHINES SALESPERSON DTL Bilirubin, Total, S 0.3 0.0 - 1.2 mg/dL 05/29/2023 6:46 PM SEWING MACHINES SALESPERSON DTL Blood (Blood, Venous) 05/29/2023 5:35 PM SEWING MACHINES SALESPERSON 05/29/2023 6:09 PM SEWING MACHINES SALESPERSON Naida Mejia P.A.-C.Rajinder LAB BLOO D ADD-ON [facility] [address] [place] [address], [facility] DTL [facility] [address] [place] [address] * (ABNORMAL) CBC with Differential, Blood (05/29/2023 5:35 PM SEWING MACHINES SALESPERSON) Hemoglobin 7.6(L) 11.6 - 15.0 g/dL 05/29/2023 6:02 PM SEWING MACHINES SALESPERSON DTL Hematocrit 22.9(L) 35.5 - 44.9 % 05/29/2023 6:02 PM SEWING MACHINES SALESPERSON DTL Erythrocytes 2.46(L) 3.92 - 5.13 x10(12)/L 05/29/2023 6:02 PM SEWING MACHINES SALESPERSON DTL MCV 93.1 78.2 - 97.9 fL 05/29/2023 6:02 PM SEWING MACHINES SALESPERSON DTL RBC Distrib Width 15.1 12.2 - 16.1 % 05/29/2023 6:02 PM SEWING MACHINES SALESPERSON DTL Platelet Count 464(H) 157 - 371 x10(9)/L 05/29/2023 6:02 PM SEWING MACHINES SALESPERSON DTL Leukocytes 14.9(H) 3.4 - 9.6 x10(9)/L 05/29/2023 6:02 PM SEWING MACHINES SALESPERSON DTL Neutrophils 12.04(H) 1.56 - 6.45 x10(9)/L 05/29/2023 6:02 PM SEWING MACHINES SALESPERSON DHPM Lymphocytes 1.39 0.95 - 3.07 x10(9)/L 05/29/2023 6:02 PM SEWING MACHINES SALESPERSON DTL Monocytes 1.32(H) 0.26 - 0.81 x10(9)/L 05/29/2023 6:02 PM SEWING MACHINES SALESPERSON DTL Eosinophils 0.11 0.03 - 0.48 x10(9)/L 05/29/2023 6:02 PM SEWING MACHINES SALESPERSON DTL Basophils 0.05 0.01 - 0.08 x10(9)/L 05/29/2023 6:02 PM SEWING MACHINES SALESPERSON DTL Blood (Blood, Venous) 05/29/2023 5:35 PM SEWING MACHINES SALESPERSON 05/29/2023 5:52 PM SEWING MACHINES SALESPERSON Naida Banegas Roberto Altman M.S. 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 06/24/2023 1:13 PM SEWING MACHINES SALESPERSON DTL Additional Information CLINICAL TRIALS Possible clinical trials of benefit for this patient can be found at the following sites: 1) ClinicalTrials.gov: www.clinicaltrials. gov/ct2/search/adva nced 2) [facility]: www.[facility]/resear ch/clinical-trials/ 3) [employer] [facility] [place]: www.cancer.gov/clin icaltrials/search REFERENCE TRANSCRIPT Sequence variant nomenclature is based on the following RefSeq accession number (build GRCh37 (hg19)):BRAF [id number]. 06/24/2023 1:13 PM SEWING MACHINES SALESPERSON DTL Specimen Tissue, Tumor 06/24/2023 1:13 PM SEWING MACHINES SALESPERSON DTL Tissue ID [id number] 06/24/2023 1:13 PM SEWING MACHINES SALESPERSON DTL Method Microscopic examination is performed by [...] and additional information on this test, see [email or web address]. LTG Exam Prep Platform (Test ID BRFKT). 06/24/2023 1:13 PM SEWING MACHINES SALESPERSON DTL Disclaimer This test cannot differentiate between [...] of heterozygosity) and sequencing artifact/misalignme nt [PMID: 58783266, PMID: [id number]]. Rare polymorphisms may be present that could [...] developed and its performance characteristics determined by [facility] in a manner consistent with CLIA requirements. This test has not been cleared or approved by the U.S. Food and Drug Administration. 06/24/2023 1:13 PM SEWING MACHINES SALESPERSON DTL Released By Lexy Lang M.D. 06/24/2023 1:13 PM SEWING MACHINES SALESPERSON DTL Interpretation BRAF c.1799T>A (p.V600E) (Exon 15) BRAF encodes the signaling protein Braf, which is downstream of Eduardo and activates the MAPK pathway. Braf signaling is critically involved in the processes of cell division and differentiation. BRAF activating mutations occur predominantly at a single location (V600E). BRAF activating mutations or amplification have been reported to result in uncontrolled cell growth and tumorigenesis [PMID:[id number], PMID:05649730]. Clinically approved targeted therapy is available for patients with unresectable or metastatic solid tumors with a BRAF V600E mutation [fda.gov/drugs]. 06/24/2023 1:13 PM SEWING MACHINES SALESPERSON DTL Tissue (Bone) 05/13/2023 8:2 7 AM CDT 06/16/2023 1:57 PM SEWING MACHINES SALESPERSON Naida Mejia P.A.-C., M.S. 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
--- OUTSIDE RECORDS SUMMARY | 2023-08-09 19:24 | XMS_ITS | Encounter Summary ---
Author Name Unknown Organization [facility] Address [address] [place] [address] Care Team Providers Care Maintenance Planning Clerk Name Role Phone Unavailable Primary Care Provider Unavailabl e Encounter Details Date Type Department Care Team (Latest Contact Info) Description 05/29/2023 5:21 PM AUDIO PRODUCTION INSTRUCTOR - 05/29/2023 5:49 PM AUDIO PRODUCTION INSTRUCTOR Hospital Encounter Department of Laboratory Medicine and Pathology, [facility], in [place], [place] [address] [place] [address] Naida Mejia P.A.-C., M.S. [address] [place] [address] Melanoma Trunk (HCC); Secondary Malignant Neoplasm Bone [...] Assigned at Female 05/31/2023 8:26 AM AUDIO PRODUCTION INSTRUCTOR Gender Identity Female 05/31/2023 8:26 AM AUDIO PRODUCTION INSTRUCTOR Sexual Orientation Straight 05/31/2023 8: 26 AM AUDIO PRODUCTION INSTRUCTOR documented as of this encounter Medications [...] Contact Info) Description 08/19/2023 6:40 AM AUDIO PRODUCTION INSTRUCTOR Appointment Department of Laboratory Medicine and Pathology, [place], [place] [address] [place] [phone] Pérez Zuniga M.D., Ph.D. [address] [place] [phone] 08/19/2023 7:00 AM AUDIO PRODUCTION INSTRUCTOR Ancillary Procedure Department of Cardiovascular Medicine in [place], [place] [address] [place] [phone] Pérez Zuniga M.D., Ph.D. [address] [place] [phone] 08/19/2023 9:00 AM AUDIO PRODUCTION INSTRUCTOR Appointment Department of Radiology, [facility] in [place], [place] [address] [place] [phone] Pérez Zuniga M.D., Ph.D. [address] [place] [phone] 08/19/2023 3:40 PM AUDIO PRODUCTION INSTRUCTOR Office Visit Department of Oncology in [place], [place] [address] [place] [phone] Zhane Granados, GAIL, C.N.P. [address] [place] [phone] 08/21/2023 10:15 AM AUDIO PRODUCTION INSTRUCTOR Clinical Support Department of Palliative Care in [place], [place] [address] [place] [phone] Serenity Kelsey P.A.-Harsha. 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) THYROPEROXIDASE (TPO) ABS, S Routine 05/29/2023 5:35 PM AUDIO PRODUCTION INSTRUCTOR CBC WITH DIFFERENTIAL, B Routine 05/29/2023 5:35 PM AUDIO PRODUCTION INSTRUCTOR 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) LACTATE DEHYDROGENASE (LD), S Routine 05/29/2023 5:35 PM AUDIO PRODUCTION INSTRUCTOR 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 LAB BLOO D ADD-ON [facility] [address] DTFormerly named [facility] 200 [place] [address] * Thyroperoxidase (TPO) Antibodies (05/29/2023 5:35 PM AUDIO PRODUCTION INSTRUCTOR) Thyroperoxidase Ab, S 15.1 <34.0 IU/mL 05/29/2023 7:06 PM AUDIO PRODUCTION INSTRUCTOR DTL Blood 05/29/2023 5:35 PM AUDIO PRODUCTION INSTRUCTOR 05/29/2023 6:09 PM AUDIO PRODUCTION INSTRUCTOR Naida Mejia P.A.-C., M.S. LAB BLOO D ADD-ON Performing Organization Address City/[facility]/ZIP Co de Phone Number [facility] [address] [place] [address], [facility] [address] [place] [address] * (ABNORMAL) Thyroid Function [place] (05/29/2023 5:35 PM AUDIO PRODUCTION INSTRUCTOR) TSH, Sensitive 4.7(H) 0.3 - 4.2 mIU/L 05/29/2023 6:46 PM AUDIO PRODUCTION INSTRUCTOR DTL Blood (Blood, Venous) 05/29/2023 5:35 PM AUDIO PRODUCTION INSTRUCTOR 05/29/2023 6:09 PM AUDIO PRODUCTION INSTRUCTOR Naida Mejia P.A.-C., M.S. LAB BLOO D ADD-ON [facility] [address] [place] [address], [facility] DTFormerly named [facility] 200 [place] [address] * (ABNORMAL) LD (Lactate Dehydrogenase) (05/29/2023 5:35 PM AUDIO PRODUCTION INSTRUCTOR) Lactate Dehydrogenase (LD), S 439(H) 122 - 222 U/L 05/29/2023 6:46 PM AUDIO PRODUCTION INSTRUCTOR DTL Blood (Blood, Venous) 05/29/2023 5:35 PM AUDIO PRODUCTION INSTRUCTOR 05/29/2023 6:09 PM AUDIO PRODUCTION INSTRUCTOR Naida Mejia P.A.-C. MSantoshSSantosh LAB BLOO D NON ADD-ON [facility] 200 [place] [address], [facility] [address] [address] * (ABNORMAL) Comprehensive Metabolic Panel (05/29/2023 5:35 PM AUDIO PRODUCTION INSTRUCTOR) Pathologist [facility] Potassium, S 3.7 3.6 - 5.2 mmol/L 05/29/2023 6:46 PM AUDIO PRODUCTION INSTRUCTOR DTL Sodium, S 134(L) 135 - 145 mmol/L 05/29/2023 6:46 PM AUDIO PRODUCTION INSTRUCTOR DTL Chloride, S 97(L) 98 - 107 mmol/L 05/29/2023 6:46 PM AUDIO PRODUCTION INSTRUCTOR DTL Bicarbonate, S 20(L) 22 - 29 mmol/L 05/29/2023 6:46 PM AUDIO PRODUCTION INSTRUCTOR DTL Anion Gap 17(H) 7 - 15 05/29/2023 6:46 PM AUDIO PRODUCTION INSTRUCTOR DTL BUN (Blood Urea Nitrogen), S 28(H) 6 - 21 mg/dL 05/29/2023 6:46 PM AUDIO PRODUCTION INSTRUCTOR DTL Creatinine 1.56(H) 0.59 - 1.04 mg/dL 05/29/2023 6:46 PM AUDIO PRODUCTION INSTRUCTOR DTL Estimated GFR (eGFR) 42(L) >=60 mL/min/BS A 05/29/2023 6:46 PM AUDIO PRODUCTION INSTRUCTOR DTL Comment: Estimated GFR calculated using the 2020 CKD_EPI creatinine equation. Calcium, Total, S 9.0 8.6 - 10.0 mg/dL 05/29/2023 6:46 PM AUDIO PRODUCTION INSTRUCTOR DTL Glucose, S 137 70 - 140 mg/dL 05/29/2023 6:46 PM AUDIO PRODUCTION INSTRUCTOR DTL Protein, Total, S 6.7 6.3 - 7.9 g/dL 05/29/2023 6:46 PM AUDIO PRODUCTION INSTRUCTOR DTL Albumin, S 3.4(L) 3.5 - 5.0 g/dL 05/29/2023 6:46 PM AUDIO PRODUCTION INSTRUCTOR DTL Aspartate Aminotransferase (AST), S 21 8 - 43 U/L 05/29/2023 6:46 PM AUDIO PRODUCTION INSTRUCTOR DTL Alkaline Phosphatase, S 132(H) 35 - 104 U/L 05/29/2023 6:46 PM AUDIO PRODUCTION INSTRUCTOR DTL Alanine Aminotransferase (ALT), S 9 7 - 45 U/L 05/29/2023 7:14 PM AUDIO PRODUCTION INSTRUCTOR DTL Bilirubin, Total, S 0.3 0.0 - 1.2 mg/dL 05/29/2023 6:46 PM AUDIO PRODUCTION INSTRUCTOR DTL Blood (Blood, Venous) 05/29/2023 5:35 PM AUDIO PRODUCTION INSTRUCTOR 05/29/2023 6:09 PM AUDIO PRODUCTION INSTRUCTOR Naida Mejia P.A.-C. M.S. LAB BLOO D ADD-ON [address] [address], [facility] [address] [address] * (ABNORMAL) CBC with Differential, Blood (05/29/2023 5:35 PM AUDIO PRODUCTION INSTRUCTOR) Hemoglobin 7.6(L) 11.6 - 15.0 g/dL 05/29/2023 6:02 PM AUDIO PRODUCTION INSTRUCTOR DTL Hematocrit 22.9(L) 35.5 - 44.9 % 05/29/2023 6:02 PM AUDIO PRODUCTION INSTRUCTOR DTL Erythrocytes 2.46(L) 3.92 - 5.13 x10(12)/L 05/29/2023 6:02 PM AUDIO PRODUCTION INSTRUCTOR DTL MCV 93.1 78.2 - 97.9 fL 05/29/2023 6:02 PM AUDIO PRODUCTION INSTRUCTOR DTL RBC Distrib Width 15.1 12.2 - 16.1 % 05/29/2023 6:02 PM AUDIO PRODUCTION INSTRUCTOR DTL Platelet Count 464(H) 157 - 371 x10(9)/L 05/29/2023 6:02 PM AUDIO PRODUCTION INSTRUCTOR DTL Leukocytes 14.9(H) 3.4 - 9.6 x10(9)/L 05/29/2023 6:02 PM AUDIO PRODUCTION INSTRUCTOR DTL Neutrophils 12.04(H) 1.56 - 6.45 x10(9)/L 05/29/2023 6:02 PM AUDIO PRODUCTION INSTRUCTOR DHPM Lymphocytes 1.39 0.95 - 3.07 x10(9)/L 05/29/2023 6:02 PM AUDIO PRODUCTION INSTRUCTOR DTL Monocytes 1.32(H) 0.26 - 0.81 x10(9)/L 05/29/2023 6:02 PM AUDIO PRODUCTION INSTRUCTOR DTL Eosinophils 0.11 0.03 - 0.48 x10(9)/L 05/29/2023 6:02 PM AUDIO PRODUCTION INSTRUCTOR DTL Basophils 0.05 0.01 - 0.08 x10(9)/L 05/29/2023 6:02 PM AUDIO PRODUCTION INSTRUCTOR DTL Blood (Blood, Venous) 05/29/2023 5:35 PM AUDIO PRODUCTION INSTRUCTOR 05/29/2023 5:52 PM AUDIO PRODUCTION INSTRUCTOR Naida Mejia P.A.-C., M.S. 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
--- OUTSIDE RECORDS SUMMARY | 2023-08-09 19:24 | XMS_ITS | Encounter Summary ---
Author Name Unknown Organization [facility] Address [address] [place] [address] Care Team Providers Care Race Car Mechanic Name Role Phone Unavailable Primary Care Provider Unavailabl e Encounter Details Date Type Department Care Team (Late st Contact Info) Description 05/30/2023 1:00 PM WATERPROOF BAG CUTTING MACHINE OPERATOR Lab [facility] [address] [place] [phone] Naida Mejia P.A.-Harsha., M.S. [address] [place] [phone] Melanoma Trunk (HCC); Secondary Malignant Neoplasm Bone [...] Sex Assigned at Female 05/31/2023 8:26 AM WATERPROOF BAG CUTTING MACHINE OPERATOR Gender Identity Female 05/31/2023 8:26 AM WATERPROOF BAG CUTTING MACHINE OPERATOR Sexual Orientation Straight 05/31/2023 8: 26 AM WATERPROOF BAG CUTTING MACHINE OPERATOR documented as of this encounter Plan of Treatment Upcoming Encounters Date Type Department Care Team (Late st Contact Info) Description 08/19/2023 6:40 AM WATERPROOF BAG CUTTING MACHINE OPERATOR Appointment Department of Laboratory Medicine and Pathology, [facility] in [place], [place] [address] [place] [phone] Pérez Zuniga M.D., Ph.D. [address] [place] [phone] 08/19/2023 7:00 AM WATERPROOF BAG CUTTING MACHINE OPERATOR Ancillary Procedure Department of Cardiovascular Medicine in [place], [place] [address] [place] [phone] Pérez Zuniga M.D., Ph.D. [address] [place] [phone] 08/19/2023 9:00 AM WATERPROOF BAG CUTTING MACHINE OPERATOR Appointment Department of Radiology, [facility] in [place], [place] [address] [place] [phone] Pérez Zuniga M.D., Ph.D. [address] [place] [phone] 08/19/2023 3:40 PM WATERPROOF BAG CUTTING MACHINE OPERATOR Office Visit Department of Oncology in [address] [phone] Zhane Granados APRN, C.N.P. [address] [place] [phone] 08/21/2023 10:15 AM WATERPROOF BAG CUTTING MACHINE OPERATOR Clinical Support Department of Palliative Care in [address] [phone] Serenity Kelsey, P.A.-C. 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 I verify that I have examined all relevant slides/materials for the specimen(s) and rendered or confirmed the diagnosis. 06/10/2023 3:51 PM WATERPROOF BAG CUTTING MACHINE OPERATOR DTL Material Received A. [id number]: Left femur ? 22 stained slides, 20 unstained slides 06/10/2023 3:51 PM WATERPROOF BAG CUTTING MACHINE OPERATOR DTL Addendum Genetic testing for BRAF/KIT Mutation Analysis, Tumor (BRFKT) ??will be performed and resulted in the patient's medical record. Signed by Cl Edwards M.D. 06/14/2023 10:19 AM 06/14/2023 10:19 AM WATERPROOF BAG CUTTING MACHINE OPERATOR DTL Comment:REVISED RESULTS Interpretation FINAL DIAGNOSIS Left femur mass, biopsy ([id number]; 05/13/2023): Metastatic melanoma, diffusely positive for BRAF [...] not hesitate to reach me by calling [facility] [employer] at [phone]. 06/14/2023 10:19 AM WATERPROOF BAG CUTTING MACHINE OPERATOR DTL Varies 05/13/2023 1:26 AM CDT 06/05/2023 7:18 PM WATERPROOF BAG CUTTING MACHINE OPERATOR Naida Mejia P.A.-C. M.S. 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
--- OUTSIDE RECORDS SUMMARY | 2023-08-09 19:25 | XMS_ITS | Encounter Summary ---
Author Name Unknown Organization [facility] Address [address] [place] [address] Care Team Providers Care Core Measures Abstractor Name Role Phone Unavailable Primary Care Provider Unavailabl e Encounter Details Date Type Department Care Team (Late st Contact Info) Description 05/06/2023 Clinical Communication Department of Orthopedic Surgery in [place], [place] [address] [place] [phone] Prescheduling, Provider Social History Tobacco Use Types Packs/Day Years Used Date Smoking Tobacco: Never Assessed Nutrition Answer Date Recorded Nutrition: EVOO Fat Source Unknown 05/06 Nutrition: Servings of Fruits/Vegetables per Day Not on file 05/06/2023 Dental Answer Date Recorded Dental: Regular Dentist Unknown 05/06/20 Sex and Gender Information Value Date Recorded Sex Assigned at Female 05/31/2023 8:26 AM AUTO CLUTCH SPECIALIST Gender Identity Female 05/31/2023 8:26 AM AUTO CLUTCH SPECIALIST Sexual Orientation Straight 05/31/2023 8: 26 AM AUTO CLUTCH SPECIALIST documented as of this encounter Plan of Treatment Upcoming Encounters Date Type Department Care Team (Late st Contact Info) Description 08/19/2023 6:40 AM AUTO CLUTCH SPECIALIST Appointment Department of Laboratory Medicine and Pathology, [facility], in [place], [place] [address] [place] [phone] Pérez Zuniga M.D., Ph.D. [address] [place] [phone] 08/19/2023 7:00 AM AUTO CLUTCH SPECIALIST Ancillary Procedure Department of Cardiovascular Medicine in [place], [place] [address] [place] [phone] Pérez Zuniga M.D., Ph.D. [address] [place] [phone] 08/19/2023 9:00 AM AUTO CLUTCH SPECIALIST Appointment Department of Radiology, [facility] in [place], [place] [address] [place] [phone] Pérez Zuniga M.D., Ph.D. [address] [place] [phone] 08/19/2023 3:40 PM AUTO CLUTCH SPECIALIST Office Visit Department of Oncology in [place], [place] [address] [place] [phone] Zhane Granados, RECYCLE COORDINATOR, C.N.P. [address] [place] [phone] 08/21/2023 10:15 AM AUTO CLUTCH SPECIALIST Clinical Support Department of Palliative Care in [place], [place] [address] [place] [phone] Serenity Kelsey, P.A.-C. [address] [place] [phone] Meka Rinaldi D.N.P., R.N., [facility] documented as of this encounter Visit Diagnoses Not on filedocumented in this encounter
== END 2023-08-08 23:03 | disposition home or self-care (01) ==
LOC: AMB 08-09 19:16
PROVIDERS: PCP Family Medicine; Visit Provider Emergency Medicine
DX: R50.9 Fever, unspecified (principal); R55 Syncope and collapse; I95.9 Hypotension, unspecified
CPT/HCPCS: A0425; A0434

== ENCOUNTER 2024-02-21 14:27 | Emergency (ER) | payer OTHER, SELFPAY ==
[2024-02-21] VITALS (15 sets, daily range): BP systolic 121–140; BP diastolic 68–89; PULSE 98–118; RESP 20; TEMP 37.2–38.7; O2SAT 97–100
--- NOTE | 2024-02-21 14:55 | CRLHL7_ITS ---
For Patients: As a result of the Century Cures Act, medical imaging exams and procedure reports are released immediately into your electronic medical record. You may view this report before your referring provider. If you have questions, please contact your health care provider. Indication: Shortness of breath Technique: PA and lateral views of the chest. Comparison: 08/08/2023 Findings: Low lung volumes. Mildly enlarged cardiomediastinal silhouette. No focal consolidation, pleural effusions, or visualized pneumothorax. Mild degenerative changes of the visualized spine. Impression: No acute cardiopulmonary disease. Dictated by Tyrell Teresa MD @ 02/21/2024 3:35:02 PM (Electronically Signed)
--- OUTSIDE RECORDS SUMMARY | 2024-02-21 15:03 | XMS_ITS | Clinical Summary ---
Author Organization [facility] Address [address] [place] [address] Care Team Providers Care Data Processing Control Clerk Name Role Phone Ondina Chávez MD Primary Care Provider [phone] Max Lee MD Unavailable [phone] Igor Myers MD Unavailable Unavaila Donna Hunt RN Unavailable Unavailable Igor Myers MD Unavailable Unavaila Shiva Huff MD Unavailable [phone] Allergies No known active allergies Medications Medication Sig Dispensed Refills Start Date End Date Status lisinopril-hydrochlor othiazide (ZESTORETIC) 10-12.5 MG tablet Take 1 tablet by mouth every morning 01/02/2023 Active traZODone (DESYREL) 50 MG tablet Take 50 mg by mouth at bedtime 05/08/2023 Active ondansetron (ZOFRAN ODT) [address] 4 mg under the tongue every 8 hours as needed 05/08/2023 Active omeprazole 20 MG tablet Take 20 mg by mouth 05/08/2023 Active oxyCODONE (ROXICODONE) 5 MG tablet Take 5 mg by mouth every 6 hours as needed 05/08/2023 Active ibuprofen (ADVIL/MOTRIN) 200 MG tablet Take 200 mg by mouth every 4 hours as needed for pain Active acetaminophen (TYLENOL) 500 MG tablet Take 500-1,000 mg by mouth every 6 hours as needed for mild pain Active diazepam (VALIUM) 5 MG tabletIndications:His tory of claustrophobia Do no take until instructed by staff at appointment. 1 tablet 05/14/2023 Active oxyCODONE (ROXICODONE) 5 MG tabletIndications:Bon e cyst Take 1-2 tablets (5-10 mg) by mouth every 4 hours as needed for moderate to severe pain 90 tablet 05/31/2023 Active Active Problems Problem Noted Date [...] Comments Blood Pressure 106/71 05/24/2023 9:36 AM CUSTOMER COUNTER ASSOCIATE Pulse 70 05/24/2023 9:36 AM CUSTOMER COUNTER ASSOCIATE Temperature 36.7 ??C (98 ??F) 05/24/2023 9:36 AM CUSTOMER COUNTER ASSOCIATE Respiratory Rate 16 05/24/2023 9:36 AM CUSTOMER COUNTER ASSOCIATE Oxygen Saturation 100% 05/24/2023 9:36 AM CUSTOMER COUNTER ASSOCIATE Inhaled Oxygen Concentration - - Weight 82.3 kg (181 lb 8 oz) 05/24/2023 9:36 AM CUSTOMER COUNTER ASSOCIATE Height 160.3 cm (5' 3.11) 05/13/2023 8:55 AM CD T Body Mass Index 32.04 05/13/2023 8:55 AM CDT Plan of Treatment Health Maintenance Due Date Last Done Comments ADVANCE CARE PLANNING 1977 ANNUAL REVIEW OF HM ORDERS 1977 CT COLONOGRAPHY 1977 FIT 1977 FLEX SIG 1977 sDNA (Cologuard) 1977 Pneumococcal Vaccine: Pediatrics (0 to 5 Years) and At-Risk Patients (6 to 64 Years) (1 of 2 - PCV) 1983 COLONOSCOPY 1987 COLORECTAL CANCER SCREENING 1987 HIV SCREENING 1992 HEPATITIS C SCREENING 1995 HEPATITIS B IMMUNIZATION (1 of 3 - 19+ 3-dose series) 1996 PAP 1998 LIPID 2017 COVID-19 Vaccine ( season) 2023 03/28/2022, 04/19/2021, 09/24/2020, Additional history exists YEARLY PREVENTIVE VISIT 03/28/2023 03/28/2022, 08/12 PHQ-2 (once per calendar year) 2023 05/09/2023, 05/09/2023 INFLUENZA VACCINE (#1) 2024 2, 03/23/2021, 04/11/2020, Additional history exists MAMMO SCREENING 10/22/2024 10/22/2022 GLUCOSE 05/09/2026 05/09/2023 DTAP/TDAP/TD IMMUNIZATION (4 - Td or Tdap) [...] not send urgent or symptomatic messages through [employer]. I will contact scheduling to arrange or make changes in my appointments. Patient will contact clinic and RNCC as needed ongoing. Procedures Procedure Name Priority Date/Time Associated Diagnosis Comments COMPREHENSIVE METABOLIC PANEL Routine 05/09/2023 4:21 PM CDT Bone cyst MA SCREENING BILATERAL W/ SELENE Routine 10/22/2022 4:44 PM CDT from Last 3 Months or Most Recently Relevant to Health Maintenance Results * (ABNORMAL) Comprehensive metabolic panel (05/09/2023 4:21 PM CDT) Sodium 133(L) 135 - 145 mmol/L 05/09/2023 4:57 PM CDT [facility] Comment:Reference intervals for this test were updated on 04/09/2023 to more accurately reflect our healthy population. There may be differences in the flagging of prior results with similar values performed with this method. Interpretation of those prior results can be made in the context of the updated reference intervals. Potassium 3.3(L) 3.4 - 5.3 mmol/L 05/09/2023 4:57 PM CDT [facility] Carbon Dioxide (CO2) 25 22 - 29 mmol/L 05/09/2023 4:57 PM CDT [facility] Anion Gap 18(H) 7 - 15 mmol/L 05/09/2023 4:57 PM CDT [facility] Urea Nitrogen 14.1 6.0 - 20.0 mg/dL 05/09/2023 4:57 PM CDT [facility] Creatinine 0.73 0.51 - 0.95 mg/dL 05/09/2023 4:57 PM CDT [facility] GFR Estimate >90 >60 mL/min/1. 73m2 05/09/2023 4:57 PM CDT [facility] Calcium 10.1(H) 8.6 - 10.0 mg/dL 05/09/2023 4:57 PM CDT [facility] Chloride 90(L) 98 - 107 mmol/L 05/09/2023 4:57 PM CDT [facility] Glucose 95 70 - 99 mg/dL 05/09/2023 4:57 PM CDT [facility] Alkaline Phosphatase 110(H) 35 - 104 U/L 05/09/2023 4:57 PM CDT [facility] AST 25 0 - 45 U/L 05/09/2023 4:57 PM CDT [facility] Comment:Reference intervals for this test were updated on 12/24/2022 to more accurately reflect our healthy population. There may be differences in the flagging of prior results with similar values performed with this method. Interpretation of those prior results can be made in the context of the updated reference intervals. ALT 16 0 - 50 U/L 05/09/2023 4:57 PM CDT [facility] Comment:Reference intervals for [...] - 8.3 g/dL 05/09/2023 4:57 PM CDT [facility] Albumin 4.1 3.5 - 5.2 g/dL 05/09/2023 4:57 PM CDT [facility] Bilirubin Total 0.4 <=1.2 mg/dL 05/09/2023 4:57 PM CDT [facility] Blood STRUCTURE OF LEFT UPPER LIMB / Unknown Venipuncture / Unknown 05/09/2023 4:21 PM CDT 05/09/2023 4:21 PM CDT Rachel Sanz PA-C LAB - BL OOD ORDERABLES [facility] - [address] 1st [place] [address] from Last 3 Months or Most Recently Relevant to Health Maintenance Care Teams Data Processing Control Clerk Relationship Specialty Start Date End Date Ondina Chávez MD [facility] [address] [place] [address] PCP - General Family Medicine 05/07/23 Max Lee MD [address] [place] [address] Hematology & Oncology 05/17/23 Igor Myers MD Hematology & Oncology 05/20/23 Donna Ang, BEATRIZ Specialty Feed Mill Supervisor Hematology & Oncology 05/31/23 Igor Myers MD Assigned Cancer Care Provider 06/01/23 Shiva Kruger MD [address] [place] [address] Assigned Musculoskeletal Provider 05/18/23
--- OUTSIDE RECORDS SUMMARY | 2024-02-21 15:03 | XMS_ITS | Referral Summary ---
Author Organization [facility] Address [address] [place] [address] Care Team Providers Care Dispatcher Refinery Name Role Phone Ondina Chávez MD Primary Care Provider [phone] Max Lee MD Unavailable [phone] Igor Myers MD Unavailable Unavaila Donna Hunt RN Unavailable Unavailable Igor Myers MD Unavailable Unavaila Shiva Huff MD Unavailable Allergies No known active allergies Medications Medication [...] Comments Blood Pressure 106/71 05/24/2023 9:36 AM NEW VEHICLE SALES CONSULTANT Pulse 70 05/24/2023 9:36 AM NEW VEHICLE SALES CONSULTANT Temperature 36.7 ??C (98 ??F) 05/24/2023 9:36 AM NEW VEHICLE SALES CONSULTANT Respiratory Rate 16 05/24/2023 9:36 AM NEW VEHICLE SALES CONSULTANT Oxygen Saturation 100% 05/24/2023 9:36 AM NEW VEHICLE SALES CONSULTANT Inhaled Oxygen Concentration - - Weight 82.3 kg (181 lb 8 oz) 05/24/2023 9:36 AM NEW VEHICLE SALES CONSULTANT Height 160.3 cm (5' 3.11) 05/13/2023 8:55 [...] not send urgent or symptomatic messages through [employer]. I will contact scheduling to arrange [...] - 145 mmol/L 05/09/2023 4:57 PM CDT [facility] Comment:Reference intervals for this test were updated on 04/09/2023 to more accurately reflect our healthy population. There may be differences in the flagging of prior results with similar values performed with this method. Interpretation of those prior results can be made in the context of the updated reference intervals. Potassium 3.3(L) 3.4 - 5.3 mmol/L 05/09/2023 4:57 PM CDT [facility] Carbon Dioxide (CO2) 25 22 - 29 mmol/L 05/09/2023 4:57 PM CDT [facility] Anion Gap 18(H) 7 - 15 mmol/L 05/09/2023 4:57 PM CDT [facility] Urea Nitrogen 14.1 6.0 - 20.0 mg/dL 05/09/2023 4:57 PM CDT [facility] Creatinine 0.73 0.51 - 0.95 mg/dL 05/09/2023 4:57 PM CDT [facility] GFR Estimate >90 >60 mL/min/1. 73m2 05/09/2023 4:57 PM CDT [facility] Calcium 10.1(H) 8.6 - 10.0 mg/dL 05/09/2023 4:57 PM CDT [facility] Chloride 90(L) 98 - 107 mmol/L 05/09/2023 4:57 PM CDT [facility] Glucose 95 70 - 99 mg/dL 05/09/2023 4:57 PM CDT [facility] Alkaline Phosphatase 110(H) 35 - 104 U/L 05/09/2023 4:57 PM CDT [facility] AST 25 0 - 45 U/L 05/09/2023 4:57 PM CDT [facility] Comment:Reference intervals for this test were updated on 12/24/2022 to more accurately reflect our healthy population. There may be differences in the flagging of prior results with similar values performed with this method. Interpretation of those prior results can be made in the context of the updated reference intervals. ALT 16 0 - 50 U/L 05/09/2023 4:57 PM CDT [facility] Comment:Reference intervals for [...] - 8.3 g/dL 05/09/2023 4:57 PM CDT [facility] Albumin 4.1 3.5 - 5.2 g/dL 05/09/2023 4:57 PM CDT [facility] Bilirubin Total 0.4 <=1.2 mg/dL 05/09/2023 4:57 PM CDT [facility] Blood STRUCTURE OF LEFT UPPER LIMB / Unknown Venipuncture / Unknown 05/09/2023 4:21 PM CDT 05/09/2023 4:21 PM CDT Rachel Sanz PA-C LAB - BL OOD ORDERABLES [facility] - [address] 1st [place] [address] from Last 3 Months or Most Recently Relevant to Health Maintenance Care Teams Dispatcher Refinery Relationship Specialty Start Date End Date Ondina Chávez MD [facility] [address] [place] [address] PCP - General Family Medicine 05/07/23 Max Lee MD [address] [place] [address] Hematology & Oncology 05/17/23 Igor Myers MD Hematology & Oncology 05/20/23 Donna Ang, RN Specialty Associate Chief Nurse Hematology & Oncology 05/31/23 Igor Myers MD Assigned Cancer Care Provider 06/01/23 Shiva Kruger MD [address] [place], [place] [id number] [place] [address] Assigned Musculoskeletal Provider 05/18/23
--- OUTSIDE RECORDS SUMMARY | 2024-02-21 15:03 | XMS_ITS ---
Author Organization [facility] Address [address] [place] [address] Care Team Providers Care Crime Specialist Name Role Phone Ondina Chávez MD Primary Care Provider [phone] Max Lee MD Unavailable [phone] Igor Myers MD Unavailable Unavaila Donna Hunt RN Unavailable Unavailable Igor Myers MD Unavailable Unavaila Shiva Huff MD Unavailable [phone] Active Problems Problem Noted Date Diagnosed Date [...] treatments are documented for this patient in [facility]. Treatments may have been administered in another system.
--- OUTSIDE RECORDS SUMMARY | 2024-02-21 15:04 | XMS_ITS | Encounter Summary ---
Author Organization [facility] Address [address] [place] [address] Care Team Providers Care Framing Machine Tender Name Role Phone Ondina Chávez MD Primary Care Provider Max Lee MD Unavailable [phone] Zuleika Rogers MD Unavailable [phone] Igor Myers MD Unavailable Unavaila Donan Hunt RN Unavailable Unavailable Igor Myers MD Unavailable Unavaila Shiva Huff MD Unavailable [phone] Encounter Details Date Type Department Care Team (Late st Contact Info) Description [facility] [address] [place] [phone] Shiva Kruger MD [address] [place], [place] [id number] History of claustrophobia (Primary Dx) Social History [...] Primary documented in this encounter Care Teams Framing Machine Tender Relationship Specialty Start Date End Date Ondina Chávez MD [facility] [address] [place] [address] PCP - General Family Medicine 05/07/23 Max Lee MD [address] [place] [address] Hematology & Oncology 05/17/23 Zuleika Rogers MD [address] [place] [address] Radiation Oncology 05/17/23 05/20/23 Igor Myers MD Hematology & Oncology 05/20/23 Donna Ang, BEATRIZ Specialty Road Test Examiner Hematology & Oncology 05/31/23 Igor Myers MD Assigned Cancer Care Provider 06/01/23 Shiva Kruger MD [address] [place] [address] Assigned Musculoskeletal Provider 05/18/23 documented as of this encounter
--- OUTSIDE RECORDS SUMMARY | 2024-02-21 15:04 | XMS_ITS | Encounter Summary ---
Author Organization [facility] [facility] Address [address] [place] [address] Care Team Providers Care Quill Skinner Name Role Phone Ondina Chávez MD Primary Care Provider [phone] Max Lee MD Unavailable [phone] Zuleika Rogers MD Unavailable [phone] Igor Myers MD Unavailable Unavaila Donna Hunt RN Unavailable Unavailable Igor Myers MD Unavailable Unavaila Shiva Huff MD Unavailable [phone] Encounter Details Date Type Department Care Team (Late st Contact Info) Description 05/20/2023 [facility] Medical Advice [facility] [address] [place] [address] Ana Black Social History Tobacco [...] on filedocumented in this encounter Care Teams Quill Skinner Relationship Specialty Start Date End Date Ondina Chávez MD [facility] [address] [place] [address] PCP - General Family Medicine 05/07/23 Max Lee MD [address] [place] [address] Hematology & Oncology 05/17/23 Zuleika Rogers MD [address] [place] [address] Radiation Oncology 05/17/23 05/20/23 Igor Myers MD Hematology & Oncology 05/20/23 Donna Ang, RN Specialty Credit Risk Analyst Hematology & Oncology 05/31/23 Igor Myers MD Assigned Cancer Care Provider 06/01/23 Shiva Kruger MD [address] [place] [address] Assigned Musculoskeletal Provider 05/18/23 documented as of this encounter
--- OUTSIDE RECORDS SUMMARY | 2024-02-21 15:04 | XMS_ITS | Encounter Summary ---
Author Organization [facility] Address [address] [place] [address] Care Team Providers Care Mfg Assoc Name Role Phone Ondina Chávez MD Primary Care Provider [phone] Max Lee MD Unavailable [phone] Igor Myers MD Unavailable UnavailDonna Forde RN Unavailable Unavailable Igor Myers MD Unavailable Unavaila Shiva Huff MD Unavailable [phone] Encounter Details Date Type Department Care Team (Late st Contact Info) Description 05/28/2023 [facility] Medical [facility] [address] [place] [address] Igor Myers MD Social History Tobacco [...] not send urgent or symptomatic messages through [employer]. I will contact scheduling to arrange or make changes in my appointments. Patient will contact clinic and [facility] as needed ongoing. documented as of this encounter Visit Diagnoses Not on filedocumented in this encounter Care Teams Mfg Assoc Relationship Specialty Start Date End Date Ondina Chávez MD [facility] [address] [place] [address] PCP - General Family Medicine 05/07/23 Max Lee MD [address] [place] [address] Hematology & Oncology 05/17/23 Igor Myers MD Hematology & Oncology 05/20/23 Donna Ang, BEATRIZ Specialty Financial Analyst Accountant Hematology & Oncology 05/31/23 Igor Myers MD Assigned Cancer Care Provider 06/01/23 Shiva Kruger MD [address] [place] [address] Assigned Musculoskeletal Provider 05/18/23 documented as of this encounter
--- OUTSIDE RECORDS SUMMARY | 2024-02-21 15:04 | XMS_ITS | Clinical Summary ---
Author Organization [facility] Address [address] [place] [address] Care Team Providers Care Police Commanding Officer Name Role Phone Elsewhere, Pcp Primary Care Provider Unavailabl e Source Comments Patient records contain information from all sites at [facility]. For routine questions regarding patient records, call [phone] during business hours, M-F 8:00 AM - 5:00 PM Central Time. Record requests for emergency care only can be directed to [phone] at any time.[facility] Allergies No known active allergies Medications Medication Sig Dispensed Refills Start Date End Date Status hydrOXYzine (ATARAX) 25 mg tablet Take 25-50 mg by mouth at bedtime as needed. 3 Active omeprazole (PriLOSEC OTC) [address] tablet Take 20 mg by mouth every morning before breakfast. 3 Active polyethylene glycol (MIRALAX) 17 gram powder packet Take 17 g by mouth as needed for constipation. Dissolve each 17 g dose in 240 mLs (8 ounces) of beverage. Active sennosides (senna) 8.6 mg tablet Take 8.6 mg by mouth daily. Active naloxone (NARCAN) 4 mg/actuation nasal spray Administer 1 spray (4 mg total) into one nostril as needed for reversal. Use 1 spray in 1 nostril. Repeat with second device in other nostril after 2-3 minutes if no or minimal response. 2 each 3 Active cetirizine (ZyrTEC) 10 mg tablet Take 10 mg by mouth 2 (two) times a day. Taking for rash Active levothyroxine 100 mcg tablet Take 1 tablet (100 mcg total) by mouth daily before morning meal. 30 tablet 1 4 Active encorafenib (Braftovi) 75 mg capsule Take 6 capsules (450 mg total) by mouth daily. 180 capsule 4 Active binimetinib (Mektovi) 15 mg tablet Take 3 tablets (45 mg total) by mouth 2 (two) times a day. 180 tablet 4 Active prochlorperazin e (Compazine) 10 mg tablet Take 1 tablet (10 mg total) by mouth daily. 30 tablet 4 03/05/20 24 Active colchicine (Colcrys) 0.6 mg tablet Take 2 tablets (1.2 mg total) by mouth daily. 60 tablet 3 4 06/03/20 24 Active dexAMETHasone (Decadron) 1 mg tablet Take 2 tablets (2 mg total) by mouth every 12 (twelve) hours. 60 tablet 3 4 06/03/20 24 Active dexAMETHasone (DECADRON) 1 mg tablet Take 2 tablets (2 mg total) by mouth every 12 (twelve) hours. 60 tablet 3 4 02/04/20 24 Discontinued(Reo rder) ondansetron (ZOFRAN) 8 mg tablet TAKE ONE TABLET BY MOUTH EVERY EIGHT HOURS NEEDED NAUSEA AND VOMITING 30 tablet 4 02/04/20 24 Discontinued(The rapy completed) triamcinolone (KENALOG) 0.1 % cream Apply topically to affected area twice daily for 1 week. Then once daily as needed. 454 g 1 4 02/04/20 24 Discontinued encorafenib (Braftovi) 75 mg capsule Take 6 capsules (450 mg total) by mouth daily. 180 capsule 4 01/23/20 24 Discontinued(Reo rder) binimetinib (Mektovi) 15 mg tablet Take 3 tablets (45 mg total) by mouth 2 (two) times a day. 180 tablet 4 01/23/20 24 Discontinued(Reo rder) prochlorperazin e (Compazine) 10 mg tablet Take 1 tablet (10 mg total) by mouth every 6 (six) hours as needed for nausea. 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 Secondary Malignant Neoplasm Bone (HCC) 02/21/2024 12:45 PM CDT Hospital Encounter Department of Radiation Oncology in [address] [address] Tara López M.D. 02/20/2024 Clinical Communication Department of Radiation Oncology in [address] [address] Tara López M.D. 02/20/2024 Orders Only Department of Oncology in [address] [phone] Zhane Granados, GAIL, C.N.P. Melanoma Trunk (HCC) (Primary Dx); Secondary Malignant Neoplasm Bone (HCC) 02/18/2024 Clinical Communication Department of Oncology in [place], [place] [address] [place] [phone] Mona Perez, R.N. 02/18/2024 Refill Department of Oncology in [place], [place] [address] [place] [phone] Pérez Zuniga M.D., Ph.D. Med Refill (Mektovi, braftovi ) 02/14/2024 8:35 AM CDT - 02/14/2024 11:59 PM CDT Hospital Encounter Department of Radiology in [place], [place] [address] [place] [address] Tara López M.D. Melanoma Trunk (HCC); Secondary Malignant Neoplasm Bone (HCC) Discharge Disposition: Home or Self Care 02/12/2024 2:59 PM CDT - 02/12/2024 4:18 PM CDT Hospital Encounter Department of Radiation Oncology in [place], [place] [address] [place] [phone] Tara López M.D. Secondary Malignant Neoplasm Bone (HCC) 02/12/2024 2:30 PM CDT - 02/12/2024 2:58 PM CDT Hospital Encounter Department of Radiation Oncology in [address] [address] Tara López M.D. Secondary Malignant Neoplasm Bone (HCC) (Primary Dx); Melanoma Trunk (HCC) 02/12/2024 Orders Only Department of Radiation Oncology in [address] [address] Tara López M.D. Secondary Malignant Neoplasm Bone (HCC) (Primary Dx) 02/12/2024 Orders Only Department of Oncology in [place], [place] [address] [place] [address] Zhane Granados APRN, C.N.PSantosh Melanoma Trunk (HCC) (Primary Dx) 02/11/2024 3:40 PM CDT Office Visit Department of Oncology in [place], [place] [address] [place] [address] Zhane Granados APRN, C.N.P. Melanoma Trunk (HCC) (Primary Dx); Secondary Malignant Neoplasm Bone (HCC); Secondary Malignant Neoplasm Brain (HCC) 02/11/2024 9:46 AM CDT - 02/11/2024 11:59 PM CDT Hospital Encounter Department of Radiology, [facility], in [place], [place] [address] [place] [phone] Zhane Granados APRN, C.NSantoshPSantosh Melanoma Trunk (HCC); Secondary Malignant Neoplasm Brain (HCC); Secondary Malignant Neoplasm Bone (HCC) Discharge Disposition: Home or Self Care 02/04/2024 2:15 PM CDT Infusion Department of Oncology in [address] [address] Zhane Granados APRN, C.N.PSantosh Melanoma Trunk (HCC) (Primary Dx); Secondary Malignant Neoplasm Bone (HCC); Secondary Malignant Neoplasm Brain (HCC) 02/04/2024 1:00 PM CDT Office Visit Department of Oncology in [address] [address] Pérez Zuniga M.D., Ph.D. Melanoma Trunk (HCC); Secondary Malignant Neoplasm Bone (HCC); Secondary Malignant Neoplasm Brain (HCC) 02/04/2024 10:15 AM CDT Clinical Support Department of Palliative Care in [address] [address] Marija Olivas APRN, C.NSimi., M.S.N. Myriam Mayers, R.Makenzie., [facility] 01/30/2024 Clinical Communication Department of Oncology in [address] [address] Anahy Amezcua R.N., O.C.N. Labs Only 01/29/2024 3:00 PM CDT Telemedicine Department of Palliative Care in [address] [address] Valentine Kelsey M.D., M.S. Melanoma Trunk (HCC) (Primary Dx); Palliative Care; Secondary Malignant Neoplasm Brain (HCC) 01/28/2024 12:00 PM CDT Clinical Communication Virtual Review in [address] [address] Pre-visit Intake 01/23/2024 Refill Department of Oncology in [address] [address] Zhane Granados APRN, C.N.P. Med Refill 01/15/2024 2:30 PM CDT Infusion Department of Oncology in [address] [address] Pérez Zuniga M.D., Ph.D. Melanoma Trunk (HCC) (Primary Dx); Secondary Malignant Neoplasm Brain (HCC); Secondary Malignant Neoplasm Bone (HCC) 01/15/2024 10:45 AM CDT Clinical Support Department of Palliative Care in [place], [place] [address] [place] [phone] Radha Sheldon M.D. Claire Woodard R.N., [facility] Pain Cancer Associated (Primary Dx); Palliative Care; Insomnia 01/15/2024 8:20 AM CDT - 01/15/2024 11:59 PM CDT Hospital Encounter Department of Cardiovascular Diseases in [place] [phone] Zhane Granados APRN, C.N.P. Melanoma Trunk (HCC); Other Assessor Current Drug Therapy Discharge Disposition: Home or Self Care 01/14/2024 2:20 PM CDT Office Visit Department of Oncology in [address] [address] Zhane Granados APRN, C.N.P. Secondary Malignant Neoplasm Bone (HCC) (Primary Dx); Melanoma Trunk (HCC); Secondary Malignant Neoplasm Brain (HCC) 01/14/2024 6:05 AM CDT - 01/14/2024 11:59 PM CDT Hospital Encounter Department of Radiology, [facility] in [place], [place] [address] [place] [phone] Zhane Granados APRN, C.N.P. Melanoma Trunk (HCC); Secondary Malignant Neoplasm Brain (HCC) Discharge Disposition: Home or Self Care 01/14/2024 Clinical Communication Department of Oncology in [address] [address] Zhaen Granados APRN, C.N.P. 01/13/2024 12:45 PM CDT Clinical Communication Virtual Review in [place], [place] [address] [place] [address] Pre-visit Intake 01/08/2024 Clinical Communication Department of Oncology in [address] [address] Anahy Amezcua R.N., O.C.N. Labs Only 01/02/2024 2:40 PM CDT Clinical Communication Department of Oncology in [address] [address] Zhane Granados APRN, Harsha.N.P. Mona Perez, R.N. 01/02/2024 Orders Only Pharmacy Prior Auth RO [phone] Zhane Bose 01/01/2024 Clinical Communication Department of Oncology in [address] [address] Anahy Amezcua R.N., O.C.N. 12/31/23 Labs 12/28/2023 Refill Department of Oncology in [address] [address] Pérez Zuniga M.D., Ph.D. Med Refill (colchicine) 12/26/2023 12:15 PM CDT Infusion Department of Oncology in [address] [address] Pérez Zuniga M.D., Ph.D. Melanoma Trunk (HCC) (Primary Dx); Secondary Malignant Neoplasm Brain (HCC); Secondary Malignant Neoplasm Bone (HCC) 12/26/2023 11:30 AM CDT Office Visit Department of Palliative Care in [address] [address] Valentine Kelsey M.D., M.S. Radha Sheldon M.D. Melanoma Trunk (HCC) (Primary Dx); Secondary Malignant Neoplasm Brain (HCC); Secondary Malignant Neoplasm Bone (HCC); Nausea; Palliative Care 12/26/2023 10:15 AM CDT Clinical Support Department of Palliative Care in [address] [address] Bereket Johnson APRN, C.N.P., D.N.P. Yvette Clemens R.N., [facility] Palliative Care (Primary Dx) 12/26/2023 9:20 AM CDT Office Visit Department of Oncology in [address] [address] Zhane Granados APRN, C.N.P. Melanoma Trunk (HCC); Secondary Malignant Neoplasm Brain (HCC); Secondary Malignant Neoplasm Bone (HCC) 12/26/2023 Orders Only Department of Palliative Care in [address] [address] Radha Sheldon M.D. 12/23/2023 12:45 PM CDT Clinical Communication Virtual Review in [address] [address] Pre-visit Intake 12/23/2023 Refill Department of Palliative Care in [address] [address] Valentine Kelsey M.D., M.S. Med Refill 12/19/2023 Clinical Communication Department of Oncology in [address] [address] Anahy Amezcua R.N., O.C.N. Labs Only 12/17/2023 Clinical Communication Department of Oncology in [address] [address] Anahy Amezcua R.N., O.C.N. Rx refill - Colchicine; Rx refill - Dexamethasone 12/12/2023 9:58 AM CDT - 12/12/2023 11:59 PM CDT Hospital Encounter Department of Radiation Oncology in [place], [place] [address] [place] [address] Tara López M.D. Discharge Disposition: Home or Self Care 12/11/2023 12:54 PM CDT - 12/11/2023 11:59 PM CDT Hospital Encounter Department of Radiation Oncology in [address] [address] Tara López M.D. Discharge Disposition: Home or Self Care 12/11/2023 Documentation Department of Radiation Oncology in [address] [address] Tara López M.D. 12/10/2023 10:16 AM CDT - 12/10/2023 2:58 PM CDT Hospital Encounter Department of Radiation Oncology in [address] [address] Tara López M.D. Melanoma Trunk (HCC); Secondary Malignant Neoplasm Bone (HCC) 12/10/2023 10:16 AM CDT - 12/10/2023 11:59 PM CDT Hospital Encounter Department of Radiation Oncology in [address] [address] Tara López M.D. Discharge Disposition: Home or Self Care 12/06/2023 12:40 PM CDT - 12/06/2023 11:59 PM CDT Hospital Encounter Department of Radiation Oncology in [address] [address] Tara López M.D. Discharge Disposition: Home or Self Care 12/06/2023 Clinical Communication Department of Oncology in [place], [place] [address] [place] [address] Pérez Zuniga M.D., Ph.D. 12/05/2023 1:00 PM CDT - 12/05/2023 3:27 PM CDT Hospital Encounter Department of Radiation Oncology in [address] [address] Tara López M.D. Melanoma Trunk (HCC); Secondary Malignant Neoplasm Bone (HCC) 12/05/2023 1:00 PM CDT - 12/05/2023 11:59 PM CDT Hospital Encounter Department of Radiation Oncology in [address] [address] Tara López M.D. Discharge Disposition: Home or Self Care 12/05/2023 Clinical Communication Department of Oncology in [address] [address] Anahy Amezcua R.N., O.C.N. 12/04/2023 12:56 PM CDT - 12/04/2023 11:59 PM CDT Hospital Encounter Department of Radiation Oncology in [address] [address] Tara López M.D. Discharge Disposition: Home or Self Care 12/03/2023 Clinical Communication Department of Palliative Care in [address] [address] Valentine Kelsey M.D., M.S. 11/29/2023 2:40 PM CDT Office Visit Department of Dermatology in [address] [address] Anh Lee M.D. Nevi Multiple (Primary Dx); Melanoma Lower Limb Left (HCC); Screening Examination Skin Cancer; Angioma Graves; Keratosis Seborrheic; Rosacea Discharge Disposition: Home or Self Care 11/29/2023 Clinical Communication Department of Oncology in [place], [place] [address] [place] [phone] Pérez Zuniga M.D., Ph.D. 11/29/2023 Refill Department of Oncology in [address] [address] Pérez Zuniga M.D., Ph.D. Med Refill (Colcrys ) 11/27/2023 9:00 AM CDT - 11/27/2023 12:49 PM CDT Hospital Encounter Department of Radiation Oncology in [place], [place] [address] [place] [address] Tara López M.D. Melanoma Trunk (HCC); Secondary Malignant Neoplasm Bone (HCC) 11/27/2023 8:00 AM CDT - 11/27/2023 8:59 AM CDT Hospital Encounter Department of Radiation Oncology in [place], [place] [address] [place] [phone] Tara López M.D. Secondary Malignant Neoplasm Bone (HCC) (Primary Dx); Melanoma Trunk (HCC) 11/26/2023 1:45 PM CDT Infusion Department of Oncology in [place], [place] [address] [place] [phone] Pérez Zuniga M.D., Ph.D. Secondary Malignant Neoplasm Bone (HCC) (Primary Dx); Melanoma Trunk (HCC); Secondary Malignant Neoplasm Brain (HCC) 11/26/2023 1:00 PM CDT Office Visit Department of Oncology in [place], [place] [address] [place] [phone] Pérez Zuniga M.D., Ph.D. Secondary Malignant Neoplasm Bone (HCC) (Primary Dx); Melanoma Trunk (HCC); Secondary Malignant Neoplasm Brain (HCC) 11/26/2023 11:30 AM CDT Office Visit Department of Palliative Care in [address] [address] Valentine Kelsey M.D., M.S. Melanoma Trunk (HCC) (Primary Dx); Secondary Malignant Neoplasm Brain (HCC); Pain Cancer Associated; Palliative Care 11/26/2023 10:15 AM CDT Clinical Support Department of Palliative Care in [address] [address] Bereket Johnson APRN, C.N.P., D.N.P. Myriam Moody, R.N., [facility] Palliative Care 11/26/2023 Clinical Communication Department of Oncology in [place], [place] [address] [place] [phone] Anahy Amezcua R.N., O.C.N. Order Request 11/26/2023 Clinical Communication Department of Oncology in [address] [address] Pérez Zuniga M.D., Ph.D. Appt Request; Reschedule 11/26/2023 Orders Only Department of Radiation Oncology in [place], [place] [address] [place] [phone] Morenita Martínez P.A.-C., M.S. Melanoma Trunk (HCC) (Primary Dx); Secondary Malignant Neoplasm Bone (HCC) 11/26/2023 Orders Only Department of Oncology in [address] [address] Pérez Zuniga M.D., Ph.D. Melanoma Trunk (HCC) (Primary Dx); Secondary Malignant Neoplasm Brain (HCC); Secondary Malignant Neoplasm Bone (HCC) 11/25/2023 1:06 PM CDT - 11/25/2023 11:59 PM CDT Hospital Encounter Department of Radiology, [facility], in [address] [address] Pérez Zuniga M.D., Ph.D. Melanoma Trunk (HCC); Secondary Malignant Neoplasm Brain (HCC); Secondary Malignant Neoplasm Bone (HCC) Discharge Disposition: Home or Self Care 11/22/2023 12:15 PM CDT Clinical Communication Virtual Review in [address] [address] Pre-visit Intake from Last 3 Months Immunizations Name Administration Dates Next Due Influenza Laiv (Nasal) (Discontinued) 04/12/2015 ,04/07/2013,03/14/2012 Influenza TIV (IM) 03/14/2011 Influenza, Seasonal, Injectable 03/14/2011 Influenza, Unspecified 06/26/2010,2008,05/03/2008,2006,05/24/2006,04/16/2005 Td (Adult), adsorbed 07/28/2003,02/15/1994 Tdap 04/13/2021,06/26/2010 influenza LAIV (Nasal) (2 ye ars through 49 years) 04/12/2015,04/07/2013,03/14/2012,2008 influenza vaccine quad (FLUZONE/FLUARIX) (6 months and older)(PF) 06/05/2023,04/09/2022,03/23/2021,2019,04/07/2019,05/05/2018,04/19/2017,1 ,04/06/2014 Family History Medical History Relation Name Comments [...] Alcohol Use Standard Drinks/Week Comments Not Currently 0 (1 standard drink = 0.6 oz pur e alcohol) Occasional [employer] Utilities Answer Date Recorded In the past 12 months has th e [employer], gas, oil, or water [employer] threatened to shut off services in your [...] living? No 07/10/2023 Nutrition Answer Date Recorded On average, how many serving s of [...] your living situation today? I have a [facility] place to live 07/10/2023 Sex and Gender Information Value Date Recorded Sex Assigned at Female 05/31/2023 8:26 AM PROFESSOR OF THEOLOGY Gender Identity Female 05/31/2023 8:26 AM PROFESSOR OF THEOLOGY Sexual Orientation Straight 05/31/2023 8: 26 AM PROFESSOR OF THEOLOGY Last Filed Vital Signs Vital Sign Reading Time Taken Comments Blood Pressure 147/85 02/21/2024 2:07 PM CDT Pulse 91 02/21/2024 2:07 PM CDT Temperature 36.6 ??C (97.9 ??F) 02/21/2024 2:07 PM CD T Respiratory Rate 16 02/11/2024 3:29 PM CDT Oxygen Saturation 99% 02/11/2024 3:29 PM CDT Inhaled Oxygen Concentration - - Weight 88.6 kg (195 lb 5.2 oz) 02/21/2024 2:07 P M CDT Height 158.7 cm (5' 2.48) 02/11/2024 3:29 PM CD T Body Mass Index 35.18 02/11/2024 3:29 PM CDT Plan of Treatment Upcoming Encounters Date Type Department Care Team (Late st Contact Info) Description 02/25/2024 10:00 AM CDT Clinical Communication Virtual Review in [place], [place] [address] [place] [address] 02/27/2024 7:30 AM CDT Appointment Department of Radiology, [facility] in [place], [place] [address] [place] [address] Zhane Granados APRN, C.N.P. [address] [place] [phone] 02/27/2024 8:45 AM CDT Clinical Support Department of Palliative Care in [place], [place] [address] [place] [address] Bereket Johnson APRN, C.N.P., D.N.P. [address] [place] [phone] 02/27/2024 9:45 AM CDT Clinical Support Department of Palliative Care in [place], [place] [address] [place] [phone] Marija Olivas APRN, C.N.P., M.S.N. [address] [place] [phone] 02/27/2024 11:00 AM CDT Lab Department of Laboratory Medicine and Pathology, [facility] in [place], [place] [address] [place] [phone] Zhane Granados APRN, C.N.P. [address] [place] [phone] 02/27/2024 1:00 PM CDT Office Visit Department of Oncology in [place], [place] [address] [place] [phone] Pérez Zuniga M.D., Ph.D. [address] [place] [phone] 02/27/2024 1:45 PM CDT Infusion Department of Oncology in [place], [place] [address] [place] [phone] Zhane Granados APRN, C.N.P. [address] [place] [phone] 03/17/2024 7:00 AM CDT Clinical Communication Virtual Review in [place], [place] [address] [place] [address] 03/19/2024 10:45 AM CDT Clinical Support Department of Palliative Care in [place], [place] [address] [place] [phone] Marija Olivas APRN, C.N.P., M.S.N. [address] [place] [phone] 03/19/2024 11:30 AM CDT Office Visit Department of Palliative Care in [place], [place] [address] [place] [phone] Valentine Kelsey M.D., M.S. [address] [place] [phone] 03/19/2024 11:40 AM CDT Lab Department of Laboratory Medicine and Pathology, [facility], in [place], [place] [address] [place] [phone] Zhane Granados APRN, C.N.P. [address] [place] [phone] 03/19/2024 1:40 PM CDT Office Visit Department of Oncology in [place], [place] [address] [place] [phone] Pérez Zuniga M.D., Ph.D. [address] [place] [phone] 03/19/2024 2:45 PM CDT Infusion Department of Oncology in [address] [address] Zhane Granados APRN, C.N.P. [address] [place] [phone] 03/24/2024 3:00 PM CDT Clinical Communication Virtual Review in [place], [place] [address] [place] [address] 03/26/2024 7:45 AM CDT Appointment Department of Radiology, [facility], in [place], [place] [address] [place] [phone] Zhane Granados, GAIL, C.N.P. [address] [place] [phone] 03/26/2024 3:20 PM CDT Office Visit Department of Oncology in [place], [place] [address] [place] [phone] Pérez Zuniga M.D., Ph.D. [address] [place] [phone] Health Maintenance Due Date Last Done Comments CT Colonography 1977 Cervical Cancer Screening 1977 Colonoscopy 1977 FIT 1977 HIV Screening 1977 Hepatitis C Screening 1977 Pneumococcal vaccine (0-64 years) (1 of 2 - PCV) 1983 Hepatitis B Vaccines (1 of 3 - 19+ 3-dose series) 1996 Zoster Vaccines (1 of 2) 1996 Depression Screening (Annual PHQ-2) 07/15/2023 Influenza Vaccine (#1) 2024 , 04/09/2022, 03/23/2021, Additional history exists Mammogram 01/06/2025 01/07/2024, 12/14, 10/22/2022, Additional history exists Thyroid Stimulating Hormone (TSH) test for thyroid function 02/03/2025 02/04/2024, 01/14/2024, 12/26/2023, Additional history exists Lipid (Cholesterol) Screening 08/12/2025 08/12/2020 Cologuard 01/09/2027 01/10/2024 Colorectal Cancer Screening 01/09/2027 Fasting Glucose for Diabetes Screening 02/03/2027 02/04/2024, 01/29/2024, 01/14/2024, Additional history exists DTaP,Tdap,and Td Vaccines (4 - Td or Tdap) 04/13/2031 04/13/2021, 06/26/2010, 07/28/2003, Additional history exists COVID-19 Vaccine Completed 06/05/2023, , 04/19/2021, Additional history exists HPV Vaccines Aged Out No longer eligi ble based on patient's age to complete this topic Procedures Procedure Name Priority Date/Time Associated Diagnosis Comments ARIA DAILY TREATMENT INFORMATION Routine 02/21/2024 1:46 PM CDT ARIA COURSE COMPLETE TREATMENT INFORMATION Routine 02/20/2024 2:42 PM CDT ARIA COURSE COMPLETE TREATMENT INFORMATION Routine 02/19/2024 7:42 AM CDT MR THORACIC SPINE WITHOUT AND WITH IV CONTRAST RAD - Routine (most inpatients and all outpatients) 02/14/2024 10:23 AM CDT Melanoma Trunk (HCC) Secondary Malignant Neoplasm Bone (HCC) INITIAL RAD ONC TREATMENT PLANNING CT SIMULATION Routine 02/12/2024 3:30 PM CDT Secondary Malignant Neoplasm Bone (HCC) PET CT WHOLE BODY RAD - Routine (most inpatients and all outpatients) 02/11/2024 11:57 AM CDT 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) ND T4 FREE Routine 02/04/2024 10:46 AM CDT THYROPEROXIDASE (TPO) ABS, S Routine 02/04/2024 10:46 AM CDT THYROID FUNCTION CASCADE, S Routine 02/04/2024 10:46 AM CDT 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) LACTATE DEHYDROGENASE (LD), S Routine 02/04/2024 10:46 AM CDT 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) BILIRUBIN DIRECT, S/P Routine 02/04/2024 10:46 AM CDT 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) COMPREHENSIVE METABOLIC PANEL, S/P Routine 02/04/2024 10:46 AM CDT 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) CBC WITH DIFFERENTIAL, B Routine 02/04/2024 10:46 AM CDT 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) HEMATOLOGY/ONCOLOGY - BLOOD, EXTERNAL LAB RESULTS Routine 01/29/2024 2:40 PM CDT (TTE) 2D LIMITED WITH LIMITED DOPPLER Routine 01/15/2024 9:28 AM CDT Melanoma Trunk (HCC) Other Assessor Current Drug Therapy ECG Routine 01/14/2024 9:59 AM CDT Melanoma Trunk (HCC) Other Assessor Current Drug Therapy ND T4 FREE Routine 01/14/2024 7:34 AM CDT THYROPEROXIDASE (TPO) ABS, S Routine 01/14/2024 7:34 AM CDT THYROID FUNCTION CASCADE, S Routine 01/14/2024 7:34 AM CDT 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) LACTATE DEHYDROGENASE (LD), S Routine 01/14/2024 7:34 AM CDT 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) BILIRUBIN DIRECT, S/P Routine 01/14/2024 7:34 AM CDT 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) COMPREHENSIVE METABOLIC PANEL, S/P Routine 01/14/2024 7:34 AM CDT 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) CBC WITH DIFFERENTIAL, B Routine 01/14/2024 7:34 AM CDT 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) MR BRAIN WITHOUT AND WITH IV CONTRAST RAD - Routine (most inpatients and all outpatients) 01/14/2024 6:52 AM CDT Melanoma Trunk (HCC) Secondary Malignant Neoplasm Brain (HCC) HEMATOLOGY/ONCOLOGY - BLOOD, EXTERNAL LAB RESULTS Routine 01/07/2024 1:03 PM CDT ND T3 TOTAL Routine 12/26/2023 7:18 AM CDT ND T4 FREE Routine 12/26/2023 7:18 AM CDT THYROID FUNCTION CASCADE, S Routine 12/26/2023 7:18 AM CDT 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) LACTATE DEHYDROGENASE (LD), S Routine 12/26/2023 7:18 AM CDT 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) BILIRUBIN DIRECT, S/P Routine 12/26/2023 7:18 AM CDT 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) COMPREHENSIVE METABOLIC PANEL, S/P Routine 12/26/2023 7:18 AM CDT 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) CBC WITH DIFFERENTIAL, B Routine 12/26/2023 7:18 AM CDT 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) HEMATOLOGY/ONCOLOGY - BLOOD, EXTERNAL LAB RESULTS Routine 12/18/2023 8:04 PM CDT ARIA COURSE COMPLETE TREATMENT INFORMATION Routine 12/12/2023 10:50 AM CDT ARIA DAILY TREATMENT INFORMATION Routine 12/12/2023 10:50 AM CDT ARIA DAILY TREATMENT INFORMATION Routine 12/11/2023 1:51 PM CDT ARIA DAILY TREATMENT INFORMATION Routine 12/10/2023 11:11 AM CDT ARIA DAILY TREATMENT INFORMATION Routine 12/10/2023 10:49 AM CDT ARIA DAILY TREATMENT INFORMATION Routine 12/06/2023 1:51 PM CDT ARIA COURSE COMPLETE TREATMENT INFORMATION Routine 12/06/2023 8:55 AM CDT ARIA DAILY TREATMENT INFORMATION Routine 12/05/2023 2:00 PM CDT ARIA DAILY TREATMENT INFORMATION Routine 12/04/2023 2:07 PM CDT ARIA COURSE COMPLETE TREATMENT INFORMATION Routine 12/04/2023 11:59 AM CDT INITIAL RAD ONC TREATMENT PLANNING CT SIMULATION Routine 11/27/2023 9:00 AM CDT Melanoma Trunk (HCC) Secondary Malignant Neoplasm Bone (HCC) PET CT SKULL TO THIGH RAD - Routine (most inpatients and all outpatients) 11/25/2023 3:40 PM CDT 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) THYROID FUNCTION CASCADE, S Routine 11/25/2023 1:04 PM CDT 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) LACTATE DEHYDROGENASE (LD), S Routine 11/25/2023 1:04 PM CDT 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) BILIRUBIN DIRECT, S/P Routine 11/25/2023 1:04 PM CDT 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) COMPREHENSIVE METABOLIC PANEL, S/P Routine 11/25/2023 1:04 PM CDT 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) CBC WITH DIFFERENTIAL, B Routine 11/25/2023 1:04 PM CDT 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) from Last 3 Months Results * Aria Daily Treatment Information (02/21/2024 1:46 PM CDT) Only the most recent of8 resultswithin the time period is included. Course ID [id number] ARAGON ARIA Course Start Date 4 14:52 CDT ARAGON ARIA First Treatment Date 4 13:22 CDT ARAGON ARIA Last Treatment Date 4 13:46 CDT ARAGON ARIA Treatment Elapsed Days 0 ARAGON ARIA Reference Point [id number] ARAGON ARIA Dosage Given to Date cGy 2400 ARAGON ARIA Session Dosage Given 2400 ARAGON ARIA Reference Point [id number] Ischium ARAGON ARIA Dosage Given to Date cGy 2400 ARAGON ARIA Session Dosage Given 2400 ARAGON ARIA Plan ID [id number] ARAGON ARIA Fractions Treated to Date 1 ARAGON ARIA Planned Total Fractions 1 ARAGON ARIA Prescribed Dose Per Fraction 2400 ARAGON ARIA Prescription Dose in cGy 2400 ARAGON ARIA Plan Primary Reference Point [id number] [id number] ARAGON ARIA Plan ID [id number] ARAGON ARIA Fractions Treated to Date 1 ARAGON ARIA Planned Total Fractions 1 ARAGON ARIA Prescribed Dose Per Fraction 2400 ARAGON ARIA Prescription Dose in cGy 2400 ARAGON ARIA Plan Primary Reference Point [id number] Ischium ARAGON ARIA 02/21/2024 1:46 PM CDT Provider Not In System RADIATION ONCOLOG Y ORDERABLES ARAGON ARIA na * Aria Course Complete Treatment Information (02/20/2024 2:42 PM CDT) Only the most recent of5 resultswithin the time period is included. Course ID [id number] ARAGON ARIA Course Start Date 10/24/2023 15:34 CDT ARAGON ARIA Course End Date 02/20/2024 14:42 CDT ARAGON ARIA Reference Point [id number] ARAGON ARIA Dosage Given to Date cGy 0 ARAGON ARIA Reference Point [id number] ARAGON ARIA Dosage Given to Date cGy 0 ARAGON ARIA Reference Point [id number] ium ARAGON ARIA Dosage Given to Date cGy 0 ARAGON ARIA Reference Point [id number] rosa isela ARAGON ARIA Dosage Given to Date cGy 0 ARAGON ARIA Plan ID [id number] ARAGON ARIA Fractions Treated to Date 0 ARAGON ARIA Planned Total Fractions 10 ARAGON ARIA Prescribed Dose Per Fraction 300 ARAGON ARIA Prescription Dose in cGy 3000 ARAGON ARIA Plan Primary Reference Point [id number] ARAGON ARIA Plan ID [id number] ARAGON ARIA Fractions Treated to Date 0 ARAGON ARIA Planned Total Fractions 10 ARAGON ARIA Prescribed Dose Per Fraction 300 ARAGON ARIA Prescription Dose in cGy 3000 ARAGON ARIA Plan Primary Reference Point [id number] ARAGON ARIA Plan ID [id number] ARAGON ARIA Fractions Treated to Date 0 ARAGON ARIA Planned Total Fractions 1 ARAGON ARIA Prescribed Dose Per Fraction 2000 ARAGON ARIA Prescription Dose in cGy 2000 ARAGON ARIA Plan Primary Reference Point [id number] ARAGON ARIA Plan ID [id number] ARAGON ARIA Fractions Treated to Date 0 ARAGON ARIA Planned Total Fractions 1 ARAGON ARIA Prescribed Dose Per Fraction 2400 ARAGON ARIA Prescription Dose in cGy 2400 ARAGON ARIA Plan Primary Reference Point [id number] ARAGON ARIA Plan ID [id number] ARAGON ARIA Fractions Treated to Date 0 ARAGON ARIA Planned Total Fractions 1 ARAGON ARIA Prescribed Dose Per Fraction 2400 ARAGON ARIA Prescription Dose in cGy 2400 ARAGON ARIA Plan Primary Reference Point [id number] ium ARAGON ARIA Plan ID [id number] ARAGON ARIA Fractions Treated to Date 0 ARAGON ARIA Planned Total Fractions 1 ARAGON ARIA Prescribed Dose Per Fraction 2400 ARAGON ARIA Prescription Dose in cGy 2400 ARAGON ARIA Plan Primary Reference Point [id number] ium ARAGON ARIA Plan ID [id number] ARAGON ARIA Fractions Treated to Date 0 ARAGON ARIA Planned Total Fractions 3 ARAGON ARIA Prescribed Dose Per Fraction 1200 ARAGON ARIA Prescription Dose in cGy 3600 ARAGON ARIA Plan Primary Reference Point [id number] rosa isela ARAGON ARIA 02/20/2024 2:42 PM CDT Provider Not In System RADIATION ONCOLOG Y ORDERABLES MAHESH COCHRAN na * MR Thoracic Spine without and with IV Contrast (02/14/2024 10:23 AM CDT) Anatomical Region Laterality Modality Thoracic Spine, Neuroradiolo gy RST LOS, Neuroradiology ARZ LOS, Neuroradiology FLA LOS N/A Magnetic Resonance Impressions 02/14/2024 11:18 AM CDT 1. Multifocal osseous metastatic disease in the visualized thoracic and upper lumbar spine with pathologic fractures and mild height loss of the T10 and T11 vertebral bodies. No evidence of epidural disease. Narrative 02/14/2024 11:18 AM CDT EXAM: MR THORACIC SPINE WITHOUT AND WITH IV CONTRAST COMPARISON:PET/CT 02/11/2024 FINDINGS: Multifocal osseous metastatic disease in the visualized thoracic and upper lumbar spine. 13 x 11 mm metastasis anterior aspect of the T5 vertebral body without appreciable height loss. 14 x 10 mm metastasis anterior T8 vertebral body without height loss. 17 x 17 mm metastasis T9 vertebral body without height loss. 19 x 21 mm metastasis posterior T10 vertebral body with pathologic fracture and mild height loss. No evidence of epidural disease. The T11 vertebral body is diffusely replaced by a large metastasis with prevertebral extension. No definite epidural disease. No disease in the foramina bilaterally. There is an associated pathologic fracture of the T11 vertebral body with mild height loss. 8 mm metastatic lesion in the left lamina of T11 vertebral body. 21 x 20 mm metastatic lesion right aspect of the posterior L1 vertebral body without appreciable height loss. No evidence of epidural disease. 13 x 11 mm metastasis anterosuperior aspect of L2 vertebral body. 11 x 12 mm metastasis posteroinferior aspect of the L2 vertebral body. Procedure Note Tamar Veronica M.D. - 02/14/2024 EXAM: MR THORACIC SPINE WITHOUT AND WITH IV CONTRAST COMPARISON:PET/CT 02/11/2024 FINDINGS: Multifocal osseous metastatic disease in the visualized thoracic and upperlumbar spine. 13 x 11 mm metastasis anterior aspect of the T5 vertebral body withoutappreciable height loss. 14 x 10 mm metastasis anterior T8 vertebral body without height loss. 17 x 17 mm metastasis T9 vertebral body without height loss. 19 x 21 mm metastasis posterior T10 vertebral body with pathologicfracture and mild height loss. No evidence of epidural disease. The T11 vertebral body is diffusely replaced by a large metastasis withprevertebral extension. No definite epidural disease. No disease in theforamina bilaterally. There is an associated pathologic fracture of theT11 vertebral body with mild height loss. 8 mm metastatic lesion in the left lamina of T11 vertebral body. 21 x 20 mm metastatic lesion right aspect of the posterior L1 vertebralbody without appreciable height loss. No evidence of epidural disease. 13 x 11 mm metastasis anterosuperior aspect of L2 vertebral body. 11 x 12mm metastasis posteroinferior aspect of the L2 vertebral body. IMPRESSION: 1. Multifocal osseous metastatic disease in the visualized thoracic andupper lumbar spine with pathologic fractures and mild height loss of theT10 and T11 vertebral bodies. No evidence of epidural disease. Tara HERBERT MRI PROCEDURE S * Initial Rad Onc Treatment Planning CT Simulation without IV Contrast (02/12/2024 3:30 PM CDT) Only the most recent of2 resultswithin the time period is included. Narrative MAHESH COCHRAN - 02/12/2024 3:30 PM CDT Latasha Kelsey, RTT ? 02/12/2024 ??3:41 PM Initial Rad Onc Treatment Planning CT Simulation without IV Contrast Performed by: Tara López M.D. Authorized by: Tara López M.D. ?? Tara López M.D. RADIATION ONCOLOG Y ORDERABLES MAHESH COCHRAN na * PET CT Whole Body FDG (02/11/2024 11:57 AM CDT) Anatomical Region Laterality Modality Whole body, Nuclear Medicine PET RST LOS, PET ARZ LOS, Nuclear Medicine PET FLA LOS, Nuclear Medicine N/A Positron Emission Tomogr aphy (PET), Positron Emission Tomography (PET) Impressions 02/11/2024 2:22 PM CDT 1. Overall, there is progression of the FDG avid metastatic disease with increased uptake of a few osseous metastases and new/increased pulmonary and fe metastases, despite multiple of the osseous metastases demonstrating decreased uptake including the radiated lesions in the left humerus and bilateral femurs. 2. New T11 pathologic fracture. 3. Increasing FDG uptake associated with the cystic and solid left adnexal mass. This is indeterminant but favored to represent melanoma metastasis given marked decrease in size and uptake since outside PET/CT from 05/15/2023 and given interval therapy for melanoma. 4. Diffuse elevated uptake of the thyroid gland concerning for thyroiditis. Narrative 02/11/2024 2:22 PM CDT REVISED REPORT: EXAM: ??PET CT WHOLE BODY FDG Serum glucose at time of F-18 FDG injection was 82 mg/dL. Patient followed standard dietary/fasting requirements for this exam. RADIOPHARMACEUTICAL/MEDS: Route: intravenous fludeoxyglucose F 18 injection [facility] (FDG F-18),9.95 millicurie TECHNIQUE: ??F-18 FDG PET/CT scan was performed from the vertex through the toes with low dose, non-contrast, free-breathing CT images for attenuation correction and anatomic localization (AC/AL), with imaging beginning at approximately 60 minutes after radiotracer injection. COMPARISON: ??FDG PET/CT 11/25/2023; brain MR 01/14/2024 INDICATION: ??Metastatic melanoma status post systemic therapy and focal radiation to the brain metastases. Interval treatment with immunotherapy and focal radiation to left humerus and bilateral femoral metastases. Subsequent treatment strategy. The patient reports no recent vaccinations. FINDINGS: ??Overall, there is progression of the metastatic disease with increasing FDG uptake of multiple osseous lesions and new/increased pulmonary and fe metastases, despite, the majority of the osseous metastases demonstrating decreased FDG uptake. Decreased uptake associated with the radiated proximal left humeral and bilateral metastases. For example: -Left humeral metastasis, SUV max 2.5, previously 13.2 -Distal left humeral metastasis, SUV max of 2.2, previously 12.1 -Distal right humeral metaphysis, SUV max of 3.4, previously 12.7. Multiple osseous lesions have decreasing FDG. For example: -T5 lytic metastasis now without significant FDG uptake, previously SUV max 9.5 -L1 metastasis, SUV max 6.3, previously 10.7 -Mid left femoral shaft, SUV max 4.8 (axial fused image 341), previously 8.7 -Distal left humeral metastases, SUV max 6.1, previously 7.8 Two osseous lesions demonstrate increasing FDG uptake including the T11 vertebral body metastasis with new pathologic compression fracture, SUV max of 13.1 (axial fused image 164), previously 8.6, and the right ischium metastasis, SUV max 14.2 (axial fused image 281), previously 8.4. Metastases within the bilateral tibias were previously off the [id number] now demonstrating SUV max values of 9.7 on the right (axial fused image 458) and 5.5 on the left (axial fused image 448). Multiple new/increased FDG avid lymph nodes (best appreciated on advanced reconstructed images) including multiple cervical lymph node with most prominent having an SUV max of 4.1 (axial fused image 74), multiple left axillary with the most prominent having an SUV max of 2.0 (axial fused image 107), a left external iliac lymph node now with an SUV max of 4.0 (axial fused image 256), previously 2.0, and multiple inguinal lymph nodes with the most prominent in the left inguinal region with an SUV max of 7.0 (axial fused image 295), previously 0.9. Multiple FDG avid periaortic lymph nodes are largely stable including a left periaortic lymph node with an SUV max of 2.6 (axial fused image 214). Increasing uptake associated with the cystic and solid left adnexal mass now with an SUV max of 10.0, previously 6.3. Increasing size and FDG uptake of multiple pulmonary nodules including an 8 mm right lower lobe nodule with an SUV max of 1.4 (axial fused image 137; CT image 142) and an 8 mm left lower lobe nodule with an SUV max of 1.1 (SUV max value is likely under evaluated due to respiratory motion, a PET image 147; CT image 153). Known brain metastases are not well evaluated by FDG PET CT due to intense physiologic brain uptake. These were better evaluated on comparison MRI. New diffusely increased FDG uptake throughout the thyroid gland. Scattered degenerative type uptake. Otherwise, normal physiologic radiotracer uptake. Incidental findings on low-dose unenhanced CT: Splenule. Hepatic cyst. Procedure Note Chas Dorman - 02/12/2024 REVISED REPORT: EXAM: PET CT WHOLE BODY FDG Serum glucose at time of F-18 FDG injection was 82 mg/dL. Patient followedstandard dietary/fasting requirements for this exam. RADIOPHARMACEUTICAL/MEDS: Route: intravenous fludeoxyglucose F 18 injection [facility] (FDG F-18),9.95 millicurie TECHNIQUE: F-18 FDG PET/CT scan was performed from the vertex through thetoes with low dose, non-contrast, free-breathing CT images for attenuationcorrection and anatomic localization (AC/AL), with imaging beginning atapproximately 60 minutes after radiotracer injection. COMPARISON: FDG PET/CT 11/25/2023; brain MR 01/14/2024 INDICATION: Metastatic melanoma status post systemic therapy and focalradiation to the brain metastases. Interval treatment with immunotherapyand focal radiation to left humerus and bilateral femoral metastases.Subsequent treatment strategy. The patient reports no recent vaccinations. FINDINGS: Overall, there is progression of the metastatic disease withincreasing FDG uptake of multiple osseous lesions and new/increasedpulmonary and fe metastases, despite, the majority of the osseousmetastases demonstrating decreased FDG uptake. Decreased uptake associated with the radiated proximal left humeral andbilateral metastases. For example: -Left humeral metastasis, SUV max 2.5, previously 13.2 -Distal left humeral metastasis, SUV max of 2.2, previously 12.1 -Distal right humeral metaphysis, SUV max of 3.4, previously 12.7. Multiple osseous lesions have decreasing FDG. For example: -T5 lytic metastasis now without significant FDG uptake, previously SUVmax 9.5 -L1 metastasis, SUV max 6.3, previously 10.7 -Mid left femoral shaft, SUV max 4.8 (axial fused image 341), previously8.7 -Distal left humeral metastases, SUV max 6.1, previously 7.8 Two osseous lesions demonstrate increasing FDG uptake including the [id number] body metastasis with new pathologic compression fracture, SUVmax of 13.1 (axial fused image 164), previously 8.6, and the right ischiummetastasis, SUV max 14.2 (axial fused image 281), previously 8.4. Metastases within the bilateral tibias were previously off [id number] now demonstrating SUV max values of 9.7 on the right (axialfused image 458) and 5.5 on the left (axial fused image 448). Multiple new/increased FDG avid lymph nodes (best appreciated on advancedreconstructed images) including multiple cervical lymph node with mostprominent having an SUV max of 4.1 (axial fused image 74), multiple leftaxillary with the most prominent having an SUV max of 2.0 (axial fused image 107), a left external iliaclymph node now with an SUV max of 4.0 (axial fused image 256), previously2.0, and multiple inguinal lymph nodes with the most prominent in the leftinguinal region with an SUV max of 7.0 (axial fused image 295), previously 0.9. Multiple FDG avidperiaortic lymph nodes are largely stable including a left periaorticlymph node with an SUV max of 2.6 (axial fused image 214). Increasing uptake associated with the cystic and solid left adnexal massnow with an SUV max of 10.0, previously 6.3. Increasing size and FDG uptake of multiple pulmonary nodules including an8 mm right lower lobe nodule with an SUV max of 1.4 (axial fused [id number]; CT image 142) and an 8 mm left lower lobe nodule with an SUV max of1.1 (SUV max value is likely under evaluated due to respiratory motion, a PET image 147; CT image 153). Known brain metastases are not well evaluated by FDG PET CT due to intensephysiologic brain uptake. These were better evaluated on comparison MRI. New diffusely increased FDG uptake throughout the thyroid gland. Scattered degenerative type uptake. Otherwise, normal physiologicradiotracer uptake. Incidental findings on low-dose unenhanced CT: Splenule. Hepatic cyst. IMPRESSION: 1. Overall, there is progression of the FDG avid metastatic disease withincreased uptake of a few osseous metastases and new/increased pulmonaryand fe metastases, despite multiple of the osseous metastasesdemonstrating decreased uptake including the radiated lesions in the left humerus and bilateral femurs. 2. New T11 pathologic fracture. 3. Increasing FDG uptake associated with the cystic and solid left adnexalmass. This is indeterminant but favored to represent melanoma metastasisgiven marked decrease in size and uptake since outside PET/CT from05/15/2023 and given interval therapy for melanoma. 4. Diffuse elevated uptake of the thyroid gland concerning forthyroiditis. Harsha Roberts APRN.N.P. IMG NM ND OCEDURES * T4 (Thyroxine), Free, Serum (02/04/2024 10:46 AM CDT) Only the most recent of3 resultswithin the time period is included. T4 (Thyroxine), Free, S 0.9 0.9 - 1.7 ng/dL 02/04/2024 12:08 PM CDT DTL Blood 02/04/2024 10:4 6 AM CDT 02/04/2024 11:15 AM CDT Zhane Granados APRN, C.N.P. LAB BLOOD ADD-ON [facility] [address] [place] [address], [facility] [address] [place] [address] * (ABNORMAL) Thyroid Function [place] (02/04/2024 10:46 AM CDT) Only the most recent of4 resultswithin the time period is included. TSH, Sensitive 38.3(H) 0.3 - 4.2 mIU/L 02/04/2024 11:48 AM CDT DTL Blood (Blood, Venous) 02/04/2024 10:46 AM CDT 02/04/2024 11:15 AM CDT Price Roberts APRNN.P. LAB BLOOD ADD-ON Performing Organization Address City/[facility]/ZIP Co de Phone Number [facility] [address] [place] [address], [facility] [place] [address] * Thyroperoxidase (TPO) Antibodies (02/04/2024 10:46 AM CDT) Only the most recent of2 resultswithin the time period is included. [facility] Thyroperoxidase Ab, S 16.9 <34.0 IU/mL 02/04/2024 12:08 PM CDT DTL Blood 02/04/2024 10:4 6 AM CDT 02/04/2024 11:15 AM CDT Price Roberts APRNN.P. LAB BLOOD ADD-ON Performing Organization Address [facility] Co de Phone Number [facility] [address] [place] [address], [place] [address] * (ABNORMAL) CBC with Differential, Blood (02/04/2024 10:46 AM CDT) Only the most recent of4 resultswithin the time period is included. Pathologist [facility] Hemoglobin 11.2(L) 11.6 - 15.0 g/dL 02/04/2024 11:39 AM CDT DTL Hematocrit 36.4 35.5 - 44.9 % 02/04/2024 11:39 AM CDT DTL Erythrocytes 4.16 3.92 - 5.13 x10(12)/L 02/04/2024 11:39 AM CDT DTL MCV 87.5 78.2 - 97.9 fL 02/04/2024 11:39 AM CDT DTL RBC Distrib Width 15.5 12.2 - 16.1 % 02/04/2024 11:39 AM CDT DTL Platelet Count 388(H) 157 - 371 x10(9)/L 02/04/2024 11:39 AM CDT DTL Leukocytes 8.6 3.4 - 9.6 x10(9)/L 02/04/2024 11:39 AM CDT DTL Neutrophils 5.97 1.56 - 6.45 x10(9)/L 02/04/2024 11:39 AM CDT DHPM Lymphocytes 1.64 0.95 - 3.07 x10(9)/L 02/04/2024 11:39 AM CDT DTL Monocytes 0.60 0.26 - 0.81 x10(9)/L 02/04/2024 11:39 AM CDT DTL Eosinophils 0.20 0.03 - 0.48 x10(9)/L 02/04/2024 11:39 AM CDT DTL Basophils 0.16(H) 0.01 - 0.08 x10(9)/L 02/04/2024 11:39 AM CDT DTL Blood (Blood, Venous) 02/04/2024 10:46 AM CDT 02/04/2024 11:01 AM CDT Zhane Granados APRN, C.N.P. LAB BLOOD ADD-ON [facility] [address] [place] [address], [facility] DTL [facility] [address] [place] [address] [facility] [address] [place] [address] * (ABNORMAL) LD (Lactate Dehydrogenase) (02/04/2024 10:46 AM CDT) Only the most recent of4 resultswithin the time period is included. [facility] Litzy LD 268(H) 122 - 222 U/L 02/04/2024 11:56 AM CDT DTL Blood (Blood, Venous) 02/04/2024 10:46 AM CDT 02/04/2024 11:35 AM CDT Price Roberts APRNN.P. LAB BLOOD NON ADD-ON [facility] [address] [place] [address], [facility] [address] [place] [address] * Bilirubin, Direct (02/04/2024 10:46 AM CDT) Only the most recent of4 resultswithin the time period is included. Bilirubin, Direct, S <0.2 0.0 - 0.3 mg/dL 02/04/2024 11:48 AM CDT DTL Blood (Blood, Venous) 02/04/2024 10:46 AM CDT 02/04/2024 11:15 AM CDT Price Roberts APRNN.P. LAB BLOOD ADD-ON Performing Organization Address City/[facility] Co de Phone Number [facility] [address] [place] [address], [facility] [address] [place] [address] * (ABNORMAL) Comprehensive Metabolic Panel (02/04/2024 10:46 AM CDT) Only the most recent of4 resultswithin the time period is included. Potassium, S 4.6 3.6 - 5.2 mmol/L 02/04/2024 11:48 AM CDT DTL Sodium, S 137 135 - 145 mmol/L 02/04/2024 11:48 AM CDT DTL Chloride, S 103 98 - 107 mmol/L 02/04/2024 11:48 AM CDT DTL Bicarbonate, S 24 22 - 29 mmol/L 02/04/2024 11:48 AM CDT DTL Anion Gap 10 7 - 15 02/04/2024 11:48 AM CDT DTL BUN (Blood Urea Nitrogen), S 15 6 - 21 mg/dL 02/04/2024 11:48 AM CDT DTL Creatinine 0.88 0.59 - 1.04 mg/dL 02/04/2024 11:48 AM CDT DTL Estimated GFR (eGFR) 82 >=60 mL/min/BS A 02/04/2024 11:48 AM CDT DTL Comment: Estimated GFR calculated using the 2020 CKD_EPI creatinine equation. Calcium, Total, S 9.0 8.6 - 10.0 mg/dL 02/04/2024 11:48 AM CDT DTL Glucose, S 97 70 - 140 mg/dL 02/04/2024 11:48 AM CDT DTL Protein, Total, S 7.3 6.3 - 7.9 g/dL 02/04/2024 11:48 AM CDT DTL Albumin, S 4.0 3.5 - 5.0 g/dL 02/04/2024 11:48 AM CDT DTL Aspartate Aminotransferase (AST), S 32 8 - 43 U/L 02/04/2024 11:48 AM CDT DTL Alkaline Phosphatase, S 106(H) 35 - 104 U/L 02/04/2024 12:08 PM CDT DTL Alanine Aminotransferase (ALT), S 31 7 - 45 U/L 02/04/2024 11:48 AM CDT DTL Bilirubin, Total, S 0.2 0.0 - 1.2 mg/dL 02/04/2024 11:48 AM CDT DTL Blood (Blood, Venous) 02/04/2024 10:46 AM CDT 02/04/2024 11:15 AM CDT Zhane Granados APRN, C.N.P. LAB BLOOD ADD-ON [facility] [address] [place] [address], [facility] DTL [facility] [address] [place] [address] * (ABNORMAL) Hematology/Oncology - Blood, External Lab Results (01/29/2024 2:40 PM CDT) Only the most recent of3 resultswithin the time period is included. EXT AST 41(A) 10 - 35 OTHER (SPECIFY IN PATIENT SUPPORT REPRESENTATIVE) EXT ALT 30 10 - 35 OTHER (SPECIFY IN PATIENT SUPPORT REPRESENTATIVE) EXT Alkaline Phosphatase 132(A) 35 - 104 OTHER (SPECIFY IN PATIENT SUPPORT REPRESENTATIVE) EXT Bilirubin, Total 0.2 0.0 - 1.2 OTHER (SPECIFY IN PATIENT SUPPORT REPRESENTATIVE) EXT Sodium 138 136 - 145 OTHER (SPECIFY IN PATIENT SUPPORT REPRESENTATIVE) EXT Potassium 4.7 3.5 - 5.1 OTHER (SPECIFY IN PATIENT SUPPORT REPRESENTATIVE) EXT Calcium, Total 9.1 8.6 - 10.0 OTHER (SPECIFY IN PATIENT SUPPORT REPRESENTATIVE) EXT Creatinine 0.96(A) 0.50 - 0.90 OTHER (SPECIFY IN PATIENT SUPPORT REPRESENTATIVE) EXT Total Protein 7.9 6.0 - 8.0 OTHER (SPECIFY IN PATIENT SUPPORT REPRESENTATIVE) EXT Albumin 4.0 4.0 - 4.9 OTHER (SPECIFY IN PATIENT SUPPORT REPRESENTATIVE) EXT Glucose, 180 Min 96 70 - 99 OTHER (SPECIFY IN PATIENT SUPPORT REPRESENTATIVE) Blood 01/29/2024 2:40 PM CDT Historical Provider LAB BLOOD NON ADD-ON OTHER (SPECIFY IN PATIENT SUPPORT REPRESENTATIVE) N/A * (TTE) 2D LIMITED WITH LIMITED DOPPLER (01/15/2024 9:28 AM CDT) Ejection Fraction 62 MC CV EIMS LV End-Diastolic Diameter 48 MC CV EIMS LV End-Systolic Diameter 32 MC CV EIMS LV End-Diastolic Volume 116 MC CV EIMS LV End-Systolic Volume 44 MC CV EIMS Left ventricular stroke volume index 36 MC CV EIMS Cardiac Output 4.98 MC CV EIMS Cardiac Index 2.66 MC CV EIMS LV Global Longitudinal Strain -20 MC CV EIMS Tricuspid Annular S? 0.13 MC CV EIMS TR Vmax 2 MC CV EIMS RA Pressure 5 MC CV EIMS RV Systolic Pressure 21 MC CV EIMS Anatomical Region Laterality Modality Other 01/15/2024 8:42 AM CDT Impressions 01/15/2024 9:32 AM CDT Last full echocardiogram performed 06/20/2023. Echocardiogram performed per chemotherapy protocol to assess left ventricular function. LEFT VENTRICLE:Normal left ventricular chamber size. Calculated 2-D biplane volumetric left ventricular ejection fraction of 62%. Global averaged left ventricular longitudinal peak systolic strain is normal at -20% (normal = more negative than -18%). Left ventricular cardiac index 2.66 l/min/m2. No regional wall motion abnormalities. RIGHT VENTRICLE:Normal right ventricular chamber size. Normal right ventricular systolic function. Estimated right ventricular systolic pressure 21 mmHg (right atrial pressure of 5 mmHg). ATRIA:Normal left atrial size. Normal right atrial size. CARDIAC VALVES:Normal tricuspid valve. Trivial tricuspid valve regurgitation. OTHER ECHO FINDINGS:The inferior vena cava is continuously collapsed to a minimal size. Tiny anterior pericardial effusion (view #[phone]). For the complete report, see the Order-Level Documents. Narrative 01/15/2024 9:32 AM CDT For the complete report, see the Order-Level Documents. Hemodynamics Heart Rate: 74 BPM Blood Pressure: 118 / 84 mmHg ECG: Sinus rhythm Final Impressions 1. Normal left ventricular chamber size, no regional wall motion abnormalities, calculated 2-D biplane volumetric ejection fraction of 62%, global averaged longitudinal peak systolic strain is normal at -20% (normal = more negative than -18%). 2. Normal right ventricular chamber size, normal systolic function, estimated right ventricular systolic pressure 21 mmHg (right atrial pressure of 5 mmHg). 3. No ??significant valvular heart disease. 4. Tiny anterior pericardial effusion. 5. Compared to the report of 08/21/2023 no significant change has occurred. Side by side comparison of images performed. The pericardial effusion is better seen on today's exam. Procedure Note Yung Paulino M.D. - 01/15/2024 For the complete report, see the Order-Level Documents. Hemodynamics Heart Rate: 74 BPM Blood Pressure: 118 / 84 mmHg ECG: Sinus rhythm Final Impressions 1. Normal left ventricular chamber size, no regional wall motionabnormalities, calculated 2-D biplane volumetric ejection fraction of 62%,global averaged longitudinal peak systolic strain is normal at -20%(normal = more negative than -18%). 2. Normal right ventricular chamber size, normal systolic function,estimated right ventricular systolic pressure 21 mmHg (right atrialpressure of 5 mmHg). 3. No significant valvular heart disease. 4. Tiny anterior pericardial effusion. 5. Compared to the report of 08/21/2023 no significant change hasoccurred. Side by side comparison of images performed. The pericardialeffusion is better seen on today's exam. Findings Last full echocardiogram performed 06/20/2023. Echocardiogram performedper chemotherapy protocol to assess left ventricular function. LEFT VENTRICLE:Normal left ventricular chamber size. Calculated 2-Dbiplane volumetric left ventricular ejection fraction of 62%. Globalaveraged left ventricular longitudinal peak systolic strain is normal at-20% (normal = more negative than -18%). Left ventricular cardiac index2.66 l/min/m2. No regional wall motion abnormalities. RIGHT VENTRICLE:Normal right ventricular chamber size. Normal rightventricular systolic function. Estimated right ventricular systolicpressure 21 mmHg (right atrial pressure of 5 mmHg). ATRIA:Normal left atrial size. Normal right atrial size. CARDIAC VALVES:Normal tricuspid valve. Trivial tricuspid valveregurgitation. OTHER ECHO FINDINGS:The inferior vena cava is continuously collapsed to aminimal size. Tiny anterior pericardial effusion (view #[phone]). For the complete report, see the Order-Level Documents. Price Roberts APRNNSantoshP. CV ECHO P ROCEDURES * ECG 12 Lead (01/14/2024 9:59 AM CDT) Ventricular Rate ECG/Min 75 BPM MUSE ND Interval 134 ms MUSE QRSD Interval 82 ms MUSE QT Interval 404 ms MUSE QTC Interval 451 ms MUSE P [place] 47 degrees MUSE R [place] 76 degrees MUSE T Wave [place] 40 degrees MUSE 01/14/2024 9:59 AM CDT 01/14/2024 11:26 AM CDT Impressions MUSE - 01/14/2024 10:10 AM CDT Sinus rhythm Low anterior forces Nonspecific ST and T wave abnormality When compared with ECG of 19-Aug-2023 06:58, No significant change was found Reviewed by BREANNA Shanks Narrative Procedure Note Denny Coleman M.D. - 01/14/2024 IMPRESSION: Sinus rhythm Low anterior forces Nonspecific ST and T wave abnormality When compared with ECG of 19-Aug-2023 06:58, No significant change was found Reviewed by BREANNA Shanks Price Roberts APRNN.P. ECG ORDER DANIEL MUSE NA * MR Brain without and with IV Contrast (01/14/2024 6:52 AM CDT) Anatomical Region Laterality Modality Head, Brain, Neuroradiology RST LOS, Neuroradiology ARZ LOS, Neuroradiology FLA LOS N/A Magnetic Resonance Impressions 01/14/2024 9:09 AM CDT 1. Multiple intracranial metastases are decreased in size since 10/18/2023. 2. A metastasis along the left parietal lobe is increased in size. 3. There are apparent new metastases present in the left parietal lobe. 4. The presumed right frontal meningioma is stable since 05/29/2023. Narrative 01/14/2024 9:09 AM CDT EXAM: MR BRAIN WITHOUT AND WITH IV CONTRAST FINDINGS: MRI brain without and with intravenous gadolinium 01/14/2024. 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 Stereotactic radiosurgery 10/25/2023. Immunotherapy. Comparison 10/18/2023. Numerous intracranial metastases are decreased in size since 10/18/2023. Vasogenic edema surrounding the medial right parietal metastasis may be slightly increased, presumably on a posttreatment basis. A focus along the superficial left parietal lobe (se 16/im 114) appears increased in size since 10/18/2023. There is a new punctate focus of enhancement suspicious for metastasis along the more medial left parietal lobe (se 16/im 115). There is an additional new focus of gadolinium enhancement along the left parietal lobe (se 16/im 107). The presumed right frontal meningioma with underlying hyperostosis is stable in size since 05/29/2023. The brain otherwise has stable morphologic and signal characteristics. Procedure Note Segun Swartz M.D. 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 Stereotactic radiosurgery10/25/2023. Immunotherapy. Comparison 10/18/2023. Numerous intracranial metastases are decreased in size since 10/18/2023.Vasogenic edema surrounding the medial right parietal metastasis may beslightly increased, presumably on a posttreatment basis. A focus along thesuperficial left parietal lobe (se 16/im 114) appears increased in size since 10/18/2023. There is a newpunctate focus of enhancement suspicious for metastasis along the moremedial left parietal lobe (se 16/im 115). There is an additional new focusof gadolinium enhancement along the left parietal lobe (se 16/im 107). The presumed right frontal meningioma with underlying hyperostosis isstable in size since 05/29/2023. The brain otherwise has stable morphologic and signal characteristics. IMPRESSION: 1. Multiple intracranial metastases are decreased in size since10/18/2023. 2. A metastasis along the left parietal lobe is increased in size. 3. There are apparent new metastases present in the left parietal lobe. 4. The presumed right frontal meningioma is stable since 05/29/2023. Zhane Granados APRN, C.N.P. IMG MRI P ROCEDURES * T3 (Triiodothyronine), Total, Serum (12/26/2023 7:18 AM CDT) T3 (Triiodothyroni ne), Total, S 108 80 - 200 ng/dL 12/26/2023 8:49 AM CDT DTL Blood 12/26/2023 7:18 AM CDT 12/26/2023 7:45 AM CDT Pérez Zuniga M.D., Ph.D. LAB BLOO D NON ADD-ON [facility] [address] [place] [address], [facility] DTL [facility] [address] [place] [address] * PET CT Skull to Thigh FDG (11/25/2023 3:40 PM CDT) Anatomical Region Laterality Modality Body, Nuclear Medicine PET R ST LOS, PET ARZ LOS, Nuclear Medicine PET FLA LOS, Nuclear Medicine N/A Positron Emission Tomography (PET), Positron Emission Tomography (PET) Impressions 11/25/2023 6:38 PM CDT 1. Recurrent intensely FDG avid osseous metastases. 2. Multifocal FDG uptake along the periphery of the left adnexal cystic lesion is also suspicious for recurrent disease. 3. Mildly FDG avid left chest wall lesion is indeterminant, correlate with direct visual inspection. 4. Intracranial disease is better evaluated on recent MR brain. Narrative 11/25/2023 6:38 PM CDT EXAM: ??PET CT SKULL TO THIGH FDG Serum glucose at time of F-18 FDG injection was 101 mg/dL. Patient followed standard dietary/fasting requirements for this exam. RADIOPHARMACEUTICAL/MEDS: Route: intravenous fludeoxyglucose F 18 injection [facility] (FDG F-18),9.9 millicurie TECHNIQUE: ??F-18 FDG PET/CT scan was performed from the vertex through the upper thighs with low dose, non-contrast, free-breathing CT images for attenuation correction and anatomic localization (AC/AL), with imaging beginning at approximately 60 minutes after radiotracer injection. ? COMPARISON: ??PET/CT 08/19/2023 and outside PET/CT 05/15/2023. MR brain 10/18/2023. INDICATION: ??Metastatic melanoma. Prior systemic therapy and brain radiation. Subsequent treatment strategy. The patient reports no recent vaccinations. FINDINGS: ??Recurrent intensely FDG avid osseous lesions involving the left humerus, spine, pelvis, and bilateral femurs. Incompletely visualized intensely FDG avid lesion involving the right tibia. The most FDG avid lesion is located in the proximal left humerus with an SUV max of 13.2 (image 86). Mild FDG avid dermal thickening of the left lateral chest wall (image 122). No suspicious FDG avid lymphadenopathy. Left adnexal cystic lesion is relatively stable or decreased in size since prior PET/CT 08/19/2023, however there recurrent multifocal peripheral FDG uptake (image 256). Physiologic FDG activity within the endometrium. Prominent FDG activity in the palatine tonsils may be inflammatory/reactive. Small upper cervical lymph nodes with low-level FDG uptake are likely reactive. Borderline FDG uptake in the spleen. Significant incidental CT findings: Stable tiny pulmonary nodules. Stable hypoattenuating hepatic lesion, probable cyst or hemangioma. Stable mixed lucent and lytic lesions including the pelvis and spine which may represent treated sites of disease. Procedure Note Gabriela Gutierrez M.D. - 11/25/2023 EXAM: PET CT SKULL TO THIGH FDG Serum glucose at time of F-18 FDG injection was 101 mg/dL. Patientfollowed standard dietary/fasting requirements for this exam. RADIOPHARMACEUTICAL/MEDS: Route: intravenous fludeoxyglucose F 18 injection [facility] (FDG F-18),9.9 millicurie TECHNIQUE: F-18 FDG PET/CT scan was performed from the vertex through theupper thighs with low dose, non-contrast, free-breathing CT images forattenuation correction and anatomic localization (AC/AL), with imagingbeginning at approximately 60 minutes after radiotracer injection. COMPARISON: PET/CT 08/19/2023 and outside PET/CT 05/15/2023. MR brain10/18/2023. INDICATION: Metastatic melanoma. Prior systemic therapy and brainradiation. Subsequent treatment strategy. The patient reports no recent vaccinations. FINDINGS: Recurrent intensely FDG avid osseous lesions involving the lefthumerus, spine, pelvis, and bilateral femurs. Incompletely visualizedintensely FDG avid lesion involving the right tibia. The most FDG avidlesion is located in the proximal left humerus with an SUV max of 13.2 (image 86). Mild FDG avid dermal thickening of the left lateral chest wall (). No suspicious FDG avid lymphadenopathy. Left adnexal cystic lesion is relatively stable or decreased in size sinceprior PET/CT 08/19/2023, however there recurrent multifocal peripheral FDGuptake (image 256). Physiologic FDG activity within the endometrium. Prominent FDG activity in the palatine tonsils may beinflammatory/reactive. Small upper cervical lymph nodes with low-level FDGuptake are likely reactive. Borderline FDG uptake in the spleen. Significant incidental CT findings: Stable tiny pulmonary nodules. Stablehypoattenuating hepatic lesion, probable cyst or hemangioma. Stable mixedlucent and lytic lesions including the pelvis and spine which mayrepresent treated sites of disease. IMPRESSION: 1. Recurrent intensely FDG avid osseous metastases. 2. Multifocal FDG uptake along the periphery of the left adnexal cysticlesion is also suspicious for recurrent disease. 3. Mildly FDG avid left chest wall lesion is indeterminant, correlate withdirect visual inspection. 4. Intracranial disease is better evaluated on recent MR brain. Pérez Zuniga M.D., Ph.D. IMG NM P ROCEDURES from Last 3 Months Additional Health Concerns Infection Onset Date Last Indicated Protective Environment 06/04/2023 3 Advance Directives For more information, please contact: [phone] * Full Code (Latest Code Status on File) Date Activated Date Inactivated Comments 08/09/2023 5:52 AM 08/09/2023 5:43 PM Question Answer Comments Full Code: Discussed Care Teams Police Commanding Officer Relationship Specialty Start Date End Date Elsewhere, Pcp PCP - General Family Medicine 06/17/23
--- OUTSIDE RECORDS SUMMARY | 2024-02-21 15:04 | XMS_ITS | Encounter Summary ---
Author Organization [facility] Address [address] [place] [address] Care Team Providers Care Podiatric Aide Name Role Phone Ondina Chávez MD Primary Care Provider Max Lee MD Unavailable [phone] Igor Myers MD Unavailable UnavailDonna Forde RN Unavailable Unavailable Igor Myers MD Unavailable Unavaila Shiva Huff MD Unavailable [phone] Encounter Details Date Type Department Care Team (Late st Contact Info) Description 05/24/2023 [facility] [facility] [address] 4[address] [place] [address] Shiva Kruger MD [address] [place] [address] Social History Tobacco Use Types [...] not send urgent or symptomatic messages through [employer]. I will contact scheduling to arrange or make changes in my appointments. Patient will contact clinic and RNCC as needed ongoing. documented as of this encounter Visit Diagnoses Not on filedocumented in this encounter Care Teams Podiatric Aide Relationship Specialty Start Date End Date nOdina Chávez MD [facility] [address] [place] [address] PCP - General Family Medicine 05/07/23 Max Lee MD [address] [place] [address] Hematology & Oncology 05/17/23 Igor Myers MD Hematology & Oncology 05/20/23 Donna Ang RN Specialty Price Checker Hematology & Oncology 05/31/23 Igor Myers MD Assigned Cancer Care Provider 06/01/23 Shiva Kruger MD [facility] [place] [address] Assigned Musculoskeletal Provider 05/18/23 documented as of this encounter
--- OUTSIDE RECORDS SUMMARY | 2024-02-21 15:04 | XMS_ITS | Encounter Summary ---
Author Organization [place] Address [address] [place] [address] Care Team Providers Care Immunologist Name Role Phone Ondina Chávez MD Primary Care Provider Max Lee MD Unavailable [phone] Zuleika Rogers MD Unavailable [phone] Igor Myers MD Unavailable Unavaila Donna Hunt RN Unavailable Unavailable Igor Myers MD Unavailable Unavaila Shiva Huff MD Unavailable [phone] Encounter Details Date Type Department Care Team (Late st Contact Info) Description 05/14/2023 [facility] [address] [place] [phone] Shiva Kruger MD [address] [place], [place] [id number] Social History Tobacco Use Types Packs/Day Years [...] on filedocumented in this encounter Care Teams Immunologist Relationship Specialty Start Date End Date Ondina Chávez MD [facility] [address] [place] [address] PCP - General Family Medicine 05/07/23 Max Lee MD [address] [place] [address] Hematology & Oncology 05/17/23 Zuleika Rogers MD [address] [place] [address] Radiation Oncology 05/17/23 05/20/23 Igor Myers MD Hematology & Oncology 05/20/23 Donna Ang, BEATRIZ Specialty Engineering Production Liaison Hematology & Oncology 05/31/23 Igor Myers MD Assigned Cancer Care Provider 06/01/23 Shiva Kruger MD [address] [place] [address] Assigned Musculoskeletal Provider 05/18/23 documented as of this encounter
--- OUTSIDE RECORDS SUMMARY | 2024-02-21 15:05 | XMS_ITS | Encounter Summary ---
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 [address] [place] [address] [facility] Region Referral ID Status Reason Start Date Expiration Date Visits Re quested Visits Authorized [id number] Closed 02/12/2024 02/11/2025 1 1 Encounter Details Date Type Department Care Team (Latest Contact Info) Description 02/14/2024 8:35 AM CDT - 02/14/2024 11:59 PM CDT Hospital Encounter Department of Radiology in [place], [place] [address] [place] [address] Tara López M.D. [address] [place] [address] Melanoma Trunk (HCC); Secondary Malignant Neoplasm Bone [...] Recorded In the past 12 months has [employer], [employer], oil, or water [employer] threatened to shut off services in your [...] living situation today? I have a [facility] place to live 07/10/2023 Sex and Gender Information Value Date Recorded Sex Assigned at Female 05/31/2023 8:26 AM WARDROBE CONSULTANT Gender Identity Female 05/31/2023 8:26 AM WARDROBE CONSULTANT Sexual Orientation Straight 05/31/2023 8: 26 AM WARDROBE CONSULTANT documented as of this encounter Medications at Time of Discharge Medication Sig Dispensed Refills Start Date End Date binimetinib (Mektovi) 15 mg tablet Take 3 tablets (45 mg total) by mouth 2 (two) times a day. 180 tablet 01/23/2024 cetirizine (ZyrTEC) 10 mg tablet Take 10 mg by mouth 2 (two) times a day. Taking for rash colchicine (Colcrys) 0.6 mg tablet Take 2 tablets (1.2 mg total) by mouth daily. 60 tablet 3 02/04/2024 06/03/2024 dexAMETHasone (Decadron) 1 mg tablet Take 2 tablets (2 mg total) by mouth every 12 (twelve) hours. 60 tablet 3 02/04/2024 06/03/2024 encorafenib (Braftovi) 75 mg capsule Take 6 capsules (450 mg total) by mouth daily. 180 capsule 01/23/2024 hydrOXYzine (ATARAX) 25 mg tablet Take 25-50 mg by mouth at bedtime as needed. 05/31/2023 levothyroxine 100 mcg tablet Take 1 tablet (100 mcg total) by mouth daily before morning meal. 30 tablet 1 01/14/2024 naloxone (NARCAN) 4 mg/actuation nasal spray Administer 1 spray (4 mg total) into one nostril as needed for reversal. Use 1 spray in 1 nostril. Repeat with second device in other nostril after 2-3 minutes if no or minimal response. 2 each 06/21/2023 omeprazole (PriLOSEC OTC) [address] tablet Take 20 mg by mouth every morning before breakfast. 05/08/2023 polyethylene glycol (MIRALAX) 17 gram powder packet Take 17 g by mouth as needed for constipation. Dissolve each 17 g dose in 240 mLs (8 ounces) of beverage. prochlorperazine (Compazine) 10 mg tablet Take 1 tablet (10 mg total) by mouth daily. 30 tablet 02/04/2024 03/05/2024 sennosides (senna) 8.6 mg tablet Take 8.6 mg by mouth daily. documented as of this encounter Plan of Treatment Upcoming Encounters Date Type Department Care Team (Late st Contact Info) Description 02/25/2024 10:00 AM CDT Clinical Communication Virtual Review in [address] [phone] 02/27/2024 7:30 AM CDT Appointment Department of Radiology, [address] [phone] Zhane Granados APRN, C.N.P. [address] [place] [phone] 02/27/2024 8:45 AM CDT Clinical Support Department of Palliative Care in [address] [phone] Bereket Johnson APRN, C.N.P., D.N.P. [address] [place] [phone] 02/27/2024 9:45 AM CDT Clinical Support Department of Palliative Care in [address] [phone] Marija Olivas APRN, C.N.P., M.S.N. [address] [place] [phone] 02/27/2024 11:00 AM CDT Lab Department of Laboratory Medicine and Pathology, [facility] in [address] [phone] Zhane Granados APRN, C.N.P. [address] [place] [phone] 02/27/2024 1:00 PM CDT Office Visit Department of Oncology in [place], [place] [address] [place] [phone] Pérez Zuniga M.D., Ph.D. [address] [place] [phone] 02/27/2024 1:45 PM CDT Infusion Department of Oncology in [place], [place] [address] [place] [phone] Zhane Granados APRN, C.N.P. [address] [place] [phone] 03/17/2024 7:00 AM CDT Clinical Communication Virtual Review in [place], [place] 200 [place] [address] 03/19/2024 10:45 AM CDT Clinical Support Department of Palliative Care in [address] [phone] Marija Olivas APRN, C.N.P., M.S.N. [address] [place] [phone] 03/19/2024 11:30 AM CDT Office Visit Department of Palliative Care in [place], [place] [address] [place] [phone] Valentine Kelsey M.D., M.S. [address] [place] [phone] 03/19/2024 11:40 AM CDT Lab Department of Laboratory Medicine and Pathology, [facility], in [address] [phone] Zhane Granados APRN, C.N.P. [address] [place] [phone] 03/19/2024 1:40 PM CDT Office Visit Department of Oncology in [address] [phone] Pérez Zuniga M.D., Ph.D. [address] [place] [phone] 03/19/2024 2:45 PM CDT Infusion Department of Oncology in [address] [phone] Zhane Granados APRN, C.N.P. [address] [place] [phone] 03/24/2024 3:00 PM CDT Clinical Communication Virtual Review in [place], [place] 200 [place] [address] 03/26/2024 7:45 AM CDT Appointment Department of Radiology, [facility], in [address] [address] Zhane Granados APRN, C.N.P. [address] [place] [phone] 03/26/2024 3:20 PM CDT Office Visit Department of Oncology in [address] [phone] Pérez Zuniga M.D., Ph.D. 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 Given 02/14/2024 9:37 AM CDT 9 mL sodium chloride 0.9 % injection 1-250 mL 1-250 mL, intravenous, Once in imaging, line care, Starting on Sat02/14/24 at 0853, For 1 dose Given 02/14/2024 9:38 AM CDT 20 mL documented in this encounter Additional Health Concerns Infection Onset Date Last Indicated Resolved Time Protective Environment 06/04/2023 06/04/2023 documented as of this encounter Care Teams Collar Cutter Relationship Specialty Start Date End Date Elsewhere, Pcp PCP - General Family Medicine 06/17/23 documented as of this encounter
--- OUTSIDE RECORDS SUMMARY | 2024-02-21 15:05 | XMS_ITS | Encounter Summary ---
Author Organization [facility] Address [address] [place] [address] Care Team Providers Care Cable Ferryboat Operator Name Role Phone Elsewhere, Pcp Primary Care Provider Unavailabl e Encounter Details Date Type Department Care Team (Late st Contact Info) Description 02/20/2024 Clinical Communication Department of Radiation Oncology in [place], [place] [address] [place] [phone] Tara López M.D. [address] [place] [phone] Social History Tobacco Use Types Packs/Day Years [...] your living situation today? I have a [facility] place to live 07/10/2023 Sex and Gender Information Value Date Recorded Sex Assigned at Female 05/31/2023 8:26 AM REAL ESTATE INVESTOR Gender Identity Female 05/31/2023 8:26 AM REAL ESTATE INVESTOR Sexual Orientation Straight 05/31/2023 8: 26 AM REAL ESTATE INVESTOR documented as of this encounter Miscellaneous Notes * Telephone Encounter - Tara López M.D. - 02/20/2024 12:04 PM CDT I called the patient and edited my consult note from 02/11/2024 to change from T9 to T11. 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 I had incorrectly written T9 in the consult note. She understood and her questions were answered. She will have her SBRT to T11 and her right ischium tomorrow with Dr. Vazquez. documented in this encounter Plan of Treatment Upcoming Encounters Date Type Department Care Team (Late st Contact Info) Description 02/25/2024 10:00 AM CDT Clinical Communication Virtual Review in [place], [place] 200 [place] [address] 02/27/2024 7:30 AM CDT Appointment Department of Radiology, [facility] in [place], [place] [address] [place] [phone] Zhane Granados APRN, C.N.P. [address] [place] [phone] 02/27/2024 8:45 AM CDT Clinical Support Department of Palliative Care in [place], [place] [address] [place] [phone] Bereket Johnson APRN, C.N.P., D.N.P. [address] [place] [phone] 02/27/2024 9:45 AM CDT Clinical Support Department of Palliative Care in [address] [phone] Marija Olivas APRN, C.N.P., M.S.N. [address] [place] [phone] 02/27/2024 11:00 AM CDT Lab Department of Laboratory Medicine and Pathology, [facility] in [place], [place] [address] [place] [phone] Zhane Granados APRN, C.N.P. [address] [place] [phone] 02/27/2024 1:00 PM CDT Office Visit Department of Oncology in [address] [phone] Pérez Zuniga M.D., Ph.D. [address] [place] [phone] 02/27/2024 1:45 PM CDT Infusion Department of Oncology in [place], [place] [address] [place] [phone] Zhane Granados APRN, C.N.P. [address] [place] [phone] 03/17/2024 7:00 AM CDT Clinical Communication Virtual Review in [place], [place] [address] [place] [address] 03/19/2024 10:45 AM CDT Clinical Support Department of Palliative Care in [place], [place] [address] [place] [phone] Marija Olivas APRN, C.N.P., M.S.N. [address] [place] [phone] 03/19/2024 11:30 AM CDT Office Visit Department of Palliative Care in [place], [place] [address] [place] [phone] Valentine eKlsey M.D., M.S. [address] [place] [phone] 03/19/2024 11:40 AM CDT Lab Department of Laboratory Medicine and Pathology, [facility], in [place], [place] [address] [place] [phone] Zhane Granados APRN, C.N.P. [address] [place] [phone] 03/19/2024 1:40 PM CDT Office Visit Department of Oncology in [place], [place] [address] [place] [phone] Pérez Zuniga M.D., Ph.D. [address] [place] [phone] 03/19/2024 2:45 PM CDT Infusion Department of Oncology in [place], [place] [address] [place] [phone] Zhane Granados APRN, C.N.P. [address] [place] [phone] 03/24/2024 3:00 PM CDT Clinical Communication Virtual Review in [place], [place] [address] [place] [address] 03/26/2024 7:45 AM CDT Appointment Department of Radiology, [facility], in [place], [place] [address] [place] [phone] Zhane Granados APRN, C.N.P. [address] [place] [phone] 03/26/2024 3:20 PM CDT Office Visit Department of Oncology in [place], [place] [address] [place] [phone] Pérez Zuniga M.D., Ph.D. [address] [place] [phone] documented as of this encounter Visit Diagnoses Not on filedocumented in this encounter Additional Health Concerns Infection Onset Date Last Indicated Resolved Time Protective Environment 06/04/2023 06/04/2023 documented as of this encounter Care Teams Cable Ferryboat Operator Relationship Specialty Start Date End Date Elsewhere, Pcp PCP - General Family Medicine 06/17/23 documented as of this encounter
--- OUTSIDE RECORDS SUMMARY | 2024-02-21 15:05 | XMS_ITS | Encounter Summary ---
Author Organization [facility] Address [address] [place] [address] Care Team Providers Care Voicer Name Role Phone Elsewhere, Pcp Primary Care Provider Unavailabl e Reason for Referral * Radiation Therapy (Routine) - Authorized Specialty Diagnoses / Procedures Referred By Contac t Referred To Contact Diagnoses Secondary Malignant Neoplasm Bone (HCC) Procedures Management Visit Tara López M.D. [address] [place] [address] [facility] Region Referral ID Status Reason Start Date Expiration Date V isits Requested Visits Authorized [id number] Authorized 02/12/2024 02/11/2025 10 10 Reason for Visit * Radiation Therapy (Routine) - Authorized Specialty Diagnoses / Procedures Referred By Contsweetie feliciano Referred To Contact Diagnoses Secondary Malignant Neoplasm Bone (HCC) Procedures Management Visit Tara López M.D. [address] [place] [address] [facility] Region Referral ID Status Reason Start Date Expiration Date V isits Requested Visits Authorized [id number] Authorized 02/12/2024 02/11/2025 10 10 Encounter Details Date Type Department Care Team (Latest Contact Info) Description 02/21/2024 12:45 PM CDT Hospital Encounter Department of Radiation Oncology in [place], [place] [address] [place] [phone] Javier Vazquez M.D. [address] [place] [phone] Secondary Malignant Neoplasm Bone (HCC) Social History Tobacco Use Types Packs/Day Years Used Date Smoking Tobacco: Never Passive Smoke Exposure: Never Smokeless Tobacco: Never Alcohol Use Standard Drinks/Week Comments Not Currently 0 (1 standard drink = 0.6 oz pur e alcohol) Occasional [facility] Utilities Answer Date Recorded In the past 12 months has e [employer], gas, oil, or water [employer] threatened to shut off services in your [...] your living situation today? I have a [place] place to live 07/10/2023 Sex and Gender Information Value Date Recorded Sex Assigned at Female 05/31/2023 8:26 AM STAFF NUCLEAR MEDICINE TECHNOLOGIST Gender Identity Female 05/31/2023 8:26 AM STAFF NUCLEAR MEDICINE TECHNOLOGIST Sexual Orientation Straight 05/31/2023 8: 26 AM STAFF NUCLEAR MEDICINE TECHNOLOGIST documented as of this encounter Last Filed Vital Signs Vital Sign Reading Time Taken Comments Blood Pressure 147/85 02/21/2024 2:07 PM CDT Pulse 91 02/21/2024 2:07 PM CDT Temperature 36.6 ??C (97.9 ??F) 02/21/2024 2:07 PM CD T Respiratory Rate - - Oxygen Saturation - - Inhaled Oxygen Concentration - - Weight 88.6 kg (195 lb 5.2 oz) 02/21/2024 2:07 P M CDT Height - - Body Mass Index 35.18 02/11/2024 3:29 PM CDT documented in this encounter Plan of Treatment Upcoming Encounters Date Type Department Care Team (Late st Contact Info) Description 02/25/2024 10:00 AM CDT Clinical Communication Virtual Review in [place], [place] 200 [place] [address] 02/27/2024 7:30 AM CDT Appointment Department of Radiology, [facility] in [address] [phone] Zhane Granados APRN, C.N.P. [address] [place] [phone] 02/27/2024 8:45 AM CDT Clinical Support Department of Palliative Care in [place], [place] [address] [place] [phone] Bereket Johnson APRN, C.N.P., D.N.P. [address] [place] [phone] 02/27/2024 9:45 AM CDT Clinical Support Department of Palliative Care in [place], [place] [address] [place] [phone] Marija Olivas APRN, C.NSimi., M.S.N. [address] [place] [phone] 02/27/2024 11:00 AM CDT Lab Department of Laboratory Medicine and Pathology, [facility], in [place], [place] [address] [place] [phone] Zhane Granados APRN, C.N.P. [address] [place] [phone] 02/27/2024 1:00 PM CDT Office Visit Department of Oncology in [address] [phone] Pérez Zuniga M.D., Ph.D. [address] [place] [phone] 02/27/2024 1:45 PM CDT Infusion Department of Oncology in [place], [place] [address] [place] [phone] Zhane Granados APRN, C.N.P. [address] [place] [phone] 03/17/2024 7:00 AM CDT Clinical Communication Virtual Review in [place], [place] [address] [place] [address] 03/19/2024 10:45 AM CDT Clinical Support Department of Palliative Care in [address] [phone] Marija Olivas APRN, C.NSimi., M.S.N. [address] [place] [phone] 03/19/2024 11:30 AM CDT Office Visit Department of Palliative Care in [place], [place] [address] [place] [phone] Valentine Kelsey M.D., M.S. [address] [place] [phone] 03/19/2024 11:40 AM CDT Lab Department of Laboratory Medicine and Pathology, [facility], in [place], [place] [address] [place] [phone] Zhane Granados APRN, C.N.P. [address] [place] [phone] 03/19/2024 1:40 PM CDT Office Visit Department of Oncology in [place], [place] [address] [place] [phone] Pérez Zuniga M.D., Ph.D. [address] [place] [phone] 03/19/2024 2:45 PM CDT Infusion Department of Oncology in [place], [place] [address] [place] [phone] Zhane Granados APRN, C.N.P. [address] [place] [phone] 03/24/2024 3:00 PM CDT Clinical Communication Virtual Review in [place], [place] 200 [place] [address] 03/26/2024 7:45 AM CDT Appointment Department of Radiology, [facility], in [place], [place] [address] [place] [phone] Zhane Granados APRN, C.N.P. [address] [place] [phone] 03/26/2024 3:20 PM CDT Office Visit Department of Oncology in [place], [place] [address] [place] [address] [place] [phone] Pérez Zuniga M.D., Ph.D. [address] [place] [address] Scheduled Orders Name Type Priority Associated Diagnoses Orde r Schedule Management Visit Radiation Oncology Routine Secondary Malignant Neoplasm Bone (HCC) Once for 1 Occurrences starting 02/21/2024 until 02/21/2024 documented as of this encounter Visit Diagnoses Diagnosis Secondary Malignant Neoplasm Bone (HCC) documented in this encounter Additional Health Concerns Infection Onset Date Last Indicated Resolved Time Protective Environment 06/04/2023 06/04/2023 documented as of this encounter Care Teams Voicer Relationship Specialty Start Date End Date Elsewhere, Pcp PCP - General Family Medicine 06/17/23 documented as of this encounter
--- OUTSIDE RECORDS SUMMARY | 2024-02-21 15:05 | XMS_ITS | Encounter Summary ---
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 [address] [place] [phone] [facility] Referral ID Status Reason Start Date Expiration Date Visits Re quested Visits Authorized [id number] Closed 01/14/2024 01/13/2025 1 1 Encounter Details Date Type Department Care Team (Latest Contact Info) Description 02/11/2024 9:46 AM CDT - 02/11/2024 11:59 PM CDT Hospital Encounter Department of Radiology, [facility], in [place], [place] [address] [place] [address] Zhane Granados APRN, C.N.P. [address] [place] [phone] Melanoma Trunk (HCC); Secondary Malignant Neoplasm Brain (HCC); Secondary Malignant Neoplasm Bone (HCC) Discharge Disposition: Home or Self Care Social History Tobacco Use Types Packs/Day Years Used Date Smoking Tobacco: Never Passive Smoke Exposure: Never Smokeless Tobacco: Never Alcohol Use Standard Drinks/Week Comments Not Currently 0 (1 standard drink = 0.6 oz pur e alcohol) Occasional [facility] Utilities Answer Date Recorded In the past 12 months has [employer], gas, oil, or water [employer] threatened to shut off services in your [...] your living situation today? 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 [address] [place] [phone] 02/27/2024 8:45 AM CDT Clinical Support Department of Palliative Care in [address] [phone] Bereket Johnson APRN, C.N.P., D.N.P. [address] [place] [phone] 02/27/2024 9:45 AM CDT Clinical Support Department of Palliative Care in [address] [phone] Marija Olivas APRN, C.N.P., M.S.N. [address] [place] [phone] 02/27/2024 11:00 AM CDT Lab Department of Laboratory Medicine and Pathology, [facility], in [place], [place] [address] [place] [phone] Zhane Granados APRN, C.N.P. [address] [place] [phone] 02/27/2024 1:00 PM CDT Office Visit Department of Oncology in [place], [place] [address] [place] [phone] Pérez Zuniga M.D., Ph.D. [address] [place] [phone] 02/27/2024 1:45 PM CDT Infusion Department of Oncology in [place], [place] [address] [place] [phone] Zhane Granados APRN, C.N.P. [address] [place] [phone] 03/17/2024 7:00 AM CDT Clinical Communication Virtual Review in [place], [place] [address] [place] [address] 03/19/2024 10:45 AM CDT Clinical Support Department of Palliative Care in [address] [phone] Marija Olivas APRN, C.N.P., M.S.N. [address] [place] [phone] 03/19/2024 11:30 AM CDT Office Visit Department of Palliative Care in [place], [place] [address] [place] [phone] Valentine Kelsey M.D., M.S. [address] [place] [phone] 03/19/2024 11:40 AM CDT Lab Department of Laboratory Medicine and Pathology, [facility], in [place], [place] [address] [place] [phone] Zhane Granados APRN, C.N.P. [address] [place] [phone] 03/19/2024 1:40 PM CDT Office Visit Department of Oncology in [place], [place] [address] [place] [phone] Pérez Zuniga M.D., Ph.D. [address] [place] [phone] 03/19/2024 2:45 PM CDT Infusion Department of Oncology in [place], [place] [address] [place] [phone] Zhane Granados APRN, C.N.P. [address] [place] [phone] 03/24/2024 3:00 PM CDT Clinical Communication Virtual Review in [place], [place] [address] [place] [phone] 03/26/2024 7:45 AM CDT Appointment Department of Radiology, [facility], in [place], [place] [address] [place] [phone] Zhane Granados APRN, C.N.P. [address] [place] [phone] 03/26/2024 3:20 PM CDT Office Visit Department of Oncology in [address] [phone] Pérez Zuniga M.D., Ph.D. 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 Hepatic cyst. Procedure Note Chas Dorman D - 02/12/2024 REVISED REPORT: EXAM: PET CT WHOLE BODY FDG Serum glucose at time of F-18 FDG injection was 82 mg/dL. Patient followedstandard dietary/fasting requirements for this exam. 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 Metastases within the bilateral tibias were previously off [id number] now demonstrating SUV max values of 9.7 [...] an SUV max of 1.4 (axial fused [id number]; CT image 142) and an 8 mm [...] uptake of the thyroid gland concerning forthyroiditis. Zhane Granados APRN C.N.P. 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) documented in this encounter Administered Medications Inactive Administered Medications - up to 3 most recent administrations Medication Order MAR Action Action Date Dose Rate Site fludeoxyglucose F 18 injection SKILLED NURSING (FDG F-18) 4.5-16.5 millicurie, intravenous, Once, On 02/11/24 at 1045, For 1 dose, Imaging Protocol Orders Given 02/11/2024 10:20 AM CDT 9.95 millicuries documented in this encounter Additional Health Concerns Infection Onset Date Last Indicated Resolved Time Protective Environment 06/04/2023 06/04/2023 documented as of this encounter Care Teams [employer] Relationship Specialty Start Date End Date Elsewhere, Pcp PCP - General Family Medicine 06/17/23 documented as of this encounter
--- OUTSIDE RECORDS SUMMARY | 2024-02-21 15:05 | XMS_ITS | Referral Summary ---
Author Organization [facility] Address [address] [place] [address] Care Team Providers Care Guide Excursion Name Role Phone Elsewhere, Pcp Primary Care Provider Unavailabl e Source Comments Patient records contain information from all sites at [facility]. For routine questions regarding patient records, call [phone] during business hours, M-F 8:00 AM - 5:00 PM Central Time. Record requests for emergency care only can be directed to [phone] at any time.[facility] Encounters Date Type Department Care Team Description 02/21/2024 12:45 PM CDT Hospital Encounter Department of Radiation Oncology in [address] [address] Javier Vazquez M.D. Secondary Malignant Neoplasm Bone (HCC) 02/21/2024 12:45 PM CDT Hospital Encounter Department of Radiation Oncology in [address] [address] Tara López M.D. 02/20/2024 Clinical Communication Department of Radiation Oncology in [address] [address] Tara López M.D. 02/20/2024 Orders Only Department of Oncology in [place], [place] [address] [place] [address] Zhane Granados APRN, C.N.P. Melanoma Trunk (HCC) (Primary Dx); Secondary Malignant Neoplasm Bone (HCC) 02/18/2024 Clinical Communication Department of Oncology in [place], [place] [address] [place] [address] Mona Perez, RVince 02/18/2024 Refill Department of Oncology in [place], [place] [address] [place] [address] Pérez Zuniga M.D., Ph.D. Med Refill (Mektovi, braftovi ) 02/14/2024 8:35 AM CDT - 02/14/2024 11:59 PM CDT Hospital Encounter Department of Radiology in [place], [place] [address], [place] [address] Tara López M.D. Melanoma Trunk (HCC); Secondary Malignant Neoplasm Bone (HCC) Discharge Disposition: Home or Self Care 02/12/2024 2:59 PM CDT - 02/12/2024 4:18 PM CDT Hospital Encounter Department of Radiation Oncology in [address] [address] Tara López M.D. Secondary Malignant Neoplasm Bone (HCC) 02/12/2024 Orders Only Department of Radiation Oncology in [address] [address] Tara López M.D. Secondary Malignant Neoplasm Bone (HCC) (Primary Dx) 02/12/2024 2:30 PM CDT - 02/12/2024 2:58 PM CDT Hospital Encounter Department of Radiation Oncology in [address] [address] Tara López M.D. Secondary Malignant Neoplasm Bone (HCC) (Primary Dx); Melanoma Trunk (HCC) 02/12/2024 Orders Only Department of Oncology in [place], [place] [address] [place] [phone] Zhane Granados APRN, C.N.PSantosh Melanoma Trunk (HCC) (Primary Dx) 02/11/2024 9:46 AM CDT - 02/11/2024 11:59 PM CDT Hospital Encounter Department of Radiology, [facility], in [place], [place] [address] [place] [phone] Zhane Granados APRN, C.N.PSantosh Melanoma Trunk (HCC); Secondary Malignant Neoplasm Brain (HCC); Secondary Malignant Neoplasm Bone (HCC) Discharge Disposition: Home or Self Care 02/11/2024 3:40 PM CDT Office Visit Department of Oncology in [place], [place] [address] [place] [address] Zhane Granados APRN, C.N.PSantosh Melanoma Trunk (HCC) (Primary Dx); Secondary Malignant Neoplasm Bone (HCC); Secondary Malignant Neoplasm Brain (HCC) 02/04/2024 10:15 AM CDT Clinical Support Department of Palliative Care in [place], [place] [address] [place] [phone] Marija Olivas APRN C.N.P., M.S.N. Myriam Mayers, RHaider., [facility] 02/04/2024 2:15 PM CDT Infusion Department of Oncology in [place], [place] [address] [place] [phone] Zhane Granados APRN C.N.PSantosh Melanoma Trunk (HCC) (Primary Dx); Secondary Malignant Neoplasm Bone (HCC); Secondary Malignant Neoplasm Brain (HCC) 02/04/2024 1:00 PM CDT Office Visit Department of Oncology in [address] [address] Pérez Zuniga M.D., Ph.D. Melanoma Trunk (HCC); Secondary Malignant Neoplasm Bone (HCC); Secondary Malignant Neoplasm Brain (HCC) 01/30/2024 Clinical Communication Department of Oncology in [address] [address] Anahy Amezcua R.N., O.C.N. Labs Only 01/29/2024 3:00 PM CDT Telemedicine Department of Palliative Care in [address] [address] Valentine Kelsey M.D., M.S. Melanoma Trunk (HCC) (Primary Dx); Palliative Care; Secondary Malignant Neoplasm Brain (HCC) 01/28/2024 12:00 PM CDT Clinical Communication Virtual Review in [address] [address] Pre-visit Intake 01/23/2024 Refill Department of Oncology in [address] [address] Zhane Granados APRN, C.N.P. Med Refill 01/15/2024 10:45 AM CDT Clinical Support Department of Palliative Care in [address] [address] Radha Sheldon M.D. Claire Woodard R.N., PN Pain Cancer Associated (Primary Dx); Palliative Care; Insomnia 01/15/2024 8:20 AM CDT - 01/15/2024 11:59 PM CDT Hospital Encounter Department of Cardiovascular Diseases in [address] [address] Zhane Granados APRN, C.N.P. Melanoma Trunk (HCC); Other Electronic Imaging System Operator Current Drug Therapy Discharge Disposition: Home or Self Care 01/15/2024 2:30 PM CDT Infusion Department of Oncology in [address] [address] Pérez Zuniga M.D., Ph.D. Melanoma Trunk (HCC) (Primary Dx); Secondary Malignant Neoplasm Brain (HCC); Secondary Malignant Neoplasm Bone (HCC) 01/14/2024 Clinical Communication Department of Oncology in [address] [address] Zhane Granados APRN, C.N.P. 01/14/2024 6:05 AM CDT - 01/14/2024 11:59 PM CDT Hospital Encounter Department of Radiology, [facility] in [place], [place] [address] [place] [phone] Zhane Granados APRN, C.N.PSantosh Melanoma Trunk (HCC); Secondary Malignant Neoplasm Brain (HCC) Discharge Disposition: Home or Self Care 01/14/2024 2:20 PM CDT Office Visit Department of Oncology in [place], [place] [address] [place] [phone] Zhane Granados APRN, Harsha.N.P. Secondary Malignant Neoplasm Bone (HCC) (Primary Dx); Melanoma Trunk (HCC); Secondary Malignant Neoplasm Brain (HCC) 01/13/2024 12:45 PM CDT Clinical Communication Virtual Review in [place], [place] [address] [place] [address] Pre-visit Intake 01/08/2024 Clinical Communication Department of Oncology in [address] [address] Anahy Amezcua R.N., O.C.N. Labs Only 01/02/2024 Orders Only Pharmacy Prior Auth [phone] Zhane Bose 01/02/2024 2:40 PM CDT Clinical Communication Department of Oncology in [place], [place] [address] [place] [phone] Zhane Granados APRN, C.N.P. Mona Perez, R.N. 01/01/2024 Clinical Communication Department of Oncology in [place], [place] [address] [place] [phone] Anahy Amezcua R.N., O.C.N. 12/31/23 Labs 12/28/2023 Refill Department of Oncology in [address] [address] Pérez Zuniga M.D., Ph.D. Med Refill (colchicine) 12/26/2023 Orders Only Department of Palliative Care in [place], [place] [address] [place] [address] Radha Sheldon M.D. 12/26/2023 10:15 AM CDT Clinical Support Department of Palliative Care in [address] [address] Bereket Johnson APRN, C.N.P., D.N.P. Yvette Clemens R.N., [facility] Palliative Care (Primary Dx) 12/26/2023 11:30 AM CDT Office Visit Department of Palliative Care in [address] [address] Valentine Kelsey M.D., M.S. Radha Sheldon M.D. Melanoma Trunk (HCC) (Primary Dx); Secondary Malignant Neoplasm Brain (HCC); Secondary Malignant Neoplasm Bone (HCC); Nausea; Palliative Care 12/26/2023 12:15 PM CDT Infusion Department of Oncology in [address] [address] Pérez Zuniga M.D., Ph.D. Melanoma Trunk (HCC) (Primary Dx); Secondary Malignant Neoplasm Brain (HCC); Secondary Malignant Neoplasm Bone (HCC) 12/26/2023 9:20 AM CDT Office Visit Department of Oncology in [address] [address] Zhane Granados APRN, C.N.P. Melanoma Trunk (HCC); Secondary Malignant Neoplasm Brain (HCC); Secondary Malignant Neoplasm Bone (HCC) 12/23/2023 Refill Department of Palliative Care in [address] [address] Valentine Kelsey M.D., M.S. Med Refill 12/23/2023 12:45 PM CDT Clinical Communication Virtual Review in [address] [address] Pre-visit Intake 12/19/2023 Clinical Communication Department of Oncology in [address] [address] Anahy Amezcua R.N., O.C.N. Labs Only 12/17/2023 Clinical Communication Department of Oncology in [place], [place] [address] [place] [address] Anahy Amezcua R.N., O.C.N. Rx refill - Colchicine; Rx refill - Dexamethasone 12/12/2023 9:58 AM CDT - 12/12/2023 11:59 PM CDT Hospital Encounter Department of Radiation Oncology in [address] [address] Tara López M.D. Discharge Disposition: Home or Self Care 12/11/2023 Documentation Department of Radiation Oncology in [address] [address] Tara López M.D. 12/11/2023 12:54 PM CDT - 12/11/2023 11:59 PM CDT Hospital Encounter Department of Radiation Oncology in [address] [address] Tara López M.D. Discharge Disposition: Home or Self Care 12/10/2023 10:16 AM CDT - 12/10/2023 2:58 PM CDT Hospital Encounter Department of Radiation Oncology in [address] [address] Tara López M.D. Melanoma Trunk (HCC); Secondary Malignant Neoplasm Bone (HCC) 12/10/2023 10:16 AM CDT - 12/10/2023 11:59 PM CDT Hospital Encounter Department of Radiation Oncology in [address] [address] Tara López M.D. Discharge Disposition: Home or Self Care 12/06/2023 Clinical Communication Department of Oncology in [place], [place] [address] [place] [address] Pérez Zuniga M.D., Ph.D. 12/06/2023 12:40 PM CDT - 12/06/2023 11:59 PM CDT Hospital Encounter Department of Radiation Oncology in [address] [address] Tara López M.D. Discharge Disposition: Home or Self Care 12/05/2023 Clinical Communication Department of Oncology in [address] [address] Anahy Amezcua R.N., O.C.N. 12/05/2023 1:00 PM CDT - 12/05/2023 3:27 PM CDT Hospital Encounter Department of Radiation Oncology in [address] [address] Tara López M.D. Melanoma Trunk (HCC); Secondary Malignant Neoplasm Bone (HCC) 12/05/2023 1:00 PM CDT - 12/05/2023 11:59 PM CDT Hospital Encounter Department of Radiation Oncology in [address] [address] Tara López M.D. Discharge Disposition: Home or Self Care 12/04/2023 12:56 PM CDT - 12/04/2023 11:59 PM CDT Hospital Encounter Department of Radiation Oncology in [address] [address] Tara López M.D. Discharge Disposition: Home or Self Care 12/03/2023 Clinical Communication Department of Palliative Care in [place], [place] [address] [place] [phone] Valentine Kelsey M.D., M.S. 11/29/2023 Clinical Communication Department of Oncology in [place], [place] [address] [place] [phone] Pérez Zuniga M.D., Ph.D. 11/29/2023 Refill Department of Oncology in [place], [place] [address] [place] [phone] Pérez Zuniga M.D., Ph.D. Med Refill (Colcrys ) 11/29/2023 2:40 PM CDT Office Visit Department of Dermatology in [place], [place] [address] [place] [phone] Anh Lee M.D. Nevi Multiple (Primary Dx); Melanoma Lower Limb Left (HCC); Screening Examination Skin Cancer; Angioma Graves; Keratosis Seborrheic; Rosacea Discharge Disposition: Home or Self Care 11/27/2023 9:00 AM CDT - 11/27/2023 12:49 PM CDT Hospital Encounter Department of Radiation Oncology in [address] [address] Tara López M.D. Melanoma Trunk (HCC); Secondary Malignant Neoplasm Bone (HCC) 11/27/2023 8:00 AM CDT - 11/27/2023 8:59 AM CDT Hospital Encounter Department of Radiation Oncology in [address] [address] Tara López M.D. Secondary Malignant Neoplasm Bone (HCC) (Primary Dx); Melanoma Trunk (HCC) 11/26/2023 Clinical Communication Department of Oncology in [address] [address] Anahy Amezcua, RHaider., O.C.N. Order Request 11/26/2023 Clinical Communication Department of Oncology in [place], [place] [address] [place] [address] Pérez Zuniga M.D., Ph.D. Appt Request; Reschedule 11/26/2023 1:45 PM CDT Infusion Department of Oncology in [place], [place] [address] [place] [phone] Pérez Zuniga M.D., Ph.D. Secondary Malignant Neoplasm Bone (HCC) (Primary Dx); Melanoma Trunk (HCC); Secondary Malignant Neoplasm Brain (HCC) 11/26/2023 Orders Only Department of Radiation Oncology in [place], [place] [address] [place] [phone] Morenita Martínez P.A.-C., M.S. Melanoma Trunk (HCC) (Primary Dx); Secondary Malignant Neoplasm Bone (HCC) 11/26/2023 Orders Only Department of Oncology in [place], [place] [address] [place] [address] Pérez Zuniga M.D., Ph.D. Melanoma Trunk (HCC) (Primary Dx); Secondary Malignant Neoplasm Brain (HCC); Secondary Malignant Neoplasm Bone (HCC) 11/26/2023 10:15 AM CDT Clinical Support Department of Palliative Care in [place], [place] [address] [place] [phone] Bereket Johnson APRN, C.NAurelia, D.N.P. Myriam Moody, R.N., [facility] Palliative Care 11/26/2023 11:30 AM CDT Office Visit Department of Palliative Care in [place], [place] [address] [place] [phone] Valentine Kelsey M.D., M.S. Melanoma Trunk (HCC) (Primary Dx); Secondary Malignant Neoplasm Brain (HCC); Pain Cancer Associated; Palliative Care 11/26/2023 1:00 PM CDT Office Visit Department of Oncology in [address] [address] Pérez Zuniga M.D., Ph.D. Secondary Malignant Neoplasm Bone (HCC) (Primary Dx); Melanoma Trunk (HCC); Secondary Malignant Neoplasm Brain (HCC) 11/25/2023 1:06 PM CDT - 11/25/2023 11:59 PM CDT Hospital Encounter Department of Radiology, [facility], in [place], [place] [address] [place] [address] Pérez Zuniga M.D., Ph.D. Melanoma Trunk (HCC); Secondary Malignant Neoplasm Brain (HCC); Secondary Malignant Neoplasm Bone (HCC) Discharge Disposition: Home or Self Care 11/22/2023 12:15 PM CDT Clinical Communication Virtual Review in [place], [place] [address] [place] [phone] Pre-visit Intake from Last 3 Months Allergies No known [...] Brain 08/23/2023 Sepsis 08/08/2023 Melanoma Trunk 06/04/2023 Immunizations Name Administration Dates Next Due Influenza Laiv (Nasal) (Discontinued) 04/12/2015 ,04/07/2013,03/14/2012 Influenza TIV (IM) 03/14/2011 Influenza, Seasonal, Injectable 03/14/2011 Influenza, Unspecified 06/26/2010,2008,05/03/2008,2006,05/24/2006,04/16/2005 Td (Adult), adsorbed 07/28/2003,02/15/1994 Tdap 04/13/2021,06/26/2010 influenza LAIV (Nasal) (2 ye ars through 49 years) 04/12/2015,04/07/2013,03/14/2012,2008 influenza vaccine quad (FLUZONE/FLUARIX) (6 months and older)(PF) 06/05/2023,04/09/2022,03/23/2021,2019,04/07/2019,05/05/2018,04/19/2017,1 ,04/06/2014 Social History Tobacco Use Types Packs/Day Years Used Date Smoking Tobacco: Never Passive Smoke Exposure: Never Smokeless Tobacco: Never Tobacco Cessation:Counseling Given: Not Answered Alcohol Use Standard Drinks/Week Comments Not Currently 0 (1 standard drink = 0.6 oz pur e alcohol) Occasional [employer] Utilities Answer Date Recorded In the past 12 months has th e [employer], gas, oil, or water [employer] threatened to shut off services in your [...] your living situation today? 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 [address] [place] [phone] 02/27/2024 8:45 AM CDT Clinical Support Department of Palliative Care in [place], [place] [address] [place] [phone] Bereket Johnson APRN, C.N.P., D.N.P. [address] [place] [phone] 02/27/2024 9:45 AM CDT Clinical Support Department of Palliative Care in [place], [place] [address] [place] [phone] Marija Olivas APRN, C.N.P., M.S.N. [address] [place] [phone] 02/27/2024 11:00 AM CDT Lab Department of Laboratory Medicine and Pathology, [facility], in [place], [place] [address] [place] [phone] Zhane Granados APRN, C.N.P. [address] [place] [phone] 02/27/2024 1:00 PM CDT Office Visit Department of Oncology in [place], [place] [address] [place] [phone] Pérez Zuniga M.D., Ph.D. [address] [place] [phone] 02/27/2024 1:45 PM CDT Infusion Department of Oncology in [address] [address] Zhane Granados APRN, C.N.P. [address] [place] [phone] 03/17/2024 7:00 AM CDT Clinical Communication Virtual Review in [place], [place] [address] [place] [address] 03/19/2024 10:45 AM CDT Clinical Support Department of Palliative Care in [place], [place] [address] [place] [phone] Marija Olivas APRN, Harsha.N.P., M.S.N. [address] [place] [phone] 03/19/2024 11:30 AM CDT Office Visit Department of Palliative Care in [place], [place] [address] [place] [phone] Valentine Kelsey M.D., M.S. [address] [place] [phone] 03/19/2024 11:40 AM CDT Lab Department of Laboratory Medicine and Pathology, [facility] in [place], [place] [address] [place] [phone] Zhane Granados APRN, C.N.P. [address] [place] [phone] 03/19/2024 1:40 PM CDT Office Visit Department of Oncology in [address] [address] Pérez Zuniga M.D., Ph.D. [address] [place] [phone] 03/19/2024 2:45 PM CDT Infusion Department of Oncology in [address] [address] Zhane Granados APRN, C.N.P. [address] [place] [phone] 03/24/2024 3:00 PM CDT Clinical Communication Virtual Review in [place], [place] [address] [place] [address] 03/26/2024 7:45 AM CDT Appointment Department of Radiology, [facility] in [place], [place] [address] [place] [phone] Zhane Granados APRN, C.N.P. [address] [place] [phone] 03/26/2024 3:20 PM CDT Office Visit Department of Oncology in [place], [place] [address] [place] [phone] Pérez Zuniga M.D., Ph.D. [address] [place] [phone] Procedures Procedure Name Priority Date/Time Associated Diagnosis [...] Brain (HCC) Secondary Malignant Neoplasm Bone (HCC) [place] T4 FREE Routine 02/04/2024 10:46 AM CDT [...] 9:28 AM CDT Melanoma Trunk (HCC) Other Electronic Imaging System Operator Current Drug Therapy ECG Routine 01/14/2024 9:59 AM CDT Melanoma Trunk (HCC) Other Electronic Imaging System Operator Current Drug Therapy [place] T4 FREE Routine 01/14/2024 7:34 AM CDT [...] LAB RESULTS Routine 01/07/2024 1:03 PM CDT [place] T3 TOTAL Routine 12/26/2023 7:18 AM CDT [place] T4 FREE Routine 12/26/2023 7:18 AM CDT [...] Elapsed Days 0 [facility] Reference Point [id number] T11 [facility] Dosage Given to Date cGy 2400 [facility] Session Dosage Given 2400 [facility] [facility] Reference Point [id number] Ischium AR[facility]A Dosage Given to Date cGy 2400 [facility] Session Dosage Given 2400 [facility] Plan ID [id number] [facility] Fractions Treated to Date 1 AR[facility]A Planned Total Fractions 1 AR[facility]ON [facility]A Prescribed Dose Per Fraction 2400 [facility] Prescription Dose in cGy 2400 [facility] Plan Primary Reference Point [id number] T11 [facility] Plan ID [id number] [facility] Fractions Treated to Date 1 AR[facility]A Planned Total Fractions 1 AR[facility]A Prescribed Dose Per Fraction 2400 [facility]A Prescription Dose in cGy 2400 [facility] Plan Primary Reference Point [id number] Ischium AR[facility]ON ARIA 02/21/2024 1:46 PM CDT Provider Not In System RADIATION ONCOLOG Y ORDERABLES ARAGON ARIA na * Aria Course Complete Treatment Information (02/20/2024 2:42 PM CDT) Only the most recent of5 resultswithin the time period is included. Course ID [id number] [facility] Course Start Date 10/24/2023 15:34 CDT [facility] Course End Date 02/20/2024 14:42 CDT [facility] Reference Point [id number] [facility] Dosage Given to Date cGy 0 [facility] Reference Point [id number] [facility] Dosage Given to Date cGy 0 [facility] Reference Point [id number] ium [facility] Dosage Given to Date cGy 0 [facility] Reference Point [id number] rosa isela [facility] Dosage Given to Date cGy 0 [facility] Plan ID [id number] [facility] Fractions Treated to Date 0 [facility] Planned Total Fractions 10 [facility]A Prescribed Dose Per Fraction 300 AR[facility]A Prescription Dose in cGy 3000 [facility] Plan Primary Reference Point [id number] [facility] Plan ID [id number] [facility] Fractions Treated to Date 0 [facility]A Planned Total Fractions 10 [facility]A Prescribed Dose Per Fraction 300 [facility] Prescription Dose in cGy 3000 [facility] Plan Primary Reference Point [id number] [facility] Plan ID [id number] [facility] Fractions Treated to Date 0 [facility] Planned Total Fractions 1 [facility]A Prescribed Dose Per Fraction 2000 AR[facility] Prescription Dose in cGy 2000 [facility] Plan Primary Reference Point [id number] [facility] Plan ID [id number] [facility] Fractions Treated to Date 0 [facility]A Planned Total Fractions 1 [facility]A Prescribed Dose Per Fraction 2400 [facility]A Prescription Dose in cGy 2400 [facility] Plan Primary Reference Point [id number] [facility] Plan ID [id number] [facility] Fractions Treated to Date 0 [facility] Planned Total Fractions 1 [facility]A Prescribed Dose Per Fraction 2400 [facility] Prescription Dose in cGy 2400 [facility] Plan Primary Reference Point [id number] ium [facility] Plan ID [id number] [facility] Fractions Treated to Date 0 [facility] Planned Total Fractions 1 [facility]A Prescribed Dose Per Fraction 2400 [facility] Prescription Dose in cGy 2400 [facility] Plan Primary Reference Point [id number] ium [facility] Plan ID [id number] [facility] Fractions Treated to Date 0 [facility] Planned Total Fractions 3 [facility] Prescribed Dose Per Fraction 1200 [facility] Prescription Dose in cGy 3600 [facility] Plan Primary Reference Point [id number] rosa isela [facility]A 02/20/2024 2:42 PM [...] bodies. No evidence of epidural disease. Tara López M.D. [place] MRI PROCEDURE S * Initial Rad Onc [...] RADIOPHARMACEUTICAL/MEDS: Route: intravenous fludeoxyglucose F 18 injection CUSTODIAL (FDG F-18),9.95 millicurie TECHNIQUE: ??F-18 FDG PET/CT [...] the bilateral tibias were previously off the [id number] now demonstrating SUV max values of 9.7 [...] RADIOPHARMACEUTICAL/MEDS: Route: intravenous fludeoxyglucose F 18 injection CUSTODIAL (FDG F-18),9.95 millicurie TECHNIQUE: F-18 FDG PET/CT [...] lesions demonstrate increasing FDG uptake including the [id number] body metastasis with new pathologic compression fracture, SUVmax of 13.1 (axial fused image 164), previously 8.6, and the right ischiummetastasis, SUV max 14.2 (axial fused image 281), previously 8.4. Metastases within the bilateral tibias were previously off [id number]-pa-[id number] now demonstrating SUV max values of 9.7 [...] an SUV max of 1.4 (axial fused ; CT image 142) and an 8 mm [...] concerning forthyroiditis. Harsha Roberts APRN.N.P. IMG NM [place] OCEDURES * T4 (Thyroxine), Free, Serum (02/04/2024 10:46 AM CDT) Only the most recent of3 resultswithin the time period is included. T4 (Thyroxine), Free, S 0.9 0.9 - 1.7 ng/dL 02/04/2024 12:08 PM CDT DTL Blood 02/04/2024 10:4 6 AM CDT 02/04/2024 11:15 AM CDT Zhane Granados APRN, C.N.P. LAB BLOOD ADD-ON [facility] [address] [place] [address], [facility] [facility] [address] [place] [address] * (ABNORMAL) Thyroid Function Humphreys (02/04/2024 10:46 AM CDT) Only the most recent of4 resultswithin the time period is included. TSH, Sensitive 38.3(H) 0.3 - 4.2 mIU/L 02/04/2024 11:48 AM CDT DTL Blood (Blood, Venous) 02/04/2024 10:46 AM CDT 02/04/2024 11:15 AM CDT Price Roberts APRNN.P. LAB BLOOD ADD-ON Performing Organization Address City/[facility] Co de Phone Number [facility] [address] [place] [address], [facility] [place] [address] * Thyroperoxidase (TPO) Antibodies (02/04/2024 10:46 AM CDT) Only the most recent of2 resultswithin the time period is included. Pathologist [facility] [place] Thyroperoxidase Ab, S 16.9 <34.0 IU/mL 02/04/2024 12:08 PM CDT DTL Blood 02/04/2024 10:4 6 AM CDT 02/04/2024 11:15 AM CDT Price Roberts APRNN.P. LAB BLOOD ADD-ON Performing Organization Address [facility] de Phone Number [facility] [address] [place], [place] [id number] [place] [address] * (ABNORMAL) CBC with Differential, Blood (02/04/2024 10:46 AM CDT) Only the most recent of4 resultswithin the time period is included. Pathologist [facility] [place] Hemoglobin 11.2(L) 11.6 - 15.0 g/dL 02/04/2024 [...] Zhane Granados APRN, C.N.P. LAB BLOOD ADD-ON [facility] [address] [place] [address], [facility] DTL [facility] [address] [place] [address] [facility] 200 [place] [address] * (ABNORMAL) LD (Lactate Dehydrogenase) (02/04/2024 10:46 AM CDT) Only the most recent of4 resultswithin the time period is included. [facility] Litzy LD 268(H) 122 - 222 U/L 02/04/2024 11:56 AM CDT DTL Blood (Blood, Venous) 02/04/2024 10:46 AM CDT 02/04/2024 11:35 AM CDT Zhane Granados APRN, C.N.P. LAB BLOOD NON ADD-ON Performing Organization Address City/[facility]/ZIP Co de Phone Number [facility] 200 [place] [address] * Bilirubin, Direct (02/04/2024 10:46 AM CDT) Only the most recent of4 resultswithin the time period is included. Bilirubin, Direct, S <0.2 0.0 - 0.3 mg/dL 02/04/2024 11:48 AM CDT DTL Blood (Blood, Venous) 02/04/2024 10:46 AM CDT 02/04/2024 11:15 AM CDT Price Roberts APRNNSantoshP. LAB BLOOD ADD-ON Performing Organization Address City/[facility] Co de Phone Number [facility] [address] [place] [address], [facility] 200 [place] [address] * (ABNORMAL) Comprehensive Metabolic Panel (02/04/2024 10:46 [...] Zhane Granados APRN, C.N.P. LAB BLOOD ADD-ON [facility]ATORIES [facility] [address] [place] [address], [facility] [address] [place] [address] * (ABNORMAL) Hematology/Oncology - Blood, External Lab Results (01/29/2024 2:40 PM CDT) Only the most recent of3 resultswithin the time period is included. EXT AST 41(A) 10 - 35 OTHER (SPECIFY IN VETERINARIAN) EXT ALT 30 10 - 35 OTHER (SPECIFY IN VETERINARIAN) EXT Alkaline Phosphatase 132(A) 35 - 104 OTHER (SPECIFY IN VETERINARIAN) EXT Bilirubin, Total 0.2 0.0 - 1.2 OTHER (SPECIFY IN VETERINARIAN) EXT Sodium 138 136 - 145 OTHER (SPECIFY IN VETERINARIAN) EXT Potassium 4.7 3.5 - 5.1 OTHER (SPECIFY IN VETERINARIAN) EXT Calcium, Total 9.1 8.6 - 10.0 OTHER (SPECIFY IN VETERINARIAN) EXT Creatinine 0.96(A) 0.50 - 0.90 OTHER (SPECIFY IN VETERINARIAN) EXT Total Protein 7.9 6.0 - 8.0 OTHER (SPECIFY IN VETERINARIAN) EXT Albumin 4.0 4.0 - 4.9 OTHER (SPECIFY IN VETERINARIAN) EXT Glucose, 180 Min 96 70 - 99 OTHER (SPECIFY IN VETERINARIAN) Blood 01/29/2024 2:40 PM CDT Historical Provider LAB BLOOD NON ADD-ON OTHER (SPECIFY IN VETERINARIAN) N/A * (TTE) 2D LIMITED WITH LIMITED [...] the complete report, see the Order-Level Documents. Harsha Roberts APRN.N.P. CV ECHO P ROCEDURES * ECG 12 Lead (01/14/2024 9:59 AM CDT) Ventricular Rate ECG/Min 75 BPM MUSE [place] Interval 134 ms MUSE QRSD Interval 82 ms MUSE QT Interval 404 ms MUSE QTC Interval 451 ms MUSE P Spearman 47 degrees MUSE R Spearman 76 degrees MUSE T Wave Spearman 40 degrees MUSE 01/14/2024 9:59 AM CDT [...] change was found Reviewed by BREANNA Shanks Zhane Granados APRN C.N.P. ECG ORDER DANIEL IMPERIAL NA * MR Brain without and with [...] right frontal meningioma is stable since 05/29/2023. Price Roberts APRNNSimi. IMG MRI P ROCEDURES * T3 (Triiodothyronine), Total, Serum (12/26/2023 7:18 AM CDT) T3 (Triiodothyroni ne), Total, S 108 80 - 200 ng/dL 12/26/2023 8:49 AM CDT DTL Blood 12/26/2023 7:18 AM CDT 12/26/2023 7:45 AM CDT Pérez Zuniga M.D., Ph.D. LAB BLOO D NON ADD-ON [facility] LAB[facility]ATORIES [facility] [address] [place] [address], [facility] DTL [facility] [address] [place] [address] * PET CT Skull to Thigh FDG [...] RADIOPHARMACEUTICAL/MEDS: Route: intravenous fludeoxyglucose F 18 injection CUSTODIAL (FDG F-18),9.9 millicurie TECHNIQUE: ??F-18 FDG PET/CT [...] RADIOPHARMACEUTICAL/MEDS: Route: intravenous fludeoxyglucose F 18 injection CUSTODIAL (FDG F-18),9.9 millicurie TECHNIQUE: F-18 FDG PET/CT [...] thickening of the left lateral chest wall ([id number]). No suspicious FDG avid lymphadenopathy. Left adnexal [...] Advance Directives For more information, please contact: [phone] * Full Code (Latest Code Status on File) Date Activated Date Inactivated Comments 08/09/2023 5:52 AM 08/09/2023 5:43 PM Question Answer Comments Full Code: Discussed Care Teams Guide Excursion Relationship Specialty Start Date End Date Elsewhere, Pcp PCP - General Family Medicine 06/17/23
--- OUTSIDE RECORDS SUMMARY | 2024-02-21 15:05 | XMS_ITS | Encounter Summary ---
Author Organization [facility] Address [address] [place] [address] Care Team Providers Care Elect Equip Maint Eng Name Role Phone Elsewhere, Pcp Primary Care Provider Unavailabl e Reason for Referral * Outpatient (Routine) - Closed Specialty Diagnoses / Procedures Referred By Mikki t Referred To Contact Radiation Oncology Diagnoses Melanoma Trunk (HCC) Zhane Granados APRN, C.N.P. [address] [place] [phone] [facility] Referral ID Status Reason Start Date Expiration Date Visits Re quested Visits Authorized [id number] Closed 02/12/2024 08/13/2025 1 1 Scheduling Instructions With Maribel Encounter Details Date Type Department Care Team (Late st Contact Info) Description 02/12/2024 Orders Only Department of Oncology in [place], [place] [address] [place] [phone] Zhane Granados APRN, C.N.P. [address] [place] [phone] Melanoma Trunk (HCC) (Primary Dx) Social History Tobacco Use Types Packs/Day Years Used Date Smoking Tobacco: Never Passive Smoke Exposure: Never Smokeless Tobacco: Never Alcohol Use Standard Drinks/Week Comments Not Currently 0 (1 standard drink = 0.6 oz pur e alcohol) Occasional [facility] Utilities Answer Date Recorded In [...] living situation today? I have a [facility] place to live 07/10/2023 Sex and Gender Information Value Date Recorded Sex Assigned at Female 05/31/2023 8:26 AM TELEPHONE REPAIRER Gender Identity Female 05/31/2023 8:26 AM TELEPHONE REPAIRER Sexual Orientation Straight 05/31/2023 8: 26 AM TELEPHONE REPAIRER documented as of this encounter Plan of Treatment Upcoming Encounters Date Type Department Care Team (Late st Contact Info) Description 02/25/2024 10:00 AM CDT Clinical Communication Virtual Review in [place], [place] 200 [place] [phone] 02/27/2024 7:30 AM CDT Appointment Department of Radiology, [facility] in [place], [place] [address] [place] [phone] Zhane Granados APRN, C.N.P. [address] [place] [phone] 02/27/2024 8:45 AM CDT Clinical Support Department of Palliative Care in [place], [place] [address] [place] [phone] Bereket Johnson APRN, C.N.P., D.N.P. [address] [place] [phone] 02/27/2024 9:45 AM CDT Clinical Support Department of Palliative Care in [address] [phone] Marija Olivas APRN, C.N.P., M.S.N. [address] [place] [phone] 02/27/2024 11:00 AM CDT Lab Department of Laboratory Medicine and Pathology, [facility] in [place], [place] [address] [place] [phone] Zhane Granados APRN, C.N.P. [address] [place] [phone] 02/27/2024 1:00 PM CDT Office Visit Department of Oncology in [address] [phone] Pérez Zuniga M.D., Ph.D. [address] [place] [phone] 02/27/2024 1:45 PM CDT Infusion Department of Oncology in [place], [place] [address] [place] [phone] Zhane Granados APRN, C.N.P. [address] [place] [phone] 03/17/2024 7:00 AM CDT Clinical Communication Virtual Review in [place], [place] 200 [place] [address] 03/19/2024 10:45 AM CDT Clinical Support Department of Palliative Care in [place], [place] [address] [place] [phone] Marija Olivas APRN, C.N.P., M.S.N. [address] [place] [phone] 03/19/2024 11:30 AM CDT Office Visit Department of Palliative Care in [place], [place] [address] [place] [phone] Valentine Kelsey M.D., M.S. [address] [place] [phone] 03/19/2024 11:40 AM CDT Lab Department of Laboratory Medicine and Pathology, [facility], in [place], [place] [address] [place] [phone] Zhane Granados APRN, C.N.P. [address] [place] [phone] 03/19/2024 1:40 PM CDT Office Visit Department of Oncology in [address] [phone] Pérez Zuniga M.D., Ph.D. [address] [place] [phone] 03/19/2024 2:45 PM CDT Infusion Department of Oncology in [place], [place] [address] [place] [phone] Zhane Granados APRN, C.N.P. [address] [place] [phone] 03/24/2024 3:00 PM CDT Clinical Communication Virtual Review in [place], [place] 200 [place] [phone] 03/26/2024 7:45 AM CDT Appointment Department of Radiology, [facility], in [place], [place] [address] [place] [phone] Zhane Granados APRN, C.N.P. [address] [place] [phone] 03/26/2024 3:20 PM CDT Office Visit Department of Oncology in [place], [place] [address] [place] [phone] Pérez Zuniga M.D., Ph.D. [address] [place] [phone] Scheduled Referrals Name Type Priority Associated Diagnoses Order Schedule Radiation Oncology - Palliative / metastatic consult (clinic) Outpatient Referral Routine Melanoma Trunk (HCC) Expected: 02/12/2024, Expires: 05/14/2025 documented as of this encounter Visit Diagnoses Diagnosis Melanoma Trunk (HCC)- Primary documented in this encounter Additional Health Concerns Infection Onset Date Last Indicated Resolved Time Protective Environment 06/04/2023 06/04/2023 documented as of this encounter Care Teams Elect Equip Maint Eng Relationship Specialty Start Date End Date Elsewhere, Pcp PCP - General Family Medicine 06/17/23 documented as of this encounter
--- OUTSIDE RECORDS SUMMARY | 2024-02-21 15:05 | XMS_ITS ---
Author Organization [facility] Address [address] [place] [address] Care Team Providers Care Transit Survey Worker Name Role Phone Unavailable Unavailable Unavailable Surgery Details Not on file Complications Check Surgery Details section. Procedure Estimated Blood Loss Check Surgery Details section. Procedure Findings Check Surgery Details section. Procedure Specimens Taken Check Surgery Details section.
--- OUTSIDE RECORDS SUMMARY | 2024-02-21 15:05 | XMS_ITS | Encounter Summary ---
Author Organization [facility] Address [address] [place] [address] Care Team Providers Care Gore Maker Name Role Phone Elsewhere, Pcp Primary Care Provider Unavailabl e Reason for Visit * Radiation Therapy (Routine) - Authorized Specialty Diagnoses / Procedures Referred By Contsweetie t Referred To Contact Diagnoses Secondary Malignant Neoplasm Bone (HCC) Procedures Prior Auth Rad Tx [place] STEREOTACTIC BODY RADTN DEL [place] IMRT RADIOTHERAPY PLAN SRS Tara López M.D. [address] [place] [phone] [facility] [place] [address] [place] [phone] Referral ID Status Reason Start Date Expiration Date V isits Requested Visits Authorized [id number] Authorized 02/20/2024 07/14/2024 2 2 Encounter Details Date Type Department Care Team (Late st Contact Info) Description 02/21/2024 12:45 PM CDT Hospital Encounter Department of Radiation Oncology in [place], [place] [address] [place] [phone] Tara López M.D. [address] [place] [phone] Social History Tobacco Use Types Packs/Day Years Used Date Smoking Tobacco: Never Passive Smoke Exposure: Never Smokeless Tobacco: Never Alcohol Use Standard Drinks/Week Comments Not Currently 0 (1 standard drink = 0.6 oz pur e alcohol) Occasional [facility] Utilities Answer Date Recorded In the [...] your living situation today? I have a [facility] place to live 07/10/2023 Sex and Gender Information Value Date Recorded Sex Assigned at Female 05/31/2023 8:26 AM SYSTEMS INTEGRATION ENGINEER Gender Identity Female 05/31/2023 8:26 AM SYSTEMS INTEGRATION ENGINEER Sexual Orientation Straight 05/31/2023 8: 26 AM SYSTEMS INTEGRATION ENGINEER documented as of this encounter Plan of Treatment Upcoming Encounters Date Type Department Care Team (Late st Contact Info) Description 02/25/2024 10:00 AM CDT Clinical Communication Virtual Review in [place], [place] 200 [place] [phone] 02/27/2024 7:30 AM CDT Appointment Department of Radiology, [facility] in [place], [place] [address] [place] [phone] Zhane Granados APRN, C.N.P. [address] [place] [phone] 02/27/2024 8:45 AM CDT Clinical Support Department of Palliative Care in [place], [place] [address] [place] [phone] Bereket Johnson APRN, C.N.P., D.N.P. [address] [place] [phone] 02/27/2024 9:45 AM CDT Clinical Support Department of Palliative Care in [address] [phone] Marija Olivas APRN, C.N.P., M.S.N. [address] [place] [phone] 02/27/2024 11:00 AM CDT Lab Department of Laboratory Medicine and Pathology, [facility] in [place], [place] [address] [place] [phone] Zhane Granados APRN, C.N.P. [address] [place] [phone] 02/27/2024 1:00 PM CDT Office Visit Department of Oncology in [place], [place] [address] [place] [phone] Pérez Zuniga M.D., Ph.D. [address] [place] [phone] 02/27/2024 1:45 PM CDT Infusion Department of Oncology in [place], [place] [address] [place] [phone] Zhane Granados APRN, C.N.P. [address] [place] [phone] 03/17/2024 7:00 AM CDT Clinical Communication Virtual Review in [place], [place] 200 [place] [phone] 03/19/2024 10:45 AM CDT Clinical Support Department of Palliative Care in [place], [place] [address] [place] [phone] Marija Olivas APRN, C.N.P., M.S.N. [address] [place] [phone] 03/19/2024 11:30 AM CDT Office Visit Department of Palliative Care in [place], [place] [address] [place] [phone] Valentine Kelsey M.D., M.S. [address] [place] [phone] 03/19/2024 11:40 AM CDT Lab Department of Laboratory Medicine and Pathology, [facility], in [address] [phone] Zhane Granados APRN, C.N.P. [address] [place] [phone] 03/19/2024 1:40 PM CDT Office Visit Department of Oncology in [address] [phone] Pérez Zuniga M.D., Ph.D. [address] [place] [phone] 03/19/2024 2:45 PM CDT Infusion Department of Oncology in [place], [place] [address] [place] [phone] Zhane Granados APRN, C.N.P. [address] [place] [phone] 03/24/2024 3:00 PM CDT Clinical Communication Virtual Review in [place], [place] 200 [place] [address] 03/26/2024 7:45 AM CDT Appointment Department of Radiology, [facility], in [place], [place] [address] [place] [phone] Zhane Granados APRN, C.N.P. [address] [place] [phone] 03/26/2024 3:20 PM CDT Office Visit Department of Oncology in [address] [phone] Pérez Zuniga M.D., Ph.D. [address] [place] [phone] documented as of this encounter Visit Diagnoses Not on filedocumented in this encounter Additional Health Concerns Infection Onset Date Last Indicated Resolved Time Protective Environment 06/04/2023 06/04/2023 documented as of this encounter Care Teams Gore Maker Relationship Specialty Start Date End Date Elsewhere, Pcp PCP - General Family Medicine 06/17/23 documented as of this encounter
--- OUTSIDE RECORDS SUMMARY | 2024-02-21 15:05 | XMS_ITS | Encounter Summary ---
Author Organization [facility] Address [address] [place] [address] Care Team Providers Care Biological Plant Operator Name Role Phone Elsewhere, Pcp Primary Care Provider Unavailabl e Reason for Visit * Reason Comments Med Refill Mektovi, braftovi Encounter Details Date Type Department Care Team (Late st Contact Info) Description 02/18/2024 Refill Department of Oncology in [place], [place] [address] [place] [phone] Pérez Zuniga M.D., Ph.D. [address] [place] [phone] Med Refill (Mektovi, braftovi ) Social History Tobacco Use Types Packs/Day Years Used Date Smoking Tobacco: Never Passive Smoke Exposure: Never Smokeless Tobacco: Never Alcohol Use Standard Drinks/Week Comments Not Currently 0 (1 standard drink = 0.6 oz pur e alcohol) Occasional C Utilities Answer Date Recorded In the past 12 months has [employer], gas, oil, or water company threatened to [...] your living situation today? I have a [facility] place to live 07/10/2023 Sex and Gender Information Value Date Recorded Sex Assigned at Female 05/31/2023 8:26 AM CLINICAL SOCIAL WORK THERAPIST Gender Identity Female 05/31/2023 8:26 AM CLINICAL SOCIAL WORK THERAPIST Sexual Orientation Straight 05/31/2023 8: 26 AM CLINICAL SOCIAL WORK THERAPIST documented as of this encounter Plan of Treatment Upcoming Encounters Date Type Department Care Team (Late st Contact Info) Description 02/25/2024 10:00 AM CDT Clinical Communication Virtual Review in [place], [place] [address] [place] [address] 02/27/2024 7:30 AM CDT Appointment Department of Radiology, [facility] in [place], [place] [address] [place] [phone] Zhane Granados, GAIL, C.N.P. [address] [place] [phone] 02/27/2024 8:45 AM CDT Clinical Support Department of Palliative Care in [place], [place] [address] [place] [phone] Bereket Johnson APRN, C.N.P., D.N.P. [address] [place] [phone] 02/27/2024 9:45 AM CDT Clinical Support Department of Palliative Care in [place], [place] [address] [place] [phone] Marija Olivas APRN, Harsha.N.P., M.S.N. [address] [place] [phone] 02/27/2024 11:00 AM CDT Lab Department of Laboratory Medicine and Pathology, [facility] in [place], [place] [address] [place] [phone] Zhane Granados APRN, C.N.P. [address] [place] [phone] 02/27/2024 1:00 PM CDT Office Visit Department of Oncology in [place], [place] [address] [place] [phone] Pérez Zuniga M.D., Ph.D. [address] [place] [phone] 02/27/2024 1:45 PM CDT Infusion Department of Oncology in [place], [place] [address] [place] [phone] Zhane Granados APRN, C.N.P. [address] [place] [phone] 03/17/2024 7:00 AM CDT Clinical Communication Virtual Review in [place], [place] 200 [place] [phone] 03/19/2024 10:45 AM CDT Clinical Support Department of Palliative Care in [place], [place] [address] [place] [phone] Marija Olivas APRN, C.N.P., M.S.N. [address] [place] [phone] 03/19/2024 11:30 AM CDT Office Visit Department of Palliative Care in [place], [place] [address] [place] [phone] Valentine Kelsey M.D., M.S. [address] [place] [phone] 03/19/2024 11:40 AM CDT Lab Department of Laboratory Medicine and Pathology, [facility] in [address] [phone] Zhane Granados APRN, C.N.P. [address] [place] [phone] 03/19/2024 1:40 PM CDT Office Visit Department of Oncology in [address] [phone] Pérez Zuniga M.D., Ph.D. [address] [place] [phone] 03/19/2024 2:45 PM CDT Infusion Department of Oncology in [address] [phone] Zhane Granados APRN, C.N.P. [address] [place] [phone] 03/24/2024 3:00 PM CDT Clinical Communication Virtual Review in [address] [phone] 03/26/2024 7:45 AM CDT Appointment Department of Radiology, [facility], in [place], [place] [address] [place] [address] Zhane Granados APRN, C.N.P. [address] [place] [phone] 03/26/2024 3:20 PM CDT Office Visit Department of Oncology in [place], [place] [address] [place] [address] Pérez Zuniga M.D., Ph.D. [address] [place] [phone] documented as of this encounter Visit Diagnoses Not on filedocumented in this encounter Additional Health Concerns Infection Onset Date Last Indicated Resolved Time Protective Environment 06/04/2023 06/04/2023 documented as of this encounter Care Teams Biological Plant Operator Relationship Specialty Start Date End Date Elsewhere, Pcp PCP - General Family Medicine 06/17/23 documented as of this encounter
--- OUTSIDE RECORDS SUMMARY | 2024-02-21 15:05 | XMS_ITS | Encounter Summary ---
Author Organization 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 [address] [place] [phone] [facility] Referral ID Status Reason Start Date Expiration Date V isits Requested Visits Authorized [id number] Authorized 02/20/2024 08/21/2025 1 1 Encounter Details Date Type Department Care Team (Late st Contact Info) Description 02/20/2024 Orders Only Department of Oncology in [place], [place] [address] [place] [phone] Zhane Granados APRN, C.N.P. [address] [place] [phone] Melanoma Trunk (HCC) (Primary Dx); Secondary Malignant Neoplasm Bone (HCC) Social History Tobacco Use Types Packs/Day Years Used Date Smoking Tobacco: Never Passive Smoke Exposure: Never Smokeless Tobacco: Never Alcohol Use Standard Drinks/Week Comments Not Currently 0 (1 standard drink = 0.6 oz pur e alcohol) Occasional [facility] Utilities Answer Date Recorded In [...] your living situation today? [facility] 07/10/2023 Sex and Gender Information Value Date Recorded Sex Assigned at Female 05/31/2023 8:26 AM [employer] Gender Identity Female 05/31/2023 8:26 AM [employer] Sexual Orientation Straight 05/31/2023 8: 26 AM [employer] SU[employer] documented as of this encounter Plan of Treatment Upcoming Encounters Date Type Department Care Team (Late st Contact Info) Description 02/25/2024 10:00 AM CDT Clinical Communication Virtual Review in [place], [place] 200 [place] [phone] 02/27/2024 7:30 AM CDT Appointment Department of Radiology, [facility] in [place], [place] [address] [place] [phone] Zhane Granados APRN, C.N.P. [address] [place] [phone] 02/27/2024 8:45 AM CDT Clinical Support Department of Palliative Care in [place], [place] [address] [place] [phone] Bereket oJhnson APRN, C.N.P., D.N.P. [address] [place] [phone] 02/27/2024 9:45 AM CDT Clinical Support Department of Palliative Care in [address] [phone] Marija Olivas APRN, C.N.P., M.S.N. [address] [place] [phone] 02/27/2024 11:00 AM CDT Lab Department of Laboratory Medicine and Pathology, [facility], in [place], [place] [address] [place] [phone] Zhane Granados APRN, C.N.P. [address] [place] [phone] 02/27/2024 1:00 PM CDT Office Visit Department of Oncology in [address] [phone] Pérez Zuniga M.D., Ph.D. [address] [place] [phone] 02/27/2024 1:45 PM CDT Infusion Department of Oncology in [place], [place] [address] [place] [phone] Zhane Granados APRN, C.N.P. [address] [place] [phone] 03/17/2024 7:00 AM CDT Clinical Communication Virtual Review in [place], [place] 200 [place] [phone] 03/19/2024 10:45 AM CDT Clinical Support Department of Palliative Care in [address] [phone] Marija Olivas APRN, C.N.P., M.S.N. [address] [place] [phone] 03/19/2024 11:30 AM CDT Office Visit Department of Palliative Care in [place], [place] [address] [place] [phone] Valentine Kelsey M.D., M.S. [address] [place] [phone] 03/19/2024 11:40 AM CDT Lab Department of Laboratory Medicine and Pathology, [facility] in [place], [place] [address] [place] [phone] Zhane Granados APRN, C.N.P. [address] [place] [phone] 03/19/2024 1:40 PM CDT Office Visit Department of Oncology in [place], [place] [address] [place] [phone] Pérez Zuniga M.D., Ph.D. [address] [place] [phone] 03/19/2024 2:45 PM CDT Infusion Department of Oncology in [place], [place] [address] [place] [phone] Zhaen Granados APRN, C.N.P. [address] [place] [phone] 03/24/2024 3:00 PM CDT Clinical Communication Virtual Review in [place], [place] 200 [place] [phone] 03/26/2024 7:45 AM CDT Appointment Department of Radiology, [facility] in [place], [place] [address] [place] [phone] Zhane Granados APRN, C.N.P. [address] [place] [phone] 03/26/2024 3:20 PM CDT Office Visit Department of Oncology in [place], [place] [address] [place] [phone] Pérez Zuniga M.D., Ph.D. [address] [place] [phone] Scheduled Referrals Name Type Priority Associated Diagnoses Order Schedule Interventional Radiology - Neuro spine consult (clinic) Outpatient Referral Routine Melanoma Trunk (HCC) Secondary Malignant Neoplasm Bone (HCC) Expected: 02/20/2024, Expires: 05/22/2025 documented as of this encounter Visit Diagnoses Diagnosis Melanoma Trunk (HCC)- Primary Secondary Malignant Neoplasm Bone (HCC) documented in this encounter Additional Health Concerns Infection Onset Date Last Indicated Resolved Time Protective Environment 06/04/2023 06/04/2023 documented as of this encounter Care Teams Curriculum Coach Relationship Specialty Start Date End Date Elsewhere, Pcp PCP - General Family Medicine 06/17/23 documented as of this encounter
--- OUTSIDE RECORDS SUMMARY | 2024-02-21 15:05 | XMS_ITS | Encounter Summary ---
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 [address] [place] [address] [facility] Referral ID Status Reason Start Date Expiration Date Visits Re quested Visits Authorized [id number] Closed 02/12/2024 02/11/2025 1 1 * Outpatient (Routine) - Closed Specialty Diagnoses / Procedures Referred By Contac t Referred To Contact Radiation Oncology Diagnoses Melanoma Trunk (HCC) Zhane Granados APRN, C.N.P. [address] [place] [address] [facility] Referral ID Status Reason Start Date Expiration Date Visits Re quested Visits Authorized [id number] Closed 02/12/2024 08/13/2025 1 1 Scheduling Instructions With Maribel Reason for Visit * Outpatient (Routine) - Closed Specialty Diagnoses / Procedures Referred By Mikki feliciano Referred To Contact Radiation Oncology Diagnoses Melanoma Trunk (HCC) Zhane Granados APRN, C.N.P. [address] [place] [address] [facility] Referral ID Status Reason Start Date Expiration Date Visits Re quested Visits Authorized [id number] Closed 02/12/2024 08/13/2025 1 1 Encounter Details Date Type Department Care Team (Latest Contact Info) Description 02/12/2024 2:30 PM CDT - 02/12/2024 2:58 PM CDT Hospital Encounter Department of Radiation Oncology in [place], [place] [address] [place] [phone] Tara López M.D. [address] [place] [address] Secondary Malignant Neoplasm Bone (HCC) (Primary Dx); Melanoma Trunk (HCC) Social History Tobacco Use Types Packs/Day Years Used Date Smoking Tobacco: Never Passive Smoke Exposure: Never Smokeless Tobacco: Never Alcohol Use Standard Drinks/Week Comments Not Currently 0 (1 standard drink = 0.6 oz pur e alcohol) Occasional [facility] Utilities Answer Date Recorded In the past 12 months has [employer], [employer], or water [employer] threatened to shut off services in your [...] your living situation today? 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..] mouth daily. documented as of this encounter Consult Notes * Tara López M.D. - 02/12/2024 2:30 PM CDT RADIATION ONCOLOGY CONSULTATION SUBJECTIVE REFERRAL SOURCE Zhane Granados APRN, C.N.P. , Medical Oncology PRIMARY PROVIDER Ondina Chávez MD REASON FOR CONSULT Asked to see patient by Ms. Granados to render an opinion regarding radiation therapy options forher progressive metastatic melanoma to her right hip and T11 vertebral body. HISTORY OF PRESENT ILLNESS #1 Metastatic malignant melanoma Ms. Cota is a very pleasant 48 year old female diagnosed with widely metastatic malignant melanomaBRAF V600E mutant (no known primary) this last fall and started on Dabrafenib and Trametinib. She had SRS to her brain on October 25, 2023 and also had SRT to her femurs completed December 11, 2023. She presents now after being on ipilimumab and nivolumab with some progression on her most recent PET/CT from yesterday. Of note her brain MRI might show some progression and a new lesion in the left parietal lobe, she is having another brain MRI on February 27, 2024. Her oncologic history is as follows: Oncology History Melanoma Trunk (HCC) 04/2023 Other The patient developed left leg pain. 05/03/2023 Critical Imaging MRI of the left knee demonstrated osseous lesions within the distal femur, new compared to prior examination. Findings are concerning for malignancy. Sequelae of prior ACL sprain injury/disruption. Chondromalacia involving the patellofemoral compartment and medial femoral condyle, increased compared to prior exam. Increased edema within superolateral Hoffa's fat which can be seen with impingementand patellofemoral maltracking. 05/08/2023 Critical Imaging MRI Left Femur [facility] Interpretation Several 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 The largest is seen proximally extending off of the proximal [id number]. This involves the intertrochanteric left femurextending distally to the proximal/middle 3rd junction. Small lesion at the midshaft. There is a 3rd prominent lesion within the distal metadiaphysis measuring up to 5.6 cm in length with several small (subcentimeter) satellite nodules within the distal metaphysis. These lesions are all enhancing on the post gadolinium images. There is a prominent lesion within the proximal tibial diaphysis, which extends off of the proximal [id number]. 05/09/2023 Critical Imaging Chest X-ray Impression: 1. Suspicious right lower lung mass measuring up to 4.1 cm with a possible left scapular lytic lesion. Recommend CT chest for better characterization. 05/13/2023 Biopsy/Pathology [facility] Pathology Review FINAL DIAGNOSIS Left femur mass, biopsy ([id number]; 05/13/2023): Metastatic melanoma, diffusely positive for BRAF V600E on outside immunohistochemical studies. 05/15/2023 Critical Imaging PET/CT IMPRESSION: This patient with recently diagnosed metastatic carcinoma of unknown primary on femoralbone biopsy who presents for a staging exam: 1. Heterogeneous solid cystic hypermetabolic pelvic mass abutting the uterus and cecum. This is concerning for a primary tumor, possibly an adnexal mass. There is a smaller mass at the cecum which islikely a similar process. 2. Multiple lytic osseous [...] pelvis may be helpful for further characterization. 05/29/2023 Critical Imaging MRI brain demonstrated numerous small foci of abnormal intracranial enhancement, concerning for metastatic disease: right frontoparietal, right parietal, left inferior parietal lobule, left superior frontal gyrus, and left temporal lobe. Punctate enhancement along the right corpus callosum is too small to characterize as a metastasis vs vessel. Some of the lesions have mild associated edema without significant mass effect. 06/04/[address] Pérez Zuniga. Recommended starting therapy with a BRAF/MEK inhibitor combination that has penetrance to the brain. Start with full doses of dabrafenib + trametinib. 06/04/2023 - 01/03/2024 Biological/Targeted/Hormone Therapy Dabrafenib + trametinib. 08/08/[address] Abdomen Pelvis [facility] Interpretation IMPRESSION: 1. No evidence of cholangitis. 2. There is a new 13 x 20 mm nodule in the right lower lobe. This lesion has an irregular, ground glass border and contains an air bronchogram. Infection and metastatic disease are in the differential. 3. Interval increased size in multiple partially treated bone metastases. 08/19/2023 Critical Imaging PET-CT IMPRESSION: Interval treatment response in the previously seen widespread osseous metastases and dominant mass within the right lung base. Nothing for progressive disease. 08/21/2023 Critical Imaging MR brain demonstrated overall worsened exam compared to 05/29/2023 MRI. Multiple enhancing metastases in the cerebral hemispheres, in the left frontal lobe, left parietal lobe, right frontoparietal lobe, right parietal lobe, right pericallosal white matter, left frontal lobe, left temporal lobe, left lateral temporallobe. Largest lesion is in the left lateral temporal lobe measuring 9 mm and the smallest lesion isin the left frontal lobe measuring 3 mm. A left parietal lobe lesion and 3 mm left frontal lobe lesion are new since 05/29/2023 MRI, and remainder of the lesions were present in prior study but all have increased in size. 09/26/2023 Critical Imaging MR brain demonstrated mild further progression of several enhancing metastases in the brain since 08/21/2023. For example, a left frontal opercular lesion now measures 7 mm, previously 3 mm. A left frontoparietal lesion now measures 9 mm, previously 6 mm. A right cerebellar metastasis now measures 6 mm, previously punctate. 4 mm left cerebellar metastasis, previously punctate. Several other bilateral cerebral metastases appear stable to minimally larger than on 08/21/2023. There are at least 10brain parenchymal metastases in all. 09/26/[address] Zuniga. Plan to start nivolumab next week. Referral for SRS of the brain lesions. Hold the Dab/Tram for two days before and two days after SRS and then continue at full doses along with nivolumab. 09/30/2023 - 10/29/2023 Chemotherapy Nivolumab 480 mg every 4 weeks Start Date: 09/30/2023 09/30/2023 Other Neurological Surgery consultation with Drs. Cesar Grigsby and Ruben Au. 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 Given the patient's numerous (at least 10 lesions), it was felt that consideration of LINAC radiotherapy would be a good option. Referral to Radiation Oncology in [place]. 10/25/2023 - 10/25/2023 Radiation Therapy SRS to 15 brain metastases to a total dose of 20 Gy in 1 fraction. 11/25/2023 Critical Imaging PET/CT: (1) Recurrent intensely FDG avid osseous metastases. (2) Multifocal FDG uptake along the periphery of the left adnexal cystic lesion is also suspicious for recurrent disease. (3) Mildly FDG avid left chest wall lesion is indeterminant, correlate with direct visual inspection. (4) Intracranial disease is better evaluated on recent MR brain. Progression vs pseudo-progression? Unclear 11/26/2023 - Chemotherapy Nivolumab 1 mg/kg / Ipilimumab 3 mg/kg Start Date: 11/26/2023 12/04/2023 - 12/11/2023 Radiation Therapy SBRT to left humerus and proximal left femur to a total dose of 3600 cGy to each region in 3 fractions 2. SBRT to bilateral distal femurs to a total dose of 3600 cGy to each region in 3 fractions Radiation Therapy Treatment Details (12/04/2023 - 12/11/2023) Site: Bone Technique: SBRT Goal: Palliative Planned Treatment Start Date: 12/04/2023 01/04/2024 - Biological/Targeted/Hormone Therapy Started Binimetinib and Encorafenib 01/14/2024 Critical Imaging MRI Brain demonstrated: 1. Multiple intracranial metastases are decreased in size since 10/18/2023. 2. A metastasis along the left parietal lobe is increased in size. 3. There are apparent new metastases present in the left parietal lobe. 4. The presumed right frontal meningioma is stable since 05/29/2023. 02/11/2024 Critical Imaging PET/CT demonstrated: 1. Overall, there is progression of the FDG avid metastatic disease with increased uptake of a few osseous metastases and new/increased pulmonary and fe metastases, despite multiple of the osseousmetastases demonstrating decreased uptake including the radiated lesions [...] of the thyroid gland concerning for thyroiditis. INTERVAL HISTORY: The patient reports that she has pain in the mid/lower back after walking and occasionally when she wakes up in the morning. It is mild and she rates it a 1 on a 0-10 pain scale. She work up with some pain in her left arm this morning, but otherwise denies other back/bone pain, nausea/vomiting, focal weakness or numbness, or bowel/bladder incontinence. [place] She is now on Binimetinib and Encorafenib. The patient has a history of prior radiation therapy as outlined above. Their ECOG performance status is 1. REVIEW OF SYSTEMS Review of systems was negative except as documented above. ALLERGIES, MEDICATIONS, PAST MEDICAL HISTORY, PAST SURGICAL HISTORY, SOCIAL HISTORY AND FAMILY HISTORY PER [facility] EMR; These were reviewed. Pertinent or notable findings are the following: Melanoma as per HPI. OBJECTIVE BP 137/85 (BP Location: Left arm, Patient Position: Sitting, Cuff Size: Regular) Pulse 90 Temp 36.5 ??C (Temporal) Wt 90.4 kg BMI 35.89 kg/m?? PHYSICAL EXAMINATION General: Well-developed, well-nourished and in no apparent distress. Spine: There is no tenderness to palpation of the spine. Lungs: Clear to auscultation bilaterally. Heart: Regular rate and rhythm. Extremities: No clubbing, cyanosis, or edema. Neurologic: Strength is normal and symmetric in both upper and lower extremities. Gait is normal. DIAGNOSTICS I have reviewed the available imaging, operative and pathology reports as described above. 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 metastases #2 Dabrafenib and Trametinib initiated in May 2023 #3 Nivolumab initiated on September 30, 2023, Ipilimumab added on November 26, 2023 #4 Linac based stereotactic radiosurgery with 20 Gy in 1 fraction to 15 brain metastases, completedon October 25, 2023 #5 SBRT to left humerus and proximal left femur initiated December 04, 2023; anticipated completion dateDecember 11, 2023 #6 SBRT to bilateral distal femurs initiated December 05, 2023; anticipated completion date December 12, 2023 #7 Progression in the right ischium and T11 vertebral body, noted on PET/CT from January, We discussed the findings above and below in this note with the patient and her . We discussed her treatment alternatives for T11 and the right hip. There should not be overlap with prior RT, so I think I will offer her a single fraction to both of these sites with stereotactic body radiation therapy (SBRT). Our team approach was reviewed with the patient. We discussed the rationale, risks, side effects and palliative goals of radiation therapy. 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 We also discussed very small risks for spinal cord injury. Ms. Granados will be reaching out to our IR colleagues about vertebroplasty for T11. They understood and their questions were answered. She wished to proceed with treatment. We tentatively plan on delivering 2400 cGy tobin single fraction to the right ischium and T11 vertebral body starting when she returns from vacation, SaturdayFebruary 20. She knows warning symptoms and when to call us in the interim if needed. She will stay in town to get an MRI in treatment position for the thoracic spine on Wednesday February 14, 2024. I shared with them that if the MRI shows epidural disease that we don't anticipate that we might change to a 3 fraction radiation plan. We also discussed her brain MRI and that I will await the upcoming MRI on 02/27/2024. My thanks to Ms. Granados, Ankita, and Kyler for the opportunity to participate in this patient's care. EDUCATION: Ready to learn, no apparent learning barriers were identified; learning preferences include listening. Explained diagnosis and treatment plan; patient expressed understanding of the content. CONSENT: Discussed the risks, benefits, alternatives, and the necessity of other members of the healthcare team participating in the procedure. All questions answered and consent given. ADDENDUM: I called the patient and edited this report to change from T9 to T11. T11 is the vertebral body that is progressing and that we will treat with SBRT. I had incorrectly written T9 in this consult note. She understood and her questions were answered. She will have her SBRT tomorrow with . I personally spent 35 minutes in care of the patient today. Time includes both non face to face andface to face patient care. Signed by: Tara López M.D. 02/12/2024 4:16 PM CDT Radiation Oncology [facility] [address] [place] [address] documented in this encounter Miscellaneous Notes * Addendum Note - Tara López M.D. - 02/12/2024 2:30 PM CDTEncounter addended by: Tara López M.D. on: 02/20/2024 12:02 PM Actions taken: Clinical Note Signed documented in this encounter Plan of Treatment Upcoming Encounters Date Type Department Care Team (Late st Contact Info) Description 02/25/2024 10:00 AM CDT Clinical Communication Virtual Review in [place], [place] 200 [place] [address] 02/27/2024 7:30 AM CDT Appointment Department of Radiology, [facility] in [place], [place] [address] [place] [phone] Zhane Granados APRN, C.N.P. [address] [place] [phone] 02/27/2024 8:45 AM CDT Clinical Support Department of Palliative Care in [place], [place] [address] [place] [phone] Bereket Johnson APRN, C.N.P., D.N.P. [address] [place] [phone] 02/27/2024 9:45 AM CDT Clinical Support Department of Palliative Care in [address] [phone] Marija Olivas APRN, C.N.P., M.S.N. [address] [place] [phone] 02/27/2024 11:00 AM CDT Lab Department of Laboratory Medicine and Pathology, [facility], in [place], [place] [address] [place] [phone] Zhane Granados APRN, C.N.P. [address] [place] [phone] 02/27/2024 1:00 PM CDT Office Visit Department of Oncology in [address] [phone] Pérez Zuniga M.D., Ph.D. [address] [place] [phone] 02/27/2024 1:45 PM CDT Infusion Department of Oncology in [place], [place] [address] [place] [phone] Zhane Granados APRN, C.N.P. [address] [place] [phone] 03/17/2024 7:00 AM CDT Clinical Communication Virtual Review in [place], [place] 200 [place] [address] 03/19/2024 10:45 AM CDT Clinical Support Department of Palliative Care in [address] [phone] Marija Olivas APRN, C.N.P., M.S.N. [address] [place] [phone] 03/19/2024 11:30 AM CDT Office Visit Department of Palliative Care in [place], [place] [address] [place] [phone] Valentine Kelsey M.D., M.S. [address] [place] [phone] 03/19/2024 11:40 AM CDT Lab Department of Laboratory Medicine and Pathology, [facility] in [place], [place] [address] [place] [phone] Zhane Granados APRN, C.N.P. [address] [place] [phone] 03/19/2024 1:40 PM CDT Office Visit Department of Oncology in [place], [place] [address] [place] [phone] Pérez Zuniga M.D., Ph.D. [address] [place] [phone] 03/19/2024 2:45 PM CDT Infusion Department of Oncology in [place], [place] [address] [place] [phone] Zhane Granados APRN, C.N.P. [address] [place] [phone] 03/24/2024 3:00 PM CDT Clinical Communication Virtual Review in [place], [place] 200 [place] [phone] 03/26/2024 7:45 AM CDT Appointment Department of Radiology, [facility] in [address] [phone] Zhane Granados APRN, C.N.P. [address] [place] [phone] 03/26/2024 3:20 PM CDT Office Visit Department of Oncology in [address] [phone] Pérez Zuniga M.D., Ph.D. [address] [place] [phone] Scheduled Referrals Name Type Priority Associated Diagnoses Order Schedule Radiation Oncology - Palliative / metastatic consult (clinic) Outpatient Referral Routine Melanoma Trunk (HCC) Once for 1 Occurrences starting 02/12/2024 until 02/12/2024 documented as of this encounter Results * MR Thoracic Spine without and with IV Contrast (02/14/2024 10:23 AM CDT) Anatomical Region Laterality Modality Thoracic Spine, Neuroradiolo gy RST LOS, Neuroradiology NICK PONCE, Neuroradiology CINTHYA PONCE N/A Magnetic Resonance Impressions 02/14/2024 11:18 AM [...] documented in this encounter Visit Diagnoses Diagnosis Secondary Malignant Neoplasm Bone (HCC)- Primary 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
--- OUTSIDE RECORDS SUMMARY | 2024-02-21 15:05 | XMS_ITS ---
Author Organization [facility] Address [address] [place] [address] Care Team Providers Care Liquid Center Assembler Name Role Phone Elsewhere, Pcp Primary Care Provider Unavailabl e Active Problems Problem Noted Date Diagnosed Date Secondary Malignant Neoplasm Bone 08/23/2023 Secondary Malignant Neoplasm Brain 08/23/2023 Sepsis 08/08/2023 Melanoma Trunk 06/04/2023 Current Oncology Plans Nivolumab 1 mg/kg / Ipilimumab 3 mg/kg* Plan Start Date:11/26/2023 Plan Provider:Pérez Zuniga M.D., Ph.D. Linked Problems Melanoma Trunk (HCC)Secondar y Malignant Neoplasm Bone (HCC)Secondary Malignant Neoplasm Brain (HCC) Treatment Medications Current Day (Day 1 , Cycle 5 - Planned for 02/19/2024) Next Day (Day 1, Cycle 6 - Planned for 03/18/2024) ipilimumab (Yervoy) IVPB in 100 mL solutionnivolumab (Opdivo)nivolumab (Opdivo) IVPB in 50 mL (Opdivo) nivolumab 480 mg in NaCl 0.9% 148 mL IVPB (Opdivo) nivolumab 480 mg in NaCl 0.9% 148 mL IVPB (Opdivo) Vascular Access Patency - Peripheral Intravenous Catheter and Rapid Infusion Catheter* Plan Start Date:02/04/2024 Linked Problems Melanoma Trunk (HCC) Treatment Medications No medications scheduled. Past Plans Flushes/Hydration Plan Name Start Date Discontinue Date Treatment Medications Discontinue Reason Plan Provider Vascular Access Patency - Peripheral Intravenous Catheter and Rapid Infusion Catheter 09/30/2023 02/04/2024 No medications scheduled. Unlisted - Hematology / Oncology Treatment 1 Plan Name Start Date Discontinue Date Treatment Medications Discontinue Reason Plan Provider Cycles Nivolumab 480 mg every 4 weeks 09/17/2023 11/26/2023 nivolumab (Opdivo)nivolu mab (Opdivo) 480 MG IVPB in NaCl 0.9% 100 mL (Opdivo) Change in Level of Care Zhane Granados APRN, C.N.P. 2 of 4 cycles started Radiation Treatments * Plan Last Treated On Elapsed Days Fractions Treated Prescribed Fraction Dose Prescribed Total Dose [id number] 02/21/2024 0 1 of 1 2,400 cGy 2,400 cGy [id number] 02/21/2024 0 1 of 1 2,400 cGy 2,400 cGy [id number] 12/12/2023 8 3 of 3 1,200 cGy 3,600 cG y [id number] 12/12/2023 8 3 of 3 1,200 cGy 3,600 cG y [id number] 12/11/2023 7 3 of 3 1,200 cGy 3,600 cGy [id number] 12/11/2023 7 3 of 3 1,200 cGy 3,600 cGy [id number] 10/25/2023 0 1 of 1 2,000 cGy 2,000 cG y Reference Point Last Treated On Elapsed Days Session Dose Total Dose [id number] 02/21/2024 0 2,400 cGy 2,400 cG y [id number] 02/21/2024 0 2,400 cGy 2,400 cGy [id number] LFemDis 12/12/2023 8 1,200 cGy 3,600 cG y [id number] RFemDis 12/12/2023 8 1,200 cGy 3,600 cG y [id number] HumL 12/11/2023 7 1,200 cGy 3,600 cGy [id number] 12/11/2023 7 1,200 cGy 3,600 cG y [id number] 10/25/2023 0 2,000 cGy 2,000 cGy
--- OUTSIDE RECORDS SUMMARY | 2024-02-21 15:05 | XMS_ITS | Encounter Summary ---
Author Organization [facility] Address [address] [place] [address] Care Team Providers Care Solar Panel Technician Name Role Phone Elsewhere, Pcp Primary Care Provider Unavailabl e Reason for Referral * Radiation Therapy (Routine) - Closed Specialty Diagnoses / Procedures Referred By Contac t Referred To Contact Diagnoses Secondary Malignant Neoplasm Bone (HCC) Procedures Initial Rad Onc Treatment Planning CT Simulation without IV Contrast Tara López M.D. 200 [place] [address] [facility] Region Referral ID Status Reason Start Date Expiration Date Visits Re quested Visits Authorized [id number] Closed 02/12/2024 02/11/2025 1 1 Reason for Visit * Radiation Therapy (Routine) - Closed Specialty Diagnoses / Procedures Referred By Mikki feliciano Referred To Contact Diagnoses Secondary Malignant Neoplasm Bone (HCC) Procedures Initial Rad Onc Treatment Planning CT Simulation without IV Contrast Tara López M.D. [address] [place] [address] [facility] Region Referral ID Status Reason Start Date Expiration Date Visits Re quested Visits Authorized [id number] Closed 02/12/2024 02/11/2025 1 1 Encounter Details Date Type Department Care Team (Latest Contact Info) Description 02/12/2024 2:59 PM CDT - 02/12/2024 4:18 PM CDT Hospital Encounter Department of Radiation Oncology in [place], [place] [address] [place] [address] Tara López M.D. [address] [place] [address] Secondary Malignant Neoplasm Bone (HCC) Social History Tobacco Use Types Packs/Day Years Used Date Smoking Tobacco: Never Passive Smoke Exposure: Never Smokeless Tobacco: Never Alcohol Use Standard Drinks/Week Comments Not Currently 0 (1 standard drink = 0.6 oz pur e alcohol) Occasional C Utilities Answer Date Recorded In the past 12 months has th e [employer], gas, oil, or water [employer] threatened to shut off services in your [...] living situation today? I have a [facility] place to live 07/10/2023 Sex and Gender Information Value Date Recorded Sex Assigned at Female 05/31/2023 8:26 AM FARMWORKER CRANBERRY Gender Identity Female 05/31/2023 8:26 AM FARMWORKER CRANBERRY Sexual Orientation Straight 05/31/2023 8: 26 AM FARMWORKER CRANBERRY documented as of this encounter Medications at [...] mouth daily. documented as of this encounter Procedure Notes * Latasha Kelsey, RTT - 02/12/2024 3:30 PM CDTAssociated Order(s): Initial Rad Onc Treatment Planning CT Simulation without IV Contrast Pre-Procedure Diagnose(s): Secondary Malignant Neoplasm Bone (HCC) Post-Procedure Diagnose(s): Secondary Malignant Neoplasm Bone (HCC) Initial Rad Onc Treatment Planning CT Simulation without IV Contrast Performed by: Tara López M.D. Authorized by: Tara López M.D. Simulation was performed under physician supervision based on physician order in preparation for radiation therapy. Physician was immediately available to provide assistance and direction throughout the procedure. Written consent for treatment was completed or confirmed. The patient was appropriately identified and placed in the treatment position using the necessary immobilization to ensure a reproducible treatment position. Reference hensley were placed to facilitate marking of isocenter. Area scanned:Chest, Abdomen, and Pelvis Contrast used for the simulation procedure: None Patient position: Head first supine and arms up Custom immobilization: Vac-bennett Motion management: None Bolus: No CT guidance: Following positioning of the patient, a series of slices was obtained to be utilized in treatment planning. CT images were transferred to the Eclipse treatment planning system, after a reference isocenter was determined and marked. Segmentation and treatment planning will take place prior to treatment delivery. Patient set up and imaging was appropriate and completed without incident. Clerical Proofreader use:No Associated attestation - Tara López M.D. - 02/12/2024 4:18 PM CDT I was present during all critical and marcial portions of the procedure(s) and immediately available [facility] the entire duration. See note for details. documented in this encounter Plan of Treatment Upcoming Encounters Date Type Department Care Team (Late st Contact Info) Description 02/25/2024 10:00 AM CDT Clinical Communication Virtual Review in [place], [place] [address] [place] [address] 02/27/2024 7:30 AM CDT Appointment Department of Radiology, [facility] in [place], [place] [address] [place] [phone] Zhane Granados APRN, C.N.P. [address] [place] [phone] 02/27/2024 8:45 AM CDT Clinical Support Department of Palliative Care in [address] [phone] Bereket Johnson APRN, C.N.P., D.N.P. [address] [place] [phone] 02/27/2024 9:45 AM CDT Clinical Support Department of Palliative Care in [address] [phone] Marija Olivas APRN, C.N.P., M.S.N. [address] [place] [phone] 02/27/2024 11:00 AM CDT Lab Department of Laboratory Medicine and Pathology, [facility], in [place], [place] [address] [place] [phone] Zhane Granados APRN, C.N.P. [address] [place] [phone] 02/27/2024 1:00 PM CDT Office Visit Department of Oncology in [place], [place] [address] [place] [phone] Pérez Zuniga M.D., Ph.D. [address] [place] [phone] 02/27/2024 1:45 PM CDT Infusion Department of Oncology in [place], [place] [address] [place] [phone] Zhane Granados APRN, C.N.P. [address] [place] [phone] 03/17/2024 7:00 AM CDT Clinical Communication Virtual Review in [place], [place] [address] [place] [address] 03/19/2024 10:45 AM CDT Clinical Support Department of Palliative Care in [place], [place] [address] [place] [phone] Marija Olivas APRN, C.N.P., M.S.N. [address] [place] [phone] 03/19/2024 11:30 AM CDT Office Visit Department of Palliative Care in [place], [place] [address] [place] [phone] Valentine Kelsey M.D., M.S. [address] [place] [phone] 03/19/2024 11:40 AM CDT Lab Department of Laboratory Medicine and Pathology, [facility] in [place], [place] [address] [place] [phone] Zhane Grnaados APRN, C.N.P. [address] [place] [phone] 03/19/2024 1:40 PM CDT Office Visit Department of Oncology in [place], [place] [address] [place] [phone] Pérez Zuniga M.D., Ph.D. [address] [place] [phone] 03/19/2024 2:45 PM CDT Infusion Department of Oncology in [place], [place] [address] [place] [phone] Zhane Granados APRN, C.N.P. [address] [place] [phone] 03/24/2024 3:00 PM CDT Clinical Communication Virtual Review in [place], [place] [address] [place] [address] 03/26/2024 7:45 AM CDT Appointment Department of Radiology, [facility] in [address] [phone] Zhane Granados APRN, C.N.P. [address] [place] [phone] 03/26/2024 3:20 PM CDT Office Visit Department of Oncology in [address] [phone] Pérez Zuniga M.D., Ph.D. [address] [place] [phone] documented as of this encounter Procedures Procedure Name Priority Date/Time Associated Diagnosis Comments INITIAL RAD ONC TREATMENT PLANNING CT SIMULATION Routine 02/12/2024 3:30 PM CDT Secondary Malignant Neoplasm Bone (HCC) documented in this encounter Results * Initial Rad Onc Treatment Planning CT Simulation without IV Contrast (02/12/2024 3:30 PM CDT) Narrative MAHESH COCHRAN - 02/12/2024 3:30 PM CDT Latasha Kelsey, RTT ? 02/12/2024 ??3:41 PM Initial Rad Onc Treatment Planning CT Simulation without IV Contrast Performed by: Tara López M.D. Authorized by: Tara López M.D. ?? Tara López M.D. RADIATION ONCOLOG Y ORDERABLES MAHESH dumont documented in this encounter Visit Diagnoses Diagnosis Secondary Malignant Neoplasm Bone (HCC) documented in this encounter Additional Health Concerns Infection Onset Date Last Indicated Resolved Time Protective Environment 06/04/2023 06/04/2023 documented as of this encounter Care Teams Solar Panel Technician Relationship Specialty Start Date End Date Elsewhere, Pcp PCP - General Family Medicine 06/17/23 documented as of this encounter
--- OUTSIDE RECORDS SUMMARY | 2024-02-21 15:05 | XMS_ITS | Encounter Summary ---
Author Organization [facility] Address [address] [place] [address] Care Team Providers Care Community Relations Police Lieutenant Name Role Phone Elsewhere, Pcp Primary Care Provider Unavailabl e Reason for Referral * Radiation Therapy (Routine) - Authorized Specialty Diagnoses / Procedures Referred By Contac t Referred To Contact Diagnoses Secondary Malignant Neoplasm Bone (HCC) Procedures Management Visit Tara López M.D. [address] [place] [address] [facility] Referral ID Status Reason Start Date Expiration Date V isits Requested Visits Authorized [id number] Authorized 02/12/2024 02/11/2025 10 10 * Radiation Therapy (Routine) - Closed Specialty Diagnoses / Procedures Referred By Mikki feliciano Referred To Contact Diagnoses Secondary Malignant Neoplasm Bone (HCC) Procedures Initial Rad Onc Treatment Planning CT Simulation without IV Contrast Tara López M.D. [address] [place] [address] [facility] Region Referral ID Status Reason Start Date Expiration Date Visits Re quested Visits Authorized [id number] Closed 02/12/2024 02/11/2025 1 1 * Radiation Therapy (Routine) - Authorized Specialty Diagnoses / Procedures Referred By Mikki feliciano Referred To Contact Diagnoses Secondary Malignant Neoplasm Bone (HCC) Procedures Prior Auth Rad Tx DE STEREOTACTIC BODY RADTN DEL DE IMRT RADIOTHERAPY PLAN SRS Tara López M.D. [address] [place] [address] [facility] [address] [place] [address] Referral ID Status Reason Start Date Expiration Date V isits Requested Visits Authorized [id number] Authorized 02/20/2024 07/14/2024 2 2 Encounter Details Date Type Department Care Team (Late st Contact Info) Description 02/12/2024 Orders Only Department of Radiation Oncology in [place], [place] [address] [place] [phone] Tara López M.D. [address] [place] [phone] Secondary Malignant Neoplasm Bone (HCC) (Primary Dx) Social History Tobacco Use Types Packs/Day Years Used Date Smoking Tobacco: Never Passive Smoke Exposure: Never Smokeless Tobacco: Never Alcohol Use Standard Drinks/Week Comments Not Currently 0 (1 standard drink = 0.6 oz pur e alcohol) Occasional [facility] Utilities Answer Date Recorded In the past 12 months has [employer], gas, oil, or water Physician Practice [employer] threatened to shut off services in your [...] the money to buy more. Never true 12/27/20 23 Within the past 12 months, t [...] your living situation today? I have a [facility] place to live 07/10/2023 Sex and Gender Information Value Date Recorded Sex Assigned at Female 05/31/2023 8:26 AM ADMISSIONS DIRECTOR Gender Identity Female 05/31/2023 8:26 AM ADMISSIONS DIRECTOR Sexual Orientation Straight 05/31/2023 8: 26 AM ADMISSIONS DIRECTOR documented as of this encounter Plan of Treatment Upcoming Encounters Date Type Department Care Team (Late st Contact Info) Description 02/25/2024 10:00 AM CDT Clinical Communication Virtual Review in [place], [place] [address] [place] [address] 02/27/2024 7:30 AM CDT Appointment Department of Radiology, [facility] in [place], [place] [address] [place] [phone] Zhane Granados APRN, C.N.P. [address] [place] [phone] 02/27/2024 8:45 AM CDT Clinical Support Department of Palliative Care in [place], [place] [address] [place] [phone] Bereket Johnson APRN, C.N.P., D.N.P. [address] [place] [phone] 02/27/2024 9:45 AM CDT Clinical Support Department of Palliative Care in [place], [place] [address] [place] [phone] Marija Olivas APRN, Harsha.N.P., M.S.N. [address] [place] [phone] 02/27/2024 11:00 AM CDT Lab Department of Laboratory Medicine and Pathology, [facility] in [place], [place] [address] [place] [phone] Zhane Granados APRN, C.N.P. [address] [place] [phone] 02/27/2024 1:00 PM CDT Office Visit Department of Oncology in [place], [place] [address] [place] [phone] Pérez Zuniga M.D., Ph.D. [address] [place] [phone] 02/27/2024 1:45 PM CDT Infusion Department of Oncology in [address] [phone] Zhane Granados APRN, C.N.P. [address] [place] [phone] 03/17/2024 7:00 AM CDT Clinical Communication Virtual Review in [place], [place] [address] [place] [address] 03/19/2024 10:45 AM CDT Clinical Support Department of Palliative Care in [place], [place] [address] [place] [phone] Marija Olivas APRN, C.N.P., M.S.N. [address] [place] [phone] 03/19/2024 11:30 AM CDT Office Visit Department of Palliative Care in [place], [place] [address] [place] [phone] Valentine Kelsey M.D., M.S. [address] [place] [phone] 03/19/2024 11:40 AM CDT Lab Department of Laboratory Medicine and Pathology, [facility] in [place], [place] [address] [place] [phone] Zhane Granados APRN, C.N.P. [address] [place] [phone] 03/19/2024 1:40 PM CDT Office Visit Department of Oncology in [address] [address] Pérez Zuniga M.D., Ph.D. [address] [place] [phone] 03/19/2024 2:45 PM CDT Infusion Department of Oncology in [address] [phone] Zhane Granados APRN, C.N.P. [address] [place] [phone] 03/24/2024 3:00 PM CDT Clinical Communication Virtual Review in [place], [place] [address] [place] [address] 03/26/2024 7:45 AM CDT Appointment Department of Radiology, [facility] in [place], [place] [address] [place] [phone] Zhaen Granados APRN, C.N.P. [address] [place] [phone] 03/26/2024 3:20 PM CDT Office Visit Department of Oncology in [place], [place] [address] [place] [phone] Pérez Zuniga M.D., Ph.D. [address] [place] [phone] Scheduled Orders Name Type Priority Associated Diagnoses Order Schedule Prior Auth Rad Tx Radiation Oncology Routine Secondary Malignant Neoplasm Bone (HCC) Ordered: 02/12/2024 Management Visit Radiation Oncology Routine Secondary Malignant Neoplasm Bone (HCC) 10 Occurrences starting 02/12/2024 until 05/14/2025 documented as of this encounter Results * Initial Rad Onc [...] RADIATION ONCOLOG Y ORDERABLES MAHESH COCHRAN na documented in this encounter Visit Diagnoses Diagnosis Secondary Malignant Neoplasm Bone (HCC)- Primary Secondary Malignant Neoplasm Bone (HCC) documented in this encounter Additional Health Concerns Infection Onset Date Last Indicated Resolved Time Protective Environment 06/04/2023 06/04/2023 documented as of this encounter Care Teams Community Relations Police Lieutenant Relationship Specialty Start Date End Date Elsewhere, Pcp PCP - General Family Medicine 06/17/23 documented as of this encounter
--- OUTSIDE RECORDS SUMMARY | 2024-02-21 15:05 | XMS_ITS | Encounter Summary ---
Author Organization [facility] Address [address] [place] [address] Care Team Providers Care Boat Dock Operator Name Role Phone Elsewhere, Pcp Primary Care Provider Unavailabl e Encounter Details Date Type Department Care Team (Late st Contact Info) Description 02/18/2024 Clinical Communication Department of Oncology in [place], [place] [address] [place] [address] Mona Perez, R.N. Social History Tobacco Use Types Packs/Day Years Used Date Smoking Tobacco: Never Passive Smoke Exposure: Never Smokeless Tobacco: Never Alcohol Use Standard Drinks/Week Comments Not Currently 0 (1 standard drink = 0.6 oz pur e alcohol) Occasional [facility] Utilities Answer Date Recorded In the past 12 months has [employer], gas, oil, or water [employer] threatened to shut off services in your [...] your living situation today? I have a [facility] place to live 07/10/2023 Sex and Gender Information Value Date Recorded Sex Assigned at Female 05/31/2023 8:26 AM PLANT CUSTODIAN Gender Identity Female 05/31/2023 8:26 AM PLANT CUSTODIAN Sexual Orientation Straight 05/31/2023 8: 26 AM PLANT CUSTODIAN documented as of this encounter Miscellaneous Notes * Telephone Encounter - Mona Perez, RSantoshN. - 02/18/2024 1:28 PM CDT ASSESSMENT Spoke with Ms. Cota with Zhane Granados APRN, CNP, she reports that she has been having fevers Saturday through today. She reports her T-max 103.8 F. She states that she continues to take full dosebinimetinib and encorafenib, 1.2 mg colchicine and 1000 mg of Tylenol every 6 hours. She notes thatlast night was the longest time for her fever to break and this morning she has noticed red and bumpy rash on the back of both hands. She denies any itchiness, pain, or the use of new soap or lotions. She was able to send a picture of her rash via portal and Zhane REYNOLDS CNP, would like her to monitor it as it looks like a heat rash vs. An encorafenib/binimetinib drug induced rash. She did inform Ms. Cota that the encorafenib/binimetinib rash typically looks like acneform rash that starts on theface/chest. Ms. Cota is aware to let us know she is having any new changes. She currently is in [facility] in [place], in which she has very poor service, and will head back home on . PLAN GAIL Phelan CNP, would like her to stop encorafenib/binimetinib and do not resume until she is fever free for 24 hours without taking any antipyretics such as Tylenol. Zhane would additionally like her to take a Covid test, and if her fever goes above 104 to go to the nearest ED. She can continue totake the colchicine. Disposition/Recommendation: recommended continue engagement in self-management activities. Information/Education: patient/caller able to teach back. Caller agreeable to plan of care: yes. The following references were used: nursing clinical judgement and provider Zhane Granados APRN, CNP . documented in this encounter Plan of Treatment Upcoming Encounters Date Type Department Care Team (Late st Contact Info) Description 02/25/2024 10:00 AM CDT Clinical Communication Virtual Review in [address] [phone] 02/27/2024 7:30 AM CDT Appointment Department of Radiology, [facility] in [address] [phone] Zhane Granados APRN, C.N.P. [address] [place] [phone] 02/27/2024 8:45 AM CDT Clinical Support Department of Palliative Care in [address] [phone] Bereket Johnson APRN, C.N.P., D.N.P. [address] [place] [phone] 02/27/2024 9:45 AM CDT Clinical Support Department of Palliative Care in [place], [place] [address] [place] [phone] Marija Olivas APRN, C.N.P., M.S.N. [address] [place] [phone] 02/27/2024 11:00 AM CDT Lab Department of Laboratory Medicine and Pathology, [facility] in [place], [place] [address] [place] [phone] Zhane Granados APRN, C.N.P. [address] [place] [phone] 02/27/2024 1:00 PM CDT Office Visit Department of Oncology in [place], [place] [address] [place] [phone] Pérez Zuniga M.D., Ph.D. [address] [place] [phone] 02/27/2024 1:45 PM CDT Infusion Department of Oncology in [place], [place] [address] [place] [phone] Zhane Granados APRN, C.N.P. [address] [place] [phone] 03/17/2024 7:00 AM CDT Clinical Communication Virtual Review in [place], [place] [address] [place] [address] 03/19/2024 10:45 AM CDT Clinical Support Department of Palliative Care in [address] [phone] Marija Olivas APRN, C.N.P., M.S.N. [address] [place] [phone] 03/19/2024 11:30 AM CDT Office Visit Department of Palliative Care in [place], [place] [address] [place] [phone] Valentine Kelsey M.D., M.S. [address] [place] [phone] 03/19/2024 11:40 AM CDT Lab Department of Laboratory Medicine and Pathology, [facility] in [place], [place] [address] [place] [phone] Zhane Granados APRN, C.N.P. [address] [place] [phone] 03/19/2024 1:40 PM CDT Office Visit Department of Oncology in [place], [place] [address] [place] [phone] Pérez Zuniga M.D., Ph.D. [address] [place] [phone] 03/19/2024 2:45 PM CDT Infusion Department of Oncology in [place], [place] [address] [place] [phone] Zhane Granados APRN, C.N.P. [address] [place] [phone] 03/24/2024 3:00 PM CDT Clinical Communication Virtual Review in [place], [place] [address] [place] [address] 03/26/2024 7:45 AM CDT Appointment Department of Radiology, [facility] in [place], [place] [address] [place] [phone] Zhane Granados APRN, C.N.P. [address] [place] [phone] 03/26/2024 3:20 PM CDT Office Visit Department of Oncology in [place], [place] [address] [place] [address] Pérez Zuniga M.D., Ph.D. [address] [place] [address] documented as of this encounter Visit Diagnoses Not on filedocumented in this encounter Additional Health Concerns Infection Onset Date Last Indicated Resolved Time Protective Environment 06/04/2023 06/04/2023 documented as of this encounter Care Teams Boat Dock Operator Relationship Specialty Start Date End Date Elsewhere, Pcp PCP - General Family Medicine 06/17/23 documented as of this encounter
--- OUTSIDE RECORDS SUMMARY | 2024-02-21 15:06 | XMS_ITS | Encounter Summary ---
Author Organization [facility] Address [address] [place] [phone] Care Team Providers Care Cnc Service Engineer Name Role Phone Elsewhere, Pcp Primary Care Provider Unavailabl e Reason for Referral * Outpatient (Routine) - Authorized Specialty Diagnoses / Procedures Referred By Mikki t Referred To Contact Oncology Zhane Garnados APRN, C.N.P. [address] [place] [phone] Pérez Zuniga M.D., Ph.D. [address] [place] [phone] Referral ID Status Reason Start Date Expiration Date V isits Requested Visits Authorized [id number] Authorized 02/12/2024 08/13/2025 1 1 Scheduling Instructions Efrain only, I'm out of town. 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 [address] [place] [phone] [facility] Referral ID Status Reason Start Date Expiration Date V isits Requested Visits Authorized [id number] Authorized 02/12/2024 02/11/2025 1 1 Reason for Visit * Outpatient (Routine) - Closed Specialty Diagnoses / Procedures Referred By Mikki feliciano Referred To Contact Oncology Zhane Granados APRN, C.N.P. [address] [place] [phone] [facility] Referral ID Status Reason Start Date Expiration Date Visits Re quested Visits Authorized [id number] Closed 01/14/2024 07/15/2025 1 1 Encounter Details Date Type Department Care Team (Late st Contact Info) Description 02/11/2024 3:40 PM CDT Office Visit Department of Oncology in [place], [place] [address] [place] [phone] Zhane Granados APRN, C.N.P. [address] [place] [phone] Melanoma Trunk (HCC) (Primary Dx); Secondary Malignant Neoplasm Bone (HCC); Secondary Malignant Neoplasm Brain (HCC) Social History Tobacco Use Types Packs/Day Years Used Date Smoking Tobacco: Never Passive Smoke Exposure: Never Smokeless Tobacco: Never Alcohol Use Standard Drinks/Week Comments Not Currently 0 (1 standard drink = 0.6 oz pur e alcohol) Occasional [employer] Utilities Answer Date Recorded In the past 12 months has [employer], gas, oil, or water [employer] threatened to shut off services in your [...] your living situation today? I have a [facility] place to live 07/10/2023 Sex and Gender Information Value Date Recorded Sex Assigned at Female 05/31/2023 8:26 AM ORNAMENT MAKER HAND Gender Identity Female 05/31/2023 8:26 AM ORNAMENT MAKER HAND Sexual Orientation Straight 05/31/2023 8: 26 AM ORNAMENT MAKER HAND documented as of this encounter Last Filed Vital Signs Vital Sign Reading Time Taken Comments Blood Pressure 134/84 02/11/2024 3:29 PM CDT Pulse 90 02/11/2024 3:29 PM CDT Temperature 37 ??C (98.6 ??F) 02/11/2024 3:29 PM CDT Respiratory Rate 16 02/11/2024 3:29 PM CDT Oxygen Saturation 99% 02/11/2024 3:29 PM CDT Inhaled Oxygen Concentration - - Weight 91.2 kg (201 lb 1 oz) 02/11/2024 3:29 PM CDT Height 158.7 cm (5' 2.48) 02/11/2024 3:29 PM CD T Body Mass Index 36.21 02/11/2024 3:29 PM CDT documented in this encounter Progress Notes * Zhane Granados APRN, C.N.P. - 02/11/2024 3:40 PM CDT SUBJECTIVE CHIEF COMPLAINT/PURPOSE OF VISIT: Metastatic BRAF mutant melanoma Collaborating provider today is Dr. Pérez Zuniga Primary collaborating provider is Dr. 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 05/08/2023 Critical Imaging MRI Left Femur [facility] Interpretation Several 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 The largest is seen proximally extending off of the proximal [id number]. This involves the intertrochanteric left femurextending distally [...] diaphysis, which extends off of the proximal yfgmp-[id number]-orpi. 05/09/2023 Critical Imaging Chest X-ray Impression: 1. Suspicious right lower lung mass measuring up to 4.1 cm with a possible left scapular lytic lesion. Recommend CT chest for better characterization. 05/13/2023 Biopsy/Pathology [facility] Pathology Review FINAL DIAGNOSIS Left femur mass, biopsy ([id number]; 05/13/2023): Metastatic melanoma, diffusely positive for BRAF [...] doses of dabrafenib + trametinib. 06/04/2023 - Biological/Targeted/Hormone Therapy Dabrafenib + trametinib. 08/08/[address] Abdomen Pelvis [facility] Interpretation IMPRESSION: 1. No evidence of cholangitis. [...] Au. The patient was asymptomatic from her DIRECTOR OF CRITICAL CARE disease. Given the patient's numerous (at least 10 lesions), it was felt that consideration of LINAC radiotherapy would be a good option. Referral to Radiation Oncology in [place]. 10/25/2023 - 10/25/2023 Radiation Therapy SRS to [...] Goal: Palliative Planned Treatment Start Date: 12/04/2023 Interval history: Ms. Cota returns for follow-up. Overall she states she is feeling quite well. When questioned the only back pain she has is after she has taken a long walk. She has not noticed any weakness or otherpain. ECOG performance status is 0. Past Medical/Surgical History: Past Medical History: Diagnosis Date Hypertension NOS 07/2020 Melanoma Skin (HCC) 05/24/23 Tumor Eye Benign Left 1995 Past Surgical History: Procedure Laterality Date EYE SURGERY TONSILLECTOMY 1995 ROS: As noted above otherwise negative noncontributory I reviewed the Medications, Allergies, Past Medical History, Social History, and Family History. OBJECTIVE VITAL SIGNS: Vitals: 02/11/24 1529 BP: 134/84 BP Location: Left arm Patient Position: Sitting Cuff Size: Regular Pulse: 90 Resp: 16 Temp: 37 ??C TempSrc: Tympanic SpO2: 99% Weight: 91.2 kg Height: 158.7 cm No data recorded PHYSICAL EXAM: General: This is a well-appearing female who appears their stated age in no acute distress. ASSESSMENT / PLAN #1 Metastatic BRAF mutant melanoma Mrs. Cota returns today after having undergone full restaging with PET scan. She appears to have had a mixed response. I have spoken with the radiologist who does feel there are a few new pulmonary nodules, as well as a couple of lymph nodes. Her lesion at T11 has progressed and caused a compression fracture. There was also a lesion at the right pelvis that has mildly progressed. Other lesions have decreased. Given that she has had break periods in her oral therapy up until a few weeks ago, aswell as she just finished induction therapy with ipilimumab/nivolumab, we will give her the benefitof the doubt and continue with therapy. We will plan to check with our radiation oncology colleagues in [place] about initiating radiation to the T11, and right pelvis. I suspect she will probablyneed a vertebroplasty after completing radiation to T11. She would prefer to do radiation in [place]. We will plan to reimage in 6 weeks' time. If she is further progression, then we would switch to chemo immunotherapy with paclitaxel/carboplatin/pembrolizumab. Patient is agreeable to this plan. PATIENT EDUCATION Ready to learn, no apparent learning barriers were identified; learning preferences include listening. Explained diagnosis and treatment plan; patient expressed understanding of the content. ADMINISTRATIVE BILLING I personally spent over half of a total 30 minutes face to face with the patient in counseling and discussion and/or coordination of care as described above. documented in this encounter Plan of Treatment Upcoming Encounters Date Type Department Care Team (Late st Contact Info) Description 02/25/2024 10:00 AM CDT Clinical Communication Virtual Review in [address] [phone] 02/27/2024 7:30 AM CDT Appointment Department of Radiology, [facility] in [address] [phone] Zhane Granados APRN, C.N.P. [address] [place] [phone] 02/27/2024 8:45 AM CDT Clinical Support Department of Palliative Care in [address] [phone] Bereket Johnson APRN, C.N.P., D.N.P. [address] [place] [phone] 02/27/2024 9:45 AM CDT Clinical Support Department of Palliative Care in [address] [phone] Marija Olivas APRN, C.N.P., M.S.N. [address] [place] [phone] 02/27/2024 11:00 AM CDT Lab Department of Laboratory Medicine and Pathology, [facility] in [address] [phone] Zhane Granados APRN, C.N.P. [address] [place] [phone] 02/27/2024 1:00 PM CDT Office Visit Department of Oncology in [place], [place] [address] [place] [phone] Pérez Zuniga M.D., Ph.D. [address] [place] [phone] 02/27/2024 1:45 PM CDT Infusion Department of Oncology in [place], [place] [address] [place] [phone] Zhane Granados APRN, C.N.P. [address] [place] [phone] 03/17/2024 7:00 AM CDT Clinical Communication Virtual Review in [place], [place] 200 [place] [phone] 03/19/2024 10:45 AM CDT Clinical Support Department of Palliative Care in [address] [phone] Marija Olivas APRN, C.N.P., M.S.N. [address] [place] [phone] 03/19/2024 11:30 AM CDT Office Visit Department of Palliative Care in [address] [phone] Valentine Kelsey M.D., M.S. [address] [place] [phone] 03/19/2024 11:40 AM CDT Lab Department of Laboratory Medicine and Pathology, [facility], in [address] [phone] Zhane Granados APRN, C.N.P. [address] [place] [phone] 03/19/2024 1:40 PM CDT Office Visit Department of Oncology in [place], [place] [address] [place] [phone] Pérez Zuniga M.D., Ph.D. [address] [place] [phone] 03/19/2024 2:45 PM CDT Infusion Department of Oncology in [place], [place] [address] [place] [phone] Zhane Granados APRN, C.N.P. [address] [place] [phone] 03/24/2024 3:00 PM CDT Clinical Communication Virtual Review in [place], [place] 200 [place] [phone] 03/26/2024 7:45 AM CDT Appointment Department of Radiology, [facility], in [address] [phone] Zhane Granados APRN, C.N.P. [address] [place] [phone] 03/26/2024 3:20 PM CDT Office Visit Department of Oncology in [address] [phone] Pérez Zuniga M.D., Ph.D. 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) Expected: 03/25/2024, Expires: 05/14/2025 Scheduled Referrals Name Type Priority Associated Diagnoses Orde r Schedule Oncology office visit (clinic) Outpatient Referral Routine Expected: 03/25/2024, Expires: 05/14/2025 documented as of this encounter Visit Diagnoses Diagnosis Melanoma Trunk (HCC)- Primary Secondary Malignant Neoplasm Bone (HCC) Secondary Malignant Neoplasm Brain (HCC) documented in this encounter Additional Health Concerns Infection Onset Date Last Indicated Resolved Time Protective Environment 06/04/2023 06/04/2023 documented as of this encounter Care Teams Cnc Service Engineer Relationship Specialty Start Date End Date Elsewhere, Pcp PCP - General Family Medicine 06/17/23 documented as of this encounter
--- OUTSIDE RECORDS SUMMARY | 2024-02-21 15:06 | XMS_ITS | Encounter Summary ---
Author Organization [facility] Address [address] [place] [phone] Care Team Providers Care Smooth And Burr Worker Composites Name Role Phone Elsewhere, Pcp Primary Care Provider Unavailabl e Reason for Referral * Outpatient (Routine) - Authorized Specialty Diagnoses / Procedures Referred By Contac t Referred To Contact Palliative Medicine Diagnoses Palliative Care Bereket Mcgill APRN, C.N.P., D.N.P. [address] [place] [phone] [facility] Referral ID Status Reason Start Date Expiration Date V isits Requested Visits Authorized [id number] Authorized 01/15/2024 07/16/2025 1 1 Scheduling Instructions Coordinate with January or February 2024 visits if possible. Reason for Visit * Outpatient (Routine) - Closed Specialty Diagnoses / Procedures Referred By Contac t Referred To Contact Palliative Medicine Diagnoses Palliative Care Radha Sheldon M.D. 200 [place] [phone] [facility] Referral ID Status Reason Start Date Expiration Date Visits Re quested Visits Authorized [id number] Closed 12/26/2023 06/26/2025 1 1 Encounter Details Date Type Department Care Team (Latest Contact Info) Description 01/15/2024 10:45 AM CDT Clinical Support Department of Palliative Care in [place], [place] [address] [place] [phone] Radha Sheldon M.D. [address] [place] [phone] Claire Woodard R.N., [facility] [address] [place] [phone] Pain Cancer Associated (Primary Dx); Palliative Care; Insomnia Social History Tobacco Use Types Packs/Day Years Used Date Smoking Tobacco: Never Passive Smoke Exposure: Never Smokeless Tobacco: Never Alcohol Use Standard Drinks/Week Comments Not Currently 0 (1 standard drink = 0.6 oz pur e alcohol) Occasional [facility] Utilities Answer Date Recorded In the past 12 months has e [employer], gas, oil, or water [employer] threatened to shut off services in your [...] Sex Assigned at Female 05/31/2023 8:26 AM WOOL GROWER Gender Identity Female 05/31/2023 8:26 AM WOOL GROWER Sexual Orientation Straight 05/31/2023 8: 26 AM WOOL GROWER documented as of this encounter Progress Notes * Claire Woodard R.N., [facility] - 01/15/2024 10:45 AM CDT PALLIATIVE CARE NURSING VISIT Patient Name: Tony Cota Age: 48 y.o. Reason for Palliative Medicine Nurse Visit: Auricular Acupressure for symptom management in the setting of malignant melanoma Tony is an establish acupressure patient and is familiar with it as a healing modality for Problems with sleep management. Prior to initiating auricular acupressure, safety precautions were reviewedincluding skin integrity, and allergies. Patient verbalized understanding of rationale for auricular acupressure for symptom management and verbal consent was obtained to proceed with the session. Presents with mother, Cherelle, who is supportive. ASSESSMENT Pre acupressure assessment: Tony reports auricular acupressure as a helpful tool for sleep previously. Also used nausea protocol to help with nausea associated with brushing teeth. Historically beads have stayed in place for full 6 days and have been tolerated well. Her has assisted with bed placement during longer times between palliative integrative visits. Today reports no nausea. Would like to focus on sleep protocol. Discuss recent special life events including graduation of her daughter. Ear (s) used: right ear Auricular protocol selected: Sleep Acupoints used: Heart, Liver, Master Cerebral , Point Zero, and Shenmen Spirit Gabriels Device used: Titanium Ear Beads Number of beads placed: 5 Post acupressure assessment: Tolerated bead placement well. RECOMMENDATION/PLAN Stimulation instructions provided: Gentle finger pressure several times/day Advised devices should be removed in 3-6 days or if pain, soreness, swelling, pinching, redness, heat, or itching develop. Reviewed most common auricular acupressure risks including local skin irritation/discomfort, mild tenderness or pain at the application site, and itching. Patient verbalized understanding of the above. Visit and plan was discussed with Bereket Johnson DNP Encouraged to activate beads during bedtime routine. Could also activate beads when feeling restless from steroids as a way to promote a sense of rest/peace. Encouraged to incorporate other modalities into auricular acupressure practice. Tony has done this wonderfully into other aspects of her care. She has been able to complete two recent MRIs using deep breathing and progressive muscle relaxation techniques without use of Valium. Claire Woodard R.N., [facility] Palliative Care Nurse [facility] documented in this encounter Plan of Treatment Upcoming Encounters Date Type Department Care Team (Late st Contact Info) Description 02/25/2024 10:00 AM CDT Clinical Communication Virtual Review in [address] [phone] 02/27/2024 7:30 AM CDT Appointment Department of Radiology, [facility] in [address] [phone] Zhane Granados APRN, C.N.P. [address] [place] [phone] 02/27/2024 8:45 AM CDT Clinical Support Department of Palliative Care in [address] [phone] Bereket Johnson APRN, C.N.P., D.N.P. [address] [place] [phone] 02/27/2024 9:45 AM CDT Clinical Support Department of Palliative Care in [address] [phone] Marija Olivas APRN, C.N.P., M.S.N. [address] [place] [phone] 02/27/2024 11:00 AM CDT Lab Department of Laboratory Medicine and Pathology, [facility], in [place], [place] [address] [place] [phone] Zhane Granados APRN, Harsha.N.P. [address] [place] [phone] 02/27/2024 1:00 PM CDT Office Visit Department of Oncology in [place], [place] [address] [place] [phone] Pérez Zuniga M.D., Ph.D. [address] [place] [phone] 02/27/2024 1:45 PM CDT Infusion Department of Oncology in [place], [place] [address] [place] [phone] Zhane Granados APRN, C.N.P. [address] [place] [phone] 03/17/2024 7:00 AM CDT Clinical Communication Virtual Review in [place], [place] 200 [place] [phone] 03/19/2024 10:45 AM CDT Clinical Support Department of Palliative Care in [address] [phone] Marija Olivas APRN, Harsha.N.Dina., M.S.N. [address] [place] [phone] 03/19/2024 11:30 AM CDT Office Visit Department of Palliative Care in [address] [phone] Valentine Kelsey M.D., M.S. [address] [place] [phone] 03/19/2024 11:40 AM CDT Lab Department of Laboratory Medicine and Pathology, [facility] in [place], [place] [address] [place] [phone] Zhane Granados APRN, C.N.P. [address] [place] [phone] 03/19/2024 1:40 PM CDT Office Visit Department of Oncology in [place], [place] [address] [place] [phone] Pérez Zuniga M.D., Ph.D. [address] [place] [phone] 03/19/2024 2:45 PM CDT Infusion Department of Oncology in [place], [place] [address] [place] [phone] Zhane Granados APRN, C.N.P. [address] [place] [phone] 03/24/2024 3:00 PM CDT Clinical Communication Virtual Review in [place], [place] 200 [place] [phone] 03/26/2024 7:45 AM CDT Appointment Department of Radiology, [facility] in [place], [place] [address] [place] [phone] Zhane Granados APRN, C.N.P. [address] [place] [phone] 03/26/2024 3:20 PM CDT Office Visit Department of Oncology in [place], [place] [address] [place] [phone] Pérez Zuniga M.D., Ph.D. [address] [place] [phone] Scheduled Referrals Name Type Priority Associated Diagnoses Order Schedule Palliative Care nurse therapy visit (clinic) Outpatient Referral Routine Palliative Care Insomnia Expected: 02/05/2024 (Approximate), Expires: 04/16/2025 documented as of this encounter Visit Diagnoses Diagnosis Pain Cancer Associated- Primary Palliative Care Insomnia documented in this encounter Additional Health Concerns Infection Onset Date Last Indicated Resolved Time Protective Environment 06/04/2023 06/04/2023 documented as of this encounter Care Teams Smooth And Burr Worker Composites Relationship Specialty Start Date End Date Elsewhere, Pcp PCP - General Family Medicine 06/17/23 documented as of this encounter
--- OUTSIDE RECORDS SUMMARY | 2024-02-21 15:06 | XMS_ITS | Encounter Summary ---
Author Organization [facility] Address [address] [place] [address] Care Team Providers Care Maintenance Job Titles Name Role Phone Elsewhere, Pcp Primary Care Provider Unavailabl e Reason for Visit * Reason Comments Med Refill Encounter Details Date Type Department Care Team (Late st Contact Info) Description 01/23/2024 Refill Department of Oncology in [place], [place] [address] [place] [phone] Zhane Granados APRN, C.N.P. [address] [place] [phone] Med Refill Social History Tobacco Use Types Packs/Day Years Used Date Smoking Tobacco: Never Passive Smoke Exposure: Never Smokeless Tobacco: Never Alcohol Use Standard Drinks/Week Comments Not Currently 0 (1 standard drink = 0.6 oz pur e alcohol) Occasional C Utilities Answer Date Recorded In the past 12 months has [employer] electric, gas, oil, or water company threatened [...] your living situation today? I have a [facility] place to live 07/10/2023 Sex and Gender Information Value Date Recorded Sex Assigned at Female 05/31/2023 8:26 AM CARE ASST Gender Identity Female 05/31/2023 8:26 AM CARE ASST Sexual Orientation Straight 05/31/2023 8: 26 AM CARE ASST documented as of this encounter Plan of Treatment Upcoming Encounters Date Type Department Care Team (Late st Contact Info) Description 02/25/2024 10:00 AM CDT Clinical Communication Virtual Review in [place], [place] 200 [place] [address] 02/27/2024 7:30 AM CDT Appointment Department of Radiology, [facility] in [place], [place] [address] [place] [phone] Zhane Granados APRN, C.N.P. [address] [place] [phone] 02/27/2024 8:45 AM CDT Clinical Support Department of Palliative Care in [place], [place] [address] [place] [phone] Bereket Johnson APRN, C.N.P., D.N.P. [address] [place] [phone] 02/27/2024 9:45 AM CDT Clinical Support Department of Palliative Care in [place], [place] [address] [place] [phone] Marija Olivas APRN, C.N.P., M.S.N. [address] [place] [phone] 02/27/2024 11:00 AM CDT Lab Department of Laboratory Medicine and Pathology, [facility] in [address] [phone] Zhane Granados APRN, C.N.P. [address] [place] [phone] 02/27/2024 1:00 PM CDT Office Visit Department of Oncology in [address] [phone] Pérez Zuniga M.D., Ph.D. [address] [place] [phone] 02/27/2024 1:45 PM CDT Infusion Department of Oncology in [address] [phone] Zhane Granados APRN, C.N.P. [address] [place] [phone] 03/17/2024 7:00 AM CDT Clinical Communication Virtual Review in [place], [place] 200 [place] [address] 03/19/2024 10:45 AM CDT Clinical Support Department of Palliative Care in [place], [place] [address] [place] [phone] Marija Olivas APRN, C.N.P., M.S.N. [address] [place] [phone] 03/19/2024 11:30 AM CDT Office Visit Department of Palliative Care in [place], [place] [address] [place] [phone] Valentine Kelsey M.D., M.S. [address] [place] [phone] 03/19/2024 11:40 AM CDT Lab Department of Laboratory Medicine and Pathology, [facility] in [place], [place] [address] [place] [phone] Zhane Granados APRN, C.N.P. [address] [place] [phone] 03/19/2024 1:40 PM CDT Office Visit Department of Oncology in [address] [phone] Pérez Zuniga M.D., Ph.D. [address] [place] [phone] 03/19/2024 2:45 PM CDT Infusion Department of Oncology in [place], [place] [address] [place] [phone] Zhane Granados APRN, C.N.P. [address] [place] [phone] 03/24/2024 3:00 PM CDT Clinical Communication Virtual Review in [address] [phone] 03/26/2024 7:45 AM CDT Appointment Department of Radiology, [facility], in [place], [place] [address] [place] [address] Zhane Granados APRN, C.N.P. [address] [place] [phone] 03/26/2024 3:20 PM CDT Office Visit Department of Oncology in [place], [place] [address] [place] [phone] Pérez Zuniga M.D., Ph.D. [address] [place] [phone] documented as of this encounter Visit Diagnoses Not on filedocumented in this encounter Additional Health Concerns Infection Onset Date Last Indicated Resolved Time Protective Environment 06/04/2023 06/04/2023 documented as of this encounter Care Teams Maintenance Job Titles Relationship Specialty Start Date End Date Elsewhere, Pcp PCP - General Family Medicine 06/17/23 documented as of this encounter
--- OUTSIDE RECORDS SUMMARY | 2024-02-21 15:06 | XMS_ITS | Encounter Summary ---
Author Organization [facility] Address [address] [place] [address] Care Team Providers Care Childcare Teacher Name Role Phone Elsewhere, Pcp Primary Care Provider Unavailabl e Reason for Referral * Outpatient (Routine) - Authorized Specialty Diagnoses / Procedures Referred By Contac t Referred To Contact Palliative Valentine Singh M.D., M.S. [address] [place] [phone] [facility] Referral ID Status Reason Start Date Expiration Date V isits Requested Visits Authorized [id number] Authorized 01/29/2024 07/30/2025 [address] Kelsey as add on, at 11:15 Reason for Visit * Outpatient (Routine) - Closed Specialty Diagnoses / Procedures Referred By Contac t Referred To Contact Palliative Radha Vega M.D. [address] [place] [phone] Valentine Kelsey M.D., M.S. [address] [place] [phone] Referral ID Status Reason Start Date Expiration Date Visits Re quested Visits Authorized [id number] Closed 12/26/2023 06/26/2025 1 1 Encounter Details Date Type Department Care Team (Late st Contact Info) Description 01/29/2024 3:00 PM CDT Telemedicine Department of Palliative Care in [place], [place] [address] [place] [address] Valentine Kelsey M.D., M.S. [address] [place] [address] Melanoma Trunk (HCC) (Primary Dx); Palliative Care; Secondary Malignant Neoplasm Brain (HCC) Social History Tobacco Use Types Packs/Day Years Used Date Smoking Tobacco: Never Passive Smoke Exposure: Never Smokeless Tobacco: Never Alcohol Use Standard Drinks/Week Comments Not Currently 0 (1 standard drink = 0.6 oz pur e alcohol) Occasional [facility] Utilities Answer Date Recorded In the past 12 months has e [employer], gas, oil, or water [employer] threatened to shut off services in your [...] your living situation today? [facility] 07/10/2023 Sex and Gender Information Value Date Recorded Sex Assigned at Female 05/31/2023 8:26 AM FIREPROOF DOOR MAKER Gender Identity Female 05/31/2023 8:26 AM FIREPROOF DOOR MAKER Sexual Orientation Straight 05/31/2023 8: 26 AM FIREPROOF DOOR MAKER documented as of this encounter Progress Notes * Valentine Kelsey M.D., M.S. 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 established patient visit Visit conducted via virtual visit. The following person/people were also present during the discussion: None Medical Record review was conducted prior to the virtual visit. Date of last in-person clinic visit: 12/26/23 Interval History: At her last Oncology visit on 01/13, they discussed a couple new concerning areas on her brain MRI; plan is for rescan and PET CT in 1 month. Tony celebrates that she did not review the results on her own in advance. She also utilized threecoping techniques to avoid utilizing benzos during the MRI - leaning into the discomfort/identifying noises, counting, and progressive relaxation. She feels good that she is not dependent on asking for medication and can utilize tools she has. She was also recently encouraged by her daughter who shared with her that Tony's ability to go through hard things motivated her to push through during a challenging two-mile race and become all-conference when she did not think it was possible. Tony then was able to share later with her daughterthat this comment helped her pull out of a longer than normal discouraged mood. Tony also reflects on complex emotional interactions with her family, including one of her brothers who has difficulty being in the room during updates on her health. She decided to text prior to their 15 of January celebration that if anyone had questions on her condition, they should ask her before then, and that she planned to enjoy celebrating that night. Tony also shared that she is the samedetermined person she has always been. Tony shares how she has decided to respond to people in public who approach, saying that she is looking forward to a night with her family. Reflects on how cancer is the least interesting thing about her. Erick Scores Who completed this form?: Patient No Pain = 0 and Worst Pain = 10: 2 No Fatigue = 0 and Worst Fatigue = 10: 3 No Nausea = 0 and Worst Nausea = 10: 0 No Depression = 0 and Worst Depression = 10: 1 No Anxiety = 0 and Worst Anxiety = 10: 1 No Drowsiness = 0 and Worst Drowsiness = 10 : 1 No Shortness of Breath = 0 and Worst Shortness of Breath = 10: 0 Best Appetite = 0 and Worst Appetite = 10: 7 Best Feeling of Well Being = 0 and Worst Feeling of Well Being = 10: 5 Best Sleep = 0 and Worst Sleep = 10: 6 No Financial Distress (Distress/suffering experienced secondary to financial issues) = 0 and Worst Financial Distress = 10: 2 No Spiritual Pain (Pain deep in your soul/being that is not physical) = 0 and Worst Spiritual Pain = 10: 1 OBJECTIVE PHYSICAL EXAM General: Alert, appropriately interactive, no acute distress Lungs: non-labored breathing pattern during conversation Psychiatric: Oriented X 3, intact recent and remote memory, judgment and insight, congruent mood and affect. 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 I spent time exploring Tony's experiences of navigating relationships with the context of the cancer diagnosis including her relationship with herself. Commended her on the growth she has shown in developing additional tools and techniques for responding to challenging situations, including the release of results prior to visits and the brain MRI. Validated that while drawing boundaries around cancer-related conversations with people in their community when out in public can be uncomfortable, her chosen response is a reasonable and thoughtful way to acknowledge them while maintaining respectfor herself and time with her family. Also acknowledged that Tony has been very thoughtful about no ticing and acknowledging how her family members respond to information and balancing support for them with respect for their own boundaries and asserting her own needs. Follow up visit: 4-6 weeks or sooner PRN I personally spent a total of 45 minutes. Consult conducted via real-time audio/video technology by Vaelntine Kelsey M.D., M.S. in [facility] to the patient in Patient's Home Valentine Kelsey M.D., M.S. documented in this encounter Plan of Treatment Upcoming Encounters Date Type Department Care Team (Late st Contact Info) Description 02/25/2024 10:00 AM CDT Clinical Communication Virtual Review in [address] [phone] 02/27/2024 7:30 AM CDT Appointment Department of Radiology, [facility] in [address] [phone] Zhane Granados APRN, C.N.P. [address] [place] [phone] 02/27/2024 8:45 AM CDT Clinical Support Department of Palliative Care in [address] [phone] Bereket Johnson APRN, C.N.P., D.N.P. [address] [place] [phone] 02/27/2024 9:45 AM CDT Clinical Support Department of Palliative Care in [address] [phone] Marija Olivas APRN, C.N.P., M.S.N. [address] [place] [phone] 02/27/2024 11:00 AM CDT Lab Department of Laboratory Medicine and Pathology, [facility], in [place], [place] [address] [place] [phone] Zhane Granados APRN, Harsha.N.P. [address] [place] [phone] 02/27/2024 1:00 PM CDT Office Visit Department of Oncology in [place], [place] [address] [place] [phone] Pérez Zuniga M.D., Ph.D. [address] [place] [phone] 02/27/2024 1:45 PM CDT Infusion Department of Oncology in [address] [address] Zhane Granados APRN, Harsha.N.P. [address] [place] [phone] 03/17/2024 7:00 AM CDT Clinical Communication Virtual Review in [place], [place] 200 [place] [address] 03/19/2024 10:45 AM CDT Clinical Support Department of Palliative Care in [address] [phone] Marija Olivas APRN, C.N.P., M.S.N. [address] [place] [phone] 03/19/2024 11:30 AM CDT Office Visit Department of Palliative Care in [address] [phone] Valentine Kelsey M.D., M.S. [address] [place] [phone] 03/19/2024 11:40 AM CDT Lab Department of Laboratory Medicine and Pathology, [facility], in [place], [place] [address] [place] [phone] Zhane Granados APRN, C.N.P. [address] [place] [phone] 03/19/2024 1:40 PM CDT Office Visit Department of Oncology in [place], [place] [address] [place] [phone] Pérez Zuniga M.D., Ph.D. [address] [place] [phone] 03/19/2024 2:45 PM CDT Infusion Department of Oncology in [place], [place] [address] [place] [phone] Zhane Granados APRN, C.N.P. [address] [place] [phone] 03/24/2024 3:00 PM CDT Clinical Communication Virtual Review in [place], [place] 200 [place] [address] 03/26/2024 7:45 AM CDT Appointment Department of Radiology, [facility], in [place], [place] [address] [place] [phone] Zhane Granados APRN, C.N.P. [address] [place] [phone] 03/26/2024 3:20 PM CDT Office Visit Department of Oncology in [place], [place] [address] [place] [phone] Pérez Zuniga M.D., Ph.D. [address] [place] [phone] Scheduled Referrals Name Type Priority Associated Diagnoses Order Schedule Palliative Care office visit (clinic) Outpatient Referral Routine Expected: 03/19/2024, Expires: 04/30/2025 documented as of this encounter Visit Diagnoses Diagnosis Melanoma Trunk (HCC)- Primary Palliative Care Secondary Malignant Neoplasm Brain (HCC) documented in this encounter Additional Health Concerns Infection Onset Date Last Indicated Resolved Time Protective Environment 06/04/2023 06/04/2023 documented as of this encounter Care Teams Childcare Teacher Relationship Specialty Start Date End Date Elsewhere, Pcp PCP - General Family Medicine 06/17/23 documented as of this encounter
--- OUTSIDE RECORDS SUMMARY | 2024-02-21 15:06 | XMS_ITS | Encounter Summary ---
Author Organization [facility] Address [address] [place] [address] Care Team Providers Care Quality Rep Name Role Phone Elsewhere, Pcp Primary Care Provider Unavailabl e Reason for Visit * Episode Based Medications (Routine) - Authorized Specialty Diagnoses / Procedures Referred By Contac t Referred To Contact Diagnoses 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) Procedures [place] NIVOLUMAB INJ [place] IPILIMUMAB INJ 1 MG x Pérez Zuniga M.D., Ph.D. [address] [place] [phone] [facility] [address] [place] [phone] Referral ID Status Reason Start Date Expiration Date V isits Requested Visits Authorized [id number] Authorized 11/26/2023 11/25/2024 99 99 Encounter Details Date Type Department Care Team (Late st Contact Info) Description 02/04/2024 2:15 PM CDT Infusion Department of Oncology in [place], [place] [address] [place] [phone] Zhane Granados APRN, C.N.P. [address] [place] [phone] Melanoma Trunk (HCC) (Primary Dx); Secondary Malignant [...] In the past 12 months has e [employer], gas, oil, or water company threatened to [...] living situation today? I have a [facility] place to live 07/10/2023 Sex and Gender Information Value Date Recorded Sex Assigned at Female 05/31/2023 8:26 AM CUSHION SEWER Gender Identity Female 05/31/2023 8:26 AM CUSHION SEWER Sexual Orientation Straight 05/31/2023 8: 26 AM CUSHION SEWER documented as of this encounter Plan of Treatment Upcoming Encounters Date Type Department Care Team (Late st Contact Info) Description 02/25/2024 10:00 AM CDT Clinical Communication Virtual Review in [place], [place] 200 [place] [address] 02/27/2024 7:30 AM CDT Appointment Department of Radiology, [facility] in [place], [place] [address] [place] [phone] Zhane Granados APRN, C.N.P. [address] [place] [phone] 02/27/2024 8:45 AM CDT Clinical Support Department of Palliative Care in [place], [place] [address] [place] [phone] Bereket Johnson APRN, C.N.P., D.N.P. [address] [place] [phone] 02/27/2024 9:45 AM CDT Clinical Support Department of Palliative Care in [place], [place] [address] [place] [phone] Marija Olivas APRN, C.N.P., M.S.N. [address] [place] [phone] 02/27/2024 11:00 AM CDT Lab Department of Laboratory Medicine and Pathology, [facility] in [place], [place] [address] [place] [phone] Zhane Granados APRN, C.N.P. [address] [place] [phone] 02/27/2024 1:00 PM CDT Office Visit Department of Oncology in [place], [place] [address] [place] [phone] Pérez Zuniga M.D., Ph.D. [address] [place] [phone] 02/27/2024 1:45 PM CDT Infusion Department of Oncology in [place], [place] [address] [place] [phone] Zhane Granados APRN, C.N.P. [address] [place] [phone] 03/17/2024 7:00 AM CDT Clinical Communication Virtual Review in [place], [place] 200 [place] [phone] 03/19/2024 10:45 AM CDT Clinical Support Department of Palliative Care in [address] [phone] Marija Olivas APRN, C.N.P., M.S.N. [address] [place] [phone] 03/19/2024 11:30 AM CDT Office Visit Department of Palliative Care in [address] [phone] Valentine Kelsey M.D., M.S. [address] [place] [phone] 03/19/2024 11:40 AM CDT Lab Department of Laboratory Medicine and Pathology, [facility], in [place], [place] [address] [place] [phone] Zhane Granados APRN, C.N.P. [address] [place] [phone] 03/19/2024 1:40 PM CDT Office Visit Department of Oncology in [address] [phone] Pérez Zuniga M.D., Ph.D. [address] [place] [phone] 03/19/2024 2:45 PM CDT Infusion Department of Oncology in [place], [place] [address] [place] [phone] Zhane Granados APRN, C.N.P. [address] [place] [phone] 03/24/2024 3:00 PM CDT Clinical Communication Virtual Review in [place], [place] 200 [place] [phone] 03/26/2024 7:45 AM CDT Appointment Department of Radiology, [facility], in [address] [phone] Zhane Granados APRN, C.N.P. [address] [place] [phone] 03/26/2024 3:20 PM CDT Office Visit Department of Oncology in [address] [phone] Pérez Zuniga M.D., Ph.D. [address] [place] [phone] documented as of this encounter Visit Diagnoses Diagnosis Melanoma Trunk (HCC)- Primary Secondary Malignant Neoplasm Bone (HCC) Secondary Malignant Neoplasm Brain (HCC) documented in this encounter Administered Medications Inactive Administered Medications - up to 3 most recent administrations Medication Order MAR Action Action Date Dose Rate Site ipilimumab 250 mg in NaCl 0.9% 160 mL IVPB (Yervoy) 250 mg (rounded from 268.5 mg = 3 mg/kg ? 89.5 kg Treatment plan Measured weight), intravenous, at 320 mL/hr, Administer over 30 Minutes, Once, On Sat02/04/24 at 1445, For 1 dose, Do not shake. Administer via [id number]-guypmof in-line filter. Do not co-administer other drugs through the same infusion line. Flush after each dose. Administer after Nivolumab. Do not shake. Use low protein binding in-line filter. New Bag 02/04/2024 3:00 PM CDT 250 mg 320 mL/hr nivolumab 90 mg in NaCl 0.9% 67 mL IVPB (Opdivo) 90 mg (rounded from 89.5 mg = 1 mg/kg ? 89.5 kg Treatment plan Measured weight), intravenous, at 134 mL/hr, Administer over 30 Minutes, Once, On Sat02/04/24 at 1415, For 1 dose, Do not co-administer other drugs through the same infusion line. Give via 0.2 or 0.22 micron in-line filter. Do not shake. Use low protein binding in-line filter. New Bag 02/04/2024 2:22 PM CDT 90 mg 134 mL/ hr sodium chloride 0.9 % injection 10 mL 10 mL, intravenous, As needed, line care, Starting on Sat02/04/24 at 1336, Prior to blood sampling, post blood transfusion, or post blood sampling. Given 02/04/2024 3:32 PM CDT 20 mL Given 02/04/2024 2:45 PM CDT 20 mL documented in this encounter Additional Health Concerns Infection Onset Date Last Indicated Resolved Time Protective Environment 06/04/2023 06/04/2023 documented as of this encounter Care Teams Quality Rep Relationship Specialty Start Date End Date Elsewhere, Pcp PCP - General Family Medicine 06/17/23 documented as of this encounter
--- OUTSIDE RECORDS SUMMARY | 2024-02-21 15:06 | XMS_ITS | Encounter Summary ---
Author Organization [facility] Address [address] [place] [address] Care Team Providers Care Cold Header Operator Name Role Phone Elsewhere, Pcp Primary Care Provider Unavailabl e Reason for Visit * Reason Onset Date Comments Labs Only 01/30/2024 Encounter Details Date Type Department Care Team (Late st Contact Info) Description 01/30/2024 Clinical Communication Department of Oncology in [place], [place] [address] [place] [phone] Anahy Amezcua, R.N., O.C.N. [address] [place] [phone] Labs Only Social History Tobacco Use Types Packs/Day Years Used Date Smoking Tobacco: Never Passive Smoke Exposure: Never Smokeless Tobacco: Never Alcohol Use Standard Drinks/Week Comments Not Currently 0 (1 standard drink = 0.6 oz pur e alcohol) Occasional [facility] Utilities Answer Date Recorded In the past 12 months has [employer] electric, gas, oil, or water company threatened [...] living situation today? I [facility] a [facility] place to live 07/10/2023 Sex and Gender Information Value Date Recorded Sex Assigned at Female 05/31/2023 8:26 AM POLITICAL RESEARCHER Gender Identity Female 05/31/2023 8:26 AM POLITICAL RESEARCHER Sexual Orientation Straight 05/31/2023 8: 26 AM POLITICAL RESEARCHER documented as of this encounter Plan of Treatment Upcoming Encounters Date Type Department Care Team (Late st Contact Info) Description 02/25/2024 10:00 AM CDT Clinical Communication Virtual Review in [place], [place] 200 [place] [address] 02/27/2024 7:30 AM CDT Appointment Department of Radiology, [facility] in [place], [place] [address] [place] [phone] Zhane Granados APRN, C.N.P. [address] [place] [phone] 02/27/2024 8:45 AM CDT Clinical Support Department of Palliative Care in [place], [place] [address] [place] [phone] Bereket Johnson APRN, C.N.P., D.N.P. [address] [place] [phone] 02/27/2024 9:45 AM CDT Clinical Support Department of Palliative Care in [place], [place] [address] [place] [phone] Marija Olivas APRN, C.N.P., M.S.N. [address] [place] [phone] 02/27/2024 11:00 AM CDT Lab Department of Laboratory Medicine and Pathology, [facility] in [place], [place] [address] [place] [phone] Zhane Granados APRN, C.N.P. [address] [place] [phone] 02/27/2024 1:00 PM CDT Office Visit Department of Oncology in [place], [place] [address] [place] [phone] Pérez Zuniga M.D., Ph.D. [address] [place] [phone] 02/27/2024 1:45 PM CDT Infusion Department of Oncology in [place], [place] [address] [place] [phone] Zhane Granados APRN, C.N.P. [address] [place] [phone] 03/17/2024 7:00 AM CDT Clinical Communication Virtual Review in [place], [place] 200 [place] [address] 03/19/2024 10:45 AM CDT Clinical Support Department of Palliative Care in [place], [place] [address] [place] [phone] Marija Olivas APRN, C.N.P., M.S.N. [address] [place] [phone] 03/19/2024 11:30 AM CDT Office Visit Department of Palliative Care in [place], [place] [address] [place] [phone] Valentine Kelsey M.D., M.S. [address] [place] [phone] 03/19/2024 11:40 AM CDT Lab Department of Laboratory Medicine and Pathology, [facility] in [place], [place] [address] [place] [phone] Zhane Granados APRN, C.N.P. [address] [place] [phone] 03/19/2024 1:40 PM CDT Office Visit Department of Oncology in [address] [phone] Pérez Zuniga M.D., Ph.D. [address] [place] [phone] 03/19/2024 2:45 PM CDT Infusion Department of Oncology in [place], [place] [address] [place] [phone] Zhane Granados APRN, C.N.P. [address] [place] [phone] 03/24/2024 3:00 PM CDT Clinical Communication Virtual Review in [place], [place] 200 [place] [address] 03/26/2024 7:45 AM CDT Appointment Department of Radiology, [facility] in [place], [place] [address] [place] [phone] Zhane Granados APRN, C.N.P. [address] [place] [phone] 03/26/2024 3:20 PM CDT Office Visit Department of Oncology in [place], [place] [address] [place] [phone] Pérez Zuniga M.D., Ph.D. [address] [place] [phone] documented as of this encounter Procedures Procedure Name Priority Date/Time Associated Diagnosis Comments HEMATOLOGY/ONCOLOGY - BLOOD, EXTERNAL LAB RESULTS Routine 01/29/2024 2:40 PM CDT documented in this encounter Results * (ABNORMAL) Hematology/Oncology - Blood, External Lab Results (01/29/2024 2:40 PM CDT) EXT AST 41(A) 10 - 35 OTHER (SPECIFY IN FORENSIC TOXICOLOGIST) EXT ALT 30 10 - 35 OTHER (SPECIFY IN FORENSIC TOXICOLOGIST) EXT Alkaline Phosphatase 132(A) 35 - 104 OTHER (SPECIFY IN FORENSIC TOXICOLOGIST) EXT Bilirubin, Total 0.2 0.0 - 1.2 OTHER (SPECIFY IN FORENSIC TOXICOLOGIST) EXT Sodium 138 136 - 145 OTHER (SPECIFY IN FORENSIC TOXICOLOGIST) EXT Potassium 4.7 3.5 - 5.1 OTHER (SPECIFY IN FORENSIC TOXICOLOGIST) EXT Calcium, Total 9.1 8.6 - 10.0 OTHER (SPECIFY IN FORENSIC TOXICOLOGIST) EXT Creatinine 0.96(A) 0.50 - 0.90 OTHER (SPECIFY IN FORENSIC TOXICOLOGIST) EXT Total Protein 7.9 6.0 - 8.0 OTHER (SPECIFY IN FORENSIC TOXICOLOGIST) EXT Albumin 4.0 4.0 - 4.9 OTHER (SPECIFY IN FORENSIC TOXICOLOGIST) EXT Glucose, 180 Min 96 70 - 99 OTHER (SPECIFY IN FORENSIC TOXICOLOGIST) Blood 01/29/2024 2:40 PM CDT Historical Provider LAB BLOOD NON ADD-ON OTHER (SPECIFY IN FORENSIC TOXICOLOGIST) N/A documented in this encounter Visit Diagnoses Not on filedocumented in this encounter Additional Health Concerns Infection Onset Date Last Indicated Resolved Time Protective Environment 06/04/2023 06/04/2023 documented as of this encounter Care Teams Cold Header Operator Relationship Specialty Start Date End Date Elsewhere, Pcp PCP - General Family Medicine 06/17/23 documented as of this encounter
--- OUTSIDE RECORDS SUMMARY | 2024-02-21 15:06 | XMS_ITS | Encounter Summary ---
Author Organization [facility] Address [address] [place] [address] Care Team Providers Care Merchandise Director Name Role Phone Elsewhere, Pcp Primary Care Provider Unavailabl e Reason for Visit * Reason Onset Date Comments Pre-visit Intake 01/28/2024 Encounter Details Date Type Department Care Team (Latest Contact Info) Description 01/28/2024 12:00 PM CDT Clinical Communication Virtual Review in [place], [place] 200 [place] [address] Pre-visit Intake Social History Tobacco Use Types Packs/Day Years Used Date Smoking Tobacco: Never Passive Smoke Exposure: Never Smokeless Tobacco: Never Alcohol Use Standard Drinks/Week Comments Not Currently 0 (1 standard drink = 0.6 oz pur e alcohol) Occasional [facility] Utilities Answer Date Recorded In the past 12 months has [employer], gas, oil, or water [employer] threatened to shut off services in your [...] Sex Assigned at Female 05/31/2023 8:26 AM SHOW HOST Gender Identity Female 05/31/2023 8:26 AM SHOW HOST Sexual Orientation Straight 05/31/2023 8: 26 AM SHOW HOST documented as of this encounter Plan of Treatment Upcoming Encounters Date Type Department Care Team (Late st Contact Info) Description 02/25/2024 10:00 AM CDT Clinical Communication Virtual Review in [place], [place] 200 [place] [address] 02/27/2024 7:30 AM CDT Appointment Department of Radiology, [facility] in [place], [place] [address] [place] [phone] Zhane Granados APRN, C.N.P. [address] [place] [phone] 02/27/2024 8:45 AM CDT Clinical Support Department of Palliative Care in [place], [place] [address] [place] [phone] Bereket Johnson APRN, C.N.P., D.N.P. [address] [place] [phone] 02/27/2024 9:45 AM CDT Clinical Support Department of Palliative Care in [place], [place] [address] [place] [phone] Marija Olivas APRN, C.N.P., M.S.N. [address] [place] [phone] 02/27/2024 11:00 AM CDT Lab Department of Laboratory Medicine and Pathology, [facility] in [place], [place] [address] [place] [phone] Zhane Granados APRN, C.N.P. [address] [place] [phone] 02/27/2024 1:00 PM CDT Office Visit Department of Oncology in [place], [place] [address] [place] [phone] Pérez Zuniga M.D., Ph.D. [address] [place] [phone] 02/27/2024 1:45 PM CDT Infusion Department of Oncology in [place], [place] [address] [place] [phone] Zhane Granados APRN, C.N.P. [address] [place] [phone] 03/17/2024 7:00 AM CDT Clinical Communication Virtual Review in [place], [place] 200 [place] [address] 03/19/2024 10:45 AM CDT Clinical Support Department of Palliative Care in [place], [place] [address] [place] [phone] Marija Olivas APRN C.N.P., M.S.N. [address] [place] [phone] 03/19/2024 11:30 AM CDT Office Visit Department of Palliative Care in [place], [place] [address] [place] [phone] Valentine Kelsey M.D., M.S. [address] [place] [phone] 03/19/2024 11:40 AM CDT Lab Department of Laboratory Medicine and Pathology, [facility] in [place], [place] [address] [place] [phone] Zhane Granados APRN, C.N.P. [address] [place] [phone] 03/19/2024 1:40 PM CDT Office Visit Department of Oncology in [place], [place] [address] [place] [phone] Pérez Zuniga M.D., Ph.D. [address] [place] [phone] 03/19/2024 2:45 PM CDT Infusion Department of Oncology in [address] [phone] Zhane Granados APRN, C.N.P. [address] [place] [phone] 03/24/2024 3:00 PM CDT Clinical Communication Virtual Review in [place], [place] 200 [place] [address] 03/26/2024 7:45 AM CDT Appointment Department of Radiology, [facility] in [place], [place] [address] [place] [phone] Zhane Granados APRN, C.N.P. [address] [place] [phone] 03/26/2024 3:20 PM CDT Office Visit Department of Oncology in [place], [place] [address] [place] [phone] Pérez Zuniga M.D., Ph.D. [address] [place] [phone] documented as of this encounter Visit Diagnoses Not on filedocumented in this encounter Additional Health Concerns Infection Onset Date Last Indicated Resolved Time Protective Environment 06/04/2023 06/04/2023 documented as of this encounter Care Teams Merchandise Director Relationship Specialty Start Date End Date Elsewhere, Pcp PCP - General Family Medicine 06/17/23 documented as of this encounter
--- OUTSIDE RECORDS SUMMARY | 2024-02-21 15:06 | XMS_ITS | Encounter Summary ---
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 200 [place] [address] [facility] Referral ID Status Reason Start Date Expiration Date Visits Re quested Visits Authorized [id number] Closed 12/29/2023 12/28/2024 1 1 Encounter Details Date Type Department Care Team (Latest Contact Info) Description 01/14/2024 6:05 AM CDT - 01/14/2024 11:59 PM CDT Hospital Encounter Department of Radiology, [facility] in [place], [place] [address] [place] [address] Zhane Granados APRN, C.N.P. [address] [place] [address] Melanoma Trunk (HCC); Secondary Malignant Neoplasm Brain (HCC) Discharge Disposition: Home or Self Care Social History Tobacco Use Types Packs/Day Years Used Date Smoking Tobacco: Never Passive Smoke Exposure: Never Smokeless Tobacco: Never Alcohol Use Standard Drinks/Week Comments Not Currently 0 (1 standard drink = 0.6 oz pur e alcohol) Occasional [employer] Utilities Answer Date Recorded In the past 12 months has [employer], gas, oil, or water [employer] threatened to shut off services in your [...] Sex Assigned at Female 05/31/2023 8:26 AM CLIN TECH Gender Identity Female 05/31/2023 8:26 AM CLIN TECH Sexual Orientation Straight 05/31/2023 8: 26 AM CLIN TECH documented as of this encounter Medications at Time of Discharge Medication Sig Dispensed Refills Start Date End Date cetirizine (ZyrTEC) 10 mg tablet Take 10 mg by mouth 2 (two) times a day. Taking for rash omeprazole (PriLOSEC OTC) [address] tablet Take 20 mg by mouth every morning before breakfast. 05/08/2023 hydrOXYzine (ATARAX) 25 mg tablet Take 25-50 [...] no or minimal response. 2 each 06/21/2023 polyethylene glycol (MIRALAX) 17 gram powder packet Take 17 g by mouth as needed for constipation. Dissolve each 17 g dose in 240 mLs (8 ounces) of beverage. sennosides (senna) 8.6 mg tablet Take 8.6 mg by mouth daily. colchicine (COLCRYS) 0.6 mg tablet Take 2 tablets (1.2 mg total) by mouth 2 (two) times a day. 120 tablet 12/18/2023 01/17/2024 prochlorperazine (Compazine) 10 mg tablet Take 1 tablet (10 mg total) by mouth every 6 (six) hours as needed for nausea. 30 tablet 1 01/03/2024 02/02/2024 binimetinib (Mektovi) 15 mg tablet Take 3 tablets (45 mg total) by mouth 2 (two) times a day. 180 tablet 01/01/2024 01/23/2024 dexAMETHasone (DECADRON) 1 mg tablet Take 2 tablets (2 mg total) by mouth every 12 (twelve) hours. 60 tablet 3 12/18/2023 02/04/2024 encorafenib (Braftovi) 75 mg capsule Take 6 capsules (450 mg total) by mouth daily. 180 capsule 01/01/2024 01/23/2024 ondansetron (ZOFRAN) 8 mg tablet TAKE ONE TABLET BY MOUTH EVERY EIGHT HOURS NEEDED NAUSEA AND VOMITING 30 tablet 12/23/2023 02/04/2024 triamcinolone (KENALOG) 0.1 % cream Apply topically to affected area twice daily for 1 week. Then once daily as needed. 454 g 1 12/26/2023 02/04/2024 documented as of this encounter Plan of Treatment Upcoming Encounters Date Type Department Care Team (Late st Contact Info) Description 02/25/2024 10:00 AM CDT Clinical Communication Virtual Review in [address] [phone] 02/27/2024 7:30 AM CDT Appointment Department of Radiology, [facility] in [address] [phone] Zhane Granados APRN, C.N.P. [address] [place] [phone] 02/27/2024 8:45 AM CDT Clinical Support Department of Palliative Care in [place], [place] [address] [place] [phone] Bereket Johnson APRN, C.N.P., D.N.P. [address] [place] [phone] 02/27/2024 9:45 AM CDT Clinical Support Department of Palliative Care in [address] [phone] Marija Olivas APRN, C.N.P., M.S.N. [address] [place] [phone] 02/27/2024 11:00 AM CDT Lab Department of Laboratory Medicine and Pathology, [facility], in [place], [place] [address] [place] [phone] Zhane Granados APRN, C.N.P. [address] [place] [phone] 02/27/2024 1:00 PM CDT Office Visit Department of Oncology in [place], [place] [address] [place] [phone] Pérez Zuniga M.D., Ph.D. [address] [place] [phone] 02/27/2024 1:45 PM CDT Infusion Department of Oncology in [place], [place] [address] [place] [phone] Zhane Granados APRN, C.N.P. [address] [place] [phone] 03/17/2024 7:00 AM CDT Clinical Communication Virtual Review in [place], [place] 200 [place] [address] 03/19/2024 10:45 AM CDT Clinical Support Department of Palliative Care in [place], [place] [address] [place] [phone] Marija Olivas APRN, Harsha.N.P., M.S.N. [address] [place] [phone] 03/19/2024 11:30 AM CDT Office Visit Department of Palliative Care in [address] [phone] Valentine Kelsey M.D., M.S. [address] [place] [phone] 03/19/2024 11:40 AM CDT Lab Department of Laboratory Medicine and Pathology, [facility] in [address] [phone] Zhane Granados APRN, C.N.P. [address] [place] [phone] 03/19/2024 1:40 PM CDT Office Visit Department of Oncology in [address] [phone] Pérez Zuniga M.D., Ph.D. [address] [place] [phone] 03/19/2024 2:45 PM CDT Infusion Department of Oncology in [address] [phone] Zhane Granados APRN, C.N.P. [address] [place] [phone] 03/24/2024 3:00 PM CDT Clinical Communication Virtual Review in [address] [phone] 03/26/2024 7:45 AM CDT Appointment Department of Radiology, [facility], in [address] [phone] Zhane Granados APRN, C.N.P. [address] [place] [phone] 03/26/2024 3:20 PM CDT Office Visit Department of Oncology in [place], [place] 200 [place] [address] Pérez Zuniga M.D., Ph.D. 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 Given 01/14/2024 6:52 AM CDT 7.5 mL documented in this encounter Additional Health Concerns Infection Onset Date Last Indicated Resolved Time Protective Environment 06/04/2023 06/04/2023 documented as of this encounter Care Teams Outside Physical Damage Appraiser Relationship Specialty Start Date End Date Elsewhere, Pcp PCP - General Family Medicine 06/17/23 documented as of this encounter
--- OUTSIDE RECORDS SUMMARY | 2024-02-21 15:06 | XMS_ITS | Encounter Summary ---
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 [address] [place] [phone] Rst Onc [facility] [address] [place] [phone] Referral ID Status Reason Start Date Expiration Date V isits Requested Visits Authorized [id number] Authorized 11/26/2023 11/25/2024 99 99 Encounter Details Date Type Department Care Team (Late st Contact Info) Description 02/04/2024 1:00 PM CDT Office Visit Department of Oncology in [place], [place] [address] [place] [phone] Pérez Zuniga M.D., Ph.D. [address] [place] [phone] Melanoma Trunk (HCC); Secondary Malignant Neoplasm Bone (HCC); Secondary Malignant Neoplasm Brain (HCC) Social History Tobacco Use Types Packs/Day Years Used Date Smoking Tobacco: Never Passive Smoke Exposure: Never Smokeless Tobacco: Never Alcohol Use Standard Drinks/Week Comments Not Currently 0 (1 standard drink = 0.6 oz pur e alcohol) Occasional [facility] Utilities Answer Date Recorded In [...] living situation today? I have a [facility] place to live 07/10/2023 Sex and Gender Information Value Date Recorded Sex Assigned at Female 05/31/2023 8:26 AM DELIVER DRIVER Gender Identity Female 05/31/2023 8:26 AM DELIVER DRIVER Sexual Orientation Straight 05/31/2023 8: 26 AM DELIVER DRIVER documented as of this encounter Last Filed Vital Signs Vital Sign Reading Time Taken Comments Blood Pressure 134/84 02/04/2024 12:45 PM CDT Pulse 80 02/04/2024 12:45 PM CDT Temperature 36 ??C (96.8 ??F) 02/04/2024 12:45 PM CDT Respiratory Rate - - Oxygen Saturation 99% 02/04/2024 12:45 PM CDT Inhaled Oxygen Concentration - - Weight 89.5 kg (197 lb 5 oz) 02/04/2024 12:45 PM CDT Height 156.8 cm (5' 1.73) 02/04/2024 12:45 PM C DT Body Mass Index 36.4 02/04/2024 12:45 PM CDT documented in this encounter Progress Notes * Pérez Zuniga M.D., Ph.D. 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 HISTORY OF PRESENT ILLNESS Oncology History Melanoma Trunk (HCC) 04/2023 Other [...] maltracking. 05/08/2023 Critical Imaging MRI Left Femur [facility] Interpretation Several 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 The largest is seen proximally extending off of the proximal [id number]-ee-lqxz. This involves the intertrochanteric left femurextending distally [...] diaphysis, which extends off of the proximal oqwuq-ak-epsg. 05/09/2023 Critical Imaging Chest X-ray Impression: 1. Suspicious right lower lung mass measuring up to 4.1 cm with a possible left scapular lytic lesion. Recommend CT chest for better characterization. 05/13/2023 Biopsy/Pathology [facility] Pathology Review FINAL DIAGNOSIS Left femur mass, biopsy ([id number]; 05/13/2023): Metastatic melanoma, diffusely positive for BRAF [...] trametinib. 08/08/[address] Abdomen Pelvis [facility] Interpretation IMPRESSION: 1. No evidence of cholangitis. [...] Au. 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 Given the patient's numerous (at least 10 lesions), it was felt that consideration of LINAC radiotherapy would be a good option. Referral to Radiation Oncology in [place]. 10/25/2023 - 10/25/2023 Radiation Therapy SRS to [...] Goal: Palliative Planned Treatment Start Date: 12/04/2023 INTERVAL HISTORY: Ms. Cota returns for follow-up of melanoma. She is doing well. ECOG performance status is 0. MEDICAL/SURGICAL HISTORY Past Medical History: Diagnosis Date Hypertension NOS 07/2020 Melanoma Skin (HCC) 05/24/23 Tumor Eye Benign Left 1995 Past Surgical History: Procedure Laterality Date EYE SURGERY TONSILLECTOMY 1995 REVIEW OF SYSTEMS Pertinent items are noted in HPI; all other review of systems were negative. I reviewed the Medications, Allergies, Past Medical History, Social History, and Family History. OBJECTIVE VITAL SIGNS Vitals: 02/04/24 1245 BP: 134/84 BP Location: Left arm Patient Position: Sitting Cuff Size: Regular Pulse: 80 Temp: 36 ??C TempSrc: Tympanic SpO2: 99% Weight: 89.5 kg Height: 156.8 cm Rate your distress: 2 PHYSICAL EXAMINATION General: Alert female, in no [...] unknown primary, BRAF V600E positive, currently on full dose EB + IPI/NIVO, s/p SRS lfor multiple brain mets. Mrs. Cota is here today for her 4th dose of IPI/NIVO induction. She is on full doses of EB, tolerating well. We will proceed with IPI/NIVO dose #4 today. Sheis scheduled for PET/CT restaging next week and MRI brain in February. Doing well. We will proceed with treatment today, and f/u next week with PET/CT. PATIENT EDUCATION: Ready to learn, no apparent [...] AM CDT Clinical Communication Virtual Review in [address] [phone] 02/27/2024 7:30 AM CDT Appointment Department of Radiology, [facility] in [address] [phone] Zhane Granados APRN, C.N.P. [address] [place] [phone] 02/27/2024 8:45 AM CDT Clinical Support Department of Palliative Care in [address] [phone] Bereket Johnson APRN, C.N.P., D.N.P. [address] [place] [phone] 02/27/2024 9:45 AM CDT Clinical Support Department of Palliative Care in [address] [phone] Marija Olivas APRN, C.N.P., M.S.N. [address] [place] [phone] 02/27/2024 11:00 AM CDT Lab Department of Laboratory Medicine and Pathology, [facility], in [place], [place] [address] [place] [phone] Zhane Granados APRN, C.N.P. [address] [place] [phone] 02/27/2024 1:00 PM CDT Office Visit Department of Oncology in [place], [place] [address] [place] [phone] Pérez Zuniga M.D., Ph.D. [address] [place] [phone] 02/27/2024 1:45 PM CDT Infusion Department of Oncology in [place], [place] [address] [place] [phone] Zhane Granados APRN, C.N.P. [address] [place] [phone] 03/17/2024 7:00 AM CDT Clinical Communication Virtual Review in [place], [place] 200 [place] [address] 03/19/2024 10:45 AM CDT Clinical Support Department of Palliative Care in [address] [phone] Marija Olivas APRN, C.N.P., M.S.N. [address] [place] [phone] 03/19/2024 11:30 AM CDT Office Visit Department of Palliative Care in [address] [phone] Valentine Kelsey M.D., M.S. [address] [place] [phone] 03/19/2024 11:40 AM CDT Lab Department of Laboratory Medicine and Pathology, [facility], in [place], [place] [address] [place] [phone] Zhane Granados APRN, C.N.P. [address] [place] [phone] 03/19/2024 1:40 PM CDT Office Visit Department of Oncology in [place], [place] [address] [place] [phone] Pérez Zuniga M.D., Ph.D. [address] [place] [phone] 03/19/2024 2:45 PM CDT Infusion Department of Oncology in [place], [place] [address] [place] [phone] Zhane Granados APRN, C.N.P. [address] [place] [phone] 03/24/2024 3:00 PM CDT Clinical Communication Virtual Review in [place], [place] 200 [place] [address] 03/26/2024 7:45 AM CDT Appointment Department of Radiology, [facility], in [place], [place] [address] [place] [phone] Zhane Granados APRN, C.N.P. [address] [place] [phone] 03/26/2024 3:20 PM CDT Office Visit Department of Oncology in [place], [place] [address] [place] [phone] Pérez Zuniga M.D., Ph.D. 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
--- OUTSIDE RECORDS SUMMARY | 2024-02-21 15:06 | XMS_ITS | Encounter Summary ---
Author Organization [facility] Address [address] [place] [address] Care Team Providers Care Nitro Man Name Role Phone Elsewhere, Pcp Primary Care Provider Unavailabl e Reason for Visit * Outpatient (Routine) - Closed Specialty Diagnoses / Procedures Referred By Mikki feliciano Referred To Contact Palliative Medicine Diagnoses Insomnia Marija Olivas APRN, C.NSantoshP., M.S.N. [address] [place] [phone] [facility] Referral ID Status Reason Start Date Expiration Date Visits Re quested Visits Authorized [id number] Closed 01/22/2024 07/23/2025 1 1 Encounter Details Date Type Department Care Team (Late st Contact Info) Description 02/04/2024 10:15 AM CDT Clinical Support Department of Palliative Care in [place], [place] [address] [place] [phone] Marija Olivas APRN C.N.P., M.S.N. [address] [place] [phone] Myriam Mayers R.N., [facility] [address] [place] [phone] Insomnia Social History Tobacco Use Types Packs/Day Years Used Date Smoking Tobacco: Never Passive Smoke Exposure: Never Smokeless Tobacco: Never Alcohol Use Standard Drinks/Week Comments Not Currently 0 (1 standard drink = 0.6 oz pur e alcohol) Occasional [facility] Utilities Answer Date Recorded In the [...] your living situation today? [facility] 07/10/2023 Sex and Gender Information Value Date Recorded Sex Assigned at Female 05/31/2023 8:26 AM ACCOUNT DEVELOPMENT REPRESENTATIVE Gender Identity Female 05/31/2023 8:26 AM ACCOUNT DEVELOPMENT REPRESENTATIVE Sexual Orientation Straight 05/31/2023 8: 26 AM ACCOUNT DEVELOPMENT REPRESENTATIVE documented as of this encounter Progress Notes * Myriam Mayers, RSantoshN., [facility] - 02/04/2024 10:15 AM CDT PALLIATIVE CARE NURSING VISIT Patient Name: Tony Cota Age: 48 y.o. Reason for Palliative Medicine Nurse Visit: Auricular Acupressure for symptom management in the setting of sleep I introduced the patient to auricular acupressure as a healing modality for Problems with sleep management. Prior to initiating auricular acupressure, safety precautions were reviewed including skin integrity, and allergies. Patient verbalized understanding of rationale for auricular acupressure for symptom management and verbal consent was obtained to proceed with the session. ASSESSMENT Pre acupressure assessment: Reports acupressure has been helpful for sleep in the past. Generally reports beads stay on for 6 days without issue. Ear (s) used: left ear Auricular protocol selected: Sleep Acupoints used: Heart, Liver, Master Cerebral , Point [place], and [employer] [place] Device used: Titanium Ear Beads Number of beads placed: 5 Post acupressure assessment: Well tolerated RECOMMENDATION/PLAN Stimulation instructions provided: Gentle finger pressure several times/day Advised devices should be removed in 3-6 days or if pain, soreness, swelling, pinching, redness, heat, or itching develop. Reviewed most common auricular acupressure risks including local skin irritation/discomfort, mild tenderness or pain at the application site, and itching. Patient verbalized understanding of the above. Myriam Mayers R.N., [facility] Palliative Care Nurse [facility] documented in this encounter Plan of Treatment Upcoming Encounters Date Type Department Care Team (Late st Contact Info) Description 02/25/2024 10:00 AM CDT Clinical Communication Virtual Review in [place], [place] 200 [place] [phone] 02/27/2024 7:30 AM CDT Appointment Department of Radiology, [facility] in [place], [place] [address] [place] [phone] Zhane Granados APRN, C.N.P. [address] [place] [phone] 02/27/2024 8:45 AM CDT Clinical Support Department of Palliative Care in [place], [place] [address] [place] [phone] Bereket Johnson APRN, C.N.P., D.N.P. [address] [place] [phone] 02/27/2024 9:45 AM CDT Clinical Support Department of Palliative Care in [place], [place] [address] [place] [phone] Marija Olivas APRN, Harsha.N.P., M.S.N. [address] [place] [phone] 02/27/2024 11:00 AM CDT Lab Department of Laboratory Medicine and Pathology, [facility] in [address] [phone] Zhane Granados APRN, C.N.P. [address] [place] [phone] 02/27/2024 1:00 PM CDT Office Visit Department of Oncology in [address] [phone] Pérez Zuniga M.D., Ph.D. [address] [place] [phone] 02/27/2024 1:45 PM CDT Infusion Department of Oncology in [address] [phone] Zhane Granados APRN, C.N.P. [address] [place] [phone] 03/17/2024 7:00 AM CDT Clinical Communication Virtual Review in [address] [phone] 03/19/2024 10:45 AM CDT Clinical Support Department of Palliative Care in [place], [place] [address] [place] [phone] Marija Olivas APRN, C.N.P., M.S.N. [address] [place] [phone] 03/19/2024 11:30 AM CDT Office Visit Department of Palliative Care in [place], [place] [address] [place] [phone] Valentine Kelsey M.D., M.S. [address] [place] [phone] 03/19/2024 11:40 AM CDT Lab Department of Laboratory Medicine and Pathology, [facility] in [address] [phone] Zhane Granados APRN, C.N.P. [address] [place] [phone] 03/19/2024 1:40 PM CDT Office Visit Department of Oncology in [address] [phone] Pérez Zuniga M.D., Ph.D. [address] [place] [phone] 03/19/2024 2:45 PM CDT Infusion Department of Oncology in [address] [phone] Zhane Granados APRN, C.N.P. [address] [place] [phone] 03/24/2024 3:00 PM CDT Clinical Communication Virtual Review in [place], [place] 200 [place] [phone] 03/26/2024 7:45 AM CDT Appointment Department of Radiology, [facility], in [address] [phone] Zhane Granados APRN, C.N.P. [address] [place] [phone] 03/26/2024 3:20 PM CDT Office Visit Department of Oncology in [address] [phone] Pérez Zuniga M.D., Ph.D. [address] [place] [phone] documented as of this encounter Visit Diagnoses Diagnosis Insomnia documented in this encounter Additional Health Concerns Infection Onset Date Last Indicated Resolved Time Protective Environment 06/04/2023 06/04/2023 documented as of this encounter Care Teams Nitro Man Relationship Specialty Start Date End Date Elsewhere, Pcp PCP - General Family Medicine 06/17/23 documented as of this encounter
--- OUTSIDE RECORDS SUMMARY | 2024-02-21 15:06 | XMS_ITS | Encounter Summary ---
Author Organization [facility] Address [address] [place] [address] Care Team Providers Care Compensation And Benefits Manager Name Role Phone Elsewhere, Pcp Primary Care Provider Unavailabl e Reason for Referral * Cardiovascular-Diagnostic (Routine) - Closed Specialty Diagnoses / Procedures Referred By Contac t Referred To Contact Diagnoses Melanoma Trunk (HCC) Other Principal Statistical Scientist Current Drug Therapy Procedures Echo Transthoracic (TTE) Zhane Granados APRN, C.N.P. [address] [place] [phone] [facility] Referral ID Status Reason Start Date Expiration Date Visits Re quested Visits Authorized [id number] Closed 01/02/2024 01/01/2025 1 1 Reason for Visit * Cardiovascular-Diagnostic (Routine) - Closed Specialty Diagnoses / Procedures Referred By Contac t Referred To Contact Diagnoses Melanoma Trunk (HCC) Other Skilled Nursing Current Drug Therapy Procedures Echo Transthoracic (TTE) Zhane Granados APRN, C.N.P. [address] [place] [phone] [facility] Referral ID Status Reason Start Date Expiration Date Visits Re quested Visits Authorized [id number] Closed 01/02/2024 01/01/2025 1 1 Encounter Details Date Type Department Care Team (Latest Contact Info) Description 01/15/2024 8:20 AM CDT - 01/15/2024 11:59 PM CDT Hospital Encounter Department of Cardiovascular Diseases in [place], [place] [address] [place] [address] Zhane Granados APRN, C.N.P. [address] [place] [address] Melanoma Trunk (HCC); Other Skilled Nursing Current Drug Therapy Discharge Disposition: Home or Self Care Social History Tobacco Use Types Packs/Day Years Used Date Smoking Tobacco: Never Passive Smoke Exposure: Never Smokeless Tobacco: Never Alcohol Use Standard Drinks/Week Comments Not Currently 0 (1 standard drink = 0.6 oz pur e alcohol) Occasional [facility] Utilities Answer Date Recorded In the past 12 months has e [employer], [employer], oil, or water [employer] threatened to shut off services in your [...] your living situation today? I have a [facility] place to live 07/10/2023 Sex and Gender Information Value Date Recorded Sex Assigned at Female 05/31/2023 8:26 AM CORE MICROARCHITECT Gender Identity Female 05/31/2023 8:26 AM CORE MICROARCHITECT Sexual Orientation Straight 05/31/2023 8: 26 AM CORE MICROARCHITECT documented as of this encounter Medications at Time of Discharge Medication Sig Dispensed Refills Start Date End Date cetirizine (ZyrTEC) 10 mg tablet Take 10 mg by mouth 2 (two) times a day. Taking for rash hydrOXYzine (ATARAX) 25 mg tablet Take 25-50 [...] AM CDT Clinical Communication Virtual Review in [address] [phone] 02/27/2024 7:30 AM CDT Appointment Department of Radiology, [facility] in [address] [phone] Zhane Granados APRN, C.N.P. [address] [place] [phone] 02/27/2024 8:45 AM CDT Clinical Support Department of Palliative Care in [address] [phone] Bereket Johnson APRN, C.N.P., D.N.P. [address] [place] [phone] 02/27/2024 9:45 AM CDT Clinical Support Department of Palliative Care in [address] [phone] Marija Olivas APRN, C.NSimi., M.S.N. [address] [place] [phone] 02/27/2024 11:00 AM CDT Lab Department of Laboratory Medicine and Pathology, [facility], in [place], [place] [address] [place] [phone] Zhane Granados APRN, C.N.P. [address] [place] [phone] 02/27/2024 1:00 PM CDT Office Visit Department of Oncology in [place], [place] [address] [place] [phone] Pérez Zuniga M.D., Ph.D. [address] [place] [phone] 02/27/2024 1:45 PM CDT Infusion Department of Oncology in [place], [place] [address] [place] [phone] Zhane Granados APRN, C.N.P. [address] [place] [phone] 03/17/2024 7:00 AM CDT Clinical Communication Virtual Review in [place], [place] 200 [place] [address] 03/19/2024 10:45 AM CDT Clinical Support Department of Palliative Care in [place], [place] [address] [place] [phone] Marija Olivas APRN, C.NSimi., M.S.N. [address] [place] [phone] 03/19/2024 11:30 AM CDT Office Visit Department of Palliative Care in [place], [place] [address] [place] [phone] Valentine Kelsey M.D., M.S. [address] [place] [phone] 03/19/2024 11:40 AM CDT Lab Department of Laboratory Medicine and Pathology, [facility] in [place], [place] [address] [place] [phone] Zhane Granados APRN, C.N.P. [address] [place] [phone] 03/19/2024 1:40 PM CDT Office Visit Department of Oncology in [address] [phone] Pérez Zuniga M.D., Ph.D. [address] [place] [phone] 03/19/2024 2:45 PM CDT Infusion Department of Oncology in [place], [place] [address] [place] [phone] Zhane Granados APRN, C.N.P. [address] [place] [phone] 03/24/2024 3:00 PM CDT Clinical Communication Virtual Review in [place], [place] 200 [place] [address] 03/26/2024 7:45 AM CDT Appointment Department of Radiology, [facility], in [place], [place] [address] [place] [phone] Zhane Granados APRN, C.N.P. [address] [place] [phone] 03/26/2024 3:20 PM CDT Office Visit Department of Oncology in [address] [phone] Pérez Zuniga M.D., Ph.D. [address] [place] [address] documented as of this encounter Procedures Procedure Name Priority Date/Time Associated Diagnosis Comments (TTE) 2D LIMITED WITH LIMITED DOPPLER Routine 01/15/2024 9:28 AM CDT Melanoma Trunk (HCC) Other Principal Statistical Scientist Current Drug Therapy documented in this encounter Results * (TTE) 2D LIMITED WITH LIMITED DOPPLER [...] the complete report, see the Order-Level Documents. Zhane Granados APRN C.N.P. CV ECHO P ROCEDURES documented in this encounter Visit Diagnoses Diagnosis Melanoma Trunk (HCC) Other Skilled Nursing Current Drug Therapy documented in this encounter Additional Health Concerns Infection Onset Date Last Indicated Resolved Time Protective Environment 06/04/2023 06/04/2023 documented as of this encounter Care Teams Compensation And Benefits Manager Relationship Specialty Start Date End Date Elsewhere, Pcp PCP - General Family Medicine 06/17/23 documented as of this encounter
--- OUTSIDE RECORDS SUMMARY | 2024-02-21 15:06 | XMS_ITS | Encounter Summary ---
Author Organization [facility] Address [address] [place] [address] Care Team Providers Care Industrial Cleaner Name Role Phone Elsewhere, Pcp Primary Care Provider Unavailabl e Encounter Details Date Type Department Care Team (Late st Contact Info) Description 01/14/2024 Clinical Communication Department of Oncology in [place], [place] [address] [place] [phone] Zhane Granados, GAIL, C.N.P. [address] [place] [phone] Social History Tobacco Use Types Packs/Day Years [...] your living situation today? I have a [facility] place to live 07/10/2023 Sex and Gender Information Value Date Recorded Sex Assigned at Female 05/31/2023 8:26 AM PROGRAM COUNSELOR Gender Identity Female 05/31/2023 8:26 AM PROGRAM COUNSELOR Sexual Orientation Straight 05/31/2023 8: 26 AM PROGRAM COUNSELOR documented as of this encounter Plan of Treatment Upcoming Encounters Date Type Department Care Team (Late st Contact Info) Description 02/25/2024 10:00 AM CDT Clinical Communication Virtual Review in [place], [place] 200 [place] [address] 02/27/2024 7:30 AM CDT Appointment Department of Radiology, [facility] in [place], [place] [address] [place] [phone] Zhane Granados, GAIL, C.N.P. [address] [place] [phone] 02/27/2024 8:45 AM CDT Clinical Support Department of Palliative Care in [place], [place] [address] [place] [phone] Bereket Johnson APRN, C.N.P., D.N.P. [address] [place] [phone] 02/27/2024 9:45 AM CDT Clinical Support Department of Palliative Care in [place], [place] [address] [place] [phone] Marija Olivas APRN, C.N.P., M.S.N. [address] [place] [phone] 02/27/2024 11:00 AM CDT Lab Department of Laboratory Medicine and Pathology, [facility] in [place], [place] [address] [place] [phone] Zhane Granados APRN, C.N.P. [address] [place] [phone] 02/27/2024 1:00 PM CDT Office Visit Department of Oncology in [place], [place] [address] [place] [phone] Pérez Zuniga M.D., Ph.D. [address] [place] [phone] 02/27/2024 1:45 PM CDT Infusion Department of Oncology in [place], [place] [address] [place] [phone] Zhane Granados APRN, C.N.P. [address] [place] [phone] 03/17/2024 7:00 AM CDT Clinical Communication Virtual Review in [place], [place] 200 [place] [address] 03/19/2024 10:45 AM CDT Clinical Support Department of Palliative Care in [place], [place] [address] [place] [phone] Marija Olivas APRN, C.N.Dina., M.S.N. [address] [place] [phone] 03/19/2024 11:30 AM CDT Office Visit Department of Palliative Care in [place], [place] [address] [place] [phone] Valentine Kelsey M.D., M.S. [address] [place] [phone] 03/19/2024 11:40 AM CDT Lab Department of Laboratory Medicine and Pathology, [facility] in [place], [place] [address] [place] [phone] Zhane Granados APRN, C.N.P. [address] [place] [phone] 03/19/2024 1:40 PM CDT Office Visit Department of Oncology in [place], [place] [address] [place] [phone] Pérez Zuniga M.D., Ph.D. [address] [place] [phone] 03/19/2024 2:45 PM CDT Infusion Department of Oncology in [place], [place] [address] [place] [phone] Zhane Granados APRN, C.N.P. [address] [place] [phone] 03/24/2024 3:00 PM CDT Clinical Communication Virtual Review in [place], [place] 200 [place] [address] 03/26/2024 7:45 AM CDT Appointment Department of Radiology, [facility] in [place], [place] [address] [place] [address] Zahne Granados APRN, C.N.P. [address] [place] [phone] 03/26/2024 3:20 PM CDT Office Visit Department of Oncology in [place], [place] [address] [place] [phone] Pérez Zuniga M.D., Ph.D. [address] [place] [phone] documented as of this encounter Visit Diagnoses Not on filedocumented in this encounter Additional Health Concerns Infection Onset Date Last Indicated Resolved Time Protective Environment 06/04/2023 06/04/2023 documented as of this encounter Care Teams Industrial Cleaner Relationship Specialty Start Date End Date Elsewhere, Pcp PCP - General Family Medicine 06/17/23 documented as of this encounter
--- OUTSIDE RECORDS SUMMARY | 2024-02-21 15:06 | XMS_ITS | Encounter Summary ---
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 [address] [place] [phone] Rst On[facility] [address] [place] [phone] Referral ID Status Reason Start Date Expiration Date V isits Requested Visits Authorized [id number] Authorized 11/26/2023 11/25/2024 99 99 Encounter Details Date Type Department Care Team (Late st Contact Info) Description 01/15/2024 2:30 PM CDT Infusion Department of Oncology in [place], [place] [address] [place] [phone] Pérez Zuniga M.D., Ph.D. [address] [place] [phone] Melanoma Trunk (HCC) (Primary Dx); Secondary Malignant Neoplasm Brain (HCC); Secondary Malignant Neoplasm Bone (HCC) Social [...] Sex Assigned at Female 05/31/2023 8:26 AM FLATBED STITCHER Gender Identity Female 05/31/2023 8:26 AM FLATBED STITCHER Sexual Orientation Straight 05/31/2023 8: 26 AM FLATBED STITCHER documented as of this encounter Plan of Treatment Upcoming Encounters Date Type Department Care Team (Late st Contact Info) Description 02/25/2024 10:00 AM CDT Clinical Communication Virtual Review in [place], [place] 200 [place] [address] 02/27/2024 7:30 AM CDT Appointment Department of Radiology, [facility] in [place], [place] [address] [place] [phone] Zhane Granados APRN, C.N.P. [address] [place] [phone] 02/27/2024 8:45 AM CDT Clinical Support Department of Palliative Care in [place], [place] [address] [place] [phone] Bereket Johnson APRN, C.N.P., D.N.P. [address] [place] [phone] 02/27/2024 9:45 AM CDT Clinical Support Department of Palliative Care in [place], [place] [address] [place] [phone] Marija Olivas APRN, C.N.P., M.S.N. [address] [place] [phone] 02/27/2024 11:00 AM CDT Lab Department of Laboratory Medicine and Pathology, [facility] in [place], [place] [address] [place] [phone] Zhane Granados APRN, C.N.P. [address] [place] [phone] 02/27/2024 1:00 PM CDT Office Visit Department of Oncology in [place], [place] [address] [place] [phone] Pérez Zuniga M.D., Ph.D. [address] [place] [phone] 02/27/2024 1:45 PM CDT Infusion Department of Oncology in [place], [place] [address] [place] [phone] Zhane Granados APRN, C.N.P. [address] [place] [phone] 03/17/2024 7:00 AM CDT Clinical Communication Virtual Review in [place], [place] 200 [place] [address] 03/19/2024 10:45 AM CDT Clinical Support Department of Palliative Care in [place], [place] [address] [place] [phone] Marija Olivas APRN, C.N.P., M.S.N. [address] [place] [phone] 03/19/2024 11:30 AM CDT Office Visit Department of Palliative Care in [place], [place] [address] [place] [phone] Valentine Kelsey M.D., M.S. [address] [place] [phone] 03/19/2024 11:40 AM CDT Lab Department of Laboratory Medicine and Pathology, [facility], in [place], [place] [address] [place] [phone] Zhane Granados APRN, C.N.P. [address] [place] [phone] 03/19/2024 1:40 PM CDT Office Visit Department of Oncology in [place], [place] [address] [place] [phone] éPrez Zuniga M.D., Ph.D. [address] [place] [phone] 03/19/2024 2:45 PM CDT Infusion Department of Oncology in [place], [place] [address] [place] [phone] Zhane Granados APRN, C.N.P. [address] [place] [phone] 03/24/2024 3:00 PM CDT Clinical Communication Virtual Review in [place], [place] 200 [place] [phone] 03/26/2024 7:45 AM CDT Appointment Department of Radiology, [facility], in [address] [phone] Zhane Granados APRN, C.N.P. [address] [place] [phone] 03/26/2024 3:20 PM CDT Office Visit Department of Oncology in [address] [phone] Pérez Zuniga M.D., Ph.D. 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 81 kg Treatment plan Measured weight), intravenous, at 320 mL/hr, Administer over 30 Minutes, Once, On Sat01/15/24 at 1430, For 1 dose, Do not shake. Administer via heq-diewchc-fylimft in-line filter. Do not co-administer other drugs through the same infusion line. Flush after each dose. Administer after Nivolumab. Do not shake. Use low protein binding in-line filter. New Bag 01/15/2024 2:52 PM CDT 250 mg 320 mL/hr nivolumab 80 mg in NaCl 0.9% 66 mL IVPB (Opdivo) 80 mg (rounded from 81 mg = 1 mg/kg ? 81 kg Treatment plan Measured weight), intravenous, at 132 mL/hr, Administer over 30 Minutes, Once, On Sat01/15/24 at 1400, For 1 dose, Do not co-administer other drugs through the same infusion line. Give via 0.2 or 0.22 micron in-line filter. Do not shake. Use low protein binding in-line filter. New Bag 01/15/2024 2:14 PM CDT 80 mg 132 mL/ hr documented in this encounter Additional Health Concerns Infection Onset Date Last Indicated Resolved Time Protective Environment 06/04/2023 06/04/2023 documented as of this encounter Care Teams Office Communication Professor Relationship Specialty Start Date End Date Elsewhere, Pcp PCP - General Family Medicine 06/17/23 documented as of this encounter
--- OUTSIDE RECORDS SUMMARY | 2024-02-21 15:07 | XMS_ITS | Encounter Summary ---
Author Organization [facility] Address [address] [place] [address] Care Team Providers Care Room Service Food Service Attendant Name Role Phone Elsewhere, Pcp Primary Care Provider Unavailabl e Reason for Visit * Reason Onset Date Comments Labs Only 01/08/2024 Encounter Details Date Type Department Care Team (Late st Contact Info) Description 01/08/2024 Clinical Communication Department of Oncology in [place], [place] [address] [place] [phone] Anahy Amezcua, R.N., O.C.N. [address] [place] [phone] Labs Only Social History Tobacco Use Types Packs/Day Years Used Date Smoking Tobacco: Never Passive Smoke Exposure: Never Smokeless Tobacco: Never Alcohol Use Standard Drinks/Week Comments Not Currently 0 (1 standard drink = 0.6 oz pur e alcohol) Occasional [facility] Utilities Answer Date Recorded In the past 12 months has [employer], gas, oil, or water company threatened [...] Sex Assigned at Female 05/31/2023 8:26 AM CUT PRESS OPERATOR Gender Identity Female 05/31/2023 8:26 AM CUT PRESS OPERATOR Sexual Orientation Straight 05/31/2023 8: 26 AM CUT PRESS OPERATOR documented as of this encounter Plan of Treatment Upcoming Encounters Date Type Department Care Team (Late st Contact Info) Description 02/25/2024 10:00 AM CDT Clinical Communication Virtual Review in [place], [place] 200 [place] [address] 02/27/2024 7:30 AM CDT Appointment Department of Radiology, [facility] in [place], [place] [address] [place] [phone] Zhane Granados APRN, C.N.P. [address] [place] [phone] 02/27/2024 8:45 AM CDT Clinical Support Department of Palliative Care in [place], [place] [address] [place] [phone] Bereket Johnson APRN, C.N.P., D.N.P. [address] [place] [phone] 02/27/2024 9:45 AM CDT Clinical Support Department of Palliative Care in [place], [place] [address] [place] [phone] Marija Olivas APRN, C.N.P., M.S.N. [address] [place] [phone] 02/27/2024 11:00 AM CDT Lab Department of Laboratory Medicine and Pathology, [facility] in [place], [place] [address] [place] [phone] Zhane Granados APRN, C.N.P. [address] [place] [phone] 02/27/2024 1:00 PM CDT Office Visit Department of Oncology in [place], [place] [address] [place] [phone] Pérez Zuniga M.D., Ph.D. [address] [place] [phone] 02/27/2024 1:45 PM CDT Infusion Department of Oncology in [place], [place] [address] [place] [phone] Zhane Granados APRN, C.N.P. [address] [place] [phone] 03/17/2024 7:00 AM CDT Clinical Communication Virtual Review in [place], [place] 200 [place] [address] 03/19/2024 10:45 AM CDT Clinical Support Department of Palliative Care in [place], [place] [address] [place] [phone] Marija Olivas APRN, C.N.P., M.S.N. [address] [place] [phone] 03/19/2024 11:30 AM CDT Office Visit Department of Palliative Care in [place], [place] [address] [place] [phone] Valentine Kelesy M.D., M.S. [address] [place] [phone] 03/19/2024 11:40 AM CDT Lab Department of Laboratory Medicine and Pathology, [facility] in [place], [place] [address] [place] [phone] Zhane Granados APRN, C.N.P. [address] [place] [phone] 03/19/2024 1:40 PM CDT Office Visit Department of Oncology in [address] [phone] Pérez Zuniga M.D., Ph.D. [address] [place] [phone] 03/19/2024 2:45 PM CDT Infusion Department of Oncology in [place], [place] [address] [place] [phone] Zhane Granados APRN, C.N.P. [address] [place] [phone] 03/24/2024 3:00 PM CDT Clinical Communication Virtual Review in [place], [place] 200 [place] [address] 03/26/2024 7:45 AM CDT Appointment Department of Radiology, [facility] in [place], [place] [address] [place] [phone] Zhane Granados APRN, C.N.P. [address] [place] [phone] 03/26/2024 3:20 PM CDT Office Visit Department of Oncology in [place], [place] [address] [place] [phone] Pérez Zuniga M.D., Ph.D. [address] [place] [phone] documented as of this encounter Procedures Procedure Name Priority Date/Time Associated Diagnosis Comments HEMATOLOGY/ONCOLOGY - BLOOD, EXTERNAL LAB RESULTS Routine 01/07/2024 1:03 PM CDT documented in this encounter Results * (ABNORMAL) Hematology/Oncology - Blood, External Lab Results (01/07/2024 1:03 PM CDT) EXT AST 27 10 - 35 OTHER (SPECIFY IN CONTINUING EDUCATION INSTRUCTOR) EXT ALT 24 10 - 35 OTHER (SPECIFY IN CONTINUING EDUCATION INSTRUCTOR) EXT Alkaline Phosphatase 146(A) 35 - 104 OTHER (SPECIFY IN CONTINUING EDUCATION INSTRUCTOR) EXT Bilirubin, Total 0.2 0.0 - 1.2 OTHER (SPECIFY IN CONTINUING EDUCATION INSTRUCTOR) EXT Sodium 137 136 - 145 OTHER (SPECIFY IN CONTINUING EDUCATION INSTRUCTOR) EXT Potassium 4.8 3.5 - 5.1 OTHER (SPECIFY IN CONTINUING EDUCATION INSTRUCTOR) EXT Calcium, Total 8.8 8.6 - 10.0 OTHER (SPECIFY IN CONTINUING EDUCATION INSTRUCTOR) EXT Creatinine 0.74 0.50 - 0.90 OTHER (SPECIFY IN CONTINUING EDUCATION INSTRUCTOR) EXT Total Protein 7.0 6.0 - 8.0 OTHER (SPECIFY IN CONTINUING EDUCATION INSTRUCTOR) EXT Albumin 3.7(A) 4.0 - 4.9 OTHER (SPECIFY IN CONTINUING EDUCATION INSTRUCTOR) EXT Glucose, 180 Min 120(A) 70 - 99 OTHER (SPECIFY IN CONTINUING EDUCATION INSTRUCTOR) Blood 01/07/2024 1:03 PM CDT Historical Provider LAB BLOOD NON ADD-ON OTHER (SPECIFY IN CONTINUING EDUCATION INSTRUCTOR) N/A documented in this encounter Visit Diagnoses Not on filedocumented in this encounter Additional Health Concerns Infection Onset Date Last Indicated Resolved Time Protective Environment 06/04/2023 06/04/2023 documented as of this encounter Care Teams Room Service Food Service Attendant Relationship Specialty Start Date End Date Elsewhere, Pcp PCP - General Family Medicine 06/17/23 documented as of this encounter
--- OUTSIDE RECORDS SUMMARY | 2024-02-21 15:07 | XMS_ITS | Encounter Summary ---
Author Organization [facility] Address [address] [place] [address] Care Team Providers Care Director Service Name Role Phone Elsewhere, Pcp Primary Care Provider Unavailabl e Reason for Visit * Reason Onset Date Comments Pre-visit Intake 01/13/2024 Encounter Details Date Type Department Care Team (Latest Contact Info) Description 01/13/2024 12:45 PM CDT Clinical Communication Virtual Review in [place], [place] 200 [place] [address] Pre-visit Intake Social History Tobacco Use Types Packs/Day Years Used Date Smoking Tobacco: Never Passive Smoke Exposure: Never Smokeless Tobacco: Never Tobacco Cessation:Counseling Given: Not Answered Alcohol Use Standard Drinks/Week Comments Not Currently 0 (1 standard drink = 0.6 oz pur e alcohol) Occasional C Utilities Answer Date Recorded In the past 12 months has [employer], gas, oil, or water [employer] threatened to shut off services in your [...] your living situation today? I have a [facility] place to live 07/10/2023 Sex and Gender Information Value Date Recorded Sex Assigned at Female 05/31/2023 8:26 AM HEALTHCARE MANAGER Gender Identity Female 05/31/2023 8:26 AM HEALTHCARE MANAGER Sexual Orientation Straight 05/31/2023 8: 26 AM HEALTHCARE MANAGER documented as of this encounter Plan of Treatment Upcoming Encounters Date Type Department Care Team (Late st Contact Info) Description 02/25/2024 10:00 AM CDT Clinical Communication Virtual Review in [place], [place] 200 [place] [address] 02/27/2024 7:30 AM CDT Appointment Department of Radiology, [facility] in [place], [place] [address] [place] [phone] Zhane Granados APRN, C.N.P. [address] [place] [phone] 02/27/2024 8:45 AM CDT Clinical Support Department of Palliative Care in [place], [place] [address] [place] [phone] Bereket Johnson APRN, C.N.P., D.N.P. [address] [place] [phone] 02/27/2024 9:45 AM CDT Clinical Support Department of Palliative Care in [place], [place] [address] [place] [phone] Marija Olivas APRN, C.N.P., M.S.N. [address] [place] [phone] 02/27/2024 11:00 AM CDT Lab Department of Laboratory Medicine and Pathology, [facility], in [place], [place] [address] [place] [phone] Zhane Granados APRN, C.N.P. [address] [place] [phone] 02/27/2024 1:00 PM CDT Office Visit Department of Oncology in [address] [phone] Pérez Zuniga M.D., Ph.D. [address] [place] [phone] 02/27/2024 1:45 PM CDT Infusion Department of Oncology in [address] [phone] Zhane Granados APRN, C.N.P. [address] [place] [phone] 03/17/2024 7:00 AM CDT Clinical Communication Virtual Review in [place], [place] 200 [place] [address] 03/19/2024 10:45 AM CDT Clinical Support Department of Palliative Care in [place], [place] [address] [place] [phone] Marija Olivas APRN, C.N.Dina., M.S.N. [address] [place] [phone] 03/19/2024 11:30 AM CDT Office Visit Department of Palliative Care in [place], [place] [address] [place] [phone] Valentine Kelsey M.D., M.S. [address] [place] [phone] 03/19/2024 11:40 AM CDT Lab Department of Laboratory Medicine and Pathology, [facility] in [address] [phone] Zhane Granados APRN, C.N.P. [address] [place] [phone] 03/19/2024 1:40 PM CDT Office Visit Department of Oncology in [address] [phone] Pérez Zuniga M.D., Ph.D. [address] [place] [phone] 03/19/2024 2:45 PM CDT Infusion Department of Oncology in [address] [phone] Zhane Granados APRN, C.N.P. [address] [place] [phone] 03/24/2024 3:00 PM CDT Clinical Communication Virtual Review in [place], [place] 200 [place] [address] 03/26/2024 7:45 AM CDT Appointment Department of Radiology, [facility], in [address] [phone] Zhane Granados APRN, C.N.P. [address] [place] [address] 03/26/2024 3:20 PM CDT Office Visit Department of Oncology in [place], [place] [address] [place] [address] Pérez Zuniga M.D., Ph.D. [address] [place] [address] documented as of this encounter Visit Diagnoses Not on filedocumented in this encounter Additional Health Concerns Infection Onset Date Last Indicated Resolved Time Protective Environment 06/04/2023 06/04/2023 documented as of this encounter Care Teams Director Service Relationship Specialty Start Date End Date Elsewhere, Pcp PCP - General Family Medicine 06/17/23 documented as of this encounter
--- OUTSIDE RECORDS SUMMARY | 2024-02-21 15:07 | XMS_ITS | Encounter Summary ---
Author Organization [facility] Address [address] [place] [id number] Care Team Providers Care Beer Cooler Name Role Phone Elsewhere, Pcp Primary Care Provider Unavailabl e Reason for Visit * Reason Onset Date Comments 12/31/23 Labs 01/01/2024 Encounter Details Date Type Department Care Team (Late st Contact Info) Description 01/01/2024 Clinical Communication Department of Oncology in [place], [place] [address] [place] [phone] Anahy Amezcua, R.N., O.C.N. [address] [place] [phone] 12/31/23 Labs Social History Tobacco Use Types Packs/Day Years Used Date Smoking Tobacco: Never Passive Smoke Exposure: Never Smokeless Tobacco: Never Alcohol Use Standard Drinks/Week Comments Not Currently 0 (1 standard drink = 0.6 oz pur e alcohol) Occasional C Utilities Answer Date Recorded In the past 12 months has [employer] electric, gas, oil, or water company threatened [...] your living situation today? I have a [facility] place to live 07/10/2023 Sex and Gender Information Value Date Recorded Sex Assigned at Female 05/31/2023 8:26 AM LUGGAGE ATTENDANT Gender Identity Female 05/31/2023 8:26 AM LUGGAGE ATTENDANT Sexual Orientation Straight 05/31/2023 8: 26 AM LUGGAGE ATTENDANT documented as of this encounter Plan of Treatment Upcoming Encounters Date Type Department Care Team (Late st Contact Info) Description 02/25/2024 10:00 AM CDT Clinical Communication Virtual Review in [place], [place] [address] [place] [phone] 02/27/2024 7:30 AM CDT Appointment Department of Radiology, [facility] in [place], [place] [address] [place] [phone] Zhane Granados APRN, C.N.P. [address] [place] [phone] 02/27/2024 8:45 AM CDT Clinical Support Department of Palliative Care in [place], [place] [address] [place] [phone] Bereket Johnson APRN, C.N.P., D.N.P. [address] [place] [phone] 02/27/2024 9:45 AM CDT Clinical Support Department of Palliative Care in [place], [place] [address] [place] [phone] Marija Olivas APRN, Harsha.N.P., M.S.N. [address] [place] [phone] 02/27/2024 11:00 AM CDT Lab Department of Laboratory Medicine and Pathology, [facility] in [place], [place] [address] [place] [phone] Zahne Granados APRN, C.N.P. [address] [place] [phone] 02/27/2024 1:00 PM CDT Office Visit Department of Oncology in [place], [place] [address] [place] [phone] Pérez Zuniga M.D., Ph.D. [address] [place] [phone] 02/27/2024 1:45 PM CDT Infusion Department of Oncology in [place], [place] [address] [place] [phone] Zhane Granados APRN, C.N.P. [address] [place] [phone] 03/17/2024 7:00 AM CDT Clinical Communication Virtual Review in [place], [place] 200 [place] [address] 03/19/2024 10:45 AM CDT Clinical Support Department of Palliative Care in [place], [place] [address] [place] [phone] Marija Olivas APRN, Harsha.N.P., M.S.N. [address] [place] [phone] 03/19/2024 11:30 AM CDT Office Visit Department of Palliative Care in [place], [place] [address] [place] [phone] Valentine Kelsey M.D., M.S. [address] [place] [phone] 03/19/2024 11:40 AM CDT Lab Department of Laboratory Medicine and Pathology, [facility] in [address] [phone] Zhane Granados APRN, C.N.P. [address] [place] [phone] 03/19/2024 1:40 PM CDT Office Visit Department of Oncology in [address] [phone] Pérez Zuniga M.D., Ph.D. [address] [place] [phone] 03/19/2024 2:45 PM CDT Infusion Department of Oncology in [place], [place] [address] [place] [phone] Zhane Granados APRN, C.N.P. [address] [place] [phone] 03/24/2024 3:00 PM CDT Clinical Communication Virtual Review in [place], [place] 200 [place] [address] 03/26/2024 7:45 AM CDT Appointment Department of Radiology, [facility], in [place], [place] [address] [place] [address] Zhane Granados APRN, C.N.P. [address] [place] [phone] 03/26/2024 3:20 PM CDT Office Visit Department of Oncology in [place], [place] [address] [place] [phone] Pérez Zuniga M.D., Ph.D. [address] [place] [phone] documented as of this encounter Visit Diagnoses Not on filedocumented in this encounter Additional Health Concerns Infection Onset Date Last Indicated Resolved Time Protective Environment 06/04/2023 06/04/2023 documented as of this encounter Care Teams Beer Cooler Relationship Specialty Start Date End Date Elsewhere, Pcp PCP - General Family Medicine 06/17/23 documented as of this encounter
--- OUTSIDE RECORDS SUMMARY | 2024-02-21 15:07 | XMS_ITS | Encounter Summary ---
Author Organization [facility] Address [address] [place] [address] Care Team Providers Care Agricultural Lender Name Role Phone Elsewhere, Pcp Primary Care Provider Unavailabl e Encounter Details Date Type Department Care Team (Late st Contact Info) Description 01/02/2024 Orders Only Pharmacy Prior Auth RO [phone] Zhane Bose [address] [place] [phone] Social History Tobacco Use Types Packs/Day Years Used Date Smoking Tobacco: Never Passive Smoke Exposure: Never Smokeless Tobacco: Never Alcohol Use Standard Drinks/Week Comments Not Currently 0 (1 standard drink = 0.6 oz pur e alcohol) Occasional [facility] Utilities Answer Date Recorded In the past 12 months has [employer] gas, oil, or water [employer] threatened to shut off services in [...] your living situation today? I have a [facility] place to live 07/10/2023 Sex and Gender Information Value Date Recorded Sex Assigned at Female 05/31/2023 8:26 AM FIRST LINE SUPERVISOR Gender Identity Female 05/31/2023 8:26 AM FIRST LINE SUPERVISOR Sexual Orientation Straight 05/31/2023 8: 26 AM FIRST LINE SUPERVISOR documented as of this encounter Plan of Treatment Upcoming Encounters Date Type Department Care Team (Late st Contact Info) Description 02/25/2024 10:00 AM CDT Clinical Communication Virtual Review in [place], [place] 200 [place] [address] 02/27/2024 7:30 AM CDT Appointment Department of Radiology, [facility] in [place], [place] [address] [place] [phone] Zhane Granados APRN, C.N.P. [address] [place] [phone] 02/27/2024 8:45 AM CDT Clinical Support Department of Palliative Care in [address] [phone] Bereket Johnson APRN, C.N.P., D.N.P. [address] [place] [phone] 02/27/2024 9:45 AM CDT Clinical Support Department of Palliative Care in [place], [place] [address] [place] [phone] Marija Olivas APRN, C.N.Dina., M.S.N. [address] [place] [phone] 02/27/2024 11:00 AM CDT Lab Department of Laboratory Medicine and Pathology, [facility], in [place], [place] [address] [place] [phone] Zhane Granados APRN, C.N.P. [address] [place] [phone] 02/27/2024 1:00 PM CDT Office Visit Department of Oncology in [address] [phone] Pérez Zuniga M.D., Ph.D. [address] [place] [phone] 02/27/2024 1:45 PM CDT Infusion Department of Oncology in [address] [phone] Zhane Granados APRN, C.N.P. [address] [place] [phone] 03/17/2024 7:00 AM CDT Clinical Communication Virtual Review in [place], [place] 200 [place] [phone] 03/19/2024 10:45 AM CDT Clinical Support Department of Palliative Care in [address] [phone] Marija Olivas APRN, C.N.P., M.S.N. [address] [place] [phone] 03/19/2024 11:30 AM CDT Office Visit Department of Palliative Care in [place], [place] [address] [place] [phone] Valentine Kelsey M.D., M.S. [address] [place] [phone] 03/19/2024 11:40 AM CDT Lab Department of Laboratory Medicine and Pathology, [facility] in [place], [place] [address] [place] [phone] Zhane Granados APRN, C.N.P. [address] [place] [phone] 03/19/2024 1:40 PM CDT Office Visit Department of Oncology in [address] [phone] Pérez Zuniga M.D., Ph.D. [address] [place] [phone] 03/19/2024 2:45 PM CDT Infusion Department of Oncology in [address] [phone] Zhane Granados APRN, C.N.P. [address] [place] [phone] 03/24/2024 3:00 PM CDT Clinical Communication Virtual Review in [address] [phone] 03/26/2024 7:45 AM CDT Appointment Department of Radiology, [facility], in [address] [phone] Zhane Granados APRN, C.N.P. [address] [place] [address] 03/26/2024 3:20 PM CDT Office Visit Department of Oncology in [place], [place] [address] [place] [phone] Pérez Zuniga M.D., Ph.D. [address] [place] [phone] documented as of this encounter Visit Diagnoses Not on filedocumented in this encounter Additional Health Concerns Infection Onset Date Last Indicated Resolved Time Protective Environment 06/04/2023 06/04/2023 documented as of this encounter Care Teams Agricultural Lender Relationship Specialty Start Date End Date Elsewhere, Pcp PCP - General Family Medicine 06/17/23 documented as of this encounter
--- OUTSIDE RECORDS SUMMARY | 2024-02-21 15:07 | XMS_ITS | Encounter Summary ---
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 200 [place] [address] [facility] Referral ID Status Reason Start Date Expiration Date Visits Re quested Visits Authorized [id number] Closed 01/14/2024 01/13/2025 1 1 * Outpatient (Routine) - Closed Specialty Diagnoses / Procedures Referred By Contac t Referred To Contact Oncology Zhane Granados APRN, C.N.P. 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 [address] [place] [phone] [facility] Referral ID Status Reason Start Date Expiration Date V isits Requested Visits Authorized [id number] Authorized 01/14/2024 01/13/2025 1 1 * Outpatient (Routine) Specialty Diagnoses / Procedures Referred By Contac t Referred To Contact Oncology Zhane Granados APRN, C.N.P. [address] [place] [phone] [facility] Referral ID Status Reason Start Date Expiration Date Visits Re quested Visits Authorized * Outpatient (Routine) Specialty Diagnoses / Procedures Referred By Contac t Referred To Contact Oncology Zhane Granados APRN, C.N.P. [address] [place] [phone] [facility] Referral ID Status Reason Start Date Expiration Date Visits Re quested Visits Authorized * Outpatient (Routine) Specialty Diagnoses / Procedures Referred By Contac t Referred To Contact Oncology Zhane Granados APRN, C.N.P. 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 [address] [place] [phone] [facility] [address] [place] [phone] Referral ID Status Reason Start Date Expiration Date V isits Requested Visits Authorized [id number] Authorized 11/26/2023 11/25/2024 99 99 Encounter Details Date Type Department Care Team (Late st Contact Info) Description 01/14/2024 2:20 PM CDT Office Visit Department of Oncology in [place], [place] [address] [place] [phone] Zhane Granados APRN, C.N.P. [address] [place] [phone] Secondary Malignant Neoplasm Bone (HCC) (Primary Dx); Melanoma Trunk (HCC); Secondary Malignant Neoplasm Brain (HCC) Social History Tobacco Use Types Packs/Day Years Used Date Smoking Tobacco: Never Passive Smoke Exposure: Never Smokeless Tobacco: Never Tobacco Cessation:Counseling Given: Not Answered Alcohol Use Standard Drinks/Week Comments Not Currently 0 (1 standard drink = 0.6 oz pur e alcohol) Occasional C Utilities Answer Date Recorded In the past 12 months has e [employer], gas, oil, or water [employer] threatened to shut off services in your [...] your living situation today? I have a [facility] place to live 07/10/2023 Sex and Gender Information Value Date Recorded Sex Assigned at Female 05/31/2023 8:26 AM LAB SUPPORT TECH Gender Identity Female 05/31/2023 8:26 AM LAB SUPPORT TECH Sexual Orientation Straight 05/31/2023 8: 26 AM LAB SUPPORT TECH documented as of this encounter Last Filed Vital Signs Vital Sign Reading Time Taken Comments Blood Pressure 132/84 01/14/2024 2:20 PM CDT Pulse 76 01/14/2024 2:20 PM CDT Temperature 36.7 ??C (98.1 ??F) 01/14/2024 2:20 PM CD T Respiratory Rate 16 01/14/2024 2:20 PM CDT Oxygen Saturation 99% 01/14/2024 2:20 PM CDT Inhaled Oxygen Concentration - - Weight 86.2 kg (190 lb 0.6 oz) 01/14/2024 2:20 P M CDT Height 157.9 cm (5' 2.17) 01/14/2024 2:20 PM CD T Body Mass Index 34.57 01/14/2024 2:20 PM CDT documented in this encounter Progress Notes * Zhane Granados, GAIL, C.N.P. - 01/14/2024 2:20 PM CDT SUBJECTIVE CHIEF COMPLAINT/PURPOSE OF VISIT: [...] maltracking. 05/08/2023 Critical Imaging MRI Left Femur [facility] Interpretation Several 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 The largest is seen proximally extending off of the proximal [id number]. This involves the intertrochanteric left femurextending distally [...] diaphysis, which extends off of the proximal [id number]. 05/09/2023 Critical Imaging Chest X-ray Impression: 1. Suspicious right lower lung mass measuring up to 4.1 cm with a possible left scapular lytic lesion. Recommend CT chest for better characterization. 05/13/2023 Biopsy/Pathology [facility] Pathology Review FINAL DIAGNOSIS Left femur mass, biopsy ([id number]; 05/13/2023): Metastatic melanoma, diffusely positive for BRAF [...] trametinib. 08/08/[address] Abdomen Pelvis [facility] Interpretation IMPRESSION: 1. No evidence of [...] Au. The patient was asymptomatic from her [employer]IDENT[employer] disease. Given the patient's numerous (at least 10 lesions), it was felt that consideration of LINAC radiotherapy would be a good option. Referral to Radiation Oncology in [place]. 10/25/2023 - 10/25/2023 Radiation Therapy SRS to [...] returns for follow-up. Overall she states she has been feeling quite well since switchingto encorafenib/binimetinib. She has not had any fevers. She feels she has much more energy, and herrash has decreased significantly. ECOG performance status is 0. Past Medical/Surgical History: Past Medical History: Diagnosis Date Hypertension NOS 07/2020 Melanoma Skin (HCC) 05/24/23 Tumor Eye Benign Left 1995 Past Surgical History: Procedure Laterality Date EYE SURGERY TONSILLECTOMY 1995 ROS: As noted above otherwise negative noncontributory I reviewed the Medications, Allergies, Past Medical History, Social History, and Family History. OBJECTIVE VITAL SIGNS: Vitals: 01/14/24 1420 BP: 132/84 BP Location: Left arm Patient Position: Sitting Cuff Size: Regular Pulse: 76 Resp: 16 Temp: 36.7 ??C TempSrc: Tympanic SpO2: 99% Weight: 86.2 kg Height: 157.9 cm Rate your distress: 2 PHYSICAL EXAM: General: This is a well-appearing female who appears their stated age in no acute distress. Skin: Examined and significant only for previous surgical incisions. Minimally present trace rash on the arms Lymph: No palpable lymphadenopathy. Heart: Examined and normal. Lungs: Examined and normal. ASSESSMENT / PLAN #1 Metastatic BRAF mutant melanoma Mrs. Cota returns today prior to her 3rd cycle of induction ipilimumab/nivolumab, as well as for follow-up was starting encorafenib and binimetinib. She is tolerating this quite well. She underwent MRI of the brain today, which shows a couple of new areas concerning for small new metastasis. Otherwise she had significant positive response to recent SRS with LINAC. Discussed with Dr. Zuniga, and we will plan to repeat MRI in 1 month's time as well as she will be due for full restaging with a PET-CT scan. She is comfortable with this plan. #2 Elevated TSH Ms. Cota has TSH today of 64.5, with a free T4 of less than 0.3. This is consistent with an ICI induced hypothyroidism. We will plan to start her on levothyroxine 100 mcg daily and will recheck in 3weeks. PATIENT EDUCATION Ready to learn, no apparent [...] AM CDT Clinical Communication Virtual Review in [address] [phone] 02/27/2024 7:30 AM CDT Appointment Department of Radiology, [address] [phone] Zhane Granados APRN, C.N.P. [address] [place] [phone] 02/27/2024 8:45 AM CDT Clinical Support Department of Palliative Care in [address] [phone] Bereket Johnson APRN, C.N.P., D.N.P. [address] [place] [phone] 02/27/2024 9:45 AM CDT Clinical Support Department of Palliative Care in [address] [phone] Marija Olivas APRN, C.N.P., M.S.N. [address] [place] [phone] 02/27/2024 11:00 AM CDT Lab Department of Laboratory Medicine [facility], [facility] [address] [phone] Zhane Granados APRN, C.N.P. [address] [place] [phone] 02/27/2024 1:00 PM CDT Office Visit Department of Oncology in [place], [place] [address] [place] [phone] Pérez Zuniga M.D., Ph.D. [address] [place] [phone] 02/27/2024 1:45 PM CDT Infusion Department of Oncology in [place], [place] [address] [place] [phone] Zhane Granados APRN, C.N.P. [address] [place] [phone] 03/17/2024 7:00 AM CDT Clinical Communication Virtual Review in [place], [place] 200 [place] [phone] 03/19/2024 10:45 AM CDT Clinical Support Department of Palliative Care in [address] [phone] Marija Olivas APRN, C.N.P., M.S.N. [address] [place] [phone] 03/19/2024 11:30 AM CDT Office Visit Department of Palliative Care in [place], [place] [address] [place] [phone] Valentine Kelsey M.D., M.S. [address] [place] [phone] 03/19/2024 11:40 AM CDT Lab Department of Laboratory Medicine and Pathology, [facility], in [place], [place] [address] [place] [phone] Zhane Granados APRN, C.N.P. [address] [place] [phone] 03/19/2024 1:40 PM CDT Office Visit Department of Oncology in [place], [place] [address] [place] [phone] Pérez Zuniga M.D., Ph.D. [address] [place] [phone] 03/19/2024 2:45 PM CDT Infusion Department of Oncology in [place], [place] [address] [place] [phone] Zhane Granados APRN, C.N.P. [address] [place] [phone] 03/24/2024 3:00 PM CDT Clinical Communication Virtual Review in [place], [place] 200 [place] [phone] 03/26/2024 7:45 AM CDT Appointment Department of Radiology, [facility], in [address] [phone] Zhane Granados APRN, C.N.P. [address] [place] [phone] 03/26/2024 3:20 PM CDT Office Visit Department of Oncology in [address] [phone] Pérez Zuniga M.D., Ph.D. 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) Expected: 03/18/2024, Expires: 03/18/2025 LD (Lactate Dehydrogenase) Lab Routine 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) Expected: 03/18/2024, Expires: 03/18/2025 Thyroid Function [place] Lab Routine 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) Expected: 03/18/2024, Expires: 03/18/2025 CBC with Differential, Blood Lab Routine 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) Expected: 02/19/2024, Expires: 02/18/2027 Comprehensive Metabolic Panel Lab Routine 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) Expected: 02/19/2024, Expires: 02/18/2025 Bilirubin, Direct Lab Routine 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) Expected: 02/19/2024, Expires: 02/18/2025 LD (Lactate Dehydrogenase) Lab Routine 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) Expected: 02/19/2024, Expires: 02/18/2025 Thyroid Function [place] Lab Routine 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) Expected: 02/19/2024, Expires: 02/18/2025 MR Brain without and with IV Contrast Imaging RAD - Routine (most inpatients and all outpatients) 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) Expected: 02/11/2024, Expires: 04/15/2025 Scheduled Referrals Name Type Priority Associated Diagnoses Orde r Schedule Oncology office visit (clinic) Outpatient Referral Routine 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) Expected: 03/18/2024, Expires: 03/18/2025 Oncology office visit (clinic) Outpatient Referral Routine 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) Expected: 01/29/2024, Expires: 01/28/2025 Oncology office visit (clinic) Outpatient Referral Routine 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) Expected: 02/19/2024, Expires: 02/18/2025 Oncology office visit (clinic) Outpatient Referral Routine Expected: 02/11/2024, Expires: 04/15/2025 documented as of this encounter Results * PET CT Whole [...] RADIOPHARMACEUTICAL/MEDS: Route: intravenous fludeoxyglucose F 18 injection JAIL (FDG F-18),9.95 millicurie TECHNIQUE: ??F-18 FDG PET/CT [...] the bilateral tibias were previously off the [id number] now demonstrating SUV max values of 9.7 [...] RADIOPHARMACEUTICAL/MEDS: Route: intravenous fludeoxyglucose F 18 injection JAIL (FDG F-18),9.95 millicurie TECHNIQUE: F-18 FDG PET/CT [...] lesions demonstrate increasing FDG uptake including the [id number] body metastasis with new pathologic compression fracture, SUVmax of 13.1 (axial fused image 164), previously 8.6, and the right ischiummetastasis, SUV max 14.2 (axial fused image 281), previously 8.4. Metastases within the bilateral tibias were previously off uinxqbbc-ft-qeaf now demonstrating SUV max values of 9.7 [...] an SUV max of 1.4 (axial fused [id number]; CT image 142) and an 8 mm [...] uptake of the thyroid gland concerning forthyroiditis. Zhnae Granados APRN, C.N.P. [facility] [place] OCEDURES * (ABNORMAL) Thyroid Function [place] (02/04/2024 10:46 AM CDT) [facility] TSH, Sensitive 38.3(H) 0.3 - 4.2 mIU/L 02/04/2024 11:48 AM CDT DTL Blood (Blood, Venous) 02/04/2024 10:46 AM CDT 02/04/2024 11:15 AM CDT Zhane Granados APRN, C.N.P. LAB BLOOD ADD-ON [facility] [address] [place] [address], [facility] [address] [place] [address] * (ABNORMAL) LD (Lactate Dehydrogenase) (02/04/2024 10:46 AM CDT) [facility] LD 268(H) 122 - 222 U/L 02/04/2024 11:56 AM CDT DTL Blood (Blood, Venous) 02/04/2024 10:46 AM CDT 02/04/2024 11:35 AM CDT Harsha Roberts APRN.N.P. LAB BLOOD NON ADD-ON Performing Organization Address City/[facility]/ZIP Co de Phone Number [facility] [address] [place] [address], [place] [address] * Bilirubin, Direct (02/04/2024 10:46 AM CDT) Bilirubin, Direct, S <0.2 0.0 - 0.3 mg/dL 02/04/2024 11:48 AM CDT DTL Blood (Blood, Venous) 02/04/2024 10:46 AM CDT 02/04/2024 11:15 AM CDT Harsha Roberts APRN.N.P. LAB BLOOD ADD-ON Performing Organization Address City/[facility] Co de Phone Number [facility] 200 [place] [address], [address] [address] * (ABNORMAL) Comprehensive Metabolic Panel (02/04/2024 10:46 AM CDT) Potassium, S 4.6 3.6 - 5.2 mmol/L [...] CDT 02/04/2024 11:15 AM CDT Zhane Granados APRN C.N.P. LAB BLOOD ADD-ON [facility] [address] [place] [address], [facility] [address] [place] [address] * (ABNORMAL) CBC with Differential, Blood (02/04/2024 10:46 AM CDT) Hemoglobin 11.2(L) 11.6 - 15.0 g/dL 02/04/2024 [...] CDT 02/04/2024 11:01 AM CDT Zhane Granados APRN CSantoshN.PSantosh LAB BLOOD ADD-ON [facility] [address] [place] [address], [facility] DTL [facility] [address] [place] [address] [facility] [address] [place] [address] documented in this encounter Visit Diagnoses Diagnosis Secondary Malignant Neoplasm Bone (HCC)- Primary 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
--- OUTSIDE RECORDS SUMMARY | 2024-02-21 15:07 | XMS_ITS | Encounter Summary ---
Author Organization [facility] Address [address] [place] [address] Care Team Providers Care Gas Well Drilling Manager Name Role Phone Elsewhere, Pcp Primary Care Provider Unavailabl e Reason for Visit * Outpatient (Routine) - Closed Specialty Diagnoses / Procedures Referred By Mikki t Referred To Contact Palliative Medicine Valentine Kelsey M.D., M.S. [address] [place] [phone] [facility] Referral ID Status Reason Start Date Expiration Date Visits Re quested Visits Authorized [id number] Closed 11/26/2023 05/27/2025 1 1 Encounter Details Date Type Department Care Team (Late st Contact Info) Description 12/26/2023 11:30 AM CDT Office Visit Department of Palliative Care in [place], [place] [address] [place] [phone] Valentine Kelsey M.D., M.S. [address] [place] [address] [phone] Radha Sheldon M.D. [address] [place] [phone] Melanoma Trunk (HCC) (Primary Dx); Secondary Malignant Neoplasm Brain (HCC); Secondary Malignant Neoplasm Bone (HCC); Nausea; Palliative Care Social History Tobacco Use Types Packs/Day Years Used Date Smoking Tobacco: Never Passive Smoke Exposure: Never Smokeless Tobacco: Never Alcohol Use Standard Drinks/Week Comments Not Currently 0 (1 standard drink = 0.6 oz pur e alcohol) Occasional [facility] Utilities Answer Date Recorded In the [...] your living situation today? I have a [facility] place to live 07/10/2023 Sex and Gender Information Value Date Recorded Sex Assigned at Female 05/31/2023 8:26 AM EMBEDDED HARDWARE ENGINEER Gender Identity Female 05/31/2023 8:26 AM EMBEDDED HARDWARE ENGINEER Sexual Orientation Straight 05/31/2023 8: 26 AM EMBEDDED HARDWARE ENGINEER documented as of this encounter Progress Notes * Radha Sheldon M.D. - 12/26/2023 11:30 AM CDT SUBJECTIVE CHIEF COMPLAINT/REASON FOR VISIT Tony Cota is a 48 y.o. female from [place], [place] with metastatic malignant melanoma, unknown primary, with brain mets (s/p SRS) who is followed in the outpatient Palliative Care Clinic for symptom management and support. Interval History: Seen today along with her mother. I was joined by Dr. Dony Eaton, IM resident. She shares gratitude and appreciation for the care from our team, allowing her to be seen as a person, mother and not just someone with cancer. She shares appreciation for the integrative therapies such as auricular acupressure, progressive muscle relaxation, allowing her to have symptom relief that might not carry some of the side effects of pharmacotherapy. She had auricular acupressure this morning for both nausea and sleep, continues on ondansetron. She had a visit with Onc this morning. In review of the Onc PharmD note after our visit, dabrafenib+ trametinib will need to be held due to her side effects. She is most hopeful to be able to drive again as this has been limiting her ability to be as activewith her children as she would like. She continues to have some pain in the left upper extremity. This is manageable and she does not think her medications need to be escalated to opioids again. She shares that she is limited in Tylenoland ibuprofen given liver function and ongoing cancer treatment. She acknowledges that pain in her arm has been a sign of progression before, indicating some concern about this today. She is having some ICI related side effects, including with a pruritic rash over her arms. She continues to show some gratitude, that is not involving her face. Oncology helping to manage this. She shares that she has been preparing herself to expect the unexpected, but living that reality isharder. ROS: As per HPI and patient reported data otherwise reviewed and non-contributory in the course of the current encounter. Post Scores Who completed this form?: Patient No [...] Pain = 10: 1 OBJECTIVE PHYSICAL EXAM Temperature: [35.2 ??C] 35.2 ??C Resp Rate: [16] 16 Blood Pressure: (119)/(75) 119/75 SpO2: [98 %] 98 % Height: [158.8 cm] 158.8 cm Weight: [79.8 kg] 79.8 kg BSA (Calculated - sq m): [1.87 sq meters] 1.87 sq meters BMI (Calculated): [31.6 kg/m??] 31.6 kg/m?? Pulse Rate: [108] 108 Physical Exam General: no acute distress, pleasantly interactive, overall seems to be feeling well, some tearfulness for brief moments, appropriate for situation Lungs: No use of accessory muscles of respiration, non-labored breathing pattern. Musculoskeletal: Normal gait. Psychiatric: Oriented X3, intact recent and remote memory, judgment and insight, congruent mood andaffect. ASSESSMENT / PLAN #1 Metastatic malignant melanoma, unknown primary, with brain mets (s/p SRS) #2 Nausea, managed #3 Coping #4 Palliative care Tony Cota is a 48 y.o. female from [place], [place] with metastatic malignant melanoma, unknown primary, with brain mets (s/p SRS) who is followed in the outpatient Palliative Care Clinic for symptom management and support. Overall, no changes today. She continues to value her interactions with our team, just to be able to talk to her as a person. We are honored to be a part of her care team. Thank you for the opportunity to see this patient. Patient has our contact information and understands to call with new/worsening symptoms or concerns. We will work alongside the primary outpatient team to address these issues. Palliative care outpatient clinic will continue to follow along. Follow up visit: provider 4-6 weeks, sooner if needs arise, with Dr. Kelsey, clinic visit or virtual Total time spent was 20 minutes Radha Sheldon M.D. documented in this encounter Plan of Treatment Upcoming Encounters Date Type Department Care Team (Late st Contact Info) Description 02/25/2024 10:00 AM CDT Clinical Communication Virtual Review in [place], [place] 200 [place] [phone] 02/27/2024 7:30 AM CDT [facility] [place], [place] [address] [place] [phone] Zhane Granados APRN, C.N.P. [address] [place] [phone] 02/27/2024 8:45 AM CDT Clinical Support Department of Palliative Care in [address] [phone] Bereket Johnson APRN, C.N.P., D.N.P. [address] [place] [phone] 02/27/2024 9:45 AM CDT Clinical Support Department of Palliative Care in [address] [phone] Marija Olivas APRN, C.N.P., M.S.N. [address] [place] [phone] 02/27/2024 11:00 AM CDT Lab Department of Laboratory Medicine and Pathology, [facility] in [place], [place] [address] [place] [phone] Zhane Granados APRN, C.N.P. [address] [place] [phone] 02/27/2024 1:00 PM CDT Office Visit Department of Oncology in [place], [place] [address] [place] [phone] Pérez Zuniga M.D., Ph.D. [address] [place] [phone] 02/27/2024 1:45 PM CDT Infusion Department of Oncology in [place], [place] [address] [place] [phone] Zhane Granados APRN, C.N.P. [address] [place] [phone] 03/17/2024 7:00 AM CDT Clinical Communication Virtual Review in [address] [phone] 03/19/2024 10:45 AM CDT Clinical Support Department of Palliative Care in [address] [phone] Marija Olivas APRN, C.N.P., M.S.N. [address] [place] [phone] 03/19/2024 11:30 AM CDT Office Visit Department of Palliative Care in [address] [phone] Valentine Kelsey M.D., M.S. [address] [place] [phone] 03/19/2024 11:40 AM CDT Lab Department of Laboratory Medicine and Pathology, [facility], in [address] [phone] Zhane Granados APRN, C.N.P. [address] [place] [phone] 03/19/2024 1:40 PM CDT Office Visit Department of Oncology in [place], [place] [address] [place] [phone] Pérez Zuniga M.D., Ph.D. [address] [place] [phone] 03/19/2024 2:45 PM CDT Infusion Department of Oncology in [place], [place] [address] [place] [phone] Zhane Granados APRN, C.N.P. [address] [place] [phone] 03/24/2024 3:00 PM CDT Clinical Communication Virtual Review in [place], [place] 200 [place] [address] 03/26/2024 7:45 AM CDT Appointment Department of Radiology, [facility] [place], in [place], [place] [address] [place] [phone] Zhane Granados APRN, C.N.P. [address] [place] [phone] 03/26/2024 3:20 PM CDT Office Visit Department of Oncology in [place], [place] [address] [place] [phone] Pérez Zuniga M.D., Ph.D. [address] [place] [phone] documented as of this encounter Visit Diagnoses Diagnosis Melanoma Trunk (HCC)- Primary 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) Nausea Palliative Care documented in this encounter Additional Health Concerns Infection Onset Date Last Indicated Resolved Time Protective Environment 06/04/2023 06/04/2023 documented as of this encounter Care Teams Gas Well Drilling Manager Relationship Specialty Start Date End Date Elsewhere, Pcp PCP - General Family Medicine 06/17/23 documented as of this encounter
--- OUTSIDE RECORDS SUMMARY | 2024-02-21 15:07 | XMS_ITS | Encounter Summary ---
Author Organization [facility] Address [address] [place] [address] Care Team Providers Care Geek Squad Agent Name Role Phone Elsewhere, Pcp Primary Care Provider Unavailabl e Reason for Visit * Reason Onset Date Comments Pre-visit Intake 12/23/2023 Encounter Details Date Type Department Care Team (Latest Contact Info) Description 12/23/2023 12:45 PM CDT Clinical Communication Virtual Review in [address] [phone] Pre-visit Intake Social History Tobacco Use Types Packs/Day Years Used Date Smoking Tobacco: Never Passive Smoke Exposure: Never Smokeless Tobacco: Never Alcohol Use Standard Drinks/Week Comments Not Currently 0 (1 standard drink = 0.6 oz pur e alcohol) Occasional [facility] Utilities Answer Date Recorded In the past 12 months has [employer], gas, oil, or water [employer] threatened to shut off services in [...] your living situation today? I have a [facility] place to live 07/10/2023 Sex and Gender Information Value Date Recorded Sex Assigned at Female 05/31/2023 8:26 AM ENGINEERING AND DEVELOPMENT DIRECTOR Gender Identity Female 05/31/2023 8:26 AM ENGINEERING AND DEVELOPMENT DIRECTOR Sexual Orientation Straight 05/31/2023 8: 26 AM ENGINEERING AND DEVELOPMENT DIRECTOR documented as of this encounter Plan of Treatment Upcoming Encounters Date Type Department Care Team (Late st Contact Info) Description 02/25/2024 10:00 AM CDT Clinical Communication Virtual Review in [place], [place] 200 [place] [address] 02/27/2024 7:30 AM CDT Appointment Department of Radiology, [facility] in [place], [place] [address] [place] [phone] Zhane Granados APRN, C.N.P. [address] [place] [phone] 02/27/2024 8:45 AM CDT Clinical Support Department of Palliative Care in [place], [place] [address] [place] [phone] Bereket Johnson APRN, C.N.P., D.N.P. [address] [place] [phone] 02/27/2024 9:45 AM CDT Clinical Support Department of Palliative Care in [place], [place] [address] [place] [phone] Marija Olivas APRN, C.N.P., M.S.N. [address] [place] [phone] 02/27/2024 11:00 AM CDT Lab Department of Laboratory Medicine and Pathology, [facility] in [place], [place] [address] [place] [phone] Zhane Granados APRN, C.N.P. [address] [place] [phone] 02/27/2024 1:00 PM CDT Office Visit Department of Oncology in [place], [place] [address] [place] [phone] Pérez Zuniga M.D., Ph.D. [address] [place] [phone] 02/27/2024 1:45 PM CDT Infusion Department of Oncology in [place], [place] [address] [place] [phone] Zhane Granados APRN, C.N.P. [address] [place] [phone] 03/17/2024 7:00 AM CDT Clinical Communication Virtual Review in [place], [place] 200 [place] [address] 03/19/2024 10:45 AM CDT Clinical Support Department of Palliative Care in [place], [place] [address] [place] [phone] Marija Olivas APRN C.N.P., M.S.N. [address] [place] [phone] 03/19/2024 11:30 AM CDT Office Visit Department of Palliative Care in [place], [place] [address] [place] [phone] Valentine Kelsey M.D., M.S. [address] [place] [phone] 03/19/2024 11:40 AM CDT Lab Department of Laboratory Medicine and Pathology, [facility] in [place], [place] [address] [place] [phone] Zhane Granados APRN, C.N.P. [address] [place] [phone] 03/19/2024 1:40 PM CDT Office Visit Department of Oncology in [place], [place] [address] [place] [phone] Pérez Zuniga M.D., Ph.D. [address] [place] [phone] 03/19/2024 2:45 PM CDT Infusion Department of Oncology in [address] [phone] Zhane Granados APRN, C.N.P. [address] [place] [phone] 03/24/2024 3:00 PM CDT Clinical Communication Virtual Review in [place], [place] 200 [place] [address] 03/26/2024 7:45 AM CDT Appointment Department of Radiology, [facility] in [place], [place] [address] [place] [phone] Zhane Granados APRN, C.N.P. [address] [place] [phone] 03/26/2024 3:20 PM CDT Office Visit Department of Oncology in [place], [place] [address] [place] [phone] Pérez Zuniga M.D., Ph.D. [address] [place] [phone] documented as of this encounter Visit Diagnoses Not on filedocumented in this encounter Additional Health Concerns Infection Onset Date Last Indicated Resolved Time Protective Environment 06/04/2023 06/04/2023 documented as of this encounter Care Teams Geek Squad Agent Relationship Specialty Start Date End Date Elsewhere, Pcp PCP - General Family Medicine 06/17/23 documented as of this encounter
--- OUTSIDE RECORDS SUMMARY | 2024-02-21 15:07 | XMS_ITS | Encounter Summary ---
Author Organization [facility] Address [address] [place] [address] Care Team Providers Care School Director Name Role Phone Elsewhere, Pcp Primary Care Provider Unavailabl e Reason for Referral * Outpatient (Routine) - Closed Specialty Diagnoses / Procedures Referred By Mikki feliciano Referred To Contact Palliative Medicine Diagnoses Palliative Care Radha Sheldon M.D. 200 [place] [address] [facility] Referral ID Status Reason Start Date Expiration Date Visits Re quested Visits Authorized [id number] Closed 12/26/2023 06/26/2025 1 1 Scheduling Instructions Has an order for Reiki as well, ask if she would like to schedule that too or wait until later in January Reason for Visit * Outpatient (Routine) - Authorized Specialty Diagnoses / Procedures Referred By Contac t Referred To Contact Palliative Medicine Diagnoses Palliative Care Bereket Johnson APRN, C.N.P., D.N.P. [address] [place] [phone] [facility] Referral ID Status Reason Start Date Expiration Date V isits Requested Visits Authorized [id number] Authorized 10/29/2023 04/29/2025 3 3 Encounter Details Date Type Department Care Team (Latest Contact Info) Description 12/26/2023 10:15 AM CDT Clinical Support Department of Palliative Care in [place], [place] [address] [place] [address] Bereket Johnson APRN, C.N.P., D.N.P. [address] [place] [phone] Yvette Clemens R.N., [facility] Palliative Care (Primary Dx) Social History Tobacco Use Types Packs/Day Years Used Date Smoking Tobacco: Never Passive Smoke Exposure: Never Smokeless Tobacco: Never Alcohol Use Standard Drinks/Week Comments Not Currently 0 (1 standard drink = 0.6 oz pur e alcohol) Occasional [facility] Utilities Answer Date Recorded In the past 12 months has [employer], gas, oil, or water [employer] threatened to shut off services in your [...] Sex Assigned at Female 05/31/2023 8:26 AM ABLE BODIED WATCHMAN Gender Identity Female 05/31/2023 8:26 AM ABLE BODIED WATCHMAN Sexual Orientation Straight 05/31/2023 8: 26 AM ABLE BODIED WATCHMAN documented as of this encounter Progress Notes * Yvette Clemens R.N., [facility] - 12/26/2023 10:15 AM CDT PALLIATIVE CARE NURSING VISIT Patient Name: Tony Cota Age: 48 y.o. Reason for Palliative Medicine Nurse Visit: Auricular Acupressure for symptom management in the setting of complex illness I introduced the patient to auricular acupressure as a healing modality for Problems with sleep andnausea management. Prior to initiating auricular acupressure, safety precautions were reviewed including skin integrity, and allergies. Patient verbalized understanding of rationale for auricular acup ressure for symptom management and verbal consent was obtained to proceed with the session. ASSESSMENT Tony is accompanied by her mother today. She states she is doing ok. A bit tearful when asked about her Oncology visit but shares things could be worse. She chose not to elaborate on this and focus on positive energy. Tony states she is go grateful for the opportunity to receive integrative therapies. Her daughter recently graduation from high school and they had a nice celebration. Pre acupressure assessment: 6/10 sleep improves to 4/[address]. She reports increased nausea for a few days after immunotherapy infusion and prefers we add additional beads again. Ear (s) used: bilateral Auricular protocol selected: left ear: Sleep; left ear +3 points for nausea: spleen, stomach, esophagus Acupoints used: Heart, Liver, Master Cerebral , Point Zero, and [place] Spirit Humphrey Device used: Titanium Ear Beads Number of beads placed: 8 Post acupressure assessment: Tolerated procedure well RECOMMENDATION/PLAN Stimulation instructions provided: Gentle finger pressure several times/day Advised devices should be removed in 3-6 days or if pain, soreness, swelling, pinching, redness, heat, or itching develop. Reviewed most common auricular acupressure risks including local skin irritation/discomfort, mild tenderness or pain at the application site, and itching. Patient verbalized understanding of the above. Auricular Acupressure Treatment Sheet [id number] were provided and reviewed with the patient. Visit and plan was discussed with MD Yvette Almanza R.N., [facility] Palliative Care Nurse [facility] documented in this encounter Plan of Treatment Upcoming Encounters Date Type Department Care Team (Late st Contact Info) Description 02/25/2024 10:00 AM CDT Clinical Communication Virtual Review in [address] [phone] 02/27/2024 7:30 AM CDT Appointment Department of Radiology, [facility] in [address] [phone] Zhane Granados APRN, C.N.P. [address] [place] [phone] 02/27/2024 8:45 AM CDT Clinical Support Department of Palliative Care in [address] [phone] Bereket Johnson APRN, C.N.P., D.N.P. [address] [place] [phone] 02/27/2024 9:45 AM CDT Clinical Support Department of Palliative Care in [address] [phone] Marija Olivas APRN, C.N.P., M.S.N. [address] [place] [phone] 02/27/2024 11:00 AM CDT Lab Department of Laboratory Medicine and Pathology, [facility], in [address] [phone] Zhane Granados APRN, C.N.P. [address] [place] [phone] 02/27/2024 1:00 PM CDT Office Visit Department of Oncology in [address] [phone] Pérez Zuniga M.D., Ph.D. [address] [place] [phone] 02/27/2024 1:45 PM CDT Infusion Department of Oncology in [address] [phone] Zhane Granados APRN, C.N.P. [address] [place] [phone] 03/17/2024 7:00 AM CDT Clinical Communication Virtual Review in [place], [place] 200 [place] [address] 03/19/2024 10:45 AM CDT Clinical Support Department of Palliative Care in [address] [phone] Marija Olivas APRN, C.N.P., M.S.N. [address] [place] [phone] 03/19/2024 11:30 AM CDT Office Visit Department of Palliative Care in [address] [phone] Valentine Kelsey M.D., M.S. [address] [place] [phone] 03/19/2024 11:40 AM CDT Lab Department of Laboratory Medicine and Pathology, [facility], in [place], [place] [address] [place] [phone] Zhane Granados APRN, C.N.P. [address] [place] [phone] 03/19/2024 1:40 PM CDT Office Visit Department of Oncology in [address] [phone] Pérez Zuniga M.D., Ph.D. [address] [place] [phone] 03/19/2024 2:45 PM CDT Infusion Department of Oncology in [place], [place] [address] [place] [phone] Zhane Granados APRN, C.N.P. [address] [place] [phone] 03/24/2024 3:00 PM CDT Clinical Communication Virtual Review in [place], [place] 200 [place] [address] 03/26/2024 7:45 AM CDT Appointment Department of Radiology, [facility], in [place], [place] [address] [place] [phone] Zhane Granados APRN, C.N.P. [address] [place] [phone] 03/26/2024 3:20 PM CDT Office Visit Department of Oncology in [address] [phone] Pérez Zuniga M.D., Ph.D. [address] [place] [phone] Scheduled Referrals Name Type Priority Associated Diagnoses Order Schedule Palliative Care nurse therapy visit (clinic) Outpatient Referral Routine Palliative Care Expected: 01/15/2024, Expires: 03/27/2025 documented as of this encounter Visit Diagnoses Diagnosis Palliative Care- Primary documented in this encounter Additional Health Concerns Infection Onset Date Last Indicated Resolved Time Protective Environment 06/04/2023 06/04/2023 documented as of this encounter Care Teams School Director Relationship Specialty Start Date End Date Elsewhere, Pcp PCP - General Family Medicine 06/17/23 documented as of this encounter
--- OUTSIDE RECORDS SUMMARY | 2024-02-21 15:07 | XMS_ITS | Encounter Summary ---
Author Organization [facility] Address [address] [place] [address] Care Team Providers Care Vine Fruit Farming Supervisor Name Role Phone Elsewhere, Pcp Primary Care Provider Unavailabl e Encounter Details Date Type Department Care Team (Latest Contact Info) Description 01/02/2024 2:40 PM CDT Clinical Communication Department of Oncology in [place], [place] [address] [place] [address] Zhane Granados, VISITOR SERVICES COORDINATOR, C.N.P. [address] [place] [address] Mona Perez P, R.N. Social History Tobacco Use Types Packs/Day Years Used Date Smoking Tobacco: Never Passive Smoke Exposure: Never Smokeless Tobacco: Never Alcohol Use Standard Drinks/Week Comments Not Currently 0 (1 standard drink = 0.6 oz pur e alcohol) Occasional C Utilities Answer Date Recorded In the past 12 months has e [employer], gas, oil, or water company threatened to [...] your living situation today? I have a [facility] place to live 07/10/2023 Sex and Gender Information Value Date Recorded Sex Assigned at Female 05/31/2023 8:26 AM COLOR TELEVISION CONSOLE MONITOR Gender Identity Female 05/31/2023 8:26 AM COLOR TELEVISION CONSOLE MONITOR Sexual Orientation Straight 05/31/2023 8: 26 AM COLOR TELEVISION CONSOLE MONITOR documented as of this encounter Miscellaneous Notes * Telephone Encounter - Mona Perez, RSantoshN. - 01/06/2024 10:23 AM CDT ASSESSMENT Spoke with Ms. Cota in regards to her previous message. She reports that she is taking dexamethasone 2 mg twice a day, at 7:00 a.m. and 4:00 p.m. and is experiencing trouble sleeping. She also reports that she has been experiencing the ongoing rash which has been getting worse since her office visit on 12/26. She reports she has been having diffuse itchy red spots under her breasts, back, arms, and legs. She has been taking 2 Zyrtec pills in the morning and using the Kenalog cream at night. She does note that she experiences more itching at night. She does note that some spots are raised andwhen she scratches they can bleed. She has sent portal messages with pictures. PLAN Update Zhane and await recommendations Disposition/Recommendation: notified provider and awaiting recommendations. Information/Education: patient/caller able to teach back. Caller agreeable to plan of care: yes. The following references were used: nursing clinical judgement. * Addendum Note - Armani Nielson M.D., Ph.D. - 01/03/2024 9:31 AM CDT Addended by: ARMANI NIELSON on: 01/03/2024 09:31 AM Modules accepted: Orders * Telephone Encounter - Mona Perez R.N. - 01/02/2024 4:46 PM CDT Cancer Treatment Education Visit REASON FOR VISIT Met with Tony Cota for cancer treatment education for encorafenib and binimetinib. ASSESSMENT/PLAN Patient education provided per the cancer treatment letter attached in encounters. Printed materials provided to patient per Education Tab. Answered questions. Patient verbalized understanding and voiced appreciation for education. documented in this encounter Plan of Treatment Upcoming Encounters Date Type Department Care Team (Late st Contact Info) Description 02/25/2024 10:00 AM CDT Clinical Communication Virtual Review in [place], [place] [address] [place] [address] 02/27/2024 7:30 AM CDT Appointment Department of Radiology, [facility] in [place], [place] [address] [place] [phone] Zhane Granados APRN, C.N.P. [address] [place] [phone] 02/27/2024 8:45 AM CDT Clinical Support Department of Palliative Care in [place], [place] [address] [place] [address] Bereket Johnson APRN, C.N.P., D.N.P. [address] [place] [phone] 02/27/2024 9:45 AM CDT Clinical Support Department of Palliative Care in [place], [place] [address] [place] [phone] Marija Olivas APRN, C.N.P., M.S.N. [address] [place] [phone] 02/27/2024 11:00 AM CDT Lab Department of Laboratory Medicine [facility], [facility] [place], [place] [address] [place] [phone] Zhane Granados APRN, C.N.P. [address] [place] [phone] 02/27/2024 1:00 PM CDT Office Visit Department of Oncology in [place], [place] [address] [place] [phone] Armani Nielson M.D., Ph.D. [address] [place] [phone] 02/27/2024 1:45 PM CDT Infusion Department of Oncology in [place], [place] [address] [place] [phone] Zhane Granados APRN, C.N.P. [address] [place] [phone] 03/17/2024 7:00 AM CDT Clinical Communication Virtual Review in [place], [place] [address] [place] [address] 03/19/2024 10:45 AM CDT Clinical Support Department of Palliative Care in [address] [phone] Marija Olivas APRN, C.N.P., M.S.N. [address] [place] [phone] 03/19/2024 11:30 AM CDT Office Visit Department of Palliative Care in [address] [phone] Valentine Kelsey M.D., M.S. [address] [place] [phone] 03/19/2024 11:40 AM CDT Lab Department of Laboratory Medicine [facility], [facility] in [address] [phone] Zhane Granados APRN, C.N.P. [address] [place] [phone] 03/19/2024 1:40 PM CDT Office Visit Department of Oncology in [address] [phone] Armani Nielson M.D., Ph.D. [address] [place] [phone] 03/19/2024 2:45 PM CDT Infusion Department of Oncology in [address] [phone] Zhane Granados APRN, C.N.P. [address] [place] [phone] 03/24/2024 3:00 PM CDT Clinical Communication Virtual Review in [place], [place] [address] [place] [address] 03/26/2024 7:45 AM CDT Appointment Department of Radiology, [facility], in [place], [place] [address] [place] [phone] Zhane Granados APRN, C.N.P. [address] [place] [phone] 03/26/2024 3:20 PM CDT Office Visit Department of Oncology in [place], [place] [address] [place] [phone] Armani Nielson M.D., Ph.D. [address] [place] [phone] documented as of this encounter Visit Diagnoses Diagnosis Melanoma Trunk (HCC) documented in this encounter Additional Health Concerns Infection Onset Date Last Indicated Resolved Time Protective Environment 06/04/2023 06/04/2023 documented as of this encounter Care Teams Vine Fruit Farming Supervisor Relationship Specialty Start Date End Date Elsewhere, Pcp PCP - General Family Medicine 06/17/23 documented as of this encounter
--- OUTSIDE RECORDS SUMMARY | 2024-02-21 15:07 | XMS_ITS | Encounter Summary ---
Author Organization [facility] Address [address] [place] [id number] Care Team Providers Care Rigging Worker Name Role Phone Elsewhere, Pcp Primary Care Provider Unavailabl e Reason for Referral * Outpatient (Routine) - Closed Specialty Diagnoses / Procedures Referred By Mikki t Referred To Contact Palliative Medicine Radha Sheldon M.D. [address] [place] [phone] Valentine Kelsey M.D., M.S. [address] [place] [phone] Referral ID Status Reason Start Date Expiration Date Visits Re quested Visits Authorized [id number] Closed 12/26/2023 06/26/2025 1 1 Scheduling Instructions 4-6 weeks, Dr. Kelsey Encounter Details Date Type Department Care Team (Late st Contact Info) Description 12/26/2023 Orders Only Department of Palliative Care in [place], [place] [address] [place] [phone] Radha Sheldon M.D. [address] [place] [phone] Social History Tobacco Use Types Packs/Day Years Used Date Smoking Tobacco: Never Passive Smoke Exposure: Never Smokeless Tobacco: Never Alcohol Use Standard Drinks/Week Comments Not Currently 0 (1 standard drink = 0.6 oz pur e alcohol) Occasional [facility] Utilities Answer Date Recorded [...] your living situation today? I have a [facility] place to live 07/10/2023 Sex and Gender Information Value Date Recorded Sex Assigned at Female 05/31/2023 8:26 AM RIVER EXPEDITION GUIDE Gender Identity Female 05/31/2023 8:26 AM RIVER EXPEDITION GUIDE Sexual Orientation Straight 05/31/2023 8: 26 AM RIVER EXPEDITION GUIDE documented as of this encounter Plan of Treatment Upcoming Encounters Date Type Department Care Team (Late st Contact Info) Description 02/25/2024 10:00 AM CDT Clinical Communication Virtual Review in [place], [place] [address] [place] [address] 02/27/2024 7:30 AM CDT Appointment Department of Radiology, [facility] in [place], [place] [address] [place] [phone] Zhane Granados APRN, C.N.P. [address] [place] [phone] 02/27/2024 8:45 AM CDT Clinical Support Department of Palliative Care in [place], [place] [address] [place] [phone] Bereket Johnson APRN, C.N.P., D.N.P. [address] [place] [phone] 02/27/2024 9:45 AM CDT Clinical Support Department of Palliative Care in [place], [place] [address] [place] [phone] Marija Olivas APRN, C.N.P., M.S.N. [address] [place] [phone] 02/27/2024 11:00 AM CDT Lab Department of Laboratory Medicine and Pathology, [facility], in [place], [place] [address] [place] [phone] Zhane Granados APRN, C.N.P. [address] [place] [phone] 02/27/2024 1:00 PM CDT Office Visit Department of Oncology in [place], [place] [address] [place] [phone] Pérez Zuniga M.D., Ph.D. [address] [place] [phone] 02/27/2024 1:45 PM CDT Infusion Department of Oncology in [place], [place] [address] [place] [phone] Zhane Granados APRN, C.N.P. [address] [place] [phone] 03/17/2024 7:00 AM CDT Clinical Communication Virtual Review in [place], [place] [address] [place] [address] 03/19/2024 10:45 AM CDT Clinical Support Department of Palliative Care in [place], [place] [address] [place] [phone] Marija Olivas APRN, C.N.P., M.S.N. [address] [place] [phone] 03/19/2024 11:30 AM CDT Office Visit Department of Palliative Care in [place], [place] [address] [place] [phone] Valentine Kelsey M.D., M.S. [address] [place] [phone] 03/19/2024 11:40 AM CDT Lab Department of Laboratory Medicine and Pathology, [facility] in [place], [place] [address] [place] [phone] Zhane Granados APRN, C.N.P. [address] [place] [phone] 03/19/2024 1:40 PM CDT Office Visit Department of Oncology in [place], [place] [address] [place] [phone] Pérez Zuniga M.D., Ph.D. [address] [place] [phone] 03/19/2024 2:45 PM CDT Infusion Department of Oncology in [place], [place] [address] [place] [phone] Zhane Granados APRN, C.N.P. [address] [place] [phone] 03/24/2024 3:00 PM CDT Clinical Communication Virtual Review in [place], [place] 200 [place] [address] 03/26/2024 7:45 AM CDT Appointment Department of Radiology, [facility] in [place], [place] [address] [place] [phone] Zhane Granados APRN, C.N.P. [address] [place] [phone] 03/26/2024 3:20 PM CDT Office Visit Department of Oncology in [place], [place] [address] [place] [phone] Pérez Zuniga M.D., Ph.D. [address] [place] [phone] Scheduled Referrals Name Type Priority Associated Diagnoses Order Schedule Palliative Care office visit (clinic) Outpatient Referral Routine Expected: 01/23/2024, Expires: 03/27/2025 documented as of this encounter Visit Diagnoses Not on filedocumented in this encounter Additional Health Concerns Infection Onset Date Last Indicated Resolved Time Protective Environment 06/04/2023 06/04/2023 documented as of this encounter Care Teams Rigging Worker Relationship Specialty Start Date End Date Elsewhere, Pcp PCP - General Family Medicine 06/17/23 documented as of this encounter
--- OUTSIDE RECORDS SUMMARY | 2024-02-21 15:07 | XMS_ITS | Encounter Summary ---
Author Organization 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 [address] [place] [phone] [facility] [address] [place] [address] Referral ID Status Reason Start Date Expiration Date V isits Requested Visits Authorized [id number] Authorized 11/26/2023 11/25/2024 99 99 Encounter Details Date Type Department Care Team (Late st Contact Info) Description 12/26/2023 9:20 AM CDT Office Visit Department of Oncology in [place], [place] [address] [place] [phone] Zhane Granados, GAIL, C.N.P. [address] [place] [phone] Melanoma Trunk (HCC); Secondary Malignant Neoplasm Brain (HCC); Secondary Malignant Neoplasm Bone (HCC) Social History Tobacco Use Types Packs/Day Years Used Date Smoking Tobacco: Never Passive Smoke Exposure: Never Smokeless Tobacco: Never Tobacco Cessation:Counseling Given: Not Answered Alcohol Use Standard Drinks/Week Comments Not Currently 0 (1 standard drink = 0.6 oz pur e alcohol) Occasional [facility] Util[facility] Answer Date Recorded In the past 12 months has th [employer], gas, oil, or water [email or web address] threatened to shut off services in your [...] your living situation today? I have a [facility] place to live 07/10/2023 Sex and Gender Information Value Date Recorded Sex Assigned at Female 05/31/2023 8:26 AM EXPORT FREIGHT MANAGER Gender Identity Female 05/31/2023 8:26 AM EXPORT FREIGHT MANAGER Sexual Orientation Straight 05/31/2023 8: 26 AM EXPORT FREIGHT MANAGER documented as of this encounter Last Filed Vital Signs Vital Sign Reading Time Taken Comments Blood Pressure 119/75 12/26/2023 8:59 AM CDT Pulse 108 12/26/2023 8:59 AM CDT Temperature 35.2 ??C (95.4 ??F) 12/26/2023 8:59 AM CD T Respiratory Rate 16 12/26/2023 8:59 AM CDT Oxygen Saturation 98% 12/26/2023 8:59 AM CDT Inhaled Oxygen Concentration - - Weight 79.8 kg (175 lb 14.8 oz) 12/26/2023 8:59 AM CDT Height 158.8 cm (5' 2.52) 12/26/2023 8:59 AM CD T Body Mass Index 31.64 12/26/2023 8:59 AM CDT documented in this encounter Progress Notes * Zuleyma Newman, Pharm.D., R.Ph. - 12/26/2023 9:20 AM CDT Medication Management Services (MMS) SUBJECTIVE Tony Cota is a 48 y.o. female, who is seen by [facility] Pharmacist for metastatic melanoma of unknownprimary, [id number] mutation positive. She was referred by Pérez Zuniga M.D., Ph.D. per departmental standard of care. Patient was at the visit with her mom Cherelle. The patient does not appear cognitively impaired at this visit. The purpose of the visit is: assessment of laboratory values andclinical symptoms prior to Cycle 1 of ipilimumab + nivolumab + dabrafenib/trametinib. Collaborating provider today is Dr. Saima Vargas Primary collaborating provider is Dr. Pérez Zuniga [...] maltracking. 05/08/2023 Critical Imaging MRI Left Femur [facility] Interpretation Several 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 The largest is seen proximally extending off of the proximal wlhor-[id number]. This involves the intertrochanteric left femurextending distally [...] diaphysis, which extends off of the proximal hyloo-[id number]. 05/09/2023 Critical Imaging Chest X-ray Impression: 1. Suspicious right lower lung mass measuring up to 4.1 cm with a possible left scapular lytic lesion. Recommend CT chest for better characterization. 05/13/2023 Biopsy/Pathology [facility] Pathology Review FINAL DIAGNOSIS Left femur mass, biopsy ([id number]; 05/13/2023): Metastatic melanoma, diffusely positive for BRAF [...] trametinib. 08/08/[address] Abdomen Pelvis [facility] Interpretation IMPRESSION: 1. No evidence of [...] Au. The patient was asymptomatic from her [employer] disease. Given the patient's numerous (at least 10 lesions), it was felt that consideration of LINAC radiotherapy would be a good option. Referral to Radiation Oncology in [place]. 10/25/2023 - 10/25/2023 Radiation Therapy SRS to [...] 3 mg/kg Start Date: 11/26/2023 12/04/2023 - Radiation Therapy Radiation Therapy Treatment Details (Noted on 11/26/2023) Site: Bone Technique: SBRT Goal: Palliative Planned Treatment Start Date: 12/04/2023 Interval history: Ms. Cota returns for follow-up. She tolerated cycle 1, day 1 of ipilimumab 3 mg/kg + nivolumab 1 mg/kg well with no infusion related reactions. She continues dabrafenib 150 mg twice daily + trametinib 2 mg once daily. She reports she had not had any fevers for 2+ weeks on colchicine 1.2 mg twice daily and dexamethasone 2 mg twice daily. She tapered her colchicine to 1.2 mg once daily on 12/14/23 due to GI side effects. She states she had been feeling so well that she self tapered her dexamethasone on 12/21/23 to 2 mg QAM and 1 mg QPM. She remained afebrile until this morning when she spiked a fever to 101.8 degrees F. She will return her dexamethasone dosing to 2 mg twice daily today. She has a visible macropapular red rash on her arms, neck, stomach, upper thighs and on her back. She statesthe rash is itchy. She has been applying an over the counter cream with pramoxine to the rash. She has been getting her liver function tests checked weekly at home. She denies headache, lightheadedness, dizziness, somnolence, fever, chills, rigor, shortness of breath, cough, difficulty swallowing, irregular or rapid heart rate, myalgias, arthralgias, changes in urine or stool, diarrhea, constipation, or new pain. She denies symptoms of hyperthyroidism including: nervousness, anxiety, irritability, difficulty sleeping, sensitivity to heat, weight loss, twitching, or trembling. ECOG performance status is 0. Past Medical/Surgical History: Past Medical History: Diagnosis Date Hypertension NOS 07/2020 Melanoma Skin (HCC) 05/24/23 Tumor Eye Benign Left 1995 Past Surgical History: Procedure Laterality Date EYE SURGERY TONSILLECTOMY 1995 I reviewed the Medications, Allergies, Past Medical History, Social History, and Family History. 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 Cota is a very pleasant [id number]-female with metastatic melanoma of unknown primary with a BRAF V600E mutation currently on therapy with ipilimumab 3 mg/kg + nivolumab 1 mg/kg + dabrafenib 150 mg twice daily + trametinib 2 mg once daily. She continues colchicine 1.2 mg once daily (self tapered due to GI symptoms from twice daily) and dexamethasone 2 mg twice daily to control her fevers, chills, and rigors on dabrafenib + trametinib. She had been fever free for more than 2 weeks and decided to self taper her dexamethasone. She awoke this morning with a fever of 101.8 degrees F. She wasinstructed to go back to taking dexamethasone 2 mg twice daily. She has a grade 2 rash due to the ip ilimumab + nivolumab and will start cetirizine 10 mg once daily + triamcinolone 0.1% cream applied in a thin layer to the rash twice daily for 1 week then as needed. I note her TSH is 0.02 however she is not symptomatic. Overall, her clinical symptoms and laboratory values are limiting to her receiving her next doses of ipilimumab 3 mg/kg + nivolumab 1 mg/kg today. Per discussion with Zhane Granados APRN, TRACTOR OPERATOR [employer]AS[employer]EV[employer]ING, we will plan to hold her dabrafenib + trametinib for now and she will restart as instructed per Zhane Granados's note. Tony Cota expressed understanding of, and agreement with plan of care. She was provided a written summary of recommendations via patient online services. Plan of care was communicated to the care team. Total time spent was 15 minutes, with more than 50% of the time spent on counseling, coordination of care and patient education. Follow-up with pharmacist was not scheduled at this time. * Zhane Granados APRN, C.N.P. - 12/26/2023 9:20 AM CDT SUBJECTIVE CHIEF COMPLAINT/PURPOSE OF VISIT: Metastatic BRAF mutant melanoma Collaborating provider today is Dr. Felicity Vargas Primary collaborating provider is Dr. Pérez Zuniga [...] maltracking. 05/08/2023 Critical Imaging MRI Left Femur [facility] Interpretation Several 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 The largest is seen proximally extending off of the proximal licjj-cq-msww. This involves the intertrochanteric left femurextending distally [...] diaphysis, which extends off of the proximal dfurq-uj-hzlx. 05/09/2023 Critical Imaging Chest X-ray Impression: 1. Suspicious right lower lung mass measuring up to 4.1 cm with a possible left scapular lytic lesion. Recommend CT chest for better characterization. 05/13/2023 Biopsy/Pathology [facility] Pathology Review FINAL DIAGNOSIS Left femur mass, biopsy ([id number]; 05/13/2023): Metastatic melanoma, diffusely positive for BRAF [...] trametinib. 08/08/[address] Abdomen Pelvis [facility] Interpretation IMPRESSION: 1. No evidence of [...] Au. The patient was asymptomatic from her [employer] disease. Given the patient's numerous (at least 10 lesions), it was felt that consideration of LINAC radiotherapy would be a good option. Referral to Radiation Oncology in [place]. 10/25/2023 - 10/25/2023 Radiation Therapy SRS to [...] 3 mg/kg Start Date: 11/26/2023 12/04/2023 - Radiation Therapy Radiation Therapy Treatment Details (Noted on 11/26/2023) Site: Bone Technique: SBRT Goal: Palliative Planned Treatment Start Date: 12/04/2023 Interval history: Ms. Cota returns for follow-up. Unfortunately she was febrile (101.8) this am for the first time in 2 weeks. She is otherwise feeling well, aside from side effects from the colchicine (diarrhea, stomach upset). Please refer to Santosh Zuleyma Newman PharmD, BCOP, FHOPA note from today for further details. She continues to have ongoing rash. ECOG performance status is 0. Past Medical/Surgical History: Past Medical History: Diagnosis Date Hypertension NOS 07/2020 Melanoma Skin (HCC) 05/24/23 Tumor Eye Benign Left 1995 Past Surgical History: Procedure Laterality Date EYE SURGERY TONSILLECTOMY 1995 ROS: As noted above and in Ms. Newman note from today I reviewed the Medications, Allergies, Past Medical History, Social History, and Family History. OBJECTIVE VITAL SIGNS: Vitals: 12/26/23 0859 BP: 119/75 BP Location: Right arm Patient Position: Sitting Cuff Size: Regular Pulse: 108 Resp: 16 Temp: (!) 35.2 ??C TempSrc: Tympanic SpO2: 98% Weight: 79.8 kg Height: 158.8 cm No data recorded PHYSICAL EXAM: General: This is a well-appearing female who appears their stated age in no acute distress. Skin: Examined and significant only for previous surgical incisions. Examined and significant for maculopapular rash on the trunk, and upper arms. Lymph: No palpable lymphadenopathy. Heart: Examined and normal. Lungs: Examined and normal. ASSESSMENT / PLAN #1 Metastatic BRAF mutant melanoma Ms Cota presents today prior to her next cycle of Ipi/Nivo, while on Dbarafenib/trametinib. Unfortunately she has started having fevers again this am from her oral therapy. I have asked her to do the followin. Hold her DT until fever free for 48 hours without tylenol, while increasing her dex back to previous dosing. Continue colchicine at 1.2 mg per day for tolerability. 2. When restarting, start at dabrafenib 75 mg BID x 3 days, then restart trametinib at 2 mg daily for 3 days then increase dabrafenib back to full dose. We will also plan to repeat her MRI brain at her visit in January. PATIENT EDUCATION Ready to learn, no apparent learning barriers were identified; learning preferences include listening. Explained diagnosis and treatment plan; patient expressed understanding of the content. ADMINISTRATIVE BILLING I personally spent over half of a total 30 minutes face to face with the patient in counseling and discussion and/or coordination of care as described above. 25 Modifier is used as additional care was provided outside of chemotherapy clearance. documented in this encounter Plan of Treatment Upcoming Encounters Date Type Department Care Team (Late st Contact Info) Description 02/25/2024 10:00 AM CDT Clinical Communication Virtual Review in [place], [place] [address] [place] [phone] 02/27/2024 7:30 AM CDT Appointment Department of Radiology, [facility] in [place], [place] [address] [place] [phone] Zhane Granados APRN, C.N.P. [address] [place] [phone] 02/27/2024 8:45 AM CDT Clinical Support Department of Palliative Care in [place], [place] [address] [place] [phone] Bereket Johnson APRN, C.N.P., D.N.P. [address] [place] [phone] 02/27/2024 9:45 AM CDT Clinical Support Department of Palliative Care in [place], [place] [address] [place] [phone] Marija Olivas APRN, C.N.P., M.S.N. [address] [place] [phone] 02/27/2024 11:00 AM CDT Lab Department of Laboratory Medicine and Pathology, [facility], in [place], [place] [address] [place] [phone] Zhane Granados APRN, C.N.P. [address] [place] [phone] 02/27/2024 1:00 PM CDT Office Visit Department of Oncology in [place], [place] [address] [place] [phone] Pérez Zuniga M.D., Ph.D. [address] [place] [phone] 02/27/2024 1:45 PM CDT Infusion Department of Oncology in [place], [place] [address] [place] [phone] Zhane Granados APRN, C.N.P. [address] [place] [phone] 03/17/2024 7:00 AM CDT Clinical Communication Virtual Review in [place], [place] [address] [place] [phone] 03/19/2024 10:45 AM CDT Clinical Support Department of Palliative Care in [address] [phone] Marija Olivas APRN, C.N.P., M.S.N. [address] [place] [phone] 03/19/2024 11:30 AM CDT Office Visit Department of Palliative Care in [address] [phone] Valentine Kelsey M.D., M.S. [address] [place] [phone] 03/19/2024 11:40 AM CDT Lab Department of Laboratory Medicine and Pathology, [facility], in [address] [phone] Zhane Granados APRN, C.N.P. [address] [place] [phone] 03/19/2024 1:40 PM CDT Office Visit Department of Oncology in [address] [phone] Pérez Zuniga M.D., Ph.D. [address] [place] [phone] 03/19/2024 2:45 PM CDT Infusion Department of Oncology in [address] [phone] Zhane Granados APRN, C.N.P. [address] [place] [phone] 03/24/2024 3:00 PM CDT Clinical Communication Virtual Review in [place], [place] [address] [place] [phone] 03/26/2024 7:45 AM CDT Appointment Department of Radiology, [facility], in [place], [place] [address] [place] [phone] Zhane Granados APRN, C.N.P. [address] [place] [phone] 03/26/2024 3:20 PM CDT Office Visit Department of Oncology in [place], [place] [address] [place] [phone] Pérez Zuniga M.D., Ph.D. [address] [place] [phone] documented as of this encounter Results * MR Brain without and with IV Contrast (01/14/2024 6:52 AM CDT) Anatomical Region Laterality Modality Head, Brain, Neuroradiology RST [facility], [facility], [facility] N/A Magnetic Resonance Impressions 01/14/2024 9:09 AM [...] meningioma is stable since 05/29/2023. Zhane Granados APRN C.N.P. 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
--- OUTSIDE RECORDS SUMMARY | 2024-02-21 15:07 | XMS_ITS | Encounter Summary ---
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 [address] [place] [phone] [facility] [address] [place] [phone] Referral ID Status Reason Start Date Expiration Date V isits Requested Visits Authorized [id number] Authorized 11/26/2023 11/25/2024 99 99 Encounter Details Date Type Department Care Team (Late st Contact Info) Description 12/26/2023 12:15 PM CDT Infusion Department of Oncology in [place], [place] [address] [place] [phone] Pérez Zuniga M.D., Ph.D. [address] [place] [address] [phone] Melanoma Trunk (HCC) (Primary Dx); Secondary Malignant Neoplasm Brain (HCC); Secondary Malignant Neoplasm Bone (HCC) Social History Tobacco Use Types Packs/Day Years Used Date Smoking Tobacco: Never Passive Smoke Exposure: Never Smokeless Tobacco: Never Alcohol Use Standard Drinks/Week Comments Not Currently 0 (1 standard drink = 0.6 oz pur e alcohol) Occasional [facility] Utilities Answer Date Recorded In the [...] Sex Assigned at Female 05/31/2023 8:26 AM BENDER MACHINE Gender Identity Female 05/31/2023 8:26 AM BENDER MACHINE Sexual Orientation Straight 05/31/2023 8: 26 AM BENDER MACHINE documented as of this encounter Plan of Treatment Upcoming Encounters Date Type Department Care Team (Late st Contact Info) Description 02/25/2024 10:00 AM CDT Clinical Communication Virtual Review in [place], [place] 200 [place] [address] 02/27/2024 7:30 AM CDT Appointment Department of Radiology, [facility] in [place], [place] [address] [place] [phone] Zhane Granados APRN, C.N.P. [address] [place] [phone] 02/27/2024 8:45 AM CDT Clinical Support Department of Palliative Care in [place], [place] [address] [place] [phone] Beerket Johnson APRN, C.N.P., D.N.P. [address] [place] [phone] 02/27/2024 9:45 AM CDT Clinical Support Department of Palliative Care in [place], [place] [address] [place] [phone] Marija Olivas APRN, C.N.P., M.S.N. [address] [place] [phone] 02/27/2024 11:00 AM CDT Lab Department of Laboratory Medicine and Pathology, [facility] in [place], [place] [address] [place] [phone] Zhane Granados APRN, C.N.P. [address] [place] [phone] 02/27/2024 1:00 PM CDT Office Visit Department of Oncology in [place], [place] [address] [place] [phone] Pérez Zuniga M.D., Ph.D. [address] [place] [phone] 02/27/2024 1:45 PM CDT Infusion Department of Oncology in [place], [place] [address] [place] [phone] Zhane Granados APRN, C.N.P. [address] [place] [phone] 03/17/2024 7:00 AM CDT Clinical Communication Virtual Review in [place], [place] 200 [place] [address] 03/19/2024 10:45 AM CDT Clinical Support Department of Palliative Care in [place], [place] [address] [place] [phone] Marija Olivas APRN, C.N.P., M.S.N. [address] [place] [phone] 03/19/2024 11:30 AM CDT Office Visit Department of Palliative Care in [place], [place] [address] [place] [phone] Valentine Kelsey M.D., M.S. [address] [place] [phone] 03/19/2024 11:40 AM CDT Lab Department of Laboratory Medicine and Pathology, [facility], in [place], [place] [address] [place] [phone] Zhane Granados APRN, C.N.P. [address] [place] [phone] 03/19/2024 1:40 PM CDT Office Visit Department of Oncology in [place], [place] [address] [place] [phone] Pérez Zuniga M.D., Ph.D. [address] [place] [phone] 03/19/2024 2:45 PM CDT Infusion Department of Oncology in [place], [place] [address] [place] [phone] Zhane Granados APRN, C.N.P. [address] [place] [phone] 03/24/2024 3:00 PM CDT Clinical Communication Virtual Review in [place], [place] 200 [place] [phone] 03/26/2024 7:45 AM CDT Appointment Department of Radiology, [facility], in [address] [phone] Zhane Granados APRN, C.N.P. [address] [place] [phone] 03/26/2024 3:20 PM CDT Office Visit Department of Oncology in [address] [phone] Pérez Zuniga M.D., Ph.D. [address] [place] [phone] documented as of this encounter Visit Diagnoses Diagnosis Melanoma Trunk (HCC)- Primary 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) documented in this encounter Administered Medications Inactive Administered Medications - up to 3 most recent administrations Medication Order MAR Action Action Date Dose Rate Site ipilimumab 250 mg in NaCl 0.9% 160 mL IVPB (YERVOY) 250 mg (rounded from 243 mg = 3 mg/kg ? 81 kg Treatment plan Measured weight), intravenous, at 320 mL/hr, Administer over 30 Minutes, Once, On Radha 12/26/23 at 1330, For 1 dose, Do not shake. Administer via [id number] in-line filter. Do not co-administer other drugs through the same infusion line. Flush after each dose. Administer after Nivolumab. Do not shake. Use low protein binding in-line filter. New Bag 12/26/2023 1:38 PM CDT 250 mg 320 mL/hr nivolumab 80 mg in NaCl 0.9% 66 mL IVPB (OPDIVO) 80 mg (rounded from 81 mg = 1 mg/kg ? 81 kg Treatment plan Measured weight), intravenous, at 132 mL/hr, Administer over 30 Minutes, Once, On Radha 12/26/23 at 1300, For 1 dose, Do not co-administer other drugs through the same infusion line. Give via 0.2 or 0.22 micron in-line filter. Do not shake. Use low protein binding in-line filter. New Bag 12/26/2023 12:55 PM CDT 80 mg 132 mL /hr sodium chloride 0.9 % injection 10 mL 10 mL, intravenous, As needed, line care, Starting on Radha 12/26/23 at 1233, Prior to blood sampling, post blood transfusion, or post blood sampling. Given 12/26/2023 2:11 PM CDT 20 mL Given 12/26/2023 1:21 PM CDT 20 mL documented in this encounter Additional Health Concerns Infection Onset Date Last Indicated Resolved Time Protective Environment 06/04/2023 06/04/2023 documented as of this encounter Care Teams Dope Dry House Operator Relationship Specialty Start Date End Date Elsewhere, Pcp PCP - General Family Medicine 06/17/23 documented as of this encounter
--- OUTSIDE RECORDS SUMMARY | 2024-02-21 15:07 | XMS_ITS | Encounter Summary ---
Author Organization [facility] Address [address] [place] [address] Care Team Providers Care Juice Packaging Machines Setter Name Role Phone Elsewhere, Pcp Primary Care Provider Unavailabl e Reason for Visit * Reason Onset Date Comments Labs Only 12/19/2023 Encounter Details Date Type Department Care Team (Late st Contact Info) Description 12/19/2023 Clinical Communication Department of Oncology in [place], [place] [address] [place] [phone] Anahy Amezcua, R.N., O.C.N. [address] [place] [phone] Labs Only Social History Tobacco Use Types Packs/Day Years Used Date Smoking Tobacco: Never Passive Smoke Exposure: Never Smokeless Tobacco: Never Alcohol Use Standard Drinks/Week Comments Not Currently 0 (1 standard drink = 0.6 oz pur e alcohol) Occasional [facility] Utilities Answer Date Recorded In the past 12 months has [employer], gas, oil, or water company threatened [...] Sex Assigned at Female 05/31/2023 8:26 AM CLERICAL ASSISTANT Gender Identity Female 05/31/2023 8:26 AM CLERICAL ASSISTANT Sexual Orientation Straight 05/31/2023 8: 26 AM CLERICAL ASSISTANT documented as of this encounter Plan of Treatment Upcoming Encounters Date Type Department Care Team (Late st Contact Info) Description 02/25/2024 10:00 AM CDT Clinical Communication Virtual Review in [place], [place] [address] [place] [phone] 02/27/2024 7:30 AM CDT Appointment Department of Radiology, [facility] in [place], [place] [address] [place] [phone] Zhane Granados APRN, C.N.P. [address] [place] [phone] 02/27/2024 8:45 AM CDT Clinical Support Department of Palliative Care in [place], [place] [address] [place] [phone] Bereket Johnson APRN, C.N.P., D.N.P. [address] [place] [phone] 02/27/2024 9:45 AM CDT Clinical Support Department of Palliative Care in [place], [place] [address] [place] [phone] Marija Olivas APRN, C.N.P., M.S.N. [address] [place] [phone] 02/27/2024 11:00 AM CDT Lab Department of Laboratory Medicine and Pathology, [facility] in [place], [place] [address] [place] [phone] Zhane Granados APRN, C.N.P. [address] [place] [phone] 02/27/2024 1:00 PM CDT Office Visit Department of Oncology in [place], [place] [address] [place] [phone] Pérez Zuniga M.D., Ph.D. [address] [place] [phone] 02/27/2024 1:45 PM CDT Infusion Department of Oncology in [place], [place] [address] [place] [phone] Zhane Granados APRN, C.N.P. [address] [place] [phone] 03/17/2024 7:00 AM CDT Clinical Communication Virtual Review in [place], [place] 200 [place] [address] 03/19/2024 10:45 AM CDT Clinical Support Department of Palliative Care in [place], [place] [address] [place] [phone] Marija Olivas APRN, C.N.P., M.S.N. [address] [place] [phone] 03/19/2024 11:30 AM CDT Office Visit Department of Palliative Care in [place], [place] [address] [place] [phone] Valentine Kelsey M.D., M.S. [address] [place] [phone] 03/19/2024 11:40 AM CDT Lab Department of Laboratory Medicine and Pathology, [facility] in [place], [place] [address] [place] [phone] Zhane Granados APRN, C.N.P. [address] [place] [phone] 03/19/2024 1:40 PM CDT Office Visit Department of Oncology in [address] [phone] Pérez Zuniga M.D., Ph.D. [address] [place] [phone] 03/19/2024 2:45 PM CDT Infusion Department of Oncology in [place], [place] [address] [place] [phone] Zhane Granados APRN, C.N.P. [address] [place] [phone] 03/24/2024 3:00 PM CDT Clinical Communication Virtual Review in [place], [place] 200 [place] [address] 03/26/2024 7:45 AM CDT Appointment Department of Radiology, [facility] in [place], [place] [address] [place] [phone] Zhane Granados APRN, C.N.P. [address] [place] [phone] 03/26/2024 3:20 PM CDT Office Visit Department of Oncology in [place], [place] [address] [place] [phone] Pérez Zuniga M.D., Ph.D. [address] [place] [phone] documented as of this encounter Procedures Procedure Name Priority Date/Time Associated Diagnosis Comments HEMATOLOGY/ONCOLOGY - BLOOD, EXTERNAL LAB RESULTS Routine 12/18/2023 8:04 PM CDT documented in this encounter Results * (ABNORMAL) Hematology/Oncology - Blood, External Lab Results (12/18/2023 8:04 PM CDT) EXT AST 65(A) 10 - 35 OTHER (SPECIFY IN DIET ATTENDANT) EXT ALT 73(A) 10 - 35 OTHER (SPECIFY IN DIET ATTENDANT) EXT Alkaline Phosphatase 235(A) 35 - 104 OTHER (SPECIFY IN DIET ATTENDANT) EXT Bilirubin, Total 0.5 0.0 - 1.2 OTHER (SPECIFY IN DIET ATTENDANT) EXT Sodium 140 136 - 145 OTHER (SPECIFY IN DIET ATTENDANT) EXT Potassium 4.3 3.5 - 5.1 OTHER (SPECIFY IN DIET ATTENDANT) EXT Calcium, Total 10.4(A) 8.6 - 10.0 OTHER (SPECIFY IN DIET ATTENDANT) EXT Creatinine 0.64 0.50 - 0.90 OTHER (SPECIFY IN DIET ATTENDANT) EXT Total Protein 7.8 6.0 - 8.0 OTHER (SPECIFY IN DIET ATTENDANT) EXT Albumin 4.0 4.0 - 4.9 OTHER (SPECIFY IN DIET ATTENDANT) EXT Glucose, 180 Min 119(A) 70 - 99 OTHER (SPECIFY IN DIET ATTENDANT) Blood 12/18/2023 8:04 PM CDT Historical Provider LAB BLOOD NON ADD-ON OTHER (SPECIFY IN DIET ATTENDANT) N/A documented in this encounter Visit Diagnoses Not on filedocumented in this encounter Additional Health Concerns Infection Onset Date Last Indicated Resolved Time Protective Environment 06/04/2023 06/04/2023 documented as of this encounter Care Teams Juice Packaging Machines Setter Relationship Specialty Start Date End Date Elsewhere, Pcp PCP - General Family Medicine 06/17/23 documented as of this encounter
--- OUTSIDE RECORDS SUMMARY | 2024-02-21 15:07 | XMS_ITS | Encounter Summary ---
Author Organization [facility] Address [address] [place] [address] Care Team Providers Care Spectroscopist Name Role Phone Elsewhere, Pcp Primary Care Provider Unavailabl e Reason for Visit * Reason Comments Med Refill colchicine Encounter Details Date Type Department Care Team (Late st Contact Info) Description 12/28/2023 Refill Department of Oncology in [place], [place] [address] [place] [phone] Pérez Zuniga M.D., Ph.D. [address] [place] [phone] Med Refill (colchicine) Social History Tobacco Use Types Packs/Day Years Used Date Smoking Tobacco: Never Passive Smoke Exposure: Never Smokeless Tobacco: Never Alcohol Use Standard Drinks/Week Comments Not Currently 0 (1 standard drink = 0.6 oz pur e alcohol) Occasional C Utilities Answer Date Recorded In the past 12 months has [employer], gas, oil, or water company threatened to [...] Sex Assigned at Female 05/31/2023 8:26 AM COMPRESSOR REPAIRER Gender Identity Female 05/31/2023 8:26 AM COMPRESSOR REPAIRER Sexual Orientation Straight 05/31/2023 8: 26 AM COMPRESSOR REPAIRER documented as of this encounter Miscellaneous Notes * Telephone Encounter - Erin Beltran - 12/30/2023 9:47 AM CDT Rx for 120 was sent on 12/18/2023 documented in this encounter Plan of Treatment Upcoming Encounters Date Type Department Care Team (Late st Contact Info) Description 02/25/2024 10:00 AM CDT Clinical Communication Virtual Review in [place], [place] 200 [place] [address] 02/27/2024 7:30 AM CDT Appointment Department of Radiology, [facility], in [place], [place] [address] [place] [address] Zhane Granados APRN, C.N.P. [address] [place] [phone] 02/27/2024 8:45 AM CDT Clinical Support Department of Palliative Care in [place], [place] [address] [place] [phone] Bereket Johnson APRN, C.N.P., D.N.P. [address] [place] [phone] 02/27/2024 9:45 AM CDT Clinical Support Department of Palliative Care in [place], [place] [address] [place] [phone] Marija Olivas APRN, C.N.P., M.S.N. [address] [place] [phone] 02/27/2024 11:00 AM CDT Lab Department of Laboratory Medicine and Pathology, [facility], in [place], [place] [address] [place] [phone] Zhane Granados APRN, C.N.P. [address] [place] [phone] 02/27/2024 1:00 PM CDT Office Visit Department of Oncology in [place], [place] [address] [place] [phone] Pérez Zuniga M.D., Ph.D. [address] [place] [phone] 02/27/2024 1:45 PM CDT Infusion Department of Oncology in [place], [place] [address] [place] [phone] Zhane Granados APRN, C.N.P. [address] [place] [phone] 03/17/2024 7:00 AM CDT Clinical Communication Virtual Review in [place], [place] 200 [place] [address] 03/19/2024 10:45 AM CDT Clinical Support Department of Palliative Care in [place], [place] [address] [place] [phone] Marija Olivas APRN, C.N.P., M.S.N. [address] [place] [phone] 03/19/2024 11:30 AM CDT Office Visit Department of Palliative Care in [place], [place] [address] [place] [phone] Valentine Kelsey M.D., M.S. [address] [place] [phone] 03/19/2024 11:40 AM CDT Lab Department of Laboratory Medicine and Pathology, [facility], in [place], [place] [address] [place] [phone] Zhane Granados APRN, C.N.P. [address] [place] [phone] 03/19/2024 1:40 PM CDT Office Visit Department of Oncology in [address] [phone] Pérez Zuniga M.D., Ph.D. [address] [place] [phone] 03/19/2024 2:45 PM CDT Infusion Department of Oncology in [place], [place] [address] [place] [phone] Zhane Granados APRN, C.N.P. [address] [place] [phone] 03/24/2024 3:00 PM CDT Clinical Communication Virtual Review in [place], [place] 200 [place] [address] 03/26/2024 7:45 AM CDT Appointment Department of Radiology, [facility], in [place], [place] [address] [place] [phone] Zhane Granados APRN, C.N.P. [address] [place] [phone] 03/26/2024 3:20 PM CDT Office Visit Department of Oncology in [place], [place] [address] [place] [phone] Pérez Zuniga M.D., Ph.D. [address] [place] [phone] documented as of this encounter Visit Diagnoses Not on filedocumented in this encounter Additional Health Concerns Infection Onset Date Last Indicated Resolved Time Protective Environment 06/04/2023 06/04/2023 documented as of this encounter Care Teams Spectroscopist Relationship Specialty Start Date End Date Elsewhere, Pcp PCP - General Family Medicine 06/17/23 documented as of this encounter
--- OUTSIDE RECORDS SUMMARY | 2024-02-21 15:07 | XMS_ITS | Encounter Summary ---
Author Organization [facility] Address [address] [place] [address] Care Team Providers Care Toys And Games Hand Finisher Name Role Phone Elsewhere, Pcp Primary Care Provider Unavailabl e Reason for Visit * Reason Comments Med Refill Encounter Details Date Type Department Care Team (Late st Contact Info) Description 12/23/2023 Refill Department of Palliative Care in [place], [place] [address] [place] [phone] Valentine Kelsey M.D., M.S. [address] [place] [phone] Med Refill Social History Tobacco Use Types Packs/Day Years Used Date Smoking Tobacco: Never Passive Smoke Exposure: Never Smokeless Tobacco: Never Alcohol Use Standard Drinks/Week Comments Not Currently 0 (1 standard drink = 0.6 oz pur e alcohol) Occasional C Utilities Answer Date Recorded In the past 12 months has [employer], gas, oil, or water company threatened [...] your living situation today? I have a [facility] place to live 07/10/2023 Sex and Gender Information Value Date Recorded Sex Assigned at Female 05/31/2023 8:26 AM INSOLE DEPARTMENT WORKER Gender Identity Female 05/31/2023 8:26 AM INSOLE DEPARTMENT WORKER Sexual Orientation Straight 05/31/2023 8: 26 AM INSOLE DEPARTMENT WORKER documented as of this encounter Plan of Treatment Upcoming Encounters Date Type Department Care Team (Late st Contact Info) Description 02/25/2024 10:00 AM CDT Clinical Communication Virtual Review in [place], [place] 200 [place] [address] 02/27/2024 7:30 AM CDT Appointment Department of Radiology, [facility], in [place], [place] [address] [place] [phone] Zhane Granados APRN, C.N.P. [address] [place] [phone] 02/27/2024 8:45 AM CDT Clinical Support Department of Palliative Care in [place], [place] [address] [place] [phone] Bereket Johnson APRN, C.N.P., D.N.P. [address] [place] [phone] 02/27/2024 9:45 AM CDT Clinical Support Department of Palliative Care in [place], [place] [address] [place] [phone] Marija Olivas APRN, C.N.P., M.S.N. [address] [place] [phone] 02/27/2024 11:00 AM CDT Lab Department of Laboratory Medicine and Pathology, [facility] in [place], [place] [address] [place] [phone] Zhane Granados APRN, C.N.P. [address] [place] [phone] 02/27/2024 1:00 PM CDT Office Visit Department of Oncology in [place], [place] [address] [place] [phone] Pérez Zuniga M.D., Ph.D. [address] [place] [phone] 02/27/2024 1:45 PM CDT Infusion Department of Oncology in [place], [place] [address] [place] [phone] Zhane Granados APRN, C.N.P. [address] [place] [phone] 03/17/2024 7:00 AM CDT Clinical Communication Virtual Review in [place], [place] 200 [place] [address] 03/19/2024 10:45 AM CDT Clinical Support Department of Palliative Care in [place], [place] [address] [place] [phone] Marija Olivas APRN, C.N.P., M.S.N. [address] [place] [phone] 03/19/2024 11:30 AM CDT Office Visit Department of Palliative Care in [place], [place] [address] [place] [phone] Valentine Kelsey M.D., M.S. [address] [place] [phone] 03/19/2024 11:40 AM CDT Lab Department of Laboratory Medicine and Pathology, [facility] in [address] [phone] Zhane Granados APRN, C.N.P. [address] [place] [phone] 03/19/2024 1:40 PM CDT Office Visit Department of Oncology in [address] [phone] Pérez Zuniga M.D., Ph.D. [address] [place] [phone] 03/19/2024 2:45 PM CDT Infusion Department of Oncology in [address] [phone] Zhane Granados APRN, C.N.P. [address] [place] [phone] 03/24/2024 3:00 PM CDT Clinical Communication Virtual Review in [address] [phone] 03/26/2024 7:45 AM CDT Appointment Department of Radiology, [facility], in [place], [place] [address] [place] [address] Zhane Granados APRN, C.N.P. [address] [place] [phone] 03/26/2024 3:20 PM CDT Office Visit Department of Oncology in [place], [place] [address] [place] [phone] Pérez Zuniga M.D., Ph.D. [address] [place] [phone] documented as of this encounter Visit Diagnoses Not on filedocumented in this encounter Additional Health Concerns Infection Onset Date Last Indicated Resolved Time Protective Environment 06/04/2023 06/04/2023 documented as of this encounter Care Teams Toys And Games Hand Finisher Relationship Specialty Start Date End Date Elsewhere, Pcp PCP - General Family Medicine 06/17/23 documented as of this encounter
--- OUTSIDE RECORDS SUMMARY | 2024-02-21 15:08 | XMS_ITS | Encounter Summary ---
Author Organization [facility] Address [address] [place] [address] Care Team Providers Care Dbas Name Role Phone Elsewhere, Pcp Primary Care Provider Unavailabl e Encounter Details Date Type Department Care Team (Late st Contact Info) Description 12/03/2023 Clinical Communication Department of Palliative Care in [place], [place] [address] [place] [phone] Valentine Kelsey M.D., M.S. [address] [place] [phone] Social History Tobacco Use Types Packs/Day Years Used Date Smoking Tobacco: Never Passive Smoke Exposure: Never Smokeless Tobacco: Never Alcohol Use Standard Drinks/Week Comments Not Currently 0 (1 standard drink = 0.6 oz pur e alcohol) Occasional [facility] Utilities Answer Date Recorded In the [...] your living situation today? I have a [facility] place to live 07/10/2023 Sex and Gender Information Value Date Recorded Sex Assigned at Female 05/31/2023 8:26 AM HEALTH SCIENCE INSTRUCTOR Gender Identity Female 05/31/2023 8:26 AM HEALTH SCIENCE INSTRUCTOR Sexual Orientation Straight 05/31/2023 8: 26 AM HEALTH SCIENCE INSTRUCTOR documented as of this encounter Plan of Treatment Upcoming Encounters Date Type Department Care Team (Late st Contact Info) Description 02/25/2024 10:00 AM CDT Clinical Communication Virtual Review in [place], [place] 200 [place] [address] 02/27/2024 7:30 AM CDT Appointment Department of Radiology, [facility] in [place], [place] [address] [place] [phone] Zhane Granados, GAIL, C.N.P. [address] [place] [phone] 02/27/2024 8:45 AM CDT Clinical Support Department of Palliative Care in [place], [place] [address] [place] [phone] Bereket Johnson APRN C.N.P., D.N.P. [address] [place] [phone] 02/27/2024 9:45 AM CDT Clinical Support Department of Palliative Care in [place], [place] [address] [place] [phone] Marija Olivas APRN, C.N.P., M.S.N. [address] [place] [phone] 02/27/2024 11:00 AM CDT Lab Department of Laboratory Medicine and Pathology, [facility] in [address] [phone] Zhane Granados APRN, C.N.P. [address] [place] [phone] 02/27/2024 1:00 PM CDT Office Visit Department of Oncology in [place], [place] [address] [place] [phone] Pérez Zuniga M.D., Ph.D. [address] [place] [phone] 02/27/2024 1:45 PM CDT Infusion Department of Oncology in [place], [place] [address] [place] [phone] Zhane Granados APRN, C.N.P. [address] [place] [phone] 03/17/2024 7:00 AM CDT Clinical Communication Virtual Review in [place], [place] 200 [place] [address] 03/19/2024 10:45 AM CDT Clinical Support Department of Palliative Care in [address] [phone] Marija Olivas APRN, C.N.P., M.S.N. [address] [place] [phone] 03/19/2024 11:30 AM CDT Office Visit Department of Palliative Care in [place], [place] [address] [place] [phone] Valentine Kelsey M.D., M.S. [address] [place] [phone] 03/19/2024 11:40 AM CDT Lab Department of Laboratory Medicine and Pathology, [facility] in [place], [place] [address] [place] [phone] Zhane Granados APRN, C.N.P. [address] [place] [phone] 03/19/2024 1:40 PM CDT Office Visit Department of Oncology in [place], [place] [address] [place] [phone] Pérez Zuniga M.D., Ph.D. [address] [place] [phone] 03/19/2024 2:45 PM CDT Infusion Department of Oncology in [place], [place] [address] [place] [phone] Zhane Granados APRN, C.N.P. [address] [place] [phone] 03/24/2024 3:00 PM CDT Clinical Communication Virtual Review in [place], [place] 200 [place] [phone] 03/26/2024 7:45 AM CDT Appointment Department of Radiology, [facility] in [place], [place] [address] [place] [address] [place] [phone] Zhane Granados APRN, C.N.P. [address] [place] [phone] 03/26/2024 3:20 PM CDT Office Visit Department of Oncology in [place], [place] [address] [place] [phone] Pérez Zuniga M.D., Ph.D. [address] [place] [phone] documented as of this encounter Visit Diagnoses Not on filedocumented in this encounter Additional Health Concerns Infection Onset Date Last Indicated Resolved Time Protective Environment 06/04/2023 06/04/2023 documented as of this encounter Care Teams Dbas Relationship Specialty Start Date End Date Elsewhere, Pcp PCP - General Family Medicine 06/17/23 documented as of this encounter
--- OUTSIDE RECORDS SUMMARY | 2024-02-21 15:08 | XMS_ITS | Encounter Summary ---
Author Organization [facility] Address [address] [place] [address] Care Team Providers Care Fishing Captain Name Role Phone Elsewhere, Pcp Primary Care Provider Unavailabl e Encounter Details Date Type Department Care Team (Latest Contact Info) Description 12/12/2023 9:58 AM CDT - 12/12/2023 11:59 PM CDT Hospital Encounter Department of Radiation Oncology in [place], [place] [address] [place] [phone] Tara López M.D. [address] [place] [address] Discharge Disposition: Home or Self Care Social History Tobacco Use Types Packs/Day Years Used Date Smoking Tobacco: Never Passive Smoke Exposure: Never Smokeless Tobacco: Never Alcohol Use Standard Drinks/Week Comments Not Currently 0 (1 standard drink = 0.6 oz pur e alcohol) Occasional [facility] Utilities Answer Date Recorded In the past 12 months has [employer], [employer], oil, or water [employer] threatened to shut off services in your [...] living situation today? I have a [facility] place to live 07/10/2023 Sex and Gender Information Value Date Recorded Sex Assigned at Female 05/31/2023 8:26 AM KNOWLEDGE MANAGEMENT CONSULTANT Gender Identity Female 05/31/2023 8:26 AM KNOWLEDGE MANAGEMENT CONSULTANT Sexual Orientation Straight 05/31/2023 8: 26 AM KNOWLEDGE MANAGEMENT CONSULTANT documented as of this encounter Medications at Time of Discharge Medication Sig Dispensed Refills Start Date End Date hydrOXYzine (ATARAX) 25 mg tablet Take 25-50 mg by mouth at bedtime as needed. 05/31/2023 naloxone (NARCAN) 4 mg/actuation nasal spray Administer [...] mg total) by mouth daily. 60 tablet 11/29/2023 12/17/2023 dabrafenib (TAFINLAR) 75 mg capsule Take 2 capsules (150 mg total) by mouth 2 (two) times a day. 120 capsule 2 11/05/2023 01/01/2024 dexAMETHasone (DECADRON) 1 mg tablet Take 1 tablet (1 mg total) by mouth every 12 (twelve) hours. 60 tablet 3 11/04/2023 12/17/2023 ondansetron (ZOFRAN) 8 mg tablet Take 1 tablet (8 mg total) by mouth every 8 (eight) hours as needed for nausea or vomiting. 30 tablet 5 08/19/2023 12/23/2023 trametinib dimethyl sulfoxide (MEKINIST) 2 mg tablet Take 1 tablet (2 mg total) by mouth daily. Take at least 1 hour before or 2 hours after a meal. Keep refrigerated in original bottle. 30 tablet 2 11/05/2023 01/01/2024 documented as of this encounter Plan of Treatment Upcoming Encounters Date Type Department Care Team (Late st Contact Info) Description 02/25/2024 10:00 AM CDT Clinical Communication Virtual Review in [place], [place] 200 [place] [address] 02/27/2024 7:30 AM CDT Appointment Department of Radiology, [facility] in [address] [phone] Zhane Granados APRN, C.N.P. [address] [place] [phone] 02/27/2024 8:45 AM CDT Clinical Support Department of Palliative Care in [address] [phone] Bereket Johnson APRN, C.N.P., D.N.P. [address] [place] [phone] 02/27/2024 9:45 AM CDT Clinical Support Department of Palliative Care in [place], [place] [address] [place] [phone] Marija Olivas APRN, C.N.Dina., M.S.N. [address] [place] [phone] 02/27/2024 11:00 AM CDT Lab Department of Laboratory Medicine and Pathology, [facility], in [place], [place] [address] [place] [phone] Zhane Granados APRN, C.N.P. [address] [place] [phone] 02/27/2024 1:00 PM CDT Office Visit Department of Oncology in [address] [phone] Pérez Zuniga M.D., Ph.D. [address] [place] [phone] 02/27/2024 1:45 PM CDT Infusion Department of Oncology in [address] [phone] Zhane Granados APRN, C.N.P. [address] [place] [phone] 03/17/2024 7:00 AM CDT Clinical Communication Virtual Review in [place], [place] 200 [place] [address] 03/19/2024 10:45 AM CDT Clinical Support Department of Palliative Care in [place], [place] [address] [place] [phone] Marija Olivas APRN, C.N.P., M.S.N. [address] [place] [phone] 03/19/2024 11:30 AM CDT Office Visit Department of Palliative Care in [place], [place] [address] [place] [phone] Valentine Kelsey M.D., M.S. [address] [place] [phone] 03/19/2024 11:40 AM CDT Lab Department of Laboratory Medicine and Pathology, [facility] in [place], [place] [address] [place] [phone] Zhane Granados APRN, C.N.P. [address] [place] [phone] 03/19/2024 1:40 PM CDT Office Visit Department of Oncology in [place], [place] [address] [place] [phone] Pérez Zuniga M.D., Ph.D. [address] [place] [phone] 03/19/2024 2:45 PM CDT Infusion Department of Oncology in [address] [phone] Zhane Granados APRN, C.N.P. [address] [place] [phone] 03/24/2024 3:00 PM CDT Clinical Communication Virtual Review in [place], [place] 200 [place] [address] 03/26/2024 7:45 AM CDT Appointment Department of Radiology, [facility] in [place], [place] [address] [place] [phone] Zhane Granados APRN, C.N.P. [address] [place] [phone] 03/26/2024 3:20 PM CDT Office Visit Department of Oncology in [place], [place] [address] [place] [phone] Pérez Zuniga M.D., Ph.D. [address] [place] [phone] documented as of this encounter Visit Diagnoses Not on filedocumented in this encounter Additional Health Concerns Infection Onset Date Last Indicated Resolved Time Protective Environment 06/04/2023 06/04/2023 documented as of this encounter Care Teams Fishing Captain Relationship Specialty Start Date End Date Elsewhere, Pcp PCP - General Family Medicine 06/17/23 documented as of this encounter
--- OUTSIDE RECORDS SUMMARY | 2024-02-21 15:08 | XMS_ITS | Encounter Summary ---
Author Organization [facility] Address [address] [place] [address] Care Team Providers Care Clay Caster Name Role Phone Elsewhere, Pcp Primary Care Provider Unavailabl e Reason for Visit * Radiation Therapy (Routine) - Closed Specialty Diagnoses / Procedures Referred By Contac t Referred To Contact Diagnoses Secondary Malignant Neoplasm Brain (HCC) Procedures Prior Auth Rad Tx [place] STEREOTACTIC BODY RADTN DEL SBRT Tara López M.D. 200 [place] [address] T [facility] [place] [address] [place] [phone] Referral ID Status Reason Start Date Expiration Date Visits Re quested Visits Authorized [id number] Closed 10/04/2023 09/29/2024 3 5 Encounter Details Date Type Department Care Team (Latest Contact Info) Description 12/05/2023 1:00 PM CDT - 12/05/2023 11:59 PM CDT Hospital Encounter Department of Radiation Oncology in [address] [phone] Tara López M.D. [address] [place] [phone] Discharge Disposition: Home or Self Care Social History Tobacco Use Types Packs/Day Years Used Date Smoking Tobacco: Never Passive Smoke Exposure: Never Smokeless Tobacco: Never Alcohol Use Standard Drinks/Week Comments Not Currently 0 (1 standard drink = 0.6 oz pur e alcohol) Occasional [facility] Utilities Answer Date Recorded In the [...] Sex Assigned at Female 05/31/2023 8:26 AM MASK FORMER Gender Identity Female 05/31/2023 8:26 AM MASK FORMER Sexual Orientation Straight 05/31/2023 8: 26 AM MASK FORMER documented as of this encounter Medications at [...] Upcoming Encounters Date Type Department Care Team (Susana st Contact Info) Description 02/25/2024 10:00 AM CDT Clinical Communication Virtual Review in [place], [place] [address] [place] [address] 02/27/2024 7:30 AM CDT Appointment Department of Radiology, [facility], in [place], [place] [address] [place] [address] Zhane Granados APRN, C.N.P. [address] [place] [phone] 02/27/2024 8:45 AM CDT Clinical Support Department of Palliative Care in [place], [place] [address] [place] [phone] Bereket Johnson APRN, C.N.P., D.N.P. [address] [place] [phone] 02/27/2024 9:45 AM CDT Clinical Support Department of Palliative Care in [place], [place] [address] [place] [phone] Marija Olivas APRN, C.N.P., M.S.N. [address] [place] [phone] 02/27/2024 11:00 AM CDT Lab Department of Laboratory Medicine and Pathology, [facility] in [place], [place] [address] [place] [phone] Zhane Granados APRN, C.N.P. [address] [place] [phone] 02/27/2024 1:00 PM CDT Office Visit Department of Oncology in [place], [place] [address] [place] [phone] Pérez Zuniga M.D., Ph.D. [address] [place] [phone] 02/27/2024 1:45 PM CDT Infusion Department of Oncology in [place], [place] [address] [place] [phone] Zhane Granados APRN, C.N.P. [address] [place] [phone] 03/17/2024 7:00 AM CDT Clinical Communication Virtual Review in [place], [place] 200 [place] [address] 03/19/2024 10:45 AM CDT Clinical Support Department of Palliative Care in [address] [phone] Marija Olivas APRN, Harsha.N.P., M.S.N. [address] [place] [phone] 03/19/2024 11:30 AM CDT Office Visit Department of Palliative Care in [address] [phone] Valentine Kelsey M.D., M.S. [address] [place] [phone] 03/19/2024 11:40 AM CDT Lab Department of Laboratory Medicine and Pathology, [facility] in [address] [phone] Zhane Granados APRN, C.N.P. [address] [place] [phone] 03/19/2024 1:40 PM CDT Office Visit Department of Oncology in [address] [phone] Pérez Zuniga M.D., Ph.D. [address] [place] [phone] 03/19/2024 2:45 PM CDT Infusion Department of Oncology in [place], [place] [address] [place] [phone] Zhane Granados APRN, C.N.P. [address] [place] [phone] 03/24/2024 3:00 PM CDT Clinical Communication Virtual Review in [place], [place] [address] [place] [address] 03/26/2024 7:45 AM CDT Appointment Department of Radiology, [facility], in [place], [place] [address] [place] [phone] Zhane Granados APRN, C.N.P. [address] [place] [phone] 03/26/2024 3:20 PM CDT Office Visit Department of Oncology in [place], [place] [address] [place] [phone] Pérez Zuniga M.D., Ph.D. [address] [place] [phone] documented as of this encounter Visit Diagnoses Not on filedocumented in this encounter Additional Health Concerns Infection Onset Date Last Indicated Resolved Time Protective Environment 06/04/2023 06/04/2023 documented as of this encounter Care Teams Clay Caster Relationship Specialty Start Date End Date Elsewhere, Pcp PCP - General Family Medicine 06/17/23 documented as of this encounter
--- OUTSIDE RECORDS SUMMARY | 2024-02-21 15:08 | XMS_ITS | Encounter Summary ---
Author Organization [facility] Address [address] [place] [address] Care Team Providers Care Cemetery Vault Installer Name Role Phone Elsewhere, Pcp Primary Care Provider Unavailabl e Reason for Visit * Radiation Therapy (Routine) - Closed Specialty Diagnoses / Procedures Referred By Contac t Referred To Contact Diagnoses Secondary Malignant Neoplasm Brain (HCC) Procedures Prior Auth Rad Tx [place] STEREOTACTIC BODY RADTN DEL SBRT Tara López M.D. 200 [place] [address] T [facility] [place] [address] [place] [phone] Referral ID Status Reason Start Date Expiration Date Visits Re quested Visits Authorized [id number] Closed 10/04/2023 09/29/2024 3 5 Encounter Details Date Type Department Care Team (Latest Contact Info) Description 12/06/2023 12:40 PM CDT - 12/06/2023 11:59 PM CDT Hospital Encounter Department of Radiation Oncology in [address] [phone] Tara López M.D. [address] [place] [phone] Discharge Disposition: Home or Self Care Social [...] your living situation today? I have a [facility] place to live 07/10/2023 Sex and Gender Information Value Date Recorded Sex Assigned at Female 05/31/2023 8:26 AM HEALTH EDITOR Gender Identity Female 05/31/2023 8:26 AM HEALTH EDITOR Sexual Orientation Straight 05/31/2023 8: 26 AM HEALTH EDITOR documented as of this encounter Medications at [...] AM CDT Clinical Communication Virtual Review in [place], [place] [address] [place] [address] 02/27/2024 7:30 AM CDT Appointment Department of Radiology, [facility], in [place], [place] [address] [place] [address] Zhane Granados APRN, C.N.P. [address] [place] [phone] 02/27/2024 8:45 AM CDT Clinical Support Department of Palliative Care in [place], [place] [address] [place] [phone] Beerket Johnson APRN, C.N.P., D.N.P. [address] [place] [phone] 02/27/2024 9:45 AM CDT Clinical Support Department of Palliative Care in [place], [place] [address] [place] [phone] Marija Olivas APRN, C.N.P., M.S.N. [address] [place] [phone] 02/27/2024 11:00 AM CDT Lab Department of Laboratory Medicine and Pathology, [facility] in [place], [place] [address] [place] [phone] Zhane Granados APRN, C.N.P. [address] [place] [phone] 02/27/2024 1:00 PM CDT Office Visit Department of Oncology in [place], [place] [address] [place] [phone] Pérez Zuniga M.D., Ph.D. [address] [place] [phone] 02/27/2024 1:45 PM CDT Infusion Department of Oncology in [place], [place] [address] [place] [phone] Zhane Granados APRN, C.N.P. [address] [place] [phone] 03/17/2024 7:00 AM CDT Clinical Communication Virtual Review in [place], [place] 200 [place] [address] 03/19/2024 10:45 AM CDT Clinical Support Department of Palliative Care in [address] [phone] Marija Olivas APRN, Harsha.N.P., M.S.N. [address] [place] [phone] 03/19/2024 11:30 AM CDT Office Visit Department of Palliative Care in [address] [phone] Valentine Kelsey M.D., M.S. [address] [place] [phone] 03/19/2024 11:40 AM CDT Lab Department of Laboratory Medicine and Pathology, [facility] in [address] [phone] Zhane Granados APRN, C.N.P. [address] [place] [phone] 03/19/2024 1:40 PM CDT Office Visit Department of Oncology in [address] [phone] Pérez Zuniga M.D., Ph.D. [address] [place] [phone] 03/19/2024 2:45 PM CDT Infusion Department of Oncology in [place], [place] [address] [place] [phone] Zhane Granados APRN, C.N.P. [address] [place] [phone] 03/24/2024 3:00 PM CDT Clinical Communication Virtual Review in [place], [place] [address] [place] [address] 03/26/2024 7:45 AM CDT Appointment Department of Radiology, [facility], in [place], [place] [address] [place] [phone] Zhane Granados APRN, C.N.P. [address] [place] [phone] 03/26/2024 3:20 PM CDT Office Visit Department of Oncology in [place], [place] [address] [place] [phone] Pérez Zuniga M.D., Ph.D. [address] [place] [phone] documented as of this encounter Visit Diagnoses Not on filedocumented in this encounter Additional Health Concerns Infection Onset Date Last Indicated Resolved Time Protective Environment 06/04/2023 06/04/2023 documented as of this encounter Care Teams Cemetery Vault Installer Relationship Specialty Start Date End Date Elsewhere, Pcp PCP - General Family Medicine 06/17/23 documented as of this encounter
--- OUTSIDE RECORDS SUMMARY | 2024-02-21 15:08 | XMS_ITS | Encounter Summary ---
Author Organization [facility] Address [address] [place] [address] Care Team Providers Care Radiation Therapy Technician Name Role Phone Elsewhere, Pcp Primary Care Provider Unavailabl e Encounter Details Date Type Department Care Team (Late st Contact Info) Description 12/06/2023 Clinical Communication Department of Oncology in [place], [place] [address] [place] [phone] Pérez Zuniga M.D., Ph.D. [address] [place] [phone] Social History Tobacco Use Types Packs/Day Years [...] your living situation today? [facility] to live 07/10/2023 Sex and Gender Information Value Date Recorded Sex Assigned at Female 05/31/2023 8:26 AM CHEMICAL LABORATORY ASSISTANT Gender Identity Female 05/31/2023 8:26 AM CHEMICAL LABORATORY ASSISTANT Sexual Orientation Straight 05/31/2023 8: 26 AM CHEMICAL LABORATORY ASSISTANT documented as of this encounter Miscellaneous Notes * Telephone Encounter - Pérez Zuniga M.D., Ph.D. - 12/06/2023 2:10 PM CDT I spoke to the patient. While taking DXM at 1 mg BID and off DT, she is still having fevers of around 100. This is more likely the immunotherapy at this point (off DT for 4 days). We will get her on DXM at 2 mg BID and restart dabrafenib at 75 BID tomorrow. She will recheck labs on SAT of next week. And, she will call us on Saturday of next week with an update on how she is doing. Mrs. Cota was very appreciative of the call. documented in this encounter Plan of Treatment Upcoming Encounters Date Type Department Care Team (Late st Contact Info) Description 02/25/2024 10:00 AM CDT Clinical Communication Virtual Review in [place], [place] 200 [place] [address] 02/27/2024 7:30 AM CDT Appointment Department of Radiology, [facility] in [place], [place] [address] [place] [phone] Zhane Granados APRN, C.N.P. [address] [place] [phone] 02/27/2024 8:45 AM CDT Clinical Support Department of Palliative Care in [address] [phone] Bereket Johnson APRN, C.N.P., D.N.P. [address] [place] [phone] 02/27/2024 9:45 AM CDT Clinical Support Department of Palliative Care in [address] [phone] Marija Olivas APRN, C.N.P., M.S.N. [address] [place] [phone] 02/27/2024 11:00 AM CDT Lab Department of Laboratory Medicine and Pathology, [facility] in [place], [place] [address] [place] [phone] Zhane Granados APRN, C.N.P. [address] [place] [phone] 02/27/2024 1:00 PM CDT Office Visit Department of Oncology in [address] [phone] Pérez Zuniga M.D., Ph.D. [address] [place] [phone] 02/27/2024 1:45 PM CDT Infusion Department of Oncology in [place], [place] [address] [place] [phone] Zhane Granados APRN, C.N.P. [address] [place] [phone] 03/17/2024 7:00 AM CDT Clinical Communication Virtual Review in [place], [place] 200 [place] [address] 03/19/2024 10:45 AM CDT Clinical Support Department of Palliative Care in [place], [place] [address] [place] [phone] Marija Olivas APRN, C.N.P., M.S.N. [address] [place] [phone] 03/19/2024 11:30 AM CDT Office Visit Department of Palliative Care in [place], [place] [address] [place] [phone] Valentine Kelsey M.D., M.S. [address] [place] [phone] 03/19/2024 11:40 AM CDT Lab Department of Laboratory Medicine and Pathology, [facility], in [place], [place] [address] [place] [phone] Zhane Granados APRN, C.N.P. [address] [place] [phone] 03/19/2024 1:40 PM CDT Office Visit Department of Oncology in [place], [place] [address] [place] [phone] Pérez Zuniga M.D., Ph.D. [address] [place] [phone] 03/19/2024 2:45 PM CDT Infusion Department of Oncology in [place], [place] [address] [place] [phone] Zhane Granados APRN, C.N.P. [address] [place] [phone] 03/24/2024 3:00 PM CDT Clinical Communication Virtual Review in [place], [place] 200 [place] [address] 03/26/2024 7:45 AM CDT Appointment Department of Radiology, [facility], in [place], [place] [address] [place] [phone] Zhane Granados APRN, C.N.P. [address] [place] [phone] 03/26/2024 3:20 PM CDT Office Visit Department of Oncology in [place], [place] [address] [place] [phone] Pérez Zuniga M.D., Ph.D. [address] [place] [phone] documented as of this encounter Visit Diagnoses Not on filedocumented in this encounter Additional Health Concerns Infection Onset Date Last Indicated Resolved Time Protective Environment 06/04/2023 06/04/2023 documented as of this encounter Care Teams Radiation Therapy Technician Relationship Specialty Start Date End Date Elsewhere, Pcp PCP - General Family Medicine 06/17/23 documented as of this encounter
--- OUTSIDE RECORDS SUMMARY | 2024-02-21 15:08 | XMS_ITS | Encounter Summary ---
Author Organization [facility] Address [address] [place] [address] Care Team Providers Care Device Sales Consultant Name Role Phone Elsewhere, Pcp Primary Care Provider Unavailabl e Encounter Details Date Type Department Care Team (Late st Contact Info) Description 12/11/2023 Documentation Department of Radiation Oncology in [place], [place] [address] [place] [phone] Tara López M.D. [address] [place] [phone] Social History Tobacco Use Types Packs/Day Years Used Date Smoking Tobacco: Never Passive Smoke Exposure: Never Smokeless Tobacco: Never Alcohol Use Standard Drinks/Week Comments Not Currently 0 (1 standard drink = 0.6 oz pur e alcohol) Occasional C Utilities Answer Date Recorded In the past 12 months has [employer] electric, gas, oil, or water company threatened [...] Sex Assigned at Female 05/31/2023 8:26 AM MMD UNIT TEACHER Gender Identity Female 05/31/2023 8:26 AM MMD UNIT TEACHER Sexual Orientation Straight 05/31/2023 8: 26 AM MMD UNIT TEACHER documented as of this encounter Miscellaneous Notes * Radiation Completion Notes - Bella Patel R.N. - 12/11/2023 11:59 PM CDT DIAGNOSIS: 1. Melanoma Trunk (HCC) 2. Secondary Malignant Neoplasm Bone (HCC) Attending Physician: Tara López M.D. Treatment Intent: Palliative Concomitant Therapy: None Single Plan Treatment Course: 2xMultiSiteSBRT Plan ID Fractions Dose / Fraction (cGy) Dose Treated (cGy) Dose Planned (cGy) First Treatment Last Treatment Elapsed Days [id number] 3 / 3 1200 3600 3600 12/04/2023 12/11/2023 7 [id number] 3 / 3 1200 3600 3600 12/04/2023 12/11/2023 7 [id number] 3 / 3 1200 3600 3600 12/05/2023 12/12/2023 7 [id number] 1200 3600 3600 12/05/2023 12/12/2023 7 Course Summary 12/04/2023 12/12/2023 8 Radiation Modality: Photons CLINICAL SUMMARY Tony Cota completed radiation treatment as planned without interruptions. The course of treatment was tolerated well. The patient experienced toxicities of grade 1 pain during radiation treatment. TREATMENT RESPONSE: Response to treatment will be determined by post-treatment imaging and/or laboratory work. RECOMMENDED FOLLOW UP: Primary Medical Oncologist. Follow-up will be with Ms. Granados on December 26, 2023. Signed by: Bella Patel R.N., 12/30/2023 3:35 PM CDT [facility] [address] [place] [address] documented in this encounter Plan of Treatment Upcoming Encounters Date Type Department Care Team (Late st Contact Info) Description 02/25/2024 10:00 AM CDT Clinical Communication Virtual Review in [place], [place] 200 [place] [phone] 02/27/2024 7:30 AM CDT Appointment Department of Radiology, [facility] in [place], [place] [address] [place] [phone] Zhane Granados APRN, C.N.P. [address] [place] [phone] 02/27/2024 8:45 AM CDT Clinical Support Department of Palliative Care in [place], [place] [address] [place] [phone] Bereket Johnson APRN, C.N.P., D.N.P. [address] [place] [phone] 02/27/2024 9:45 AM CDT Clinical Support Department of Palliative Care in [address] [phone] Marija Olivas APRN, C.N.Dina., M.S.N. [address] [place] [phone] 02/27/2024 11:00 AM CDT Lab Department of Laboratory Medicine and Pathology, [facility], in [place], [place] [address] [place] [phone] Zhane Granados APRN, C.N.P. [address] [place] [phone] 02/27/2024 1:00 PM CDT Office Visit Department of Oncology in [address] [phone] Pérez Zuniga M.D., Ph.D. [address] [place] [phone] 02/27/2024 1:45 PM CDT Infusion Department of Oncology in [address] [phone] Zhane Granados APRN, C.N.P. [address] [place] [phone] 03/17/2024 7:00 AM CDT Clinical Communication Virtual Review in [address] [phone] 03/19/2024 10:45 AM CDT Clinical Support Department of Palliative Care in [address] [phone] Marija Olivas APRN, C.N.P., M.S.N. [address] [place] [phone] 03/19/2024 11:30 AM CDT Office Visit Department of Palliative Care in [place], [place] [address] [place] [phone] Valentine Kelsey M.D., M.S. [address] [place] [phone] 03/19/2024 11:40 AM CDT Lab Department of Laboratory Medicine and Pathology, [facility] in [place], [place] [address] [place] [phone] Zhane Granados APRN, C.N.P. [address] [place] [phone] 03/19/2024 1:40 PM CDT Office Visit Department of Oncology in [address] [phone] Pérez Zuniga M.D., Ph.D. [address] [place] [phone] 03/19/2024 2:45 PM CDT Infusion Department of Oncology in [address] [phone] Zhane Granados APRN, C.N.P. [address] [place] [phone] 03/24/2024 3:00 PM CDT Clinical Communication Virtual Review in [place], [place] 200 [place] [address] 03/26/2024 7:45 AM CDT Appointment Department of Radiology, [facility], in [address] [phone] Zhane Granados APRN, C.N.P. [address] [place] [phone] 03/26/2024 3:20 PM CDT Office Visit Department of Oncology in [place], [place] [address] [place] [address] Pérez Zuniga M.D., Ph.D. [address] [place] [phone] documented as of this encounter Visit Diagnoses Diagnosis Melanoma Trunk (HCC)- Primary Secondary Malignant Neoplasm Bone (HCC) documented in this encounter Additional Health Concerns Infection Onset Date Last Indicated Resolved Time Protective Environment 06/04/2023 06/04/2023 documented as of this encounter Care Teams Device Sales Consultant Relationship Specialty Start Date End Date Elsewhere, Pcp PCP - General Family Medicine 06/17/23 documented as of this encounter
--- OUTSIDE RECORDS SUMMARY | 2024-02-21 15:08 | XMS_ITS | Encounter Summary ---
Author Organization [facility] Address [address] [place] [address] Care Team Providers Care Raw Products Director Name Role Phone Elsewhere, Pcp Primary Care Provider Unavailabl e Reason for Visit * Reason Onset Date Comments Rx refill - Colchicine 12/17/2023 Rx refill - Dexamethasone 12/17/2023 Encounter Details Date Type Department Care Team (Latest Contact Info) Description 12/17/2023 Clinical Communication Department of Oncology in [place], [place] [address] [place] [phone] Anahy Amezcua RHaider., O.C.N. [address] [place] [phone] Rx refill - Colchicine; Rx refill - Dexamethasone Social History Tobacco Use Types Packs/Day Years [...] your living situation today? I have a [facility] place to live 07/10/2023 Sex and Gender Information Value Date Recorded Sex Assigned at Female 05/31/2023 8:26 AM LAUNDERER HAND Gender Identity Female 05/31/2023 8:26 AM LAUNDERER HAND Sexual Orientation Straight 05/31/2023 8: 26 AM LAUNDERER HAND documented as of this encounter Plan of Treatment Upcoming Encounters Date Type Department Care Team (Late st Contact Info) Description 02/25/2024 10:00 AM CDT Clinical Communication Virtual Review in [place], [place] 200 [place] [address] 02/27/2024 7:30 AM CDT Appointment Department of Radiology, [facility] in [place], [place] [address] [place] [phone] Zhane Granados, GAIL, C.N.P. [address] [place] [phone] 02/27/2024 8:45 AM CDT Clinical Support Department of Palliative Care in [place], [place] [address] [place] [phone] Bereket Johnson APRN, Harsha.N.P., D.N.P. [address] [place] [phone] 02/27/2024 9:45 AM CDT Clinical Support Department of Palliative Care in [place], [place] [address] [place] [phone] Marija Olivas APRN, C.N.P., M.S.N. [address] [place] [phone] 02/27/2024 11:00 AM CDT Lab Department of Laboratory Medicine and Pathology, [facility] in [place], [place] [address] [place] [phone] Zhane Granados APRN, C.N.P. [address] [place] [phone] 02/27/2024 1:00 PM CDT Office Visit Department of Oncology in [place], [place] [address] [place] [phone] Pérez Zuniga M.D., Ph.D. [address] [place] [phone] 02/27/2024 1:45 PM CDT Infusion Department of Oncology in [place], [place] [address] [place] [phone] Zhane Granados APRN, C.N.P. [address] [place] [phone] 03/17/2024 7:00 AM CDT Clinical Communication Virtual Review in [place], [place] 200 [place] [address] 03/19/2024 10:45 AM CDT Clinical Support Department of Palliative Care in [place], [place] [address] [place] [phone] Marija Olivas APRN, C.N.P., M.S.N. [address] [place] [phone] 03/19/2024 11:30 AM CDT Office Visit Department of Palliative Care in [place], [place] [address] [place] [phone] Valentine Kelsey M.D., M.S. [address] [place] [phone] 03/19/2024 11:40 AM CDT Lab Department of Laboratory Medicine and Pathology, [facility] in [place], [place] [address] [place] [phone] Zhane Granados APRN, C.N.P. [address] [place] [phone] 03/19/2024 1:40 PM CDT Office Visit Department of Oncology in [place], [place] [address] [place] [phone] Pérez Zuniga M.D., Ph.D. [address] [place] [phone] 03/19/2024 2:45 PM CDT Infusion Department of Oncology in [place], [place] [address] [place] [phone] Zhane Granados APRN, C.N.P. [address] [place] [phone] 03/24/2024 3:00 PM CDT Clinical Communication Virtual Review in [place], [place] 200 [place] [address] 03/26/2024 7:45 AM CDT Appointment Department of Radiology, [facility], in [place], [place] [address] [place] [address] Zhane Granados APRN, C.N.P. [address] [place] [phone] 03/26/2024 3:20 PM CDT Office Visit Department of Oncology in [place], [place] [address] [place] [phone] Pérez Zuniga M.D., Ph.D. [address] [place] [phone] documented as of this encounter Visit Diagnoses Not on filedocumented in this encounter Additional Health Concerns Infection Onset Date Last Indicated Resolved Time Protective Environment 06/04/2023 06/04/2023 documented as of this encounter Care Teams Raw Products Director Relationship Specialty Start Date End Date Elsewhere, Pcp PCP - General Family Medicine 06/17/23 documented as of this encounter
--- OUTSIDE RECORDS SUMMARY | 2024-02-21 15:08 | XMS_ITS | Encounter Summary ---
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 [address] [place] [address] [facility] Region Referral ID Status Reason Start Date Expiration Date V isits Requested Visits Authorized [id number] Authorized 11/26/2023 11/25/2024 10 10 Encounter Details Date Type Department Care Team (Latest Contact Info) Description 12/05/2023 1:00 PM CDT - 12/05/2023 3:27 PM CDT Hospital Encounter Department of Radiation Oncology in [place], [place] [address] [place] [address] Tara López M.D. [address] [place] [address] Melanoma Trunk (HCC); Secondary Malignant Neoplasm Bone (HCC) Social History Tobacco Use Types Packs/Day Years Used Date Smoking Tobacco: Never Passive Smoke Exposure: Never Smokeless Tobacco: Never Alcohol Use Standard Drinks/Week Comments Not Currently 0 (1 standard drink = 0.6 oz pur e alcohol) Occasional [email or web address]) Utilities Answer Date Recorded In the past 12 months has th e [employer], gas, oil, or water [employer] threatened to shut off services in your [...] Sex Assigned at Female 05/31/2023 8:26 AM HOSPITALITY MANAGER Gender Identity Female 05/31/2023 8:26 AM HOSPITALITY MANAGER Sexual Orientation Straight 05/31/2023 8: 26 AM HOSPITALITY MANAGER documented as of this encounter Last Filed Vital Signs Vital Sign Reading Time Taken Comments Blood Pressure 110/73 12/05/2023 2:18 PM CDT Pulse 99 12/05/2023 2:18 PM CDT Temperature 36.2 ??C (97.2 ??F) 12/05/2023 2:18 PM CD T Respiratory Rate - - Oxygen Saturation - - Inhaled Oxygen Concentration - - Weight 78.7 kg (173 lb 8 oz) 12/05/2023 2:18 PM CDT Height - - Body Mass Index 32.51 11/26/2023 12:56 PM CDT documented in this encounter Medications [...] 11/05/2023 01/01/2024 documented as of this encounter Progress Notes * Emperatriz Ansari APRN, C.N.P., D.N.P. - 12/05/2023 2:30 PM CDT SUBJECTIVE REASON FOR VISIT Evaluation for side effects while receiving radiation treatment for 1. Melanoma Trunk (HCC) 2. Secondary Malignant Neoplasm Bone (HCC) SUPERVISED BY: Tara López M.D. HISTORY OF PRESENT ILLNESS Tony Cota is a 48 y.o. female with metastatic malignant melanoma with bone metastases. She is undergoing SBRT to her left humerus, proximal left femur, and bilateral distal femurs. Treatment Course: 2xMultiSiteSBRT Plan ID Fractions Dose / Fraction (cGy) Dose Treated (cGy) Dose Planned (cGy) First Treatment Last Treatment Elapsed Days A0AwsbmakR 1 / 1200 1200 3600 12/04/2023 12/04/2023 0 Q9VlszkI 1 1200 1200 3600 12/04/2023 12/04/2023 0 T2IcoYimpoT 1200 1200 3600 12/05/2023 12/05/2023 0 [id number] 1200 1200 3600 12/05/2023 12/05/2023 0 Course Summary 12/04/2023 12/05/2023 1 The patient was seen and examined today with Dr. López. The patient reports a slight increase in pain to her left shoulder after initiating radiation treatment yesterday. She reports the pain a 5-6/10 at its worse. This pain does limit her mobility slightly. She also noticed more notable pain in her left hip following treatment yesterday. She reports this pain a 4/10 at its worse. She took 1 tablet of Tylenol and found this helpful in making her feel more comfortable. She denies any pain in her distal femurs. She reports stable moderate fatigue. Shedenies any other new concerns. PATIENT REPORTED SYMPTOM SCREEN FATIGUE (Scale: 0 = no fatigue; 10 = worst fatigue you can imagine): 8 PAIN (Scale: 0 = no pain; 10 = worst pain you can imagine): 6 OVERALL QUALITY OF LIFE (Scale: 0 = as bad as can be; 10 = as good as can be): 6 OBJECTIVE BP 110/73 (BP Location: Left arm, Patient Position: Sitting, Cuff Size: Regular) Pulse 99 Temp 36.2 ??C (Temporal) Wt 78.7 kg BMI 32.51 kg/m?? PHYSICAL EXAM General: Alert and oriented in no apparent distress. ASSESSMENT / PLAN #1 Metastatic malignant melanoma [...] femur initiated December 04, 2023; anticipated completion dateMa2023 #6 SBRT to bilateral distal femurs initiated December 05, 2023; anticipated completion date December 12, 2023 The patient is tolerating radiation treatment well overall. We discussed starting to take Tylenol at least twice a day to help keep a form of pain relief on board. We discussed she could increase this to every 6 hours if pain continues to worsen. She will continue with radiation treatment as planned. She is encouraged to contact the team with any questions or concerns. We will plan to see her next week, if not sooner. Signed by: Emperatriz Ansari APRN, C.N.P., D.N.P. 12/05/2023 1:20 PM CDT Associated attestation - Tara López M.D. - 12/05/2023 3:27 PM CDT I saw and evaluated the patient and participated in the marcial portions of the service. I reviewed thedocumentation of . Emperatrizneo Ansari APRN and agree with the findings and plan. The patient appears well on exam. We will continue with radiation as planned and monitor weekly. Tara López M.D., 12/05/2023 documented in this encounter Plan of Treatment Upcoming Encounters Date Type Department Care Team (Late st Contact Info) Description 02/25/2024 10:00 AM CDT Clinical Communication Virtual Review in [address] [phone] 02/27/2024 7:30 AM CDT Appointment Department of Radiology, [facility] in [address] [phone] Zhane Granados APRN, C.N.P. [address] [place] [phone] 02/27/2024 8:45 AM CDT Clinical Support Department of Palliative Care in [address] [phone] Bereket Johnson APRN, C.N.P., D.N.P. [address] [place] [phone] 02/27/2024 9:45 AM CDT Clinical Support Department of Palliative Care in [address] [phone] Marija Olivas APRN, C.N.P., M.S.N. [address] [place] [phone] 02/27/2024 11:00 AM CDT Lab Department of Laboratory Medicine and Pathology, [facility] in [place] [address] [place] [phone] Zhane Granados APRN, Harsha.N.P. [address] [place] [phone] 02/27/2024 1:00 PM CDT Office Visit Department of Oncology in [place], [place] [address] [place] [phone] Pérez Zuniga M.D., Ph.D. [address] [place] [phone] 02/27/2024 1:45 PM CDT Infusion Department of Oncology in [place], [place] [address] [place] [phone] Zhane Granados APRN, Harsha.N.P. [address] [place] [phone] 03/17/2024 7:00 AM CDT Clinical Communication Virtual Review in [place], [place] 200 [place] [address] 03/19/2024 10:45 AM CDT Clinical Support Department of Palliative Care in [address] [phone] Marija Olivas APRN, C.N.P., M.S.N. [address] [place] [phone] 03/19/2024 11:30 AM CDT Office Visit Department of Palliative Care in [place], [place] [address] [place] [phone] Valentine Kelsey M.D., M.S. [address] [place] [phone] 03/19/2024 11:40 AM CDT Lab Department of Laboratory Medicine and Pathology, [facility] in [place], [place] [address] [place] [phone] Zhane Granados APRN, C.N.P. [address] [place] [phone] 03/19/2024 1:40 PM CDT Office Visit Department of Oncology in [place], [place] [address] [place] [phone] Pérez Zuniga M.D., Ph.D. [address] [place] [phone] 03/19/2024 2:45 PM CDT Infusion Department of Oncology in [place], [place] [address] [place] [phone] Zhane Granados APRN, C.N.P. [address] [place] [phone] 03/24/2024 3:00 PM CDT Clinical Communication Virtual Review in [place], [place] 200 [place] [address] 03/26/2024 7:45 AM CDT Appointment Department of Radiology, [facility] in [place], [place] [address] [place] [phone] Zhane Granados APRN, C.N.P. [address] [place] [phone] 03/26/2024 3:20 PM CDT Office Visit Department of Oncology in [place], [place] [address] [place] [phone] Pérez Zuniga M.D., Ph.D. 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
--- OUTSIDE RECORDS SUMMARY | 2024-02-21 15:08 | XMS_ITS | Encounter Summary ---
Author Organization [facility] Address [address] [place] [address] Care Team Providers Care Water Fitness Instructor Name Role Phone Elsewhere, Pcp Primary Care Provider Unavailabl e Reason for Visit * Radiation Therapy (Routine) - Closed Specialty Diagnoses / Procedures Referred By Contac t Referred To Contact Diagnoses Secondary Malignant Neoplasm Brain (HCC) Procedures Prior Auth Rad Tx [place] STEREOTACTIC BODY RADTN DEL SBRT Tara López M.D. [address] [place] [address] [facility] [place] [address] [place] [phone] Referral ID Status Reason Start Date Expiration Date Visits Re quested Visits Authorized [id number] Closed 10/04/2023 09/29/2024 3 5 Encounter Details Date Type Department Care Team (Latest Contact Info) Description 12/10/2023 10:16 AM CDT - 12/10/2023 11:59 PM CDT Hospital Encounter Department of Radiation Oncology in [address] [phone] Tara López M.D. [address] [place] [address] Discharge Disposition: Home or Self Care Social [...] Sex Assigned at Female 05/31/2023 8:26 AM COLLECTION CLERK Gender Identity Female 05/31/2023 8:26 AM COLLECTION CLERK Sexual Orientation Straight 05/31/2023 8: 26 AM COLLECTION CLERK documented as of this encounter Medications at [...] AM CDT Clinical Communication Virtual Review in [place], [place] [address] [place] [address] 02/27/2024 7:30 AM CDT Appointment Department of Radiology, [facility], in [place], [place] [address] [place] [address] Zhane Granados APRN, C.N.P. [address] [place] [phone] 02/27/2024 8:45 AM CDT Clinical Support Department of Palliative Care in [place], [place] [address] [place] [phone] Bereket Johnson APRN, C.N.P., D.N.P. [address] [place] [phone] 02/27/2024 9:45 AM CDT Clinical Support Department of Palliative Care in [place], [place] [address] [place] [phone] Marija Olivas APRN, C.N.P., M.S.N. [address] [place] [phone] 02/27/2024 11:00 AM CDT Lab Department of Laboratory Medicine and Pathology, [facility] in [place], [place] [address] [place] [phone] Zhane Granados APRN, C.N.P. [address] [place] [phone] 02/27/2024 1:00 PM CDT Office Visit Department of Oncology in [place], [place] [address] [place] [phone] Pérez Zuniga M.D., Ph.D. [address] [place] [phone] 02/27/2024 1:45 PM CDT Infusion Department of Oncology in [place], [place] [address] [place] [phone] Zhane Granados APRN, C.N.P. [address] [place] [phone] 03/17/2024 7:00 AM CDT Clinical Communication Virtual Review in [place], [place] 200 [place] [address] 03/19/2024 10:45 AM CDT Clinical Support Department of Palliative Care in [address] [phone] Marija Olivas APRN, Harsha.N.P., M.S.N. [address] [place] [phone] 03/19/2024 11:30 AM CDT Office Visit Department of Palliative Care in [address] [phone] Valentine Kelsey M.D., M.S. [address] [place] [phone] 03/19/2024 11:40 AM CDT Lab Department of Laboratory Medicine and Pathology, [facility] in [address] [phone] Zhane Granados APRN, C.N.P. [address] [place] [phone] 03/19/2024 1:40 PM CDT Office Visit Department of Oncology in [address] [phone] Pérez Zuniga M.D., Ph.D. [address] [place] [phone] 03/19/2024 2:45 PM CDT Infusion Department of Oncology in [place], [place] [address] [place] [phone] Zhane Granados APRN, C.N.P. [address] [place] [phone] 03/24/2024 3:00 PM CDT Clinical Communication Virtual Review in [place], [place] [address] [place] [address] 03/26/2024 7:45 AM CDT Appointment Department of Radiology, [facility], in [place], [place] [address] [place] [phone] Zhane Granados APRN, C.N.P. [address] [place] [phone] 03/26/2024 3:20 PM CDT Office Visit Department of Oncology in [place], [place] [address] [place] [phone] Pérez Zuniga M.D., Ph.D. [address] [place] [phone] documented as of this encounter Visit Diagnoses Not on filedocumented in this encounter Additional Health Concerns Infection Onset Date Last Indicated Resolved Time Protective Environment 06/04/2023 06/04/2023 documented as of this encounter Care Teams Water Fitness Instructor Relationship Specialty Start Date End Date Elsewhere, Pcp PCP - General Family Medicine 06/17/23 documented as of this encounter
--- OUTSIDE RECORDS SUMMARY | 2024-02-21 15:08 | XMS_ITS | Encounter Summary ---
Author Organization [facility] Address [address] [place] [address] Care Team Providers Care Tempering Kiln Tender Name Role Phone Elsewhere, Pcp Primary Care Provider Unavailabl e Reason for Visit * Radiation Therapy (Routine) - Closed Specialty Diagnoses / Procedures Referred By Contac t Referred To Contact Diagnoses Secondary Malignant Neoplasm Brain (HCC) Procedures Prior Auth Rad Tx CT STEREOTACTIC BODY RADTN DEL SBRT Tara López M.D. [address] [place] [address] T [facility] at [place] [address] [place] [phone] Referral ID Status Reason Start Date Expiration Date Visits Re quested Visits Authorized [id number] Closed 10/04/2023 09/29/2024 3 5 Encounter Details Date Type Department Care Team (Latest Contact Info) Description 12/04/2023 12:56 PM CDT - 12/04/2023 11:59 PM CDT Hospital Encounter Department of Radiation Oncology in [place], [place] [address] [place] [phone] Tara López M.D. [address] [place] [phone] Discharge Disposition: Home or Self Care Social History Tobacco Use Types Packs/Day Years Used Date Smoking Tobacco: Never Passive Smoke Exposure: Never Smokeless Tobacco: Never Alcohol Use Standard Drinks/Week Comments Not Currently 0 (1 standard drink = 0.6 oz pur e alcohol) Occasional [facility] Utilities Answer Date Recorded In the [...] Sex Assigned at Female 05/31/2023 8:26 AM TECHNICAL DELIVERY MANAGER Gender Identity Female 05/31/2023 8:26 AM TECHNICAL DELIVERY MANAGER Sexual Orientation Straight 05/31/2023 8: 26 AM TECHNICAL DELIVERY MANAGER documented as of this encounter Medications at [...] AM CDT Clinical Communication Virtual Review in [place], [place] [address] [place] [address] 02/27/2024 7:30 AM CDT Appointment Department of Radiology, [facility], in [place], [place] [address] [place] [phone] Zhane Granados APRN, C.N.P. [address] [place] [phone] 02/27/2024 8:45 AM CDT Clinical Support Department of Palliative Care in [place], [place] [address] [place] [phone] Bereket Johnson APRN, C.N.P., D.N.P. [address] [place] [phone] 02/27/2024 9:45 AM CDT Clinical Support Department of Palliative Care in [place], [place] [address] [place] [phone] Marija Olivas APRN, C.N.P., M.S.N. [address] [place] [phone] 02/27/2024 11:00 AM CDT Lab Department of Laboratory Medicine and Pathology, [facility] in [place], [place] [address] [place] [phone] Zhane Granados APRN, C.N.P. [address] [place] [phone] 02/27/2024 1:00 PM CDT Office Visit Department of Oncology in [place], [place] [address] [place] [phone] Pérez Zuniga M.D., Ph.D. [address] [place] [phone] 02/27/2024 1:45 PM CDT Infusion Department of Oncology in [place], [place] [address] [place] [phone] Zhane Granados APRN, C.N.P. [address] [place] [phone] 03/17/2024 7:00 AM CDT Clinical Communication Virtual Review in [place], [place] [address] [place] [address] 03/19/2024 10:45 AM CDT Clinical Support Department of Palliative Care in [address] [phone] Marija Olivas APRN, Harsha.N.P., M.S.N. [address] [place] [phone] 03/19/2024 11:30 AM CDT Office Visit Department of Palliative Care in [address] [phone] Valentine Kelsey M.D., M.S. [address] [place] [phone] 03/19/2024 11:40 AM CDT Lab Department of Laboratory Medicine and Pathology, [facility] in [address] [phone] Zhane Granados APRN, C.N.P. [address] [place] [phone] 03/19/2024 1:40 PM CDT Office Visit Department of Oncology in [address] [phone] Pérez Zuniga M.D., Ph.D. [address] [place] [phone] 03/19/2024 2:45 PM CDT Infusion Department of Oncology in [place], [place] [address] [place] [phone] Zhane Granados APRN, C.N.P. [address] [place] [phone] 03/24/2024 3:00 PM CDT Clinical Communication Virtual Review in [place], [place] [address] [place] [address] 03/26/2024 7:45 AM CDT Appointment Department of Radiology, [facility], in [place], [place] [address] [place] [phone] Zhane Granados APRN, C.N.P. [address] [place] [phone] 03/26/2024 3:20 PM CDT Office Visit Department of Oncology in [place], [place] [address] [place] [phone] Pérez Zuniga M.D., Ph.D. [address] [place] [phone] documented as of this encounter Visit Diagnoses Not on filedocumented in this encounter Additional Health Concerns Infection Onset Date Last Indicated Resolved Time Protective Environment 06/04/2023 06/04/2023 documented as of this encounter Care Teams Tempering Kiln Tender Relationship Specialty Start Date End Date Elsewhere, Pcp PCP - General Family Medicine 06/17/23 documented as of this encounter
--- OUTSIDE RECORDS SUMMARY | 2024-02-21 15:08 | XMS_ITS | Encounter Summary ---
Author Organization [facility] Address [address] [place] [address] Care Team Providers Care Performance Management Consultant Name Role Phone Elsewhere, Pcp Primary Care Provider Unavailabl e Encounter Details Date Type Department Care Team (Late st Contact Info) Description 11/29/2023 Clinical Communication Department of Oncology in [place], [place] [address] [place] [phone] Pérez Zuniga M.D., Ph.D. [address] [place] [phone] Social History Tobacco Use Types Packs/Day Years [...] Assigned at Female 05/31/2023 8:26 AM DIRECTOR STATE PHARMACY Gender Identity Female 05/31/2023 8:26 AM DIRECTOR STATE PHARMAC[employer] Sexual Orientation Straight 05/31/2023 8: 26 AM DIRECTOR STATE PHARMACY documented as of this encounter Plan of Treatment Upcoming Encounters Date Type Department Care Team (Late st Contact Info) Description 02/25/2024 10:00 AM CDT Clinical Communication Virtual Review in [place], [place] 200 [place] [phone] 02/27/2024 7:30 AM CDT Appointment Department of Radiology, [facility] in [place], [place] [address] [place] [phone] Zhane Granados, GAIL, C.N.P. [address] [place] [phone] 02/27/2024 8:45 AM CDT Clinical Support Department of Palliative Care in [place], [place] [address] [place] [phone] Bereket Johnson APRN, C.N.P., D.N.P. [address] [place] [phone] 02/27/2024 9:45 AM CDT Clinical Support Department of Palliative Care in [place], [place] [address] [place] [phone] Marija Olivas APRN, C.N.P., M.S.N. [address] [place] [phone] 02/27/2024 11:00 AM CDT Lab Department of Laboratory Medicine and Pathology, [facility] in [place], [place] [address] [place] [phone] Zhane Granados APRN, C.N.P. [address] [place] [phone] 02/27/2024 1:00 PM CDT Office Visit Department of Oncology in [place], [place] [address] [place] [phone] Pérez Zuniga M.D., Ph.D. [address] [place] [phone] 02/27/2024 1:45 PM CDT Infusion Department of Oncology in [place], [place] [address] [place] [phone] Zhane Granados APRN, C.N.P. [address] [place] [phone] 03/17/2024 7:00 AM CDT Clinical Communication Virtual Review in [place], [place] 200 [place] [address] 03/19/2024 10:45 AM CDT Clinical Support Department of Palliative Care in [place], [place] [address] [place] [phone] Marija Olivas APRN, C.N.Dina., M.S.N. [address] [place] [phone] 03/19/2024 11:30 AM CDT Office Visit Department of Palliative Care in [place], [place] [address] [place] [phone] Valentine Kelsey M.D., M.S. [address] [place] [phone] 03/19/2024 11:40 AM CDT Lab Department of Laboratory Medicine and Pathology, [facility] in [place], [place] [address] [place] [phone] Zhane Granados APRN, C.N.P. [address] [place] [phone] 03/19/2024 1:40 PM CDT Office Visit Department of Oncology in [place], [place] [address] [place] [phone] Pérez Zuniga M.D., Ph.D. [address] [place] [phone] 03/19/2024 2:45 PM CDT Infusion Department of Oncology in [place], [place] [address] [place] [phone] Zhane Granados APRN, C.N.P. [address] [place] [phone] 03/24/2024 3:00 PM CDT Clinical Communication Virtual Review in [place], [place] 200 [place] [address] 03/26/2024 7:45 AM CDT Appointment Department of Radiology, [facility] in [place], [place] [address] [place] [address] Zhane Granados APRN, C.N.P. [address] [place] [phone] 03/26/2024 3:20 PM CDT Office Visit Department of Oncology in [place], [place] [address] [place] [phone] Pérez Zuniga M.D., Ph.D. [address] [place] [phone] documented as of this encounter Visit Diagnoses Not on filedocumented in this encounter Additional Health Concerns Infection Onset Date Last Indicated Resolved Time Protective Environment 06/04/2023 06/04/2023 documented as of this encounter Care Teams Performance Management Consultant Relationship Specialty Start Date End Date Elsewhere, Pcp PCP - General Family Medicine 06/17/23 documented as of this encounter
--- OUTSIDE RECORDS SUMMARY | 2024-02-21 15:08 | XMS_ITS | Encounter Summary ---
Author Organization [facility] Address [address] [place] [address] Care Team Providers Care Boat Fueler Name Role Phone Elsewhere, Pcp Primary Care Provider Unavailabl e Encounter Details Date Type Department Care Team (Latest Contact Info) Description 12/11/2023 12:54 PM CDT - 12/11/2023 11:59 PM CDT Hospital Encounter Department of Radiation Oncology in [place], [place] [address] [place] [phone] Tara López M.D. [address] [place] [address] Discharge Disposition: Home or Self Care Social History Tobacco Use Types Packs/Day Years Used Date Smoking Tobacco: Never Passive Smoke Exposure: Never Smokeless Tobacco: Never Alcohol Use Standard Drinks/Week Comments Not Currently 0 (1 standard drink = 0.6 oz pur e alcohol) Occasional C Utilities Answer Date Recorded In the past 12 months has [employer], gas, oil, or water [employer] threatened to shut off services in your [...] your living situation today? I have a [facility] place to live 07/10/2023 Sex and Gender Information Value Date Recorded Sex Assigned at Female 05/31/2023 8:26 AM TITLE INSURANCE SALES REPRESENTATIVE Gender Identity Female 05/31/2023 8:26 AM TITLE INSURANCE SALES REPRESENTATIVE Sexual Orientation Straight 05/31/2023 8: 26 AM TITLE INSURANCE SALES REPRESENTATIVE documented as of this encounter Medications at [...] AM CDT Clinical Communication Virtual Review in [place], [place] 200 [place] [address] 02/27/2024 7:30 AM CDT Appointment Department of Radiology, [facility] in [address] [phone] Zhane Granados APRN, C.N.P. [address] [place] [phone] 02/27/2024 8:45 AM CDT Clinical Support Department of Palliative Care in [address] [phone] Bereket Johnson APRN, C.N.P., D.N.P. [address] [place] [phone] 02/27/2024 9:45 AM CDT Clinical Support Department of Palliative Care in [place], [place] [address] [place] [phone] Marija Olivas APRN, C.N.Dina., M.S.N. [address] [place] [phone] 02/27/2024 11:00 AM CDT Lab Department of Laboratory Medicine and Pathology, [facility], in [place], [place] [address] [place] [phone] Zhane Granados APRN, C.N.P. [address] [place] [phone] 02/27/2024 1:00 PM CDT Office Visit Department of Oncology in [address] [phone] Pérez Zuniga M.D., Ph.D. [address] [place] [phone] 02/27/2024 1:45 PM CDT Infusion Department of Oncology in [address] [phone] Zhane Granados APRN, C.N.P. [address] [place] [phone] 03/17/2024 7:00 AM CDT Clinical Communication Virtual Review in [place], [place] 200 [place] [address] 03/19/2024 10:45 AM CDT Clinical Support Department of Palliative Care in [place], [place] [address] [place] [phone] Marija Olivas APRN, C.N.P., M.S.N. [address] [place] [phone] 03/19/2024 11:30 AM CDT Office Visit Department of Palliative Care in [place], [place] [address] [place] [phone] Valentine Kelsey M.D., M.S. [address] [place] [phone] 03/19/2024 11:40 AM CDT Lab Department of Laboratory Medicine and Pathology, [facility] in [place], [place] [address] [place] [phone] Zhane Granados APRN, C.N.P. [address] [place] [phone] 03/19/2024 1:40 PM CDT Office Visit Department of Oncology in [place], [place] [address] [place] [phone] Pérez Zuniga M.D., Ph.D. [address] [place] [phone] 03/19/2024 2:45 PM CDT Infusion Department of Oncology in [address] [phone] Zhane Granados APRN, C.N.P. [address] [place] [phone] 03/24/2024 3:00 PM CDT Clinical Communication Virtual Review in [place], [place] 200 [place] [phone] 03/26/2024 7:45 AM CDT Appointment Department of Radiology, [facility] in [place], [place] [address] [place] [phone] Zhane Granados APRN, C.N.P. [address] [place] [phone] 03/26/2024 3:20 PM CDT Office Visit Department of Oncology in [place], [place] [address] [place] [phone] Pérez Zuniga M.D., Ph.D. [address] [place] [phone] documented as of this encounter Visit Diagnoses Not on filedocumented in this encounter Additional Health Concerns Infection Onset Date Last Indicated Resolved Time Protective Environment 06/04/2023 06/04/2023 documented as of this encounter Care Teams Boat Fueler Relationship Specialty Start Date End Date Elsewhere, Pcp PCP - General Family Medicine 06/17/23 documented as of this encounter
--- OUTSIDE RECORDS SUMMARY | 2024-02-21 15:08 | XMS_ITS | Encounter Summary ---
Author Organization [facility] Address [address] [place] [phone] Care Team Providers Care Patcher Name Role Phone Elsewhere, Pcp Primary Care Provider Unavailabl e Encounter Details Date Type Department Care Team (Late st Contact Info) Description 12/05/2023 Clinical Communication Department of Oncology in [place], [place] [address] [place] [phone] Anahy Amezcua, RSantoshN., O.C.N. [address] [place] [phone] Social History Tobacco Use Types Packs/Day Years Used Date Smoking Tobacco: Never Passive Smoke Exposure: Never Smokeless Tobacco: Never Alcohol Use Standard Drinks/Week Comments Not Currently 0 (1 standard drink = 0.6 oz pur e alcohol) Occasional [facility] Utilities Answer Date Recorded In the past 12 months has th e [employer], gas, oil, or water [employer] threatened to shut off services in your [...] your living situation today? I have a [facility] place to live 07/10/2023 Sex and Gender Information Value Date Recorded Sex Assigned at Female 05/31/2023 8:26 AM FAMILY DENTIST Gender Identity Female 05/31/2023 8:26 AM FAMILY DENTIST Sexual Orientation Straight 05/31/2023 8: 26 AM FAMILY DENTIST documented as of this encounter Miscellaneous Notes * Telephone Encounter - Anahy Amezcua R.N., O.C.N. - 12/05/2023 9:50 AM CDT ----- Message from Nurse Higginbotham sent at 11/26/2023 1:59 PM CDT ----- Watch for CMP done locally each week documented in this encounter Plan of Treatment Upcoming Encounters Date Type Department Care Team (Late st Contact Info) Description 02/25/2024 10:00 AM CDT Clinical Communication Virtual Review in [place], [place] [address] [place] [phone] 02/27/2024 7:30 AM CDT Appointment Department of Radiology, [facility] in [place], [place] [address] [place] [phone] Zhane Granados APRN, C.N.P. [address] [place] [phone] 02/27/2024 8:45 AM CDT Clinical Support Department of Palliative Care in [place], [place] [address] [place] [phone] Bereket Johnson APRN, C.N.P., D.N.P. [address] [place] [phone] 02/27/2024 9:45 AM CDT Clinical Support Department of Palliative Care in [place], [place] [address] [place] [phone] Marija Olivas APRN, Harsha.N.P., M.S.N. [address] [place] [phone] 02/27/2024 11:00 AM CDT Lab Department of Laboratory Medicine and Pathology, [facility], in [place], [place] [address] [place] [phone] Zhane Granados APRN, C.N.P. [address] [place] [phone] 02/27/2024 1:00 PM CDT Office Visit Department of Oncology in [place], [place] [address] [place] [phone] Pérez Zuniga M.D., Ph.D. [address] [place] [phone] 02/27/2024 1:45 PM CDT Infusion Department of Oncology in [place], [place] [address] [place] [phone] Zhane Granados APRN, C.N.P. [address] [place] [phone] 03/17/2024 7:00 AM CDT Clinical Communication Virtual Review in [place], [place] 200 [place] [phone] 03/19/2024 10:45 AM CDT Clinical Support Department of Palliative Care in [address] [phone] Marija Olivas APRN, C.N.P., M.S.N. [address] [place] [phone] 03/19/2024 11:30 AM CDT Office Visit Department of Palliative Care in [address] [phone] Valentine Kelsey M.D., M.S. [address] [place] [phone] 03/19/2024 11:40 AM CDT Lab Department of Laboratory Medicine and Pathology, [facility], in [address] [phone] Zhane Granados APRN, C.N.P. [address] [place] [phone] 03/19/2024 1:40 PM CDT Office Visit Department of Oncology in [address] [phone] Pérez Zuniga M.D., Ph.D. [address] [place] [phone] 03/19/2024 2:45 PM CDT Infusion Department of Oncology in [address] [phone] Zhane Granados APRN, C.N.P. [address] [place] [phone] 03/24/2024 3:00 PM CDT Clinical Communication Virtual Review in [place], [place] [address] [place] [address] 03/26/2024 7:45 AM CDT Appointment Department of Radiology, [facility], in [place], [place] [address] [place] [phone] Zhane Granados APRN, C.N.P. [address] [place] [phone] 03/26/2024 3:20 PM CDT Office Visit Department of Oncology in [place], [place] [address] [place] [phone] Pérez Zuniga M.D., Ph.D. [address] [place] [phone] documented as of this encounter Visit Diagnoses Not on filedocumented in this encounter Additional Health Concerns Infection Onset Date Last Indicated Resolved Time Protective Environment 06/04/2023 06/04/2023 documented as of this encounter Care Teams Patcher Relationship Specialty Start Date End Date Elsewhere, Pcp PCP - General Family Medicine 06/17/23 documented as of this encounter
--- OUTSIDE RECORDS SUMMARY | 2024-02-21 15:08 | XMS_ITS | Encounter Summary ---
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 [address] [place] [address] [facility] Region Referral ID Status Reason Start Date Expiration Date V isits Requested Visits Authorized [id number] Authorized 11/26/2023 11/25/2024 10 10 Encounter Details Date Type Department Care Team (Latest Contact Info) Description 12/10/2023 10:16 AM CDT - 12/10/2023 2:58 PM CDT Hospital Encounter Department of Radiation Oncology in [place], [place] [address] [place] [address] Tara López M.D. [address] [place] [address] Melanoma Trunk (HCC); Secondary Malignant Neoplasm Bone (HCC) Social History Tobacco Use Types Packs/Day Years Used Date Smoking Tobacco: Never Passive Smoke Exposure: Never Smokeless Tobacco: Never Alcohol Use Standard Drinks/Week Comments Not Currently 0 (1 standard drink = 0.6 oz pur e alcohol) Occasional [employer] Utilities Answer Date Recorded In the past 12 months has th e [employer], gas, oil, or water [employer] threatened to shut off services in your [...] Sex Assigned at Female 05/31/2023 8:26 AM PAD TUFTER Gender Identity Female 05/31/2023 8:26 AM PAD TUFTER Sexual Orientation Straight 05/31/2023 8: 26 AM PAD TUFTER documented as of this encounter Last Filed Vital Signs Vital Sign Reading Time Taken Comments Blood Pressure 123/76 12/10/2023 11:18 AM CDT Pulse 101 12/10/2023 11:18 AM CDT Temperature 36.8 ??C (98.3 ??F) 12/10/2023 11:18 AM C DT Respiratory Rate - - Oxygen Saturation - - Inhaled Oxygen Concentration - - Weight 78.2 kg (172 lb 6.4 oz) 12/10/2023 11:18 AM CDT Height - - Body Mass Index 32.3 11/26/2023 12:56 PM CDT documented in this [...] as of this encounter Progress Notes * Tara López M.D. - 12/10/2023 11:30 AM CDT ATTESTATION FOR MANAGEMENT VISIT I saw and evaluated the patient and participated in the marcial portions of the service as noted below.I reviewed the documentation of Ms. Mariela Crabtree RN and agree with the findings and plan. Thepatient appears well on exam. We will continue with radiation as planned and we anticipate that jolanta complete treatments this week. We anticipate that Tony Cota will complete radiation treatment as planned without interruptions. The course of treatment was tolerated well. The patient experienced toxicities of grade 1 pain during radiation treatment. She is feeling better on a higher dose of steroids Follow-up will be with Ms. Granados on December 25, and I will see her again as needed. Their questions were answered; they were comfortable with this plan. Tara López M.D., 12/10/2023 SUBJECTIVE REASON FOR VISIT Evaluation for side [...] (cGy) First Treatment Last Treatment Elapsed Days L8SuoxaysR 2 / 3 1200 2400 3600 12/04/2023 12/06/2023 2 O7ThwouZ 2 / 3 1200 2400 3600 12/04/2023 12/06/2023 2 T1ZgxSyfzeI 2 / 3 1200 2400 3600 12/05/2023 12/10/2023 5 R8AowTitgqM 2 / 3 1200 2400 3600 12/05/2023 12/10/2023 5 Course Summary 12/04/2023 12/10/2023 6 The patient was seen and examined today with Dr. López. The patient reports to be feeling well overall. She noted mild discomfort in her left shoulder withcertain movements but denies a significant change in her pain. She reports that her steroid dose with double due to immunotherapy related side effects and this has also helped with the discomfort shewas having. She takes Tylenol occasionally if needed. She denies any pain in her distal femurs. She reports stable moderate fatigue. She denies any other new concerns. PATIENT REPORTED SYMPTOM SCREEN FATIGUE (Scale: 0 = no fatigue; 10 = worst fatigue you can imagine): 4 PAIN (Scale: 0 = no pain; 10 = worst pain you can imagine): 4 OVERALL QUALITY OF LIFE (Scale: 0 = as bad as can be; 10 = as good as can be): 6 OBJECTIVE BP 123/76 (BP Location: Right arm, Patient Position: Sitting, Cuff Size: Regular) Pulse 101 Temp 36.8 ??C (Temporal) Wt 78.2 kg BMI 32.30 kg/m?? PHYSICAL EXAM General: Alert and oriented [...] patient is tolerating radiation treatment well overall. She can continue to take Tylenol as needed for discomfort. Discussed with patient that radiation related side effects will start to resolvein the coming weeks. Patient will have ongoing follow up with Medical Oncology in [place]. Followup with Dr. Farley will be on an as needed basis. She will continue with radiation treatment as planned. She is encouraged to contact the team with any questions or concerns. Signed by: Mariela Crabtree RN 12/10/2023 documented in this encounter Plan of Treatment Upcoming Encounters Date Type Department Care Team (Late st Contact Info) Description 02/25/2024 10:00 AM CDT Clinical Communication Virtual Review in [address] [phone] 02/27/2024 7:30 AM CDT Appointment Department of Radiology, [facility] in [address] [phone] Zhane Granados APRN, C.N.P. [address] [place] [phone] 02/27/2024 8:45 AM CDT Clinical Support Department of Palliative Care in [address] [phone] Bereket Johnson APRN, C.N.P., D.N.P. [address] [place] [phone] 02/27/2024 9:45 AM CDT Clinical Support Department of Palliative Care in [place], [place] [address] [place] [phone] Marija Olivas APRN, C.N.Dina., M.S.N. [address] [place] [phone] 02/27/2024 11:00 AM CDT Lab Department of Laboratory Medicine and Pathology, [facility] in [place], [place] [address] [place] [phone] Zhane Granados APRN, C.N.P. [address] [place] [phone] 02/27/2024 1:00 PM CDT Office Visit Department of Oncology in [address] [phone] Pérez Zuniga M.D., Ph.D. [address] [place] [phone] 02/27/2024 1:45 PM CDT Infusion Department of Oncology in [address] [phone] Zhane Granados APRN, C.N.P. [address] [place] [phone] 03/17/2024 7:00 AM CDT Clinical Communication Virtual Review in [place], [place] 200 [place] [address] 03/19/2024 10:45 AM CDT Clinical Support Department of Palliative Care in [address] [phone] Marija Olivas APRN, C.N.Dina., M.S.N. [address] [place] [phone] 03/19/2024 11:30 AM CDT Office Visit Department of Palliative Care in [place], [place] [address] [place] [phone] Valentine Kelsey M.D., M.S. [address] [place] [phone] 03/19/2024 11:40 AM CDT Lab Department of Laboratory Medicine and Pathology, [facility] in [place], [place] [address] [place] [phone] Zhane Granados APRN, C.N.P. [address] [place] [phone] 03/19/2024 1:40 PM CDT Office Visit Department of Oncology in [address] [phone] Pérez Zuniga M.D., Ph.D. [address] [place] [phone] 03/19/2024 2:45 PM CDT Infusion Department of Oncology in [address] [phone] Zhane Granados APRN, C.N.P. [address] [place] [phone] 03/24/2024 3:00 PM CDT Clinical Communication Virtual Review in [place], [place] [address] [place] [address] 03/26/2024 7:45 AM CDT Appointment Department of Radiology, [facility], in [place], [place] [address] [place] [phone] Zhane Granados APRN, C.N.P. [address] [place] [phone] 03/26/2024 3:20 PM CDT Office Visit Department of Oncology in [place], [place] 200 [place] [address] Pérez Zuniga M.D., Ph.D. 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
--- OUTSIDE RECORDS SUMMARY | 2024-02-21 15:09 | XMS_ITS | Encounter Summary ---
Author Organization [facility] Address [address] [place] [address] Care Team Providers Care Veterinary Practitioner Name Role Phone Elsewhere, Pcp Primary Care Provider Unavailabl e Reason for Referral * Outpatient (Routine) - Authorized Specialty Diagnoses / Procedures Referred By Contac t Referred To Contact Radiation Oncology Tara López M.D. [address] [place] [address] 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 [address] [place] [address] 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 [address] [place] [address] [facility] Referral ID Status Reason Start Date Expiration Date Visits Re quested Visits Authorized [id number] Closed 11/26/2023 11/25/2024 1 1 Encounter Details Date Type Department Care Team (Late st Contact Info) Description 11/26/2023 Orders Only Department of Radiation Oncology in [place], [place] [address] [place] [phone] Morenita Martínez P.A.-C., M.S. [address] [place] [phone] Melanoma Trunk (HCC) (Primary Dx); Secondary Malignant Neoplasm Bone (HCC) Social History Tobacco Use Types Packs/Day Years Used Date Smoking Tobacco: Never Passive Smoke Exposure: Never Smokeless Tobacco: Never Alcohol Use Standard Drinks/Week Comments Not Currently 0 (1 standard drink = 0.6 oz pur e alcohol) Occasional [facility] Utilities Answer Date Recorded In the past 12 months has th e Exec, gas, oil, or water company threatened to [...] your living situation today? I have a [facility] place to live 07/10/2023 Sex and Gender Information Value Date Recorded Sex Assigned at Female 05/31/2023 8:26 AM ANDROID UI DEVELOPER Gender Identity Female 05/31/2023 8:26 AM ANDROID UI DEVELOPER Sexual Orientation Straight 05/31/2023 8: 26 AM ANDROID UI DEVELOPER documented as of this encounter Plan of Treatment Upcoming Encounters Date Type Department Care Team (Susana milan Contact Info) Description 02/25/2024 10:00 AM CDT Clinical Communication Virtual Review in [place], [place] [address] [place] [address] 02/27/2024 7:30 AM CDT Appointment Department of Radiology, [facility], in [place], [place] [address] [place] [address] Zhane Granados APRN, C.N.P. [address] [place] [phone] 02/27/2024 8:45 AM CDT Clinical Support Department of Palliative Care in [place], [place] [address] [place] [address] Bereket Johnson APRN, C.N.P., D.N.P. [address] [place] [phone] 02/27/2024 9:45 AM CDT Clinical Support Department of Palliative Care in [place], [place] [address] [place] [address] Marija Olivas APRN, C.N.P., M.S.N. [address] [place] [phone] 02/27/2024 11:00 AM CDT Lab Department of Laboratory Medicine and Pathology, [facility] in [place], [place] [address] [place] [address] Zhane Granados APRN, C.N.P. [address] [place] [phone] 02/27/2024 1:00 PM CDT Office Visit Department of Oncology in [place], [place] [address] [place] [phone] Pérez Zuniga M.D., Ph.D. [address] [place] [phone] 02/27/2024 1:45 PM CDT Infusion Department of Oncology in [place], [place] [address] [place] [address] Zhane Granados APRN, C.N.P. [address] [place] [phone] 03/17/2024 7:00 AM CDT Clinical Communication Virtual Review in [place], [place] 200 [place] [address] 03/19/2024 10:45 AM CDT Clinical Support Department of Palliative Care in [address] [phone] Marija Olivas APRN, C.N.P., M.S.N. [address] [place] [phone] 03/19/2024 11:30 AM CDT Office Visit Department of Palliative Care in [address] [phone] Valentine Kelsey M.D., M.S. [address] [place] [phone] 03/19/2024 11:40 AM CDT Lab Department of Laboratory Medicine and Pathology, [facility] in [address] [phone] Zhane Granados APRN, C.N.P. [address] [place] [phone] 03/19/2024 1:40 PM CDT Office Visit Department of Oncology in [address] [address] Pérez Zuniga M.D., Ph.D. [address] [place] [phone] 03/19/2024 2:45 PM CDT Infusion Department of Oncology in [address] [phone] Zhane Granados APRN, C.N.P. [address] [place] [phone] 03/24/2024 3:00 PM CDT Clinical Communication Virtual Review in [place], [place] [address] [place] [address] 03/26/2024 7:45 AM CDT Appointment Department of Radiology, [facility] in [place], [place] [address] [place] [phone] Zhane Granados APRN, C.N.P. [address] [place] [phone] 03/26/2024 3:20 PM CDT Office Visit Department of Oncology in [place], [place] [address] [place] [phone] Pérez Zuniga M.D., Ph.D. 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 11/27/2023 10:04 AM Initial Rad Onc Treatment Planning CT Simulation Performed by: Tara López M.D. Authorized by: [...] documented as of this encounter Care Teams Veterinary Practitioner Relationship Specialty Start Date End Date Elsewhere, Pcp PCP - General Family Medicine 06/17/23 documented as of this encounter
--- OUTSIDE RECORDS SUMMARY | 2024-02-21 15:09 | XMS_ITS | Encounter Summary ---
Author Organization [facility] Address [address] [place] [address] Care Team Providers Care Toy Mechanic Name Role Phone Elsewhere, Pcp Primary Care Provider Unavailabl e Reason for Referral * Outpatient (Routine) - Closed Specialty Diagnoses / Procedures Referred By Contsweetie t Referred To Contact Radiation Oncology Diagnoses Melanoma Trunk (HCC) Pérez Zuniga M.D., Ph.D. [address] [place] [phone] [facility] Referral ID Status Reason Start Date Expiration Date Visits Re quested Visits Authorized [id number] Closed 11/26/2023 05/27/2025 1 1 Encounter Details Date Type Department Care Team (Late st Contact Info) Description 11/26/2023 Orders Only Department of Oncology in [place], [place] [address] [place] [phone] Pérez Zuniga M.D., Ph.D. [address] [place] [phone] Melanoma Trunk (HCC) (Primary Dx); Secondary Malignant Neoplasm Brain (HCC); Secondary Malignant Neoplasm Bone (HCC) Social History Tobacco Use Types Packs/Day Years Used Date Smoking Tobacco: Never Passive Smoke Exposure: Never Smokeless Tobacco: Never Alcohol Use Standard Drinks/Week Comments Not Currently 0 (1 standard drink = 0.6 oz pur e alcohol) Occasional [facility] Utilities Answer Date Recorded In the [...] Sex Assigned at Female 05/31/2023 8:26 AM CONTROL ENGINEER Gender Identity Female 05/31/2023 8:26 AM CONTROL ENGINEER Sexual Orientation Straight 05/31/2023 8: 26 AM CONTROL ENGINEER documented as of this encounter Plan of Treatment Upcoming Encounters Date Type Department Care Team (Late Contact Info) Description 02/25/2024 10:00 AM CDT Clinical Communication Virtual Review in [place], [place] [address] [place] [address] 02/27/2024 7:30 AM CDT Appointment Department of Radiology, [facility] in [place], [place] [address] [place] [phone] Zhane Granados APRN, C.N.P. [address] [place] [phone] 02/27/2024 8:45 AM CDT Clinical Support Department of Palliative Care in [place], [place] [address] [place] [phone] Bereket Johnson APRN, C.N.P., D.N.P. [address] [place] [phone] 02/27/2024 9:45 AM CDT Clinical Support Department of Palliative Care in [place], [place] [address] [place] [phone] Marija Olivas APRN, C.N.P., M.S.N. [address] [place] [phone] 02/27/2024 11:00 AM CDT Lab Department of Laboratory Medicine and Pathology, [facility], in [place], [place] [address] [place] [phone] Zhane Granados APRN, C.N.P. [address] [place] [phone] 02/27/2024 1:00 PM CDT Office Visit Department of Oncology in [address] [phone] Pérez Zuniga M.D., Ph.D. [address] [place] [phone] 02/27/2024 1:45 PM CDT Infusion Department of Oncology in [place], [place] [address] [place] [phone] Zhane Granados APRN, C.N.P. [address] [place] [phone] 03/17/2024 7:00 AM CDT Clinical Communication Virtual Review in [place], [place] [address] [place] [address] 03/19/2024 10:45 AM CDT Clinical Support Department of Palliative Care in [address] [phone] Marija Olivas APRN, C.N.P., M.S.N. [address] [place] [phone] 03/19/2024 11:30 AM CDT Office Visit Department of Palliative Care in [place], [place] [address] [place] [phone] Valentine Kelsey M.D., M.S. [address] [place] [phone] 03/19/2024 11:40 AM CDT Lab Department of Laboratory Medicine and Pathology, [facility], in [place], [place] [address] [place] [phone] Zhane Granados APRN, C.N.P. [address] [place] [phone] 03/19/2024 1:40 PM CDT Office Visit Department of Oncology in [address] [phone] Pérez Zuniga M.D., Ph.D. [address] [place] [phone] 03/19/2024 2:45 PM CDT Infusion Department of Oncology in [place], [place] [address] [place] [phone] Zhane Granados APRN, C.N.P. [address] [place] [phone] 03/24/2024 3:00 PM CDT Clinical Communication Virtual Review in [place], [place] [address] [place] [address] 03/26/2024 7:45 AM CDT Appointment Department of Radiology, [facility], in [place], [place] [address] [place] [phone] Zhane Granados APRN, C.N.P. [address] [place] [phone] 03/26/2024 3:20 PM CDT Office Visit Department of Oncology in [place], [place] [address] [place] [phone] Pérez Zuniga M.D., Ph.D. 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
--- OUTSIDE RECORDS SUMMARY | 2024-02-21 15:09 | XMS_ITS | Encounter Summary ---
Author Organization [facility] Address [address] [place] [phone] Care Team Providers Care Log Marker Name Role Phone Elsewhere, Pcp Primary Care Provider Unavailabl e Reason for Visit * Outpatient (Routine) - Authorized Specialty Diagnoses / Procedures Referred By Contac t Referred To Contact Palliative Medicine Diagnoses Palliative Care Bereket Johnson APRN, C.N.P., D.N.P. [address] [place] [phone] [facility] Referral ID Status Reason Start Date Expiration Date V isits Requested Visits Authorized [id number] Authorized 10/29/2023 04/29/2025 3 3 Encounter Details Date Type Department Care Team (Late st Contact Info) Description 11/26/2023 10:15 AM CDT Clinical Support Department of Palliative Care in [place], [place] [address] [place] [phone] Bereket Johnson APRN, C.N.P., D.N.P. [address] [place] [phone] Myriam Moody R.N., CHPN [address] [place] [phone] Palliative Care Social History Tobacco Use Types Packs/Day Years Used Date Smoking Tobacco: Never Passive Smoke Exposure: Never Smokeless Tobacco: Never Alcohol Use Standard Drinks/Week Comments Not Currently 0 (1 standard drink = 0.6 oz pur e alcohol) Occasional [facility] Utilities Answer Date Recorded In the [...] your living situation today? I have a [facility] place to live 07/10/2023 Sex and Gender Information Value Date Recorded Sex Assigned at Female 05/31/2023 8:26 AM JUNIOR PROJECT COORDINATOR Gender Identity Female 05/31/2023 8:26 AM JUNIOR PROJECT COORDINATOR Sexual Orientation Straight 05/31/2023 8: 26 AM JUNIOR PROJECT COORDINATOR documented as of this encounter Last Filed Vital Signs Vital Sign Reading Time Taken Comments Blood Pressure 130/87 11/26/2023 11:36 AM CDT Pulse 80 11/26/2023 11:36 AM CDT Temperature 36.5 ??C (97.7 ??F) 11/26/2023 11:36 AM C DT Respiratory Rate - - Oxygen Saturation 98% 11/26/2023 11:36 AM CDT Inhaled Oxygen Concentration - - Weight - - Height - - Body Mass Index - - documented in this encounter Progress Notes * Myriam Moody R.N., [facility] - 11/26/2023 10:15 AM CDT PALLIATIVE CARE NURSING VISIT Patient Name: Tony Cota Age: 48 y.o. Reason for Palliative Medicine Nurse Visit: Auricular Acupressure for symptom management in the setting of complex medical illness. I introduced the patient to auricular acupressure as a healing modality for Problems with sleep andnausea management. Prior to initiating auricular acupressure, safety precautions were reviewed including skin integrity, and allergies. Patient verbalized understanding of rationale for auricular acup ressure for symptom management and verbal consent was obtained to proceed with the session. ASSESSMENT Pre acupressure assessment: It was a pleasure to meet Tony this morning, she was accompanied by her two college best friends. Tony remains grateful for the care our team has been providing and continues to find great benefit.Excitingly reports practicing progressive muscle relaxation at a recent PET scan and brain MR with great success compared to previous experiences. Continues to struggle with sleep, identifying this as a long standing issues. Falling asleep is most difficult as she is a night owl and at bed time is when her mind naturally relaxes causing racing thoughts. Currently working on daughter's high school graduation which is in the next couple of weeks. Tony is interested in focusing auricular therapy on sleep and nausea. Ear (s) used: bilateral Auricular protocol selected: Right ear: Sleep + 3 additional points on left ear for nausea. Acupoints used: Esophagus, Heart, Liver, Master Cerebral , Point Zero, Shenmen Spirit Mcloud, Spleen, and Stomach Device used: Titanium Ear Beads Number of beads placed: 8 Post acupressure assessment: Tolerated bead placement well. RECOMMENDATION/PLAN Follow up auricular acupressure and Reiki scheduled for 12/23. Encouraged utilization of Breathing into Sleep through phone thuan, Insight Timer at bedtime to assist with falling asleep. Stimulation instructions provided: Gentle finger pressure several times/day Advised devices should be removed in 3-6 days or if pain, soreness, swelling, pinching, redness, heat, or itching develop. Reviewed most common auricular acupressure risks including local skin irritation/discomfort, mild tenderness or pain at the application site, and itching. Patient verbalized understanding of the above. Auricular Acupressure Treatment Sheet [id number] were provided and reviewed with the patient. Visit and plan was discussed with DANIEL Leon R.N., CHPN Palliative Care Nurse [facility] documented in this encounter Plan of Treatment Upcoming Encounters Date Type Department Care Team (Late st Contact Info) Description 02/25/2024 10:00 AM CDT Clinical Communication Virtual Review in [address] [phone] 02/27/2024 7:30 AM CDT Appointment Department of Radiology, [facility] in [address] [phone] Zhane Granados APRN, C.N.P. [address] [place] [phone] 02/27/2024 8:45 AM CDT Clinical Support Department of Palliative Care in [address] [phone] Bereket Johnson APRN, C.N.P., D.N.P. [address] [place] [phone] 02/27/2024 9:45 AM CDT Clinical Support Department of Palliative Care in [address] [phone] Marija Olivas APRN, C.N.P., M.S.N. [address] [place] [phone] 02/27/2024 11:00 AM CDT Lab Department of Laboratory Medicine and Pathology, [facility], in [place], [place] [address] [place] [phone] Zhane Graandos APRN, C.N.P. [address] [place] [phone] 02/27/2024 1:00 PM CDT Office Visit Department of Oncology in [place], [place] [address] [place] [phone] Pérez Zuniga M.D., Ph.D. [address] [place] [phone] 02/27/2024 1:45 PM CDT Infusion Department of Oncology in [place], [place] [address] [place] [phone] Zhane Granados APRN, C.N.P. [address] [place] [phone] 03/17/2024 7:00 AM CDT Clinical Communication Virtual Review in [address] [phone] 03/19/2024 10:45 AM CDT Clinical Support Department of Palliative Care in [place], [place] [address] [place] [phone] Marija Olivas APRN, C.N.P., M.S.N. [address] [place] [phone] 03/19/2024 11:30 AM CDT Office Visit Department of Palliative Care in [place], [place] [address] [place] [phone] Valentine Kelsey M.D., M.S. [address] [place] [phone] 03/19/2024 11:40 AM CDT Lab Department of Laboratory Medicine and Pathology, [facility], in [place], [place] [address] [place] [phone] Zhane Granados APRN, C.N.P. [address] [place] [phone] 03/19/2024 1:40 PM CDT Office Visit Department of Oncology in [place], [place] [address] [place] [phone] Pérez Zuniga M.D., Ph.D. [address] [place] [phone] 03/19/2024 2:45 PM CDT Infusion Department of Oncology in [place], [place] [address] [place] [phone] Zhane Granados APRN, C.N.P. [address] [place] [phone] 03/24/2024 3:00 PM CDT Clinical Communication Virtual Review in [place], [place] 200 [place] [phone] 03/26/2024 7:45 AM CDT Appointment Department of Radiology, [facility], in [place], [place] [address] [place] [phone] Zhane Granados APRN, C.N.P. [address] [place] [phone] 03/26/2024 3:20 PM CDT Office Visit Department of Oncology in [place], [place] [address] [place] [phone] Pérez Zuniga M.D., Ph.D. [address] [place] [phone] documented as of this encounter Visit Diagnoses Diagnosis Palliative Care documented in this encounter Additional Health Concerns Infection Onset Date Last Indicated Resolved Time Protective Environment 06/04/2023 06/04/2023 documented as of this encounter Care Teams Log Marker Relationship Specialty Start Date End Date Elsewhere, Pcp PCP - General Family Medicine 06/17/23 documented as of this encounter
--- OUTSIDE RECORDS SUMMARY | 2024-02-21 15:09 | XMS_ITS | Encounter Summary ---
Author Organization [facility] Address [address] [place] [phone] Care Team Providers Care Scheduler Maintenance Name Role Phone Elsewhere, Pcp Primary Care Provider Unavailabl e Reason for Referral * Outpatient (Routine) - Closed Specialty Diagnoses / Procedures Referred By Contac t Referred To Contact Palliative Medicine Valentine Kelsey M.D., M.S. 200 [place] [phone] [facility] Referral ID Status Reason Start Date Expiration Date Visits Re quested Visits Authorized [id number] Closed 11/26/2023 05/27/2025 [address] Kelsey, possibly at 11:30, may need labs rescheduled Reason for Visit * Outpatient (Routine) - Closed Specialty Diagnoses / Procedures Referred By Contac t Referred To Contact Palliative Valentine Singh M.D., M.S. [address] [place] [phone] [facility] Referral ID Status Reason Start Date Expiration Date Visits Re quested Visits Authorized [id number] Closed 09/30/2023 03/31/2025 1 1 Encounter Details Date Type Department Care Team (Late st Contact Info) Description 11/26/2023 11:30 AM CDT Office Visit Department of Palliative Care in [place], [place] 200 [place] [phone] Valentine Kelsey M.D., M.S. 200 [place] [phone] Melanoma Trunk (HCC) (Primary Dx); Secondary Malignant Neoplasm Brain (HCC); Pain Cancer Associated; Palliative Care Social History Tobacco Use Types Packs/Day Years Used Date Smoking Tobacco: Never Passive Smoke Exposure: Never Smokeless Tobacco: Never Alcohol Use Standard Drinks/Week Comments Not Currently 0 (1 standard drink = 0.6 oz pur e alcohol) Occasional [facility] Utilities Answer Date Recorded In the [...] Sex Assigned at Female 05/31/2023 8:26 AM CONCRETE FORM SETTER Gender Identity Female 05/31/2023 8:26 AM CONCRETE FORM SETTER Sexual Orientation Straight 05/31/2023 8: 26 AM CONCRETE FORM SETTER documented as of this encounter Progress Notes * Valentine Kelsey M.D., M.S. 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 Interval History: Tony is accompanied today by two college friends both named Patria today. She was excited to awaken this morning and have them at her house and with her on the appointments today. Tony reports that she has been having increased pain including at her left arm/shoulder and is concerned this means her cancer has stopped responding to the current treatment. However, she has chosen not to review the released PET CT results yesterday. She recounts that when she reviewed her previous brain MRI, she was concerned with the progression. However, when she had the opportunity to discuss with Oncology, she was reassured that this was expected and not alarming. However, by this time,she felt that she had caused undo concern to her children. This time, she is determined not to do this. She then wondered why not doing this to herself was not a sufficient motivator; however, Tony was able to let this thought go as well. She identified that while reviewing the scan results feels like a type of control, it has in fact had the opposite result. She has been working on letting thoughts go if they are not helpful. She is hopeful that if her cancer improves that she could drive, which would be helpful with the kids' activities. However, verbalizes that her and her have been finding ways to manage the last many months without her driving and can continue to do so. ROS: As per HPI and patient reported data otherwise reviewed and non-contributory in the course of the current encounter. [place] [employer] Who completed this form?: Patient No Pain = 0 and Worst Pain = 10: 0 No Fatigue = 0 and Worst Fatigue = 10: 3 No Nausea = 0 and Worst Nausea = 10: 2 No Depression = 0 and Worst Depression = 10: 1 No Anxiety = 0 and Worst Anxiety = 10: 2 No Drowsiness = 0 and Worst Drowsiness = 10 : 2 No Shortness of Breath = 0 and Worst Shortness of Breath = 10: 0 Best Appetite = 0 and Worst Appetite = 10: 5 Best Feeling of Well Being = 0 [...] and Worst Spiritual Pain = 10: 1 Palliative Functional Assessment 90%- Full ambulation, Normal activity and work with some evidence of disease, Full self-care, Normal intake, Full level of consciousness OBJECTIVE PHYSICAL EXAM General: Alert, no acute distress Eyes: Conjunctiva clear, sclera non-icteric Mouth: Mucous membranes moist, no mucosal lesions. Lungs: No use of accessory muscles of respiration, non-labored breathing pattern. Abdomen: Non-distended Musculoskeletal: Normal gait. Neurologic: CN grossly intact, no myoclonus Psychiatric: Oriented X3, intact recent and remote memory, judgment and insight, congruent mood andaffect. DIAGNOSTICS CMP 11/25/23: Potassium, S 3.6 - 5.2 mmol/L 4.2 4.4 4.0 4.5 Sodium, S 135 - 145 mmol/L 137 135 137 137 Chloride, S 98 - 107 mmol/L 101 101 102 101 Bicarbonate, S 22 - 29 mmol/L 23 25 26 25 Anion Gap 7 - 15 13 9 9 11 BUN (Blood Urea Nitrogen), S 6 - 21 mg/dL 12 9 15 16 Creatinine 0.59 - 1.04 mg/dL 0.72 0.75 0.74 0.78 0.95 Estimated GFR (eGFR) >=60 mL/min/BSA >90 >90 CM >90 CM >90 CM 75 CM Comment: Estimated GFR calculated using the 2020 CKD_EPI creatinine equation. Calcium, Total, S 8.6 - 10.0 mg/dL 9.4 9.2 9.6 9.8 Glucose, S 70 - 140 mg/dL 98 107 108 94 Protein, Total, S 6.3 - 7.9 g/dL 7.3 7.5 7.4 7.6 6.2 Low 6.5 Albumin, S 3.5 - 5.0 g/dL 3.9 4.4 4.2 4.3 3.5 3.6 Aspartate Aminotransferase (AST), S 8 - 43 U/L 30 49 High 27 48 High 154 High 202 High Alkaline Phosphatase, S 35 - 104 U/L 209 High 159 High 168 High 321 High 396 High 471 High Alanine Aminotransferase (ALT), S 7 - 45 U/L 25 37 18 68 High 127 High 147 High Bilirubin, Total, S 0.0 - 1.2 mg/dL 0.3 0.5 0.2 0.4 1.3 High 2.2 High CBC 11/25/23: Hemoglobin 11.6 - 15.0 g/dL 11.8 11.1 Low 12.1 11.7 10.8 Low 8.2 Low 7.6 Low Hematocrit 35.5 - 44.9 % 37.1 35.0 Low 37.8 36.2 32.0 Low 26.3 Low 24.1 Low Erythrocytes 3.92 - 5.13 x10(12)/L 4.28 3.96 4.15 3.76 Low 3.33 Low R 2.62 Low R 2.49 Low MCV 78.2 - 97.9 fL 86.7 88.4 91.1 96.3 96.1 100.4 High 96.8 RBC Distrib Width 12.2 - 16.1 % 15.5 14.9 13.2 13.5 14.1 17.5 High 16.2 High Platelet Count 157 - 371 x10(9)/L 362 286 356 445 High 226 701 High 496 High Leukocytes 3.4 - 9.6 x10(9)/L 5.2 7.0 4.1 7.7 7.9 9.9 High 7.9 Neutrophils 1.56 - 6.45 x10(9)/L 2.96 5.29 2.03 3.73 6.54 High 5.27 4.72 Lymphocytes 0.95 - 3.07 x10(9)/L 1.73 1.02 1.41 3.18 High 1.14 3.81 High 1.98 Monocytes 0.26 - 0.81 x10(9)/L 0.45 0.60 0.48 0.58 0.14 Low 0.63 0.90 High Eosinophils 0.03 - 0.48 x10(9)/L 0.04 0.03 0.13 0.11 <0.03 0.10 0.22 Basophils 0.01 - 0.08 x10(9)/L 0.05 0.06 0.07 0.05 0.04 0.[address] 11/25/23: 1. Recurrent intensely FDG avid osseous metastases. 2. Multifocal FDG uptake along the periphery of the left adnexal cystic lesion is also suspicious for recurrent disease. 3. Mildly FDG avid left chest wall lesion is indeterminant, correlate with direct visual inspection. 4. Intracranial disease is better evaluated on recent MR brain. 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 I spent time exploring her emotions and coping strategies and processing today. Acknowledged and commended the amount of work she has been doing in noticing, acknowledging, and reframing her thoughtsand actions. Particularly commended how she noticed the effect her interpretation of scans has on herself and her family, the interpretation of control this has for her, how this interpretation has been incorrect, and how she is trusting to have a conversation with Oncology today. I also acknowledged the feelings and worry that comes along with the possibility the cancer is no longer responding to treatment and the need for self-una while growing emotionally and in these new coping skills. Tony verbalized appreciation for the validation and our clinic team. At this time, she does not feel that she needs changes to medications for her pain; she can notify us if this changes. Will follow-up in 1 month or sooner PRN. Thank you for the opportunity to see this patient. Patient has our contact information and understands to call with new/worsening symptoms or concerns. We will work alongside the primary outpatient team to address these issues. Palliative care outpatient clinic will continue to follow along. Total time spent was 50 minutes Valentine Kelsey M.D., M.S. documented in this encounter Plan of Treatment Upcoming Encounters Date Type Department Care Team (Late st Contact Info) Description 02/25/2024 10:00 AM CDT Clinical Communication Virtual Review in [address] [phone] 02/27/2024 7:30 AM CDT Appointment Department of Radiology, [facility] in [address] [phone] Zhane Granados APRN, C.N.P. [address] [place] [phone] 02/27/2024 8:45 AM CDT Clinical Support Department of Palliative Care in [address] [phone] Bereket Johnson APRN, C.N.P., D.N.P. [address] [place] [phone] 02/27/2024 9:45 AM CDT Clinical Support Department of Palliative Care in [address] [phone] Marija Olivas APRN, C.N.P., M.S.N. [address] [place] [phone] 02/27/2024 11:00 AM CDT Lab Department of Laboratory Medicine and Pathology, [facility], in [address] [phone] Zhane Granados APRN, C.N.P. [address] [place] [phone] 02/27/2024 1:00 PM CDT Office Visit Department of Oncology in [place], [place] [address] [place] [phone] Pérez Zuniga M.D., Ph.D. [address] [place] [phone] 02/27/2024 1:45 PM CDT Infusion Department of Oncology in [place], [place] [address] [place] [phone] Zhane Granados APRN, C.N.P. [address] [place] [phone] 03/17/2024 7:00 AM CDT Clinical Communication Virtual Review in [place], [place] 200 [place] [phone] 03/19/2024 10:45 AM CDT Clinical Support Department of Palliative Care in [place], [place] [address] [place] [phone] Marija Olivas APRN, C.N.P., M.S.N. [address] [place] [phone] 03/19/2024 11:30 AM CDT Office Visit Department of Palliative Care in [place], [place] [address] [place] [phone] Valentine Kelsey M.D., M.S. [address] [place] [phone] 03/19/2024 11:40 AM CDT Lab Department of Laboratory Medicine and Pathology, [facility], in [place], [place] [address] [place] [phone] Zhane Granados APRN, C.N.P. [address] [place] [phone] 03/19/2024 1:40 PM CDT Office Visit Department of Oncology in [place], [place] [address] [place] [phone] Pérez Zuniga M.D., Ph.D. [address] [place] [phone] 03/19/2024 2:45 PM CDT Infusion Department of Oncology in [place], [place] [address] [place] [phone] Zhane Granados APRN, C.N.P. [address] [place] [phone] 03/24/2024 3:00 PM CDT Clinical Communication Virtual Review in [place], [place] 200 [place] [phone] 03/26/2024 7:45 AM CDT Appointment Department of Radiology, [facility], in [place], [place] [address] [place] [phone] Zhane Granados APRN, C.N.P. [address] [place] [phone] 03/26/2024 3:20 PM CDT Office Visit Department of Oncology in [address] [phone] Pérez Zuniga M.D., Ph.D. [address] [place] [phone] Scheduled Referrals Name Type Priority Associated Diagnoses Order Schedule Palliative Care office visit (clinic) Outpatient Referral Routine Expected: 12/24/2023, Expires: 02/25/2025 documented as of this encounter Visit Diagnoses Diagnosis Melanoma Trunk (HCC)- Primary Secondary Malignant Neoplasm Brain (HCC) Pain Cancer Associated Palliative Care documented in this encounter Additional Health Concerns Infection Onset Date Last Indicated Resolved Time Protective Environment 06/04/2023 06/04/2023 documented as of this encounter Care Teams Scheduler Maintenance Relationship Specialty Start Date End Date Elsewhere, Pcp PCP - General Family Medicine 06/17/23 documented as of this encounter
--- OUTSIDE RECORDS SUMMARY | 2024-02-21 15:09 | XMS_ITS | Encounter Summary ---
Author Organization [facility] Address [address] [place] [address] Care Team Providers Care Cq Developer Name Role Phone Elsewhere, Pcp Primary Care Provider Unavailabl e Reason for Referral * Outpatient (Routine) - Closed Specialty Diagnoses / Procedures Referred By Contac t Referred To Contact Radiation Oncology Diagnoses Melanoma Trunk (HCC) Pérez Zuniga M.D., Ph.D. [address] [place] [phone] [facility] Referral ID Status Reason Start Date Expiration Date Visits Re quested Visits Authorized [id number] Closed 11/26/2023 05/27/2025 1 1 Reason for Visit * Outpatient (Routine) - Closed Specialty Diagnoses / Procedures Referred By Contsweetie t Referred To Contact Radiation Oncology Diagnoses Melanoma Trunk (HCC) Pérez Zuniga M.D., Ph.D. [address] [place] [phone] [facility] Referral ID Status Reason Start Date Expiration Date Visits Re quested Visits Authorized [id number] Closed 11/26/2023 05/27/2025 1 1 Encounter Details Date Type Department Care Team (Latest Contact Info) Description 11/27/2023 8:00 AM CDT - 11/27/2023 8:59 AM CDT Hospital Encounter Department of Radiation Oncology in [place], [place] [address] [place] [phone] Tara López M.D. [address] [place] [address] Secondary Malignant Neoplasm Bone (HCC) (Primary Dx); Melanoma Trunk (HCC) Social History Tobacco Use Types Packs/Day Years Used Date Smoking Tobacco: Never Passive Smoke Exposure: Never Smokeless Tobacco: Never Alcohol Use Standard Drinks/Week Comments Not Currently 0 (1 standard drink = 0.6 oz pur e alcohol) Occasional [facility] Utilities Answer Date Recorded In the past 12 months has th e [employer], gas, oil, or water [employer] threatened to shut off services in your [...] your living situation today? [facility] 07/10/2023 Sex and Gender Information Value Date Recorded Sex Assigned at Female 05/31/2023 8:26 AM LITERACY COORDINATOR Gender Identity Female 05/31/2023 8:26 AM LITERACY COORDINATOR Sexual Orientation Straight 05/31/2023 8: 26 AM LITERACY COORDINATOR documented as of this encounter Last Filed Vital Signs Vital Sign Reading Time Taken Comments Blood Pressure 118/80 11/27/2023 8:07 AM CDT Pulse 88 11/27/2023 8:07 AM CDT Temperature 36.3 ??C (97.4 ??F) 11/27/2023 8:07 AM CD T Respiratory Rate - - Oxygen Saturation - - Inhaled Oxygen Concentration - - Weight 80.1 kg (176 lb 9.6 oz) 11/27/2023 8:07 A M CDT Height - - Body Mass Index 33.09 11/26/2023 12:56 PM CDT documented in this encounter Discharge Instructions * Patient Instructions* Morenita Martínez P.A.-C., M.S. - 11/27/2023 8:00 AM CDT 50 documented in this encounter Medications at Time [...] mg total) by mouth daily. 60 tablet 11/04/2023 11/29/2023 dabrafenib (TAFINLAR) 75 mg capsule Take 2 [...] 11/05/2023 01/01/2024 documented as of this encounter Consult Notes * Morenita Martínez P.A.-Harsha., M.S. - 11/27/2023 8:00 AM CDT SUBJECTIVE REQUESTING PROVIDER Pérez Zuniga M.D., Ph.D. CHIEF COMPLAINT/REASON FOR CONSULT 1. Secondary Malignant Neoplasm Bone (HCC) 2. Melanoma Trunk (HCC) SUPERVISED BY: Tara López M.D. HISTORY OF PRESENT ILLNESS Mrs. Tony Cota is a 48-year-old female with metastatic malignant melanoma with bone metastases,who presents today for an opinion regarding the role of radiation therapy in the management of the patient's disease. Her oncologic history is as follows: Oncology [...] Critical Imaging MRI Left Femur [facility] Interpretation Several 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 The largest is seen proximally extending off of the proximal [id number]. This involves the intertrochanteric left femurextending distally [...] diaphysis, which extends off of the proximal txloq-ve-iitb. 05/09/2023 Critical Imaging Chest X-ray Impression: 1. Suspicious right lower lung mass measuring up to 4.1 cm with a possible left scapular lytic lesion. Recommend CT chest for better characterization. 05/13/2023 Biopsy/Pathology [facility] Pathology Review FINAL DIAGNOSIS Left femur mass, biopsy ([id number]; 05/13/2023): Metastatic melanoma, diffusely positive for BRAF [...] Critical Imaging CT Abdomen Pelvis [facility] Interpretation IMPRESSION: 1. No evidence of [...] Au. The patient was asymptomatic from her PERMANENT WAVER disease. Given the patient's numerous (at least 10 lesions), it was felt that consideration of LINAC radiotherapy would be a good option. Referral to Radiation Oncology in [place]. 10/25/2023 - 10/25/2023 Radiation Therapy SRS to [...] Details (Noted on 11/26/2023) Site: Bone Technique: No technique specified Goal: Palliative Planned Treatment Start Date: 12/04/2023 INTERVAL HISTORY: The patient was seen and examined today with Dr. López. The patient reports fatigue rated 5/10 in severity. She has been able to be more active recently. She reports tolerating systemic therapy well overall. She reports that her bone pain is overall decreased compared to the pain she had at initial diagnosis last fall. She reports constant, but manageable pain of the left shoulder, rated 2/10 in severity. She reports noticing this pain approximately 3-4 weeks ago. The pain increases with increased movement of the arm. She reports full left arm rangeof motion. She denies weakness, numbness, or tingling of the left arm. She reports pain that comes and goes of the left hip, distal left femur, and right femur. She rates these areas of pain as 1/10 in severity, with the pain being temporarily noticeable and then resolving. She denies weight bearing as a cause of the pain. She denies weakness, numbness, or tingling of the bilateral lower extremities. Her gait and ambulation are normal. She is not taking any pain medications. She has received previous brain SRS, as detailed above. REVIEW OF SYSTEMS Review of systems was negative except as documented above. PATIENT REPORTED SYMPTOM SCREEN: FATIGUE (Scale: 0 = no fatigue; 10 = worst fatigue you can imagine): 5 PAIN (Scale: 0 = no pain; 10 = worst pain you can imagine): 2 OVERALL QUALITY OF LIFE (Scale: 0 = as bad as can be; 10 = as good as can be): 7 OBJECTIVE BP 118/80 (BP Location: Right arm, Patient Position: Sitting, Cuff Size: Regular) Pulse 88 Temp36.3 ??C (Temporal) Wt 80.1 kg BMI 33.09 kg/m?? PHYSICAL EXAMINATION General: Patient is alert and oriented in no apparent distress. Lungs: Clear to auscultation bilaterally. Heart: Regular rate and rhythm. Extremities: Left humerus, left hip, and bilateral distal femurs are overall not focally tender to palpation. 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 We reviewed her recent PET-CT scan results and images. Dr. Zuniga and Dr. López have been in communication regardingthe patient's care. Dr. Zuniga has escalated the patient's therapy with the addition of Ipilimumab yesterday. He plans to continue the patient's current systemic therapy at this time and requested consideration of the addition of SBRT to the large bone lesions. We discussed the risks, benefits, and alternatives of radiotherapy in this setting. Dr. López offered stereotactic body radiation therapy (SBRT) to the FDG avid osseous lesions involving the left humerus, left pelvis, and bilateral femurs in 3 fractions to each site, delivered over 6 days. I discussed the logistics as well as the acute and chronic side effects of treatment in detail. Theacute side effects are common and include, but are not limited to, fatigue, radiation dermatitis, pain flare, and possible bowel frequency/urgency. Long-term side effects could include, but are not limited to, bone arthritis/fracture, myositis, and nerve damage. Her questions were answered to her verbalized satisfaction. We also discussed possible referral to Orthopedic Surgery for evaluation of the bone lesions from asurgical standpoint. At this time, Dr. Zuniga and the patient do not want to interrupt the patient's systemic drug therapy if possible. The patient plans to closely monitor her pain and will contact her providers if she experiences increased pain or pain with weight bearing. After discussion, the patient verbally stated that she would like to proceed with radiation treatment. She signed consent. She is scheduled for CT simulation today. Dr. López also met with the patient today, please see her attestation for details. The patient was provided with our contact information. She will contact us with questions or concerns. She verbally expressed her understanding of theplan. EDUCATION: Ready to learn, no apparent learning barriers were identified; learning preferences include listening. Explained diagnosis and treatment plan; patient expressed understanding of the content. CONSENT: Discussed the risks, benefits, alternatives, and the necessity of other members of the healthcare team participating in the procedure. All questions answered and consent given. I personally spent 50 minutes in care of the patient today. Time includes both non face to face andface to face patient care. Signed by: Morenita Martínez P.A.-C., M.S. 11/27/2023 9:39 AM CDT [facility] [address] [place] [address] Associated attestation - Tara López M.D. - 11/27/2023 12:38 PM CDT RADIATION ONCOLOGY CONSULT I saw and evaluated the patient and participated in the marcial portions of the service. I reviewed thedocumentation of Ms. Mroenita Martínez PA-C, MS and agree with the findings and plan. Please see Ms. Martínez's detailed note for the patient's initial presentation and work-up. Briefly, Ma. Cota is a very pleasant 48 year old female diagnosed with widely metastatic malignant melanoma BRAF V600E mutant (no known primary) this fall and started on Dabrafenib and Trametinib. She has had amixed response to treatment and had progression of her brain metastases and received SRS on October 25, 2023. She now presents with progression in several bony sites and Dr. Zuniga would like us to consider SBRT to multiple bony sites. I have independently reviewed her imaging, operative and pathology reports. On exam, she appears well. We discussed the findings above and below in this note with the patient and her and friend.We discussed her treatment alternatives including radiation vs adding SBRT while she is on her chemo/immunotherapy. We discussed whether or not we should hold her chemotherapy and after reviewing theliterature and discussing with Lolo and the patient, we have elected to continue with her chemotherapy. We discussed the rationale, risks, side effects and palliative goals of radiation therapy. We discussed the acute as well as detention risks, including, but not limited to fatigue, skin erythema, bone health, and risk of bone fracture in the future. We also discussed the risks of myositis or nerve injury with concurrent therapy. They understood and their questions were answered. She wished to proceed with treatment. We tentatively plan on delivering 3600 cGy in 3 fractions with SBRT starting next Monday, December 04, 2023. We plan on treating her left humerus, bilateral distal femurs and the left proximal femur. My thanks to Drs. Zuniga and Kyler for the opportunity to participate in this patient's care. EDUCATION Ready to learn, no apparent learning barriers were identified; learning preferences include listening. Explained diagnosis and treatment plan; patient expressed understanding of the content. CONSENT Discussed the risks, benefits, alternatives, and the necessity of other members of the healthcare team participating in the procedure. All questions answered and consent given. 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 11/27/2023 12:30 PM CDT Radiation Oncology [facility] [address] [place] [phone] documented in this encounter Plan of Treatment Upcoming Encounters Date Type Department Care Team (Late st Contact Info) Description 02/25/2024 10:00 AM CDT Clinical Communication Virtual Review in [place], [place] [address] [place] [phone] 02/27/2024 7:30 AM CDT Appointment Department of Radiology, [facility] in [place], [place] [address] [place] [phone] Zhane Granados APRN, C.N.P. [address] [place] [phone] 02/27/2024 8:45 AM CDT Clinical Support Department of Palliative Care in [place], [place] [address] [place] [phone] Bereket oJhnson APRN, C.N.P., D.N.P. [address] [place] [phone] 02/27/2024 9:45 AM CDT Clinical Support Department of Palliative Care in [place], [place] [address] [place] [phone] Marija Olivas APRN, C.N.P., M.S.N. [address] [place] [phone] 02/27/2024 11:00 AM CDT Lab Department of Laboratory Medicine and Pathology, [facility], in [place], [place] [address] [place] [phone] Zhane Granados APRN, C.N.P. [address] [place] [phone] 02/27/2024 1:00 PM CDT Office Visit Department of Oncology in [place], [place] [address] [place] [phone] Pérez Zuniga M.D., Ph.D. [address] [place] [phone] 02/27/2024 1:45 PM CDT Infusion Department of Oncology in [place], [place] [address] [place] [phone] Zhane Granados APRN, C.N.P. [address] [place] [phone] 03/17/2024 7:00 AM CDT Clinical Communication Virtual Review in [place], [place] [address] [place] [address] 03/19/2024 10:45 AM CDT Clinical Support Department of Palliative Care in [address] [phone] Marija Olivas APRN, C.N.P., M.S.N. [address] [place] [phone] 03/19/2024 11:30 AM CDT Office Visit Department of Palliative Care in [address] [phone] Valentine Kelsey M.D., M.S. [address] [place] [phone] 03/19/2024 11:40 AM CDT Lab Department of Laboratory Medicine and Pathology, [facility], in [address] [phone] Zhane Granados APRN, C.N.P. [address] [place] [phone] 03/19/2024 1:40 PM CDT Office Visit Department of Oncology in [place], [place] [address] [place] [phone] Pérez Zuniga M.D., Ph.D. [address] [place] [phone] 03/19/2024 2:45 PM CDT Infusion Department of Oncology in [place], [place] [address] [place] [phone] Zhane Granados APRN, C.N.P. [address] [place] [phone] 03/24/2024 3:00 PM CDT Clinical Communication Virtual Review in [place], [place] [address] [place] [phone] 03/26/2024 7:45 AM CDT Appointment Department of Radiology, [facility], in [place], [place] [address] [place] [phone] Zhane Granados APRN, C.N.P. [address] [place] [phone] 03/26/2024 3:20 PM CDT Office Visit Department of Oncology in [address] [phone] Pérez Zuniga M.D., Ph.D. [address] [place] [phone] Scheduled Referrals Name Type Priority Associated Diagnoses Order Schedule Radiation Oncology - Skin consult (clinic) Outpatient Referral Routine Melanoma Trunk (HCC) Once for 1 Occurrences starting 11/27/2023 until 11/27/2023 documented as of this encounter Visit Diagnoses Diagnosis Secondary Malignant Neoplasm Bone (HCC)- Primary Melanoma Trunk (HCC) documented in this encounter Additional Health Concerns Infection Onset Date Last Indicated Resolved Time Protective Environment 06/04/2023 06/04/2023 documented as of this encounter Care Teams Cq Developer Relationship Specialty Start Date End Date Elsewhere, Pcp PCP - General Family Medicine 06/17/23 documented as of this encounter
--- OUTSIDE RECORDS SUMMARY | 2024-02-21 15:09 | XMS_ITS | Encounter Summary ---
Author Organization [facility] Address [address] [place] [address] Care Team Providers Care Repairer Engine Production Name Role Phone Elsewhere, Pcp Primary Care Provider Unavailabl e Reason for Visit * Reason Comments Med Refill [facility] Encounter Details Date Type Department Care Team (Late st Contact Info) Description 11/29/2023 Refill Department of Oncology in [place], [place] [address] [place] [phone] Pérez Zuniga M.D., Ph.D. [address] [place] [phone] Med Refill ([facility] ) Social History Tobacco Use Types Packs/Day [...] Sex Assigned at Female 05/31/2023 8:26 AM VEGETABLE I FARMWORKER Gender Identity Female 05/31/2023 8:26 AM VEGETABLE I FARMWORKER Sexual Orientation Straight 05/31/2023 8: 26 AM VEGETABLE I FARMWORKER documented as of this encounter Plan of Treatment Upcoming Encounters Date Type Department Care Team (Late st Contact Info) Description 02/25/2024 10:00 AM CDT Clinical Communication Virtual Review in [place], [place] [address] [place] [address] 02/27/2024 7:30 AM CDT Appointment Department of Radiology, [facility] in [place], [place] [address] [place] [phone] Zhane Granados, GAIL, C.N.P. [address] [place] [phone] 02/27/2024 8:45 AM CDT Clinical Support Department of Palliative Care in [place], [place] [address] [place] [phone] Bereket Johnson APRN, Harsha.N.P., D.N.P. [address] [place] [phone] 02/27/2024 9:45 AM CDT Clinical Support Department of Palliative Care in [place], [place] [address] [place] [phone] Marija Olivas APRN, C.N.P., M.S.N. [address] [place] [phone] 02/27/2024 11:00 AM CDT Lab Department of Laboratory Medicine and Pathology, [facility] in [place], [place] [address] [place] [phone] Zhane Granados APRN, C.N.P. [address] [place] [phone] 02/27/2024 1:00 PM CDT Office Visit Department of Oncology in [place], [place] [address] [place] [phone] Pérez Zuniga M.D., Ph.D. [address] [place] [phone] 02/27/2024 1:45 PM CDT Infusion Department of Oncology in [place], [place] [address] [place] [phone] Zhane Granados APRN, C.N.P. [address] [place] [phone] 03/17/2024 7:00 AM CDT Clinical Communication Virtual Review in [place], [place] [address] [place] [address] 03/19/2024 10:45 AM CDT Clinical Support Department of Palliative Care in [place], [place] [address] [place] [phone] Marija Olivas APRN, C.N.P., M.S.N. [address] [place] [phone] 03/19/2024 11:30 AM CDT Office Visit Department of Palliative Care in [place], [place] [address] [place] [phone] Valentine Kelsey M.D., M.S. [address] [place] [phone] 03/19/2024 11:40 AM CDT Lab Department of Laboratory Medicine and Pathology, [facility] in [place], [place] [address] [place] [phone] Zhane Granados APRN, C.N.P. [address] [place] [phone] 03/19/2024 1:40 PM CDT Office Visit Department of Oncology in [place], [place] [address] [place] [phone] Pérez Zuniga M.D., Ph.D. [address] [place] [phone] 03/19/2024 2:45 PM CDT Infusion Department of Oncology in [place], [place] [address] [place] [phone] Zhane Granados APRN, C.N.P. [address] [place] [phone] 03/24/2024 3:00 PM CDT Clinical Communication Virtual Review in [place], [place] [address] [place] [phone] 03/26/2024 7:45 AM CDT Appointment Department of Radiology, [facility], in [place], [place] [address] [place] [address] Zhane Granados APRN, C.N.P. [address] [place] [phone] 03/26/2024 3:20 PM CDT Office Visit Department of Oncology in [place], [place] [address] [place] [phone] Pérez Zuniga M.D., Ph.D. [address] [place] [phone] documented as of this encounter Visit Diagnoses Not on filedocumented in this encounter Additional Health Concerns Infection Onset Date Last Indicated Resolved Time Protective Environment 06/04/2023 06/04/2023 documented as of this encounter Care Teams Repairer Engine Production Relationship Specialty Start Date End Date Elsewhere, Pcp PCP - General Family Medicine 06/17/23 documented as of this encounter
--- OUTSIDE RECORDS SUMMARY | 2024-02-21 15:09 | XMS_ITS | Encounter Summary ---
Author Organization [facility] Address [address] [place] [address] Care Team Providers Care Promotions Team Leader Name Role Phone Elsewhere, Pcp Primary Care Provider Unavailabl e Reason for Visit * Reason Onset Date Comments Order Request 11/26/2023 Encounter Details Date Type Department Care Team (Late st Contact Info) Description 11/26/2023 Clinical Communication Department of Oncology in [place], [place] [address] [place] [phone] Anahy Amezcua, R.N., O.C.N. [address] [place] [phone] Order Request Social History Tobacco Use Types Packs/Day Years Used Date Smoking Tobacco: Never Passive Smoke Exposure: Never Smokeless Tobacco: Never Alcohol Use Standard Drinks/Week Comments Not Currently 0 (1 standard drink = 0.6 oz pur e alcohol) Occasional [facility] Utilities Answer Date Recorded In the [...] your living situation today? I have a [facility] place to live 07/10/2023 Sex and Gender Information Value Date Recorded Sex Assigned at Female 05/31/2023 8:26 AM PLANT CYTOLOGIST Gender Identity Female 05/31/2023 8:26 AM PLANT CYTOLOGIST Sexual Orientation Straight 05/31/2023 8: 26 AM PLANT CYTOLOGIST documented as of this encounter Plan of Treatment Upcoming Encounters Date Type Department Care Team (Late st Contact Info) Description 02/25/2024 10:00 AM CDT Clinical Communication Virtual Review in [place], [place] 200 [place] [address] 02/27/2024 7:30 AM CDT Appointment Department of Radiology, [facility] in [place], [place] [address] [place] [phone] Zhane Granados APRN, C.N.P. [address] [place] [phone] 02/27/2024 8:45 AM CDT Clinical Support Department of Palliative Care in [place], [place] [address] [place] [phone] Bereket Johnson APRN, C.N.P., D.N.P. [address] [place] [phone] 02/27/2024 9:45 AM CDT Clinical Support Department of Palliative Care in [place], [place] [address] [place] [phone] Marija Olivas APRN, C.N.P., M.S.N. [address] [place] [phone] 02/27/2024 11:00 AM CDT Lab Department of Laboratory Medicine and Pathology, [facility] in [place], [place] [address] [place] [phone] Zhane Granados APRN, C.N.P. [address] [place] [phone] 02/27/2024 1:00 PM CDT Office Visit Department of Oncology in [place], [place] [address] [place] [phone] Pérez Zuniga M.D., Ph.D. [address] [place] [phone] 02/27/2024 1:45 PM CDT Infusion Department of Oncology in [place], [place] [address] [place] [phone] Zhane Granados APRN, C.N.P. [address] [place] [phone] 03/17/2024 7:00 AM CDT Clinical Communication Virtual Review in [place], [place] 200 [place] [address] 03/19/2024 10:45 AM CDT Clinical Support Department of Palliative Care in [place], [place] [address] [place] [phone] Marija Olivas APRN, C.N.P., M.S.N. [address] [place] [phone] 03/19/2024 11:30 AM CDT Office Visit Department of Palliative Care in [place], [place] [address] [place] [phone] Valentine Kelsey M.D., M.S. [address] [place] [phone] 03/19/2024 11:40 AM CDT Lab Department of Laboratory Medicine and Pathology, [facility] in [place], [place] [address] [place] [phone] Zhane Granados APRN, C.N.P. [address] [place] [phone] 03/19/2024 1:40 PM CDT Office Visit Department of Oncology in [address] [phone] Pérez Zuniga M.D., Ph.D. [address] [place] [phone] 03/19/2024 2:45 PM CDT Infusion Department of Oncology in [place], [place] [address] [place] [phone] Zhane Granados APRN, C.N.P. [address] [place] [phone] 03/24/2024 3:00 PM CDT Clinical Communication Virtual Review in [place], [place] 200 [place] [address] 03/26/2024 7:45 AM CDT Appointment Department of Radiology, [facility] in [place], [place] [address] [place] [phone] hZane Granados APRN, C.N.P. [address] [place] [phone] 03/26/2024 3:20 PM CDT Office Visit Department of Oncology in [place], [place] [address] [place] [phone] Pérez Zuniga M.D., Ph.D. [address] [place] [phone] documented as of this encounter Visit Diagnoses Not on filedocumented in this encounter Additional Health Concerns Infection Onset Date Last Indicated Resolved Time Protective Environment 06/04/2023 06/04/2023 documented as of this encounter Care Teams Promotions Team Leader Relationship Specialty Start Date End Date Elsewhere, Pcp PCP - General Family Medicine 06/17/23 documented as of this encounter
--- OUTSIDE RECORDS SUMMARY | 2024-02-21 15:09 | XMS_ITS | Encounter Summary ---
Author Organization [facility] Address [address] [place] [address] Care Team Providers Care Counter Help Name Role Phone Elsewhere, Pcp Primary Care Provider Unavailabl e Reason for Referral * Outpatient (Routine) - Authorized Specialty Diagnoses / Procedures Referred By Contac t Referred To Contact Anh Burnett M.D. 200 [place] [address] [facility] Referral ID Status Reason Start Date Expiration Date V isits Requested Visits Authorized [id number] Authorized 11/29/2023 05/30/2025 [address] Lee if able in 3-4 months, if not ok to open it to [facility] or other clinics Reason for Visit * Outpatient (Routine) - Closed Specialty Diagnoses / Procedures Referred By Contac t Referred To Contact Anh Burnett M.D. 200 [place] [address] [facility] Referral ID Status Reason Start Date Expiration Date Visits Re quested Visits Authorized [id number] Closed 07/17/2023 07/16/2026 1 1 Encounter Details Date Type Department Care Team ([facility] st Contact Info) Description 11/29/2023 2:40 PM CDT Office Visit Department of Dermatology in [place], [place] [address] [place] [address] Anh Lee M.D. [address] [place] [address] Nevi Multiple (Primary Dx); Melanoma Lower Limb Left (HCC); Screening Examination Skin Cancer; Angioma Graves; Keratosis Seborrheic; Rosacea Discharge Disposition: Home or Self Care Social History Tobacco Use Types Packs/Day Years Used Date Smoking Tobacco: Never Passive Smoke Exposure: Never Smokeless Tobacco: Never Alcohol Use Standard Drinks/Week Comments Not Currently 0 (1 standard drink = 0.6 oz pur e alcohol) Occasional [facility] Utilities Answer Date Recorded In the past 12 months has e [employer], gas, oil, or water [employer] threatened to shut off services in [...] your living situation today? I have a [facility] place to live 07/10/2023 Sex and Gender Information Value Date Recorded Sex Assigned at Female 05/31/2023 8:26 AM GARMENT FINISHER Gender Identity Female 05/31/2023 8:26 AM GARMENT FINISHER Sexual Orientation Straight 05/31/2023 8: 26 AM GARMENT FINISHER documented as of this encounter Progress Notes * Anh Lee M.D. 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 She is followed closely by Oncology and is undergoingimmunotherapy. Please see my previous note and oncology notes for details. Today, she wonders about a bump on her left cheek that has been present for quite some time. There is a mole on her mid upper back that we were considering biopsied at last appointment, but took photographs and will follow up today. She has not aware of any other changing pigmented lesions. She also wonders about treatment for rosacea. OBJECTIVE PHYSICAL EXAM Detailed Exam: General: Awake, alert, in no acute distress, and with appropriate affect. Eyes: No scleral injection or icterus. No eyelid abnormalities. Cardio: No lower extremity edema. Skin: I have examined the scalp, face, neck, chest, abdomen, back, bilateral upper, extremities, lower extremities, palms, soles, and buttocks. I examined the scar on her left leg. No evidence of cutaneous metastases of melanoma in this region, or elsewhere on exam. She has multiple uniformly pigmented brown macules and papules including on the mid upper back, unchanged from prior photos, consistent with nevi. She has a 1 mm bright red papule on her left cheek consistent with an angioma. She has dilated blood vessels on both central cheeks/mid face. Lymph: No cervical, supraclavicular, axillary, or inguinal lymphadenopathy. ASSESSMENT / PLAN #1 Skin cancer screening exam #2 Metastatic melanoma, unknown primary #3 Multiple nevi No new lesions worrisome for skin cancer on today's exam. We will plan to see her back in 3-4 months for next full body skin cancer screening exam visit, to be coordinated with Oncology follow up. Ifshe notices anything changing or worrisome, we would be happy to see her sooner. #4 Angioma #5 Seborrheic keratoses Benign. Reassurance provided. #6 Erythematotelangiectatic rosacea Discussed use of cosmetic cover up (Dermablend), oxymetazoline, or pulsed dye laser. She will try Dermablend for now and let me know if she wishes to pursue pulsed dye laser in the future. It was a pleasure to see Ms. Cota in clinic today. documented in this encounter Plan of Treatment Upcoming Encounters Date Type Department Care Team (Late st Contact Info) Description 02/25/2024 10:00 AM CDT Clinical Communication Virtual Review in [address] [phone] 02/27/2024 7:30 AM CDT Appointment Department of Radiology, [facility] in [address] [phone] Zhnae Granados APRN, C.N.P. [address] [place] [phone] 02/27/2024 8:45 AM CDT Clinical Support Department of Palliative Care in [address] [phone] Bereket Johnson APRN, C.N.P., D.N.P. [address] [place] [phone] 02/27/2024 9:45 AM CDT Clinical Support Department of Palliative Care in [address] [phone] Marija Olivas APRN, C.N.P., M.S.N. [address] [place] [phone] 02/27/2024 11:00 AM CDT Lab Department of Laboratory Medicine and Pathology, [facility], in [place], [place] [address] [place] [phone] Zhane Granados APRN, C.N.P. [address] [place] [phone] 02/27/2024 1:00 PM CDT Office Visit Department of Oncology in [place], [place] [address] [place] [phone] Pérez Zuniga M.D., Ph.D. [address] [place] [phone] 02/27/2024 1:45 PM CDT Infusion Department of Oncology in [place], [place] [address] [place] [phone] Zhane Granados APRN, C.N.P. [address] [place] [phone] 03/17/2024 7:00 AM CDT Clinical Communication Virtual Review in [place], [place] 200 [place] [address] 03/19/2024 10:45 AM CDT Clinical Support Department of Palliative Care in [address] [phone] Marija Olivas APRN, C.NSimi., M.S.N. [address] [place] [phone] 03/19/2024 11:30 AM CDT Office Visit Department of Palliative Care in [place], [place] [address] [place] [phone] Valentine Kelsey M.D., M.S. [address] [place] [phone] 03/19/2024 11:40 AM CDT Lab Department of Laboratory Medicine and Pathology, [facility] in [place], [place] [address] [place] [phone] Zhane Granados APRN, C.N.P. [address] [place] [phone] 03/19/2024 1:40 PM CDT Office Visit Department of Oncology in [place], [place] [address] [place] [phone] Pérez Zuniga M.D., Ph.D. [address] [place] [phone] 03/19/2024 2:45 PM CDT Infusion Department of Oncology in [place], [place] [address] [place] [phone] Zhane Granados APRN, C.N.P. [address] [place] [phone] 03/24/2024 3:00 PM CDT Clinical Communication Virtual Review in [place], [place] 200 [place] [address] 03/26/2024 7:45 AM CDT Appointment Department of Radiology, [facility], in [place], [place] [address] [place] [phone] Zhane Granados APRN, C.N.P. [address] [place] [phone] 03/26/2024 3:20 PM CDT Office Visit Department of Oncology in [address] [phone] Pérez Zuniga M.D., Ph.D. 200 [place] [address] Scheduled Referrals Name Type Priority Associated Diagnoses Order Schedule Dermatology office visit (clinic) Outpatient Referral Routine Expected: 02/29/2024 (Approximate), Expires: 02/28/2025 documented as of this encounter Visit Diagnoses Diagnosis Nevi Multiple- Primary Melanoma Lower Limb Left (HCC) Screening Examination Skin Cancer Angioma Graves Keratosis Seborrheic Rosacea documented in this encounter Additional Health Concerns Infection Onset Date Last Indicated Resolved Time Protective Environment 06/04/2023 06/04/2023 documented as of this encounter Care Teams Counter Help Relationship Specialty Start Date End Date Elsewhere, Pcp PCP - General Family Medicine 06/17/23 documented as of this encounter
--- OUTSIDE RECORDS SUMMARY | 2024-02-21 15:09 | XMS_ITS | Encounter Summary ---
Author Organization [facility] Address 200 [place] [address] Care Team Providers Care Die Finisher Name Role Phone Elsewhere, Pcp Primary Care Provider Unavailabl e Reason for Referral * Radiation Therapy (Routine) - Closed Specialty Diagnoses / Procedures Referred By Contac t Referred To Contact Diagnoses Melanoma Trunk (HCC) Secondary Malignant Neoplasm Bone (HCC) Procedures Initial Rad Onc Treatment Planning CT Simulation Tara López M.D. 200 [place] [address] [facility] Region Referral ID Status Reason Start Date Expiration Date Visits Re quested Visits Authorized [id number] Closed 11/26/2023 11/25/2024 1 1 Reason for Visit * Radiation Therapy (Routine) - Closed Specialty Diagnoses / Procedures Referred By Contac braden Referred To Contact Diagnoses Melanoma Trunk (HCC) Secondary Malignant Neoplasm Bone (HCC) Procedures Initial Rad Onc Treatment Planning CT Simulation Tara López M.D. 200 [place] [address] [facility] Region Referral ID Status Reason Start Date Expiration Date Visits Re quested Visits Authorized [id number] Closed 11/26/2023 11/25/2024 1 1 Encounter Details Date Type Department Care Team (Latest Contact Info) Description 11/27/2023 9:00 AM CDT - 11/27/2023 12:49 PM CDT Hospital Encounter Department of Radiation Oncology in [place], [place] [address] [place] [phone] Tara López M.D. [address] [place] [address] Melanoma Trunk (HCC); Secondary Malignant Neoplasm Bone (HCC) Social History Tobacco Use Types Packs/Day Years Used Date Smoking Tobacco: Never Passive Smoke Exposure: Never Smokeless Tobacco: Never Alcohol Use Standard Drinks/Week Comments Not Currently 0 (1 standard drink = 0.6 oz pur e alcohol) Occasional [facility] Utilities Answer Date Recorded In the past 12 months has [employer], gas, oil, or water [employer] threatened to shut off services in your [...] Sex Assigned at Female 05/31/2023 8:26 AM PUBLIC RELATIONS ACCOUNT EXECUTIVE Gender Identity Female 05/31/2023 8:26 AM PUBLIC RELATIONS ACCOUNT EXECUTIVE Sexual Orientation Straight 05/31/2023 8: 26 AM PUBLIC RELATIONS ACCOUNT EXECUTIVE documented as of this encounter Medications at [...] 11/05/2023 01/01/2024 documented as of this encounter Procedure Notes * Naida Mayberry, RTT - 11/27/2023 9:00 AM CDTAssociated Order(s): Initial Rad Onc Treatment Planning CT Simulation Pre-Procedure Diagnose(s): Melanoma Trunk (HCC); Secondary Malignant Neoplasm Bone (HCC) Post-Procedure Diagnose(s): Melanoma Trunk (HCC); Secondary Malignant Neoplasm Bone (HCC) Initial Rad [...] placed to facilitate marking of isocenter. Area scanned:Neck, Chest, Pelvis, Upper Extremity, and Lower Extremity Contrast used for the simulation procedure: None Patient position:head first supine, arms up, and feet first supine Custom immobilization: Vac-bennett Motion management: None Bolus: [...] imaging was appropriate and completed without incident. Die Finisher use:No Associated attestation - Tara López M.D. - 11/27/2023 12:49 PM CDT I was present during all critical and marcial portions of the procedure(s) and immediately available [facility] services the entire duration. See note for details. documented in this encounter Plan of Treatment Upcoming Encounters Date Type Department Care Team (Late st Contact Info) Description 02/25/2024 10:00 AM CDT Clinical Communication Virtual Review in [place], [place] 200 [place] [address] 02/27/2024 7:30 AM CDT Appointment Department of Radiology, [facility] in [place], [place] [address] [place] [phone] Zhane Granados APRN, C.N.P. [address] [place] [phone] 02/27/2024 8:45 AM CDT Clinical Support Department of Palliative Care in [place], [place] [address] [place] [phone] Bereket Johnson APRN, C.N.P., D.N.P. [address] [place] [phone] 02/27/2024 9:45 AM CDT Clinical Support Department of Palliative Care in [place], [place] [address] [place] [phone] Marija Olivas APRN, C.N.P., M.S.N. [address] [place] [phone] 02/27/2024 11:00 AM CDT Lab Department of Laboratory Medicine and Pathology, [facility] in [place], [place] [address] [place] [phone] Zhane Granados APRN, C.N.P. [address] [place] [phone] 02/27/2024 1:00 PM CDT Office Visit Department of Oncology in [place], [place] [address] [place] [phone] Pérez Zuniga M.D., Ph.D. [address] [place] [phone] 02/27/2024 1:45 PM CDT Infusion Department of Oncology in [place], [place] [address] [place] [phone] Zhane Granados APRN, C.N.P. [address] [place] [phone] 03/17/2024 7:00 AM CDT Clinical Communication Virtual Review in [place], [place] 200 [place] [address] 03/19/2024 10:45 AM CDT Clinical Support Department of Palliative Care in [address] [phone] Marija Olivas APRN, C.N.P., M.S.N. [address] [place] [phone] 03/19/2024 11:30 AM CDT Office Visit Department of Palliative Care in [address] [phone] Valentine Kelsey M.D., M.S. [address] [place] [phone] 03/19/2024 11:40 AM CDT Lab Department of Laboratory Medicine and Pathology, [facility], in [place], [place] [address] [place] [phone] Zhane Granados APRN, C.N.P. [address] [place] [phone] 03/19/2024 1:40 PM CDT Office Visit Department of Oncology in [address] [address] Pérez Zuniga M.D., Ph.D. [address] [place] [phone] 03/19/2024 2:45 PM CDT Infusion Department of Oncology in [place], [place] [address] [place] [phone] Zhane Granados APRN, C.N.P. [address] [place] [phone] 03/24/2024 3:00 PM CDT Clinical Communication Virtual Review in [place], [place] 200 [place] [phone] 03/26/2024 7:45 AM CDT Appointment Department of Radiology, [facility], in [address] [phone] Zhane Granados APRN, C.N.P. [address] [place] [phone] 03/26/2024 3:20 PM CDT Office Visit Department of Oncology in [address] [phone] Pérez Zuniga M.D., Ph.D. [address] [place] [phone] documented as of this encounter Procedures Procedure Name Priority Date/Time Associated Diagnosis Comments INITIAL RAD ONC TREATMENT PLANNING CT SIMULATION Routine 11/27/2023 9:00 AM CDT Melanoma Trunk (HCC) Secondary Malignant Neoplasm Bone (HCC) documented in this encounter Results * Initial Rad Onc Treatment Planning CT Simulation (11/27/2023 9:00 AM CDT) Narrative MAHESH COCHRAN - 11/27/2023 9:00 AM CDT Naida Mayberry, RTT ? 11/27/2023 10:04 AM Initial Rad Onc Treatment Planning CT Simulation Performed by: Tara López M.D. Authorized by: Tara López M.D. ?? Tara López M.D. RADIATION ONCOLOG Y ORDERABLES MAHESH COCHRAN documented in this encounter Visit Diagnoses Diagnosis Melanoma Trunk (HCC) Secondary Malignant Neoplasm Bone (HCC) documented in this encounter Additional Health Concerns Infection Onset Date Last Indicated Resolved Time Protective Environment 06/04/2023 06/04/2023 documented as of this encounter Care Teams Die Finisher Relationship Specialty Start Date End Date Elsewhere, Pcp PCP - General Family Medicine 06/17/23 documented as of this encounter
--- OUTSIDE RECORDS SUMMARY | 2024-02-21 15:09 | XMS_ITS | Encounter Summary ---
Author Organization [facility] Address [address] [place] [phone] Care Team Providers Care Mainstreaming Facilitator Name Role Phone Elsewhere, Pcp Primary Care Provider Unavailabl e Reason for Visit * Episode Based Medications (Routine) - Authorized Specialty Diagnoses / Procedures Referred By Contac t Referred To Contact Diagnoses 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) Procedures MS NIVOLUMAB INJ MS IPILIMUMAB INJ 1 MG x Pérez Zuniga M.D., Ph.D. [address] [place] [phone] Rst Onc Rogo [address] [place] [phone] Referral ID Status Reason Start Date Expiration Date V isits Requested Visits Authorized [id number] Authorized 11/26/2023 11/25/2024 99 99 Encounter Details Date Type Department Care Team (Late st Contact Info) Description 11/26/2023 1:45 PM CDT Infusion Department of Oncology in [place], [place] [address] [place] [phone] Pérez Zuniga M.D., Ph.D. [address] [place] [phone] Secondary Malignant Neoplasm Bone (HCC) (Primary Dx); Melanoma Trunk (HCC); Secondary Malignant Neoplasm Brain (HCC) Social History Tobacco Use Types Packs/Day Years Used Date Smoking Tobacco: Never Passive Smoke Exposure: Never Smokeless Tobacco: Never Alcohol Use Standard Drinks/Week Comments Not Currently 0 (1 standard drink = 0.6 oz pur e alcohol) Occasional [facility] Utilities Answer Date Recorded In the [...] Sex Assigned at Female 05/31/2023 8:26 AM CASER Gender Identity Female 05/31/2023 8:26 AM CASER Sexual Orientation Straight 05/31/2023 8: 26 AM CASER documented as of this encounter Plan of Treatment Upcoming Encounters Date Type Department Care Team (Late st Contact Info) Description 02/25/2024 10:00 AM CDT Clinical Communication Virtual Review in [place], [place] 200 [place] [address] 02/27/2024 7:30 AM CDT Appointment Department of Radiology, [facility] in [place], [place] [address] [place] [phone] Zhane Granados APRN, C.N.P. [address] [place] [phone] 02/27/2024 8:45 AM CDT Clinical Support Department of Palliative Care in [place], [place] [address] [place] [phone] Bereket Johnson APRN, C.N.P., D.N.P. [address] [place] [phone] 02/27/2024 9:45 AM CDT Clinical Support Department of Palliative Care in [place], [place] [address] [place] [phone] Marija Olivas APRN, C.N.P., M.S.N. [address] [place] [phone] 02/27/2024 11:00 AM CDT Lab Department of Laboratory Medicine and Pathology, [facility] in [place], [place] [address] [place] [phone] Zhane Granados APRN, C.N.P. [address] [place] [phone] 02/27/2024 1:00 PM CDT Office Visit Department of Oncology in [place], [place] [address] [place] [phone] Pérez Zuniga M.D., Ph.D. [address] [place] [phone] 02/27/2024 1:45 PM CDT Infusion Department of Oncology in [place], [place] [address] [place] [phone] Zhane Granados APRN, C.N.P. [address] [place] [phone] 03/17/2024 7:00 AM CDT Clinical Communication Virtual Review in [place], [place] 200 [place] [address] 03/19/2024 10:45 AM CDT Clinical Support Department of Palliative Care in [place], [place] [address] [place] [phone] Marija Olivas APRN, C.N.P., M.S.N. [address] [place] [phone] 03/19/2024 11:30 AM CDT Office Visit Department of Palliative Care in [place], [place] [address] [place] [phone] Valentine Kelsey M.D., M.S. [address] [place] [phone] 03/19/2024 11:40 AM CDT Lab Department of Laboratory Medicine and Pathology, [facility], in [place], [place] [address] [place] [phone] Zhane Granados APRN, C.N.P. [address] [place] [phone] 03/19/2024 1:40 PM CDT Office Visit Department of Oncology in [place], [place] [address] [place] [phone] Pérez Zuniga M.D., Ph.D. [address] [place] [phone] 03/19/2024 2:45 PM CDT Infusion Department of Oncology in [place], [place] [address] [place] [phone] Zhane Granados APRN, C.N.P. [address] [place] [phone] 03/24/2024 3:00 PM CDT Clinical Communication Virtual Review in [place], [place] 200 [place] [phone] 03/26/2024 7:45 AM CDT Appointment Department of Radiology, [facility], in [address] [phone] Zhane Granados APRN, C.N.P. [address] [place] [phone] 03/26/2024 3:20 PM CDT Office Visit Department of Oncology in [address] [phone] Pérez Zuniga M.D., Ph.D. [address] [place] [phone] documented as of this encounter Visit Diagnoses [...] mL/hr, Administer over 30 Minutes, Once, On Sat11/26/23 at 1530, For 1 dose, Do not shake. Administer via [id number]-[id number] in-line filter. Do not co-administer other drugs through the same infusion line. Flush after each dose. Administer after Nivolumab. Do not shake. Use low protein binding in-line filter. New Bag 11/26/2023 3:57 PM CDT 250 mg 320 mL/hr nivolumab 80 mg in NaCl 0.9% 66 mL IVPB (OPDIVO) 80 mg (rounded from 81 mg = 1 mg/kg ? 81 kg Treatment plan Measured weight), intravenous, at 132 mL/hr, Administer over 30 Minutes, Once, On Sat11/26/23 at 1500, For 1 dose, Do not co-administer other drugs through the same infusion line. Give via 0.2 or 0.22 micron in-line filter. Do not shake. Use low protein binding in-line filter. New Bag 11/26/2023 3:19 PM CDT 80 mg 132 mL/ hr sodium chloride 0.9 % injection 10 mL 10 mL, intravenous, As needed, line care, Starting on Sat11/26/23 at 1438, Prior to blood sampling, post blood transfusion, or post blood sampling. Given 11/26/2023 4:29 PM CDT 20 mL Given 11/26/2023 3:42 PM CDT 20 mL documented in this encounter Additional Health Concerns Infection Onset Date Last Indicated Resolved Time Protective Environment 06/04/2023 06/04/2023 documented as of this encounter Care Teams Mainstreaming Facilitator Relationship Specialty Start Date End Date Elsewhere, Pcp PCP - General Family Medicine 06/17/23 documented as of this encounter
--- OUTSIDE RECORDS SUMMARY | 2024-02-21 15:09 | XMS_ITS | Encounter Summary ---
Author Organization [facility] Address [address] [place] [phone] Care Team Providers Care Stenographer Print Shop Name Role Phone Elsewhere, Pcp Primary Care Provider Unavailabl e Reason for Visit * Reason Onset Date Comments Appt Request 11/26/2023 Reschedule 11/26/2023 Encounter Details Date Type Department Care Team (Latest Contact Info) Description 11/26/2023 Clinical Communication Department of Oncology in [place], [place] [address] [place] [phone] Pérez Zuniga M.D., Ph.D. [address] [place] [phone] Appt Request; Reschedule Social History Tobacco Use Types Packs/Day Years Used Date Smoking Tobacco: Never Passive Smoke Exposure: Never Smokeless Tobacco: Never Alcohol Use Standard Drinks/Week Comments Not Currently 0 (1 standard drink = 0.6 oz pur e alcohol) Occasional C Utilities Answer Date Recorded In the past 12 months has [employer], gas, oil, or water [employer] threatened to shut off services in your [...] your living situation today? I have a [facility] place to live 07/10/2023 Sex and Gender Information Value Date Recorded Sex Assigned at Female 05/31/2023 8:26 AM RADIO PROGRAM CHECKER Gender Identity Female 05/31/2023 8:26 AM RADIO PROGRAM CHECKER Sexual Orientation Straight 05/31/2023 8: 26 AM RADIO PROGRAM CHECKER documented as of this encounter Plan of Treatment Upcoming Encounters Date Type Department Care Team (Late st Contact Info) Description 02/25/2024 10:00 AM CDT Clinical Communication Virtual Review in [place], [place] 200 [place] [address] 02/27/2024 7:30 AM CDT Appointment Department of Radiology, [facility], in [place], [place] [address] [place] [phone] Zhane Granados APRN, C.N.P. [address] [place] [phone] 02/27/2024 8:45 AM CDT Clinical Support Department of Palliative Care in [place], [place] [address] [place] [phone] Bereket Johnson APRN, C.N.P., D.N.P. [address] [place] [phone] 02/27/2024 9:45 AM CDT Clinical Support Department of Palliative Care in [place], [place] [address] [place] [phone] Marija Olivas APRN, C.N.P., M.S.N. [address] [place] [phone] 02/27/2024 11:00 AM CDT Lab Department of Laboratory Medicine and Pathology, [facility] in [address] [phone] Zhane Granados APRN, C.N.P. [address] [place] [phone] 02/27/2024 1:00 PM CDT Office Visit Department of Oncology in [address] [phone] Pérez Zuniga M.D., Ph.D. [address] [place] [phone] 02/27/2024 1:45 PM CDT Infusion Department of Oncology in [address] [phone] Zhane Granados APRN, C.N.P. [address] [place] [phone] 03/17/2024 7:00 AM CDT Clinical Communication Virtual Review in [place], [place] 200 [place] [address] 03/19/2024 10:45 AM CDT Clinical Support Department of Palliative Care in [address] [phone] Marija Olivas APRN, C.N.P., M.S.N. [address] [place] [phone] 03/19/2024 11:30 AM CDT Office Visit Department of Palliative Care in [address] [phone] Valentine Kelsey M.D., M.S. [address] [place] [phone] 03/19/2024 11:40 AM CDT Lab Department of Laboratory Medicine and Pathology, [facility] in [address] [phone] Zhane Granados APRN, C.N.P. [address] [place] [phone] 03/19/2024 1:40 PM CDT Office Visit Department of Oncology in [address] [phone] Pérez Zuniga M.D., Ph.D. [address] [place] [phone] 03/19/2024 2:45 PM CDT Infusion Department of Oncology in [address] [phone] Zhane Granados APRN, C.N.P. [address] [place] [phone] 03/24/2024 3:00 PM CDT Clinical Communication Virtual Review in [address] [phone] 03/26/2024 7:45 AM CDT Appointment Department of Radiology, [facility], in [place], [place] [address] [place] [address] Zhane Granados APRN, C.N.P. [address] [place] [phone] 03/26/2024 3:20 PM CDT Office Visit Department of Oncology in [place], [place] [address] [place] [phone] Pérez Zuniga M.D., Ph.D. [address] [place] [phone] documented as of this encounter Visit Diagnoses Not on filedocumented in this encounter Additional Health Concerns Infection Onset Date Last Indicated Resolved Time Protective Environment 06/04/2023 06/04/2023 documented as of this encounter Care Teams Stenographer Print Shop Relationship Specialty Start Date End Date Elsewhere, Pcp PCP - General Family Medicine 06/17/23 documented as of this encounter
--- OUTSIDE RECORDS SUMMARY | 2024-02-21 15:10 | XMS_ITS | Encounter Summary ---
Author Organization [facility] Address [address] [place] [address] Care Team Providers Care Campground Caretaker Name Role Phone Elsewhere, Pcp Primary Care Provider Unavailabl e Reason for Visit * Reason Comments Med Refill Encounter Details Date Type Department Care Team (Late st Contact Info) Description 09/18/2023 Refill [facility] [address] [place] [phone] Pérez Zuniga M.D., Ph.D. [address] [place] [address] Med Refill Social History Tobacco Use Types Packs/Day Years Used Date Smoking Tobacco: Never Passive Smoke Exposure: Never Smokeless Tobacco: Never Alcohol Use Standard Drinks/Week Comments Not Currently 6 (1 standard drink = 0.6 oz pur e alcohol) Occasional C Utilities Answer Date Recorded In the past 12 months has [employer] electric, gas, oil, or water company [...] living situation today? I have a [facility] place to live 07/10/2023 Sex and Gender Information Value Date Recorded Sex Assigned at Female 05/31/2023 8:26 AM PAPER CUTTER OPERATOR Gender Identity Female 05/31/2023 8:26 AM PAPER CUTTER OPERATOR Sexual Orientation Straight 05/31/2023 8: 26 AM PAPER CUTTER OPERATOR documented as of this encounter Plan of Treatment Upcoming Encounters Date Type Department Care Team (Late st Contact Info) Description 02/25/2024 10:00 AM CDT Clinical Communication Virtual Review in [place], [place] 200 [place] [address] 02/27/2024 7:30 AM CDT Appointment Department of Radiology, [facility], in [place], [place] [address] [place] [phone] Zhane Granados APRN, C.N.P. [address] [place] [phone] 02/27/2024 8:45 AM CDT Clinical Support Department of Palliative Care in [place], [place] [address] [place] [phone] Bereket Johnson APRN C.N.P., D.N.P. [address] [place] [phone] 02/27/2024 9:45 AM CDT Clinical Support Department of Palliative Care in [place], [place] [address] [place] [phone] Marija Olivas APRN, Harsha.N.P., M.S.N. [address] [place] [phone] 02/27/2024 11:00 AM CDT Lab Department of Laboratory Medicine and Pathology, [facility] in [place], [place] [address] [place] [phone] Zhane Granados APRN, C.N.P. [address] [place] [phone] 02/27/2024 1:00 PM CDT Office Visit Department of Oncology in [address] [phone] Pérez Zuniga M.D., Ph.D. [address] [place] [phone] 02/27/2024 1:45 PM CDT Infusion Department of Oncology in [place], [place] [address] [place] [phone] Zhane Granados APRN, C.N.P. [address] [place] [phone] 03/17/2024 7:00 AM CDT Clinical Communication Virtual Review in [place], [place] 200 [place] [address] 03/19/2024 10:45 AM CDT Clinical Support Department of Palliative Care in [place], [place] [address] [place] [phone] Marija Olivas APRN, Harsha.N.P., M.S.N. [address] [place] [phone] 03/19/2024 11:30 AM CDT Office Visit Department of Palliative Care in [place], [place] [address] [place] [phone] Valentine Kelsey M.D., M.S. [address] [place] [phone] 03/19/2024 11:40 AM CDT Lab Department of Laboratory Medicine and Pathology, [facility] in [address] [phone] Zhane Granados APRN, C.N.P. [address] [place] [phone] 03/19/2024 1:40 PM CDT Office Visit Department of Oncology in [address] [address] Pérez Zuniga M.D., Ph.D. [address] [place] [phone] 03/19/2024 2:45 PM CDT Infusion Department of Oncology in [address] [phone] Zhane Granados APRN, C.N.P. [address] [place] [phone] 03/24/2024 3:00 PM CDT Clinical Communication Virtual Review in [place], [place] 200 [place] [address] 03/26/2024 7:45 AM CDT Appointment Department of Radiology, [facility] in [place], [place] [address] [place] [address] Zhane Granados APRN, C.N.P. [address] [place] [phone] 03/26/2024 3:20 PM CDT Office Visit Department of Oncology in [place], [place] [address] [place] [phone] Pérez Zuniga M.D., Ph.D. [address] [place] [phone] documented as of this encounter Visit Diagnoses Not on filedocumented in this encounter Additional Health Concerns Infection Onset Date Last Indicated Resolved Time Protective Environment 06/04/2023 06/04/2023 documented as of this encounter Care Teams Campground Caretaker Relationship Specialty Start Date End Date Elsewhere, Pcp PCP - General Family Medicine 06/17/23 documented as of this encounter
--- OUTSIDE RECORDS SUMMARY | 2024-02-21 15:10 | XMS_ITS | Encounter Summary ---
Author Organization [facility] Address [address] [place] [address] Care Team Providers Care Medical Transcription Name Role Phone Elsewhere, Pcp Primary Care Provider Unavailabl e Reason for Visit * Reason Onset Date Comments sx fever/chills 10/01/2023 Encounter Details Date Type Department Care Team (Latest Contact Info) Description 10/01/2023 Clinical Communication Department of Oncology in [place], [place] [address] [place] [phone] Anahy Amezcua, R.N., O.C.N. [address] [place] [address] sx fever/chills Social History Tobacco Use Types Packs/Day Years [...] Sex Assigned at Female 05/31/2023 8:26 AM POLISHER HAND Gender Identity Female 05/31/2023 8:26 AM POLISHER HAND Sexual Orientation Straight 05/31/2023 8: 26 AM POLISHER HAND documented as of this encounter Miscellaneous Notes * Telephone Encounter - Mona Perez RSantoshNSantosh - 10/04/2023 10:32 AM CDT Information Discussed Spoke with Tony to check in on how she is doing from the beginning of the week. She states she is continuing Dabrafenib 150 mg twice a day, Trametinib daily, Colchicine 1.2 mg daily, and dexamethasone 1 mg every 12 hours. She reports that she is experiencing some fatigue, and her temperature is staying between 100- 101.5 F. Her GI discomfort is slightly better. If her symptoms get worse she will let us know. PLAN Update Dr. Zuniga Disposition/Recommendation: recommended continue engagement in self-management activities Information/Education: patient/caller able to teach back Caller agreeable to plan of care: yes The following references were used: nursing clinical judgement * Telephone Encounter - Anahy Amezcua R.N., O.C.N. - 10/01/2023 9:50 AM CDT SUBJECTIVE CHIEF COMPLAINT / REASON FOR CALL sx fever/chills ASSESSMENT I called and spoke with Ms. Cota. She reports that she developed a temperature of 101.3?? last evening. She states that she did take 1 500 mg Tylenol which brought this temperature down. She states that she has not had any further fevers. She is currently on full-dose dabrafenib and trametinib andreceived her 1st nivolumab infusion yesterday. She states that per prior agreement with Dr. Zuniga, she is to continue on her dabrafenib and trametinib unless her fever reaches 102. Ms. Cota also reports that she has occasional stomach discomfort. She states that this is not unusual for her. I have asked her to keep an eye on this and let us know if it would worsen. PLAN Update Dr. Zuniga Disposition/Recommendation: recommended continue engagement in self-management activities. Information/Education: patient/caller able to teach back. Caller agreeable to plan of care: yes. The following references were used: nursing clinical judgement. documented in this encounter Plan of Treatment Upcoming Encounters Date Type Department Care Team (Late st Contact Info) Description 02/25/2024 10:00 AM CDT Clinical Communication Virtual Review in [place], [place] [address] [place] [address] 02/27/2024 7:30 AM CDT Appointment Department of Radiology, [facility] in [place], [place] [address] [place] [phone] Zhane Granados APRN, C.N.P. [address] [place] [phone] 02/27/2024 8:45 AM CDT Clinical Support Department of Palliative Care in [place], [place] [address] [place] [phone] Bereket Johnson APRN, C.N.P., D.N.P. [address] [place] [phone] 02/27/2024 9:45 AM CDT Clinical Support Department of Palliative Care in [place], [place] [address] [place] [phone] Marija Olivas APRN, Harsha.N.P., M.S.N. [address] [place] [phone] 02/27/2024 11:00 AM CDT Lab Department of Laboratory Medicine and Pathology, [facility] in [address] [phone] Zhane Granados APRN, C.N.P. [address] [place] [phone] 02/27/2024 1:00 PM CDT Office Visit Department of Oncology in [address] [phone] Pérez Zuniga M.D., Ph.D. [address] [place] [phone] 02/27/2024 1:45 PM CDT Infusion Department of Oncology in [address] [phone] Zhane Granados APRN, C.N.P. [address] [place] [phone] 03/17/2024 7:00 AM CDT Clinical Communication Virtual Review in [place], [place] 200 [place] [address] 03/19/2024 10:45 AM CDT Clinical Support Department of Palliative Care in [place], [place] [address] [place] [phone] Marija Olivas APRN, C.N.P., M.S.N. [address] [place] [phone] 03/19/2024 11:30 AM CDT Office Visit Department of Palliative Care in [place], [place] [address] [place] [phone] Valentine Kelsey M.D., M.S. [address] [place] [phone] 03/19/2024 11:40 AM CDT Lab Department of Laboratory Medicine and Pathology, [facility] in [address] [phone] Zhane Granados APRN, C.N.P. [address] [place] [phone] 03/19/2024 1:40 PM CDT Office Visit Department of Oncology in [address] [phone] Pérez Zuniga M.D., Ph.D. [address] [place] [phone] 03/19/2024 2:45 PM CDT Infusion Department of Oncology in [address] [phone] Zhane Granados APRN, C.N.P. [address] [place] [phone] 03/24/2024 3:00 PM CDT Clinical Communication Virtual Review in [place], [place] 200 [place] [address] 03/26/2024 7:45 AM CDT Appointment Department of Radiology, [facility], in [address] [phone] Zhane Granados APRN, C.N.P. [address] [place] [phone] 03/26/2024 3:20 PM CDT Office Visit Department of Oncology in [address] [phone] Pérez Zuniga M.D., Ph.D. [address] [place] [phone] documented as of this encounter Visit Diagnoses Not on filedocumented in this encounter Additional Health Concerns Infection Onset Date Last Indicated Resolved Time Protective Environment 06/04/2023 06/04/2023 documented as of this encounter Care Teams Medical Transcription Relationship Specialty Start Date End Date Elsewhere, Pcp PCP - General Family Medicine 06/17/23 documented as of this encounter
--- OUTSIDE RECORDS SUMMARY | 2024-02-21 15:10 | XMS_ITS | Encounter Summary ---
Author Organization [facility] Address [address] [place] [address] Care Team Providers Care Studio Coordinator Name Role Phone Elsewhere, Pcp Primary [...] your living situation today? [facility] 07/10/2023 Sex and Gender Information Value Date Recorded Sex Assigned at Female 05/31/2023 8:26 AM SYSTEM DEVELOPMENT MANAGER Gender Identity Female 05/31/2023 8:26 AM SYSTEM DEVELOPMENT MANAGER Sexual Orientation Straight 05/31/2023 8: 26 AM SYSTEM DEVELOPMENT MANAGER documented as of this encounter Plan of Treatment Upcoming Encounters Date Type Department Care Team (Late st Contact Info) Description 02/25/2024 10:00 AM CDT Clinical Communication Virtual Review in [place], [place] 200 [place] [address] 02/27/2024 7:30 AM CDT Appointment Department of Radiology, [facility] in [place], [place] [address] [place] [phone] Zhane Granados APRN, C.N.P. [address] [place] [phone] 02/27/2024 8:45 AM CDT Clinical Support Department of Palliative Care in [place], [place] [address] [place] [phone] Bereket Johnson APRN, C.N.P., D.N.P. [address] [place] [phone] 02/27/2024 9:45 AM CDT Clinical Support Department of Palliative Care in [address] [address] Marija Olivas APRN, C.N.Dina., M.S.N. [address] [place] [phone] 02/27/2024 11:00 AM CDT Lab Department of Laboratory Medicine and Pathology, [facility], in [address] [address] Zhane Granados APRN, C.N.P. [address] [place] [phone] 02/27/2024 1:00 PM CDT Office Visit Department of Oncology in [address] [address] Pérez Zuniga M.D., Ph.D. [address] [place] [phone] 02/27/2024 1:45 PM CDT Infusion Department of Oncology in [address] [address] Zhane Granados APRN, C.N.P. [address] [place] [phone] 03/17/2024 7:00 AM CDT Clinical Communication Virtual Review in [address] [phone] 03/19/2024 10:45 AM CDT Clinical Support Department of Palliative Care in [address] [address] Marija Olivas APRN, C.N.P., M.S.N. [address] [place] [phone] 03/19/2024 11:30 AM CDT Office Visit Department of Palliative Care in [place], [place] [address] [place] [phone] Valentine Kelsey M.D., M.S. [address] [place] [phone] 03/19/2024 11:40 AM CDT Lab Department of Laboratory Medicine and Pathology, [facility] in [place], [place] [address] [place] [phone] Zhane [place]ados APRN, C.N.P. [address] [place] [phone] 03/19/2024 1:40 PM CDT Office Visit Department of Oncology in [address] [address] Pérez Zuniga M.D., Ph.D. [address] [place] [phone] 03/19/2024 2:45 PM CDT Infusion Department of Oncology in [address] [address] Zhane [place] APRN, C.N.P. [address] [place] [phone] 03/24/2024 3:00 PM CDT Clinical Communication Virtual Review in [place], [place] 200 [place] [address] 03/26/2024 7:45 AM CDT Appointment Department of Radiology, [facility], in [address] [phone] Zhane [place] APRN, C.N.P. [address] [place] [phone] 03/26/2024 3:20 PM CDT Office Visit Department of Oncology in [place], [place] [address] [place] [address] Pérez Zuniga M.D., Ph.D. [address] [place] [address] documented as of this encounter Visit Diagnoses Not on filedocumented in this encounter Additional Health Concerns Infection Onset Date Last Indicated Resolved Time Protective Environment 06/04/2023 06/04/2023 documented as of this encounter Care Teams Studio Coordinator Relationship Specialty Start Date End Date Elsewhere, Pcp PCP - General Family Medicine 06/17/23 documented as of this encounter
--- OUTSIDE RECORDS SUMMARY | 2024-02-21 15:10 | XMS_ITS | Encounter Summary ---
Author Organization [facility] Address [address] [place] [address] Care Team Providers Care Biostatistics Professor Name Role Phone Elsewhere, Pcp Primary Care Provider Unavailabl e Reason for Visit * Reason Onset Date Comments Pre-visit Intake 11/22/2023 Encounter Details Date Type Department Care Team (Latest Contact Info) Description 11/22/2023 12:15 PM CDT Clinical Communication Virtual Review in [address] [phone] Pre-visit Intake Social History Tobacco Use Types Packs/Day Years Used Date Smoking Tobacco: Never Passive Smoke Exposure: Never Smokeless Tobacco: Never Tobacco Cessation:Counseling Given: Not Answered Alcohol Use Standard Drinks/Week Comments Not Currently 0 (1 standard drink = 0.6 oz pur e alcohol) Occasional C Utilities Answer Date Recorded In the past 12 months has [employer], gas, oil, or water [employer] threatened to shut off services in your [...] Assigned at Female 05/31/2023 8:26 AM CLINICAL DATA MANAGER Gender Identity Female 05/31/2023 8:26 AM CLINICAL DATA MANAGER Sexual Orientation Straight 05/31/2023 8: 26 AM CLINICAL DATA MANAGER documented as of this encounter Plan of Treatment Upcoming Encounters Date Type Department Care Team (Late st Contact Info) Description 02/25/2024 10:00 AM CDT Clinical Communication Virtual Review in [place], [place] [address] [place] [address] 02/27/2024 7:30 AM CDT Appointment Department of Radiology, [facility] in [place], [place] [address] [place] [phone] Zhane [place] APRN, C.N.P. [address] [place] [phone] 02/27/2024 8:45 AM CDT Clinical Support Department of Palliative Care in [place], [place] [address] [place] [phone] Bereket Johnson APRN, C.N.P., D.N.P. [address] [place] [phone] 02/27/2024 9:45 AM CDT Clinical Support Department of Palliative Care in [place], [place] [address] [place] [phone] Marija Olivas APRN, C.N.P., M.S.N. [address] [place] [phone] 02/27/2024 11:00 AM CDT Lab Department of Laboratory Medicine and Pathology, [facility], in [place], [place] [address] [place] [phone] Zhane [place] APRN, C.N.P. [address] [place] [phone] 02/27/2024 1:00 PM CDT Office Visit Department of Oncology in [address] [phone] Pérez Zuniga M.D., Ph.D. [address] [place] [phone] 02/27/2024 1:45 PM CDT Infusion Department of Oncology in [address] [address] Zhane [place] APRN, C.N.P. [address] [place] [phone] 03/17/2024 7:00 AM CDT Clinical Communication Virtual Review in [place], [place] 200 [place] [address] 03/19/2024 10:45 AM CDT Clinical Support Department of Palliative Care in [place], [place] [address] [place] [phone] Marija Olivas APRN, C.N.Dina., M.S.N. [address] [place] [phone] 03/19/2024 11:30 AM CDT Office Visit Department of Palliative Care in [place], [place] [address] [place] [phone] Valentine Kelsey M.D., M.S. [address] [place] [phone] 03/19/2024 11:40 AM CDT Lab Department of Laboratory Medicine and Pathology, [facility] in [address] [address] Zhane [place] APRN, C.N.P. [address] [place] [phone] 03/19/2024 1:40 PM CDT Office Visit Department of Oncology in [address] [phone] Pérez Zuniga M.D., Ph.D. [address] [place] [phone] 03/19/2024 2:45 PM CDT Infusion Department of Oncology in [address] [address] Zhane [place] APRN, C.N.P. [address] [place] [phone] 03/24/2024 3:00 PM CDT Clinical Communication Virtual Review in [place], [place] 200 [place] [address] 03/26/2024 7:45 AM CDT Appointment Department of Radiology, [facility], in [address] [address] Zhane [place] APRN, C.N.P. [address] [place] [address] 03/26/2024 3:20 PM CDT Office Visit Department of Oncology in [place], [place] [address] [place] [address] Pérez Zuniga M.D., Ph.D. [address] [place] [address] documented as of this encounter Visit Diagnoses Not on filedocumented in this encounter Additional Health Concerns Infection Onset Date Last Indicated Resolved Time Protective Environment 06/04/2023 06/04/2023 documented as of this encounter Care Teams Biostatistics Professor Relationship Specialty Start Date End Date Elsewhere, Pcp PCP - General Family Medicine 06/17/23 documented as of this encounter
--- OUTSIDE RECORDS SUMMARY | 2024-02-21 15:10 | XMS_ITS | Encounter Summary ---
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 200 [place] [address] [facility] Referral ID Status Reason Start Date Expiration Date Visits Re quested Visits Authorized [id number] Closed 10/29/2023 10/28/2024 1 1 Encounter Details Date Type Department Care Team (Latest Contact Info) Description 11/25/2023 1:06 PM CDT - 11/25/2023 11:59 PM CDT Hospital Encounter Department of Radiology, [facility], in [place], [place] [address] [place] [address] Pérez Zuniga M.D., Ph.D. [address] [place] [address] Melanoma Trunk (HCC); Secondary Malignant Neoplasm Brain (HCC); Secondary Malignant Neoplasm Bone (HCC) Discharge Disposition: Home or Self Care Social History Tobacco Use Types Packs/Day Years Used Date Smoking Tobacco: Never Passive Smoke Exposure: Never Smokeless Tobacco: Never Alcohol Use Standard Drinks/Week Comments Not Currently 0 (1 standard drink = 0.6 oz pur e alcohol) Occasional [employer] Utilities Answer Date Recorded In the past 12 months has [employer], gas, oil, or water [employer] threatened to shut off services in your [...] your living situation today? 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 [address] [place] [phone] 02/27/2024 8:45 AM CDT Clinical Support Department of Palliative Care in [address] [phone] Bereket Johnson APRN, C.N.P., D.N.P. [address] [place] [phone] 02/27/2024 9:45 AM CDT Clinical Support Department of Palliative Care in [address] [phone] Marija Olivas APRN, C.N.P., M.S.N. [address] [place] [phone] 02/27/2024 11:00 AM CDT Lab Department of Laboratory Medicine and Pathology, [facility] in [address] [address] Zhane [place] APRN, C.N.P. [address] [place] [phone] 02/27/2024 1:00 PM CDT Office Visit Department of Oncology in [place], [place] [address] [place] [phone] Pérez Zuniga M.D., Ph.D. [address] [place] [phone] 02/27/2024 1:45 PM CDT Infusion Department of Oncology in [place], [place] [address] [place] [phone] Zhane [place]ados APRN, C.N.P. [address] [place] [phone] 03/17/2024 7:00 AM CDT Clinical Communication Virtual Review in [place], [place] 200 [place] [address] 03/19/2024 10:45 AM CDT Clinical Support Department of Palliative Care in [address] [address] Marija Olivas APRN, C.N.P., M.S.N. [address] [place] [phone] 03/19/2024 11:30 AM CDT Office Visit Department of Palliative Care in [place], [place] [address] [place] [phone] Valentine Kelsey M.D., M.S. [address] [place] [phone] 03/19/2024 11:40 AM CDT Lab Department of Laboratory Medicine and Pathology, [facility], in [place], [place] [address] [place] [phone] Zhane [place]ados APRN, C.N.P. [address] [place] [phone] 03/19/2024 1:40 PM CDT Office Visit Department of Oncology in [address] [phone] Pérez Zuniga M.D., Ph.D. [address] [place] [phone] 03/19/2024 2:45 PM CDT Infusion Department of Oncology in [place], [place] [address] [place] [phone] Zhane [place] APRN, C.N.P. [address] [place] [phone] 03/24/2024 3:00 PM CDT Clinical Communication Virtual Review in [place], [place] 200 [place] [address] 03/26/2024 7:45 AM CDT Appointment Department of Radiology, [facility], in [address] [phone] Zhnae [place]ados APRN, C.N.P. [address] [place] [phone] 03/26/2024 3:20 PM CDT Office Visit Department of Oncology in [address] [phone] Pérez Zuniga M.D., Ph.D. 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 Pérez Zuniga M.D., Ph.D. 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) documented in this encounter Administered Medications Inactive Administered Medications - up to 3 most recent administrations Medication Order MAR Action Action Date Dose Rate Site fludeoxyglucose F 18 injection PENITENTIARY (FDG F-18) 4.5-16.5 millicurie, intravenous, Once, On 11/25/23 at 1430, For 1 dose, Imaging Protocol Orders Given 11/25/2023 2:03 PM CDT 9.9 millicuries documented in this encounter Additional Health Concerns Infection Onset Date Last Indicated Resolved Time Protective Environment 06/04/2023 06/04/2023 documented as of this encounter Care Teams Manager Mission Relationship Specialty Start Date End Date Elsewhere, Pcp PCP - General Family Medicine 06/17/23 documented as of this encounter
--- OUTSIDE RECORDS SUMMARY | 2024-02-21 15:10 | XMS_ITS | Encounter Summary ---
Author Organization [facility] Address [address] [place] [address] Care Team Providers Care Senior Sql Database Developer Name Role Phone Elsewhere, Pcp Primary Care Provider Unavailabl e Reason for Visit * Auth/Cert (Routine) Specialty Diagnoses / Procedures Referred By Contac t Referred To Contact Diagnoses Sepsis (HCC) Multiple Myeloma Not Having Achieved Remission (HCC) Fever, syncopal Procedures ADMIT TO INPATIENT Referral ID Status Reason Start Date Expiration Date Visits Re quested Visits Authorized [id number] 1 1 Encounter Details Date Type Department Care Team (Late st Contact Info) Description 08/09/2023 Hospital Encounter [facility] Bed Planning Felicity Vargas M.D. [address] [place] [phone] Jhonathan Gray M.D., Ph.D. [address] [place] [phone] Social History Tobacco Use Types Packs/Day Years [...] living situation today? 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 Gender Identity Female 05/31/2023 8:26 AM CRIMINAL JUSTICE DEPARTMENT CHAIR Sexual Orientation Straight 05/31/2023 8: 26 AM CRIMINAL JUSTICE DEPARTMENT CHAIR documented as of this encounter Plan of Treatment Upcoming Encounters Date Type Department Care Team (Late st Contact Info) Description 02/25/2024 10:00 AM CDT Clinical Communication Virtual Review in [place], [place] [address] [place] [address] 02/27/2024 7:30 AM CDT Appointment Department of Radiology, [facility] in [place], [place] [address] [place] [address] Zhane Granados APRN, C.N.P. [address] [place] [phone] 02/27/2024 8:45 AM CDT Clinical Support Department of Palliative Care in [place], [place] [address] [place] [address] Bereket Johnson APRN, C.N.P., D.N.P. [address] [place] [phone] 02/27/2024 9:45 AM CDT Clinical Support Department of Palliative Care in [place], [place] [address] [place] [phone] Marija Olivas APRN, C.N.P., M.S.N. [address] [place] [phone] 02/27/2024 11:00 AM CDT Lab Department of Laboratory Medicine and Pathology, [facility], in [place], [place] [address] [place] [phone] Zhane Granados APRN, C.N.P. [address] [place] [phone] 02/27/2024 1:00 PM CDT Office Visit Department of Oncology in [place], [place] [address] [place] [phone] Pérez Zuniga M.D., Ph.D. [address] [place] [phone] 02/27/2024 1:45 PM CDT Infusion Department of Oncology in [place], [place] [address] [place] [phone] Zhane Granados APRN, C.N.P. [address] [place] [phone] 03/17/2024 7:00 AM CDT Clinical Communication Virtual Review in [place], [place] 200 [place] [phone] 03/19/2024 10:45 AM CDT Clinical Support Department of Palliative Care in [place], [place] [address] [place] [phone] Marija Olivas APRN, C.N.P., M.S.N. [address] [place] [phone] 03/19/2024 11:30 AM CDT Office Visit Department of Palliative Care in [address] [address] Valentnie Kelsey M.D., M.S. [address] [place] [phone] 03/19/2024 11:40 AM CDT Lab Department of Laboratory Medicine and Pathology, [facility], in [address] [address] Zhane Granados APRN, C.N.P. [address] [place] [phone] 03/19/2024 1:40 PM CDT Office Visit Department of Oncology in [address] [address] Pérez Zuniga M.D., Ph.D. [address] [place] [phone] 03/19/2024 2:45 PM CDT Infusion Department of Oncology in [address] [phone] Zhane Granados APRN, C.N.P. [address] [place] [phone] 03/24/2024 3:00 PM CDT Clinical Communication Virtual Review in [place], [place] [address] [place] [address] 03/26/2024 7:45 AM CDT Appointment Department of Radiology, [facility], in [place], [place] [address] [place] [phone] Zhane Granados APRN, C.N.P. [address] [place] [phone] 03/26/2024 3:20 PM CDT Office Visit Department of Oncology in [place], [place] [address] [place] [phone] Pérez Zuniga M.D., Ph.D. [address] [place] [phone] documented as of this encounter Visit Diagnoses Not on filedocumented in this encounter Admitting Diagnoses Diagnosis Sepsis (HCC) documented in this encounter Additional Health Concerns Infection Onset Date Last Indicated Resolved Time Protective Environment 06/04/2023 06/04/2023 documented as of this encounter Care Teams Senior Sql Database Developer Relationship Specialty Start Date End Date Elsewhere, Pcp PCP - General Family Medicine 06/17/23 documented as of this encounter
--- OUTSIDE RECORDS SUMMARY | 2024-02-21 15:10 | XMS_ITS | Clinical Summary ---
Author Organization [employer] [facility] [employer] Address [place], [place] [address] Care Team Providers Care Microcomputer Technician Name Role Phone Ondina Chávez MD Primary Care Provider [phone] Allergies No known active allergies Medications Medication Sig Dispensed Refills Start Date End Date Status omeprazole 20 mg tabletIndications:Naus ea and vomiting, unspecified vomiting type Take 1 Tablet (20 mg) by mouth once daily before a meal. 30 Tablet 05/08/2023 Active ondansetron (ZOFRAN ODT) 4 mg disintegrating tabletIndications:Naus ea and vomiting, unspecified vomiting type Place 1 Tablet (4 mg) on the tongue every 8 hours if needed for Nausea/Vomiting . 30 Tablet 05/08/2023 Active diazePAM (VALIUM) 5 mg tabletIndications:Inso mnia due to psychological stress Take 1 Tablet (5 mg) by mouth at bedtime if needed for Anxiety or Sleep (Do not use with oxycodone). 10 Tablet 05/10/2023 Active dabrafenib (TAFINLAR) 75 mg capsule Take 75 mg by mouth two times daily. 08/08/2023 Active trametinib 2 mg tab Take 2 mg by mouth. 07/02/2023 Active hydrOXYzine HCL (ATARAX) 25 mg tabletIndications:Inso mnia due to psychological stress 25-50 mg at bedtime. 12.5 every 6 hours as needed for anxiety 180 Tablet 3 12/27/2023 Active hydrOXYzine HCL (ATARAX) 25 mg tabletIndications:Inso mnia due to psychological stress 25-50 mg at bedtime. 12.5 every 6 hours as needed for anxiety 60 Tablet 01/02/2024 Active Active Problems Problem Noted Date Diagnosed Date HTN (hypertension) 08/13/2023 Metastatic melanoma 05/31/2023 Insomnia due to psychological stress 05/31/2023 Bone tumor 05/31/2023 Metastatic malignant melanoma 05/22/2023 Encounters Date Type Department Care Team Description 01/29/2024 2:45 PM CDT Orders Only [facility] [address] [place] [address] [place] Outside Order (Ordered by Pérez Zuniga) 01/29/2024 Travel 01/10/2024 Telephone [facility] [address] [place] [address] Ondina Chávez MD Colorectal Cancer Screening (Positive Cologuard) 01/07/2024 1:20 PM CDT Ancillary Procedure [facility] [place] [address] [address] 01/07/2024 1:00 PM CDT Orders Only [facility] [place] [address] [address] [place] Outside Order (Ordered by Argantealdenise Efrain) 01/07/2024 Travel 01/01/2024 Refill [facility] [place] [address] [place] [address] [address] Ondina Chávez MD Refill Request (Hydroxyzine Hcl) 12/31/2023 12:45 PM CDT Orders Only [facility] [place] [address] [place] [address] [address] [place], [place] Lab 12/31/2023 Travel 12/27/2023 9:35 AM CDT Office Visit [facility] [place] [address] [place] [address] [address] Ondina Chávez MD Physical (physical 48 years); Blood Pressure (BP all over the place); Cancer (stage 4 metastatic melanoma/) 12/27/2023 Travel 12/18/2023 11:15 AM CDT Orders Only [facility] [place] [address] [address] [place] Outside Order (Ordered by Argantealdenise Efrain) 12/18/2023 Travel 12/11/2023 10:30 AM CDT Orders Only [facility] [address] [place] [address] Lab, [place] Lab 12/11/2023 Orders Only [facility] Scanner 1 scan: (1-Ord) INCOMING RECORDS-LABS, [facility], 12/11/2023 12/11/2023 Travel 12/06/2023 9:10 AM CDT Orders Only [facility] [address] [place] [address] Lab, [place] [facility] 12/06/2023 Travel 11/26/2023 Orders Only [facility] [address] [facility] [place] [address] Ondina Chávez MD Outside Order (Ordered by Pérez Zuniga) from Last 3 Months Immunizations Name Administration Dates Next Due AMB Influenza, IIV4 PF (=>6 mos Flulaval,Fluzone Fluarix)(Flu Clinic Only) 05/05/2018 COVID-19 vaccine (Amplidata NTzoidu 30mcg/0.3mL) 12YO+ BIVALENT PF, MDV 03/28/2022 Influenza Virus, Unspecified 06/26/2010, 05/03/2008,04/23/2007,2005,04/16/2005 Influenza, IIV3 (Age >=3 years) 03/14/2011 Influenza, IIV4 04/09/2022,,04/11/2020,2018,04/19/2017,04/16/2016,04/06/2014 Influenza,LAIV4 Live Intrana shubham (Flumist) 04/12/2015,04/07/2013,03/14/2012,2008 Td (Age >=7 Years) 07/28/2003,02/15/1994 Tdap 04/13/2021,06/26/2010 Family History Medical History Relation Name Comments Hypertension Brother 1 Good Health Father Hyperlipidemia Mother Hypertension Mother Cancer-breast No Family History Cancer-ovarian No Family History Relation Name Status Comments [...] Outcome GA Total Labor Labor//3rd Weight Sex Type Anes PTL Claudia A1 A5 Name Clin Term Term Term Last Filed Vital Signs Vital Sign Reading Time Taken Comments Blood Pressure 121/84 12/27/2023 9:44 AM CDT Pulse 90 12/27/2023 9:44 AM CDT Temperature - - Respiratory Rate - - Oxygen Saturation 99% 12/27/2023 9:44 AM CDT Inhaled Oxygen Concentration - - Weight 78 kg (172 lb) 12/27/2023 9:44 AM CDT Height 157.5 cm (5' 2) 12/27/2023 9:44 AM CDT Body Mass Index 31.46 12/27/2023 9:44 AM CDT Plan of Treatment Health Maintenance Due Date Last Done Comments Pneumococcal series for age 6-64 (1 of 2 - PCV) 1983 HIV for age 15-65 1992 Depression screening for age 12+ 08/12/2021 08/12/19 21 Colonoscopy through age 75 2022 COVID-19 vaccine series (2022- season) 2023 06/05/2023, 03/28/2022, 04/19/2021, Additional history exists Influenza for age 9-49 03/15/2024 , 03/23/2021, 04/11/2020, Additional history exists BMI (ht and wt on same day) for age 18+ 12/26/2024 12/27/2023, 03/28/2022, 08/12/2020 Mammogram for age 45-75 01/06/2025 01/07/2024, 10/22 Lipids for age 45-75 08/12/2025 08/12/2020 Pap test for age 21-65 08/12/2025 08/12/2020, 2020 Tetanus booster 04/13/2031 04/13/2021, 06/14, 07/28/2003, Additional history exists Tdap Completed 04/13/2021, 06/26/2010 Hepatitis C screening for ag e 18-79 Completed 03/28/2022 Procedures Procedure Name Priority Date/Time Associated Diagnosis Comments COMP METABOLIC PANEL Routine 01/29/2024 2:40 PM CDT 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) Secondary malignant neoplasm of bone and bone marrow (HC) XR MAMMO SELENE BILAT SCREEN Routine 01/07/2024 1:26 PM CDT Encounter for screening mammogram for malignant neoplasm of breast COMP METABOLIC PANEL Routine 01/07/2024 1:03 PM CDT 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) Secondary malignant neoplasm of bone and bone marrow (HC) SDNA-FIT EXTERNAL (COLOGUARD) Routine 01/07/2024 10:40 AM CDT Screening for colon cancer COMP METABOLIC PANEL Routine 12/31/2023 12:54 PM CDT 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) Secondary malignant neoplasm of bone and bone marrow (HC) COMP METABOLIC PANEL Routine 12/18/2023 11:21 AM CDT 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) Secondary malignant neoplasm of bone and bone marrow (HC) COMP METABOLIC PANEL Routine 12/11/2023 10:33 AM CDT 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) Secondary malignant neoplasm of bone and bone marrow (HC) SCAN CORRESP-LABORATORY RESULTS 12/11/2023 12:00 AM CDT COMP METABOLIC PANEL Routine 12/06/2023 9:30 AM CDT 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) Secondary malignant neoplasm of bone and bone marrow (HC) ANTI HCV Routine 03/28/2022 12:36 PM CDT Need for hepatitis C screening test LIPID PANEL W REFLEX MEASURED LDL Routine 08/12/2020 4:24 PM REGULATORY INTERN Hypertension [employer] THIN PREP PAP SCREEN IMAGED Routine 08/12/2020 3:35 PM REGULATORY INTERN Cervical cancer screening from Last 3 Months or Most Recently Relevant to Health Maintenance Results * (ABNORMAL) COMP METABOLIC PANEL (01/29/2024 2:40 PM CDT) Only the most recent of6 resultswithin the time period is included. SODIUM 138 136 - 145 mmol/L 01/30/2024 3:40 AM CDT [facility] POTASSIUM 4.7 3.5 - 5.1 mmol/L 01/30/2024 3:40 AM CDT [facility] CHLORIDE 104 98 - 107 mmol/L 01/30/2024 3:40 AM CDT [facility] CO2,TOTAL 23 22 - 29 mmol/L 01/30/2024 3:40 AM CDT [facility] ANION GAP 11 5 - 18 01/30/2024 3:40 AM CDT [facility] GLUCOSE 96 70 - 99 mg/dL 01/30/2024 3:40 AM CDT [facility] CALCIUM 9.1 8.6 - 10.0 mg/dL 01/30/2024 3:40 AM CDT [facility] BUN 20 6 - 20 mg/dL 01/30/2024 3:40 AM CDT [facility] CREATININE 0.96(H) 0.50 - 0.90 mg/dL 01/30/2024 3:40 AM T [facility] BUN/CREAT RATIO 21(H) 10 - 20 3:40 AM T [facility] eGFR 74(L) >90 mL/min/1.7 3m2 01/30/2024 3:40 AM T [facility] Comment:As of 2021, eG FR is calculated by the CKD-EPI creatinine equation without race adjustment. ??eGFR can be influenced by muscle mass, exercise, and diet. ??The reported eGFR is an estimation only and is only applicable if the renal function is stable. ALBUMIN 4.0 4.0 - 4.9 g/dL 01/30/2024 3:40 AM CDT [facility] PROTEIN,TOTAL 7.9 6.0 - 8.0 g/dL 01/30/2024 3:40 AM CDT [facility] BILIRUBIN,TOTAL 0.2 0.0 - 1.2 mg/dL 01/30/2024 3:40 AM T [facility] ALK PHOSPHATASE 132(H) 35 - 104 IU/L 01/30/2024 3:40 AM T [facility] ALT (SGPT) 30 10 - 35 IU/L 01/30/2024 3:40 AM T [facility] AST (SGOT) 41(H) 10 - 35 IU/L 01/30/2024 3:40 AM T [facility] Blood BLOOD SPECIMEN / Unknown Venipuncture / Unknown 01/29/2024 2:40 PM CDT 01/29/2024 2:41 PM CDT Ondina Chávez MD CHEMISTRY [facility] [address] [place] [address], [place] * XR MAMMO SELENE BILAT SCREEN (01/07/2024 1:26 PM CDT) Anatomical Region Laterality Modality BREASTS, Breast Left, Breast Right Bilateral Mammography Impressions 01/07/2024 2:39 PM CDT ??There is no radiographic evidence for malignancy. ??Recommend annual mammograms. MAMMOGRAM ASSESSMENT: ??ACR 1 Negative PATIENTS: You will also receive a letter with your examination results in an easy to read format. ??If you have questions about your results, please contact your referring provider. Narrative 01/07/2024 2:39 PM CDT For Patients: As a result of the Century Cures Act, medical imaging exams and procedure reports are released immediately into your electronic medical record. You may view this report before your referring provider. If you have questions, please contact your health care provider. XR MAMMO SELENE BILAT SCREEN [[id number]] CLINICAL HISTORY: ??This is an asymptomatic 48 y.o. patient. INDICATION FOR EXAM: Mammogram Screening. TECHNIQUE: CC & MLO views were obtained. ??This study was evaluated with the assistance of Computer-Aided Detection. Breast Tomosynthesis was used in interpretation. COMPARISON FILM: Yes 10/22/22 [facility] ?? FINDINGS: ??The breasts are almost entirely fatty. There are no dominant masses, suspicious micro calcifications or areas of architectural distortion. Ondina Chávez MD MAMMO * (ABNORMAL) SDNA-FIT EXTERNAL (COLOGUARD) (01/07/2024 10:40 AM CDT) NONINV COLON CA DNA+OCC BLD SCRN STL-IMP Positive( A) Negative 01/10/2024 10:08 AM CDT [facility] (CLIA #:[id number]) Comment: POSITIVE TEST RESULT. A positive Cologuard result should be followed with a colonoscopy or visual examination of the colon. The normal value (reference range) for this assay is negative. TEST DESCRIPTION: Composite algorithmic analysis of stool DNA-biomarkers with hemoglobin immunoassay. ?? Quantitative values of individual biomarkers are not reportable and are not associated with individual biomarker result reference ranges. Cologuard is intended for colorectal cancer screening of adults of either sex, 45 years or older, who are at average-risk for colorectal cancer (CRC). Cologuard has been approved for use by the U.S. FDA. The performance of Cologuard was established in a cross sectional study of average-risk adults aged 50-84. Cologuard performance in patients ages 45 to 49 years was estimated by sub-group analysis of near-age groups. Colonoscopies performed for a positive result may find as the most clinically significant lesion: colorectal cancer [4.0%], advanced adenoma (including sessile serrated polyps greater than or equal to 1cm diameter) [20%] or non- advanced adenoma [31%]; or no colorectal neoplasia [45%]. These estimates are derived from a prospective cross-sectional screening study of 10,000 individuals at average risk for colorectal cancer who were screened with both Cologuard and colonoscopy. (Ronaldo Duke al, N Engl J Med 2014;370(14):7905-4046.) Cologuard may produce a false negative or false positive result (no colorectal cancer or precancerous polyp present at colonoscopy follow up). A negative Cologuard test result does not guarantee the absence of CRC or advanced adenoma (pre-cancer). The current Cologuard screening interval is every 3 years. ([employer] [employer] and U.S. Multi-Society Task Force). Cologuard performance data in a 10,000 patient pivotal study using colonoscopy as the reference method can be accessed at the following location: www.[employer]/results. Additional description of the Cologuard test process, warnings and precautions can be found at www.[employer].com. Stool specimen (specimen) (Rectum) 01/07/2024 10:40 AM CDT 01/08/2024 9:44 AM CDT Ondina Chávez MD URINE [facility] (CLIA #:[id number]) [place] [address], * SCAN CORRESP-LABORATORY RESULTS (12/11/2023 12:00 AM CDT) Scanner OTHER * ANTI HCV (03/28/2022 12:36 PM CDT) HEPATITIS C ANTIBODY Non-React diane Non-React diane 03/29/2022 2:23 PM CDT [facility] Comment:Antibodies to HCV no t detected; does not exclude the possibility of exposure to HCV. Blood BLOOD SPECIMEN / Unknown Venipuncture / Unknown 03/28/2022 12:36 PM CDT 03/28/2022 12:37 PM CDT Ondina Chávez MD SEND OUTS [facility] [address] [place] [address], * LIPID PANEL W REFLEX MEASURED LDL (08/12/2020 4:24 PM REGULATORY INTERN) CHOLESTEROL,TOTAL 164 100 - 199 mg/dL 08/12/2020 8:46 PM REGULATORY INTERN [facility] TRIGLYCERIDES 105 <150 mg/dL 08/12/2020 8:46 PM REGULATORY INTERN [facility] HDL CHOLESTEROL 78 >40 mg/dL 8:46 PM REGULATORY INTERN [facility] NON-HDL CHOLESTEROL 86 <145 mg/dl 08/12/2020 8:46 PM REGULATORY INTERN [facility] CHOL/HDL RATIO 2.10 <4.50 08/12/2020 8:46 PM REGULATORY INTERN [facility] LDL CHOLESTEROL 65 <=130 mg/dL 08/12/2020 8:46 PM REGULATORY INTERN [facility] PROVIDER ORDERED STATUS RANDOM 08/12/2020 8:46 PM REGULATORY INTERN [facility] Blood BLOOD SPECIMEN / Unknown Butterfly / Unknown 08/12/2020 4:24 PM REGULATORY INTERN 08/12/2020 4:27 PM REGULATORY INTERN Ondina Chávez MD CHEMISTRY [facility] [address] [place] [address], [place] * [employer] THIN PREP PAP SCREEN IMAGED (08/12/2020 3:35 PM REGULATORY INTERN) Case Report Gynecologic Cytology Report ? Case: [id number] ? Authorizing Provider: ??Ondina Chávez MD ? Collected: ? 08/12/2020 1535 ? Ordering Location: ? [facility] [place] ?? Received: ?08/12/2020 1612 ? Clinic ? First Screen: ?[facility] ? Specimen: ?[employer] ThinPrep Vial Screening, Cervical ? 08/22/2020 10:04 AM REGULATORY INTERN [facility] INTERPRETATION/ RESULT NEGATIVE FOR INTRAEPITHELIAL LESION OR MALIGNANCY (NIL) (none) 08/22/2020 10:04 AM [facility] IMEN ADEQUACY Satisfactory for evaluation Endocervical component present 08/22/2020 10:04 AM [facility] HPV REQUEST HPV and PAP 08/22/2020 10:04 AM [facility] Date of LMP 07/20/2020 08/22/2020 10:04 AM [facility] Last Pap Date 2015 08/22/2020 10:04 AM [facility] Last Pap Result NIL 10:04 AM [facility] Abnormal Pap or Shelly Bx in last 5 years No 08/22/2020 10:04 AM [facility] Menstrual Status Regular Periods 08/22/2020 10:04 AM [facility] Shelly Bx Done Today No 08/22/2020 10:04 AM [facility] Additional Information None given 08/22/2020 10:04 AM [facility] Comment: Cytology is screened at [facility] - [address] [place] [id number] and [facility] - [address] [place] [address] and [facility] - [address] [place] [id number] Interpreted at [facility] - [address] [place] [id number] Automated Review Successful 08/22/2020 10:04 AM [facility] Comment:Specimen processed s uccessfully by automated systems integration manager device, ThinPrep Imaging System, [employer] ANCILLARY TESTING [employer] HPV Ordered, Please see separate report 08/22/2020 10:04 AM [facility] Note The pap test is a screening technique, not a diagnostic procedure. It is used primarily to screen for squamous cancers and precursor lesions. Published studies have shown that it is subject to both false negative and false positive results. The pap test should not be used as the sole means to diagnose or exclude pre-malignant and malignant lesions. 08/22/2020 10:04 AM REGULATORY INTERN [facility] Other (Cervical) Non-Blood / Unknown 08/12/2020 3:35 PM REGULATORY INTERN 08/12/2020 4:12 PM REGULATORY INTERN Ondina Chávez MD PATHOLOGY/CYTOLOGY [facility] [address] [place] [address], from Last 3 Months or Most Recently Relevant to Health Maintenance Care Teams Microcomputer Technician Relationship Specialty Start Date End Date Ondina Chávez MD [address] [place] [address] PCP - General Family Practice 08/18/20
--- OUTSIDE RECORDS SUMMARY | 2024-02-21 15:10 | XMS_ITS | Encounter Summary ---
Author Organization [facility] Address [address] [place] [id number] Care Team Providers Care Sales Team Leader Name Role Phone Elsewhere, Pcp Primary Care Provider Unavailabl e Reason for Referral * Outpatient (Routine) Specialty Diagnoses / Procedures Referred By Mikki t Referred To Contact Oncology Pérez Zuniga M.D., Ph.D. [address] [place] [phone] [facility] Referral ID Status Reason Start Date Expiration Date Visits Re quested Visits Authorized * Outpatient (Routine) Specialty Diagnoses / Procedures Referred By Mikki t Referred To Contact Oncology Pérez Zuniga M.D., Ph.D. 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 [address] [place] [phone] [facility] [address] [place] [address] Referral ID Status Reason Start Date Expiration Date Visits Re quested Visits Authorized [id number] Closed 08/25/2023 08/25/2024 4 4 Encounter Details Date Type Department Care Team (Late st Contact Info) Description 11/26/2023 1:00 PM CDT Office Visit Department of Oncology in [place], [place] [address] [place] [phone] Pérez Zuniga M.D., Ph.D. [address] [place] [phone] Secondary Malignant Neoplasm Bone (HCC) (Primary Dx); Melanoma Trunk (HCC); Secondary Malignant Neoplasm Brain (HCC) Social History Tobacco Use Types Packs/Day Years Used Date Smoking Tobacco: Never Passive Smoke Exposure: Never Smokeless Tobacco: Never Alcohol Use Standard Drinks/Week Comments Not Currently 0 (1 standard drink = 0.6 oz pur e alcohol) Occasional [facility] Utilities Answer Date Recorded In the past 12 months has th e Lust have it!, gas, oil, or water [employer] threatened to shut off services in your [...] your living situation today? I have a [facility] place to live 07/10/2023 Sex and Gender Information Value Date Recorded Sex Assigned at Female 05/31/2023 8:26 AM [employer] Gender Identity Female 05/31/2023 8:26 AM [employer] E[employer]IPMENT MECH[employer]IC Sexual Orientation Straight 05/31/2023 8: 26 AM [employer] E[employer]IPMENT MECH[employer]IC documented as of this encounter Last Filed Vital Signs Vital Sign Reading Time Taken Comments Blood Pressure - - Pulse - - Temperature - - Respiratory Rate - - Oxygen Saturation - - Inhaled Oxygen Concentration - - Weight 80.4 kg (177 lb 4 oz) 11/26/2023 12:56 PM CDT Height 155.6 cm (5' 1.26) 11/26/2023 12:56 PM C DT Body Mass Index 33.21 11/26/2023 12:56 PM CDT documented in this encounter Progress Notes * Pérez Zuniga M.D., Ph.D. - 11/26/2023 1:00 PM CDT SUBJECTIVE CHIEF COMPLAINT/REASON FOR VISIT Metastatic malignant melanoma, unknown primary, BRAF V600E positive, currently on full dose DT + NIVO, s/p SRS lfor multiple brain mets. HISTORY [...] Critical Imaging MRI Left Femur [facility] Interpretation Several 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 The largest is seen proximally extending off of the proximal [id number]. This involves the intertrochanteric left femurextending distally [...] diaphysis, which extends off of the proximal [id number]. 05/09/2023 Critical Imaging Chest X-ray Impression: 1. Suspicious right lower lung mass measuring up to 4.1 cm with a possible left scapular lytic lesion. Recommend CT chest for better characterization. 05/13/2023 Biopsy/Pathology [facility] Pathology Review FINAL DIAGNOSIS Left femur mass, biopsy ([id number]; 05/13/2023): Metastatic melanoma, diffusely positive for BRAF [...] Critical Imaging CT Abdomen Pelvis [facility] Interpretation IMPRESSION: 1. No evidence [...] Au. The patient was asymptomatic from her CONSULTING INTERN disease. Given the patient's numerous (at least 10 lesions), it was felt that consideration of LINAC radiotherapy would be a good option. Referral to Radiation Oncology in [place]. 10/25/2023 - 10/25/2023 Radiation Therapy SRS to 15 brain metastases to a total dose of 20 Gy in 1 fraction 11/26/2023 Critical Imaging PET/CT: (1) Recurrent intensely FDG avid osseous metastases. (2) Multifocal FDG uptake along the periphery of the left adnexal cystic lesion is also suspicious for recurrent disease. (3) Mildly FDG avid left chest wall lesion is indeterminant, correlate with direct visual inspection. (4) Intracranial disease is better evaluated on recent MR brain. Progression vs pseudo-progression? Unclear 11/27/2023 - Chemotherapy Nivolumab 1 mg/kg / Ipilimumab 3 mg/kg Start Date: 11/27/2023 (Planned) 12/04/2023 - Radiation Therapy Radiation Therapy Treatment Details (Noted on 11/26/2023) Site: Bone Technique: No technique specified Goal: Palliative Planned Treatment Start Date: 12/04/2023 INTERVAL HISTORY: Ms. Cota returns for follow-up of melanoma. Over the last week, Mrs. Cota has had some mild Sx's in her L shoulder. ECOG performance status is 0. MEDICAL/SURGICAL HISTORY [...] and Family History. OBJECTIVE VITAL SIGNS Vitals: 11/26/23 1256 Weight: 80.4 kg Height: 155.6 cm Rate your distress: 2 PHYSICAL EXAMINATION General: Alert female, in no acute distress. Ambulates on and off the exam table without difficulty. Skin: No rashes. Eyes: Sclerae non-icteric. ASSESSMENT / PLAN #1 Metastatic malignant melanoma, unknown primary, BRAF V600E positive, currently on full dose DT +NIVO, s/p SRS lfor multiple brain mets. Mrs. Cota is here today for her next round of NIVO. On today's PET/CT there is evidence of FDG uptake in known areas of bony mets; soft tissue mets are not visible. This could represent either progression or pseudo-progression (on NIVO). We had a long discussion regarding possibilities. In the end, we decided to be safe and assume a worst case scenario andescalate therapy. We will keep on with DT and add NIVO + IPI today. I also reached out to Dr. López who will treat the dominant bone mets next week with radiation. Mrs. Cota and family were very thuan reciative of the visit; they will proceed as advised. 2. ICI toxicity. With the addition of IPI to the current regiment of therapy, we are facing an increased risk of liver toxicity. We will follow LFT's weekly (drawn at home). PATIENT EDUCATION: Ready to learn, no apparent [...] AM CDT Clinical Communication Virtual Review in [place], [place] 200 [place] [phone] 02/27/2024 7:30 AM CDT Appointment Department of Radiology, [facility] in [place], [place] [address] [place] [phone] Zhane Granados APRN, C.N.P. [address] [place] [phone] 02/27/2024 8:45 AM CDT Clinical Support Department of Palliative Care in [address] [phone] Bereket Johnson APRN, C.N.P., D.N.P. [address] [place] [phone] 02/27/2024 9:45 AM CDT Clinical Support Department of Palliative Care in [place], [place] [address] [place] [phone] Marija Olivas APRN, C.N.P., M.S.N. [address] [place] [phone] 02/27/2024 11:00 AM CDT Lab Department of Laboratory Medicine and Pathology, [facility] in [address] [phone] Zhane Granados APRN, C.N.P. [address] [place] [phone] 02/27/2024 1:00 PM CDT Office Visit Department of Oncology in [address] [phone] Pérez Zuniga M.D., Ph.D. [address] [place] [phone] 02/27/2024 1:45 PM CDT Infusion Department of Oncology in [place], [place] [address] [place] [phone] Zhane Granados APRN, C.N.P. [address] [place] [phone] 03/17/2024 7:00 AM CDT Clinical Communication Virtual Review in [place], [place] 200 [place] [address] 03/19/2024 10:45 AM CDT Clinical Support Department of Palliative Care in [place], [place] [address] [place] [phone] Marija Olivas APRN, C.N.P., M.S.N. [address] [place] [phone] 03/19/2024 11:30 AM CDT Office Visit Department of Palliative Care in [place], [place] [address] [place] [phone] Valentine Kelsey M.D., M.S. [address] [place] [phone] 03/19/2024 11:40 AM CDT Lab Department of Laboratory Medicine and Pathology, [facility] in [address] [phone] Zhane Granados APRN, C.N.P. [address] [place] [phone] 03/19/2024 1:40 PM CDT Office Visit Department of Oncology in [address] [phone] Pérez Zuniga M.D., Ph.D. [address] [place] [phone] 03/19/2024 2:45 PM CDT Infusion Department of Oncology in [address] [phone] Zhane Granados APRN, C.N.P. [address] [place] [phone] 03/24/2024 3:00 PM CDT Clinical Communication Virtual Review in [address] [phone] 03/26/2024 7:45 AM CDT Appointment Department of Radiology, [facility], in [place], [place] [address] [place] [address] Zhane Granados APRN, C.N.P. [address] [place] [phone] 03/26/2024 3:20 PM CDT Office Visit Department of Oncology in [place], [place] [address] [place] [phone] Pérez Zuniga M.D., Ph.D. 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 LAB BLOO D ADD-ON [facility] [address] [place] [address], [facility] 200 [place] [address] * (ABNORMAL) LD (Lactate Dehydrogenase) (01/14/2024 7:34 AM CDT) [facility] [place] LD 256(H) 122 - 222 U/L 01/14/2024 8:47 AM CDT DTL Blood (Blood, Venous) 01/14/2024 7:34 AM CDT 01/14/2024 8:29 AM CDT Pérez Zuniga M.D., Ph.D. LAB BLOO D NON ADD-ON Performing Organization Address [facility] Co de Phone Number [facility] 200 [place], [place] [id number] [place] [address] 200 [place] [address] * Bilirubin, Direct (01/14/2024 7:34 AM CDT) [facility] Bilirubin, Direct, S <0.2 0.0 - 0.3 mg/dL 01/14/2024 8:44 AM CDT DTL Blood (Blood, Venous) 01/14/2024 7:34 AM CDT 01/14/2024 8:01 AM CDT Pérez Zuniga M.D., Ph.D. LAB BLOO D ADD-ON Performing Organization Address [facility] Co de Phone Number [facility] 200 [place] [address], [facility] 200 [place] [address] * (ABNORMAL) Comprehensive Metabolic Panel (01/14/2024 7:34 AM CDT) [facility] Potassium, S 4.2 3.6 - 5.2 mmol/L 01/14/2024 8:44 AM CDT DTL Sodium, S 136 135 - 145 mmol/L 01/14/2024 8:44 AM CDT DTL Chloride, S 101 98 - 107 mmol/L 01/14/2024 8:44 AM CDT DTL Bicarbonate, S 24 22 - 29 mmol/L 01/14/2024 8:44 AM CDT DTL Anion Gap 11 7 - 15 01/14/2024 8:44 AM CDT DTL BUN (Blood Urea Nitrogen), S 15 6 - 21 mg/dL 01/14/2024 8:44 AM CDT DTL Creatinine 0.98 0.59 - 1.04 mg/dL 01/14/2024 8:44 AM CDT DTL Estimated GFR (eGFR) 72 >=60 mL/min/BS A 01/14/2024 8:44 AM CDT DTL Comment: Estimated GFR calculated using the 2020 CKD_EPI creatinine equation. Calcium, Total, S 9.1 8.6 - 10.0 mg/dL 01/14/2024 8:44 AM CDT DTL Glucose, S 103 70 - 140 mg/dL 01/14/2024 8:44 AM CDT DTL Protein, Total, S 6.8 6.3 - 7.9 g/dL 01/14/2024 8:44 AM CDT DTL Albumin, S 3.7 3.5 - 5.0 g/dL 01/14/2024 8:44 AM CDT DTL Aspartate Aminotransferase (AST), S 26 8 - 43 U/L 01/14/2024 8:44 AM CDT DTL Alkaline Phosphatase, S 130(H) 35 - 104 U/L 01/14/2024 8:44 AM CDT DTL Alanine Aminotransferase (ALT), S 29 7 - 45 U/L 01/14/2024 8:44 AM CDT DTL Bilirubin, Total, S 0.3 0.0 - 1.2 mg/dL 01/14/2024 8:44 AM CDT DTL Blood (Blood, Venous) 01/14/2024 7:34 AM CDT 01/14/2024 8:01 AM CDT Pérez Zuniga M.D., Ph.D. LAB BLOO D ADD-ON [facility] [address] [place] [address], [facility] DTL [facility] [address] [place] [address] * (ABNORMAL) CBC with Differential, Blood (01/14/2024 7:34 AM CDT) Hemoglobin 11.1(L) 11.6 - 15.0 g/dL 01/14/2024 7:58 AM CDT DTL Hematocrit 36.0 35.5 - 44.9 % 01/14/2024 7:58 AM CDT DTL Erythrocytes 4.08 3.92 - 5.13 x10(12)/L 01/14/2024 7:58 AM CDT DTL MCV 88.2 78.2 - 97.9 fL 01/14/2024 7:58 AM CDT DTL RBC Distrib Width 16.7(H) 12.2 - 16.1 % 01/14/2024 7:58 AM CDT DTL Platelet Count 341 157 - 371 x10(9)/L 01/14/2024 7:58 AM CDT DTL Leukocytes 6.5 3.4 - 9.6 x10(9)/L 01/14/2024 7:58 AM CDT DTL Neutrophils 3.91 1.56 - 6.45 x10(9)/L 01/14/2024 7:58 AM CDT PM Lymphocytes 1.54 0.95 - 3.07 x10(9)/L 01/14/2024 7:58 AM CDT DTL Monocytes 0.62 0.26 - 0.81 x10(9)/L 01/14/2024 7:58 AM CDT DTL Eosinophils 0.33 0.03 - 0.48 x10(9)/L 01/14/2024 7:58 AM CDT DTL Basophils 0.09(H) 0.01 - 0.08 x10(9)/L 01/14/2024 7:58 AM CDT DTL Blood (Blood, Venous) 01/14/2024 7:34 AM CDT 01/14/2024 7:42 AM CDT Pérez Zuniga M.D., Ph.D. LAB BLOO D ADD-ON [facility] [address] [place] [address], [facility] DTL [facility] [address] [place] [address] [facility] [address] [place] [address] * (ABNORMAL) Thyroid Function [place] (12/26/2023 7:18 AM CDT) [facility] TSH, Sensitive 0.02(L) 0.3 - 4.2 mIU/L 12/26/2023 8:10 AM CDT DTL Blood (Blood, Venous) 12/26/2023 7:18 AM CDT 12/26/2023 7:45 AM CDT Pérez Zuniga M.D., Ph.D. LAB BLOO D ADD-ON [facility] 200 [place], [place] [phone] [place] [address] 200 [place] [address] * (ABNORMAL) LD (Lactate Dehydrogenase) (12/26/2023 7:18 AM CDT) [facility] LD 319(H) 122 - 222 U/L 12/26/2023 8:41 AM CDT DT Blood (Blood, Venous) 12/26/2023 7:18 AM CDT 12/26/2023 8:16 AM CDT Pérez Zuniga M.D., Ph.D. LAB BLOO D NON ADD-ON [facility] [address] [place], [place] [address] [place] [address] 200 [place] [address] * Bilirubin, Direct (12/26/2023 7:18 AM CDT) [facility] Bilirubin, Direct, S <0.2 0.0 - 0.3 mg/dL 12/26/2023 8:10 AM CDT DTL Blood (Blood, Venous) 12/26/2023 7:18 AM CDT 12/26/2023 7:45 AM CDT Pérez Zuniga M.D., Ph.D. LAB BLOO D ADD-ON [facility] [address] [place] [address], [facility] DTL [facility] [address] [place] [address] * (ABNORMAL) Comprehensive Metabolic Panel (12/26/2023 7:18 AM CDT) Pathologist [facility] Potassium, S 3.6 3.6 - 5.2 mmol/L 12/26/2023 8:10 AM CDT DTL Sodium, S 134(L) 135 - 145 mmol/L 12/26/2023 8:10 AM CDT DTL Chloride, S 100 98 - 107 mmol/L 12/26/2023 8:10 AM CDT DTL Bicarbonate, S 24 22 - 29 mmol/L 12/26/2023 8:10 AM CDT DTL Anion Gap 10 7 - 15 12/26/2023 8:10 AM CDT DTL BUN (Blood Urea Nitrogen), S 10 6 - 21 mg/dL 12/26/2023 8:10 AM CDT DTL Creatinine 0.65 0.59 - 1.04 mg/dL 12/26/2023 8:10 AM CDT DTL Estimated GFR (eGFR) >90 >=60 mL/min/BS A 12/26/2023 8:10 AM CDT DTL Comment: Estimated GFR calculated using the 2020 CKD_EPI creatinine equation. Calcium, Total, S 8.8 8.6 - 10.0 mg/dL 12/26/2023 8:10 AM CDT DTL Glucose, S 104 70 - 140 mg/dL 12/26/2023 8:10 AM CDT DTL Protein, Total, S 7.0 6.3 - 7.9 g/dL 12/26/2023 8:10 AM CDT DTL Albumin, S 3.4(L) 3.5 - 5.0 g/dL 12/26/2023 8:10 AM CDT DTL Aspartate Aminotransferase (AST), S 52(H) 8 - 43 U/L 12/26/2023 8:10 AM CDT DTL Alkaline Phosphatase, S 246(H) 35 - 104 U/L 12/26/2023 8:10 AM CDT DTL Alanine Aminotransferase (ALT), S 49(H) 7 - 45 U/L 12/26/2023 8:10 AM CDT DTL Bilirubin, Total, S 0.4 0.0 - 1.2 mg/dL 12/26/2023 8:10 AM CDT DTL Blood (Blood, Venous) 12/26/2023 7:18 AM CDT 12/26/2023 7:45 AM CDT Pérez Zuniga M.D., Ph.D. LAB BLOO D ADD-ON [facility] [address] [address], [facility] [address] [address] * (ABNORMAL) CBC with Differential, Blood (12/26/2023 7:18 AM CDT) Hemoglobin 11.0(L) 11.6 - 15.0 g/dL 12/26/2023 7:46 AM CDT DTL Hematocrit 34.3(L) 35.5 - 44.9 % 12/26/2023 7:46 AM CDT DTL Erythrocytes 3.98 3.92 - 5.13 x10(12)/L 12/26/2023 7:46 AM CDT DTL MCV 86.2 78.2 - 97.9 fL 12/26/2023 7:46 AM CDT DTL RBC Distrib Width 16.2(H) 12.2 - 16.1 % 12/26/2023 7:46 AM CDT DTL Platelet Count 221 157 - 371 x10(9)/L 12/26/2023 7:46 AM CDT DTL Leukocytes 6.1 3.4 - 9.6 x10(9)/L 12/26/2023 7:46 AM CDT DTL Neutrophils 3.83 1.56 - 6.45 x10(9)/L 12/26/2023 7:46 AM CDT DHPM Lymphocytes 1.41 0.95 - 3.07 x10(9)/L 12/26/2023 7:46 AM CDT DTL Monocytes 0.64 0.26 - 0.81 x10(9)/L 12/26/2023 7:46 AM CDT DTL Eosinophils 0.24 0.03 - 0.48 x10(9)/L 12/26/2023 7:46 AM CDT DTL Basophils <0.03 0.01 - 0.08 x10(9)/L 12/26/2023 7:46 AM CDT DTL Blood (Blood, Venous) 12/26/2023 7:18 AM CDT 12/26/2023 7:34 AM CDT Pérez Zuniga M.D., Ph.D. LAB BLOO D ADD-ON [facility] [address] [place] [address], [facility] DTL 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
--- NOTE | 2024-02-21 15:19 | ED_ITS ---
<Statement entered by Carey Kenyon MD - 02/25/24 08:26> I havent seen this pt, no charges. HPI - General Adult General Chief complaint: Fever Stated complaint: Fever, rash--referred by oncologist Time Seen by Provider: 02/21/24 14:30 Source: patient and family Limitations: no limitations History of Present Illness HPI narrative: 48-year-old female presenting today with concerns about fever. Patient has had a fever as high as 104 for the last 5-6 days. She has been taking Tylenol regularly which the fever is responding to. Patient is on chemotherapy and immunotherapy for metastatic melanoma. On Saturday she also noticed a rash on the dorsal surface of both of her hands, rash is painful. She denies headache, sore throat, cough, chest pain, abdominal pain, diarrhea, urinary symptoms. She denies rash anywhere else on her body. She feels significant chills that come and go. Last dose of Tylenol was approximately 4 hours ago. Patient denies any bug bites, tick bites or circular rashes. Related Data Home Medications ?Medication ?Instructions ?Recorded ?Confirmed lisinopril 10 1 tab PO DAILY 04/02/23 04/19/23 mg-hydrochlorothiazide 12.5 mg tablet dabrafenib 75 mg capsule (Tafinlar) 150 mg PO BID 08/08/23 08/08/23 dexamethasone 1 mg tablet 2 mg PO BID 08/08/23 02/21/24 hydroxyzine HCl 25 mg tablet 25 - 50 mg PO QPM PRN anxiety 08/08/23 02/21/24 ondansetron HCl 8 mg tablet 8 mg PO Q8H PRN nausea/vomiting 08/08/23 08/08/23 trametinib 2 mg tablet (Mekinist) 2 mg PO DAILY 08/08/23 08/08/23 trazodone 50 mg tablet 100 mg PO QPM PRN 08/08/23 08/08/23 binimetinib 15 mg tablet (Mektovi) 45 mg PO BID 02/21/24 02/21/24 colchicine 0.6 mg tablet 1.2 mg PO DAILY 02/21/24 02/21/24 encorafenib 75 mg capsule PO 02/21/24 (Braftovi) ipilimumab IV 02/21/24 levothyroxine 100 mcg tablet 100 mcg PO QAM 02/21/24 02/21/24 nivolumab IV 02/21/24 omeprazole 20 mg capsule,delayed 20 mg PO DAILY 02/21/24 02/21/24 release prochlorperazine maleate 10 mg 10 mg PO DAILY 02/21/24 02/21/24 tablet Previous Rx's ?Medication ?Instructions ?Recorded diazepam 5 mg tablet (Valium) 5 mg PO ONCE #2 tabs 05/07/23 oxycodone 5 mg tablet 5 mg PO Q6H PRN pain #10 tabs 05/07/23 Allergies Allergy/AdvReac Type Severity Reaction Status Date / Time No Known Drug Allergies Allergy Unverified 08/08/23 18:49 Review of Systems Status of ROS: Reports: 10 or more systems reviewed and unremarkable except as noted in History and below [facility] Medical History Hypertension ?I10 - Essential (primary) hypertension (ICD-10) Sprain of anterior cruciate ligament of left knee ?S83.512A - Sprain of anterior cruciate ligament of left knee, initial encounter (ICD-10) Social History Smoking Status: Never smoker Do you use any of these nicotine containing products: None How often do you have a drink containing alcohol: never How often do you have six or more drinks on one occasion: Never AUDIT-C Alcohol total score: 0 Non-prescribed substance use: denies use Exam Narrative: Exam Narrative: Well-nourished well-developed patient, shivering. Alert and oriented. Answers questions appropriately. Mood and affect are appropriate. Thoughts are goal oriented and rational. No tangential or magical thinking noted. HEENT: Normocephalic atraumatic. Pupils are equally round reactive to light. Extraocular muscles are intact. Conjunctivae are moist without any icterus noted. Moist mucous membranes. Posterior pharynx is normal. Neck is soft. Cardiovascular: Tachycardic. Lungs: Clear to auscultation bilaterally no wheezes rhonchi or rales are appreciated. Patient takes deep breaths without any discomfort. Abdomen: Soft and nontender nondistended with normal bowel sounds. No guarding or rebound. Extremities: Bilateral lower extremities are without edema. Skin: Well perfused. Patient has a raised papular rash on the dorsal surface of both hands. Rash is not seen on any other parts of the body. Back: Normal appearance. Const: Vital Signs, click to edit/add: Vital Signs - 24 hr 02/21/24 14:30 02/21/24 14:55 02/21/24 16:13 Temperature 98.9 F Pulse Rate Pulse Rate [Pulse Oximeter] 103 H Respiratory Rate 20 20 Blood Pressure Blood Pressure [Ri ght Upper Arm] 140/87 H Pulse Oximetry 100 98 98 Oxygen Delivery Me thod Room Air Room Air 02/21/24 16:13 02/21/24 16:14 02/21/24 16:15 Temperature Pulse Rate 118 H 116 H 115 H Pulse Rate [Pulse Oximeter] Respiratory Rate Blood Pressure 132/89 Blood Pressure [Ri ght Upper Arm] Pulse Oximetry 98 99 99 Oxygen Delivery Me thod 02/21/24 16:20 02/21/24 16:30 02/21/24 16:31 Temperature 101.6 F H Pulse Rate Pulse Rate [Pulse Oximeter] Respiratory Rate Blood Pressure 131/84 Blood Pressure [Ri ght Upper Arm] Pulse Oximetry 100 99 Oxygen Delivery Me thod 02/21/24 16:32 02/21/24 16:45 02/21/24 17:00 Temperature Pulse Rate 113 H 107 H Pulse Rate [Pulse Oximeter] Respiratory Rate Blood Pressure Blood Pressure [Ri ght Upper Arm] Pulse Oximetry 98 98 99 Oxygen Delivery Me thod 02/21/24 17:01 02/21/24 17:15 02/21/24 17:30 Temperature Pulse Rate 105 H 98 103 H Pulse Rate [Pulse Oximeter] Respiratory Rate Blood Pressure 121/68 Blood Pressure [Ri ght Upper Arm] Pulse Oximetry 98 97 99 Oxygen Delivery Me thod 02/21/24 17:31 Temperature Pulse Rate 103 H Pulse Rate [Pulse Oximeter] Respiratory Rate Blood Pressure 126/70 Blood Pressure [Ri ght Upper Arm] Pulse Oximetry 98 Oxygen Delivery Me thod Course Course ED Course: IV established and labs were drawn. EKG, read by me, shows sinus tachycardia with a pulse of 130. Chest x-ray, read by me, does not show any acute infiltrates. CBC does not show an elevated white cell count, normal platelet count. Chemistries are unremarkable aside from a slightly low carbon dioxide at 16. Her lactate was elevated at 4.3. Patient is started on 1 L of normal saline. LFTs were unremarkable. Normal troponin. CRP is elevated at 7.6. UA is unremarkable. Triple swab was negative, mono is negative, strep negative. Discussed results with the patient. At this time I do recommend admission. Patient states that her lactate has been elevated before specially when she does not drink water. She states that she did drink a whole lot yesterday because she was on a car trip and trying not to stop for bathroom breaks. She states t hat her pulse is very sensitive to her fluid status. She states that she has had repeated fevers in the past because of her chemo treatment. She states that she should have stopped taking her chemo sooner than she did this week. She states she was hospitalized in the past for these fevers and nothing was found. She states that she does not want to be hospitalized at this time if there is no obvious etiology of infection. Patient states that she feels much better after L of normal saline, she is no longer shivering. Her pulse has come down to 103 from 130. Patient states that she understands reasons to return to the ER and again she feels comfortable going home at this time knowing that she has an elevated lactate and fevers. Vital Signs Vital signs: Initial Vital Signs Temperature 98.9 F 02/21/24 14:30 Temperature Source Oral 02/21/24 14:30 Pulse Rate 103 H 02/21/24 14:30 Respiratory Rate 02/21/24 14:30 Blood Pressure 140/87 H 02/21/24 14:30 Blood Pressure Mean 104 02/21/24 14:30 Blood Pressure Position Sitting 02/21/24 14:30 Pulse Oximetry 100 02/21/24 14:30 Oxygen Delivery Method Room Air 02/21/24 14:30 Vital Signs Temperature 98.9 F 02/21/24 14:30 Pulse Rate 103 H 02/21/24 14:30 Respiratory Rate 20 02/21/24 14:30 Blood Pressure 140/87 H 02/21/24 14:30 Pulse Oximetry 100 02/21/24 14:30 Oxygen Delivery Method Room Air 02/21/24 14:30 Temperature 101.6 F H 02/21/24 16:20 Pulse Rate 103 H 02/21/24 17:31 Respiratory Rate 02/21/24 16:13 Blood Pressure 126/70 02/21/24 17:31 Pulse Oximetry 98 02/21/24 17:31 Oxygen Delivery Method Room Air 02/21/24 16:13 Medications Administered Medications: Discontinued Medications Generic Name Dose Route Start Last Admin Trade Name Yannick PRN Reason Stop Dose Admin Acetaminophen 1,000 mg 02/21/24 16:25 02/21/24 16:30 Acetaminophen 500 Mg Tablet PO 02/21/24 16:26 1,000 mg ONCE ONE Administration Sodium Chloride 1,000 mls @ 1,000 mls/hr 02/21/24 16:15 02/21/24 17:06 0.9 % Sodium Chloride 1000 Ml IV 02/21/24 17:14 Infused .Q1H [facility] Infusion Medical Decision Making MDM Narrative Medical decision making narrative: 48-year-old female with metastatic melanoma presenting with fever. Plan and discussion per above. Medical Records Medical records reviewed: Yes I reviewed the patient's medical records Lab Data Lab results reviewed: Yes I reviewed the patient's lab results Labs: Lab Results 02/21/24 02/21/24 02/21/24 Range/Units 15:40 15:48 15:49 WBC 6.28 (4.50-11.00) K/uL RBC 4.11 (4.00-5.20) m/uL Hgb 11.2 L (12.0-16.0) gm/dL Hct 35.1 (33.0-51.0) % MCV 85 (80-100) fL MCH 27 (26-34) pg MCHC 32 (32-36) gm/dL RDW Coeff of Zac 15.7 H (11.5-15.5) % Plt Count 286 (140-440) K/uL Neut % (Auto) 86.3 H (42.0-72.0) % Lymph % (Auto) 8.9 L (20-44) % [place] % (Auto) 3.0 (0.0-11.0) % Eos % (Auto) 0.5 (0.0-7.0) % Baso % (Auto) 0.2 (0.0-3.0) % Neut # (Auto) 5.40 (1.7-7.0) K/uL Lymph # (Auto) 0.60 L (0.90-2.90) K/uL [place] # (Auto) 0.20 (0.00-0.90) K/UL Eos # (Auto) 0.03 (0.00-0.50) K/uL Baso # (Auto) 0.01 (0.00-0.30) K/uL Abs Immat Gran (auto) 0.07 (0.00-0.30) K/uL Imm/Tot Granulo (auto) 1.1 % ESR 84 H (2-20) mm/hr Sodium 136 (135-149) mmol/L Potassium 3.9 (3.6-5.1) mmol/L Chloride 105 (96-114) mmol/L Carbon Dioxide 16 L (20-32) mmol/L Anion Gap 15 (7-15) mEq/L BUN 8 (5-24) mg/dL Creatinine 0.7 (0.5-1.5) mg/dL Estimated GFR 108 ml/min Glucose 145 H (60-115) mg/dL Lactate 4.3 H* (0.5-1.9) mmol/L Calcium 9.0 (8.4-10.6) mg/dL Total Bilirubin 0.7 (0.1-1.5) mg/dL Direct Bilirubin 0.4 (0.0-0.5) mg/dL AST 36 H (12-35) U/L ALT 24 (4-35) U/L Alkaline Phosphatase 131 (40-150) U/L Troponin I < 0.01 L (0.01-0.04) ng/mL C-Reactive Protein 7.6 H (0.5-1.0) mg/dL Total Protein 8.5 H (6.0-8.3) g/dL Albumin 4.5 (3.3-5.0) g/dL Urine Color Yellow (Yellow) Urine Appearance Clear (Clear) Urine pH 5.0 (5.0-8.5) Ur Specific [place] 1.025 (1.000-1.030) Urine Protein 2+ A (Negative) Urine Glucose (UA) Negative (Negative) Urine Ketones Negative (Negative) Urine Blood Negative (Negative) Urine Nitrite Negative (Negative) Urine Bilirubin Negative (Negative) Urine Urobilinogen 0.2 (0.2-1.0) Ur Leukocyte Esterase Trace A (Negative) Urine RBC 0-2 (0-2) Urine WBC 0-2 (0-5) Ur Squamous Epith Cells None (None-Few) Urine Bacteria Few A (None) SARS-CoV-2 (PCR) Negative SARS-CoV-2 (Negative) Monoscreen Negative (Negative) Influenza Type A (PCR) Negative PCR FLU A (Negative) Influenza Type B (PCR) Negative PCR FLU B (Negative) RSV (PCR) Negative PCR RSV (Negative) Group A Strep DNA NOT DETECTED (Not Detectd) Imaging Data Chest x-ray: Attestation: I have reviewed the pertinent imaging results. Radiologist's impression: PA and lateral views of the chest. Comparison: 08/08/2023 Findings: Low lung volumes. Mildly enlarged cardiomediastinal silhouette. No focal consolidation, pleural effusions, or visualized pneumothorax. Mild degenerative changes of the visualized spine. Impression: No acute cardiopulmonary disease. ECG Data Attestation: I personally reviewed and interpreted this ECG as follows: Discharge Plan Discharge Clinical Impression: Fever Patient Disposition: Home, Self-Care Condition: Stable Additional Instructions: Follow-up as needed. Return to the ER for vomiting, lightheadedness, fevers that are going up, cough, shortness of breath or other concerning symptoms. Prescriptions: No Action trazodone 50 mg tablet 100 mg PO QPM PRN ondansetron HCl 8 mg tablet 8 mg PO Q8H PRN (Reason: nausea/vomiting) dexamethasone 1 mg tablet 2 mg PO BID hydroxyzine HCl 25 mg tablet 25 - 50 mg PO QPM PRN (Reason: anxiety) Tafinlar 75 mg capsule 150 mg PO BID Mekinist 2 mg tablet 2 mg PO DAILY prochlorperazine maleate 10 mg tablet 10 mg PO DAILY levothyroxine 100 mcg tablet 100 mcg PO QAM colchicine 0.6 mg tablet 1.2 mg PO DAILY Braftovi 75 mg capsule PO Mektovi 15 mg tablet 45 mg PO BID omeprazole 20 mg capsule,delayed release(DR/EC) 20 mg PO DAILY nivolumab [Opdivo] IV ipilimumab [Yervoy] IV lisinopril-hydrochlorothiazide 10-12.5 mg tablet 1 tab PO DAILY diazepam [Valium] 5 mg tablet 5 mg PO ONCE Qty: 2 0RF Rx Instructions: Take 1 tablet a half hour prior to MRI. May repeat x1. 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 oxycodone 5 mg tablet 5 mg PO Q6H PRN (Reason: pain) Qty: 10 0RF Follow Up/Referrals: Ondina Chávez MD [Primary Care Provider] - Stand Alone Forms: [employer] Info Instructions
[2024-02-21 15:58] LABS: Basophils Absolute Auto 0.01 K/uL (0.00-0.30); Basophils Percent Auto 0.2 % (0.0-3.0); Eosinophils Absolute Auto 0.03 K/uL (0.00-0.50); Eosinophils Percent Auto 0.5 % (0.0-7.0); Hematocrit 35.1 % (33.0-51.0); Hemoglobin* 11.2 gm/dL (12.0-16.0); Immature Granulocytes Abs Auto 0.07 K/uL (0.00-0.30); Immature Granulocytes Pct Auto 1.1 %; Lymphocytes Percent Auto 8.9 % (20-44); Mean Corpuscular HGB Conc 32 gm/dL (32-36); Mean Corpuscular Hemoglobin 27 pg (26-34); Mean Corpuscular Volume 85 fL (80-100); Neutrophils Percent Auto 86.3 % (42.0-72.0); Platelet Count* 286 K/uL (140-440); RDW Coefficient of Variation % 15.7 % (11.5-15.5); Red Blood Count 4.11 m/uL (4.00-5.20); White Blood Count* 6.28 K/uL (4.50-11.00)
[2024-02-21 16:00] LABS: Lactate* 4.3 mmol/L (0.5-1.9)
[2024-02-21 16:00] LABS: Appearance Urine Clear (Clear); Bilirubin Urine Negative (Negative); Blood Urine Negative (Negative); Color Urine Yellow (Yellow); Glucose Urine Negative (Negative); Ketones Urine Negative (Negative); Leukocyte Esterase Urine Trace (Negative); Nitrite Urine Negative (Negative); Protein Urine 2+ (Negative); Specific Gravity Urine 1.025 (1.000-1.030); Urobilinogen Urine 0.2 (0.2-1.0)
[2024-02-21] MEDS: 0.9 % SODIUM CHLORIDE 1000 ml 1,000 ML IV (16:00)
[2024-02-21 16:05] LABS: Slide Review Reflex No
[2024-02-21 16:14] LABS: Bacteria Urine Few; RBC Urine 0-2 (0-2); WBC Urine 0-2 (0-5)
[2024-02-21 16:18] LABS: Chloride* 105 mmol/L (96-114); Potassium* 3.9 mmol/L (3.6-5.1); Sodium* 136 mmol/L (135-149)
[2024-02-21 16:21] LABS: Anion Gap 15 mEq/L (7-15); Blood Urea Nitrogen* 8 mg/dL (5-24); Carbon Dioxide* 16 mmol/L (20-32); Creatinine* 0.7 mg/dL (0.5-1.5); Estimated Glomerular Filt Rate 108 ml/min
[2024-02-21 16:22] LABS: Glucose* 145 mg/dL (60-115)
[2024-02-21 16:22] LABS: Mono Screen* Negative (Negative)
[2024-02-21 16:24] LABS: C Reactive Protein* 7.6 mg/dL (0.5-1.0)
[2024-02-21 16:26] LABS: Strep A DNA Probe* NOT DETECTED (Not Detectd)
[2024-02-21] MEDS: ACETAMINOPHEN 500 MG TABLET 1000 MG PO (16:30)
[2024-02-21 16:39] LABS: PCR FLU A Negative PCR FLU A (Negative); PCR FLU B Negative PCR FLU B (Negative); PCR RSV Negative PCR RSV (Negative); SARS PCR* Negative SARS-CoV-2 (Negative)
[2024-02-21 16:46] LABS: Erythrocyte SedimentationRate* 84 mm/hr (2-20)
[2024-02-21 17:05] LABS: Albumin* 4.5 g/dL (3.3-5.0)
[2024-02-21 17:08] LABS: Alanine Aminotransferase* 24 U/L (4-35); Alkaline Phosphatase* 131 U/L (40-150); Aspartate Amino Transferase* 36 U/L (12-35); Bilirubin Direct* 0.4 mg/dL (0.0-0.5); Bilirubin Total* 0.7 mg/dL (0.1-1.5); Total Protein* 8.5 g/dL (6.0-8.3)
[2024-02-21 17:26] LABS: Troponin I* < 0.01 ng/mL (0.01-0.04)
== END 2024-02-21 17:47 | disposition home or self-care (01) ==
PROVIDERS: Emergency Provider Family Medicine; PCP Family Medicine
DX: R50.9 Fever, unspecified (principal)
CPT/HCPCS: 36415; 71046; 80048; 80076; 81001; 83605; 84484; 85025; 85651; 86140; 86308; 87040; 87086; 87631; 87651; 93005; 94761; 99284; A9270; J7030

== ENCOUNTER 2024-04-01 09:08 | Outpatient (RCR) | payer OTHER, SELFPAY ==
--- NOTE | 2024-04-01 09:40 | PC.NURSE ---
Patient here for IV start prior to radiation. Diagnosis: Melanoma.
== END 2024-09-28 23:59 | disposition home or self-care (01) ==
LOC: CCIC 09:08
PROVIDERS: PCP Family Medicine; Referring Provider Family Medicine; Visit Provider Clinical Nurse Specialist
DX: C79.89 Secondary malignant neoplasm of other specified sites (principal)
CPT/HCPCS: 99211

== ENCOUNTER 2024-05-10 13:29 | Emergency (ER) | payer OTHER, SELFPAY ==
[2024-05-10 13:41] VITALS: BP 160/106; PULSE 94; RESP 20; TEMP 36.3; O2SAT 100; BMI 32.9
--- NOTE | 2024-05-10 13:54 | CRLHL7_ITS ---
For Patients: As a result of the Cures Act, medical imaging exams and procedure reports are released immediately into your electronic medical record. You may view this report before your referring provider. If you have questions, please contact your health care provider. Indication: Trauma. Technique: The right knee, 3 views. Comparison: None. Findings: Bones: Alignment is normal. No fractures or bone lesions. Joint spaces: Unremarkable. Soft tissues: Mild soft tissue swelling about the knee, especially the medial aspect.. Impression: No acute fractures or dislocations identified. Dictated by Angie Ring MD @ 05/10/2024 3:19:48 PM (Electronically Signed)
--- NOTE | 2024-05-10 13:54 | CRLHL7_ITS ---
For Patients: As a result of the Cures Act, medical imaging exams and procedure reports are released immediately into your electronic medical record. You may view this report before your referring provider. If you have questions, please contact your health care provider. Indication: Stage IV melanoma. Fall, injury.. Technique: Left humerus, 2 views. Comparison: None. Findings: Bones: Alignment is normal. No acute fractures or dislocations identified. Subtle irregular diaphyseal rounded hypodensities in the marrow.. Joint spaces: Minimal diffuse degenerative changes.. Soft tissues: Unremarkable. Impression: No acute fractures or dislocations identified. Subtle irregular diaphyseal rounded hyperdensities in the marrow may be due to reactive marrow, metastases not excluded. Consider correlation with recent CT imaging. Dictated by Angie Ring MD @ 05/10/2024 3:22:53 PM (Electronically Signed)
--- NOTE | 2024-05-10 13:55 | ED_ITS ---
HPI - General Adult General Chief complaint: Unspecified Complaint, Adult Stated complaint: back surgery, cancer and fell, xrays, left arm Time Seen by Provider: 05/10/24 13:32 History of Present Illness HPI narrative: This 48-year-old female has metastatic melanoma with radiation treatments. Also she recently underwent a vertebroplasty. She is taking oxycodone and Tylenol for treatment of symptoms related to these matters. She states that she fell a couple nights ago by tripping over her bathrobe. She is reporting persistent pain in her left humerus extending from her left shoulder to her elbow. She also has pain in her left knee. Related Data Home Medications ?Medication ?Instructions ?Recorded ?Confirmed lisinopril 10 1 tab PO DAILY 04/02/23 04/19/23 mg-hydrochlorothiazide 12.5 mg tablet dabrafenib 75 mg capsule (Tafinlar) 150 mg PO BID 08/08/23 08/08/23 dexamethasone 1 mg tablet 2 mg PO BID 08/08/23 02/21/24 hydroxyzine HCl 25 mg tablet 25 - 50 mg PO QPM PRN anxiety 08/08/23 02/21/24 ondansetron HCl 8 mg tablet 8 mg PO Q8H PRN nausea/vomiting 08/08/23 08/08/23 trametinib 2 mg tablet (Mekinist) 2 mg PO DAILY 08/08/23 08/08/23 trazodone 50 mg tablet 100 mg PO QPM PRN 08/08/23 08/08/23 binimetinib 15 mg tablet (Mektovi) 45 mg PO BID 02/21/24 02/21/24 colchicine 0.6 mg tablet 1.2 mg PO DAILY 02/21/24 02/21/24 encorafenib 75 mg capsule PO 02/21/24 (Braftovi) ipilimumab IV 02/21/24 levothyroxine 100 mcg tablet 100 mcg PO QAM 02/21/24 02/21/24 nivolumab IV 02/21/24 omeprazole 20 mg capsule,delayed 20 mg PO DAILY 02/21/24 02/21/24 release prochlorperazine maleate 10 mg 10 mg PO DAILY 02/21/24 02/21/24 tablet Previous Rx's ?Medication ?Instructions ?Recorded diazepam 5 mg tablet (Valium) 5 mg PO ONCE #2 tabs 05/07/23 oxycodone 5 mg tablet 5 mg PO Q6H PRN pain #10 tabs 05/07/23 Allergies Allergy/AdvReac Type Severity Reaction Status Date / Time No Known Drug Allergies Allergy Unverified 08/08/23 18:49 Review of Systems Status of ROS: Reports: 10 or more systems reviewed and unremarkable except as noted in History and below Narrative: Constitutional: No fevers, no weight gain or loss. Eyes: No discharge. No vision changes. HENT: No congestion, no sore throat, no ear pain. Cardiovascular: No chest pain, no palpitations. Respiratory: No shortness of breath, no wheezes, no cough. Gastrointestinal: No abdominal pain, no vomiting, no diarrhea. Genitourinary: No dysuria, no hematuria. Musculoskeletal: Left upper arm pain and right knee pain. She states that she feels like her knee is unstable at times. Skin: No rashes, no pruritis. Neurological: No dizziness, weakness, sensory change, speech change. Endo/Heme/Allergies: No bruising or bleeding. No polydipsia. Pysch: no suicidality, no anxiety, no insomnia. All other systems reviewed and are negative. [facility] Medical History Hypertension ?I10 - Essential (primary) hypertension (ICD-10) Sprain of anterior cruciate ligament of left knee ?S83.512A - Sprain of anterior cruciate ligament of left knee, initial encounter (ICD-10) Social History Smoking Status: Never smoker Do you use any of these nicotine containing products: None How often do you have a drink containing alcohol: never How often do you have six or more drinks on one occasion: Never AUDIT-C Alcohol total score: 0 Non-prescribed substance use: denies use Exam Narrative: Exam Narrative: Constitutional: Well-developed, well-nourished, no acute distress. HEENT: Normocephalic, atraumatic. Neck: Normal range of motion. Nontender. Supple. Heart: Intact distal pulses. Lungs: No chest discomfort. No wheezes, rhonchi, or rales. Abdomen: Nontender. Back: Normal range of motion. Extremities: Left upper arm has diffuse pain radiating from a shoulder joint to the elbow joint. No point tenderness when palpating along these areas. No sign of deformity. The right knee similarly shows no sign of deformity or swelling but has diffuse pain. Ligament exam does not show any sign of laxity or instability. Skin: Intact. No rash. Warm. No erythema or pallor. Neurologic: No altered sensation. No weakness. Alert and oriented. Psychiatric: No suicidality. No anxiety or depression. No insomnia. Nursing notes and vitals signs are reviewed. Const: Vital Signs, click to edit/add: Vital Signs - 24 hr 05/10/24 13:41 Temperature 97.4 F L Pulse Rate [Pulse Oximeter] 94 Respiratory Rate 20 Blood Pressure [Ri t Upper Arm] 160/106 H Pulse Oximetry 100 Oxygen Delivery Me thod Room Air Course Vital Signs Vital signs: Initial Vital Signs Temperature 97.4 F L 05/10/24 13:41 Temperature Source Temporal Artery Scan 05/10/24 13:41 Pulse Rate 94 05/10/24 13:41 Pulse Rhythm Regular 05/10/24 13:41 Respiratory Rate 20 05/10/24 13:41 Blood Pressure 160/106 H 05/10/24 13:41 Blood Pressure Mean 124 H 05/10/24 13:41 Blood Pressure Position Sitting 05/10/24 13:41 Pulse Oximetry 100 05/10/24 13:41 Oxygen Delivery Method Room Air 05/10/24 13:41 Vital Signs Temperature 97.4 F L 05/10/24 13:41 Pulse Rate 94 05/10/24 13:41 Respiratory Rate 20 05/10/24 13:41 Blood Pressure 160/106 H 05/10/24 13:41 Pulse Oximetry 100 05/10/24 13:41 Oxygen Delivery Method Room Air 05/10/24 13:41 Temperature 97.4 F L 05/10/24 13:41 Pulse Rate 94 05/10/24 13:41 Respiratory Rate 20 05/10/24 13:41 Blood Pressure 160/106 H 05/10/24 13:41 Pulse Oximetry 100 05/10/24 13:41 Oxygen Delivery Method Room Air 05/10/24 13:41 Medical Decision Making MDM Narrative Medical decision making narrative: This patient comes in for evaluation of injuries from a fall that occurred a couple days ago. She is complaining of pain in her left upper arm and right knee. She does have melanoma with metastatic disease to the bone. X-ray is obtained of both of these areas and shows no acute fracture or malalignment however there are changes in the bone that are likely related to metastatic disease. This patient is taking oxycodone for pain relief. She is also using Tylenol. She does have a person was managing her pain through the [employer] system. She did receive a sling here and I did provide prescription for Flexeril from the [employer] machine. I also offered crutches if needed but she declined this. Imaging Data XR Humerus L: Radiologist's impression: No acute fractures or dislocations identified. Subtle irregular diaphyseal rounded hyperdensities in the marrow may be due to reactive marrow, metastases not excluded. Consider correlation with recent CT imaging. XR R Knee: Radiologist's impression: No acute fractures or dislocations identified. Subtle irregular diaphyseal rounded hyperdensities in the marrow may be due to reactive marrow, metastases not excluded. Consider correlation with recent CT imaging. Discharge Plan Discharge Clinical Impression: Arm pain, left, Acute pain of right knee, Melanoma Additional Instructions: Take medication as needed and indicated. Wear sling for additional symptomatic relief. Follow up with primary doctors for ongoing management. Return if worsening. Prescriptions: No Action trazodone 50 mg tablet 100 mg PO QPM PRN ondansetron HCl 8 mg tablet 8 mg PO Q8H PRN (Reason: nausea/vomiting) dexamethasone 1 mg tablet 2 mg PO BID hydroxyzine HCl 25 mg tablet 25 - 50 mg PO QPM PRN (Reason: anxiety) Tafinlar 75 mg capsule 150 mg PO BID Mekinist 2 mg tablet 2 mg PO DAILY prochlorperazine maleate 10 mg tablet 10 mg PO DAILY levothyroxine 100 mcg tablet 100 mcg PO QAM colchicine 0.6 mg tablet 1.2 mg PO DAILY Braftovi 75 mg capsule PO Mektovi 15 mg tablet 45 mg PO BID omeprazole 20 mg capsule,delayed release(DR/EC) 20 mg PO DAILY nivolumab [Opdivo] IV ipilimumab [Yervoy] IV lisinopril-hydrochlorothiazide 10-12.5 mg tablet 1 tab PO DAILY diazepam [Valium] 5 mg tablet 5 mg PO ONCE Qty: 2 0RF Rx Instructions: Take 1 tablet a half hour prior to MRI. May repeat x1. 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 oxycodone 5 mg tablet 5 mg PO Q6H PRN (Reason: pain) Qty: 10 0RF Follow Up/Referrals: Ondina Chávez MD [Primary Care Provider] -
== END 2024-05-10 15:40 | disposition home or self-care (01) ==
LOC: ED 13:58
PROVIDERS: Emergency Provider Emergency Medicine Emergency Medical Services; PCP Family Medicine
DX: M79.622 Pain in left upper arm (principal); M25.561 Pain in right knee
CPT/HCPCS: 73060; 73562; 99283; 99284

== ENCOUNTER 2024-07-18 18:46 | Outpatient (CLI) | payer OTHER, SELFPAY | END 2024-07-18 18:47 | disposition home or self-care (01) | PROVIDERS: PCP Family Medicine; Visit Provider Family Medicine | DX: M62.838 Other muscle spasm (principal); C79.31 Secondary malignant neoplasm of brain | CPT/HCPCS: A0425; A0427 ==